=== PATIENT | female | born 1940 | race Caucasian/White ===

== ENCOUNTER 2020-01-07 20:29 | Observation (INO) | payer OTHER ==
--- NOTE | 2020-01-08 00:41 | ER ---
Nurse's Notes [facility] Name: Patsy Tai Age: 79 yrs Sex: Female : 1940 Arrival Date: 01/07/2020 Time: 20:31 Bed 20 Private MD: Diagnosis: Fall on same level from slipping, tripping and stumbling;Effusion, right knee;Pain in unspecified knee-bilateral;Pain in right hip Presentation: 01/06 21:00 Chief complaint: Patient states: she fell on to a deck getting out of a boat. C/O R hip ah pain and lisandro knee pain. Coronavirus screen: Proceed with normal triage. Patient denies a cough. Patient denies shortness of breath or difficulty breathing. Patient denies measured and/or subjective temperature greater than 100.4F prior to today's visit. Patient denies travel on a cruise ship or to a country the [facility] currently lists as an affected area. Patient denies contact with known and/or suspected case of COVID-19. Ebola Screen: No symptoms or risks identified at this time. Initial Sepsis Screen: Does the patient meet any 2 criteria? No. Patient's initial sepsis screen is negative. Does the patient have a suspected source of infection? No. Patient's initial sepsis screen is negative. Risk Assessment: Do you want to hurt yourself or someone else? Patient reports no desire to harm self or others. Onset of symptoms was January 07, 2020. 21:00 Method Of Arrival: Wheelchair ah 21:00 Acuity: VALERIA 3 ah Historical: - Allergies: 21:07 Codeine; 21:07 Percodan; 21:07 Darvon; 21:07 Darvocet-N 100; 21:07 tramadol; 21:07 Hydrocodone-Acetaminophen; 21:07 Ancef; 21:07 Fentanyl; - PMHx: 21:07 Atrial Fib; Diabetes - IDDM; Fibromyalgia; - PSHx: 21:07 Hysterectomy; Appendectomy; cardiac stents x10; - Immunization history:: Adult Immunizations up to date. - Social history:: Smoking status: Patient denies any tobacco usage or history of. Patient uses alcohol, occasionally. Patient/guardian denies using street drugs. Screenin:32 Abuse screen: Denies threats or abuse. Nutritional screening: No deficits noted. ea Tuberculosis screening: No symptoms or risk factors identified. Fall Risk Fall in past 12 months (25 points). Assessment: 22:31 Reassessment: Returned from Radiology. ea 22:44 General: Appears in no apparent distress. Behavior is calm, cooperative, appropriate ea for age. Pain: Denies pain. Neuro: Level of Consciousness is awake, alert, obeys commands, Oriented to person, place, time, situation. Cardiovascular: Patient's skin is warm and dry. Respiratory: Airway is patent Respiratory effort is even, unlabored, Respiratory pattern is regular, symmetrical. Derm: Skin is pink, warm \T\ dry. 23:40 Reassessment: Patient and/or family updated on plan of care and expected duration. Pain ea level reassessed. Patient is alert, oriented x 3, equal unlabored respirations, skin warm/dry/pink. Returned from CT. 01/07 00:02 Reassessment: Patient and/or family updated on plan of care and expected duration. Pain ea level reassessed. Patient is alert, oriented x 3, equal unlabored respirations, skin warm/dry/pink. 01:55 Reassessment: Patient and/or family updated on plan of care and expected duration. Pain ea level reassessed. Patient is alert, oriented x 3, equal unlabored respirations, skin warm/dry/pink. Pt admitted to ER hold. 06:20 Reassessment: Patient and/or family updated on plan of care and expected duration. Pain ea level reassessed. Patient is alert, oriented x 3, equal unlabored respirations, skin warm/dry/pink. Report given to Deborah MATAMOROS, pt admitted to second floor, left ED via wheelchair per tech, tolerating well. Vital Signs: 01/06 21:00 BP 163 / 62; Pulse 69; Resp 20; Temp 98.3; Pulse Ox 92% on R/A; Weight 167.38 kg; Height 5 ft. 5 in. (165.10 cm); 22:45 BP 151 / 62; Pulse 63; Resp 18; Pulse Ox 97% on R/A; ea 23:00 BP 155 / 60; Pulse 69; Resp 18; Pulse Ox 98% on R/A; ea 01/07 00:30 BP 173 / 72; Pulse 62; Resp 18; Pulse Ox 98% ; ea 01/06 21:00 Body Mass Index 61.40 (167.38 kg, 165.10 cm) ED Course: 01/06 20:31 Patient arrived in ED. cf2 20:40 Maximo Wall PA is PHCP. cp 20:40 Sanford Zhang MD is Attending Physician. cp 20:59 Rahel Braswell, RN is Primary Nurse. 21:02 Triage completed. 21:34 Assisted to bedside commode. Cleaned of incontinence. sg 22:24 XRAY Knee LEFT 3 view In Process Unspecified. EDMS 22:24 XRAY Knee RIGHT 3 view In Process Unspecified. EDMS 22:24 XRAY Hip RIGHT 2 view In Process Unspecified. EDMS 22:32 Arm band placed on right wrist. Patient placed in an exam room, on a stretcher, on ea pulse oximetry. 22:32 Patient has correct armband on for positive identification. Bed in low position. Call ea light in reach. 23:45 CT Pelvis wo Cont In Process Unspecified. EDMS 23:45 Knee Right Wo Cont In Process Unspecified. EDMS 01/07 00:40 Jordon Sierra MD is Referral Physician. cp 01:10 Madonna Del Rosario MD is Hospitalizing Provider. cp 01:55 No provider procedures requiring assistance completed. Inserted saline lock: 22 gauge ea in left forearm, using aseptic technique. Patient admitted, IV remains in place. 04:53 Urine Microscopic Only Sent. oe Administered Medications: No medications were administered Outcome: 00:41 Discharge ordered by MD. cp 01:11 Decision to Hospitalize by Provider. cp 01:55 Admitted to ER Hold. Please see [facility] for further documentation. ea 01:55 Condition: stable 01:55 Instructed on the need for admit. 06:21 Patient left the ED. ea Signatures: Dispatcher [employer] EDMS Felipe Hathaway RN SHILOH Maximo Wall PA PA cp Espinosa, Orlando oe Antunez, Elena, RN RN Heather Oquendo cf2 Rahel Braswell, RN RN
--- NOTE | 2020-01-08 00:42 | EDPHYS ---
Physician Documentation [facility] Name: Patsy Tai Age: 79 yrs Sex: Female : 1940 Arrival Date: 01/07/2020 Time: 20:31 Bed 20 Private MD: ED Physician Sanford Zhang HPI: 01/06 21:05 This 79 yrs old Female presents to ER via Wheelchair with complaints of Fall cp Injury, Hip Pain, Knee Pain. 21:05 Details of fall: The patient fell from an upright position, while walking, and struck cp wooden deck. 21:05 Onset: The symptoms/episode began/occurred today. Associated injuries: The patient cp sustained right hip and right knee, decreased range of motion, painful injury, left knee. Patient reports she lost her balance getting off boat onto dock. Fell, landing on left leg. Patient complains of left knee twisting with fall. Historical: - Allergies: 21:07 Codeine; ah 21:07 Percodan; ah 21:07 Darvon; ah 21:07 Darvocet-N 100; 21:07 tramadol; 21:07 Hydrocodone-Acetaminophen; 21:07 Ancef; 21:07 Fentanyl; - PMHx: 21:07 Atrial Fib; Diabetes - IDDM; Fibromyalgia; - PSHx: 21:07 Hysterectomy; Appendectomy; cardiac stents x10; - Immunization history:: Adult Immunizations up to date. - Social history:: Smoking status: Patient denies any tobacco usage or history of. Patient uses alcohol, occasionally. Patient/guardian denies using street drugs. ROS: 21:10 Constitutional: Negative for body aches, chills, fever. cp 21:10 Eyes: Negative for injury, pain, redness, and discharge. cp 21:10 Cardiovascular: Negative for chest pain. 21:10 Respiratory: Negative for shortness of breath, wheezing. 21:10 Back: Negative for worsening pain. 21:10 MS/extremity: Positive for injury or acute deformity, decreased range of motion, pain, of the left hip and left knee and right knee, Negative for deformity, paresthesias. 21:10 Neuro: Negative for altered mental status, loss of consciousness, syncope. 21:10 All other systems are negative. Exam: 21:20 Constitutional: The patient appears in no acute distress, alert, awake, cp non-diaphoretic, non-toxic, well developed, well nourished, morbidly obese 21:20 Head/Face: Normocephalic, atraumatic. cp 21:20 Eyes: Periorbital structures: appear normal, Conjunctiva: normal, no exudate, no injection, Lids and lashes: appear normal, bilaterally. 21:20 ENT: External ear(s): are unremarkable, Nose: is normal, Mouth: Lips: moist, Oral mucosa: moist, Posterior pharynx: Airway: no evidence of obstruction, patent. 21:20 Neck: ROM/movement: is normal, is supple, without pain, no range of motions limitations. 21:20 Chest/axilla: Inspection: normal. 21:20 Cardiovascular: Rate: normal, Rhythm: regular. 21:20 Respiratory: the patient does not display signs of respiratory distress, Respirations: normal, no use of accessory muscles, no retractions, labored breathing, is not present, Breath sounds: are clear throughout, no decreased breath sounds. 21:20 Abdomen/GI: Inspection: obese Palpation: abdomen is soft and non-tender, in all quadrants. 21:20 Back: pain, no change from chronic pain, ROM is normal. 21:20 Musculoskeletal/extremity: Joints: the right hip displays pain at rest, painful range of motion, the right knee displays pain at rest, painful range of motion, swelling, tenderness, the left kneedisplays medial joint tenderness, Weight bearing: can bear weight with assistance only, uses walker. 21:20 Skin: cellulitis, is not appreciated, no rash present. 21:20 Neuro: Orientation: to person, place \T\ time. Mentation: is normal, Motor: moves all fours, strength is normal, Sensation: no obvious gross deficits. 01/07 01:30 ECG was reviewed by the Attending Physician. cp Vital Signs: 01/06 21:00 BP 163 / 62; Pulse 69; Resp 20; Temp 98.3; Pulse Ox 92% on R/A; Weight 167.38 kg; Height 5 ft. 5 in. (165.10 cm); 22:45 BP 151 / 62; Pulse 63; Resp 18; Pulse Ox 97% on R/A; ea 23:00 BP 155 / 60; Pulse 69; Resp 18; Pulse Ox 98% on R/A; ea 01/07 00:30 BP 173 / 72; Pulse 62; Resp 18; Pulse Ox 98% ; ea 01/06 21:00 Body Mass Index 61.40 (167.38 kg, 165.10 cm) ah MDM: 01/06 20:43 Patient medically screened. cp 21:30 Differential diagnosis: fracture, multiple trauma, sprain, strain. cp 01/07 00:50 ED course: VSS. Discussed results of xrays and CT that were negative for fracture with cp patient and daughter who was on phone. Patient and daughter expressed concerned about patient not being to bear weight on right leg and possibly falling if discharged. Daughter unwilling to come to ED for patient to be discharged. Will discuss possible admission with DR Del Rosario. 01:00 Physician consultation: Madonna Del Rosario MD was called at 01:00, was contacted at 01:00, cp regarding admission, would like further tests performed, labs drawn. 01:10 Data reviewed: vital signs, nurses notes, lab test result(s), EKG, radiologic studies, cp CT scan, plain films. 01/07 01:02 Order name: Comprehensive Metabolic Panel [facility] 01/07 01:02 Order name: Comprehensive Metabolic Panel [facility] 01/07 01:02 Order name: Creatine Phosphokinase [facility] 01/07 01:02 Order name: Creatine Phosphokinase [facility] 01/07 01:02 Order name: Creatine Phosphokinase [facility] 01/07 01:02 Order name: Creatine Phosphokinase [facility] 01/07 01:02 Order name: Creatine Phosphokinase [facility] 01/07 01:02 Order name: Lipid Profile [facility] 01/07 01:02 Order name: Lipid Profile [facility] 01/07 01:02 Order name: Troponin I [facility] 01/07 01:02 Order name: Troponin I [facility] 01/07 01:03 Order name: CBC with Automated Diff [facility] 01/07 01:03 Order name: CBC with Automated Diff [facility] 01/07 01:03 Order name: Protime (+INR) [facility] 01/06 21:04 Order name: XRAY Knee LEFT 3 view 01/06 21:04 Order name: XRAY Knee RIGHT 3 view 01/07 01:03 Order name: Protime (+INR) [facility] 01/07 01:03 Order name: PTT, Activated Partial Thromb EDPR 01/07 01:03 Order name: PTT, Activated Partial Thromb EDMS 01/07 01:04 Order name: Basic Metabolic Panel; Complete Time: 02:13 cp 01/07 02:13 Interpretation: Normal except: GLUC 221; GFR 64. cp 01/07 01:04 Order name: CBC with Diff; Complete Time: 01:55 cp 01/07 01:55 Interpretation: Normal except: RBC 5.28; HGB 15.4; HCT 46.4; ISAIAH% 77.3; LYM% 13.3. cp 01/07 01:04 Order name: LFT's; Complete Time: 02:13 cp 01/07 02:13 Interpretation: Normal except: GLOB 4.2; A/G 0.9. cp 01/07 01:04 Order name: Magnesium; Complete Time: 02:13 cp 01/07 01:04 Order name: NT PRO-BNP; Complete Time: 02:13 cp 01/07 01:04 Order name: PT-INR; Complete Time: 01:55 cp 01/07 01:04 Order name: Troponin (emerg Dept Use Only); Complete Time: 02:13 cp 01/07 02:13 Interpretation: TROPED < 0.02; Reviewed. cp 01/07 01:04 Order name: CK; Complete Time: 02:13 cp 01/07 01:04 Order name: Urine Microscopic Only; Complete Time: 06:00 01/07 04:52 Order name: Urine Dipstick--Ancillary (enter results) 2 01/07 05:28 Order name: Urine Dipstick-Ancillary; Complete Time: 06:00 EDPR 01/06 21:04 Order name: XRAY Hip RIGHT 2 view 01/06 22:44 Order name: CT Pelvis wo Cont cp 01/06 22:49 Order name: Knee Right Wo Cont EDMS 01/07 00:39 Order name: Avni wrap-joint: right knee; Complete Time: 01:11 cp 01/07 01:03 Order name: CONS Pharmacy Consult EDPR 01/07 01:03 Order name: Heart Healthy EDPR 01/07 01:03 Order name: EKG Electrocardiogram EDPR 01/07 01:03 Order name: EKG Electrocardiogram EDPR 01/07 01:04 Order name: EKG; Complete Time: 01:05 cp 01/07 01:04 Order name: Cardiac monitoring; Complete Time: 01:56 cp 01/07 01:04 Order name: EKG - Nurse/Tech; Complete Time: : cp 01/07 01:04 Order name: IV Saline Lock; Complete Time: cp 01/07 01:04 Order name: Labs collected and sent; Complete Time: cp 01/07 01:04 Order name: O2 Per Protocol; Complete Time: cp 01/07 01:04 Order name: O2 Sat Monitoring; Complete Time: cp 01/07 01:04 Order name: Urine Dipstick-Ancillary (obtain specimen); Complete Time: 04:52 cp EC:30 Rate is 69 beats/min. Rhythm is regular. [place] interval is prolonged at 226 msec. QRS cp interval is normal. QT interval is normal. T waves are Inverted in lead V2. Interpreted by me. Reviewed by me. Administered Medications: No medications were administered Disposition: 01/08/20 01:11 Hospitalization ordered by Madonna Del Rosario for Observation. Preliminary diagnosis are Fall on same level from slipping, tripping and stumbling, Effusion, right knee, Pain in unspecified knee - bilateral, Pain in right hip. - Bed requested for Telemetry/MedSurg (observation). - Status is Observation. ea - Condition is Stable. - Problem is new. - Symptoms are unchanged. Addendum: 01/12/2020 19:09 Co-signature as Attending Physician, Sanford ruiz Signatures: Dispatcher [employer] EDPR Laura Castro RN RN mw Lam, Pin, MD MD pkl Page, Corey PA Magaly Frances cp, RN RN ea Harris, Amy, RN RN Corrections: (The following items were deleted from the chart) 01/06 21:26 21:25 Test interpretation: by ED physician or midlevel provider: xrays of right foot cp negative for fracture, cp 22:48 22:44 CT RIGHT KNEE WO CONTRAST ordered. EDPR EDPR 23:43 21:05 Details of fall: The patient fell from an upright position, while walking, cp cp 01/07 00:39 00:12 Knee Immobilizer ordered. cp cp 01:05 00:41 01/08/2020 00:41 Discharged to Home. Impression: Effusion, right knee; Pain in cp right hip; Pain in unspecified knee - bilateral; Fall on same level from slipping, tripping and stumbling. Condition is Stable. Forms are Medication Reconciliation Form, Thank You Letter, Antibiotic Education, Prescription Opioid Use. Follow up: Jordon Sierra; When: 2 - 3 days; Reason: right knee injury. Problem is new. Symptoms have improved. cp 01:16 01:11 Hospitalization Ordered by Madonna Del Rosario MD for Observation. Preliminary mw diagnosis is Fall on same level from slipping, tripping and stumbling; Effusion, right knee; Pain in unspecified knee - bilateral; Pain in right hip. Bed requested for Telemetry/MedSurg (observation). Status is Observation. Condition is Stable. Problem is new. Symptoms are unchanged. cp 05:26 01:16 01/08/2020 01:11 Hospitalization Ordered by Madonna Del Rosario MD for Observation. mw Preliminary diagnosis is Fall on same level from slipping, tripping and stumbling; Effusion, right knee; Pain in unspecified knee - bilateral; Pain in right hip. Bed requested for [facility] ER HOLD. Status is Observation. Condition is Stable. Problem is new. Symptoms are unchanged. mw 06:21 05:26 01/08/2020 01:11 Hospitalization Ordered by Madonna Del Rosario MD for Observation. ea Preliminary diagnosis is Fall on same level from slipping, tripping and stumbling; Effusion, right knee; Pain in unspecified knee - bilateral; Pain in right hip. Bed requested for Telemetry/MedSurg (observation). Status is Observation. Condition is Stable. Problem is new. Symptoms are unchanged.
[2020-01-08] MEDS ORDERED: ACETAMINOPHEN 500 MG TAB PO PRN (00:58)
[2020-01-08] MEDS ORDERED: ONDANSETRON 4 MG/2 ML VIAL IV PRN (00:58)
[2020-01-08] MEDS ORDERED: NA CHLORIDE 0.9% 1,000 ML IV SCH (01:00)
[2020-01-08 01:37] LABS: Basophils % 0.8 % (0-1.3); Hematocrit 46.4 % (36.0-45.0); Lymphocytes % 13.3 % (15.3-44.8); MPV 8.4 fL (7.6-11.3); RBC Red Blood Cell Count 5.28 M/uL (3.86-4.86)
[2020-01-08 01:45] LABS: Protime INR 0.98
[2020-01-08 01:58] LABS: ALT/SGPT 23 U/L (12-78); AST/SGOT 17 U/L (15-37); Albumin 3.6 g/dL (3.4-5.0); Alkaline Phosphatase 75 U/L (45-117); BUN Blood Urea Nitrogen 12 mg/dL (7-18); Bicarbonate 25 mmol/L (21-32); Bilirubin Direct 0.2 mg/dL (0-0.2); Bilirubin Total 0.7 mg/dL (0.2-1.0); Creatine Phosphokinase 83 U/L (26-192); Glucose Level 221 mg/dL (74-106); Magnesium 1.9 mg/dL (1.8-2.4); NT PRO-BNP 350 pg/mL (<450); Potassium 4.2 mmol/L (3.5-5.1); Protein, Total 7.8 g/dL (6.4-8.2); Sodium Level 140 mmol/L (136-145); Troponin (Emerg Dept Use Only) < 0.02 ng/mL (0.0-0.045)
[2020-01-08] MEDS ORDERED: ACETAMINOPHEN 500 MG TAB ONE (02:39)
[2020-01-08] MEDS ORDERED: NA CHLORIDE 0.9% 1,000 ML ONE (05:15)
[2020-01-08] MEDS ORDERED: MORPHINE 2 MG/ML SYR ONE (05:15)
[2020-01-08] MEDS: MORPHINE 2 MG/ML SYR IV PRN ×2 (05:20→17:03)
[2020-01-08 05:27] LABS: Urine Blood TRACE (NEG); Urine Glucose TRACE (NEG); Urine Protein NEGATIVE (NEG); Urine Specific Gravity >1.030 (1.005-1.030); Urine pH 5.5 (5.0-7.0)
[2020-01-08 05:29] LABS: Urine Bacteria LOADED /HPF (<20); Urine Culture Reflex Order REFLEXED; Urine RBC <5 /HPF (NONE SEEN)
[2020-01-08] MEDS ORDERED: ONDANSETRON 4 MG/2 ML VIAL ONE (05:30)
[2020-01-08 06:04] LABS: Creatine Phosphokinase 82 U/L (26-192); HDL Cholesterol 38 mg/dL (40-60); LDL Cholesterol, Calculated 81 (<130); Troponin I < 0.02 ng/mL (0.0-0.045)
[2020-01-08 06:52] VITALS: BMI 59.5
[2020-01-08] MEDS ORDERED: PNEUMOCOCCAL VACCINE 0.5 ML IMVAC ONE (08:00)
[2020-01-08] MEDS ORDERED: PRAMIPEXOLE 0.25 MG TAB PO PRN (08:03)
--- NOTE | 2020-01-08 08:10 | P.HP ---
Patient History Date of Service: 01/08/20 Reason for admission: Status post fall with left hip pain and nonambulatory History of Present Illness: Patient is 79-year-old female who recently moved in with her daughter from in assisted living. She was no longer able to care for herself even in the assisted living component sore daughter brought her home to help her. She had been doing okay getting along on her scooter until she fell yesterday. She fell on her left hip and was having severe pain. She was not able to ambulate any longer. She normally is able to ambulate about 10-20 feet. However, she is not able to move since the fall. Her daughter was not able to help her at the house so she brought her into the emergency room for evaluation. Patient had multiple diagnostic studies and there was no fracture noted. However, patient did have some labs which indicated a UTI. At this time, patient be admitted to the hospital for pain control and physical therapy. Patient will also need placement either an inpatient rehab or long-term facility. Continue with IV antibiotic therapy as well. Await physical therapy and case management assistance in patient's care Allergies aspirin [From Percodan] Allergy (Verified 01/08/20 02:05) Anaphylaxis cefazolin [From Ancef] Allergy (Verified 01/08/20 02:05) Anaphylaxis codeine Allergy (Verified 01/08/20 02:05) Anaphylaxis fentanyl Allergy (Verified 01/08/20 02:05) Anaphylaxis hydrocodone Allergy (Verified 01/08/20 02:05) Anaphylaxis oxycodone [From Percodan] Allergy (Verified 01/08/20 02:05) Anaphylaxis propoxyphene [From Darvon] Allergy (Verified 01/08/20 02:05) Anaphylaxis tramadol Allergy (Verified 01/08/20 02:05) Anaphylaxis Home Medications: Alirocumab [Praluent Pen] 75 mg SQ SEECOM 01/08/20 Aspirin [Aspirin EC 325 MG] 325 mg PO DAILY 01/08/20 Donepezil HCl [Aricept] 10 mg PO DAILY 01/08/20 Ergocalciferol (Vitamin D2) [Vitamin D2] 50,000 unit PO SEECOM 01/08/20 Insulin Lispro [Humalog Kwikpen U-100] 60 unit SQ AC 01/08/20 Levothyroxine [Synthroid] 75 mcg PO [id number] 01/08/20 Levothyroxine [Synthroid] 100 mcg PO [id number] 01/08/20 Metoprolol Succinate [Toprol Xl] 25 mg PO BID 01/08/20 Pramipexole [Mirapex] 0.5 mg PO BEDTIME PRN 01/08/20 - Past Medical/Surgical History -: Type 2 diabetes -: Hypertension -: Restless leg syndrome -: Dementia -: Atrial fibrillation -: Coronary artery disease -: Hysterectomy -: Appendectomy -: Cardiac catheterization with stent placement times 10 - Family History Father Family History: Reviewed- Non-Contributory - Social History Smoking Status: Never smoker Alcohol use: No CD- Drugs: No Review of Systems 10-point ROS is otherwise unremarkable Physical Examination - Vital Signs Temperature: 98.4 F Blood Pressure: 164/74 Pulse: 72 Respirations: 20 Pulse Ox (%): 93 - Physical Exam General: Alert, In no apparent distress, Oriented x3 HEENT: Atraumatic, PERRLA, Mucous membr. moist/pink, EOMI, Sclerae nonicteric Neck: Supple, 2+ carotid pulse no bruit, No LAD, Without JVD or thyroid abnormality Respiratory: Clear to auscultation bilaterally, Normal air movement Cardiovascular: Regular rate/rhythm, Normal S1 S2, Systolic murmur Gastrointestinal: Normal bowel sounds, Soft and benign, Non-distended, No tenderness Musculoskeletal: No clubbing, No tenderness, Swelling Integumentary: No rashes Neurological: Normal speech, Normal tone, Sensation intact, Cranial nerves 3-12 intact, Abnormal gait, Abnormal strength, Abnormal affect Lymphatics: No axilla or inguinal lymphadenopathy - Studies Laboratory Data (last 24 hrs) 01/08/20 01:28: PT 11.6, INR 0.98 01/08/20 01:28: WBC 7.5, Hgb 15.4 H, Hct 46.4 H, Plt Count 169 01/08/20 01:28: Sodium 140, Potassium 4.2, BUN 12, Creatinine 0.85, Glucose 221 H, Magnesium 1.9, Total Bilirubin 0.7, AST 17, ALT 23, Alkaline Phosphatase 75 Assessment & Plan - Problems (Diagnosis) (1) Status post fall Current Visit: Yes Status: Acute (2) Intractable pain Current Visit: Yes Status: Acute (3) Hip pain, left Current Visit: Yes Status: Acute (4) Coronary artery disease Current Visit: Yes Status: Acute (5) Atrial fibrillation Current Visit: Yes Status: Acute (6) Dementia Current Visit: Yes Status: Acute (7) Acute UTI Current Visit: Yes Status: Acute - Plan Plan: 1. Pain control 2. Physical therapy consultation 3. Strict blood pressure and blood sugar control 4. Resume cardiac meds 5. IV antibiotic therapy 6. Continue medication for restless leg syndrome 7. GI and DVT prophylaxis Discharge Plan: Home Plan to discharge in: 48 Hours - Advance Directives Does patient have a Living Will: No Does patient have a Durable POA for Healthcare: No - Code Status/Comfort Care Code Status Assessed: Yes Code Status: Full Code Critical Care: No Time Spent Managing PTS Care (In Minutes): 45
--- NOTE | 2020-01-08 08:26 | RAD REPORT ---
EXAM DESCRIPTION: RAD - Knee Right 3 View - 01/07/2020 10:24 pm CLINICAL HISTORY: Right knee pain status post injury FINDINGS: A small to moderate joint effusion. 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 No fracture or dislocation seen. If patient continues have symptoms to suggest an occult fracture, ligamentous or meniscal injury then MRI would be recommended
--- NOTE | 2020-01-08 08:27 | RAD REPORT ---
EXAM DESCRIPTION: RAD - Knee Left 3 View - 01/07/2020 10:24 pm CLINICAL HISTORY: Left knee pain status post injury FINDINGS: No fracture or dislocation is seen. Mild to moderate medial joint space narrowing.
--- NOTE | 2020-01-08 08:28 | RAD REPORT ---
EXAM DESCRIPTION: RAD - Hip Right 2 View - 01/07/2020 10:24 pm CLINICAL HISTORY: Right hip pain FINDINGS: No fracture or dislocation is seen. Moderate osteoarthritis involves the right hip
[2020-01-08] MEDS ORDERED: CEFTRIAXONE 1 GM/NS 50 ML 1 GM/50 ML BAG IV SCH (09:00)
[2020-01-08] MEDS ORDERED: HOME MED 1 EA UNK (Aspirin [Aspirin Ec 325 Mg] 325 MG) PO SCH (09:00)
[2020-01-08] MEDS ORDERED: DRISDOL (VITAMIN D=ERGOCALCIFEROL) 50000 UNIT CAP PO SCH (09:00)
--- NOTE | 2020-01-08 09:23 | RAD REPORT ---
EXAM DESCRIPTION: - Pelvis Wo Cont - 01/08/2020 5:14 am CLINICAL HISTORY: The patient is 79 years old and is Female; right hip pain TECHNIQUE: Axial computed tomography images of the pelvis without intravenous contrast. Sagittal a nd coronal reformatted images were created and reviewed. This CT exam was performed using one or mo re of the following dose reduction techniques: automated exposure control, adjustment of the mA and /or kV according to patient size, and/or use of iterative reconstruction technique. COMPARISON: No relevant prior studies available. FINDINGS: LIMITATIONS: Suboptimal study secondary to artifact related to patient body habitus. BOWEL: Unremarkable. No obstruction. No mucosal thickening. APPENDIX: No findings to suggest acute appendicitis. INTRAPERITONEAL SPACE: Unremarkable. No free air. No significant fluid collection. BLADDER: Unremarkable. No stones. REPRODUCTIVE: Unremarkable as visualized. BONES/JOINTS: The femoral heads are well located. The SI joints and pubic symphysis are intact. There are degenerative changes of the spine. Minimal degenerative change of the bilateral hips is not ed. There is no acute fracture or dislocation. SOFT TISSUES: The soft tissues are normal. VASCULATURE: Unremarkable. No lower abdominal aortic aneurysm. LYMPH NODES: Unremarkable. No enlarged lymph nodes. IMPRESSION: No evidence of fracture or dislocation. Electronically signed by: Maria Antonia Weaver MD 01/08/2020 12:03 AM CDT Due to temporary technical issues with the PACS/Fluency reporting system, reports are being signed by the in house radiologist as a courtesy to ensure prompt reporting. The interpreting radiologist is f ully responsible for the content of the
--- NOTE | 2020-01-08 09:27 | RAD REPORT ---
EXAM DESCRIPTION: Alisia Dubois Cont01/08/2020 5:14 am CLINICAL HISTORY: The patient is 79 years old and is Female; fall, knee pain TECHNIQUE: Axial computed tomography images of the right knee without intravenous contrast. Sagitt al and coronal reformatted images were created and reviewed. This CT exam was performed using one o r more of the following dose reduction techniques: automated exposure control, adjustment of the mA and/or kV according to patient size, and/or use of iterative reconstruction technique. COMPARISON: No relevant prior studies available. FINDINGS: BONES/JOINTS: A suprapatellar joint effusion is present. Degenerative change of the kn ee is noted with tricompartmental joint space narrowing, most prominent along the medial compartment. Spurring of the bilateral tibial plateaus and femoral condyles is noted. There is no acute fracture or dislocation. SOFT TISSUES: Unremarkable. IMPRESSION: Degenerative change of the knee with associated joint effusion. Electronically signed by: Maria Antonia Weaver MD 01/08/2020 12:06 AM CDT Due to temporary technical issues with the PACS/Fluency reporting system, reports are being signed by the in house radiologist as a courtesy to ensure prompt reporting. The interpreting radiologist is f ully responsible for the content of the report.
[2020-01-08] MEDS: METOPROLOL XL 25 MG TAB PO SCH ×2 (10:23→21:17)
[2020-01-08] MEDS: ASPIRIN EC 325 MG TABLET PO SCH (10:23)
[2020-01-08] MEDS: levoFLOXacin 500 MG TAB PO SCH (10:23)
[2020-01-08] MEDS ORDERED: INSULIN LISPRO 100 UNIT/1 ML SQ SCH (11:30)
[2020-01-08] MEDS: HUMALOG MIX SQ SCH ×2 (12:17→16:08)
[2020-01-08] MEDS: FUROSEMIDE 40 MG/4 ML VIAL IV ONE ×2 (13:50→16:07)
--- NOTE | 2020-01-08 13:53 | P.PN ---
Subjective Date of Service: 01/08/20 Chief Complaint: Status post fall with left hip pain and nonambulatory Subjective: No new changes, No C/O voiced Physical Examination - Vital Signs Temperature: 98.4 F Blood Pressure: 164/74 Pulse: 72 Respirations: 20 Pulse Ox (%): 93 - Physical Exam General: Alert, In no apparent distress, Oriented x3 HEENT: Atraumatic, Normocephalic Neck: Supple, 2+ carotid pulse no bruit, JVD not distended Respiratory: Normal air movement, Crackles/rales Cardiovascular: Normal pulses, Regular rate/rhythm, Normal S1 S2 Gastrointestinal: Normal bowel sounds, Soft and benign Musculoskeletal: Swelling Integumentary: No rashes, No breakdown Neurological: Normal speech, Normal strength at 5/5 x4 extr, Normal tone - Studies Laboratory Data (last 24 hrs) 01/08/20 01:28: PT 11.6, INR 0.98 01/08/20 01:28: WBC 7.5, Hgb 15.4 H, Hct 46.4 H, Plt Count 169 01/08/20 01:28: Sodium 140, Potassium 4.2, BUN 12, Creatinine 0.85, Glucose 221 H, Magnesium 1.9, Total Bilirubin 0.7, AST 17, ALT 23, Alkaline Phosphatase 75 Assessment & Plan - Problems (Diagnosis) (1) CHF exacerbation Current Visit: Yes Status: Acute (2) Acute UTI Current Visit: Yes Status: Acute (3) Atrial fibrillation Current Visit: Yes Status: Acute (4) Intractable pain Current Visit: Yes Status: Acute Physician Review: Patient Assessed, Agree with Above Assessment and Plan Physician Review Additional Text: Impression /Plan UTI-follow pending urine culture, continue empirical antibiotics - given allergy with switched to Levaquin HTN -CONTINUE BLOOD PRESSURE REGIMEN LOWER EXTREMITY EDEMA/MIKE IS ACTRESS/CHRONIC HOME O2 USE-LIKELY DUE TO DIASTOLIC CHF -WILL RESTART DIURETICS THAT GIVE LASIX 40 MG X1 Chronic pain syndrome-continue pain regimen DVT prophylaxis-subcutaneous heparin
[2020-01-08] MEDS: AMIODARONE HCL 200 MG TAB PO SCH (16:07)
[2020-01-08] MEDS: AMLODIPINE 5 MG TAB PO SCH (16:07)
--- NOTE | 2020-01-08 20:12 | EKG ---
Test Date: 2020-01-08 Test Time: 08:10:49 Slurry Man: YOLANDA MEASUREMENT RESULTS: Intervals: Rate: 63 OR: 214 QRSD: 72 QT: 444 QTc: 454 [place]: P: OR: 214 QRS: -56 T: 72 INTERPRETIVE STATEMENTS: Sinus rhythm with 1st degree AV block Left axis deviation Low voltage QRS Septal infarct, age undetermined Possible Lateral infarct, age undetermined Abnormal ECG Compared to ECG 01/08/2020 01:21:50 Low QRS voltage now present Myocardial infarct finding still present Electronically Signed On 01-08-20 20:10:59 CDT by Stevenson Leary
--- NOTE | 2020-01-08 20:14 | EKG ---
Test Date: 2020-01-08 Test Time: 01:21:50 Warehouse Checker: SWG MEASUREMENT RESULTS: Intervals: Rate: 69 TX: 226 QRSD: 86 QT: 412 QTc: 441 [place]: P: 16 TX: 226 QRS: -49 T: 58 INTERPRETIVE STATEMENTS: Sinus rhythm with 1st degree AV block Left axis deviation Septal infarct, age undetermined Possible Lateral infarct, age undetermined Abnormal ECG No previous ECG available for comparison Electronically Signed On 01-08-20 20:11:08 CDT by Stevenson Leary
[2020-01-08] MEDS: DONEPEZIL HCL 5 MG TAB PO SCH (21:17)
[2020-01-08] MEDS: APIXABAN 5 MG TABLET PO SCH (21:17)
[2020-01-09 04:26] LABS: Protime INR 1.26
[2020-01-09 04:27] LABS: Absolute Lymphocytes (CBC) 1.4 K/uL (0.7-4.9); Basophils % 0.6 % (0-1.3); Hematocrit 37.6 % (36.0-45.0); MPV 8.4 fL (7.6-11.3); RBC Red Blood Cell Count 4.24 M/uL (3.86-4.86)
[2020-01-09 04:32] LABS: Albumin 2.9 g/dL (3.4-5.0); Bilirubin Total 0.6 mg/dL (0.2-1.0); Potassium 4.2 mmol/L (3.5-5.1); Protein, Total 6.3 g/dL (6.4-8.2)
[2020-01-09] MEDS: LEVOTHYROXINE SOD 0.075 MG TAB PO SCH (05:49)
[2020-01-09] MEDS: LEVOTHYROXINE SOD 0.1 MG TAB PO SCH (05:49)
[2020-01-09] MEDS: HUMALOG MIX SQ SCH ×3 (07:30→16:30)
[2020-01-09] MEDS: METOPROLOL XL 25 MG TAB PO SCH ×2 (08:13→20:58)
[2020-01-09] MEDS: APIXABAN 5 MG TABLET PO SCH ×2 (08:13→20:59)
[2020-01-09] MEDS: AMIODARONE HCL 200 MG TAB PO SCH (08:13)
[2020-01-09] MEDS: levoFLOXacin 500 MG TAB PO SCH (08:13)
[2020-01-09] MEDS: AMLODIPINE 5 MG TAB PO SCH (08:14)
[2020-01-09] MEDS: ASPIRIN EC 325 MG TABLET PO SCH (10:36)
--- NOTE | 2020-01-09 12:14 | P.PN ---
Subjective Date of Service: 01/09/20 Chief Complaint: Status post fall with left hip pain and nonambulatory Subjective: No new changes, No C/O voiced, Working w/ PT (Patient seen today, states she feels much better. -she is still not happy with being started on diuretics -noted transient decrease in O2 sat with ambulation -ambulation limited by patient complain of knee pain, physical therapy discuss with recommend inpatient acute rehab) Physical Examination - Vital Signs Temperature: 99.2 F Blood Pressure: 147/55 Pulse: 68 Respirations: 16 Pulse Ox (%): 91 - Physical Exam General: In no apparent distress, Oriented x3, Other (nc02) HEENT: Atraumatic, Normocephalic Neck: 2+ carotid pulse no bruit, JVD not distended Respiratory: Clear to auscultation bilaterally, Normal air movement Cardiovascular: Normal pulses, Regular rate/rhythm, Normal S1 S2 Gastrointestinal: Normal bowel sounds, Soft and benign, Non-distended Musculoskeletal: No clubbing, No swelling Neurological: Normal speech, Normal strength at 5/5 x4 extr External genitalia: Edema Assessment And Plan - Current Problems (Diagnosis) (1) CHF exacerbation Current Visit: Yes Status: Acute (2) Acute UTI Current Visit: Yes Status: Acute (3) Atrial fibrillation Current Visit: Yes Status: Acute (4) Intractable pain Current Visit: Yes Status: Acute Physician Review: Patient Assessed, Agree with Above Assessment and Plan Physician Review Additional Text: Impression /Plan Gram UTI-follow pending culture, continue Levaquin Weakness with gait instability-continue PT, follow case management for rehab HTN -controlled BP now Lower extremity edema/ CHRONIC HOME O2 USE-LIKELY DUE TO DIASTOLIC CHF -obtain echocardiogram -continue low-dose diuretics with Lasix 40 mg daily -fluid restriction advice and discussed with patient today -follow daily weights Chronic pain syndrome-continue pain regimen DVT prophylaxis-subcutaneous heparin Dc to SNF when bed available
[2020-01-09] MEDS ORDERED: FUROSEMIDE 40 MG TABLET PO SCH (17:00)
[2020-01-09] MEDS: DONEPEZIL HCL 5 MG TAB PO SCH (20:59)
[2020-01-10] MEDS: LEVOTHYROXINE SOD 0.075 MG TAB PO SCH (05:18)
[2020-01-10] MEDS: LEVOTHYROXINE SOD 0.1 MG TAB PO SCH (05:18)
[2020-01-10] MEDS: HUMALOG MIX SQ SCH ×3 (07:30→16:30)
[2020-01-10] MEDS: ASPIRIN EC 325 MG TABLET PO SCH (08:43)
[2020-01-10] MEDS: APIXABAN 5 MG TABLET PO SCH (08:43)
[2020-01-10] MEDS: levoFLOXacin 500 MG TAB PO SCH (08:44)
[2020-01-10] MEDS: METOPROLOL XL 25 MG TAB PO SCH (08:44)
[2020-01-10] MEDS: AMLODIPINE 5 MG TAB PO SCH (08:44)
[2020-01-10] MEDS: AMIODARONE HCL 200 MG TAB PO SCH (08:44)
[2020-01-10] MEDS ORDERED: FUROSEMIDE 40 MG TABLET PO SCH (09:00)
[2020-01-10 09:22] VITALS: O2SAT 93
--- NOTE | 2020-01-10 12:25 | P.PN ---
Subjective Date of Service: 01/10/20 Chief Complaint: Status post fall with left hip pain and nonambulatory Subjective: No new changes, No C/O voiced -feels better, having some constipation -Refusing Lasix although states her last echo was 35% Physical Examination - Vital Signs Temperature: 98.4 F Blood Pressure: 147/66 Pulse: 60 Respirations: 18 Pulse Ox (%): 92 - Physical Exam General: Alert, In no apparent distress, Oriented x3, Obese HEENT: Atraumatic, Normocephalic, PERRLA Neck: Supple, 2+ carotid pulse no bruit Respiratory: Normal air movement, Crackles/rales Cardiovascular: Normal pulses, Regular rate/rhythm, Normal S1 S2 Gastrointestinal: Normal bowel sounds, Soft and benign Musculoskeletal: No clubbing, Swelling Integumentary: No erythema, No warmth Neurological: Normal speech, Normal tone, Sensation intact External genitalia: Edema Assessment & Plan - Problems (Diagnosis) (1) CHF exacerbation Current Visit: Yes Status: Acute (2) Acute UTI Current Visit: Yes Status: Acute (3) Atrial fibrillation Current Visit: Yes Status: Acute (4) Intractable pain Current Visit: Yes Status: Acute Physician Review: Patient Assessed, Agree with Above Assessment and Plan Physician Review Additional Text: Impression /Plan Gram UTI-urine culture with mixed karena, continue Levaquin for another 2 days Weakness with gait instability-continue PT, follow case management for rehab HTN -controlled BP now Lower extremity edema/ CHRONIC HOME O2 USE-with reported systolic CHF -follow repeat echo today -if ST low EF, continue Lasix 20 mg b.i.d. Chronic pain syndrome-continue pain regimen DVT prophylaxis-subcutaneous heparin Dc to rehab when bed available Time Spent Managing Pts Care (In Minutes): 35
--- NOTE | 2020-01-10 12:37 | P.DS ---
Admission Date: 01/08/20 Discharge Date: 01/10/20 Disposition: TRANSFER TO INPATIENT REHAB Discharge Condition: FAIR Reason for Admission: Status post fall with left hip pain and nonambulatory - Problems (1) CHF exacerbation Current Visit: Yes Status: Acute (2) Acute UTI Current Visit: Yes Status: Acute (3) Atrial fibrillation Current Visit: Yes Status: Acute (4) Intractable pain Current Visit: Yes Status: Acute Hospital Course: Patient with past medical history of HTN, diabetes mellitus on insulin, atrial fibrillation on chronic anticoagulation, dementia, history of systolic CHF with self-reported echo from 4 years ago by a audio tape librarian out of town of 35%, she states she was put on diuretics but she said stopped taking due to feeling unwell. She was admitted now for presumed weakness after having a fall at home. On admission, a urinalysis was suggestive of UTI. She was started on empirical antibiotics with Levaquin. Her urine culture grew mixed karena. Antibiotics was continued. Patient was noted with recurrent hypoxia with minimize action with low O2 sat down to the 80s. Clinically she was noted with fluid overload with 2+ pedal edema as well as bilateral basal crepitation, she was started on Lasix which she repeatedly kept refusing. She was started on physical therapy and has been accepted to rehab. Echocardiogram has been obtained. Counseling and needs to take her furosemide has been discussed. Fluid restriction to less than 1.2 L per day and low-salt diet also advised Vital Signs/Physical Exam: Temp Pulse Resp BP Pulse Ox 98.4 F 60 18 147/66 H 92 01/10/20 12:25 01/10/20 12:25 01/10/20 12:25 01/10/20 12:25 01/10/20 12:25 General: Alert, In no apparent distress, Oriented x3, Obese HEENT: Atraumatic, Normocephalic, PERRLA Neck: 2+ carotid pulse no bruit, JVD not distended Respiratory: Normal air movement, Crackles/rales Cardiovascular: Normal pulses, Regular rate/rhythm, Normal S1 S2, Edema Gastrointestinal: Normal bowel sounds, Soft and benign, Non-distended, No rebound, No guarding Musculoskeletal: No clubbing, Swelling Integumentary: No rashes, No breakdown Neurological: Normal speech, Normal strength at 5/5 x4 extr, Normal tone Laboratory Data at Discharge: WBC 6.8 K/uL (4.3-10.9) 01/09/20 03:53 Hgb 12.8 g/dL (12.0-15.0) D 01/09/20 03:53 Hct 37.6 % (36.0-45.0) D 01/09/20 03:53 Plt Count 145 K/uL (152-406) L 01/09/20 03:53 PT 14.8 SECONDS (9.5-12.5) H 01/09/20 03:53 INR 1.26 01/09/20 03:53 APTT 34.9 SECONDS (24.3-36.9) 01/09/20 03:53 Sodium 141 mmol/L (136-145) 01/09/20 03:53 Potassium 4.2 mmol/L (3.5-5.1) 01/09/20 03:53 BUN 16 mg/dL (7-18) 01/09/20 03:53 Creatinine 0.95 mg/dL (0.55-1.3) 01/09/20 03:53 Glucose 165 mg/dL (74-106) H 01/09/20 03:53 Magnesium 1.9 mg/dL (1.8-2.4) 01/08/20 01:28 Total Bilirubin 0.6 mg/dL (0.2-1.0) 01/09/20 03:53 AST 9 U/L (15-37) L 01/09/20 03:53 ALT 17 U/L (12-78) 01/09/20 03:53 Alkaline Phosphatase 60 U/L (45-117) 01/09/20 03:53 Troponin I < 0.02 ng/mL (0.0-0.045) 01/08/20 05:15 Triglycerides 126 mg/dL (<150) 01/08/20 05:15 Cholesterol 144 mg/dL (<200) 01/08/20 05:15 HDL Cholesterol 38 mg/dL (40-60) L 01/08/20 05:15 Cholesterol/HDL Ratio 3.79 01/08/20 05:15 Home Medications: Alirocumab [Praluent Pen] 75 mg SQ SEECOM 01/08/20 Amiodarone HCl [Cordarone*] 200 mg PO DAILY 01/08/20 Apixaban [Eliquis *] 5 mg PO BID 01/08/20 Aspirin [Aspirin EC 325 MG] 325 mg PO DAILY 01/08/20 Donepezil HCl [Aricept] 10 mg PO DAILY 01/08/20 Ergocalciferol (Vitamin D2) [Vitamin D2] 50,000 unit PO SEECOM 01/08/20 Insulin Lispro [Humalog Kwikpen U-100] 60 unit SQ AC 01/08/20 Levothyroxine [Synthroid*] 75 mcg PO [id number] 01/08/20 Metoprolol Succinate [Toprol Xl*] 25 mg PO BID 01/08/20 Pramipexole [Mirapex*] 0.5 mg PO BEDTIME PRN 01/08/20 Furosemide [Lasix] 20 mg PO BID #60 tablet 01/10/20 New Medications: Furosemide [Lasix] 20 mg PO BID #60 tablet Diet: Low sodium Activity: Ad sondra Time spent managing pt's care (in minutes): 35
[2020-01-10] MEDS ORDERED: DOXYCYCLINE 100 MG CAP PO SCH (15:30)
[2020-01-10 16:33] VITALS: BP 140/60; TEMP 98.5
--- NOTE | 2020-01-11 07:58 | ECHO ---
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 DOPPLER/COLOR FLOW: NORMAL. COMMENTS: TECHNICALLY DIFFICULT STUDY. NORMAL LEFT VENTRICULAR SIZE AND FUNCTION - EJECTION FRACTION 65%. MITRAL ANNULAR CALCIFICATION. AORTIC SCLEROSIS. TECHNOLOGIST: FRED PAGE
[2020-01-21] MEDS ORDERED: ALIROCUMAB SQ SCH (09:00)
== END 2020-01-10 18:53 ==
LOC: ER 20:29 → ERHOLD 01-08 02:31 → 2ND 01-08 05:41
PROVIDERS: ADMIT Hospitalist; ATTEND Internal Medicine
DX: I11.0 Hypertensive heart disease with heart failure (principal); I50.23 Acute on chronic systolic (congestive) heart failure; N39.0 Urinary tract infection, site not specified; I48.20 Chronic atrial fibrillation, unspecified; F03.90 Unspecified dementia, unspecified severity, without behavioral disturbance, psychotic disturbance, mood disturbance, and anxiety; E11.9 Type 2 diabetes mellitus without complications; Z99.81 Dependence on supplemental oxygen; G89.4 Chronic pain syndrome; S79.911A Unspecified injury of right hip, initial encounter; W01.0XXA Fall on same level from slipping, tripping and stumbling without subsequent striking against object, initial encounter; Y92.9 Unspecified place or not applicable; Z79.01 Long term (current) use of anticoagulants; Z79.4 Long term (current) use of insulin; R26.89 Other abnormalities of gait and mobility; M25.562 Pain in left knee; M25.561 Pain in right knee
CPT/HCPCS: 36415; 72192; 73700; 80048; 80053; 80061; 80076; 81003; 81015; 82550; 82947; 83735; 83880; 84484; 85025; 85610; 85730; 87077; 87086; 87088; 87186; 93005; 93306; 97116; 97161; 97530; 99285; G0378; J1940; J2270; J2405; J7030

== ENCOUNTER 2020-01-09 15:07 | Inpatient (IN) | payer OTHER ==
--- NOTE | 2020-01-09 16:15 | R.PREADM ---
SCREENING DATE AND TIME 01/09/2020 15:19 (CDT) ANTICIPATED REHAB ADMISSION DATE 01/11/[address] [facility] REFERRAL DATE AND TIME 01/09/2020 15:19 (CDT) REFERRAL ROOM# 209 ACUTE ADMIT DATE 01/08/2020 Previous Rehabilitation(s): No. 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 Willard Sotelo M.D. MR# [id number] NAME JIMY NARVAEZ ADDRESS [address] [place] [address] [place]IP [id number] DATE OF 1940 AGE 79 SSN# [id number] GENDER female MARITAL STATUS RACE white PREF. LANGUAGE (IF NON-YORUBA) Vietnamese ADMIT FROM 02 - [facility] PRE-HOSPITAL LIVING SETTING 01 - Home (private home/apt. board/care, assisted living, longterm, transitional living) HOME TYPE AND DETAILS Type of home: single family house # of steps to enter the residence: 0 # of levels in the residence: 1 # of steps within the residence: 0 Patient renectly moved in with her daughter after living at an assisted living. She was using a scoo ter at her daughters residence. PRE-HOSPITAL LIVING WITH Family/Relatives FAMILY SUPPORT Yes PRIMARY FAMILY CONTACT NAME Ely Ortez PRIMARY FAMILY CONTACT PHONE PRIMARY FAMILY CONTACT RELATIONSHIP Daughter IS PRIMARY FAMILY CONTACT AUTH. REP.? no 1ST EMERGENCY CONTACT Ely Ortez 1ST CONTACT PHONE 1ST CONTACT RELATIONSHIP Daughter IS 1ST CONTACT AUTH. REP.? no PHONE 2ND CONTACT ON ADM.? no PATIENT EMPLOYMENT STATUS Retired (for age) PATIENT EMPLOYER No Employer PAYOR INFORMATION: 1ST PAYOR NAME Medicare 1ST PAYOR PHONE 1ST PAYOR INJURY/ILLNESS DUE TO ACCIDENT? Yes ANOTHER CONSTITUTION PARTY RESPONSIBLE? No PRIMARY REHAB/ACUTE DIAGNOSIS: status post fall with left hip pain and no fracture ONSET DATE 01/08/2020 REHAB IMPAIRMENT CATEGORY (ANGEL): 20 Miscellaneous (Misc) does NOT meet 60% rule PRIMARY DIAGNOSIS-RELATED SURGERIES: No surgeries related to the primary diagnosis were performed. SUMMARY OF ACUTE HOSPITALIZATION: Pt. is a 79 yo Right-handed white female. On 01/08/2020 she was admitted to [facility] with diagnosis status post fall with left hip pain a nd no fracture. Her impairment category is Debility 16 - Debility (16). Pre-morbidly, Pt. was independent/mod-I in Transfers Control, Locomotion, and Self-Care; and she had good Balance, Social Cognition, Sphincter Control, and Communication. Currently, she has deficits of Transfers Control, Balance, Locomotion, Safety Awareness, and Self-Car e. Pt. is now referred to [facility] for acute in-patient rehabilitation in order to maximize patient's functional independence in activities of daily living, strength, ROM, and mobi lity. Patient has realistic goal of being discharged at assistance level 6-Emilee to reside at Home with Fam aissatou/Relatives. PAST MEDICAL HISTORY Diabetes HTN Restless Leg Dementia AFIB CAD PAST SURGICAL HISTORY: HYSTERECTOMY APPENDECTOMY Cardiac Cathiterization MEDICATION ALLERGIES: Aspirin cephazolin CODEINE FENTANYL HYDROCODONE oxycodone propoxyphene tramadol ENVIRONMENTAL ALLERGIES: None Known - Substance Allergies None Known - Other Allergies None Known CODE STATUS: Full code WEIGHT/HEIGHT/BMI: WEIGHT 369 lbs HEIGHT 5' 6" BMI 59.6 DIET: - Diet Type Regular - Diet - Solid Texture Regular - Diet - Liquid Texture Regular - Tube Feed N/A REVIEW OF SYSTEMS: - Gen Alert and awake Lying in bed No apparent distress Oriented to: person, time, and place - Vital Signs Vital signs stable, afebrile - CVS RRR VITAL SIGNS Temperature: 99.2 F SBP/DBP: 147/55 Pulse: 68 Resp: 16 Vital signs stable, afebrile MEDICATIONS/TREATMENT: Other- See attached MAR (Medication Administration Record). CURRENT LOCOMOTION STATUS: distance walked 5 feet DETAILED CURRENT FUNCTIONAL STATUS: - Walking score based on distance walked: 1(<=50ft) QI SCORES: - Self-Care A. Eating 05-Setup or clean-up assistance B. Oral hygiene 05-Setup or clean-up assistance C. Toileting hygiene 03-Partial/moderate assistance E. Shower/bathe self 10-Not attempted due to environmental limitations F. Upper body dressing 03-Partial/moderate assistance G. Lower body dressing 88-Not attempted due to medical condition or safety concerns H. Putting on/taking off footwear 88-Not attempted due to medical condition or safety concerns - Mobility A. Roll left and right 03-Partial/moderate assistance B. Sit to lying 03-Partial/moderate assistance C. Lying to sitting on side of bed 03-Partial/moderate assistance D. Sit to stand 03-Partial/moderate assistance E. Chair/umm-fb-vgvpc transfer 03-Partial/moderate assistance F. Toilet transfer 03-Partial/moderate assistance G. Car transfer 88-Not attempted due to medical condition or safety concerns I. Walk 10 feet 88-Not attempted due to medical condition or safety concerns J. Walk 50 feet with two turns 88-Not attempted due to medical condition or safety concerns K. Walk 150 feet 88-Not attempted due to medical condition or safety concerns L. Walking 10 feet on uneven surfaces 88-Not attempted due to medical condition or safety concerns M. 1 step (curb) 88-Not attempted due to medical condition or safety concerns N. 4 steps 88-Not attempted due to medical condition or safety concerns O. 12 steps 88-Not attempted due to medical condition or safety concerns P. Picking up object 88-Not attempted due to medical condition or safety concerns - Bladder and Bowel Bladder continence 0-Always continent Bowel continence 0-Always continent - Endurance Poor - Balance Poor - Safety Awareness Poor CURRENT FUNC. DEFICITS: Self-Care, Mobility, Endurance, Balance, and Safety Awareness HISTORY OF FALLS. HAS THE PATIENT HAD TWO OR MORE FALLS IN THE PAST YEAR OR ANY FALL WITH INJURY IN T HE PAST YEAR?: Yes PRIOR SURGERY. DID THE PATIENT HAVE MAJOR SURGERY DURING THE 100 DAYS PRIOR TO ADMISSION?: No THERAPY NOTES FROM ACUTE CARE: Attached. SPECIAL NEEDS: - Safety Concerns Skin breakdown precautions needed due to skin breakdown risk PATIENT NEEDS ACTIVE AND ONGOING THERAPEUTIC INTERVENTION OF MULTIPLE THERAPY DISCIPLINES, INCLUDING: - Dietary and Nutrition Adequate Nutrition. Nutritional Education. Nutritional Supplements. PATIENT NEEDS CLOSE MEDICAL SUPERVISION BY A REHABILITATION PHYSICIAN FOR: Coordination of Treatment Team PATIENT REQUIRES 24X7 REHAB NURSING FOR MEDICAL AND FUNCTIONAL MGT. OF THE FOLLOWING DEFICITS: Disease Management Medication Management Patient/Family Education Providing Safe Environment PATIENT REQUIRES INTENSIVE, COORDINATED INTERDISCIPLINARY APPROACH TO REHAB: Arranging Home Equipment/Services Discharge Planning Family Intervention/Training Charcoal Kiln Burner/Case Management PATIENT REHAB POTENTIAL: Iris SASKIA is able and expected to receive 3 hours of individualized therapy daily on at least 5 o f every 7 days Iris KRUGER's prognosis for significant practical improvement within a reasonable period of time ap pears Good Expected level of measurable improvement will be of a practical value to Iris KRUGER's functional c apacity or adaptations to impairments Has a viable Discharge Plan Medically appropriate; condition is sufficiently stable to participate in intensive rehab program DISCHARGE PLAN: - Estimated Length of Stay (days) 13. - Consensus on plan Discharge plan has been discussed with primary caregiver. Patient/Family is in agreement with the alejandra n. Primary caregiver is in agreement with the plan. - Patient/Family Goals Return home independently. - Planned Living Setting Upon Discharge Home, to live with Family/Relatives. RECOMMENDED CARE LEVEL: IRF RECOMMENDATION DETAILS: Recommended Admission to Comprehensive Rehabilitation Program to Increase Functional [place] SCREENER'S COMPLETENESS CONFIRMATION: - Screening Confirmation The patient data collection on this preadmission screening form is finished PHYSICIANS REVIEW AND ADMISSION DETERMINATION Admit - Based on my review of the Pre-Admission Screening results, in my medical judgment and experie nce, I concur with the findings and recommend admission to [facility], as this patient requires an IRF level of care. SIGNATURE PANEL: Clinical Liaison - [electronically] signed by Jonelle Espana Claims Clerk on 01/09/2020 at 15:55 (C DT) Clinical Liaison - [electronically] signed by César Vigil PT on 01/09/2020 at 16:03 (CDT) Physician Reviewer - [electronically] signed by Dr. Willard Sotelo M.D. on 01/09/2020 at 16:14 (CDT )
--- OUTSIDE RECORDS SUMMARY | 2020-01-10 19:25 | XMS REPORT ---
:1940 Author Organization [facility] t Address [address] [place] [address] Care Team Providers Name Role Phone Unavailable Unavailable Unavailable Problems Condition Condition Condition Status Onset Resolution Last Treatin g Comments Name Details Category Date Date Treatment Clinician Date Idiopathic Idiopathic Problem Active peripheral Peripheral 4-09 neuropathy Neuropathy 00:00: 00 Open wound Open Wound Problem Active of lower of Lower 8-29 limb Limb 00:00: 00 Type 2 Type 2 Problem Active diabetes Diabetes 7-20 mellitus Mellitus 00:00: 00 Lymphedema Lymphedema Problem Active 04-01 00:00: 00 Dystrophia Dystrophia Problem Active unguium Unguium 720 00:00: 00 Coronary Coronary Problem Active arterioscle Arterioscle 607 rosis in rosis in 00:00: [place] 00 artery Artery Congestive Congestive Problem Active heart Heart 6-07 failure Failure 00:00: 00 Peripheral Peripheral Problem Active arterial Arterial 607 occlusive Occlusive 00:00: disease Disease 00 Type 2 Type 2 Problem Active diabetes Diabetes 8-13 mellitus Mellitus 00:00: with with 00 peripheral Peripheral angiopathy Angiopathy Hypothyroid Hypothyroid Problem Active ism ism 05-25 00:00: 00 Type II Type II Problem Active diabetes Diabetes 912 mellitus Mellitus 00:00: uncontrolle Uncontrolle 00 d d Diabetic Diabetic Problem Active neuropathy Neuropathy 05-22 00:00: 00 Diabetic Diabetic Problem Active polyneuropa Polyneuropa 05-22 thy thy 00:00: 00 Pure Pure Problem Active hypercholes Hypercholes 05-22 terolemia terolemia 00:00: 00 Restless Restless Problem Active legs Legs 05-22 00:00: 00 Benign Benign Problem Active essential Essential 05-22 hypertensio Hypertensio 00:00: n n 00 Sleep apnea Sleep Apnea Problem Active 05-22 00:00: 00 Allergies, Adverse Reactions, Alerts Allergy Name Allergy Status Severity Reaction(s) Onset Inactive Treat ing Comments Type Date Date Clinician ACETAMINOPHEN Allergy to Active substance 05-25 00:00: 00 CEFAZOLIN Allergy to Active SODIUM substance 05-25 00:00: 00 Codeine Allergy to Active substance 05-25 00:00: 00 FENTANYL Allergy to Active substance 05-25 00:00: 00 PROPOXYPHENE Allergy to Active HCL substance 05-25 00:00: 00 PROPOXYPHENE Allergy to Active NAPSYLATE substance 05-25 00:00: 00 TRAMADOL Allergy to Active substance 05-25 00:00: 00 Medications Ordered Filled Start Stop Current Ordering Indication Dosage Frequency Signature Comments Components Medication Medication Date Date Medication? Clinician (SIG) Name Name amiodarone amiodarone No amiodarone 200 mg 200 mg 200 mg tablet Take tablet Take tablet one tablet one tablet Take one daily daily tablet daily aspirin 325 aspirin 325 No 1 Q1D aspirin mg tablet mg tablet 325 mg Take 1 Take 1 tablet tablet tablet Take 1 every day every day tablet by oral by oral every day route. route. by oral route. B-Complex 1 B-Complex 1 No B-Comple x daily daily 1 daily BD BD No BD Ultra-Fine Ultra-Fine Ultra-Fine Short Pen Short Pen Short Pen Needle 31 Needle 31 Needle 31 gauge x gauge x gauge x 5/16" USE 16" USE 516" USE UNDER THE UNDER THE UNDER THE SKIN FOUR SKIN FOUR SKIN FOUR TIMES A DAY TIMES A DAY TIMES A DAY clobetasol clobetasol No clobetasol 0.05 % 0.05 % 0.05 % scalp scalp scalp solution solution solution clobetasol clobetasol No clobetasol 0.05 % 0.05 % 0.05 % topical topical topical ointment ointment ointment APPLY A APPLY A APPLY A THIN LAYER THIN LAYER THIN LAYER TO HAIR TO HAIR TO HAIR HALF AN HALF AN HALF AN HOUR BEFORE HOUR BEFORE HOUR WASHING WASHING BEFORE HAIR HAIR WASHING HAIR clopidogrel clopidogrel No clopidog re 75 mg 75 mg l 75 mg tablet Take tablet Take tablet 1 tablet 1 tablet Take 1 every day every day tablet by oral by oral every day route. route. by oral route. cranberry cranberry No 1mg Q1D cranberry extract 300 extract 300 extract mg tablet mg tablet 300 mg Take 1 mg Take 1 mg tablet every day every day Take 1 mg by oral by oral every day route. route. by oral route. donepezil donepezil No 1 Q1D donepezil 10 mg 10 mg 10 mg tablet Take tablet Take tablet 1 tablet 1 tablet Take 1 every day every day tablet by oral by oral every day route at route at by oral bedtime. bedtime. route at bedtime. econazole 1 econazole 1 No econazol e % topical % topical 1 % cream cream topical cream ergocalcife ergocalcife No ergocalc if rol rol tono (vitamin (vitamin (vitamin D2) 50,000 D2) 50,000 D2) 50,000 unit unit unit capsule capsule capsule Take 1 Take 1 Take 1 capsule capsule capsule every week every week every week by oral by oral by oral route. route. route. fluconazole fluconazole No fluconaz ol 150 mg 150 mg e 150 mg tablet tablet tablet furosemide furosemide No 1 Q1D furosemide 40 mg 40 mg 40 mg tablet Take tablet Take tablet 1 tablet 1 tablet Take 1 every day every day tablet by oral by oral every day route as route as by oral needed. needed. route as needed. gabapentin gabapentin No 1capsul TID gabapent in 300 mg 300 mg e(s) 300 mg capsule capsule capsule Take 1 Take 1 Take 1 capsule 3 capsule 3 capsule 3 times a day times a day times a by oral by oral day by route. route. oral route. Humalog Mix Humalog Mix No Humalog 50-50 50-50 Mix 50-50 KwikPen KwikPen KwikPen U-100 U-100 U-100 Insulin 100 Insulin 100 Insulin unit/mL unit/mL 100 subcutaneou subcutaneou unit/mL s pen s pen subcutaneo Inject 60 Inject 60 us pen units TID units TID Inject 60 units TID ipratropium ipratropium No ipratrop iu bromide 42 bromide 42 m bromide mcg (0.06 mcg (0.06 42 mcg %) nasal %) nasal (0.06 %) spray spray nasal spray ketoconazol ketoconazol No ketocona zo e 2 % e 2 % le 2 % topical topical topical cream cream cream [facility] (honey) 100 (honey) 100 (honey) % topical % topical 100 % paste apply paste apply topical to wound to wound paste twice a day twice a day apply to wound twice a day meperidine meperidine No meperidine 50 mg 50 mg 50 mg tablet PRN tablet PRN tablet PRN nitroglycer nitroglycer No nitrogly ce in 0.4 mg in 0.4 mg rin 0.4 mg sublingual sublingual sublingual tablet tablet tablet Place [address] 1 tablet as tablet as tablet as needed by needed by needed by sublingual sublingual sublingual route. route. route. nystatin-tr nystatin-tr No nystatin -t iamcinolone iamcinolone riamcino lo 100,000 100,000 ne 100,000 unit/g-0.1 unit/g-0.1 unit/g-0.1 % topical % topical % topical cream cream cream OneTouch OneTouch No OneTouch Delica Delica Delica Lancets 30 Lancets 30 Lancets 30 gauge Check gauge Check gauge blood sugar blood sugar Check 3 times per 3 times per blood day day sugar 3 times per day OneTouch OneTouch No OneTouch Verio Verio Verio strips Take strips Take strips 1 strip 3 1 strip 3 Take 1 times a day times a day strip 3 by miscell. by miscell. times a route for route for day by 90 days. 90 days. miscell. route for 90 days. potassium potassium No potassium take 1 take 1 take 1 tablet tablet tablet daily daily daily NEEDED NEEDED NEEDED Praluent Praluent No Praluent Pen 75 Pen 75 Pen 75 mg/mL mg/mL mg/mL subcutaneou subcutaneou subcutan eo s pen s pen us pen injector injector injector Inject 1 mL Inject 1 mL Inject 1 every 2 every 2 mL every 2 weeks by weeks by weeks by subcutaneou subcutaneou subcutan eo s route. s route. us route. pramipexole pramipexole No pramipex ol 0.5 mg 0.5 mg e 0.5 mg tablet Take tablet Take tablet 1 tablet 1 tablet Take 1 twice a day twice a day tablet by oral by oral twice a route. route. day by oral route. propafenone propafenone No propafen on 150 mg 150 mg e 150 mg tablet Take tablet Take tablet 1 tablet 1 tablet Take 1 every 8 every 8 tablet hours by hours by every 8 oral route. oral route. hours by oral route. salicylic salicylic No salicylic acid as acid as acid as needed needed needed salicylic salicylic No salicylic acid 6 % acid 6 % acid 6 % shampoo shampoo shampoo APPLY TO APPLY TO APPLY TO WET HAIR BY WET HAIR BY WET HAIR TOPICAL TOPICAL BY TOPICAL ROUTE ; ROUTE ; ROUTE ; WORK INTO A WORK INTO A WORK INT O FULL LATHER FULL LATHER A FULL THEN RINSE THEN RINSE LATHER THOROUGHLY THOROUGHLY THEN RINSE AND PAT DRY AND PAT DRY THOROUGH LY NEEDED NEEDED AND PAT DRY NEEDED Synthroid Synthroid No Synthroid 175 mcg 175 mcg 175 mcg tablet TAKE tablet TAKE tablet 1 TABLET 1 TABLET TAKE 1 DAILY DAILY TABLET DAILY Toprol XL Toprol XL No Toprol XL 25 mg 25 mg 25 mg tablet,exte tablet,exte tablet,e xt nded nded ended release release release Take one Take one Take one tablet tablet tablet daily daily daily Tresiba Tresiba No Tresiba FlexTouch FlexTouch FlexTouch U-200 U-200 U-200 insulin 200 insulin 200 insulin unit/mL (3 unit/mL (3 200 mL) mL) unit/mL (3 subcutaneou subcutaneou mL) s pen s pen subcutaneo Inject 40 Inject 40 us pen units daily units daily Inject 4 0 units daily Trulicity Trulicity No .5mL Q1W Trulicity 1.5 mg/0.5 1.5 mg/0.5 1.5 mg/0.5 mL mL mL subcutaneou subcutaneou subcutan eo s pen s pen us pen injector injector injector Inject 0.5 Inject 0.5 Inject 0.5 mL every mL every mL every week by week by week by subcutaneou subcutaneou subcutan eo s route for s route for us route 30 days. 30 days. for 30 days. Immunizations Ordered Immunization Name Filled Immunization Name Date Sta Comments influenza, seasonal, influenza, seasonal, 2013-05-26 Completed injectable injectable 00:00:00 influenza, seasonal, influenza, seasonal, 2012-05-25 Completed injectable injectable 00:00:00 influenza, seasonal, influenza, seasonal, 2010-05-12 Completed injectable injectable 00:00:00 pneumococcal pneumococcal 2003-09-13 Completed polysaccharide PPV23 polysaccharide PPV23 00:00:00 Vital Signs Vital Name Observation Time Observation Value Comments BP Diastolic 2019-06-20 00:00:00 74 mm[Hg] Height 2019-06-20 00:00:00 65 [in_i] BP Systolic 2019-06-20 00:00:00 156 mm[Hg] Body Weight 2019-06-20 00:00:00 369 [lb_av] BP Diastolic 2019-05-05 00:00:00 69 mm[Hg] Height 2019-05-05 00:00:00 65 [in_i] BP Systolic 2019-05-05 00:00:00 142 mm[Hg] Body Weight 2019-05-05 00:00:00 369 [lb_av] BP Diastolic 2019-03-27 00:00:00 73 mm[Hg] Height 2019-03-27 00:00:00 65 [in_i] BP Systolic 2019-03-27 00:00:00 152 mm[Hg] Body Weight 2019-03-27 00:00:00 369 [lb_av] BP Diastolic 2018-12-20 00:00:00 53 mm[Hg] Height 2018-12-20 00:00:00 65 [in_i] BP Systolic 2018-12-20 00:00:00 150 mm[Hg] Plan of Care Planned Activity Planned Date Comments Encounters Start End Encounter Admission Attending Care Care Encounter Date/Time Date/Time Type Type Clinicians Facility Department ID 2019-06-20 2019-06-20 Anna BOURGEOIS [place] - [id number] 00:00:00 00:00:00 Kalin Caballero PA: [address] [facility], [facility] [address], [place] [address], Ph. 2019-05-26 2019-05-26 Anna POLANCO [place] - [id number] 00:00:00 00:00:00 FedericoKalin lemons PA: [address] [facility], [facility] [address], [place] [address], Ph. 2019-05-05 2019-05-05 Anna POLANCO [place] - [id number] 00:00:00 00:00:00 Kalin Caballero PA: [address] [facility], [facility] [address], [place] [address], Ph. 2019-03-27 2019-03-27 Anna Nolan [facility] [place] - [id number] 00:00:00 00:00:00 Kalin Caballero PA: [address] [facility], [facility] [address], [place] [address], Ph. 2018-12-20 2018-12-20 Anna Nolan [facility] [place] - [id number] 00:00:00 00:00:00 Kalin Caballero PA: [address] [facility], [facility] [address], [place] [address], Ph.
--- OUTSIDE RECORDS SUMMARY | 2020-01-10 19:25 | XMS REPORT | Encounter Summary ---
:1939 Author Care Team Providers Name Role Phone Dr. Justo Rodriguez Primary Care Provider [phone] Reason for Visit CGMS Education Instructions 1. Type 2 diabetes mellitus Discussion Note: None recorded.Patient educational handouts: No information available. Plan of Care Reminders Provider Appointments Diabetic Laurita ie B 05/29/2019 [facility]ero 10:15AM Lab None recorded. Referral None recorded. Procedures None recorded. Surgeries None recorded. Imaging None recorded. Medications Name Start Date amiodarone 200 mg tablet Take one tablet daily aspirin 325 mg tablet Take 1 tablet every day by oral route. B-Complex 1 daily BD Ultra-Fine Short Pen Needle 31 gauge x 5/16" USE UNDER THE SKIN FOUR TIMES A DAY clobetasol 0.05 % topical ointment APPLY A THIN LAYER TO HAIR HALF AN HOUR BEFORE WASHIN G HAIR clopidogrel 75 mg tablet Take 1 tablet every day by oral route. cranberry extract 300 mg tablet Take 1 mg every day by oral route. donepezil 10 mg tablet Take 1 tablet every day by oral route at bedtime. econazole 1 % topical cream ergocalciferol (vitamin D2) 50,000 unit capsule Take 1 capsule every week by oral route. fluconazole 150 mg tablet furosemide 40 mg tablet Take 1 tablet every day by oral route as needed. gabapentin 300 mg capsule Take 1 capsule 3 times a day by oral route. Humalog Mix 50-50 KwikPen U-100 Insulin 100 unit/mL garcia bcutaneous pen Inject 60 units TID ipratropium bromide 42 mcg (0.06 %) nasal spray ketoconazole 2 % topical cream MediHoney (honey) 100 % topical paste apply to wound twice a day meperidine 50 mg tablet PRN nitroglycerin 0.[address] 1 tablet as needed by sublingual route. nystatin-triamcinolone 100,000 unit/g-0.1 % topical cr eam OneTouch Delica Lancets 30 gauge Check blood sugar 3 times per day OneTouch Verio strips Take 1 strip 3 times a day by miscell. route for 90 d ays. potassium take 1 tablet daily NEEDED Praluent Pen 75 mg/mL subcutaneous pen injector Inject 1 mL every 2 weeks by subcutaneous route. pramipexole 0.5 mg tablet Take 1 tablet twice a day by oral route. propafenone 150 mg tablet Take 1 tablet every 8 hours by oral route. salicylic acid as needed salicylic acid 6 % shampoo APPLY TO WET HAIR BY TOPICAL ROUTE ; WO RK INTO A FULL LATHER THEN RINSE THOROUGHLY AND PAT DRY NEEDED Synthroid 175 mcg tablet TAKE 1 TABLET DAILY Toprol XL 25 mg tablet,extended release Take one tablet daily Tresiba FlexTouch U-200 insulin 200 unit/mL (3 mL) sub cutaneous pen Inject 40 units daily Trulicity 1.5 mg/0.5 mL subcutaneous pen injector Inject 0.5 mL every week by subcutaneous route for 30 days. Medications Administered None recorded. Vitals Height Weight BMI Blood Pressure 5 ft 5 in 369 lbs 61.4 kg/m2 142/69 mm[Hg] Lab Results None recorded. Allergies Code Code System Name Reaction Severity Status Onset Acetaminophen Active 2011 Cefazolin Sodium Active 08/2012 2670 RxNorm Codeine Active 05/25/2012 Fentanyl Active 05/25/2012 Propoxyphene Hcl Active 08/2012 Propoxyphene Active 012 Napsylate Tramadol Active 05/25/2012 Problems Name Status Onset Date Source Diabetic Neuropathy Active 05/22/2012 Diabetic Polyneuropathy Active 05/22/2012 Pure Hypercholesterolemia Active 05/22/2012 Restless Legs Active 05/22/2012 Benign Essential Hypertension Active 05/22/2012 Sleep Apnea Active 05/22/2012 Hypothyroidism Active 05/25/2012 Type II Diabetes Mellitus Uncontrolled Active 2 Type 2 Diabetes Mellitus with Peripheral Active 013 Angiopathy Coronary Arteriosclerosis in [place] Artery Active 02/17 Congestive Heart Failure Active 02/17/2014 Peripheral Arterial Occlusive Disease Active 02/17/2014 Type 2 Diabetes Mellitus Active 04/01/2017 Lymphedema Active 04/01/2017 Dystrophia Unguium Active 04/01/2017 Open Wound of Lower Limb Active 05/11/2017 Idiopathic Peripheral Neuropathy Active 12/20/2018 Procedures None recorded. Vaccine List Vaccine Type influenza, seasonal, injectable 05/12/2010 05/25/20120.5 mL 05/26/20130.5 mL pneumococcal polysaccharide PPV23 09/13/2003 Social History Tobacco Smoking Status Never Smoker Past Encounters 05/05/2019 Type 2 Diabetes Mellitus [facility] [place]: [address] [facility], [address], [place] [address], Ph. History of Present Illness Note: Continuous glucose monitoring system (CGMS) applied today: {{IPRO*|Personal|Dexcom|[place]}}

Patient signed agreement/waiver and scanned into chart.

The sensor was inserted using sterile technique. Should infection, inflammation or bleeding at the site occur, they know to contact their health care provider.

Patient was educated and verbalized understanding on all comprehensive features of the CGMS including:

- Rationale for use

- Components of the daphne tor

- Blood sugar recording every 5 minutes (288/day)

- The necessity of entering 4 blood glucose values throughout each day

- The importance of entering the self-monitored blood glucose values immediately following the test

- The rationale for entering events (hypoglycemia, exercise, medication)

- The sequence of button pushing

- Use of the belt clip

- Protecting the monitor from moisture by using the Shower-Dimitris

- Importance of NOT disconnecting from the sensor during the study

- Importance of keeping the cable tucked under clothing

- Avoidance of swimming, bathing, hot tubs, and medical imaging tests during the study

- Avoidance of injection insulin near the site

- Understanding of the initialization period

- Importanceof keeping a detailed daily record and how to use log sheets

- How to respond to alarms

- Understanding that alarms stop graphs until new meter reading is entered and accepted

- How and when to discontinue the sensor and return monitor to clinic

Patient verbalized understanding of all i nstructions and demonstrated competence of proper CGMS usage. Patient to return to clinic for download and interpretation of the CGMS data as instructed. Review of Systems None recorded. Physical Exam None recorded.
--- OUTSIDE RECORDS SUMMARY | 2020-01-10 19:25 | XMS REPORT | Encounter Summary ---
:1939 Author Care Team Providers Name Role Phone Dr. Justo Rodriguez Primary Care Provider [phone] Reason for Visit diabetes Instructions 1. Type 2 diabetes mellitus with peripheral angiopathy glucose, fingerstick, bloo d Tresiba FlexTouch U-200 in sulin 200 unit/mL (3 mL) subcutaneous pen Trulicity 1.5 mg/0.5 mL garcia bcutaneous pen injector 2. Hypothyroidism Synthroid 175 mcg tablet 3. Benign essential hypertension 4. Diabetic neuropathy 5. Lymphedema 6. Type II diabetes mellitus [employer] [place] 14 Day [place] abraham Free[employer] [place] 14 Day Sen sor kit Discussion Note: None recorded.Patient educational handouts: No information available. Plan of Care Patient Instructions Check BS 4 times a day. Start Trulcity low dose at 0.75 mg for t wo weeks (nursing train and give samples). ON the third week, you will increase to 1.5 mg from now one (rx sent to pharmacy). Continue same insulin plan for now. Watc h for lows. If you start having readings below 100, reduce insulin across the board by 4-5 units each dose. Reminders Provider Appointments Diabetic on or around Patsy Nolan 05/28/2019 G[facility] Caballero Lab Glucose, 03/27/2019 [facility] Fingerstick, Blood Group (Vmg) [facility] Referral None recorded. Procedures None recorded. Surgeries [...] ft 5 in 369 lbs 61.4 kg/m2 152/73 mm[Hg] Lab Results Date Name Specimen Result Interpretation Description Value Range Status Address Glucose, Blood [address] [facility] Fingerstick, Glucose: [place] [facility] Group Blood mg/dl (Vmg) [facility]: [address], [place] Allergies Code Code System Name Reaction Severity [...] Peripheral Active 013 Angiopathy Coronary Arteriosclerosis in [place] Artery Active 02/17 Congestive Heart Failure Active 02/17/2014 Peripheral Arterial Occlusive Disease Active 02/17/2014 Type 2 Diabetes Mellitus Active 04/01/2017 Lymphedema Active 04/01/2017 Dystrophia Unguium Active 04/01/2017 Open Wound of Lower Limb Active 05/11/2017 Idiopathic Peripheral Neuropathy Active 12/20/2018 Procedures None recorded. Vaccine List Vaccine Type influenza, seasonal, injectable 05/12/2010 05/25/20120.5 mL 05/26/20130.5 mL pneumococcal polysaccharide PPV23 09/13/2003 Social History Smoking Status Never Smoker Past Encounters 03/27/2019 Type 2 Diabetes Mellitus with Peripheral Angiopathy; Hypothyroidism; Benign Essential Hypertension; Diabetic Neuropathy; Lymphedema; Type II Diabetes Mellitus Uncontrolled [facility] [place]: [address] [facility], [address], [place] [address], Ph. History of Present Illness Note: DM: <div>
</div><div>eating food provided at assisted living and has been eating mroe carbs at living. </div><div>no meter</div><div>per patient BS stable but has been skipping lunch.
<div>Humalog 50/50 mix 60/60/60,</div><div>Tresiba 40 units daily </div><div>BS higher, over 200. </div><div>A1c better at 8.0% last time. </div><div>no lows or hypoglycemia symptoms
<div&g t;
</div><div>HTN: per CV, controlled today</div><div>
</div><div>CV: all stable, Dr. Messina. </div><div>
</div><div>WEIGHT: she c/o of weight gain due to carb intake at the new living situation</div><div>she says weight is up to 371. </div><div>
</div><div>LYMPHEDEMA: better and has completed treatment. , got a new bandage, and has actually been able to wear shoes lately, one leg wrapped today</div><div>
</div><div>THY: has been off thyroid med, thinks her weight is related to no thyroid medication</div><div>
</div><div>WOUND: [place] home [facility] follows once a week. well healed. </div><d iv>
</div><div>NEURO: c/o shooting pain in right leg, with numbness and tingling in her foot. </div><div>
</div><div>
</div>&l t;/div></div><div>
</div> Review of Systems Comprehensive General Adult ROS, Brief Endocrinology ROS Reported By: Patient Constitutional: Constitutional: weight gain (lbs) Cardiovascular: Cardiovascular: no chest nery n, no palpitations Respiratory: Respiratory: no shortness of breath Gastrointestinal: Gastrointestinal: no nausea, no vomiting, no constipation, normal appetite, no diarrhea, lockwood e in appetite Musculoskeletal: Musculoskeletal: swelling in the extremities Neurologic: Neurologic: numbness Endocrine: Endocrine: no fatigue Physical Exam Endo: Diabetes Reported By: Patient Constitutional: General Appearance: well-nou rished, well-developed. Level of Distress: no acute distress Cardiovascular: Heart Auscultation: RRR Extremities: Extremities: no cyanosis, no edema Lungs: Auscultation: breath sounds normal, good air movement, clear to auscultation, no wheezing Psychiatric: Insight: good judgement, goo d insight. Mental Status: normal mood
--- OUTSIDE RECORDS SUMMARY | 2020-01-10 19:25 | XMS REPORT | Encounter Summary ---
:1940 Author Care Team Providers Name Role Phone Dr. Justo Rodriguez Primary Care Provider [phone] Reason for Visit diabetes Instructions 1. Benign essential hypertension 2. Diabetic neuropathy 3. Lymphedema 4. Type 2 diabetes mellitus with peripheral angiopathy 5. Hypothyroidism TSH, serum or plasma T4, free, serum T3, free, serum or plasma 6. Pure hypercholesterolemia 7. Idiopathic peripheral neuropa thy gabapentin 300 mg capsule Discussion Note: None recorded.Patient educational handouts: No information available. Plan of Care Patient Instructions add super B complex OTC. if needed ok to fill Gabapentin in a few weeks. Reminders Provider Appointments Diabetic on or around Tifnanette betancourt B 03/21/2019 [facility] TSH, Serum 12/20/2018 [facility] Family or Plasma Practice Laborat ory T4, Free, 12/20/2018 [facility] Serum Practice Laborat ory T3, Free, 12/20/2018 [facility] Serum or Plasma Practice Laborat ory Referral None recorded. Procedures None recorded. Surgeries None recorded. Imaging None recorded. Medications Name Start Date amiodarone 200 mg tablet Take one tablet daily aspirin 325 mg tablet Take 1 tablet every day by oral route. B-Complex 1 daily BD Ultra-Fine Short Pen Needle 31 gauge x 5/16" USE UNDER THE SKIN FOUR TIMES A DAY clobetasol 0.05 % scalp solution clobetasol 0.05 % topical ointment APPLY A [...] 1 capsule every week by oral route. furosemide 40 mg tablet Take 1 tablet [...] a day meperidine 50 mg tablet PRN metoprolol succinate ER 25 mg tablet,extended release 24 hr Take one tablet daily nitroglycerin 0.[address] 1 tablet as needed by sublingual route. OneTouch Delica Lancets 30 gauge Check blood [...] 175 mcg tablet TAKE 1 TABLET DAILY Tresiba FlexTouch U-200 insulin 200 unit/mL (3 mL) sub cutaneous pen Inject 40 units daily Medications Administered None recorded. Vitals Height Weight BMI Blood Pressure 5 ft 5 in 150/53 mm[Hg] Lab Results None recorded. 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 [facility], [address], [place] [address], Ph. History of Present Illness Note: DM: <div>
</div><div>moved, is in assisted living now</div><div>weight up per patient. </div><div>eating food provided at assisted living and has been eating mroe carbs at living. </div><div>no meter</div><div>per patient BS stable but has been skipping lunch.
<div>Humalog 50/50 mix 60/60/60, sometimes after and 1 hour after. </div><div>Tresiba 40 units daily </div><div>A1c better at 8.0% last time. </div><div>no lows or hypoglycemia symptoms
<div>
</div><div>HTN: per CV, controlled today</div><div>
</div><div>CV: all stable, Dr. Messina. </div><div>
</div><div>LYMPHEDEMA: better and has completed treatment. , got a new bandage, and has actually been able to wear shoes lately, one leg wrapped today</div><div>
</div><div>THY: euthyroid off meds. </div><div>
</div><div>WOUND: [facility] follows once a week. , right now a doctor comes to see her and follow her leg. </div><div>
</div><div>NEURO: c/o shooting pain in right leg, with numbness and tingling in her foot. </div><div>
</div><div>
</div>&l t;/div></div><div>
</div> Review of Systems Comprehensive General Adult ROS, Brief Endocrinology ROS Reported By: Patient Cardiovascular: Cardiovascular: no chest nery n, no palpitations Respiratory: Respiratory: no shortness of breath Gastrointestinal: Gastrointestinal: no nausea, no vomiting, no constipation, normal appetite, no diarrhea Neurologic: Neurologic: no numbness Endocrine: Endocrine: no fatigue Physical Exam Endo: Diabetes Reported By: Patient Constitutional: General Appearance: well-nou rished, well-developed. Level of Distress: no acute distress Cardiovascular: Heart Auscultation: RRR Extremities: Extremities: no cyanosis, ed fabian , , , , , , , , , , , , ; very superficial opening at skin on leg, so signs of infection, no discharge. Skin: no acantho sis nigricans Lungs: Auscultation: breath sounds normal, good air movement, clear to auscultation, no wheezing Psychiatric: Insight: good judgement, goo d insight. Mental Status: normal mood
--- OUTSIDE RECORDS SUMMARY | 2020-01-10 19:26 | XMS REPORT | Encounter Summary ---
:1940 Author Care Team Providers Name Role Phone Dr. Justo Rodriguez Primary Care Provider [phone] Reason for Visit None recorded. Instructions 1. Diabetic neuropathy 2. Hypoglycemia Discussion Note: None recorded.Patient educational handouts: No information available. Plan of Care Reminders Provider Appointments Diabetic Tiffan ie B 05/29/2019 [facility] 10:15AM Lab [...] 30 days. Medications Administered None recorded. Vitals None recorded. Lab Results None recorded. 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 05/05/2019 Type 2 Diabetes Mellitus [facility]: [address] [facility], [address], [place] [address], Ph. History of Present Illness None recorded. Review of Systems None recorded. Physical Exam None recorded.
--- OUTSIDE RECORDS SUMMARY | 2020-01-10 19:26 | XMS REPORT | Encounter Summary ---
:1940 Author Care Team Providers Name Role Phone Dr. Justo Rodriguez Primary Care Provider [phone] Reason for Visit diabetes Instructions 1. Benign essential hypertension 2. Diabetic neuropathy 3. Lymphedema 4. Pure hypercholesterolemia 5. Type 2 diabetes mellitus with peripheral angiopathy glucose, fingerstick, bloo d Trulicity 1.5 mg/0.5 mL garcia bcutaneous pen injector 6. Hypothyroidism Synthroid 175 mcg tablet Discussion Note: None recorded.Patient educational handouts: No information available. Plan of Care Patient Instructions Let's stop the Tresiba one week. Let's increase the Humalog 50/ 50 mix to 60 / 50 / 60 Let's start Trulicity once a week. No more than two fruits a day -- no frui ts within three hours of waking. ESSIE-- > diabetes section [facility] - Dr. Charles gastelum or Dr. Tai. Reminders Provider Appointments Diabetic on or around Patsy serafin B 08/20/2019 [facility] Glucose, 06/20/2019 [facility] Fingerstick, Blood Village Referral None recorded. Procedures None recorded. 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 05/26/2019 Diabetic Neuropathy; Hypoglycemia [facility]: [address] [facility], [address] [address], [place] [address], Ph. History of Present Illness Note: DM: <div>
</div><div>eating food provided at assisted living and has been eating mroe carbs at living. </div><div>has been skipping some injections so some high readings as a result</div><div><div>Humalog 50/50 mix 50 / 50/50</div><div>Tresiba 40 units daily - she won't take it or will cut back if she </div><div>A1c better at 8.0% last time. </div><div>no lows or hypoglycemia symptoms</div><d iv>reviewed ipro in detail. </div><div>never started Trulicity. </div><div>needs to find an ENdo close to her so she can take the bus.
<div>
</div><div>HTN: per CV, controlled today</div><div>
</div><div>CV: all stable, Dr. Messina. </div><div>
</div><div>WEIGHT: she reports losing down to 363 and she is cutting out carbs. </div><div>
</div><div>LYMPHEDEMA: better and has completed treatment. , got a new bandage, and has actually been able to wear shoes lately, one leg wrapped today, is needing wraps less and less. </div><div>
</div><div>THY: has been inconsistent in taking it. </div><div>&lt ;br></div><div>NEURO: c/o shooting pain in right leg, with numbness and tingling in her foot. </div><div>
</div><div><span>I spent 40 minutes faceto face time with this patient. Over 50% of the time was spent on patient instruction and counselingmedication</span>
</div></div></div><div>
</div> Review of Systems Comprehensive General Adult ROS, Brief Endocrinology ROS Reported By: Patient Constitutional: Constitutional: no significa nt weight gain, no significant weight loss Cardiovascular: Cardiovascular: no chest nery n, no palpitations Respiratory: Respiratory: shortness of br eath Gastrointestinal: Gastrointestinal: no nausea, no vomiting, no constipation, normal appetite, no diarrhea Musculoskeletal: Musculoskeletal: swelling in the extremities Neurologic: Neurologic: numbness. Neuro: shooting pain Endocrine: Endocrine: no fatigue Physical Exam Endo: Diabetes Reported By: Patient Constitutional: General Appearance: well-nou rished, well-developed. Level of Distress: no acute distress Cardiovascular: Heart Auscultation: RRR Extremities: Extremities: no cyanosis, ed fabian , , , , , , , , , , , , Lungs: Auscultation: breath sounds normal, good air movement, clear to auscultation, no wheezing Psychiatric: Insight: good judgement, goo d insight. Mental Status: normal mood Notes: legs wrapped.
--- OUTSIDE RECORDS SUMMARY | 2020-01-10 19:26 | XMS REPORT | Encounter Summary ---
:1940 Author Care Team Providers Name Role Phone Dr. Justo Rodriguez Primary Care Provider [phone] Reason for Visit None recorded. Instructions 1. Diabetic neuropathy 2. Hypoglycemia Discussion Note: None recorded.Patient educational handouts: No information available. Plan of Care Patient Instructions DELMA on 05/29. 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 05/05/2019 Type 2 Diabetes Mellitus [facility]: [address], [address], [place] [address], Ph. History of Present Illness None recorded. Review of Systems None recorded. Physical Exam None recorded.
[2020-01-10] MEDS: DOXYCYCLINE 100 MG CAP PO SCH (20:00)
[2020-01-10] MEDS: PRAMIPEXOLE 0.25 MG TAB PO SCH ×2 (21:00→21:48)
[2020-01-10] MEDS: METOPROLOL XL 25 MG TAB PO SCH (21:48)
[2020-01-10] MEDS: APIXABAN 5 MG TABLET PO SCH (21:48)
[2020-01-10] MEDS ORDERED: PRAMIPEXOLE 0.25 MG TAB PO PRN (21:59)
[2020-01-11] MEDS ORDERED: DOCUSATE NA 100 MG CAP PO PRN (01:37)
[2020-01-11 06:00] LABS: Absolute Lymphocytes (CBC) 1.2 K/uL (0.7-4.9); Basophils % 0.7 % (0-1.3); Hematocrit 40.1 % (36.0-45.0); Lymphocytes % 19.2 % (15.3-44.8); MPV 8.5 fL (7.6-11.3)
[2020-01-11 06:22] LABS: Magnesium 1.9 mg/dL (1.8-2.4); Potassium 3.8 mmol/L (3.5-5.1); Prealbumin 13.6 mg/dL (20-40)
[2020-01-11] MEDS: LEVOTHYROXINE SOD 0.075 MG TAB PO SCH (06:47)
[2020-01-11] MEDS ORDERED: ACETAMINOPHEN 500 MG TAB PO PRN (07:29)
[2020-01-11] MEDS ORDERED: HUMALOG SQ SCH (07:30)
[2020-01-11] MEDS ORDERED: TRAMADOL HCL 50 MG TAB PO PRN (07:30)
[2020-01-11] MEDS ORDERED: GABAPENTIN 100 MG CAP PO SCH (08:00)
[2020-01-11] MEDS ORDERED: ASPIRIN EC 81 MG TAB PO SCH (08:00)
[2020-01-11] MEDS: ACETAMINOPHEN 500 MG TAB PO PRN ×2 (08:01→23:49)
[2020-01-11] MEDS ORDERED: FUROSEMIDE 20 MG TABLET PO SCH (09:00)
[2020-01-11] MEDS: DONEPEZIL HCL 5 MG TAB PO SCH (09:37)
[2020-01-11] MEDS: DOXYCYCLINE 100 MG CAP PO SCH ×2 (09:37→20:13)
[2020-01-11] MEDS: METOPROLOL XL 25 MG TAB PO SCH ×2 (09:38→20:13)
[2020-01-11] MEDS: AMIODARONE HCL 200 MG TAB PO SCH (09:38)
[2020-01-11] MEDS: APIXABAN 5 MG TABLET PO SCH (09:41)
[2020-01-11] MEDS: FORMULATION-R RECTAL 30GM PR PRN (15:34)
[2020-01-11] MEDS: FOLIC ACID 1 MG TABLET PO SCH (16:55)
[2020-01-11] MEDS: VITAMIN B COMPLEX 1 CAP PO SCH (16:55)
--- NOTE | 2020-01-11 17:08 | PAPE ---
PATIENT: [facility] MR# [id number] REFERRING DOCTOR Dr Arguelles EVALUATION DATE AND TIME 01/11/2020 17:04 (CDT) NAME JIMY NARVAEZ DATE OF 1940 AGE 79 PHONE SSN# [id number] GENDER female EVALUATING PHYSICIAN Dr. Willard Sotelo M.D. ADMISSION DIAGNOSIS: status post fall with left hip pain and no fracture ONSET DATE 01/08/2020 POST-ADMISSION FUNCTIONAL/MEDICAL STATUS: - Walking Same score based on distance walked: 1(<=50ft) STATUS CHANGE EVALUATION: No change in Functional or Medical Status is identified compared with Pre-Admission screening. PATIENT NEEDS CLOSE MEDICAL SUPERVISION BY A REHABILITATION PHYSICIAN FOR: Coordination of Treatment Team PATIENT REQUIRES 24X7 REHAB NURSING FOR MEDICAL AND FUNCTIONAL MGT. OF THE FOLLOWING DEFICITS: Disease Management Medication Management Patient/Family Education Providing Safe Environment PATIENT REQUIRES INTENSIVE, COORDINATED INTERDISCIPLINARY APPROACH TO REHAB: Arranging Home Equipment/Services Discharge Planning Family Intervention/Training Scouring Train Operator Chief/Case Management LIST OF IDENTIFIED AND POTENTIAL PROBLEMS: Alteration in leisure activities Infection, Actual or Potential Mobility Impaired Pain, Alteration in Comfort Self Care Deficit Skin Integrity, Actual or Potential Urinary Tract Infection (UTI), Actual or Potential PATIENT COULD BE AT RISK FOR COMPLICATIONS FROM ADVERSE MEDICAL CONDITIONS DUE TO HIS/HER COMORBIDITI ES AND THE RIGORS OF THE INTENSIVE REHABILLITATION PROGRAM. METHODS OR INTERVENTIONS TO AVOID COMPLIC ATIONS INCLUDE: - Infection Clinical staff to assess and manage the signs and symptoms of infection including fever, redness, war mth, etc. - Urinary Tract Infection - Falls Patient will be evaluated for Fall Precautions and will be placed on Fall Precautions as indicated pe r protocol. - Skin Breakdown Nursing will assess skin daily using assessment tool and will place on Skin Breakdown Precautions as indicated per protocol. - Pain Clinical staff may employ non-medication methods such as massage, distraction, decrease stimulus, etc . as needed. Clinical staff will assess patient's pain level every shift per protocol to assess and e nsure pain management effectiveness. Medications will be given and the pain level re-assessed. PRELIMINARY PLAN OF CARE: - Physical Therapy Patient needs Physical Therapy for a daily minimum of 1.5 hours at least 5 out of 7 days, to improve: Mobility, Strengthening, Transfers, Stretching, ROM, Endurance, Ability to manage stairs, Gait, and Balance. - Speech Therapy Patient needs Speech Therapy for a daily minimum of 0.5 hours at least 5 out of 7 days, to improve: S wallowing, Cognition, Language Skills, and Compensatory Strategies. - Rehabilitation Nursing Patient requires 24x7 Rehabilitation Nursing for: Pain Issues, Identifying and preventing risk factor s, Monitoring and reporting current medical conditions, Assisting with ambulation and transfer, Lan ting with all ADL-s, Teaching patients about disease process and medications, Family teaching, Provid ing safe environment, Bowel and Bladder Issues, Skin Integrity, and Medication Management. Patient needs Scouring Train Operator Chief and/or Case Management for: Discharge Planning, Arranging Home Equipmen t or Services, and Family Interventions. - Dietary and Nutrition Services Patient needs Dietary and Nutrition Services for: Adequate Nutrition, Nutritional Supplements, and Nu tritional Education. - Occupational Therapy Patient needs Occupational Therapy for a daily minimum of 1.5 hours at least 5 out of 7 days, to impr ove Activities of Daily Living, including: Eating, Grooming, Bathing, Dressing, Toileting, Toilet Tra nsfers, Community Reintegration, Higher functional activities, Adaptive Equipment, Splinting, Househo ld Tasks, and Other activities as determined. QI SCORES: - Self-Care A. Eating 05-Setup or clean-up assistance B. Oral hygiene 05-Setup or clean-up assistance C. Toileting hygiene 03-Partial/moderate assistance E. Shower/bathe self 10-Not attempted due to environmental limitations F. Upper body dressing 03-Partial/moderate assistance G. Lower body dressing 88-Not attempted due to medical condition or safety concerns H. Putting on/taking off footwear 88-Not attempted due to medical condition or safety concerns - Mobility A. Roll left and right 03-Partial/moderate assistance B. Sit to lying 03-Partial/moderate assistance C. Lying to sitting on side of bed 03-Partial/moderate assistance D. Sit to stand 03-Partial/moderate assistance E. Chair/awv-me-iawwl transfer 03-Partial/moderate assistance F. Toilet transfer 03-Partial/moderate assistance G. Car transfer 88-Not attempted due to medical condition or safety concerns I. Walk 10 feet 88-Not attempted due to medical condition or safety concerns J. Walk 50 feet with two turns 88-Not attempted due to medical condition or safety concerns K. Walk 150 feet 88-Not attempted due to medical condition or safety concerns L. Walking 10 feet on uneven surfaces 88-Not attempted due to medical condition or safety concerns M. 1 step (curb) 88-Not attempted due to medical condition or safety concerns N. 4 steps 88-Not attempted due to medical condition or safety concerns O. 12 steps 88-Not attempted due to medical condition or safety concerns P. Picking up object 88-Not attempted due to medical condition or safety concerns - Bladder and Bowel Bladder continence 0-Always continent Bowel continence 0-Always continent - Endurance Poor - Balance Poor - Safety Awareness Poor POTENTIAL FUNCTIONAL GOALS FOR PATIENT TO ACHIEVE BY DISCHARGE: - Safety Precaution Patient will remain free from falls or injury at time of discharge. - Bed Mobility Patient will perform bed mobility at 4-Leana level of assistance. - Transfers Patient will complete transfers from bed to chair at 4-Leana level of assistance. - Mobility Patient will ambulate 150 ft with 4-Leana level of assistance with RW. PATIENT REHAB POTENTIAL Iris KRUGER is able and expected to receive 3 hours of individualized therapy daily on at least 5 o f every 7 days Iris KRUGER's prognosis for significant practical improvement within a reasonable period of time ap pears Good Expected level of measurable improvement will be of a practical value to Iris KRUGER's functional c apacity or adaptations to impairments Has a viable Discharge Plan Medically appropriate; condition is sufficiently stable to participate in intensive rehab program DISCHARGE PLAN: - Estimated Length of Stay (days) 13. - Consensus on plan Discharge plan has been discussed with primary caregiver. Patient/Family is in agreement with the alejandra n. Primary caregiver is in agreement with the plan. - Patient/Family Goals Return home independently. - Planned Living Setting Upon Discharge Home, to live with Family/Relatives. CONCLUSION ON REHABILITATION NECESSITY: I have evaluated patient's pre-admission functional status and, comparing it to the patient's post-ad mission functional status now, I conclude that the pre-admission assessment was accurate. Patient's c ondition on admission supports the medical necessity of admission to IR[facility]. It is safe to proceed with patient's therapy program. SIGNATURE PANEL: (CDT)
--- NOTE | 2020-01-11 17:12 | R.HP ---
FACILITY: [facility] ENCOUNTER DATE AND TIME: 01/11/2020 14:11 (CDT) MR#: [id number] NAME JIMY NARVAEZ ADDRESS: [address] [place] [address] CITY: [place] [address]IP [id number] PHONE: DATE OF : 1940 AGE: 79 SSN# [id number] GENDER: Female DEXTERITY Right-handed MARITAL STATUS RACE White PRE-HOSPITAL LIVING SETTING 01 - Home (private home/apt. board/care, assisted living, fci, transitional living) PRE-HOSPITAL LIVING WITH Family/Relatives ENCOUNTER PHYSICIAN: Dr. Willard Sotelo M.D. REFERRING DOCTOR: Dr Arguelles DATE OF ADMISSION: 01/11/2020 14:12 (Central Daylight Time) REFERRING FACILITY [facility] HOME TYPE AND DETAILS: Type of home: single family house # of steps to enter the residence: 0 # of levels in the residence: 1 # of steps within the residence: 0 Patient renectly moved in with her daughter after living at an assisted living. She was using a scoo ter at her daughters residence. ONSET DATE: 01/08/2020 PRIMARY DIAGNOSIS-RELATED SURGERIES: No surgeries related to the primary diagnosis were performed. HISTORY OF PRESENT ILLNESS (HPI): Pt. is a 79 yo Right-handed white female. On 01/08/2020 she was admitted to [facility] with diagnosis status post fall with left hip pain a nd no fracture. Her impairment category is Debility 16 - Debility (16). Pre-morbidly, Pt. was independent/mod-I in Transfers Control, Locomotion, and Self-Care; and she had good Balance, Social Cognition, Sphincter Control, and Communication. Currently, she has deficits of Transfers Control, Balance, Locomotion, Safety Awareness, and Self-Car e. Pt. is now referred to [facility] for acute in-patient rehabilitation in order to maximize patient's functional independence in activities of daily living, strength, ROM, and mobi lity. Patient has realistic goal of being discharged at assistance level 6-Emilee to reside at Home with Fam aissatou/Relatives. MEDICATION ALLERGIES: Aspirin cephazolin CODEINE FENTANYL HYDROCODONE oxycodone propoxyphene tramadol ENVIRONMENTAL ALLERGIES: None Known - Substance Allergies None Known - Other Allergies None Known PAST MEDICAL HISTORY: Diabetes HTN Restless Leg Dementia AFIB CAD PAST SURGICAL HISTORY: HYSTERECTOMY APPENDECTOMY Cardiac Cathiterization FAMILY HISTORY: Family history is not contributory. SOCIAL HISTORY: - Home Living Family/Relatives REVIEW OF SYSTEMS: - Gen No Chills Fatigue No Fever - Eyes No Double Vision No itchiness - ENMT No Difficulty Swallowing - CVS No Chest Discomfort No Chest Pain Fatigue No Weight Gain - Resp No Cough No Shortness of Breath - GI Continent No Abdominal Pain No Constipation No Diarrhea - Continent No Kidney Pain No Painful Urination No Urinary Urgency - MSK No Joint Pain Muscle Cramps No Stiffness - Skin No Itching No Rash No Suspicious Lesions - Neuro Coordination Difficulty No Difficulty with Concentration No Memory Loss No Seizures Weakness - Psych No Anxiety No Depression No HIV Exposure No Persistent Infections No Seasonal Allergies - Endo No Cold/Heat Intolerance No Excessive Hunger No Excessive Thirst No Excessive Urination PHYSICAL EXAM - Gen Alert and awake Lying in bed No apparent distress Oriented to: person, time, and place - Skin She has a 2 inch area of swelling and redness in the right medial leg. Normacephalic - Eyes No abnormalities - ENMT No abnormalities - Neck No abnormalities No cervical adenopathy - CVS RRR - Chest Clear - Abd Soft - GI Soft Deferred - No abnormalities - Ext Moderate edema in both lower extremities. - MSK 4+/5 weakness in both lower extremities. - Neuro No focal deficits - Psych No abnormalities VITAL SIGNS Temperature: 99.2 F SBP/DBP: 147/55 Pulse: 68 Resp: 16 NURSING: - Shower allowing shower ACTIVITIES OOB only with supervision QI SCORES: - Self-Care A. Eating 05-Setup or clean-up assistance B. Oral hygiene 05-Setup or clean-up assistance C. Toileting hygiene 03-Partial/moderate assistance E. Shower/bathe self 10-Not attempted due to environmental limitations F. Upper body dressing 03-Partial/moderate assistance G. Lower body dressing 88-Not attempted due to medical condition or safety concerns H. Putting on/taking off footwear 88-Not attempted due to medical condition or safety concerns - Mobility A. Roll left and right 03-Partial/moderate assistance B. Sit to lying 03-Partial/moderate assistance C. Lying to sitting on side of bed 03-Partial/moderate assistance D. Sit to stand 03-Partial/moderate assistance E. Chair/nns-ay-udrrd transfer 03-Partial/moderate assistance F. Toilet transfer 03-Partial/moderate assistance G. Car transfer 88-Not attempted due to medical condition or safety concerns I. Walk 10 feet 88-Not attempted due to medical condition or safety concerns J. Walk 50 feet with two turns 88-Not attempted due to medical condition or safety concerns K. Walk 150 feet 88-Not attempted due to medical condition or safety concerns L. Walking 10 feet on uneven surfaces 88-Not attempted due to medical condition or safety concerns M. 1 step (curb) 88-Not attempted due to medical condition or safety concerns N. 4 steps 88-Not attempted due to medical condition or safety concerns O. 12 steps 88-Not attempted due to medical condition or safety concerns P. Picking up object 88-Not attempted due to medical condition or safety concerns - Bladder and Bowel Bladder continence 0-Always continent Bowel continence 0-Always continent - Endurance Poor - Balance Poor - Safety Awareness Poor CURRENT FUNC. DEFICITS: Self-Care, Mobility, Endurance, Balance, and Safety Awareness MEDICATIONS: - Other See attached MAR (Medication Administration Record) ASSESSMENT: Pt. is a 79 yo Right-handed white female.On 01/08/2020 she was admitted to [facility] with diagno sis status post fall with left hip pain and no fracture.Her impairment category is Debility 16 - Abbie ility (16).Pre-morbidly, Pt. was independent/mod-I in Transfers Control, Locomotion, and Self-Care; a nd she had good Balance, Social Cognition, Sphincter Control, and Communication.Currently, she has de ficits of Transfers Control, Balance, Locomotion, Safety Awareness, and Self-Care.Pt. is now referred to [facility] for acute in-patient rehabilitation in order to maximize patien t's functional independence in activities of daily living, strength, ROM, and mobility.- Rehab Goal Patient has realistic goal of being discharged at assistance level 6-Emilee to reside at Home with Fam aissatou/Relatives. REHAB PLAN: - Physical Therapy Gait dysfunction - to improve, our physical therapists will perform initial evaluation of pt's status upon admission and devise an individualized program for Gait Training, and Wheel Chair mobility Inability to transfer - to improve, our physical therapists will perform initial evaluation of pt's s tatus upon admission and devise an individualized program for Bed mobility Need for home safety evaluation - to improve, our physical therapists will perform initial evaluation of pt's status upon admission and devise an individualized program for Home Evaluation Need in caregiver upon discharge - to improve, our physical therapists will perform initial evaluatio n of pt's status upon admission and devise an individualized program for Caregiver Training Edema - to improve, our physical therapists will perform initial evaluation of pt's status upon admi ssion and devise an individualized program for Elevation Training, and Lymphedema Therapy New precaution - to improve, our physical therapists will perform initial evaluation of pt's status u mazin admission and devise an individualized program for Patient precaution education Poor balance - to improve, our physical therapists will perform initial evaluation of pt's status upo n admission and devise an individualized program for Balance Training Weakness - to improve, our physical therapists will perform initial evaluation of pt's status upon ad mission and devise an individualized program for Aquatic Therapy, Neuromuscular Reeducation, and Stre ngthening Achieving independence - to improve, our physical therapists will perform initial evaluation of pt's status upon admission and devise an individualized program for Community Reintegration Activities - Occupational Therapy ADL deficits - to improve, our occupation therapists will perform initial evaluation of pt's status u mazin admission and devise an individualized program for Bathing, Bed mobility, Community Reintegration , Cooking, Dressing, Eating, Fine Motor Skills, Grooming, Homemaking, Kitchen Mobility, Laundry, Nadine ent Education, Safety Awareness, Splinting - Positioning, Transfers(Toilet, Tub, Shower), and Wheel C hair Management Need for care partner - to improve, our occupation therapists will perform initial evaluation of pt's s tatus upon admission and devise an individualized program for Caregiver Training Weakness - to improve, our occupation therapists will perform initial evaluation of pt's status upon admission and devise an individualized program for Aquatic Therapy, Balance, Endurance, UE ROM, and U E strengthening MEDICAL PLAN: - Diet Type Start Regular - Diet - Liquid Texture Start Regular - Tube Feed Start N/A - Other See attached MAR (Medication Administration Record) - Diet - Solid Texture Regular - Shower shower DISCHARGE PLAN: - Estimated Length of Stay (days) 13. - Consensus on plan Discharge plan has been discussed with primary caregiver. Patient/Family is in agreement with the alejandra n. Primary caregiver is in agreement with the plan. - Patient/Family Goals Return home independently. - Planned Living Setting Upon Discharge Home, to live with Family/Relatives. SIGNATURE PANEL: (CDT)
[2020-01-11] MEDS: DOCUSATE NA/SENNA CONC 1 TAB PO PRN (20:13)
[2020-01-12] MEDS: LEVOTHYROXINE SOD 0.075 MG TAB PO SCH (06:32)
[2020-01-12] MEDS: ACETAMINOPHEN 500 MG TAB PO PRN (06:35)
[2020-01-12] MEDS ORDERED: SUPER B COMPLEX PO SCH (08:00)
[2020-01-12] MEDS: APIXABAN 5 MG TABLET PO SCH (08:06)
[2020-01-12] MEDS: VITAMIN B COMPLEX 1 CAP PO SCH (08:06)
[2020-01-12] MEDS: DOXYCYCLINE 100 MG CAP PO SCH ×2 (08:06→20:20)
[2020-01-12] MEDS: FORMULATION-R RECTAL 30GM PR PRN (08:06)
[2020-01-12] MEDS: DONEPEZIL HCL 5 MG TAB PO SCH (08:07)
[2020-01-12] MEDS: FOLIC ACID 1 MG TABLET PO SCH (08:07)
[2020-01-12] MEDS: METOPROLOL XL 25 MG TAB PO SCH ×2 (08:07→20:20)
[2020-01-12] MEDS: AMIODARONE HCL 200 MG TAB PO SCH (08:07)
[2020-01-12] MEDS: VITAMIN D 5,000 UNIT CAP PO SCH (08:10)
--- NOTE | 2020-01-12 09:38 | P.RH.PN ---
Estimated Length of Stay: 10 Expected Discharge Date: 01/20/20 Discharge Disposition Plan: Home Family Support: Yes Custodial Goal: Mobility, Transfers, Self Care Vital Signs: Last Vital Signs Temp 98.4 F 01/11/20 20:00 Pulse 67 01/12/20 08:07 Resp 18 01/11/20 20:00 BP 131/47 L 01/12/20 08:07 Pulse Ox 94 01/11/20 20:00 Laboratory: Laboratory Last Values WBC 6.4 K/uL (4.3-10.9) 01/11/20 05:45 RBC 4.60 M/uL (3.86-4.86) 01/11/20 05:45 Hgb 13.6 g/dL (12.0-15.0) 01/11/20 05:45 Hct 40.1 % (36.0-45.0) 01/11/20 05:45 MCV 87.0 fL (80-100) 01/11/20 05:45 MCH 29.6 pg (27.0-35.0) 01/11/20 05:45 MCHC 34.0 g/dL (32.0-36.0) 01/11/20 05:45 RDW 14.0 % (12.1-15.2) 01/11/20 05:45 Plt Count 165 K/uL (152-406) 01/11/20 05:45 MPV 8.5 fL (7.6-11.3) 01/11/20 05:45 Neutrophils % 66.1 % (41.7-73.7) 01/11/20 05:45 Lymphocytes % 19.2 % (15.3-44.8) 01/11/20 05:45 Monocytes % 10.8 % (3.3-12.3) 01/11/20 05:45 Eosinophils % 3.2 % (0-4.4) 01/11/20 05:45 Basophils % 0.7 % (0-1.3) 01/11/20 05:45 Absolute Neutrophils 4.2 K/uL (1.8-8.0) 01/11/20 05:45 Absolute Lymphocytes 1.2 K/uL (0.7-4.9) 01/11/20 05:45 Absolute Monocytes 0.7 K/uL (0.1-1.3) 01/11/20 05:45 Absolute Eosinophils 0.2 K/uL (0-0.5) 01/11/20 05:45 Absolute Basophils 0.0 K/uL (0-0.5) 01/11/20 05:45 Sodium 142 mmol/L (136-145) 01/11/20 05:45 Potassium 3.8 mmol/L (3.5-5.1) 01/11/20 05:45 Chloride 110 mmol/L (98-107) H 01/11/20 05:45 Carbon Dioxide 25 mmol/L (21-32) 01/11/20 05:45 BUN 19 mg/dL (7-18) H 01/11/20 05:45 Creatinine 0.71 mg/dL (0.55-1.3) 01/11/20 05:45 Estimated GFR 79 mL/min (=/>90) L 01/11/20 05:45 Glucose 100 mg/dL (74-106) 01/11/20 05:45 POC Glucose 125 mg/dl (65-120) H 01/12/20 06:57 Calcium 8.2 mg/dL (8.5-10.1) L 01/11/20 05:45 Magnesium 1.9 mg/dL (1.8-2.4) 01/11/20 05:45 Albumin 3.0 g/dL (3.4-5.0) L 01/11/20 05:45 Prealbumin 13.6 mg/dL (20-40) L 01/11/20 05:45 Weight: 370 lb 12.8 oz Wound Present: Yes Closed Surgical Incision Present: No Negative Pressure Wound Therapy Present: No Physician Update: Labs reviewed and are normal. She is at maximum assistance due to debility and knee pain. She does OK with grab bars. She is constipated and had prune juice. She is on a low carb diet. Functional Improvement: pt presents with severe generalized strength deficits. pt demonstrates poor trunk strength as well. pt exhibits poor balance in standing. pt limited by pain in her bilateral LEs with L LE experiencing greater pain. pt exhibits difficulties with sit -> stand transfers from low surfaces due to pain and weakness. pt experiences poor tolerance to functional activity due to pain, weakness, and fatigue. Skilled PT services are necessary to address the above mentioned impairments and functional limitations. Summary: Patient's care plan and alf goals have been reviewed and revised as necessary. Please see the Rehabilitation Signature page for all necessary signatures.
[2020-01-12] MEDS ORDERED: GLUCAGON 1 MG/VIAL IM PRN (11:44)
[2020-01-12] MEDS ORDERED: D50W 25 GM/50 ML SYRINGE/VIAL IV PRN (11:44)
[2020-01-12] MEDS: INSULIN -REGULAR HUMAN 50 UNIT/0.5 ML ML SQ SCH ×2 (16:30→20:06)
[2020-01-12] MEDS: DOCUSATE NA/SENNA CONC 1 TAB PO PRN (20:21)
--- NOTE | 2020-01-13 02:12 | FAST ---
SHIFT START DATE/TIME: 01/12/2020 19:00 (CDT) SHIFT END DATE/TIME: 01/13/2020 07:00 (CDT) NAME JIMY NARVAEZ DATE OF : 1940 DATE OF ADMISSION: 01/11/2020 14:12 (CDT) PHONE: AGE: 79 N# [id number] GENDER: Female ENCOUNTER PHYSICIAN: Dr. Willard Sotelo M.D. ADMISSION DIAGNOSIS: - Debility 16 - Debility (16) status post fall with left hip pain and no fracture. EATING: Not assessed/no information CODE: - ORAL HYGIENE: Not assessed/no information CODE: - TOILETING HYGIENE: TOILETING HYGIENE - STEP 1: Does the patient complete the activity by him/herself with no assistance (physical, verbal/nonverbal cueing, setup/clean-up)? No. TOILETING HYGIENE - STEP 2: Does the patient need only setup/clean-up assistance from one helper? No. TOILETING HYGIENE - STEP 3: Does the patient need only verbal/nonverbal cueing or touching/steadying/contact guard assistance fro m one helper? No. TOILETING HYGIENE - STEP 4: Does the patient need physical assistance - for example lifting or trunk support from one helper - wi th the helper providing less than half of the effort? Yes. 1. [id number] ADMISSION PERFORMANCE: Partial/moderate assistance CODE: 03 BATHING: Not assessed/no information CODE: - DRESSING - UPPER BODY: Not assessed/no information CODE: - DRESSING - LOWER BODY: Not assessed/no information CODE: - PUTTING ON/TAKING OFF FOOTWEAR: Not assessed/no information CODE: - ROLL LEFT AND RIGHT: ROLL LEFT AND RIGHT - STEP 1: Does the patient complete the activity by him/herself with no assistance (physical, verbal/nonverbal cueing, setup/clean-up)? No. ROLL LEFT AND RIGHT - STEP 2: Does the patient need only setup/clean-up assistance from one helper? No. ROLL LEFT AND RIGHT - STEP 3: Does the patient need only verbal/nonverbal cueing or touching/steadying/contact guard assistance fro m one helper? No. ROLL LEFT AND RIGHT - STEP 4: Does the patient need physical assistance - for example lifting or trunk support from one helper - wi th the helper providing less than half of the effort? No. ROLL LEFT AND RIGHT - STEP 5: Does the patient need physical assistance - for example lifting or trunk support from one helper - wi th the helper providing more than half of the effort? No. ROLL LEFT AND RIGHT - STEP 6: Does the helper provide all of the effort? OR Is the assistance of two or more helpers required to co mplete the activity? Yes. 1. [id number] ADMISSION PERFORMANCE: Dependent CODE: 01 SIT TO LYING: SIT TO LYING - STEP 1: Does the patient complete the activity by him/herself with no assistance (physical, verbal/nonverbal cueing, setup/clean-up)? No. SIT TO LYING - STEP 2: Does the patient need only setup/clean-up assistance from one helper? No. SIT TO LYING - STEP 3: Does the patient need only verbal/nonverbal cueing or touching/steadying/contact guard assistance fro m one helper? No. SIT TO LYING - STEP 4: Does the patient need physical assistance - for example lifting or trunk support from one helper - wi th the helper providing less than half of the effort? Yes. 1. [id number] ADMISSION PERFORMANCE: Partial/moderate assistance CODE: 03 LYING TO SITTING: LYING TO SITTING ON SIDE OF BED - STEP 1: Does the patient complete the activity by him/herself with no assistance (physical, verbal/nonverbal cueing, setup/clean-up)? No. LYING TO SITTING ON SIDE OF BED - STEP 2: Does the patient need only setup/clean-up assistance from one helper? No. LYING TO SITTING ON SIDE OF BED - STEP 3: Does the patient need only verbal/nonverbal cueing or touching/steadying/contact guard assistance fro m one helper? No. LYING TO SITTING ON SIDE OF BED - STEP 4: Does the patient need physical assistance - for example lifting or trunk support from one helper - wi th the helper providing less than half of the effort? Yes. 1. [id number] ADMISSION PERFORMANCE: Partial/moderate assistance CODE: 03 SIT TO STAND: SIT TO STAND - STEP 1: Does the patient complete the activity by him/herself with no assistance (physical, verbal/nonverbal cueing, setup/clean-up)? No. SIT TO STAND - STEP 2: Does the patient need only setup/clean-up assistance from one helper? No. SIT TO STAND - STEP 3: Does the patient need only verbal/nonverbal cueing or touching/steadying/contact guard assistance fro m one helper? No. SIT TO STAND - STEP 4: Does the patient need physical assistance - for example lifting or trunk support from one helper - wi th the helper providing less than half of the effort? Yes. 1. [id number] ADMISSION PERFORMANCE: Partial/moderate assistance CODE: 03 TRANSFERS: BED, CHAIR: CHAIR/[id number] TRANSFER - STEP 1: Does the patient complete the activity by him/herself with no assistance (physical, verbal/nonverbal cueing, setup/clean-up)? No. CHAIR/[id number] TRANSFER - STEP 2: Does the patient need only setup/clean-up assistance from one helper? No. CHAIR/[id number] TRANSFER - STEP 3: Does the patient need only verbal/nonverbal cueing or touching/steadying/contact guard assistance fro m one helper? No. CHAIR/[id number] TRANSFER - STEP 4: Does the patient need physical assistance - for example lifting or trunk support from one helper - wi th the helper providing less than half of the effort? Yes. 1. [id number] ADMISSION PERFORMANCE: Partial/moderate assistance CODE: 03 TRANSFER TOILET: TOILET TRANSFER - STEP 1: Does the patient complete the activity by him/herself with no assistance (physical, verbal/nonverbal cueing, setup/clean-up)? No. TOILET TRANSFER - STEP 2: Does the patient need only setup/clean-up assistance from one helper? No. TOILET TRANSFER - STEP 3: Does the patient need only verbal/nonverbal cueing or touching/steadying/contact guard assistance fro m one helper? No. TOILET TRANSFER - STEP 4: Does the patient need physical assistance - for example lifting or trunk support from one helper - wi th the helper providing less than half of the effort? Yes. 1. [id number] ADMISSION PERFORMANCE: Partial/moderate assistance CODE: 03 TRANSFERS: CAR: Not assessed/no information CODE: - WALK 10 FEET: Not assessed/no information CODE: - 1 STEP (CURB): Not assessed/no information CODE: - PICKING UP OBJECT: Not assessed/no information CODE: - DOES THE PATIENT USE A WHEELCHAIR/SCOOTER? CODE: EXPR WHEEL 50 FEET WITH TWO TURNS: Not assessed/no information CODE: - INDICATE THE TYPE OF WHEELCHAIR/SCOOTER USED: CODE: EXPR WHEEL 150 FEET: Not assessed/no information CODE: - INDICATE THE TYPE OF WHEELCHAIR/SCOOTER USED: CODE: EXPR BLADDER AND BOWEL: H350. BLADDER CONTINENCE (3-DAY ASSESSMENT PERIOD): Incontinent less than daily (e.g., once or twice during the 3-day assessment period) CODE: 2 H400. BOWEL CONTINENCE (3-DAY ASSESSMENT PERIOD): Always continent CODE: 0
[2020-01-13] MEDS: ACETAMINOPHEN 500 MG TAB PO PRN ×3 (02:48→20:06)
[2020-01-13] MEDS: LEVOTHYROXINE SOD 0.075 MG TAB PO SCH (06:23)
[2020-01-13] MEDS: INSULIN -REGULAR HUMAN 50 UNIT/0.5 ML ML SQ SCH ×4 (07:30→20:04)
[2020-01-13] MEDS: METOPROLOL XL 25 MG TAB PO SCH ×2 (08:00→20:07)
[2020-01-13] MEDS: DONEPEZIL HCL 5 MG TAB PO SCH (08:47)
[2020-01-13] MEDS: AMIODARONE HCL 200 MG TAB PO SCH (08:48)
[2020-01-13] MEDS: APIXABAN 5 MG TABLET PO SCH (08:48)
[2020-01-13] MEDS: DOXYCYCLINE 100 MG CAP PO SCH ×2 (08:48→20:07)
[2020-01-13] MEDS: VITAMIN B COMPLEX 1 CAP PO SCH (08:48)
[2020-01-13] MEDS: FOLIC ACID 1 MG TABLET PO SCH (08:48)
[2020-01-13] MEDS: FORMULATION-R RECTAL 30GM PR PRN (09:56)
--- NOTE | 2020-01-13 11:37 | FAST ---
ENCOUNTER DATE AND TIME: 01/13/2020 08:00 (CDT) NAME JIMY NARVAEZ DATE OF : 1940 DATE OF ADMISSION: 01/11/2020 14:12 (CDT) PHONE: AGE: 79 N# [id number] GENDER: Female ENCOUNTER PHYSICIAN: Dr. Willard Sotelo M.D. ADMISSION DIAGNOSIS: - Debility 16 - Debility (16) status post fall with left hip pain and no fracture. EATING: Not assessed/no information CODE: - ORAL HYGIENE: ORAL HYGIENE - STEP 1: Does the patient complete the activity by him/herself with no assistance (physical, verbal/nonverbal cueing, setup/clean-up)? Yes. 1. [id number] ADMISSION PERFORMANCE: Independent CODE: 06 TOILETING HYGIENE: Not assessed/no information CODE: - BATHING: SHOWER/BATHE SELF - STEP 1: Does the patient complete the activity by him/herself with no assistance (physical, verbal/nonverbal cueing, setup/clean-up)? No. SHOWER/BATHE SELF - STEP 2: Does the patient need only setup/clean-up assistance from one helper? No. SHOWER/BATHE SELF - STEP 3: Does the patient need only verbal/nonverbal cueing or touching/steadying/contact guard assistance fro m one helper? No. SHOWER/BATHE SELF - STEP 4: Does the patient need physical assistance - for example lifting or trunk support from one helper - wi th the helper providing less than half of the effort? Yes. 1. [id number] ADMISSION PERFORMANCE: Partial/moderate assistance CODE: 03 DRESSING - UPPER BODY: DRESSING - UPPER BODY - STEP 1: Does the patient complete the activity by him/herself with no assistance (physical, verbal/nonverbal cueing, setup/clean-up)? No. DRESSING - UPPER BODY - STEP 2: Does the patient need only setup/clean-up assistance from one helper? Yes. 1. [id number] ADMISSION PERFORMANCE: Setup or clean-up assistance CODE: 05 DRESSING - LOWER BODY: DRESSING - LOWER BODY - STEP 1: Does the patient complete the activity by him/herself with no assistance (physical, verbal/nonverbal cueing, setup/clean-up)? No. DRESSING - LOWER BODY - STEP 2: Does the patient need only setup/clean-up assistance from one helper? No. DRESSING - LOWER BODY - STEP 3: Does the patient need only verbal/nonverbal cueing or touching/steadying/contact guard assistance fro m one helper? Yes. 1. [id number] ADMISSION PERFORMANCE: Supervision or touching assistance CODE: 04 PUTTING ON/TAKING OFF FOOTWEAR: FOOTWEAR - STEP 1: Does the patient complete the activity by him/herself with no assistance (physical, verbal/nonverbal cueing, setup/clean-up)? No. FOOTWEAR - STEP 2: Does the patient need only setup/clean-up assistance from one helper? No. FOOTWEAR - STEP 3: Does the patient need only verbal/nonverbal cueing or touching/steadying/contact guard assistance fro m one helper? No. FOOTWEAR - STEP 4: Does the patient need physical assistance - for example lifting or trunk support from one helper - wi th the helper providing less than half of the effort? Yes. 1. [id number] ADMISSION PERFORMANCE: Partial/moderate assistance CODE: 03 DOES THE PATIENT USE A WHEELCHAIR/SCOOTER? CODE: EXPR INDICATE THE TYPE OF WHEELCHAIR/SCOOTER USED: CODE: EXPR INDICATE THE TYPE OF WHEELCHAIR/SCOOTER USED: CODE: EXPR BLADDER AND BOWEL: CODE: EXPR CODE: EXPR SIGNATURE PANEL: The following modified sections: 1. [id number] Admission Performance, 1. [id number] Admission Performance, 1. [id number] Admission Performance, 1. [id number] Admission Performance, 1. [id number] Admission Performance were [electronically] signed by GAYATHRI Henning on WedJan 13 2020 11:36:31 GMT-0500 (Central Daylight Time)
[2020-01-14] MEDS: LEVOTHYROXINE SOD 0.075 MG TAB PO SCH (06:27)
[2020-01-14] MEDS: INSULIN -REGULAR HUMAN 50 UNIT/0.5 ML ML SQ SCH ×4 (07:30→21:00)
[2020-01-14] MEDS: METOPROLOL XL 25 MG TAB PO SCH ×2 (08:00→20:55)
[2020-01-14] MEDS: ACETAMINOPHEN 500 MG TAB PO PRN ×2 (08:41→16:45)
[2020-01-14] MEDS: FOLIC ACID 1 MG TABLET PO SCH (08:43)
[2020-01-14] MEDS: DONEPEZIL HCL 5 MG TAB PO SCH (08:43)
[2020-01-14] MEDS: VITAMIN B COMPLEX 1 CAP PO SCH (08:43)
[2020-01-14] MEDS: DOXYCYCLINE 100 MG CAP PO SCH ×2 (08:43→20:12)
[2020-01-14] MEDS: AMIODARONE HCL 200 MG TAB PO SCH (08:44)
[2020-01-14] MEDS: FORMULATION-R RECTAL 30GM PR PRN ×2 (08:44→20:12)
[2020-01-14] MEDS: APIXABAN 5 MG TABLET PO SCH (08:44)
[2020-01-14] MEDS: DOCUSATE NA/SENNA CONC 1 TAB PO PRN (20:12)
[2020-01-15] MEDS: LEVOTHYROXINE SOD 0.075 MG TAB PO SCH (06:13)
[2020-01-15] MEDS: INSULIN -REGULAR HUMAN 50 UNIT/0.5 ML ML SQ SCH ×4 (07:30→21:00)
[2020-01-15] MEDS: APIXABAN 5 MG TABLET PO SCH (07:58)
[2020-01-15] MEDS: VITAMIN B COMPLEX 1 CAP PO SCH (07:58)
[2020-01-15] MEDS: DOXYCYCLINE 100 MG CAP PO SCH ×2 (07:58→20:30)
[2020-01-15] MEDS: AMIODARONE HCL 200 MG TAB PO SCH (07:58)
[2020-01-15] MEDS: FOLIC ACID 1 MG TABLET PO SCH (07:59)
[2020-01-15] MEDS: DONEPEZIL HCL 5 MG TAB PO SCH (07:59)
[2020-01-15] MEDS: METOPROLOL XL 25 MG TAB PO SCH ×2 (07:59→20:31)
[2020-01-15] MEDS: VITAMIN D 5,000 UNIT CAP PO SCH (07:59)
--- NOTE | 2020-01-15 14:13 | FAST ---
ENCOUNTER DATE AND TIME: 01/15/2020 08:00 (CDT) NAME JIMY NARVAEZ DATE OF : 1940 DATE OF ADMISSION: 01/11/2020 14:12 (CDT) PHONE: AGE: 79 N# [id number] GENDER: Female ENCOUNTER PHYSICIAN: Dr. Willard Sotelo M.D. ADMISSION DIAGNOSIS: - Debility 16 - Debility (16) status post fall with left hip pain and no fracture. EATING: Not assessed/no information CODE: - ORAL HYGIENE: ORAL HYGIENE - STEP 1: Does the patient complete the activity by him/herself with no assistance (physical, verbal/nonverbal cueing, setup/clean-up)? Yes. 1. [id number] ADMISSION PERFORMANCE: Independent CODE: 06 TOILETING HYGIENE: Not assessed/no information CODE: - BATHING: SHOWER/BATHE SELF - STEP 1: Does the patient complete the activity by him/herself with no assistance (physical, verbal/nonverbal cueing, setup/clean-up)? No. SHOWER/BATHE SELF - STEP 2: Does the patient need only setup/clean-up assistance from one helper? No. SHOWER/BATHE SELF - STEP 3: Does the patient need only verbal/nonverbal cueing or touching/steadying/contact guard assistance fro m one helper? No. SHOWER/BATHE SELF - STEP 4: Does the patient need physical assistance - for example lifting or trunk support from one helper - wi th the helper providing less than half of the effort? Yes. 1. [id number] ADMISSION PERFORMANCE: Partial/moderate assistance CODE: 03 DRESSING - UPPER BODY: DRESSING - UPPER BODY - STEP 1: Does the patient complete the activity by him/herself with no assistance (physical, verbal/nonverbal cueing, setup/clean-up)? No. DRESSING - UPPER BODY - STEP 2: Does the patient need only setup/clean-up assistance from one helper? Yes. 1. [id number] ADMISSION PERFORMANCE: Setup or clean-up assistance CODE: 05 DRESSING - LOWER BODY: DRESSING - LOWER BODY - STEP 1: Does the patient complete the activity by him/herself with no assistance (physical, verbal/nonverbal cueing, setup/clean-up)? No. DRESSING - LOWER BODY - STEP 2: Does the patient need only setup/clean-up assistance from one helper? No. DRESSING - LOWER BODY - STEP 3: Does the patient need only verbal/nonverbal cueing or touching/steadying/contact guard assistance fro m one helper? Yes. 1. [id number] ADMISSION PERFORMANCE: Supervision or touching assistance CODE: 04 PUTTING ON/TAKING OFF FOOTWEAR: FOOTWEAR - STEP 1: Does the patient complete the activity by him/herself with no assistance (physical, verbal/nonverbal cueing, setup/clean-up)? No. FOOTWEAR - STEP 2: Does the patient need only setup/clean-up assistance from one helper? No. FOOTWEAR - STEP 3: Does the patient need only verbal/nonverbal cueing or touching/steadying/contact guard assistance fro m one helper? Yes. 1. [id number] ADMISSION PERFORMANCE: Supervision or touching assistance CODE: 04 DOES THE PATIENT USE A WHEELCHAIR/SCOOTER? CODE: EXPR INDICATE THE TYPE OF WHEELCHAIR/SCOOTER USED: CODE: EXPR INDICATE THE TYPE OF WHEELCHAIR/SCOOTER USED: CODE: EXPR BLADDER AND BOWEL: CODE: EXPR CODE: EXPR SIGNATURE PANEL: The following modified sections: 1. [id number] Admission Performance, 1. [id number] Admission Performance, 1. [id number] Admission Performance, 1. [id number] Admission Performance, 1. [id number] Admission Performance were [electronically] signed by GAYATHRI Henning on WedJan 15 2020 14:12:04 GMT-0500 (Central Daylight Time)
--- NOTE | 2020-01-15 16:26 | FAST ---
SHIFT START DATE/TIME: 01/15/2020 07:00 (CDT) SHIFT END DATE/TIME: 01/15/2020 19:00 (CDT) NAME JIMY NARVAEZ DATE OF : 1940 DATE OF ADMISSION: 01/11/2020 14:12 (CDT) PHONE: AGE: 79 N# [id number] GENDER: Female ENCOUNTER PHYSICIAN: Dr. Willard Sotelo M.D. ADMISSION DIAGNOSIS: - Debility 16 - Debility (16) status post fall with left hip pain and no fracture. EATING: EATING - STEP 1: Does the patient complete the activity by him/herself with no assistance (physical, verbal/nonverbal cueing, setup/clean-up)? No. EATING - STEP 2: Does the patient need only setup/clean-up assistance from one helper? Yes. 1. [id number] ADMISSION PERFORMANCE: Setup or clean-up assistance CODE: 05 ORAL HYGIENE: ORAL HYGIENE - STEP 1: Does the patient complete the activity by him/herself with no assistance (physical, verbal/nonverbal cueing, setup/clean-up)? No. ORAL HYGIENE - STEP 2: Does the patient need only setup/clean-up assistance from one helper? Yes. 1. [id number] ADMISSION PERFORMANCE: Setup or clean-up assistance CODE: 05 TOILETING HYGIENE: TOILETING HYGIENE - STEP 1: Does the patient complete the activity by him/herself with no assistance (physical, verbal/nonverbal cueing, setup/clean-up)? No. TOILETING HYGIENE - STEP 2: Does the patient need only setup/clean-up assistance from one helper? No. TOILETING HYGIENE - STEP 3: Does the patient need only verbal/nonverbal cueing or touching/steadying/contact guard assistance fro m one helper? Yes. 1. [id number] ADMISSION PERFORMANCE: Supervision or touching assistance CODE: 04 BATHING: Not assessed/no information CODE: - DRESSING - UPPER BODY: DRESSING - UPPER BODY - STEP 1: Does the patient complete the activity by him/herself with no assistance (physical, verbal/nonverbal cueing, setup/clean-up)? No. DRESSING - UPPER BODY - STEP 2: Does the patient need only setup/clean-up assistance from one helper? Yes. 1. [id number] ADMISSION PERFORMANCE: Setup or clean-up assistance CODE: 05 DRESSING - LOWER BODY: DRESSING - LOWER BODY - STEP 1: Does the patient complete the activity by him/herself with no assistance (physical, verbal/nonverbal cueing, setup/clean-up)? No. DRESSING - LOWER BODY - STEP 2: Does the patient need only setup/clean-up assistance from one helper? No. DRESSING - LOWER BODY - STEP 3: Does the patient need only verbal/nonverbal cueing or touching/steadying/contact guard assistance fro m one helper? Yes. 1. [id number] ADMISSION PERFORMANCE: Supervision or touching assistance CODE: 04 PUTTING ON/TAKING OFF FOOTWEAR: FOOTWEAR - STEP 1: Does the patient complete the activity by him/herself with no assistance (physical, verbal/nonverbal cueing, setup/clean-up)? No. FOOTWEAR - STEP 2: Does the patient need only setup/clean-up assistance from one helper? No. FOOTWEAR - STEP 3: Does the patient need only verbal/nonverbal cueing or touching/steadying/contact guard assistance fro m one helper? Yes. 1. [id number] ADMISSION PERFORMANCE: Supervision or touching assistance CODE: 04 ROLL LEFT AND RIGHT: ROLL LEFT AND RIGHT - STEP 1: Does the patient complete the activity by him/herself with no assistance (physical, verbal/nonverbal cueing, setup/clean-up)? No. ROLL LEFT AND RIGHT - STEP 2: Does the patient need only setup/clean-up assistance from one helper? No. ROLL LEFT AND RIGHT - STEP 3: Does the patient need only verbal/nonverbal cueing or touching/steadying/contact guard assistance fro m one helper? No. ROLL LEFT AND RIGHT - STEP 4: Does the patient need physical assistance - for example lifting or trunk support from one helper - wi th the helper providing less than half of the effort? Yes. 1. [id number] ADMISSION PERFORMANCE: Partial/moderate assistance CODE: 03 SIT TO LYING: SIT TO LYING - STEP 1: Does the patient complete the activity by him/herself with no assistance (physical, verbal/nonverbal cueing, setup/clean-up)? No. SIT TO LYING - STEP 2: Does the patient need only setup/clean-up assistance from one helper? No. SIT TO LYING - STEP 3: Does the patient need only verbal/nonverbal cueing or touching/steadying/contact guard assistance fro m one helper? No. SIT TO LYING - STEP 4: Does the patient need physical assistance - for example lifting or trunk support from one helper - wi th the helper providing less than half of the effort? Yes. 1. [id number] ADMISSION PERFORMANCE: Partial/moderate assistance CODE: 03 LYING TO SITTING: LYING TO SITTING ON SIDE OF BED - STEP 1: Does the patient complete the activity by him/herself with no assistance (physical, verbal/nonverbal cueing, setup/clean-up)? No. LYING TO SITTING ON SIDE OF BED - STEP 2: Does the patient need only setup/clean-up assistance from one helper? No. LYING TO SITTING ON SIDE OF BED - STEP 3: Does the patient need only verbal/nonverbal cueing or touching/steadying/contact guard assistance fro m one helper? No. LYING TO SITTING ON SIDE OF BED - STEP 4: Does the patient need physical assistance - for example lifting or trunk support from one helper - wi th the helper providing less than half of the effort? Yes. 1. [id number] ADMISSION PERFORMANCE: Partial/moderate assistance CODE: 03 SIT TO STAND: SIT TO STAND - STEP 1: Does the patient complete the activity by him/herself with no assistance (physical, verbal/nonverbal cueing, setup/clean-up)? No. SIT TO STAND - STEP 2: Does the patient need only setup/clean-up assistance from one helper? No. SIT TO STAND - STEP 3: Does the patient need only verbal/nonverbal cueing or touching/steadying/contact guard assistance fro m one helper? No. SIT TO STAND - STEP 4: Does the patient need physical assistance - for example lifting or trunk support from one helper - wi th the helper providing less than half of the effort? Yes. 1. [id number] ADMISSION PERFORMANCE: Partial/moderate assistance CODE: 03 TRANSFERS: BED, CHAIR: CHAIR/[id number]-FOVTA TRANSFER - STEP 1: Does the patient complete the activity by him/herself with no assistance (physical, verbal/nonverbal cueing, setup/clean-up)? No. CHAIR/[id number]-[id number] TRANSFER - STEP 2: Does the patient need only setup/clean-up assistance from one helper? No. CHAIR/[id number] TRANSFER - STEP 3: Does the patient need only verbal/nonverbal cueing or touching/steadying/contact guard assistance fro m one helper? No. CHAIR/[id number]-[id number] TRANSFER - STEP 4: Does the patient need physical assistance - for example lifting or trunk support from one helper - wi th the helper providing less than half of the effort? Yes. 1. [id number] ADMISSION PERFORMANCE: Partial/moderate assistance CODE: 03 TRANSFER TOILET: TOILET TRANSFER - STEP 1: Does the patient complete the activity by him/herself with no assistance (physical, verbal/nonverbal cueing, setup/clean-up)? No. TOILET TRANSFER - STEP 2: Does the patient need only setup/clean-up assistance from one helper? No. TOILET TRANSFER - STEP 3: Does the patient need only verbal/nonverbal cueing or touching/steadying/contact guard assistance fro m one helper? No. TOILET TRANSFER - STEP 4: Does the patient need physical assistance - for example lifting or trunk support from one helper - wi th the helper providing less than half of the effort? Yes. 1. [id number] ADMISSION PERFORMANCE: Partial/moderate assistance CODE: 03 TRANSFERS: CAR: Not assessed/no information CODE: - WALK 10 FEET: Not assessed/no information CODE: - 1 STEP (CURB): Not assessed/no information CODE: - PICKING UP OBJECT: Not assessed/no information CODE: - DOES THE PATIENT USE A WHEELCHAIR/SCOOTER? Q1. DOES THE PATIENT USE A WHEELCHAIR/SCOOTER?: Yes CODE: 1 WHEEL 50 FEET WITH TWO TURNS: WHEEL 50 FEET WITH TWO TURNS - STEP 1: Does the patient complete the activity by him/herself with no assistance (physical, verbal/nonverbal cueing, setup/clean-up)? No. WHEEL 50 FEET WITH TWO TURNS - STEP 2: Does the patient need only setup/clean-up assistance from one helper? No. WHEEL 50 FEET WITH TWO TURNS - STEP 3: Does the patient need only verbal/nonverbal cueing or touching/steadying/contact guard assistance fro m one helper? No. WHEEL 50 FEET WITH TWO TURNS - STEP 4: Does the patient need physical assistance - for example lifting or trunk support from one helper - wi th the helper providing less than half of the effort? Yes. 1. [id number] ADMISSION PERFORMANCE: Partial/moderate assistance CODE: 03 INDICATE THE TYPE OF WHEELCHAIR/SCOOTER USED: RR1. INDICATE THE TYPE OF WHEELCHAIR/SCOOTER USED.: Manual CODE: 1 WHEEL 150 FEET: WHEEL 150 FEET - STEP 1: Does the patient complete the activity by him/herself with no assistance (physical, verbal/nonverbal cueing, setup/clean-up)? No. WHEEL 150 FEET - STEP 2: Does the patient need only setup/clean-up assistance from one helper? No. WHEEL 150 FEET - STEP 3: Does the patient need only verbal/nonverbal cueing or touching/steadying/contact guard assistance fro m one helper? No. WHEEL 150 FEET - STEP 4: Does the patient need physical assistance - for example lifting or trunk support from one helper - wi th the helper providing less than half of the effort? Yes. 1. [id number] ADMISSION PERFORMANCE: Partial/moderate assistance CODE: 03 INDICATE THE TYPE OF WHEELCHAIR/SCOOTER USED: SS1. INDICATE THE TYPE OF WHEELCHAIR/SCOOTER USED.: Manual CODE: 1 BLADDER AND BOWEL: H350. BLADDER CONTINENCE (3-DAY ASSESSMENT PERIOD): Incontinent daily (at least once a day) CODE: 3 H400. BOWEL CONTINENCE (3-DAY ASSESSMENT PERIOD): Occasionally incontinent (one episode of bowel incontinence) CODE: 1 SIGNATURE PANEL: The following modified sections: 1. [id number] Admission Performance, 1. [id number] Admission Performance, 1. RF1624H Admission Performance, 1. CM1046X Admission Performance, 1. VI8495p Admission Performance, 1. FJ8514v Admission Performance, 1. SX0870c Admission Performance, 1. [id number] Admission Performance , 1. GK8594A Admission Performance, 1. [id number] Admission Performance, 1. HS5114M Admission Performanc e, 1. CO1630R Admission Performance, 1. [id number] Admission Performance, 1. [id number] Admission Performan ce, Q1. Does the patient use a wheelchair/scooter?, 1. [id number] Admission Performance, 1. [id number] Admi ssion Performance, RR1. Indicate the type of wheelchair/scooter used., 1. [id number] Admission Performan ce, Code, SS1. Indicate the type of wheelchair/scooter used., H400. Bowel Continence (3-day assessmen t period), H350. Bladder Continence (3-day assessment period) were [electronically] signed by Chelsea Yeh C.N.A. on WedJan 15 2020 16:25:46 GMT-0500 (Central Daylight Time)
--- NOTE | 2020-01-15 16:57 | R.PN ---
ENCOUNTER DATE AND TIME: 01/15/2020 16:46 (CDT) NAME JIMY NARVAEZ DATE OF : 1940 DATE OF ADMISSION: 01/11/2020 14:12 (CDT) status post fall with left hip pain and no fractureCHIEF COMPLAINT: Debility, left hip pain after falling SUBJECTIVE: Pt denied any depression. Pt denied any Shortness of Breath. Ambulated 10', 30' and 30' with contact guard assistance using a rolling walker. CBC with diff from 4-30-20 was normal. Glucose [id number] to 193. VITAL SIGNS Temperature: 98.3 F SBP/DBP: 151/67 Pulse: 60 Resp: 16 MEDICATION ALLERGIES: Aspirin cephazolin CODEINE FENTANYL HYDROCODONE oxycodone propoxyphene tramadol ENVIRONMENTAL ALLERGIES: None Known - Substance Allergies None Known - Other Allergies None Known NURSING: - Shower allowing shower ACTIVITIES OOB only with supervision THERAPIES: - Dietary and Nutrition Adequate Nutrition. Nutritional Education. Nutritional Supplements. PHYSICAL EXAM - Gen Alert and awake Lying in bed No apparent distress Oriented to: person, time, and place - Skin She has a 2 inch area of swelling and redness in the right medial leg. Normacephalic - Eyes No abnormalities - ENMT No abnormalities - Neck No abnormalities No cervical adenopathy - CVS RRR - Chest Clear - Abd Soft - GI Soft Deferred - No abnormalities - Ext Moderate edema in both lower extremities. - MSK 4+/5 weakness in both lower extremities. - Neuro No focal deficits - Psych No abnormalities ASSESSMENT: Pt. is a 79 yo Right-handed white female.On 01/08/2020 she was [facility] with diagno sis status post fall with left hip pain and no fracture.Her impairment category is Debility 16 - Abbie ility (16).Pre-morbidly, Pt. was independent/mod-I in Transfers Control, Locomotion, and Self-Care; a nd she had good Balance, Social Cognition, Sphincter Control, and Communication.Currently, she has de ficits of Transfers Control, Balance, Locomotion, Safety Awareness, and Self-Care.Pt. is now referred to [facility] for acute in-patient rehabilitation in order to maximize patien t's functional independence in activities of daily living, strength, ROM, and mobility.- Rehab Goal Patient has realistic goal of being discharged at assistance level 6-Emilee to reside at Home with Fam aissatou/Relatives. MDM/PLAN: - Physical Therapy Gait dysfunction - to improve, our physical therapists will perform initial evaluation of pt's statu s upon admission and devise an individualized program for Gait Training, and Wheel Chair mobility Inability to transfer - to improve, our physical therapists will perform initial evaluation of pt's status upon admission and devise an individualized program for Bed mobility Need for home safety evaluation - to improve, our physical therapists will perform initial evaluatio n of pt's status upon admission and devise an individualized program for Home Evaluation Need in caregiver upon discharge - to improve, our physical therapists will perform initial evaluati on of pt's status upon admission and devise an individualized program for Caregiver Training Edema - to improve, our physical therapists will perform initial evaluation of pt's status upon admis tino and devise an individualized program for Elevation Training, and Lymphedema Therapy New precaution - to improve, our physical therapists will perform initial evaluation of pt's status upon admission and devise an individualized program for Patient precaution education Poor balance - to improve, our physical therapists will perform initial evaluation of pt's status up on admission and devise an individualized program for Balance Training Weakness - to improve, our physical therapists will perform initial evaluation of pt's status upon a dmission and devise an individualized program for Aquatic Therapy, Neuromuscular Reeducation, and Str engthening Achieving independence - to improve, our physical therapists will perform initial evaluation of pt's status upon admission and devise an individualized program for Community Reintegration Activities - Occupational Therapy ADL deficits - to improve, our occupation therapists will perform initial evaluation of pt's status upon admission and devise an individualized program for Bathing, Bed mobility, Community Reintegratio n, Cooking, Dressing, Eating, Fine Motor Skills, Grooming, Homemaking, Kitchen Mobility, Laundry, Pat ient Education, Safety Awareness, Splinting - Positioning, Transfers(Toilet, Tub, Shower), and Wheel Chair Management Need for healthcare marketer - to improve, our occupation therapists will perform initial evaluation of pt's status upon admission and devise an individualized program for Caregiver Training Weakness - to improve, our occupation therapists will perform initial evaluation of pt's status upon admission and devise an individualized program for Aquatic Therapy, Balance, Endurance, UE ROM, and UE strengthening - Other See attached MAR (Medication Administration Record) - Diet Type Continue Regular - Diet - Liquid Texture Continue Regular - Tube Feed Continue N/A - Diet - Solid Texture Continue Regular - Shower allowing shower FUNCTIONAL STATUS: UPDATED AT WEEKLY TEAM CONFERENCE - Walking Same score based on distance walked: 1(<=50ft) FUNCTIONAL STATUS: - Self-Care A. Eating Ind B. Grooming Emilee C. Bathing sup D. Dressing - Upper sup E. Dressing - Lower Leana F. Toileting sup - Sphincter Control G. Bladder control Emilee H. Bowel control Emilee - Transfers Control I. Bed/Chair/Wheelchair Leana J. Toilet Leana K. Tub/Shower Leana - Locomotion L. Walk/Wheelchair (B) sup M. Stairs ADNO - Communication N. Comprehension (B) sup O. Expression (B) sup - Social Cognition P. Social Interaction Emilee Q. Problem Solving sup R. Memory sup - Endurance Fair - Balance Fair - Safety Awareness Fair QI SCORES: - Self-Care A. Eating 05-Setup or clean-up assistance B. Oral hygiene 05-Setup or clean-up assistance C. Toileting hygiene 03-Partial/moderate assistance E. Shower/bathe self 10-Not attempted due to environmental limitations F. Upper body dressing 03-Partial/moderate assistance G. Lower body dressing 88-Not attempted due to medical condition or safety concerns H. Putting on/taking off footwear 88-Not attempted due to medical condition or safety concerns - Mobility A. Roll left and right 03-Partial/moderate assistance B. Sit to lying 03-Partial/moderate assistance C. Lying to sitting on side of bed 03-Partial/moderate assistance D. Sit to stand 03-Partial/moderate assistance E. Chair/xyo-to-kuujd transfer 03-Partial/moderate assistance F. Toilet transfer 03-Partial/moderate assistance G. Car transfer 88-Not attempted due to medical condition or safety concerns I. Walk 10 feet 88-Not attempted due to medical condition or safety concerns J. Walk 50 feet with two turns 88-Not attempted due to medical condition or safety concerns K. Walk 150 feet 88-Not attempted due to medical condition or safety concerns L. Walking 10 feet on uneven surfaces 88-Not attempted due to medical condition or safety concerns M. 1 step (curb) 88-Not attempted due to medical condition or safety concerns N. 4 steps 88-Not attempted due to medical condition or safety concerns O. 12 steps 88-Not attempted due to medical condition or safety concerns P. Picking up object 88-Not attempted due to medical condition or safety concerns - Bladder and Bowel Bladder continence 0-Always continent Bowel continence 0-Always continent - Endurance Poor - Balance Poor - Safety Awareness Poor CURRENT FUNC. DEFICITS: Self-Care, Mobility, Endurance, Balance, and Safety Awareness SIGNATURE PANEL: (CDT)
[2020-01-15] MEDS: FORMULATION-R RECTAL 30GM PR PRN (20:30)
[2020-01-16] MEDS: ACETAMINOPHEN 500 MG TAB PO PRN (05:33)
[2020-01-16] MEDS: LEVOTHYROXINE SOD 0.075 MG TAB PO SCH (06:19)
[2020-01-16] MEDS: INSULIN -REGULAR HUMAN 50 UNIT/0.5 ML ML SQ SCH ×4 (07:30→20:30)
[2020-01-16] MEDS: METOPROLOL XL 25 MG TAB PO SCH ×2 (08:00→20:12)
[2020-01-16] MEDS: APIXABAN 5 MG TABLET PO SCH (09:14)
[2020-01-16] MEDS: VITAMIN B COMPLEX 1 CAP PO SCH (09:14)
[2020-01-16] MEDS: AMIODARONE HCL 200 MG TAB PO SCH (09:14)
[2020-01-16] MEDS: DONEPEZIL HCL 5 MG TAB PO SCH (09:14)
[2020-01-16] MEDS: FOLIC ACID 1 MG TABLET PO SCH (09:14)
[2020-01-16] MEDS: DOXYCYCLINE 100 MG CAP PO SCH ×2 (09:14→20:12)
--- NOTE | 2020-01-16 17:23 | R.PN ---
ENCOUNTER DATE AND TIME: 01/16/2020 17:17 (CDT) NAME JIMY NARVAEZ DATE OF : 1940 DATE OF ADMISSION: 01/11/2020 14:12 (CDT) status post fall with left hip pain and no fractureCHIEF COMPLAINT: Debility, left hip pain after falling SUBJECTIVE: Pt denied any depression. Pt denied any Shortness of Breath. Ambulated 15', 12' and 10' with contact guard assistance using a rolling walker. Self-propelled wheel chair 150' with bilateral upper extremities nd contact guard assistance. CBC with diff from 20 was normal. Glucose ranged 113 to 178. VITAL SIGNS Temperature: 98.2 F SBP/DBP: 119/50 Pulse: 56 Resp: 18 MEDICATION ALLERGIES: Aspirin cephazolin CODEINE FENTANYL HYDROCODONE oxycodone propoxyphene tramadol ENVIRONMENTAL ALLERGIES: None Known - Substance Allergies None Known - Other Allergies None Known NURSING: - Shower allowing shower ACTIVITIES OOB only with supervision THERAPIES: - Dietary and Nutrition Adequate Nutrition. Nutritional Education. Nutritional Supplements. PHYSICAL EXAM - Gen Alert and awake Lying in bed No apparent distress Oriented to: person, time, and place - Skin She has a 2 inch area of swelling and redness in the right medial leg. Normacephalic - Eyes No abnormalities - ENMT No abnormalities - Neck No abnormalities No cervical adenopathy - CVS RRR - Chest Clear - Abd Soft - GI Soft Deferred - No abnormalities - Ext Moderate edema in both lower extremities. - MSK 4+/5 weakness in both lower extremities. - Neuro No focal deficits - Psych No abnormalities ASSESSMENT: Pt. is a 79 yo Right-handed white female.On 01/08/2020 she was admitted to [facility] with diagno sis status post fall with left hip pain and no fracture.Her impairment category is Debility 16 - Abbie ility (16).Pre-morbidly, Pt. was independent/mod-I in Transfers Control, Locomotion, and Self-Care; a nd she had good Balance, Social Cognition, Sphincter Control, and Communication.Currently, she has de ficits of Transfers Control, Balance, Locomotion, Safety Awareness, and Self-Care.Pt. is now referred to [facility] for acute in-patient rehabilitation in order to maximize patien t's functional independence in activities of daily living, strength, ROM, and mobility.- Rehab Goal Patient has realistic goal of being discharged at assistance level 6-Emilee to reside at Home with Fam aissatou/Relatives. MDM/PLAN: - Physical Therapy Gait dysfunction - to improve, our physical therapists will perform initial evaluation of pt's statu s upon admission and devise an individualized program for Gait Training, and Wheel Chair mobility Inability to transfer - to improve, our physical therapists will perform initial evaluation of pt's status upon admission and devise an individualized program for Bed mobility Need for home safety evaluation - to improve, our physical therapists will perform initial evaluatio n of pt's status upon admission and devise an individualized program for Home Evaluation Need in caregiver upon discharge - to improve, our physical therapists will perform initial evaluati on of pt's status upon admission and devise an individualized program for Caregiver Training Edema - to improve, our physical therapists will perform initial evaluation of pt's status upon admi ssion and devise an individualized program for Elevation Training, and Lymphedema Therapy New precaution - to improve, our physical therapists will perform initial evaluation of pt's status upon admission and devise an individualized program for Patient precaution education Poor balance - to improve, our physical therapists will perform initial evaluation of pt's status up on admission and devise an individualized program for Balance Training Weakness - to improve, our physical therapists will perform initial evaluation of pt's status upon a dmission and devise an individualized program for Aquatic Therapy, Neuromuscular Reeducation, and Str engthening Achieving independence - to improve, our physical therapists will perform initial evaluation of pt's status upon admission and devise an individualized program for Community Reintegration Activities - Occupational Therapy ADL deficits - to improve, our occupation therapists will perform initial evaluation of pt's status upon admission and devise an individualized program for Bathing, Bed mobility, Community Reintegratio n, Cooking, Dressing, Eating, Fine Motor Skills, Grooming, Homemaking, Kitchen Mobility, Laundry, Pat ient Education, Safety Awareness, Splinting - Positioning, Transfers(Toilet, Tub, Shower), and Wheel Chair Management Need for health and social care teacher - to improve, our occupation therapists will perform initial evaluation of pt's status upon admission and devise an individualized program for Caregiver Training Weakness - to improve, our occupation therapists will perform initial evaluation of pt's status upon admission and devise an individualized program for Aquatic Therapy, Balance, Endurance, UE ROM, and UE strengthening - Other See attached MAR (Medication Administration Record) - Diet Type Continue Regular - Diet - Liquid Texture Continue Regular - Tube Feed Continue N/A - Diet - Solid Texture Continue Regular - Shower allowing shower FUNCTIONAL STATUS: UPDATED AT WEEKLY TEAM CONFERENCE - Walking Same score based on distance walked: 1(<=50ft) FUNCTIONAL STATUS: - Self-Care A. Eating Ind B. Grooming Emilee C. Bathing sup D. Dressing - Upper sup E. Dressing - Lower Leana F. Toileting sup - Sphincter Control G. Bladder control Emilee H. Bowel control Emilee - Transfers Control I. Bed/Chair/Wheelchair Leana J. Toilet Leana K. Tub/Shower Leana - Locomotion L. Walk/Wheelchair (B) sup M. Stairs ADNO - Communication N. Comprehension (B) sup O. Expression (B) sup - Social Cognition P. Social Interaction Emilee Q. Problem Solving sup R. Memory sup - Endurance Fair - Balance Fair - Safety Awareness Fair QI SCORES: - Self-Care A. Eating 05-Setup or clean-up assistance B. Oral hygiene 05-Setup or clean-up assistance C. Toileting hygiene 03-Partial/moderate assistance E. Shower/bathe self 10-Not attempted due to environmental limitations F. Upper body dressing 03-Partial/moderate assistance G. Lower body dressing 88-Not attempted due to medical condition or safety concerns H. Putting on/taking off footwear 88-Not attempted due to medical condition or safety concerns - Mobility A. Roll left and right 03-Partial/moderate assistance B. Sit to lying 03-Partial/moderate assistance C. Lying to sitting on side of bed 03-Partial/moderate assistance D. Sit to stand 03-Partial/moderate assistance E. Chair/ahs-sx-[id number] transfer 03-Partial/moderate assistance F. Toilet transfer 03-Partial/moderate assistance G. Car transfer 88-Not attempted due to medical condition or safety concerns I. Walk 10 feet 88-Not attempted due to medical condition or safety concerns J. Walk 50 feet with two turns 88-Not attempted due to medical condition or safety concerns K. Walk 150 feet 88-Not attempted due to medical condition or safety concerns L. Walking 10 feet on uneven surfaces 88-Not attempted due to medical condition or safety concerns M. 1 step (curb) 88-Not attempted due to medical condition or safety concerns N. 4 steps 88-Not attempted due to medical condition or safety concerns O. 12 steps 88-Not attempted due to medical condition or safety concerns P. Picking up object 88-Not attempted due to medical condition or safety concerns - Bladder and Bowel Bladder continence 0-Always continent Bowel continence 0-Always continent - Endurance Poor - Balance Poor - Safety Awareness Poor CURRENT FUNC. DEFICITS: Self-Care, Mobility, Endurance, Balance, and Safety Awareness SIGNATURE PANEL: (CDT)
[2020-01-16] MEDS: DOCUSATE NA/SENNA CONC 1 TAB PO PRN (20:12)
[2020-01-16] MEDS: FORMULATION-R RECTAL 30GM PR PRN (20:12)
[2020-01-17] MEDS: INSULIN -REGULAR HUMAN 50 UNIT/0.5 ML ML SQ SCH ×4 (07:30→19:52)
[2020-01-17] MEDS: LEVOTHYROXINE SOD 0.075 MG TAB PO SCH (07:39)
[2020-01-17] MEDS: FORMULATION-R RECTAL 30GM PR PRN (08:41)
[2020-01-17] MEDS: AMIODARONE HCL 200 MG TAB PO SCH (08:42)
[2020-01-17] MEDS: DOXYCYCLINE 100 MG CAP PO SCH ×2 (08:42→19:51)
[2020-01-17] MEDS: VITAMIN B COMPLEX 1 CAP PO SCH (08:42)
[2020-01-17] MEDS: METOPROLOL XL 25 MG TAB PO SCH ×2 (08:42→19:51)
[2020-01-17] MEDS: APIXABAN 5 MG TABLET PO SCH (08:42)
[2020-01-17] MEDS: DONEPEZIL HCL 5 MG TAB PO SCH (08:43)
[2020-01-17] MEDS: FOLIC ACID 1 MG TABLET PO SCH (08:43)
--- NOTE | 2020-01-17 12:36 | FAST ---
ENCOUNTER DATE AND TIME: 01/17/2020 08:00 (CDT) NAME JIMY NARVAEZ DATE OF : 1940 DATE OF ADMISSION: 01/11/2020 14:12 (CDT) PHONE: AGE: 79 N# [id number] GENDER: Female ENCOUNTER PHYSICIAN: Dr. Willard Sotelo M.D. ADMISSION DIAGNOSIS: - Debility 16 - Debility (16) status post fall with left hip pain and no fracture. EATING: Not assessed/no information CODE: - ORAL HYGIENE: ORAL HYGIENE - STEP 1: Does the patient complete the activity by him/herself with no assistance (physical, verbal/nonverbal cueing, setup/clean-up)? Yes. 1. [id number] ADMISSION PERFORMANCE: Independent CODE: 06 TOILETING HYGIENE: Not assessed/no information CODE: - BATHING: SHOWER/BATHE SELF - STEP 1: Does the patient complete the activity by him/herself with no assistance (physical, verbal/nonverbal cueing, setup/clean-up)? No. SHOWER/BATHE SELF - STEP 2: Does the patient need only setup/clean-up assistance from one helper? No. SHOWER/BATHE SELF - STEP 3: Does the patient need only verbal/nonverbal cueing or touching/steadying/contact guard assistance fro m one helper? No. SHOWER/BATHE SELF - STEP 4: Does the patient need physical assistance - for example lifting or trunk support from one helper - wi th the helper providing less than half of the effort? Yes. 1. [id number] ADMISSION PERFORMANCE: Partial/moderate assistance CODE: 03 DRESSING - UPPER BODY: DRESSING - UPPER BODY - STEP 1: Does the patient complete the activity by him/herself with no assistance (physical, verbal/nonverbal cueing, setup/clean-up)? No. DRESSING - UPPER BODY - STEP 2: Does the patient need only setup/clean-up assistance from one helper? Yes. 1. [id number] ADMISSION PERFORMANCE: Setup or clean-up assistance CODE: 05 DRESSING - LOWER BODY: DRESSING - LOWER BODY - STEP 1: Does the patient complete the activity by him/herself with no assistance (physical, verbal/nonverbal cueing, setup/clean-up)? No. DRESSING - LOWER BODY - STEP 2: Does the patient need only setup/clean-up assistance from one helper? No. DRESSING - LOWER BODY - STEP 3: Does the patient need only verbal/nonverbal cueing or touching/steadying/contact guard assistance fro m one helper? Yes. 1. [id number] ADMISSION PERFORMANCE: Supervision or touching assistance CODE: 04 PUTTING ON/TAKING OFF FOOTWEAR: FOOTWEAR - STEP 1: Does the patient complete the activity by him/herself with no assistance (physical, verbal/nonverbal cueing, setup/clean-up)? No. FOOTWEAR - STEP 2: Does the patient need only setup/clean-up assistance from one helper? No. FOOTWEAR - STEP 3: Does the patient need only verbal/nonverbal cueing or touching/steadying/contact guard assistance fro m one helper? Yes. 1. [id number] ADMISSION PERFORMANCE: Supervision or touching assistance CODE: 04 DOES THE PATIENT USE A WHEELCHAIR/SCOOTER? CODE: EXPR INDICATE THE TYPE OF WHEELCHAIR/SCOOTER USED: CODE: EXPR INDICATE THE TYPE OF WHEELCHAIR/SCOOTER USED: CODE: EXPR BLADDER AND BOWEL: CODE: EXPR CODE: EXPR SIGNATURE PANEL: The following modified sections: 1. [id number] Admission Performance, 1. [id number] Admission Performance, 1. [id number] Admission Performance, 1. [id number] Admission Performance, 1. [id number] Admission Performance were [electronically] signed by GAYATHRI Henning on WedJan 17 2020 12:35:55 GMT-0500 (Central Daylight Time)
[2020-01-18] MEDS: ACETAMINOPHEN 500 MG TAB PO PRN (00:05)
[2020-01-18] MEDS: LEVOTHYROXINE SOD 0.075 MG TAB PO SCH (06:25)
[2020-01-18 06:37] LABS: Absolute Lymphocytes (CBC) 1.4 K/uL (0.7-4.9); Hematocrit 42.2 % (36.0-45.0); Lymphocytes % 23.2 % (15.3-44.8); MPV 8.3 fL (7.6-11.3); RBC Red Blood Cell Count 4.74 M/uL (3.86-4.86)
[2020-01-18 06:40] LABS: Albumin 3.1 g/dL (3.4-5.0); Potassium 4.2 mmol/L (3.5-5.1); Prealbumin 16.2 mg/dL (20-40)
[2020-01-18] MEDS: INSULIN -REGULAR HUMAN 50 UNIT/0.5 ML ML SQ SCH ×4 (07:30→21:00)
[2020-01-18] MEDS: VITAMIN B COMPLEX 1 CAP PO SCH ×2 (08:00→20:05)
[2020-01-18] MEDS: FOLIC ACID 1 MG TABLET PO SCH ×2 (08:00→20:05)
[2020-01-18] MEDS: APIXABAN 5 MG TABLET PO SCH (08:43)
[2020-01-18] MEDS: DOXYCYCLINE 100 MG CAP PO SCH (08:43)
[2020-01-18] MEDS: AMIODARONE HCL 200 MG TAB PO SCH (08:44)
[2020-01-18] MEDS: DONEPEZIL HCL 5 MG TAB PO SCH (08:44)
[2020-01-18] MEDS: METOPROLOL XL 25 MG TAB PO SCH ×2 (08:46→20:06)
--- NOTE | 2020-01-18 10:14 | FAST ---
SHIFT START DATE/TIME: 01/18/2020 07:00 (CDT) SHIFT END DATE/TIME: 01/18/2020 19:00 (CDT) NAME JIMY NARVAEZ DATE OF : 1940 DATE OF ADMISSION: 01/11/2020 14:12 (CDT) PHONE: AGE: 79 N# [id number] GENDER: Female ENCOUNTER PHYSICIAN: Dr. Willard Sotelo M.D. ADMISSION DIAGNOSIS: - Debility 16 - Debility (16) status post fall with left hip pain and no fracture. EATING: EATING - STEP 1: Does the patient complete the activity by him/herself with no assistance (physical, verbal/nonverbal cueing, setup/clean-up)? No. EATING - STEP 2: Does the patient need only setup/clean-up assistance from one helper? No. EATING - STEP 3: Does the patient need only verbal/nonverbal cueing or touching/steadying/contact guard assistance fro m one helper? Yes. 1. [id number] ADMISSION PERFORMANCE: Supervision or touching assistance CODE: 04 ORAL HYGIENE: ORAL HYGIENE - STEP 1: Does the patient complete the activity by him/herself with no assistance (physical, verbal/nonverbal cueing, setup/clean-up)? No. ORAL HYGIENE - STEP 2: Does the patient need only setup/clean-up assistance from one helper? No. ORAL HYGIENE - STEP 3: Does the patient need only verbal/nonverbal cueing or touching/steadying/contact guard assistance fro m one helper? Yes. 1. [id number] ADMISSION PERFORMANCE: Supervision or touching assistance CODE: 04 TOILETING HYGIENE: TOILETING HYGIENE - STEP 1: Does the patient complete the activity by him/herself with no assistance (physical, verbal/nonverbal cueing, setup/clean-up)? No. TOILETING HYGIENE - STEP 2: Does the patient need only setup/clean-up assistance from one helper? No. TOILETING HYGIENE - STEP 3: Does the patient need only verbal/nonverbal cueing or touching/steadying/contact guard assistance fro m one helper? Yes. 1. [id number] ADMISSION PERFORMANCE: Supervision or touching assistance CODE: 04 BATHING: Not assessed/no information CODE: - DRESSING - UPPER BODY: Not assessed/no information CODE: - DRESSING - LOWER BODY: Not assessed/no information CODE: - PUTTING ON/TAKING OFF FOOTWEAR: Not assessed/no information CODE: - ROLL LEFT AND RIGHT: ROLL LEFT AND RIGHT - STEP 1: Does the patient complete the activity by him/herself with no assistance (physical, verbal/nonverbal cueing, setup/clean-up)? No. ROLL LEFT AND RIGHT - STEP 2: Does the patient need only setup/clean-up assistance from one helper? No. ROLL LEFT AND RIGHT - STEP 3: Does the patient need only verbal/nonverbal cueing or touching/steadying/contact guard assistance fro m one helper? Yes. 1. [id number] ADMISSION PERFORMANCE: Supervision or touching assistance CODE: 04 SIT TO LYING: Not assessed/no information CODE: - LYING TO SITTING: Not assessed/no information CODE: - SIT TO STAND: SIT TO STAND - STEP 1: Does the patient complete the activity by him/herself with no assistance (physical, verbal/nonverbal cueing, setup/clean-up)? No. SIT TO STAND - STEP 2: Does the patient need only setup/clean-up assistance from one helper? No. SIT TO STAND - STEP 3: Does the patient need only verbal/nonverbal cueing or touching/steadying/contact guard assistance fro m one helper? No. SIT TO STAND - STEP 4: Does the patient need physical assistance - for example lifting or trunk support from one helper - wi th the helper providing less than half of the effort? Yes. 1. [id number] ADMISSION PERFORMANCE: Partial/moderate assistance CODE: 03 TRANSFERS: BED, CHAIR: CHAIR/[id number] TRANSFER - STEP 1: Does the patient complete the activity by him/herself with no assistance (physical, verbal/nonverbal cueing, setup/clean-up)? No. CHAIR/[id number] TRANSFER - STEP 2: Does the patient need only setup/clean-up assistance from one helper? No. CHAIR/[id number] TRANSFER - STEP 3: Does the patient need only verbal/nonverbal cueing or touching/steadying/contact guard assistance fro m one helper? Yes. 1. [id number] ADMISSION PERFORMANCE: Supervision or touching assistance CODE: 04 TRANSFER TOILET: TOILET TRANSFER - STEP 1: Does the patient complete the activity by him/herself with no assistance (physical, verbal/nonverbal cueing, setup/clean-up)? No. TOILET TRANSFER - STEP 2: Does the patient need only setup/clean-up assistance from one helper? No. TOILET TRANSFER - STEP 3: Does the patient need only verbal/nonverbal cueing or touching/steadying/contact guard assistance fro m one helper? Yes. 1. [id number] ADMISSION PERFORMANCE: Supervision or touching assistance CODE: 04 TRANSFERS: CAR: Not assessed/no information CODE: - WALK 10 FEET: Not assessed/no information CODE: - 1 STEP (CURB): Not assessed/no information CODE: - PICKING UP OBJECT: Not assessed/no information CODE: - DOES THE PATIENT USE A WHEELCHAIR/SCOOTER? CODE: EXPR WHEEL 50 FEET WITH TWO TURNS: Not assessed/no information CODE: - INDICATE THE TYPE OF WHEELCHAIR/SCOOTER USED: CODE: EXPR WHEEL 150 FEET: Not assessed/no information CODE: - INDICATE THE TYPE OF WHEELCHAIR/SCOOTER USED: CODE: EXPR BLADDER AND BOWEL: H350. BLADDER CONTINENCE (3-DAY ASSESSMENT PERIOD): Always continent (no documented incontinence) CODE: 0 H400. BOWEL CONTINENCE (3-DAY ASSESSMENT PERIOD): Always continent CODE: 0 SIGNATURE PANEL: The following modified sections: 1. [id number] Admission Performance, 1. [id number] Admission Performance, 1. [id number] Admission Performance, 1. [id number] Admission Performance, 1. [id number] Admission Performance, 1. [id number] Admission Performance, 1. [id number] Admission Performance, Code, H350. Bladder Continence ( 3-day assessment period), H400. Bowel Continence (3-day assessment period) were [electronically] sign ed by Delvis Cruz on WedJan 18 2020 10:13:14 GMT-0500 (Central Daylight Time)
--- NOTE | 2020-01-18 17:12 | R.PN ---
ENCOUNTER DATE AND TIME: 01/18/2020 17:08 (CDT) NAME JIMY NARVAEZ DATE OF : 1940 DATE OF ADMISSION: 01/11/2020 14:12 (CDT) status post fall with left hip pain and no fractureCHIEF COMPLAINT: Debility, left hip pain after falling SUBJECTIVE: Pt denied any depression. Pt denied any Shortness of Breath. Ambulated 15' x 4 with contact guard assistance using a rolling walker. Self-propelled wheelchair 150 ' with bilateral upper extremities nd contact guard assistance. CBC with diff from 5-7-20 was normal. Glucose ranged 73 to 176. Prealbumin 16.2. VITAL SIGNS Temperature: 97.5 F SBP/DBP: 145/72 Pulse: 56 Resp: 14 MEDICATION ALLERGIES: Aspirin cephazolin CODEINE FENTANYL HYDROCODONE oxycodone propoxyphene tramadol ENVIRONMENTAL ALLERGIES: None Known - Substance Allergies None Known - Other Allergies None Known NURSING: - Shower allowing shower ACTIVITIES OOB only with supervision THERAPIES: - Dietary and Nutrition Adequate Nutrition. Nutritional Education. Nutritional Supplements. PHYSICAL EXAM - Gen Alert and awake Lying in bed No apparent distress Oriented to: person, time, and place - Skin She has a 2 inch area of swelling and redness in the right medial leg. Normacephalic - Eyes No abnormalities - ENMT No abnormalities - Neck No abnormalities No cervical adenopathy - CVS RRR - Chest Clear - Abd Soft - GI Soft Deferred - No abnormalities - Ext Moderate edema in both lower extremities. - MSK 4+/5 weakness in both lower extremities. - Neuro No focal deficits - Psych No abnormalities ASSESSMENT: Pt. is a 79 yo Right-handed white female.On 01/08/2020 she was admitted to [facility] with diagno sis status post fall with left hip pain and no fracture.Her impairment category is Debility 16 - Abbie ility (16).Pre-morbidly, Pt. was independent/mod-I in Transfers Control, Locomotion, and Self-Care; a nd she had good Balance, Social Cognition, Sphincter Control, and Communication.Currently, she has de ficits of Transfers Control, Balance, Locomotion, Safety Awareness, and Self-Care.Pt. is now referred to [facility] for acute in-patient rehabilitation in order to maximize patien t's functional independence in activities of daily living, strength, ROM, and mobility.- Rehab Goal Patient has realistic goal of being discharged at assistance level 6-Emilee to reside at Home with Fam aissatou/Relatives. MDM/PLAN: - Physical Therapy Gait dysfunction - to improve, our physical therapists will perform initial evaluation of pt's statu s upon admission and devise an individualized program for Gait Training, and Wheel Chair mobility Inability to transfer - to improve, our physical therapists will perform initial evaluation of pt's status upon admission and devise an individualized program for Bed mobility Need for home safety evaluation - to improve, our physical therapists will perform initial evaluatio n of pt's status upon admission and devise an individualized program for Home Evaluation Need in caregiver upon discharge - to improve, our physical therapists will perform initial evaluati on of pt's status upon admission and devise an individualized program for Caregiver Training Edema - to improve, our physical therapists will perform initial evaluation of pt's status upon admi ssion and devise an individualized program for Elevation Training, and Lymphedema Therapy New precaution - to improve, our physical therapists will perform initial evaluation of pt's status upon admission and devise an individualized program for Patient precaution education Poor balance - to improve, our physical therapists will perform initial evaluation of pt's status up on admission and devise an individualized program for Balance Training Weakness - to improve, our physical therapists will perform initial evaluation of pt's status upon a dmission and devise an individualized program for Aquatic Therapy, Neuromuscular Reeducation, and Str engthening Achieving independence - to improve, our physical therapists will perform initial evaluation of pt's status upon admission and devise an individualized program for Community Reintegration Activities - Occupational Therapy ADL deficits - to improve, our occupation therapists will perform initial evaluation of pt's status upon admission and devise an individualized program for Bathing, Bed mobility, Community Reintegratio n, Cooking, Dressing, Eating, Fine Motor Skills, Grooming, Homemaking, Kitchen Mobility, Laundry, Pat ient Education, Safety Awareness, Splinting - Positioning, Transfers(Toilet, Tub, Shower), and Wheel Chair Management Need for college and career counselor - to improve, our occupation therapists will perform initial evaluation of pt's status upon admission and devise an individualized program for Caregiver Training Weakness - to improve, our occupation therapists will perform initial evaluation of pt's status upon admission and devise an individualized program for Aquatic Therapy, Balance, Endurance, UE ROM, and UE strengthening - Other See attached MAR (Medication Administration Record) - Diet Type Continue Regular - Diet - Liquid Texture Continue Regular - Tube Feed Continue N/A - Diet - Solid Texture Continue Regular - Shower allowing shower FUNCTIONAL STATUS: UPDATED AT WEEKLY TEAM CONFERENCE - Walking Same score based on distance walked: 1(<=50ft) FUNCTIONAL STATUS: - Self-Care A. Eating Ind B. Grooming Emilee C. Bathing sup D. Dressing - Upper sup E. Dressing - Lower Leana F. Toileting sup - Sphincter Control G. Bladder control Emilee H. Bowel control Emilee - Transfers Control I. Bed/Chair/Wheelchair Leana J. Toilet Leana K. Tub/Shower Leana - Locomotion L. Walk/Wheelchair (B) sup M. Stairs ADNO - Communication N. Comprehension (B) sup O. Expression (B) sup - Social Cognition P. Social Interaction Emilee Q. Problem Solving sup R. Memory sup - Endurance Fair - Balance Fair - Safety Awareness Fair QI SCORES: - Self-Care A. Eating 05-Setup or clean-up assistance B. Oral hygiene 05-Setup or clean-up assistance C. Toileting hygiene 03-Partial/moderate assistance E. Shower/bathe self 10-Not attempted due to environmental limitations F. Upper body dressing 03-Partial/moderate assistance G. Lower body dressing 88-Not attempted due to medical condition or safety concerns H. Putting on/taking off footwear 88-Not attempted due to medical condition or safety concerns - Mobility A. Roll left and right 03-Partial/moderate assistance B. Sit to lying 03-Partial/moderate assistance C. Lying to sitting on side of bed 03-Partial/moderate assistance D. Sit to stand 03-Partial/moderate assistance E. Chair/[id number] transfer 03-Partial/moderate assistance F. Toilet transfer 03-Partial/moderate assistance G. Car transfer 88-Not attempted due to medical condition or safety concerns I. Walk 10 feet 88-Not attempted due to medical condition or safety concerns J. Walk 50 feet with two turns 88-Not attempted due to medical condition or safety concerns K. Walk 150 feet 88-Not attempted due to medical condition or safety concerns L. Walking 10 feet on uneven surfaces 88-Not attempted due to medical condition or safety concerns M. 1 step (curb) 88-Not attempted due to medical condition or safety concerns N. 4 steps 88-Not attempted due to medical condition or safety concerns O. 12 steps 88-Not attempted due to medical condition or safety concerns P. Picking up object 88-Not attempted due to medical condition or safety concerns - Bladder and Bowel Bladder continence 0-Always continent Bowel continence 0-Always continent - Endurance Poor - Balance Poor - Safety Awareness Poor CURRENT FUNC. DEFICITS: Self-Care, Mobility, Endurance, Balance, and Safety Awareness SIGNATURE PANEL: (CDT)
[2020-01-19] MEDS: ACETAMINOPHEN 500 MG TAB PO PRN (05:32)
[2020-01-19] MEDS: LEVOTHYROXINE SOD 0.075 MG TAB PO SCH (06:40)
[2020-01-19] MEDS: INSULIN -REGULAR HUMAN 50 UNIT/0.5 ML ML SQ SCH ×4 (07:30→20:12)
[2020-01-19] MEDS: APIXABAN 5 MG TABLET PO SCH (08:59)
[2020-01-19] MEDS: METOPROLOL XL 25 MG TAB PO SCH ×2 (09:00→21:04)
[2020-01-19] MEDS: AMIODARONE HCL 200 MG TAB PO SCH (09:00)
[2020-01-19] MEDS: DONEPEZIL HCL 5 MG TAB PO SCH (09:00)
[2020-01-19] MEDS: VITAMIN D 5,000 UNIT CAP PO SCH (09:03)
--- NOTE | 2020-01-19 09:43 | P.RH.PN ---
Estimated Length of Stay: 15 Expected Discharge Date: 01/24/20 Discharge Disposition Plan: Home Family Support: Yes Penitentiary Goal: Mobility, Transfers, Self Care Vital Signs: Last Vital Signs Temp 97.6 F 01/19/20 07:03 Pulse 63 01/19/20 09:00 Resp 18 01/19/20 07:03 BP 120/51 L 01/19/20 09:00 Pulse Ox 95 01/19/20 07:03 Laboratory: Laboratory Last Values WBC 6.0 K/uL (4.3-10.9) 01/18/20 06:05 RBC 4.74 M/uL (3.86-4.86) 01/18/20 06:05 Hgb 14.0 g/dL (12.0-15.0) 01/18/20 06:05 Hct 42.2 % (36.0-45.0) 01/18/20 06:05 MCV 89.0 fL (80-100) 01/18/20 06:05 MCH 29.6 pg (27.0-35.0) 01/18/20 06:05 MCHC 33.3 g/dL (32.0-36.0) 01/18/20 06:05 RDW 14.1 % (12.1-15.2) 01/18/20 06:05 Plt Count 175 K/uL (152-406) 01/18/20 06:05 MPV 8.3 fL (7.6-11.3) 01/18/20 06:05 Neutrophils % 59.3 % (41.7-73.7) 01/18/20 06:05 Lymphocytes % 23.2 % (15.3-44.8) 01/18/20 06:05 Monocytes % 13.6 % (3.3-12.3) H 01/18/20 06:05 Eosinophils % 2.9 % (0-4.4) 01/18/20 06:05 Basophils % 1.0 % (0-1.3) 01/18/20 06:05 Absolute Neutrophils 3.5 K/uL (1.8-8.0) 01/18/20 06:05 Absolute Lymphocytes 1.4 K/uL (0.7-4.9) 01/18/20 06:05 Absolute Monocytes 0.8 K/uL (0.1-1.3) 01/18/20 06:05 Absolute Eosinophils 0.2 K/uL (0-0.5) 01/18/20 06:05 Absolute Basophils 0.1 K/uL (0-0.5) 01/18/20 06:05 Sodium 142 mmol/L (136-145) 01/18/20 06:05 Potassium 4.2 mmol/L (3.5-5.1) 01/18/20 06:05 Chloride 109 mmol/L (98-107) H 01/18/20 06:05 Carbon Dioxide 29 mmol/L (21-32) 01/18/20 06:05 BUN 17 mg/dL (7-18) 01/18/20 06:05 Creatinine 0.89 mg/dL (0.55-1.3) 01/18/20 06:05 Estimated GFR 61 mL/min (=/>90) L 01/18/20 06:05 Glucose 114 mg/dL (74-106) H 01/18/20 06:05 POC Glucose 139 mg/dl (65-120) H 01/19/20 07:25 Hemoglobin A1c 7.6 % (4.2-6.3) H 01/13/20 05:53 Calcium 8.8 mg/dL (8.5-10.1) 01/18/20 06:05 Magnesium 2.0 mg/dL (1.8-2.4) 01/18/20 06:05 Albumin 3.1 g/dL (3.4-5.0) L 01/18/20 06:05 Prealbumin 16.2 mg/dL (20-40) L 01/18/20 06:05 Weight: 366 lb 6 oz Wound Present: Yes Closed Surgical Incision Present: No Negative Pressure Wound Therapy Present: No Physician Update: Labs reviewed and are stable. She is doing well. She had help with ADLs at home prior to hospitalization and is now close to her baseline. She has muscle spasms in the right posterior shoulder. She is walking 22' with a walker and standby assistance. Functional Improvement: pt presents with severe generalized strength deficits. pt demonstrates poor trunk strength as well. pt exhibits poor balance in standing. pt limited by pain in her bilateral LEs with L LE experiencing greater pain. pt exhibits difficulties with sit -> stand transfers from low surfaces due to pain and weakness. pt experiences poor tolerance to functional activity due to pain, weakness, and fatigue. Skilled PT services are necessary to address the above mentioned impairments and functional limitations. Summary: Patient's care plan and [facility] goals have been reviewed and revised as necessary. Please see the Rehabilitation Signature page for all necessary signatures.
--- NOTE | 2020-01-19 11:28 | FAST ---
SHIFT START DATE/TIME: 01/19/2020 07:00 (CDT) SHIFT END DATE/TIME: 01/19/2020 19:00 (CDT) NAME JIMY NARVAEZ DATE OF : 1940 DATE OF ADMISSION: 01/11/2020 14:12 (CDT) PHONE: AGE: 79 N# [id number] GENDER: Female ENCOUNTER PHYSICIAN: Dr. Willard Sotelo M.D. ADMISSION DIAGNOSIS: - Debility 16 - Debility (16) status post fall with left hip pain and no fracture. EATING: EATING - STEP 1: Does the patient complete the activity by him/herself with no assistance (physical, verbal/nonverbal cueing, setup/clean-up)? No. EATING - STEP 2: Does the patient need only setup/clean-up assistance from one helper? Yes. 1. [id number] ADMISSION PERFORMANCE: Setup or clean-up assistance CODE: 05 ORAL HYGIENE: ORAL HYGIENE - STEP 1: Does the patient complete the activity by him/herself with no assistance (physical, verbal/nonverbal cueing, setup/clean-up)? No. ORAL HYGIENE - STEP 2: Does the patient need only setup/clean-up assistance from one helper? Yes. 1. [id number] ADMISSION PERFORMANCE: Setup or clean-up assistance CODE: 05 TOILETING HYGIENE: TOILETING HYGIENE - STEP 1: Does the patient complete the activity by him/herself with no assistance (physical, verbal/nonverbal cueing, setup/clean-up)? No. TOILETING HYGIENE - STEP 2: Does the patient need only setup/clean-up assistance from one helper? No. TOILETING HYGIENE - STEP 3: Does the patient need only verbal/nonverbal cueing or touching/steadying/contact guard assistance fro m one helper? Yes. 1. [id number] ADMISSION PERFORMANCE: Supervision or touching assistance CODE: 04 BATHING: Not assessed/no information CODE: - DRESSING - UPPER BODY: DRESSING - UPPER BODY - STEP 1: Does the patient complete the activity by him/herself with no assistance (physical, verbal/nonverbal cueing, setup/clean-up)? No. DRESSING - UPPER BODY - STEP 2: Does the patient need only setup/clean-up assistance from one helper? Yes. 1. [id number] ADMISSION PERFORMANCE: Setup or clean-up assistance CODE: 05 DRESSING - LOWER BODY: DRESSING - LOWER BODY - STEP 1: Does the patient complete the activity by him/herself with no assistance (physical, verbal/nonverbal cueing, setup/clean-up)? No. DRESSING - LOWER BODY - STEP 2: Does the patient need only setup/clean-up assistance from one helper? No. DRESSING - LOWER BODY - STEP 3: Does the patient need only verbal/nonverbal cueing or touching/steadying/contact guard assistance fro m one helper? Yes. 1. [id number] ADMISSION PERFORMANCE: Supervision or touching assistance CODE: 04 PUTTING ON/TAKING OFF FOOTWEAR: FOOTWEAR - STEP 1: Does the patient complete the activity by him/herself with no assistance (physical, verbal/nonverbal cueing, setup/clean-up)? No. FOOTWEAR - STEP 2: Does the patient need only setup/clean-up assistance from one helper? No. FOOTWEAR - STEP 3: Does the patient need only verbal/nonverbal cueing or touching/steadying/contact guard assistance fro m one helper? Yes. 1. [id number] ADMISSION PERFORMANCE: Supervision or touching assistance CODE: 04 ROLL LEFT AND RIGHT: ROLL LEFT AND RIGHT - STEP 1: Does the patient complete the activity by him/herself with no assistance (physical, verbal/nonverbal cueing, setup/clean-up)? No. ROLL LEFT AND RIGHT - STEP 2: Does the patient need only setup/clean-up assistance from one helper? No. ROLL LEFT AND RIGHT - STEP 3: Does the patient need only verbal/nonverbal cueing or touching/steadying/contact guard assistance fro m one helper? No. ROLL LEFT AND RIGHT - STEP 4: Does the patient need physical assistance - for example lifting or trunk support from one helper - wi th the helper providing less than half of the effort? Yes. 1. [id number] ADMISSION PERFORMANCE: Partial/moderate assistance CODE: 03 SIT TO LYING: SIT TO LYING - STEP 1: Does the patient complete the activity by him/herself with no assistance (physical, verbal/nonverbal cueing, setup/clean-up)? No. SIT TO LYING - STEP 2: Does the patient need only setup/clean-up assistance from one helper? No. SIT TO LYING - STEP 3: Does the patient need only verbal/nonverbal cueing or touching/steadying/contact guard assistance fro m one helper? No. SIT TO LYING - STEP 4: Does the patient need physical assistance - for example lifting or trunk support from one helper - wi th the helper providing less than half of the effort? Yes. 1. [id number] ADMISSION PERFORMANCE: Partial/moderate assistance CODE: 03 LYING TO SITTING: LYING TO SITTING ON SIDE OF BED - STEP 1: Does the patient complete the activity by him/herself with no assistance (physical, verbal/nonverbal cueing, setup/clean-up)? No. LYING TO SITTING ON SIDE OF BED - STEP 2: Does the patient need only setup/clean-up assistance from one helper? No. LYING TO SITTING ON SIDE OF BED - STEP 3: Does the patient need only verbal/nonverbal cueing or touching/steadying/contact guard assistance fro m one helper? No. LYING TO SITTING ON SIDE OF BED - STEP 4: Does the patient need physical assistance - for example lifting or trunk support from one helper - wi th the helper providing less than half of the effort? Yes. 1. [id number] ADMISSION PERFORMANCE: Partial/moderate assistance CODE: 03 SIT TO STAND: SIT TO STAND - STEP 1: Does the patient complete the activity by him/herself with no assistance (physical, verbal/nonverbal cueing, setup/clean-up)? No. SIT TO STAND - STEP 2: Does the patient need only setup/clean-up assistance from one helper? No. SIT TO STAND - STEP 3: Does the patient need only verbal/nonverbal cueing or touching/steadying/contact guard assistance fro m one helper? No. SIT TO STAND - STEP 4: Does the patient need physical assistance - for example lifting or trunk support from one helper - wi th the helper providing less than half of the effort? Yes. 1. [id number] ADMISSION PERFORMANCE: Partial/moderate assistance CODE: 03 TRANSFERS: BED, CHAIR: CHAIR/[id number] TRANSFER - STEP 1: Does the patient complete the activity by him/herself with no assistance (physical, verbal/nonverbal cueing, setup/clean-up)? No. CHAIR/[id number] TRANSFER - STEP 2: Does the patient need only setup/clean-up assistance from one helper? No. CHAIR/[id number] TRANSFER - STEP 3: Does the patient need only verbal/nonverbal cueing or touching/steadying/contact guard assistance fro m one helper? Yes. 1. [id number] ADMISSION PERFORMANCE: Supervision or touching assistance CODE: 04 TRANSFER TOILET: TOILET TRANSFER - STEP 1: Does the patient complete the activity by him/herself with no assistance (physical, verbal/nonverbal cueing, setup/clean-up)? No. TOILET TRANSFER - STEP 2: Does the patient need only setup/clean-up assistance from one helper? No. TOILET TRANSFER - STEP 3: Does the patient need only verbal/nonverbal cueing or touching/steadying/contact guard assistance fro m one helper? Yes. 1. [id number] ADMISSION PERFORMANCE: Supervision or touching assistance CODE: 04 TRANSFERS: CAR: Not assessed/no information CODE: - WALK 10 FEET: Not assessed/no information CODE: - 1 STEP (CURB): Not assessed/no information CODE: - PICKING UP OBJECT: Not assessed/no information CODE: - DOES THE PATIENT USE A WHEELCHAIR/SCOOTER? Q1. DOES THE PATIENT USE A WHEELCHAIR/SCOOTER?: Yes CODE: 1 WHEEL 50 FEET WITH TWO TURNS: Not assessed/no information CODE: - INDICATE THE TYPE OF WHEELCHAIR/SCOOTER USED: RR1. INDICATE THE TYPE OF WHEELCHAIR/SCOOTER USED.: Manual CODE: 1 WHEEL 150 FEET: Not assessed/no information CODE: - INDICATE THE TYPE OF WHEELCHAIR/SCOOTER USED: SS1. INDICATE THE TYPE OF WHEELCHAIR/SCOOTER USED.: Manual CODE: 1 BLADDER AND BOWEL: H350. BLADDER CONTINENCE (3-DAY ASSESSMENT PERIOD): Incontinent daily (at least once a day) CODE: 3 H400. BOWEL CONTINENCE (3-DAY ASSESSMENT PERIOD): Always continent CODE: 0 SIGNATURE PANEL: The following modified sections: 1. [id number] Admission Performance, 1. [id number] Admission Performance, 1. [id number] Admission Performance, 1. [id number] Admission Performance, 1. [id number] Admission Performance, 1. [id number] Admission Performance, 1. [id number] Admission Performance, 1. [id number] Admission Performance , 1. [id number] Admission Performance, 1. [id number] Admission Performance, 1. [id number] Admission Performanc e, 1. [id number] Admission Performance, 1. [id number] Admission Performance, 1. [id number] Admission Performan ce, 1. [id number] Admission Performance, Q1. Does the patient use a wheelchair/scooter?, RR1. Indicate t he type of wheelchair/scooter used., Code, SS1. Indicate the type of wheelchair/scooter used., H350. Bladder Continence (3-day assessment period), H400. Bowel Continence (3-day assessment period) were [ electronically] signed by Ryder DarnellNReina on WedJan 19 2020 11:27:59 GMT-0500 (Central Daylight Time)
--- NOTE | 2020-01-19 12:42 | FAST ---
ENCOUNTER DATE AND TIME: 01/19/2020 08:00 (CDT) NAME JIMY NARVAEZ DATE OF : 1940 DATE OF ADMISSION: 01/11/2020 14:12 (CDT) PHONE: AGE: 79 N# [id number] GENDER: Female ENCOUNTER PHYSICIAN: Dr. Willard Sotelo M.D. ADMISSION DIAGNOSIS: - Debility 16 - Debility (16) status post fall with left hip pain and no fracture. EATING: Not assessed/no information CODE: - ORAL HYGIENE: ORAL HYGIENE - STEP 1: Does the patient complete the activity by him/herself with no assistance (physical, verbal/nonverbal cueing, setup/clean-up)? Yes. 1. [id number] ADMISSION PERFORMANCE: Independent CODE: 06 TOILETING HYGIENE: Not assessed/no information CODE: - BATHING: SHOWER/BATHE SELF - STEP 1: Does the patient complete the activity by him/herself with no assistance (physical, verbal/nonverbal cueing, setup/clean-up)? No. SHOWER/BATHE SELF - STEP 2: Does the patient need only setup/clean-up assistance from one helper? No. SHOWER/BATHE SELF - STEP 3: Does the patient need only verbal/nonverbal cueing or touching/steadying/contact guard assistance fro m one helper? No. SHOWER/BATHE SELF - STEP 4: Does the patient need physical assistance - for example lifting or trunk support from one helper - wi th the helper providing less than half of the effort? Yes. 1. [id number] ADMISSION PERFORMANCE: Partial/moderate assistance CODE: 03 DRESSING - UPPER BODY: DRESSING - UPPER BODY - STEP 1: Does the patient complete the activity by him/herself with no assistance (physical, verbal/nonverbal cueing, setup/clean-up)? No. DRESSING - UPPER BODY - STEP 2: Does the patient need only setup/clean-up assistance from one helper? Yes. 1. [id number] ADMISSION PERFORMANCE: Setup or clean-up assistance CODE: 05 DRESSING - LOWER BODY: DRESSING - LOWER BODY - STEP 1: Does the patient complete the activity by him/herself with no assistance (physical, verbal/nonverbal cueing, setup/clean-up)? No. DRESSING - LOWER BODY - STEP 2: Does the patient need only setup/clean-up assistance from one helper? No. DRESSING - LOWER BODY - STEP 3: Does the patient need only verbal/nonverbal cueing or touching/steadying/contact guard assistance fro m one helper? Yes. 1. [id number] ADMISSION PERFORMANCE: Supervision or touching assistance CODE: 04 PUTTING ON/TAKING OFF FOOTWEAR: FOOTWEAR - STEP 1: Does the patient complete the activity by him/herself with no assistance (physical, verbal/nonverbal cueing, setup/clean-up)? No. FOOTWEAR - STEP 2: Does the patient need only setup/clean-up assistance from one helper? No. FOOTWEAR - STEP 3: Does the patient need only verbal/nonverbal cueing or touching/steadying/contact guard assistance fro m one helper? Yes. 1. [id number] ADMISSION PERFORMANCE: Supervision or touching assistance CODE: 04 DOES THE PATIENT USE A WHEELCHAIR/SCOOTER? CODE: EXPR INDICATE THE TYPE OF WHEELCHAIR/SCOOTER USED: CODE: EXPR INDICATE THE TYPE OF WHEELCHAIR/SCOOTER USED: CODE: EXPR BLADDER AND BOWEL: CODE: EXPR CODE: EXPR SIGNATURE PANEL: The following modified sections: 1. [id number] Admission Performance, 1. MY9964x Admission Performance, 1. SZ6049l Admission Performance, 1. RW6157l Admission Performance, 1. VS9769o Admission Performance were [electronically] signed by GAYATHRI Henning on WedJan 19 2020 12:41:19 GMT-0500 (Central Daylight Time)
[2020-01-19] MEDS: VITAMIN B COMPLEX 1 CAP PO SCH (21:04)
[2020-01-19] MEDS: FOLIC ACID 1 MG TABLET PO SCH (21:04)
[2020-01-20] MEDS: LEVOTHYROXINE SOD 0.075 MG TAB PO SCH (06:10)
[2020-01-20] MEDS: FORMULATION-R RECTAL 30GM PR PRN (06:13)
[2020-01-20] MEDS: INSULIN -REGULAR HUMAN 50 UNIT/0.5 ML ML SQ SCH ×4 (07:30→19:38)
[2020-01-20] MEDS: AMIODARONE HCL 200 MG TAB PO SCH (08:52)
[2020-01-20] MEDS: APIXABAN 5 MG TABLET PO SCH (08:52)
[2020-01-20] MEDS: DONEPEZIL HCL 5 MG TAB PO SCH (08:52)
[2020-01-20] MEDS: METOPROLOL XL 25 MG TAB PO SCH ×2 (08:52→19:37)
[2020-01-20] MEDS: FOLIC ACID 1 MG TABLET PO SCH (19:37)
[2020-01-20] MEDS: VITAMIN B COMPLEX 1 CAP PO SCH (19:37)
[2020-01-21] MEDS: LEVOTHYROXINE SOD 0.075 MG TAB PO SCH (05:36)
[2020-01-21] MEDS: INSULIN -REGULAR HUMAN 50 UNIT/0.5 ML ML SQ SCH ×4 (07:30→20:03)
[2020-01-21] MEDS ORDERED: PRALUENT SQ SCH (08:00)
[2020-01-21] MEDS: METOPROLOL XL 25 MG TAB PO SCH ×2 (09:02→20:02)
[2020-01-21] MEDS: DONEPEZIL HCL 5 MG TAB PO SCH (09:03)
[2020-01-21] MEDS: AMIODARONE HCL 200 MG TAB PO SCH (09:03)
[2020-01-21] MEDS: APIXABAN 5 MG TABLET PO SCH (09:03)
[2020-01-21] MEDS ORDERED: NITROGLYCERIN 0.4 MG/TAB SL PRN (11:19)
[2020-01-21] MEDS: VITAMIN B COMPLEX 1 CAP PO SCH (20:02)
[2020-01-21] MEDS: FOLIC ACID 1 MG TABLET PO SCH (20:02)
[2020-01-22] MEDS: LEVOTHYROXINE SOD 0.075 MG TAB PO SCH (05:36)
[2020-01-22] MEDS: INSULIN -REGULAR HUMAN 50 UNIT/0.5 ML ML SQ SCH ×4 (07:30→20:02)
[2020-01-22] MEDS: METOPROLOL XL 25 MG TAB PO SCH ×2 (08:00→20:02)
[2020-01-22] MEDS: ACETAMINOPHEN 500 MG TAB PO PRN ×2 (08:45→21:58)
[2020-01-22] MEDS: APIXABAN 5 MG TABLET PO SCH (08:46)
[2020-01-22] MEDS: DONEPEZIL HCL 5 MG TAB PO SCH (08:46)
[2020-01-22] MEDS: [UNRECOGNIZED DRUG - OTHER] TOP SCH (08:47)
[2020-01-22] MEDS: VITAMIN D 5,000 UNIT CAP PO SCH (08:47)
[2020-01-22] MEDS: AMIODARONE HCL 200 MG TAB PO SCH (08:47)
--- NOTE | 2020-01-22 14:30 | FAST ---
ENCOUNTER DATE AND TIME: 01/22/2020 08:00 (CDT) NAME JIMY NARVAEZ DATE OF : 1940 DATE OF ADMISSION: 01/11/2020 14:12 (CDT) PHONE: AGE: 79 N# [id number] GENDER: Female ENCOUNTER PHYSICIAN: Dr. Willard Sotelo M.D. ADMISSION DIAGNOSIS: - Debility 16 - Debility (16) status post fall with left hip pain and no fracture. EATING: Not assessed/no information CODE: - ORAL HYGIENE: ORAL HYGIENE - STEP 1: Does the patient complete the activity by him/herself with no assistance (physical, verbal/nonverbal cueing, setup/clean-up)? Yes. 1. [id number] ADMISSION PERFORMANCE: Independent CODE: 06 TOILETING HYGIENE: Not assessed/no information CODE: - BATHING: SHOWER/BATHE SELF - STEP 1: Does the patient complete the activity by him/herself with no assistance (physical, verbal/nonverbal cueing, setup/clean-up)? No. SHOWER/BATHE SELF - STEP 2: Does the patient need only setup/clean-up assistance from one helper? No. SHOWER/BATHE SELF - STEP 3: Does the patient need only verbal/nonverbal cueing or touching/steadying/contact guard assistance fro m one helper? No. SHOWER/BATHE SELF - STEP 4: Does the patient need physical assistance - for example lifting or trunk support from one helper - wi th the helper providing less than half of the effort? Yes. 1. [id number] ADMISSION PERFORMANCE: Partial/moderate assistance CODE: 03 DRESSING - UPPER BODY: DRESSING - UPPER BODY - STEP 1: Does the patient complete the activity by him/herself with no assistance (physical, verbal/nonverbal cueing, setup/clean-up)? No. DRESSING - UPPER BODY - STEP 2: Does the patient need only setup/clean-up assistance from one helper? Yes. 1. [id number] ADMISSION PERFORMANCE: Setup or clean-up assistance CODE: 05 DRESSING - LOWER BODY: DRESSING - LOWER BODY - STEP 1: Does the patient complete the activity by him/herself with no assistance (physical, verbal/nonverbal cueing, setup/clean-up)? No. DRESSING - LOWER BODY - STEP 2: Does the patient need only setup/clean-up assistance from one helper? No. DRESSING - LOWER BODY - STEP 3: Does the patient need only verbal/nonverbal cueing or touching/steadying/contact guard assistance fro m one helper? Yes. 1. [id number] ADMISSION PERFORMANCE: Supervision or touching assistance CODE: 04 PUTTING ON/TAKING OFF FOOTWEAR: FOOTWEAR - STEP 1: Does the patient complete the activity by him/herself with no assistance (physical, verbal/nonverbal cueing, setup/clean-up)? No. FOOTWEAR - STEP 2: Does the patient need only setup/clean-up assistance from one helper? No. FOOTWEAR - STEP 3: Does the patient need only verbal/nonverbal cueing or touching/steadying/contact guard assistance fro m one helper? Yes. 1. [id number] ADMISSION PERFORMANCE: Supervision or touching assistance CODE: 04 DOES THE PATIENT USE A WHEELCHAIR/SCOOTER? CODE: EXPR INDICATE THE TYPE OF WHEELCHAIR/SCOOTER USED: CODE: EXPR INDICATE THE TYPE OF WHEELCHAIR/SCOOTER USED: CODE: EXPR BLADDER AND BOWEL: CODE: EXPR CODE: EXPR SIGNATURE PANEL: The following modified sections: 1. [id number] Admission Performance, 1. [id number] Admission Performance, 1. [id number] Admission Performance, 1. [id number] Admission Performance, 1. [id number] Admission Performance were [electronically] signed by GAYATHRI Henning on WedJan 22 2020 14:29:08 T-0500 (Central Daylight Time)
--- NOTE | 2020-01-22 17:14 | R.PN ---
ENCOUNTER DATE AND TIME: 01/22/2020 17:09 (CDT) NAME JIMY NARVAEZ DATE OF : 1940 DATE OF ADMISSION: 01/11/2020 14:12 (CDT) status post fall with left hip pain and no fractureCHIEF COMPLAINT: Debility, left hip pain after falling SUBJECTIVE: Pt denied any depression. Pt denied any Shortness of Breath. Ambulated 70' with standby assistance using a rolling walker. Self-propelled wheelchair 250' with lisandro ateral upper extremities and standby assistance. CBC with diff from 5-7-20 was normal. Glucose ranged 124 to 156. Prealbumin 16.2. VITAL SIGNS Temperature: 99.1 F SBP/DBP: 103/56 Pulse: 56 Resp: 14 MEDICATION ALLERGIES: Aspirin cephazolin CODEINE FENTANYL HYDROCODONE oxycodone propoxyphene tramadol ENVIRONMENTAL ALLERGIES: None Known - Substance Allergies None Known - Other Allergies None Known NURSING: - Shower allowing shower ACTIVITIES OOB only with supervision THERAPIES: - Dietary and Nutrition Adequate Nutrition. Nutritional Education. Nutritional Supplements. PHYSICAL EXAM - Gen Alert and awake Lying in bed No apparent distress Oriented to: person, time, and place - Skin She has a 2 inch area of swelling and redness in the right medial leg. Normacephalic - Eyes No abnormalities - ENMT No abnormalities - Neck No abnormalities No cervical adenopathy - CVS RRR - Chest Clear - Abd Soft - GI Soft Deferred - No abnormalities - Ext Moderate edema in both lower extremities. - MSK 4+/5 weakness in both lower extremities. - Neuro No focal deficits - Psych No abnormalities ASSESSMENT: Pt. is a 79 yo Right-handed white female.On 01/08/2020 she was admitted to [facility] with diagno sis status post fall with left hip pain and no fracture.Her impairment category is Debility 16 - Abbie ility (16).Pre-morbidly, Pt. was independent/mod-I in Transfers Control, Locomotion, and Self-Care; a nd she had good Balance, Social Cognition, Sphincter Control, and Communication.Currently, she has de ficits of Transfers Control, Balance, Locomotion, Safety Awareness, and Self-Care.Pt. is now referred to [facility] for acute in-patient rehabilitation in order to maximize patien t's functional independence in activities of daily living, strength, ROM, and mobility.- Rehab Goal Patient has realistic goal of being discharged at assistance level 6-Emilee to reside at Home with Fam aissatou/Relatives. MDM/PLAN: - Physical Therapy Gait dysfunction - to improve, our physical therapists will perform initial evaluation of pt's statu s upon admission and devise an individualized program for Gait Training, and Wheel Chair mobility Inability to transfer - to improve, our physical therapists will perform initial evaluation of pt's status upon admission and devise an individualized program for Bed mobility Need for home safety evaluation - to improve, our physical therapists will perform initial evaluatio n of pt's status upon admission and devise an individualized program for Home Evaluation Need in caregiver upon discharge - to improve, our physical therapists will perform initial evaluati on of pt's status upon admission and devise an individualized program for Caregiver Training Edema - to improve, our physical therapists will perform initial evaluation of pt's status upon admi ssion and devise an individualized program for Elevation Training, and Lymphedema Therapy New precaution - to improve, our physical therapists will perform initial evaluation of pt's status upon admission and devise an individualized program for Patient precaution education Poor balance - to improve, our physical therapists will perform initial evaluation of pt's status up on admission and devise an individualized program for Balance Training Weakness - to improve, our physical therapists will perform initial evaluation of pt's status upon a dmission and devise an individualized program for Aquatic Therapy, Neuromuscular Reeducation, and Str engthening Achieving independence - to improve, our physical therapists will perform initial evaluation of pt's status upon admission and devise an individualized program for Community Reintegration Activities - Occupational Therapy ADL deficits - to improve, our occupation therapists will perform initial evaluation of pt's status upon admission and devise an individualized program for Bathing, Bed mobility, Community Reintegratio n, Cooking, Dressing, Eating, Fine Motor Skills, Grooming, Homemaking, Kitchen Mobility, Laundry, Pat ient Education, Safety Awareness, Splinting - Positioning, Transfers(Toilet, Tub, Shower), and Wheel Chair Management Need for caregiver services home - to improve, our occupation therapists will perform initial evaluation of pt's status upon admission and devise an individualized program for Caregiver Training Weakness - to improve, our occupation therapists will perform initial evaluation of pt's status upon admission and devise an individualized program for Aquatic Therapy, Balance, Endurance, UE ROM, and UE strengthening - Other See attached MAR (Medication Administration Record) - Diet Type Continue Regular - Diet - Liquid Texture Continue Regular - Tube Feed Continue N/A - Diet - Solid Texture Continue Regular - Shower allowing shower FUNCTIONAL STATUS: UPDATED AT WEEKLY TEAM CONFERENCE - Walking Same score based on distance walked: 1(<=50ft) FUNCTIONAL STATUS: - Self-Care A. Eating Ind B. Grooming Emilee C. Bathing sup D. Dressing - Upper sup E. Dressing - Lower Leana F. Toileting sup - Sphincter Control G. Bladder control Emilee H. Bowel control Emilee - Transfers Control I. Bed/Chair/Wheelchair Leana J. Toilet Leana K. Tub/Shower Leana - Locomotion L. Walk/Wheelchair (B) sup M. Stairs ADNO - Communication N. Comprehension (B) sup O. Expression (B) sup - Social Cognition P. Social Interaction Emilee Q. Problem Solving sup R. Memory sup - Endurance Fair - Balance Fair - Safety Awareness Fair QI SCORES: - Self-Care A. Eating 05-Setup or clean-up assistance B. Oral hygiene 05-Setup or clean-up assistance C. Toileting hygiene 03-Partial/moderate assistance E. Shower/bathe self 10-Not attempted due to environmental limitations F. Upper body dressing 03-Partial/moderate assistance G. Lower body dressing 88-Not attempted due to medical condition or safety concerns H. Putting on/taking off footwear 88-Not attempted due to medical condition or safety concerns - Mobility A. Roll left and right 03-Partial/moderate assistance B. Sit to lying 03-Partial/moderate assistance C. Lying to sitting on side of bed 03-Partial/moderate assistance D. Sit to stand 03-Partial/moderate assistance E. Chair/npi-aa-mqheh transfer 03-Partial/moderate assistance F. Toilet transfer 03-Partial/moderate assistance G. Car transfer 88-Not attempted due to medical condition or safety concerns I. Walk 10 feet 88-Not attempted due to medical condition or safety concerns J. Walk 50 feet with two turns 88-Not attempted due to medical condition or safety concerns K. Walk 150 feet 88-Not attempted due to medical condition or safety concerns L. Walking 10 feet on uneven surfaces 88-Not attempted due to medical condition or safety concerns M. 1 step (curb) 88-Not attempted due to medical condition or safety concerns N. 4 steps 88-Not attempted due to medical condition or safety concerns O. 12 steps 88-Not attempted due to medical condition or safety concerns P. Picking up object 88-Not attempted due to medical condition or safety concerns - Bladder and Bowel Bladder continence 0-Always continent Bowel continence 0-Always continent - Endurance Poor - Balance Poor - Safety Awareness Poor CURRENT FUNC. DEFICITS: Self-Care, Mobility, Endurance, Balance, and Safety Awareness SIGNATURE PANEL: (CDT)
[2020-01-22] MEDS: VITAMIN B COMPLEX 1 CAP PO SCH (20:01)
[2020-01-22] MEDS: FOLIC ACID 1 MG TABLET PO SCH (20:01)
[2020-01-23] MEDS: LEVOTHYROXINE SOD 0.075 MG TAB PO SCH (06:50)
[2020-01-23] MEDS: INSULIN -REGULAR HUMAN 50 UNIT/0.5 ML ML SQ SCH ×4 (07:30→20:02)
[2020-01-23] MEDS: METOPROLOL XL 25 MG TAB PO SCH ×2 (08:00→19:25)
[2020-01-23] MEDS: VITAMIN B COMPLEX 1 CAP PO SCH ×2 (08:35→19:24)
[2020-01-23] MEDS: DONEPEZIL HCL 5 MG TAB PO SCH (08:36)
[2020-01-23] MEDS: APIXABAN 5 MG TABLET PO SCH (08:36)
[2020-01-23] MEDS: AMIODARONE HCL 200 MG TAB PO SCH (08:36)
[2020-01-23 10:57] VITALS: O2SAT 96
--- NOTE | 2020-01-23 17:38 | R.PN ---
ENCOUNTER DATE AND TIME: 01/23/2020 17:34 (CDT) NAME JIMY NARVAEZ DATE OF : 1940 DATE OF ADMISSION: 01/11/2020 14:12 (CDT) status post fall with left hip pain and no fractureCHIEF COMPLAINT: Debility, left hip pain after falling SUBJECTIVE: Pt denied any depression. Pt denied any Shortness of Breath. Ambulated 250' with standby assistance using a rolling walker. Self-propelled wheelchair 250' with bi lateral upper extremities and standby assistance. CBC with diff from 5-7-20 was normal. Glucose ranged 94 to 108. Prealbumin 16.2. VITAL SIGNS Temperature: 97.9 F SBP/DBP: 109/49 Pulse: 59 Resp: 14 MEDICATION ALLERGIES: Aspirin cephazolin CODEINE FENTANYL HYDROCODONE oxycodone propoxyphene tramadol ENVIRONMENTAL ALLERGIES: None Known - Substance Allergies None Known - Other Allergies None Known NURSING: - Shower allowing shower ACTIVITIES OOB only with supervision THERAPIES: - Dietary and Nutrition Adequate Nutrition. Nutritional Education. Nutritional Supplements. PHYSICAL EXAM - Gen Alert and awake Lying in bed No apparent distress Oriented to: person, time, and place - Skin She has a 2 inch area of swelling and redness in the right medial leg. Normacephalic - Eyes No abnormalities - ENMT No abnormalities - Neck No abnormalities No cervical adenopathy - CVS RRR - Chest Clear - Abd Soft - GI Soft Deferred - No abnormalities - Ext Moderate edema in both lower extremities. - MSK 4+/5 weakness in both lower extremities. - Neuro No focal deficits - Psych No abnormalities ASSESSMENT: Pt. is a 79 yo Right-handed white female.On 01/08/2020 she was admitted to [facility] with diagno sis status post fall with left hip pain and no fracture.Her impairment category is Debility 16 - Abbie ility (16).Pre-morbidly, Pt. was independent/mod-I in Transfers Control, Locomotion, and Self-Care; a nd she had good Balance, Social Cognition, Sphincter Control, and Communication.Currently, she has de ficits of Transfers Control, Balance, Locomotion, Safety Awareness, and Self-Care.Pt. is now referred to [facility] for acute in-patient rehabilitation in order to maximize patien t's functional independence in activities of daily living, strength, ROM, and mobility.- Rehab Goal Patient has realistic goal of being discharged at assistance level 6-Emilee to reside at Home with Fam aissatou/Relatives. MDM/PLAN: - Physical Therapy Gait dysfunction - to improve, our physical therapists will perform initial evaluation of pt's statu s upon admission and devise an individualized program for Gait Training, and Wheel Chair mobility Inability to transfer - to improve, our physical therapists will perform initial evaluation of pt's status upon admission and devise an individualized program for Bed mobility Need for home safety evaluation - to improve, our physical therapists will perform initial evaluatio n of pt's status upon admission and devise an individualized program for Home Evaluation Need in caregiver upon discharge - to improve, our physical therapists will perform initial evaluati on of pt's status upon admission and devise an individualized program for Caregiver Training Edema - to improve, our physical therapists will perform initial evaluation of pt's status upon admi ssion and devise an individualized program for Elevation Training, and Lymphedema Therapy New precaution - to improve, our physical therapists will perform initial evaluation of pt's status upon admission and devise an individualized program for Patient precaution education Poor balance - to improve, our physical therapists will perform initial evaluation of pt's status up on admission and devise an individualized program for Balance Training Weakness - to improve, our physical therapists will perform initial evaluation of pt's status upon a dmission and devise an individualized program for Aquatic Therapy, Neuromuscular Reeducation, and Str engthening Achieving independence - to improve, our physical therapists will perform initial evaluation of pt's status upon admission and devise an individualized program for Community Reintegration Activities - Occupational Therapy ADL deficits - to improve, our occupation therapists will perform initial evaluation of pt's status upon admission and devise an individualized program for Bathing, Bed mobility, Community Reintegratio n, Cooking, Dressing, Eating, Fine Motor Skills, Grooming, Homemaking, Kitchen Mobility, Laundry, Pat ient Education, Safety Awareness, Splinting - Positioning, Transfers(Toilet, Tub, Shower), and Wheel Chair Management Need for disabilities caregiver - to improve, our occupation therapists will perform initial evaluation of pt's status upon admission and devise an individualized program for Caregiver Training Weakness - to improve, our occupation therapists will perform initial evaluation of pt's status upon admission and devise an individualized program for Aquatic Therapy, Balance, Endurance, UE ROM, and UE strengthening - Other See attached MAR (Medication Administration Record) - Diet Type Continue Regular - Diet - Liquid Texture Continue Regular - Tube Feed Continue N/A - Diet - Solid Texture Continue Regular - Shower allowing shower FUNCTIONAL STATUS: UPDATED AT WEEKLY TEAM CONFERENCE - Walking Same score based on distance walked: 1(<=50ft) FUNCTIONAL STATUS: - Self-Care A. Eating Ind B. Grooming Emilee C. Bathing sup D. Dressing - Upper sup E. Dressing - Lower Leana F. Toileting sup - Sphincter Control G. Bladder control Emilee H. Bowel control Emilee - Transfers Control I. Bed/Chair/Wheelchair Leana J. Toilet Leana K. Tub/Shower Leana - Locomotion L. Walk/Wheelchair (B) sup M. Stairs ADNO - Communication N. Comprehension (B) sup O. Expression (B) sup - Social Cognition P. Social Interaction Emilee Q. Problem Solving sup R. Memory sup - Endurance Fair - Balance Fair - Safety Awareness Fair QI SCORES: - Self-Care A. Eating 05-Setup or clean-up assistance B. Oral hygiene 05-Setup or clean-up assistance C. Toileting hygiene 03-Partial/moderate assistance E. Shower/bathe self 10-Not attempted due to environmental limitations F. Upper body dressing 03-Partial/moderate assistance G. Lower body dressing 88-Not attempted due to medical condition or safety concerns H. Putting on/taking off footwear 88-Not attempted due to medical condition or safety concerns - Mobility A. Roll left and right 03-Partial/moderate assistance B. Sit to lying 03-Partial/moderate assistance C. Lying to sitting on side of bed 03-Partial/moderate assistance D. Sit to stand 03-Partial/moderate assistance E. Chair/hhy-eh-ypiof transfer 03-Partial/moderate assistance F. Toilet transfer 03-Partial/moderate assistance G. Car transfer 88-Not attempted due to medical condition or safety concerns I. Walk 10 feet 88-Not attempted due to medical condition or safety concerns J. Walk 50 feet with two turns 88-Not attempted due to medical condition or safety concerns K. Walk 150 feet 88-Not attempted due to medical condition or safety concerns L. Walking 10 feet on uneven surfaces 88-Not attempted due to medical condition or safety concerns M. 1 step (curb) 88-Not attempted due to medical condition or safety concerns N. 4 steps 88-Not attempted due to medical condition or safety concerns O. 12 steps 88-Not attempted due to medical condition or safety concerns P. Picking up object 88-Not attempted due to medical condition or safety concerns - Bladder and Bowel Bladder continence 0-Always continent Bowel continence 0-Always continent - Endurance Poor - Balance Poor - Safety Awareness Poor CURRENT FUNC. DEFICITS: Self-Care, Mobility, Endurance, Balance, and Safety Awareness SIGNATURE PANEL: (CDT)
[2020-01-23] MEDS: ACETAMINOPHEN 500 MG TAB PO PRN (19:26)
[2020-01-23] MEDS: FOLIC ACID 1 MG TABLET PO SCH (20:02)
--- NOTE | 2020-01-24 01:50 | FAST ---
SHIFT START DATE/TIME: 01/19/2020 19:00 (CDT) SHIFT END DATE/TIME: 01/20/2020 07:00 (CDT) NAME JIMY NARVAEZ DATE OF : 1940 DATE OF ADMISSION: 01/11/2020 14:12 (CDT) PHONE: AGE: 79 N# [id number] GENDER: Female ENCOUNTER PHYSICIAN: Dr. Willard Sotelo M.D. ADMISSION DIAGNOSIS: - Debility 16 - Debility (16) status post fall with left hip pain and no fracture. EATING: Not assessed/no information CODE: - ORAL HYGIENE: Not assessed/no information CODE: - TOILETING HYGIENE: TOILETING HYGIENE - STEP 1: Does the patient complete the activity by him/herself with no assistance (physical, verbal/nonverbal cueing, setup/clean-up)? No. TOILETING HYGIENE - STEP 2: Does the patient need only setup/clean-up assistance from one helper? No. TOILETING HYGIENE - STEP 3: Does the patient need only verbal/nonverbal cueing or touching/steadying/contact guard assistance fro m one helper? No. TOILETING HYGIENE - STEP 4: Does the patient need physical assistance - for example lifting or trunk support from one helper - wi th the helper providing less than half of the effort? Yes. 1. [id number] ADMISSION PERFORMANCE: Partial/moderate assistance CODE: 03 BATHING: Not assessed/no information CODE: - DRESSING - UPPER BODY: Not assessed/no information CODE: - DRESSING - LOWER BODY: Not assessed/no information CODE: - PUTTING ON/TAKING OFF FOOTWEAR: Not assessed/no information CODE: - ROLL LEFT AND RIGHT: ROLL LEFT AND RIGHT - STEP 1: Does the patient complete the activity by him/herself with no assistance (physical, verbal/nonverbal cueing, setup/clean-up)? No. ROLL LEFT AND RIGHT - STEP 2: Does the patient need only setup/clean-up assistance from one helper? No. ROLL LEFT AND RIGHT - STEP 3: Does the patient need only verbal/nonverbal cueing or touching/steadying/contact guard assistance fro m one helper? Yes. 1. [id number] ADMISSION PERFORMANCE: Supervision or touching assistance CODE: 04 SIT TO LYING: SIT TO LYING - STEP 1: Does the patient complete the activity by him/herself with no assistance (physical, verbal/nonverbal cueing, setup/clean-up)? No. SIT TO LYING - STEP 2: Does the patient need only setup/clean-up assistance from one helper? No. SIT TO LYING - STEP 3: Does the patient need only verbal/nonverbal cueing or touching/steadying/contact guard assistance fro m one helper? Yes. 1. [id number] ADMISSION PERFORMANCE: Supervision or touching assistance CODE: 04 LYING TO SITTING: LYING TO SITTING ON SIDE OF BED - STEP 1: Does the patient complete the activity by him/herself with no assistance (physical, verbal/nonverbal cueing, setup/clean-up)? No. LYING TO SITTING ON SIDE OF BED - STEP 2: Does the patient need only setup/clean-up assistance from one helper? No. LYING TO SITTING ON SIDE OF BED - STEP 3: Does the patient need only verbal/nonverbal cueing or touching/steadying/contact guard assistance fro m one helper? Yes. 1. [id number] ADMISSION PERFORMANCE: Supervision or touching assistance CODE: 04 SIT TO STAND: SIT TO STAND - STEP 1: Does the patient complete the activity by him/herself with no assistance (physical, verbal/nonverbal cueing, setup/clean-up)? No. SIT TO STAND - STEP 2: Does the patient need only setup/clean-up assistance from one helper? No. SIT TO STAND - STEP 3: Does the patient need only verbal/nonverbal cueing or touching/steadying/contact guard assistance fro m one helper? Yes. 1. [id number] ADMISSION PERFORMANCE: Supervision or touching assistance CODE: 04 TRANSFERS: BED, CHAIR: CHAIR/[id number] TRANSFER - STEP 1: Does the patient complete the activity by him/herself with no assistance (physical, verbal/nonverbal cueing, setup/clean-up)? No. CHAIR/[id number] TRANSFER - STEP 2: Does the patient need only setup/clean-up assistance from one helper? No. CHAIR/[id number] TRANSFER - STEP 3: Does the patient need only verbal/nonverbal cueing or touching/steadying/contact guard assistance fro m one helper? Yes. 1. [id number] ADMISSION PERFORMANCE: Supervision or touching assistance CODE: 04 TRANSFER TOILET: TOILET TRANSFER - STEP 1: Does the patient complete the activity by him/herself with no assistance (physical, verbal/nonverbal cueing, setup/clean-up)? No. TOILET TRANSFER - STEP 2: Does the patient need only setup/clean-up assistance from one helper? No. TOILET TRANSFER - STEP 3: Does the patient need only verbal/nonverbal cueing or touching/steadying/contact guard assistance fro m one helper? Yes. 1. [id number] ADMISSION PERFORMANCE: Supervision or touching assistance CODE: 04 TRANSFERS: CAR: Not assessed/no information CODE: - WALK 10 FEET: Not assessed/no information CODE: - 1 STEP (CURB): Not assessed/no information CODE: - PICKING UP OBJECT: Not assessed/no information CODE: - DOES THE PATIENT USE A WHEELCHAIR/SCOOTER? CODE: EXPR WHEEL 50 FEET WITH TWO TURNS: Not assessed/no information CODE: - INDICATE THE TYPE OF WHEELCHAIR/SCOOTER USED: CODE: EXPR WHEEL 150 FEET: Not assessed/no information CODE: - INDICATE THE TYPE OF WHEELCHAIR/SCOOTER USED: CODE: EXPR BLADDER AND BOWEL: H350. BLADDER CONTINENCE (3-DAY ASSESSMENT PERIOD): Always continent (no documented incontinence) CODE: 0 H400. BOWEL CONTINENCE (3-DAY ASSESSMENT PERIOD): Always continent CODE: 0
[2020-01-24 05:39] VITALS: BMI 59.1
[2020-01-24] MEDS: LEVOTHYROXINE SOD 0.075 MG TAB PO SCH (07:22)
[2020-01-24 07:28] VITALS: BP 108/44; TEMP 98.5
[2020-01-24] MEDS: INSULIN -REGULAR HUMAN 50 UNIT/0.5 ML ML SQ SCH ×2 (07:30→11:30)
[2020-01-24] MEDS: METOPROLOL XL 25 MG TAB PO SCH (08:00)
[2020-01-24] MEDS: AMIODARONE HCL 200 MG TAB PO SCH (08:49)
[2020-01-24] MEDS: APIXABAN 5 MG TABLET PO SCH (08:49)
[2020-01-24] MEDS: VITAMIN B COMPLEX 1 CAP PO SCH (08:49)
[2020-01-24] MEDS: [UNRECOGNIZED DRUG - OTHER] TOP SCH (08:49)
[2020-01-24] MEDS: DONEPEZIL HCL 5 MG TAB PO SCH (08:50)
--- NOTE | 2020-01-24 14:16 | FAST ---
ENCOUNTER DATE AND TIME: 01/24/2020 08:00 (CDT) NAME JIMY NARVAEZ DATE OF : 1940 DATE OF ADMISSION: 01/11/2020 14:12 (CDT) PHONE: AGE: 79 N# [id number] GENDER: Female ENCOUNTER PHYSICIAN: Dr. Willard Sotelo M.D. ADMISSION DIAGNOSIS: - Debility 16 - Debility (16) status post fall with left hip pain and no fracture. EATING: Not assessed/no information CODE: - ORAL HYGIENE: ORAL HYGIENE - STEP 1: Does the patient complete the activity by him/herself with no assistance (physical, verbal/nonverbal cueing, setup/clean-up)? Yes. 1. [id number] ADMISSION PERFORMANCE: Independent CODE: 06 TOILETING HYGIENE: Not assessed/no information CODE: - BATHING: SHOWER/BATHE SELF - STEP 1: Does the patient complete the activity by him/herself with no assistance (physical, verbal/nonverbal cueing, setup/clean-up)? No. SHOWER/BATHE SELF - STEP 2: Does the patient need only setup/clean-up assistance from one helper? No. SHOWER/BATHE SELF - STEP 3: Does the patient need only verbal/nonverbal cueing or touching/steadying/contact guard assistance fro m one helper? No. SHOWER/BATHE SELF - STEP 4: Does the patient need physical assistance - for example lifting or trunk support from one helper - wi th the helper providing less than half of the effort? Yes. 1. [id number] ADMISSION PERFORMANCE: Partial/moderate assistance CODE: 03 DRESSING - UPPER BODY: DRESSING - UPPER BODY - STEP 1: Does the patient complete the activity by him/herself with no assistance (physical, verbal/nonverbal cueing, setup/clean-up)? Yes. 1. [id number] ADMISSION PERFORMANCE: Independent CODE: 06 DRESSING - LOWER BODY: DRESSING - LOWER BODY - STEP 1: Does the patient complete the activity by him/herself with no assistance (physical, verbal/nonverbal cueing, setup/clean-up)? No. DRESSING - LOWER BODY - STEP 2: Does the patient need only setup/clean-up assistance from one helper? No. DRESSING - LOWER BODY - STEP 3: Does the patient need only verbal/nonverbal cueing or touching/steadying/contact guard assistance fro m one helper? Yes. 1. [id number] ADMISSION PERFORMANCE: Supervision or touching assistance CODE: 04 PUTTING ON/TAKING OFF FOOTWEAR: FOOTWEAR - STEP 1: Does the patient complete the activity by him/herself with no assistance (physical, verbal/nonverbal cueing, setup/clean-up)? No. FOOTWEAR - STEP 2: Does the patient need only setup/clean-up assistance from one helper? No. FOOTWEAR - STEP 3: Does the patient need only verbal/nonverbal cueing or touching/steadying/contact guard assistance fro m one helper? Yes. 1. ADMISSION PERFORMANCE: Supervision or touching assistance CODE: 04 DOES THE PATIENT USE A WHEELCHAIR/SCOOTER? CODE: EXPR INDICATE THE TYPE OF WHEELCHAIR/SCOOTER USED: CODE: EXPR INDICATE THE TYPE OF WHEELCHAIR/SCOOTER USED: CODE: EXPR BLADDER AND BOWEL: CODE: EXPR CODE: EXPR SIGNATURE PANEL: The following modified sections: 1. [id number] Admission Performance, 1. [id number] Admission Performance, 1. [id number] Admission Performance, 1. [id number] Admission Performance, 1. [id number] Admission Performance were [electronically] signed by GAYATHRI Henning on WedJan 24 2020 14:15:30 GMT-0500 (Central Daylight Time)
--- NOTE | 2020-01-24 15:04 | FAST ---
SHIFT START DATE/TIME: 01/24/2020 07:00 (CDT) SHIFT END DATE/TIME: 01/24/2020 19:00 (CDT) NAME JIMY NARVAEZ DATE OF : 1940 DATE OF ADMISSION: 01/11/2020 14:12 (CDT) PHONE: AGE: 79 N# [id number] GENDER: Female ENCOUNTER PHYSICIAN: Dr. Willard Sotelo M.D. ADMISSION DIAGNOSIS: - Debility 16 - Debility (16) status post fall with left hip pain and no fracture. EATING: EATING - STEP 1: Does the patient complete the activity by him/herself with no assistance (physical, verbal/nonverbal cueing, setup/clean-up)? No. EATING - STEP 2: Does the patient need only setup/clean-up assistance from one helper? Yes. 1. [id number] ADMISSION PERFORMANCE: Setup or clean-up assistance CODE: 05 ORAL HYGIENE: ORAL HYGIENE - STEP 1: Does the patient complete the activity by him/herself with no assistance (physical, verbal/nonverbal cueing, setup/clean-up)? Yes. 1. [id number] ADMISSION PERFORMANCE: Independent CODE: 06 TOILETING HYGIENE: TOILETING HYGIENE - STEP 1: Does the patient complete the activity by him/herself with no assistance (physical, verbal/nonverbal cueing, setup/clean-up)? No. TOILETING HYGIENE - STEP 2: Does the patient need only setup/clean-up assistance from one helper? Yes. 1. [id number] ADMISSION PERFORMANCE: Setup or clean-up assistance CODE: 05 BATHING: Not assessed/no information CODE: - DRESSING - UPPER BODY: DRESSING - UPPER BODY - STEP 1: Does the patient complete the activity by him/herself with no assistance (physical, verbal/nonverbal cueing, setup/clean-up)? No. DRESSING - UPPER BODY - STEP 2: Does the patient need only setup/clean-up assistance from one helper? Yes. 1. [id number] ADMISSION PERFORMANCE: Setup or clean-up assistance CODE: 05 DRESSING - LOWER BODY: DRESSING - LOWER BODY - STEP 1: Does the patient complete the activity by him/herself with no assistance (physical, verbal/nonverbal cueing, setup/clean-up)? No. DRESSING - LOWER BODY - STEP 2: Does the patient need only setup/clean-up assistance from one helper? No. DRESSING - LOWER BODY - STEP 3: Does the patient need only verbal/nonverbal cueing or touching/steadying/contact guard assistance fro m one helper? Yes. 1. [id number] ADMISSION PERFORMANCE: Supervision or touching assistance CODE: 04 PUTTING ON/TAKING OFF FOOTWEAR: FOOTWEAR - STEP 1: Does the patient complete the activity by him/herself with no assistance (physical, verbal/nonverbal cueing, setup/clean-up)? No. FOOTWEAR - STEP 2: Does the patient need only setup/clean-up assistance from one helper? No. FOOTWEAR - STEP 3: Does the patient need only verbal/nonverbal cueing or touching/steadying/contact guard assistance fro m one helper? Yes. 1. [id number] ADMISSION PERFORMANCE: Supervision or touching assistance CODE: 04 ROLL LEFT AND RIGHT: ROLL LEFT AND RIGHT - STEP 1: Does the patient complete the activity by him/herself with no assistance (physical, verbal/nonverbal cueing, setup/clean-up)? No. ROLL LEFT AND RIGHT - STEP 2: Does the patient need only setup/clean-up assistance from one helper? No. ROLL LEFT AND RIGHT - STEP 3: Does the patient need only verbal/nonverbal cueing or touching/steadying/contact guard assistance fro m one helper? No. ROLL LEFT AND RIGHT - STEP 4: Does the patient need physical assistance - for example lifting or trunk support from one helper - wi th the helper providing less than half of the effort? Yes. 1. [id number] ADMISSION PERFORMANCE: Partial/moderate assistance CODE: 03 SIT TO LYING: SIT TO LYING - STEP 1: Does the patient complete the activity by him/herself with no assistance (physical, verbal/nonverbal cueing, setup/clean-up)? No. SIT TO LYING - STEP 2: Does the patient need only setup/clean-up assistance from one helper? No. SIT TO LYING - STEP 3: Does the patient need only verbal/nonverbal cueing or touching/steadying/contact guard assistance fro m one helper? No. SIT TO LYING - STEP 4: Does the patient need physical assistance - for example lifting or trunk support from one helper - wi th the helper providing less than half of the effort? Yes. 1. [id number] ADMISSION PERFORMANCE: Partial/moderate assistance CODE: 03 LYING TO SITTING: LYING TO SITTING ON SIDE OF BED - STEP 1: Does the patient complete the activity by him/herself with no assistance (physical, verbal/nonverbal cueing, setup/clean-up)? No. LYING TO SITTING ON SIDE OF BED - STEP 2: Does the patient need only setup/clean-up assistance from one helper? No. LYING TO SITTING ON SIDE OF BED - STEP 3: Does the patient need only verbal/nonverbal cueing or touching/steadying/contact guard assistance fro m one helper? No. LYING TO SITTING ON SIDE OF BED - STEP 4: Does the patient need physical assistance - for example lifting or trunk support from one helper - wi th the helper providing less than half of the effort? Yes. 1. [id number] ADMISSION PERFORMANCE: Partial/moderate assistance CODE: 03 SIT TO STAND: SIT TO STAND - STEP 1: Does the patient complete the activity by him/herself with no assistance (physical, verbal/nonverbal cueing, setup/clean-up)? No. SIT TO STAND - STEP 2: Does the patient need only setup/clean-up assistance from one helper? No. SIT TO STAND - STEP 3: Does the patient need only verbal/nonverbal cueing or touching/steadying/contact guard assistance fro m one helper? Yes. 1. [id number] ADMISSION PERFORMANCE: Supervision or touching assistance CODE: 04 TRANSFERS: BED, CHAIR: CHAIR/IAG-EX-RUUVP TRANSFER - STEP 1: Does the patient complete the activity by him/herself with no assistance (physical, verbal/nonverbal cueing, setup/clean-up)? No. CHAIR/ZSN-PT-GYCER TRANSFER - STEP 2: Does the patient need only setup/clean-up assistance from one helper? No. CHAIR/LSD-UJ-ZGJOT TRANSFER - STEP 3: Does the patient need only verbal/nonverbal cueing or touching/steadying/contact guard assistance fro m one helper? Yes. 1. [id number] ADMISSION PERFORMANCE: Supervision or touching assistance CODE: 04 TRANSFER TOILET: TOILET TRANSFER - STEP 1: Does the patient complete the activity by him/herself with no assistance (physical, verbal/nonverbal cueing, setup/clean-up)? No. TOILET TRANSFER - STEP 2: Does the patient need only setup/clean-up assistance from one helper? No. TOILET TRANSFER - STEP 3: Does the patient need only verbal/nonverbal cueing or touching/steadying/contact guard assistance fro m one helper? Yes. 1. [id number] ADMISSION PERFORMANCE: Supervision or touching assistance CODE: 04 TRANSFERS: CAR: Not assessed/no information CODE: - WALK 10 FEET: Not assessed/no information CODE: - 1 STEP (CURB): Not assessed/no information CODE: - PICKING UP OBJECT: Not assessed/no information CODE: - DOES THE PATIENT USE A WHEELCHAIR/SCOOTER? Q1. DOES THE PATIENT USE A WHEELCHAIR/SCOOTER?: Yes CODE: 1 WHEEL 50 FEET WITH TWO TURNS: WHEEL 50 FEET WITH TWO TURNS - STEP 1: Does the patient complete the activity by him/herself with no assistance (physical, verbal/nonverbal cueing, setup/clean-up)? No. WHEEL 50 FEET WITH TWO TURNS - STEP 2: Does the patient need only setup/clean-up assistance from one helper? No. WHEEL 50 FEET WITH TWO TURNS - STEP 3: Does the patient need only verbal/nonverbal cueing or touching/steadying/contact guard assistance fro m one helper? No. WHEEL 50 FEET WITH TWO TURNS - STEP 4: Does the patient need physical assistance - for example lifting or trunk support from one helper - wi th the helper providing less than half of the effort? Yes. 1. [id number] ADMISSION PERFORMANCE: Partial/moderate assistance CODE: 03 INDICATE THE TYPE OF WHEELCHAIR/SCOOTER USED: RR1. INDICATE THE TYPE OF WHEELCHAIR/SCOOTER USED.: Manual CODE: 1 WHEEL 150 FEET: WHEEL 150 FEET - STEP 1: Does the patient complete the activity by him/herself with no assistance (physical, verbal/nonverbal cueing, setup/clean-up)? No. WHEEL 150 FEET - STEP 2: Does the patient need only setup/clean-up assistance from one helper? No. WHEEL 150 FEET - STEP 3: Does the patient need only verbal/nonverbal cueing or touching/steadying/contact guard assistance fro m one helper? No. WHEEL 150 FEET - STEP 4: Does the patient need physical assistance - for example lifting or trunk support from one helper - wi th the helper providing less than half of the effort? Yes. 1. [id number] ADMISSION PERFORMANCE: Partial/moderate assistance CODE: 03 INDICATE THE TYPE OF WHEELCHAIR/SCOOTER USED: SS1. INDICATE THE TYPE OF WHEELCHAIR/SCOOTER USED.: Manual CODE: 1 BLADDER AND BOWEL: H350. BLADDER CONTINENCE (3-DAY ASSESSMENT PERIOD): Always continent (no documented incontinence) CODE: 0 H400. BOWEL CONTINENCE (3-DAY ASSESSMENT PERIOD): Always continent CODE: 0 SIGNATURE PANEL: The following modified sections: 1. [id number] Admission Performance, 1. [id number] Admission Performance, 1. [id number] Admission Performance, 1. HS6080h Admission Performance, 1. DC1102c Admission Performance, 1. JC1046h Admission Performance, 1. JZ0933S Admission Performance, 1. UY1303O Admission Performance , 1. [id number] Admission Performance, 1. WC2272D Admission Performance, 1. [id number] Admission Performanc e, 1. TW2082N Admission Performance, Q1. Does the patient use a wheelchair/scooter?, 1. [id number] Admis tino Performance, RR1. Indicate the type of wheelchair/scooter used., 1. [id number] Admission Performanc e, Code, SS1. Indicate the type of wheelchair/scooter used., H350. Bladder Continence (3-day assessme nt period), H400. Bowel Continence (3-day assessment period) were [electronically] signed by Chelsea Walden C.N.ANeisha on WedJan 24 2020 15:03:58 [facility]-0500 (Central Daylight Time)
--- NOTE | 2020-01-24 17:23 | R.PN ---
ENCOUNTER DATE AND TIME: 01/24/2020 17:20 (CDT) NAME JIMY NARVAEZ DATE OF : 1940 DATE OF ADMISSION: 01/11/2020 14:12 (CDT) status post fall with left hip pain and no fractureCHIEF COMPLAINT: Debility, left hip pain after falling SUBJECTIVE: Pt denied any depression. Pt denied any Shortness of Breath. Ambulated 85' with standby assistance using a rolling walker. Self-propelled wheelchair 150' with lisandro ateral upper extremities and standby assistance. CBC with diff from 5-7-20 was normal. Glucose ranged 167 to 206. Prealbumin 16.2. She will be discharged home today to continue physical therapy. Ambulated 500' with standby assistance using a rolling walker. VITAL SIGNS Temperature: 98.5 F SBP/DBP: 108/44 Pulse: 64 Resp: 16 MEDICATION ALLERGIES: Aspirin cephazolin CODEINE FENTANYL HYDROCODONE oxycodone propoxyphene tramadol ENVIRONMENTAL ALLERGIES: None Known - Substance Allergies None Known - Other Allergies None Known NURSING: - Shower allowing shower ACTIVITIES OOB only with supervision THERAPIES: - Dietary and Nutrition Adequate Nutrition. Nutritional Education. Nutritional Supplements. PHYSICAL EXAM - Gen Alert and awake Lying in bed No apparent distress Oriented to: person, time, and place - Skin She has a 2 inch area of swelling and redness in the right medial leg. Normacephalic - Eyes No abnormalities - ENMT No abnormalities - Neck No abnormalities No cervical adenopathy - CVS RRR - Chest Clear - Abd Soft - GI Soft Deferred - No abnormalities - Ext Moderate edema in both lower extremities. - MSK 4+/5 weakness in both lower extremities. - Neuro No focal deficits - Psych No abnormalities ASSESSMENT: Pt. is a 79 yo Right-handed white female.On 01/08/2020 she was admitted to [facility] with diagno sis status post fall with left hip pain and no fracture.Her impairment category is Debility 16 - Abbie ility (16).Pre-morbidly, Pt. was independent/mod-I in Transfers Control, Locomotion, and Self-Care; a nd she had good Balance, Social Cognition, Sphincter Control, and Communication.Currently, she has de ficits of Transfers Control, Balance, Locomotion, Safety Awareness, and Self-Care.Pt. is now referred to [facility] for acute in-patient rehabilitation in order to maximize patien t's functional independence in activities of daily living, strength, ROM, and mobility.- Rehab Goal Patient has realistic goal of being discharged at assistance level 6-Emilee to reside at Home with Fam aissatou/Relatives. MDM/PLAN: - Physical Therapy Gait dysfunction - to improve, our physical therapists will perform initial evaluation of pt's statu s upon admission and devise an individualized program for Gait Training, and Wheel Chair mobility Inability to transfer - to improve, our physical therapists will perform initial evaluation of pt's status upon admission and devise an individualized program for Bed mobility Need for home safety evaluation - to improve, our physical therapists will perform initial evaluatio n of pt's status upon admission and devise an individualized program for Home Evaluation Need in caregiver upon discharge - to improve, our physical therapists will perform initial evaluati on of pt's status upon admission and devise an individualized program for Caregiver Training Edema - to improve, our physical therapists will perform initial evaluation of pt's status upon admi ssion and devise an individualized program for Elevation Training, and Lymphedema Therapy New precaution - to improve, our physical therapists will perform initial evaluation of pt's status upon admission and devise an individualized program for Patient precaution education Poor balance - to improve, our physical therapists will perform initial evaluation of pt's status up on admission and devise an individualized program for Balance Training Weakness - to improve, our physical therapists will perform initial evaluation of pt's status upon a dmission and devise an individualized program for Aquatic Therapy, Neuromuscular Reeducation, and Str engthening Achieving independence - to improve, our physical therapists will perform initial evaluation of pt's status upon admission and devise an individualized program for Community Reintegration Activities - Occupational Therapy ADL deficits - to improve, our occupation therapists will perform initial evaluation of pt's status upon admission and devise an individualized program for Bathing, Bed mobility, Community Reintegratio n, Cooking, Dressing, Eating, Fine Motor Skills, Grooming, Homemaking, Kitchen Mobility, Laundry, Pat ient Education, Safety Awareness, Splinting - Positioning, Transfers(Toilet, Tub, Shower), and Wheel Chair Management Need for intensive care anaesthetist - to improve, our occupation therapists will perform initial evaluation of pt's status upon admission and devise an individualized program for Caregiver Training Weakness - to improve, our occupation therapists will perform initial evaluation of pt's status upon admission and devise an individualized program for Aquatic Therapy, Balance, Endurance, UE ROM, and UE strengthening - Other See attached MAR (Medication Administration Record) - Diet Type Continue Regular - Diet - Liquid Texture Continue Regular - Tube Feed Continue N/A - Diet - Solid Texture Continue Regular - Shower allowing shower FUNCTIONAL STATUS: UPDATED AT WEEKLY TEAM CONFERENCE - Walking Same score based on distance walked: 1(<=50ft) FUNCTIONAL STATUS: - Self-Care A. Eating Ind B. Grooming Emilee C. Bathing sup D. Dressing - Upper sup E. Dressing - Lower Leana F. Toileting sup - Sphincter Control G. Bladder control Emilee H. Bowel control Emilee - Transfers Control I. Bed/Chair/Wheelchair Leana J. Toilet Leana K. Tub/Shower Leana - Locomotion L. Walk/Wheelchair (B) sup M. Stairs ADNO - Communication N. Comprehension (B) sup O. Expression (B) sup - Social Cognition P. Social Interaction Emilee Q. Problem Solving sup R. Memory sup - Endurance Fair - Balance Fair - Safety Awareness Fair QI SCORES: - Self-Care A. Eating 05-Setup or clean-up assistance B. Oral hygiene 05-Setup or clean-up assistance C. Toileting hygiene 03-Partial/moderate assistance E. Shower/bathe self 10-Not attempted due to environmental limitations F. Upper body dressing 03-Partial/moderate assistance G. Lower body dressing 88-Not attempted due to medical condition or safety concerns H. Putting on/taking off footwear 88-Not attempted due to medical condition or safety concerns - Mobility A. Roll left and right 03-Partial/moderate assistance B. Sit to lying 03-Partial/moderate assistance C. Lying to sitting on side of bed 03-Partial/moderate assistance D. Sit to stand 03-Partial/moderate assistance E. Chair/hfs-si-binua transfer 03-Partial/moderate assistance F. Toilet transfer 03-Partial/moderate assistance G. Car transfer 88-Not attempted due to medical condition or safety concerns I. Walk 10 feet 88-Not attempted due to medical condition or safety concerns J. Walk 50 feet with two turns 88-Not attempted due to medical condition or safety concerns K. Walk 150 feet 88-Not attempted due to medical condition or safety concerns L. Walking 10 feet on uneven surfaces 88-Not attempted due to medical condition or safety concerns M. 1 step (curb) 88-Not attempted due to medical condition or safety concerns N. 4 steps 88-Not attempted due to medical condition or safety concerns O. 12 steps 88-Not attempted due to medical condition or safety concerns P. Picking up object 88-Not attempted due to medical condition or safety concerns - Bladder and Bowel Bladder continence 0-Always continent Bowel continence 0-Always continent - Endurance Poor - Balance Poor - Safety Awareness Poor CURRENT FUNC. DEFICITS: Self-Care, Mobility, Endurance, Balance, and Safety Awareness SIGNATURE PANEL: (CDT)
== END 2020-01-24 14:00 | disposition home health service (06) | DRG 556 ==
LOC: 5TH 01-10 19:21
PROVIDERS: ADMIT Psychiatry & Neurology Neurology with Special Qualifications in Child Neurology; ATTEND Psychiatry & Neurology Neurology with Special Qualifications in Child Neurology
DX: M25.552 Pain in left hip (principal); Z88.6 Allergy status to analgesic agent; Z88.1 Allergy status to other antibiotic agents; Z88.5 Allergy status to narcotic agent; Z88.8 Allergy status to other drugs, medicaments and biological substances; I10 Essential (primary) hypertension; E11.9 Type 2 diabetes mellitus without complications; I25.10 Atherosclerotic heart disease of native coronary artery without angina pectoris; Z90.710 Acquired absence of both cervix and uterus; Z90.49 Acquired absence of other specified parts of digestive tract
CPT/HCPCS: 36415; 72192; 73700; 80048; 80053; 80061; 80076; 81003; 81015; 82040; 82550; 82947; 83036; 83735; 83880; 84134; 84484; 85025; 85610; 85730; 87077; 87086; 87088; 87186; 92523; 93005; 93306; 94660; 94760; 97110; 97112; 97116; 97124; 97161; 97530; 97542; 99285; G0378; J1940; J2270; J2405; J7030

== ENCOUNTER 2023-01-27 23:09 | Emergency (ER) | payer OTHER ==
--- OUTSIDE RECORDS SUMMARY | 2023-01-27 23:29 | XMS REPORT | Continuity of Care Document ---
:1940 Author Organization [facility] t Address [address] [facility] [address] [place] [address] Care Team Providers Name Role Phone LEROY PENALOZA Primary Care Physician Unavailable Criss Mckinney MD Attending Clinician CRISS MCKINNEY Attending Clinician Unavailable Ling_Astrid Attending Clinician Unavailable Villasana_T_DNU Attending Clinician Unavailable Beatrice_Theodora Attending Clinician Unavailable Steven CAST, Darío Attending Clinician Howie CAST, aMn Ponce Attending Clinician MICHELLE YEE Attending Clinician Unavailable KAREN HURST Attending Clinician Unavailable DES GEORGE Attending Clinician Unavailable Herve Attending Clinician Unavailable PETE KILGORE Attending Clinician Unavailable EARL GALINDO Attending Clinician Unavailable VEDA WOOTEN Attending Clinician Unavailable Physician, Non Associated Attending Clinician Unavailable Dorie Mcneill Attending Clinician CRISS MCKINNEY Admitting Clinician Unavailable Ling_Astrid Admitting Clinician Unavailable Federico_T_DNU Admitting Clinician Unavailable Bernstein_H Admitting Clinician Unavailable MAN DENISE Admitting Clinician Unavailable KAREN HURST Admitting Clinician Unavailable Abrshirlene_Luiz Admitting Clinician Unavailable EARL GALINDO Admitting Clinician Unavailable Payers Payer Name Policy Type Policy Number Effective Date Expiration Date Jose aviles [place]ICARE [place]: [id number] 2018 AdReady 00:00:00 WPS - FOR [id number] LIFE (MEDICARE SUPPLEMENT) Problems Condition Condition Condition Status Onset Resolution Last Treating Co mments Source Name Details Category Date Date Treatment Clinician Date Morbid Morbid Disease Active Univers obesity obesity 5-03 ity of 00:00: [place] [facility] Senile Senile Problem Active [facility] purpura Purpura 3-17 Family 00:00: Practic 00 e Stable Stable Problem Active [facility] angina Angina 3-17 Family 00:00: Practic 00 e 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, type 2, 00:00: Hospita insulin insulin 00 l dependent dependent Hypertensi Hypertensi Disease Active M ethodi ve ve 4-03 st disorder disorder 00:00: Hospit a 00 l Other Other Disease Active Methodi chest pain chest pain 2-04 st 00:00: Hospita 00 l 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 Neuropathy 00:00: Pr actic 00 e Open wound Open Wound Problem Active [facility] of lower of Lower 05-11 Family limb Limb 00:00: Practic 00 e Lymphedema Lymphedema Problem Active [facility] -20 Family 00:00: Practic 00 e Dystrophia Dystrophia Problem Active [facility] unguium Unguium -20 Family 00:00: Practic 00 e R16.0 - R16.0 - Diagnosis Active 2016-05-11 Memoria "HEPATOMEG "HEPATOMEG 03-20 12:55:00 l SOCORRO, NOT SOCORRO, NOT 00:01: Alan montes ELSEWHERE ELSEWHERE 00 CL" CL" Active 03/20/2016 MH OPID [facility] URINARY URINARY Diagnosis Active 2015-02-18 Memoria PROBLEMS PROBLEMS 08 18:24:00 l Active 00:00: Bruce 02/18/2015 00 [facility] Coronary Coronary Problem Active Ferrari ge arterioscl Arterioscl 6-07 Rebecca resendiz erosis in erosis in 00:00: Prac tic [place] 00 e artery Artery Congestive Congestive Problem Active [facility] heart Heart 02-17 Family failure Failure 00:00: Practic 00 e Peripheral Peripheral Problem Active [facility] arterial Arterial 02-17 Family occlusive Occlusive 00:00: Prac tic disease Disease 00 e CAD CAD Disease Active Univers (coronary (coronary 02-17 ity of artery artery 00:00: [place] disease) disease) 00 Medica l Branch Type 2 Type 2 Problem Active [facility] diabetes Diabetes 04-25 Family mellitus Mellitus 00:00: Practi c with with 00 e peripheral Peripheral angiopathy Angiopathy Hypothyroi Hypothyroi Problem Active [facility] dism dism 05-25 Family 00:00: Practic 00 e Polyneurop Polyneurop Problem Active [facility] athy due athy Due 05-22 Family to to 00:00: Practic diabetes Diabetes 00 e mellitus Mellitus Pure Pure Problem Active [facility] hyperchole Hyperchole 05-22 Rebecca resendiz sterolemia sterolemia 00:00: Pr actic 00 e Restless Restless Problem Active [facility] legs Legs 05-22 Family 00:00: Practic 00 e Benign Benign Problem Active [facility] essential Essential 05-22 Fami ly hypertensi Hypertensi 00:00: Pr actic on on 00 e Sleep Sleep Problem Active [facility] apnea Apnea 05-22 Family 00:00: Practic 00 e Pneumonia Pneumonia Problem Resolve 2016-04-04 Memoria (disorder) (disorder) d 00:53:24 l Resolved [place] Problem 04/04/2016 ELADIA [facility] Diabetes Diabetes Problem Active 2018-08-11 Memoria mellitus mellitus 03:05:59 l type II type II [place] Active Problem 08/11/2018 [facility] Angina Angina Problem Active 2018-08-11 William masoud pectoris pectoris 03:05:59 l NOS NOS Active Alan n Problem 08/11/2018 [facility] OBESITY OBESITY Problem Active 2018-08-11 Me moria NOS NOS Active 03:05:59 l Problem [place] 08/11/2018 [facility] Coronary Coronary Problem Active 2018-08-11 Memoria atheroscle atheroscle 03:05:59 l rosis of rosis of Alan n [place] vessel vessel Active Problem 08/11/2018 [facility] Cardiomyop Cardiomyo Problem Active 2018-08-11 Memoria athy NOS venkatesh NOS 03:05:59 l Active Bruce Problem 08/11/2018 [facility] Chest Chest Problem Active 2018-08-11 William masoud pain, pain, 03:05:59 l precordial precordial He rmann Active Problem 08/11/2018 [facility] Joint Joint Problem Active 2018-08-11 Memor ia pain, pain, 03:05:59 l unspecifie unspecifie He rmann d d Active Problem 08/11/2018 [facility] Morbid Morbid Problem Active 2018-08-11 William masoud obesity, obesity, 03:05:59 l unspecifie unspecifie He rmann d obesity d obesity type type Active Problem 08/11/2018 [facility] 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 Alan n Active Problem 08/11/2018 [facility] Atheroscle Atheroscl Problem Active 2018-08-11 Memoria rotic erotic 03:05:59 l heart heart Bruce disease of disease of [place] coronary coronary artery artery with with angina angina pectoris pectoris Active Problem 08/11/2018 [facility] Edema Edema Problem Active 2018-08-11 Memor ia Active 03:05:59 l Problem [place] 08/11/2018 [facility] Obesity Obesity Problem Active 2018-08-11 Me moria Active 03:05:59 l Problem Bruce 08/11/2018 [facility] Atheroscle Atheroscl Problem Active 2018-08-11 Memoria rotic erotic 03:05:59 l heart heart Bruce disease of disease of [place] coronary coronary artery artery without without angina angina pectoris pectoris Active Problem 08/11/2018 [facility] Venous Venous Problem Active 2018-08-11 William masoud insufficie insufficie 03:05:59 l ncy ncy Active Alan n Problem 08/11/2018 [facility] Hyperlipem Problem Active 2018-08-11 M emoria ia Hyperlipem 03:05:59 l ia Active [place] Problem 08/11/2018 [facility] Cardiac Cardiac Problem Active 2018-08-11 Me moria arrhythmia arrhythmia 03:05:59 l NOS NOS Active Alan n Problem 08/11/2018 [facility] ABN BLOOD ABN BLOOD Problem Active 2018-08-11 Memoria CHEMISTRY CHEMISTRY 03:05:59 l NEC NEC Active Alan n Problem 08/11/2018 [facility] Other Other Problem Active 2018-08-11 William masoud hyperlipid hyperlipid 03:05:59 l emia emia [place] Active Problem 08/11/2018 [facility] Shortness Shortness Problem Active 2018-08-11 Memoria of breath of breath 03:05:59 l Active Bruce Problem 08/11/2018 [facility] Encounter Encounter Problem Active 2018-08-11 Memoria for for 03:05:59 l preprocedu preprocedu He rmann ral ral cardiovasc cardiovasc ular ular examinatio examinatio n n Active Problem 08/11/2018 [facility] DM w/o DM w/o Problem Active 2018-08-11 William masoud complicati complicati 03:05:59 l on type II on type II He rmann Active Problem 08/11/2018 [facility] Cardiomyop Problem Active 2018-08-11 M emoria athy, Cardiomyop 03:05:59 l unspecifie athy, Alan n d unspecifie d Active Problem 08/11/2018 [facility] Morbid Morbid Problem Active 2018-08-11 William masoud obesity obesity 03:05:59 l Active [place] Problem 08/11/2018 [facility] Pain in Pain in Problem Active 2018-08-11 Me moria limb limb 03:05:59 l Active Bruce Problem 08/11/2018 [facility] Venous Venous Problem Active 2018-08-11 Mem oria (periphera (periphera 03:05:59 l l) l) [place] insufficie insufficie ncy, ncy, unspecifie unspecifie d d Active Problem 08/11/2018 [facility] Cellulitis Celluliti Problem Active 2018-08-11 Memoria leg s leg 03:05:59 l Active [place] Problem 08/11/2018 [facility] Urinary Urinary Problem Active 2018-08-11 Me moria Tract Tract 03:05:59 l Infection Infection Herm nia NOS NOS Active Problem 08/11/2018 [facility] ATH EXT ATH EXT Problem Active 2018-08-11 Me moria NTV AT W NTV AT W 03:05:59 l CLAUDCT CLAUDCT Bruce Active Problem 08/11/2018 [facility] Urinary Urinary Problem Active 2018-08-11 Me rohini frequency frequency 03:05:59 l Active [place] Problem 08/11/2018 [facility] Generalize Generaliz Problem Active 2018-08-11 Memoria d muscle ed muscle 03:05:59 l ache ache Bruce Active Problem 08/11/2018 [facility] Body mass Body mass Problem Active 2018-08-11 Memoria index index 03:05:59 l (BMI) of (BMI) of Alan n 50-59.9 in 50-59.9 in adult adult Active Problem 08/11/2018 [facility] Type 2 Type 2 Diagnosis Active 2016-03-04 Me moria diabetes diabetes 02:27:44 l mellitus mellitus Alan n without without complicati complicati ons ons Active Diagnosis 03/04/2016 [facility] History of Past Illness Condition Condition Condition Status Onset Resolution Last Treating Co mments Source Name Details Category Date Date Treatment Clinician Date Discharge Discharge Problem 2015-02-21 2015-02-21 Memoria Diagnosis: Diagnosis: 02-18 06:03:23 06:03:23 l CHF CHF 05:00: [place] (congestiv (congestiv 00 e heart e heart failure) failure) 02/18/2015 02/21/2015 [facility] Allergies, Adverse Reactions, Alerts Allergy Allergy Status Severity Reaction(s) Onset Inactive Treating Comm ents Source Name Type Date Date Clinician Doxycycl Drug Active Other - See Uni vers ine Allergy comments 01-13 ity of 00:00: [place] 00 Medical Branch DOXYCYCL DRUG Active Med Other-Cmnt Univ ers INE INGREDI 5 ity of 00:00: 00 Medical Branch OXYCODON DRUG Active N/V Univers E INGREDI - ity of 00:00: 00 Medical Branch Statins- Propensi Active Other (See Muscle Me thodi Hmg-Coa ty to Comments) [address] Reductas adverse 00:00: aches and Hosp rick e reaction 00 cramps l Inhibito s to rs drug Tramadol Propensi Active GI 2020-0 Nausea Method i ty to Intolerance 2-[address] adverse 00:00: vomiting. Hospit a reaction 00 Patient l s to states drug she can tolerate low dose Demerol (Meperidi ne) and tylenol for pain managemen t Cefazoli Propensi Active GI 2020-0 Nausea Method i n ty to Intolerance 2-[address] adverse 00:00: vomiting. Hospit a reaction 00 She l s to reports drug she can tolerate taken with zofran (Ondanset martha) Propoxyp Propensi Active GI 2020-0 Nausea Method i hene ty to Intolerance 2-[address] adverse 00:00: vomiting. Hospit a reaction 00 Patient l s to states drug she can tolerate low dose Demerol (Meperidi ne) and tylenol for pain managemen t Fentanyl Propensi Active GI 2020-0 Nausea Method i ty to Intolerance 2-[address] adverse 00:00: vomiting. Hospit a reaction 00 Patient l s to states drug she can tolerate low dose Demerol (Meperidi ne) and tylenol for pain managemen t Hydrocod Propensi Active GI 2019-0 Nausea Method i one ty to Intolerance 2-[address] adverse 00:00: vomiting. Hospit a reaction 00 Patient l s to states drug she can tolerate low dose Demerol (Meperidi ne) and tylenol for pain managemen t Oxycodon Propensi Active GI 2019-0 Nausea Method i e ty to Intolerance 2-[address] adverse 00:00: vomiting. Hospit a reaction 00 Patient l s to states drug she can tolerate low dose Demerol (Meperidi ne) and tylenol for pain managemen t STATINS- Drug Active Other-Cmnt 2020-0 Univ ers HMG-COA Class 2-04 ity of REDUCTAS 00:00: [place] E 00 Medical INHIBITO Branch RS Hydrocod Propensi Active Nausea 2020-0 Nausea Univer s one ty to and/or 2-04 and ity of adverse Vomiting 00:00: vomiting. Gulshana s reaction 00 Patient Medical s states Branch she can tolerate low dose Demerol (Meperidi ne) and tylenol for pain managemen t Oxycodon Propensi Active Nausea 2020-0 Nausea Univer s e ty to and/or 2-04 and ity of adverse Vomiting 00:00: [place]. [place] reaction 00 Patient Medical s states Branch she can tolerate low dose Demerol (Meperidi ne) and tylenol for pain managemen t Statins- Propensi Active Other - See Muscle U nivers Hmg-Coa ty to comments 2- pain and ity o f Reductas adverse 00:00: aches and [place] e reaction 00 cramps Medical Inhibito s Branch rs HYDROCOD DRUG Active N/V Univers ONE INGREDI 2-04 ity of 00:00: Medical Branch Iodine Propensi Active Other - See Possible U nivers ty to comments 09-30 allergy, ity of adverse 00:00: pt not [place] reaction 00 sure. Medical s Branch IODINE DRUG Active Other-Cmnt Univer s INGREDI 09-30 ity of 00:00: Medical Branch Codeine Propensi Active GI Nausea Methodi ty to Intolerance 09-[address] adverse 00:00: vomiting. Hospit a reaction 00 Patient l s to states drug she can tolerate low dose Demerol (Meperidi ne) and tylenol for pain managemen t Iodine Propensi Active Other (See Possible Me thodi ty to Comments) 09-30 allergy, st adverse 00:00: pt not Hospita reaction 00 sure. l s to drug Darvocet Darvocet Active Info Not William masoud Available 03-21 l 00:00: PROPOXYP DRUG Active N/V Univers HENE INGREDI 05-25 ity of 00:00: Medical Branch TRAMADOL DRUG Active N/V Univers INGREDI 12 ity of 00:00: Medical Branch Cefazoli Drug Active Nausea Nausea Univers n Allergy and/or 05-25 and ity of Vomiting 00:00: vomiting. She Medical reports Branch she can tolerate taken with zofran (Ondanset martha) Codeine Drug Active Nausea Nausea Univers Allergy and/or 05-25 and ity of Vomiting 00:00: vomiting. Patient Medical states Branch she can tolerate low dose Demerol (Meperidi ne) and tylenol for pain managemen t Fentanyl Drug Active Nausea Nausea Univers Allergy and/or 9-12 and ity of Vomiting 00:00: vomiting. [place] Patient Medical states Branch she can tolerate low dose Demerol (Meperidi ne) and tylenol for pain managemen t Propoxyp Drug Active Nausea Nausea Univers hene Allergy and/or 12 and ity of Vomiting 00:00: vomiting. [place] Patient Medical [employer] [facility] Branch she can tolerate low dose Demerol (Meperidi ne) and tylenol for pain managemen t Tramadol Drug Active Nausea Nausea Univers Allergy and/or 05-25 and ity of Vomiting 00:00: vomiting. [place] Patient Medical [employer] [facility] Branch she can tolerate low dose Demerol (Meperidi ne) and tylenol for pain managemen t CEFAZOLI DRUG Active N/V Univers N INGREDI 05-25 ity of 00:00: [place] [facility] CODEINE DRUG Active N/V Univers INGREDI 05-25 ity of 00:00: [place] [address] Medical Branch FENTANYL DRUG Active N/V Univers INGREDI 05-25 ity of 00:00: [place] [facility] ACETAMIN Allergy Active [place] OPHEN to -12 Family substanc 00:00: Practic e 00 e CEFAZOLI Allergy Active [place] N SODIUM to 12 Family substanc 00:00: Practic e 00 e Codeine Allergy Active 0 Village to -12 Family substanc 00:00: Practic e 00 e FENTANYL Allergy Active 0 Village to -12 Family substanc 00:00: Practic e 00 e PROPOXYP Allergy Active [place] HENE HCL to 12 Family substanc 00:00: Practic e 00 e PROPOXYP Allergy Active [place] HENE to -12 Family NAPSYLAT substanc 00:00: Practi c E e 00 e TRAMADOL Allergy Active [place] to -12 Family substanc 00:00: Practic e 00 e Doxycycl Allergy Active Moderate Abdominal Vi llage ine to pain Family substanc Practic e e Social History Social Habit Start Date Stop Date Quantity Comments Source Gender identity [facility] Sexual orientation Method ist Hospital Exposure to 2023-01-02 2023-01-12 Not sure University of SARS-CoV-2 (event) 00:00:00 23:49:00 [facility] History of Social 2022-06-13 2022-06-[address] function 00:00:00 00:00:00 Hospital Alcohol intake 2019-10-17 2019-10-17 Ex-drinker [facility] 00:00:00 00:00:00 (finding) Hospital Tobacco use and 2019-09-30 2019-09-30 Smokeless [facility] exposure 00:00:00 00:00:00 tobacco non-user Hospital Caffeine: 2016-08-17 2016-08-17 [facility] Haylee nn 00:00:00 00:00:00 Sex Ass[birth year] At [birth year] [facility] 00:00:[facility] 00:[facility]:00 Hospital Smoking Status Start Date Stop Date Source Tobacco smoking consumption Univ ers[facility] Social History [facility] Medications Ordered Filled Start Stop Current Ordering Indication Dosage Frequency Signature Comments Components Source Medication Medication Date Date Medication? Clinician (SIG) Name Name proMETHazin 2022- No 25mg 25 mg, IV Univers e 01-13 Piggyback, ity of (PHENERGAN) 09:30: 09:29 [place] in 00 :00 dose, On Medical NaCl 0.9% Wed01/13/23 Bran ch (NS) 50 mL at 0430, IV ANGELIKA piggyback ondansetron 2022- No 4mg 4 mg, Slow Univers (ZOFRAN 01-13 IV Push, ity of (PF)) 07:15: 07:05 ONCE, 1 [place] injection 4 00 :00 dose, On Medi vipul mg Wed01/13/23 Branch at 0215, ANGELIKA nitroglycer Yes .4mg 0.4 mg, Uni vers in 01-13 Sublingual ity of (NITROSTAT) 05:31: , Q5MIN Gulshan as sublingual 52 PRN, 3 Medical tablet 0.4 doses, Branch mg Starting on Wed01/13/23 at 0031, Until Discontinu ed, ANGELIKA, Chest pain ondansetron 2022- No 4mg 4 mg, Slow Univers (ZOFRAN 01-13 IV Push, ity of (PF)) 05:30: 06:01 ONCE, 1 [place] injection 4 00 :00 dose, On Medi vipul mg Wed01/13/23 Branch at 0030, ANGELIKA morpHINE (4 2022- No 4mg 4 mg, Slow Univers mg/mL) 5-03 05-03 IV Push, ity of injection 4 05:30: 06:02 ONCE, 1 [place] mg 00 :00 dose, On Medical Wed01/13/23 Branch at 0030, STAT alirocumab Yes 75mg inject 1 Uni vers (PRALUENT 5-03 mL under ity of PEN) 75 05:02: the skin [place] mg/mL PnIj 00 every 2 Medica l (two) Branch weeks. pramipexole Yes .5mg Take 1 Univ ers 0.5 mg 5-03 tablet by ity of tablet 05:02: mouth as [place] 00 needed for Medical Other. Branch Restless leg insulin Yes Sliding Univers lispro 5-03 scale ity of protamine-i 05:02: [place] nsulin 00 Medical lispro Branch (HUMALOG MIX 50-50 KWIKPEN) 100 unit/mL (50-50) injection insulin Yes 54U inject 54 Unive rs degludec 5-03 Units ity of (TRESIBA 05:02: under the [place] FLEXTOUCH 00 skin in Medical U-200) 200 the Branch unit/mL (3 morning. mL) InPn acetaminoph Yes 500mg Take 1 Uni vers en 500 mg 5-03 tablet by ity o f tablet 05:02: mouth. [place] 00 Medical Branch nitroglycer 0 2022- No as needed Univers in 0.4 mg 5-03 -03 for Chest ity of sublingual 05:02: 00:00 pain. [place] tablet 00 :00 Medical Branch nitroglycer Yes [id number] .4mg Place 1 Univers in 0.4 mg 5-03 tablet ity of sublingual 00:00: under the [place] tablet 00 tongue as Medical needed for Branch Chest pain. lidocaine 5 Yes [id number] 1{patch Apply 1 Univers % (700 5-03 } Patch to ity of mg/patch) 00:00: area(s) [place] patch 00 every 12 Medical (twelve) Branch hours as needed for Localized pain (12 hours on & 12 hours off). Nitrofurant 2022- Yes [id number] 100mg Take 1 Univers oin&Nit. 5-03 05-09 capsule by ity of Macroc[place] 00:00: 04:59 mouth in [place] 100 mg 00 :00 the Medical capsule morning Branch and 1 capsule in the evening. Do all this for 5 days. amiodarone Yes 200mg Take 1 Univ ers 200 mg 4-21 tablet by ity of tablet 00:00: mouth in [place] 00 the morning. Branch amiodarone amiodarone No amiodarone [place] 200 mg 200 mg 4-21 200 mg Family tablet tablet 00:00: tablet Practic 00 e amiodarone amiodarone No amiodarone [place] 200 mg 200 mg 4-21 200 mg Family tablet tablet 00:00: tablet Practic 00 e doxycycline 2021-09 Yes 100mg Q.5D Take 1 Met hodi (VIBRAMYCIN 0-[address] ) 100 MG 19:43: (100 mg Hospit a capsule 02 total) by l mouth 2 (two) times a day. donepezil 2021-09 Yes 10mg QD Take 10 mg Me thodi (ARICEPT) 0-[address] 10 MG 19:46: daily. Hospita tablet 16 l acetaminoph 2021-09 Yes 500mg Q6H Take 500 M ethodi en 0-[address] (TYLENOL) 19:46: mouth Hospita 500 MG 16 every 6 l tablet (six) hours as needed for mild pain or headaches. alirocumab 2021-09 Yes 75mg Q14D Inject 75 Me thodi (PRALUENT) 0-[address] 75 mg/mL 19:46: the skin Hospi ta pen 16 every 14 l injector (fourteen) subcutaneou days. s injection ergocalcife 2021-09 Yes [id number] Q.5W Take Meth gabino rol 0-01 50,000 st (VITAMIN 19:46: Units by Hospi ta D2) 50,000 16 mouth 2 l unit (two) capsule times a week. Every Wednesday and Wednesday insulin 2021-09 Yes 60U [id number] Inject 60 Methodi LISPRO 0-[id number] PROTAMIN-LI 19:46: 3D under the H ospita SPRO 16 skin 3 l (HUMALOG (three) 50-50) 100 times a unit/mL day before (50-50) meals. suspension subcutaneou s vial levothyroxi 2021-09 Yes 175ug QD Take 175 M ethodi ne 0-[address] (SYNTHROID) 19:46: mouth Hospi ta 175 mcg 16 daily. l tablet metoprolol 2021-09 Yes 25mg Q.5D Take 25 mg M ethodi succinate 0-[address] XL 19:46: (two) Hospita (TOPROL-XL) 16 times a l 25 mg 24 hr day. tablet amIODarone 2021-09 Yes 200mg QD Take 200 Me thodi (PACERONE) 0-[address] 200 MG 19:46: mouth Hospita tablet 16 daily. l pramipexole 2021-09 Yes .5mg QD Take 0.5 Me thodi (MIRAPEX) 0-[address] 0.5 MG 19:46: mouth Hospita tablet 16 nightly. l nystatin-tr 2021-09 Yes Q.5D Apply Metho di iamcinolone 0-[address] (MYCOLOG 19:46: 2 (two) Hospit a II) 16 times a l 100,000-0.1 day. unit/g-% cream nitroglycer 2021-[address] 0.4 M ethodi in 0-[address] (NITROSTAT) 19:46: the tongue Hospita 0.4 MG SL 16 every 5 l tablet (five) minutes as needed for chest pain. insulin 2021-09 Yes 40U QD Inject 40 Metho di degludec 0-[address] (TRESIBA) 19:46: under the Hos adriane 200 unit/mL 16 skin daily l (3 mL) with subcutaneou lunch. s pen Praluent Yes Aydin INJECT Memoria Pen - [place] 75MG l 02:04: SUBCUTANEO Bruce 51 USLY EVERY 2 WEEKS cranberry Yes Aydin not Memoria 7-19 [place] defined l 02:04: [place] 51 Vitamin 2017-0 Yes Aydin 1 tab(s) Memori a B-100 - [place] l 02:04: [place] 51 Tylenol 2018-0 Yes Aydin 1 tab(s) Memori a Caplet 7-19 [place] l Extra 02:04: [place] Strength 51 Mag-Ox 400 2018-0 Yes Aydin 3 tab(s) Mem oria 7-19 [place] l 02:04: [place] 51 Synthroid 2018-0 Yes Aydin 1 tab(s) William masoud 7-19 [place] l 02:04: [place] 51 donepezil 2018-0 Yes Aydin 1 tab(s) William masoud 7-19 [place] l 02:04: [place] 51 Tresiba 2018-0 Yes Aydin 55 units Memori a 7-19 [place] l 02:04: [place] 51 aspirin 2018-0 Yes Aydin 1 tab(s) Memori a 7-19 [place] l 02:04: [place] 51 propafenone 2018-0 Yes Aydin 1 tab(s) Me moria 7-19 [place] l 02:04: [place] 51 Nitrostat 2018-0 Yes Aydin DISSOLVE 1 Me moria 7-19 [place] TABLET l 02:04: UNDER THE Bruce 51 TONGUE EVERY 5 MINUTES DIRECTED clobetasol 2018-0 Yes Aydin 1 yoon Memori a topical 7-19 [place] l 02:04: [place] 51 Humalog Mix 2018-0 Yes Aydin 60 units Me moria 50/50 7-19 [place] l 02:04: [place] 51 pramipexole 2018-0 Yes Aydin 1 tab(s) Me moria 7-19 [place] l 02:04: [place] 51 Metoprolol 2018-0 Yes Aydin take 1 Memor ia Succinate 7-19 Areans tablet l ER 02:04: twice a Bruce 51 day Vitamin D 2018-0 Yes Aydin TAKE 1 Memori a 7-19 [place] CAPSULE BY l 02:04: MOUTH Bruce 51 TWICE A WEEK Praluent 2018-0 Yes Aydin INJECT Memoria Pen 7-19 [place] 75MG l 02:04: SUBCUTANEO Bruce 51 USLY EVERY 2 WEEKS Metoprolol 2018-0 Yes Aydin take 1 Memor ia Succinate 7-19 [place] tablet l ER 02:04: twice a [place] 51 day propafenone 2018-0 Yes Aydin 1 tab(s) Me moria 7-19 [place] l 02:04: [place] 51 cranberry 2018-0 Yes Aydin not Memoria 7-19 [place] defined l 02:04: [place] 51 aspirin 2018-0 Yes Aydin 1 tab(s) Memori a 7-19 [place] l 02:04: [place] 51 Vitamin 2018-0 Yes Aydin 1 tab(s) Memori a B-100 7-19 [place] l 02:04: [place] 51 Humalog Mix 2018-0 Yes Aydin 60 units Me moria 50/50 7-19 [place] l 02:04: [place] 51 Vitamin D 2018-0 Yes Aydin TAKE 1 Memori a 7-19 [place] CAPSULE BY l 02:04: MOUTH Bruce 50 TWICE A WEEK clobetasol 2018-0 Yes Aydin 1 yoon [facility] topical 7-19 [place] [facility] 02:04: Bruce Nitrostat 2017-0 Yes Aydin DISSOLVE 1 Me moria 7-19 [place] TABLET l 02:04: UNDER THE Bruce 51 TONGUE EVERY 5 MINUTES DIRECTED Tresiba 2017-0 Yes Aydin 55 units [facility] 7-19 [place] [facility] 02:04: Bruce 51 donepezil 2018-0 Yes Aydin 1 tab(s) William masoud 7-19 [place] l 02:04: Bruce 51 pramipexole 2018-0 Yes Aydin 1 tab(s) Me moria 7-19 [place] l 02:04: Bruce 51 Tylenol 2018-0 Yes Aydin 1 tab(s) [facility] Caplet 7-19 [place] [facility] Extra 02:04: Bruce Paulino 51 Synthroid 2018-0 Yes Aydin 1 tab(s) William masoud 7-19 [place] l 02:04: Bruce 51 Mag-Ox 400 2018-0 Yes Aydin 3 tab(s) [facility] 7-19 [place] l 02:04: Bruce 51 Praluent 2018-0 Yes Aydin INJECT [facility] Pen 7-19 [place] 75MG l 02:04: SUBCUTANEO Bruce 50 USLY EVERY 2 WEEKS Metoprolol 2018-0 Yes Aydin take 1 [facility] Succinate 7-19 [place] tablet l ER 02:04: twice a Bruce 51 day propafenone 2018-0 Yes Aydin 1 tab(s) Me moria 7-19 [place] l 02:04: Bruce 51 cranberry 2018-0 Yes Aydin not [facility] 7-19 [place] defined l 02:04: Bruce 51 aspirin 2018-0 Yes Aydin 1 tab(s) [facility] 7-19 [place] l 02:04: Bruce 51 Vitamin 2018-0 Yes Aydin 1 tab(s) [facility] B-100 7-19 [place] l 02:04: Bruce 51 Humalog Mix 2018-0 Yes Aydin 60 units Me moria 50/50 7-19 [place] 02:04: Bruce 51 Vitamin D 2018-0 Yes Aydin TAKE 1 [facility] 7-19 [place] CAPSULE BY l 02:04: MOUTH Bruce 51 TWICE A WEEK clobetasol 2018-0 Yes Aydin 1 yoon [facility] topical 7-19 [place] l 02:04: Bruce 51 Nitrostat 2018-0 Yes Aydin DISSOLVE 1 Me moria 7-19 [place] TABLET l 02:04: UNDER THE Bruce 51 TONGUE EVERY 5 MINUTES DIRECTED Tresiba 2018-0 Yes Aydin 55 units [facility] 7-19 [place] [facility] 02:04: Bruce 51 donepezil 2018-0 Yes Aydin 1 tab(s) William masoud 7-19 [place] l 02:04: Bruce 51 pramipexole 2018-0 Yes Aydin 1 tab(s) Me moria 7-19 [place] l 02:04: Bruce 51 Tylenol 2018-0 Yes Aydin 1 tab(s) [facility] Caplet 7-19 [place] [facility] Extra 02:04: Bruce [facility] 50 Synthroid 2018-0 Yes Aydin 1 tab(s) William masoud 7-19 [place] l 02:04: Bruce 51 Mag-Ox 400 2018-0 Yes Aydin 3 tab(s) [facility] 7-19 [place] l 02:04: Bruce 51 Praluent 2018-0 Yes Aydin INJECT [facility] Pen 7-19 [place] 75MG l 02:04: SUBCUTANEO Bruce 51 USLY EVERY 2 WEEKS Metoprolol 2018-0 Yes Aydin take 1 [facility] Succinate 7-19 [place] tablet l ER 02:04: twice a Bruce 51 day propafenone 2018-0 Yes Aydin 1 tab(s) Me moria 7-19 [place] l 02:04: Bruce 51 cranberry 2018-0 Yes Aydin not [facility] 7-19 [place] defined l 02:04: Bruce 51 aspirin 2018-0 Yes Aydin 1 tab(s) [facility] 7-19 [place] [facility] 02:04: [place] 51 Vitamin 2018-0 Yes Aydin 1 tab(s) [facility] B-100 7-19 [place] l 02:04: Bruce 51 Humalog Mix 2018-0 Yes Aydin 60 units Me moria 50/50 7-19 [place] l 02:04: Bruce 51 Vitamin D 2018-0 Yes Aydin TAKE 1 [facility] -19 [place] CAPSULE BY l 02:04: MOUTH Bruce 51 TWICE A WEEK clobetasol 2018-0 Yes Aydin 1 yoon [facility] topical - [place] [facility] 02:04: Bruce 51 Nitrostat 2018-0 Yes Aydin DISSOLVE 1 Me moria 7- [place] TABLET l 02:04: UNDER THE Bruce 51 TONGUE EVERY 5 MINUTES DIRECTED Tresiba 2018-0 Yes Aydin 55 units [facility] - [place] [facility] 02:04: Bruce 51 donepezil 2018-0 Yes Aydin 1 tab(s) William masoud 7-19 [place] l 02:04: Bruce 51 pramipexole 2018-0 Yes Aydin 1 tab(s) Me moria 7-19 [place] l 02:04: Bruce 51 Tylenol 2018-0 Yes Aydin 1 tab(s) [facility] Caplet - [place] [facility] Extra 02:04: Bruce Strength 51 Synthroid 2018-0 Yes Aydin 1 tab(s) William masoud 7-19 [place] l 02:04: Bruce 51 Mag-Ox 400 2018-0 Yes Aydin 3 tab(s) [facility] 7-19 [place] l 02:04: Bruce 51 Praluent 2018-0 Yes Aydin INJECT [facility] Pen 7- [place] 75MG l 02:04: SUBCUTANEO Bruce 51 USLY EVERY 2 WEEKS Metoprolol 2018-0 Yes Aydin take 1 [facility] Succinate 7-19 [place] tablet l ER 02:04: twice a [place] 51 day propafenone 2018-0 Yes Aydin 1 tab(s) Me moria 7-19 [place] l 02:04: Bruce 51 cranberry 2018-0 Yes Aydin not [facility] 7-19 [place] defined l 02:04: Bruce 51 aspirin 2018-0 Yes Aydin 1 tab(s) [facility] 7-19 [place] l 02:04: Bruce 51 Vitamin 2018-0 Yes Aydin 1 tab(s) [facility] B-100 7-19 [place] l 02:04: Bruce 51 Humalog Mix 2018-0 Yes Aydin 60 units Me moria 50/50 7-19 [place] l 02:04: Bruce 51 Vitamin D 2018-0 Yes Aydin TAKE 1 [facility] 7-19 [place] CAPSULE BY l 02:04: MOUTH Bruce 51 TWICE A WEEK clobetasol 2018-0 Yes Aydin 1 yoon [facility] topical 7-19 [place] l 02:04: Bruce 51 Nitrostat 2018-0 Yes Aydin DISSOLVE 1 Me moria 7-19 [place] TABLET l 02:04: UNDER THE Bruce 51 TONGUE EVERY 5 MINUTES DIRECTED Tresiba 2018-0 Yes Aydin 55 units [facility] 7-19 [place] l 02:04: Bruce Garcia donepezil 2018-0 Yes Aydin 1 tab(s) William masoud 7-19 [place] l 02:04: Bruce 51 pramipexole 2018-0 Yes Aydin 1 tab(s) Me moria 7-19 [place] l 02:04: Bruce 51 Tylenol 2018-0 Yes Aydin 1 tab(s) [facility] Caplet 7-19 [place] [facility] Extra 02:04: Bruce Paulino 51 Synthroid 2018-0 Yes Aydin 1 tab(s) William masoud 7-19 [place] l 02:04: Bruce Garcia Mag-Ox 400 2018-0 Yes Aydin 3 tab(s) [facility] 7-19 [place] l 02:04: Bruce 51 Bactrim DS 2018-0 Yes Aydin 1 tab(s) [facility] 7-09 [place] [facility] 00:00: Bactrim DS 2018-0 Yes Aydin 1 tab(s) [facility] 7-09 [place] [facility] 00:00: Bactrim DS 2018-0 Yes Aydin 1 tab(s) [facility] 7-09 [place] [facility] 00:00: Bactrim DS 2018-0 Yes Aydin 1 tab(s) [facility] 7-09 [place] [facility] 00:00: Bactrim DS 2018-0 Yes Aydin 1 tab(s) [facility] 7-09 [place] [facility] 00:00: clopidogrel 2018-0 Yes Aydin 1 tab(s) Me moria 2-12 [place] [facility] 00:00: clopidogrel 2018-0 Yes Aydin 1 tab(s) Me moria 2-12 [place] [facility] 00:00: clopidogrel 2018-0 Yes Aydin 1 tab(s) Me moria 2-12 [place] l 00:00: clopidogrel 2018-0 Yes Aydin 1 tab(s) Me moria 2-12 [place] [facility] 00:00: clopidogrel 2018-0 Yes Aydin 1 tab(s) Me moria 2-12 [place] [facility] 00:00: Toujeo 2017 Yes Aydin inj [facility] 1-18 [place] [facility] 03:01: furosemide 2016-09 Yes Aydin 1 tab(s) [facility] 1-18 [place] l 03:01: Klor-Con 2016-09 Yes Aydin 1 tab(s) [facility] 1-18 [place] l 03:01: Mag-Ox 400 2016-09 Yes Aydin 3 tab(s) [facility] 1-18 [place] l 03:01: propafenone 2016-09 Yes Aydin 1 tab(s) Me moria 1-18 [place] l 03:01: Toujeo 2016-09 Yes Aydin inj [facility] 1-18 [place] l 03:01: Bruce 45 furosemide 2016-09 Yes Aydin 1 tab(s) [facility] 1-18 [place] l 03:01: Klor-Con 2016-09 Yes Aydin 1 tab(s) [facility] 1-18 [place] l 03:01: Mag-Ox 400 2016-09 Yes Aydin 3 tab(s) [facility] 1-18 [place] l 03:01: propafenone 2016-09 Yes Aydin 1 tab(s) Me moria 1-18 [place] l 03:01: Toujeo 2016-09 Yes Aydin inj [facility] 1-18 [place] [facility] 03:01: furosemide 2016-09 Yes Aydin 1 tab(s) [facility] 1-18 [place] l 03:01: [place] 46 Klor-Con 2016-09 Yes Aydin 1 tab(s) [facility] 1-18 [place] [facility] 03:01: Mag-Ox 400 2016-09 Yes Aydin 3 tab(s) [facility] 1-18 [place] l 03:01: Bruce 46 propafenone 2016-09 Yes Aydin 1 tab(s) Me moria 1-18 [place] l 03:01: Bruce 46 Toujeo 2016-09 Yes Aydin inj [facility] 1-18 [place] [facility] 03:01: Bruce 46 furosemide 2016-09 Yes Aydin 1 tab(s) [facility] 1-18 [place] l 03:01: Bruce 46 Klor-Con 2016-09 Yes Aydin 1 tab(s) [facility] 1-18 [place] l 03:01: Bruce 46 Mag-Ox 400 2016-09 Yes Aydin 3 tab(s) [facility] 1-18 [place] l 03:01: Bruce 46 propafenone 2016-09 Yes Aydin 1 tab(s) Me moria 1-18 [place] l 03:01: Bruce 46 Toujeo 2016-09 Yes Aydin inj [facility] 1-18 [place] l 03:01: Bruce 46 furosemide 2016-09 Yes Aydin 1 tab(s) [facility] 1-18 [place] l 03:01: Klor-Con 2016-09 Yes Aydin 1 tab(s) [facility] 1-18 [place] l 03:01: [place] 46 Mag-Ox 400 2016-09 Yes Aydin 3 tab(s) [facility] 1-18 [place] l 03:01: propafenone 2016-09 Yes Aydin 1 tab(s) Me moria 1-18 [place] l 03:01: [place] 46 pramipexole Yes Aydin 1 tab(s) Me moria 6-30 [place] l 02:02: Klor-Con Yes Aydin 1 tab(s) [facility] 6-30 [place] l 02:02: propafenone Yes Aydin 1 tab(s) Me moria 6-30 [place] l 02:02: [place] 30 Synthroid Yes Aydin 1 tab(s) William masoud 6-30 [place] l 02:02: [place] 30 Vitamin D Yes Aydin TAKE 1 [facility] 6-30 [place] CAPSULE BY l 02:02: MOUTH Bruce 30 TWICE A WEEK furosemide Yes Aydin 1 tab(s) [facility] 6-30 [place] l 02:02: Mag-Ox 400 Yes Aydin 3 tab(s) [facility] 6-30 [place] [facility] 02:02: Humalog Mix Yes Aydin 60 units Me moria 50/50 6-30 [place] l 02:02: aspirin Yes Aydin 1 tab(s) [facility] 6-30 [place] l 02:02: clobetasol Yes Aydin 1 yoon [facility] topical 6-30 [place] l 02:02: Praluent Yes Aydin INJECT [facility] Pen 6-30 [place] 75MG l 02:02: SUBCUTANEO USLY EVERY 2 WEEKS cranberry Yes Aydin not [facility] 6-30 [place] defined l 02:02: donepezil Yes Aydin 1 tab(s) William masoud 6-30 [place] l 02:02: Tylenol Yes Aydin 1 tab(s) [facility] Caplet 6-30 [place] [facility] Extra 02:02: Bruce 30 Metoprolol Yes Aydin take 1 [facility] Succinate 6-30 [place] tablet l ER 02:02: twice a 30 day Vitamin Yes Aydin 1 tab(s) [facility] B-100 6-30 [place] l 02:02: Nitrostat Yes Aydin 1 tab(s) William masoud 6-30 [place] l 02:02: pramipexole Yes Aydin 1 tab(s) Me moria 6-30 [place] l 02:02: Klor-Con Yes Aydin 1 tab(s) [facility] 6-30 [place] l 02:02: propafenone Yes Aydin 1 tab(s) Me moria 6-30 [place] l 02:02: Synthroid Yes Aydin 1 tab(s) William masoud 6-30 [place] l 02:02: Vitamin D Yes Aydin TAKE 1 [facility] 6-30 [place] CAPSULE BY l 02:02: MOUTH 30 TWICE A WEEK furosemide Yes Aydin 1 tab(s) [facility] 6-30 [place] l 02:02: Mag-Ox 400 Yes Aydin 3 tab(s) [facility] 6-30 [place] [facility] 02:02: Humalog Mix Yes Yadin 60 units Me moria 50/50 6-30 [place] l 02:02: aspirin Yes Aydin 1 tab(s) [facility] 6-30 [place] [facility] 02:02: clobetasol Yes Aydin 1 yoon [facility] topical 6-30 [place] l 02:02: Praluent Yes Aydin INJECT [facility] Pen 6-30 [place] 75MG l 02:02: SUBCUTANEO USLY EVERY 2 WEEKS cranberry Yes Aydin not [facility] 6-30 [place] defined l 02:02: donepezil Yes Aydin 1 tab(s) William masoud 6-30 [place] l 02:02: Tylenol Yes Aydin 1 tab(s) [facility] Caplet 6-30 [place] [facility] Extra 02:02: 30 Metoprolol Yes Ayidn take 1 [facility] Succinate 6-30 [place] tablet l ER 02:02: twice a 30 day Vitamin Yes Aydin 1 tab(s) [facility] B-100 6-30 [place] l 02:02: Nitrostat Yes Aydin 1 tab(s) William masoud 6-30 [place] l 02:02: pramipexole Yes Aydin 1 tab(s) Me moria 6-30 [place] l 02:02: Klor-Con Yes Aydin 1 tab(s) [facility] 6-30 [place] [facility] 02:02: 30 propafenone Yes Aydin 1 tab(s) Me moria 6-30 [place] l 02:02: 30 Synthroid Yes Aydin 1 tab(s) William masoud 6-30 [place] l 02:02: 30 Vitamin D Yes Aydin TAKE 1 [facility] 6-30 [place] CAPSULE BY l 02:02: MOUTH 30 TWICE A WEEK furosemide Yes Aydin 1 tab(s) [facility] 6-30 [place] [facility] 02:02: Mag-Ox 400 Yes Aydin 3 tab(s) [facility] 6-30 [place] l 02:02: 30 Humalog Mix Yes Aydin 60 units Me moria 50/50 6-30 [place] l 02:02: 30 aspirin Yes Aydin 1 tab(s) [facility] 6-30 [place] [facility] 02:02: clobetasol Yes Aydin 1 yoon [facility] topical 6-30 [place] l 02:02: 30 Praluent Yes Aydin INJECT [facility] Pen 6-30 [place] 75MG l 02:02: SUBCUTANEO 30 USLY EVERY 2 WEEKS cranberry Yes Aydin not [facility] 6-30 [place] defined l 02:02: 30 donepezil Yes Aydin 1 tab(s) William masoud 6-30 [place] l 02:02: 30 Tylenol Yes Aydin 1 tab(s) [facility] Caplet 6-30 [place] [facility] Extra 02:02: [place] 30 Metoprolol Yes Aydin take 1 [facility] Succinate 6-30 [place] tablet l ER 02:02: twice a 30 day Vitamin Yes Aydin 1 tab(s) [facility] B-100 6-30 [place] l 02:02: 30 Nitrostat Yes Aydin 1 tab(s) William masoud 6-30 [place] l 02:02: 30 Praluent Yes Aydin INJECT [facility] Pen 6-30 [place] 75MG l 02:02: SUBCUTANEO Bruce 30 USLY EVERY 2 WEEKS cranberry Yes Aydin not [facility] 6-30 [place] defined l 02:02: donepezil Yes Aydin 1 tab(s) William masoud 6-30 [place] l 02:02: Tylenol Yes Aydin 1 tab(s) [facility] Caplet 6-30 [place] [facility] Extra 02:02: Metoprolol Yes Aydin take 1 [facility] Succinate 6-30 [place] tablet l ER 02:02: twice a 30 day Vitamin Yes Aydin 1 tab(s) [facility] B-100 6-30 [place] l 02:02: Nitrostat Yes Aydin 1 tab(s) William masoud 6-30 [place] l 02:02: pramipexole Yes Aydin 1 tab(s) Me moria 6-30 [place] l 02:02: Klor-Con Yes Aydin 1 tab(s) [facility] 6-30 [place] l 02:02: propafenone Yes Aydin 1 tab(s) Me moria 6-30 [place] l 02:02: Synthroid Yes Aydin 1 tab(s) William masoud 6-30 [place] l 02:02: Vitamin D Yes Aydin TAKE 1 [facility] 6-30 [place] CAPSULE BY l 02:02: MOUTH TWICE A WEEK furosemide Yes Aydin 1 tab(s) [facility] 6-30 [place] l 02:02: Mag-Ox 400 Yes Aydin 3 tab(s) [facility] 6-30 [place] [facility] 02:02: Humalog Mix Yes Aydin 60 units Me moria 50/50 6-30 [place] l 02:02: aspirin Yes Aydin 1 tab(s) [facility] 6-30 [place] [facility] 02:02: clobetasol Yes Aydin 1 yoon [facility] topical 6-30 [place] l 02:02: Praluent Yes Aydin INJECT [facility] Pen 6-30 [place] 75MG l 02:02: SUBCUTANEO 30 USLY EVERY 2 WEEKS cranberry 2017 Yes Aydin not [facility] 6-30 [place] defined l 02:02: donepezil [id number] Yes Aydin 1 tab(s) William masoud 6-30 [place] l 02:02: Tylenol Yes Aydin 1 tab(s) [facility] Caplet 6-30 [place] [facility] Extra 02:02: 30 Metoprolol Yes Aydin take 1 [facility] Succinate 6-30 [place] tablet l ER 02:02: twice a 30 day Vitamin 2017 Yes Aydin 1 tab(s) [facility] B-100 6-30 [place] l 02:02: Nitrostat Yes Aydin 1 tab(s) William masoud 6-30 [place] l 02:02: pramipexole Yes Aydin 1 tab(s) Me moria 6-30 [place] l 02:02: Klor-Con Yes Aydin 1 tab(s) [facility] 6-30 [place] l 02:02: propafenone Yes Aydin 1 tab(s) Me moria 6-30 [place] l 02:02: Synthroid Yes Aydin 1 tab(s) William masoud 6-30 [place] l 02:02: Vitamin D Yes Aydin TAKE 1 [facility] 6-30 [place] CAPSULE BY l 02:02: MOUTH 30 TWICE A WEEK furosemide 2017 Yes Aydin 1 tab(s) [facility] 6-30 [place] [facility] 02:02: Mag-Ox 400 Yes Aydin 3 tab(s) [facility] 6-30 [place] [facility] 02:02: Humalog Mix Yes Aydin 60 units Me moria 50/50 6-30 [place] [facility] 02:02: aspirin Yes Aydin 1 tab(s) [facility] 6-30 [place] [facility] 02:02: clobetasol Yes Aydin 1 yoon [facility] topical 6-30 [place] [facility] 02:02: NovoLog 2015-09 Yes Aydin 50/50 [facility] 2-30 [place] [facility] 03:14: Brucealog 2015-09 Yes Aydin 0 [facility] 2-30 [place] [facility] 03:14: o 2015-09 Yes Aydin inj [facility] 2-30 [place] [facility] 03:14: Log 2015-09 Yes Aydin 50/50 [facility] 2-30 [place] [facility] 03:14: alog 2015-09 Yes Aydin 0 [facility] 2-30 [place] [facility] 03:14: o 2015-09 Yes Aydin inj [facility] 2-30 [place] [facility] 03:14: Log 2015-09 Yes Aydin 50/50 [facility] 2-30 [place] [facility] 03:14: 2015-09 Yes Aydin 0 [facility] 2-30 [place] [facility] 03:14: o 2015-09 Yes Aydin inj [facility] 2-30 [place] [facility] 03:14: Bruce 25 NovoLog 2015-09 Yes Aydin 50/50 [facility] 2-30 [place] [facility] 03:14: Bruce2015-09 Yes Aydin 0 [facility] 2-30 [place] l 03:14: 2015-09 Yes Aydin inj [facility] 2-30 [place] [facility] 03:14: Log 2015-09 Yes Aydin 50/50 [facility] 2-30 [place] [facility] 03:14: Bruce alog 2015-09 Yes Aydin 0 [facility] 2-30 [place] [facility] 03:14: Bruce2015-09 Yes Aydin inj [facility] 2-30 [place] [facility] 03:14: Bruce or-Con 2015-09 Yes Aydin 1 tab(s) [facility] M20 1-08 [place] l 03:23: Bruce exa 2015-09 Yes Aydin TAKE 1 [facility] 1-08 [place] TABLET l 03:23: TWICE A [place] Klor-Con 2015-09 Yes Aydin 1 tab(s) [facility] M20 1-08 [place] l 03:23: Bruce exa 2015-09 Yes Aydin TAKE 1 [facility] 1-08 [place] TABLET l 03:23: TWICE A 49 DAY Klor-Con 2015-09 Yes Aydin 1 tab(s) [facility] M20 1-08 [place] l 03:23: 49 Ranexa 2015-09 Yes Aydin TAKE 1 [facility] 1-08 [place] TABLET l 03:23: TWICE A 49 DAY Klor-Con 2015-09 Yes Yadin 1 tab(s) [facility] M20 1-08 [place] l 03:23: 49 Ranexa 2015-09 Yes Aydin TAKE 1 [facility] 1-08 [place] TABLET l 03:23: TWICE A 49 DAY Klor-Con 2015-09 Yes Aydin 1 tab(s) [facility] M20 1-08 [place] l 03:23: 49 Ranexa 2015-09 Yes Aydin TAKE 1 [facility] 1-08 [place] TABLET l 03:23: TWICE A 49 DAY Praluent 2015-09 Yes Aydin 75 mg [facility] Pen 0-05 [place] l 00:00: Praluent 2015-09 Yes Aydin 75 mg [facility] Pen 0-05 [place] l 00:00: Praluent 2015-09 Yes Aydin 75 mg [facility] Pen 0-05 [place] l 00:00: Praluent 2015-09 Yes Aydin 75 mg [facility] Pen 0-05 [place] l 00:00: Praluent 2015-09 Yes Aydin 75 mg [facility] Pen 0-05 [place] l 00:00: Tylenol 0 Yes Aydin 2 tab(s) [facility] 6-22 [place] l 02:31: Tylenol 2016-0 Yes Aydin 2 tab(s) [facility] 6-22 [place] l 02:31: Tylenol 2015-0 Yes Aydin 2 tab(s) [facility] 6-22 [place] l 02:31: Tylenol 2015-0 Yes Aydin 2 tab(s) [facility] 6-22 [place] l 02:31: Tylenol 2015-0 Yes Aydin 2 tab(s) [facility] 6-22 [place] l 02:31: 43 Detrol LA Yes Aydin 1 cap(s) William masoud 6-22 [place] l 02:27: Detrol LA 2016-0 Yes Aydin 1 cap(s) William masoud 6-22 [place] l 02:27: Detrol LA 2016-0 Yes Aydin 1 cap(s) William masoud 6-22 [place] l 02:27: Detrol LA 2016-0 Yes Aydin 1 cap(s) William masoud 6-22 [place] l 02:27: Detrol LA 2016-0 Yes Aydin 1 cap(s) William masoud 6-22 [place] l 02:27: Crestor 2016-0 Yes Aydin 1 tab(s) [facility] 6-01 [place] [facility] 00:00: Crestor 2016-0 Yes Aydin 1 tab(s) [facility] 6-01 [place] [facility] 00:00: Crestor 2016-0 Yes Aydin 1 tab(s) [facility] 6-01 [place] [facility] 00:00: Crestor 2016-0 Yes Aydin 1 tab(s) [facility] 6- [place] [facility] 00:00: Crestor 2016-0 Yes Aydin 1 tab(s) [facility] 6-01 [place] [facility] 00:00: Vitamin D 2016-0 Yes Aydin 1 tab(s) William masoud 3-29 [place] [facility] 00:00: Vitamin D 2016-0 Yes Aydin 1 tab(s) William masoud 3-29 [place] [facility] 00:00: Vitamin D 2016-0 Yes Aydin 1 tab(s) William masoud 3-29 [place] [facility] 00:00: Vitamin D 2016-0 Yes Aydin 1 tab(s) William masoud 3-29 [place] [facility] 00:00: Vitamin D 2016-0 Yes Aydin 1 tab(s) William masoud 3-29 [place] [facility] 00:00: Vitamin D 2016-0 Yes Aydin 1 tab(s) William masoud 3-29 [place] [facility] 00:00: Vitamin D 2016-0 Yes Aydin 1 tab(s) William masoud 3-29 [place] [facility] 00:00: Vitamin D 2016-0 Yes Aydin 1 tab(s) William masoud 3-29 [place] [facility] 00:00: Vitamin D 2016-0 Yes Aydin 1 tab(s) William masoud 3-29 [place] [facility] 00:00: Bruce 00 Vitamin D 2016-0 Yes Aydin 1 tab(s) William masoud 3-29 [place] [facility] 00:00: [place] 00 Ranexa 2016-0 No Aydin 1 tab(s) [facility] 2-03 [place] [facility] 00:00: Ranexa 2016-0 No Aydin 1 tab(s) [facility] 2-03 [place] [facility] 00:00: Ranexa 2016-0 No Aydin 1 tab(s) [facility] 2-03 [place] [facility] 00:00: Ranexa 2016-0 No Aydin 1 tab(s) [facility] 2-03 [place] [facility] 00:00: Ranexa 2016-0 No Aydin 1 tab(s) [facility] 2-03 [place] [facility] 00:00: Furosemide 2015-0 No 20 mg, [facility] ia 02-19 Route: l 00:46: IVP, Drug Bruce 00 form: INJ, ONCE, kg, Priority: STAT, Start date: 02/18/15 19:46:00, Stop date: 02/18/15 19:46:00 Furosemide 2014-0 No 20 mg, [facility] 02-19 Route: l 00:46: IVP, Drug Bruce 00 form: INJ, ONCE, kg, Priority: STAT, Start date: 02/18/15 19:46:00, Stop date: 02/18/15 19:46:00 Furosemide 2014-0 No 20 mg, [facility] 02-19 Route: l 00:46: IVP, Drug [place] 00 form: INJ, ONCE, kg, Priority: STAT, Start date: 02/18/15 19:46:00, Stop date: 02/18/15 19:46:00 Furosemide 2014-0 No 20 mg, [facility] 02-19 Route: l 00:46: IVP, Drug [place] 00 form: INJ, ONCE, kg, Priority: STAT, Start date: 02/18/15 19:46:00, Stop date: 02/18/15 19:46:00 Furosemide 2014-0 No 20 mg, [facility] 02-19 Route: l 00:46: IVP, Drug [place] 00 form: INJ, ONCE, kg, Priority: STAT, Start date: 02/18/15 19:46:00, Stop date: 02/18/15 19:46:00 Lantus Yes Aydin 25 units [facility] 9-15 [place] l 03:23: Bruce 25 Xolegel Yes Aydin 1 yoon [facility] 9-15 [place] [facility] 03:23: Bruce Lantus Yes Aydin 25 units [facility] 9-15 [place] l 03:23: [place] 25 Xolegel Yes Aydin 1 yoon [facility] 9-15 [place] l 03:23: Bruce 25 Lantus Yes Aydin 25 units [facility] 9-15 [place] [facility] 03:23: Bruce 25 Xolegel Yes Aydin 1 yoon [facility] 9-15 [place] [facility] 03:23: Bruce 25 Lantus Yes Aydin 25 units [facility] 9-15 [place] [facility] 03:23: [place] 25 Xolegel Yes Aydin 1 yoon [facility] 9-15 [place] l 03:23: Bruce 25 Lantus Yes Aydin 25 units [facility] 9-15 [place] [facility] 03:23: [place] 25 Xolegel Yes Aydin 1 yoon [facility] 9-15 [place] l 03:23: [place] 25 Vitamin D Yes Aydin 1 tab(s) William masoud 8-18 [place] [facility] 00:00: Vitamin D 0 Yes Aydin 1 tab(s) William masoud 8-18 [place] [facility] 00:00: Vitamin D 0 Yes Aydin 1 tab(s) William masoud 8-18 [place] [facility] 00:00: Vitamin D 0 Yes Aydin 1 tab(s) William masoud 8-18 [place] [facility] 00:00: Vitamin D 0 Yes Aydin 1 tab(s) William masoud 8-18 [place] [facility] 00:00: Aricept Yes Aydin 1 tab(s) [facility] 4-12 [place] [facility] 03:53: Mirapex Yes Aydin 1 tab(s) [facility] 4-12 [place] l 03:53: Bruce 12 Aricept 2013-0 Yes Aydin 1 tab(s) [facility] 4-12 [place] l 03:53: Mirapex 2013-0 Yes Aydin 1 tab(s) [facility] 4-12 [place] l 03:53: Aricept 2013-0 Yes Aydin 1 tab(s) [facility] 4-12 [place] l 03:53: Mirapex 2013-0 Yes Aydin 1 tab(s) [facility] 4-12 [place] l 03:53: Aricept 0 Yes Aydin 1 tab(s) [facility] 4-12 [place] [facility] 03:53: Mirapex 2013-0 Yes Aydin 1 tab(s) [facility] 4-12 [place] [facility] 03:53: Aricept 0 Yes Aydin 1 tab(s) [facility] 4-12 [place] [facility] 03:53: Mirapex 0 Yes Aydin 1 tab(s) [facility] 4-12 [place] [facility] 03:53: Vitamin D 2013-0 Yes Aydin 1 tab(s) [facility] masoud 3-31 [place] [facility] 00:00: Vitamin D 2013-0 Yes Aydin 1 tab(s) William masoud 3-31 [place] [facility] 00:00: Vitamin D 2013-0 Yes Aydin 1 tab(s) William masoud 3-31 [place] [facility] 00:00: Vitamin D 2013-0 Yes A[place]in 1 tab(s) William masoud 3-31 [place] [facility] 00:00: Vitamin D 2013-0 Yes Aydin 1 tab(s) William masoud 3-31 [place] [facility] 00:00: Imdur 2013-0 Yes A[facility]in 1 tab(s) [facility] 3-26 [place] [facility] 00:00: Imdur 2013-0 Yes [facility] 1 tab(s) [facility] 3-26 [place] [facility] 00:00: Imdur 2013-0 Yes [facility] 1 tab(s) [facility] 3-26 [place] [facility] 00:00: Imdur 2013-0 Yes Aydin 1 tab(s) [facility] 3-26 [place] [facility] 00:00: Imdur 2013-0 Yes [facility] 1 tab(s) [facility] 3-26 [place] [facility] 00:00: Crestor 2012-09 Yes Aydin 1 tab(s) [facility] a 1-09 [place] l 04:51: Crestor 2012-09 Yes Aydin 1 tab(s) [facility] a 1-09 [place] [facility] 04:51: Crestor 2012-09 Yes Aydin 1 tab(s) [facility] a 1-09 [place] [facility] 04:51: Crestor 2012-09 Yes A[facility] 1 tab(s) [facility] a 1-09 [place] [facility] 04:51: Crestor 2012-09 Yes A[facility] 1 tab(s) [facility] a 1-09 [place] [facility] 04:51: Lipitor 2012-09 Yes [facility]in 1 tab(s) [facility] 0-01 [place] [facility] 00:00: Antara 2012-09 No Aydin 1 cap(s) [facility] 0-01 [place] [facility] 00:00: Lipitor 2012-09 Yes A[facility]in 1 tab(s) [facility] a 0-01 [place] [facility] 00:00: Antara 2012-09 No [facility]in 1 cap(s) [facility] 0-01 [place] [facility] 00:00: Antara 2012-09 No [facility] 1 cap(s) [facility] 0-01 [place] [facility] 00:00: Lipitor 2012-09 Yes Aydin 1 tab(s) [facility] 0-01 [place] [facility] 00:00: Lipitor 2012-09 Yes [facility] 1 tab(s) [facility] 0-01 [place] [facility] 00:00: Antara 2012-09 No [facility] 1 cap(s) [facility] 0-01 [place] [facility] 00:00: Lipitor 2012-09 Yes [facility] 1 tab(s) [facility] 0-01 [place] [facility] 00:00: Antara 2012-09 No [facility]in 1 cap(s) [facility] 0-01 [place] [facility] 00:00: Lasix Yes Aydin 1 tab(s) [facility] 4-11 [place] [facility] 00:00: Lasix 2013-0 Yes A[facility]in 1 tab(s) [facility] 4-11 [place] [facility] 00:00: [place] 00 Lasix 2012-0 Yes Aydin 1 tab(s) [facility] 4-11 [place] [facility] 00:00: [place] 00 Lasix 2012-0 Yes Aydin 1 tab(s) [facility] 4-11 [place] [facility] 00:00: [place] 00 Lasix 2012-0 Yes Aydin 1 tab(s) [facility] 4-11 [place] [facility] 00:00: [place] 00 Plavix 0 Yes A[facility] 1 tab(s) [facility] 1-25 [place] [facility] 00:00: [place] 00 Plavix 0 Yes A[facility] 1 tab(s) [facility] 1-25 [place] [facility] 00:00: [place] 00 Plavix 0 Yes [facility] 1 tab(s) [facility] 1-25 [place] [facility] 00:00: [place] 00 Plavix 0 Yes [facility] 1 tab(s) [facility] 1-25 [place] [facility] 00:00: [place] 00 Plavix 0 Yes [facility] 1 tab(s) [facility] 1-25 [place] [facility] 00:00: [place] 00 Mag-Ox 400 2012-0 Yes Aydin 2 tab(s) [facility] 1-07 [place] [facility] 00:00: Bruce 00 Mag-Ox 400 2012-0 Yes Aydin 2 tab(s) [facility] 1-07 [place] [facility] 00:00: [place] 00 Mag-Ox 400 2012-0 Yes Aydin 2 tab(s) [facility] 1-07 [place] [facility] 00:00: [place] 00 Mag-Ox 400 2012-0 Yes Aydin 2 tab(s) [facility] 1-07 [place] [facility] 00:00: [place] 00 Mag-Ox 400 2012-0 Yes Aydin 2 tab(s) [facility] 1-07 [place] [facility] 00:00: [place] 00 Trilipix 2010-0 Yes Aydin 1 tab(s) [facility] 5-11 [place] [facility] 00:00: [place] 00 Trilipix 2010-0 Yes [facility] 1 tab(s) [facility] 5-11 [place] [facility] 00:00: [place] 00 Trilipix 2009-0 Yes A[facility] 1 tab(s) [facility] 5-11 [place] [facility] 00:00: [place] 00 Trilipix 2009-0 Yes Aydin 1 tab(s) [facility] 01-21 [facility] 00:00: Trilipix 2009-0 Yes Aydin 1 tab(s) [facility] 01-21 [facility] 00:00: clobetasol clobetasol No clobetasol [facility] 0.05 % 0.05 % 0.05 % [facility] scalp scalp scalp Practic solution solution solution e clobetasol clobetasol No clobetasol [facility] 0.05 % 0.05 % 0.05 % [facility] topical topical topical Practi c ointment ointment ointment e APPLY A APPLY A APPLY A THIN LAYER THIN LAYER THIN LAYER TO HAIR TO HAIR TO HAIR HALF AN HALF AN HALF AN HOUR BEFORE HOUR BEFORE HOUR WASHING WASHING BEFORE HAIR HAIR WASHING HAIR [employer] No [employer] Sensor Sensor Sensor Family change change change Practic every ten every ten every ten e days days [facility] [address] Transmitter Transmitter Transmitte Family use as use as r use as Practic directed directed directed e diclofenac diclofenac No diclofenac [facility] 1 % topical 1 % topical 1 % F amily gel gel topical Practic gel e donepezil donepezil No donepezil [facility] 10 mg 10 mg 10 mg Family tablet Take tablet Take tablet Practic 1 tablet 1 tablet Take 1 e every day every day tablet by oral by oral every day route at route at by oral bedtime. bedtime. route at bedtime. econazole 1 econazole 1 No econazole [place] % topical % topical 1 % Famil y cream cream topical Practic cream e ergocalcife ergocalcife No ergocalcif [facility] van power Family (vitamin (vitamin (vitamin Pra ctic D2) 1,250 D2) 1,250 D2) 1,250 e mcg (50,000 mcg (50,000 mcg unit) unit) (50,000 capsule capsule unit) Take 1 Take 1 capsule capsule capsule Take 1 every week every week capsule by oral by oral every week route. route. by oral route. fluconazole fluconazole No fluconazol [facility] 100 mg 100 mg e 100 mg Family tablet take tablet take tablet Practic two tablets two tablets take two e day one and day one and tablets then one then one day one until gone until gone and then one until gone fluconazole fluconazole No fluconazol [facility] 150 mg 150 mg e 150 mg Family tablet tablet tablet Practic e fluconazole fluconazole No fluconazol [facility] 200 mg 200 mg e 200 mg Family tablet tablet tablet Practic e fluocinonid fluocinonid No fluocinoni [facility] e 0.05 % e 0.05 % de 0.05 % Fa astrid topical topical topical Practi c solution solution solution e folic acid folic acid No folic acid [facility] 1 mg tablet 1 mg tablet 1 mg F amily tablet Practic e FreeStyle FreeStyle No FreeStyle [facility] [place] 14 [place] 14 [place] 14 Fam aissatou Day Sensor Day Sensor Day Sensor Practic kit CHANGE kit CHANGE kit CHANGE e SENSORS Q SENSORS Q SENSORS Q 14 DAYS 14 DAYS 14 DAYS FreeStyle FreeStyle No FreeStyle [facility] [place] 2 [place] 2 [place] 2 Family Sensor Sensor Sensor Practic change q14 change q14 change q14 e days days days furosemide furosemide No furosemide [facility] 40 mg 40 mg 40 mg Family tablet Take tablet Take tablet Practic 1 tablet 1 tablet Take 1 e every day every day tablet by oral by oral every day route as route as by oral needed. needed. route as needed. gabapentin gabapentin No gabapentin [facility] 300 mg 300 mg 300 mg Family capsule capsule capsule Practi c Take 1 Take 1 Take 1 e capsule 3 capsule 3 capsule 3 times a day times a day times a by oral by oral day by route. route. oral route. gentamicin gentamicin No gentamicin [facility] 0.1 % 0.1 % 0.1 % [facility] topical topical topical Practi c ointment ointment ointment e Humalog Mix Humalog Mix No Humalog [facility] 50-50 50-50 Mix 50-50 [facility] KwikPen KwikPen KwikPen Practi c U-100 U-100 U-100 e Insulin 100 Insulin 100 Insulin unit/mL unit/mL 100 subcutaneou subcutaneou unit/mL s pen s pen subcutaneo Inject 60 Inject 60 us pen units TID units TID Inject 60 units TID ibuprofen ibuprofen No ibuprofen [facility] 800 mg 800 mg 800 mg Family tablet tablet tablet Practic e ipratropium ipratropium No ipratropiu [facility] bromide 42 bromide 42 m bromide Family mcg (0.06 mcg (0.06 42 mcg Pra ctic %) nasal %) nasal (0.06 %) e spray spray nasal spray ketoconazol ketoconazol No ketoconazo [facility] e 2 % e 2 % le 2 % [facility] topical topical topical Practi c cream cream cream e loratadine loratadine No loratadine [facility] 10 mg 10 mg 10 mg Family tablet tablet tablet Practic e meperidine meperidine No meperidine [facility] 50 mg 50 mg 50 mg Family tablet PRN tablet PRN tablet PRN Practic e mupirocin 2 mupirocin 2 No mupirocin [place] % topical % topical 2 % Famil y ointment ointment topical Prac tic ointment e nitroglycer nitroglycer No nitroglyce [facility] in 0.4 mg in 0.4 mg rin 0.4 mg Family sublingual sublingual sublingual Practic tablet tablet tablet e Place [address] 1 tablet as tablet as tablet as needed by needed by needed by sublingual sublingual sublingual route. route. route. nystatin nystatin No nystatin [facility] 100,000 100,000 100,000 Family unit/gram unit/gram unit/gram Practic topical topical topical e cream APPLY cream APPLY cream TOPICALLY TOPICALLY APPLY TO THE TO THE TOPICALLY AFFECTED AFFECTED TO THE AREA TWICE AREA TWICE AFFECTED DAILY DAILY AREA TWICE DAILY nystatin-tr nystatin-tr No nystatin-t [facility] iamcinolone iamcinolone riamcinolo Family 100,000 100,000 ne 100,000 Pra ctic unit/g-0.1 unit/g-0.1 unit/g-0.1 e % topical % topical % topical cream cream cream OneTouch OneTouch No OneTouch [facility] Delica Delica Delica Family Lancets 30 Lancets 30 Lancets 30 Practic gauge Check gauge Check gauge e blood sugar blood sugar Check 3 times per 3 times per blood day day sugar 3 times per day OneTouch OneTouch No OneTouch [facility] Verio test Verio test Verio test Family strips USE strips USE strips USE Practic 1 STRIP 1 STRIP 1 STRIP e THREE TIMES THREE TIMES THREE DAILY DAILY TIMES DAILY Praluent Praluent No Praluent [facility] Pen 75 Pen 75 Pen 75 Family mg/mL mg/mL mg/mL Practic subcutaneou subcutaneou subcutaneo e s pen s pen us pen injector injector injector Inject 1 mL Inject 1 mL Inject 1 every 2 every 2 mL every 2 weeks by weeks by weeks by subcutaneou subcutaneou subcutaneo s route. s route. us route. pramipexole pramipexole No pramipexol [facility] 0.5 mg 0.5 mg e 0.5 mg Family tablet Take tablet Take tablet Practic 1 tablet 1 tablet Take 1 e twice a day twice a day tablet by oral by oral twice a route. route. day by oral route. propafenone propafenone propafenon [facility] 150 mg 150 mg e 150 mg Family tablet Take tablet Take tablet Practic 1 tablet 1 tablet Take 1 e every 8 every 8 tablet hours by hours by every 8 oral route. oral route. hours by oral route. Remedy Remedy No Remedy [facility] Phytoplex Phytoplex Phytoplex Family Z-Guard Z-Guard Z-Guard Practi c (zinc (zinc (zinc e oxide) 17 oxide) 17 oxide) 17 %-57 % %-57 % %-57 % topical topical topical paste paste paste salicylic salicylic No salicylic [facility] acid 6 % acid 6 % acid 6 % Fam aissatou shampoo shampoo shampoo Practi c APPLY TO APPLY TO APPLY TO e WET HAIR BY WET HAIR BY WET HAIR TOPICAL TOPICAL BY TOPICAL ROUTE ; ROUTE ; ROUTE ; WORK INTO A WORK INTO A WORK INTO FULL LATHER FULL LATHER A FULL THEN RINSE THEN RINSE LATHER THOROUGHLY THOROUGHLY THEN RINSE AND PAT DRY AND PAT DRY THOROUGHLY NEEDED NEEDED AND PAT DRY NEEDED sulfamethox sulfamethox No sulfametho [facility] azole 800 azole 800 xazole 800 Family mg-trimetho mg-trimetho mg-trimeth Practic prim 160 mg prim 160 mg oprim 160 e tablet tablet mg tablet Tresiba Tresiba No Tresiba [place] e FlexTouch FlexTouch FlexTouch [facility] U-200 U-200 U-200 Practic insulin 200 insulin 200 insulin e unit/mL (3 unit/mL (3 200 mL) mL) unit/mL (3 subcutaneou subcutaneou mL) s pen s pen subcutaneo Inject 55 Inject 55 us pen units daily units daily Inject 55 units daily triamcinolo triamcinolo No triamcinol [facility] ne ne one Family acetonide acetonide acetonide Practic 0.1 % 0.1 % 0.1 % e topical topical topical cream cream cream amiodarone amiodarone No amiodarone [facility] 200 mg 200 mg 200 mg Family tablet Take tablet Take tablet Practic one tablet one tablet Take one e daily daily tablet daily Analpram-HC Analpram-HC No Analpram-H [place] 2.5 %-1 % 2.5 %-1 % C 2.5 %-1 Family rectal rectal % rectal Practic cream cream cream e BD BD No BD [place] Ultra-Fine Ultra-Fine Ultra-Fine Family Short Pen Short Pen Short Pen Practic Needle 31 Needle 31 Needle 31 e gauge x gauge x gauge x 01/26" USE 01/26" USE 01/26" USE UNDER THE UNDER THE UNDER THE SKIN FOUR SKIN FOUR SKIN FOUR TIMES A DAY TIMES A DAY TIMES A DAY clobetasol clobetasol No clobetasol [facility] 0.05 % 0.05 % 0.05 % [facility] scalp scalp scalp Practic solution solution solution e APPLY A APPLY A APPLY A THIN LAYER THIN LAYER THIN LAYER TO HAIR TO HAIR TO HAIR HALF AN HALF AN HALF AN HOUR BEFORE HOUR BEFORE HOUR WASHING WASHING BEFORE HAIR HAIR WASHING HAIR clobetasol clobetasol No clobetasol [facility] 0.05 % 0.05 % 0.05 % [facility] topical topical topical Practi c ointment ointment ointment e APPLY A APPLY A APPLY A THIN LAYER THIN LAYER THIN LAYER TO HAIR TO HAIR TO HAIR HALF AN HALF AN HALF AN HOUR BEFORE HOUR BEFORE HOUR WASHING WASHING BEFORE HAIR HAIR WASHING HAIR donepezil donepezil No donepezil [facility] 10 mg 10 mg 10 mg [facility] tablet Take tablet Take tablet Practic 1 tablet 1 tablet Take 1 e every day every day tablet by oral by oral every day route at route at by oral bedtime. bedtime. route at bedtime. econazole 1 econazole 1 No econazole [place] % topical % topical 1 % Famil y cream cream topical Practic cream e ergocalcife ergocalcife No ergocalcif [facility] van araujo tono [facility] (vitamin (vitamin (vitamin Pra ctic D2) 1,250 D2) 1,250 D2) 1,250 e mcg (50,000 mcg (50,000 mcg unit) unit) (50,000 capsule capsule unit) Take 1 Take 1 capsule capsule capsule Take 1 every week every week capsule by oral by oral every week route. route. by oral route. fluocinonid fluocinonid No fluocinoni [place] e 0.05 % e 0.05 % de 0.05 % Fa astrid topical topical topical Practi c solution solution solution e folic acid folic acid No folic acid [facility] 1 mg tablet 1 mg tablet 1 mg F amily tablet Practic e FreeStyle FreeStyle No FreeStyle [place] 14 [place] 14 [place] 14 Fam aissatou Day Sensor Day Sensor Day Sensor Practic kit CHANGE kit CHANGE kit CHANGE e SENSORS Q SENSORS Q SENSORS Q 14 DAYS 14 DAYS 14 DAYS FreeStyle FreeStyle No FreeStyle [place] 2 [place] 2 [place] 2 Family Sensor Sensor Sensor Practic change q14 change q14 change q14 e days days days furosemide furosemide No furosemide [facility] 40 mg 40 mg 40 mg Family tablet Take tablet Take tablet Practic 1 tablet 1 tablet Take 1 e every day every day tablet by oral by oral every day route as route as by oral needed. needed. route as needed. gabapentin gabapentin No gabapentin [facility] 300 mg 300 mg 300 mg Family capsule capsule capsule Practi c Take 1 Take 1 Take 1 e capsule 3 capsule 3 capsule 3 times a day times a day times a by oral by oral day by route. route. oral route. gentamicin gentamicin No gentamicin [facility] 0.1 % 0.1 % 0.1 % Family topical topical topical Practi c ointment ointment ointment e Humalog Mix Humalog Mix No Humalog [facility] 50-50 50-50 Mix 50-50 Family KwikPen KwikPen KwikPen Practi c U-100 U-100 U-100 e Insulin 100 Insulin 100 Insulin unit/mL unit/mL 100 subcutaneou subcutaneou unit/mL s pen s pen subcutaneo Inject 60 Inject 60 us pen units TID units TID Inject 60 units TID ibuprofen ibuprofen No ibuprofen [facility] 800 mg 800 mg 800 mg Family tablet tablet tablet Practic e ipratropium ipratropium No ipratropiu [facility] bromide 42 bromide 42 m bromide Family mcg (0.06 mcg (0.06 42 mcg Pra ctic %) nasal %) nasal (0.06 %) e spray spray nasal spray ketoconazol ketoconazol No ketoconazo [facility] e 2 % e 2 % le 2 % Family topical topical topical Practi c cream cream cream e loratadine loratadine No loratadine [facility] 10 mg 10 mg 10 mg Family tablet tablet tablet Practic e meperidine meperidine No meperidine [facility] 50 mg 50 mg 50 mg Family tablet PRN tablet PRN tablet PRN Practic e mupirocin 2 mupirocin 2 No mupirocin [place] % topical % topical 2 % Famil y ointment ointment topical Prac tic ointment e nitroglycer nitroglycer No nitroglyce [facility] in 0.4 mg in 0.4 mg rin 0.4 mg Family sublingual sublingual sublingual Practic tablet tablet tablet e Place [address] 1 tablet as tablet as tablet as needed by needed by needed by sublingual sublingual sublingual route. route. route. nystatin nystatin No nystatin [facility] 100,000 100,000 100,000 Family unit/gram unit/gram unit/gram Practic topical topical topical e cream APPLY cream APPLY cream TOPICALLY TOPICALLY APPLY TO THE TO THE TOPICALLY AFFECTED AFFECTED TO THE AREA TWICE AREA TWICE AFFECTED DAILY DAILY AREA TWICE DAILY nystatin-tr nystatin-tr No nystatin-t [facility] iamcinolone iamcinolone riamcinolo Family 100,000 100,000 ne 100,000 Pra ctic unit/g-0.1 unit/g-0.1 unit/g-0.1 e % topical % topical % topical cream cream cream OneTouch OneTouch No OneTouch [facility] Delica Delica Delica Family Lancets 30 Lancets 30 Lancets 30 Practic gauge Check gauge Check gauge e blood sugar blood sugar Check 3 times per 3 times per blood day day sugar 3 times per day OneTouch OneTouch No OneTouch [facility] Verio test Verio test Verio test Family strips USE strips USE strips USE Practic 1 STRIP 1 STRIP 1 STRIP e THREE TIMES THREE TIMES THREE DAILY DAILY TIMES DAILY Praluent Praluent No Praluent [facility] Pen 75 Pen 75 Pen 75 Family mg/mL mg/mL mg/mL Practic subcutaneou subcutaneou subcutaneo e s pen s pen us pen injector injector injector Inject 1 mL Inject 1 mL Inject 1 every 2 every 2 mL every 2 weeks by weeks by weeks by subcutaneou subcutaneou subcutaneo s route. s route. us route. propafenone propafenone No propafenon [facility] 150 mg 150 mg e 150 mg Family tablet Take tablet Take tablet Practic 1 tablet 1 tablet Take 1 e every 8 every 8 tablet hours by hours by every 8 oral route. oral route. hours by oral route. Remedy Remedy No Remedy [place] Phytoplex Phytoplex Phytoplex Family Z-Guard Z-Guard Z-Guard Practi c (zinc (zinc (zinc e oxide) 17 oxide) 17 oxide) 17 %-57 % %-57 % %-57 % topical topical topical paste paste paste Tresiba Tresiba No Tresiba [place] e FlexTouch FlexTouch FlexTouch [facility] U-200 U-200 U-200 Practic insulin 200 insulin 200 insulin e unit/mL (3 unit/mL (3 200 mL) mL) unit/mL (3 subcutaneou subcutaneou mL) s pen s pen subcutaneo Inject 54 Inject 54 us pen units daily units daily Inject 54 units daily Analpram-HC Analpram-HC No Analpram-H [facility] 2.5 %-1 % 2.5 %-1 % C 2.5 %-1 Family rectal rectal % rectal Practic cream cream cream e Insert by Insert by Insert by rectal rectal rectal route as route as route as needed. needed. needed. BD BD No BD [facility] Ultra-Fine Ultra-Fine Ultra-Fine [facility] Short Pen Short Pen Short Pen Practic Needle 31 Needle 31 Needle 31 e gauge x gauge x gauge x 5/16" USE 5/16" USE 5/16" USE UNDER THE UNDER THE UNDER THE SKIN FOUR SKIN FOUR SKIN FOUR TIMES A DAY TIMES A DAY TIMES A DAY clobetasol clobetasol No clobetasol [facility] 0.05 % 0.05 % 0.05 % [facility] scalp scalp scalp Practic solution solution solution e APPLY A APPLY A APPLY A THIN LAYER THIN LAYER THIN LAYER TO HAIR TO HAIR TO HAIR HALF AN HALF AN HALF AN HOUR BEFORE HOUR BEFORE HOUR WASHING WASHING BEFORE HAIR HAIR WASHING HAIR [facility] 0.05 % 0.05 % 0.05 % [facility] topical topical topical Practi c ointment ointment ointment e APPLY A APPLY A APPLY A THIN LAYER THIN LAYER THIN LAYER TO HAIR TO HAIR TO HAIR HALF AN HALF AN HALF AN HOUR BEFORE HOUR BEFORE HOUR WASHING WASHING BEFORE HAIR HAIR WASHING HAIR donepezil donepezil No donepezil [facility] 10 mg 10 mg 10 mg [facility] tablet Take tablet Take tablet Practic 1 tablet 1 tablet Take 1 e every day every day tablet by oral by oral every day route at route at by oral bedtime. bedtime. route at bedtime. econazole 1 econazole 1 No econazole [place] % topical % topical 1 % Famil y cream cream topical Practic cream e ergocalcife ergocalcife No ergocalcif [facility] rol rol tono Family (vitamin (vitamin (vitamin Pra ctic D2) 1,250 D2) 1,250 D2) 1,250 e mcg (50,000 mcg (50,000 mcg unit) unit) (50,000 capsule capsule unit) Take 1 Take 1 capsule capsule capsule Take 1 every week every week capsule by oral by oral every week route. route. by oral route. fluocinonid fluocinonid No fluocinoni [place] e 0.05 % e 0.05 % de 0.05 % Fa astrid topical topical topical Practi c solution solution solution e folic acid folic acid No folic acid [facility] 1 mg tablet 1 mg tablet 1 mg F amily tablet Practic e FreeStyle FreeStyle No FreeStyle [facility] [place] 14 [place] 14 [place] 14 Fam aissatou Day Sensor Day Sensor Day Sensor Practic kit CHANGE kit CHANGE kit CHANGE e SENSORS Q SENSORS Q SENSORS Q 14 DAYS 14 DAYS 14 DAYS FreeStyle FreeStyle No FreeStyle [facility] [place] 2 [place] 2 [place] 2 Family Sensor Sensor Sensor Practic change q14 change q14 change q14 e days days days furosemide furosemide No furosemide [facility] 40 mg 40 mg 40 mg Family tablet Take tablet Take tablet Practic 1 tablet 1 tablet Take 1 e every day every day tablet by oral by oral every day route as route as by oral needed. needed. route as needed. gabapentin gabapentin No gabapentin [facility] 300 mg 300 mg 300 mg Family capsule capsule capsule Practi c Take 1 Take 1 Take 1 e capsule 3 capsule 3 capsule 3 times a day times a day times a by oral by oral day by route. route. oral route. gentamicin gentamicin No gentamicin [facility] 0.1 % 0.1 % 0.1 % [facility] topical topical topical Practi c ointment ointment ointment e Humalog Mix Humalog Mix No Humalog [facility] 50-50 50-50 Mix 50-50 [facility] KwikPen KwikPen KwikPen Practi c U-100 U-100 U-100 e Insulin 100 Insulin 100 Insulin unit/mL unit/mL 100 subcutaneou subcutaneou unit/mL s pen s pen subcutaneo Inject 60 Inject 60 us pen units TID units TID Inject 60 units TID hydrocortis hydrocortis No hydrocorti [facility] one 2.5 % one 2.5 % sone 2.5 % Family lotion lotion lotion Practic e ipratropium ipratropium No ipratropiu [place] bromide 42 bromide 42 m bromide Family mcg (0.06 mcg (0.06 42 mcg Pra ctic %) nasal %) nasal (0.06 %) e spray spray nasal spray ketoconazol ketoconazol No ketoconazo [place] e 2 % e 2 % le 2 % Family topical topical topical Practi c cream cream cream e loratadine loratadine No loratadine [facility] 10 mg 10 mg 10 mg Family tablet tablet tablet Practic e meperidine meperidine No meperidine [facility] 50 mg 50 mg 50 mg Family tablet PRN tablet PRN tablet PRN Practic e mupirocin 2 mupirocin 2 No mupirocin [place] % topical % topical 2 % Famil y ointment ointment topical Prac tic ointment e nitroglycer nitroglycer No nitroglyce [place] in 0.4 mg in 0.4 mg rin 0.4 mg Family sublingual sublingual sublingual Practic tablet tablet tablet e Place [address] 1 tablet as tablet as tablet as needed by needed by needed by sublingual sublingual sublingual route. route. route. nystatin nystatin No nystatin [facility] 100,000 100,000 100,000 Family unit/gram unit/gram unit/gram Practic topical topical topical e cream APPLY cream APPLY cream TOPICALLY TOPICALLY APPLY TO THE TO THE TOPICALLY AFFECTED AFFECTED TO THE AREA TWICE AREA TWICE AFFECTED DAILY DAILY AREA TWICE DAILY nystatin-tr nystatin-tr No nystatin-t [facility] iamcinolone iamcinolone riamcinolo Family 100,000 100,000 ne 100,000 Pra ctic unit/g-0.1 unit/g-0.1 unit/g-0.1 e % topical % topical % topical cream cream cream OneTouch OneTouch No OneTouch [facility] nu[facility] Delica Delica Delica Family Lancets 30 Lancets 30 Lancets 30 Practic gauge Check gauge Check gauge e blood sugar blood sugar Check 3 times per 3 times per blood day day sugar 3 times per day OneTouch OneTouch No OneTouch [facility] Verio test Verio test Verio test Family strips USE strips USE strips USE Practic 1 STRIP 1 STRIP 1 STRIP e THREE TIMES THREE TIMES THREE DAILY DAILY TIMES DAILY Praluent Praluent No Praluent [facility] Pen 75 Pen 75 Pen 75 Family mg/mL mg/mL mg/mL Practic subcutaneou subcutaneou subcutaneo e s pen s pen us pen injector injector injector Inject 1 mL Inject 1 mL Inject 1 every 2 every 2 mL every 2 weeks by weeks by weeks by subcutaneou subcutaneou subcutaneo s route. s route. us route. propafenone propafenone Deb propafenon [facility] 150 mg 150 mg e 150 mg [facility] tablet Take tablet Take tablet Practic 1 tablet 1 tablet Take 1 e every 8 every 8 tablet hours by hours by every 8 oral route. oral route. hours by oral route. Remedy Remedy No Remedy [place] Phytoplex Phytoplex Phytoplex Family Z-Guard Z-Guard Z-Guard Practi c (zinc (zinc (zinc e oxide) 17 oxide) 17 oxide) 17 %-57 % %-57 % %-57 % topical topical topical paste paste paste Tresiba Tresiba No Tresiba [place] e FlexTouch FlexTouch FlexTouch Family U-200 U-200 U-200 Practic insulin 200 insulin 200 insulin e unit/mL (3 unit/mL (3 200 mL) mL) unit/mL (3 subcutaneou subcutaneou mL) s pen s pen subcutaneo Inject 54 Inject 54 us pen units daily units daily Inject 54 units daily Analpram-HC Analpram-HC No Analpram-H [facility] 2.5 %-1 % 2.5 %-1 % C 2.5 %-1 Family rectal rectal % rectal Practic cream cream cream e Insert by Insert by Insert by rectal rectal rectal route as route as route as needed. needed. needed. BD BD No BD [facility] Ultra-Fine Ultra-Fine Ultra-Fine [facility] Short Pen Short Pen Short Pen Practic Needle 31 Needle 31 Needle 31 e gauge x gauge x gauge x 01/26" USE 01/26" USE 01/26" USE UNDER THE UNDER THE UNDER THE SKIN FOUR SKIN FOUR SKIN FOUR TIMES A DAY TIMES A DAY TIMES A DAY clobetasol clobetasol No clobetasol [facility] 0.05 % 0.05 % 0.05 % [facility] scalp scalp scalp Practic solution solution solution e APPLY A APPLY A APPLY A THIN LAYER THIN LAYER THIN LAYER TO HAIR TO HAIR TO HAIR HALF AN HALF AN HALF AN HOUR BEFORE HOUR BEFORE HOUR WASHING WASHING BEFORE HAIR HAIR WASHING HAIR clobetasol clobetasol No clobetasol [facility] 0.05 % 0.05 % 0.05 % [facility] topical topical topical Practi c ointment ointment ointment e APPLY A APPLY A APPLY A THIN LAYER THIN LAYER THIN LAYER TO HAIR TO HAIR TO HAIR HALF AN HALF AN HALF AN HOUR BEFORE HOUR BEFORE HOUR WASHING WASHING BEFORE HAIR HAIR WASHING HAIR donepezil donepezil No donepezil [facility] 10 mg 10 mg 10 mg Family tablet Take tablet Take tablet Practic 1 tablet 1 tablet Take 1 e every day every day tablet by oral by oral every day route at route at by oral bedtime. bedtime. route at bedtime. econazole 1 econazole 1 No econazole [place] % topical % topical 1 % Famil y cream cream topical Practic cream e ergocalcife ergocalcife No ergocalcif [facility] rol van power Family (vitamin (vitamin (vitamin Pra ctic D2) 1,250 D2) 1,250 D2) 1,250 e mcg (50,000 mcg (50,000 mcg unit) unit) (50,000 capsule capsule unit) Take 1 Take 1 capsule capsule capsule Take 1 every week every week capsule by oral by oral every week route. route. by oral route. fluocinonid fluocinonid No fluocinoni [facility] e 0.05 % e 0.05 % de 0.05 % Fa astrid topical topical topical Practi c solution solution solution e APPLY A APPLY A APPLY A THIN LAYER THIN LAYER THIN LAYER TO SCALP TO SCALP TO SCALP TWICE A TWICE A TWICE A WEEK WEEK WEEK folic acid folic acid No folic acid [facility] 1 mg tablet 1 mg tablet 1 mg F amily tablet Practic e FreeStyle FreeStyle No FreeStyle [facility] [place] 14 [place] 14 [place] 14 Fam aissatou Day Sensor Day Sensor Day Sensor Practic kit CHANGE kit CHANGE kit CHANGE e SENSORS Q SENSORS Q SENSORS Q 14 DAYS 14 DAYS 14 DAYS FreeStyle FreeStyle No FreeStyle [facility] [place] 2 [place] 2 [place] 2 Family Sensor Sensor Sensor Practic change q14 change q14 change q14 e days days days furosemide furosemide No furosemide [facility] 40 mg 40 mg 40 mg Family tablet Take tablet Take tablet Practic 1 tablet 1 tablet Take 1 e every day every day tablet by oral by oral every day route as route as by oral needed. needed. route as needed. gabapentin gabapentin No gabapentin [facility] 300 mg 300 mg 300 mg Family capsule capsule capsule Practi c Take 1 Take 1 Take 1 e capsule 3 capsule 3 capsule 3 times a day times a day times a by oral by oral day by route. route. oral route. gentamicin gentamicin No gentamicin [place] 0.1 % 0.1 % 0.1 % Family topical topical topical Practi c ointment ointment ointment e Humalog Mix Humalog Mix No Humalog [place] 50-50 50-50 Mix 50-50 Family KwikPen KwikPen KwikPen Practi c U-100 U-100 U-100 e Insulin 100 Insulin 100 Insulin unit/mL unit/mL 100 subcutaneou subcutaneou unit/mL s pen s pen subcutaneo Inject 60 Inject 60 us pen units TID units TID Inject 60 units TID hydrocortis hydrocortis No hydrocorti [place] one 2.5 % one 2.5 % sone 2.5 % Family lotion lotion lotion Practic e hydrocortis hydrocortis No hydrocorti [facility] one-pramoxi one-pramoxi sone-pramo Family ne 2.5 %-1 ne 2.5 %-1 xine 2.5 Practic % topical % topical %-1 % e cream APPLY cream APPLY topical A THIN A THIN cream LAYER TO LAYER TO APPLY A AFFECTED AFFECTED THIN LAYER AREA ON AREA ON TO LABIA EVERY LABIA EVERY AFFECTED DAY DAY AREA ON LABIA EVERY DAY ipratropium ipratropium No ipratropiu [facility] bromide 42 bromide 42 m bromide Family mcg (0.06 mcg (0.06 42 mcg Pra ctic %) nasal %) nasal (0.06 %) e spray spray nasal spray ketoconazol ketoconazol No ketoconazo [place] e 2 % e 2 % le 2 % Family topical topical topical Practi c cream cream cream e lidocaine 5 lidocaine 5 No lidocaine [place] % topical % topical 5 % Famil y patch patch topical Practic patch e loratadine loratadine No loratadine [facility] 10 mg 10 mg 10 mg Family tablet tablet tablet Practic e meperidine meperidine No meperidine [facility] 50 mg 50 mg 50 mg Family tablet PRN tablet PRN tablet PRN Practic e mupirocin 2 mupirocin 2 No mupirocin [place] % topical % topical 2 % Famil y ointment ointment topical Prac tic ointment e nitrofurant nitrofurant No nitrofuran [place] oin oin toin Family monohydrate monohydrate monohydrat Practic /macrocryst /macrocryst e/macrocry e als 100 mg als 100 mg stals 100 capsule capsule mg capsule TAKE ONE TAKE ONE TAKE ONE CAPSULE BY CAPSULE BY CAPSULE BY MOUTH EVERY MOUTH EVERY MOUTH MORNING AND MORNING AND EVERY 1 CAPSULE 1 CAPSULE MORNING EVERY EVERY AND 1 EVENING FOR EVENING FOR CAPSULE 5 DAYS 5 DAYS EVERY EVENING FOR 5 DAYS nitroglycer nitroglycer No nitroglyce [place] in 0.4 mg in 0.4 mg rin 0.4 mg Family sublingual sublingual sublingual Practic tablet tablet tablet e PLACE [address] 1 TABLET TABLET TABLET UNDER THE UNDER THE UNDER THE TONGUE TONGUE TONGUE NEEDED NEEDED NEEDED CHEST PAIN CHEST PAIN CHEST PAIN nystatin nystatin No nystatin Angela nuvia 100,000 100,000 100,000 Family unit/gram unit/gram unit/gram Practic topical topical topical e cream APPLY cream APPLY cream TOPICALLY TOPICALLY APPLY TO THE TO THE TOPICALLY AFFECTED AFFECTED TO THE AREA TWICE AREA TWICE AFFECTED DAILY DAILY AREA TWICE DAILY nystatin-tr nystatin-tr No nystatin-t [place] iamcinolone iamcinolone riainolo Family 100,000 100,000 ne 100,000 Pra ctic unit/g-0.1 unit/g-0.1 unit/g-0.1 e % topical % topical % topical cream cream cream OneTouch OneTouch No OneTouch Angela nuvia Delica Delica Delica Family Lancets 30 Lancets 30 Lancets 30 Practic gauge Check gauge Check gauge e blood sugar blood sugar Check 3 times per 3 times per blood day day sugar 3 times per day OneTouch OneTouch No OneTouch Angela nuvia Verio test Verio test Verio test Family strips USE strips USE strips USE Practic 1 STRIP 1 STRIP 1 STRIP e THREE TIMES THREE TIMES THREE DAILY DAILY TIMES DAILY Praluent Praluent No Praluent Angela nuvia Pen 75 Pen 75 Pen 75 Family mg/mL mg/mL mg/mL Practic subcutaneou subcutaneou subcutaneo e s pen s pen us pen injector injector injector Inject 1 mL Inject 1 mL Inject 1 every 2 every 2 mL every 2 weeks by weeks by weeks by subcutaneou subcutaneou subcutaneo s route. s route. us route. propafenone propafenone No propafenon [place] 150 mg 150 mg e 150 mg Family tablet Take tablet Take tablet Practic 1 tablet 1 tablet Take 1 e every 8 every 8 tablet hours by hours by every 8 oral route. oral route. hours by oral route. Remedy Remedy No Remedy [place] Phytoplex Phytoplex Phytoplex Family Z-Guard Z-Guard Z-Guard Practi c (zinc (zinc (zinc e oxide) 17 oxide) 17 oxide) 17 %-57 % %-57 % %-57 % topical topical topical paste paste paste Tresiba Tresiba No Tresiba [place] e FlexTouch FlexTouch FlexTouch Family U-200 U-200 U-200 Practic insulin 200 insulin 200 insulin e unit/mL (3 unit/mL (3 200 mL) mL) unit/mL (3 subcutaneou subcutaneou mL) s pen s pen subcutaneo Inject 54 Inject 54 us pen units daily units daily Inject 54 units daily amiodarone amiodarone No amiodarone [place] 200 mg 200 mg 200 mg Family tablet Take tablet Take tablet Practic one tablet one tablet Take one e daily daily tablet daily amoxicillin amoxicillin No amoxicilli [facility] 500 500 n 500 Family mg-potassiu mg-potassiu mg-potassi Practic m m um e clavulanate clavulanate clavulanat 125 mg 125 mg e 125 mg tablet TAKE tablet TAKE tablet 1 TABLET BY 1 TABLET BY TAKE 1 MOUTH THREE MOUTH THREE TABLET BY TIMES DAILY TIMES DAILY MOUTH THREE TIMES DAILY Analpram-HC Analpram-HC No Analpram-H [facility] 2.5 %-1 % 2.5 %-1 % C 2.5 %-1 Family rectal rectal % rectal Practic cream cream cream e aspirin 325 aspirin 325 No 1 Q1D aspirin [place] mg tablet mg tablet 325 mg Fam aissatou Take 1 Take 1 tablet Practic tablet tablet Take 1 e every day every day tablet by oral by oral every day route. route. by oral route. B-Complex 1 B-Complex 1 No B-Complex [place] daily daily 1 daily Family Practic e BD BD No BD [place] Ultra-Fine Ultra-Fine Ultra-Fine Family Short Pen Short Pen Short Pen Practic Needle 31 Needle 31 Needle 31 e gauge x gauge x gauge x 5/16" USE 01/26" USE 01/26" USE UNDER THE UNDER THE UNDER THE SKIN FOUR SKIN FOUR SKIN FOUR TIMES A DAY TIMES A DAY TIMES A DAY ciclopirox ciclopirox No ciclopirox [facility] 0.77 % 0.77 % 0.77 % [facility] topical gel topical gel topical Practic gel e clobetasol clobetasol No clobetasol [facility] 0.05 % 0.05 % 0.05 % [facility] scalp scalp scalp Practic solution solution solution e clobetasol clobetasol No clobetasol [facility] 0.05 % 0.05 % 0.05 % [facility] topical topical topical Practi c ointment ointment ointment e APPLY A APPLY A APPLY A THIN LAYER THIN LAYER THIN LAYER TO HAIR TO HAIR TO HAIR HALF AN HALF AN HALF AN HOUR BEFORE HOUR BEFORE HOUR WASHING WASHING BEFORE HAIR HAIR WASHING HAIR clopidogrel clopidogrel No clopidogre [facility] 75 mg 75 mg l 75 mg Family tablet Take tablet Take tablet Practic 1 tablet 1 tablet Take 1 e every day every day tablet by oral by oral every day route. route. by oral route. cranberry cranberry No 1mg Q1D cranberry [facility] extract 300 extract 300 extract Family mg tablet mg tablet 300 mg Pra ctic Take 1 mg Take 1 mg tablet e every day every day Take 1 mg by oral by oral every day route. route. by oral route. diclofenac diclofenac No diclofenac [facility] 1 % topical 1 % topical 1 % F amily gel gel topical Practic gel e Diflucan Diflucan No Diflucan Angela nuvia 100 mg 100 mg 100 mg Family tablet take tablet take tablet Practic two tablets two tablets take two e day one and day one and tablets then one then one day one until gone until gone and then one until gone donepezil donepezil No 1 Q1D donepezil [facility] 10 mg 10 mg 10 mg Family tablet Take tablet Take tablet Practic 1 tablet 1 tablet Take 1 e every day every day tablet by oral by oral every day route at route at by oral bedtime. bedtime. route at bedtime. econazole 1 econazole 1 No econazole [place] % topical % topical 1 % Famil y cream cream topical Practic cream e Eliquis 5 Eliquis 5 No Eliquis 5 Village mg tablet mg tablet mg tablet Family Practic e ergocalcife ergocalcife No ergocalcif [facility] rol rol tono Family (vitamin (vitamin (vitamin Pra ctic D2) 1,250 D2) 1,250 D2) 1,250 e mcg (50,000 mcg (50,000 mcg unit) unit) (50,000 capsule capsule unit) Take 1 Take 1 capsule capsule capsule Take 1 every week every week capsule by oral by oral every week route. route. by oral route. fluconazole fluconazole No fluconazol [facility] 150 mg 150 mg e 150 mg Family tablet tablet tablet Practic e fluocinonid fluocinonid No fluocinoni [place] e 0.05 % e 0.05 % de 0.05 % Fa astrid topical topical topical Practi c solution solution solution e folic acid folic acid No folic acid [facility] 1 mg tablet 1 mg tablet 1 mg F amily tablet Practic e FreeStyle FreeStyle No FreeStyle [facility] [place] 14 [place] 14 [place] 14 Fam aissatou Day Sensor Day Sensor Day Sensor Practic kit CHANGE kit CHANGE kit CHANGE e SENSORS Q SENSORS Q SENSORS Q 14 DAYS 14 DAYS 14 DAYS furosemide furosemide No 1 Q1D furosemide [facility] 40 mg 40 mg 40 mg Family tablet Take tablet Take tablet Practic 1 tablet 1 tablet Take 1 e every day every day tablet by oral by oral every day route as route as by oral needed. needed. route as needed. gabapentin gabapentin No 1capsul TID gabapentin [facility] 300 mg 300 mg e(s) 300 mg Family capsule capsule capsule Practi c Take 1 Take 1 Take 1 e capsule 3 capsule 3 capsule 3 times a day times a day times a by oral by oral day by route. route. oral route. Humalog Mix Humalog Mix No Humalog [facility] 50-50 50-50 Mix 50-50 Family KwikPen KwikPen KwikPen Practi c U-100 U-100 U-100 e Insulin 100 Insulin 100 Insulin unit/mL unit/mL 100 subcutaneou subcutaneou unit/mL s pen s pen subcutaneo Inject 60 Inject 60 us pen units TID units TID Inject 60 units TID ibuprofen ibuprofen No ibuprofen [facility] 800 mg 800 mg 800 mg Family tablet tablet tablet Practic e ipratropium ipratropium No ipratropiu [facility] bromide 42 bromide 42 m bromide Family mcg (0.06 mcg (0.06 42 mcg Pra ctic %) nasal %) nasal (0.06 %) e spray spray nasal spray ketoconazol ketoconazol No ketoconazo [place] e 2 % e 2 % le 2 % Family topical topical topical Practi c cream cream cream e meperidine meperidine No meperidine [facility] 50 mg 50 mg 50 mg Family tablet PRN tablet PRN tablet PRN Practic e metoprolol metoprolol No metoprolol [facility] succinate succinate succinate Family ER 25 mg ER 25 mg ER 25 mg Pra ctic tablet,exte tablet,exte tablet,ext e nded nded ended release 24 release 24 release 24 hr Take one hr Take one hr Take tablet tablet one tablet daily daily daily mupirocin 2 mupirocin 2 No mupirocin [place] % topical % topical 2 % Famil y ointment ointment topical Prac tic ointment e nitroglycer nitroglycer No nitroglyce [facility] in 0.4 mg in 0.4 mg rin 0.4 mg Family sublingual sublingual sublingual Practic tablet tablet tablet e Place [address] 1 tablet as tablet as tablet as needed by needed by needed by sublingual sublingual sublingual route. route. route. nystatin nystatin No nystatin Angela nuvia 100,000 100,000 100,000 Family unit/gram unit/gram unit/gram Practic topical topical topical e cream cream cream nystatin nystatin No nystatin Angela nuvia 100,000 100,000 100,000 Family unit/gram unit/gram unit/gram Practic topical topical topical e powder powder powder nystatin-tr nystatin-tr No nystatin-t [facility] iamcinolone iamcinolone riamcinolo Family 100,000 100,000 ne 100,000 Pra ctic unit/g-0.1 unit/g-0.1 unit/g-0.1 e % topical % topical % topical cream cream cream OneTouch OneTouch No OneTouch [facility] Delica Delica Delica Family Lancets 30 Lancets 30 Lancets 30 Practic gauge Check gauge Check gauge e blood sugar blood sugar Check 3 times per 3 times per blood day day sugar 3 times per day OneTouch OneTouch No OneTouch Angela nuvia Verio test Verio test Verio test Family strips USE strips USE strips USE Practic 1 STRIP 1 STRIP 1 STRIP e THREE TIMES THREE TIMES THREE DAILY DAILY TIMES DAILY potassium potassium No potassium [facility] take 1 take 1 take 1 Family tablet tablet tablet Practic daily daily daily e NEEDED NEEDED NEEDED Praluent Praluent No Praluent Angela nuvia Pen 75 Pen 75 Pen 75 Family mg/mL mg/mL mg/mL Practic subcutaneou subcutaneou subcutaneo e s pen s pen us pen injector injector injector Inject 1 mL Inject 1 mL Inject 1 every 2 every 2 mL every 2 weeks by weeks by weeks by subcutaneou subcutaneou subcutaneo s route. s route. us route. pramipexole pramipexole No pramipexol [facility] 0.5 mg 0.5 mg e 0.5 mg Family tablet Take tablet Take tablet Practic 1 tablet 1 tablet Take 1 e twice a day twice a day tablet by oral by oral twice a route. route. day by oral route. propafenone propafenone No propafenon [facility] 150 mg 150 mg e 150 mg Family tablet Take tablet Take tablet Practic 1 tablet 1 tablet Take 1 e every 8 every 8 tablet hours by hours by every 8 oral route. oral route. hours by oral route. salicylic salicylic No salicylic [facility] acid as acid as acid as Family needed needed needed Practic e salicylic salicylic No salicylic [facility] acid 6 % acid 6 % acid 6 % Fam aissatou shampoo shampoo shampoo Practi c APPLY TO APPLY TO APPLY TO e WET HAIR BY WET HAIR BY WET HAIR TOPICAL TOPICAL BY TOPICAL ROUTE ; ROUTE ; ROUTE ; WORK INTO A WORK INTO A WORK INTO FULL LATHER FULL LATHER A FULL THEN RINSE THEN RINSE LATHER THOROUGHLY THOROUGHLY THEN RINSE AND PAT DRY AND PAT DRY THOROUGHLY NEEDED NEEDED AND PAT DRY NEEDED sulfamethox sulfamethox No sulfametho [facility] azole 800 azole 800 xazole 800 Family mg-trimetho mg-trimetho mg-trimeth Practic prim 160 mg prim 160 mg oprim 160 e tablet tablet mg tablet Synthroid Synthroid No Synthroid [facility] 175 mcg 175 mcg 175 mcg Family tablet TAKE tablet TAKE tablet Practic 1 TABLET 1 TABLET TAKE 1 e DAILY DAILY TABLET DAILY Tresiba Tresiba No Tresiba [place] e FlexTouch FlexTouch FlexTouch Family U-200 U-200 U-200 Practic insulin 200 insulin 200 insulin e unit/mL (3 unit/mL (3 200 mL) mL) unit/mL (3 subcutaneou subcutaneou mL) s pen s pen subcutaneo Inject 40 Inject 40 us pen units daily units daily Inject 40 units daily Xarelto 20 Xarelto 20 No Xarelto 20 [place] mg tablet mg tablet mg tablet Family Practic e amiodarone amiodarone No amiodarone [facility] 200 mg 200 mg 200 mg Family tablet Take tablet Take tablet Practic one tablet one tablet Take one e daily daily tablet daily Analpram-HC Analpram-HC No Analpram-H [facility] 2.5 %-1 % 2.5 %-1 % C 2.5 %-1 Family rectal rectal % rectal Practic cream cream cream e BD BD No BD [place] Ultra-Fine Ultra-Fine Ultra-Fine [facility] Short Pen Short Pen Short Pen Practic Needle 31 Needle 31 Needle 31 e gauge x gauge x gauge x 5/16" USE 16" USE 16" USE UNDER THE UNDER THE UNDER THE SKIN FOUR SKIN FOUR SKIN FOUR TIMES A DAY TIMES A DAY TIMES A DAY ciclopirox ciclopirox No ciclopirox [facility] 0.77 % 0.77 % 0.77 % [facility] topical gel topical gel topical Practic gel e clobetasol clobetasol No clobetasol [facility] 0.05 % 0.05 % 0.05 % [facility] scalp scalp scalp Practic solution solution solution e clobetasol clobetasol No clobetasol [facility] 0.05 % 0.05 % 0.05 % [facility] topical topical topical Practi c ointment ointment ointment e APPLY A APPLY A APPLY A THIN LAYER THIN LAYER THIN LAYER TO HAIR TO HAIR TO HAIR HALF AN HALF AN HALF AN HOUR BEFORE HOUR BEFORE HOUR WASHING WASHING BEFORE HAIR HAIR WASHING HAIR [employer] [address] Sensor Sensor Sensor Family change change change Practic every ten every ten every ten e days [facility] Transmitter Transmitter Transmitte Family use as use as r use as Practic directed directed directed e diclofenac diclofenac No diclofenac [facility] 1 % topical 1 % topical 1 % F amily gel gel topical Practic gel e donepezil donepezil donepezil [facility] 10 mg 10 mg 10 mg Family tablet Take tablet Take tablet Practic 1 tablet 1 tablet Take 1 e every day every day tablet by oral by oral every day route at route at by oral bedtime. bedtime. route at bedtime. econazole 1 econazole 1 No econazole [place] % topical % topical 1 % Famil y cream cream topical Practic cream e ergocalcife ergocalcife No ergocalcif [facility] rol rol tono Family (vitamin (vitamin (vitamin Pra ctic D2) 1,250 D2) 1,250 D2) 1,250 e mcg (50,000 mcg (50,000 mcg unit) unit) (50,000 capsule capsule unit) Take 1 Take 1 capsule capsule capsule Take 1 every week every week capsule by oral by oral every week route. route. by oral route. fluconazole fluconazole No fluconazol [facility] 100 mg 100 mg e 100 mg Family tablet take tablet take tablet Practic two tablets two tablets take two e day one and day one and tablets then one then one day one until gone until gone and then one until gone fluconazole fluconazole No fluconazol [facility] 150 mg 150 mg e 150 mg Family tablet tablet tablet Practic e fluconazole fluconazole No fluconazol [facility] 200 mg 200 mg e 200 mg Family tablet tablet tablet Practic e fluocinonid fluocinonid No fluocinoni [facility] e 0.05 % e 0.05 % de 0.05 % Fa astrid topical topical topical Practi c solution solution solution e folic acid folic acid No folic acid [facility] 1 mg tablet 1 mg tablet 1 mg F amily tablet Practic e FreeStyle FreeStyle No FreeStyle [facility] [place] 14 [place] 14 [place] 14 Fam aissatou Day Sensor Day Sensor Day Sensor Practic kit CHANGE kit CHANGE kit CHANGE e SENSORS Q SENSORS Q SENSORS Q 14 DAYS 14 DAYS 14 DAYS FreeStyle FreeStyle No FreeStyle [facility] [place] 2 [place] 2 [place] 2 Family Sensor Sensor Sensor Practic change q14 change q14 change q14 e days days days furosemide furosemide No furosemide [facility] 40 mg 40 mg 40 mg Family tablet Take tablet Take tablet Practic 1 tablet 1 tablet Take 1 e every day every day tablet by oral by oral every day route as route as by oral needed. needed. route as needed. gabapentin gabapentin No gabapentin [facility] 300 mg 300 mg 300 mg Family capsule capsule capsule Practi c Take 1 Take 1 Take 1 e capsule 3 capsule 3 capsule 3 times a day times a day times a by oral by oral day by route. route. oral route. gentamicin gentamicin No gentamicin [facility] 0.1 % 0.1 % 0.1 % Family topical topical topical Practi c ointment ointment ointment e Humalog Mix Humalog Mix No Humalog [facility] 50-50 50-50 Mix 50-50 [facility] KwikPen KwikPen KwikPen Practi c U-100 U-100 U-100 e Insulin 100 Insulin 100 Insulin unit/mL unit/mL 100 subcutaneou subcutaneou unit/mL s pen s pen subcutaneo Inject 60 Inject 60 us pen units TID units TID Inject 60 units TID ibuprofen ibuprofen No ibuprofen [place] 800 mg 800 mg 800 mg Family tablet tablet tablet Practic e ipratropium ipratropium No ipratropiu [place] bromide 42 bromide 42 m bromide Family mcg (0.06 mcg (0.06 42 mcg Pra ctic %) nasal %) nasal (0.06 %) e spray spray nasal spray ketoconazol ketoconazol No ketoconazo [place] e 2 % e 2 % le 2 % Family topical topical topical Practi c cream cream cream e loratadine loratadine No loratadine [facility] 10 mg 10 mg 10 mg Family tablet tablet tablet Practic e meperidine meperidine No meperidine [facility] 50 mg 50 mg 50 mg Family tablet PRN tablet PRN tablet PRN Practic e mupirocin 2 mupirocin 2 No mupirocin [place] % topical % topical 2 % Famil y ointment ointment topical Prac tic ointment e nitroglycer nitroglycer No nitroglyce [place] in 0.4 mg in 0.4 mg rin 0.4 mg Family sublingual sublingual sublingual Practic tablet tablet tablet e Place [address] 1 tablet as tablet as tablet as needed by needed by needed by sublingual sublingual sublingual route. route. route. nystatin nystatin No nystatin Angela nuvia 100,000 100,000 100,000 Family unit/gram unit/gram unit/gram Practic topical topical topical e cream APPLY cream APPLY cream TOPICALLY TOPICALLY APPLY TO THE TO THE TOPICALLY AFFECTED AFFECTED TO THE AREA TWICE AREA TWICE AFFECTED DAILY DAILY AREA TWICE DAILY nystatin-tr nystatin-tr No nystatin-t [facility] iamcinolone iamcinolone riamcinolo Family 100,000 100,000 ne 100,000 Pra ctic unit/g-0.1 unit/g-0.1 unit/g-0.1 e % topical % topical % topical cream cream cream OneTouch OneTouch No OneTouch Angela nuvia Delica Delica Delica Family Lancets 30 Lancets 30 Lancets 30 Practic gauge Check gauge Check gauge e blood sugar blood sugar Check 3 times per 3 times per blood day day sugar 3 times per day OneTouch OneTouch No OneTouch Angela nuvia Verio test Verio test Verio test Family strips USE strips USE strips USE Practic 1 STRIP 1 STRIP 1 STRIP e THREE TIMES THREE TIMES THREE DAILY DAILY TIMES DAILY Praluent Praluent No Praluent Angela nuvia Pen 75 Pen 75 Pen 75 Family mg/mL mg/mL mg/mL Practic subcutaneou subcutaneou subcutaneo e s pen s pen us pen injector injector injector Inject 1 mL Inject 1 mL Inject 1 every 2 every 2 mL every 2 weeks by weeks by weeks by subcutaneou subcutaneou subcutaneo s route. s route. us route. pramipexole pramipexole No pramipexol [facility] 0.5 mg 0.5 mg e 0.5 mg Family tablet Take tablet Take tablet Practic 1 tablet 1 tablet Take 1 e twice a day twice a day tablet by oral by oral twice a route. route. day by oral route. propafenone propafenone No propafenon [facility] 150 mg 150 mg e 150 mg Family tablet Take tablet Take tablet Practic 1 tablet 1 tablet Take 1 e every 8 every 8 tablet hours by hours by every 8 oral route. oral route. hours by oral route. Remedy Remedy No Remedy [place] Phytoplex Phytoplex Phytoplex Family Z-Guard Z-Guard Z-Guard Practi c (zinc (zinc (zinc e oxide) 17 oxide) 17 oxide) 17 %-57 % %-57 % %-57 % topical topical topical paste paste paste salicylic salicylic No salicylic [facility] acid 6 % acid 6 % acid 6 % Fam aissatou shampoo shampoo shampoo Practi c APPLY TO APPLY TO APPLY TO e WET HAIR BY WET HAIR BY WET HAIR TOPICAL TOPICAL BY TOPICAL ROUTE ; ROUTE ; ROUTE ; WORK INTO A WORK INTO A WORK INTO FULL LATHER FULL LATHER A FULL THEN RINSE THEN RINSE LATHER THOROUGHLY THOROUGHLY THEN RINSE AND PAT DRY AND PAT DRY THOROUGHLY NEEDED NEEDED AND PAT DRY NEEDED sulfamethox sulfamethox No sulfametho [place] azole 800 azole 800 xazole 800 Family mg-trimetho mg-trimetho mg-trimeth Practic prim 160 mg prim 160 mg oprim 160 e tablet tablet mg tablet Synthroid Synthroid No Synthroid [facility] 175 mcg 175 mcg 175 mcg Family tablet TAKE tablet TAKE tablet Practic 1 TABLET 1 TABLET TAKE 1 e DAILY DAILY TABLET DAILY Tresiba Tresiba No Tresiba [facility] FlexTouch FlexTouch FlexTouch Family U-200 U-200 U-200 Practic insulin 200 insulin 200 insulin e unit/mL (3 unit/mL (3 200 mL) mL) unit/mL (3 subcutaneou subcutaneou mL) s pen s pen subcutaneo Inject 40 Inject 40 us pen units daily units daily Inject 40 units daily triamcinolo triamcinolo No triamcinol [facility] ne ne one Family acetonide acetonide acetonide Practic 0.1 % 0.1 % 0.1 % e topical topical topical cream cream cream amiodarone amiodarone No amiodarone [facility] 200 mg 200 mg 200 mg Family tablet Take tablet Take tablet Practic one tablet one tablet Take one e daily daily tablet daily Analpram-HC Analpram-HC No Analpram-H [facility] 2.5 %-1 % 2.5 %-1 % C 2.5 %-1 Family rectal rectal % rectal Practic cream cream cream e BD BD No BD [facility] Ultra-Fine Ultra-Fine Ultra-Fine [facility] Short Pen Short Pen Short Pen Practic Needle 31 Needle 31 Needle 31 e gauge x gauge x gauge x 5/16" USE 5/16" USE 5/16" USE UNDER THE UNDER THE UNDER THE SKIN FOUR SKIN FOUR SKIN FOUR TIMES A DAY TIMES A DAY TIMES A DAY ciclopirox ciclopirox No ciclopirox [facility] 0.77 % 0.77 % 0.77 % [facility] topical gel topical gel topical Practic gel e Immunizations Ordered Immunization Filled Immunization Date Status Commen ts Source Name Name influenza, high-dose, influenza, high-dose, 2022-06-15 Completed [facility] quadrivalent quadrivalent 00:00:00 Practice influenza, high-dose, influenza, high-dose, 2022-06-15 Completed [facility] quadrivalent quadrivalent 00:00:00 Practice influenza, high-dose, influenza, high-dose, 2022-06-15 Completed [facility] quadrivalent quadrivalent 00:00:00 Practice influenza, high-dose, influenza, high-dose, 2022-06-15 Completed [facility] quadrivalent quadrivalent 00:00:00 Practice influenza, high-dose, influenza, high-dose, 2022-06-15 Completed [facility] quadrivalent quadrivalent 00:00:00 Practice influenza, seasonal, influenza, seasonal, 2013-05-26 Completed [facility] injectable injectable 00:00:00 Practice influenza, seasonal, influenza, seasonal, 2013-05-26 Completed [facility] injectable injectable 00:00:00 Practice influenza, seasonal, influenza, seasonal, 2013-05-26 Completed [facility]able injectable 00:00:00 Practice influenza, seasonal, influenza, seasonal, 2013-05-26 Completed [facility] injectable injectable 00:00:00 Practice influenza, seasonal, influenza, seasonal, 2013-05-26 Completed [facility] injectable injectable 00:00:00 Practice influenza, seasonal, influenza, seasonal, 2013-05-26 Completed [facility] injectable injectable 00:00:00 Practice influenza, seasonal, influenza, seasonal, 2012-05-25 Completed [facility] injectable injectable 00:00:00 Practice influenza, seasonal, influenza, seasonal, 2012-05-25 Completed [facility] injectable injectable 00:00:00 Practice influenza, seasonal, influenza, seasonal, 2012-05-25 Completed [facility] injectable injectable 00:00:00 Practice influenza, seasonal, influenza, seasonal, 2012-05-25 Completed [facility] injectable injectable 00:00:00 Practice influenza, seasonal, influenza, seasonal, 2012-05-25 Completed [facility] injectable injectable 00:00:00 Practice influenza, seasonal, influenza, seasonal, 2012-05-25 Completed [facility] injectable injectable 00:00:00 Practice influenza, seasonal, influenza, seasonal, 2010-05-12 Completed [facility] injectable injectable 00:00:00 Practice influenza, seasonal, influenza, seasonal, 2010-05-12 Completed [facility] injectable injectable 00:00:00 Practice influenza, seasonal, influenza, seasonal, 2010-05-12 Completed [facility] injectable injectable 00:00:00 Practice influenza, seasonal, influenza, seasonal, 2010-05-12 Completed [facility] injectable injectable 00:00:00 Practice influenza, seasonal, influenza, seasonal, 2010-05-12 Completed [facility] injectable injectable 00:00:00 Practice influenza, seasonal, influenza, seasonal, 2010-05-12 Completed [facility] injectable injectable 00:00:00 Practice pneumococcal pneumococcal 2003-09-13 Completed [facility] astrid polysaccharide PPV23 polysaccharide PPV23 00:00:00 Practice pneumococcal pneumococcal 2003-09-13 Completed [facility] astrid polysaccharide PPV23 polysaccharide PPV23 00:00:00 Practice pneumococcal pneumococcal 2003-09-13 Completed [facility]id polysaccharide PPV23 polysaccharide PPV23 00:00:00 Practice pneumococcal pneumococcal 2003-09-13 Completed [facility] astrid polysaccharide PPV23 polysaccharide PPV23 00:00:00 Practice pneumococcal pneumococcal 2003-09-13 Completed [facility]id polysaccharide PPV23 polysaccharide PPV23 00:00:00 Practice pneumococcal pneumococcal 2003-09-13 Completed [facility]id polysaccharide PPV23 polysaccharide PPV23 00:00:00 Practice Vital Signs Vital Name Observation Time Observation Value Comments Source Systolic blood 2023-01-13 07:00:00 111 mm[Hg] Univer sity of pressure [facility] Diastolic blood 2023-01-13 07:00:00 46 mm[Hg] Unive rsity [facility] Heart rate 2023-01-13 07:00:00 65 /min [facility] Respiratory rate 2023-01-13 07:00:00 16 /min [facility] Oxygen saturation in 2023-01-13 07:00:00 95 /min [facility] Arterial blood by [facility] Pulse oximetry [place] Body temperature 2023-01-13 04:34:00 36.67 [facility] Body height 2023-01-13 04:34:00 172.7 cm [facility] Body weight 2023-01-13 04:34:00 181.439 kg [facility] BMI 2023-01-13 04:34:00 60.82 kg/m2 [facility] Body Weight 2023-01-01 00:00:00 366 [lb_av] [facility] Practice BP Diastolic 2022-11-27 00:00:00 70 mm[Hg] [facility] Practice BP Systolic 2022-11-27 00:00:00 130 mm[Hg] [facility] Body Weight 2022-11-27 00:00:00 366 [lb_av] [facility] Practice BP Diastolic 2022-07-28 00:00:00 65 mm[Hg] [facility] BP Systolic 2022-07-28 00:00:00 142 mm[Hg] [facility] BP Diastolic 2022-07-21 00:00:00 60 mm[Hg] [facility] BP Systolic 2022-07-21 00:00:00 139 mm[Hg] [facility] Body Weight 2022-07-21 00:00:00 375.6 [lb_av] [facility] BP Diastolic 2021-03-13 00:00:00 70 mm[Hg] [facility] Height 2021-03-13 00:00:00 65 [in_i] [facility] BMI (Body Mass 2021-03-13 00:00:00 61.5 kg/m2 [facility] BP Systolic 2021-03-13 00:00:00 150 mm[Hg] [facility] Body Weight 2021-03-13 00:00:00 369.7 [lb_av] [facility] BP Diastolic 2019-06-20 00:00:00 74 mm[Hg] [facility] Height 2019-06-20 00:00:00 65 [in_i] [facility] BMI (Body Mass 2019-06-20 00:00:00 61.4 kg/m2 [facility] BP Systolic 2019-06-20 00:00:00 156 mm[Hg] [facility] Body Weight 2019-06-20 00:00:00 369 [lb_av] [facility] BP Diastolic 2019-05-05 00:00:00 69 mm[Hg] [facility] Height 2019-05-05 00:00:00 65 [in_i] [facility] BMI (Body Mass 2019-05-05 00:00:00 61.4 kg/m2 [facility] BP Systolic 2019-05-05 00:00:00 142 mm[Hg] [facility] Body Weight 2019-05-05 00:00:00 369 [lb_av] [facility] BP Diastolic 2019-03-27 00:00:00 73 mm[Hg] [facility] Height 2019-03-27 00:00:00 65 [in_i] [facility] BMI (Body Mass 2019-03-27 00:00:00 61.4 kg/m2 [facility] BP Systolic 2019-03-27 00:00:00 152 mm[Hg] [facility] Body Weight 2019-03-27 00:00:00 369 [lb_av] [facility] BP Diastolic 2018-12-20 00:00:00 53 mm[Hg] [facility] Height 2018-12-20 00:00:00 65 [in_i] [facility] BP Systolic 2018-12-20 00:00:00 150 mm[Hg] [facility] Systolic blood 2022-06-13 21:09:06 157 mm[Hg] [facility] Diastolic blood 2022-06-13 21:09:06 80 mm[Hg] [facility] pressure Heart rate 2022-06-13 21:09:06 81 /min [facility] Body temperature 2022-06-13 21:09:[address] [facility] Respiratory rate 2022-06-13 21:09:06 20 /min [facility] Oxygen saturation in 2022-06-13 21:09:06 92 /min [facility] Arterial blood by Pulse oximetry Body height 2022-06-12 16:19:00 167.6 cm [facility] Body weight 2022-06-12 16:19:00 164.202 kg [facility] BMI 2022-06-12 16:19:00 58.43 kg/m2 [facility] Diastolic (mm Hg) 2018-03-21 19:20:00 Mem o[facility] [place] Systolic (mm Hg) 2018-03-21 19:20:[address] [facility] Bruce Weight 2018-03-21 19:20:00 [facility] Bruce Height 2018-03-21 19:20:00 [facility] [place] Diastolic (mm Hg) 2017-09-09 15:10:00 Mem orial [place] Systolic (mm Hg) 2017-09-09 15:10:00 [facility] [place] Weight 2017-09-09 15:10:00 [facility] Height 2017-09-09 15:10:00 [facility] [place] Diastolic (mm Hg) 2017-06-30 20:40:00 Mem orial [facility] Systolic (mm Hg) 2017-06-30 20:40:00 William rial [place] Weight 2017-06-30 20:40:00 [facility] [place] Height 2017-06-30 20:40:00 [facility] Diastolic (mm Hg) 2017-02-24 19:40:00 Mem orial Bruce Systolic (mm Hg) 2017-02-24 19:40:00 William rial Bruce Weight 2017-02-24 19:40:00 [facility] Height 2017-02-24 19:40:00 [facility] [place] Diastolic (mm Hg) 2016-12-16 20:10:00 Mem orial Bruce Systolic (mm Hg) 2016-12-16 20:10:00 William [facility] [place] Weight 2016-12-16 20:10:00 [facility] Height 2016-12-16 20:10:00 [facility] [place] Diastolic (mm Hg) 2016-08-17 21:00:00 Mem orial [place] Systolic (mm Hg) 2016-08-17 21:00:00 William mas[facility]l [place] Weight 2016-08-17 21:00:00 [facility] [place] Height 2016-08-17 21:00:00 [facility] [place] Diastolic (mm Hg) 2016-07-15 19:30:00 Mem orial [place] Systolic (mm Hg) 2016-07-15 19:30:00 [facility] mas[facility]l [place] Weight 2016-07-15 19:30:00 [facility] [place] Height 2016-07-15 19:30:00 [facility] [place] Diastolic (mm Hg) 2016-06-17 18:00:00 Mem orial [place] Systolic (mm Hg) 2016-06-17 18:00:00 William marta [facility] Height 2016-06-17 18:00:00 [facility] Diastolic (mm Hg) 2016-02-19 20:00:00 Mem orial [place] Systolic (mm Hg) 2016-02-19 20:00:00 William marta [place] Weight 2016-02-19 20:00:00 [facility] [place] Height 2016-02-19 20:00:00 [facility] [place] Diastolic (mm Hg) 2016-02-12 20:00:00 Mem orial [place] Systolic (mm Hg) 2016-02-12 20:00:00 William marta [facility] Weight 2016-02-12 20:00:00 [facility] [place] Height 2016-02-12 20:00:00 [facility] Systolic (mm Hg) 2015-02-19 01:13:00 William [facility] [place] Diastolic (mm Hg) 2015-02-19 01:13:00 Mem [facility] [place] Temperature Oral (F) 2015-02-19 01:13:00 98.4 F [facility] [place] Heart Rate 2015-02-19 01:13:00 [facility] [place] Respitory Rate 2015-02-19 01:13:00 Memori al [facility] Systolic (mm Hg) 2015-02-18 19:51:00 William rial [place] Diastolic (mm Hg) 2015-02-18 19:51:00 Mem [facility] [place] Respitory Rate 2015-02-18 19:51:00 Memori [facility] [place] Heart Rate 2015-02-18 19:51:00 [facility] [place] Temperature Oral (F) 2015-02-18 19:51:00 98.1 F [facility] [place] Diastolic (mm Hg) 2014-05-08 19:00:00 Mem orial [facility] Systolic (mm Hg) 2014-05-08 19:00:00 William rial Bruce Weight 2014-05-08 19:00:00 [facility] [place] Height 2014-05-08 19:00:00 [facility] Diastolic (mm Hg) 2014-01-08 21:00:00 Mem orial Bruce Systolic (mm Hg) 2014-01-08 21:00:00 William rial Bruce Height 2014-01-08 21:00:00 [facility] Diastolic (mm Hg) 2013-12-06 20:00:00 Mem orial Bruce Systolic (mm Hg) 2013-12-06 20:00:00 William rial [place] Height 2013-12-06 20:00:00 [facility] [place] Diastolic (mm Hg) 2013-08-14 21:30:00 Mem orial [place] Systolic (mm Hg) 2013-08-14 21:30:00 William rial [place] Weight 2013-08-14 21:30:00 [facility] [place] Height 2013-08-14 21:30:00 [facility] [place] Diastolic (mm Hg) 2013-05-23 21:00:00 Mem orial [place] Systolic (mm Hg) 2013-05-23 21:00:00 William [facility] [place] Weight 2013-05-23 21:00:00 [facility] [place] Height 2013-05-23 21:00:00 [facility] Diastolic (mm Hg) 2013-05-23 20:00:00 Mem orial [place] Systolic (mm Hg) 2013-05-23 20:00:00 William rial [facility] Weight 2013-05-23 20:00:00 [facility] [place] Height 2013-05-23 20:00:00 [facility] [place] Diastolic (mm Hg) 2013-02-22 20:00:00 Mem orial [facility] Systolic (mm Hg) 2013-02-22 20:00:00 William rial [place] Weight 2013-02-22 20:00:00 [facility] [place] Height 2013-02-22 20:00:00 [facility] [place] Diastolic (mm Hg) 2012-12-22 15:30:00 Mem orial [place] Systolic (mm Hg) 2012-12-22 15:30:00 William Barrera Weight 2012-12-22 15:30:00 [facility] 2012-12-22 15:30:00 [facility] Procedures Procedure Date / Time Performing Clinician Source Performed XR TOES 2 VW LEFT 2023-01-13 06:44:00 Criss Mckinney [facility] XR CHEST 1 VW 2023-01-13 06:43:00 Criss Mckinney [facility] URINALYSIS 2023-01-13 06:11:00 Criss Mckinney [facility] TROPONIN I 2023-01-13 05:49:00 Criss Mckinney [facility] COMP. METABOLIC PANEL 2023-01-13 05:49:00 Criss Mckinney [facility] ([id number]) [facility] CBC WITH DIFF 2023-01-13 05:49:00 Criss Mckinney [facility] PROTHROMBIN TIME / INR 2023-01-13 05:49:00 [facility] 2023-01-13 05:49:00 Criss [facility] 2023-01-13 05:49:00 Criss Mckinney [facility] MAMMO, diagnostic, 2022-07-22 00:00:00 Kalin F amily tomosynthesis, bilateral, Practi ce w/ CAD US, breast, bilateral 2022-07-22 00:00:00 [facility] MAMMO, unilateral, left 2022-07-21 00:00:00 [facility] and US, breast, left Practice POC GLUCOSE 2022-06-13 22:04:00 [facility] POC GLUCOSE 2022-06-13 21:10:00 Man [facility] POC GLUCOSE 2022-06-13 17:20:00 Man [facility] POC GLUCOSE 2022-06-13 12:41:00 Man Denise spital [place] COMPREHENSIVE METABOLIC 2022-06-13 08:50:00 [facility] PANEL CBC WITH PLATELET AND 2022-06-13 08:50:00 [facility] DIFFERENTIAL ESTIMATED GFR 2022-06-13 08:50:00 [facility] POC GLUCOSE 2022-06-13 01:12:00 [facility] TROPONIN T 2022-06-12 22:48:00 Stephanie Saxena spital POC GLUCOSE 2022-06-12 21:05:00 [facility] sp[facility] [place] TROPONIN T 2022-06-12 19:50:[address] THORACIC SPINE WO 2022-06-12 19:48:54 [facility] CONTRAST CT LUMBAR SPINE WO 2022-06-12 19:48:54 [facility] CONTRAST CT CHEST WO CONTRAST 2022-06-12 19:48:54 [facility] POC GLUCOSE 2022-06-12 19:48:00 [facility] COVID-19 QUALITATIVE 2022-06-12 18:18:00 [facility] RT-PCR XR CHEST 1 VW PORTABLE 2022-06-12 17:45:00 [facility] ECG ED PRELIMINARY 2022-06-12 17:26:39 [facility] INTERPRETATION CBC WITH PLATELET AND 2022-06-12 16:33:[address] [facility] DIFFERENTIAL COMPREHENSIVE METABOLIC 2022-06-12 16:33:[address] [facility] PANEL TROPONIN T 2022-06-12 16:33:00 Stephanie Saxena spital B NATRIURETIC PEPTIDE 2022-06-12 16:33:[address] [facility] ESTIMATED GFR 2022-06-12 16:33:00 Ministerio Ortega spital ECG 12-LEAD 2022-06-12 16:28:25 Stephanie Saxena spital PTCA - Percutaneous [facility] transluminal coronary angioplasty Plan of Care Planned Activity Planned Date Details Comments Source Diagnostic Test 2023-01-22 CMP, serum or plasma [facility] Pending 00:00:00 [code = CMP, serum or Practi ce plasma] Diagnostic Test 2023-01-22 HbA1c (hemoglobin [facility] Pending 00:00:00 A1c), blood [code = Practice HbA1c (hemoglobin A1c), blood] Diagnostic Test 2023-01-22 TSH, serum or plasma [facility] Pending 00:00:00 [code = TSH, serum or Practi ce plasma] Diagnostic Test 2023-01-22 lipid panel, serum [facility] Pending 00:00:00 [code = lipid panel, Practic e serum] Future Scheduled Test 2023-01-12 COVID-19 VACCINE (#1) [facility] 23:51:46 [code = COVID-19 VACCINE (#1)] Future Scheduled Test 2023-01-12 DIABETES: RETINAL EYE [facility] 23:51:46 EXAM [code = DIABETES: RETINAL EYE EXAM] Future Scheduled Test 2023-01-12 DIABETIC FOOT EXAM [facility] 23:51:46 [code = DIABETIC FOOT EXAM] Future Scheduled Test 2023-01-12 URINE MICROALBUMIN [facility] 23:51:46 [code = URINE MICROALBUMIN] Future Scheduled Test 2023-01-12 SHINGLES VACCINES (1 [facility] 23:51:46 of 2) [code = SHINGLES VACCINES (1 of 2)] Future Scheduled Test 2023-01-12 65+ PNEUMOCOCCAL [facility] 23:51:46 VACCINE (2 - PCV) [code = 65+ PNEUMOCOCCAL VACCINE (2 - PCV)] Future Scheduled Test 2023-01-12 INFLUENZA VACCINE [facility] 23:51:46 [code = INFLUENZA VACCINE] Future Appointment 2023-04-24 Sania Garcia [facility] 00:00:00 [id number] Jania Garcia; Practice [address], [place] [address] Instructions [facility] Practice Encounters Start End Encounter Admission Attending Care Care Encounter Source Date/Time Date/Time Type Type Clinicians Facility Department ID 2023-01-22 2023-01-22 Anna BOURGEO[place] - [id number] [address] [place] [address] 00:00:00 00:00:00 Kalin Caballero PA: [id number] Medical - Pract leni [place] [facility] [address], [place] [address] , Ph. 2023-01-12 2023-01-13 Emergency [facility] [id number] Univers 23:35:00 05:21:00 , Criss CEJA [id number] i [facility] [id number] [facility] [id number] [place] [address] [place] 2023-01-12 2023-01-13 Emergency [facility] [id number] Univers 23:35:00 05:21:00 , CRISS santos [facility] 2023-01-13 2023-01-13 Outpatient Franquiz_J VFP VFP [id number] [facility] 00:00:00 00:00:00 [id number] Family Practic e 2023-01-13 2023-01-13 Outpatient Franquiz_J VFP VFP [id number] [facility] 00:00:00 00:00:00 [id number] Family Practic e 2023-01-09 2023-01-09 Outpatient Villasana_T VFP VFP [id number] [facility] 00:00:00 00:00:00 _DNU [id number] Family Practic e 2023-01-09 2023-01-09 Outpatient Villasana_T VFP VFP [id number] [facility] 00:00:00 00:00:00 _DNU [id number] Family Practic e 2023-01-09 2023-01-09 Outpatient Franquiz_J VFP VFP [id number] [facility] 00:00:00 00:00:00 [id number] Family Practic e 2023-01-09 2023-01-09 Outpatient Franquiz_J VFP VFP [id number] [facility] 00:00:00 00:00:00 [id number] Family Practic e 2023-01-09 2023-01-09 Outpatient Villasana_T VFP VFP [id number] [facility] 00:00:00 00:00:00 _DNU [id number] Family Practic e 2023-01-09 2023-01-09 Outpatient Villasana_T VFP VFP 151 [id number] [facility] 00:00:00 00:00:00 _DNU [id number] Family Practic e 2023-01-01 2023-01-01 Leroy VFP [place] - [id number] [place] 00:00:00 00:00:00 Kalin Penaloza MD: [id number] Medical - Pract [facility]ly [facility] e [facility], [facility] [address], [place] [address] , Ph. 2022-12-22 2022-12-22 Outpatient Franquiz_J VFP VFP [id number] [facility] 00:00:00 00:00:00 [id number] Family Practic e 2022-12-22 2022-12-22 Outpatient Villasana_T VFP VFP [id number] [facility] 00:00:00 00:00:00 _DNU [id number] Family Practic e 2022-12-22 2022-12-22 Outpatient Franquiz_J VFP VFP [id number] [facility] 00:00:00 00:00:00 [id number] Family Practic e 2022-12-22 2022-12-22 Outpatient Villasana_T VFP VFP [id number] [facility] 00:00:00 00:00:00 _DNU [id number] Family Practic e 2022-12-08 2022-12-08 Outpatient Franquiz_J VFP VFP [id number] [facility] 00:00:00 00:00:00 [id number] Family Practic e 2022-12-08 2022-12-08 Outpatient Villasana_T VFP VFP [id number] [facility] 00:00:00 00:00:00 _DNU [id number] Family Practic e 2022-11-27 2022-11-27 Outpatient Franquiz_J VFP VFP [id number] [facility] 00:00:00 00:00:00 [id number] Family Practic e 2022-11-27 2022-11-27 Leroy VFP [place] - [id number] V illage 00:00:00 00:00:00 Kalin Penaloza MD: [id number] Medical - Pract [facility] - [facility], _[address], [place] [address] , Ph. 2022-11-25 2022-11-25 Outpatient Franquiz_J VFP VFP [id number] [id number] [facility] 00:00:00 00:00:00 [id number] Family Practic e 2022-10-26 2022-10-26 Outpatient Bernstein_H VFP VFP 151 [id number] [facility] 00:00:00 00:00:00 [id number] Family Practic e 2022-10-23 2022-10-23 Outpatient Bernstein_H VFP VFP 151 [id number] [facility] 00:00:00 00:00:00 [id number] Family Practic e 2022-08-04 2022-08-04 Outpatient Villasana_T VFP VFP 151 [id number] [facility] 00:00:00 00:00:00 _DNU [id number] Family Practic e 2022-07-28 2022-07-28 Anna B VFP [place] - [id number] [facility] 00:00:00 00:00:00 Kalin Caballero [facility] aissatou PA: 9055 Medical - Pract [facility], [facility] [address], [place] [address] , Ph. 2022-07-27 2022-07-27 Outpatient Bernstein_H VFP VFP 151 [id number] [facility] 00:00:00 00:00:00 [id number] Family Practic e 2022-07-21 2022-07-21 Outpatient Villasana_T VFP VFP 151 [id number] [facility] 00:00:00 00:00:00 _DNU [id number] Family Practic e 2022-07-21 2022-07-21 Azul VFP [place] - [id number] V illage 00:00:00 00:00:00 MD Fanta: [facility] 9055 [facility] [address], [facility] [address] , Ph. 2022-06-12 2022-06-13 Emergency Darío Harris [id number] Methodi 11:16:00 19:43:[address] Man Den[id number] [id number] Hospit a .[id number] l .8 2022-06-12 2022-06-13 Outpatient HOWIE [facility] [id number] 7726 [place] 00:00:00 00:00:[address] 2022-02-26 2022-02-26 Outpatient NAKIA LINDA [facility] [id number] [facility] 12:56:00 23:59:00 MICHELLE oviedo 2022-01-11 2022-01-12 Outpatient [facility] [id number] [facility] 01:30:00 12:00:00 ivelisse oviedo 2022-01-06 2022-01-06 Outpatient Villasana_T VFP VFP 151 [id number] [facility] 00:00:00 00:00:00 _DNU [id number] Family Practic e 2021-08-07 2021-08-07 Outpatient Bernstein_H VFP VFP 151 [id number] [facility] 11:47:00 11:47:00 [id number] Family Practic e 2021-08-07 2021-08-07 Outpatient Bernstein_H VFP VFP 151 [id number] [facility] 11:47:00 11:47:00 [id number] Family Practic e 2021-08-07 2021-08-07 Outpatient Bernstein_H VFP VFP 151 [id number] [facility] 11:47:00 11:47:00 [id number] Family Practic e 2021-08-07 2021-08-07 Outpatient Bernstein_H VFP VFP 151 [id number] [facility] 00:00:00 00:00:00 [id number] Family Practic e 2021-07-04 2021-07-04 Outpatient Bernstein_H VFP VFP 151 [id number] [facility] 03:00:00 03:00:00 [id number] Family Practic e 2021-07-04 2021-07-04 Outpatient Villasana_T VFP VFP 151 [id number] [place] 00:00:00 00:00:00 _VMS [id number] Family Practic e 2021-06-24 2021-06-24 Outpatient Bernstein_H VFP VFP 151 [id number] [facility] 01:58:00 01:58:00 [id number] Family Practic e 2021-06-24 2021-06-24 Anna B VFP [place] - [id number] 2 [place] 00:00:00 00:00:00 Kalin Caballero [facility] aissatou PA: 9055 Medical - Pract ic Jania VM_HOU_Memo e [facility] [address], [place] [address] , Ph. 2021-06-23 2021-06-23 Outpatient Bernstein_H VFP VFP 151 [id number] [facility] 02:37:00 02:37:00 [id number] Family Practic e 2021-04-29 2021-04-29 Outpatient Villasana_T VFP VFP 151 [id number] [facility] 08:39:00 08:39:00 _VMS 15037 Family Practic e 2021-03-19 2021-03-19 Outpatient Bernstein_H VFP VFP 151 [id number] [facility] 01:55:00 01:55:00 [id number] Family Practic e 2021-03-19 2021-03-19 Outpatient Villasana_T VFP VFP 151 [id number] [facility] 01:55:00 01:55:00 _VMS 46985 Family Practic e 2021-03-13 2021-03-13 Outpatient Villasana_T VFP VFP 151 [id number] [facility] 01:38:00 01:38:00 [id number] Family Practic e 2021-03-13 2021-03-13 Anna B VFP [place] - [id number] 1 [facility] 00:00:00 00:00:00 Kalin Caballero [facility] aissatou PA: 9055 Medical - Pract ic Jania VM_HOU_Memo e [facility] ([facility]) [address], [place] [address] , Ph. 2021-02-05 2021-02-05 Outpatient Villasana_T VFP VFP 151 [id number] [facility] 08:24:00 08:24:00 [id number] Family Practic e 2021-02-05 2021-02-05 Outpatient Bernstein_H VFP VFP 151 [id number] [facility] 08:24:00 08:24:00 [id number] Family Practic e 2021-02-04 2021-02-04 Outpatient Villasana_T VFP VFP 151 [id number] [place] 11:54:00 11:54:00 [id number] Family Practic e 2021-02-04 2021-02-04 Anna B VFP [place] - [id number] 5 [facility] 00:00:00 00:00:00 Federico, [facility] Velasquez aissatou PA: 9055 Medical - Pract Jania _[facility] ([facility]) [address], [place] [address] , Ph. 2020-10-28 2020-10-28 Outpatient Bernstein_H VFP VFP 151 [id number] [place] 12:57:00 12:57:00 [id number] Family Practic e 2020-10-28 2020-10-28 Outpatient Bernstein_H VFP VFP 151 [id number] [facility] 12:57:00 12:57:00 [id number] Family Practic e 2020-10-28 2020-10-28 Outpatient Bernstein_H VFP VFP 151 [id number] [facility] 12:57:00 12:57:00 [id number] Family Practic e 2020-10-16 2020-10-16 Outpatient Bernstein_H VFP VFP 151 [id number] [place] 12:05:00 12:05:00 [id number] Family Practic e 2020-09-25 2020-09-25 [facility]patient [facility] [id number] [address] [place] [address] 00:00:00 00:00:[address] 2020-07-16 2020-07-16 Outpatient Abreu_A VFP VFP [id number] [facility] 10:18:00 10:18:00 [id number] Family Practic e 2020-07-16 2020-07-16 Outpatient Abreu_A VFP VFP [id number] [place] 10:18:00 10:18:00 [id number] Family Practic e 2020-07-05 2020-07-05 Outpatient Abreu_A VFP VFP [id number] [facility] 10:35:00 10:35:00 [id number] Family Practic e 2020-07-04 2020-07-04 Outpatient Villasana_T VFP VFP 151 [id number] [facility] 02:46:00 02:46:00 [id number] Family Practic e 2020-07-04 2020-07-04 Anna B VFP [place] - [id number] 2 [facility] 00:00:00 00:00:00 Federico [facility] aissatou PA: 9055 Medical - Pract ic Jania GU_HOU_Memo e [facility] ([facility]) [address], [place] [address] , Ph. 2020-06-11 2020-06-11 Outpatient Abreu_A VFP VFP [id number] [facility] 08:19:00 08:19:00 [id number] Family Practic e 2020-06-11 2020-06-11 Outpatient Abreu_A VFP VFP [id number] [facility] 08:19:00 08:19:00 [id number] Family Practic e 2020-06-11 2020-06-11 Outpatient Abreu_A VFP VFP [id number] [facility] 08:19:00 08:19:00 [id number] Family Practic e 2020-06-11 2020-06-11 Outpatient Abreu_A VFP VFP [id number] [facility] 08:19:00 08:19:00 [id number] Family Practic e 2020-06-04 2020-06-04 Outpatient Villasana_T VFP VFP 151 [id number] [facility] 01:12:00 01:12:00 [id number] Family Practic e 2020-06-04 2020-06-04 Anna B VFP [place] - [id number] 2 [facility] 00:00:00 00:00:00 [facility] 9055 Medical - Pract ic Jania GU_HOU_Memo e [facility] ([facility]) [address], [place] [address] , Ph. 2020-05-30 2020-05-30 Outpatient Abreu_A VFP VFP [id number] [facility] 03:20:00 03:20:00 [id number] Family Practic e 2020-05-30 2020-05-30 Outpatient Villasana_T VFP VFP 151 [id number] [facility] 03:20:00 03:20:00 [id number] Family Practic e 2020-05-30 2020-05-30 Outpatient Abreu_A VFP VFP [id number] [facility] 03:20:00 03:20:00 [id number] Family Practic e 2020-04-26 2020-04-26 Outpatient Villasana_T VFP VFP [id number] [facility] 11:23:00 11:23:00 [id number] Family Practic e 2020-04-26 2020-04-26 Outpatient Abreu_A VFP VFP [id number] [facility] 11:23:00 11:23:00 [id number] Family Practic e 2020-04-23 2020-04-23 Outpatient Villasana_T VFP VFP [id number] [facility] 11:41:00 11:41:00 [id number] Family Practic e 2020-04-23 2020-04-23 Anna B VFP [place] - [id number] [address] [place] [address] 00:00:00 00:00:00 Kalin Caballero PA: 9055 Medical - Pract ic Jania GU[facility] ([facility]) [address], [place] [address] , Ph. 2020-04-12 2020-04-12 Outpatient ODHAV, [facility] [id number] [place] 00:00:00 00:00:[address] 2020-04-12 2020-04-12 Outpatient ODHAV, [facility] [id number] [place] 00:00:00 00:00:[address] 2020-04-11 2020-04-11 Outpatient ODHAV, [facility] [id number] [place] 00:00:00 00:00:[address] 2020-04-11 2020-04-11 Outpatient ODHAV, [facility] [id number] [place] 00:00:00 00:00:[address] 2020-02-07 2020-02-07 Outpatient Abreu_A VFP VFP [id number] [facility] 04:55:00 04:55:00 [id number] Family Practic e 2020-02-07 2020-02-07 Outpatient Abreu_A VFP VFP [id number] [facility] 04:55:00 04:55:00 [id number] Family Practic e 2020-02-07 2020-02-07 Outpatient Abreu_A VFP VFP [id number] [facility] 04:55:00 04:55:00 [id number] Family Practic e 2020-01-24 2020-01-24 Outpatient Villasana_T VFP P [id number] [facility] 11:17:00 11:17:00 [id number] Family Practic e 2020-01-24 2020-01-24 Anna B VFP [place] - [id number] 3 [facility] 00:00:00 00:00:00 Federico, [facility] Velasquez reyez PA: 9055 Medical - Pract ic Jania VM_HO_Memo e [facility] ([facility]) [address] [place] [address] , Ph. 2020-01-23 2020-01-23 Outpatient Villasana_T VFP [facility] 151 [id number] [facility] 02:20:00 02:20:00 [id number] Family Practic e 2019-10-17 2019-10-18 Outpatient DWIBHASHI, [facility] [id number] [place] 00:00:00 00:00:00 EARL [address] 2019-09-30 2019-09-30 Emergency ARMADA, [facility] [id number] [place] [address] 00:00:00 00:00:[address] 2019-07-19 2019-07-19 Outpatient Abreu_A P [facility] [id number] [facility] 09:32:00 09:32:00 [id number] Family Practic e 2019-06-20 2019-06-20 Anna B VFP [place] - [id number] 8 [facility] 00:00:00 00:00:00 Federico [facility] Velasquez barnesy PA: 9055 Family Practic Jania [address], [facility] [address], [place] [address] , Ph. 2019-05-26 2019-05-26 Anna B VFP [place] - [id number] 3 [facility] 00:00:00 00:00:00 Federico, [facility] Velasquez barnesy PA: 9055 Family Practic Jania [address], [facility] [address], [place] [address] , Ph. 2019-05-05 2019-05-05 Anna B VFP [place] - [id number] 3 [facility] 00:00:00 00:00:00 Federico [facility] Velasquez reyez PA: 9055 Family Practic Jania Practice - [address], [facility] [address], [place] [address] , Ph. 2019-03-27 2019-03-27 Anna Nolan [facility] [place] - [id number] 5 [facility] 00:00:00 00:00:00 Federico [facility] Velasquez reyez PA: 9055 Family Practic Jania Practice - [address], [facility] [address], [place] [address] , Ph. 2018-12-20 2018-12-20 Anna Nolan [facility] [place] - [id number] 9 [facility] 00:00:00 00:00:00 Federico [facility] Velasquez reyez PA: 9055 Family Practic Jania Practice - [address], [facility] [address], [place] [address] , Ph. 2018-08-10 2018-08-10 Outpatient Comprehen Comprehensi 7 [id number] eClinic 14:54:00 14:54:00 sive ve Heart alWor ut [facility] 2018-08-10 2018-08-10 Outpatient Comprehen Comprehensi 7 [id number] eClinic 14:54:00 14:54:00 sive ve Heart alWor ut [facility] 2018-03-21 2018-03-21 Outpatient Comprehen Comprehensi 6 [id number] eClinic 14:20:00 14:20:00 sive ve Heart alWor ut [facility] 2018-03-21 2018-03-21 Outpatient Comprehen Comprehensi 6 [id number] eClinic 14:20:00 14:20:00 sive ve Heart alWor ut [facility] 2017-10-25 2017-10-25 Outpatient Comprehen Comprehensi 6 [id number] eClinic 15:50:00 15:50:00 sive ve Heart alWor ut [facility] 2017-10-25 2017-10-25 Outpatient Comprehen Comprehensi 6 [id number] eClinic 15:50:00 15:50:00 sive ve Heart alWor ut [facility] 2017-09-09 2017-09-09 Outpatient Comprehen Comprehensi 6 [id number] eClinic 09:10:00 09:10:00 sive ve Heart alWor ut [facility] Care [facility] 2017-09-09 2017-09-09 Outpatient Comprehen Comprehensi 6 [id number] eClinic 09:10:00 09:10:00 sive ve Heart alWor ut Heart Care Care 2017-09-08 2017-09-08 Outpatient Comprehen Comprehensi 6 [id number] eClinic 15:19:00 15:19:00 sive ve Heart alWor ut [facility] Care Care 2017-09-08 2017-09-08 Outpatient Comprehen Comprehensi 6 [id number] eClinic 15:19:00 15:19:00 sive ve Heart alWor ut [facility] Care Care 2017-07-15 2017-07-15 Outpatient Comprehen Comprehensi 6 [id number] eClinic 15:21:00 15:21:00 sive ve Heart alWor ut [facility] 2017-07-15 2017-07-15 Outpatient Comprehen Comprehensi 6 [id number] eClinic 15:21:00 15:21:00 sive ve Heart alWor ut Heart Care Care 2017-07-15 2017-07-15 Outpatient Comprehen Comprehensi 6 [id number] eClinic 14:59:00 14:59:00 sive ve Heart alWor ut Heart Care Care 2017-07-15 2017-07-15 Outpatient Comprehen Comprehensi 6 [id number] eClinic 14:59:00 14:59:00 sive ve Heart alWor ut [facility] 2017-07-02 2017-07-02 Outpatient Comprehen Comprehensi 6 [id number] eClinic 09:57:00 09:57:00 sive ve Heart alWor ut [facility] Care Care 2017-07-02 2017-07-02 Outpatient Comprehen Comprehensi 6 [id number] eClinic 09:57:00 09:57:00 sive ve Heart alWor ut Heart Care Care 2017-06-30 2017-06-30 Outpatient Comprehen Comprehensi 5 [id number] eClinic 14:40:00 14:40:00 sive ve Heart alWor ut [facility] 2017-06-30 2017-06-30 Outpatient Comprehen Comprehensi 5 [id number] eClinic 14:40:00 14:40:00 sive ve Heart alWor ut [facility] 2017-06-29 2017-06-29 Outpatient Comprehen Comprehensi 6 [id number] eClinic 17:48:00 17:48:00 sive ve Heart alWor ut Heart Care Care 2017-06-29 2017-06-29 Outpatient Comprehen Comprehensi 6 [id number] eClinic 17:48:00 17:48:00 sive ve Heart alWor ut [facility] Care Care 2017-06-09 2017-06-09 Outpatient Comprehen Comprehensi 6 [id number] eClinic 15:39:00 15:39:00 sive ve Heart alWor ut [facility] Care Care 2017-06-09 2017-06-09 Outpatient Comprehen Comprehensi 6 [id number] eClinic 15:39:00 15:39:00 sive ve Heart alWor ut Heart Care Care 2017-02-24 2017-02-24 Outpatient Comprehen Comprehensi 5 [id number] eClinic 14:40:00 14:40:00 sive ve Heart alWor ut Heart Care Care 2017-02-24 2017-02-24 Outpatient Comprehen Comprehensi 5 [id number] eClinic 14:40:00 14:40:00 sive ve Heart alWor ut Heart Care Care 2017-02-23 2017-02-23 Outpatient Comprehen Comprehensi 5 [id number] eClinic 15:47:00 15:47:00 sive ve Heart alWor ut [facility] Care Care 2017-02-23 2017-02-23 Outpatient Comprehen Comprehensi 5 [id number] eClinic 15:47:00 15:47:00 sive ve Heart alWor ut [facility] Care Care 2017-01-27 2017-01-27 Outpatient Comprehen Comprehensi 5 [id number] eClinic 11:02:00 11:02:00 sive ve Heart alWor ut Heart Care Care 2017-01-27 2017-01-27 Outpatient Comprehen Comprehensi 5 [id number] eClinic 11:02:00 11:02:00 sive ve Heart alWor ut Heart Care Care 2017-01-04 2017-01-04 Outpatient Comprehen Comprehensi 5 [id number] eClinic 14:15:00 14:15:00 sive ve Heart alWor ut Heart Care Care 2017-01-04 2017-01-04 Outpatient Comprehen Comprehensi 5 [id number] eClinic 14:15:00 14:15:00 sive ve Heart alWor ut Heart Care Care 2016-12-23 2016-12-23 Outpatient Comprehen Comprehensi 5 [id number] eClinic 10:54:00 10:54:00 sive ve Heart alWor ut Heart Care Care 2016-12-23 2016-12-23 Outpatient Comprehen Comprehensi 5 [id number] eClinic 10:54:00 10:54:00 sive ve Heart alWor ut Heart Care Care 2016-12-22 2016-12-22 Outpatient Comprehen Comprehensi 5 [id number] eClinic 10:40:00 10:40:00 sive ve Heart alWor ut Heart Care Care 2016-12-22 2016-12-22 Outpatient Comprehen Comprehensi 5 [id number] eClinic 10:40:00 10:40:00 sive ve Heart alWor ut Heart Care Care 2016-12-16 2016-12-16 Outpatient Comprehen Comprehensi 5 [id number] eClinic 15:10:00 15:10:00 sive ve Heart alWor ut Heart Care Care 2016-12-16 2016-12-16 Outpatient Comprehen Comprehensi 5 [id number] eClinic 15:10:00 15:10:00 sive ve Heart alWor ut Heart Care Care 2016-12-15 2016-12-15 Outpatient Comprehen Comprehensi 5 [id number] eClinic 15:54:00 15:54:00 sive ve Heart alWor ut Heart Care Care 2016-12-15 2016-12-15 Outpatient Comprehen Comprehensi 5 [id number] eClinic 15:54:00 15:54:00 sive ve Heart alWor ut Heart Care Care 2016-10-01 2016-10-01 lab slip nullFlavo Comprehensi 2e5 2uz79-6 Memoria 17:50:00 17:50:00 for lipid r ve Heart 490-4347-9 l panel Care PA [id number] Haylee nn a9b94e 2016-10-01 2016-10-01 lab slip nullFlavo Comprehensi 2e5 9nn75-2 Memoria 17:50:00 17:50:00 for lipid r ve Heart 490-4347-9 l panel Care PA [id number] Haylee nn a9b94e 2016-10-01 2016-10-01 lab slip nullFlavo Comprehensi 2e5 1ti63-0 Memoria 17:50:00 17:50:00 for lipid r ve Heart 490-4347-9 l panel Care [place] [id number] [facility] nn a9b94e 2016-10-01 2016-10-01 Outpatient Comprehen Comprehensi 5 [id number] eClinic 11:50:00 11:50:[facility] [place] 2016-10-01 2016-10-01 Outpatient Comprehen Comprehensi 5 [id number] eClinic 11:50:00 11:50:00 [facility] Care [place] 2016-09-29 2016-09-29 refill for nullFlavo Comprehensi 8 8v312q4-3 Memoria 21:09:00 21:09:00 Praulent r ve Heart 203-426e-a l sent to Care [place] [id number] [facility] nn express 9653e4 scripts 2016-09-29 2016-09-29 refill for nullFlavo Comprehensi 4 097s209-1 Memoria 21:09:00 21:09:00 Praulent r ve Heart 146-4180-b l [address] Care [address]ot615c [facility] nn express 2b1a11 scripts 2016-09-29 2016-09-29 refill for nullFlavo Comprehensi 8 8m160n1-4 Memoria 21:09:00 21:09:00 Praulent r ve Heart 203-426e-a l sent to Care [place] [id number] [facility] nn express 9653e4 scripts 2016-09-29 2016-09-29 refill for nullFlavo Comprehensi 4 759f101-4 Memoria 21:09:00 21:09:00 Praulent r ve Heart 146-4180-b l [facility] nn express 2b1a11 scripts 2016-09-29 2016-09-29 refill for nullFlavo Comprehensi 4 780b165-5 Memoria 21:09:00 21:09:00 Praulent r ve Heart 146-4180-b l [facility] nn express 2b1a11 scripts 2016-09-29 2016-09-29 refill for nullFlavo Comprehensi 8 [id number] Memoria 21:09:00 21:09:00 Praulent r ve Heart 203-426e-a l sent to Care PA [id number] [facility] nn express 9653e4 scripts 2016-09-29 2016-09-29 Outpatient Comprehen Comprehensi 5 [id number] eClinic 15:09:00 15:09:00 sive ve Heart alWor ut Heart Care PA Care PA 2016-09-29 2016-09-29 Outpatient Comprehen Comprehensi 5 [id number] eClinic 15:09:00 15:09:00 sive ve Heart alWor ut Heart Care PA Care PA 2016-09-21 2016-09-21 message nullFlavo Comprehensi 21fc a427-a Memoria 23:06:00 23:06:00 r ve Heart 9k4-28af-0 l Care PA 291-0a6fde [facility] 3dfa6d 2016-09-21 2016-09-21 message nullFlavo Comprehensi ec27 b4a0-5 Memoria 23:06:00 23:06:00 r ve Heart 872-4150-8 l Care PA [id number] [facility] nn 834e20 2016-09-21 2016-09-21 message nullFlavo Comprehensi 96e8 da48-4 Memoria 23:06:00 23:06:00 r ve Heart 528-4b66-b l Care PA 7bc-2c8d35 [facility] kinza b9cd2e 2016-09-21 2016-09-21 message nullFlavo Comprehensi 21fc a427-a Memoria 23:06:00 23:06:00 r ve Heart 0i6-13yh-1 l Care PA 291-0a6fde [facility] 3dfa6d 2016-09-21 2016-09-21 message nullFlavo Comprehensi ec27 b4a0-5 Memoria 23:06:00 23:06:00 r ve Heart 872-4150-8 l Care PA [id number] [facility] nn 834e20 2016-09-21 2016-09-21 message nullFlavo Comprehensi 96e8 da48-4 Memoria 23:06:00 23:06:00 r ve Heart 528-4b66-b l Care PA 7bc-2c8d35 [facility] b9cd2e 2016-09-21 2016-09-21 message nullFlavo Comprehensi ec27 b4a0-5 Memoria 23:06:00 23:06:00 r ve Heart 872-4150-8 l Care PA [id number] Haylee nn 834e20 2016-09-21 2016-09-21 message nullFlavo Comprehensi 96e8 da48-4 Memoria 23:06:00 23:06:00 r ve Heart 528-4b66-b l Care PA 7bc-2c8d35 Haylee nn b9cd2e 2016-09-21 2016-09-21 message nullFlavo Comprehensi 21fc a427-a Memoria 23:06:00 23:06:00 r ve Heart 5a5-89wo-0 l Care PA 291-0a6fde Haylee nn 3dfa6d 2016-09-21 2016-09-21 Outpatient Comprehen Comprehensi 5 [id number] eClinic 17:06:00 17:06:00 sive ve Heart alWor ut Heart Care PA Care PA 2016-09-21 2016-09-21 Outpatient Comprehen Comprehensi 5 [id number] eClinic 17:06:00 17:06:00 sive ve Heart alWor ut Heart Care PA Care PA 2016-09-09 2016-09-09 Unknown nullFlavo Comprehensi 944d 69ea-9 Memoria 13:57:00 13:57:00 r ve Heart 1e3-2q2y-l l Care PA [id number] Haylee nn 1edaa0 2016-09-09 2016-09-09 Unknown nullFlavo Comprehensi 1264 d830-2 Memoria 13:57:00 13:57:00 r ve Heart 751-4316-a l Care PA [id number] Haylee nn 1c00d1 2016-09-09 2016-09-09 Unknown nullFlavo Comprehensi 1c2e 55dc-c Memoria 13:57:00 13:57:00 r ve Heart 72f-4b17-9 l Care PA r14-5q18ep Haylee nn b0ce15 2016-09-09 2016-09-09 Unknown nullFlavo Comprehensi 505b 96eb-a Memoria 13:57:00 13:57:00 r ve Heart 3j8-7par-2 l Care PA 1cd-1a26f0 Haylee nn 7c24a3 2016-09-09 2016-09-09 Unknown nullFlavo Comprehensi 240a f2f8-5 Memoria 13:57:00 13:57:00 r ve Heart 0e1-04a4-p l Care PA [id number]-fb6b40 Haylee nn 713627 5412-12-28 2016-09-09 Unknown nullFlavo Comprehensi 944d 69ea-9 Memoria 13:57:00 13:57:00 r ve Heart 5m8-7l1e-l l Care PA [id number] Haylee nn 1edaa0 2016-09-09 2016-09-09 Unknown nullFlavo Comprehensi 1264 d830-2 Memoria 13:57:00 13:57:00 r ve Heart 751-4316-a l Care PA [id number] Haylee nn 1c00d1 2016-09-09 2016-09-09 Unknown nullFlavo Comprehensi 1c2e 55dc-c Memoria 13:57:00 13:57:00 r ve Heart 72f-4b17-9 l Care PA [id number] Haylee nn b0ce15 2016-09-09 2016-09-09 Unknown nullFlavo Comprehensi 505b 96eb-a Memoria 13:57:00 13:57:00 r ve Heart 6f7-6uwo-0 l Care PA 1cd-1a26f0 Haylee nn 7c24a3 2016-09-09 2016-09-09 Unknown nullFlavo Comprehensi 240a f2f8-5 Memoria 13:57:00 13:57:00 r ve Heart 2q8-86s4-r l Care PA [id number]-fb6b40 Haylee nn 913271 6224-12-28 2016-09-09 Unknown nullFlavo Comprehensi 505b 96eb-a Memoria 13:57:00 13:57:00 r ve Heart 3l7-6bzq-6 l Care PA 1cd-1a26f0 Haylee nn 7c24a3 2016-09-09 2016-09-09 Unknown nullFlavo Comprehensi 240a f2f8-5 Memoria 13:57:00 13:57:00 r ve Heart 1b4-03b5-w l Care PA 648-fb6b40 [facility] nn 864775 3891-12-28 2016-09-09 Unknown nullFlavo Comprehensi 1264 d830-2 Memoria 13:57:00 13:57:00 r ve Heart 751-4316-a l Care PA [id number] Haylee nn 1c00d1 2016-09-09 2016-09-09 Unknown nullFlavo Comprehensi 1c2e 55dc-c Memoria 13:57:00 13:57:00 r ve Heart 72f-4b17-9 l Care PA [id number] [facility] nn b0ce15 2016-09-09 2016-09-09 Unknown nullFlavo Comprehensi 944d 69ea-9 Memoria 13:57:00 13:57:00 r ve Heart 3c3-8r8y-m l Care PA u41-09yv1p [facility] nn 1edaa0 2016-09-09 2016-09-09 Outpatient Comprehen Comprehensi 5 [id number] eClinic 07:57:00 07:57:00 [facility] Care PA 2016-09-09 2016-09-09 Outpatient Comprehen Comprehensi 5 [id number] eClinic 07:57:00 07:57:00 [facility] Care PA 2016-08-17 2016-08-17 Unknown nullFlavo Comprehensi f9d9 f906-3 Memoria 21:00:00 21:00:00 r ve Heart n62-2949-r l Care PA 28b-a3ace5 [facility] nn 633109 9845-12-05 2016-08-17 Unknown nullFlavo Comprehensi 931f bc7f-6 Memoria 21:00:00 21:00:00 r ve Heart 580-4f75-b l Care PA 18a-eab1ef Haylee nn 77d8ed 2016-08-17 2016-08-17 Unknown nullFlavo Comprehensi 3d98 abd1-d Memoria 21:00:00 21:00:00 r ve Heart 845-422c-a l Care PA 72b-3f8e58 [facility] nn e158be 2016-08-17 2016-08-17 Unknown nullFlavo Comprehensi a315 8e21-e Memoria 21:00:00 21:00:00 r ve Heart 880-488d-b l Care PA 7bf-86a827 Haylee nn e93f32 2016-08-17 2016-08-17 Unknown nullFlavo Comprehensi f9d9 f906-3 Memoria 21:00:00 21:00:00 r ve Heart c94-4231-q l Care PA 28b-a3ace5 [facility] nn 843950 2452-12-05 2016-08-17 Unknown nullFlavo Comprehensi 931f bc7f-6 Memoria 21:00:00 21:00:00 r ve Heart 580-4f75-b l Care PA 18a-eab1ef Haylee nn 77d8ed 2016-08-17 2016-08-17 Unknown nullFlavo Comprehensi 3d98 abd1-d Memoria 21:00:00 21:00:00 r ve Heart 845-422c-a l Care PA 72b-3f8e58 [facility] e158be 2016-08-17 2016-08-17 Unknown nullFlavo Comprehensi a315 8e21-e Memoria 21:00:00 21:00:00 r ve Heart [id number]-b l Care PA [id number] [facility] [id number] 2016-08-17 2016-08-17 Unknown nullFlavo Comprehensi a315 8e21-e Memoria 21:00:00 21:00:00 r ve Heart [id number] l Care PA [id number] [facility] [id number] 2016-08-17 2016-08-17 Unknown nullFlavo Comprehensi [id number] bc7f-6 Memoria 21:00:00 21:00:00 r ve Heart [id number]-b l Care PA [id number] Haylee nn [id number] 2016-08-17 2016-08-17 Unknown nullFlavo Comprehensi 3d98 abd1-d Memoria 21:00:00 21:00:00 r ve Heart [id number]-a l Care PA [id number] [facility] nn [id number] 2016-08-17 2016-08-17 Unknown nullFlavo Comprehensi f9d9 f906-3 Memoria 21:00:00 21:00:00 r ve Heart [id number] l Care PA [id number] [facility] nn [id number] 2760-12-05 2016-08-17 Outpatient Comprehen Comprehensi 5 [id number] eClinic 15:00:00 15:00:00 sive ve Heart alWor ut Heart Care PA Care PA 2016-08-17 2016-08-17 Outpatient Comprehen Comprehensi 5 [id number] eClinic 15:00:00 15:00:00 sive ve Heart alWor ut Heart Care PA Care PA 2016-08-13 2016-08-132015 nullFlavo Comprehensi 6f9d 1f79-1 Memoria 23:33:00 23:33:00 MEDICARE r ve Heart [id number] l Care PA [id number] [facility] nn [id number] 2016-08-13 2016-08-13 2016 nullFlavo Comprehensi f670 [id number] Memoria 23:33:00 23:33:00 MEDICARE r ve Heart [id number] l Care PA [id number] [facility] nn [id number] 5823-12-01 2016-08-13 2016 nullFlavo Comprehensi 6b6c [id number]-a Memoria 23:33:00 23:33:00 MEDICARE r ve Heart [id number] l Care PA [id number] [facility] nn [id number] 2016-08-13 2016-08-13 2016 nullFlavo Comprehensi c174 612c-1 Memoria 23:33:00 23:33:00 MEDICARE r ve Heart [id number]-4796-[id number] l Care PA [id number] [facility] nn [id number] 2016-08-13 2016-08-13 2016 nullFlavo Comprehensi f618 7811-4 Memoria 23:33:00 23:33:00 MEDICARE r ve Heart 6h9-2y65-d l Care PA 401-rco195 [facility] nn 4y2566 2016-08-13 2016-08-13 2016 nullFlavo Comprehensi a51d d5d9-b Memoria 23:33:00 23:33:00 MEDICARE r ve Heart c65-81y7-4 l Care PA 44c-9d4457 [facility] nn f33c7a 2016-08-13 2016-08-13 2016 nullFlavo Comprehensi 6f9d 1f79-1 Memoria 23:33:00 23:33:00 MEDICARE r ve Heart 103-463c-8 l Care PA 2u2-4303ec [facility] nn 79853z 2016-08-13 2016-08-13 2016 nullFlavo Comprehensi f670 13c0-8 [facility]oria 23:33:00 23:33:00 MEDICARE r ve Heart 0r2-9768-2 l Care PA s37-23yk41 [facility] nn 192690 6050-12-01 2016-08-13 2016 nullFlavo Comprehensi 6b6c 45d1-a [facility]oria 23:33:00 23:33:00 MEDICARE r ve Heart h9r-0l66-4 l Care PA 9p8-t0s279 [facility] nn 43b0d6 2016-08-13 2016-08-13 2016 nullFlavo Comprehensi c174 612c-1 [facility] 23:33:00 23:33:00 MEDICARE r ve Heart 59a-4796-a Care PA [id number]-[id number] [facility] nn 76192k 2016-08-13 2016-08-13 2016 nullFlavo Comprehensi f618 7811-4 [facility]oria 23:33:00 23:33:00 MEDICARE r ve Heart 0c2-3v56-q Care PA 401-mus058 [facility] nn 2q7786 2016-08-13 2016-08-13 2016 nullFlavo Comprehensi a51d d5d9-b [facility]oria 23:33:00 23:33:00 MEDICARE r ve Heart i52-40o0-9 Care PA 44c-5k7262 [facility] f33c7a 2016-08-13 2016-08-13 2016 nullFlavo Comprehensi 6f9d 1f79-1 Memoria 23:33:00 23:33:00 MEDICARE r ve Heart 103-463c-8 l Care PA 9g0-1017ox [facility] nn 88532z 2016-08-13 2016-08-13 2016 nullFlavo Comprehensi f618 7811-4 [facility]oria 23:33:00 23:33:00 MEDICARE r ve Heart 5o2-7m30-r l Care PA 401-spm859 [facility] nn 9o2975 2016-08-13 2016-08-132015 nullFlavo Comprehensi a51d d5d9-b [facility] 23:33:00 23:33:00 MEDICARE r ve Heart c19-75f0-7 l Care PA 44c-5n2456 [facility] f33c7a 2016-08-13 2016-08-132015 nullFlavo Comprehensi 6b6c 45d1-a [facility] 23:33:00 23:33:00 MEDICARE r ve Heart j5t-3i09-6 l Care PA 2e3-v2s563 [facility] nn 43b0d6 2016-08-13 2016-08-132015 nullFlavo Comprehensi c174 612c-1 [facility] 23:33:00 23:33:00 MEDICARE r ve Heart 59a-4796-a l Care PA [id number] [facility] nn 38227d 2016-08-13 2016-08-132015 nullFlavo Comprehensi f670 13c0-8 [facility] 23:33:00 23:33:00 MEDICARE r ve Heart 0o6-9257-1 l Care PA b08-84im85 [facility] nn 936366 8223-12-01 2016-08-13 Outpatient Comprehen Comprehensi 5 74876 [facility] 17:33:00 17:33:00 sive ve Heart alWor ut Heart Care PA Care PA 2016-08-13 2016-08-13 Outpatient Comprehen Comprehensi 5 39701 [facility] 17:33:00 17:33:00 sive ve Heart alWor ut Heart Care PA Care PA 2016-07-15 2016-07-15 Unknown nullFlavo Comprehensi 099c 45c7-4 [facility]oria 19:30:00 19:30:00 r ve Heart 032-44c1-9 l Care PA 37d-7f9a63 [facility] nn 2effcb 2016-07-15 2016-07-15 Unknown nullFlavo Comprehensi b473 4e1f-b [facility]oria 19:30:00 19:30:00 r ve Heart 758-473c-8 l Care PA dd1-6ed8a5 [facility] nn fcd3d9 2016-07-15 2016-07-15 Unknown nullFlavo Comprehensi daaa 230c-a [facility] 19:30:00 19:30:00 r ve Heart bd4-4c17-a l Care PA dd6-2acc59 [facility] nn 5ebd7f 2016-07-15 2016-07-15 Unknown nullFlavo Comprehensi c29c 6214-1 [facility] 19:30:00 19:30:00 r ve Heart 64e-44e6-8 l Care PA 254-ca35b1 [facility] nn 77e90c 2016-07-15 2016-07-15 Unknown nullFlavo Comprehensi d634 6e1a-f [facility] 19:30:00 19:30:00 r ve Heart af0-4f08-8 l Care PA 75d-2bc21f [facility] nn 14ad74 2016-07-15 2016-07-15 Unknown nullFlavo Comprehensi d195 fcc9-8 [facility]oria 19:30:00 19:30:00 r ve Heart 1l0-8t60-t l Care PA 77b-559771 [facility] nn e4e07c 2016-07-15 2016-07-15 Unknown nullFlavo Comprehensi f2c8 5afb-9 [facility] 19:30:00 19:30:00 r ve Heart 64a-4f0d-b l Care PA fe6-27c784 [facility] nn k4q284 2016-07-15 2016-07-15 Unknown nullFlavo Comprehensi 099c 45c7-4 [facility] 19:30:00 19:30:00 r ve Heart 032-44c1-9 l Care PA 37d-7f9a63 [facility] nn 2effcb 2016-07-15 2016-07-15 Unknown nullFlavo Comprehensi b473 4e1f-b [facility] 19:30:00 19:30:00 r ve Heart 758-473c-8 l Care PA dd1-6ed8a5 [facility] nn fcd3d9 2016-07-15 2016-07-15 Unknown nullFlavo Comprehensi daaa 230c-a [facility] 19:30:00 19:30:00 r ve Heart bd4-4c17-a l Care PA dd6-2acc59 [facility] nn 5ebd7f 2016-07-15 2016-07-15 Unknown nullFlavo Comprehensi c29c 6214-1 [facility] 19:30:00 19:30:00 r ve Heart 64e-44e6-8 l Care PA 254-ca35b1 [facility] nn 77e90c 2016-07-15 2016-07-15 Unknown nullFlavo Comprehensi d634 6e1a-f [facility]oria 19:30:00 19:30:00 r ve Heart af0-4f08-8 l Care PA 75d-2bc21f [facility] nn 14ad74 2016-07-15 2016-07-15 Unknown nullFlavo Comprehensi d195 fcc9-8 [facility] 19:30:00 19:30:00 r ve Heart 6d4-3u99-b l Care PA 77b-275988 [facility] e4e07c 2016-07-15 2016-07-15 Unknown nullFlavo Comprehensi f2c8 5afb-9 [facility]oria 19:30:00 19:30:00 r ve Heart 64a-4f0d-b l Care PA fe6-35g771 [facility] b4t124 2016-07-15 2016-07-15 Unknown nullFlavo Comprehensi 099c 45c7-4 [facility] 19:30:00 19:30:00 r ve Heart 032-44c1-9 l Care PA 37d-7f9a63 [facility] nn 2effcb 2016-07-15 2016-07-15 Unknown nullFlavo Comprehensi d634 6e1a-f [facility]oria 19:30:00 19:30:00 r ve Heart af0-4f08-8 l Care PA 75d-2bc21f [facility] nn 14ad74 2016-07-15 2016-07-15 Unknown nullFlavo Comprehensi d195 fcc9-8 [facility]oria 19:30:00 19:30:00 r ve Heart 9i8-6e11-o l Care PA 77b-925032 [facility] e4e07c 2016-07-15 2016-07-15 Unknown nullFlavo Comprehensi f2c8 5afb-9 [facility] 19:30:00 19:30:00 r ve Heart 64a-4f0d-b l Care PA fe6-14h997 [facility] v5q395 2016-07-15 2016-07-15 Unknown nullFlavo Comprehensi daaa 230c-a [facility] 19:30:00 19:30:00 r ve Heart bd4-4c17-a l Care PA dd6-2acc59 [facility] nn 5ebd7f 2016-07-15 2016-07-15 Unknown nullFlavo Comprehensi c29c 6214-1 [facility] 19:30:00 19:30:00 r ve Heart 64e-44e6-8 l Care PA 254-ca35b1 [facility] nn 77e90c 2016-07-15 2016-07-15 Unknown nullFlavo Comprehensi b473 4e1f-b [facility] 19:30:00 19:30:00 r ve Heart 758-473c-8 l Care PA dd1-6ed8a5 [facility] nn fcd3d9 2016-07-15 2016-07-15 message nullFlavo Comprehensi 0427 719b-e [facility] 15:31:00 15:31:00 r ve Heart daa-4106-a l Care PA p06-29620v [facility] nn 5c2231 2016-07-15 2016-07-15 message nullFlavo Comprehensi 5446 3b5c-6 [facility] 15:31:00 15:31:00 r ve Heart eb2-42f1-b l Care PA eb1-4k9838 [facility] nn 0edddd 2016-07-15 2016-07-15 message nullFlavo Comprehensi 3733 8d9b-6 [facility] 15:31:00 15:31:00 r ve Heart 7ba-4002-9 l Care PA o93-2dd6n6 [facility] nn 8628dc 2016-07-15 2016-07-15 message nullFlavo Comprehensi 8647 85b7-a [facility] 15:31:00 15:31:00 r ve Heart bec-48a3-8 l Care PA 9fd-b74e2b [facility] nn fxb904 2016-07-15 2016-07-15 message nullFlavo Comprehensi 46f3 9e8f-b [facility] 15:31:00 15:31:00 r ve Heart de9-40d1-a l Care PA 26c-e1fa4e [facility] nn f5b0fe 2016-07-15 2016-07-15 message nullFlavo Comprehensi eebe e590-4 [facility]oria 15:31:00 15:31:00 r ve Heart 4fb-4565-a l Care PA g13-768074 [facility] nn f174a4 2016-07-15 2016-07-15 message nullFlavo Comprehensi f9b3 c1d8-b [facility]oria 15:31:00 15:31:00 r ve Heart e58-52f6-3 l Care PA ce2-j7908t [facility] nn 765cf8 2016-07-15 2016-07-15 message nullFlavo Comprehensi 0427 719b-e [facility]oria 15:31:00 15:31:00 r ve Heart daa-4106-a l Care PA a94-89853n [facility] nn 1g3897 2016-07-15 2016-07-15 message nullFlavo Comprehensi 5446 3b5c-6 [facility] 15:31:00 15:31:00 r ve Heart eb2-42f1-b l Care PA eb1-1n8185 [facility] nn 0edddd 2016-07-15 2016-07-15 message nullFlavo Comprehensi 3733 8d9b-6 [facility] 15:31:00 15:31:00 r ve Heart 7ba-4002-9 l Care PA e12-6ag3t6 [facility] nn 8628dc 2016-07-15 2016-07-15 message nullFlavo Comprehensi 8647 85b7-a [facility]oria 15:31:00 15:31:00 r ve Heart bec-48a3-8 l Care PA 9fd-b74e2b [facility] nn uix146 2016-07-15 2016-07-15 message nullFlavo Comprehensi 46f3 9e8f-b [facility] 15:31:00 15:31:00 r ve Heart de9-40d1-a l Care PA 26c-e1fa4e [facility] nn f5b0fe 2016-07-15 2016-07-15 message nullFlavo Comprehensi eebe e590-4 [facility] 15:31:00 15:31:00 r ve Heart 4fb-4565-a l Care PA h51-879164 [facility] nn f174a4 2016-07-15 2016-07-15 message nullFlavo Comprehensi f9b3 c1d8-b [facility]oria 15:31:00 15:31:00 r ve Heart y32-93y4-4 l Care PA ce2-l8715c [facility] nn 765cf8 2016-07-15 2016-07-15 message nullFlavo Comprehensi 0427 719b-e [facility]oria 15:31:00 15:31:00 r ve Heart daa-4106-a l Care PA v17-27376q [facility] nn 9w2712 2016-07-15 2016-07-15 message nullFlavo Comprehensi 46f3 9e8f-b [facility]oria 15:31:00 15:31:00 r ve Heart de9-40d1-a l Care PA 26c-e1fa4e [facility] nn f5b0fe 2016-07-15 2016-07-15 message nullFlavo Comprehensi eebe e590-4 [facility] 15:31:00 15:31:00 r ve Heart 4fb-4565-a l Care PA p41-344539 [facility] nn f174a4 2016-07-15 2016-07-15 message nullFlavo Comprehensi f9b3 c1d8-b [facility]oria 15:31:00 15:31:00 r ve Heart e70-30b0-5 l Care PA ce2-t5368i [facility] nn 765cf8 2016-07-15 2016-07-15 message nullFlavo Comprehensi 3733 8d9b-6 [facility] 15:31:00 15:31:00 r ve Heart 7ba-4002-9 l Care PA o72-1ec8r9 [facility] nn 8628dc 2016-07-15 2016-07-15 message nullFlavo Comprehensi 8647 85b7-a [facility] 15:31:00 15:31:00 r ve Heart bec-48a3-8 l Care PA 9fd-b74e2b [facility] nn zed314 2016-07-15 2016-07-15 message nullFlavo Comprehensi 5446 3b5c-6 [facility] 15:31:00 15:31:00 r ve Heart eb2-42f1-b l Care PA eb1-9r1906 [facility] nn 0edddd 2016-07-15 2016-07-15 message nullFlavo Comprehensi 849e 8048-f [facility] 14:31:00 14:31:00 r ve Heart 57e-496a-a l Care PA 4g8-l3913t [facility] nn 32d15f 2016-07-15 2016-07-15 message nullFlavo Comprehensi 849e 8048-f [facility] 14:31:00 14:31:00 r ve Heart 57e-496a-a l Care PA 8j3-e4890i [facility] nn 32d15f 2016-07-15 2016-07-15 message nullFlavo Comprehensi 849e 8048-f [facility]oria 14:31:00 14:31:00 r ve Heart 57e-496a-a l Care PA 9p1-h8495t [facility] nn 32d15f 2016-07-15 2016-07-15 Outpatient Comprehen Comprehensi 5 11361 eClinic 13:30:00 13:30:00 sive ve Heart alWor ut Heart Care PA Care PA 2016-07-15 2016-07-15 Outpatient Comprehen Comprehensi 5 39481 eClinic 13:30:00 13:30:00 sive ve Heart alWor ut Heart Care PA Care PA 2016-07-15 2016-07-15 Outpatient Comprehen Comprehensi 5 00327 eClinic 09:31:00 09:31:00 sive ve Heart alWor ut Heart Care PA Care PA 2016-07-15 2016-07-15 Outpatient Comprehen Comprehensi 5 40045 eClinic 09:31:00 09:31:00 sive ve Heart alWor ut Heart Care PA Care PA 2016-06-17 2016-06-17 message re nullFlavo Comprehensi 6 x75959q-2 [facility]oria 20:50:00 20:50:00 PRALUENT r ve Heart maricruz-4f12-a l 75MG Care PA d0m-j99w27 [facility] nn 59558c 2016-06-17 2016-06-17 message re nullFlavo Comprehensi e z2d4c56-7 [facility]oria 20:50:00 20:50:00 PRALUENT r ve Heart 0y9-6z3o-1 l 75[facility] Care PA 3ac-45be96 [facility] nn 88176l 2016-06-17 2016-06-17 message re nullFlavo Comprehensi d z7637f1-m [facility] 20:50:00 20:50:00 PRALUENT r ve Heart 3s3-1yv3-6 l 75[facility] Care PA eff-a9q273 [facility] nn 4dbfd8 2016-06-17 2016-06-17 message re nullFlavo Comprehensi b y64997u-1 [facility] 20:50:00 20:50:00 PRALUENT r ve Heart 47a-4a88-9 l 75[facility] Care PA fc5-f31a2b [facility] nn a56a7e 2016-06-17 2016-06-17 message re nullFlavo Comprehensi 0 49459b6-1 [facility] 20:50:00 20:50:00 PRALUENT r ve Heart 5t2-5g39-t l [facility] Care PA 6u3-80jh23 [facility] nn fe2fc8 2016-06-17 2016-06-17 message re nullFlavo Comprehensi 5 1n164vq-l [facility]oria 20:50:00 20:50:00 PRALUENT r ve Heart 6u7-6z2c-s l 75[facility] Care PA 7a4-1383a8 [facility] nn 5a2cfe 2016-06-17 2016-06-17 message re nullFlavo Comprehensi 3 28yq5t5-s [facility]oria 20:50:00 20:50:00 PRALUENT r ve Heart 820-4b94-8 l 75[facility] Care PA fc5-983516 [facility] nn 433fef 2016-06-17 2016-06-17 message re nullFlavo Comprehensi 6 t92422f-9 [facility] 20:50:00 20:50:00 PRALUENT r ve Heart maricruz-4f12-a l [facility] Care PA s7w-f47f90 [facility] nn 44541n 2016-06-17 2016-06-17 message re nullFlavo Comprehensi e j8q6p80-1 [facility]oria 20:50:00 20:50:00 PRALUENT r ve Heart 7n9-0b9m-8 l [facility] Care PA 3ac-45be96 [facility] nn 66955a 2016-06-17 2016-06-17 message re nullFlavo Comprehensi d a2668u7-u [facility]oria 20:50:00 20:50:00 PRALUENT r ve Heart 4z4-3tv4-0 l [facility] Care PA eff-h5w473 [facility] nn 4dbfd8 2016-06-17 2016-06-17 message re nullFlavo Comprehensi b e78688h-9 [facility]oria 20:50:00 20:50:00 PRALUENT r ve Heart 47a-4a88-9 l 75[facility] Care PA fc5-f31a2b [facility] a56a7e 2016-06-17 2016-06-17 message re nullFlavo Comprehensi 0 56677k8-8 Memoria 20:50:00 20:50:00 PRALUENT r ve Heart 1f8-9h19-q l [facility] Care PA 2j2-81cu20 [facility] fe2fc8 2016-06-17 2016-06-17 message re nullFlavo Comprehensi 5 1w625st-d [facility]oria 20:50:00 20:50:00 PRALUENT r ve Heart 6q3-5t4g-c l [facility] Care PA 4c6-3985v5 [facility] 5a2cfe 2016-06-17 2016-06-17 message re nullFlavo Comprehensi 3 68dh1m6-s [facility] 20:50:00 20:50:00 PRALUENT r ve Heart 820-4b94-8 l [facility] Care PA fc5-129329 [facility] 433fef 2016-06-17 2016-06-17 message re nullFlavo Comprehensi 6 g42131g-4 [facility] 20:50:00 20:50:00 PRALUENT r ve Heart maricruz-4f12-a l [facility] Care PA q2p-x65k52 [facility] 72697u 2016-06-17 2016-06-17 message re nullFlavo Comprehensi 0 20845c2-5 [facility]oria 20:50:00 20:50:00 PRALUENT r ve Heart 2l6-1t46-m l [facility] Care PA 3s1-41me95 [facility] fe2fc8 2016-06-17 2016-06-17 message re nullFlavo Comprehensi 5 8o297hf-y [facility] 20:50:00 20:50:00 PRALUENT r ve Heart 2u6-5i6t-d l [facility] Care PA 0f5-3071z8 [facility] 5a2cfe 2016-06-17 2016-06-17 message re nullFlavo Comprehensi 3 35js7t5-p [facility] 20:50:00 20:50:00 PRALUENT r ve Heart 820-4b94-8 l [facility] Care PA fc5-555780 [facility] nn 433fef 2016-06-17 2016-06-17 message re nullFlavo Comprehensi d t9735a7-k [facility] 20:50:00 20:50:00 PRALUENT r ve Heart 6k2-5ir0-7 l [facility] Care PA eff-x1w335 [facility] nn 4dbfd8 2016-06-17 2016-06-17 message re nullFlavo Comprehensi b v48855k-6 [facility] 20:50:00 20:50:00 PRALUENT r ve Heart 47a-4a88-9 l [facility] Care PA fc5-f31a2b [facility] nn a56a7e 2016-06-17 2016-06-17 message re nullFlavo Comprehensi e e8j6k80-0 [facility]oria 20:50:00 20:50:00 PRALUENT r ve Heart 0p4-2o6u-1 l [facility] Care PA 3ac-45be96 [facility] nn 10676v 2016-06-17 2016-06-17 LAB SLIP nullFlavo Comprehensi 3a8 f9l2l-0 [facility] 20:08:00 20:08:00 FOR LIPID r ve Heart 29c-4d50-8 l PANEL Care PA 259-c16f8f [facility] nn 315faa 2016-06-17 2016-06-17 LAB SLIP nullFlavo Comprehensi 777 196u8-0 [facility] 20:08:00 20:08:00 FOR LIPID r ve Heart 72d-46a0-9 l PANEL Care PA 948-582f07 [facility] nn 06b06c 2016-06-17 2016-06-17 LAB SLIP nullFlavo Comprehensi ca0 5612f-6 [facility]oria 20:08:00 20:08:00 FOR LIPID r ve Heart bdb-42fc-9 l PANEL Care PA x51-dc9v04 [facility] nn cb14dc 2016-06-17 2016-06-17 LAB SLIP nullFlavo Comprehensi c0b b10jh-w [facility] 20:08:00 20:08:00 FOR LIPID r ve Heart e8r-4b3k-s l PANEL Care PA b14-4oviw4 [facility] nn a7d1f3 2016-06-17 2016-06-17 LAB SLIP nullFlavo Comprehensi 6ca u960q-q [facility] 20:08:00 20:08:00 FOR LIPID r ve Heart 97d-4853-8 l PANEL Care PA cfd-77m606 [facility] nn l8222i 2016-06-17 2016-06-17 LAB SLIP nullFlavo Comprehensi 1c8 60n87-t [facility] 20:08:00 20:08:00 FOR LIPID r ve Heart 93a-49a9-9 l PANEL Care PA 72a-1471ba [facility] nn 2fba23 2016-06-17 2016-06-17 LAB SLIP nullFlavo Comprehensi 6ed xd66c-2 [facility] 20:08:00 20:08:00 FOR LIPID r ve Heart 21a-4475-8 l PANEL Care PA 19c-a802b5 [facility] nn 81g259 2016-06-17 2016-06-17 LAB SLIP nullFlavo Comprehensi 3a8 i1r5h-1 [facility] 20:08:00 20:08:00 FOR LIPID r ve Heart 29c-4d50-8 l PANEL Care PA 259-c16f8f [facility] nn 315faa 2016-06-17 2016-06-17 LAB SLIP nullFlavo Comprehensi 777 915t6-6 [facility] 20:08:00 20:08:00 FOR LIPID r ve Heart 72d-46a0-9 l PANEL Care PA 948-582f07 [facility] nn 06b06c 2016-06-17 2016-06-17 LAB SLIP nullFlavo Comprehensi ca0 5612f-6 [facility] 20:08:00 20:08:00 FOR LIPID r ve Heart bdb-42fc-9 l PANEL Care PA o19-mp9c42 [facility] nn cb14dc 2016-06-17 2016-06-17 LAB SLIP nullFlavo Comprehensi c0b k64ie-c [facility] 20:08:00 20:08:00 FOR LIPID r ve Heart e4a-1s6f-g l PANEL Care PA h62-1wbxn6 [facility] nn a7d1f3 2016-06-17 2016-06-17 LAB SLIP nullFlavo Comprehensi 6ca w467l-l [facility] 20:08:00 20:08:00 FOR LIPID r ve Heart 97d-4853-8 l PANEL Care PA cfd-29t355 [facility] nn u2477i 2016-06-17 2016-06-17 LAB SLIP nullFlavo Comprehensi 1c8 04w08-p [facility] 20:08:00 20:08:00 FOR LIPID r ve Heart 93a-49a9-9 l PANEL Care PA 72a-1471ba [facility] nn 2fba23 2016-06-17 2016-06-17 LAB SLIP nullFlavo Comprehensi 6ed ey60n-4 [facility] 20:08:00 20:08:00 FOR LIPID r ve Heart 21a-4475-8 l PANEL Care PA 19c-a802b5 [facility] nn 76e534 2016-06-17 2016-06-17 LAB SLIP nullFlavo Comprehensi 3a8 y6a5j-6 [facility] 20:08:00 20:08:00 FOR LIPID r ve Heart 29c-4d50-8 l PANEL Care PA 259-c16f8f [facility] nn 315faa 2016-06-17 2016-06-17 LAB SLIP nullFlavo Comprehensi 6ca r868j-k Memoria 20:08:00 20:08:00 FOR LIPID r ve Heart 97d-4853-8 l PANEL Care PA cfd-84i016 [facility] nn m7266g 2016-06-17 2016-06-17 LAB SLIP nullFlavo Comprehensi 1c8 90m61-p [facility] 20:08:00 20:08:00 FOR LIPID r ve Heart 93a-49a9-9 l PANEL Care PA 72a-1471ba [facility] nn 2fba23 2016-06-17 2016-06-17 LAB SLIP nullFlavo Comprehensi 6ed yb33i-0 Memoria 20:08:00 20:08:00 FOR LIPID r ve Heart 21a-4475-8 l PANEL Care PA 19c-a802b5 [facility] nn 84m293 2016-06-17 2016-06-17 LAB SLIP nullFlavo Comprehensi ca0 5612f-6 [facility] 20:08:00 20:08:00 FOR LIPID r ve Heart bdb-42fc-9 l PANEL Care PA m13-qw6n67 [facility] nn cb14dc 2016-06-17 2016-06-17 LAB SLIP nullFlavo Comprehensi c0b e59ol-z [facility] 20:08:00 20:08:00 FOR LIPID r ve Heart y8a-7b0m-e l PANEL Care PA k88-4gkap2 [facility] nn a7d1f3 2016-06-17 2016-06-17 LAB SLIP nullFlavo Comprehensi 777 580e1-8 [facility] 20:08:00 20:08:00 FOR LIPID r ve Heart 72d-46a0-9 l PANEL Care PA 948-582f07 [facility] nn 06b06c 2016-06-17 2016-06-17 message re nullFlavo Comprehensi b l50418b-5 [facility] 19:50:00 19:50:00 PRALUENT r ve Heart p31-62h4-1 l [facility] Care PA 952-3ebdab [facility] nn 4p250j 2016-06-17 2016-06-17 message re nullFlavo Comprehensi c dz19mg5-e [facility] 19:50:00 19:50:00 PRALUENT r ve Heart p24-0899-b l [facility] Care PA de8-40m532 [facility] nn cd83a0 2016-06-17 2016-06-17 message re nullFlavo Comprehensi 2 q4fj686-7 [facility] 19:50:00 19:50:00 PRALUENT r ve Heart 8f5-5563-b l [facility] Care PA cc4-a54ec4 [facility] nn c6bc8b 2016-06-17 2016-06-17 message re nullFlavo Comprehensi 2 9qz82ke-p [facility] 19:50:00 19:50:00 PRALUENT r ve Heart d5n-358j-f l [facility] Care PA 880-gy8935 [facility] nn 1903f0 2016-06-17 2016-06-17 message re nullFlavo Comprehensi b p22670y-8 [facility] 19:50:00 19:50:00 PRALUENT r ve Heart d28-08m1-3 l [facility] Care PA 952-3ebdab [facility] nn 1i511g 2016-06-17 2016-06-17 message re nullFlavo Comprehensi c iu82mv8-k [facility] 19:50:00 19:50:00 PRALUENT r ve Heart u37-1866-v l [facility] Care PA de8-32q195 [facility] cd83a0 2016-06-17 2016-06-17 message re nullFlavo Comprehensi 2 p3az019-7 [facility] 19:50:00 19:50:00 PRALUENT r ve Heart 4e9-0137-h l [facility] Care PA cc4-a54ec4 [facility] c6bc8b 2016-06-17 2016-06-17 message re nullFlavo Comprehensi 2 5mk17qx-s [facility] 19:50:00 19:50:00 PRALUENT r ve Heart c1x-093m-l l [facility] Care PA 880-di5509 [facility] 1903f0 2016-06-17 2016-06-17 message re nullFlavo Comprehensi b m04946i-5 [facility] 19:50:00 19:50:00 PRALUENT r ve Heart d73-18y6-4 l [facility] Care PA 952-3ebdab [facility] 0u790i 2016-06-17 2016-06-17 message re nullFlavo Comprehensi c kq89hp3-n [facility] 19:50:00 19:50:00 PRALUENT r ve Heart t97-8159-x l [facility] Care PA [id number] [facility] [id number] 2016-06-17 2016-06-17 message re nullFlavo Comprehensi 2 [id number] Memoria 19:50:00 19:50:00 PRALUENT r ve Heart 5c8-2608-j l [facility] PA [id number] [facility] [id number] 2016-06-17 2016-06-17 message re nullFlavo Comprehensi 2 0ho22uz-d Memoria 19:50:00 19:50:00 PRALUENT r ve Heart l4z-194s-d l [facility] PA [id number] [facility] [id number] 2016-06-17 2016-06-17 LAB SLIP nullFlavo Comprehensi 7e7 533cd-a Memoria 19:08:00 19:08:00 FOR LIPID r ve Heart x55-0h8d-r l PANEL Care PA [id number] [facility] [id number] 2016-06-17 2016-06-17 LAB SLIP nullFlavo Comprehensi 6b1 d73lx-1 Memoria 19:08:00 19:08:00 FOR LIPID r ve Heart 094-4736-a l PANEL Care PA [id number]-[id number] Haylee nn [id number] 2016-06-17 2016-06-17 LAB SLIP nullFlavo Comprehensi 6cc [id number]-b Memoria 19:08:00 19:08:00 FOR LIPID r ve Heart 3fb-41e5-9 l PANEL Care PA [id number] Haylee nn [id number] 2016-06-17 2016-06-17 LAB SLIP nullFlavo Comprehensi 7e7 533cd-a Memoria 19:08:00 19:08:00 FOR LIPID r ve Heart g37-0m2x-i l PANEL Care PA 300-18c0af Haylee nn [id number] 2016-06-17 2016-06-17 LAB SLIP nullFlavo Comprehensi 6b1 p55de-7 Memoria 19:08:00 19:08:00 FOR LIPID r ve Heart 094-4736-a l PANEL Care PA cde-6fcfc4 Haylee nn 3c0e69 2016-06-17 2016-06-17 LAB SLIP nullFlavo Comprehensi 6cc 20a0t-i Memoria 19:08:00 19:08:00 FOR LIPID r ve Heart 3fb-41e5-9 l PANEL Care PA [id number] Haylee nn [id number] 2016-06-17 2016-06-17 LAB SLIP nullFlavo Comprehensi 7e7 533cd-a Memoria 19:08:00 19:08:00 FOR LIPID r ve Heart j31-9e5h-g l PANEL Care PA 300-18c0af Haylee nn [id number] 2016-06-17 2016-06-17 LAB SLIP nullFlavo Comprehensi 6b1 h93oq-9 Memoria 19:08:00 19:08:00 FOR LIPID r ve Heart 094-4736-a l PANEL Care PA cde-6fcfc4 Haylee nn 3c0e69 2016-06-17 2016-06-17 LAB SLIP nullFlavo Comprehensi 6cc 03y2o-l Memoria 19:08:00 19:08:00 FOR LIPID r ve Heart 3fb-41e5-9 l PANEL Care PA [id number] Haylee nn [id number] 2016-06-17 2016-06-17 Unknown nullFlavo Comprehensi 803b cd7c-8 Memoria 19:00:00 19:00:00 r ve Heart 37a-4580-b l Care PA [id number] Haylee nn [id number] 2016-06-17 2016-06-17 Unknown nullFlavo Comprehensi bc99 9ac0-8 Memoria 19:00:00 19:00:00 r ve Heart y13-461f-7 l Care PA [id number] Haylee nn [id number] 2016-06-17 2016-06-17 Unknown nullFlavo Comprehensi 2966 f9ad-2 Memoria 19:00:00 19:00:00 r ve Heart bc7-4618-b l Care PA [id number] Haylee nn [id number] 2016-06-17 2016-06-17 Unknown nullFlavo Comprehensi 3b4d d3c9-5 Memoria 19:00:00 19:00:00 r ve Heart f9o-9u08-1 l Care PA [id number] Haylee nn 39f8d3 2016-06-17 2016-06-17 Unknown nullFlavo Comprehensi 984d d51c-a Memoria 19:00:00 19:00:00 r ve Heart 96f-4d06-a l Care PA 12c-mw216t Haylee nn [id number] 2016-06-17 2016-06-17 Unknown nullFlavo Comprehensi 394b e81b-5 Memoria 19:00:00 19:00:00 r ve Heart 796-40c7-b l Care PA [id number]-d01c35 Haylee nn 88f1e6 2016-06-17 2016-06-17 Unknown nullFlavo Comprehensi 154c 58a9-4 Memoria 19:00:00 19:00:00 r ve Heart yahaira-4938-b l Care PA [id number]-o8522y Haylee nn f7a61c 2016-06-17 2016-06-17 Unknown nullFlavo Comprehensi 803b cd7c-8 Memoria 19:00:00 19:00:00 r ve Heart 37a-4580-b l Care PA [id number] Haylee nn [id number] 2016-06-17 2016-06-17 Unknown nullFlavo Comprehensi bc99 9ac0-8 Memoria 19:00:00 19:00:00 r ve Heart s45-093b-0 l Care PA [id number] Haylee nn d103a2 2016-06-17 2016-06-17 Unknown nullFlavo Comprehensi 2966 f9ad-2 Memoria 19:00:00 19:00:00 r ve Heart bc7-4618-b l Care PA [id number]-[id number] Haylee nn [id number] 2016-06-17 2016-06-17 Unknown nullFlavo Comprehensi 3b4d d3c9-5 Memoria 19:00:00 19:00:00 r ve Heart m7d-2y46-0 l Care PA [id number] Haylee nn 39f8d3 2016-06-17 2016-06-17 Unknown nullFlavo Comprehensi 984d d51c-a Memoria 19:00:00 19:00:00 r ve Heart 96f-4d06-a l Care PA 12c-lm258v Haylee nn 4fv395 2016-06-17 2016-06-17 Unknown nullFlavo Comprehensi 394b e81b-5 Memoria 19:00:00 19:00:00 r ve Heart 796-40c7-b l Care PA [id number]-d01c35 Haylee nn 88f1e6 2016-06-17 2016-06-17 Unknown nullFlavo Comprehensi 154c 58a9-4 Memoria 19:00:00 19:00:00 r ve Heart yahaira-4938-b l Care PA [id number]-[id number] Haylee nn f7a61c 2016-06-17 2016-06-17 Unknown nullFlavo Comprehensi 803b cd7c-8 Memoria 19:00:00 19:00:00 r ve Heart 37a-4580-b l Care PA [id number] Haylee nn [id number] 2016-06-17 2016-06-17 Unknown nullFlavo Comprehensi 984d d51c-a Memoria 19:00:00 19:00:00 r ve Heart 96f-4d06-a l Care PA 12c-js770k Haylee nn [id number] 2016-06-17 2016-06-17 Unknown nullFlavo Comprehensi 394b e81b-5 Memoria 19:00:00 19:00:00 r ve Heart 796-40c7-b l Care PA [id number]-d01c35 Haylee nn 88f1e6 2016-06-17 2016-06-17 Unknown nullFlavo Comprehensi 154c 58a9-4 Memoria 19:00:00 19:00:00 r ve Heart yahaira-4938-b l Care PA [id number]-a1512k [facility] nn f7a61c 2016-06-17 2016-06-17 Unknown nullFlavo Comprehensi 2966 f9ad-2 [facility]oria 19:00:00 19:00:00 [facility] ve Heart bc7-4618-b l Care PA beb-843b55 Haylee nn 19468b 2016-06-17 2016-06-17 Unknown nullFlavo Comprehensi 3b4d d3c9-5 Memoria 19:00:00 19:00:00 r ve Heart w4y-9e26-2 l Care PA 2b8-9s0z4a [facility]lee nn 39f8d3 2016-06-17 2016-06-17 Unknown nullFlavo Comprehensi bc99 9ac0-8 Memoria 19:00:00 19:00:00 r ve Heart u79-068s-2 l Care PA 235-0a46f2 [facility] nn d103a2 2016-06-17 2016-06-17 Unknown nullFlavo Comprehensi 120b 31a5-6 Memoria 18:00:00 18:00:00 r ve Heart 717-4484-8 l Care PA 7ca-617b02 [facility] nn 252b03 2016-06-17 2016-06-17 Unknown nullFlavo Comprehensi 05c5 52d4-1 Memoria 18:00:00 18:00:00 r ve Heart acb-44e3-8 l Care PA c29-710384 [facility] nn 279e84 2016-06-17 2016-06-17 Unknown nullFlavo Comprehensi 120b 31a5-6 Memoria 18:00:00 18:00:00 r ve Heart 717-4484-8 l Care PA 7ca-617b02 [facility] nn 252b03 2016-06-17 2016-06-17 Unknown nullFlavo Comprehensi 05c5 52d4-1 Memoria 18:00:00 18:00:00 r ve Heart acb-44e3-8 l Care PA n75-572435 [facility] nn 279e84 2016-06-17 2016-06-17 Unknown nullFlavo Comprehensi 120b 31a5-6 Memoria 18:00:00 18:00:00 r ve Heart 717-4484-8 l Care PA 7ca-617b02 [facility] nn 252b03 2016-06-17 2016-06-17 Unknown nullFlavo Comprehensi 05c5 52d4-1 Memoria 18:00:00 18:00:00 r ve Heart acb-44e3-8 l Care PA [id number] [facility] nn 279e84 2016-06-17 2016-06-17 Outpatient Comprehen Comprehensi 5 80028 [facility] 14:50:00 14:50:00 [facility]ive ve [facility] ut Heart Care PA Care PA 2016-06-17 2016-06-17 Outpatient Comprehen Comprehensi 5 35406 [facility] 14:50[facility]00 [facility] 2016-06-17 2016-06-17 Outpatient Comprehen Comprehensi 5 48981 [facility]inic 14:08:00 14:08[facility] 2016-06-17 2016-06-17 Outpatient Comprehen Comprehensi 5 71244 eClinic 14:08:00 14:08:00 [facility] ve [facility] ut Heart Care PA Care PA 2016-06-17 2016-06-17 Outpatient Comprehen Comprehensi 4 31759 eClinic 13:00:00 13:00:00 [facility] ve [facility] ut Heart Care PA Care PA 2016-06-17 2016-06-17 Outpatient Comprehen Comprehensi 4 09049 eClinic 13:00:00 13:00:00 [facility] Heart Care PA Care PA 2016-06-16 2016-06-16 2016 nullFlavo Comprehensi be84 9965-c Memoria 22:41:00 22:41:00 MEDICARE r ve Heart 997-4ff6-a l Care PA [id number] [facility] nn 45u753 2016-06-16 2016-06-16 2016 nullFlavo Comprehensi a889 cf1d-2 [facility]oria 22:41:00 22:41:00 MEDICARE r ve Heart 549-4d77-a l Care PA 57f-f23bde Haylee nn 38379r 2016-06-16 2016-06-162015 nullFlavo Comprehensi 1e9c 40c8-5 Memoria 22:41:00 22:41:00 MEDICARE r ve Heart 22b-4cef-b l Care PA fdd-by8738 [facility] nn [id number] 2016-06-16 2016-06-162015 nullFlavo Comprehensi 0e28 1565-4 Memoria 22:41:00 22:41:00 MEDICARE r ve Heart 577-4f63-a l Care PA 88e-76e7af [facility]lee nn 030b06 2016-06-16 2016-06-16 2016 nullFlavo Comprehensi e44b 99ae-6 Memoria 22:41:00 22:41:00 MEDICARE r ve Heart j64-54o2-h l Care PA 612-1511ce [facility] nn da10d7 2016-06-16 2016-06-16 2016 nullFlavo Comprehensi 0c50 1094-4 Memoria 22:41:00 22:41:00 MEDICARE r ve Heart 9w5-9o63-p l Care PA [id number] [facility] nn 4g5210 2016-06-16 2016-06-16 2016 nullFlavo Comprehensi 4fd9 f754-a [facility]oria 22:41:00 22:41:00 MEDICARE r ve Heart j69-0652-s l Care PA t50-324x10 [facility] nn e675da 2016-06-16 2016-06-16 2016 nullFlavo Comprehensi be84 9965-c Memoria 22:41:00 22:41:00 MEDICARE r ve Heart 997-4ff6-a l Care PA [id number] [facility] nn 10w672 2016-06-16 2016-06-16 2016 nullFlavo Comprehensi a889 cf1d-2 Memoria 22:41:00 22:41:00 MEDICARE r ve Heart 549-4d77-a l Care PA 57f-f23bde [facility] nn 66952o 2016-06-16 2016-06-162015 nullFlavo Comprehensi 1e9c 40c8-5 Memoria 22:41:00 22:41:00 MEDICARE r ve Heart 22b-4cef-b l Care PA fdd-yp8521 [facility] nn i83890 2016-06-16 2016-06-162015 nullFlavo Comprehensi 0e28 1565-4 Memoria 22:41:00 22:41:00 MEDICARE r ve Heart 577-4f63-a l Care PA 88e-76e7af [facility] nn 030b06 2016-06-16 2016-06-162015 nullFlavo Comprehensi e44b 99ae-6 Memoria 22:41:00 22:41:00 MEDICARE r ve Heart c24-28c8-m l Care PA 612-1511ce [facility] nn da10d7 2016-06-16 2016-06-162015 nullFlavo Comprehensi 0c50 1094-4 Memoria 22:41:00 22:41:00 MEDICARE r ve Heart 2c2-2b06-r l Care PA [id number] [facility] nn [id number] 2016-06-16 2016-06-162015 nullFlavo Comprehensi 4fd9 f754-a Memoria 22:41:00 22:41:00 MEDICARE r ve Heart d46-1838-k Care PA s01-438u65 [facility] nn e675da 2016-06-16 2016-06-16 2016 nullFlavo Comprehensi be84 9965-c Memoria 22:41:00 22:41:00 MEDICARE r ve Heart 997-4ff6-a l Care PA [id number] [facility] nn 33l297 2016-06-16 2016-06-16 2016 nullFlavo Comprehensi e44b 99ae-6 Memoria 22:41:00 22:41:00 MEDICARE r ve Heart i76-28m6-u l Care PA 612-1511ce [facility] nn da10d7 2016-06-16 2016-06-162015 nullFlavo Comprehensi 0c50 1094-4 Memoria 22:41:00 22:41:00 MEDICARE r ve Heart 4u8-6k81-n l Care PA 301-791684 [facility] nn 6j1717 2016-06-16 2016-06-162015 nullFlavo Comprehensi 4fd9 f754-a Memoria 22:41:00 22:41:00 MEDICARE r ve Heart n24-0433-r l Care PA a69-177f21 [facility] nn e675da 2016-06-16 2016-06-162015 nullFlavo Comprehensi 1e9c 40c8-5 Memoria 22:41:00 22:41:00 MEDICARE r ve Heart 22b-4cef-b l Care PA fdd-jg6329 [facility] nn u30676 2016-06-16 2016-06-162015 nullFlavo Comprehensi 0e28 1565-4 Memoria 22:41:00 22:41:00 MEDICARE r ve Heart 577-4f63-a l Care PA 88e-76e7af [facility] nn 030b06 2016-06-16 2016-06-162015 nullFlavo Comprehensi a889 cf1d-2 [facility]oria 22:41:00 22:41:00 MEDICARE r ve Heart 549-4d77-a Care PA 57f-f23bde [facility] nn 98904b 2016-06-16 2016-06-162015 nullFlavo Comprehensi 08d5 96b0-3 Memoria 21:41:00 21:41:00 MEDICARE r ve Heart 469-4eb9-9 Care PA 8m5-1630uj [facility] nn c2c8e5 2016-06-16 2016-06-16 2016 nullFlavo Comprehensi 714a 9733-0 Memoria 21:41:00 21:41:00 MEDICARE r ve Heart 0da-4e12-b l Care PA [id number]-[id number] [facility] nn 6872e8 2016-06-16 2016-06-16 2016 nullFlavo Comprehensi 5841 efa2-1 [facility]oria 21:41:00 21:41:00 MEDICARE r ve Heart 25b-46df-a l Care PA 516-6335aa [facility] nn a3aa90 2016-06-16 2016-06-16 2016 nullFlavo Comprehensi 05da d46a-e Memoria 21:41:00 21:41:00 MEDICARE r ve Heart w57-76a2-t l Care PA 510-5640c8 [facility] nn jq742z 2016-06-16 2016-06-16 2016 nullFlavo Comprehensi b77c f7b7-4 Memoria 21:41:00 21:41:00 MEDICARE r ve Heart 90e-45d9-8 l Care PA c36-47l66o [facility] nn 314bcb 2016-06-16 2016-06-16 2016 nullFlavo Comprehensi 08d5 96b0-3 Memoria 21:41:00 21:41:00 MEDICARE r ve Heart 469-4eb9-9 l Care PA [id number] [facility] nn c2c8e5 2016-06-16 2016-06-162015 nullFlavo Comprehensi 714a 9733-0 Memoria 21:41:00 21:41:00 MEDICARE r ve Heart 0da-4e12-b Care IN [id number] [facility] nn 6872e8 2016-06-16 2016-06-16 2016 nullFlavo Comprehensi 5841 efa2-1 Memoria 21:41:00 21:41:00 MEDICARE r ve Heart 25b-46df-a l Care PA 516-6335aa [facility] nn a3aa90 2016-06-16 2016-06-16 2016 nullFlavo Comprehensi 05da d46a-e Memoria 21:41:00 21:41:00 MEDICARE r ve Heart d72-02a7-p Care PA 510-5640c8 [facility] nn oz143o 2016-06-16 2016-06-16 2016 nullFlavo Comprehensi b77c f7b7-4 Memoria 21:41:00 21:41:00 MEDICARE r ve Heart 90e-45d9-8 l Care PA m25-46u47g [facility] nn 314bcb 2016-06-16 2016-06-16 2016 nullFlavo Comprehensi 714a 9733-0 Memoria 21:41:00 21:41:00 MEDICARE r ve Heart 0da-4e12-b l Care PA [id number]-[id number] [facility] nn 6872e8 2016-06-16 2016-06-16 2016 nullFlavo Comprehensi 08d5 96b0-3 Memoria 21:41:00 21:41:00 MEDICARE r ve Heart 469-4eb9-9 l Care PA 2e3-2050vo [facility] nn c2c8e5 2016-06-16 2016-06-16 2016 nullFlavo Comprehensi 5841 efa2-1 [facility] 21:41:00 21:41:00 MEDICARE r ve Heart 25b-46df-a l Care PA 516-6335aa [facility] nn a3aa90 2016-06-16 2016-06-16 2016 nullFlavo Comprehensi 05da d46a-e Memoria 21:41:00 21:41:00 MEDICARE r ve Heart n87-52n0-r l Care PA 510-5640c8 [facility] nn yh640i 2016-06-16 2016-06-16 2016 nullFlavo Comprehensi b77c f7b7-4 [facility]oria 21:41:00 21:41:00 MEDICARE r ve Heart 90e-45d9-8 l Care PA a62-69y69b [facility] nn 314bcb 2016-06-16 2016-06-16 Outpatient Comprehen Comprehensi 5 39238 eClinic 16:41:00 16:41:00 sive ve Heart alWor ut Heart Care PA Care PA 2016-06-16 2016-06-16 Outpatient Comprehen Comprehensi 5 88301 eClinic 16:41:00 16:41:00 sive ve Heart alWor ut Heart Care PA Care PA 2016-06-15 2016-06-15 Labs nullFlavo Comprehensi 0f52 9c81-0 Memoria 14:43:00 14:43:00 r ve Heart 605-401d-8 l Care PA 021-i63532 [facility] nn d0ba9a 2016-06-15 2016-06-15 Labs nullFlavo Comprehensi f2b9 24a5-7 [facility]oria 14:43:00 14:43:00 r ve Heart be7-4e74-a l Care PA f8g-p3jt7g [facility] nn 6l5148 2016-06-15 2016-06-15 Labs nullFlavo Comprehensi aac2 38ae-6 [facility]oria 14:43:00 14:43:00 r ve Heart p86-4986-0 l Care PA 205-38983i [facility] nn 68d7c1 2016-06-15 2016-06-15 Labs nullFlavo Comprehensi c610 bc5b-7 Memoria 14:43:00 14:43:00 r ve Heart g9i-95s2-5 l Care PA v97-y60pu0 [facility] nn 08d4cd 2016-06-15 2016-06-15 Labs nullFlavo Comprehensi 5310 bb0d-2 [facility]oria 14:43:00 14:43:00 r ve Heart 2e5-91m8-3 l Care PA af0-51933j [facility] nn 1273d3 2016-06-15 2016-06-15 Labs nullFlavo Comprehensi de0e 5b74-7 [facility]oria 14:43:00 14:43:00 r ve Heart d31-3i7u-1 l Care PA b18-539l2q [facility] nn 281508 4547-10-03 2016-06-15 Labs nullFlavo Comprehensi b35c 4f34-8 [facility]oria 14:43:00 14:43:00 r ve Heart db7-45b3-b l Care PA a42-8c31s2 [facility] nn 14be12 2016-06-15 2016-06-15 Labs nullFlavo Comprehensi 0f52 9c81-0 [facility]oria 14:43:00 14:43:00 r ve Heart 605-401d-8 l Care PA 021-q41709 [facility] nn d0ba9a 2016-06-15 2016-06-15 Labs nullFlavo Comprehensi f2b9 24a5-7 [facility]oria 14:43:00 14:43:00 r ve Heart be7-4e74-a l Care PA d6f-o1ln0r [facility] nn 5p9960 2016-06-15 2016-06-15 Labs nullFlavo Comprehensi aac2 38ae-6 [facility]oria 14:43:00 14:43:00 r ve Heart l22-6272-1 l Care PA 205-19897h [facility] nn 68d7c1 2016-06-15 2016-06-15 Labs nullFlavo Comprehensi c610 bc5b-7 Memoria 14:43:00 14:43:00 r ve Heart g3g-52o8-6 l Care PA r87-r99ox0 [facility] nn 08d4cd 2016-06-15 2016-06-15 Labs nullFlavo Comprehensi 5310 bb0d-2 [facility]oria 14:43:00 14:43:00 r ve Heart 8w9-79j1-8 l Care PA af0-60921o [facility] nn 1273d3 2016-06-15 2016-06-15 Labs nullFlavo Comprehensi de0e 5b74-7 Memoria 14:43:00 14:43:00 r ve Heart x29-9v5l-5 l Care PA c59-683n5x [facility]lee nn 194783 4171-10-03 2016-06-15 Labs nullFlavo Comprehensi b35c 4f34-8 Memoria 14:43:00 14:43:00 r ve Heart db7-45b3-b l Care PA k78-0y30t2 [facility] nn 14be12 2016-06-15 2016-06-15 Labs nullFlavo Comprehensi 0f52 9c81-0 Memoria 14:43:00 14:43:00 r ve Heart 605-401d-8 l Care PA 021-b21896 [facility] nn d0ba9a 2016-06-15 2016-06-15 Labs nullFlavo Comprehensi 5310 bb0d-2 Memoria 14:43:00 14:43:00 r ve Heart 8z6-42o7-2 l Care PA af0-44181s [facility]lee nn 1273d3 2016-06-15 2016-06-15 Labs nullFlavo Comprehensi de0e 5b74-7 Memoria 14:43:00 14:43:00 r ve Heart w25-0o6d-7 l Care PA x51-695v7i Haylee nn 532391 2143-10-03 2016-06-15 Labs nullFlavo Comprehensi b35c 4f34-8 Memoria 14:43:00 14:43:00 r ve Heart db7-45b3-b l Care PA k97-1u94b0 [facility] nn 14be12 2016-06-15 2016-06-15 Labs nullFlavo Comprehensi aac2 38ae-6 [facility] 14:43:00 14:43:00 r ve Heart e09-3829-9 l Care PA 205-79107j [facility] nn 68d7c1 2016-06-15 2016-06-15 Labs nullFlavo Comprehensi c610 bc5b-7 Memoria 14:43:00 14:43:00 r ve Heart g8s-21b1-8 l Care PA y70-w06hr8 [facility] nn 08d4cd 2016-06-15 2016-06-15 Labs nullFlavo Comprehensi f2b9 24a5-7 [facility]oria 14:43:00 14:43:00 r ve Heart be7-4e74-a l Care PA c1w-i7vt4r [facility] nn 4a1468 2016-06-15 2016-06-15 Labs nullFlavo Comprehensi ca11 d680-0 Memoria 13:43:00 13:43:00 r ve Heart c86-1463-0 l Care PA 10f-303474 [facility] nn 7ff8ef 2016-06-15 2016-06-15 Labs nullFlavo Comprehensi 3e3e 3ae6-8 Memoria 13:43:00 13:43:00 r ve Heart 70c-42ea-8 l Care PA 78d-853e3e [facility] nn 3bd7df 2016-06-15 2016-06-15 Labs nullFlavo Comprehensi 6646 6c65-8 Memoria 13:43:00 13:43:00 r ve Heart 550-43ae-a l Care PA h2s-8981c5 [facility] nn da28bd 2016-06-15 2016-06-15 Labs nullFlavo Comprehensi 4c5d 42e5-8 Memoria 13:43:00 13:43:00 r ve Heart 744-4ed0-a l Care PA q64-2h4jp4 [facility] nn 9a60fd 2016-06-15 2016-06-15 Labs nullFlavo Comprehensi 633d de05-f Memoria 13:43:00 13:43:00 r ve Heart 29f-4e01-9 l Care PA cc0-f2ed94 [facility] nn 3382c3 2016-06-15 2016-06-15 Labs nullFlavo Comprehensi b019 4e32-4 Memoria 13:43:00 13:43:00 r ve Heart p64-337p-1 l Care PA 24e-5c544o [facility] nn 24a786 2016-06-15 2016-06-15 Labs nullFlavo Comprehensi ca11 d680-0 Memoria 13:43:00 13:43:00 r ve Heart x49-0277-2 l Care PA 10f-927695 [facility] nn 7ff8ef 2016-06-15 2016-06-15 Labs nullFlavo Comprehensi 3e3e 3ae6-8 Memoria 13:43:00 13:43:00 r ve Heart 70c-42ea-8 l Care PA 78d-853e3e [facility] nn 3bd7df 2016-06-15 2016-06-15 Labs nullFlavo Comprehensi 6646 6c65-8 Memoria 13:43:00 13:43:00 r ve Heart 550-43ae-a l Care PA w5t-8674w1 [facility] nn da28bd 2016-06-15 2016-06-15 Labs nullFlavo Comprehensi 4c5d 42e5-8 Memoria 13:43:00 13:43:00 r ve Heart 744-4ed0-a l Care PA g29-4x1rn3 [facility] nn 9a60fd 2016-06-15 2016-06-15 Labs nullFlavo Comprehensi 633d de05-f Memoria 13:43:00 13:43:00 r ve Heart 29f-4e01-9 l Care PA cc0-f2ed94 [facility] nn 3382c3 2016-06-15 2016-06-15 Labs nullFlavo Comprehensi b019 4e32-4 Memoria 13:43:00 13:43:00 r ve Heart m04-947y-2 l Care PA 24e-2k602c [facility] nn 83d728 2016-06-15 2016-06-15 Labs nullFlavo Comprehensi 6646 6c65-8 Memoria 13:43:00 13:43:00 r ve Heart 550-43ae-a l Care PA y8r-9530z7 [facility] nn da28bd 2016-06-15 2016-06-15 Labs nullFlavo Comprehensi 3e3e 3ae6-8 Memoria 13:43:00 13:43:00 r ve Heart 70c-42ea-8 l Care PA 78d-853e3e [facility] nn 3bd7df 2016-06-15 2016-06-15 Labs nullFlavo Comprehensi ca11 d680-0 Memoria 13:43:00 13:43:00 r ve Heart i03-1477-7 l Care PA 10f-564402 [facility] nn 7ff8ef 2016-06-15 2016-06-15 Labs nullFlavo Comprehensi 4c5d 42e5-8 Memoria 13:43:00 13:43:00 r ve Heart 744-4ed0-a l Care PA i05-1w1kc5 [facility] nn 9a60fd 2016-06-15 2016-06-15 Labs nullFlavo Comprehensi 633d de05-f Memoria 13:43:00 13:43:00 r ve Heart 29f-4e01-9 l Care PA cc0-f2ed94 [facility] nn 3382c3 2016-06-15 2016-06-15 Labs nullFlavo Comprehensi b019 4e32-4 Memoria 13:43:00 13:43:00 r ve Heart l75-481m-0 l Care PA 24e-5k530s [facility] nn 69t302 2016-06-15 2016-06-15 Outpatient Comprehen Comprehensi 4 41035 eClinic 08:43:00 08:43:00 sive ve Heart alWor ut Heart Care PA Care PA 2016-06-15 2016-06-15 Outpatient Comprehen Comprehensi 4 66248 eClinic 08:43:00 08:43:00 sive ve Heart alWor ut Heart Care PA Care PA 2016-05-20 2016-05-20 2016 nullFlavo Comprehensi 5d41 7c19-d Memoria 17:36:00 17:36:00 MEDICARE r ve Heart 34c-411d-8 l Care PA 96c-977aee [facility]lee nn 3712d1 2016-05-20 2016-05-20 2016 nullFlavo Comprehensi 8699 2d21-1 [facility]oria 17:36:00 17:36:00 MEDICARE r ve Heart 899-4a5a-a l Care PA 1bf-jwv236 [facility] nn 5561c2 2016-05-20 2016-05-20 2016 nullFlavo Comprehensi 5460 b560-3 Memoria 17:36:00 17:36:00 MEDICARE r ve Heart 3af-43f3-9 l Care PA 22d-35064a [facility] nn 29d0c8 2016-05-20 2016-05-20 2016 nullFlavo Comprehensi 66b1 2a34-c [facility] 17:36:00 17:36:00 MEDICARE r ve Heart 3aa-415e-a l Care PA 99f-c61f53 [facility] nn ffb0f9 2016-05-20 2016-05-202015 nullFlavo Comprehensi bab0 9236-f [facility] 17:36:00 17:36:00 MEDICARE r ve Heart l3x-0714-2 l Care PA 097-765219 [facility] nn b88a71 2016-05-20 2016-05-202015 nullFlavo Comprehensi 12fc 662b-1 Memoria 17:36:00 17:36:00 MEDICARE r ve Heart t44-0p1g-3 l Care PA ee4-8255f7 [facility] nn c328db 2016-05-20 2016-05-202015 nullFlavo Comprehensi bc15 09b2-d [facility] 17:36:00 17:36:00 MEDICARE r ve Heart 80d-4db9-8 l Care PA t13-01336e [facility] nn 38o477 2016-05-20 2016-05-202015 nullFlavo Comprehensi 5d41 7c19-d Memoria 17:36:00 17:36:00 MEDICARE r ve Heart 34c-411d-8 l Care PA 96c-977aee [facility] nn 3712d1 2016-05-20 2016-05-202015 nullFlavo Comprehensi 8699 2d21-1 Memoria 17:36:00 17:36:00 MEDICARE r ve Heart 899-4a5a-a l Care PA 1bf-laj920 [facility] nn 5561c2 2016-05-20 2016-05-202015 nullFlavo Comprehensi 5460 b560-3 Memoria 17:36:00 17:36:00 MEDICARE r ve Heart 3af-43f3-9 l Care PA 22d-60535f [facility] nn 29d0c8 2016-05-20 2016-05-202015 nullFlavo Comprehensi 66b1 2a34-c Memoria 17:36:00 17:36:00 MEDICARE r ve Heart 3aa-415e-a l Care PA 99f-c61f53 [facility] nn ffb0f9 2016-05-20 2016-05-202015 nullFlavo Comprehensi bab0 9236-f Memoria 17:36:00 17:36:00 MEDICARE r ve Heart m8a-1822-3 l Care PA 097-200555 [facility] nn b88a71 2016-05-20 2016-05-202015 nullFlavo Comprehensi 12fc 662b-1 Memoria 17:36:00 17:36:00 MEDICARE r ve Heart i76-3o4u-6 l Care PA ee4-8255f7 [facility] nn c328db 2016-05-20 2016-05-202015 nullFlavo Comprehensi bc15 09b2-d Memoria 17:36:00 17:36:00 MEDICARE r ve Heart 80d-4db9-8 l Care PA s33-49639n [facility] nn 43o678 2016-05-20 2016-05-202015 nullFlavo Comprehensi 5d41 7c19-d Memoria 17:36:00 17:36:00 MEDICARE r ve Heart 34c-411d-8 l Care PA 96c-977aee [facility] nn 3712d1 2016-05-20 2016-05-202015 nullFlavo Comprehensi bab0 9236-f Memoria 17:36:00 17:36:00 MEDICARE r ve Heart j6t-1465-6 l Care PA 097-591709 [facility] nn b88a71 2016-05-20 2016-05-202015 nullFlavo Comprehensi 12fc 662b-1 Memoria 17:36:00 17:36:00 MEDICARE r ve Heart z19-8e2j-5 l Care PA ee4-8255f7 [facility] nn c328db 2016-05-20 2016-05-202015 nullFlavo Comprehensi bc15 09b2-d Memoria 17:36:00 17:36:00 MEDICARE r ve Heart 80d-4db9-8 l Care PA t28-55869v [facility] nn 80o326 2016-05-20 2016-05-202015 nullFlavo Comprehensi 5460 b560-3 Memoria 17:36:00 17:36:00 MEDICARE r ve Heart 3af-43f3-9 l Care PA 22d-11473q [facility] nn 29d0c8 2016-05-20 2016-05-202015 nullFlavo Comprehensi 66b1 2a34-c Mem[facility] 17:36:00 17:36:00 MEDICARE r ve Heart 3aa-415e-a l Care PA 99f-c61f53 [facility] nn ffb0f9 2016-05-20 2016-05-202015 nullFlavo Comprehensi 8699 2d21-1 Mem[facility] 17:36:00 17:36:00 MEDICARE r ve Heart 899-4a5a-a l Care PA 1bf-jze302 [facility] nn 5561c2 2016-05-20 2016-05-202015 nullFlavo Comprehensi 7208 f57c-8 Memoria 16:36:00 16:36:00 MEDICARE r ve Heart 668-4990-9 l Care PA 451-3oc548 Haylee nn 7724be 2016-05-20 2016-05-202015 nullFlavo Comprehensi 3ef6 50ea-c Memoria 16:36:00 16:36:00 MEDICARE r ve Heart 5u2-2875-l l Care PA 24a-ccf89a [facility] nn fe7efe 2016-05-20 2016-05-202015 nullFlavo Comprehensi 9dfd 196c-e [facility] 16:36:00 16:36:00 MEDICARE r ve Heart 274-4405-a l Care PA 12f-a29f90 [facility] nn w4706v 2016-05-20 2016-05-202015 nullFlavo Comprehensi 6d61 ff69-d [facility] 16:36:00 16:36:00 MEDICARE r ve Heart 934-429e-b l Care PA 57a-d104f2 [facility] nn 91ac90 2016-05-20 2016-05-202015 nullFlavo Comprehensi fb64 6646-3 Memoria 16:36:00 16:36:00 MEDICARE r ve Heart 41c-453d-8 l Care PA 441-2386b2 [facility] nn tx5990 2016-05-20 2016-05-202015 nullFlavo Comprehensi 64f4 ee2c-b [facility] 16:36:00 16:36:00 MEDICARE r ve Heart x79-1a08-2 l Care PA v43-48s40w [facility] nn 9cb7d5 2016-05-20 2016-05-202015 nullFlavo Comprehensi 3c49 7dcb-1 [facility] 16:36:00 16:36:00 MEDICARE r ve Heart abf-4244-9 l Care PA t3c-j58758 [facility] nn p40998 2016-05-20 2016-05-202015 nullFlavo Comprehensi 7208 f57c-8 Mem[facility] 16:36:00 16:36:00 MEDICARE r ve Heart 668-4990-9 l Care PA 451-5iw991 Haylee nn 7724be 2016-05-20 2016-05-202015 nullFlavo Comprehensi 3ef6 50ea-c [facility]oria 16:36:00 16:36:00 MEDICARE r ve Heart 7b6-7929-n l Care PA [id number] Haylee nn fe7efe 2016-05-20 2016-05-202015 nullFlavo Comprehensi 9dfd 196c-e [facility]oria 16:36:00 16:36:00 MEDICARE r ve Heart 274-4405-a l Care PA [id number] Haylee nn [id number] 2016-05-20 2016-05-202015 nullFlavo Comprehensi 6d61 ff69-d Memoria 16:36:00 16:36:00 MEDICARE r ve Heart [id number] l Care PA [id number] Haylee nn [id number] 2016-05-20 2016-05-202015 nullFlavo Comprehensi fb64 6646-3 Memoria 16:36:00 16:36:00 MEDICARE r ve Heart 41c-453d-8 l Care PA [id number] Haylee nn [id number] 2016-05-20 2016-05-202015 nullFlavo Comprehensi 64f4 ee2c-b [facility] 16:36:00 16:36:00 MEDICARE r ve Heart p11-8e42-0 l Care PA [id number] [facility] nn [id number] 2016-05-20 2016-05-202015 nullFlavo Comprehensi 3c49 7dcb-1 Memoria 16:36:00 16:36:00 MEDICARE r ve Heart abf-4244-9 l Care PA [id number] Haylee nn [id number] 2016-05-20 2016-05-202015 nullFlavo Comprehensi 6d61 ff69-d Memoria 16:36:00 16:36:00 MEDICARE r ve Heart [id number]-b l Care PA [id number] Haylee nn [id number] 2016-05-20 2016-05-202015 nullFlavo Comprehensi 3ef6 50ea-c [facility] 16:36:00 16:36:00 MEDICARE r ve Heart 8e8-5081-c l Care PA [id number]-ccf89a Haylee nn fe7efe 2016-05-20 2016-05-202015 nullFlavo Comprehensi 9dfd 196c-e [facility]oria 16:36:00 16:36:00 MEDICARE r ve Heart 274-4405-a l Care PA [id number] [facility] nn [id number] 2016-05-20 2016-05-202015 nullFlavo Comprehensi 7208 f57c-8 [facility] 16:36:00 16:36:00 MEDICARE r ve Heart 668-4990-9 l Care PA [id number] [facility] nn [id number] 2016-05-20 2016-05-202015 nullFlavo Comprehensi fb64 6646-3 Memoria 16:36:00 16:36:00 MEDICARE r ve Heart 41c-453d-8 l Care PA [id number] [facility] nn [id number] 2016-05-20 2016-05-202015 nullFlavo Comprehensi 64f4 ee2c-b Memoria 16:36:00 16:36:00 MEDICARE r ve Heart y02-2d14-9 l Care PA [id number] [facility] nn [id number] 2016-05-20 2016-05-202015 nullFlavo Comprehensi 3c49 7dcb-1 [facility] 16:36:00 16:36:00 MEDICARE r ve Heart abf-4244-9 l Care PA [id number] [facility] nn [id number] 2016-05-20 2016-05-20 Outpatient Comprehen Comprehensi 4 [id number] [facility]inic 11:36:00 11:36:00 sive ve Heart alWor ut Heart Care PA Care PA 2016-05-20 2016-05-20 Outpatient Comprehen Comprehensi 4 [id number] [facility]Clinic 11:36:00 11:36:00 sive ve Heart alWor ut Heart Care PA Care PA 2016-04-01 2016-04-[address] [facility] [id number] Memoria 19:16:00 04:59:00 Services r Outpatient 00 l Imaging - [facility] 2016-04-01 2016-04-[address] [facility] [id number] Memoria 19:16:00 04:59:00 Services r Outpatient 00 l Imaging - [facility] 2016-04-01 2016-04-[address] [facility] [id number] Memoria 19:16:00 04:59:00 Services r Outpatient 00 l Imaging - [facility] 2016-04-01 2016-04-01 Outpatient Physician, [id number] 14:16:00 23:59:00 Non 00 Associated 2016-04-01 2016-04-01 Outpatient Physician, [id number] 14:16:00 23:59:00 Non 00 Associated 2016-02-19 2016-02-19 Unknown nullFlavo Comprehensi c107 b16d-7 Memoria 21:00:00 21:00:00 r ve Heart 8z1-8ty4-1 l Care PA [id number] [facility] [id number] 6049-06-08 2016-02-19 Unknown nullFlavo Comprehensi 2e83 c0c4-e Memoria 21:00:00 21:00:00 r ve Heart f8q-62f1-0 l Care PA [id number] [facility] nn [id number] 2016-02-19 2016-02-19 Unknown nullFlavo Comprehensi a82f 88dd-f [facility] 21:00:00 21:00:00 r ve Heart 611-4309-b l Care PA [id number] [facility] nn [id number] 2016-02-19 2016-02-19 Unknown nullFlavo Comprehensi b1db 8937-e Memoria 21:00:00 21:00:00 r ve Heart d4e-7219-a l Care PA [id number] [facility] nn [id number] 2016-02-19 2016-02-19 Unknown nullFlavo Comprehensi 4731 01f2-3 Memoria 21:00:00 21:00:00 r ve Heart bb5-47fc-9 l Care PA [id number] [facility] [id number] 2016-02-19 2016-02-19 Unknown nullFlavo Comprehensi 14a1 6035-c Memoria 21:00:00 21:00:00 r ve Heart 277-4bfe-8 l Care PA [id number] Haylee nn [id number] 2016-02-19 2016-02-19 Unknown nullFlavo Comprehensi 185e bc7f-1 [facility]oria 21:00:00 21:00:00 r ve Heart 896-473e-b l Care PA [id number] Haylee nn [id number] 2016-02-19 2016-02-19 Unknown nullFlavo Comprehensi c107 b16d-7 [facility]oria 21:00:00 21:00:00 r ve Heart 4a9-1nu7-1 l Care PA [id number]-dc7bf7 Haylee nn [id number] 0909-06-08 2016-02-19 Unknown nullFlavo Comprehensi 2e83 c0c4-e [facility]oria 21:00:00 21:00:00 r ve Heart f7e-53h6-8 l Care PA [id number] Haylee nn e508cf 2016-02-19 2016-02-19 Unknown nullFlavo Comprehensi a82f 88dd-f [facility]oria 21:00:00 21:00:00 r ve Heart 611-4309-b l Care PA [id number] Haylee nn fdf39a 2016-02-19 2016-02-19 Unknown nullFlavo Comprehensi b1db 8937-e Memoria 21:00:00 21:00:00 r ve Heart h1f-5862-q l Care PA [id number] Haylee nn b34a5e 2016-02-19 2016-02-19 Unknown nullFlavo Comprehensi 4731 01f2-3 [facility] 21:00:00 [facility] bb5-47fc-9 l Care PA 321-vh3869 Haylee nn 00cf65 2016-02-19 2016-02-19 Unknown nullFlavo Comprehensi 14a1 6035-c [facility] 21:00:00 21:00:00 [facility] ve [facility] 277-4bfe-8 l Care PA c33-nbdvcb Haylee nn 37e8d5 2016-02-19 2016-02-19 Unknown nullFlavo Comprehensi 185e bc7f-1 [facility] 21:00:00 21:00:00 [facility] ve Heart 896-473e-b l Care PA ada-9c2a96 Haylee nn 94603f 2016-02-19 2016-02-19 Unknown nullFlavo Comprehensi c107 b16d-7 [facility] 21:00:00 21:00:00 [facility] ve Heart 2y7-2nl7-7 l Care PA 7eb-dc7bf7 Haylee nn 819293 9155-06-08 2016-02-19 Unknown nullFlavo Comprehensi 4731 01f2-3 [facility] 21:00:00 21:00:00 [facility] bb5-47fc-9 l Care PA 321-oi2408 Haylee nn 00cf65 2016-02-19 2016-02-19 Unknown nullFlavo Comprehensi 14a1 6035-c [facility] 21:00:00 21:00:00 [facility] ve Heart 277-4bfe-8 l Care PA q38-fkjien Haylee nn 37e8d5 2016-02-19 2016-02-19 Unknown nullFlavo Comprehensi 185e bc7f-1 [facility] 21:00:00 21:00:00 [facility] ve Heart 896-473e-b l Care PA ada-9c2a96 Haylee nn 23119r 2016-02-19 2016-02-19 Unknown nullFlavo Comprehensi a82f 88dd-f [facility] 21:00:00 21:00:00 [facility] ve Heart 611-4309-b l Care PA j16-310qzt Haylee nn fdf39a 2016-02-19 2016-02-19 Unknown nullFlavo Comprehensi b1db 8937-e [facility] 21:00:00 21:00:00 [facility] ve Heart o2m-8740-k l Care PA 335-6e03af Haylee nn b34a5e 2016-02-19 2016-02-19 Unknown nullFlavo Comprehensi 2e83 c0c4-e [facility] 21:00:00 21:00:00 [facility] ve [facility] c1r-38g3-1 l Care PA 354-33229y Haylee nn e508cf 2016-02-19 2016-02-19 Unknown nullFlavo Comprehensi 61af f3db-d [facility] 20:00:00 20:00:00 [facility] ve Heart x50-97he-9 l Care PA 79e-9fab5c Haylee nn 6b8d3b 2016-02-19 2016-02-19 Unknown nullFlavo Comprehensi 6625 7a89-d [facility] 20:00:00 20:00:00 [facility] ve Heart i1j-0s88-5 l Care PA 29b-e1c53b Haylee nn 81da30 2016-02-19 2016-02-19 Unknown nullFlavo Comprehensi 14b0 72fb-f [facility] 20:00:00 20:00:00 [facility] ve Heart bcd-47e0-a l Care PA f1x-w96c2k Haylee nn 857ec2 2016-02-19 2016-02-19 Unknown nullFlavo Comprehensi 0c4a f12d-a [facility] 20:00:00 20:00:00 [facility] ve Heart 246-4eb9-a l Care PA z48-5x2433 Haylee nn f3bb62 2016-02-19 2016-02-19 Unknown nullFlavo Comprehensi 2a79 90fd-3 [facility] 20:00:00 20:00:00 [facility] ve Heart 74a-4810-b l Care PA f83-362b27 Haylee nn 4da1e1 2016-02-19 2016-02-19 Unknown nullFlavo Comprehensi 6ea2 5a2c-a [facility] 20:00:00 20:00:00 r ve Heart 7be-4e2d-8 l Care PA 250-088a26 Haylee nn 3eb9c9 2016-02-19 2016-02-19 Unknown nullFlavo Comprehensi 9343 f733-4 [facility] 20:00:00 20:00:00 [facility] ve Heart m94-5124-y l Care PA g2w-b792ny Haylee nn 985783 9479-06-08 2016-02-19 Unknown nullFlavo Comprehensi cb28 c545-2 [facility] 20:00:00 20:00:00 [facility] ve Heart b0u-9q79-9 l Care PA 552-04b1fa Haylee nn 81798b 2016-02-19 2016-02-19 Unknown nullFlavo Comprehensi 61af f3db-d [facility] 20:00:00 20:00:00 [facility] ve Heart w25-63td-3 l Care PA 79e-9fab5c Hayele nn 6b8d3b 2016-02-19 2016-02-19 Unknown nullFlavo Comprehensi 6625 7a89-d [facility] 20:00:00 20:00:00 [facility] ve Heart l2b-0q71-5 l Care PA 29b-e1c53b Haylee nn 81da30 2016-02-19 2016-02-19 Unknown nullFlavo Comprehensi 14b0 72fb-f [facility] 20:00:00 20:00:00 [facility] ve Heart bcd-47e0-a l Care PA u9q-q93k7j Haylee nn 857ec2 2016-02-19 2016-02-19 Unknown nullFlavo Comprehensi 0c4a f12d-a [facility] 20:00:00 20:00:00 [facility] ve Heart 246-4eb9-a l Care PA m86-9r0914 Haylee nn f3bb62 2016-02-19 2016-02-19 Unknown nullFlavo Comprehensi 2a79 90fd-3 [facility] 20:00:00 20:00:00 [facility] ve Heart 74a-4810-b l Care PA r83-428a36 Haylee nn 4da1e1 2016-02-19 2016-02-19 Unknown nullFlavo Comprehensi 6ea2 5a2c-a [facility] 20:00:00 20:00:00 [facility] ve Heart 7be-4e2d-8 l Care PA 250-088a26 Haylee nn 3eb9c9 2016-02-19 2016-02-19 Unknown nullFlavo Comprehensi 9343 f733-4 [facility] 20:00:00 20:00:00 [facility] ve Heart m76-8190-b l Care PA b9j-j844cv Haylee nn 654826 9418-06-08 2016-02-19 Unknown nullFlavo Comprehensi cb28 c545-2 [facility] 20:00:00 20:00:00 [facility] ve Heart e9y-8l94-6 l Care PA 552-04b1fa Haylee nn 26931c 2016-02-19 2016-02-19 Unknown nullFlavo Comprehensi 0c4a f12d-a [facility] 20:00:00 20:00:00 [facility] ve Heart 246-4eb9-a l Care PA g15-0z3669 Haylee nn f3bb62 2016-02-19 2016-02-19 Unknown nullFlavo Comprehensi 6625 7a89-d [facility] 20:00:00 20:00:00 [facility] ve Heart h6n-2l19-7 l Care PA 29b-e1c53b Haylee nn 81da30 2016-02-19 2016-02-19 Unknown nullFlavo Comprehensi 14b0 72fb-f [facility] 20:00:00 20:00:00 [facility] ve Heart bcd-47e0-a l Care PA o6s-l45g1t Haylee nn 857ec2 2016-02-19 2016-02-19 Unknown nullFlavo Comprehensi 61af f3db-d [facility] 20:00:00 20:00:00 [facility] ve Heart d81-61wr-7 l Care PA 79e-9fab5c Haylee nn 6b8d3b 2016-02-19 2016-02-19 Unknown nullFlavo Comprehensi 6ea2 5a2c-a [facility] 20:00:00 20:00:00 [facility] ve Heart 7be-4e2d-8 l Care PA 250-088a26 Hyalee nn 3eb9c9 2016-02-19 2016-02-19 Unknown nullFlavo Comprehensi 2a79 90fd-3 [facility] 20:00:00 20:00:00 [facility] ve Heart 74a-4810-b l Care PA d13-429e30 Haylee nn 4da1e1 2016-02-19 2016-02-19 Unknown nullFlavo Comprehensi 9343 f733-4 [facility] 20:00:00 20:00:00 [facility] ve Heart a51-1815-h l Care PA f3x-s019rh Haylee nn 013645 0869-06-08 2016-02-19 Unknown nullFlavo Comprehensi cb28 c545-2 [facility] 20:00:00 20:00:00 [facility] ve Heart q4d-7y14-5 l Care PA 552-04b1fa Haylee nn 63309a 2016-02-19 2016-02-19 Outpatient Comprehen Comprehensi [facility] 39354 [facility] 15:00:00 15:00:00 [facility] ve [facility] alWor ut Heart Care PA Care PA 2016-02-19 2016-02-19 Outpatient Comprehen Comprehensi 4 24060 [facility]inic 15:00:00 15:00:00 [facility] ve [facility] alWor ks Heart Care PA Care PA 2016-02-14 2016-02-14 Unknown nullFlavo Comprehensi 9df4 636d-1 [facility] 19:53:00 19:53:00 r ve Heart 3o8-5kij-8 l Care PA 4l4-8v1u07 Haylee nn v82957 2016-02-14 2016-02-14 Unknown nullFlavo Comprehensi 6619 1fb4-d [facility] 19:53:00 19:53:00 r ve Heart 9af-4b8c-b l Care PA 165-033473 Halyee nn 2e3a22 2016-02-14 2016-02-14 Unknown nullFlavo Comprehensi 24d8 e2fa-1 [facility] 19:53:00 19:53:00 r ve Heart 6bd-49be-a l Care PA 3u8-9ov55u Haylee nn n4s220 2016-02-14 2016-02-14 Unknown nullFlavo Comprehensi c5fa d8da-0 [facility] 19:53:00 19:53:00 r ve Heart 081-4a83-8 l Care PA b7h-t5m50w Haylee nn e62e34 2016-02-14 2016-02-14 Unknown nullFlavo Comprehensi b391 bd6c-7 [facility] 19:53:00 19:53:00 r ve Heart d25-8167-3 l Care PA 902-7a6f4c Haylee nn 540d3b 2016-02-14 2016-02-14 Unknown nullFlavo Comprehensi f271 722d-5 [facility] 19:53:00 19:53:00 r ve Heart r02-1k60-8 l Care PA 9k1-06g19x Haylee nn 441e89 2016-02-14 2016-02-14 Unknown nullFlavo Comprehensi fd1c 1b19-c [facility] 19:53:00 19:53:00 r ve Heart p46-8992-5 l Care PA 69a-36498c Haylee nn 1j446c 2016-02-14 2016-02-14 Unknown nullFlavo Comprehensi 9df4 636d-1 [facility] 19:53:00 19:53:00 r ve Heart 5c3-9trg-1 l Care PA 0w2-8z0r39 [facility] nn k87534 2016-02-14 2016-02-14 Unknown nullFlavo Comprehensi 6619 1fb4-d [facility] 19:53:00 19:53:00 r ve Heart 9af-4b8c-b l Care PA 165-944167 [facility] nn 2e3a22 2016-02-14 2016-02-14 Unknown nullFlavo Comprehensi 24d8 e2fa-1 [facility] 19:53:00 19:53:00 r ve Heart 6bd-49be-a l Care PA 0y7-3kc51q [facility] nn v2u182 2016-02-14 2016-02-14 Unknown nullFlavo Comprehensi c5fa d8da-0 [facility] 19:53:00 19:53:00 r ve Heart 081-4a83-8 l Care PA r8u-e2y10r [facility] nn e62e34 2016-02-14 2016-02-14 Unknown nullFlavo Comprehensi b391 bd6c-7 [facility] 19:53:00 19:53:00 r ve Heart u77-7528-0 l Care PA 902-7a6f4c [facility] nn 540d3b 2016-02-14 2016-02-14 Unknown nullFlavo Comprehensi f271 722d-5 [facility] 19:53:00 19:53:00 r ve Heart j36-8k89-4 l Care PA 3q0-72j86i [facility] nn 441e89 2016-02-14 2016-02-14 Unknown nullFlavo Comprehensi fd1c 1b19-c [facility] 19:53:00 19:53:00 r ve Heart k89-0759-1 l Care PA 69a-02253t [facility] nn 6g132c 2016-02-14 2016-02-14 Unknown nullFlavo Comprehensi 9df4 636d-1 [facility] 19:53:00 19:53:00 r ve Heart 2p8-3mzz-2 l Care PA 0z3-3h3b06 [facility] nn k84553 2016-02-14 2016-02-14 Unknown nullFlavo Comprehensi b391 bd6c-7 [facility] 19:53:00 19:53:00 r ve Heart j60-5839-0 l Care PA 902-7a6f4c Haylee nn 540d3b 2016-02-14 2016-02-14 Unknown nullFlavo Comprehensi f271 722d-5 [facility] 19:53:00 19:53:00 r ve Heart z49-6y81-2 l Care PA 8g2-73i26z Haylee nn 441e89 2016-02-14 2016-02-14 Unknown nullFlavo Comprehensi fd1c 1b19-c [facility] 19:53:00 19:53:00 r ve Heart i98-0379-8 l Care PA 69a-02536a Haylee nn 3r149d 2016-02-14 2016-02-14 Unknown nullFlavo Comprehensi 24d8 e2fa-1 [facility] 19:53:00 19:53:00 r ve Heart 6bd-49be-a l Care PA 7u4-2xe25k Haylee nn w6g854 2016-02-14 2016-02-14 Unknown nullFlavo Comprehensi c5fa d8da-0 [facility] 19:53:00 19:53:00 r ve Heart 081-4a83-8 l Care PA o6e-m5n28s Haylee nn e62e34 2016-02-14 2016-02-14 Unknown nullFlavo Comprehensi 6619 1fb4-d [facility] 19:53:00 19:53:00 r ve Heart 9af-4b8c-b l Care PA 165-973743 Haylee nn 2e3a22 2016-02-14 2016-02-14 Unknown nullFlavo Comprehensi 002d 3aec-b [facility] 18:53:00 18:53:00 r ve Heart ad1-49b0-b l Care PA 772-4r721d Haylee nn dcaa2e 2016-02-14 2016-02-14 Unknown nullFlavo Comprehensi 58b1 7d4d-5 [facility] 18:53:00 18:53:00 r ve Heart 299-46a9-8 l Care PA 9ce-b287f8 Haylee nn 3b4a10 2016-02-14 2016-02-14 Unknown nullFlavo Comprehensi 1c8b f15c-2 [facility] 18:53:00 18:53:00 r ve Heart 452-47f5-b l Care PA ed3-f76ce0 Haylee nn aeabb8 2016-02-14 2016-02-14 Unknown nullFlavo Comprehensi cc99 fc65-1 [facility] 18:53:00 18:53:00 r ve Heart z6a-8676-6 l Care PA 830-473181 [facility] nn 6398e4 2016-02-14 2016-02-14 Unknown nullFlavo Comprehensi b412 52e9-5 [facility] 18:53:00 18:53:00 r ve Heart 042-405f-b l Care PA 4a0-79x926 [facility] nn 5bx664 2016-02-14 2016-02-14 Unknown nullFlavo Comprehensi 852f 5a20-1 [facility] 18:53:00 18:53:00 r ve Heart 43e-4769-b l Care PA y4u-9p717d [facility] nn k8y966 2016-02-14 2016-02-14 Unknown nullFlavo Comprehensi eb16 7c51-4 [facility] 18:53:00 18:53:00 r ve Heart 0z5-1om4-9 l Care PA 6ac-51fdb3 [facility] k35038 2016-02-14 2016-02-14 Unknown nullFlavo Comprehensi c435 7455-b [facility] 18:53:00 18:53:00 r ve Heart 8cb-4e3e-b l Care PA 392-9f04d4 [facility] nn i9z663 2016-02-14 2016-02-14 Unknown nullFlavo Comprehensi 5244 6448-9 [facility] 18:53:00 18:53:00 r ve Heart 10a-410a-9 l Care PA 668-c9f02f [facility] nn e28cf2 2016-02-14 2016-02-14 Unknown nullFlavo Comprehensi 8e3e 6c31-1 [facility] 18:53:00 18:53:00 r ve Heart 787-4d26-b l Care PA 9fb-68cda9 [facility] nn 93b52d 2016-02-14 2016-02-14 Unknown nullFlavo Comprehensi 002d 3aec-b [facility] 18:53:00 18:53:00 r ve Heart ad1-49b0-b l Care PA 772-2w848x [facility] nn dcaa2e 2016-02-14 2016-02-14 Unknown nullFlavo Comprehensi 58b1 7d4d-5 [facility] 18:53:00 18:53:00 r ve Heart 299-46a9-8 l Care PA 9ce-b287f8 [facility] nn 3b4a10 2016-02-14 2016-02-14 Unknown nullFlavo Comprehensi 1c8b f15c-2 [facility] 18:53:00 18:53:00 r ve Heart 452-47f5-b l Care PA ed3-f76ce0 [facility] nn aeabb8 2016-02-14 2016-02-14 Unknown nullFlavo Comprehensi cc99 fc65-1 [facility] 18:53:00 18:53:00 r ve Heart a0r-5065-6 l Care PA 830-250942 [facility] nn 6398e4 2016-02-14 2016-02-14 Unknown nullFlavo Comprehensi b412 52e9-5 [facility] 18:53:00 18:53:00 r ve Heart 042-405f-b l Care PA 6h0-54l077 [facility] nn 3bo367 2016-02-14 2016-02-14 Unknown nullFlavo Comprehensi 852f 5a20-1 [facility] 18:53:00 18:53:00 r ve Heart 43e-4769-b l Care PA j3r-0y886k [facility] nn f6t903 2016-02-14 2016-02-14 Unknown nullFlavo Comprehensi eb16 7c51-4 [facility] 18:53:00 18:53:00 r ve Heart 0p6-1im1-7 l Care PA 6ac-51fdb3 [facility] nn t04489 2016-02-14 2016-02-14 Unknown nullFlavo Comprehensi c435 7455-b [facility] 18:53:00 18:53:00 r ve Heart 8cb-4e3e-b l Care PA 392-9f04d4 [facility] nn a3e915 2016-02-14 2016-02-14 Unknown nullFlavo Comprehensi 5244 6448-9 [facility] 18:53:00 18:53:00 r ve Heart 10a-410a-9 l Care PA 668-c9f02f [facility] e28cf2 2016-02-14 2016-02-14 Unknown nullFlavo Comprehensi 8e3e 6c31-1 [facility] 18:53:00 18:53:00 r ve Heart 787-4d26-b l Care PA 9fb-68cda9 [facility]lee nn 93b52d 2016-02-14 2016-02-14 Unknown nullFlavo Comprehensi 58b1 7d4d-5 [facility] 18:53:00 18:53:00 r ve Heart 299-46a9-8 l Care PA 9ce-b287f8 [facility]lee nn 3b4a10 2016-02-14 2016-02-14 Unknown nullFlavo Comprehensi eb16 7c51-4 [facility] 18:53:00 18:53:00 r ve Heart 5c0-9nz9-9 l Care PA 6ac-51fdb3 Haylee nn p30235 2016-02-14 2016-02-14 Unknown nullFlavo Comprehensi b412 52e9-5 [facility] 18:53:00 18:53:00 r ve Heart 042-405f-b l Care PA 6q7-85n316 Haylee nn 0rf705 2016-02-14 2016-02-14 Unknown nullFlavo Comprehensi 1c8b f15c-2 [facility] 18:53:00 18:53:00 r ve Heart 452-47f5-b l Care PA ed3-f76ce0 [facility]lee nn aeabb8 2016-02-14 2016-02-14 Unknown nullFlavo Comprehensi cc99 fc65-1 [facility] 18:53:00 18:53:00 r ve Heart r2f-5515-8 l Care PA 830-740960 [facility] nn 6398e4 2016-02-14 2016-02-14 Unknown nullFlavo Comprehensi 002d 3aec-b [facility] 18:53:00 18:53:00 r ve Heart ad1-49b0-b l Care PA 772-7y049y [facility]lee nn dcaa2e 2016-02-14 2016-02-14 Unknown nullFlavo Comprehensi c435 7455-b [facility] 18:53:00 18:53:00 r ve Heart 8cb-4e3e-b l Care PA 392-9f04d4 [facility]lee nn u9v838 2016-02-14 2016-02-14 Unknown nullFlavo Comprehensi 852f 5a20-1 [facility] 18:53:00 18:53:00 r ve Heart 43e-4769-b l Care PA m0f-5t913t [facility]lee nn a4l081 2016-02-14 2016-02-14 Unknown nullFlavo Comprehensi 5244 6448-9 [facility] 18:53:00 18:53:00 r ve Heart 10a-410a-9 l Care PA 668-c9f02f [facility]lee nn e28cf2 2016-02-14 2016-02-14 Unknown nullFlavo Comprehensi 8e3e 6c31-1 [facility] 18:53:00 18:53:00 r ve Heart 787-4d26-b l Care PA 9fb-68cda9 [facility]lee nn 93b52d 2016-02-14 2016-02-14 Outpatient Comprehen Comprehensi 4 10195 [facility] 13:53:00 13:53[facility] 2016-02-14 2016-02-14 Outpatient Comprehen Comprehensi 4 89786 eClinic 13:53:00 13:53:[facility] 2016-02-12 2016-02-12 Unknown nullFlavo Comprehensi 551d 132f-9 [facility] 21:00:00 21:00:00 r ve Heart 2de-4ffa-8 l Care PA 3ce-19fa3e [facility]lee nn 3bfd44 2016-02-12 2016-02-12 Unknown nullFlavo Comprehensi 7d36 7cfb-a [facility] 21:00:00 21:00:00 r ve Heart 04a-4155-a l Care PA 84d-bzy473 Haylee nn 5af1df 2016-02-12 2016-02-12 Unknown nullFlavo Comprehensi 258e 82f7-d [facility] 21:00:00 21:00:00 r ve Heart 7z7-0q18-7 l Care PA 375-cc9ad5 Haylee nn dee93a 2016-02-12 2016-02-12 Unknown nullFlavo Comprehensi 26c7 bb2b-5 [facility] 21:00:00 21:00:00 r ve Heart fa3-45cf-b l Care PA 030-f579b4 [facility]lee nn c9a9be 2016-02-12 2016-02-12 Unknown nullFlavo Comprehensi 6dd7 7048-d [facility] 21:00:00 21:00:00 r ve Heart s2e-0a49-4 l Care PA i89-0433xq Haylee nn 7863f4 2016-02-12 2016-02-12 Unknown nullFlavo Comprehensi 5a80 c6ff-8 [facility] 21:00:00 21:00:00 r ve Heart d43-1jc9-n l Care PA 993-q3693h Haylee nn ecbdbb 2016-02-12 2016-02-12 Unknown nullFlavo Comprehensi f9e6 b708-a [facility] 21:00:00 21:00:00 r ve Heart 977-43e3-8 l Care PA 4c7-dws905 [facility]lee nn e2v121 2016-02-12 2016-02-12 Unknown nullFlavo Comprehensi 551d 132f-9 [facility] 21:00:00 21:00:00 r ve Heart 2de-4ffa-8 l Care PA 3ce-19fa3e Haylee nn 3bfd44 2016-02-12 2016-02-12 Unknown nullFlavo Comprehensi 7d36 7cfb-a [facility] 21:00:00 21:00:00 r ve Heart 04a-4155-a l Care PA 84d-ise185 Haylee nn 5af1df 2016-02-12 2016-02-12 Unknown nullFlavo Comprehensi 258e 82f7-d [facility] 21:00:00 21:00:00 r ve Heart 4t5-8m76-5 l Care PA 375-cc9ad5 [facility] nn dee93a 2016-02-12 2016-02-12 Unknown nullFlavo Comprehensi 26c7 bb2b-5 [facility] 21:00:00 21:00:00 r ve Heart fa3-45cf-b l Care PA 030-f579b4 Haylee nn c9a9be 2016-02-12 2016-02-12 Unknown nullFlavo Comprehensi 6dd7 7048-d [facility] 21:00:00 21:00:00 r ve Heart e4e-3i56-9 l Care PA o76-4798ud Haylee nn 7863f4 2016-02-12 2016-02-12 Unknown nullFlavo Comprehensi 5a80 c6ff-8 [facility] 21:00:00 21:00:00 r ve Heart r28-7dm6-i l Care PA 993-d3775f Haylee echols ecbdbb 2016-02-12 2016-02-12 Unknown nullFlavo Comprehensi f9e6 b708-a [facility] 21:00:00 21:00:00 r ve Heart 977-43e3-8 l Care PA 4k5-bfv264 [facility] nn x5b240 2016-02-12 2016-02-12 Unknown nullFlavo Comprehensi 551d 132f-9 [facility] 21:00:00 21:00:00 r ve Heart 2de-4ffa-8 l Care PA 3ce-19fa3e Haylee nn 3bfd44 2016-02-12 2016-02-12 Unknown nullFlavo Comprehensi 6dd7 7048-d [facility] 21:00:00 21:00:00 r ve Heart x2f-8a68-7 l Care PA o95-8166ox Haylee nn 7863f4 2016-02-12 2016-02-12 Unknown nullFlavo Comprehensi 5a80 c6ff-8 [facility] 21:00:00 21:00:00 r ve Heart b95-0yx1-a l Care PA 993-x3559k aHylee echols ecbdbb 2016-02-12 2016-02-12 Unknown nullFlavo Comprehensi f9e6 b708-a [facility] 21:00:00 21:00:00 r ve Heart 977-43e3-8 l Care PA 7a5-bqp914 [facility] nn r5c819 2016-02-12 2016-02-12 Unknown nullFlavo Comprehensi 258e 82f7-d [facility] 21:00:00 21:00:00 r ve Heart 0x8-6m64-9 l Care PA 375-cc9ad5 [facility]lee nn dee93a 2016-02-12 2016-02-12 Unknown nullFlavo Comprehensi 26c7 bb2b-5 [facility] 21:00:00 21:00:00 r ve Heart fa3-45cf-b l Care PA 030-f579b4 [facility] nn c9a9be 2016-02-12 2016-02-12 Unknown nullFlavo Comprehensi 7d36 7cfb-a [facility] 21:00:00 21:00:00 r ve Heart 04a-4155-a l Care PA 84d-tih005 [facility] nn 5af1df 2016-02-12 2016-02-12 Unknown nullFlavo Comprehensi 9a7b cfcd-5 [facility] 20:00:00 20:00:00 r ve Heart n54-2d69-a l Care PA c81-391524 [facility] nn s19730 2016-02-12 2016-02-12 Unknown nullFlavo Comprehensi 41cf f76c-3 [facility] 20:00:00 20:00:00 r ve Heart dd7-4fe9-8 l Care PA 4s0-7ylzq5 [facility] nn ajt158 2016-02-12 2016-02-12 Unknown nullFlavo Comprehensi 7047 bea5-6 [facility] 20:00:00 20:00:00 r ve Heart eab-4daf-8 l Care PA 17f-84bc38 [facility] nn eaf09a 2016-02-12 2016-02-12 Unknown nullFlavo Comprehensi 5471 b5ca-4 [facility] 20:00:00 20:00:00 r ve Heart y60-4047-7 l Care PA a98-w3s74s [facility] nn 87c82c 2016-02-12 2016-02-12 Unknown nullFlavo Comprehensi 6ff9 1970-c [facility] 20:00:00 20:00:00 r ve Heart fed-4725-b l Care PA 577-0no317 [facility] nn f40263 2016-02-12 2016-02-12 Unknown nullFlavo Comprehensi 8441 0226-e [facility] 20:00:00 20:00:00 r ve Heart p61-01m4-u l Care PA 85c-41dbf0 [facility] nn e44b76 2016-02-12 2016-02-12 Unknown nullFlavo Comprehensi d7ce 15ca-8 [facility] 20:00:00 20:00:00 r ve Heart 3ca-489c-8 l Care PA 6m9-l8468j [facility] nn 09cbb5 2016-02-12 2016-02-12 Unknown nullFlavo Comprehensi d43a 856b-d [facility] 20:00:00 20:00:00 r ve Heart 7i7-97o7-t l Care PA 999-d0a59c [facility] nn ba09b5 2016-02-12 2016-02-12 Unknown nullFlavo Comprehensi eb0c 5984-e [facility] 20:00:00 20:00:00 r ve Heart m81-363o-5 l Care PA 1y1-q7356c [facility] nn 31831s 2016-02-12 2016-02-12 Unknown nullFlavo Comprehensi 9a7b cfcd-5 [facility] 20:00:00 20:00:00 r ve Heart c28-1m96-s l Care PA r83-836853 [facility] nn t86907 2016-02-12 2016-02-12 Unknown nullFlavo Comprehensi 41cf f76c-3 [facility] 20:00:00 20:00:00 r ve Heart dd7-4fe9-8 l Care PA 0c4-6nghw3 [facility] nn anx453 2016-02-12 2016-02-12 Unknown nullFlavo Comprehensi 7047 bea5-6 [facility] 20:00:00 20:00:00 r ve Heart eab-4daf-8 l Care PA 17f-84bc38 [facility] nn eaf09a 2016-02-12 2016-02-12 Unknown nullFlavo Comprehensi 5471 b5ca-4 [facility] 20:00:00 20:00:00 r ve Heart t35-3962-2 l Care PA a33-t7d07v [facility] nn 87c82c 2016-02-12 2016-02-12 Unknown nullFlavo Comprehensi 6ff9 1970-c [facility] 20:00:00 20:00:00 r ve Heart fed-4725-b l Care PA 577-2jc477 [facility] nn a09252 2016-02-12 2016-02-12 Unknown nullFlavo Comprehensi 8441 0226-e [facility] 20:00:00 20:00:00 r ve Heart a77-12s0-n l Care PA 85c-41dbf0 [facility] nn [id number] 2016-02-12 2016-02-12 Unknown nullFlavo Comprehensi d7ce 15ca-8 [facility] 20:00:00 20:00:00 r ve Heart 3ca-489c-8 l Care PA [id number]-l2222q [facility] nn 09cbb5 2016-02-12 2016-02-12 Unknown nullFlavo Comprehensi d43a 856b-d [facility] 20:00:00 20:00:00 r ve Heart 8q4-90h3-c l Care PA 999-d0a59c [facility]lee nn ba09b5 2016-02-12 2016-02-12 Unknown nullFlavo Comprehensi eb0c 5984-e [facility] 20:00:00 20:00:00 r ve Heart p03-111j-2 l Care PA [id number]-n3463q [facility] nn [id number] 2016-02-12 2016-02-12 Unknown nullFlavo Comprehensi 8441 0226-e [facility] 20:00:00 20:00:00 r ve Heart v67-17b6-m l Care PA 85c-41dbf0 [facility] nn [id number] 2016-02-12 2016-02-12 Unknown nullFlavo Comprehensi 5471 b5ca-4 [facility] 20:00:00 20:00:00 r ve Heart d42-5353-5 l Care PA c59-l5r37i [facility] nn 87c82c 2016-02-12 2016-02-12 Unknown nullFlavo Comprehensi 41cf f76c-3 [facility] 20:00:00 20:00:00 r ve Heart dd7-4fe9-8 l Care PA 2y2-4rqxx6 [facility] nn hdx582 2016-02-12 2016-02-12 Unknown nullFlavo Comprehensi 7047 bea5-6 [facility] 20:00:00 20:00:00 r ve Heart eab-4daf-8 l Care PA [id number]-84bc38 [facility] nn eaf09a 2016-02-12 2016-02-12 Unknown nullFlavo Comprehensi 9a7b cfcd-5 [facility] 20:00:00 20:00:00 r ve Heart g65-6g01-w l Care PA [id number] [facility] nn [id number] 2016-02-12 2016-02-12 Unknown nullFlavo Comprehensi d7ce 15ca-8 [facility] 20:00:00 20:00:00 r ve Heart 3ca-489c-8 l Care PA [id number]-m5112k [facility] nn 09cbb5 2016-02-12 2016-02-12 Unknown nullFlavo Comprehensi 6ff9 1970-c [facility] 20:00:00 20:00:00 r ve Heart fed-4725-b l Care PA 577-4ur108 [facility] nn [id number] 2016-02-12 2016-02-12 Unknown nullFlavo Comprehensi d43a 856b-d [facility] 20:00:00 20:00:00 r ve Heart 2i5-40b2-x l Care PA 999-d0a59c [facility] nn ba09b5 2016-02-12 2016-02-12 Unknown nullFlavo Comprehensi eb0c 5984-e [facility] 20:00:00 20:00:00 r ve Heart z11-261y-6 l Care PA [id number]-s2073k [facility] nn 88207p 2016-02-12 2016-02-12 Outpatient Comprehen Comprehensi [facility] [id number] [facility] 15:00:00 15:00:00 sive ve Heart alWor ut Heart Care PA Care PA 2016-02-12 2016-02-12 Outpatient Comprehen Comprehensi 4 83050 [facility] 15:00:00 15:00:00 sive ve Heart alWor ut Heart Care PA Care PA 2016-02-12 2016-02-12 2016 nullFlavo Comprehensi b6cc 28f6-9 [facility] 14:36:00 14:36:00 MEDICARE r ve Heart 8w8-2i59-6 l Care PA [id number] [facility] nn [id number] 2016-02-12 2016-02-12 2016 nullFlavo Comprehensi d455 dd6b-3 [facility] 14:36:00 14:36:00 MEDICARE r ve Heart 9n6-8p01-t l Care PA o2w-ui9tt0 [facility] nn fec52f 2016-02-12 2016-02-12 2016 nullFlavo Comprehensi be8a bf16-e [facility] 14:36:00 14:36:00 MEDICARE r ve Heart u0b-0ku9-c l Care PA [id number] [facility] nn [id number] 2016-02-12 2016-02-12 2016 nullFlavo Comprehensi f370 d54d-5 [facility] 14:36:00 14:36:00 MEDICARE r ve Heart 1bd-4cb3-a l Care PA bd6-8ffdbc [facility] nn fa8e12 2016-02-12 2016-02-12 2016 nullFlavo Comprehensi 838c 753a-7 [facility] 14:36:00 14:36:00 MEDICARE r ve Heart a14-394i-j l Care PA cf0-07e73d [facility]lee nn fi619p 2016-02-12 2016-02-122015 nullFlavo Comprehensi 6ab1 69b6-e [facility] 14:36:00 14:36:00 MEDICARE r ve Heart df8-46ee-8 l Care PA 66b-7abb71 [facility] nn 288b2d 2016-02-12 2016-02-122015 nullFlavo Comprehensi b7c9 c4b2-a [facility] 14:36:00 14:36:00 MEDICARE r ve Heart 24c-4944-9 l Care PA [id number]-pv058l [facility]lee nn [id number] 2016-02-12 2016-02-122015 nullFlavo Comprehensi b6cc 28f6-9 [facility] 14:36:00 14:36:00 MEDICARE r ve Heart 9v4-1q23-6 l Care PA bc5-79fb22 [facility] nn [id number] 2016-02-12 2016-02-12 2016 nullFlavo Comprehensi d455 dd6b-3 [facility] 14:36:00 14:36:00 MEDICARE r ve Heart 3h1-1p20-g l Care PA r7m-yy7mn2 [facility] nn fec52f 2016-02-12 2016-02-12 2016 nullFlavo Comprehensi be8a bf16-e [facility] 14:36:00 14:36:00 MEDICARE r ve Heart x3t-0zj0-m l Care PA [id number] [facility] nn [id number] 2016-02-12 2016-02-122015 nullFlavo Comprehensi f370 d54d-5 [facility] 14:36:00 14:36:00 MEDICARE r ve Heart 1bd-4cb3-a l Care PA bd6-8ffdbc [facility] nn fa8e12 2016-02-12 2016-02-122015 nullFlavo Comprehensi 838c 753a-7 [facility] 14:36:00 14:36:00 MEDICARE r ve Heart e75-923t-y l Care PA cf0-07e73d [facility] nn xx055l 2016-02-12 2016-02-122015 nullFlavo Comprehensi 6ab1 69b6-e [facility] 14:36:00 14:36:00 MEDICARE r ve Heart df8-46ee-8 l Care PA 66b-7abb71 [facility] nn 288b2d 2016-02-12 2016-02-122015 nullFlavo Comprehensi b7c9 c4b2-a [facility] 14:36:00 14:36:00 MEDICARE r ve Heart 24c-4944-9 l Care PA 284-ex402f [facility] nn [id number] 2016-02-12 2016-02-122015 nullFlavo Comprehensi b6cc 28f6-9 [facility] 14:36:00 14:36:00 MEDICARE r ve Heart 9p7-1l32-0 l Care PA bc5-79fb22 [facility] nn [id number] 2016-02-12 2016-02-122015 nullFlavo Comprehensi 838c 753a-7 [facility] 14:36:00 14:36:00 MEDICARE r ve Heart y05-884b-k l Care PA cf0-07e73d [facility] [id number] 2016-02-12 2016-02-122015 nullFlavo Comprehensi 6ab1 69b6-e Memoria 14:36:00 14:36:00 MEDICARE r ve Heart df8-46ee-8 l Care PA 66b-7abb71 [facility] nn 288b2d 2016-02-12 2016-02-12 2016 nullFlavo Comprehensi b7c9 c4b2-a Memoria 14:36:00 14:36:00 MEDICARE r ve Heart 24c-4944-9 l Care PA 284-sr978l [facility] nn f9f8f9 2016-02-12 2016-02-122015 nullFlavo Comprehensi be8a bf16-e Memoria 14:36:00 14:36:00 MEDICARE r ve Heart d2a-6xn1-d l Care PA [id number] [facility] nn 8319a7 2016-02-12 2016-02-122015 nullFlavo Comprehensi f370 d54d-5 [facility] 14:36:00 14:36:00 MEDICARE r ve Heart 1bd-4cb3-a l Care PA bd6-8ffdbc [facility] nn fa8e12 2016-02-12 2016-02-122015 nullFlavo Comprehensi d455 dd6b-3 Memoria 14:36:00 14:36:00 MEDICARE r ve Heart 5v2-1a09-c l Care PA r9o-pb6uu8 [facility] nn fec52f 2016-02-12 2016-02-122015 nullFlavo Comprehensi 1842 2845-e Memoria 13:36:00 13:36:00 MEDICARE r ve Heart 215-407b-8 l Care PA o19-298fk5 [facility] nn 901035 6314-06-01 2016-02-122015 nullFlavo Comprehensi e0a4 d372-f Memoria 13:36:00 13:36:00 MEDICARE r ve Heart eed-4133-9 l Care PA ed9-e3a5b0 [facility] nn cd69b3 2016-02-12 2016-02-122015 nullFlavo Comprehensi 97eb 22c0-9 [facility] 13:36:00 13:36:00 MEDICARE r ve Heart 37f-494f-a l Care PA w86-1s1joo [facility] nn 44170k 2016-02-12 2016-02-12 2016 null[facility]avo Comprehensi d33d 5f4e-b [facility]oria 13:36:00 13:36:00 MEDICARE r ve Heart 42e-4732-a l Care PA 1bd-5cbeb5 [facility] nn c391f1 2016-02-12 2016-02-122015 nullFlavo Comprehensi 1511 9779-5 [facility]oria 13:36:00 13:36:00 MEDICARE r ve Heart u85-6252-g l Care PA 200-79bf5c [facility] nn 7ea732 2016-02-12 2016-02-122015 null[facility]avo Comprehensi f1aa 4bb3-a [facility] 13:36:00 13:36:00 MEDICARE r ve Heart 84e-40b9-8 l Care PA 076-21b5a9 [facility] nn c384ec 2016-02-12 2016-02-122015 nullFlavo Comprehensi 4404 fa06-7 [facility] 13:36:00 13:36:00 MEDICARE r ve Heart 7v0-2672-9 l Care PA 35c-5dy130 [facility] nn ec5f41 2016-02-12 2016-02-122015 null[facility]avo Comprehensi ed71 6ff2-b [facility] 13:36:00 13:36:00 MEDICARE r ve Heart 423-4d69-b l Care PA 80b-dc23c5 [facility] 86a65b 2016-02-12 2016-02-122015 null[facility]avo Comprehensi cb51 cfb9-e [facility]oria 13:36:00 13:36:00 MEDICARE r ve Heart fb4-4910-9 l Care PA 17f-3b19c9 [facility] nn ae4e46 2016-02-12 2016-02-122015 null[facility]avo Comprehensi d97a 86bb-6 [facility] 13:36:00 13:36:00 MEDICARE r ve Heart 7u8-9007-8 Care PA 322-e21ef6 [facility] nn 02b71f 2016-02-12 2016-02-122015 nullFlavo Comprehensi 04e5 b762-4 [facility] 13:36:00 13:36:00 MEDICARE r ve Heart 783-4e9c-8 Care PA cde-57ddc8 [facility] nn [id number] 2016-02-12 2016-02-122015 nullFlavo Comprehensi 1842 2845-e [facility]oria 13:36:00 13:36:00 MEDICARE r ve Heart 215-407b-8 l Care PA b81-566vr4 [facility] nn 440622 0641-06-01 2016-02-122015 null[facility]avo Comprehensi e0a4 d372-f [facility]oria 13:36:00 13:36:00 MEDICARE r ve Heart eed-4133-9 l Care PA ed9-e3a5b0 [facility] nn cd69b3 2016-02-12 2016-02-122015 nullFlavo Comprehensi 97eb 22c0-9 [facility] 13:36:00 13:36:00 MEDICARE r ve Heart 37f-494f-a Care PA e39-2l2ysp [facility] nn [id number] 2016-02-12 2016-02-122015 null[facility]avo Comprehensi d33d 5f4e-b [facility] 13:36:00 13:36:00 MEDICARE r ve Heart 42e-4732-a l Care PA 1bd-5cbeb5 [facility] nn c391f1 2016-02-12 2016-02-122015 nullFlavo Comprehensi 1511 9779-5 [facility] 13:36:00 13:36:00 MEDICARE r ve Heart n94-9545-d l Care PA 200-79bf5c [facility] nn 3ee193 2016-02-12 2016-02-122015 null[facility] Comprehensi f1aa 4bb3-a [facility] 13:36:00 13:36:00 MEDICARE r ve Heart 84e-40b9-8 l Care PA 076-21b5a9 [facility] nn c384ec 2016-02-12 2016-02-122015 nullFlavo Comprehensi 4404 fa06-7 [facility] 13:36:00 13:36:00 MEDICARE r ve Heart 2p3-4695-4 l Care PA 35c-6zx645 [facility] nn ec5f41 2016-02-12 2016-02-122015 nullFlavo Comprehensi ed71 6ff2-b [facility] 13:36:00 13:36:00 MEDICARE r ve Heart 423-4d69-b l Care PA 80b-dc23c5 [facility] nn 86a65b 2016-02-12 2016-02-122015 nullFlavo Comprehensi cb51 cfb9-e Memoria 13:36:00 13:36:00 MEDICARE r ve Heart fb4-4910-9 l Care PA 17f-3b19c9 [facility] nn ae4e46 2016-02-12 2016-02-122015 nullFlavo Comprehensi d97a 86bb-6 [facility] 13:36:00 13:36:00 MEDICARE r ve Heart 6q7-8126-9 l Care PA 322-e21ef6 [facility] nn 02b71f 2016-02-12 2016-02-122015 nullFlavo Comprehensi 04e5 b762-4 [facility] 13:36:00 13:36:00 MEDICARE r ve Heart 783-4e9c-8 l Care PA cde-57ddc8 [facility] nn [id number] 2016-02-12 2016-02-122015 null[facility]avo Comprehensi 97eb 22c0-9 [facility] 13:36:00 13:36:00 MEDICARE r ve Heart 37f-494f-a l Care PA [id number] [facility] nn [id number] 2016-02-12 2016-02-122015 nullFlavo Comprehensi 1842 2845-e [facility] 13:36:00 13:36:00 MEDICARE r ve Heart 215-407b-8 l Care PA [id number] [facility] nn 391773 4605-06-01 2016-02-122015 nullFlavo Comprehensi ed71 6ff2-b [facility] 13:36:00 13:36:00 MEDICARE r ve Heart 423-4d69-b l Care PA 80b-dc23c5 [facility] nn 86a65b 2016-02-12 2016-02-122015 nullFlavo Comprehensi f1aa 4bb3-a [facility] 13:36:00 13:36:00 MEDICARE r ve Heart 84e-40b9-8 l Care PA 076-21b5a9 [facility] c384ec 2016-02-12 2016-02-122015 nullFlavo Comprehensi d33d 5f4e-b Memoria 13:36:00 13:36:00 MEDICARE r ve Heart 42e-4732-a Care PA 1bd-5cbeb5 [facility] nn c391f1 2016-02-12 2016-02-12 2016 nullFlavo Comprehensi 1511 9779-5 [facility] 13:36:00 13:36:00 MEDICARE r ve Heart z16-7412-x l Care PA 200-79bf5c [facility] nn 3ts928 2016-02-12 2016-02-122015 nullFlavo Comprehensi e0a4 d372-f [facility] 13:36:00 13:36:00 MEDICARE r ve Heart eed-4133-9 l Care PA ed9-e3a5b0 [facility] cd69b3 2016-02-12 2016-02-122015 nullFlavo Comprehensi cb51 cfb9-e [facility] 13:36:00 13:36:00 MEDICARE r ve Heart fb4-4910-9 l Care PA 17f-3b19c9 [facility] nn ae4e46 2016-02-12 2016-02-12 2016 nullFlavo Comprehensi 4404 fa06-7 [facility] 13:36:00 13:36:00 MEDICARE r ve Heart 2s6-1436-0 l Care PA 35c-3ix944 [facility] nn ec5f41 2016-02-12 2016-02-122015 nullFlavo Comprehensi d97a 86bb-6 [facility] 13:36:00 13:36:00 MEDICARE r ve Heart 9b5-1418-0 l Care PA 322-e21ef6 [facility] nn 02b71f 2016-02-12 2016-02-122015 null[facility]avo Comprehensi 04e5 b762-4 [facility] 13:36:00 13:36:00 MEDICARE r ve Heart 783-4e9c-8 l Care PA cde-57ddc8 [facility] nn [id number] 2016-02-12 2016-02-12 [facility]patient Comprehen Comprehensi [facility] 8[facility]91 [facility] 08:36:00 08:36:00 sive ve Heart alWor ut Heart Care PA Care PA 2016-02-12 2016-02-12 Outpatient Comprehen Comprehensi 4 41209 [facility]inic 08:36:00 08:36:00 sive ve Heart alWor ut Heart Care PA Care PA 2016-01-01 2016-01-012015 nullFlavo Comprehensi 156c ebb7-8 [facility]oria 05:20:00 05:20:00 MEDICARE r ve Heart x93-6e4a-y l Care PA 6p5-8g265y [facility] nn e5e3f0 2016-01-01 2016-01-012015 null[facility]avo Comprehensi 370f 3e03-a [facility] 05:20:00 05:20:00 MEDICARE r ve Heart 5k4-5tv2-9 l Care PA v83-ms80i3 [facility] nn 7eefb0 2016-01-01 2016-01-012015 [facility] Comprehensi 50e1 ff5a-b [facility] 05:20:00 05:20:00 MEDICARE r ve Heart g08-1779-t l Care PA 0w0-224nks [facility] nn 805d5c 2016-01-01 2016-01-012015 [facility] Comprehensi 526e 106b-b [facility] 05:20:00 05:20:00 MEDICARE r ve Heart dcd-4fc9-9 l Care PA 323-54ddb4 [facility] nn 8bfef6 2016-01-01 2016-01-012015 [facility] Comprehensi 28e1 2c2d-b [facility] 05:20:00 05:20:00 MEDICARE r ve Heart 8ff-4952-a l Care PA g8w-3ew89x [facility] nn 3ddc5e 2016-01-01 2016-01-012015 null[facility] Comprehensi afb1 892c-d [facility] 05:20:00 05:20:00 MEDICARE r ve Heart 182-4288-8 l Care PA 8q6-bxdr60 [facility] nn c173d6 2016-01-01 2016-01-012015 [facility] Comprehensi 7b9a 6cc1-b [facility] 05:20:00 05:20:00 MEDICARE r ve Heart 72c-4b4a-9 l Care PA [id number] [facility] nn 301a48 2016-01-01 2016-01-012015 nullFlavo Comprehensi 156c ebb7-8 [facility] 05:20:00 05:20:00 MEDICARE r ve Heart l13-1h5s-p l Care PA 3k1-6k524c [facility] nn e5e3f0 2016-01-01 2016-01-012015 null[facility] Comprehensi 370f 3e03-a [facility] 05:20:00 05:20:00 MEDICARE r ve Heart 6a1-7ax5-0 l Care PA o11-hk65h5 [facility] nn 7eefb0 2016-01-01 2016-01-012015 null[facility] Comprehensi 50e1 ff5a-b [facility] 05:20:00 05:20:00 MEDICARE r ve Heart x36-5894-n l Care PA 0n1-820rab [facility] nn 805d5c 2016-01-01 2016-01-012015 null[facility]avo Comprehensi 526e 106b-b [facility] 05:20:00 05:20:00 MEDICARE r ve Heart dcd-4fc9-9 l Care PA 323-54ddb4 [facility] nn 8bfef6 2016-01-01 2016-01-012015 nullFlavo Comprehensi 28e1 2c2d-b [facility] 05:20:00 05:20:00 MEDICARE r ve Heart 8ff-4952-a l Care PA l3j-5it79h [facility] nn 3ddc5e 2016-01-01 2016-01-012015 nullFlavo Comprehensi afb1 892c-d Memoria 05:20:00 05:20:00 MEDICARE r ve Heart 182-4288-8 l Care PA 8p6-vczw61 [facility] nn c173d6 2016-01-01 2016-01-012015 nullFlavo Comprehensi 7b9a 6cc1-b Memoria 05:20:00 05:20:00 MEDICARE r ve Heart 72c-4b4a-9 l Care PA 498-53e349 [facility] nn 301a48 2016-01-01 2016-01-012015 nullFlavo Comprehensi 156c ebb7-8 [facility] 05:20:00 05:20:00 MEDICARE r ve Heart t39-0h8t-h l Care PA [id number] [facility] nn e5e3f0 2016-01-01 2016-01-012015 null[facility]avo Comprehensi 28e1 2c2d-b [facility]oria 05:20:00 05:20:00 MEDICARE r ve Heart 8ff-4952-a l Care PA c5d-7nk26c [facility] nn 3ddc5e 2016-01-01 2016-01-012015 nullFlavo Comprehensi afb1 892c-d Memoria 05:20:00 05:20:00 MEDICARE r ve Heart 182-4288-8 l Care PA 4y4-gsjh92 [facility] nn c173d6 2016-01-01 2016-01-012015 nullFlavo Comprehensi 7b9a 6cc1-b [facility]oria 05:20:00 05:20:00 MEDICARE r ve Heart 72c-4b4a-9 l Care PA 498-50q544 [facility] nn 301a48 2016-01-01 2016-01-012015 nullFlavo Comprehensi 50e1 ff5a-b [facility] 05:20:00 05:20:00 MEDICARE r ve Heart f19-8976-q l Care PA 1w1-246svo [facility] nn 805d5c 2016-01-01 2016-01-012015 nullFlavo Comprehensi 526e 106b-b [facility] 05:20:00 05:20:00 MEDICARE r ve Heart dcd-4fc9-9 l Care PA 323-54ddb4 [facility] nn 8bfef6 2016-01-01 2016-01-012015 nullFlavo Comprehensi 370f 3e03-a Memoria 05:20:00 05:20:00 MEDICARE r ve Heart 4q4-4fr7-7 l Care PA r13-on41l6 [facility] nn 7eefb0 2016-01-01 2016-01-012015 null[facility] Comprehensi 0da3 e79e-0 [facility] 04:20:00 04:20:00 MEDICARE r ve Heart d29-38q4-h l Care PA [id number] [facility] nn 42a61b 2016-01-01 2016-01-012015 null[facility] Comprehensi 95eb d82d-3 [facility] 04:20:00 04:20:00 MEDICARE r ve Heart 41b-4b34-a l Care PA 492-a9d7eb [facility] nn fe2c92 2016-01-01 2016-01-012015 nullFlavo Comprehensi 92ec 5c33-9 [facility]oria 04:20:00 04:20:00 MEDICARE r ve Heart y60-072u-9 l Care PA [id number] [facility] nn 434a17 2016-01-01 2016-01-012015 null[facility] Comprehensi 83f0 2f25-d Memoria 04:20:00 04:20:00 MEDICARE r ve Heart ca8-4505-b l Care PA [id number]-634227 [facility] nn bd9b91 2016-01-01 2016-01-012015 nullFlavo Comprehensi 159e 21f5-8 [facility] 04:20:00 04:20:00 MEDICARE r ve Heart 954-4a61-b l Care PA [id number] [facility] nn fh1385 2016-01-01 2016-01-012015 nullFlavo Comprehensi 14ab 6001-2 Memoria 04:20:00 04:20:00 MEDICARE r ve Heart 6ad-4cd0-b l Care PA 376-62a13e [facility] nn c5a6a4 2016-01-01 2016-01-012015 nullFlavo Comprehensi 6b5b 6c2d-5 [facility]oria 04:20:00 04:20:00 MEDICARE r ve Heart fde-469f-9 l Care PA 3bd-00f7b5 [facility] nn 1053f0 2016-01-01 2016-01-012015 nullFlavo Comprehensi 999a 1a40-3 [facility] 04:20:00 04:20:00 MEDICARE r ve Heart y5f-600e-5 l Care PA k94-q9o8iw [facility] nn 9ta383 2016-01-01 2016-01-012015 null[facility]avo Comprehensi c8c6 1fb6-d Memoria 04:20:00 04:20:00 MEDICARE r ve Heart p76-1m69-5 l Care PA [id number] [facility] nn ccd6c6 2016-01-01 2016-01-012015 nullFlavo Comprehensi 1458 bfb2-6 [facility] 04:20:00 04:20:00 MEDICARE r ve Heart q72-3gt7-z l Care PA 68f-7362bc [facility] nn e13dd7 2016-01-01 2016-01-012015 null[facility]avo Comprehensi ade6 afb3-c [facility] 04:20:00 04:20:00 MEDICARE r ve Heart g4y-5i8f-7 l Care PA [id number] [facility] nn 01e2c7 2016-01-01 2016-01-012015 nullFlavo Comprehensi ac9a 8be4-5 Memoria 04:20:00 04:20:00 MEDICARE r ve Heart o5s-2267-4 l Care PA baf-257c3d [facility] nn 87e4e5 2016-01-01 2016-01-012015 nullFlavo Comprehensi 0da3 e79e-0 Memoria 04:20:00 04:20:00 MEDICARE r ve Heart o58-01f0-z l Care PA [id number] [facility] nn 42a61b 2016-01-01 2016-01-01 2016 nullFlavo Comprehensi 95eb d82d-3 Memoria 04:20:00 04:20:00 MEDICARE r ve Heart 41b-4b34-a l Care PA 492-a9d7eb [facility] nn fe2c92 2016-01-01 2016-01-012015 nullFlavo Comprehensi 92ec 5c33-9 Memoria 04:20:00 04:20:00 MEDICARE r ve Heart w25-333w-6 l Care PA [id number] [facility] nn 434a17 2016-01-01 2016-01-012015 nullFlavo Comprehensi 83f0 2f25-d Memoria 04:20:00 04:20:00 MEDICARE r ve Heart ca8-4505-b l Care PA [id number]-349532 [facility] nn bd9b91 2016-01-01 2016-01-012015 nullFlavo Comprehensi 159e 21f5-8 [facility] 04:20:00 04:20:00 MEDICARE r ve Heart 954-4a61-b l Care PA [id number] [facility] nn nh9789 2016-01-01 2016-01-012015 nullFlavo Comprehensi 14ab 6001-2 Memoria 04:20:00 04:20:00 MEDICARE r ve Heart 6ad-4cd0-b l Care PA 376-62a13e [facility] nn c5a6a4 2016-01-01 2016-01-012015 null[facility]avo Comprehensi 6b5b 6c2d-5 [facility] 04:20:00 04:20:00 MEDICARE r ve Heart fde-469f-9 l Care PA 3bd-00f7b5 [facility] nn 1053f0 2016-01-01 2016-01-012015 nullFlavo Comprehensi 999a 1a40-3 Memoria 04:20:00 04:20:00 MEDICARE r ve Heart v3e-517a-2 l Care PA a83-y9a7pc [facility] nn 1xs174 2016-01-01 2016-01-012015 nullFlavo Comprehensi c8c6 1fb6-d Memoria 04:20:00 04:20:00 MEDICARE r ve Heart g43-5s67-3 l Care PA [id number] [facility] nn ccd6c6 2016-01-01 2016-01-012015 nullFlavo Comprehensi 1458 bfb2-6 [facility] 04:20:00 04:20:00 MEDICARE r ve Heart z38-4gd7-m l Care PA 68f-7362bc [facility] nn e13dd7 2016-01-01 2016-01-012015 nullFlavo Comprehensi ade6 afb3-c [facility] 04:20:00 04:20:00 MEDICARE r ve Heart k6m-0m7v-8 l Care PA [id number] [facility] nn 01e2c7 2016-01-01 2016-01-012015 null[facility]avo Comprehensi ac9a 8be4-5 [facility] 04:20:00 04:20:00 MEDICARE r ve Heart c7c-5444-1 l Care PA baf-257c3d [facility] nn 87e4e5 2016-01-01 2016-01-012015 nullFlavo Comprehensi 0da3 e79e-0 [facility] 04:20:00 04:20:00 MEDICARE r ve Heart v33-93p4-t l Care PA [id number] [facility] nn 42a61b 2016-01-01 2016-01-012015 nullFlavo Comprehensi 83f0 2f25-d Memoria 04:20:00 04:20:00 MEDICARE r ve Heart ca8-4505-b l Care PA [id number]-644891 [facility] nn bd9b91 2016-01-01 2016-01-012015 nullFlavo Comprehensi 95eb d82d-3 [facility] 04:20:00 04:20:00 MEDICARE r ve Heart 41b-4b34-a l Care PA 492-a9d7eb [facility] nn fe2c92 2016-01-01 2016-01-012015 [facility] Comprehensi c8c6 1fb6-d [facility]oria 04:20:00 04:20:00 MEDICARE r ve Heart l58-2n68-6 Care PA [id number] [facility] nn ccd6c6 2016-01-01 2016-01-012015 null[facility] Comprehensi 6b5b 6c2d-5 [facility] 04:20:00 04:20:00 MEDICARE r ve Heart fde-469f-9 l Care PA 3bd-00f7b5 [facility] nn 1053f0 2016-01-01 2016-01-012015 nullFlavo Comprehensi 159e 21f5-8 Memoria 04:20:00 04:20:00 MEDICARE r ve Heart 954-4a61-b Care PA [id number] [facility] nn nm5775 2016-01-01 2016-01-012015 nullFlavo Comprehensi 14ab 6001-2 Memoria 04:20:00 04:20:00 MEDICARE r ve Heart 6ad-4cd0-b l Care PA 376-62a13e [facility] nn c5a6a4 2016-01-01 2016-01-012015 nullFlavo Comprehensi 92ec 5c33-9 [facility] 04:20:00 04:20:00 MEDICARE r ve Heart q44-190s-6 l Care PA [id number] [facility] nn 434a17 2016-01-01 2016-01-012015 nullFlavo Comprehensi 1458 bfb2-6 [facility] 04:20:00 04:20:00 MEDICARE r ve Heart u62-7tl1-e l Care PA 68f-7362bc [facility] nn e13dd7 2016-01-01 2016-01-012015 nullFlavo Comprehensi 999a 1a40-3 [facility] 04:20:00 04:20:00 MEDICARE r ve Heart s9o-862y-0 l Care PA r32-z8r8ys [facility] nn 4qd679 2016-01-01 2016-01-012015 null[facility]avo Comprehensi ade6 afb3-c [facility] 04:20:00 04:20:00 MEDICARE r ve Heart i8x-9f1k-1 l Care PA [id number] [facility] nn 01e2c7 2016-01-01 2016-01-012015 null[facility]avo Comprehensi ac9a 8be4-5 [facility] 04:20:00 04:20:00 MEDICARE r ve Heart u4b-7257-8 l Care PA baf-257c3d [facility] nn 87e4e5 2015-12-31 2015-12-31 Outpatient Comprehen Comprehensi 4 31733 [facility] 23:20:00 23:20:00 sive ve Heart alWor ut Heart Care PA Care PA 2015-12-31 2015-12-31 Outpatient Comprehen Comprehensi 4 59849 [facility]inic 23:20:00 23:20:00 sive ve Heart alWor ut Heart Care PA Care PA 2015-05-27 2015-05-27 Rx nullFlavo Comprehensi 24e1 3e23-3 [facility] 22:58:00 22:58:00 r ve Heart v7f-2q93-6 l Care PA [id number] [facility] nn c99b48 2015-05-27 2015-05-27 Rx nullFlavo Comprehensi b3ea d44a-e [facility] 22:58:00 22:58:00 r ve Heart v03-50v0-5 l Care PA 3ed-l19812 [facility] nn 934bc8 2015-05-27 2015-05-27 Rx nullFlavo Comprehensi 38ed 9910-7 [facility] 22:58:00 22:58:00 r ve Heart 312-4aa2-8 l Care PA t11-8fshso [facility] nn 551408 3726-09-14 2015-05-27 Rx nullFlavo Comprehensi aa33 8b73-c [facility] 22:58:00 22:58:00 r ve Heart 3bc-4feb-9 l Care PA 774-1af5ba [facility] nn 8fbde3 2015-05-27 2015-05-27 Rx nullFlavo Comprehensi 4051 9acb-d [facility] 22:58:00 22:58:00 r ve Heart 717-4bac-b l Care PA 0o2-82787u [facility] nn 4c85ce 2015-05-27 2015-05-27 Rx nullFlavo Comprehensi f761 a028-1 [facility] 22:58:00 22:58:00 r ve Heart i2j-4182-2 l Care PA 7k8-i06312 [facility] nn 31f296 2015-05-27 2015-05-27 Rx nullFlavo Comprehensi 4c4e 4275-1 [facility] 22:58:00 22:58:00 r ve Heart i41-2294-z l Care PA i9o-qx846p [facility] nn 7c9b01 2015-05-27 2015-05-27 Rx nullFlavo Comprehensi 24e1 3e23-3 [facility] 22:58:00 22:58:00 r ve Heart i0j-4d70-2 l Care PA o61-558504 [facility] nn c99b48 2015-05-27 2015-05-27 Rx nullFlavo Comprehensi b3ea d44a-e [facility] 22:58:00 22:58:00 r ve Heart r76-56d5-5 l Care PA 3ed-w28805 [facility] nn 934bc8 2015-05-27 2015-05-27 Rx nullFlavo Comprehensi 38ed 9910-7 [facility] 22:58:00 22:58:00 r ve Heart 312-4aa2-8 l Care PA o93-3zsmjg [facility] nn 959273 3083-09-14 2015-05-27 Rx nullFlavo Comprehensi aa33 8b73-c [facility] 22:58:00 22:58:00 r ve Heart 3bc-4feb-9 l Care PA 774-1af5ba [facility] nn 8fbde3 2015-05-27 2015-05-27 Rx nullFlavo Comprehensi 4051 9acb-d [facility] 22:58:00 22:58:00 r ve Heart 717-4bac-b l Care PA 2m4-40002e [facility] nn 4c85ce 2015-05-27 2015-05-27 Rx nullFlavo Comprehensi f761 a028-1 [facility] 22:58:00 22:58:00 r ve Heart a5q-0651-3 l Care PA 1g8-j54559 [facility] nn 92i200 2015-05-27 2015-05-27 Rx nullFlavo Comprehensi 4c4e 4275-1 [facility] 22:58:00 22:58:00 r ve Heart e40-2409-x l Care PA k8g-zl192s [facility] nn 7c9b01 2015-05-27 2015-05-27 Rx nullFlavo Comprehensi 24e1 3e23-3 [facility] 22:58:00 22:58:00 r ve Heart v7w-6j54-4 l Care PA h15-887070 [facility] nn c99b48 2015-05-27 2015-05-27 Rx nullFlavo Comprehensi 4051 9acb-d [facility] 22:58:00 22:58:00 r ve Heart 717-4bac-b l Care PA 4y7-75122s [facility] nn 4c85ce 2015-05-27 2015-05-27 Rx nullFlavo Comprehensi f761 a028-1 [facility] 22:58:00 22:58:00 r ve Heart c4e-2775-4 l Care PA 4t2-x45912 [facility] nn 90l138 2015-05-27 2015-05-27 Rx nullFlavo Comprehensi 4c4e 4275-1 [facility] 22:58:00 22:58:00 r ve Heart q03-3837-e l Care PA k7i-fc548x [facility] nn 7c9b01 2015-05-27 2015-05-27 Rx nullFlavo Comprehensi 38ed 9910-7 [facility] 22:58:00 22:58:00 r ve Heart 312-4aa2-8 l Care PA d72-9fstwg [facility] nn 666880 4098-09-14 2015-05-27 Rx nullFlavo Comprehensi aa33 8b73-c [facility] 22:58:00 22:58:00 r ve Heart 3bc-4feb-9 l Care PA 774-1af5ba [facility] nn 8fbde3 2015-05-27 2015-05-27 Rx nullFlavo Comprehensi b3ea d44a-e [facility] 22:58:00 22:58:00 r ve Heart u84-86v2-1 l Care PA [id number]-[id number] Haylee nn 934bc8 2015-05-27 2015-05-27 Rx nullFlavo Comprehensi 697e 8343-5 [facility] 21:58:00 21:58:00 r ve Heart 403-4d93-a l Care PA 5p1-1659md Haylee nn 50c81f 2015-05-27 2015-05-27 Rx nullFlavo Comprehensi dc7c 491b-2 [facility] 21:58:00 21:58:00 r ve Heart 91b-482f-a l Care PA ebe-2778b4 Haylee nn 6a9ee8 2015-05-27 2015-05-27 Rx nullFlavo Comprehensi d703 1915-2 [facility] 21:58:00 21:58:00 r ve Heart f46-519t-x l Care PA 17e-aac87a Haylee nn 19afa3 2015-05-27 2015-05-27 Rx nullFlavo Comprehensi a6c8 24fd-9 [facility] 21:58:00 21:58:00 r ve Heart 5n9-581m-e l Care PA 492-e9cedf Haylee nn 10ab11 2015-05-27 2015-05-27 Rx nullFlavo Comprehensi 4c1a 6772-6 [facility] 21:58:00 21:58:00 r ve Heart 7z8-3383-6 l Care PA [id number] Haylee nn d31cd5 2015-05-27 2015-05-27 Rx nullFlavo Comprehensi 9435 2a62-3 [facility] 21:58:00 21:58:00 r ve Heart u66-7u45-v l Care PA 1k5-4az2ft Haylee nn db1061 2015-05-27 2015-05-27 Rx nullFlavo Comprehensi fe2a 320a-5 [facility] 21:58:00 21:58:00 r ve Heart bd6-4324-9 l Care PA 776-s91989 [facility] nn 577c75 2015-05-27 2015-05-27 Rx nullFlavo Comprehensi 02fe da25-f [facility] 21:58:00 21:58:00 r ve Heart 5r2-74cm-b l Care PA q2t-2nbv85 [facility] nn ed7f2a 2015-05-27 2015-05-27 Rx nullFlavo Comprehensi f97d 6a74-4 [facility] 21:58:00 21:58:00 r ve Heart o79-0q1j-j l Care PA 39f-150bdf [facility] nn 47ff79 2015-05-27 2015-05-27 Rx nullFlavo Comprehensi 4125 411a-6 [facility] 21:58:00 21:58:00 r ve Heart 51c-4ffc-b l Care PA 344-lsc538 [facility] nn 8c7e29 2015-05-27 2015-05-27 Rx nullFlavo Comprehensi 0b1b 0c09-1 [facility] 21:58:00 21:58:00 r ve Heart 6g4-015q-3 l Care PA n16-0v929w [facility] nn 3cdd92 2015-05-27 2015-05-27 Rx nullFlavo Comprehensi 90b1 afa6-7 [facility] 21:58:00 21:58:00 r ve Heart j56-6834-x l Care PA n2w-312q8p [facility] nn c3b5b5 2015-05-27 2015-05-27 Rx nullFlavo Comprehensi 697e 8343-5 [facility] 21:58:00 21:58:00 r ve Heart 403-4d93-a l Care PA 5s3-8772be [facility] nn 50c81f 2015-05-27 2015-05-27 Rx nullFlavo Comprehensi dc7c 491b-2 [facility] 21:58:00 21:58:00 r ve Heart 91b-482f-a l Care PA ebe-2778b4 [facility] nn 6a9ee8 2015-05-27 2015-05-27 Rx nullFlavo Comprehensi d703 1915-2 [facility] 21:58:00 21:58:00 r ve Heart h30-893z-g l Care PA 17e-aac87a [facility]lee nn 19afa3 2015-05-27 2015-05-27 Rx nullFlavo Comprehensi a6c8 24fd-9 [facility] 21:58:00 21:58:00 r ve Heart 7z6-368l-g l Care PA 492-e9cedf Haylee nn 10ab11 2015-05-27 2015-05-27 Rx nullFlavo Comprehensi 4c1a 6772-6 [facility] 21:58:00 21:58:00 r ve Heart 3k8-6392-5 l Care PA [id number] [facility] nn d31cd5 2015-05-27 2015-05-27 Rx nullFlavo Comprehensi 9435 2a62-3 [facility] 21:58:00 21:58:00 r ve Heart a64-9e01-d l Care PA 1q0-9xa8qw [facility] nn gr6579 2015-05-27 2015-05-27 Rx nullFlavo Comprehensi fe2a 320a-5 [facility] 21:58:00 21:58:00 r ve Heart bd6-4324-9 l Care PA [id number]-m74229 [facility] nn 577c75 2015-05-27 2015-05-27 Rx nullFlavo Comprehensi 02fe da25-f [facility] 21:58:00 21:58:00 r ve Heart 0h1-92hz-u l Care PA n8z-2vkp08 [facility] nn ed7f2a 2015-05-27 2015-05-27 Rx nullFlavo Comprehensi f97d 6a74-4 [facility] 21:58:00 21:58:00 r ve Heart k44-1m6q-y l Care PA 39f-150bdf [facility] nn 47ff79 2015-05-27 2015-05-27 Rx nullFlavo Comprehensi 4125 411a-6 [facility] 21:58:00 21:58:00 r ve Heart 51c-4ffc-b l Care PA 344-sut714 [facility] nn 8c7e29 2015-05-27 2015-05-27 Rx nullFlavo Comprehensi 0b1b 0c09-1 [facility] 21:58:00 21:58:00 r ve Heart 4m2-981p-8 l Care PA e07-5q536e [facility] nn 3cdd92 2015-05-27 2015-05-27 Rx nullFlavo Comprehensi 90b1 afa6-7 [facility] 21:58:00 21:58:00 r ve Heart m23-7634-o l Care PA m1c-569i0o [facility]lee nn c3b5b5 2015-05-27 2015-05-27 Rx nullFlavo Comprehensi 697e 8343-5 [facility] 21:58:00 21:58:00 r ve Heart 403-4d93-a l Care PA 7j1-0990hf [facility]lee nn 50c81f 2015-05-27 2015-05-27 Rx nullFlavo Comprehensi a6c8 24fd-9 [facility] 21:58:00 21:58:00 r ve Heart 3c7-841b-m l Care PA 492-e9cedf Haylee nn 10ab11 2015-05-27 2015-05-27 Rx nullFlavo Comprehensi dc7c 491b-2 [facility] 21:58:00 21:58:00 r ve Heart 91b-482f-a l Care PA ebe-2778b4 [facility] nn 6a9ee8 2015-05-27 2015-05-27 Rx nullFlavo Comprehensi f97d 6a74-4 [facility] 21:58:00 21:58:00 r ve Heart b47-0o5s-x l Care PA 39f-150bdf [facility]lee nn 47ff79 2015-05-27 2015-05-27 Rx nullFlavo Comprehensi fe2a 320a-5 [facility] 21:58:00 21:58:00 r ve Heart bd6-4324-9 l Care PA [id number]-r30829 [facility] nn 577c75 2015-05-27 2015-05-27 Rx nullFlavo Comprehensi 4c1a 6772-6 [facility] 21:58:00 21:58:00 r ve Heart 1n9-9089-4 l Care PA [id number] [facility]lee nn d31cd5 2015-05-27 2015-05-27 Rx nullFlavo Comprehensi 9435 2a62-3 [facility] 21:58:00 21:58:00 r ve Heart c30-4i42-i l Care PA 7z9-6re7wq [facility] nn pn7877 2015-05-27 2015-05-27 Rx nullFlavo Comprehensi d703 1915-2 [facility] 21:58:00 21:58:00 r ve Heart p35-271w-w l Care PA 17e-aac87a [facility] nn 19afa3 2015-05-27 2015-05-27 Rx nullFlavo Comprehensi 4125 411a-6 [facility] 21:58:00 21:58:00 r ve Heart 51c-4ffc-b l Care PA 344-swt329 [facility] nn 8c7e29 2015-05-27 2015-05-27 Rx nullFlavo Comprehensi 02fe da25-f [facility] 21:58:00 21:58:00 r ve Heart 9u6-79cf-p l Care PA v0l-1rdp66 [facility] nn ed7f2a 2015-05-27 2015-05-27 Rx nullFlavo Comprehensi 0b1b 0c09-1 [facility] 21:58:00 21:58:00 r ve Heart 0g2-696n-0 l Care PA a69-2n051s [facility] nn 3cdd92 2015-05-27 2015-05-27 Rx nullFlavo Comprehensi 90b1 afa6-7 [facility] 21:58:00 21:58:00 r ve Heart n22-8585-p l Care PA w7u-112h7m [facility] nn c3b5b5 2015-02-18 2015-02-19 [facility] [id number] [facility] 19:49:00 01:18:00 Emergency r [place] 00 l [facility] 2015-02-18 2015-02-19 EC nullFlavo [facility] [id number] Memoria 19:49:00 01:18:00 Emergency r [place] 00 l [facility] 2015-02-18 2015-02-19 [facility] [id number] 275 [facility] 19:49:00 01:18:00 Emergency r [place] 00 [facility] 2015-02-18 2015-02-18 Outpatient Charito, 2.16.840. [id number] . [id number] 14:49:00 20:18:00 Dorie De Guzman [id number] 5.0.162 78 3028-06-08 2015-02-18 Nanette Mcneill, 2.16.840. 2.16.840.1 . [id number] 14:49:00 20:18:00 Dorie De Guzman [id number]. [id number] 3.615.0.1 5.0.738 60 8915-03-18 2014-11-28 Unknown nullFlavo Comprehensi 070f 8eef-7 [facility] 21:00:00 21:00:00 r ve Heart fd1-4bc7-9 l Care PA 74c-e6c2d0 [facility] nn 2p6267 2014-11-28 2014-11-28 Unknown nullFlavo Comprehensi fd20 08be-0 [facility] 21:00:00 21:00:00 r ve Heart 4g0-4f45-s l Care PA h80-93b2d6 [facility] nn 19cad0 2014-11-28 2014-11-28 Unknown nullFlavo Comprehensi 4314 3faa-a [facility] 21:00:00 21:00:00 r ve Heart 30a-4920-8 l Care PA c47-sxqp1q [facility] nn 4d8fc6 2014-11-28 2014-11-28 Unknown nullFlavo Comprehensi 1f02 5b44-6 [facility] 21:00:00 21:00:00 r ve Heart fac-4822-8 l Care PA 364-da9b93 [facility] nn 3eb16e 2014-11-28 2014-11-28 Unknown nullFlavo Comprehensi ac37 98d6-c [facility] 21:00:00 21:00:00 r ve Heart 0q7-9725-e l Care PA 27e-fa50c2 [facility] nn d1f58b 2014-11-28 2014-11-28 Unknown [facility]Flavo Comprehensi 6b6d b225-5 [facility] 21:00:00 21:00:00 r ve Heart 21a-4684-b l Care PA d0q-552v5t [facility] nn 009960 3833-03-18 2014-11-28 Unknown [facility]Flavo Comprehensi e859 96b4-f [facility] 21:00:00 21:00:00 r ve Heart 77d-4cf3-9 l Care PA 522-bb7e93 [facility] nn 62dd6d 2014-11-28 2014-11-28 Unknown nullFlavo Comprehensi 070f 8eef-7 [facility] 21:00:00 21:00:00 r ve Heart fd1-4bc7-9 l Care PA 74c-e6c2d0 [facility] nn 9s2014 2014-11-28 2014-11-28 Unknown nullFlavo Comprehensi fd20 08be-0 [facility] 21:00:00 21:00:00 r ve Heart 5t1-6h25-f l Care PA x33-57x3r7 [facility] nn 19cad0 2014-11-28 2014-11-28 Unknown nullFlavo Comprehensi 4314 3faa-a [facility] 21:00:00 21:00:00 r ve Heart 30a-4920-8 l Care PA l46-ifdn0d [facility] nn 4d8fc6 2014-11-28 2014-11-28 Unknown nullFlavo Comprehensi 1f02 5b44-6 [facility] 21:00:00 21:00:00 r ve Heart fac-4822-8 l Care PA 364-da9b93 [facility] nn 3eb16e 2014-11-28 2014-11-28 Unknown nullFlavo Comprehensi ac37 98d6-c [facility] 21:00:00 21:00:00 r ve Heart 8j5-0681-y l Care PA 27e-fa50c2 [facility] nn d1f58b 2014-11-28 2014-11-28 Unknown [facility]Flavo Comprehensi 6b6d b225-5 [facility] 21:00:00 21:00:00 r ve Heart 21a-4684-b l Care PA o7c-031w3e [facility] nn 379359 6364-03-18 2014-11-28 Unknown nullFlavo Comprehensi e859 96b4-f [facility] 21:00:00 21:00:00 r ve Heart 77d-4cf3-9 l Care PA 522-bb7e93 [facility] nn 62dd6d 2014-11-28 2014-11-28 Unknown nullFlavo Comprehensi 070f 8eef-7 [facility] 21:00:00 21:00:00 r ve Heart fd1-4bc7-9 l Care PA 74c-e6c2d0 [facility] nn 1f7998 2014-11-28 2014-11-28 Unknown nullFlavo Comprehensi ac37 98d6-c [facility] 21:00:00 21:00:00 r ve Heart 2h3-9471-m l Care PA 27e-fa50c2 [facility] nn d1f58b 2014-11-28 2014-11-28 Unknown [facility]Flavo Comprehensi 6b6d b225-5 [facility] 21:00:00 21:00:00 r ve Heart 21a-4684-b l Care PA l8y-264z2j [facility] nn 280014 5364-03-18 2014-11-28 Unknown nullFlavo Comprehensi e859 96b4-f [facility] 21:00:00 21:00:00 r ve Heart 77d-4cf3-9 l Care PA 522-bb7e93 [facility] nn 62dd6d 2014-11-28 2014-11-28 Unknown nullFlavo Comprehensi 4314 3faa-a [facility] 21:00:00 21:00:00 r ve Heart 30a-4920-8 l Care PA j51-xnyu2a [facility] nn 4d8fc6 2014-11-28 2014-11-28 Unknown [facility]Flavo Comprehensi 1f02 5b44-6 [facility] 21:00:00 21:00:00 r ve Heart fac-4822-8 l Care PA 364-da9b93 [facility] nn 3eb16e 2014-11-28 2014-11-28 Unknown nullFlavo Comprehensi fd20 08be-0 [facility] 21:00:00 21:00:00 r ve Heart 7r6-0l26-a l Care PA b05-02r2r6 [facility] nn 19cad0 2014-11-28 2014-11-28 Unknown nullFlavo Comprehensi 3bde a484-b [facility] 20:00:00 20:00:00 r ve Heart e2c-238o-c l Care PA 8fe-dbe9fd [facility] nn 41fecd 2014-11-28 2014-11-28 Unknown nullFlavo Comprehensi 1049 f8ae-3 [facility] 20:00:00 20:00:00 r ve Heart 0t6-35cm-3 l Care PA d93-zzy38s [facility] nn e07da0 2014-11-28 2014-11-28 Unknown [facility]Flavo Comprehensi 431b cfde-5 [facility] 20:00:00 20:00:00 r ve Heart v78-7217-6 l Care PA w36-311ikr [facility] nn 2572ef 2014-11-28 2014-11-28 Unknown [facility]Flavo Compre[facility]si e6ce a2fc-9 [facility] 20:00:00 20:00:00 r ve Heart 4b5-9w4t-0 l Care PA 5h2-x15998 [facility] nn 1cdf15 2014-11-28 2014-11-28 Unknown [facility]Flavo Comprehensi b638 516b-4 [facility] 20:00:00 20:00:00 r ve Heart 258-467d-b l Care PA 5s7-5q3e86 [facility] nn c446e1 2014-11-28 2014-11-28 Unknown nullFlavo Comprehensi 0432 798a-0 [facility] 20:00:00 20:00:00 r ve Heart 562-43b4-a l Care PA w36-5166p1 [facility] nn q91296 2014-11-28 2014-11-28 Unknown [facility]Flavo Comprehensi 8b0e 18e8-8 [facility] 20:00:00 20:00:00 r ve Heart 813-4e4e-b l Care PA a25-9l9074 [facility] nn 490d3a 2014-11-28 2014-11-28 Unknown nullFlavo Comprehensi f77c eb7a-f [facility] 20:00:00 20:00:00 r ve Heart 933-447e-b l Care PA 96f-o83637 [facility] nn b255a3 2014-11-28 2014-11-28 Unknown nullFlavo Comprehensi 5bbf 2cf7-d [facility] 20:00:00 20:00:00 r ve Heart u84-46x1-3 l Care PA 226-18f58c [facility] nn 322b2e 2014-11-28 2014-11-28 Unknown nullFlavo Comprehensi c49e b2b2-a [facility] 20:00:00 20:00:00 r ve Heart e4y-134q-7 l Care PA 4x0-7b8283 [facility] nn 80v010 2014-11-28 2014-11-28 Unknown nullFlavo Comprehensi e3b6 958a-e [facility] 20:00:00 20:00:00 r ve Heart 0ec-491d-8 l Care PA 8o2-07ir5t [facility] nn y7z382 2014-11-28 2014-11-28 Unknown nullFlavo Comprehensi c522 4729-2 [facility] 20:00:00 20:00:00 r ve Heart 93d-4f17-8 l Care PA 35a-c7e1bb [facility] nn 3tg466 2014-11-28 2014-11-28 Unknown nullFlavo Comprehensi 3bde a484-b [facility] 20:00:00 20:00:00 r ve Heart w1k-850o-r l Care PA 8fe-dbe9fd [facility] nn 41fecd 2014-11-28 2014-11-28 Unknown nullFlavo Comprehensi 1049 f8ae-3 [facility] 20:00:00 20:00:00 r ve Heart 2v2-92ll-3 l Care PA e27-oeq31k [facility] nn e07da0 2014-11-28 2014-11-28 Unknown [facility]Flavo Comprehensi 431b cfde-5 [facility] 20:00:00 20:00:00 r ve Heart y04-0675-2 l Care PA i18-637erh [facility] nn 2572ef 2014-11-28 2014-11-28 Unknown nullFlavo Comprehensi e6ce a2fc-9 [facility] 20:00:00 20:00:00 r ve Heart 1m1-1e1s-4 l Care PA 8e8-e64936 [facility] nn 1cdf15 2014-11-28 2014-11-28 Unknown nullFlavo Comprehensi b638 516b-4 [facility] 20:00:00 20:00:00 r ve Heart 258-467d-b l Care PA 6n6-5v8a34 [facility] nn c446e1 2014-11-28 2014-11-28 Unknown nullFlavo Comprehensi 0432 798a-0 [facility] 20:00:00 20:00:00 r ve Heart 562-43b4-a l Care PA r37-4984n0 [facility] nn q62991 2014-11-28 2014-11-28 Unknown nullFlavo Comprehensi 8b0e 18e8-8 [facility] 20:00:00 20:00:00 r ve Heart 813-4e4e-b l Care PA q00-9p7598 [facility] nn 490d3a 2014-11-28 2014-11-28 Unknown nullFlavo Comprehensi f77c eb7a-f [facility] 20:00:00 20:00:00 r ve Heart 933-447e-b l Care PA 96f-r31652 [facility] nn b255a3 2014-11-28 2014-11-28 Unknown nullFlavo Comprehensi 5bbf 2cf7-d [facility] 20:00:00 20:00:00 r ve Heart l77-74j1-4 l Care PA 226-18f58c [facility] nn 322b2e 2014-11-28 2014-11-28 Unknown nullFlavo Comprehensi c49e b2b2-a [facility] 20:00:00 20:00:00 r ve Heart e9k-955u-0 l Care PA 4w4-0a2283 [facility] nn 60p864 2014-11-28 2014-11-28 Unknown nullFlavo Comprehensi e3b6 958a-e [facility] 20:00:00 20:00:00 r ve Heart 0ec-491d-8 l Care PA 5h9-63pm9k [facility] nn e1o691 2014-11-28 2014-11-28 Unknown nullFlavo Comprehensi c522 4729-2 [facility] 20:00:00 20:00:00 r ve Heart 93d-4f17-8 l Care PA 35a-c7e1bb [facility] nn 1ki932 2014-11-28 2014-11-28 Unknown nullFlavo Comprehensi 3bde a484-b [facility] 20:00:00 20:00:00 r ve Heart n3a-961c-z l Care PA 8fe-dbe9fd [facility] nn 41fecd 2014-11-28 2014-11-28 Unknown nullFlavo Comprehensi e6ce a2fc-9 [facility] 20:00:00 20:00:00 r ve Heart 3y4-9j0o-8 l Care PA 5e4-u88129 [facility] nn 1cdf15 2014-11-28 2014-11-28 Unknown nullFlavo Comprehensi 1049 f8ae-3 [facility] 20:00:00 20:00:00 r ve Heart 8h0-12km-1 l Care PA v83-crs82z [facility] nn e07da0 2014-11-28 2014-11-28 Unknown nullFlavo Comprehensi 5bbf 2cf7-d [facility] 20:00:00 20:00:00 r ve Heart y48-58h7-5 l Care PA 226-18f58c [facility] nn 322b2e 2014-11-28 2014-11-28 Unknown nullFlavo Comprehensi 8b0e 18e8-8 [facility] 20:00:00 20:00:00 r ve Heart 813-4e4e-b l Care PA i86-1j6696 [facility] nn 490d3a 2014-11-28 2014-11-28 Unknown nullFlavo Comprehensi b638 516b-4 [facility] 20:00:00 20:00:00 r ve Heart 258-467d-b l Care PA 4a4-6h4x43 [facility] nn c446e1 2014-11-28 2014-11-28 Unknown nullFlavo Comprehensi 0432 798a-0 [facility] 20:00:00 20:00:00 r ve Heart 562-43b4-a l Care PA e70-6957x5 [facility] nn z20415 2014-11-28 2014-11-28 Unknown nullFlavo Comprehensi 431b cfde-5 [facility] 20:00:00 20:00:00 r ve Heart z87-9348-7 l Care PA h32-262bnu [facility] nn 2572ef 2014-11-28 2014-11-28 Unknown nullFlavo Comprehensi c49e b2b2-a [facility] 20:00:00 20:00:00 r ve Heart d3i-364s-8 l Care PA 7l8-5q6150 [facility] nn 76n467 2014-11-28 2014-11-28 Unknown nullFlavo Comprehensi f77c eb7a-f [facility] 20:00:00 20:00:00 r ve Heart 933-447e-b l Care PA 96f-l76626 [facility] nn b255a3 2014-11-28 2014-11-28 Unknown nullFlavo Comprehensi e3b6 958a-e [facility] 20:00:00 20:00:00 r ve Heart 0ec-491d-8 l Care PA 8f2-37ky4f [facility] nn i3k241 2014-11-28 2014-11-28 Unknown nullFlavo Comprehensi c522 4729-2 [facility] 20:00:00 20:00:00 r ve Heart 93d-4f17-8 l Care PA 35a-c7e1bb [facility] nn 2tb214 2014-10-26 2014-10-26 Unknown nullFlavo Comprehensi 7bde c26f-c [facility] 16:34:00 16:34:00 r ve Heart 055-457d-9 l Care PA 5fc-29e2ff [facility] nn 81fd93 2014-10-26 2014-10-26 Unknown nullFlavo Comprehensi 5fcc 3749-7 [facility] 16:34:00 16:34:00 r ve Heart ee3-423e-9 l Care PA 3a9-935445 [facility] nn 36ae3b 2014-10-26 2014-10-26 Unknown nullFlavo Comprehensi 5ad8 2f83-4 [facility] 16:34:00 16:34:00 r ve Heart j8w-5mzm-9 l Care PA 28e-418420 [facility] nn 2e936g 2014-10-26 2014-10-26 Unknown nullFlavo Comprehensi 8c7e 7418-a [facility] 16:34:00 16:34:00 r ve Heart 3e4-69v9-9 l Care PA 3ec-9dcd24 [facility] nn 1f6126 2014-10-26 2014-10-26 Unknown nullFlavo Comprehensi bf3b f735-1 [facility] 16:34:00 16:34:00 r ve Heart ea9-4727-8 l Care PA eee-q05182 [facility] nn 5d9a9c 2014-10-26 2014-10-26 Unknown nullFlavo Comprehensi 12a1 6011-e [facility] 16:34:00 16:34:00 r ve Heart 6ce-4fdf-9 l Care PA 60a-ab5dd8 [facility] nn 7e6347 2014-10-26 2014-10-26 Unknown nullFlavo Comprehensi 4db8 527c-2 [facility] 16:34:00 16:34:00 r ve Heart 48b-48ae-8 l Care PA 628-49x127 [facility] nn 0fff73 2014-10-26 2014-10-26 Unknown nullFlavo Comprehensi 7bde c26f-c [facility] 16:34:00 16:34:00 r ve Heart 055-457d-9 l Care PA 5fc-29e2ff [facility] nn 81fd93 2014-10-26 2014-10-26 Unknown nullFlavo Comprehensi 5fcc 3749-7 [facility] 16:34:00 16:34:00 r ve Heart ee3-423e-9 l Care PA 1h9-669092 [facility] nn 36ae3b 2014-10-26 2014-10-26 Unknown nullFlavo Comprehensi 5ad8 2f83-4 [facility] 16:34:00 16:34:00 r ve Heart x8h-3reu-1 l Care PA 28e-300072 [facility] nn 6q968s 2014-10-26 2014-10-26 Unknown nullFlavo Comprehensi 8c7e 7418-a [facility] 16:34:00 16:34:00 r ve Heart 7m5-48f1-7 l Care PA 3ec-9dcd24 [facility] nn 0u8068 2014-10-26 2014-10-26 Unknown nullFlavo Comprehensi bf3b f735-1 [facility] 16:34:00 16:34:00 r ve Heart ea9-4727-8 l Care PA eee-p76144 [facility] nn 5d9a9c 2014-10-26 2014-10-26 Unknown nullFlavo Comprehensi 12a1 6011-e [facility] 16:34:00 16:34:00 r ve Heart 6ce-4fdf-9 l Care PA 60a-ab5dd8 [facility] nn 6t6500 2014-10-26 2014-10-26 Unknown nullFlavo Comprehensi 4db8 527c-2 [facility] 16:34:00 16:34:00 r ve Heart 48b-48ae-8 l Care PA 628-52d410 [facility] nn 0fff73 2014-10-26 2014-10-26 Unknown nullFlavo Comprehensi 7bde c26f-c [facility] 16:34:00 16:34:00 r ve Heart 055-457d-9 l Care PA 5fc-29e2ff [facility] nn 81fd93 2014-10-26 2014-10-26 Unknown nullFlavo Comprehensi bf3b f735-1 [facility] 16:34:00 16:34:00 r ve Heart ea9-4727-8 l Care PA eee-x83139 [facility] nn 5d9a9c 2014-10-26 2014-10-26 Unknown nullFlavo Comprehensi 12a1 6011-e [facility] 16:34:00 16:34:00 r ve Heart 6ce-4fdf-9 l Care PA 60a-ab5dd8 [facility] nn 4g5940 2014-10-26 2014-10-26 Unknown nullFlavo Comprehensi 4db8 527c-2 [facility] 16:34:00 16:34:00 r ve Heart 48b-48ae-8 l Care PA 628-39g952 [facility] nn 0fff73 2014-10-26 2014-10-26 Unknown nullFlavo Comprehensi 5ad8 2f83-4 [facility] 16:34:00 16:34:00 [facility] ve Heart g6g-7qzf-1 l Care PA 28e-318870 [facility] nn 9y438h 2014-10-26 2014-10-26 Unknown nullFlavo Comprehensi 8c7e 7418-a [facility] 16:34:00 16:34:00 r ve Heart 6e0-07d7-6 l Care PA 3ec-9dcd24 [facility] nn 4u2999 2014-10-26 2014-10-26 Unknown nullFlavo Comprehensi 5fcc 3749-7 [facility] 16:34:00 16:34:00 r ve Heart ee3-423e-9 l Care PA 5v2-611083 [facility] nn 36ae3b 2014-10-26 2014-10-26 Unknown nullFlavo Comprehensi 5ecc 3ffb-8 [facility] 15:34:00 15:34:00 r ve Heart 41a-4b6b-b l Care PA 1ff-0161f7 [facility] nn 1ba6e2 2014-10-26 2014-10-26 Unknown nullFlavo Comprehensi dd4d 3ade-2 [facility] 15:34:00 15:34:00 r ve Heart 507-4687-b l Care PA 867-2tn750 [facility] nn 8bcf55 2014-10-26 2014-10-26 Unknown nullFlavo Comprehensi a1b2 1954-4 [facility] 15:34:00 15:34:00 r ve Heart 7s3-0cr1-3 l Care PA t8q-38jn24 [facility] nn o30006 2014-10-26 2014-10-26 Unknown nullFlavo Comprehensi 90e3 6b79-2 [facility] 15:34:00 15:34:00 r ve Heart 8p9-4000-1 l Care PA 847-0e42fc [facility] nn a050a6 2014-10-26 2014-10-26 Unknown nullFlavo Comprehensi 5bc0 e3d1-a [facility] 15:34:00 15:34:00 r ve Heart 9k8-5pbi-8 l Care PA 326-6f11e2 [facility] nn 2311ff 2014-10-26 2014-10-26 Unknown nullFlavo Comprehensi de6b 6e79-7 [facility] 15:34:00 15:34:00 r ve Heart afb-4450-b l Care PA 59b-0rf842 [facility] nn d68b18 2014-10-26 2014-10-26 Unknown nullFlavo Comprehensi 57e3 37e9-b [facility] 15:34:00 15:34:00 r ve Heart 954-4742-a l Care PA 23b-gn090p [facility] nn 4e4ae5 2014-10-26 2014-10-26 Unknown nullFlavo Comprehensi 78df 08f3-9 [facility] 15:34:00 15:34:00 r ve Heart 465-47d6-8 l Care PA 583-003a2b [facility] nn 54cdcd 2014-10-26 2014-10-26 Unknown nullFlavo Comprehensi f1de 1752-d [facility] 15:34:00 15:34:00 r ve Heart ed9-472f-8 l Care PA 4x6-8n0540 [facility] nn b9a38d 2014-10-26 2014-10-26 Unknown nullFlavo Comprehensi e75c 3f32-f [facility] 15:34:00 15:34:00 r ve Heart 18c-4e22-9 l Care PA 466-79505x [facility] nn 6b88f6 2014-10-26 2014-10-26 Unknown nullFlavo Comprehensi 0643 12a8-f [facility] 15:34:00 15:34:00 r ve Heart fb4-402e-8 l Care PA 4bd-407e1c [facility] nn 7abcf8 2014-10-26 2014-10-26 Unknown nullFlavo Comprehensi 2770 0c76-8 [facility] 15:34:00 15:34:00 r ve Heart h68-59ku-s l Care PA c7z-32654v [facility] nn 3o0695 2014-10-26 2014-10-26 Unknown nullFlavo Comprehensi 5ecc 3ffb-8 [facility] 15:34:00 15:34:00 r ve Heart 41a-4b6b-b l Care PA 1ff-0161f7 [facility] nn 1ba6e2 2014-10-26 2014-10-26 Unknown nullFlavo Comprehensi dd4d 3ade-2 [facility] 15:34:00 15:34:00 r ve Heart 507-4687-b l Care PA 867-4jo759 [facility] nn 8bcf55 2014-10-26 2014-10-26 Unknown nullFlavo Comprehensi a1b2 1954-4 [facility] 15:34:00 15:34:00 r ve Heart 8i0-8qw2-4 l Care PA e0y-85tq66 [facility] nn m23841 2014-10-26 2014-10-26 Unknown nullFlavo Comprehensi 90e3 6b79-2 [facility] 15:34:00 15:34:00 r ve Heart 6c6-6631-4 l Care PA 847-0e42fc [facility] nn a050a6 2014-10-26 2014-10-26 Unknown nullFlavo Comprehensi 5bc0 e3d1-a [facility] 15:34:00 15:34:00 r ve Heart 1d5-7qlw-1 l Care PA 326-6f11e2 [facility] nn 2311ff 2014-10-26 2014-10-26 Unknown nullFlavo Comprehensi de6b 6e79-7 [facility] 15:34:00 15:34:00 r ve Heart afb-4450-b l Care PA 59b-8nt011 [facility] nn d68b18 2014-10-26 2014-10-26 Unknown nullFlavo Comprehensi 57e3 37e9-b [facility] 15:34:00 15:34:00 r ve Heart 954-4742-a l Care PA 23b-on504w [facility] nn 4e4ae5 2014-10-26 2014-10-26 Unknown nullFlavo Comprehensi 78df 08f3-9 [facility] 15:34:00 15:34:00 r ve Heart 465-47d6-8 l Care PA 583-003a2b [facility] nn 54cdcd 2014-10-26 2014-10-26 Unknown nullFlavo Comprehensi f1de 1752-d [facility] 15:34:00 15:34:00 r ve Heart ed9-472f-8 l Care PA 8b0-2w1728 [facility] nn b9a38d 2014-10-26 2014-10-26 Unknown nullFlavo Comprehensi e75c 3f32-f [facility] 15:34:00 15:34:00 r ve Heart 18c-4e22-9 l Care PA 466-72535e [facility] nn 6b88f6 2014-10-26 2014-10-26 Unknown nullFlavo Comprehensi 0643 12a8-f [facility] 15:34:00 15:34:00 r ve Heart fb4-402e-8 l Care PA 4bd-407e1c [facility] nn 7abcf8 2014-10-26 2014-10-26 Unknown nullFlavo Comprehensi 2770 0c76-8 [facility] 15:34:00 15:34:00 r ve Heart f98-79em-g l Care PA w6d-91460o [facility] nn 2u6350 2014-10-26 2014-10-26 Unknown nullFlavo Comprehensi 5ecc 3ffb-8 [facility] 15:34:00 15:34:00 r ve Heart 41a-4b6b-b l Care PA 1ff-0161f7 [facility] nn 1ba6e2 2014-10-26 2014-10-26 Unknown nullFlavo Comprehensi 90e3 6b79-2 [facility] 15:34:00 15:34:00 r ve Heart 9m6-3215-4 l Care PA 847-0e42fc [facility] nn a050a6 2014-10-26 2014-10-26 Unknown nullFlavo Comprehensi dd4d 3ade-2 [facility] 15:34:00 15:34:00 r ve Heart 507-4687-b l Care PA 867-8yr462 [facility] nn 8bcf55 2014-10-26 2014-10-26 Unknown nullFlavo Comprehensi f1de 1752-d [facility] 15:34:00 15:34:00 r ve Heart ed9-472f-8 l Care PA 2n2-4k1130 [facility] nn b9a38d 2014-10-26 2014-10-26 Unknown nullFlavo Comprehensi 57e3 37e9-b [facility] 15:34:00 15:34:00 r ve Heart 954-4742-a l Care PA 23b-ks892z [facility] nn 4e4ae5 2014-10-26 2014-10-26 Unknown nullFlavo Comprehensi 5bc0 e3d1-a [facility] 15:34:00 15:34:00 r ve Heart 5m9-3dxe-7 l Care PA 326-6f11e2 [facility] nn 2311ff 2014-10-26 2014-10-26 Unknown nullFlavo Comprehensi de6b 6e79-7 [facility] 15:34:00 15:34:00 r ve Heart afb-4450-b l Care PA 59b-8bq122 [facility] nn d68b18 2014-10-26 2014-10-26 Unknown nullFlavo Comprehensi a1b2 1954-4 [facility] 15:34:00 15:34:00 r ve Heart 0j4-2na5-8 l Care PA e0u-08jw33 [facility] nn r57033 2014-10-26 2014-10-26 Unknown nullFlavo Comprehensi e75c 3f32-f [facility] 15:34:00 15:34:00 r ve Heart 18c-4e22-9 l Care PA 466-31790t [facility] nn 6b88f6 2014-10-26 2014-10-26 Unknown nullFlavo Comprehensi 78df 08f3-9 [facility] 15:34:00 15:34:00 r ve Heart 465-47d6-8 l Care PA 583-003a2b [facility] nn 54cdcd 2014-10-26 2014-10-26 Unknown nullFlavo Comprehensi 0643 12a8-f [facility] 15:34:00 15:34:00 r ve Heart fb4-402e-8 l Care PA 4bd-407e1c [facility] nn 7abcf8 2014-10-26 2014-10-26 Unknown nullFlavo Comprehensi 2770 0c76-8 [facility] 15:34:00 15:34:00 r ve Heart r86-50wy-c l Care PA a4i-40750g [facility] nn 8z4508 2014-06-04 2014-06-04 Unknown nullFlavo Comprehensi f683 0800-0 [facility] 23:05:00 23:05:00 [facility] ve Heart fc1-481c-a l Care PA [id number] [facility] nn c75c2d 2014-06-04 2014-06-04 Unknown nullFlavo Comprehensi 3603 7cef-2 Memoria 23:05:00 23:05:00 [facility] ve Heart dc6-4f88-9 l Care PA h41-02awp5 [facility] nn d70e22 2014-06-04 2014-06-04 Unknown nullFlavo Comprehensi f4e3 bdad-a [facility] 23:05:00 23:05:00 [facility] ve Heart 748-4d71-b l Care PA [id number]-8607hp [facility] nn 310c0c 2014-06-04 2014-06-04 Unknown nullFlavo Comprehensi f037 c320-b [facility]oria 23:05:00 23:05:00 [facility] ve Heart 3cb-41ea-a l Care PA h71-q24a68 [facility] nn 3yx605 2014-06-04 2014-06-04 Unknown nullFlavo Comprehensi 6e84 60f2-7 [facility]oria 23:05:00 23:05:00 [facility] ve Heart h99-96lw-6 l Care PA 1q5-6w374e [facility] nn 1c1aad 2014-06-04 2014-06-04 Unknown nullFlavo Comprehensi 6c0a 5f2e-7 [facility]oria 23:05:00 23:05:00 [facility] ve Heart 507-4dfc-a l Care PA 896-ad7aaa [facility] nn 19a3d6 2014-06-04 2014-06-04 Unknown nullFlavo Comprehensi ae2d 04ba-b [facility] 23:05:00 23:05:00 [facility] ve Heart ef1-4c2a-b l Care PA [id number] Haylee nn 90845p 2014-06-04 2014-06-04 Unknown nullFlavo Comprehensi f683 0800-0 [facility]oria 23:05:00 23:05:00 [facility] ve Heart fc1-481c-a l Care PA [id number] [facility]lee nn c75c2d 2014-06-04 2014-06-04 Unknown nullFlavo Comprehensi 3603 7cef-2 [facility] 23:05:00 23:05:00 [facility] ve Heart dc6-4f88-9 l Care PA a23-29yxt6 [facility]lee nn d70e22 2014-06-04 2014-06-04 Unknown nullFlavo Comprehensi f4e3 bdad-a [facility] 23:05:00 23:05:00 [facility] ve Heart 748-4d71-b l Care PA n0a-1925fl [facility] nn 310c0c 2014-06-04 2014-06-04 Unknown nullFlavo Comprehensi f037 c320-b [facility] 23:05:00 23:05:00 [facility] Heart 3cb-41ea-a l Care PA l93-k32r09 [facility] nn 4fy935 2014-06-04 2014-06-04 Unknown nullFlavo Comprehensi 6e84 60f2-7 [facility] 23:05:00 23:05:00 [facility] ve Heart e97-08eu-2 l Care PA 1q9-2w934c [facility]lee nn 1c1aad 2014-06-04 2014-06-04 Unknown nullFlavo Comprehensi 6c0a 5f2e-7 [facility] 23:05:00 23:05:00 [facility] ve Heart 507-4dfc-a l Care PA 896-ad7aaa [facility]lee nn 19a3d6 2014-06-04 2014-06-04 Unknown nullFlavo Comprehensi ae2d 04ba-b [facility] 23:05:00 23:05:00 [facility] Heart ef1-4c2a-b l Care PA [id number] [facility]lee nn 06507b 2014-06-04 2014-06-04 Unknown nullFlavo Comprehensi f683 0800-0 [facility] 23:05:00 23:05:00 [facility] Heart fc1-481c-a l Care PA [id number] [facility] nn c75c2d 2014-06-04 2014-06-04 Unknown nullFlavo Comprehensi 6e84 60f2-7 [facility] 23:05:00 23:05:00 [facility] Heart x67-96iw-1 l Care PA 2g1-6u315i [facility]lee nn 1c1aad 2014-06-04 2014-06-04 Unknown nullFlavo Comprehensi 6c0a 5f2e-7 [facility] 23:05:00 23:05:00 [facility] Heart 507-4dfc-a l Care PA 896-ad7aaa [facility]lee nn 19a3d6 2014-06-04 2014-06-04 Unknown nullFlavo Comprehensi ae2d 04ba-b [facility] 23:05:00 23:05:00 [facility] Heart ef1-4c2a-b l Care PA [id number] Haylee nn 09101a 2014-06-04 2014-06-04 Unknown nullFlavo Comprehensi f4e3 bdad-a [facility] 23:05:00 23:05:00 [facility] ve Heart 748-4d71-b l Care PA c2y-4993lc [facility] nn 310c0c 2014-06-04 2014-06-04 Unknown nullFlavo Comprehensi f037 c320-b [facility] 23:05:00 23:05:00 [facility] Heart 3cb-41ea-a l Care PA [id number]-z00b95 [facility] nn 7qp056 2014-06-04 2014-06-04 Unknown nullFlavo Comprehensi 3603 7cef-2 [facility]oria 23:05:00 23:05:00 [facility] Heart dc6-4f88-9 l Care PA w41-72owb4 [facility]lee nn d70e22 2014-06-04 2014-06-04 Unknown nullFlavo Comprehensi 7fd6 da90-a [facility] 22:05:00 22:05:00 [facility] 0z9-5ode-k l Care PA 321-3x789i [facility]lee nn 83c71b 2014-06-04 2014-06-04 Unknown nullFlavo Comprehensi c2bf 83ca-a [facility] 22:05:00 22:05:00 [facility] 3g7-04k1-f l Care PA 8df-ac1e4a [facility]lee nn 85a319 2014-06-04 2014-06-04 Unknown nullFlavo Comprehensi 244b 8935-1 [facility]oria 22:05:00 22:05:00 [facility] ve Heart t62-4020-f l Care PA y2o-og15p8 [facility]lee nn 5deeeb 2014-06-04 2014-06-04 Unknown nullFlavo Comprehensi d1db 7126-8 [facility]oria 22:05:00 22:05:00 [facility] Heart j8k-8063-0 l Care PA e1c-36112i [facility]lee nn e7fdc3 2014-06-04 2014-06-04 Unknown nullFlavo Comprehensi be4a e6b3-e [facility]oria 22:05:00 22:05:00 [facility] Heart q6i-9a3o-3 l Care PA aa0-05092y [facility]lee nn 746aa8 2014-06-04 2014-06-04 Unknown nullFlavo Comprehensi 8efd 88cc-c [facility]oria 22:05:00 22:05:00 [facility] Heart 09b-4714-8 l Care PA 1v5-7ohz4w [facility]lee nn f6b1ca 2014-06-04 2014-06-04 Unknown nullFlavo Comprehensi f8de 47fd-6 [facility] 22:05:00 22:05:00 [facility] fee-4f25-9 l Care PA [id number] [facility]lee nn 5uj381 2014-06-04 2014-06-04 Unknown nullFlavo Comprehensi 4adc 9261-4 [facility]oria 22:05:00 22:05:00 [facility] Heart 0y8-4a5c-g l Care PA e0v-3dd6f2 [facility]lee nn 315cb6 2014-06-04 2014-06-04 Unknown nullFlavo Comprehensi 2cc4 d6c1-5 [facility]oria 22:05:00 22:05:00 [facility] Heart 090-4c86-a l Care PA bad-mv3982 [facility]lee nn b7b0e6 2014-06-04 2014-06-04 Unknown nullFlavo Comprehensi 1d99 7291-d [facility] 22:05:00 22:05:00 [facility] Heart dbe-4fc5-8 l Care PA [id number] [facility] nn ba49a4 2014-06-04 2014-06-04 Unknown nullFlavo Comprehensi 455f db51-5 [facility] 22:05:00 22:05:00 [facility] Heart 6eb-4eae-a l Care PA v64-8t246t Haylee nn lyl100 2014-06-04 2014-06-04 Unknown nullFlavo Comprehensi b24f 0be2-f [facility] 22:05:00 22:05:00 [facility] ve [facility] 980-4915-a l Care PA y3h-866ls2 Haylee nn 7w3527 2014-06-04 2014-06-04 Unknown nullFlavo Comprehensi 4bd6 fbcc-a [facility] 22:05:00 22:05:00 [facility] ve [facility] d0a-27z6-0 l Care PA c97-vdd6cd Haylee nn 1a1bce 2014-06-04 2014-06-04 Unknown nullFlavo Comprehensi 7fd6 da90-a [facility] 22:05:00 22:05:00 [facility] ve [facility] 8q5-1qrf-w l Care PA 321-0i637x Haylee nn 83c71b 2014-06-04 2014-06-04 Unknown nullFlavo Comprehensi c2bf 83ca-a [facility] 22:05:00 22:05:00 [facility] ve [facility] 5a2-13g4-a l Care PA 8df-ac1e4a Haylee nn 58s023 2014-06-04 2014-06-04 Unknown nullFlavo Comprehensi 244b 8935-1 [facility] 22:05:00 22:05:00 [facility] ve [facility] x26-2735-q l Care PA f8y-fg50p5 Haylee nn 5deeeb 2014-06-04 2014-06-04 Unknown nullFlavo Comprehensi d1db 7126-8 [facility] 22:05:00 22:05:00 [facility] ve [facility] c3k-3177-1 l Care PA s6x-56984s Haylee nn e7fdc3 2014-06-04 2014-06-04 Unknown nullFlavo Comprehensi be4a e6b3-e [facility] 22:05:00 22:05:00 [facility] ve [facility] v4u-1f5p-2 l Care PA aa0-83413o Haylee nn 746aa8 2014-06-04 2014-06-04 Unknown nullFlavo Comprehensi 8efd 88cc-c [facility] 22:05:00 22:05:00 [facility] ve [facility] 09b-4714-8 l Care PA 4q1-5kkv9k Haylee nn f6b1ca 2014-06-04 2014-06-04 Unknown nullFlavo Comprehensi f8de 47fd-6 [facility] 22:05:00 22:05:00 [facility] ve Heart fee-4f25-9 l Care PA ae0-737166 Haylee nn 0jt120 2014-06-04 2014-06-04 Unknown nullFlavo Comprehensi 4adc 9261-4 [facility] 22:05:00 22:05:00 [facility] ve Heart 7a2-4u4n-n l Care PA u5i-6id8p1 Haylee nn 315cb6 2014-06-04 2014-06-04 Unknown nullFlavo Comprehensi 2cc4 d6c1-5 [facility] 22:05:00 22:05:00 [facility] ve Heart 090-4c86-a l Care PA bad-vn9452 Haylee nn b7b0e6 2014-06-04 2014-06-04 Unknown nullFlavo Comprehensi 1d99 7291-d [facility] 22:05:00 22:05:00 [facility] ve Heart dbe-4fc5-8 l Care PA 953-7rb338 Haylee nn ba49a4 2014-06-04 2014-06-04 Unknown nullFlavo Comprehensi 455f db51-5 [facility] 22:05:00 22:05:00 r ve Heart 6eb-4eae-a l Care PA b46-0q007s [facility] nn bfk278 2014-06-04 2014-06-04 Unknown nullFlavo Comprehensi b24f 0be2-f [facility] 22:05:00 22:05:00 r ve Heart 980-4915-a l Care PA s8j-883ij7 Haylee nn 3m3121 2014-06-04 2014-06-04 Unknown nullFlavo Comprehensi 4bd6 fbcc-a [facility] 22:05:00 22:05:00 [facility] ve Heart j4u-82y5-4 l Care PA q51-ktp8hm Haylee nn 1a1bce 2014-06-04 2014-06-04 Unknown nullFlavo Comprehensi 7fd6 da90-a [facility] 22:05:00 22:05:00 r ve Heart 9j8-7wmb-v l Care PA 321-5c893t [facility] nn 83c71b 2014-06-04 2014-06-04 Unknown nullFlavo Comprehensi c2bf 83ca-a [facility] 22:05:00 22:05:00 r ve Heart 2e3-98q1-e l Care PA 8df-ac1e4a [facility] nn 41m826 2014-06-04 2014-06-04 Unknown nullFlavo Comprehensi be4a e6b3-e [facility] 22:05:00 22:05:00 r ve Heart e0y-0w0n-4 l Care PA aa0-54073u [facility] nn 746aa8 2014-06-04 2014-06-04 Unknown nullFlavo Comprehensi 244b 8935-1 [facility] 22:05:00 22:05:00 r ve Heart d17-7943-g l Care PA k5q-yb25h9 [facility] nn 5deeeb 2014-06-04 2014-06-04 Unknown nullFlavo Comprehensi 1d99 7291-d [facility] 22:05:00 22:05:00 r ve Heart dbe-4fc5-8 l Care PA 953-7el261 [facility] nn ba49a4 2014-06-04 2014-06-04 Unknown nullFlavo Comprehensi 4adc 9261-4 [facility] 22:05:00 22:05:00 r ve Heart 7u4-2j2a-o l Care PA d1s-4ah7w7 [facility] nn 315cb6 2014-06-04 2014-06-04 Unknown nullFlavo Comprehensi 8efd 88cc-c [facility] 22:05:00 22:05:00 r ve Heart 09b-4714-8 l Care PA 1u4-3yqg1k [facility] nn f6b1ca 2014-06-04 2014-06-04 Unknown nullFlavo Comprehensi f8de 47fd-6 [facility] 22:05:00 22:05:00 r ve Heart fee-4f25-9 l Care PA ae0-556122 [facility] nn 1ul019 2014-06-04 2014-06-04 Unknown nullFlavo Comprehensi d1db 7126-8 [facility] 22:05:00 22:05:00 [facility] ve Heart q1c-7503-2 l Care PA t5u-41181t Haylee nn e7fdc3 2014-06-04 2014-06-04 Unknown nullFlavo Comprehensi 455f db51-5 [facility] 22:05:00 22:05:00 [facility] ve Heart 6eb-4eae-a l Care PA b86-5n634y Haylee nn ikd967 2014-06-04 2014-06-04 Unknown nullFlavo Comprehensi 2cc4 d6c1-5 [facility] 22:05:00 22:05:00 [facility] ve Heart 090-4c86-a l Care PA bad-ub9983 Haylee nn b7b0e6 2014-06-04 2014-06-04 Unknown nullFlavo Comprehensi b24f 0be2-f [facility] 22:05:00 22:05:00 [facility] ve Heart 980-4915-a l Care PA x4u-224ur7 Haylee nn 9t5852 2014-06-04 2014-06-04 Unknown nullFlavo Comprehensi 4bd6 fbcc-a [facility] 22:05:00 22:05:00 [facility] ve Heart z7i-60h4-6 l Care PA k38-ofd4zm [facility]lee nn 1a1bce 2014-06-04 2014-06-04 Outpatient Comprehen Comprehensi 3 87807 [facility] 17:05:00 17:05:00 [facility] ut Heart Care PA Care PA 2014-06-04 2014-06-04 Outpatient Comprehen Comprehensi 3 60593 [facility] 17:05:00 17:05:00 [facility] PA Care PA 2014-05-23 2014-05-23 Unknown nullFlavo Comprehensi 9b0c 749d-a [facility] 20:16:00 20:16:00 [facility] ve Heart 0w7-3g73-k l Care PA 2da-pej030 Haylee nn 6e87dd 2014-05-23 2014-05-23 Unknown nullFlavo Comprehensi fcf4 c8ed-d [facility] 20:16:00 20:16:00 [facility] ve Heart 015-4af2-b l Care PA ca3-c773ac Haylee nn e2a5cc 2014-05-23 2014-05-23 Unknown nullFlavo Comprehensi 2b6e 5fdc-2 [facility] 20:16:00 20:16:00 [facility] ve Heart d49-6i4c-p l Care PA u35-szt0kz Haylee nn 03458a 2014-05-23 2014-05-23 Unknown nullFlavo Comprehensi 5739 b8dd-3 [facility] 20:16:00 20:16:00 [facility] ve Heart 261-4944-8 l Care PA 5d0-jc3t22 Haylee nn 9ba4ab 2014-05-23 2014-05-23 Unknown nullFlavo Comprehensi d8cb b448-9 [facility] 20:16:00 20:16:00 [facility] ve Heart 5e1-15jz-2 l Care PA 65d-eef39c Haylee nn 68a2e8 2014-05-23 2014-05-23 Unknown nullFlavo Comprehensi ec67 359c-9 [facility] 20:16:00 20:16:00 [facility] ve Heart q07-3543-n l Care PA h05-30h491 Haylee nn 6ab55d 2014-05-23 2014-05-23 Unknown nullFlavo Comprehensi 8d42 3ca3-c [facility] 20:16:00 20:16:00 [facility] ve Heart be1-4887-a l Care PA 153-5e2bdb Haylee nn 2b78d8 2014-05-23 2014-05-23 Unknown nullFlavo Comprehensi 9b0c 749d-a [facility] 20:16:00 20:16:00 [facility] ve Heart 6b8-3k50-q l Care PA 2da-mca751 Haylee nn 6e87dd 2014-05-23 2014-05-23 Unknown nullFlavo Comprehensi fcf4 c8ed-d [facility] 20:16:00 20:16:00 r ve Heart 015-4af2-b l Care PA ca3-c773ac Haylee nn e2a5cc 2014-05-23 2014-05-23 Unknown nullFlavo Comprehensi 2b6e 5fdc-2 [facility] 20:16:00 20:16:00 r ve Heart r03-5g2y-b l Care PA g60-wuc4rb Haylee nn 11259y 2014-05-23 2014-05-23 Unknown nullFlavo Comprehensi 5739 b8dd-3 [facility] 20:16:00 20:16:00 [facility] ve Heart 261-4944-8 l Care PA 3n8-nm9x64 [facility]lee nn 9ba4ab 2014-05-23 2014-05-23 Unknown nullFlavo Comprehensi d8cb b448-9 [facility] 20:16:00 20:16:00 [facility] ve Heart 5p0-34na-1 l Care PA 65d-eef39c Haylee nn 68a2e8 2014-05-23 2014-05-23 Unknown nullFlavo Comprehensi ec67 359c-9 [facility] 20:16:00 20:16:00 [facility] ve Heart y87-1443-j l Care PA j16-86f357 Haylee nn 6ab55d 2014-05-23 2014-05-23 Unknown nullFlavo Comprehensi 8d42 3ca3-c [facility] 20:16:00 20:16:00 r ve Heart be1-4887-a l Care PA 153-5e2bdb Haylee nn 2b78d8 2014-05-23 2014-05-23 Unknown nullFlavo Comprehensi 9b0c 749d-a [facility] 20:16:00 20:16:00 r ve Heart 6e5-0a18-e l Care PA 2da-umf525 Haylee nn 6e87dd 2014-05-23 2014-05-23 Unknown nullFlavo Comprehensi d8cb b448-9 [facility] 20:16:00 20:16:00 r ve Heart 7g2-98sl-1 l Care PA 65d-eef39c Haylee nn 68a2e8 2014-05-23 2014-05-23 Unknown nullFlavo Comprehensi ec67 359c-9 [facility] 20:16:00 20:16:00 r ve Heart r67-7214-t l Care PA p57-79i858 Haylee nn 6ab55d 2014-05-23 2014-05-23 Unknown nullFlavo Comprehensi 8d42 3ca3-c [facility] 20:16:00 20:16:00 [facility] ve Heart be1-4887-a l Care PA 153-5e2bdb Haylee nn 2b78d8 2014-05-23 2014-05-23 Unknown nullFlavo Comprehensi 2b6e 5fdc-2 [facility] 20:16:00 20:16:00 [facility] ve Heart n07-2y0z-h l Care PA r90-gav3yr Haylee nn 02844i 2014-05-23 2014-05-23 Unknown nullFlavo Comprehensi 5739 b8dd-3 [facility] 20:16:00 20:16:00 [facility] ve Heart 261-4944-8 l Care PA 6e9-cf5d39 Haylee nn 9ba4ab 2014-05-23 2014-05-23 Unknown nullFlavo Comprehensi fcf4 c8ed-d [facility] 20:16:00 20:16:00 [facility] ve Heart 015-4af2-b l Care PA ca3-c773ac Haylee nn e2a5cc 2014-05-23 2014-05-23 Unknown nullFlavo Comprehensi 203e 6fa3-d [facility] 19:16:00 19:16:00 [facility] ve Heart bdc-4bff-8 l Care PA 555-108157 Haylee nn 1d6c04 2014-05-23 2014-05-23 Unknown nullFlavo Comprehensi dc18 0652-3 [facility] 19:16:00 19:16:00 [facility] ve Heart de5-4854-8 l Care PA g31-zbkq34 [facility]lee nn ec60ec 2014-05-23 2014-05-23 Unknown nullFlavo Comprehensi 9a16 e598-f [facility] 19:16:00 19:16:00 [facility] ve Heart q1p-924z-x l Care PA 6h6-34e66t Haylee nn a86cfa 2014-05-23 2014-05-23 Unknown nullFlavo Comprehensi 0715 700a-e [facility] 19:16:00 19:16:00 [facility] ve Heart 595-4bf7-9 l Care PA dde-350e31 Haylee nn z8414w 2014-05-23 2014-05-23 Unknown nullFlavo Comprehensi 8114 0fc0-2 [facility] 19:16:00 19:16:00 r ve Heart 5n4-28o2-2 l Care PA 967-441934 Haylee nn 4e3e19 2014-05-23 2014-05-23 Unknown nullFlavo Comprehensi 2a8c d8c6-a [facility] 19:16:00 19:16:00 r ve Heart 6ba-4541-8 l Care PA 76a-2b87fc Haylee nn 2d4b9d 2014-05-23 2014-05-23 Unknown nullFlavo Comprehensi e387 6469-2 [facility] 19:16:00 19:16:00 r ve Heart 396-49bd-9 l Care PA 34e-241b8b Haylee nn 0af6d6 2014-05-23 2014-05-23 Unknown nullFlavo Comprehensi efc1 6040-2 [facility] 19:16:00 19:16:00 r ve Heart 1q4-99nj-g l Care PA 555-339dac Haylee nn dcb7cb 2014-05-23 2014-05-23 Unknown nullFlavo Comprehensi 2431 7a0f-1 [facility] 19:16:00 19:16:00 r ve Heart 4a4-130l-e l Care PA 6k8-o8w6kw Haylee nn a1c67d 2014-05-23 2014-05-23 Unknown nullFlavo Comprehensi 69fc 8f62-8 [facility] 19:16:00 19:16:00 r ve Heart 764-45a8-9 l Care PA 76e-d819e2 Haylee nn 103e33 2014-05-23 2014-05-23 Unknown nullFlavo Comprehensi 6f04 275e-3 [facility] 19:16:00 19:16:00 r ve Heart 156-491d-9 l Care PA 82d-4b1d1e Haylee nn 94244k 2014-05-23 2014-05-23 Unknown nullFlavo Comprehensi a10c 0017-2 [facility] 19:16:00 19:16:00 r ve Heart s24-390g-5 l Care PA 978-2e87e6 Haylee nn 379065 8730-09-10 2014-05-23 Unknown nullFlavo Comprehensi 3bc9 4325-5 [facility] 19:16:00 19:16:00 r ve Heart 19a-4dd9-a l Care PA 1be-4163a6 Haylee nn 90df66 2014-05-23 2014-05-23 Unknown nullFlavo Comprehensi 73c1 eeaa-3 [facility] 19:16:00 19:16:00 r ve Heart ed9-45d6-b l Care PA 8fa-d59e4f Haylee nn aad25b 2014-05-23 2014-05-23 Unknown nullFlavo Comprehensi e9b0 f3a1-2 [facility] 19:16:00 19:16:00 r ve Heart h8b-7l60-y l Care PA w7g-3t9877 Haylee nn 47c2de 2014-05-23 2014-05-23 Unknown nullFlavo Comprehensi 7a31 3e34-e [facility] 19:16:00 19:16:00 r ve Heart 400-4932-8 l Care PA u51-1wu22b Haylee nn c8ac2b 2014-05-23 2014-05-23 Unknown nullFlavo Comprehensi 203e 6fa3-d [facility] 19:16:00 19:16:00 r ve Heart bdc-4bff-8 l Care PA 555-318931 Haylee nn 1d6c04 2014-05-23 2014-05-23 Unknown nullFlavo Comprehensi dc18 0652-3 [facility]oria 19:16:00 19:16:00 r ve Heart de5-4854-8 l Care PA z92-boqs69 Haylee nn ec60ec 2014-05-23 2014-05-23 Unknown nullFlavo Comprehensi 9a16 e598-f [facility]oria 19:16:00 19:16:00 r ve Heart f9g-557a-u l Care PA 1s3-18y42d Haylee nn a86cfa 2014-05-23 2014-05-23 Unknown nullFlavo Comprehensi 0715 700a-e [facility] 19:16:00 19:16:00 r ve Heart 595-4bf7-9 l Care PA dde-350e31 Haylee nn f2824m 2014-05-23 2014-05-23 Unknown nullFlavo Comprehensi 8114 0fc0-2 [facility]oria 19:16:00 19:16:00 r ve Heart 8k1-57v6-4 l Care PA 967-832398 Haylee nn 4e3e19 2014-05-23 2014-05-23 Unknown nullFlavo Comprehensi 2a8c d8c6-a [facility]oria 19:16:00 19:16:00 r ve Heart 6ba-4541-8 l Care PA 76a-2b87fc Haylee nn 2d4b9d 2014-05-23 2014-05-23 Unknown nullFlavo Comprehensi e387 6469-2 [facility] 19:16:00 19:16:00 r ve Heart 396-49bd-9 l Care PA 34e-241b8b Haylee nn 0af6d6 2014-05-23 2014-05-23 Unknown nullFlavo Comprehensi efc1 6040-2 [facility] 19:16:00 19:16:00 r ve Heart 7y9-24gj-f l Care PA 555-339dac [facility] nn dcb7cb 2014-05-23 2014-05-23 Unknown nullFlavo Comprehensi 2431 7a0f-1 [facility] 19:16:00 19:16:00 r ve Heart 2m4-136n-i l Care PA 3a4-f4g6ru [facility] nn a1c67d 2014-05-23 2014-05-23 Unknown nullFlavo Comprehensi 69fc 8f62-8 [facility]oria 19:16:00 19:16:00 r ve Heart 764-45a8-9 l Care PA 76e-d819e2 [facility] nn 103e33 2014-05-23 2014-05-23 Unknown nullFlavo Comprehensi 6f04 275e-3 [facility] 19:16:00 19:16:00 r ve Heart 156-491d-9 l Care PA 82d-4b1d1e [facility] nn 08716p 2014-05-23 2014-05-23 Unknown nullFlavo Comprehensi a10c 0017-2 [facility] 19:16:00 19:16:00 r ve Heart a57-096p-0 l Care PA 978-2e87e6 [facility] nn 059331 6349-09-10 2014-05-23 Unknown nullFlavo Comprehensi 3bc9 4325-5 [facility] 19:16:00 19:16:00 r ve Heart 19a-4dd9-a l Care PA 1be-4163a6 [facility] nn 90df66 2014-05-23 2014-05-23 Unknown nullFlavo Comprehensi 73c1 eeaa-3 [facility] 19:16:00 19:16:00 r ve Heart ed9-45d6-b l Care PA 8fa-d59e4f [facility] nn aad25b 2014-05-23 2014-05-23 Unknown nullFlavo Comprehensi e9b0 f3a1-2 [facility] 19:16:00 19:16:00 r ve Heart e2x-4t82-c l Care PA j9q-4u4094 [facility] nn 47c2de 2014-05-23 2014-05-23 Unknown nullFlavo Comprehensi 7a31 3e34-e [facility] 19:16:00 19:16:00 r ve Heart 400-4932-8 l Care PA h13-3ay81o [facility]lee nn c8ac2b 2014-05-23 2014-05-23 Unknown nullFlavo Comprehensi dc18 0652-3 [facility] 19:16:00 19:16:00 r ve Heart de5-4854-8 l Care PA o09-azcz74 [facility] nn ec60ec 2014-05-23 2014-05-23 Unknown nullFlavo Comprehensi 9a16 e598-f [facility] 19:16:00 19:16:00 [facility] ve Heart s7o-791d-q l Care PA 4m2-76z90b [facility] nn a86cfa 2014-05-23 2014-05-23 Unknown nullFlavo Comprehensi e387 6469-2 [facility] 19:16:00 19:16:00 [facility] ve Heart 396-49bd-9 l Care PA 34e-241b8b [facility]lee nn 0af6d6 2014-05-23 2014-05-23 Unknown nullFlavo Comprehensi 0715 700a-e [facility] 19:16:00 19:16:00 [facility] ve Heart 595-4bf7-9 l Care PA dde-350e31 [facility]lee nn q5413q 2014-05-23 2014-05-23 Unknown nullFlavo Comprehensi efc1 6040-2 [facility] 19:16:00 19:16:00 r ve Heart 8i2-68th-y l Care PA 555-339dac [facility]lee nn dcb7cb 2014-05-23 2014-05-23 Unknown nullFlavo Comprehensi 8114 0fc0-2 [facility] 19:16:00 19:16:00 r ve Heart 9e2-87y0-4 l Care PA 967-001652 [facility]lee nn 4e3e19 2014-05-23 2014-05-23 Unknown nullFlavo Comprehensi 203e 6fa3-d [facility] 19:16:00 19:16:00 r ve Heart bdc-4bff-8 l Care PA 555-609409 [facility] nn 1d6c04 2014-05-23 2014-05-23 Unknown nullFlavo Comprehensi 3bc9 4325-5 [facility] 19:16:00 19:16:00 r ve Heart 19a-4dd9-a l Care PA 1be-4163a6 [facility] nn 90df66 2014-05-23 2014-05-23 Unknown nullFlavo Comprehensi 6f04 275e-3 [facility] 19:16:00 19:16:00 r ve Heart 156-491d-9 l Care PA 82d-4b1d1e Haylee nn 68968c 2014-05-23 2014-05-23 Unknown nullFlavo Comprehensi 2431 7a0f-1 [facility] 19:16:00 19:16:00 r ve Heart 7q1-426o-b l Care PA 3f5-u1o6br [facility] nn a1c67d 2014-05-23 2014-05-23 Unknown nullFlavo Comprehensi 69fc 8f62-8 [facility] 19:16:00 19:16:00 r ve Heart 764-45a8-9 l Care PA 76e-d819e2 [facility] nn 103e33 2014-05-23 2014-05-23 Unknown nullFlavo Comprehensi 2a8c d8c6-a [facility] 19:16:00 19:16:00 r ve Heart 6ba-4541-8 l Care PA 76a-2b87fc [facility]lee nn 2d4b9d 2014-05-23 2014-05-23 Unknown nullFlavo Comprehensi 73c1 eeaa-3 [facility] 19:16:00 19:16:00 r ve Heart ed9-45d6-b l Care PA 8fa-d59e4f [facility] nn aad25b 2014-05-23 2014-05-23 Unknown nullFlavo Comprehensi a10c 0017-2 [facility] 19:16:00 19:16:00 r ve Heart u37-480f-0 l Care PA 978-2e87e6 [facility] nn 513700 5421-09-10 2014-05-23 Unknown nullFlavo Comprehensi e9b0 f3a1-2 [facility] 19:16:00 19:16:00 r ve Heart j9k-4o22-g l Care PA d7k-5j5765 [facility] nn 47c2de 2014-05-23 2014-05-23 Unknown nullFlavo Comprehensi 7a31 3e34-e [facility] 19:16:00 19:16:00 r ve Heart 400-4932-8 l Care PA h28-2wy20c [facility] nn c8ac2b 2014-05-23 2014-05-23 Outpatient Comprehen Comprehensi 3 89479 [facility] 14:16:00 14:16:00 sive ve [facility] alWor ut Heart Care PA Care PA 2014-05-23 2014-05-23 Outpatient Comprehen Comprehensi 3 90163 [facility] 14:16[facility]00 [facility] 2014-05-17 2014-05-17 Unknown nullFlavo Comprehensi a5b0 f607-3 [facility] 21:48:00 21:48:00 r ve Heart 67b-46a1-b l Care PA 35e-2nl104 [facility] nn 55789d 2014-05-17 2014-05-17 Unknown nullFlavo Comprehensi 11d9 59a5-4 [facility] 21:48:00 21:48:00 r ve Heart o7g-42c1-2 l Care PA e56-d6g414 [facility] nn 0273ea 2014-05-17 2014-05-17 Unknown nullFlavo Comprehensi 2fef 663f-9 [facility] 21:48:00 21:48:00 r ve Heart 159-4851-b l Care PA q95-v89p74 [facility] nn 8o7295 2014-05-17 2014-05-17 Unknown nullFlavo Comprehensi 32c3 f66c-7 [facility] 21:48:00 21:48:00 r ve Heart 8s9-509p-5 l Care PA 7t0-h550l6 [facility] nn 618b5a 2014-05-17 2014-05-17 Unknown nullFlavo Comprehensi d21e b799-d [facility] 21:48:00 21:48:00 r ve Heart 02c-46f3-b l Care PA 175-36a0a2 [facility] nn 9ut499 2014-05-17 2014-05-17 Unknown nullFlavo Comprehensi 1406 3a4a-3 [facility] 21:48:00 21:48:00 r ve Heart 2fc-4b75-9 l Care PA 420-ddae8d [facility] nn 54d99f 2014-05-17 2014-05-17 Unknown nullFlavo Comprehensi 07b7 b3a0-6 [facility] 21:48:00 21:48:00 r ve Heart 248-4dae-9 l Care PA 0ae-1zt207 [facility] nn b14df5 2014-05-17 2014-05-17 Unknown nullFlavo Comprehensi a5b0 f607-3 [facility] 21:48:00 21:48:00 r ve Heart 67b-46a1-b l Care PA 35e-0xy438 [facility] nn 40640z 2014-05-17 2014-05-17 Unknown nullFlavo Comprehensi 11d9 59a5-4 [facility] 21:48:00 21:48:00 r ve Heart u0b-25m0-1 l Care PA y35-v5h586 [facility] nn 0273ea 2014-05-17 2014-05-17 Unknown nullFlavo Comprehensi 2fef 663f-9 [facility] 21:48:00 21:48:00 r ve Heart 159-4851-b l Care PA w97-c80a70 [facility] nn 9t6954 2014-05-17 2014-05-17 Unknown nullFlavo Comprehensi 32c3 f66c-7 [facility] 21:48:00 21:48:00 r ve Heart 2i4-172f-1 l Care PA 3n8-t578z6 [facility] nn 618b5a 2014-05-17 2014-05-17 Unknown nullFlavo Comprehensi d21e b799-d [facility] 21:48:00 21:48:00 r ve Heart 02c-46f3-b l Care PA 175-36a0a2 [facility] nn 2xg713 2014-05-17 2014-05-17 Unknown nullFlavo Comprehensi 1406 3a4a-3 [facility] 21:48:00 21:48:00 r ve Heart 2fc-4b75-9 l Care PA 420-ddae8d [facility] nn 54d99f 2014-05-17 2014-05-17 Unknown nullFlavo Comprehensi 07b7 b3a0-6 [facility] 21:48:00 21:48:00 r ve Heart 248-4dae-9 l Care PA 0ae-9uz394 [facility] nn b14df5 2014-05-17 2014-05-17 Unknown nullFlavo Comprehensi a5b0 f607-3 [facility] 21:48:00 21:48:00 r ve Heart 67b-46a1-b l Care PA 35e-2jv037 [facility] nn 59538u 2014-05-17 2014-05-17 Unknown nullFlavo Comprehensi d21e b799-d [facility] 21:48:00 21:48:00 r ve Heart 02c-46f3-b l Care PA 175-36a0a2 [facility] nn 5dd905 2014-05-17 2014-05-17 Unknown nullFlavo Comprehensi 1406 3a4a-3 [facility] 21:48:00 21:48:00 r ve Heart 2fc-4b75-9 l Care PA 420-ddae8d [facility] nn 54d99f 2014-05-17 2014-05-17 Unknown nullFlavo Comprehensi 07b7 b3a0-6 [facility] 21:48:00 21:48:00 r ve Heart 248-4dae-9 l Care PA 0ae-2hy919 [facility] nn b14df5 2014-05-17 2014-05-17 Unknown nullFlavo Comprehensi 2fef 663f-9 [facility] 21:48:00 21:48:00 r ve Heart 159-4851-b l Care PA h09-o07k69 [facility] nn 9e7386 2014-05-17 2014-05-17 Unknown nullFlavo Comprehensi 32c3 f66c-7 [facility] 21:48:00 21:48:00 r ve Heart 2m6-252n-3 l Care PA 1o3-l843v8 [facility] nn 618b5a 2014-05-17 2014-05-17 Unknown nullFlavo Comprehensi 11d9 59a5-4 [facility] 21:48:00 21:48:00 r ve Heart s8e-68t3-8 l Care PA p23-q5o408 [facility] nn 0273ea 2014-05-17 2014-05-17 Unknown nullFlavo Comprehensi 8181 ef5f-e [facility] 20:48:00 20:48:00 r ve Heart 1x1-8ivg-u l Care PA 304-481daa [facility] nn d110cb 2014-05-17 2014-05-17 Unknown nullFlavo Comprehensi 2c7c 6ec7-a [facility] 20:48:00 20:48:00 r ve Heart 305-4ab5-b l Care PA [id number]-[id number] [facility] nn [id number] 3490-09-04 2014-05-17 Unknown nullFlavo Comprehensi d377 bb7a-0 Memoria 20:48:00 20:48:00 r ve Heart 73e-495b-8 l Care PA [id number] [facility] nn [id number] 2199-09-04 2014-05-17 Unknown nullFlavo Comprehensi 2565 1d58-6 Memoria 20:48:00 20:48:00 r ve Heart 62f-4c35-a l Care PA 407-91e8db [facility] nn [id number] 2014-05-17 2014-05-17 Unknown nullFlavo Comprehensi cd46 c474-8 Memoria 20:48:00 20:48:00 r ve Heart 542-473d-b l Care PA [id number] [facility] nn [id number] 2014-05-17 2014-05-17 Unknown nullFlavo Comprehensi 99f9 2897-a Memoria 20:48:00 20:48:00 r ve Heart h8b-5716-7 l Care PA [id number] [facility] nn [id number] 2014-05-17 2014-05-17 Unknown nullFlavo Comprehensi 0345 b909-e Memoria 20:48:00 20:48:00 r ve Heart 235-4652-a l Care PA [id number] [facility] nn [id number] 2014-05-17 2014-05-17 Unknown nullFlavo Comprehensi dfac 501a-7 Memoria 20:48:00 20:48:00 r ve Heart 034-442a-b l Care PA [id number]-i0uf50 [facility] nn [id number] 2014-05-17 2014-05-17 Unknown nullFlavo Comprehensi 8253 e9d7-9 Memoria 20:48:00 20:48:00 r ve Heart 7t0-0e9y-1 l Care PA [id number] [facility] [id number] 2014-05-17 2014-05-17 Unknown nullFlavo Comprehensi 03c9 9e7d-6 Memoria 20:48:00 20:48:00 r ve Heart 5eb-4f1d-8 l Care PA [id number] [facility] nn [id number] 2014-05-17 2014-05-17 Unknown nullFlavo Comprehensi f7a0 bc45-f [facility]oria 20:48:00 20:48:00 r ve Heart 604-4e2c-8 l Care PA 221-532fdd [facility] nn 15ea4f 2014-05-17 2014-05-17 Unknown nullFlavo Comprehensi 72c3 9422-1 [facility]oria 20:48:00 20:48:00 r ve Heart bf2-4578-9 l Care PA 103-oc578u [facility] nn [id number] 2014-05-17 2014-05-17 Unknown nullFlavo Comprehensi d537 e4a0-5 [facility]oria 20:48:00 20:48:00 r ve Heart 102-481a-9 l Care PA [id number] [facility] nn [id number] 2014-05-17 2014-05-17 Unknown nullFlavo Comprehensi 93cf 1249-d Memoria 20:48:00 20:48:00 r ve Heart 123-49d7-8 l Care PA [id number]-8b47da [facility] nn 156693 2891-09-04 2014-05-17 Unknown nullFlavo Comprehensi 92ae 2d77-b [facility] 20:48:00 20:48:00 r ve Heart 9s1-78t6-9 l Care PA [id number]-j8mptm [facility] nn [id number] 2014-05-17 2014-05-17 Unknown nullFlavo Comprehensi ab58 0265-8 [facility]oria 20:48:00 20:48:00 r ve Heart acb-48a2-b l Care PA 20c-a7efca [facility] nn [id number] 2014-05-17 2014-05-17 Unknown nullFlavo Comprehensi 8181 ef5f-e [facility]oria 20:48:00 20:48:00 r ve Heart 7u3-4mww-c l Care PA 304-481daa [facility] nn [id number] 2014-05-17 2014-05-17 Unknown nullFlavo Comprehensi 2c7c 6ec7-a [facility]oria 20:48:00 20:48:00 r ve Heart 305-4ab5-b l Care PA 79d-994ff3 [facility] nn 000313 1052-09-04 2014-05-17 Unknown nullFlavo Comprehensi d377 bb7a-0 [facility]oria 20:48:00 20:48:00 r ve Heart 73e-495b-8 l Care PA [id number] [facility] nn [id number] 1307-09-04 2014-05-17 Unknown nullFlavo Comprehensi 2565 1d58-6 [facility] 20:48:00 20:48:00 r ve Heart 62f-4c35-a l Care PA 407-91e8db [facility] nn [id number] 2014-05-17 2014-05-17 Unknown nullFlavo Comprehensi cd46 c474-8 [facility]oria 20:48:00 20:48:00 r ve Heart 542-473d-b l Care PA [id number] [facility] nn [id number] 2014-05-17 2014-05-17 Unknown nullFlavo Comprehensi 99f9 2897-a [facility]oria 20:48:00 20:48:00 r ve Heart r9p-9210-1 l Care PA [id number] [facility] nn [id number] 2014-05-17 2014-05-17 Unknown nullFlavo Comprehensi 0345 b909-e [facility] 20:48:00 20:48:00 r ve Heart 235-4652-a l Care PA [id number] [facility] nn [id number] 2014-05-17 2014-05-17 Unknown nullFlavo Comprehensi dfac 501a-7 [facility] 20:48:00 20:48:00 r ve Heart 034-442a-b l Care PA [id number]-l0gy97 [facility] nn [id number] 2014-05-17 2014-05-17 Unknown nullFlavo Comprehensi 8253 e9d7-9 [facility]oria 20:48:00 20:48:00 r ve Heart 1b1-8h4t-1 l Care PA [id number] [facility] nn [id number] 2014-05-17 2014-05-17 Unknown nullFlavo Comprehensi 03c9 9e7d-6 [facility]oria 20:48:00 20:48:00 r ve Heart 5eb-4f1d-8 l Care PA [id number] [facility] nn [id number] 2014-05-17 2014-05-17 Unknown nullFlavo Comprehensi f7a0 bc45-f [facility] 20:48:00 20:48:00 r ve Heart 604-4e2c-8 l Care PA 221-532fdd [facility] nn 15ea4f 2014-05-17 2014-05-17 Unknown nullFlavo Comprehensi 72c3 9422-1 [facility]oria 20:48:00 20:48:00 r ve Heart bf2-4578-9 l Care PA 103-ov466q [facility] nn [id number] 2014-05-17 2014-05-17 Unknown nullFlavo Comprehensi d537 e4a0-5 [facility]oria 20:48:00 20:48:00 r ve Heart 102-481a-9 l Care PA [id number]-jme523 [facility] nn [id number] 2014-05-17 2014-05-17 Unknown nullFlavo Comprehensi 93cf 1249-d [facility]oria 20:48:00 20:48:00 r ve Heart 123-49d7-8 l Care PA 46b-8b47da [facility] nn [id number] 4366-09-04 2014-05-17 Unknown nullFlavo Comprehensi 92ae 2d77-b [facility] 20:48:00 20:48:00 r ve Heart 6n6-70k8-9 l Care PA i03-k4doqb [facility] nn [id number] 2014-05-17 2014-05-17 Unknown nullFlavo Comprehensi ab58 0265-8 [facility] 20:48:00 20:48:00 r ve Heart acb-48a2-b l Care PA 20c-a7efca [facility] nn aaa3db 2014-05-17 2014-05-17 Unknown nullFlavo Comprehensi 2c7c 6ec7-a [facility] 20:48:00 20:48:00 r ve Heart 305-4ab5-b l Care PA 79d-994ff3 [facility] nn [id number] 3615-09-04 2014-05-17 Unknown nullFlavo Comprehensi d377 bb7a-0 [facility] 20:48:00 20:48:00 r ve Heart 73e-495b-8 l Care PA 049-755e72 [facility] nn 342357 7533-09-04 2014-05-17 Unknown nullFlavo Comprehensi 0345 b909-e Memoria 20:48:00 20:48:00 r ve Heart 235-4652-a l Care PA 274-7l6643 [facility] nn 2go881 2014-05-17 2014-05-17 Unknown nullFlavo Comprehensi 2565 1d58-6 Memoria 20:48:00 20:48:00 r ve Heart 62f-4c35-a l Care PA 407-91e8db [facility] nn r90927 2014-05-17 2014-05-17 Unknown nullFlavo Comprehensi dfac 501a-7 Memoria 20:48:00 20:48:00 r ve Heart 034-442a-b l Care PA f79-k9nv21 [facility] nn 21047d 2014-05-17 2014-05-17 Unknown nullFlavo Comprehensi cd46 c474-8 Memoria 20:48:00 20:48:00 r ve Heart 542-473d-b l Care PA 4c3-3w6744 [facility] nn 38ca95 2014-05-17 2014-05-17 Unknown nullFlavo Comprehensi 8181 ef5f-e Memoria 20:48:00 20:48:00 r ve Heart 8n8-4nuo-z l Care PA 304-481daa [facility] nn d110cb 2014-05-17 2014-05-17 Unknown nullFlavo Comprehensi d537 e4a0-5 Memoria 20:48:00 20:48:00 r ve Heart 102-481a-9 l Care PA b4d-zfv820 [facility] nn g53808 2014-05-17 2014-05-17 Unknown nullFlavo Comprehensi f7a0 bc45-f Memoria 20:48:00 20:48:00 r ve Heart 604-4e2c-8 l Care PA 221-532fdd [facility] nn 15ea4f 2014-05-17 2014-05-17 Unknown nullFlavo Comprehensi 8253 e9d7-9 Memoria 20:48:00 20:48:00 r ve Heart 1s7-7r1e-0 l Care PA 0j4-1b835w [facility] nn 5e7d66 2014-05-17 2014-05-17 Unknown nullFlavo Comprehensi 03c9 9e7d-6 Memoria 20:48:00 20:48:00 r ve Heart 5eb-4f1d-8 l Care PA d06-3vsi74 [facility] nn 62u985 2014-05-17 2014-05-17 Unknown nullFlavo Comprehensi 99f9 2897-a Memoria 20:48:00 20:48:00 r ve Heart j3q-8699-7 l Care PA 950-8d1b21 [facility] nn 80904m 2014-05-17 2014-05-17 Unknown nullFlavo Comprehensi 93cf 1249-d Memoria 20:48:00 20:48:00 r ve Heart 123-49d7-8 l Care PA 46b-8b47da [facility] nn 749107 8438-09-04 2014-05-17 Unknown nullFlavo Comprehensi 72c3 9422-1 Memoria 20:48:00 20:48:00 r ve Heart bf2-4578-9 l Care PA 103-vt952v [facility] nn w7y260 2014-05-17 2014-05-17 Unknown nullFlavo Comprehensi 92ae 2d77-b Memoria 20:48:00 20:48:00 r ve Heart 6a0-28n6-9 l Care PA q33-j1qojn [facility] nn 41595l 2014-05-17 2014-05-17 Unknown nullFlavo Comprehensi ab58 0265-8 Memoria 20:48:00 20:48:00 r ve Heart acb-48a2-b l Care PA 20c-a7efca [facility] nn aaa3db 2014-05-17 2014-05-17 Outpatient Comprehen Comprehensi 3 83514 [facility]Clinic 15:48:00 15:48:00 sive ve Heart alWor ut Heart Care PA Care PA 2014-05-17 2014-05-17 Outpatient Comprehen Comprehensi 3 84752 eClinic 15:48:00 15:48:00 sive ve Heart alWor ut Heart Care PA Care PA 2014-05-08 2014-05-08 Unknown nullFlavo Comprehensi 4cf6 afd5-e Memoria 20:00:00 20:00:00 r ve Heart 3de-4b37-a l Care PA 2k7-38ra17 [facility] nn bcad81 2014-05-08 2014-05-08 Unknown nullFlavo Comprehensi a507 062e-8 Memoria 20:00:00 20:00:00 r ve Heart 333-475a-9 l Care PA 8l8-72hbv6 [facility] nn 1r6297 2014-05-08 2014-05-08 Unknown nullFlavo Comprehensi 673b 4764-c Memoria 20:00:00 20:00:00 r ve Heart m88-0c0e-3 l Care PA k75-di8bjv [facility] nn a010ae 2014-05-08 2014-05-08 Unknown nullFlavo Comprehensi 7a56 31c7-8 Memoria 20:00:00 20:00:00 r ve Heart 0k6-7r2b-7 l Care PA 646-60324p [facility] nn f55a91 2014-05-08 2014-05-08 Unknown nullFlavo Comprehensi acd7 b62a-7 Memoria 20:00:00 20:00:00 r ve Heart 45a-47bf-8 l Care PA 2z8-xzn705 [facility] nn 784356 2537-08-26 2014-05-08 Unknown nullFlavo Comprehensi e768 626d-c Memoria 20:00:00 20:00:00 r ve Heart 9i8-411k-x l Care PA 859-2d38be [facility] nn c3cda8 2014-05-08 2014-05-08 Unknown nullFlavo Comprehensi 2bb9 b2d4-0 Memoria 20:00:00 20:00:00 r ve Heart 891-49d6-9 l Care PA 6eb-ze964v [facility] nn 338773 1529-08-26 2014-05-08 Unknown nullFlavo Comprehensi 4cf6 afd5-e Memoria 20:00:00 20:00:00 r ve Heart 3de-4b37-a l Care PA 7l7-93iq40 [facility] nn bcad81 2014-05-08 2014-05-08 Unknown nullFlavo Comprehensi a507 062e-8 Memoria 20:00:00 20:00:00 r ve Heart 333-475a-9 l Care PA 0l3-86ira9 [facility] nn 2j8809 2014-05-08 2014-05-08 Unknown nullFlavo Comprehensi 673b 4764-c Memoria 20:00:00 20:00:00 r ve Heart h08-2y2g-4 l Care PA a17-ey0xve [facility] nn a010ae 2014-05-08 2014-05-08 Unknown nullFlavo Comprehensi 7a56 31c7-8 Memoria 20:00:00 20:00:00 r ve Heart 8o3-0k3w-0 l Care PA 646-30914p [facility] f55a91 2014-05-08 2014-05-08 Unknown nullFlavo Comprehensi acd7 b62a-7 Memoria 20:00:00 20:00:00 r ve Heart 45a-47bf-8 l Care PA 0y2-bky174 [facility] nn 869681 7229-08-26 2014-05-08 Unknown nullFlavo Comprehensi e768 626d-c Memoria 20:00:00 20:00:00 r ve Heart 5l1-696g-j l Care PA 859-2d38be [facility] nn c3cda8 2014-05-08 2014-05-08 Unknown nullFlavo Comprehensi 2bb9 b2d4-0 Memoria 20:00:00 20:00:00 r ve Heart 891-49d6-9 l Care PA 6eb-wk972d [facility] 673192 8321-08-26 2014-05-08 Unknown nullFlavo Comprehensi 4cf6 afd5-e Memoria 20:00:00 20:00:00 r ve Heart 3de-4b37-a l Care PA 8b6-12oh48 [facility] nn bcad81 2014-05-08 2014-05-08 Unknown nullFlavo Comprehensi acd7 b62a-7 Memoria 20:00:00 20:00:00 r ve Heart 45a-47bf-8 l Care PA 5q6-cmw014 [facility] 511004 2930-08-26 2014-05-08 Unknown nullFlavo Comprehensi e768 626d-c Memoria 20:00:00 20:00:00 r ve Heart 7b4-502t-v l Care PA 859-2d38be [facility] c3cda8 2014-05-08 2014-05-08 Unknown nullFlavo Comprehensi 2bb9 b2d4-0 Memoria 20:00:00 20:00:00 r ve Heart 891-49d6-9 l Care PA 6eb-ka300n [facility] nn 415163 6918-08-26 2014-05-08 Unknown nullFlavo Comprehensi 673b 4764-c Memoria 20:00:00 20:00:00 r ve Heart u59-0h5c-3 l Care PA f08-oq5tjg [facility] nn a010ae 2014-05-08 2014-05-08 Unknown nullFlavo Comprehensi 7a56 31c7-8 Memoria 20:00:00 20:00:00 r ve Heart 9f9-3b6a-1 l Care PA 646-87303l [facility] nn f55a91 2014-05-08 2014-05-08 Unknown nullFlavo Comprehensi a507 062e-8 Memoria 20:00:00 20:00:00 r ve Heart 333-475a-9 l Care PA 5r2-99wqu5 [facility] nn 0b6016 2014-05-08 2014-05-08 Unknown nullFlavo Comprehensi 1005 3944-0 Memoria 19:00:00 19:00:00 r ve Heart 352-4633-b l Care PA cc4-51cc3c [facility] nn 5adca2 2014-05-08 2014-05-08 Unknown nullFlavo Comprehensi 2d6f 8506-f Memoria 19:00:00 19:00:00 r ve Heart 2cb-4164-9 l Care PA k61-p59f58 [facility] nn 2d99c8 2014-05-08 2014-05-08 Unknown nullFlavo Comprehensi 96d9 fd1b-8 Memoria 19:00:00 19:00:00 r ve Heart 880-43cd-9 l Care PA 1u6-w5ia53 [facility] nn idl035 2014-05-08 2014-05-08 Unknown nullFlavo Comprehensi 1ef3 cc4c-0 Memoria 19:00:00 19:00:00 r ve Heart 65c-441c-a l Care PA 898-78ab07 [facility] nn 84d23e 2014-05-08 2014-05-08 Unknown nullFlavo Comprehensi fba2 79e8-8 Memoria 19:00:00 19:00:00 r ve Heart 880-4582-9 l Care PA 2fe-1og111 [facility] nn 92116g 2014-05-08 2014-05-08 Unknown nullFlavo Comprehensi 9f9c 82ba-1 Memoria 19:00:00 19:00:00 r ve Heart 58f-4c8e-a l Care PA 33d-3dt648 [facility] nn e80e16 2014-05-08 2014-05-08 Unknown nullFlavo Comprehensi 7f6b ba5e-1 Memoria 19:00:00 19:00:00 r ve Heart 38f-45d5-a l Care PA db7-5d7a56 [facility] nn 5380be 2014-05-08 2014-05-08 Unknown nullFlavo Comprehensi f24c ba57-6 Memoria 19:00:00 19:00:00 r ve Heart n0g-7r19-0 l Care PA v50-p49s35 [facility] nn i3a091 2014-05-08 2014-05-08 Unknown nullFlavo Comprehensi 7290 2838-0 Memoria 19:00:00 19:00:00 r ve Heart z3h-06a7-f l Care PA u3g-bkr5t4 [facility] nn 342953 6424-08-26 2014-05-08 Unknown nullFlavo Comprehensi 218b cd21-3 Memoria 19:00:00 19:00:00 r ve Heart eaa-4ebf-8 l Care PA 1e3-559z2m [facility] nn ddf18e 2014-05-08 2014-05-08 Unknown nullFlavo Comprehensi 1c6c 2baa-7 Memoria 19:00:00 19:00:00 r ve Heart 4af-45b7-b l Care PA 019-ud725t [facility] nn 28d12d 2014-05-08 2014-05-08 Unknown nullFlavo Comprehensi 0bf1 81c6-8 Memoria 19:00:00 19:00:00 r ve Heart 953-44a7-b l Care PA 8m8-h2l5u9 [facility] nn b98f8e 2014-05-08 2014-05-08 Unknown nullFlavo Comprehensi 2908 9dfd-1 Memoria 19:00:00 19:00:00 r ve Heart e09-4355-d l Care PA 366-6j1179 [facility] nn fn1622 2014-05-08 2014-05-08 Unknown nullFlavo Comprehensi fafb e4d1-3 Memoria 19:00:00 19:00:00 r ve Heart 04e-4d20-a l Care PA 5f3-b0569l [facility] nn 9dee1c 2014-05-08 2014-05-08 Unknown nullFlavo Comprehensi e6eb 948d-6 Memoria 19:00:00 19:00:00 r ve Heart 85a-41ff-9 l Care PA s69-rbzq98 [facility] nn 37799b 2014-05-08 2014-05-08 Unknown nullFlavo Comprehensi 0ff0 5db3-6 Memoria 19:00:00 19:00:00 r ve Heart 4j3-4424-c l Care PA l89-3320u5 [facility] nn 2t951o 2014-05-08 2014-05-08 Unknown nullFlavo Comprehensi 1005 3944-0 Memoria 19:00:00 19:00:00 r ve Heart 352-4633-b l Care PA cc4-51cc3c [facility] nn 5adca2 2014-05-08 2014-05-08 Unknown nullFlavo Comprehensi 2d6f 8506-f Memoria 19:00:00 19:00:00 r ve Heart 2cb-4164-9 l Care PA z23-s06j89 [facility] nn 2d99c8 2014-05-08 2014-05-08 Unknown nullFlavo Comprehensi 96d9 fd1b-8 Memoria 19:00:00 19:00:00 r ve Heart 880-43cd-9 l Care PA 9p0-t5vt71 [facility] nn ihu943 2014-05-08 2014-05-08 Unknown nullFlavo Comprehensi 1ef3 cc4c-0 Memoria 19:00:00 19:00:00 r ve Heart 65c-441c-a l Care PA 898-78ab07 [facility] nn 84d23e 2014-05-08 2014-05-08 Unknown nullFlavo Comprehensi fba2 79e8-8 Memoria 19:00:00 19:00:00 r ve Heart 880-4582-9 l Care PA 2fe-4hl770 [facility] nn 94502k 2014-05-08 2014-05-08 Unknown nullFlavo Comprehensi 9f9c 82ba-1 Memoria 19:00:00 19:00:00 r ve Heart 58f-4c8e-a l Care PA 33d-7qp310 [facility] nn e80e16 2014-05-08 2014-05-08 Unknown nullFlavo Comprehensi 7f6b ba5e-1 [facility]oria 19:00:00 19:00:00 r ve Heart 38f-45d5-a l Care PA db7-5d7a56 [facility] nn 5380be 2014-05-08 2014-05-08 Unknown nullFlavo Comprehensi f24c ba57-6 Memoria 19:00:00 19:00:00 r ve Heart o7z-1h71-2 l Care PA f38-s36r91 [facility] nn s2k642 2014-05-08 2014-05-08 Unknown nullFlavo Comprehensi 7290 2838-0 Memoria 19:00:00 19:00:00 r ve Heart k2h-69x9-g l Care PA z9q-aup3e9 [facility] nn 083570 9744-08-26 2014-05-08 Unknown nullFlavo Comprehensi 218b cd21-3 Memoria 19:00:00 19:00:00 r ve Heart eaa-4ebf-8 l Care PA 4n7-798o4q [facility] nn ddf18e 2014-05-08 2014-05-08 Unknown nullFlavo Comprehensi 1c6c 2baa-7 Memoria 19:00:00 19:00:00 r ve Heart 4af-45b7-b l Care PA 019-vc332v [facility] nn 28d12d 2014-05-08 2014-05-08 Unknown nullFlavo Comprehensi 0bf1 81c6-8 Memoria 19:00:00 19:00:00 r ve Heart 953-44a7-b l Care PA 0q2-k0z0o6 [facility] nn b98f8e 2014-05-08 2014-05-08 Unknown nullFlavo Comprehensi 2908 9dfd-1 Memoria 19:00:00 19:00:00 r ve Heart l04-8616-t l Care PA 366-1h5688 [facility] nn jw8878 2014-05-08 2014-05-08 Unknown nullFlavo Comprehensi fafb e4d1-3 Memoria 19:00:00 19:00:00 r ve Heart 04e-4d20-a l Care PA 2h1-o0958d [facility] nn 9dee1c 2014-05-08 2014-05-08 Unknown nullFlavo Comprehensi e6eb 948d-6 Memoria 19:00:00 19:00:00 r ve Heart 85a-41ff-9 l Care PA i83-huvd75 [facility] nn 62969e 2014-05-08 2014-05-08 Unknown nullFlavo Comprehensi 0ff0 5db3-6 Memoria 19:00:00 19:00:00 r ve Heart 4y1-3592-s l Care PA i22-6185z8 [facility] nn 8h237r 2014-05-08 2014-05-08 Unknown nullFlavo Comprehensi 2d6f 8506-f Memoria 19:00:00 19:00:00 r ve Heart 2cb-4164-9 l Care PA q86-b37u08 [facility] nn 2d99c8 2014-05-08 2014-05-08 Unknown nullFlavo Comprehensi 96d9 fd1b-8 Memoria 19:00:00 19:00:00 r ve Heart 880-43cd-9 l Care PA 8z4-n3vh28 [facility] nn yny721 2014-05-08 2014-05-08 Unknown nullFlavo Comprehensi 7f6b ba5e-1 Memoria 19:00:00 19:00:00 r ve Heart 38f-45d5-a l Care PA db7-5d7a56 [facility] nn 5380be 2014-05-08 2014-05-08 Unknown nullFlavo Comprehensi 1ef3 cc4c-0 Memoria 19:00:00 19:00:00 r ve Heart 65c-441c-a l Care PA 898-78ab07 [facility] nn 84d23e 2014-05-08 2014-05-08 Unknown nullFlavo Comprehensi f24c ba57-6 Memoria 19:00:00 19:00:00 r ve Heart o9s-8e44-1 l Care PA w63-y70s53 [facility] nn h5y776 2014-05-08 2014-05-08 Unknown nullFlavo Comprehensi fba2 79e8-8 Memoria 19:00:00 19:00:00 r ve Heart 880-4582-9 l Care PA 2fe-9yz310 [facility] nn 60423b 2014-05-08 2014-05-08 Unknown nullFlavo Comprehensi 1005 3944-0 Memoria 19:00:00 19:00:00 r ve Heart 352-4633-b l Care PA cc4-51cc3c [facility] nn 5adca2 2014-05-08 2014-05-08 Unknown nullFlavo Comprehensi 2908 9dfd-1 Memoria 19:00:00 19:00:00 r ve Heart a73-3989-q l Care PA 366-2t5987 [facility] nn fo8170 2014-05-08 2014-05-08 Unknown nullFlavo Comprehensi 1c6c 2baa-7 Memoria 19:00:00 19:00:00 r ve Heart 4af-45b7-b l Care PA 019-mq182i [facility] nn 28d12d 2014-05-08 2014-05-08 Unknown nullFlavo Comprehensi 7290 2838-0 Memoria 19:00:00 19:00:00 r ve Heart d1y-00t9-q l Care PA h4z-gcb1t4 [facility] nn 315213 1545-08-26 2014-05-08 Unknown nullFlavo Comprehensi 218b cd21-3 Memoria 19:00:00 19:00:00 r ve Heart eaa-4ebf-8 l Care PA 1u5-056p6u [facility] nn ddf18e 2014-05-08 2014-05-08 Unknown nullFlavo Comprehensi 9f9c 82ba-1 [facility]oria 19:00:00 19:00:00 r ve Heart 58f-4c8e-a l Care PA 33d-2zi656 [facility] nn e80e16 2014-05-08 2014-05-08 Unknown nullFlavo Comprehensi fafb e4d1-3 Memoria 19:00:00 19:00:00 r ve Heart 04e-4d20-a l Care PA 9q5-g4904t [facility] nn 9dee1c 2014-05-08 2014-05-08 Unknown nullFlavo Comprehensi 0bf1 81c6-8 Memoria 19:00:00 19:00:00 r ve Heart 953-44a7-b l Care PA 4l9-t8z1q0 [facility] nn b98f8e 2014-05-08 2014-05-08 Unknown nullFlavo Comprehensi e6eb 948d-6 Memoria 19:00:00 19:00:00 r ve Heart 85a-41ff-9 l Care PA e31-ojjm44 [facility] nn 55294q 2014-05-08 2014-05-08 Unknown nullFlavo Comprehensi 0ff0 5db3-6 [facility]oria 19:00:00 19:00:00 r ve Heart 8u9-3084-h l Care PA f57-6558a7 [facility] nn 6z265b 2014-05-08 2014-05-08 Outpatient Comprehen Comprehensi 2 44204 [facility]Clinic 14:00:00 14:00:00 sive ve Heart alWor ut Heart Care PA Care PA 2014-05-08 2014-05-08 Outpatient Comprehen Comprehensi 2 68190 eClinic 14:00:00 14:00:00 sive ve Heart alWor ut Heart Care PA Care PA 2014-01-08 2014-01-08 Unknown nullFlavo Comprehensi 8b2a 47e6-9 Memoria 22:00:00 22:00:00 r ve Heart 3ac-4f19-b l Care PA 96a-65b36c [facility] nn 1dfe35 2014-01-08 2014-01-08 Unknown nullFlavo Comprehensi 387d 76d8-2 [facility] 22:00:00 22:00:00 r ve Heart cba-4bdd-a l Care PA 840-af7f87 [facility] nn 51c653 2014-01-08 2014-01-08 Unknown nullFlavo Comprehensi e59c ee45-a [facility] 22:00:00 22:00:00 r ve Heart 7i1-96w3-v l Care PA 96d-ee29a7 [facility] nn 15fda4 2014-01-08 2014-01-08 Unknown nullFlavo Comprehensi 5696 5171-9 Memoria 22:00:00 22:00:00 r ve Heart 9h4-30e1-9 l Care PA 948-9b5876 [facility] nn 724a28 2014-01-08 2014-01-08 Unknown nullFlavo Comprehensi 84d7 7d55-4 Memoria 22:00:00 22:00:00 r ve Heart x6d-10oe-6 l Care PA bd8-9ddf01 [facility] nn aa6d61 2014-01-08 2014-01-08 Unknown nullFlavo Comprehensi f5d1 d7fa-2 [facility]oria 22:00:00 22:00:00 r ve Heart 6y2-47f0-0 l Care PA 3g5-o86rw9 [facility] nn 101f9b 2014-01-08 2014-01-08 Unknown nullFlavo Comprehensi bce2 2080-2 Memoria 22:00:00 22:00:00 r ve Heart 870-4b94-8 l Care PA m91-ia33vc [facility] nn 25j757 2014-01-08 2014-01-08 Unknown nullFlavo Comprehensi 8b2a 47e6-9 Memoria 22:00:00 22:00:00 r ve Heart 3ac-4f19-b l Care PA 96a-65b36c [facility] nn 1dfe35 2014-01-08 2014-01-08 Unknown nullFlavo Comprehensi 387d 76d8-2 Memoria 22:00:00 22:00:00 r ve Heart cba-4bdd-a l Care PA 840-af7f87 [facility] nn 83j615 2014-01-08 2014-01-08 Unknown nullFlavo Comprehensi e59c ee45-a [facility]oria 22:00:00 22:00:00 r ve Heart 3v7-45v4-u l Care PA 96d-ee29a7 [facility] nn 15fda4 2014-01-08 2014-01-08 Unknown nullFlavo Comprehensi 5696 5171-9 Memoria 22:00:00 22:00:00 r ve Heart 4t4-60p0-6 l Care PA 948-0s6999 [facility] nn 724a28 2014-01-08 2014-01-08 Unknown nullFlavo Comprehensi 84d7 7d55-4 Memoria 22:00:00 22:00:00 r ve Heart i9p-62gc-8 l Care PA bd8-9ddf01 [facility] nn aa6d61 2014-01-08 2014-01-08 Unknown nullFlavo Comprehensi f5d1 d7fa-2 [facility]oria 22:00:00 22:00:00 r ve Heart 6g1-24e1-0 l Care PA 9e3-s65rp9 [facility] nn 101f9b 2014-01-08 2014-01-08 Unknown nullFlavo Comprehensi bce2 2079-2 Memoria 22:00:00 22:00:00 r ve Heart 870-4b94-8 l Care PA k15-oi73dh [facility] nn 73h739 2014-01-08 2014-01-08 Unknown nullFlavo Comprehensi 8b2a 47e6-9 Memoria 22:00:00 22:00:00 r ve Heart 3ac-4f19-b l Care PA 96a-65b36c [facility] nn 1dfe35 2014-01-08 2014-01-08 Unknown nullFlavo Comprehensi 84d7 7d55-4 [facility] 22:00:00 22:00:00 r ve Heart v2e-24jf-5 l Care PA bd8-9ddf01 [facility] nn aa6d61 2014-01-08 2014-01-08 Unknown nullFlavo Comprehensi f5d1 d7fa-2 Memoria 22:00:00 22:00:00 r ve Heart 2n0-76j0-5 l Care PA 3z4-i68tg5 [facility] nn 101f9b 2014-01-08 2014-01-08 Unknown nullFlavo Comprehensi bce2 0-2 [facility] 22:00:00 22:00:00 r ve Heart 870-4b94-8 l Care PA j31-gz53in [facility] nn 08q167 2014-01-08 2014-01-08 Unknown nullFlavo Comprehensi e59c ee45-a [facility]oria 22:00:00 22:00:00 r ve Heart 6a1-37a9-i l Care PA 96d-ee29a7 [facility] nn 15fda4 2014-01-08 2014-01-08 Unknown nullFlavo Comprehensi 5696 5171-9 Memoria 22:00:00 22:00:00 r ve Heart 4f8-72f8-6 l Care PA 948-3f1484 [facility] nn 724a28 2014-01-08 2014-01-08 Unknown nullFlavo Comprehensi 387d 76d8-2 Mem[facility] 22:00:00 22:00:00 r ve Heart cba-4bdd-a l Care PA 840-af7f87 [facility] nn 52u161 2014-01-08 2014-01-08 Unknown nullFlavo Comprehensi 2c42 420a-6 [facility] 21:00:00 21:00:00 r ve Heart 052-44f0-a l Care PA 2k1-4hd46l [facility] nn 2ca0cc 2014-01-08 2014-01-08 Unknown nullFlavo Comprehensi 0613 43a5-6 Memoria 21:00:00 21:00:00 r ve Heart 5j7-468w-0 l Care PA ec0-4d9a67 [facility] nn h2587k 2014-01-08 2014-01-08 Unknown nullFlavo Comprehensi 93f9 86ae-c [facility] 21:00:00 21:00:00 r ve Heart 112-4ad7-9 l Care PA t00-z5y066 [facility] nn 215aba 2014-01-08 2014-01-08 Unknown nullFlavo Comprehensi 4850 a812-9 Memoria 21:00:00 21:00:00 r ve Heart 58e-4039-8 l Care PA 7c5-n7616q [facility] nn fdba48 2014-01-08 2014-01-08 Unknown nullFlavo Comprehensi 2b4c aac8-a [facility] 21:00:00 21:00:00 r ve Heart l0g-1557-9 l Care PA 824-1c42c7 [facility] nn e7ba6b 2014-01-08 2014-01-08 Unknown nullFlavo Comprehensi abfb f2e1-7 Memoria 21:00:00 21:00:00 r ve Heart 8fe-4434-b l Care PA y7j-4s24xl [facility] nn q1a386 2014-01-08 2014-01-08 Unknown nullFlavo Comprehensi 1d32 a52f-4 Memoria 21:00:00 21:00:00 r ve Heart 1u5-9m74-x l Care PA fb3-00t126 [facility] nn 551b7e 2014-01-08 2014-01-08 Unknown nullFlavo Comprehensi 4fae 1b1d-8 Memoria 21:00:00 21:00:00 r ve Heart 0ac-425f-a l Care PA eed-4c4fdb [facility] nn 375a2b 2014-01-08 2014-01-08 Unknown nullFlavo Comprehensi bb21 389d-f Mem[facility] 21:00:00 21:00:00 r ve Heart v52-353e-u l Care PA 747-a1c8a1 [facility] nn ff94b0 2014-01-08 2014-01-08 Unknown nullFlavo Comprehensi b64e 7e3f-e Memoria 21:00:00 21:00:00 r ve Heart a75-61s9-l l Care PA 2f8-8r7lo1 [facility] nn qt5430 2014-01-08 2014-01-08 Unknown nullFlavo Comprehensi 7454 349f-d [facility] 21:00:00 21:00:00 r ve Heart 074-45d0-9 l Care PA 42a-ff7e18 [facility] nn 73fcfb 2014-01-08 2014-01-08 Unknown nullFlavo Comprehensi 77e6 c2f5-3 Memoria 21:00:00 21:00:00 r ve Heart 59c-4ec7-a l Care PA 8l7-6x6a16 [facility] nn 638fba 2014-01-08 2014-01-08 Unknown nullFlavo Comprehensi 195d fbbd-5 [facility] 21:00:00 21:00:00 r ve Heart 03a-4c96-8 l Care PA 781-d6bdd2 [facility] nn 9a3d1f 2014-01-08 2014-01-08 Unknown nullFlavo Comprehensi e64d 7245-1 [facility] 21:00:00 21:00:00 r ve Heart 621-415b-b l Care PA 0v3-44a5d4 [facility] nn 698373 6980-04-28 2014-01-08 Unknown nullFlavo Comprehensi 9b32 0cef-5 [facility]oria 21:00:00 21:00:00 r ve Heart 1w7-0a44-8 l Care PA 89f-e89cb3 [facility] nn [id number] 8346-04-28 2014-01-08 Unknown nullFlavo Comprehensi 0c8e f5cf-3 [facility] 21:00:00 21:00:00 r ve Heart 8n9-0113-3 l Care PA [id number] [facility] nn 58867g 2014-01-08 2014-01-08 Unknown nullFlavo Comprehensi bbd0 1502-6 [facility] 21:00:00 21:00:00 r ve Heart 99e-4605-9 l Care PA yaneth-6f7e61 [facility] nn 3a02f4 2014-01-08 2014-01-08 Unknown nullFlavo Comprehensi 2c42 420a-6 [facility] 21:00:00 21:00:00 r ve Heart 052-44f0-a l Care PA 9f3-8dy60p [facility] nn 2ca0cc 2014-01-08 2014-01-08 Unknown nullFlavo Comprehensi 0613 43a5-6 [facility] 21:00:00 21:00:00 r ve Heart 0m2-691b-2 l Care PA ec0-4d9a67 [facility] nn x9774t 2014-01-08 2014-01-08 Unknown nullFlavo Comprehensi 93f9 86ae-c [facility] 21:00:00 21:00:00 r ve Heart 112-4ad7-9 l Care PA d79-h4k730 [facility] nn 215aba 2014-01-08 2014-01-08 Unknown nullFlavo Comprehensi 4850 a812-9 [facility] 21:00:00 21:00:00 r ve Heart 58e-4039-8 l Care PA [id number]-j7461y [facility] nn fdba48 2014-01-08 2014-01-08 Unknown nullFlavo Comprehensi 2b4c aac8-a [facility] 21:00:00 21:00:00 r ve Heart k6m-2659-8 l Care PA 824-1c42c7 [facility] nn e7ba6b 2014-01-08 2014-01-08 Unknown nullFlavo Comprehensi abfb f2e1-7 [facility] 21:00:00 21:00:00 r ve Heart 8fe-4434-b l Care PA x6l-7q10xq [facility] nn l7g188 2014-01-08 2014-01-08 Unknown nullFlavo Comprehensi 1d32 a52f-4 [facility] 21:00:00 21:00:00 r ve Heart 8p5-0u66-l l Care PA fb3-06c150 [facility] nn 551b7e 2014-01-08 2014-01-08 Unknown nullFlavo Comprehensi 4fae 1b1d-8 [facility] 21:00:00 21:00:00 r ve Heart 0ac-425f-a l Care PA eed-4c4fdb [facility] nn 375a2b 2014-01-08 2014-01-08 Unknown nullFlavo Comprehensi bb21 389d-f [facility] 21:00:00 21:00:00 r ve Heart i67-632e-m l Care PA 747-a1c8a1 [facility] nn ff94b0 2014-01-08 2014-01-08 Unknown nullFlavo Comprehensi b64e 7e3f-e [facility] 21:00:00 21:00:00 r ve Heart h79-63j7-s l Care PA 4r6-1y2ay1 [facility] nn mm0297 2014-01-08 2014-01-08 Unknown nullFlavo Comprehensi 7454 349f-d [facility] 21:00:00 21:00:00 r ve Heart 074-45d0-9 l Care PA 42a-ff7e18 [facility] nn 73fcfb 2014-01-08 2014-01-08 Unknown nullFlavo Comprehensi 77e6 c2f5-3 [facility] 21:00:00 21:00:00 r ve Heart 59c-4ec7-a l Care PA 5e6-9g0i61 [facility] nn 638fba 2014-01-08 2014-01-08 Unknown nullFlavo Comprehensi 195d fbbd-5 [facility] 21:00:00 21:00:00 r ve Heart 03a-4c96-8 l Care PA 781-d6bdd2 [facility] nn 9a3d1f 2014-01-08 2014-01-08 Unknown nullFlavo Comprehensi e64d 7245-1 [facility] 21:00:00 21:00:00 r ve Heart 621-415b-b l Care PA 4o1-83e0y0 [facility] nn [id number] 8938-04-28 2014-01-08 Unknown nullFlavo Comprehensi 9b32 0cef-5 [facility] 21:00:00 21:00:00 r ve Heart 2a8-3z18-5 l Care PA 89f-e89cb3 [facility] nn 361959 5754-04-28 2014-01-08 Unknown nullFlavo Comprehensi 0c8e f5cf-3 [facility] 21:00:00 21:00:00 r ve Heart 3j7-8883-0 l Care PA n03-67hn13 [facility] nn 22718d 2014-01-08 2014-01-08 Unknown nullFlavo Comprehensi bbd0 1502-6 [facility] 21:00:00 21:00:00 r ve Heart 99e-4605-9 l Care PA yaneth-6f7e61 [facility] nn 3a02f4 2014-01-08 2014-01-08 Unknown nullFlavo Comprehensi 93f9 86ae-c [facility] 21:00:00 21:00:00 r ve Heart 112-4ad7-9 l Care PA i35-h1c399 [facility] nn 215aba 2014-01-08 2014-01-08 Unknown nullFlavo Comprehensi 4850 a812-9 [facility] 21:00:00 21:00:00 r ve Heart 58e-4039-8 l Care PA 9n2-j8448s [facility] nn fdba48 2014-01-08 2014-01-08 Unknown nullFlavo Comprehensi 0613 43a5-6 [facility] 21:00:00 21:00:00 r ve Heart 9n0-404w-0 l Care PA ec0-4d9a67 [facility] nn t6793r 2014-01-08 2014-01-08 Unknown nullFlavo Comprehensi 4fae 1b1d-8 [facility] 21:00:00 21:00:00 r ve Heart 0ac-425f-a l Care PA eed-4c4fdb [facility] nn 375a2b 2014-01-08 2014-01-08 Unknown nullFlavo Comprehensi 2b4c aac8-a [facility] 21:00:00 21:00:00 r ve Heart t0t-1451-9 l Care PA 824-1c42c7 [facility] nn e7ba6b 2014-01-08 2014-01-08 Unknown nullFlavo Comprehensi bb21 389d-f [facility] 21:00:00 21:00:00 r ve Heart q05-693f-a l Care PA 747-a1c8a1 [facility] nn ff94b0 2014-01-08 2014-01-08 Unknown nullFlavo Comprehensi abfb f2e1-7 [facility] 21:00:00 21:00:00 r ve Heart 8fe-4434-b l Care PA g3t-3g25sb [facility] nn [id number] 2014-01-08 2014-01-08 Unknown nullFlavo Comprehensi 2c42 420a-6 [facility] 21:00:00 21:00:00 r ve Heart 052-44f0-a l Care PA 0n3-2xg90n [facility] nn 2ca0cc 2014-01-08 2014-01-08 Unknown nullFlavo Comprehensi e64d 7245-1 [facility] 21:00:00 21:00:00 r ve Heart 621-415b-b l Care PA 4j4-89w4g4 [facility] [facility] [id number] 6811-04-28 2014-01-08 Unknown nullFlavo Comprehensi 77e6 c2f5-3 [facility] 21:00:00 21:00:00 r ve Heart 59c-4ec7-a l Care PA 5a3-3d7n16 [facility] nn 638fba 2014-01-08 2014-01-08 Unknown nullFlavo Comprehensi b64e 7e3f-e [facility] 21:00:00 21:00:00 r ve Heart k39-04k1-f l Care PA 6z3-2j2os8 [facility] nn cw0693 2014-01-08 2014-01-08 Unknown nullFlavo Comprehensi 7454 349f-d [facility] 21:00:00 21:00:00 r ve Heart 074-45d0-9 l Care PA 42a-ff7e18 [facility] nn 73fcfb 2014-01-08 2014-01-08 Unknown nullFlavo Comprehensi 1d32 a52f-4 [facility] 21:00:00 21:00:00 r ve Heart 4u3-5f50-q l Care PA fb3-73w528 [facility] nn 551b7e 2014-01-08 2014-01-08 Unknown nullFlavo Comprehensi 9b32 0cef-5 [facility] 21:00:00 21:00:00 r ve Heart 6b0-8l53-7 l Care PA 89f-e89cb3 [facility] nn 253591 2201-04-28 2014-01-08 Unknown nullFlavo Comprehensi 195d fbbd-5 [facility] 21:00:00 21:00:00 r ve Heart 03a-4c96-8 l Care PA 781-d6bdd2 [facility] nn 9a3d1f 2014-01-08 2014-01-08 Unknown nullFlavo Comprehensi 0c8e f5cf-3 [facility] 21:00:00 21:00:00 r ve Heart 2x6-9892-6 l Care PA b39-24eh91 [facility] nn 90108s 2014-01-08 2014-01-08 Unknown nullFlavo Comprehensi bbd0 1502-6 [facility] 21:00:00 21:00:00 r ve Heart 99e-4605-9 l Care PA yaneth-6f7e61 [facility] nn 3a02f4 2014-01-08 2014-01-08 Outpatient Comprehen Comprehensi 2 74749 [facility] 16:00:00 16:00:00 sive ve Heart alWor ut Heart Care PA Care PA 2014-01-08 2014-01-08 Outpatient Comprehen Comprehensi 2 19751 [facility] 16:00:00 16:00:00 [facility] alWor ut Heart Care PA Care PA 2013-12-06 2013-12-06 Unknown nullFlavo Comprehensi 7af8 d5e1-6 [facility] 21:00:00 21:00:00 r ve Heart 3bc-486d-9 l Care PA 715-417238 [facility] nn 054687 2777-03-26 2013-12-06 Unknown nullFlavo Comprehensi 2ed8 30ee-f [facility] 21:00:00 21:00:00 r ve Heart u4x-6219-k l Care PA 46d-deb23c [facility] nn 818fe4 2013-12-06 2013-12-06 Unknown nullFlavo Comprehensi 136b 2818-9 [facility] 21:00:00 21:00:00 r ve Heart 3k3-4f64-b l Care PA 29f-cd7bae [facility] nn y1i127 2013-12-06 2013-12-06 Unknown nullFlavo Comprehensi d160 61a0-b [facility] 21:00:00 21:00:00 r ve Heart 54a-4b05-9 l Care PA 385-yb912s [facility] nn 3e75fa 2013-12-06 2013-12-06 Unknown nullFlavo Comprehensi af3b 7f7a-8 [facility] 21:00:00 21:00:00 r ve Heart 6bb-4d8e-8 l Care PA 619-a12f32 [facility] nn hs508f 2013-12-06 2013-12-06 Unknown nullFlavo Comprehensi 4ce4 0f6b-f [facility] 21:00:00 21:00:00 r ve Heart b4w-1o38-t l Care PA 29f-d8ed1f [facility] nn 953276 7396-03-26 2013-12-06 Unknown nullFlavo Comprehensi 3c5b f55a-0 [facility] 21:00:00 21:00:00 r ve Heart i61-09df-5 l Care PA 16d-02x487 [facility] nn 7a3f45 2013-12-06 2013-12-06 Unknown nullFlavo Comprehensi 7af8 d5e1-6 [facility] 21:00:00 21:00:00 r ve Heart 3bc-486d-9 l Care PA 715-510126 [facility] nn 189397 6054-03-26 2013-12-06 Unknown nullFlavo Comprehensi 2ed8 30ee-f [facility] 21:00:00 21:00:00 r ve Heart x8o-4538-r l Care PA 46d-deb23c [facility] nn 818fe4 2013-12-06 2013-12-06 Unknown nullFlavo Comprehensi 136b 2818-9 [facility] 21:00:00 21:00:00 r ve Heart 1y9-8q45-s l Care PA 29f-cd7bae [facility] nn r5v540 2013-12-06 2013-12-06 Unknown nullFlavo Comprehensi d160 61a0-b [facility] 21:00:00 21:00:00 r ve Heart 54a-4b05-9 l Care PA 385-rv704r [facility] nn 3e75fa 2013-12-06 2013-12-06 Unknown nullFlavo Comprehensi af3b 7f7a-8 [facility] 21:00:00 21:00:00 r ve Heart 6bb-4d8e-8 l Care PA 619-a12f32 [facility] nn hu761a 2013-12-06 2013-12-06 Unknown nullFlavo Comprehensi 4ce4 0f6b-f [facility] 21:00:00 21:00:00 r ve Heart r6t-4t85-f l Care PA 29f-d8ed1f [facility] nn 318085 4230-03-26 2013-12-06 Unknown nullFlavo Comprehensi 3c5b f55a-0 [facility] 21:00:00 21:00:00 r ve Heart a87-63bq-3 l Care PA 16d-55g041 [facility] nn 7a3f45 2013-12-06 2013-12-06 Unknown nullFlavo Comprehensi 7af8 d5e1-6 [facility] 21:00:00 21:00:00 r ve Heart 3bc-486d-9 l Care PA 715-912826 [facility] nn 557717 6751-03-26 2013-12-06 Unknown nullFlavo Comprehensi af3b 7f7a-8 [facility] 21:00:00 21:00:00 r ve Heart 6bb-4d8e-8 l Care PA 619-a12f32 [facility] nn nu406u 2013-12-06 2013-12-06 Unknown nullFlavo Comprehensi 4ce4 0f6b-f [facility] 21:00:00 21:00:00 r ve Heart y4u-1h33-p l Care PA 29f-d8ed1f [facility] nn 794529 2765-03-26 2013-12-06 Unknown nullFlavo Comprehensi 3c5b f55a-0 [facility] 21:00:00 21:00:00 r ve Heart q81-63yf-8 l Care PA 16d-79d940 [facility] nn 7a3f45 2013-12-06 2013-12-06 Unknown nullFlavo Comprehensi 136b 2818-9 [facility] 21:00:00 21:00:00 r ve Heart 1p4-4z78-y l Care PA 29f-cd7bae [facility] nn d5j286 2013-12-06 2013-12-06 Unknown nullFlavo Comprehensi d160 61a0-b [facility] 21:00:00 21:00:00 r ve Heart 54a-4b05-9 l Care PA 385-rs264a [facility] nn 3e75fa 2013-12-06 2013-12-06 Unknown nullFlavo Comprehensi 2ed8 30ee-f [facility] 21:00:00 21:00:00 r ve Heart l7i-5781-a l Care PA 46d-deb23c [facility] nn 818fe4 2013-12-06 2013-12-06 Unknown nullFlavo Comprehensi ec38 3577-f [facility] 20:00:00 20:00:00 r ve Heart 1k7-38w5-6 l Care PA g31-096920 [facility] nn ecf53a 2013-12-06 2013-12-06 Unknown nullFlavo Comprehensi f0cb dbb7-e [facility] 20:00:00 20:00:00 r ve Heart ebb-42f2-8 l Care PA j6t-xctry3 [facility] nn 7c80f4 2013-12-06 2013-12-06 Unknown nullFlavo Comprehensi c12e c8e3-5 [facility] 20:00:00 20:00:00 r ve Heart 7ad-4721-b l Care PA 682-0c1ef1 [facility] nn a0dd49 2013-12-06 2013-12-06 Unknown nullFlavo Comprehensi 22ce 10ef-4 [facility] 20:00:00 20:00:00 r ve Heart l2u-64g5-w l Care PA q7j-9nu51j [facility] nn 830ecc 2013-12-06 2013-12-06 Unknown nullFlavo Comprehensi 2223 52b6-b [facility] 20:00:00 20:00:00 r ve Heart w89-9d41-f l Care PA f76-8e09zc [facility] nn bg3393 2013-12-06 2013-12-06 Unknown nullFlavo Comprehensi 71ac b782-3 [facility] 20:00:00 20:00:00 r ve Heart fe3-4d33-8 l Care PA 578-z5823f [facility] nn 292876 6738-03-26 2013-12-06 Unknown nullFlavo Comprehensi 26db d8d3-2 [facility] 20:00:00 20:00:00 r ve Heart bce-40e8-b l Care PA 336-k5b099 [facility] nn 15e45d 2013-12-06 2013-12-06 Unknown nullFlavo Comprehensi 4525 51e0-a [facility] 20:00:00 20:00:00 r ve Heart j1r-9940-a l Care PA ed2-9u787c [facility] nn bdc22e 2013-12-06 2013-12-06 Unknown nullFlavo Comprehensi 3adb 7634-5 [facility] 20:00:00 20:00:00 r ve Heart bf8-49f6-8 l Care PA 10c-l0v536 [facility] nn dk277m 2013-12-06 2013-12-06 Unknown nullFlavo Comprehensi 2234 d46c-3 [facility] 20:00:00 20:00:00 r ve Heart ef7-4ea6-8 l Care PA f0b-16n6e0 [facility] nn f7da09 2013-12-06 2013-12-06 Unknown nullFlavo Comprehensi 1148 1864-4 [facility] 20:00:00 20:00:00 r ve Heart 6cf-494e-9 l Care PA 079-55c2a4 [facility] nn 55447n 2013-12-06 2013-12-06 Unknown nullFlavo Comprehensi 466c bb83-1 [facility] 20:00:00 20:00:00 r ve Heart 7fe-4180-9 l Care PA z09-g895zz [facility] nn beced9 2013-12-06 2013-12-06 Unknown nullFlavo Comprehensi c12e c8e3-5 [facility] 20:00:00 20:00:00 r ve Heart 7ad-4721-b l Care PA 682-0c1ef1 [facility] nn a0dd49 2013-12-06 2013-12-06 Unknown nullFlavo Comprehensi 5263 1297-b [facility] 20:00:00 20:00:00 r ve Heart x54-9dn4-o l Care PA 37e-6ebbd3 [facility] nn 3v3427 2013-12-06 2013-12-06 Unknown nullFlavo Comprehensi cda5 99f0-9 [facility] 20:00:00 20:00:00 r ve Heart 50c-48b1-8 l Care PA r96-377111 [facility] nn 0d6ce8 2013-12-06 2013-12-06 Unknown nullFlavo Comprehensi 48ba ac32-3 [facility] 20:00:00 20:00:00 r ve Heart c83-6164-8 l Care PA 7q6-46hg1m [facility] nn 6d18f2 2013-12-06 2013-12-06 Unknown nullFlavo Comprehensi ae7f e5a8-1 [facility] 20:00:00 20:00:00 r ve Heart 9ab-460c-8 l Care PA ce0-9ed63b [facility] nn 12607f 2013-12-06 2013-12-06 Unknown nullFlavo Comprehensi f0cb dbb7-e [facility] 20:00:00 20:00:00 r ve Heart ebb-42f2-8 l Care PA a1g-gblhu3 [facility] nn 7c80f4 2013-12-06 2013-12-06 Unknown nullFlavo Comprehensi 4525 51e0-a [facility] 20:00:00 20:00:00 r ve Heart d3v-6777-m l Care PA ed2-6v299m [facility] nn bdc22e 2013-12-06 2013-12-06 Unknown nullFlavo Comprehensi 6004 acf8-2 [facility] 20:00:00 20:00:00 r ve Heart ef8-42f0-b l Care PA b7y-225422 [facility] nn f1a77b 2013-12-06 2013-12-06 Unknown nullFlavo Comprehensi ec38 3577-f [facility] 20:00:00 20:00:00 r ve Heart 9y1-27r3-5 l Care PA e92-823888 [facility] nn ecf53a 2013-12-06 2013-12-06 Unknown nullFlavo Comprehensi cc4d 297a-0 [facility] 20:00:00 20:00:00 r ve Heart 1n7-5h4e-b l Care PA o72-6yo679 [facility] nn 28bd97 2013-12-06 2013-12-06 Unknown nullFlavo Comprehensi 71ac b782-3 [facility] 20:00:00 20:00:00 r ve Heart fe3-4d33-8 l Care PA 578-e8981j [facility] nn 672821 8591-03-26 2013-12-06 Unknown nullFlavo Comprehensi 26db d8d3-2 [facility] 20:00:00 20:00:00 r ve Heart bce-40e8-b l Care PA 336-k6h478 [facility] nn 15e45d 2013-12-06 2013-12-06 Unknown nullFlavo Comprehensi 2223 52b6-b [facility] 20:00:00 20:00:00 r ve Heart v04-9k14-v l Care PA d97-2o59fx [facility] nn zy6696 2013-12-06 2013-12-06 Unknown nullFlavo Comprehensi 2234 d46c-3 [facility] 20:00:00 20:00:00 r ve Heart ef7-4ea6-8 l Care PA q2u-03o6y2 [facility] nn f7da09 2013-12-06 2013-12-06 Unknown nullFlavo Comprehensi 22ce 10ef-4 [facility] 20:00:00 20:00:00 r ve Heart j3n-58z7-v l Care PA n9c-4dd87p [facility] nn 830ecc 2013-12-06 2013-12-06 Unknown nullFlavo Comprehensi 3adb 7634-5 [facility] 20:00:00 20:00:00 r ve Heart bf8-49f6-8 l Care PA 10c-j1a281 [facility] nn io077e 2013-12-06 2013-12-06 Unknown nullFlavo Comprehensi 1148 1864-4 [facility] 20:00:00 20:00:00 r ve Heart 6cf-494e-9 l Care PA 079-55c2a4 [facility] nn 26806w 2013-12-06 2013-12-06 Unknown nullFlavo Comprehensi 466c bb83-1 [facility] 20:00:00 20:00:00 r ve Heart 7fe-4180-9 l Care PA e43-r040ke [facility] nn beced9 2013-12-06 2013-12-06 Unknown nullFlavo Comprehensi c12e c8e3-5 [facility] 20:00:00 20:00:00 r ve Heart 7ad-4721-b l Care PA 682-0c1ef1 [facility] nn a0dd49 2013-12-06 2013-12-06 Unknown nullFlavo Comprehensi 5263 1297-b [facility] 20:00:00 20:00:00 r ve Heart f01-1ek4-f l Care PA 37e-6ebbd3 [facility] nn 7w4737 2013-12-06 2013-12-06 Unknown nullFlavo Comprehensi cda5 99f0-9 [facility] 20:00:00 20:00:00 r ve Heart 50c-48b1-8 l Care PA k40-348354 [facility] nn 0d6ce8 2013-12-06 2013-12-06 Unknown nullFlavo Comprehensi 48ba ac32-3 [facility] 20:00:00 20:00:00 r ve Heart p20-1980-0 l Care PA 9z3-82os9n [facility] nn 6d18f2 2013-12-06 2013-12-06 Unknown nullFlavo Comprehensi ae7f e5a8-1 [facility] 20:00:00 20:00:00 r ve Heart 9ab-460c-8 l Care PA ce0-9ed63b [facility] nn 27986n 2013-12-06 2013-12-06 Unknown nullFlavo Comprehensi f0cb dbb7-e [facility] 20:00:00 20:00:00 r ve Heart ebb-42f2-8 l Care PA f9m-eeukj0 [facility] nn 7c80f4 2013-12-06 2013-12-06 Unknown nullFlavo Comprehensi 4525 51e0-a [facility] 20:00:00 20:00:00 r ve Heart a8r-9094-q l Care PA ed2-9w444q [facility] nn bdc22e 2013-12-06 2013-12-06 Unknown nullFlavo Comprehensi 6004 acf8-2 [facility] 20:00:00 20:00:00 r ve Heart ef8-42f0-b l Care PA t1k-207614 [facility] nn f1a77b 2013-12-06 2013-12-06 Unknown nullFlavo Comprehensi ec38 3577-f [facility] 20:00:00 20:00:00 r ve Heart 5b4-85s6-1 l Care PA j19-173463 [facility] nn ecf53a 2013-12-06 2013-12-06 Unknown nullFlavo Comprehensi cc4d 297a-0 [facility] 20:00:00 20:00:00 r ve Heart 4l2-7h5f-w l Care PA t97-3pi224 [facility] nn 28bd97 2013-12-06 2013-12-06 Unknown nullFlavo Comprehensi 71ac b782-3 [facility] 20:00:00 20:00:00 r ve Heart fe3-4d33-8 l Care PA 578-k3842f [facility] nn 258228 0115-03-26 2013-12-06 Unknown nullFlavo Comprehensi 26db d8d3-2 [facility] 20:00:00 20:00:00 r ve Heart bce-40e8-b l Care PA 336-c7v994 [facility] nn 15e45d 2013-12-06 2013-12-06 Unknown nullFlavo Comprehensi 2223 52b6-b [facility] 20:00:00 20:00:00 r ve Heart f98-6e76-j l Care PA z26-0y22ab [facility] nn tq8781 2013-12-06 2013-12-06 Unknown nullFlavo Comprehensi 2234 d46c-3 [facility] 20:00:00 20:00:00 r ve Heart ef7-4ea6-8 l Care PA w6k-93n0b7 [facility] nn f7da09 2013-12-06 2013-12-06 Unknown nullFlavo Comprehensi 22ce 10ef-4 [facility] 20:00:00 20:00:00 r ve Heart o3u-48q2-r l Care PA h5x-3tg71d [facility] nn 830ecc 2013-12-06 2013-12-06 Unknown nullFlavo Comprehensi 3adb 7634-5 [facility] 20:00:00 20:00:00 r ve Heart bf8-49f6-8 l Care PA 10c-l2p395 [facility] nn fh063r 2013-12-06 2013-12-06 Unknown nullFlavo Comprehensi 1148 1864-4 [facility] 20:00:00 20:00:00 r ve Heart 6cf-494e-9 l Care PA 079-55c2a4 [facility] nn 00973i 2013-12-06 2013-12-06 Unknown nullFlavo Comprehensi 466c bb83-1 [facility] 20:00:00 20:00:00 r ve Heart 7fe-4180-9 l Care PA h93-n816fu [facility] nn beced9 2013-12-06 2013-12-06 Unknown nullFlavo Comprehensi cda5 99f0-9 [facility] 20:00:00 20:00:00 r ve Heart 50c-48b1-8 l Care PA q96-714080 [facility] nn 0d6ce8 2013-12-06 2013-12-06 Unknown nullFlavo Comprehensi 48ba ac32-3 [facility] 20:00:00 20:00:00 r ve Heart d65-3728-9 l Care PA 7c3-57vb2x [facility] nn 6d18f2 2013-12-06 2013-12-06 Unknown nullFlavo Comprehensi cc4d 297a-0 [facility] 20:00:00 20:00:00 r ve Heart 0h4-8p8r-q l Care PA b91-5jv172 [facility] nn 28bd97 2013-12-06 2013-12-06 Unknown nullFlavo Comprehensi 5263 1297-b [facility] 20:00:00 20:00:00 r ve Heart u49-5xb3-c l Care PA 37e-6ebbd3 [facility] nn 2k1836 2013-12-06 2013-12-06 Unknown nullFlavo Comprehensi 6004 acf8-2 [facility] 20:00:00 20:00:00 r ve Heart ef8-42f0-b l Care PA l7b-238202 [facility] nn f1a77b 2013-12-06 2013-12-06 Unknown nullFlavo Comprehensi ae7f e5a8-1 [facility] 20:00:00 20:00:00 r ve Heart 9ab-460c-8 l Care PA ce0-9ed63b [facility] nn 32439w 2013-12-06 2013-12-06 Outpatient Comprehen Comprehensi 2 02390 [facility] 15:00:00 15:00:00 sive ve Heart alWor ut Heart Care PA Care PA 2013-12-06 2013-12-06 Outpatient Comprehen Comprehensi 2 23721 [facility] 15:00:00 15:00:00 [facility] Heart alWor ut Heart Care PA Care PA 2013-11-10 2013-11-10 2014 nullFlavo Comprehensi eb5c 38c6-f [facility] 17:07:00 17:07:00 medicare r ve Heart a9o-89q9-1 l Care PA 5o1-a9z25t [facility] nn b890c0 2013-11-10 2013-11-102013 nullFlavo Comprehensi 675e b5bc-0 [facility] 17:07:00 17:07:00 medicare r ve Heart 9y4-96b0-9 l Care PA 891-d400dc [facility] nn c1y395 2013-11-10 2013-11-102013 nullFlavo Comprehensi dd33 f9e3-2 [facility] 17:07:00 17:07:00 medicare r ve Heart ecc-4125-b l Care PA 01c-941fb1 [facility] nn b7f5be 2013-11-10 2013-11-102013 nullFlavo Comprehensi 3404 2706-b [facility] 17:07:00 17:07:00 medicare r ve Heart 642-4896-8 l Care PA b40-897570 [facility] nn 1b96a9 2013-11-10 2013-11-102013 nullFlavo Comprehensi 7bd7 6b8f-6 [facility] 17:07:00 17:07:00 medicare r ve Heart m40-02r2-6 l Care PA 21f-8b85e5 [facility] nn 6dcab9 2013-11-10 2013-11-102013 nullFlavo Comprehensi 993b 2a1c-7 [facility] 17:07:00 17:07:00 medicare r ve Heart 0s8-9rk3-8 l Care PA 0ee-c9e8ad [facility] nn 19c4dd 2013-11-10 2013-11-102013 nullFlavo Comprehensi 6821 371e-9 [facility] 17:07:00 17:07:00 medicare r ve Heart 023-4ac5-8 l Care PA p79-s34723 [facility] nn 69b222 2013-11-10 2013-11-102013 nullFlavo Comprehensi 9102 0f74-1 [facility] 17:07:00 17:07:00 medicare r ve Heart 60d-4365-b l Care PA cba-2bfb6e [facility] nn 2v461v 2013-11-10 2013-11-102013 nullFlavo Comprehensi eb5c 38c6-f [facility] 17:07:00 17:07:00 medicare r ve Heart b0r-23x0-6 l Care PA 7s9-q7w50z [facility] nn b890c0 2013-11-10 2013-11-102013 nullFlavo Comprehensi 675e b5bc-0 [facility] 17:07:00 17:07:00 medicare r ve Heart 8u7-22k9-4 l Care PA 891-d400dc [facility] nn h1i528 2013-11-10 2013-11-102013 nullFlavo Comprehensi 9102 0f74-1 [facility] 17:07:00 17:07:00 medicare r ve Heart 60d-4365-b l Care PA cba-2bfb6e [facility] nn 4s655k 2013-11-10 2013-11-102013 nullFlavo Comprehensi 993b 2a1c-7 [facility] 17:07:00 17:07:00 medicare r ve Heart 2e1-7bq0-1 l Care PA 0ee-c9e8ad [facility] nn 19c4dd 2013-11-10 2013-11-102013 nullFlavo Comprehensi 6821 371e-9 [facility] 17:07:00 17:07:00 medicare r ve Heart 023-4ac5-8 l Care PA d31-u76908 [facility] nn 39y730 2013-11-10 2013-11-102013 nullFlavo Comprehensi dd33 f9e3-2 [facility] 17:07:00 17:07:00 medicare r ve Heart ecc-4125-b l Care PA 01c-941fb1 [facility] nn b7f5be 2013-11-10 2013-11-102013 nullFlavo Comprehensi 3404 2706-b [facility] 17:07:00 17:07:00 medicare r ve Heart 642-4896-8 l Care PA u99-536730 [facility] nn 1b96a9 2013-11-10 2013-11-102013 nullFlavo Comprehensi 7bd7 6b8f-6 [facility] 17:07:00 17:07:00 medicare r ve Heart u06-01z0-1 l Care PA 21f-8b85e5 [facility] nn 6dcab9 2013-11-10 2013-11-102013 nullFlavo Comprehensi eb5c 38c6-f [facility] 17:07:00 17:07:00 medicare r ve Heart y6v-67n8-7 l Care PA 0d7-m6h66m [facility] nn b890c0 2013-11-10 2013-11-102013 nullFlavo Comprehensi 675e b5bc-0 [facility] 17:07:00 17:07:00 medicare r ve Heart 9x4-59f5-5 l Care PA 891-d400dc [facility] nn p1l539 2013-11-10 2013-11-102013 nullFlavo Comprehensi 9102 0f74-1 [facility] 17:07:00 17:07:00 medicare r ve Heart 60d-4365-b l Care PA cba-2bfb6e [facility] nn 1e286y 2013-11-10 2013-11-102013 nullFlavo Comprehensi 993b 2a1c-7 [facility] 17:07:00 17:07:00 medicare r ve Heart 4y4-9mh3-5 l Care PA 0ee-c9e8ad [facility] nn 19c4dd 2013-11-10 2013-11-102013 nullFlavo Comprehensi 6821 371e-9 [facility] 17:07:00 17:07:00 medicare r ve Heart 023-4ac5-8 l Care PA z65-i24746 [facility] nn 47j971 2013-11-10 2013-11-102013 nullFlavo Comprehensi dd33 f9e3-2 [facility] 17:07:00 17:07:00 medicare r ve Heart ecc-4125-b l Care PA 01c-941fb1 [facility] nn b7f5be 2013-11-10 2013-11-102013 nullFlavo Comprehensi 3404 2706-b [facility] 17:07:00 17:07:00 medicare r ve Heart 642-4896-8 l Care PA q90-190967 [facility] nn 1b96a9 2013-11-10 2013-11-102013 nullFlavo Comprehensi 7bd7 6b8f-6 [facility] 17:07:00 17:07:00 medicare r ve Heart p85-16v4-8 l Care PA 21f-8b85e5 [facility] nn 6dcab9 2013-11-10 2013-11-102013 nullFlavo Comprehensi 641f ea06-d [facility] 16:07:00 16:07:00 medicare r ve Heart 304-49af-8 l Care PA 0k7-046s9w [facility] nn 42ee64 2013-11-10 2013-11-102013 nullFlavo Comprehensi 7199 5c4c-b [facility] 16:07:00 16:07:00 medicare r ve Heart 329-4487-b l Care PA fed-f51b91 [facility] nn ca37a1 2013-11-10 2013-11-102013 nullFlavo Comprehensi f28e de05-c [facility] 16:07:00 16:07:00 medicare r ve Heart 3bf-4794-9 l Care PA m62-2g1560 [facility] nn 69a17c 2013-11-10 2013-11-102013 nullFlavo Comprehensi d391 fe4b-0 [facility] 16:07:00 16:07:00 medicare r ve Heart 023-4f75-8 l Care PA 07c-481e44 [facility] nn 985265 7262-02-28 2013-11-102013 nullFlavo Comprehensi b14c 1222-3 [facility] 16:07:00 16:07:00 medicare r ve Heart 1l0-09i5-7 l Care PA 723-ea7d69 [facility] nn d701d8 2013-11-10 2013-11-102013 nullFlavo Comprehensi 380c 33f0-5 [facility] 16:07:00 16:07:00 medicare r ve Heart x98-291u-3 l Care PA h9x-05c794 [facility] nn 909c5c 2013-11-10 2013-11-102013 nullFlavo Comprehensi 42b7 78de-c [facility] 16:07:00 16:07:00 medicare r ve Heart b3x-94qb-7 l Care PA 7fe-0c89b0 [facility] nn z9052h 2013-11-10 2013-11-102013 nullFlavo Comprehensi 9b42 a7c1-e [facility] 16:07:00 16:07:00 medicare r ve Heart 3bb-4b69-a l Care PA 0p1-46z4qc [facility] nn d3e092 2013-11-10 2013-11-102013 nullFlavo Comprehensi 2f03 d85d-b [facility] 16:07:00 16:07:00 medicare r ve Heart 848-4fc6-b l Care PA 34d-760ef0 [facility] nn d20b8c 2013-11-10 2013-11-102013 nullFlavo Comprehensi dde1 c27c-4 [facility] 16:07:00 16:07:00 medicare r ve Heart 3b9-3838-4 l Care PA 0g8-qx640g [facility] nn 0t251u 2013-11-10 2013-11-102013 nullFlavo Comprehensi a001 52ee-1 [facility] 16:07:00 16:07:00 medicare r ve Heart 035-4685-9 l Care PA 674-50ff46 [facility] nn 9e1d59 2013-11-10 2013-11-102013 nullFlavo Comprehensi d38b 118a-5 [facility] 16:07:00 16:07:00 medicare [facility] ve [facility] u84-2305-1 l Care PA [id number] [facility] nn [id number] 2013-11-10 2013-11-102013 nullFlavo Comprehensi 9c95 1a55-3 [facility] 16:07:00 16:07:00 medicare [facility] ve [facility] h21-3142-4 l Care PA [id number] [facility] nn [id number] 2013-11-10 2013-11-102013 nullFlavo Comprehensi 8353 27d5-c [facility] 16:07:00 16:07:00 [facility]are [facility] 6q9-51u4-w l Care PA [id number] [facility] nn [id number] 6827-02-28 2013-11-102013 nullFlavo Comprehensi a1b0 be23-4 [facility] 16:07:00 16:07:00 medicare [facility] ve [facility] acc-4a0d-8 l Care PA [id number] [facility] nn [id number] 2013-11-10 2013-11-102013 nullFlavo Comprehensi 39a1 f91d-a [facility] 16:07:00 16:07:00 medicare r ve Heart 144-4c80-a l Care [place] [id number] [facility] nn [id number] 2013-11-10 2013-11-102013 nullFlavo Comprehensi 046f cefa-2 [facility] 16:07:00 16:07:00 medicare [facility] ve [facility] t62-1c05-g l Care [place] [id number] [facility] nn [id number] 2013-11-10 2013-11-102013 nullFlavo Comprehensi 7733 177a-4 [facility] 16:07:00 16:07:00 [facility] 02b-4d10-9 l Care [place] [id number] [facility] nn 7ca7dd 2013-11-10 2013-11-102013 nullFlavo Comprehensi 2f03 d85d-b [facility] 16:07:00 16:07:00 [facility] 848-4fc6-b l Care [place] [id number]-[id number] [facility] nn [id number] 2013-11-10 2013-11-102013 nullFlavo Comprehensi d391 fe4b-0 [facility] 16:07:00 16:07:00 [facility] 023-4f75-8 l Care PA [id number] [facility] nn [id number] 6253-02-28 2013-11-102013 nullFlavo Comprehensi 641f ea06-d [facility] 16:07:00 16:07:00 [facility] 304-49af-8 l Care PA [id number] [facility] nn [id number] 2013-11-10 2013-11-102013 nullFlavo Comprehensi 7199 5c4c-b [facility] 16:07:00 16:07:00 medicare [facility] ve Heart 329-4487-b l Care PA [id number] [facility] nn [id number] 2013-11-10 2013-11-102013 nullFlavo Comprehensi 380c 33f0-5 [facility] 16:07:00 16:07:00 medicare [facility] ve [facility] k10-886s-4 l Care PA [id number] [facility] nn [id number] 2013-11-10 2013-11-102013 nullFlavo Comprehensi 9b42 a7c1-e [facility] 16:07:00 16:07:00 [facility]are [facility] ve [facility] 3bb-4b69-a l Care [place] [id number] [facility] nn [id number] 2013-11-10 2013-11-102013 nullFlavo Comprehensi 8353 27d5-c [facility] 16:07:00 16:07:00 [facility]are [facility] ve Heart 2o5-19l1-g l Care PA [id number] [facility] nn [id number] 3813-02-28 2013-11-102013 nullFlavo Comprehensi b14c 1222-3 [facility] 16:07:00 16:07:00 medicare [facility] ve Heart 1k6-74s1-8 l Care PA [id number] [facility] nn [id number] 2013-11-10 2013-11-102013 nullFlavo Comprehensi 42b7 78de-c [facility] 16:07:00 16:07:00 medicare [facility] ve Heart b5i-26xy-0 l Care PA [id number] [facility] nn [id number] 2013-11-10 2013-11-102013 nullFlavo Comprehensi f28e de05-c [facility] 16:07:00 16:07:00 medicare [facility] ve [facility] 3bf-4794-9 l Care PA [id number] [facility] nn [id number] 2013-11-10 2013-11-102013 nullFlavo Comprehensi d38b 118a-5 [facility] 16:07:00 16:07:00 medicare [facility] ve Heart b58-8551-6 l Care PA [id number] [facility] nn [id number] 2013-11-10 2013-11-102013 nullFlavo Comprehensi 9c95 1a55-3 [facility] 16:07:00 16:07:00 medicare [facility] ve Heart i74-8179-5 l Care PA [id number] [facility] nn [id number] 2013-11-10 2013-11-102013 nullFlavo Comprehensi a001 52ee-1 [facility] 16:07:00 16:07:00 medicare [facility] ve Heart 035-4685-9 l Care PA [id number] [facility] nn [id number] 2013-11-10 2013-11-102013 nullFlavo Comprehensi 39a1 f91d-a [facility] 16:07:00 16:07:00 [facility]are [facility] ve Heart 144-4c80-a l Care PA [id number] [facility] nn [id number] 2013-11-10 2013-11-102013 nullFlavo Comprehensi dde1 c27c-4 [facility] 16:07:00 16:07:00 [facility] 0p4-7950-9 l Care PA [id number]-[id number] [facility] nn [id number] 2013-11-10 2013-11-102013 nullFlavo Comprehensi a1b0 be23-4 [facility] 16:07:00 16:07:00 [facility] ve [facility] acc-4a0d-8 l Care PA [id number] [facility] nn [id number] 2013-11-10 2013-11-102013 nullFlavo Comprehensi 046f cefa-2 [facility] 16:07:00 16:07:00 [facility] n77-1x58-n l Care [place] [id number]-2bcd59 [facility] nn ad66fd 2013-11-10 2013-11-102013 nullFlavo Comprehensi 7733 177a-4 [facility] 16:07:00 16:07:00 [facility] 02b-4d10-9 l Care PA [id number] [facility] nn 7ca7dd 2013-11-10 2013-11-102013 nullFlavo Comprehensi 2f03 d85d-b [facility] 16:07:00 16:07:00 [facility] 848-4fc6-b l Care PA [id number]-[id number] [facility] nn [id number] 2013-11-10 2013-11-102013 nullFlavo Comprehensi d391 fe4b-0 [facility] 16:07:00 16:07:00 [facility] 023-4f75-8 l Care PA [id number]-[id number] [facility] nn [id number] 0719-02-28 2013-11-102013 nullFlavo Comprehensi 641f ea06-d [facility] 16:07:00 16:07:00 [facility]are [facility] 304-49af-8 l Care PA [id number] [facility] nn [id number] 2013-11-10 2013-11-102013 nullFlavo Comprehensi 7199 5c4c-b [facility] 16:07:00 16:07:00 [facility] 329-4487-b l Care PA [id number]-[id number] [facility] nn [id number] 2013-11-10 2013-11-102013 nullFlavo Comprehensi 380c 33f0-5 [facility] 16:07:00 16:07:00 [facility]are [facility] ve [facility] s80-829a-1 l Care PA [id number] [facility] nn 909c5c 2013-11-10 2013-11-102013 nullFlavo Comprehensi 9b42 a7c1-e [facility] 16:07:00 16:07:00 medicare r ve Heart 3bb-4b69-a l Care PA 5w7-94c8cr [facility] nn b4m022 2013-11-10 2013-11-102013 nullFlavo Comprehensi 8353 27d5-c Memoria 16:07:00 16:07:00 medicare r ve Heart 0s7-96b1-l l Care PA af5-0d6c70 [facility] nn [id number] 1829-02-28 2013-11-102013 nullFlavo Comprehensi b14c 1222-3 Memoria 16:07:00 16:07:00 medicare r ve Heart 6e6-18u5-2 l Care PA 723-ea7d69 [facility] nn d701d8 2013-11-10 2013-11-102013 nullFlavo Comprehensi 42b7 78de-c Memoria 16:07:00 16:07:00 medicare r ve Heart e7u-02xl-4 l Care PA 7fe-0c89b0 [facility] nn b0790b 2013-11-10 2013-11-102013 nullFlavo Comprehensi f28e de05-c Memoria 16:07:00 16:07:00 medicare r ve Heart 3bf-4794-9 l Care PA f52-1h6277 [facility] nn 69a17c 2013-11-10 2013-11-102013 nullFlavo Comprehensi d38b 118a-5 Memoria 16:07:00 16:07:00 medicare r ve Heart x11-6976-3 l Care PA de4-7fb27f [facility] nn 44f6c1 2013-11-10 2013-11-102013 nullFlavo Comprehensi 9c95 1a55-3 Mem[facility] 16:07:00 16:07:00 medicare r ve Heart a15-6785-0 l Care PA 6d6-298583 [facility] nn 63593w 2013-11-10 2013-11-102013 nullFlavo Comprehensi a001 52ee-1 [facility] 16:07:00 16:07:00 medicare r ve Heart 035-4685-9 l Care PA 674-50ff46 [facility] nn 9e1d59 2013-11-10 2013-11-10 2014 nullFlavo Comprehensi 39a1 f91d-a [facility] 16:07:00 16:07:00 medicare r ve Heart 144-4c80-a l Care PA dd5-2bdbc3 [facility] nn m03650 2013-11-10 2013-11-10 2014 nullFlavo Comprehensi dde1 c27c-4 [facility] 16:07:00 16:07:00 medicare r ve Heart 7b6-1925-0 l Care PA 5d0-ms288k [facility] nn 1r946n 2013-11-10 2013-11-10 2014 nullFlavo Comprehensi a1b0 be23-4 [facility] 16:07:00 16:07:00 medicare r ve Heart acc-4a0d-8 l Care PA e7t-0530py [facility] nn 7g707q 2013-11-10 2013-11-10 2014 nullFlavo Comprehensi 046f cefa-2 [facility] 16:07:00 16:07:00 medicare r ve Heart q19-6j23-t l Care PA 55b-2bcd59 [facility] nn ad66fd 2013-11-10 2013-11-10 2014 nullFlavo Comprehensi 7733 177a-4 [facility] 16:07:00 16:07:00 medicare r ve Heart 02b-4d10-9 l Care PA 0dc-a34fa4 [facility] nn 7ca7dd 2013-11-10 2013-11-10 Outpatient Comprehen Comprehensi [facility] 73182 [facility] 11:07:00 11:07:00 sive ve Heart alWor ut Heart Care PA Care PA 2013-11-10 2013-11-10 Outpatient Comprehen Comprehensi 2 97214 [facility]inic 11:07:00 11:07:00 sive ve Heart alWor ut Heart Care PA Care PA 2013-10-05 2013-10-05 Unknown nullFlavo Comprehensi 4575 44c6-9 [facility] 21:28:00 21:28:00 r ve Heart x0h-6nd7-n l Care PA c08-7371dn [facility] nn 3ff8c3 2013-10-05 2013-10-05 Unknown nullFlavo Comprehensi 16c9 d682-e [facility] 21:28:00 21:28:00 r ve Heart fac-47e5-b l Care PA 710-c618a8 [facility] nn 288ba0 2013-10-05 2013-10-05 Unknown nullFlavo Comprehensi e853 1680-0 [facility]oria 21:28:00 21:28:00 r ve Heart h8s-98vo-3 l Care PA 26f-b885c9 [facility] nn 79680s 2013-10-05 2013-10-05 Unknown nullFlavo Comprehensi 6890 f0de-f Memoria 21:28:00 21:28:00 r ve Heart ea4-4c8b-a l Care PA m31-o33dlc [facility] nn 0888bc 2013-10-05 2013-10-05 Unknown nullFlavo Comprehensi e99e d83d-f Memoria 21:28:00 21:28:00 r ve Heart 863-4845-9 l Care PA 745-12a97f [facility] nn 081fbe 2013-10-05 2013-10-05 Unknown nullFlavo Comprehensi 793a 01e3-0 [facility]oria 21:28:00 21:28:00 r ve Heart w3j-6982-6 l Care PA 61b-62a74b [facility] nn 5cca42 2013-10-05 2013-10-05 Unknown nullFlavo Comprehensi 7e26 daf6-9 [facility]oria 21:28:00 21:28:00 r ve Heart j5p-4t33-b l Care PA 52e-57e266 [facility] nn 9a58a4 2013-10-05 2013-10-05 Unknown nullFlavo Comprehensi 60cf e0b3-f Memoria 21:28:00 21:28:00 r ve Heart r2x-4wuw-9 l Care PA 043-130450 [facility] nn 543758 1705-01-23 2013-10-05 Unknown nullFlavo Comprehensi fda5 a9f9-5 [facility]oria 21:28:00 21:28:00 r ve Heart 4o7-753p-z l Care PA ac6-a8c9dd [facility] nn 23l984 2013-10-05 2013-10-05 Unknown nullFlavo Comprehensi 4575 44c6-9 [facility] 21:28:00 21:28:00 r ve Heart w2r-3ov6-u l Care PA t72-4989nt [facility] nn 3ff8c3 2013-10-05 2013-10-05 Unknown nullFlavo Comprehensi 16c9 d682-e [facility]oria 21:28:00 21:28:00 r ve Heart fac-47e5-b l Care PA 710-c618a8 [facility] nn 288ba0 2013-10-05 2013-10-05 Unknown nullFlavo Comprehensi e853 1680-0 Memoria 21:28:00 21:28:00 r ve Heart a0d-56vd-7 l Care PA 26f-b885c9 [facility] nn 24269n 2013-10-05 2013-10-05 Unknown nullFlavo Comprehensi fda5 a9f9-5 [facility]oria 21:28:00 21:28:00 r ve Heart 4q9-441y-h l Care PA ac6-a8c9dd [facility] nn 82z494 2013-10-05 2013-10-05 Unknown nullFlavo Comprehensi 7e26 daf6-9 Memoria :28:00 21:28:00 r ve Heart w2x-2y95-w l Care PA 52e-14q857 [facility] nn 9a58a4 2013-10-05 2013-10-05 Unknown nullFlavo Comprehensi 60cf e0b3-f Memoria :28:00 21:28:00 r ve Heart b5s-8vop-3 l Care PA 043-440118 [facility] nn 257044 8916-01-23 2013-10-05 Unknown nullFlavo Comprehensi 6890 f0de-f Memoria :28:00 21:28:00 r ve Heart ea4-4c8b-a l Care PA i94-c41jbs [facility] nn 0888bc 2013-10-05 2013-10-05 Unknown nullFlavo Comprehensi e99e d83d-f Memoria 21:28:00 21:28:00 r ve Heart 863-4845-9 l Care PA 745-12a97f [facility] nn 081fbe 2013-10-05 2013-10-05 Unknown nullFlavo Comprehensi 793a 01e3-0 [facility]oria 21:28:00 21:28:00 r ve Heart z8q-7203-8 l Care PA 61b-62a74b [facility] nn 5cca42 2013-10-05 2013-10-05 Unknown nullFlavo Comprehensi 4575 44c6-9 [facility] 21:28:00 21:28:00 r ve Heart b9b-3yi5-s l Care PA c40-7987eh [facility] nn 3ff8c3 2013-10-05 2013-10-05 Unknown nullFlavo Comprehensi 16c9 d682-e [facility]oria 21:28:00 21:28:00 r ve Heart fac-47e5-b l Care PA 710-c618a8 [facility] nn 288ba0 2013-10-05 2013-10-05 Unknown nullFlavo Comprehensi e853 1680-0 Memoria :28:00 21:28:00 r ve Heart i3v-95qq-6 l Care PA 26f-b885c9 [facility] nn 43636y 2013-10-05 2013-10-05 Unknown nullFlavo Comprehensi fda5 a9f9-5 Memoria :28:00 21:28:00 r ve Heart 4x9-145h-c l Care PA ac6-a8c9dd [facility] nn 86s079 2013-10-05 2013-10-05 Unknown nullFlavo Comprehensi 7e26 daf6-9 Memoria :28:00 21:28:00 r ve Heart q8b-9k76-c l Care PA 52e-69u495 [facility] nn 9a58a4 2013-10-05 2013-10-05 Unknown nullFlavo Comprehensi 60cf e0b3-f Memoria :28:00 21:28:00 r ve Heart m2z-9kbj-3 l Care PA 043-245749 [facility] nn 621649 4383-01-23 2013-10-05 Unknown nullFlavo Comprehensi 6890 f0de-f Memoria :28:00 21:28:00 r ve Heart ea4-4c8b-a l Care PA s29-a70xym [facility] nn 0888bc 2013-10-05 2013-10-05 Unknown nullFlavo Comprehensi e99e d83d-f Memoria 21:28:00 21:28:00 r ve Heart 863-4845-9 l Care PA 745-12a97f [facility] nn 081fbe 2013-10-05 2013-10-05 Unknown nullFlavo Comprehensi 793a 01e3-0 Memoria 21:28:00 21:28:00 r ve Heart u6j-8111-7 l Care PA 61b-62a74b [facility] nn 5cca42 2013-10-05 2013-10-05 Unknown nullFlavo Comprehensi 18da 623d-3 Memoria 20:28:00 20:28:00 r ve Heart y7t-2ez9-w l Care PA 59b-026ca2 [facility] nn on961v 2013-10-05 2013-10-05 Unknown nullFlavo Comprehensi fe5c 38e9-7 Memoria 20:28:00 20:28:00 r ve Heart 707-4c9d-b l Care PA 60a-f87d0d [facility] nn fdee6a 2013-10-05 2013-10-05 Unknown nullFlavo Comprehensi eed9 aff3-0 [facility]oria 20:28:00 20:28:00 r ve Heart 953-4631-b l Care PA 602-e3fc16 [facility] nn 99df7b 2013-10-05 2013-10-05 Unknown nullFlavo Comprehensi 2a0e ae58-0 [facility]oria 20:28:00 20:28:00 r ve Heart x19-0q3e-l l Care PA e43-z259t8 [facility] nn b27a73 2013-10-05 2013-10-05 Unknown nullFlavo Comprehensi 7826 816e-e Memoria 20:28:00 20:28:00 r ve Heart 3q6-57od-f l Care PA 0x6-7750h9 [facility] nn bb13bc 2013-10-05 2013-10-05 Unknown nullFlavo Comprehensi 3519 9c48-9 Memoria 20:28:00 20:28:00 r ve Heart 095-4caf-b l Care PA 09b-b0dfd9 [facility] nn 792386 4239-01-23 2013-10-05 Unknown nullFlavo Comprehensi a824 4208-6 [facility]oria 20:28:00 20:28:00 r ve Heart 556-422d-b l Care PA 023-d8e781 [facility] nn 5ex226 2013-10-05 2013-10-05 Unknown nullFlavo Comprehensi 897d fba9-c Memoria 20:28:00 20:28:00 r ve Heart efa-427e-b l Care PA 0p8-4v9522 [facility] nn 5c1f4a 2013-10-05 2013-10-05 Unknown nullFlavo Comprehensi cfc3 c5b2-1 [facility] 20:28:00 20:28:00 r ve Heart 215-4597-9 l Care PA 910-x99023 [facility] nn dda74a 2013-10-05 2013-10-05 Unknown nullFlavo Comprehensi c3a1 e75c-1 [facility] 20:28:00 20:28:00 r ve Heart 891-4492-a l Care PA beb-451d0d [facility] nn w4252m 2013-10-05 2013-10-05 Unknown nullFlavo Comprehensi 11dd f136-0 [facility]oria 20:28:00 20:28:00 r ve Heart f60-436s-u l Care PA 7dd-4ee56a [facility] nn a2ff79 2013-10-05 2013-10-05 Unknown nullFlavo Comprehensi 5baa f98d-4 [facility]oria 20:28:00 20:28:00 r ve Heart 1p6-487s-p l Care PA s67-z947k6 [facility] nn 8e735e 2013-10-05 2013-10-05 Unknown nullFlavo Comprehensi 032c d99e-6 Memoria 20:28:00 20:28:00 r ve Heart 6g5-51wd-i l Care PA fa1-9sr236 [facility] nn 008a01 2013-10-05 2013-10-05 Unknown nullFlavo Comprehensi dd5a fae6-4 [facility]oria 20:28:00 20:28:00 r ve Heart fba-4c1e-b l Care PA 568-6f4f28 [facility] nn f414f1 2013-10-05 2013-10-05 Unknown nullFlavo Comprehensi f10e ff98-8 [facility]oria 20:28:00 20:28:00 r ve Heart 779-4ad6-b l Care PA 8d2-ad7u73 [facility] nn 412a6f 2013-10-05 2013-10-05 Unknown nullFlavo Comprehensi 0f8b bbd1-6 [facility]oria 20:28:00 20:28:00 r ve Heart 37d-4f44-9 l Care PA u51-5i29b3 [facility] nn e60dfe 2013-10-05 2013-10-05 Unknown nullFlavo Comprehensi ddc6 77c1-e [facility] 20:28:00 20:28:00 r ve Heart 8z3-3w15-0 l Care PA 918-495b33 [facility] nn 3707ce 2013-10-05 2013-10-05 Unknown nullFlavo Comprehensi 8468 9364-d [facility] 20:28:00 20:28:00 r ve Heart 0bf-47dd-a l Care PA a17-375g55 [facility] nn f36dab 2013-10-05 2013-10-05 Unknown nullFlavo Comprehensi cfc3 c5b2-1 [facility] 20:28:00 20:28:00 r ve Heart 215-4597-9 l Care PA 910-i08082 [facility] nn dda74a 2013-10-05 2013-10-05 Unknown nullFlavo Comprehensi 2a0e ae58-0 [facility] 20:28:00 20:28:00 r ve Heart t03-5u7g-n l Care PA l32-g534r9 [facility] nn b27a73 2013-10-05 2013-10-05 Unknown nullFlavo Comprehensi 18da 623d-3 [facility]oria 20:28:00 20:28:00 r ve Heart o6o-1zx1-n l Care PA 59b-026ca2 [facility] nn ry735m 2013-10-05 2013-10-05 Unknown nullFlavo Comprehensi fe5c 38e9-7 [facility] 20:28:00 20:28:00 r ve Heart 707-4c9d-b l Care PA 60a-f87d0d [facility] nn fdee6a 2013-10-05 2013-10-05 Unknown nullFlavo Comprehensi 3519 9c48-9 [facility]oria 20:28:00 20:28:00 r ve Heart 095-4caf-b l Care PA 09b-b0dfd9 [facility] nn 223956 2440-01-23 2013-10-05 Unknown nullFlavo Comprehensi 897d fba9-c Memoria 20:28:00 20:28:00 r ve Heart efa-427e-b l Care PA 7y4-3m3401 [facility] nn 5c1f4a 2013-10-05 2013-10-05 Unknown nullFlavo Comprehensi dd5a fae6-4 [facility]oria 20:28:00 20:28:00 r ve Heart fba-4c1e-b l Care PA 568-6f4f28 [facility] nn f414f1 2013-10-05 2013-10-05 Unknown nullFlavo Comprehensi 7826 816e-e Memoria 20:28:00 20:28:00 r ve Heart 1q2-60kj-x l Care PA 0a4-3475b6 [facility] nn bb13bc 2013-10-05 2013-10-05 Unknown nullFlavo Comprehensi a824 4208-6 [facility]oria 20:28:00 20:28:00 r ve Heart 556-422d-b l Care PA 023-s2h992 [facility] nn 3wf471 2013-10-05 2013-10-05 Unknown nullFlavo Comprehensi eed9 aff3-0 [facility] 20:28:00 20:28:00 r ve Heart 953-4631-b l Care PA 602-e3fc16 [facility] nn 99df7b 2013-10-05 2013-10-05 Unknown nullFlavo Comprehensi 5baa f98d-4 [facility]oria 20:28:00 20:28:00 r ve Heart 4z7-563b-s l Care PA u97-i288p0 [facility] nn 7p347v 2013-10-05 2013-10-05 Unknown nullFlavo Comprehensi 032c d99e-6 [facility] 20:28:00 20:28:00 r ve Heart 0u8-69ik-u l Care PA fa1-3ny684 [facility] nn 008a01 2013-10-05 2013-10-05 Unknown nullFlavo Comprehensi 11dd f136-0 [facility]oria 20:28:00 20:28:00 r ve Heart a46-812y-f l Care PA 7dd-4ee56a [facility] nn a2ff79 2013-10-05 2013-10-05 Unknown nullFlavo Comprehensi 0f8b bbd1-6 [facility]oria 20:28:00 20:28:00 r ve Heart 37d-4f44-9 l Care PA u29-3a09v5 [facility] nn e60dfe 2013-10-05 2013-10-05 Unknown nullFlavo Comprehensi c3a1 e75c-1 [facility] 20:28:00 20:28:00 r ve Heart 891-4492-a l Care PA beb-451d0d [facility] nn p5830a 2013-10-05 2013-10-05 Unknown nullFlavo Comprehensi f10e ff98-8 [facility] 20:28:00 20:28:00 r ve Heart 779-4ad6-b l Care PA 0k0-vy6g19 [facility] nn 412a6f 2013-10-05 2013-10-05 Unknown nullFlavo Comprehensi ddc6 77c1-e [facility] 20:28:00 20:28:00 r ve Heart 1e9-7r81-9 l Care PA 918-495b33 [facility] nn 3707ce 2013-10-05 2013-10-05 Unknown nullFlavo Comprehensi 8468 9364-d [facility]oria 20:28:00 20:28:00 r ve Heart 0bf-47dd-a l Care PA x50-889r64 [facility] nn f36dab 2013-10-05 2013-10-05 Unknown nullFlavo Comprehensi cfc3 c5b2-1 [facility] 20:28:00 20:28:00 r ve Heart 215-4597-9 l Care PA 910-l96556 [facility] nn dda74a 2013-10-05 2013-10-05 Unknown nullFlavo Comprehensi 2a0e ae58-0 [facility] 20:28:00 20:28:00 r ve Heart l09-4b7v-g l Care PA b94-w534v1 [facility] nn b27a73 2013-10-05 2013-10-05 Unknown nullFlavo Comprehensi 18da 623d-3 [facility] 20:28:00 20:28:00 r ve Heart o3z-3zn6-a l Care PA 59b-026ca2 [facility] nn kb699b 2013-10-05 2013-10-05 Unknown nullFlavo Comprehensi fe5c 38e9-7 [facility] 20:28:00 20:28:00 r ve Heart 707-4c9d-b l Care PA 60a-f87d0d [facility] nn fdee6a 2013-10-05 2013-10-05 Unknown nullFlavo Comprehensi 3519 9c48-9 [facility] 20:28:00 20:28:00 r ve Heart 095-4caf-b l Care PA 09b-b0dfd9 [facility] nn 780801 2849-01-23 2013-10-05 Unknown nullFlavo Comprehensi 897d fba9-c [facility] 20:28:00 20:28:00 r ve Heart efa-427e-b l Care PA 0o4-1x9988 [facility] nn 5c1f4a 2013-10-05 2013-10-05 Unknown nullFlavo Comprehensi dd5a fae6-4 [facility] 20:28:00 20:28:00 r ve Heart fba-4c1e-b l Care PA 568-6f4f28 [facility] nn f414f1 2013-10-05 2013-10-05 Unknown nullFlavo Comprehensi 7826 816e-e [facility] 20:28:00 20:28:00 r ve Heart 9l0-71yg-r l Care PA 0r6-5230f2 [facility] nn bb13bc 2013-10-05 2013-10-05 Unknown nullFlavo Comprehensi a824 4208-6 [facility] 20:28:00 20:28:00 r ve Heart 556-422d-b l Care PA 023-w9p077 [facility] nn 8ol825 2013-10-05 2013-10-05 Unknown nullFlavo Comprehensi eed9 aff3-0 [facility] 20:28:00 20:28:00 r ve Heart 953-4631-b l Care PA 602-e3fc16 [facility] nn 99df7b 2013-10-05 2013-10-05 Unknown nullFlavo Comprehensi 5baa f98d-4 [facility] 20:28:00 20:28:00 r ve Heart 2m4-529m-p l Care PA x56-b827j5 [facility] nn 2x334f 2013-10-05 2013-10-05 Unknown nullFlavo Comprehensi 032c d99e-6 [facility] 20:28:00 20:28:00 r ve Heart 4g5-96qs-e l Care PA fa1-4zo569 [facility] nn 008a01 2013-10-05 2013-10-05 Unknown nullFlavo Comprehensi 11dd f136-0 [facility] 20:28:00 20:28:00 r ve Heart q75-385q-r l Care PA 7dd-4ee56a [facility] nn a2ff79 2013-10-05 2013-10-05 Unknown nullFlavo Comprehensi 0f8b bbd1-6 [facility] 20:28:00 20:28:00 r ve Heart 37d-4f44-9 l Care PA s56-5s23f7 [facility] nn e60dfe 2013-10-05 2013-10-05 Unknown nullFlavo Comprehensi c3a1 e75c-1 [facility] 20:28:00 20:28:00 r ve Heart 891-4492-a l Care PA beb-451d0d [facility] nn f8771k 2013-10-05 2013-10-05 Unknown nullFlavo Comprehensi f10e ff98-8 [facility] 20:28:00 20:28:00 r ve Heart 779-4ad6-b l Care PA 4k9-cz3e12 [facility] nn 412a6f 2013-10-05 2013-10-05 Unknown nullFlavo Comprehensi ddc6 77c1-e [facility] 20:28:00 20:28:00 r ve Heart 6i6-9q51-1 l Care PA 918-495b33 [facility] nn 3707ce 2013-10-05 2013-10-05 Unknown nullFlavo Comprehensi 8468 9364-d [facility] 20:28:00 20:28:00 r ve Heart 0bf-47dd-a l Care PA t33-503c71 [facility] nn f36dab 2013-10-05 2013-10-05 Outpatient Comprehen Comprehensi 2 06104 [facility] 15:28:00 15:28:00 sive ve Heart alWor ks Heart Care PA Care PA 2013-10-05 2013-10-05 Outpatient Comprehen Comprehensi 2 67601 eClinic 15:28:00 15:28:00 sive ve Heart alWor ut Heart Care PA Care PA 2013-08-14 2013-08-14 Unknown nullFlavo Comprehensi fff4 4cea-4 [facility] 21:30:00 21:30:00 r ve Heart 4z4-8xk7-5 l Care PA 783-652ca4 [facility] nn 69ff99 2013-08-14 2013-08-14 Unknown nullFlavo Comprehensi 7b43 25b9-7 [facility] 21:30:00 21:30:00 r ve Heart 7f9-955u-e l Care PA 22c-6f47e3 [facility] nn adbaa3 2013-08-14 2013-08-14 Unknown nullFlavo Comprehensi fd40 431b-c [facility] 21:30:00 21:30:00 r ve Heart 20b-4ff2-8 l Care PA 47e-d1r533 [facility] nn 772b6b 2013-08-14 2013-08-14 Unknown nullFlavo Comprehensi 5611 ad6a-9 [facility] 21:30:00 21:30:00 r ve Heart e1q-1o34-y l Care PA 7o0-xx097h [facility] nn 222531 0258-12-02 2013-08-14 Unknown nullFlavo Comprehensi d3d2 ab12-9 [facility] 21:30:00 21:30:00 r ve Heart 697-4b23-b l Care PA m5s-n4e0y2 [facility] nn 38df80 2013-08-14 2013-08-14 Unknown nullFlavo Comprehensi ee22 58ff-b [facility] 21:30:00 21:30:00 r ve Heart 76e-4961-8 l Care PA 88b-b15720 [facility] nn 82b9b8 2013-08-14 2013-08-14 Unknown nullFlavo Comprehensi 9c18 a129-9 [facility] 21:30:00 21:30:00 r ve Heart 0ad-49da-9 l Care PA aa2-a112f4 [facility] nn b266ee 2013-08-14 2013-08-14 Unknown nullFlavo Comprehensi 78dc 3833-a [facility] 21:30:00 21:30:00 r ve Heart v32-3860-2 l Care PA i2z-l99mq1 [facility] nn ga4683 2013-08-14 2013-08-14 Unknown nullFlavo Comprehensi 89d5 af70-d [facility] 21:30:00 21:30:00 r ve Heart 3o1-0513-5 l Care PA da5-d87d6c [facility] nn f10e5d 2013-08-14 2013-08-14 Unknown nullFlavo Comprehensi 4410 b766-f [facility] 21:30:00 21:30:00 r ve Heart be6-4d64-a l Care PA cc3-55be01 [facility] nn 80617b 2013-08-14 2013-08-14 Unknown nullFlavo Comprehensi 7b43 25b9-7 [facility] 21:30:00 21:30:00 r ve Heart 1k7-133p-s l Care PA 22c-6f47e3 [facility] nn adbaa3 2013-08-14 2013-08-14 Unknown nullFlavo Comprehensi fd40 431b-c [facility] 21:30:00 21:30:00 r ve Heart 20b-4ff2-8 l Care PA 47e-f4c104 [facility] nn 772b6b 2013-08-14 2013-08-14 Unknown nullFlavo Comprehensi fff4 4cea-4 Mem[facility] 21:30:00 21:30:00 r ve Heart 2f9-7wd2-3 l Care PA 783-652ca4 [facility] nn 69ff99 2013-08-14 2013-08-14 Unknown nullFlavo Comprehensi 5611 ad6a-9 [facility] 21:30:00 21:30:00 r ve Heart k0w-0n33-p l Care PA 2h5-wc607h [facility] nn 564609 7392-12-02 2013-08-14 Unknown nullFlavo Comprehensi 4410 b766-f [facility] 21:30:00 21:30:00 r ve Heart be6-4d64-a l Care PA cc3-55be01 [facility] nn 30425a 2013-08-14 2013-08-14 Unknown nullFlavo Comprehensi 78dc 3833-a [facility] 21:30:00 21:30:00 r ve Heart r05-4744-6 l Care PA g9t-l04ys9 [facility] nn ju2938 2013-08-14 2013-08-14 Unknown nullFlavo Comprehensi 89d5 af70-d [facility] 21:30:00 21:30:00 r ve Heart 3e5-0691-2 l Care PA da5-d87d6c [facility] nn f10e5d 2013-08-14 2013-08-14 Unknown nullFlavo Comprehensi d3d2 ab12-9 [facility] 21:30:00 21:30:00 r ve Heart 697-4b23-b l Care PA d6d-e0f4g1 [facility] nn 38df80 2013-08-14 2013-08-14 Unknown nullFlavo Comprehensi ee22 58ff-b [facility] 21:30:00 21:30:00 r ve Heart 76e-4961-8 l Care PA 88b-l58774 [facility] nn 82b9b8 2013-08-14 2013-08-14 Unknown nullFlavo Comprehensi 9c18 a129-9 [facility] 21:30:00 21:30:00 r ve Heart 0ad-49da-9 l Care PA aa2-a112f4 [facility] nn b266ee 2013-08-14 2013-08-14 Unknown nullFlavo Comprehensi 7b43 25b9-7 [facility] 21:30:00 21:30:00 r ve Heart 8o4-532k-b l Care PA 22c-6f47e3 [facility] nn adbaa3 2013-08-14 2013-08-14 Unknown nullFlavo Comprehensi fd40 431b-c [facility] 21:30:00 21:30:00 r ve Heart 20b-4ff2-8 l Care PA 47e-l6a174 [facility] nn 772b6b 2013-08-14 2013-08-14 Unknown nullFlavo Comprehensi fff4 4cea-4 [facility] 21:30:00 21:30:00 r ve Heart 6n1-0yp6-1 l Care PA 783-652ca4 [facility] nn 69ff99 2013-08-14 2013-08-14 Unknown nullFlavo Comprehensi 5611 ad6a-9 [facility] 21:30:00 21:30:00 r ve Heart p6d-1b62-s l Care PA 6j4-qm898w [facility] nn 470818 2074-12-02 2013-08-14 Unknown nullFlavo Comprehensi 4410 b766-f [facility] 21:30:00 21:30:00 r ve Heart be6-4d64-a l Care PA cc3-55be01 [facility] nn 07158g 2013-08-14 2013-08-14 Unknown nullFlavo Comprehensi 78dc 3833-a [facility] 21:30:00 21:30:00 r ve Heart o76-7951-3 l Care PA f6d-j67el8 [facility] nn bk4845 2013-08-14 2013-08-14 Unknown nullFlavo Comprehensi 89d5 af70-d [facility] 21:30:00 21:30:00 [facility] 6a8-4058-6 l Care PA da5-d87d6c Haylee nn f10e5d 2013-08-14 2013-08-14 Unknown nullFlavo Comprehensi d3d2 ab12-9 [facility] 21:30:00 21:30:00 [facility] 697-4b23-b l Care PA o1k-l8w5p9 Haylee nn 38df80 2013-08-14 2013-08-14 Unknown nullFlavo Comprehensi ee22 58ff-b [facility] 21:30:00 21:30:00 [facility] 76e-4961-8 l Care PA [id number]-c72561 Haylee nn 82b9b8 2013-08-14 2013-08-14 Unknown nullFlavo Comprehensi 9c18 a129-9 [facility] 21:30:00 21:30:00 [facility] 0ad-49da-9 l Care PA [id number]-a112f4 Haylee nn b266ee 2013-08-14 2013-08-14 Unknown nullFlavo Comprehensi 5e74 4aa9-7 [facility] 20:30:00 20:30:00 [facility] 572-41f1-a l Care PA [id number] Haylee nn bddfed 2013-08-14 2013-08-14 Unknown nullFlavo Comprehensi b57c e4b2-4 [facility] 20:30:00 20:30:00 [facility] 233-4e41-b l Care PA [id number]-k763s9 Haylee nn 8c428k 2013-08-14 2013-08-14 Unknown nullFlavo Comprehensi ba75 cf0b-6 [facility] 20:30:00 20:30:00 [facility] 0bb-4774-a l Care PA 91f-317ab9 Haylee nn 789b00 2013-08-14 2013-08-14 Unknown nullFlavo Comprehensi dbed f8b3-0 [facility]oria 20:30:00 20:30:00 [facility] fb4-4502-9 l Care PA [id number] Haylee nn a4e9ad 2013-08-14 2013-08-14 Unknown nullFlavo Comprehensi 91c3 52ba-e [facility] 20:30:00 20:30:00 [facility] Heart 98c-4fd5-8 l Care PA 9ff-0r6288 Haylee nn 8r2953 2013-08-14 2013-08-14 Unknown nullFlavo Comprehensi 335c e390-3 [facility] 20:30:00 20:30:00 [facility] 6h9-8t67-3 l Care PA 8r0-q8u88w Haylee nn 03p429 2013-08-14 2013-08-14 Unknown nullFlavo Comprehensi 9e1b bcc0-4 [facility]oria 20:30:00 20:30:00 [facility] Heart bbd-4857-8 l Care PA 625-[id number] Haylee nn 7j551d 2013-08-14 2013-08-14 Unknown nullFlavo Comprehensi 2d62 2b28-7 [facility] 20:30:00 20:30:00 [facility] ve Heart 280-4638-8 l Care PA [id number] Haylee nn ffbbcf 2013-08-14 2013-08-14 Unknown nullFlavo Comprehensi 6e2f bb15-1 [facility] 20:30:00 20:30:00 [facility] ve Heart 632-4641-9 l Care PA q88-2gbe0p Haylee nn 42e956 2013-08-14 2013-08-14 Unknown nullFlavo Comprehensi 899a 8f34-7 [facility]oria 20:30:00 20:30:00 [facility] ve Heart 7a7-0u94-3 l Care PA [id number] Haylee nn o41717 2013-08-14 2013-08-14 Unknown nullFlavo Comprehensi c5d2 ca38-3 [facility]oria 20:30:00 20:30:00 [facility] ve Heart 5e7-07g9-5 l Care PA 276-cf1cc2 Haylee nn 3b9c4b 2013-08-14 2013-08-14 Unknown nullFlavo Comprehensi 8ea0 9d02-f [facility] 20:30:00 20:30:00 [facility] ve Heart cef-4b9a-a l Care PA [id number] Haylee nn 390cf9 2013-08-14 2013-08-14 Unknown nullFlavo Comprehensi fcb7 881b-7 [facility] 20:30:00 20:30:00 r ve Heart 32e-458c-8 l Care PA [id number]-28z808 [facility] nn adad70 2013-08-14 2013-08-14 Unknown nullFlavo Comprehensi bffa 49e9-e [facility]oria 20:30:00 20:30:00 [facility] ve Heart 3q8-18m1-3 l Care PA de7-a4ff0e [facility] nn 3e5a36 2013-08-14 2013-08-14 Unknown nullFlavo Comprehensi b2fa a92e-4 [facility]oria 20:30:00 20:30:00 [facility] ve Heart 0db-4167-9 l Care PA [id number]-37w377 [facility] nn 12855j 2013-08-14 2013-08-14 Unknown nullFlavo Comprehensi 9239 e120-d [facility]oria 20:30:00 20:30:00 [facility] ve Heart 3bd-4aa6-9 l Care PA [id number]-yn995u [facility] nn 3441b3 2013-08-14 2013-08-14 Unknown nullFlavo Comprehensi 9c33 e030-6 [facility]oria 20:30:00 20:30:00 [facility] ve Heart 2r4-4xpy-w l Care PA d90-12n5i4 [facility] nn b5a6a1 2013-08-14 2013-08-14 Unknown nullFlavo Comprehensi f39f efaa-5 [facility]oria 20:30:00 20:30:00 [facility] ve Heart 3p3-15da-w l Care PA 4h7-4ns9z3 [facility] nn e851c7 2013-08-14 2013-08-14 Unknown nullFlavo Comprehensi 6e2f bb15-1 [facility]oria 20:30:00 20:30:00 [facility] ve Heart 632-4641-9 l Care PA p59-7vvh6d [facility] nn 40g835 2013-08-14 2013-08-14 Unknown nullFlavo Comprehensi dbed f8b3-0 [facility]oria 20:30:00 20:30:00 [facility] ve Heart fb4-4502-9 l Care PA [id number] [facility] nn a4e9ad 2013-08-14 2013-08-14 Unknown nullFlavo Comprehensi 5e74 4aa9-7 [facility]oria 20:30:00 20:30:00 [facility] ve Heart 572-41f1-a l Care PA 7g7-37952x [facility] nn bddfed 2013-08-14 2013-08-14 Unknown nullFlavo Comprehensi b57c e4b2-4 [facility]oria 20:30:00 20:30:00 [facility] ve Heart 233-4e41-b l Care PA j70-l231d2 [facility] nn 0i976n 2013-08-14 2013-08-14 Unknown nullFlavo Comprehensi 335c e390-3 [facility]oria 20:30:00 20:30:00 [facility] ve Heart 1k3-9d90-0 l Care PA 5g1-c6j32x [facility] nn 39w420 2013-08-14 2013-08-14 Unknown nullFlavo Comprehensi 2d62 2b28-7 [facility]oria 20:30:00 20:30:00 [facility] ve Heart 280-4638-8 l Care PA [id number] [facility] nn ffbbcf 2013-08-14 2013-08-14 Unknown nullFlavo Comprehensi bffa 49e9-e [facility]oria 20:30:00 20:30:00 [facility] ve Heart 2j7-33s1-6 l Care PA de7-a4ff0e [facility] nn 3e5a36 2013-08-14 2013-08-14 Unknown nullFlavo Comprehensi 91c3 52ba-e [facility] 20:30:00 20:30:00 r ve Heart 98c-4fd5-8 l Care PA 9ff-3d7112 [facility] nn 7j1009 2013-08-14 2013-08-14 Unknown nullFlavo Comprehensi 9e1b bcc0-4 [facility] 20:30:00 20:30:00 r ve Heart bbd-4857-8 l Care PA 625-g69203 [facility] nn 8z392h 2013-08-14 2013-08-14 Unknown nullFlavo Comprehensi ba75 cf0b-6 [facility] 20:30:00 20:30:00 [facility] ve Heart 0bb-4774-a l Care PA 91f-317ab9 Haylee nn 789b00 2013-08-14 2013-08-14 Unknown nullFlavo Comprehensi 8ea0 9d02-f [facility] 20:30:00 20:30:00 [facility] cef-4b9a-a l Care PA 9z1-6055w4 Haylee nn 390cf9 2013-08-14 2013-08-14 Unknown nullFlavo Comprehensi fcb7 881b-7 [facility] 20:30:00 20:30:00 [facility] ve [facility] 32e-458c-8 l Care PA h6h-46q706 Haylee nn adad70 2013-08-14 2013-08-14 Unknown nullFlavo Comprehensi c5d2 ca38-3 [facility]oria 20:30:00 20:30:00 [facility] ve [facility] 2q7-94e4-3 l Care PA 276-cf1cc2 Haylee nn 3b9c4b 2013-08-14 2013-08-14 Unknown nullFlavo Comprehensi 9239 e120-d [facility] 20:30:00 20:30:00 [facility] ve Heart 3bd-4aa6-9 l Care PA 4z8-qi292k Haylee nn 3441b3 2013-08-14 2013-08-14 Unknown nullFlavo Comprehensi 899a 8f34-7 [facility] 20:30:00 20:30:00 [facility] ve [facility] 6p6-4j60-6 l Care PA 1e2-5c6734 Haylee nn p60452 2013-08-14 2013-08-14 Unknown nullFlavo Comprehensi b2fa a92e-4 [facility] 20:30:00 20:30:00 [facility] ve Heart 0db-4167-9 l Care PA e3g-60j561 Haylee nn 81324k 2013-08-14 2013-08-14 Unknown nullFlavo Comprehensi 9c33 e030-6 [facility] 20:30:00 20:30:00 [facility] ve [facility] 2l2-4kcv-m l Care PA g02-57p4i4 Haylee nn b5a6a1 2013-08-14 2013-08-14 Unknown nullFlavo Comprehensi f39f efaa-5 [facility] 20:30:00 20:30:00 [facility] ve [facility] 7q2-97da-b l Care PA 2k4-0jt1v3 Haylee nn e851c7 2013-08-14 2013-08-14 Unknown nullFlavo Comprehensi 6e2f bb15-1 [facility] 20:30:00 20:30:00 r ve Heart 632-4641-9 l Care PA v24-9lgb7d Haylee nn 45k475 2013-08-14 2013-08-14 Unknown nullFlavo Comprehensi dbed f8b3-0 [facility] 20:30:00 20:30:00 [facility] ve [facility] fb4-4502-9 l Care PA 036-193d94 Haylee nn a4e9ad 2013-08-14 2013-08-14 Unknown nullFlavo Comprehensi 5e74 4aa9-7 [facility] 20:30:00 20:30:00 [facility] ve Heart 572-41f1-a l Care PA 4x6-73565j Haylee nn bddfed 2013-08-14 2013-08-14 Unknown nullFlavo Comprehensi b57c e4b2-4 [facility] 20:30:00 20:30:00 [facility] ve [facility] 233-4e41-b l Care PA z50-a107b8 Haylee nn 0p074l 2013-08-14 2013-08-14 Unknown nullFlavo Comprehensi 335c e390-3 [facility] 20:30:00 20:30:00 [facility] ve [facility] 5v3-1y33-4 l Care PA 9u1-m9i24v Haylee nn 59p042 2013-08-14 2013-08-14 Unknown nullFlavo Comprehensi 2d62 2b28-7 [facility] 20:30:00 20:30:00 r ve Heart 280-4638-8 l Care PA 628-02l200 Haylee nn ffbbcf 2013-08-14 2013-08-14 Unknown nullFlavo Comprehensi bffa 49e9-e [facility] 20:30:00 20:30:00 [facility] ve [facility] 6s7-85m4-4 l Care PA de7-a4ff0e Haylee nn 3e5a36 2013-08-14 2013-08-14 Unknown nullFlavo Comprehensi 91c3 52ba-e [facility] 20:30:00 20:30:00 [facility] ve [facility] 98c-4fd5-8 l Care PA 9ff-4k3368 Haylee nn 7b4553 2013-08-14 2013-08-14 Unknown nullFlavo Comprehensi 9e1b bcc0-4 [facility] 20:30:00 20:30:00 [facility] ve [facility] bbd-4857-8 l Care PA 625-v44813 Haylee nn 4s982d 2013-08-14 2013-08-14 Unknown nullFlavo Comprehensi ba75 cf0b-6 [facility] 20:30:00 20:30:00 [facility] ve [facility] 0bb-4774-a l Care PA 91f-317ab9 Haylee nn 789b00 2013-08-14 2013-08-14 Unknown nullFlavo Comprehensi 8ea0 9d02-f [facility] 20:30:00 20:30:00 [facility] ve [facility] cef-4b9a-a l Care PA 1k6-8500g2 Haylee nn 390cf9 2013-08-14 2013-08-14 Unknown nullFlavo Comprehensi fcb7 881b-7 [facility] 20:30:00 20:30:00 [facility] ve Heart 32e-458c-8 l Care PA y5c-30x192 Haylee nn adad70 2013-08-14 2013-08-14 Unknown nullFlavo Comprehensi c5d2 ca38-3 [facility] 20:30:00 20:30:00 [facility] ve Heart 4z7-20g6-3 l Care PA 276-cf1cc2 Haylee nn 3b9c4b 2013-08-14 2013-08-14 Unknown nullFlavo Comprehensi 9239 e120-d [facility] 20:30:00 20:30:00 [facility] ve Heart 3bd-4aa6-9 l Care PA 7d7-ai527i Haylee nn 3441b3 2013-08-14 2013-08-14 Unknown nullFlavo Comprehensi 899a 8f34-7 [facility] 20:30:00 20:30:00 [facility] ve Heart 1s9-6o58-0 l Care PA 1m7-7x9900 Haylee nn s16244 2013-08-14 2013-08-14 Unknown nullFlavo Comprehensi b2fa a92e-4 [facility] 20:30:00 20:30:00 [facility] ve Heart 0db-4167-9 l Care PA m6y-37r777 Haylee nn 27841x 2013-08-14 2013-08-14 Unknown nullFlavo Comprehensi 9c33 e030-6 [facility] 20:30:00 20:30:00 r ve Heart 4b6-7oto-x l Care PA c30-72i7d0 Haylee nn b5a6a1 2013-08-14 2013-08-14 Unknown nullFlavo Comprehensi f39f efaa-5 [facility] 20:30:00 20:30:00 [facility] ve Heart 4d4-30qh-h l Care PA 7j7-5ny1a1 Haylee nn e851c7 2013-08-14 2013-08-14 Outpatient Comprehen Comprehensi 2 53868 [facility] 15:30[facility]00 [facility] 2013-08-14 2013-08-14 Outpatient Comprehen Comprehensi 2 24351 [facility] 15:30[facility]00 [facility] 2013-07-31 2013-07-31 Unknown nullFlavo Comprehensi 0a81 9c66-1 [facility] 23:23:00 23:23:00 r ve Heart 3df-472d-b l Care PA ff2-60ff98 Haylee nn 1322b7 2013-07-31 2013-07-31 Unknown nullFlavo Comprehensi a47f 00a8-6 [facility] 23:23:00 23:23:00 [facility] ve Heart u48-1h90-p l Care PA v43-7cy4j6 Haylee nn 916f9b 2013-07-31 2013-07-31 Unknown nullFlavo Comprehensi 930f b2f6-d [facility] 23:23:00 23:23:00 r ve Heart 336-4594-9 l Care PA 907-fbce0b Haylee nn 8a46b7 2013-07-31 2013-07-31 Unknown nullFlavo Comprehensi e9ac 6aff-9 [facility] 23:23:00 23:23:00 r ve Heart 8h7-1446-3 l Care PA gayatri-7fbc57 Haylee nn aa8a44 2013-07-31 2013-07-31 Unknown nullFlavo Comprehensi 2c48 2b32-5 [facility] 23:23:00 23:23:00 [facility] ve Heart 0t6-49z5-5 l Care PA 8fc-697d1d Haylee nn a6cac7 2013-07-31 2013-07-31 Unknown nullFlavo Comprehensi f48e f3db-5 [facility] 23:23:00 23:23:00 r ve Heart 0m6-18g9-b l Care PA 17f-7z3791 Haylee nn fd50f7 2013-07-31 2013-07-31 Unknown nullFlavo Comprehensi d08e a12c-5 [facility] 23:23:00 23:23:00 r ve Heart 87e-4b1a-a l Care PA 46d-9e84af Haylee nn rc3493 2013-07-31 2013-07-31 Unknown nullFlavo Comprehensi 94d0 5a69-2 [facility] 23:23:00 23:23:00 r ve Heart z6e-858f-2 l Care PA 667-98a36e Haylee nn a7bbca 2013-07-31 2013-07-31 Unknown nullFlavo Comprehensi 8b48 600f-4 [facility] 23:23:00 23:23:00 r ve Heart j71-575u-m l Care PA 00b-e55ede Haylee nn 70600t 2013-07-31 2013-07-31 Unknown nullFlavo Comprehensi 14f7 80f5-f [facility] 23:23:00 23:23:00 r ve Heart 15c-4b89-b l Care PA 35d-94s861 Haylee nn 849012 5303-11-18 2013-07-31 Unknown nullFlavo Comprehensi 06da c6f1-8 [facility]oria 23:23:00 23:23:00 r ve Heart t3l-3vs5-l l Care PA 165-gm303a Haylee nn 175508 1052-11-18 2013-07-31 Unknown nullFlavo Comprehensi 0a81 9c66-1 [facility] 23:23:00 23:23:00 [facility] ve Heart 3df-472d-b l Care PA ff2-60ff98 Haylee nn 1322b7 2013-07-31 2013-07-31 Unknown nullFlavo Comprehensi 930f b2f6-d [facility] 23:23:00 23:23:00 r ve Heart 336-4594-9 l Care PA 907-fbce0b Haylee nn 8a46b7 2013-07-31 2013-07-31 Unknown nullFlavo Comprehensi e9ac 6aff-9 [facility] 23:23:00 23:23:00 r ve Heart 8f4-5846-4 l Care PA gayatri-7fbc57 Haylee nn aa8a44 2013-07-31 2013-07-31 Unknown nullFlavo Comprehensi a47f 00a8-6 [facility] 23:23:00 23:23:00 r ve Heart b00-2j19-j l Care PA o73-8fr7l2 Haylee nn 916f9b 2013-07-31 2013-07-31 Unknown nullFlavo Comprehensi 2c48 2b32-5 [facility] 23:23:00 23:23:00 r ve Heart 9c1-41s9-5 l Care PA 8fc-697d1d Haylee nn a6cac7 2013-07-31 2013-07-31 Unknown nullFlavo Comprehensi 06da c6f1-8 [facility] 23:23:00 23:23:00 r ve Heart o0y-5nl7-r l Care PA 165-so565h Haylee nn 324684 7863-11-18 2013-07-31 Unknown nullFlavo Comprehensi 8b48 600f-4 [facility] 23:23:00 23:23:00 r ve Heart d02-857k-t l Care PA 00b-e55ede Haylee nn 30510x 2013-07-31 2013-07-31 Unknown nullFlavo Comprehensi 14f7 80f5-f [facility] 23:23:00 23:23:00 r ve Heart 15c-4b89-b l Care PA 35d-80s840 Haylee nn 048587 0382-11-18 2013-07-31 Unknown nullFlavo Comprehensi f48e f3db-5 [facility] 23:23:00 23:23:00 r ve Heart 5u1-72d4-e l Care PA 17f-4d0714 Haylee nn fd50f7 2013-07-31 2013-07-31 Unknown nullFlavo Comprehensi d08e a12c-5 [facility] 23:23:00 23:23:00 r ve Heart 87e-4b1a-a l Care PA 46d-9e84af Haylee nn jw4339 2013-07-31 2013-07-31 Unknown nullFlavo Comprehensi 94d0 5a69-2 [facility] 23:23:00 23:23:00 r ve Heart n3g-529l-4 l Care PA 667-98a36e Haylee nn a7bbca 2013-07-31 2013-07-31 Unknown nullFlavo Comprehensi 0a81 9c66-1 [facility] 23:23:00 23:23:00 r ve Heart 3df-472d-b l Care PA ff2-60ff98 Haylee nn 1322b7 2013-07-31 2013-07-31 Unknown nullFlavo Comprehensi 930f b2f6-d Memoria 23:23:00 23:23:00 r ve Heart 336-4594-9 l Care PA 907-fbce0b Haylee nn 8a46b7 2013-07-31 2013-07-31 Unknown nullFlavo Comprehensi e9ac 6aff-9 [facility]oria 23:23:00 23:23:00 r ve Heart 4s6-2197-6 l Care PA gayatri-7fbc57 Haylee nn aa8a44 2013-07-31 2013-07-31 Unknown nullFlavo Comprehensi a47f 00a8-6 [facility]oria 23:23:00 23:23:00 r ve Heart w52-1q14-m l Care PA n54-8jl9a4 Haylee nn 916f9b 2013-07-31 2013-07-31 Unknown nullFlavo Comprehensi 2c48 2b32-5 [facility] 23:23:00 23:23:00 r ve Heart 2v4-20n3-3 l Care PA 8fc-697d1d Haylee nn a6cac7 2013-07-31 2013-07-31 Unknown nullFlavo Comprehensi 06da c6f1-8 Memoria 23:23:00 23:23:00 r ve Heart d9z-2rp4-h l Care PA 165-mo876i Haylee nn 905704 3376-11-18 2013-07-31 Unknown nullFlavo Comprehensi 8b48 600f-4 Memoria 23:23:00 23:23:00 r ve Heart q34-404u-n l Care PA 00b-e55ede [facility] nn 20546b 2013-07-31 2013-07-31 Unknown nullFlavo Comprehensi 14f7 80f5-f Memoria 23:23:00 23:23:00 r ve Heart 15c-4b89-b l Care PA 35d-81y593 [facility] nn 096735 7568-11-18 2013-07-31 Unknown nullFlavo Comprehensi f48e f3db-5 Memoria 23:23:00 23:23:00 r ve Heart 7a3-43e0-y l Care PA 17f-5k4455 [facility] nn fd50f7 2013-07-31 2013-07-31 Unknown nullFlavo Comprehensi d08e a12c-5 Memoria 23:23:00 23:23:00 r ve Heart 87e-4b1a-a l Care PA 46d-9e84af [facility] nn lr9982 2013-07-31 2013-07-31 Unknown nullFlavo Comprehensi 94d0 5a69-2 Memoria 23:23:00 23:23:00 r ve Heart b0z-948d-5 l Care PA 667-98a36e [facility] nn a7bbca 2013-07-31 2013-07-31 Unknown nullFlavo Comprehensi 8cd9 14cf-4 Memoria 22:23:00 22:23:00 r ve Heart 9ed-4d37-a l Care PA 407-4e6aea [facility] nn 2y9196 2013-07-31 2013-07-31 Unknown nullFlavo Comprehensi 0449 b7b9-e Memoria 22:23:00 22:23:00 r ve Heart 835-47e4-b l Care PA 410-g76354 [facility] nn 281584 4452-11-18 2013-07-31 Unknown nullFlavo Comprehensi 09ca 54cd-8 Memoria 22:23:00 22:23:00 r ve Heart ce1-4b9b-a l Care PA v1c-48754c Haylee nn 7bdfd5 2013-07-31 2013-07-31 Unknown nullFlavo Comprehensi 4a2c 658a-6 Memoria 22:23:00 22:23:00 r ve Heart 20a-464f-b l Care PA 831-bd4df9 Haylee nn cacb12 2013-07-31 2013-07-31 Unknown nullFlavo Comprehensi 3b65 5974-c Memoria 22:23:00 22:23:00 r ve Heart 19f-4a17-9 l Care PA 7o2-h32c9h Haylee nn 99eab1 2013-07-31 2013-07-31 Unknown nullFlavo Comprehensi 01da 738b-a Memoria 22:23:00 22:23:00 r ve Heart 4ed-40cf-9 l Care PA 29f-237266 Haylee nn 9ec3c4 2013-07-31 2013-07-31 Unknown nullFlavo Comprehensi e6b8 9fef-2 Memoria 22:23:00 22:23:00 r ve Heart 2b1-779a-d l Care PA 6f1-0578hn Haylee nn 521334 3379-11-18 2013-07-31 Unknown nullFlavo Comprehensi 86cc 1771-1 Memoria 22:23:00 22:23:00 r ve Heart de7-4f34-a l Care PA 242-23196i Haylee nn 1eca41 2013-07-31 2013-07-31 Unknown nullFlavo Comprehensi bc37 ccc5-c Memoria 22:23:00 22:23:00 r ve Heart 5y7-2629-6 l Care PA 782-3ff4a4 Haylee nn 513b25 2013-07-31 2013-07-31 Unknown nullFlavo Comprehensi f487 24d6-f Memoria 22:23:00 22:23:00 r ve Heart 7eb-4692-9 l Care PA a98-n060y5 Haylee nn 94a83d 2013-07-31 2013-07-31 Unknown nullFlavo Comprehensi 04d7 2572-a Memoria 22:23:00 22:23:00 r ve Heart 96f-4db5-9 l Care PA 22b-8f0b26 Haylee nn 920934 0725-11-18 2013-07-31 Unknown nullFlavo Comprehensi 0e6f d61e-2 [facility]oria 22:23:00 22:23:00 r ve Heart h70-098n-3 l Care PA 5cd-1fc3c3 Haylee nn 4b2f75 2013-07-31 2013-07-31 Unknown nullFlavo Comprehensi 9e57 c1dd-f Memoria 22:23:00 22:23:00 r ve Heart m80-9ww2-s l Care PA 773-4798d8 Haylee nn 771439 4771-11-18 2013-07-31 Unknown nullFlavo Comprehensi 08b0 7107-4 Memoria 22:23:00 22:23:00 r ve Heart z10-27h4-c l Care PA eec-f754fd Haylee nn e36ad6 2013-07-31 2013-07-31 Unknown nullFlavo Comprehensi 7a77 f8ad-6 Memoria 22:23:00 22:23:00 r ve Heart 480-4c1d-9 l Care PA 0z4-e726m9 Haylee nn ad1dea 2013-07-31 2013-07-31 Unknown nullFlavo Comprehensi 8dbc afe4-9 Memoria 22:23:00 22:23:00 r ve Heart 451-44c6-b l Care PA 7g0-8c9167 Haylee nn gq1979 2013-07-31 2013-07-31 Unknown nullFlavo Comprehensi c15c 87e8-8 Memoria 22:23:00 22:23:00 r ve Heart 6f0-2trb-3 l Care PA 44d-bd03bd Haylee nn 64e79e 2013-07-31 2013-07-31 Unknown nullFlavo Comprehensi 62ae e04f-4 Memoria 22:23:00 22:23:00 r ve Heart 9g9-946a-p l Care PA 3cb-4e61b1 Haylee nn 69439q 2013-07-31 2013-07-31 Unknown nullFlavo Comprehensi bc37 ccc5-c Memoria 22:23:00 22:23:00 r ve Heart 8l3-6447-1 l Care PA 782-3ff4a4 Haylee nn 513b25 2013-07-31 2013-07-31 Unknown nullFlavo Comprehensi 4a2c 658a-6 Memoria 22:23:00 22:23:00 r ve Heart 20a-464f-b l Care PA 831-bd4df9 Haylee nn cacb12 2013-07-31 2013-07-31 Unknown nullFlavo Comprehensi 8cd9 14cf-4 Memoria 22:23:00 22:23:00 r ve Heart 9ed-4d37-a l Care PA 407-4e6aea Haylee nn 7w2720 2013-07-31 2013-07-31 Unknown nullFlavo Comprehensi 0449 b7b9-e Memoria 22:23:00 22:23:00 r ve Heart 835-47e4-b l Care PA 410-e39752 [facility] nn 727655 1920-11-18 2013-07-31 Unknown nullFlavo Comprehensi 01da 738b-a Memoria 22:23:00 22:23:00 r ve Heart 4ed-40cf-9 l Care PA 29f-616047 Haylee nn 9ec3c4 2013-07-31 2013-07-31 Unknown nullFlavo Comprehensi 86cc 1771-1 Memoria 22:23:00 22:23:00 r ve Heart de7-4f34-a l Care PA 242-00382f [facility] nn 1eca41 2013-07-31 2013-07-31 Unknown nullFlavo Comprehensi 08b0 7107-4 Memoria 22:23:00 22:23:00 r ve Heart y89-86d3-x l Care PA eec-f754fd [facility] nn e36ad6 2013-07-31 2013-07-31 Unknown nullFlavo Comprehensi 3b65 5974-c Memoria 22:23:00 22:23:00 r ve Heart 19f-4a17-9 l Care PA 2n2-u59h3l [facility] nn 99eab1 2013-07-31 2013-07-31 Unknown nullFlavo Comprehensi e6b8 9fef-2 Memoria 22:23:00 22:23:00 r ve Heart 0l8-453q-g l Care PA 6y8-1107mx [facility] nn 857392 0475-11-18 2013-07-31 Unknown nullFlavo Comprehensi 09ca 54cd-8 Memoria 22:23:00 22:23:00 r ve Heart ce1-4b9b-a l Care PA m7g-48495y [facility] nn 7bdfd5 2013-07-31 2013-07-31 Unknown nullFlavo Comprehensi 0e6f d61e-2 Memoria 22:23:00 22:23:00 r ve Heart m57-877d-1 l Care PA 5cd-1fc3c3 Haylee nn 4b2f75 2013-07-31 2013-07-31 Unknown nullFlavo Comprehensi 9e57 c1dd-f Memoria 22:23:00 22:23:00 r ve Heart k26-5cx1-h l Care PA 773-4798d8 Haylee nn 213430 3462-11-18 2013-07-31 Unknown nullFlavo Comprehensi 04d7 2572-a Memoria 22:23:00 22:23:00 r ve Heart 96f-4db5-9 l Care PA 22b-8f0b26 Haylee nn 819855 5696-11-18 2013-07-31 Unknown nullFlavo Comprehensi 8dbc afe4-9 Memoria 22:23:00 22:23:00 r ve Heart 451-44c6-b l Care PA 9e1-6l7559 Haylee nn uu5648 2013-07-31 2013-07-31 Unknown nullFlavo Comprehensi f487 24d6-f Mem[facility] 22:23:00 22:23:00 r ve Heart 7eb-4692-9 l Care PA y15-a734b8 Haylee nn 94a83d 2013-07-31 2013-07-31 Unknown nullFlavo Comprehensi 7a77 f8ad-6 [facility] 22:23:00 22:23:00 r ve Heart 480-4c1d-9 l Care PA 5z7-x482z6 Haylee nn ad1dea 2013-07-31 2013-07-31 Unknown nullFlavo Comprehensi c15c 87e8-8 Memoria 22:23:00 22:23:00 r ve Heart 2y7-9qzn-3 l Care PA 44d-bd03bd Haylee nn 64e79e 2013-07-31 2013-07-31 Unknown nullFlavo Comprehensi 62ae e04f-4 Memoria 22:23:00 22:23:00 r ve Heart 0z8-024d-e l Care PA 3cb-4e61b1 Haylee nn 58133q 2013-07-31 2013-07-31 Unknown nullFlavo Comprehensi bc37 ccc5-c Memoria 22:23:00 22:23:00 r ve Heart 6d4-2095-9 l Care PA 782-3ff4a4 Haylee nn 513b25 2013-07-31 2013-07-31 Unknown nullFlavo Comprehensi 4a2c 658a-6 [facility]oria 22:23:00 22:23:00 r ve Heart 20a-464f-b l Care PA 831-bd4df9 Haylee nn cacb12 2013-07-31 2013-07-31 Unknown nullFlavo Comprehensi 8cd9 14cf-4 [facility] 22:23:00 22:23:00 r ve Heart 9ed-4d37-a l Care PA 407-4e6aea Haylee nn 7z9359 2013-07-31 2013-07-31 Unknown nullFlavo Comprehensi 0449 b7b9-e Memoria 22:23:00 22:23:00 r ve Heart 835-47e4-b l Care PA 410-r45254 Haylee nn 246568 8956-11-18 2013-07-31 Unknown nullFlavo Comprehensi 01da 738b-a Memoria 22:23:00 22:23:00 r ve Heart 4ed-40cf-9 l Care PA 29f-074704 Haylee nn 9ec3c4 2013-07-31 2013-07-31 Unknown nullFlavo Comprehensi 86cc 1771-1 Memoria 22:23:00 22:23:00 r ve Heart de7-4f34-a l Care PA 242-55774u Haylee nn 1eca41 2013-07-31 2013-07-31 Unknown nullFlavo Comprehensi 08b0 7107-4 Memoria 22:23:00 22:23:00 r ve Heart g80-84g2-i l Care PA eec-f754fd Haylee nn e36ad6 2013-07-31 2013-07-31 Unknown nullFlavo Comprehensi 3b65 5974-c Memoria 22:23:00 22:23:00 r ve Heart 19f-4a17-9 l Care PA 2t4-l98b4p Haylee nn 99eab1 2013-07-31 2013-07-31 Unknown nullFlavo Comprehensi e6b8 9fef-2 Memoria 22:23:00 22:23:00 r ve Heart 5t3-688t-w l Care PA 9o1-9677zn Haylee nn 812867 4317-11-18 2013-07-31 Unknown nullFlavo Comprehensi 09ca 54cd-8 Memoria 22:23:00 22:23:00 r ve Heart ce1-4b9b-a l Care PA o8k-31662y Haylee nn 7bdfd5 2013-07-31 2013-07-31 Unknown nullFlavo Comprehensi 0e6f d61e-2 Memoria 22:23:00 22:23:00 r ve Heart l37-363m-7 l Care PA 5cd-1fc3c3 Haylee nn 4b2f75 2013-07-31 2013-07-31 Unknown nullFlavo Comprehensi 9e57 c1dd-f Mem[facility] 22:23:00 22:23:00 r ve Heart x59-2kr3-t l Care PA 773-4798d8 [facility] nn 493173 8022-11-18 2013-07-31 Unknown nullFlavo Comprehensi 04d7 2572-a Memoria 22:23:00 22:23:00 r ve Heart 96f-4db5-9 l Care PA 22b-8f0b26 [facility] nn 310254 0590-11-18 2013-07-31 Unknown nullFlavo Comprehensi 8dbc afe4-9 Memoria 22:23:00 22:23:00 r ve Heart 451-44c6-b l Care PA 4e0-4u4870 [facility] nn vd6810 2013-07-31 2013-07-31 Unknown nullFlavo Comprehensi f487 24d6-f Mem[facility] 22:23:00 22:23:00 r ve Heart 7eb-4692-9 l Care PA y56-a154h5 [facility] nn 94a83d 2013-07-31 2013-07-31 Unknown nullFlavo Comprehensi 7a77 f8ad-6 Mem[facility] 22:23:00 22:23:00 r ve Heart 480-4c1d-9 l Care PA 9j0-j712q8 Haylee nn ad1dea 2013-07-31 2013-07-31 Unknown nullFlavo Comprehensi c15c 87e8-8 Memoria 22:23:00 22:23:00 r ve Heart 1w2-3njc-6 l Care PA 44d-bd03bd Haylee nn 64e79e 2013-07-31 2013-07-31 Unknown nullFlavo Comprehensi 62ae e04f-4 Memoria 22:23:00 22:23:00 r ve Heart 1z9-469s-b l Care PA 3cb-4e61b1 Haylee nn 21643s 2013-07-31 2013-07-31 Outpatient Comprehen Comprehensi 2 80456 [facility]inic 17:23:00 17:23:00 sive ve [facility] ut [facility] PA Care PA 2013-07-31 2013-07-31 Outpatient Comprehen Comprehensi 2 50575 [facility]Clinic 17:23:00 17:23:00 sive ve [facility] Heart [facility] PA Care PA 2013-06-23 2013-06-23 Unknown nullFlavo Comprehensi 801f bf4d-7 Memoria 19:36:00 19:36:00 r ve Heart 863-4c2d-8 l Care PA 103-86j523 Haylee nn 179754 7166-10-11 2013-06-23 Unknown nullFlavo Comprehensi ef62 2637-0 [facility]oria 19:36:00 19:36:00 r ve Heart af5-4c02-9 l Care PA i18-ib71b9 Haylee nn 98cf19 2013-06-23 2013-06-23 Unknown nullFlavo Comprehensi 44ed 0b92-6 Memoria 19:36:00 19:36:00 r ve Heart 94b-49d7-a l Care PA 450-edf5fc Haylee nn 720e5e 2013-06-23 2013-06-23 Unknown nullFlavo Comprehensi d7cd 72b9-2 Memoria 19:36:00 19:36:00 r ve Heart 2ff-4b86-9 l Care PA fce-e7d1d0 Haylee nn s8651a 2013-06-23 2013-06-23 Unknown nullFlavo Comprehensi f975 683b-9 Memoria 19:36:00 19:36:00 r ve Heart 7ae-4349-9 l Care PA 645-46w484 [facility] nn 19dd33 2013-06-23 2013-06-23 Unknown nullFlavo Comprehensi 3622 65fa-9 Memoria 19:36:00 19:36:00 r ve Heart k83-32e5-o l Care PA 605-e64e43 Haylee nn d24fff 2013-06-23 2013-06-23 Unknown nullFlavo Comprehensi 9f23 3707-e Memoria 19:36:00 19:36:00 r ve Heart 75e-40e2-9 l Care PA aef-02dc89 Haylee nn 7c8c5c 2013-06-23 2013-06-23 Unknown nullFlavo Comprehensi baaa 0f6c-7 Memoria 19:36:00 19:36:00 r ve Heart 350-4bd4-9 l Care PA i44-l33ow3 Haylee nn 085384 3152-10-11 2013-06-23 Unknown nullFlavo Comprehensi 7f19 7246-d Memoria 19:36:00 19:36:00 r ve Heart f86-05z3-j l Care PA fe1-d54ef8 Haylee nn 6d2efb 2013-06-23 2013-06-23 Unknown nullFlavo Comprehensi 2279 5cae-4 Memoria 19:36:00 19:36:00 r ve Heart 424-4063-b l Care PA 09e-403e70 Haylee nn nk180p 2013-06-23 2013-06-23 Unknown nullFlavo Comprehensi ed11 c232-6 Memoria 19:36:00 19:36:00 r ve Heart 8k9-21j0-2 l Care PA cbb-6225af Haylee nn a6fb0f 2013-06-23 2013-06-23 Unknown nullFlavo Comprehensi 86e4 ee17-8 Memoria 19:36:00 19:36:00 r ve Heart 48f-408f-9 l Care PA w4i-4n789l Haylee nn 7z286w 2013-06-23 2013-06-23 Unknown nullFlavo Comprehensi 801f bf4d-7 Memoria 19:36:00 19:36:00 r ve Heart 863-4c2d-8 l Care PA 103-69v684 Haylee nn 742129 8956-10-11 2013-06-23 Unknown nullFlavo Comprehensi d7cd 72b9-2 Memoria 19:36:00 19:36:00 r ve Heart 2ff-4b86-9 l Care PA fce-e7d1d0 Haylee nn u3021u 2013-06-23 2013-06-23 Unknown nullFlavo Comprehensi f975 683b-9 Memoria 19:36:00 19:36:00 r ve Heart 7ae-4349-9 l Care PA 645-23t405 Haylee nn 19dd33 2013-06-23 2013-06-23 Unknown nullFlavo Comprehensi ef62 2637-0 Memoria 19:36:00 19:36:00 r ve Heart af5-4c02-9 l Care PA f12-ie83n9 Haylee nn 98cf19 2013-06-23 2013-06-23 Unknown nullFlavo Comprehensi 44ed 0b92-6 Memoria 19:36:00 19:36:00 r ve Heart 94b-49d7-a l Care PA 450-edf5fc Haylee nn 720e5e 2013-06-23 2013-06-23 Unknown nullFlavo Comprehensi 3622 65fa-9 Memoria 19:36:00 19:36:00 r ve Heart u73-21p0-a l Care PA 605-e64e43 Haylee nn d24fff 2013-06-23 2013-06-23 Unknown nullFlavo Comprehensi 86e4 ee17-8 Memoria 19:36:00 19:36:00 r ve Heart 48f-408f-9 l Care PA l6y-9c085o Haylee nn 0t498t 2013-06-23 2013-06-23 Unknown nullFlavo Comprehensi 2279 5cae-4 Memoria 19:36:00 19:36:00 r ve Heart 424-4063-b l Care PA 09e-403e70 Haylee nn gs534o 2013-06-23 2013-06-23 Unknown nullFlavo Comprehensi ed11 c232-6 Memoria 19:36:00 19:36:00 r ve Heart 7n7-09r0-0 l Care PA cbb-6225af Haylee nn a6fb0f 2013-06-23 2013-06-23 Unknown nullFlavo Comprehensi 9f23 3707-e Memoria 19:36:00 19:36:00 r ve Heart 75e-40e2-9 l Care PA aef-02dc89 Haylee nn 7c8c5c 2013-06-23 2013-06-23 Unknown nullFlavo Comprehensi baaa 0f6c-7 Memoria 19:36:00 19:36:00 r ve Heart 350-4bd4-9 l Care PA p87-j97ji3 Haylee nn [id number] 4098-10-11 2013-06-23 Unknown nullFlavo Comprehensi 7f19 7246-d Memoria 19:36:00 19:36:00 r ve Heart g47-70f5-y l Care PA fe1-d54ef8 Haylee nn 6d2efb 2013-06-23 2013-06-23 Unknown nullFlavo Comprehensi 801f bf4d-7 Memoria 19:36:00 19:36:00 r ve Heart 863-4c2d-8 l Care PA 103-15r240 [facility] nn 334661 8872-10-11 2013-06-23 Unknown nullFlavo Comprehensi d7cd 72b9-2 Memoria 19:36:00 19:36:00 r ve Heart 2ff-4b86-9 l Care PA fce-e7d1d0 [facility] nn z9422d 2013-06-23 2013-06-23 Unknown nullFlavo Comprehensi f975 683b-9 Memoria 19:36:00 19:36:00 r ve Heart 7ae-4349-9 l Care PA 645-35d775 [facility] nn 19dd33 2013-06-23 2013-06-23 Unknown nullFlavo Comprehensi ef62 2637-0 Memoria 19:36:00 19:36:00 r ve Heart af5-4c02-9 l Care PA t67-eo12v8 [facility] nn 98cf19 2013-06-23 2013-06-23 Unknown nullFlavo Comprehensi 44ed 0b92-6 Memoria 19:36:00 19:36:00 r ve Heart 94b-49d7-a l Care PA 450-edf5fc Haylee nn 720e5e 2013-06-23 2013-06-23 Unknown nullFlavo Comprehensi 3622 65fa-9 Memoria 19:36:00 19:36:00 r ve Heart v47-66y1-v l Care PA 605-e64e43 Haylee nn d24fff 2013-06-23 2013-06-23 Unknown nullFlavo Comprehensi 86e4 ee17-8 Memoria 19:36:00 19:36:00 r ve Heart 48f-408f-9 l Care PA s9p-4x194u Haylee nn 1h307i 2013-06-23 2013-06-23 Unknown nullFlavo Comprehensi 2279 5cae-4 Memoria 19:36:00 19:36:00 r ve Heart 424-4063-b l Care PA 09e-403e70 Haylee nn fv220b 2013-06-23 2013-06-23 Unknown nullFlavo Comprehensi ed11 c232-6 Memoria 19:36:00 19:36:00 r ve Heart 9j8-35x9-1 l Care PA cbb-6225af Haylee nn a6fb0f 2013-06-23 2013-06-23 Unknown nullFlavo Comprehensi 9f23 3707-e Memoria 19:36:00 19:36:00 r ve Heart 75e-40e2-9 l Care PA aef-02dc89 Haylee nn 7c8c5c 2013-06-23 2013-06-23 Unknown nullFlavo Comprehensi baaa 0f6c-7 Memoria 19:36:00 19:36:00 r ve Heart 350-4bd4-9 l Care PA e37-y44ae0 [facility] nn 717728 2207-10-11 2013-06-23 Unknown nullFlavo Comprehensi 7f19 7246-d Memoria 19:36:00 19:36:00 r ve Heart m98-90n3-d l Care PA fe1-d54ef8 Haylee nn 6d2efb 2013-06-23 2013-06-23 Unknown nullFlavo Comprehensi 55b1 cb54-e Memoria 18:36:00 18:36:00 r ve Heart 821-4e53-9 l Care PA 095-l9939c Haylee nn 927906 1006-10-11 2013-06-23 Unknown nullFlavo Comprehensi 0864 0f64-3 Memoria 18:36:00 18:36:00 r ve Heart 2p9-4k3i-x l Care PA 4k7-arm822 Haylee nn 3760fd 2013-06-23 2013-06-23 Unknown nullFlavo Comprehensi 1c46 1d94-1 Memoria 18:36:00 18:36:00 r ve Heart n8h-2g4d-i l Care PA p6h-588xpe Haylee nn 2ka230 2013-06-23 2013-06-23 Unknown nullFlavo Comprehensi b524 cedc-e Memoria 18:36:00 18:36:00 r ve Heart 377-439c-a l Care PA 23b-t3590w Haylee nn 5814fb 2013-06-23 2013-06-23 Unknown nullFlavo Comprehensi 1d2f 329f-e Memoria 18:36:00 18:36:00 r ve Heart b38-9bed-c l [facility] PA [id number] Haylee nn 9644b6 2013-06-23 2013-06-23 Unknown nullFlavo Comprehensi fd75 3172-9 Memoria 18:36:00 18:36:00 r ve Heart bce-4607-b l Care PA af3-406b7c [facility] nn 179c17 2013-06-23 2013-06-23 Unknown nullFlavo Comprehensi 87e5 d721-a Memoria 18:36:00 18:36:00 [facility] ve Heart d21-7b57-2 l Care PA v6k-04q98g [facility] nn 4bf18f 2013-06-23 2013-06-23 Unknown nullFlavo Comprehensi 184e f372-7 Memoria 18:36:00 18:36:00 r ve Heart 90f-4ab7-9 l Care PA e26-v9f35e [facility] nn 96e7e2 2013-06-23 2013-06-23 Unknown nullFlavo Comprehensi d7bb d637-f Memoria 18:36:00 18:36:00 r ve Heart 040-4a66-b l Care PA 42e-27f1b6 [facility] nn 8d69ea 2013-06-23 2013-06-23 Unknown nullFlavo Comprehensi 4f14 799b-0 Memoria 18:36:00 18:36:00 r ve Heart ebe-4ec7-8 l Care PA 5z2-z7s236 [facility] nn 00m022 2013-06-23 2013-06-23 Unknown nullFlavo Comprehensi 7b2a 8df6-9 Memoria 18:36:00 18:36:00 r ve Heart 3c3-0973-6 l Care PA 3b2-5qq2rz [facility] nn 199895 2058-10-11 2013-06-23 Unknown nullFlavo Comprehensi 797c ef06-7 Memoria 18:36:00 18:36:00 r ve Heart 414-42c5-a l Care PA 646-06e9a5 [facility] nn b562f7 2013-06-23 2013-06-23 Unknown nullFlavo Comprehensi e9f6 955c-9 Memoria 18:36:00 18:36:00 r ve Heart fde-41c8-9 l Care PA i9d-t9p4do [facility] nn 985ebe 2013-06-23 2013-06-23 Unknown nullFlavo Comprehensi 3f22 283f-7 Memoria 18:36:00 18:36:00 r ve Heart 45b-46a2-a l Care PA 52c-e875c4 [facility] nn ccc23d 2013-06-23 2013-06-23 Unknown nullFlavo Comprehensi 3d53 90e0-9 Memoria 18:36:00 18:36:00 r ve Heart 4ab-41a6-b l Care PA ffc-8f42c8 [facility] nn 25a41e 2013-06-23 2013-06-23 Unknown nullFlavo Comprehensi 2d0e bdba-a Memoria 18:36:00 18:36:00 r ve Heart 815-4e63-a l Care PA 35a-ec22c8 [facility] nn e1e8c9 2013-06-23 2013-06-23 Unknown nullFlavo Comprehensi a046 28d8-e Memoria 18:36:00 18:36:00 r ve Heart 68a-4a47-8 l Care PA d7x-d85zf2 [facility] nn 111e13 2013-06-23 2013-06-23 Unknown nullFlavo Comprehensi b248 193f-0 Memoria 18:36:00 18:36:00 r ve Heart 018-457c-8 l Care PA cc6-1bc774 [facility] nn 0a815t 2013-06-23 2013-06-23 Unknown nullFlavo Comprehensi 4e13 e16f-e Memoria 18:36:00 18:36:00 r ve Heart n8h-39c0-v l Care PA y9v-8l926g [facility] nn 861980 5613-10-11 2013-06-23 Unknown nullFlavo Comprehensi 55b1 cb54-e [facility]oria 18:36:00 18:36:00 r ve Heart 821-4e53-9 l Care PA 095-v4220p [facility] nn 795936 3908-10-11 2013-06-23 Unknown nullFlavo Comprehensi 4f14 799b-0 [facility]oria 18:36:00 18:36:00 r ve Heart ebe-4ec7-8 l Care PA 0v9-v5u932 [facility] nn 32y749 2013-06-23 2013-06-23 Unknown nullFlavo Comprehensi 1d2f 329f-e Memoria 18:36:00 18:36:00 r ve Heart p08-4gxe-q l Care PA 657-714610 [facility] nn 9644b6 2013-06-23 2013-06-23 Unknown nullFlavo Comprehensi 0864 0f64-3 Memoria 18:36:00 18:36:00 r ve Heart 1c9-1b5v-a l Care PA 7r2-afd930 [facility] nn 3760fd 2013-06-23 2013-06-23 Unknown nullFlavo Comprehensi 1c46 1d94-1 [facility]oria 18:36:00 18:36:00 r ve Heart y7l-7m5k-o l Care PA y2d-634etp [facility] nn 4nl226 2013-06-23 2013-06-23 Unknown nullFlavo Comprehensi 87e5 d721-a [facility]oria 18:36:00 18:36:00 r ve Heart s53-3y55-5 l Care PA c3g-85n62d [facility] nn 4bf18f 2013-06-23 2013-06-23 Unknown nullFlavo Comprehensi d7bb d637-f [facility]oria 18:36:00 18:36:00 r ve Heart 040-4a66-b l Care PA 42e-27f1b6 [facility] nn 8d69ea 2013-06-23 2013-06-23 Unknown nullFlavo Comprehensi 3d53 90e0-9 [facility]oria 18:36:00 18:36:00 r ve Heart 4ab-41a6-b l Care PA ffc-8f42c8 [facility] nn 25a41e 2013-06-23 2013-06-23 Unknown nullFlavo Comprehensi fd75 3172-9 [facility] 18:36:00 18:36:00 r ve Heart bce-4607-b l Care PA af3-406b7c [facility] nn 179c17 2013-06-23 2013-06-23 Unknown nullFlavo Comprehensi 184e f372-7 [facility] 18:36:00 18:36:00 r ve Heart 90f-4ab7-9 l Care PA t42-z3u19o [facility] nn 96e7e2 2013-06-23 2013-06-23 Unknown nullFlavo Comprehensi b524 cedc-e [facility] 18:36:00 18:36:00 r ve Heart 377-439c-a l Care PA 23b-b9243w [facility] nn 5814fb 2013-06-23 2013-06-23 Unknown nullFlavo Comprehensi e9f6 955c-9 [facility]oria 18:36:00 18:36:00 r ve Heart fde-41c8-9 l Care PA b6o-l5i3oe [facility] nn 985ebe 2013-06-23 2013-06-23 Unknown nullFlavo Comprehensi 3f22 283f-7 [facility] 18:36:00 18:36:00 r ve Heart 45b-46a2-a l Care PA 52c-e875c4 [facility] nn ccc23d 2013-06-23 2013-06-23 Unknown nullFlavo Comprehensi 797c ef06-7 [facility]oria 18:36:00 18:36:00 r ve Heart 414-42c5-a l Care PA 646-06e9a5 [facility] nn b562f7 2013-06-23 2013-06-23 Unknown nullFlavo Comprehensi a046 28d8-e [facility]oria 18:36:00 18:36:00 r ve Heart 68a-4a47-8 l Care PA v6p-y55np3 [facility] nn 111e13 2013-06-23 2013-06-23 Unknown nullFlavo Comprehensi 7b2a 8df6-9 [facility]oria 18:36:00 18:36:00 r ve Heart 7n9-7948-8 l Care PA 9r5-3dv0ur [facility] nn 873824 5777-10-11 2013-06-23 Unknown nullFlavo Comprehensi 2d0e bdba-a [facility] 18:36:00 18:36:00 r ve Heart 815-4e63-a l Care PA 35a-ec22c8 [facility] nn e1e8c9 2013-06-23 2013-06-23 Unknown nullFlavo Comprehensi b248 193f-0 [facility] 18:36:00 18:36:00 r ve Heart 018-457c-8 l Care PA cc6-2rp653 [facility] nn 5c945j 2013-06-23 2013-06-23 Unknown nullFlavo Comprehensi 4e13 e16f-e [facility] 18:36:00 18:36:00 r ve Heart y1u-81h3-k l Care PA o0j-8d245u [facility] nn 170590 6493-10-11 2013-06-23 Unknown nullFlavo Comprehensi 55b1 cb54-e [facility] 18:36:00 18:36:00 r ve Heart 821-4e53-9 l Care PA 095-e7523s [facility] nn 954973 3983-10-11 2013-06-23 Unknown nullFlavo Comprehensi 4f14 799b-0 [facility] 18:36:00 18:36:00 r ve Heart ebe-4ec7-8 l Care PA 5p9-w9q256 [facility] nn 24n142 2013-06-23 2013-06-23 Unknown nullFlavo Comprehensi 1d2f 329f-e [facility] 18:36:00 18:36:00 r ve Heart s69-6cju-x l Care PA 657-868038 [facility] nn 9644b6 2013-06-23 2013-06-23 Unknown nullFlavo Comprehensi 0864 0f64-3 [facility]oria 18:36:00 18:36:00 r ve Heart 1d7-5k9e-q l Care PA 1t1-uhn790 Ahylee nn 3760fd 2013-06-23 2013-06-23 Unknown nullFlavo Comprehensi 1c46 1d94-1 [facility] 18:36:00 18:36:00 r ve Heart o2a-3k2f-a l Care PA z8c-319une [facility] nn 0qx256 2013-06-23 2013-06-23 Unknown nullFlavo Comprehensi 87e5 d721-a [facility] 18:36:00 18:36:00 r ve Heart y85-9c35-5 l Care PA g5b-22t70i [facility] nn 4bf18f 2013-06-23 2013-06-23 Unknown nullFlavo Comprehensi d7bb d637-f [facility] 18:36:00 18:36:00 r ve Heart 040-4a66-b l Care PA 42e-27f1b6 [facility] nn 8d69ea 2013-06-23 2013-06-23 Unknown nullFlavo Comprehensi 3d53 90e0-9 [facility] 18:36:00 18:36:00 r ve Heart 4ab-41a6-b l Care PA ffc-8f42c8 [facility] nn 25a41e 2013-06-23 2013-06-23 Unknown nullFlavo Comprehensi fd75 3172-9 [facility] 18:36:00 18:36:00 r ve Heart bce-4607-b l Care PA af3-406b7c [facility] nn 179c17 2013-06-23 2013-06-23 Unknown nullFlavo Comprehensi 184e f372-7 [facility]oria 18:36:00 18:36:00 r ve Heart 90f-4ab7-9 l Care PA s83-q0p13a [facility] nn 96e7e2 2013-06-23 2013-06-23 Unknown nullFlavo Comprehensi b524 cedc-e [facility] 18:36:00 18:36:00 r ve Heart 377-439c-a l Care PA 23b-i7200l [facility] nn 5814fb 2013-06-23 2013-06-23 Unknown nullFlavo Comprehensi e9f6 955c-9 [facility]oria 18:36:00 18:36:00 r ve Heart fde-41c8-9 l Care PA p0z-k4x2lm [facility] nn 985ebe 2013-06-23 2013-06-23 Unknown nullFlavo Comprehensi 3f22 283f-7 [facility] 18:36:00 18:36:00 r ve Heart 45b-46a2-a l Care PA 52c-e875c4 [facility] nn ccc23d 2013-06-23 2013-06-23 Unknown nullFlavo Comprehensi 797c ef06-7 [facility]oria 18:36:00 18:36:00 r ve Heart 414-42c5-a l Care PA 646-06e9a5 [facility] nn b562f7 2013-06-23 2013-06-23 Unknown nullFlavo Comprehensi a046 28d8-e [facility] 18:36:00 18:36:00 r ve Heart 68a-4a47-8 l Care PA x3w-k09dl6 [facility] nn 111e13 2013-06-23 2013-06-23 Unknown nullFlavo Comprehensi 7b2a 8df6-9 [facility] 18:36:00 18:36:00 r ve Heart 1u8-6628-1 l Care PA 7n4-7dt3kn [facility] nn 567518 7945-10-11 2013-06-23 Unknown nullFlavo Comprehensi 2d0e bdba-a [facility] 18:36:00 18:36:00 r ve Heart 815-4e63-a l Care PA 35a-ec22c8 [facility] nn e1e8c9 2013-06-23 2013-06-23 Unknown nullFlavo Comprehensi b248 193f-0 [facility] 18:36:00 18:36:00 r ve Heart 018-457c-8 l Care PA cc6-0zx416 [facility] nn 1m443z 2013-06-23 2013-06-23 Unknown nullFlavo Comprehensi 4e13 e16f-e [facility] 18:36:00 18:36:00 r ve Heart k9j-94j8-i l Care PA l0i-0h738r [facility] nn 233573 4217-10-11 2013-06-23 Outpatient Comprehen Comprehensi [facility] 13:36[facility] 2013-06-23 2013-06-23 Outpatient Comprehen Comprehensi 2 24003 [facility] 13:36:00 [facility] 2013-06-13 2013-06-13 Unknown nullFlavo Comprehensi ae99 40ca-2 Memoria 22:44:00 22:44:00 r ve Heart 84b-4a27-a l Care PA 0r0-245j4r [facility] nn f589e2 2013-06-13 2013-06-13 Unknown nullFlavo Comprehensi 56b5 7b87-e [facility]oria 22:44:00 22:44:00 r ve Heart 887-49cd-9 l Care PA 952-0054b1 [facility] nn 9f059e 2013-06-13 2013-06-13 Unknown nullFlavo Comprehensi 538c 3498-5 Memoria 22:44:00 22:44:00 r ve Heart 617-4476-9 l Care PA 23e-afd7b1 [facility]lee nn 06721m 2013-06-13 2013-06-13 Unknown nullFlavo Comprehensi f85b 9a63-7 [facility]oria 22:44:00 22:44:00 r ve Heart t2h-76e2-1 l Care PA a0l-7hmz04 [facility] nn 293f08 2013-06-13 2013-06-13 Unknown nullFlavo Comprehensi 8d91 62ee-e [facility]oria 22:44:00 22:44:00 r ve Heart bc3-48e3-8 l Care PA fd1-651528 [facility] nn 9z054u 2013-06-13 2013-06-13 Unknown nullFlavo Comprehensi e4cd f5b7-a [facility]oria 22:44:00 22:44:00 r ve Heart w6p-2520-x l Care PA v79-m13821 [facility] nn 351255 2381-10-01 2013-06-13 Unknown nullFlavo Comprehensi bbe0 d311-b Memoria 22:44:00 22:44:00 r ve Heart o0i-5z85-3 l Care PA bc9-c0e7a9 [facility] nn f2cb65 2013-06-13 2013-06-13 Unknown nullFlavo Comprehensi 83c5 6302-f Memoria 22:44:00 22:44:00 r ve Heart 3s4-5yf5-7 l Care PA dbb-e045a6 [facility] nn ogz929 2013-06-13 2013-06-13 Unknown nullFlavo Comprehensi d66b 3b66-0 [facility]oria 22:44:00 22:44:00 r ve Heart 0fa-437c-a l Care PA ca0-2027c7 [facility] nn 2d92a7 2013-06-13 2013-06-13 Unknown nullFlavo Comprehensi b8ab f28d-b [facility]oria 22:44:00 22:44:00 r ve Heart c95-6440-p l Care PA 8a0-15l1cq [facility] nn a6afc3 2013-06-13 2013-06-13 Unknown nullFlavo Comprehensi abe2 f998-9 [facility]oria 22:44:00 22:44:00 r ve Heart shivam-4ffb-a l Care PA r1n-l9x67h [facility] nn 9fd5d1 2013-06-13 2013-06-13 Unknown nullFlavo Comprehensi 19c0 ac33-e [facility] 22:44:00 22:44:00 r ve Heart 5p8-2tn8-7 l Care PA u8j-1s9759 [facility] nn ab87f7 2013-06-13 2013-06-13 Unknown nullFlavo Comprehensi ae99 40ca-2 [facility] 22:44:00 22:44:00 r ve Heart 84b-4a27-a l Care PA 1j5-272t6z [facility] nn f589e2 2013-06-13 2013-06-13 Unknown nullFlavo Comprehensi f85b 9a63-7 [facility]oria 22:44:00 22:44:00 r ve Heart g4y-23i0-5 l Care PA x5x-4kuw22 [facility] nn 293f08 2013-06-13 2013-06-13 Unknown nullFlavo Comprehensi 8d91 62ee-e Memoria 22:44:00 22:44:00 r ve Heart bc3-48e3-8 l Care PA fd1-252903 [facility] nn 1g232r 2013-06-13 2013-06-13 Unknown nullFlavo Comprehensi 56b5 7b87-e Memoria 22:44:00 22:44:00 r ve Heart 887-49cd-9 l Care PA 952-0054b1 [facility] nn 4c793j 2013-06-13 2013-06-13 Unknown nullFlavo Comprehensi 538c 3498-5 Memoria 22:44:00 22:44:00 r ve Heart 617-4476-9 l Care PA 23e-afd7b1 [facility] nn 61530q 2013-06-13 2013-06-13 Unknown nullFlavo Comprehensi e4cd f5b7-a [facility]oria 22:44:00 22:44:00 r ve Heart p1v-2704-n l Care PA z47-a07541 [facility] nn 848861 4137-10-01 2013-06-13 Unknown nullFlavo Comprehensi 19c0 ac33-e [facility]oria 22:44:00 22:44:00 r ve Heart 5i8-4dd0-4 l Care PA w5z-7x7034 [facility] nn ab87f7 2013-06-13 2013-06-13 Unknown nullFlavo Comprehensi b8ab f28d-b [facility]oria 22:44:00 22:44:00 r ve Heart r11-4900-l l Care PA 1a3-56k9zb [facility] nn a6afc3 2013-06-13 2013-06-13 Unknown nullFlavo Comprehensi abe2 f998-9 [facility]oria 22:44:00 22:44:00 r ve Heart shivam-4ffb-a l Care PA g6h-x6q20t [facility] nn 9fd5d1 2013-06-13 2013-06-13 Unknown nullFlavo Comprehensi bbe0 d311-b [facility] 22:44:00 22:44:00 r ve Heart r2g-6w97-1 l Care PA bc9-c0e7a9 [facility] nn f2cb65 2013-06-13 2013-06-13 Unknown nullFlavo Comprehensi 83c5 6302-f Memoria 22:44:00 22:44:00 r ve Heart 7c6-0nm4-8 l Care PA dbb-e045a6 [facility] nn sas370 2013-06-13 2013-06-13 Unknown nullFlavo Comprehensi d66b 3b66-0 Memoria 22:44:00 22:44:00 r ve Heart 0fa-437c-a l Care PA ca0-2027c7 [facility] nn 2d92a7 2013-06-13 2013-06-13 Unknown nullFlavo Comprehensi ae99 40ca-2 [facility] 22:44:00 22:44:00 r ve Heart 84b-4a27-a l Care PA 6i3-963d9z [facility] nn f589e2 2013-06-13 2013-06-13 Unknown nullFlavo Comprehensi f85b 9a63-7 Memoria 22:44:00 22:44:00 r ve Heart i0u-08r6-2 l Care PA e5g-2msb25 [facility] nn 293f08 2013-06-13 2013-06-13 Unknown nullFlavo Comprehensi 8d91 62ee-e Memoria 22:44:00 22:44:00 r ve Heart bc3-48e3-8 l Care PA fd1-371456 [facility] nn 8a038v 2013-06-13 2013-06-13 Unknown nullFlavo Comprehensi 56b5 7b87-e Memoria 22:44:00 22:44:00 r ve Heart 887-49cd-9 l Care PA 952-0054b1 [facility] nn 0f092o 2013-06-13 2013-06-13 Unknown nullFlavo Comprehensi 538c 3498-5 Memoria 22:44:00 22:44:00 r ve Heart 617-4476-9 l Care PA 23e-afd7b1 [facility] nn 31072g 2013-06-13 2013-06-13 Unknown nullFlavo Comprehensi e4cd f5b7-a [facility]oria 22:44:00 22:44:00 r ve Heart e7q-7282-e l Care PA r00-d80154 [facility] nn 389837 9469-10-01 2013-06-13 Unknown nullFlavo Comprehensi 19c0 ac33-e [facility]oria 22:44:00 22:44:00 r ve Heart 1v6-8nw1-3 l Care PA f4k-7l7509 [facility] nn ab87f7 2013-06-13 2013-06-13 Unknown nullFlavo Comprehensi b8ab f28d-b [facility]oria 22:44:00 22:44:00 r ve Heart r37-3605-r l Care PA 0v8-52f7lf [facility] nn a6afc3 2013-06-13 2013-06-13 Unknown nullFlavo Comprehensi abe2 f998-9 Memoria 22:44:00 22:44:00 r ve Heart shivam-4ffb-a l Care PA q1o-g9x95x [facility] nn 9fd5d1 2013-06-13 2013-06-13 Unknown nullFlavo Comprehensi bbe0 d311-b [facility]oria 22:44:00 22:44:00 r ve Heart y0d-4v88-3 l Care PA bc9-c0e7a9 [facility] nn f2cb65 2013-06-13 2013-06-13 Unknown nullFlavo Comprehensi 83c5 6302-f [facility]oria 22:44:00 22:44:00 r ve Heart 3c8-6zf0-4 l Care PA dbb-e045a6 [facility] nn osd264 2013-06-13 2013-06-13 Unknown nullFlavo Comprehensi d66b 3b66-0 [facility]oria 22:44:00 22:44:00 r ve Heart 0fa-437c-a l Care PA ca0-2027c7 [facility] nn 2d92a7 2013-06-13 2013-06-13 Unknown nullFlavo Comprehensi f909 8713-1 [facility]oria 21:44:00 21:44:00 r ve Heart t8i-70j8-r l Care PA j11-04n2s4 [facility] nn 899f62 2013-06-13 2013-06-13 Unknown nullFlavo Comprehensi ccd1 5e6c-8 [facility] 21:44:00 21:44:00 r ve Heart 409-405e-8 l Care PA g93-2950nt [facility] nn e528ee 2013-06-13 2013-06-13 Unknown nullFlavo Comprehensi afd0 32fe-8 [facility] 21:44:00 21:44:00 r ve Heart 3ef-4bb8-a l Care PA 32b-3805b3 [facility] nn ec0c0f 2013-06-13 2013-06-13 Unknown nullFlavo Comprehensi d4a9 6d7b-4 [facility]oria 21:44:00 21:44:00 r ve Heart 74d-4faf-9 l Care PA w32-yz3346 [facility] nn 1cfe31 2013-06-13 2013-06-13 Unknown nullFlavo Comprehensi 1148 d3c5-4 [facility]oria 21:44:00 21:44:00 r ve Heart 1k2-6e78-o l Care PA r94-8m37oz [facility] nn a9159y 2013-06-13 2013-06-13 Unknown nullFlavo Comprehensi 2bad cdd4-c [facility] 21:44:00 21:44:00 r ve Heart 75e-43ba-b l Care PA k86-230b0t [facility] nn e650fb 2013-06-13 2013-06-13 Unknown nullFlavo Comprehensi 4c8b 2b04-8 [facility]oria 21:44:00 21:44:00 r ve Heart s67-0332-j l Care PA 864-867df6 [facility] nn 212c29 2013-06-13 2013-06-13 Unknown nullFlavo Comprehensi ee51 bd4f-9 [facility] 21:44:00 21:44:00 r ve Heart 632-4436-9 l Care PA s81-15mihu [facility] nn 5868ef 2013-06-13 2013-06-13 Unknown nullFlavo Comprehensi 73ff 8772-3 Memoria 21:44:00 21:44:00 r ve Heart 9c0-00jf-e l Care PA adb-449d8d [facility] nn c136e8 2013-06-13 2013-06-13 Unknown nullFlavo Comprehensi 40af 459a-7 [facility] 21:44:00 21:44:00 r ve Heart ff4-44c7-a l Care PA p05-9a6855 [facility] nn 2z1953 2013-06-13 2013-06-13 Unknown nullFlavo Comprehensi cf0e c0bf-6 [facility]oria 21:44:00 21:44:00 r ve Heart cc5-49e0-8 l Care PA 88e-b5bd0a [facility] nn diy793 2013-06-13 2013-06-13 Unknown nullFlavo Comprehensi df42 17fe-9 [facility] 21:44:00 21:44:00 r ve Heart 1z9-16w6-s l Care PA 149-mhw908 [facility] nn 8411d0 2013-06-13 2013-06-13 Unknown nullFlavo Comprehensi cb51 93e5-b [facility] 21:44:00 21:44:00 r ve Heart 41f-4542-b l Care PA 1k7-35473n [facility] nn 3c9d64 2013-06-13 2013-06-13 Unknown nullFlavo Comprehensi 77b3 544b-7 [facility] 21:44:00 21:44:00 r ve Heart bfe-41ba-9 l Care PA fe1-5135cb [facility] nn 63s249 2013-06-13 2013-06-13 Unknown nullFlavo Comprehensi e321 d8ee-e [facility]oria 21:44:00 21:44:00 r ve Heart bc2-4833-9 l Care PA 78e-536ecc [facility] nn 1f7e89 2013-06-13 2013-06-13 Unknown nullFlavo Comprehensi 1e85 193e-8 [facility] 21:44:00 21:44:00 r ve Heart 896-438a-9 l Care PA 902-500e9f [facility] nn 177015 6091-10-01 2013-06-13 Unknown nullFlavo Comprehensi d26a ccbe-5 [facility] 21:44:00 21:44:00 r ve Heart 1ec-413c-8 l Care PA b15-9av0q3 [facility] nn my9288 2013-06-13 2013-06-13 Unknown nullFlavo Comprehensi b93e ddc8-e [facility] 21:44:00 21:44:00 r ve Heart 185-47c9-8 l Care PA 9eb-c40af5 [facility] nn 86f5bc 2013-06-13 2013-06-13 Unknown nullFlavo Comprehensi dce1 9a9b-3 [facility] 21:44:00 21:44:00 r ve Heart 616-4b25-8 l Care PA 836-509026 [facility] nn ef4d9c 2013-06-13 2013-06-13 Unknown nullFlavo Comprehensi aa50 1e8d-9 [facility] 21:44:00 21:44:00 r ve Heart 6p7-2812-5 l Care PA 7v0-ny95jv [facility] nn baadb2 2013-06-13 2013-06-13 Unknown nullFlavo Comprehensi ccd1 5e6c-8 [facility] 21:44:00 21:44:00 r ve Heart 409-405e-8 l Care PA p61-2394zc [facility] nn e528ee 2013-06-13 2013-06-13 Unknown nullFlavo Comprehensi f909 8713-1 [facility] 21:44:00 21:44:00 r ve Heart a6m-71z8-i l Care PA j02-66x1k8 [facility] nn 899f62 2013-06-13 2013-06-13 Unknown nullFlavo Comprehensi cf0e c0bf-6 [facility] 21:44:00 21:44:00 r ve Heart cc5-49e0-8 l Care PA 88e-b5bd0a [facility] nn kun345 2013-06-13 2013-06-13 Unknown nullFlavo Comprehensi 2bad cdd4-c [facility] 21:44:00 21:44:00 r ve Heart 75e-43ba-b l Care PA r55-435o7k [facility] nn e650fb 2013-06-13 2013-06-13 Unknown nullFlavo Comprehensi afd0 32fe-8 [facility] 21:44:00 21:44:00 r ve Heart 3ef-4bb8-a l Care PA 32b-3805b3 [facility] nn ec0c0f 2013-06-13 2013-06-13 Unknown nullFlavo Comprehensi d4a9 6d7b-4 [facility] 21:44:00 21:44:00 r ve Heart 74d-4faf-9 l Care PA s76-jq3194 [facility] nn 1cfe31 2013-06-13 2013-06-13 Unknown nullFlavo Comprehensi ee51 bd4f-9 [facility] 21:44:00 21:44:00 r ve Heart 632-4436-9 l Care PA y22-98xbll [facility] nn 5868ef 2013-06-13 2013-06-13 Unknown nullFlavo Comprehensi 40af 459a-7 [facility] 21:44:00 21:44:00 r ve Heart ff4-44c7-a l Care PA t16-8a7925 [facility] nn 3o8556 2013-06-13 2013-06-13 Unknown nullFlavo Comprehensi 1e85 193e-8 [facility] 21:44:00 21:44:00 r ve Heart 896-438a-9 l Care PA 902-500e9f [facility] nn 705159 3626-10-01 2013-06-13 Unknown nullFlavo Comprehensi 4c8b 2b04-8 [facility] 21:44:00 21:44:00 r ve Heart h78-4724-g l Care PA 864-867df6 [facility] nn 212c29 2013-06-13 2013-06-13 Unknown nullFlavo Comprehensi 73ff 8772-3 [facility] 21:44:00 21:44:00 r ve Heart 5k4-50ls-p l Care PA adb-449d8d [facility] nn c136e8 2013-06-13 2013-06-13 Unknown nullFlavo Comprehensi 1148 d3c5-4 [facility] 21:44:00 21:44:00 r ve Heart 8h4-9u09-x l Care PA f58-3i91ne [facility] nn s8353p 2013-06-13 2013-06-13 Unknown nullFlavo Comprehensi 77b3 544b-7 [facility] 21:44:00 21:44:00 r ve Heart bfe-41ba-9 l Care PA [id number] Haylee nn [id number] 2013-06-13 2013-06-13 Unknown nullFlavo Comprehensi e321 d8ee-e [facility] 21:44:00 21:44:00 r ve Heart bc2-4833-9 l Care PA 78e-536ecc Haylee nn 1f7e89 2013-06-13 2013-06-13 Unknown nullFlavo Comprehensi cb51 93e5-b [facility] 21:44:00 21:44:00 r ve Heart 41f-4542-b l Care PA [id number] Haylee nn 3c9d64 2013-06-13 2013-06-13 Unknown nullFlavo Comprehensi b93e ddc8-e [facility] 21:44:00 21:44:00 r ve Heart 185-47c9-8 l Care PA 9eb-c40af5 Haylee nn 86f5bc 2013-06-13 2013-06-13 Unknown nullFlavo Comprehensi df42 17fe-9 [facility] 21:44:00 21:44:00 r ve Heart 9e9-23m5-c l Care PA 149-zgc702 Haylee nn [id number] 2013-06-13 2013-06-13 Unknown nullFlavo Comprehensi d26a ccbe-5 [facility] 21:44:00 21:44:00 r ve Heart 1ec-413c-8 l Care PA [id number] Haylee nn wg2602 2013-06-13 2013-06-13 Unknown nullFlavo Comprehensi dce1 9a9b-3 [facility] 21:44:00 21:44:00 r ve Heart 616-4b25-8 l Care PA [id number] Haylee nn ef4d9c 2013-06-13 2013-06-13 Unknown nullFlavo Comprehensi aa50 1e8d-9 [facility] 21:44:00 21:44:00 r ve Heart 5k5-6482-2 l Care PA 7t8-pe96db Haylee nn baadb2 2013-06-13 2013-06-13 Unknown nullFlavo Comprehensi ccd1 5e6c-8 [facility] 21:44:00 21:44:00 r ve Heart 409-405e-8 l Care PA [id number] Haylee nn e528ee 2013-06-13 2013-06-13 Unknown nullFlavo Comprehensi f909 8713-1 [facility] 21:44:00 21:44:00 r ve Heart d6a-74c7-f l Care PA [id number] Haylee nn 899f62 2013-06-13 2013-06-13 Unknown nullFlavo Comprehensi cf0e c0bf-6 [facility] 21:44:00 21:44:00 r ve Heart cc5-49e0-8 l Care PA 88e-b5bd0a Haylee nn zhw468 2013-06-13 2013-06-13 Unknown nullFlavo Comprehensi 2bad cdd4-c [facility] 21:44:00 21:44:00 r ve Heart 75e-43ba-b l Care PA [id number] Haylee nn e650fb 2013-06-13 2013-06-13 Unknown nullFlavo Comprehensi afd0 32fe-8 [facility] 21:44:00 21:44:00 r ve Heart 3ef-4bb8-a l Care PA 32b-3805b3 Haylee nn ec0c0f 2013-06-13 2013-06-13 Unknown nullFlavo Comprehensi d4a9 6d7b-4 [facility] 21:44:00 21:44:00 r ve Heart 74d-4faf-9 l Care PA e16-to0129 Haylee nn 1cfe31 2013-06-13 2013-06-13 Unknown nullFlavo Comprehensi ee51 bd4f-9 [facility] 21:44:00 21:44:00 r ve Heart 632-4436-9 l Care PA r47-17qxkd Haylee nn 5868ef 2013-06-13 2013-06-13 Unknown nullFlavo Comprehensi 40af 459a-7 [facility] 21:44:00 21:44:00 r ve Heart ff4-44c7-a l Care PA d08-6d2079 Haylee nn 0x0835 2013-06-13 2013-06-13 Unknown nullFlavo Comprehensi 1e85 193e-8 [facility] 21:44:00 21:44:00 r ve Heart 896-438a-9 l Care PA 902-500e9f Haylee nn 124880 9899-10-01 2013-06-13 Unknown nullFlavo Comprehensi 4c8b 2b04-8 [facility] 21:44:00 21:44:00 r ve Heart u00-9577-l l Care PA [id number] Haylee nn 212c29 2013-06-13 2013-06-13 Unknown nullFlavo Comprehensi 73ff 8772-3 [facility] 21:44:00 21:44:00 r ve Heart 3u7-77fo-l l Care PA adb-449d8d Haylee nn c136e8 2013-06-13 2013-06-13 Unknown nullFlavo Comprehensi 1148 d3c5-4 [facility] 21:44:00 21:44:00 r ve Heart 2d2-1h40-e l Care PA w71-7r21er Haylee nn r9909n 2013-06-13 2013-06-13 Unknown nullFlavo Comprehensi 77b3 544b-7 [facility] 21:44:00 21:44:00 r ve Heart bfe-41ba-9 l Care PA fe1-5135cb Haylee nn [id number] 2013-06-13 2013-06-13 Unknown nullFlavo Comprehensi e321 d8ee-e [facility] 21:44:00 21:44:00 r ve Heart bc2-4833-9 l Care PA 78e-536ecc [facility] nn 1f7e89 2013-06-13 2013-06-13 Unknown nullFlavo Comprehensi cb51 93e5-b [facility] 21:44:00 21:44:00 r ve Heart 41f-4542-b l Care PA 0p7-67920v Haylee nn 3c9d64 2013-06-13 2013-06-13 Unknown nullFlavo Comprehensi b93e ddc8-e [facility] 21:44:00 21:44:00 r ve Heart 185-47c9-8 l Care PA 9eb-c40af5 Haylee nn 86f5bc 2013-06-13 2013-06-13 Unknown nullFlavo Comprehensi df42 17fe-9 [facility] 21:44:00 21:44:00 r ve Heart 3q8-13r7-e l Care PA 149-qls674 Haylee nn 8411d0 2013-06-13 2013-06-13 Unknown nullFlavo Comprehensi d26a ccbe-5 [facility] 21:44:00 21:44:00 r ve Heart 1ec-413c-8 l Care PA m97-8vt4n8 [facility] nn wc3593 2013-06-13 2013-06-13 Unknown nullFlavo Comprehensi dce1 9a9b-3 [facility]oria 21:44:00 21:44:00 r ve Heart 616-4b25-8 l Care PA [id number] [facility] nn ef4d9c 2013-06-13 2013-06-13 Unknown nullFlavo Comprehensi aa50 1e8d-9 [facility] 21:44:00 21:44:00 r ve Heart 9m5-4167-6 l Care PA 8u5-hd28gq [facility] nn baadb2 2013-06-13 2013-06-13 Outpatient Comprehen Comprehensi [facility]:44[facility] 2013-06-13 2013-06-13 Outpatient Comprehen Comprehensi 2 07161 [facility] 16:44:00 [facility]44[facility] 2013-05-23 2013-05-23 Unknown nullFlavo Comprehensi 7d40 a3de-f [facility] 21:00:00 21:00:00 r ve Heart 374-4a9f-b l Care PA a0o-jz190w Haylee nn ee5f15 2013-05-23 2013-05-23 Unknown nullFlavo Comprehensi 64ee c0fd-1 [facility] 21:00:00 21:00:00 r ve Heart eca-47eb-b l Care PA 98d-7d8d08 Haylee nn 24bfe9 2013-05-23 2013-05-23 Unknown nullFlavo Comprehensi 639d df4b-d [facility] 21:00:00 21:00:00 r ve Heart 4k4-0at9-5 l Care PA o10-f060f7 Haylee nn 5b5a56 2013-05-23 2013-05-23 Unknown nullFlavo Comprehensi 4efe 6a06-c [facility] 21:00:00 21:00:00 r ve Heart i59-9m02-1 l Care PA h92-jli5t6 Haylee nn [id number] 2013-05-23 2013-05-23 Unknown nullFlavo Comprehensi b99a d9ea-4 [facility] 21:00:00 21:00:00 r ve Heart 1i4-8284-9 l Care PA 903-dc70d5 [facility] nn b7b57d 2013-05-23 2013-05-23 Unknown nullFlavo Comprehensi 517c 6ebc-7 [facility] 21:00:00 21:00:00 r ve Heart b30-9b38-1 l Care PA 3fe-b5bf07 [facility] nn sg4540 2013-05-23 2013-05-23 Unknown nullFlavo Comprehensi f909 b02c-8 [facility] 21:00:00 21:00:00 r ve Heart 1ab-4338-b l Care PA 593-0849b3 [facility] nn 131fcd 2013-05-23 2013-05-23 Unknown nullFlavo Comprehensi 7c01 aa63-e [facility] 21:00:00 21:00:00 r ve Heart 531-4dd4-9 l Care PA 8e9-cx04wx [facility] nn 5cd09e 2013-05-23 2013-05-23 Unknown nullFlavo Comprehensi 2222 9101-6 [facility] 21:00:00 21:00:00 r ve Heart 58d-4634-8 l Care PA 64d-636eb6 [facility] nn 4u5436 2013-05-23 2013-05-23 Unknown nullFlavo Comprehensi 47af 7922-e [facility] 21:00:00 21:00:00 r ve Heart 09c-4d29-8 l Care PA 4ba-02f6ca Haylee nn 54025f 2013-05-23 2013-05-23 Unknown nullFlavo Comprehensi d925 f505-a [facility] 21:00:00 21:00:00 r ve Heart 84a-4d97-a l Care PA 3be-598ad1 [facility] nn e83ab4 2013-05-23 2013-05-23 Unknown nullFlavo Comprehensi 84d7 7e94-e [facility] 21:00:00 21:00:00 r ve Heart 945-4e5e-8 l Care PA cf6-6740d9 [facility] nn a3a9b0 2013-05-23 2013-05-23 Unknown nullFlavo Comprehensi 7d40 a3de-f [facility] 21:00:00 21:00:00 r ve Heart 374-4a9f-b l Care PA c4q-go225b [facility] nn ee5f15 2013-05-23 2013-05-23 Unknown nullFlavo Comprehensi 4efe 6a06-c [facility] 21:00:00 21:00:00 [facility] ve Heart g05-4a79-3 l Care PA a04-lyj6z4 [facility] nn f08470 2013-05-23 2013-05-23 Unknown nullFlavo Comprehensi b99a d9ea-4 [facility] 21:00:00 21:00:00 [facility] ve Heart 5k1-0078-6 l Care PA 903-dc70d5 [facility] nn b7b57d 2013-05-23 2013-05-23 Unknown nullFlavo Comprehensi 64ee c0fd-1 [facility] 21:00:00 21:00:00 [facility] ve Heart eca-47eb-b l Care PA 98d-7d8d08 [facility] nn 24bfe9 2013-05-23 2013-05-23 Unknown nullFlavo Comprehensi 639d df4b-d [facility] 21:00:00 21:00:00 [facility] ve Heart 0i1-6sq6-3 l Care PA q87-k500c4 [facility] nn 5b5a56 2013-05-23 2013-05-23 Unknown nullFlavo Comprehensi 517c 6ebc-7 [facility] 21:00:00 21:00:00 r ve Heart e94-3b63-5 l Care PA 3fe-b5bf07 [facility] nn ac2693 2013-05-23 2013-05-23 Unknown nullFlavo Comprehensi 84d7 7e94-e [facility] 21:00:00 21:00:00 r ve Heart 945-4e5e-8 l Care PA cf6-6740d9 [facility] nn a3a9b0 2013-05-23 2013-05-23 Unknown nullFlavo Comprehensi 47af 7922-e [facility] 21:00:00 21:00:00 r ve Heart 09c-4d29-8 l Care PA 4ba-02f6ca Haylee nn 27061g 2013-05-23 2013-05-23 Unknown nullFlavo Comprehensi d925 f505-a [facility] 21:00:00 21:00:00 r ve Heart 84a-4d97-a l Care PA 3be-598ad1 [facility] nn e83ab4 2013-05-23 2013-05-23 Unknown nullFlavo Comprehensi f909 b02c-8 [facility] 21:00:00 21:00:00 r ve Heart 1ab-4338-b l Care PA 593-0849b3 [facility] nn 131fcd 2013-05-23 2013-05-23 Unknown nullFlavo Comprehensi 7c01 aa63-e [facility] 21:00:00 21:00:00 r ve Heart 531-4dd4-9 l Care PA 6k0-ya02zu [facility] nn 5cd09e 2013-05-23 2013-05-23 Unknown nullFlavo Comprehensi 2222 9101-6 [facility] 21:00:00 21:00:00 r ve Heart 58d-4634-8 l Care PA 64d-636eb6 [facility] nn 0d8669 2013-05-23 2013-05-23 Unknown nullFlavo Comprehensi 7d40 a3de-f [facility] 21:00:00 21:00:00 r ve Heart 374-4a9f-b l Care PA n1w-bt550r [facility] nn ee5f15 2013-05-23 2013-05-23 Unknown nullFlavo Comprehensi 4efe 6a06-c [facility] 21:00:00 21:00:00 r ve Heart h33-4w73-3 l Care PA c30-nph8l8 [facility] nn s36419 2013-05-23 2013-05-23 Unknown nullFlavo Comprehensi b99a d9ea-4 [facility] 21:00:00 21:00:00 r ve Heart 8n3-7750-6 l Care PA 903-dc70d5 [facility] nn b7b57d 2013-05-23 2013-05-23 Unknown nullFlavo Comprehensi 64ee c0fd-1 [facility] 21:00:00 21:00:00 r ve Heart eca-47eb-b l Care PA 98d-7d8d08 [facility] nn 24bfe9 2013-05-23 2013-05-23 Unknown nullFlavo Comprehensi 639d df4b-d [facility] 21:00:00 21:00:00 r ve Heart 6e3-3mf1-1 l Care PA r02-q348t1 [facility] nn 5b5a56 2013-05-23 2013-05-23 Unknown nullFlavo Comprehensi 517c 6ebc-7 [facility] 21:00:00 21:00:00 r ve Heart r03-4v28-7 l Care PA 3fe-b5bf07 [facility] nn zz1222 2013-05-23 2013-05-23 Unknown nullFlavo Comprehensi 84d7 7e94-e [facility] 21:00:00 21:00:00 r ve Heart 945-4e5e-8 l Care PA cf6-6740d9 [facility] nn a3a9b0 2013-05-23 2013-05-23 Unknown nullFlavo Comprehensi 47af 7922-e [facility] 21:00:00 21:00:00 r ve Heart 09c-4d29-8 l Care PA 4ba-02f6ca Haylee nn 79475x 2013-05-23 2013-05-23 Unknown nullFlavo Comprehensi d925 f505-a [facility] 21:00:00 21:00:00 r ve Heart 84a-4d97-a l Care PA 3be-598ad1 [facility] nn e83ab4 2013-05-23 2013-05-23 Unknown nullFlavo Comprehensi f909 b02c-8 [facility] 21:00:00 21:00:00 r ve Heart 1ab-4338-b l Care PA 593-0849b3 [facility] nn 131fcd 2013-05-23 2013-05-23 Unknown nullFlavo Comprehensi 7c01 aa63-e [facility] 21:00:00 21:00:00 r ve Heart 531-4dd4-9 l Care PA 1e1-mf43gt [facility] nn 5cd09e 2013-05-23 2013-05-23 Unknown nullFlavo Comprehensi 2222 9101-6 [facility] 21:00:00 21:00:00 r ve Heart 58d-4634-8 l Care PA 64d-636eb6 [facility] nn 9t6147 2013-05-23 2013-05-23 Unknown nullFlavo Comprehensi b004 251c-6 [facility] 20:00:00 20:00:00 r ve Heart c5s-7b98-a l Care PA ff6-66a86b [facility] nn 0y0158 2013-05-23 2013-05-23 Unknown nullFlavo Comprehensi 0b8c 4427-5 [facility] 20:00:00 20:00:00 r ve Heart 85d-449f-8 l Care PA 49a-8ae07a [facility] nn 38accb 2013-05-23 2013-05-23 Unknown nullFlavo Comprehensi 9074 f5f1-6 [facility] 20:00:00 20:00:00 r ve Heart ec1-4d1d-8 l Care PA 7a5-q8396q [facility] nn n4386k 2013-05-23 2013-05-23 Unknown nullFlavo Comprehensi f321 8c3a-c [facility] 20:00:00 20:00:00 r ve Heart 709-458a-a l Care PA 5q7-o482w0 [facility] nn 8761f4 2013-05-23 2013-05-23 Unknown nullFlavo Comprehensi b0eb 95c3-e [facility] 20:00:00 20:00:00 r ve Heart 9h2-08y0-1 l Care PA 250-b162dd [facility] nn 6px448 2013-05-23 2013-05-23 Unknown nullFlavo Comprehensi 61a8 a49f-4 [facility] 20:00:00 20:00:00 r ve Heart 8fd-4a07-b l Care PA 8s2-480386 [facility] nn 569cde 2013-05-23 2013-05-23 Unknown nullFlavo Comprehensi 2c72 e082-6 [facility] 20:00:00 20:00:00 r ve Heart ed3-4b5c-8 l Care PA y59-r57895 [facility] nn 280164 5646-09-10 2013-05-23 Unknown nullFlavo Comprehensi be5f 33c6-d [facility] 20:00:00 20:00:00 r ve Heart ea1-4233-b l Care PA 3i7-6r3x0g [facility] nn 94b095 2013-05-23 2013-05-23 Unknown nullFlavo Comprehensi 2a83 7c33-a [facility] 20:00:00 20:00:00 r ve Heart r8h-3z3i-6 l Care PA 77f-812dd1 [facility] nn 77510e 2013-05-23 2013-05-23 Unknown nullFlavo Comprehensi 0556 2db3-5 [facility] 20:00:00 20:00:00 r ve Heart 38b-4faf-b l Care PA 47c-8rn399 [facility] nn uy341d 2013-05-23 2013-05-23 Unknown nullFlavo Comprehensi 4a57 c411-6 [facility] 20:00:00 20:00:00 r ve Heart h63-0054-y l Care PA 629-a88bf5 [facility] nn 185f5a 2013-05-23 2013-05-23 Unknown nullFlavo Comprehensi 4a16 def2-b [facility] 20:00:00 20:00:00 r ve Heart 3n4-131s-2 l Care PA 3s0-zz545g [facility] nn d4f1cf 2013-05-23 2013-05-23 Unknown nullFlavo Comprehensi 77a2 8a26-8 [facility] 20:00:00 20:00:00 r ve Heart a53-3043-6 l Care PA 2h3-122ws7 [facility] nn 1d01c1 2013-05-23 2013-05-23 Unknown nullFlavo Comprehensi 7464 e14b-5 [facility] 20:00:00 20:00:00 r ve Heart 03a-454b-8 l Care PA db8-41b50e [facility] nn 6dd031 2013-05-23 2013-05-23 Unknown nullFlavo Comprehensi 412a 14c0-f [facility] 20:00:00 20:00:00 r ve Heart 0x7-7119-3 l Care PA 025-8b0b29 Haylee nn 675020 3605-09-10 2013-05-23 Unknown nullFlavo Comprehensi 0a74 962b-b [facility] 20:00:00 20:00:00 r ve Heart 0ee-4033-9 l Care PA 395-2d9a4d [facility] nn ae18e3 2013-05-23 2013-05-23 Unknown nullFlavo Comprehensi 48f6 66ce-a [facility] 20:00:00 20:00:00 r ve Heart t59-25dy-5 l Care PA 588-b061dd [facility] nn 78a7d0 2013-05-23 2013-05-23 Unknown nullFlavo Comprehensi 9fd5 6f6c-5 [facility] 20:00:00 20:00:00 r ve Heart 824-4352-9 l Care PA 413-b80ce1 [facility] nn 0ff2f5 2013-05-23 2013-05-23 Unknown nullFlavo Comprehensi 2a83 7c33-a [facility] 20:00:00 20:00:00 r ve Heart z5p-1b3x-5 l Care PA 77f-812dd1 [facility] nn 80615t 2013-05-23 2013-05-23 Unknown nullFlavo Comprehensi f321 8c3a-c [facility] 20:00:00 20:00:00 r ve Heart 709-458a-a l Care PA 5r5-c683s1 [facility] nn 8761f4 2013-05-23 2013-05-23 Unknown nullFlavo Comprehensi b004 251c-6 [facility] 20:00:00 20:00:00 r ve Heart d2y-6g95-r l Care PA ff6-66a86b [facility] nn 5i0690 2013-05-23 2013-05-23 Unknown nullFlavo Comprehensi 0b8c 4427-5 [facility] 20:00:00 20:00:00 r ve Heart 85d-449f-8 l Care PA 49a-8ae07a [facility] nn 38accb 2013-05-23 2013-05-23 Unknown nullFlavo Comprehensi 61a8 a49f-4 [facility] 20:00:00 20:00:00 r ve Heart 8fd-4a07-b l Care PA 0s9-492828 [facility] nn 569cde 2013-05-23 2013-05-23 Unknown nullFlavo Comprehensi be5f 33c6-d [facility] 20:00:00 20:00:00 r ve Heart ea1-4233-b l Care PA 1l7-5i5c4k [facility] nn 78f223 2013-05-23 2013-05-23 Unknown nullFlavo Comprehensi 7464 e14b-5 [facility] 20:00:00 20:00:00 r ve Heart 03a-454b-8 l Care PA db8-41b50e [facility] nn 2rm431 2013-05-23 2013-05-23 Unknown nullFlavo Comprehensi b0eb 95c3-e [facility] 20:00:00 20:00:00 r ve Heart 4t1-32i8-6 l Care PA 250-b162dd [facility] nn 6ix400 2013-05-23 2013-05-23 Unknown nullFlavo Comprehensi 2c72 e082-6 [facility] 20:00:00 20:00:00 r ve Heart ed3-4b5c-8 l Care PA o47-q76562 Haylee nn 171165 0482-09-10 2013-05-23 Unknown nullFlavo Comprehensi 9074 f5f1-6 [facility] 20:00:00 20:00:00 [facility] ve Heart ec1-4d1d-8 l Care PA 1l6-r4886f [facility] nn p6222z 2013-05-23 2013-05-23 Unknown nullFlavo Comprehensi 4a16 def2-b [facility] 20:00:00 20:00:00 r ve Heart 4m1-992a-2 l Care PA 7k8-hc699r [facility] nn d4f1cf 2013-05-23 2013-05-23 Unknown nullFlavo Comprehensi 77a2 8a26-8 [facility] 20:00:00 20:00:00 r ve Heart q44-2907-0 l Care PA 4d0-316hx6 [facility] nn 1d01c1 2013-05-23 2013-05-23 Unknown nullFlavo Comprehensi 4a57 c411-6 [facility] 20:00:00 20:00:00 r ve Heart l50-2381-x l Care PA 629-a88bf5 [facility] nn 185f5a 2013-05-23 2013-05-23 Unknown nullFlavo Comprehensi 0a74 962b-b [facility] 20:00:00 20:00:00 r ve Heart 0ee-4033-9 l Care PA 395-2d9a4d [facility] nn ae18e3 2013-05-23 2013-05-23 Unknown nullFlavo Comprehensi 0556 2db3-5 [facility] 20:00:00 20:00:00 r ve Heart 38b-4faf-b l Care PA 47c-7ol693 [facility] nn nx160v 2013-05-23 2013-05-23 Unknown nullFlavo Comprehensi 412a 14c0-f [facility] 20:00:00 20:00:00 r ve Heart 0w4-6866-9 l Care PA 025-8b0b29 [facility] nn 871625 9403-09-10 2013-05-23 Unknown nullFlavo Comprehensi 48f6 66ce-a [facility] 20:00:00 20:00:00 r ve Heart k38-58qu-1 l Care PA 588-b061dd [facility] nn 78a7d0 2013-05-23 2013-05-23 Unknown nullFlavo Comprehensi 9fd5 6f6c-5 [facility] 20:00:00 20:00:00 r ve Heart 824-4352-9 l Care PA 413-b80ce1 [facility] nn 0ff2f5 2013-05-23 2013-05-23 Unknown nullFlavo Comprehensi 2a83 7c33-a [facility] 20:00:00 20:00:00 r ve Heart x0n-3l5l-3 l Care PA 77f-812dd1 [facility] nn 86097i 2013-05-23 2013-05-23 Unknown nullFlavo Comprehensi f321 8c3a-c [facility] 20:00:00 20:00:00 r ve Heart 709-458a-a l Care PA 5q7-n011p4 [facility] nn 8761f4 2013-05-23 2013-05-23 Unknown nullFlavo Comprehensi b004 251c-6 [facility] 20:00:00 20:00:00 r ve Heart e4x-2n82-h l Care PA ff6-66a86b [facility] nn 2f5443 2013-05-23 2013-05-23 Unknown nullFlavo Comprehensi 0b8c 4427-5 [facility] 20:00:00 20:00:00 r ve Heart 85d-449f-8 l Care PA 49a-8ae07a [facility] nn 38accb 2013-05-23 2013-05-23 Unknown nullFlavo Comprehensi 61a8 a49f-4 [facility] 20:00:00 20:00:00 r ve Heart 8fd-4a07-b l Care PA 9m9-176476 [facility] nn 569cde 2013-05-23 2013-05-23 Unknown nullFlavo Comprehensi be5f 33c6-d [facility] 20:00:00 20:00:00 r ve Heart ea1-4233-b l Care PA 1w6-5o9z8y [facility] nn 37q709 2013-05-23 2013-05-23 Unknown nullFlavo Comprehensi 7464 e14b-5 [facility] 20:00:00 20:00:00 r ve Heart 03a-454b-8 l Care PA db8-41b50e [facility] nn 4xo158 2013-05-23 2013-05-23 Unknown nullFlavo Comprehensi b0eb 95c3-e [facility] 20:00:00 20:00:00 r ve Heart 2m7-28a0-0 l Care PA 250-b162dd [facility] nn 3rj853 2013-05-23 2013-05-23 Unknown nullFlavo Comprehensi 2c72 e082-6 [facility] 20:00:00 20:00:00 r ve Heart ed3-4b5c-8 l Care PA h22-q03838 Haylee nn 577799 2972-09-10 2013-05-23 Unknown nullFlavo Comprehensi 9074 f5f1-6 [facility] 20:00:00 20:00:00 r ve Heart ec1-4d1d-8 l Care PA 1h9-k1273s [facility] nn r3610k 2013-05-23 2013-05-23 Unknown nullFlavo Comprehensi 4a16 def2-b [facility] 20:00:00 20:00:00 r ve Heart 4l9-646o-3 l Care PA 1i4-cw460l [facility] nn d4f1cf 2013-05-23 2013-05-23 Unknown nullFlavo Comprehensi 77a2 8a26-8 [facility] 20:00:00 20:00:00 r ve Heart u47-8795-2 l Care PA 7a6-804in4 [facility] nn 1d01c1 2013-05-23 2013-05-23 Unknown nullFlavo Comprehensi 4a57 c411-6 [facility] 20:00:00 20:00:00 r ve Heart u15-2225-f l Care PA 629-a88bf5 [facility] nn 185f5a 2013-05-23 2013-05-23 Unknown nullFlavo Comprehensi 0a74 962b-b [facility] 20:00:00 20:00:00 r ve Heart 0ee-4033-9 l Care PA 395-2d9a4d [facility] nn ae18e3 2013-05-23 2013-05-23 Unknown nullFlavo Comprehensi 0556 2db3-5 [facility] 20:00:00 20:00:00 r ve Heart 38b-4faf-b l Care PA 47c-0fx435 [facility] nn hy649w 2013-05-23 2013-05-23 Unknown nullFlavo Comprehensi 412a 14c0-f [facility] 20:00:00 20:00:00 r ve Heart 7a4-0055-0 l Care PA 025-8b0b29 Haylee nn 640344 7971-09-10 2013-05-23 Unknown nullFlavo Comprehensi 48f6 66ce-a [facility] 20:00:00 20:00:00 r ve Heart t24-52zz-4 l Care PA 588-b061dd [facility] nn 78a7d0 2013-05-23 2013-05-23 Unknown nullFlavo Comprehensi 9fd5 6f6c-5 [facility] 20:00:00 20:00:00 r ve Heart 824-4352-9 l Care PA 413-b80ce1 [facility] nn 0ff2f5 2013-05-23 2013-05-23 Outpatient Comprehen Comprehensi 2 00953 [facility] 15:00:00 15:00:00 [facility] ve [facility] al[facility]or ut [facility] PA Care PA 2013-05-23 2013-05-23 Outpatient Comprehen Comprehensi 2 60131 [facility] 15:00:00 15:00:00 [facility] alWor ut Heart Care IN Care PA 2013-02-23 2013-02-23 Unknown nullFlavo Comprehensi ab98 702d-0 [facility] 20:01:00 20:01:00 r ve Heart 3k4-53ks-9 l Care PA 80f-7440b9 [facility] nn a99f6d 2013-02-23 2013-02-23 Unknown nullFlavo Comprehensi 318a 68f6-1 [facility] 20:01:00 20:01:00 r ve Heart z5b-4k8u-5 l Care PA 5j8-907o1f [facility] nn 3tc583 2013-02-23 2013-02-23 Unknown nullFlavo Comprehensi f2a6 cfb5-4 [facility] 20:01:00 20:01:00 r ve Heart 486-4a4d-8 l Care PA r17-g23715 [facility] nn 55007a 2013-02-23 2013-02-23 Unknown nullFlavo Comprehensi 5181 0dbe-5 [facility] 20:01:00 20:01:00 r ve Heart 1h2-0770-g l Care PA dd5-af1f52 [facility] nn f18e6b 2013-02-23 2013-02-23 Unknown nullFlavo Comprehensi 3d74 572a-f [facility] 20:01:00 20:01:00 r ve Heart 5e0-6944-4 l Care PA 97c-1c6ac3 [facility] nn 781a81 2013-02-23 2013-02-23 Unknown nullFlavo Comprehensi 0569 69be-a [facility] 20:01:00 20:01:00 r ve Heart 434-421d-8 l Care PA e5z-o88i5d Haylee nn 256005 0065-06-13 2013-02-23 Unknown nullFlavo Comprehensi 849f b105-a [facility] 20:01:00 20:01:00 r ve Heart naveed-4c45-8 l Care PA ea9-92w101 [facility] nn 6fd0c8 2013-02-23 2013-02-23 Unknown nullFlavo Comprehensi c544 fe27-3 [facility] 20:01:00 20:01:00 r ve Heart 1da-4fa2-9 l Care PA h4f-u14163 [facility] nn 59j636 2013-02-23 2013-02-23 Unknown nullFlavo Comprehensi 42a6 b9bf-a [facility] 20:01:00 20:01:00 r ve Heart 7n6-052f-4 l Care PA 413-8549cf [facility] nn 64f3ec 2013-02-23 2013-02-23 Unknown nullFlavo Comprehensi 5f00 8fe9-8 [facility] 20:01:00 20:01:00 r ve Heart p12-82u1-6 l Care PA 2f4-1lt0tc [facility] nn n3c986 2013-02-23 2013-02-23 Unknown nullFlavo Comprehensi 3ef4 3fbd-4 [facility] 20:01:00 20:01:00 r ve Heart 063-4e7b-9 l Care PA m04-271n34 [facility] nn 35281k 2013-02-23 2013-02-23 Unknown nullFlavo Comprehensi d8e4 5e21-0 [facility] 20:01:00 20:01:00 r ve Heart 3m5-1416-o l Care PA 5cd-5cd58c [facility] nn 7d31f8 2013-02-23 2013-02-23 Unknown nullFlavo Comprehensi ab98 702d-0 [facility] 20:01:00 20:01:00 r ve Heart 4m0-42ry-3 l Care PA 80f-7440b9 [facility] nn a99f6d 2013-02-23 2013-02-23 Unknown nullFlavo Comprehensi 5181 0dbe-5 [facility] 20:01:00 20:01:00 r ve Heart 8m8-6586-o l Care PA dd5-af1f52 [facility] nn f18e6b 2013-02-23 2013-02-23 Unknown nullFlavo Comprehensi 3d74 572a-f [facility] 20:01:00 20:01:00 r ve Heart 4e6-3670-4 l Care PA 97c-1c6ac3 [facility] nn 781a81 2013-02-23 2013-02-23 Unknown nullFlavo Comprehensi 318a 68f6-1 [facility] 20:01:00 20:01:00 r ve Heart d6c-8g5b-0 l Care PA 9d9-282a6u [facility] nn 5mt436 2013-02-23 2013-02-23 Unknown nullFlavo Comprehensi f2a6 cfb5-4 [facility] 20:01:00 20:01:00 r ve Heart 486-4a4d-8 l Care PA q92-l99683 [facility] nn 48119t 2013-02-23 2013-02-23 Unknown nullFlavo Comprehensi 0569 69be-a [facility] 20:01:00 20:01:00 r ve Heart 434-421d-8 l Care PA f2o-z38q5g [facility] nn 825813 8769-06-13 2013-02-23 Unknown nullFlavo Comprehensi d8e4 5e21-0 [facility] 20:01:00 20:01:00 r ve Heart 6u1-0548-v l Care PA 5cd-5cd58c [facility] nn 7d31f8 2013-02-23 2013-02-23 Unknown nullFlavo Comprehensi 5f00 8fe9-8 [facility] 20:01:00 20:01:00 r ve Heart q19-82x9-6 l Care PA 7p5-7xw1kb [facility] nn q3c839 2013-02-23 2013-02-23 Unknown nullFlavo Comprehensi 3ef4 3fbd-4 [facility] 20:01:00 20:01:00 r ve Heart 063-4e7b-9 l Care PA l88-061h96 [facility] nn 92266d 2013-02-23 2013-02-23 Unknown nullFlavo Comprehensi 849f b105-a [facility] 20:01:00 20:01:00 r ve Heart naveed-4c45-8 l Care PA ea9-55w284 [facility] nn 6fd0c8 2013-02-23 2013-02-23 Unknown nullFlavo Comprehensi c544 fe27-3 [facility] 20:01:00 20:01:00 r ve Heart 1da-4fa2-9 l Care PA x7k-u15044 [facility] nn 19u728 2013-02-23 2013-02-23 Unknown nullFlavo Comprehensi 42a6 b9bf-a [facility] 20:01:00 20:01:00 r ve Heart 1o0-109s-2 l Care PA 413-8549cf [facility] nn 64f3ec 2013-02-23 2013-02-23 Unknown nullFlavo Comprehensi ab98 702d-0 [facility] 20:01:00 20:01:00 r ve Heart 1p8-04ua-5 l Care PA 80f-7440b9 [facility] nn a99f6d 2013-02-23 2013-02-23 Unknown nullFlavo Comprehensi 5181 0dbe-5 [facility] 20:01:00 20:01:00 r ve Heart 6t3-4653-x l Care PA dd5-af1f52 [facility] nn f18e6b 2013-02-23 2013-02-23 Unknown nullFlavo Comprehensi 3d74 572a-f [facility] 20:01:00 20:01:00 r ve Heart 7t8-7907-5 l Care PA 97c-1c6ac3 [facility] nn 781a81 2013-02-23 2013-02-23 Unknown nullFlavo Comprehensi 318a 68f6-1 [facility] 20:01:00 20:01:00 r ve Heart q7a-4k2j-6 l Care PA 7h9-380a9r [facility] nn 2by370 2013-02-23 2013-02-23 Unknown nullFlavo Comprehensi f2a6 cfb5-4 [facility] 20:01:00 20:01:00 r ve Heart 486-4a4d-8 l Care PA e12-c84628 [facility] nn 32952o 2013-02-23 2013-02-23 Unknown nullFlavo Comprehensi 0569 69be-a [facility] 20:01:00 20:01:00 r ve Heart 434-421d-8 l Care PA x7k-u82x3u [facility] nn 065286 3499-06-13 2013-02-23 Unknown nullFlavo Comprehensi d8e4 5e21-0 [facility] 20:01:00 20:01:00 r ve Heart 6z8-6119-d l Care PA 5cd-5cd58c [facility] nn 7d31f8 2013-02-23 2013-02-23 Unknown nullFlavo Comprehensi 5f00 8fe9-8 [facility] 20:01:00 20:01:00 r ve Heart v12-46a4-5 l Care PA 3t0-2kd4ss [facility] nn z0k257 2013-02-23 2013-02-23 Unknown nullFlavo Comprehensi 3ef4 3fbd-4 [facility] 20:01:00 20:01:00 r ve Heart 063-4e7b-9 l Care PA b06-470r77 [facility] nn 47181z 2013-02-23 2013-02-23 Unknown nullFlavo Comprehensi 849f b105-a [facility] 20:01:00 20:01:00 r ve Heart naveed-4c45-8 l Care PA ea9-49m235 [facility] nn 6fd0c8 2013-02-23 2013-02-23 Unknown nullFlavo Comprehensi c544 fe27-3 [facility] 20:01:00 20:01:00 r ve Heart 1da-4fa2-9 l Care PA p9i-z35985 [facility] nn 98l975 2013-02-23 2013-02-23 Unknown nullFlavo Comprehensi 42a6 b9bf-a [facility] 20:01:00 20:01:00 [facility] ve Heart 2r2-458y-9 l Care PA 413-8549cf Haylee nn 64f3ec 2013-02-23 2013-02-23 Unknown nullFlavo Comprehensi 5b8a 360b-b [facility] 19:01:00 19:01:00 r ve Heart 401-4ee0-9 l Care PA i35-485654 Haylee nn ce88dd 2013-02-23 2013-02-23 Unknown nullFlavo Comprehensi 9715 42f2-7 [facility] 19:01:00 19:01:00 r ve Heart 387-43b4-a l Care PA [id number] Haylee nn 24c565 2013-02-23 2013-02-23 Unknown nullFlavo Comprehensi d155 6317-c [facility] 19:01:00 19:01:00 [facility] ve Heart ec5-438e-b l Care PA fa0-4a3bc0 Haylee nn 0bc9e4 2013-02-23 2013-02-23 Unknown nullFlavo Comprehensi 0c06 9664-f [facility] 19:01:00 19:01:00 r ve Heart ccc-4a8f-8 l Care PA 516-f93aac Haylee nn 130ad8 2013-02-23 2013-02-23 Unknown nullFlavo Comprehensi f8ed 76ca-4 [facility]oria 19:01:00 19:01:00 r ve Heart d25-3dg9-3 l Care PA 11b-c07cca Haylee nn 93x283 2013-02-23 2013-02-23 Unknown nullFlavo Comprehensi 0f66 ab56-5 [facility]oria 19:01:00 19:01:00 r ve Heart 9de-4a5c-a l Care PA 0db-cbf5b1 Haylee nn s3933m 2013-02-23 2013-02-23 Unknown nullFlavo Comprehensi 6aed c802-9 [facility] 19:01:00 19:01:00 r ve Heart bdb-4262-8 l Care PA 618-f46c4c Haylee nn 6a64cd 2013-02-23 2013-02-23 Unknown nullFlavo Comprehensi 0b87 ebf6-8 [facility]oria 19:01:00 19:01:00 r ve Heart 7z0-747t-9 l Care PA 7x2-669dh9 Haylee nn j0193f 2013-02-23 2013-02-23 Unknown nullFlavo Comprehensi e61f c7d6-9 [facility]oria 19:01:00 19:01:00 r ve Heart j0n-3055-3 l Care PA ae5-349b12 Haylee nn fc9c1b 2013-02-23 2013-02-23 Unknown nullFlavo Comprehensi dd2f f0ec-9 [facility] 19:01:00 19:01:00 r ve Heart 7f6-5143-x l Care PA b37-568r79 Haylee nn ccd4ce 2013-02-23 2013-02-23 Unknown nullFlavo Comprehensi 955f c9b7-f [facility] 19:01:00 19:01:00 r ve Heart 569-4b47-9 l Care PA v98-c53320 Haylee nn 1b8c0d 2013-02-23 2013-02-23 Unknown nullFlavo Comprehensi 129a 917a-2 [facility] 19:01:00 19:01:00 r ve Heart 3e8-4o84-g l Care PA 3db-bccce7 Haylee nn a1eb51 2013-02-23 2013-02-23 Unknown nullFlavo Comprehensi c7f1 d869-6 [facility] 19:01:00 19:01:00 r ve Heart 647-4ee7-a l Care PA 48a-91219w Haylee nn 3677bd 2013-02-23 2013-02-23 Unknown nullFlavo Comprehensi d1a7 05dd-4 [facility] 19:01:00 19:01:00 r ve Heart 545-42d6-a l Care PA cc2-e7c50d Haylee nn 683f97 2013-02-23 2013-02-23 Unknown nullFlavo Comprehensi 8c90 d15c-0 [facility] 19:01:00 19:01:00 r ve Heart q32-12e2-t l Care PA 3ad-rh024z Haylee nn 3936bd 2013-02-23 2013-02-23 Unknown nullFlavo Comprehensi 5f72 f37c-b [facility] 19:01:00 19:01:00 r ve Heart 5ef-4f08-b l Care PA 122-784412 Haylee nn d1b16d 2013-02-23 2013-02-23 Unknown nullFlavo Comprehensi 74d3 51c5-1 [facility] 19:01:00 19:01:00 r ve Heart cb4-4783-8 l Care PA fa5-b79fde Haylee nn 95afa3 2013-02-23 2013-02-23 Unknown nullFlavo Comprehensi 7cee 5bb0-d [facility] 19:01:00 19:01:00 r ve Heart l3q-09p5-1 l Care PA acb-e02bc1 Haylee nn v6459v 2013-02-23 2013-02-23 Unknown nullFlavo Comprehensi 7c65 5c22-9 [facility] 19:01:00 19:01:00 r ve Heart bc4-431d-b l Care PA 58a-92f44e Haylee nn 2e84c8 2013-02-23 2013-02-23 Unknown nullFlavo Comprehensi 42a6 09db-6 [facility] 19:01:00 19:01:00 r ve Heart 387-4155-8 l Care PA k74-okxgpf Haylee nn a604c9 2013-02-23 2013-02-23 Unknown nullFlavo Comprehensi 15a3 0a57-4 [facility] 19:01:00 19:01:00 r ve Heart 034-4848-9 l Care PA 1y4-ws120w Haylee nn 0c25ec 2013-02-23 2013-02-23 Unknown nullFlavo Comprehensi b6eb 05f6-c [facility] 19:01:00 19:01:00 r ve Heart 79a-45dc-9 l Care PA j20-2p4356 Haylee nn 1d7923 2013-02-23 2013-02-23 Unknown nullFlavo Comprehensi 5b8a 360b-b [facility] 19:01:00 19:01:00 r ve Heart 401-4ee0-9 l Care PA u53-843045 Haylee nn ce88dd 2013-02-23 2013-02-23 Unknown nullFlavo Comprehensi d155 6317-c [facility] 19:01:00 19:01:00 r ve Heart ec5-438e-b l Care PA fa0-4a3bc0 Haylee nn 0bc9e4 2013-02-23 2013-02-23 Unknown nullFlavo Comprehensi 0c06 9664-f [facility] 19:01:00 19:01:00 r ve Heart ccc-4a8f-8 l Care PA 516-f93aac Haylee nn 130ad8 2013-02-23 2013-02-23 Unknown nullFlavo Comprehensi 9715 42f2-7 [facility] 19:01:00 19:01:00 r ve Heart 387-43b4-a l Care PA fd5-722123 [facility] nn 55r550 2013-02-23 2013-02-23 Unknown nullFlavo Comprehensi c7f1 d869-6 [facility]oria 19:01:00 19:01:00 r ve Heart 647-4ee7-a l Care PA 48a-04133b Haylee nn 3677bd 2013-02-23 2013-02-23 Unknown nullFlavo Comprehensi 0b87 ebf6-8 [facility]oria 19:01:00 19:01:00 r ve Heart 7e5-006t-5 l Care PA 0l9-517ao6 [facility] nn q4665o 2013-02-23 2013-02-23 Unknown nullFlavo Comprehensi f8ed 76ca-4 [facility]oria 19:01:00 19:01:00 r ve Heart q20-6jo4-1 l Care PA 11b-c07cca [facility] nn 26f137 2013-02-23 2013-02-23 Unknown nullFlavo Comprehensi 0f66 ab56-5 [facility]oria 19:01:00 19:01:00 r ve Heart 9de-4a5c-a l Care PA 0db-cbf5b1 [facility] nn h5577t 2013-02-23 2013-02-23 Unknown nullFlavo Comprehensi dd2f f0ec-9 [facility]oria 19:01:00 19:01:00 r ve Heart 8i2-2157-v l Care PA t62-071q88 [facility] nn ccd4ce 2013-02-23 2013-02-23 Unknown nullFlavo Comprehensi 129a 917a-2 [facility]oria 19:01:00 19:01:00 r ve Heart 5d2-9s67-u l Care PA 3db-bccce7 [facility] nn a1eb51 2013-02-23 2013-02-23 Unknown nullFlavo Comprehensi 7cee 5bb0-d [facility]oria 19:01:00 19:01:00 [facility] ve Heart r9k-40f9-1 l Care PA acb-e02bc1 [facility] nn u6708i 2013-02-23 2013-02-23 Unknown nullFlavo Comprehensi e61f c7d6-9 [facility]oria 19:01:00 19:01:00 r ve Heart e3m-4946-6 l Care PA ae5-349b12 [facility] nn fc9c1b 2013-02-23 2013-02-23 Unknown nullFlavo Comprehensi 955f c9b7-f [facility] 19:01:00 19:01:00 r ve Heart 569-4b47-9 l Care PA z89-k71026 [facility] nn 1b8c0d 2013-02-23 2013-02-23 Unknown nullFlavo Comprehensi 6aed c802-9 [facility] 19:01:00 19:01:00 r ve Heart bdb-4262-8 l Care PA 618-f46c4c [facility] nn 6a64cd 2013-02-23 2013-02-23 Unknown nullFlavo Comprehensi 5f72 f37c-b [facility] 19:01:00 19:01:00 r ve Heart 5ef-4f08-b l Care PA 122-153829 [facility] nn d1b16d 2013-02-23 2013-02-23 Unknown nullFlavo Comprehensi 74d3 51c5-1 [facility] 19:01:00 19:01:00 r ve Heart cb4-4783-8 l Care PA fa5-b79fde [facility] nn 95afa3 2013-02-23 2013-02-23 Unknown nullFlavo Comprehensi 8c90 d15c-0 [facility] 19:01:00 19:01:00 r ve Heart w39-07m6-d l Care PA 3ad-rf296g [facility] nn 3936bd 2013-02-23 2013-02-23 Unknown nullFlavo Comprehensi 42a6 09db-6 [facility] 19:01:00 19:01:00 r ve Heart 387-4155-8 l Care PA b04-bezyge [facility] nn a604c9 2013-02-23 2013-02-23 Unknown nullFlavo Comprehensi d1a7 05dd-4 [facility] 19:01:00 19:01:00 r ve Heart 545-42d6-a l Care PA cc2-e7c50d [facility] nn 683f97 2013-02-23 2013-02-23 Unknown nullFlavo Comprehensi 7c65 5c22-9 [facility] 19:01:00 19:01:00 r ve Heart bc4-431d-b l Care PA 58a-92f44e [facility] nn 2e84c8 2013-02-23 2013-02-23 Unknown nullFlavo Comprehensi 15a3 0a57-4 [facility] 19:01:00 19:01:00 r ve Heart 034-4848-9 l Care PA 2s1-tc603w [facility] nn 0c25ec 2013-02-23 2013-02-23 Unknown nullFlavo Comprehensi b6eb 05f6-c [facility] 19:01:00 19:01:00 r ve Heart 79a-45dc-9 l Care PA n54-4g0200 [facility] nn 1z5271 2013-02-23 2013-02-23 Unknown nullFlavo Comprehensi 5b8a 360b-b [facility] 19:01:00 19:01:00 r ve Heart 401-4ee0-9 l Care PA q00-237746 [facility] ce88dd 2013-02-23 2013-02-23 Unknown nullFlavo Comprehensi d155 6317-c [facility] 19:01:00 19:01:00 [facility] ve Heart ec5-438e-b l Care PA fa0-4a3bc0 [facility] nn 0bc9e4 2013-02-23 2013-02-23 Unknown nullFlavo Comprehensi 0c06 9664-f [facility] 19:01:00 19:01:00 r ve Heart ccc-4a8f-8 l Care PA 516-f93aac [facility] nn 130ad8 2013-02-23 2013-02-23 Unknown nullFlavo Comprehensi 9715 42f2-7 [facility] 19:01:00 19:01:00 r ve Heart 387-43b4-a l Care PA fd5-149773 [facility] nn 07b612 2013-02-23 2013-02-23 Unknown nullFlavo Comprehensi c7f1 d869-6 [facility] 19:01:00 19:01:00 r ve Heart 647-4ee7-a l Care PA 48a-56712w [facility] nn 3677bd 2013-02-23 2013-02-23 Unknown nullFlavo Comprehensi 0b87 ebf6-8 [facility] 19:01:00 19:01:00 [facility] ve Heart 8j3-560p-6 l Care PA 9p3-571gg3 [facility] nn g0347u 2013-02-23 2013-02-23 Unknown nullFlavo Comprehensi f8ed 76ca-4 [facility] 19:01:00 19:01:00 [facility] ve Heart x60-4og6-5 l Care PA 11b-c07cca [facility] nn 25q579 2013-02-23 2013-02-23 Unknown nullFlavo Comprehensi 0f66 ab56-5 [facility] 19:01:00 19:01:00 r ve Heart 9de-4a5c-a l Care PA 0db-cbf5b1 [facility] nn n1167k 2013-02-23 2013-02-23 Unknown nullFlavo Comprehensi dd2f f0ec-9 [facility] 19:01:00 19:01:00 r ve Heart 6q5-7591-t l Care PA z54-738p79 [facility] nn ccd4ce 2013-02-23 2013-02-23 Unknown nullFlavo Comprehensi 129a 917a-2 [facility] 19:01:00 19:01:00 r ve Heart 1r0-3p02-o l Care PA 3db-bccce7 [facility] nn a1eb51 2013-02-23 2013-02-23 Unknown nullFlavo Comprehensi 7cee 5bb0-d [facility] 19:01:00 19:01:00 r ve Heart a6k-71c1-2 l Care PA acb-e02bc1 [facility] nn s3193d 2013-02-23 2013-02-23 Unknown nullFlavo Comprehensi e61f c7d6-9 [facility] 19:01:00 19:01:00 r ve Heart c8q-3051-3 l Care PA ae5-349b12 [facility] nn fc9c1b 2013-02-23 2013-02-23 Unknown nullFlavo Comprehensi 955f c9b7-f [facility] 19:01:00 19:01:00 r ve Heart 569-4b47-9 l Care PA c82-t94179 [facility] nn 1b8c0d 2013-02-23 2013-02-23 Unknown nullFlavo Comprehensi 6aed c802-9 [facility] 19:01:00 19:01:00 r ve Heart bdb-4262-8 l Care PA 618-f46c4c [facility] nn 6a64cd 2013-02-23 2013-02-23 Unknown nullFlavo Comprehensi 5f72 f37c-b [facility] 19:01:00 19:01:00 r ve Heart 5ef-4f08-b l Care PA 122-260804 [facility] nn d1b16d 2013-02-23 2013-02-23 Unknown nullFlavo Comprehensi 74d3 51c5-1 [facility] 19:01:00 19:01:00 r ve Heart cb4-4783-8 l Care PA fa5-b79fde [facility] nn 95afa3 2013-02-23 2013-02-23 Unknown nullFlavo Comprehensi 8c90 d15c-0 [facility] 19:01:00 19:01:00 [facility] ve Heart r49-88c0-a l Care PA 3ad-zy332x [facility] nn 3936bd 2013-02-23 2013-02-23 Unknown nullFlavo Comprehensi 42a6 09db-6 [facility] 19:01:00 19:01:00 r ve Heart 387-4155-8 l Care PA q30-efjknl [facility] nn a604c9 2013-02-23 2013-02-23 Unknown nullFlavo Comprehensi d1a7 05dd-4 [facility] 19:01:00 19:01:00 r ve Heart 545-42d6-a l Care PA cc2-e7c50d [facility] nn 683f97 2013-02-23 2013-02-23 Unknown nullFlavo Comprehensi 7c65 5c22-9 [facility] 19:01:00 19:01:00 [facility] ve Heart bc4-431d-b l Care PA 58a-92f44e [facility] nn 2e84c8 2013-02-23 2013-02-23 Unknown nullFlavo Comprehensi 15a3 0a57-4 [facility] 19:01:00 19:01:00 [facility] ve Heart 034-4848-9 l Care PA 6q6-zw186v [facility] nn 0c25ec 2013-02-23 2013-02-23 Unknown nullFlavo Comprehensi b6eb 05f6-c [facility] 19:01:00 19:01:00 r ve Heart 79a-45dc-9 l Care PA h75-6l0707 [facility] nn 4e9421 2013-02-23 2013-02-23 Outpatient Comprehen Comprehensi [facility] 14:01:00 14:01:00 [facility] ut [facility] PA Care PA 2013-02-23 2013-02-23 Outpatient Comprehen Comprehensi 2 26698 [facility] 14:01:00 14:01:00 [facility] ut Heart Care PA Care PA 2013-02-22 2013-02-22 Unknown nullFlavo Comprehensi ccdb 944d-8 [facility] 21:00:00 21:00:00 r ve Heart 4ec-48dd-9 l Care PA f49-kr21je [facility] nn b140ff 2013-02-22 2013-02-22 Unknown nullFlavo Comprehensi 4a61 730e-7 [facility] 21:00:00 21:00:00 r ve Heart 977-4b7e-9 l Care PA a1j-in3h31 [facility] nn qoa356 2013-02-22 2013-02-22 Unknown nullFlavo Comprehensi 9d0e 5329-6 [facility] 21:00:00 21:00:00 r ve Heart 405-4146-a l Care PA ac3-0805bd [facility] nn 5a3bfa 2013-02-22 2013-02-22 Unknown nullFlavo Comprehensi 35ed 9506-1 [facility] 21:00:00 21:00:00 r ve Heart 263-4151-b l Care PA a6x-k8l367 [facility] nn 74bc98 2013-02-22 2013-02-22 Unknown nullFlavo Comprehensi 3dc0 1820-8 [facility] 21:00:00 21:00:00 r ve Heart 239-4409-b l Care PA 089-a3e5a2 [facility] nn 624273 4056-06-12 2013-02-22 Unknown nullFlavo Comprehensi 85f3 69ec-1 [facility] 21:00:00 21:00:00 r ve Heart 361-47aa-b l Care PA g31-5d23yk [facility] nn 9ca7e1 2013-02-22 2013-02-22 Unknown nullFlavo Comprehensi 55f1 e8f1-4 [facility] 21:00:00 21:00:00 [facility] ve Heart q15-0p18-o l Care PA 281-d81cac [facility] nn 3e9e18 2013-02-22 2013-02-22 Unknown nullFlavo Comprehensi 1357 8b83-c [facility] 21:00:00 21:00:00 r ve Heart 476-4981-9 l Care PA 1ca-01952d [facility] nn 194e83 2013-02-22 2013-02-22 Unknown nullFlavo Comprehensi a670 8694-3 [facility] 21:00:00 21:00:00 r ve Heart k83-8852-i l Care PA 135-4435bd [facility] nn 832eda 2013-02-22 2013-02-22 Unknown nullFlavo Comprehensi f98c 2b55-2 [facility] 21:00:00 21:00:00 r ve Heart 3h3-40s2-q l Care PA 0bd-1c9acf [facility] nn f2a8e6 2013-02-22 2013-02-22 Unknown nullFlavo Comprehensi 6b19 6e76-3 [facility] 21:00:00 21:00:00 r ve Heart 383-4f59-8 l Care PA 411-2j197o [facility] nn b73ec4 2013-02-22 2013-02-22 Unknown nullFlavo Comprehensi eb26 7286-6 [facility] 21:00:00 21:00:00 r ve Heart 6i9-260n-4 l Care PA 36f-397623 [facility] nn 1ia060 2013-02-22 2013-02-22 Unknown nullFlavo Comprehensi 3dc0 1820-8 [facility] 21:00:00 21:00:00 r ve Heart 239-4409-b l Care PA 089-a3e5a2 [facility] nn 665325 5921-06-12 2013-02-22 Unknown nullFlavo Comprehensi 9d0e 5329-6 [facility] 21:00:00 21:00:00 r ve Heart 405-4146-a l Care PA ac3-0805bd [facility] nn 5a3bfa 2013-02-22 2013-02-22 Unknown nullFlavo Comprehensi 35ed 9506-1 [facility] 21:00:00 21:00:00 r ve Heart 263-4151-b l Care PA i7o-s6k050 [facility] nn 74bc98 2013-02-22 2013-02-22 Unknown nullFlavo Comprehensi eb26 7286-6 [facility] 21:00:00 21:00:00 r ve Heart 9f1-967q-2 l Care PA 36f-892581 [facility] nn 3bk772 2013-02-22 2013-02-22 Unknown nullFlavo Comprehensi ccdb 944d-8 [facility] 21:00:00 21:00:00 r ve Heart 4ec-48dd-9 l Care PA w45-vy93tl [facility] nn b140ff 2013-02-22 2013-02-22 Unknown nullFlavo Comprehensi 4a61 730e-7 [facility] 21:00:00 21:00:00 r ve Heart 977-4b7e-9 l Care PA i3b-uo2l30 [facility] nn ghi740 2013-02-22 2013-02-22 Unknown nullFlavo Comprehensi 85f3 69ec-1 [facility] 21:00:00 21:00:00 r ve Heart 361-47aa-b l Care PA d65-1h16xe [facility] nn 9ca7e1 2013-02-22 2013-02-22 Unknown nullFlavo Comprehensi a670 8694-3 [facility] 21:00:00 21:00:00 r ve Heart i76-1887-o l Care PA 135-4435bd [facility] nn 832eda 2013-02-22 2013-02-22 Unknown nullFlavo Comprehensi f98c 2b55-2 [facility] 21:00:00 21:00:00 r ve Heart 0g7-25g4-c l Care PA 0bd-1c9acf [facility] nn f2a8e6 2013-02-22 2013-02-22 Unknown nullFlavo Comprehensi 55f1 e8f1-4 [facility] 21:00:00 21:00:00 r ve Heart w70-4v82-h l Care PA 281-d81cac [facility] nn 3e9e18 2013-02-22 2013-02-22 Unknown nullFlavo Comprehensi 1357 8b83-c [facility] 21:00:00 21:00:00 r ve Heart 476-4981-9 l Care PA 1ca-24969b [facility] nn 194e83 2013-02-22 2013-02-22 Unknown nullFlavo Comprehensi 6b19 6e76-3 [facility] 21:00:00 21:00:00 r ve Heart 383-4f59-8 l Care PA 411-2j583j [facility] nn b73ec4 2013-02-22 2013-02-22 Unknown nullFlavo Comprehensi 3dc0 1820-8 [facility] 21:00:00 21:00:00 r ve Heart 239-4409-b l Care PA 089-a3e5a2 [facility] nn 376317 6104-06-12 2013-02-22 Unknown nullFlavo Comprehensi 9d0e 5329-6 [facility] 21:00:00 21:00:00 r ve Heart 405-4146-a l Care PA ac3-0805bd [facility] nn 5a3bfa 2013-02-22 2013-02-22 Unknown nullFlavo Comprehensi 35ed 9506-1 [facility] 21:00:00 21:00:00 r ve Heart 263-4151-b l Care PA q5r-m0h032 [facility] nn 74bc98 2013-02-22 2013-02-22 Unknown nullFlavo Comprehensi eb26 7286-6 [facility] 21:00:00 21:00:00 r ve Heart 3f7-177b-3 l Care PA 36f-362370 [facility] nn 0mn081 2013-02-22 2013-02-22 Unknown nullFlavo Comprehensi ccdb 944d-8 [facility] 21:00:00 21:00:00 r ve Heart 4ec-48dd-9 l Care PA j10-tl15hg [facility] nn b140ff 2013-02-22 2013-02-22 Unknown nullFlavo Comprehensi 4a61 730e-7 [facility] 21:00:00 21:00:00 r ve Heart 977-4b7e-9 l Care PA q3b-zw2s31 [facility] nn kuj611 2013-02-22 2013-02-22 Unknown nullFlavo Comprehensi 85f3 69ec-1 [facility] 21:00:00 21:00:00 r ve Heart 361-47aa-b l Care PA v36-9q02cj [facility] nn 9ca7e1 2013-02-22 2013-02-22 Unknown nullFlavo Comprehensi a670 8694-3 [facility] 21:00:00 21:00:00 r ve Heart k50-2525-z l Care PA 135-4435bd [facility] nn 832eda 2013-02-22 2013-02-22 Unknown nullFlavo Comprehensi f98c 2b55-2 [facility] 21:00:00 21:00:00 r ve Heart 3r8-60u6-t l Care PA 0bd-1c9acf [facility] nn f2a8e6 2013-02-22 2013-02-22 Unknown nullFlavo Comprehensi 55f1 e8f1-4 [facility] 21:00:00 21:00:00 r ve Heart l75-7w81-y l Care PA 281-d81cac [facility] nn 3e9e18 2013-02-22 2013-02-22 Unknown nullFlavo Comprehensi 1357 8b83-c [facility] 21:00:00 21:00:00 r ve Heart 476-4981-9 l Care PA 1ca-22212f [facility] nn 194e83 2013-02-22 2013-02-22 Unknown nullFlavo Comprehensi 6b19 6e76-3 [facility] 21:00:00 21:00:00 r ve Heart 383-4f59-8 l Care PA 411-6u144b [facility] nn b73ec4 2013-02-22 2013-02-22 Unknown nullFlavo Comprehensi 7465 569a-1 [facility] 20:00:00 20:00:00 r ve Heart 5fb-474f-a l Care PA anjelica-82f3b8 [facility] nn r2768i 2013-02-22 2013-02-22 Unknown nullFlavo Comprehensi 03b3 755a-d [facility] 20:00:00 20:00:00 [facility] ve Heart a2l-47q6-4 l Care PA 345-9eab6a [facility] nn 93bae7 2013-02-22 2013-02-22 Unknown nullFlavo Comprehensi fcb2 b530-d [facility] 20:00:00 20:00:00 r ve Heart 971-40b9-b l Care PA -4a7705 [facility] nn v1p808 2013-02-22 2013-02-22 Unknown nullFlavo Comprehensi 38cb 0be6-b [facility] 20:00:00 20:00:00 r ve Heart bc4-4dfb-b l Care PA 134-c86b7d [facility] nn 088df6 2013-02-22 2013-02-22 Unknown nullFlavo Comprehensi 400a b7f5-7 [facility] 20:00:00 20:00:00 r ve Heart 115-4030-a l Care PA 685-82a7c2 [facility] nn 17496r 2013-02-22 2013-02-22 Unknown nullFlavo Comprehensi c322 f5bd-a [facility] 20:00:00 20:00:00 [facility] ve Heart cf6-4b69-a l Care PA fa8-3e26dc [facility] nn 519649 7423-06-12 2013-02-22 Unknown nullFlavo Comprehensi 7c24 0203-1 [facility] 20:00:00 20:00:00 r ve Heart 1l1-2652-r l Care PA 78e-bd1d01 [facility] nn 490be2 2013-02-22 2013-02-22 Unknown nullFlavo Comprehensi a023 b5fa-c [facility] 20:00:00 20:00:00 r ve Heart cfe-4b75-a l Care PA be7-ce9bc9 [facility] nn 1aaf45 2013-02-22 2013-02-22 Unknown nullFlavo Comprehensi 21ce 9375-b [facility] 20:00:00 20:00:00 r ve Heart ac0-4296-a l Care PA 06a-683ba5 [facility] nn d71eaa 2013-02-22 2013-02-22 Unknown nullFlavo Comprehensi d7cb afed-4 [facility] 20:00:00 20:00:00 r ve Heart 7l6-061v-j l Care PA 816-5337a6 [facility] nn 297e31 2013-02-22 2013-02-22 Unknown nullFlavo Comprehensi f3d8 4ff2-0 [facility] 20:00:00 20:00:00 r ve Heart df0-4bd3-8 l Care PA ffe-7d2f6b [facility] nn 7s997r 2013-02-22 2013-02-22 Unknown nullFlavo Comprehensi ca9c acef-e [facility] 20:00:00 20:00:00 r ve Heart 0cf-42b8-9 l Care PA d23-3p2413 [facility] nn adfdf9 2013-02-22 2013-02-22 Unknown nullFlavo Comprehensi c5a2 cef7-8 [facility] 20:00:00 20:00:00 r ve Heart 83b-4bbb-b l Care PA cff-75h270 [facility] nn cafef3 2013-02-22 2013-02-22 Unknown nullFlavo Comprehensi 34bb 4971-1 [facility] 20:00:00 20:00:00 r ve Heart 939-4ab2-8 l Care PA 353-j1b998 [facility] nn 86ed81 2013-02-22 2013-02-22 Unknown nullFlavo Comprehensi 47b5 9d69-d [facility] 20:00:00 20:00:00 r ve Heart 0t9-8486-0 l Care PA v53-5064l0 [facility] nn 9c6e22 2013-02-22 2013-02-22 Unknown nullFlavo Comprehensi fd3c c570-3 [facility] 20:00:00 20:00:00 r ve Heart 8c5-4j80-8 l Care PA i82-31818h [facility] nn b04a43 2013-02-22 2013-02-22 Unknown nullFlavo Comprehensi 44f6 35e5-1 [facility] 20:00:00 20:00:00 r ve Heart 9d1-2517-5 l Care PA 236-afa7a4 [facility] nn 837f46 2013-02-22 2013-02-22 Unknown nullFlavo Comprehensi e2d7 24d1-1 [facility] 20:00:00 20:00:00 r ve Heart 645-48e8-b l Care PA g8m-87d0v0 [facility] nn cdb5a5 2013-02-22 2013-02-22 Unknown nullFlavo Comprehensi 686a c8d9-4 [facility] 20:00:00 20:00:00 r ve Heart 347-4d00-9 l Care PA 223-y4y255 [facility] nn f86df9 2013-02-22 2013-02-22 Unknown nullFlavo Comprehensi 91ef b92f-f [facility] 20:00:00 20:00:00 r ve Heart 217-4ef9-b l Care PA 0fc-354267 [facility] nn a83c4e 2013-02-22 2013-02-22 Unknown nullFlavo Comprehensi 51c5 88e1-7 [facility] 20:00:00 20:00:00 r ve Heart 060-47a7-a l Care PA 5dd-0b40c9 [facility] nn 9a2df8 2013-02-22 2013-02-22 Unknown nullFlavo Comprehensi 03b3 755a-d [facility] 20:00:00 20:00:00 r ve Heart o2f-99p4-3 l Care PA 345-9eab6a [facility] nn 93bae7 2013-02-22 2013-02-22 Unknown nullFlavo Comprehensi fcb2 b530-d [facility] 20:00:00 20:00:00 r ve Heart 971-40b9-b l Care PA -5k5161 [facility] nn o4z663 2013-02-22 2013-02-22 Unknown nullFlavo Comprehensi 7465 569a-1 [facility] 20:00:00 20:00:00 r ve Heart 5fb-474f-a l Care PA anjelica-82f3b8 [facility] nn y8054j 2013-02-22 2013-02-22 Unknown nullFlavo Comprehensi ca9c acef-e [facility] 20:00:00 20:00:00 r ve Heart 0cf-42b8-9 l Care PA e65-5v0016 [facility] nn adfdf9 2013-02-22 2013-02-22 Unknown nullFlavo Comprehensi 7c24 0203-1 [facility] 20:00:00 20:00:00 r ve Heart 8b8-2016-t l Care PA 78e-bd1d01 [facility] nn 490be2 2013-02-22 2013-02-22 Unknown nullFlavo Comprehensi 38cb 0be6-b [facility] 20:00:00 20:00:00 r ve Heart bc4-4dfb-b l Care PA 134-c86b7d [facility] nn 088df6 2013-02-22 2013-02-22 Unknown nullFlavo Comprehensi 400a b7f5-7 [facility] 20:00:00 20:00:00 r ve Heart 115-4030-a l Care PA 685-82a7c2 [facility] nn 10833i 2013-02-22 2013-02-22 Unknown nullFlavo Comprehensi 21ce 9375-b [facility] 20:00:00 20:00:00 [facility] ve Heart ac0-4296-a l Care PA 06a-683ba5 [facility] nn d71eaa 2013-02-22 2013-02-22 Unknown nullFlavo Comprehensi f3d8 4ff2-0 [facility] 20:00:00 20:00:00 [facility] ve Heart df0-4bd3-8 l Care PA ffe-7d2f6b [facility] nn 0r768y 2013-02-22 2013-02-22 Unknown nullFlavo Comprehensi 44f6 35e5-1 [facility] 20:00:00 20:00:00 r ve Heart 5s8-0514-0 l Care PA 236-afa7a4 [facility] nn 837f46 2013-02-22 2013-02-22 Unknown nullFlavo Comprehensi a023 b5fa-c [facility] 20:00:00 20:00:00 r ve Heart cfe-4b75-a l Care PA be7-ce9bc9 [facility] nn 1aaf45 2013-02-22 2013-02-22 Unknown nullFlavo Comprehensi d7cb afed-4 [facility] 20:00:00 20:00:00 r ve Heart 2a9-655b-n l Care PA 816-5337a6 [facility] nn 297e31 2013-02-22 2013-02-22 Unknown nullFlavo Comprehensi c322 f5bd-a [facility] 20:00:00 20:00:00 [facility] ve Heart cf6-4b69-a l Care PA fa8-3e26dc [facility] nn 447206 7822-06-12 2013-02-22 Unknown nullFlavo Comprehensi 47b5 9d69-d [facility] 20:00:00 20:00:00 r ve Heart 3e6-6435-7 l Care PA q28-8558f0 [facility] nn 9c6e22 2013-02-22 2013-02-22 Unknown nullFlavo Comprehensi fd3c c570-3 [facility] 20:00:00 20:00:00 r ve Heart 6c7-4k09-7 l Care PA x32-63111z [facility] nn b04a43 2013-02-22 2013-02-22 Unknown nullFlavo Comprehensi 34bb 4971-1 [facility] 20:00:00 20:00:00 r ve Heart 939-4ab2-8 l Care PA 353-s8w749 [facility] nn 86ed81 2013-02-22 2013-02-22 Unknown nullFlavo Comprehensi 686a c8d9-4 [facility] 20:00:00 20:00:00 r ve Heart 347-4d00-9 l Care PA 223-u1v875 [facility] nn f86df9 2013-02-22 2013-02-22 Unknown nullFlavo Comprehensi c5a2 cef7-8 [facility] 20:00:00 20:00:00 r ve Heart 83b-4bbb-b l Care PA cff-25a371 [facility] nn cafef3 2013-02-22 2013-02-22 Unknown nullFlavo Comprehensi e2d7 24d1-1 [facility] 20:00:00 20:00:00 r ve Heart 645-48e8-b l Care PA s0s-24s9g2 [facility] nn cdb5a5 2013-02-22 2013-02-22 Unknown nullFlavo Comprehensi 91ef b92f-f [facility] 20:00:00 20:00:00 [facility] Heart 217-4ef9-b l Care PA 0fc-879752 [facility] nn a83c4e 2013-02-22 2013-02-22 Unknown nullFlavo Comprehensi 51c5 88e1-7 [facility] 20:00:00 20:00:00 r ve Heart 060-47a7-a l Care PA 5dd-0b40c9 [facility] nn 9a2df8 2013-02-22 2013-02-22 Unknown nullFlavo Comprehensi 03b3 755a-d [facility] 20:00:00 20:00:00 r ve Heart j4r-25r9-7 l Care PA 345-9eab6a [facility] nn 93bae7 2013-02-22 2013-02-22 Unknown nullFlavo Comprehensi fcb2 b530-d [facility] 20:00:00 20:00:00 r ve Heart 971-40b9-b l Care PA -4n3553 [facility] nn h1m455 2013-02-22 2013-02-22 Unknown nullFlavo Comprehensi 7465 569a-1 [facility] 20:00:00 20:00:00 [facility] ve Heart 5fb-474f-a l Care PA anjelica-82f3b8 [facility] nn d8776d 2013-02-22 2013-02-22 Unknown nullFlavo Comprehensi ca9c acef-e [facility] 20:00:00 20:00:00 [facility] ve Heart 0cf-42b8-9 l Care PA q29-3i4834 [facility] nn adfdf9 2013-02-22 2013-02-22 Unknown nullFlavo Comprehensi 7c24 0203-1 [facility] 20:00:00 20:00:00 r ve Heart 1h6-1179-g l Care PA 78e-bd1d01 [facility] nn 490be2 2013-02-22 2013-02-22 Unknown nullFlavo Comprehensi 38cb 0be6-b [facility] 20:00:00 20:00:00 r ve Heart bc4-4dfb-b l Care PA 134-c86b7d [facility] nn 088df6 2013-02-22 2013-02-22 Unknown nullFlavo Comprehensi 400a b7f5-7 [facility] 20:00:00 20:00:00 r ve Heart 115-4030-a l Care PA 685-82a7c2 [facility] nn 44434e 2013-02-22 2013-02-22 Unknown nullFlavo Comprehensi 21ce 9375-b [facility] 20:00:00 20:00:00 [facility] ve Heart ac0-4296-a l Care PA 06a-683ba5 [facility] nn d71eaa 2013-02-22 2013-02-22 Unknown nullFlavo Comprehensi f3d8 4ff2-0 [facility] 20:00:00 20:00:00 [facility] ve Heart df0-4bd3-8 l Care PA ffe-7d2f6b [facility] nn 6t113t 2013-02-22 2013-02-22 Unknown nullFlavo Comprehensi 44f6 35e5-1 [facility] 20:00:00 20:00:00 r ve Heart 3r5-9464-4 l Care PA 236-afa7a4 [facility] nn 837f46 2013-02-22 2013-02-22 Unknown nullFlavo Comprehensi a023 b5fa-c [facility] 20:00:00 20:00:00 r ve Heart cfe-4b75-a l Care PA be7-ce9bc9 [facility] nn [id number] 2013-02-22 2013-02-22 Unknown nullFlavo Comprehensi d7cb afed-4 [facility] 20:00:00 20:00:00 r ve Heart 1p4-886x-z l Care PA [id number] [facility] nn [id number] 2013-02-22 2013-02-22 Unknown nullFlavo Comprehensi c322 f5bd-a [facility] 20:00:00 20:00:00 r ve Heart cf6-4b69-a l Care PA [id number] [facility] nn [id number] 8202-06-12 2013-02-22 Unknown nullFlavo Comprehensi 47b5 9d69-d [facility] 20:00:00 20:00:00 r ve Heart 2h0-7482-9 l Care PA [id number] [facility] nn 9c6e22 2013-02-22 2013-02-22 Unknown nullFlavo Comprehensi fd3c c570-3 [facility] 20:00:00 20:00:00 r ve Heart 1n7-6w14-9 l Care PA [id number] [facility] nn b04a43 2013-02-22 2013-02-22 Unknown nullFlavo Comprehensi 34bb 4971-1 [facility] 20:00:00 20:00:00 r ve Heart 939-4ab2-8 l Care PA 353-g7w065 [facility] nn 86ed81 2013-02-22 2013-02-22 Unknown nullFlavo Comprehensi 686a c8d9-4 [facility] 20:00:00 20:00:00 r ve Heart 347-4d00-9 l Care PA 223-x0t440 [facility] nn f86df9 2013-02-22 2013-02-22 Unknown nullFlavo Comprehensi c5a2 cef7-8 [facility] 20:00:00 20:00:00 r ve Heart 83b-4bbb-b l Care PA cff-40k177 [facility] nn cafef3 2013-02-22 2013-02-22 Unknown nullFlavo Comprehensi e2d7 24d1-1 [facility] 20:00:00 20:00:00 r ve Heart 645-48e8-b l Care PA [id number]-41v5i0 [facility] nn cdb5a5 2013-02-22 2013-02-22 Unknown nullFlavo Comprehensi 91ef b92f-f [facility] 20:00:00 20:00:00 r ve Heart 217-4ef9-b l Care PA [id number]-368541 [facility] nn a83c4e 2013-02-22 2013-02-22 Unknown nullFlavo Comprehensi 51c5 88e1-7 [facility] 20:00:00 20:00:00 r ve Heart 060-47a7-a l Care PA 5dd-0b40c9 [facility] nn 9a2df8 2013-02-22 2013-02-22 Outpatient Comprehen Comprehensi 2 [id number] [facility] 15:00:00 15:00:00 [facility] PA Care PA 2013-02-22 2013-02-22 Outpatient Comprehen Comprehensi 2 [id number] [facility]:00[facility]00 [facility] 2012-12-23 2012-12-23 Unknown nullFlavo Comprehensi 41c6 fdbe-a [facility] 16:01:00 16:01:00 r ve Heart 965-441b-8 l Care PA [id number]-54fc92 [facility] nn [id number] 2012-12-23 2012-12-23 Unknown nullFlavo Comprehensi d141 6de9-9 [facility] 16:01:00 16:01:00 r ve Heart 859-4384-b l Care PA 439-c226d3 [facility] nn 303e6f 2012-12-23 2012-12-23 Unknown nullFlavo Comprehensi 6642 365e-2 [facility] 16:01:00 16:01:00 r ve Heart 8x5-54l5-p l Care PA cd0-09f97f [facility] nn f59c5f 2012-12-23 2012-12-23 Unknown nullFlavo Comprehensi 44c3 3a61-a [facility] 16:01:00 16:01:00 r ve Heart 24e-4847-b l Care PA 212-ae1b3b [facility] nn 89b3f7 2012-12-23 2012-12-23 Unknown nullFlavo Comprehensi 088d 01a0-0 [facility] 16:01:00 16:01:00 r ve Heart ae7-4ce7-8 l Care PA 3e9-70r9cq [facility] nn [id number] 2012-12-23 2012-12-23 Unknown nullFlavo Comprehensi 16fe 1358-a [facility] 16:01:00 16:01:00 r ve Heart 39b-4182-9 l Care PA 1db-61h983 [facility] nn [id number] 2012-12-23 2012-12-23 Unknown nullFlavo Comprehensi a884 3be1-c [facility] 16:01:00 16:01:00 r ve Heart q4h-8m23-r l Care PA 84c-825d39 [facility] nn [id number] 2012-12-23 2012-12-23 Unknown nullFlavo Comprehensi 4f96 06a1-3 [facility] 16:01:00 16:01:00 r ve Heart 5d9-0308-z l Care PA 0ca-3fk134 [facility] nn [id number] 7574-04-12 2012-12-23 Unknown nullFlavo Comprehensi 6d11 1f6a-0 [facility] 16:01:00 16:01:00 r ve Heart bfd-414a-a l Care PA l42-z954eg [facility] nn 6x6147 2012-12-23 2012-12-23 Unknown nullFlavo Comprehensi a895 afa7-7 [facility] 16:01:00 16:01:00 r ve Heart n62-021b-1 l Care PA [id number] [facility] nn 6cf9c9 2012-12-23 2012-12-23 Unknown nullFlavo Comprehensi 5d3d 3758-a [facility] 16:01:00 16:01:00 r ve Heart 661-4956-8 l Care PA 795-088d3f [facility] nn d4ef72 2012-12-23 2012-12-23 Unknown nullFlavo Comprehensi 989a ac5f-a [facility] 16:01:00 16:01:00 r ve Heart be8-408c-8 l Care PA 1ff-9o9688 [facility] nn 0c5e44 2012-12-23 2012-12-23 Unknown nullFlavo Comprehensi 41c6 fdbe-a [facility] 16:01:00 16:01:00 r ve Heart 965-441b-8 l Care PA 36a-54fc92 [facility] nn c1q834 2012-12-23 2012-12-23 Unknown nullFlavo Comprehensi 44c3 3a61-a [facility] 16:01:00 16:01:00 r ve Heart 24e-4847-b l Care PA 212-ae1b3b [facility] nn 89b3f7 2012-12-23 2012-12-23 Unknown nullFlavo Comprehensi 088d 01a0-0 [facility] 16:01:00 16:01:00 r ve Heart ae7-4ce7-8 l Care PA 8d0-63u8nr [facility] nn [id number] 2012-12-23 2012-12-23 Unknown nullFlavo Comprehensi d141 6de9-9 [facility] 16:01:00 16:01:00 r ve Heart 859-4384-b l Care PA 439-c226d3 [facility] nn 303e6f 2012-12-23 2012-12-23 Unknown nullFlavo Comprehensi 6642 365e-2 [facility] 16:01:00 16:01:00 r ve Heart 3a3-91f7-w l Care PA cd0-09f97f [facility] nn f59c5f 2012-12-23 2012-12-23 Unknown nullFlavo Comprehensi 16fe 1358-a [facility] 16:01:00 16:01:00 r ve Heart 39b-4182-9 l Care PA 1db-58e250 [facility] nn 8573ba 2012-12-23 2012-12-23 Unknown nullFlavo Comprehensi 989a ac5f-a [facility] 16:01:00 16:01:00 r ve Heart be8-408c-8 l Care PA 1ff-5a2091 [facility] nn 0c5e44 2012-12-23 2012-12-23 Unknown nullFlavo Comprehensi a895 afa7-7 [facility] 16:01:00 16:01:00 r ve Heart p95-508w-5 l Care PA ce7-232528 [facility] nn 6cf9c9 2012-12-23 2012-12-23 Unknown nullFlavo Comprehensi 5d3d 3758-a Memoria 16:01:00 16:01:00 r ve Heart 661-4956-8 l Care PA 795-088d3f [facility] nn d4ef72 2012-12-23 2012-12-23 Unknown nullFlavo Comprehensi a884 3be1-c [facility] 16:01:00 16:01:00 r ve Heart f4r-0a16-d l Care PA 84c-825d39 [facility] nn 0u3949 2012-12-23 2012-12-23 Unknown nullFlavo Comprehensi 4f96 06a1-3 [facility] 16:01:00 16:01:00 r ve Heart 7j9-6818-y l Care PA 0ca-0nx763 [facility] nn 389579 6353-04-12 2012-12-23 Unknown nullFlavo Comprehensi 6d11 1f6a-0 [facility]oria 16:01:00 16:01:00 r ve Heart bfd-414a-a l Care PA t88-h604sh [facility] nn 7c1208 2012-12-23 2012-12-23 Unknown nullFlavo Comprehensi 41c6 fdbe-a [facility] 16:01:00 16:01:00 r ve Heart 965-441b-8 l Care PA 36a-54fc92 [facility] nn l8s695 2012-12-23 2012-12-23 Unknown nullFlavo Comprehensi 44c3 3a61-a [facility] 16:01:00 16:01:00 r ve Heart 24e-4847-b l Care PA 212-ae1b3b [facility] nn 89b3f7 2012-12-23 2012-12-23 Unknown nullFlavo Comprehensi 088d 01a0-0 [facility] 16:01:00 16:01:00 r ve Heart ae7-4ce7-8 l Care PA 9a7-71z1zz [facility] nn 3x9353 2012-12-23 2012-12-23 Unknown nullFlavo Comprehensi d141 6de9-9 [facility] 16:01:00 16:01:00 r ve Heart 859-4384-b l Care PA 439-c226d3 [facility] nn 303e6f 2012-12-23 2012-12-23 Unknown nullFlavo Comprehensi 6642 365e-2 [facility] 16:01:00 16:01:00 r ve Heart 2j1-40y4-k l Care PA cd0-09f97f [facility] nn f59c5f 2012-12-23 2012-12-23 Unknown nullFlavo Comprehensi 16fe 1358-a [facility] 16:01:00 16:01:00 r ve Heart 39b-4182-9 l Care PA 1db-51r982 [facility] nn 8573ba 2012-12-23 2012-12-23 Unknown nullFlavo Comprehensi 989a ac5f-a [facility] 16:01:00 16:01:00 r ve Heart be8-408c-8 l Care PA 1ff-1q9917 [facility] nn 0c5e44 2012-12-23 2012-12-23 Unknown nullFlavo Comprehensi a895 afa7-7 [facility] 16:01:00 16:01:00 r ve Heart x33-038p-2 l Care PA ce7-777677 [facility] nn 6cf9c9 2012-12-23 2012-12-23 Unknown nullFlavo Comprehensi 5d3d 3758-a [facility] 16:01:00 16:01:00 r ve Heart 661-4956-8 l Care PA 795-088d3f [facility] nn d4ef72 2012-12-23 2012-12-23 Unknown nullFlavo Comprehensi a884 3be1-c [facility] 16:01:00 16:01:00 r ve Heart i8j-2n30-y l Care PA 84c-825d39 [facility] nn 4z0277 2012-12-23 2012-12-23 Unknown nullFlavo Comprehensi 4f96 06a1-3 [facility] 16:01:00 16:01:00 r ve Heart 4s4-5075-n l Care PA 0ca-7dl496 [facility] nn 119305 1121-04-12 2012-12-23 Unknown nullFlavo Comprehensi 6d11 1f6a-0 [facility] 16:01:00 16:01:00 r ve Heart bfd-414a-a l Care PA z20-n544wf [facility] nn 4z1907 2012-12-23 2012-12-23 Unknown nullFlavo Comprehensi 7f24 e44e-8 [facility] 15:01:00 15:01:00 r ve Heart c60-940g-f l Care PA 18c-7b8fa7 [facility] nn dc80a0 2012-12-23 2012-12-23 Unknown nullFlavo Comprehensi e674 6877-d [facility] 15:01:00 15:01:00 r ve Heart 2u1-4wp3-3 l Care PA 731-629c50 [facility] nn e60c6c 2012-12-23 2012-12-23 Unknown nullFlavo Comprehensi a7c2 54c0-3 [facility] 15:01:00 15:01:00 r ve Heart 3q2-0713-0 l Care PA df2-3a4ae8 [facility] nn a77f27 2012-12-23 2012-12-23 Unknown nullFlavo Comprehensi 93b9 8b7b-c [facility] 15:01:00 15:01:00 r ve Heart dbc-469c-a l Care PA g5a-l0dciq [facility] nn 06f37e 2012-12-23 2012-12-23 Unknown nullFlavo Comprehensi 8e3f d169-9 [facility] 15:01:00 15:01:00 r ve Heart 856-46c0-a l Care PA 12b-6d656e [facility] nn l0g517 2012-12-23 2012-12-23 Unknown nullFlavo Comprehensi 041f 1058-b [facility] 15:01:00 15:01:00 r ve Heart 8ae-4c36-8 l Care PA a95-wc637g [facility] nn is999p 2012-12-23 2012-12-23 Unknown nullFlavo Comprehensi b229 b4e2-1 [facility] 15:01:00 15:01:00 r ve Heart 608-41bd-a l Care PA 9d2-90yz8a [facility] nn c662b0 2012-12-23 2012-12-23 Unknown nullFlavo Comprehensi a1ac 53e6-5 [facility] 15:01:00 15:01:00 r ve Heart 136-481e-b l Care PA 313-t1i087 [facility] nn 8d03af 2012-12-23 2012-12-23 Unknown nullFlavo Comprehensi 49b2 899b-3 [facility] 15:01:00 15:01:00 r ve Heart 93f-4a56-b l Care PA i30-zj01l1 [facility] nn i85071 2012-12-23 2012-12-23 Unknown nullFlavo Comprehensi 903e 848f-7 [facility] 15:01:00 15:01:00 r ve Heart 672-4d08-9 l Care PA ab7-ba9ea8 [facility] nn 0v867c 2012-12-23 2012-12-23 Unknown nullFlavo Comprehensi 4bf5 332a-d [facility] 15:01:00 15:01:00 r ve Heart 3e9-70w0-q l Care PA 634-i4e695 [facility] nn 2832c4 2012-12-23 2012-12-23 Unknown nullFlavo Comprehensi a08a 9be8-9 [facility] 15:01:00 15:01:00 r ve Heart 674-4877-8 l Care PA 08e-a5ba54 [facility] nn 0d159q 2012-12-23 2012-12-23 Unknown nullFlavo Comprehensi 2385 a0e4-9 [facility] 15:01:00 15:01:00 r ve Heart dbe-46e0-a l Care PA dfb-vk3352 [facility] nn 8d1ae5 2012-12-23 2012-12-23 Unknown nullFlavo Comprehensi 1828 b6f8-7 [facility] 15:01:00 15:01:00 r ve Heart 63d-45fc-8 l Care PA 648-815d7d [facility] nn dccbcf 2012-12-23 2012-12-23 Unknown nullFlavo Comprehensi 87e8 f3ea-9 [facility] 15:01:00 15:01:00 r ve Heart 7c4-4849-o l Care PA ef6-7c77e7 [facility] nn r8r704 2012-12-23 2012-12-23 Unknown nullFlavo Comprehensi 64bc c214-8 [facility] 15:01:00 15:01:00 r ve Heart u9g-4474-6 l Care PA 1v8-q272rq [facility] nn o48011 2012-12-23 2012-12-23 Unknown nullFlavo Comprehensi feae 8e5e-b [facility] 15:01:00 15:01:00 r ve Heart 048-43ce-9 l Care PA 9o1-063x63 [facility] nn 335493 4417-04-12 2012-12-23 Unknown nullFlavo Comprehensi 0306 9b22-7 [facility] 15:01:00 15:01:00 r ve Heart 4a2-73n0-k l Care PA 691-94aa4d [facility] nn 1ba253 2012-12-23 2012-12-23 Unknown nullFlavo Comprehensi be25 abaf-5 [facility] 15:01:00 15:01:00 r ve Heart 263-40c1-a l Care PA 8d7-522436 [facility] nn 73a2d9 2012-12-23 2012-12-23 Unknown nullFlavo Comprehensi c211 1b3f-f [facility] 15:01:00 15:01:00 r ve Heart 2a0-7753-4 l Care PA 57e-6fd2fa [facility] nn 948fde 2012-12-23 2012-12-23 Unknown nullFlavo Comprehensi 80ea eebc-8 [facility] 15:01:00 15:01:00 r ve Heart cf4-4f82-9 l Care PA ee3-37z212 [facility] nn b85559 2012-12-23 2012-12-23 Unknown nullFlavo Comprehensi 6a21 924f-1 [facility] 15:01:00 15:01:00 r ve Heart 6ef-4122-9 l Care PA 84a-811bf0 [facility] nn 6tc245 2012-12-23 2012-12-23 Unknown nullFlavo Comprehensi 866b 9438-7 [facility] 15:01:00 15:01:00 r ve Heart 705-4798-b l Care PA o12-za9957 [facility] nn cc43ad 2012-12-23 2012-12-23 Unknown nullFlavo Comprehensi 1535 6332-3 [facility] 15:01:00 15:01:00 r ve Heart 8w4-59hj-6 l Care PA 7ec-19dc9e [facility] nn i0j287 2012-12-23 2012-12-23 Unknown nullFlavo Comprehensi 7f24 e44e-8 [facility] 15:01:00 15:01:00 r ve Heart t59-758z-q l Care PA 18c-7b8fa7 [facility] nn dc80a0 2012-12-23 2012-12-23 Unknown nullFlavo Comprehensi 8e3f d169-9 [facility] 15:01:00 15:01:00 r ve Heart 856-46c0-a l Care PA 12b-5w925x [facility] nn p3e328 2012-12-23 2012-12-23 Unknown nullFlavo Comprehensi e674 6877-d [facility] 15:01:00 15:01:00 r ve Heart 6d2-5dw3-6 l Care PA 731-629c50 [facility] nn e60c6c 2012-12-23 2012-12-23 Unknown nullFlavo Comprehensi 041f 1058-b [facility] 15:01:00 15:01:00 r ve Heart 8ae-4c36-8 l Care PA u28-ja604p [facility] nn oh237l 2012-12-23 2012-12-23 Unknown nullFlavo Comprehensi a7c2 54c0-3 [facility] 15:01:00 15:01:00 [facility] ve Heart 0k8-1747-8 l Care PA df2-3a4ae8 [facility] nn a77f27 2012-12-23 2012-12-23 Unknown nullFlavo Comprehensi 93b9 8b7b-c [facility] 15:01:00 15:01:00 r ve Heart dbc-469c-a l Care PA u6c-j7bclp [facility] nn 06f37e 2012-12-23 2012-12-23 Unknown nullFlavo Comprehensi 87e8 f3ea-9 [facility] 15:01:00 15:01:00 r ve Heart 2m6-3311-q l Care PA ef6-7c77e7 [facility] nn o2f024 2012-12-23 2012-12-23 Unknown nullFlavo Comprehensi 903e 848f-7 [facility] 15:01:00 15:01:00 r ve Heart 672-4d08-9 l Care PA ab7-ba9ea8 [facility] nn 3c208u 2012-12-23 2012-12-23 Unknown nullFlavo Comprehensi b229 b4e2-1 [facility] 15:01:00 15:01:00 r ve Heart 608-41bd-a l Care PA 2o9-75fo2z [facility] nn c662b0 2012-12-23 2012-12-23 Unknown nullFlavo Comprehensi a1ac 53e6-5 [facility] 15:01:00 15:01:00 r ve Heart 136-481e-b l Care PA 313-g7y931 [facility] nn 8d03af 2012-12-23 2012-12-23 Unknown nullFlavo Comprehensi a08a 9be8-9 [facility] 15:01:00 15:01:00 r ve Heart 674-4877-8 l Care PA 08e-a5ba54 [facility] nn 1c056s 2012-12-23 2012-12-23 Unknown nullFlavo Comprehensi 1828 b6f8-7 [facility] 15:01:00 15:01:00 r ve Heart 63d-45fc-8 l Care PA 648-815d7d [facility] nn dccbcf 2012-12-23 2012-12-23 Unknown nullFlavo Comprehensi c211 1b3f-f [facility] 15:01:00 15:01:00 r ve Heart 0l2-6572-3 l Care PA 57e-6fd2fa [facility] nn 948fde 2012-12-23 2012-12-23 Unknown nullFlavo Comprehensi 4bf5 332a-d [facility] 15:01:00 15:01:00 r ve Heart 6u4-93a7-m l Care PA 634-b2t544 [facility] nn 2832c4 2012-12-23 2012-12-23 Unknown nullFlavo Comprehensi 2385 a0e4-9 [facility] 15:01:00 15:01:00 r ve Heart dbe-46e0-a l Care PA dfb-pt3171 [facility] nn 8d1ae5 2012-12-23 2012-12-23 Unknown nullFlavo Comprehensi 49b2 899b-3 [facility] 15:01:00 15:01:00 r ve Heart 93f-4a56-b l Care PA p84-ts02j6 [facility] nn z15407 2012-12-23 2012-12-23 Unknown nullFlavo Comprehensi 0306 9b22-7 [facility] 15:01:00 15:01:00 [facility] ve Heart 2l9-01o9-k l Care PA 691-94aa4d [facility] nn 0jq039 2012-12-23 2012-12-23 Unknown nullFlavo Comprehensi be25 abaf-5 [facility] 15:01:00 15:01:00 r ve Heart 263-40c1-a l Care PA 9a0-959541 [facility] nn 73a2d9 2012-12-23 2012-12-23 Unknown nullFlavo Comprehensi feae 8e5e-b [facility] 15:01:00 15:01:00 [facility] ve Heart 048-43ce-9 l Care PA 0c4-278j94 [facility] nn 942206 0553-04-12 2012-12-23 Unknown nullFlavo Comprehensi 6a21 924f-1 [facility] 15:01:00 15:01:00 r ve Heart 6ef-4122-9 l Care PA 84a-811bf0 [facility] nn 7cv873 2012-12-23 2012-12-23 Unknown nullFlavo Comprehensi 64bc c214-8 [facility] 15:01:00 15:01:00 r ve Heart k2k-7353-7 l Care PA 0r4-l488vp [facility] nn b00408 2012-12-23 2012-12-23 Unknown nullFlavo Comprehensi 80ea eebc-8 [facility] 15:01:00 15:01:00 r ve Heart cf4-4f82-9 l Care PA ee3-76t004 [facility] nn u17993 2012-12-23 2012-12-23 Unknown nullFlavo Comprehensi 866b 9438-7 [facility] 15:01:00 15:01:00 r ve Heart 705-4798-b l Care PA h41-cb5800 [facility] nn cc43ad 2012-12-23 2012-12-23 Unknown nullFlavo Comprehensi 1535 6332-3 [facility] 15:01:00 15:01:00 r ve Heart 1p8-94dj-5 l Care PA 7ec-19dc9e [facility] nn b6h316 2012-12-23 2012-12-23 Unknown nullFlavo Comprehensi 7f24 e44e-8 [facility] 15:01:00 15:01:00 r ve Heart i02-752a-r l Care PA 18c-7b8fa7 [facility] nn dc80a0 2012-12-23 2012-12-23 Unknown nullFlavo Comprehensi 8e3f d169-9 [facility] 15:01:00 15:01:00 r ve Heart 856-46c0-a l Care PA 12b-9r260m [facility] nn e1l069 2012-12-23 2012-12-23 Unknown nullFlavo Comprehensi e674 6877-d [facility] 15:01:00 15:01:00 r ve Heart 3u1-3vj1-7 l Care PA 731-629c50 [facility] nn e60c6c 2012-12-23 2012-12-23 Unknown nullFlavo Comprehensi 041f 1058-b [facility] 15:01:00 15:01:00 r ve Heart 8ae-4c36-8 l Care PA s22-je309e [facility] nn ov073a 2012-12-23 2012-12-23 Unknown nullFlavo Comprehensi a7c2 54c0-3 [facility] 15:01:00 15:01:00 r ve Heart 6v8-9760-6 l Care PA df2-3a4ae8 [facility] nn a77f27 2012-12-23 2012-12-23 Unknown nullFlavo Comprehensi 93b9 8b7b-c [facility] 15:01:00 15:01:00 r ve Heart dbc-469c-a l Care PA c5k-i6aawz [facility] nn 06f37e 2012-12-23 2012-12-23 Unknown nullFlavo Comprehensi 87e8 f3ea-9 [facility] 15:01:00 15:01:00 r ve Heart 6g7-4566-o l Care PA ef6-7c77e7 [facility] nn x6u742 2012-12-23 2012-12-23 Unknown nullFlavo Comprehensi 903e 848f-7 [facility] 15:01:00 15:01:00 r ve Heart 672-4d08-9 l Care PA ab7-ba9ea8 [facility] nn 1w361t 2012-12-23 2012-12-23 Unknown nullFlavo Comprehensi b229 b4e2-1 [facility] 15:01:00 15:01:00 r ve Heart 608-41bd-a l Care PA 1q6-38lo7k [facility] nn c662b0 2012-12-23 2012-12-23 Unknown nullFlavo Comprehensi a1ac 53e6-5 [facility] 15:01:00 15:01:00 r ve Heart 136-481e-b l Care PA 313-f2g938 [facility] nn 8d03af 2012-12-23 2012-12-23 Unknown nullFlavo Comprehensi a08a 9be8-9 [facility] 15:01:00 15:01:00 r ve Heart 674-4877-8 l Care PA 08e-a5ba54 [facility] nn 8y973f 2012-12-23 2012-12-23 Unknown nullFlavo Comprehensi 1828 b6f8-7 [facility] 15:01:00 15:01:00 r ve Heart 63d-45fc-8 l Care PA 648-815d7d [facility] nn dccbcf 2012-12-23 2012-12-23 Unknown nullFlavo Comprehensi c211 1b3f-f [facility] 15:01:00 15:01:00 r ve Heart 9y8-9217-1 l Care PA 57e-6fd2fa [facility] nn 948fde 2012-12-23 2012-12-23 Unknown nullFlavo Comprehensi 4bf5 332a-d [facility] 15:01:00 15:01:00 [facility] ve Heart 1l0-68w6-g l Care PA 634-f9b291 [facility] nn 2832c4 2012-12-23 2012-12-23 Unknown nullFlavo Comprehensi 2385 a0e4-9 [facility] 15:01:00 15:01:00 r ve Heart dbe-46e0-a l Care PA dfb-zt9468 [facility] nn 8d1ae5 2012-12-23 2012-12-23 Unknown nullFlavo Comprehensi 49b2 899b-3 [facility] 15:01:00 15:01:00 r ve Heart 93f-4a56-b l Care PA a70-rv71g3 [facility] nn w99629 2012-12-23 2012-12-23 Unknown nullFlavo Comprehensi 0306 9b22-7 [facility] 15:01:00 15:01:00 r ve Heart 8e3-30v0-w l Care PA 691-94aa4d [facility] nn 0pz481 2012-12-23 2012-12-23 Unknown nullFlavo Comprehensi be25 abaf-5 [facility] 15:01:00 15:01:00 r ve Heart 263-40c1-a l Care PA 0s9-440545 [facility] nn 73a2d9 2012-12-23 2012-12-23 Unknown nullFlavo Comprehensi feae 8e5e-b [facility] 15:01:00 15:01:00 r ve Heart 048-43ce-9 l Care PA 0o6-213i14 [facility] nn 541248 3898-04-12 2012-12-23 Unknown nullFlavo Comprehensi 6a21 924f-1 [facility] 15:01:00 15:01:00 r ve Heart 6ef-4122-9 l Care PA 84a-811bf0 [facility] nn 6tj975 2012-12-23 2012-12-23 Unknown nullFlavo Comprehensi 64bc c214-8 [facility] 15:01:00 15:01:00 r ve Heart t4l-5371-8 l Care PA 7a6-v570ed [facility] nn v82015 2012-12-23 2012-12-23 Unknown nullFlavo Comprehensi 80ea eebc-8 [facility] 15:01:00 15:01:00 r ve Heart cf4-4f82-9 l Care PA ee3-49g364 [facility] nn f08911 2012-12-23 2012-12-23 Unknown nullFlavo Comprehensi 866b 9438-7 [facility] 15:01:00 15:01:00 r ve Heart 705-4798-b l Care PA t14-wp9094 [facility] nn cc43ad 2012-12-23 2012-12-23 Unknown nullFlavo Comprehensi 1535 6332-3 [facility] 15:01:00 15:01:00 r ve Heart 9c4-83fs-1 l Care PA 7ec-19dc9e [facility] nn p4u772 2012-12-23 2012-12-23 Outpatient Comprehen Comprehensi 2 71763 [facility] 10:01:00 10:01:00 sive ve [facility] alWor ut Heart Care PA Care PA 2012-12-23 2012-12-23 Outpatient Comprehen Comprehensi 2 26367 [facility]inic 10:01:00 10:01:00 [facility] ve [facility] alWor ut Heart Care PA Care PA 2012-12-22 2012-12-22 Unknown nullFlavo Comprehensi 2775 d282-4 [facility] 16:30:00 16:30:00 r ve Heart 552-47fc-9 l Care PA cb0-kl4735 [facility] nn 54a9ea 2012-12-22 2012-12-22 Unknown nullFlavo Comprehensi c724 3faf-9 [facility] 16:30:00 16:30:00 r ve Heart 3ad-499a-8 l Care PA 3cb-7f5cf8 [facility] nn 73c7ed 2012-12-22 2012-12-22 Unknown nullFlavo Comprehensi 11a5 d98d-d [facility] 16:30:00 16:30:00 r ve Heart n79-777n-k l Care PA 9m8-46c78r [facility] nn 4x1363 2012-12-22 2012-12-22 Unknown nullFlavo Comprehensi cd08 afac-e [facility] 16:30:00 16:30:00 r ve Heart v90-0z34-j l Care PA u7t-g66900 [facility] nn 3b6c3b 2012-12-22 2012-12-22 Unknown nullFlavo Comprehensi 88dc f901-2 [facility] 16:30:00 16:30:00 r ve Heart 682-4719-9 l Care PA o6a-15pu5k [facility] nn 03fe52 2012-12-22 2012-12-22 Unknown nullFlavo Comprehensi ee7d e2a0-2 [facility] 16:30:00 16:30:00 r ve Heart a8j-9k46-6 l Care PA dd6-21b48a [facility] nn c37126 2012-12-22 2012-12-22 Unknown nullFlavo Comprehensi b39e 51ec-c [facility] 16:30:00 16:30:00 r ve Heart aa3-4ca9-b l Care PA 0o6-418e34 [facility] nn 9351e6 2012-12-22 2012-12-22 Unknown nullFlavo Comprehensi 5846 0feb-6 [facility] 16:30:00 16:30:00 r ve Heart l81-1572-i l Care PA 5fc-2cbdad [facility] nn 65b55a 2012-12-22 2012-12-22 Unknown nullFlavo Comprehensi 70f8 f8a9-e [facility] 16:30:00 16:30:00 r ve Heart 7aa-476e-9 l Care PA 612-e5b5b2 [facility] nn 5999a4 2012-12-22 2012-12-22 Unknown nullFlavo Comprehensi 42fc 4f11-8 [facility] 16:30:00 16:30:00 r ve Heart ccf-4585-a l Care PA 4cc-db6c71 [facility] nn 13j464 2012-12-22 2012-12-22 Unknown nullFlavo Comprehensi 8794 3ae4-f [facility] 16:30:00 16:30:00 r ve Heart 1q6-53p8-5 l Care PA 45c-08z669 [facility] nn 6ba0a3 2012-12-22 2012-12-22 Unknown nullFlavo Comprehensi 690c ad11-f [facility] 16:30:00 16:30:00 r ve Heart 359-48d3-b l Care PA 144-e0dceb [facility] nn a415a7 2012-12-22 2012-12-22 Unknown nullFlavo Comprehensi 2775 d282-4 [facility] 16:30:00 16:30:00 r ve Heart 552-47fc-9 l Care PA cb0-pd2657 [facility] nn 54a9ea 2012-12-22 2012-12-22 Unknown nullFlavo Comprehensi cd08 afac-e [facility] 16:30:00 16:30:00 r ve Heart v60-7g26-i l Care PA u5z-x09308 [facility] nn 3b6c3b 2012-12-22 2012-12-22 Unknown nullFlavo Comprehensi 88dc f901-2 [facility] 16:30:00 16:30:00 r ve Heart 682-4719-9 l Care PA w0r-68tv1f [facility] nn 03fe52 2012-12-22 2012-12-22 Unknown nullFlavo Comprehensi c724 3faf-9 [facility] 16:30:00 16:30:00 r ve Heart 3ad-499a-8 l Care PA 3cb-7f5cf8 [facility] nn 73c7ed 2012-12-22 2012-12-22 Unknown nullFlavo Comprehensi 11a5 d98d-d [facility] 16:30:00 16:30:00 r ve Heart l38-218v-s l Care PA 6v2-87n46u [facility] nn 3x5989 2012-12-22 2012-12-22 Unknown nullFlavo Comprehensi ee7d e2a0-2 [facility] 16:30:00 16:30:00 r ve Heart q7d-6d50-6 l Care PA dd6-21b48a [facility] nn w85145 2012-12-22 2012-12-22 Unknown nullFlavo Comprehensi 690c ad11-f [facility] 16:30:00 16:30:00 r ve Heart 359-48d3-b l Care PA 144-e0dceb [facility] nn a415a7 2012-12-22 2012-12-22 Unknown nullFlavo Comprehensi 42fc 4f11-8 [facility] 16:30:00 16:30:00 r ve Heart ccf-4585-a l Care PA 4cc-db6c71 [facility] nn 22c109 2012-12-22 2012-12-22 Unknown nullFlavo Comprehensi 8794 3ae4-f [facility] 16:30:00 16:30:00 r ve Heart 9c0-47e4-6 l Care PA 45c-71e089 [facility] nn 6ba0a3 2012-12-22 2012-12-22 Unknown nullFlavo Comprehensi b39e 51ec-c [facility] 16:30:00 16:30:00 r ve Heart aa3-4ca9-b l Care PA 9r4-670f50 [facility] nn 9351e6 2012-12-22 2012-12-22 Unknown nullFlavo Comprehensi 5846 0feb-6 [facility] 16:30:00 16:30:00 r ve Heart u35-7402-v l Care PA 5fc-2cbdad [facility] nn 65b55a 2012-12-22 2012-12-22 Unknown nullFlavo Comprehensi 70f8 f8a9-e [facility] 16:30:00 16:30:00 r ve Heart 7aa-476e-9 l Care PA 612-e5b5b2 [facility] nn 5999a4 2012-12-22 2012-12-22 Unknown nullFlavo Comprehensi 2775 d282-4 [facility] 16:30:00 16:30:00 r ve Heart 552-47fc-9 l Care PA cb0-og1382 [facility] nn 54a9ea 2012-12-22 2012-12-22 Unknown nullFlavo Comprehensi cd08 afac-e [facility] 16:30:00 16:30:00 r ve Heart s30-9t22-o l Care PA y7b-t58328 [facility] nn 3b6c3b 2012-12-22 2012-12-22 Unknown nullFlavo Comprehensi 88dc f901-2 [facility] 16:30:00 16:30:00 r ve Heart 682-4719-9 l Care PA z0z-15pm4q [facility] nn 03fe52 2012-12-22 2012-12-22 Unknown nullFlavo Comprehensi c724 3faf-9 [facility] 16:30:00 16:30:00 r ve Heart 3ad-499a-8 l Care PA 3cb-7f5cf8 [facility] nn 73c7ed 2012-12-22 2012-12-22 Unknown nullFlavo Comprehensi 11a5 d98d-d [facility] 16:30:00 16:30:00 r ve Heart z42-549v-v l Care PA 4a0-19t60m [facility] nn 9q3351 2012-12-22 2012-12-22 Unknown nullFlavo Comprehensi ee7d e2a0-2 [facility] 16:30:00 16:30:00 r ve Heart j3k-2q55-3 l Care PA dd6-21b48a [facility] nn i73913 2012-12-22 2012-12-22 Unknown nullFlavo Comprehensi 690c ad11-f [facility] 16:30:00 16:30:00 r ve Heart 359-48d3-b l Care PA 144-e0dceb [facility] nn a415a7 2012-12-22 2012-12-22 Unknown nullFlavo Comprehensi 42fc 4f11-8 [facility] 16:30:00 16:30:00 r ve Heart ccf-4585-a l Care PA 4cc-db6c71 [facility] nn 14i971 2012-12-22 2012-12-22 Unknown nullFlavo Comprehensi 8794 3ae4-f [facility] 16:30:00 16:30:00 r ve Heart 1e5-43a9-9 l Care PA 45c-87g144 [facility] nn 6ba0a3 2012-12-22 2012-12-22 Unknown nullFlavo Comprehensi b39e 51ec-c [facility] 16:30:00 16:30:00 [facility] aa3-4ca9-b l Care PA [id number] Haylee nn [id number] 2012-12-22 2012-12-22 Unknown nullFlavo Comprehensi 5846 0feb-6 [facility] 16:30:00 16:30:00 [facility] e52-4761-x l Care PA 5fc-2cbdad Haylee nn 65b55a 2012-12-22 2012-12-22 Unknown nullFlavo Comprehensi 70f8 f8a9-e [facility] 16:30:00 16:30:00 [facility] 7aa-476e-9 l Care PA 612-e5b5b2 Haylee nn 5999a4 2012-12-22 2012-12-22 Unknown nullFlavo Comprehensi 9c9d 5009-6 [facility] 15:30:00 15:30:00 [facility] ad5-4d64-b l Care PA 18c-0ea44c Haylee nn [id number] 2012-12-22 2012-12-22 Unknown nullFlavo Comprehensi fa1a bd01-6 [facility] 15:30:00 15:30:00 [facility] dc5-4969-8 l Care PA 6ca-cd20cd Haylee nn [id number] 2324-04-11 2012-12-22 Unknown nullFlavo Comprehensi 6f73 b777-9 [facility]oria 15:30:00 15:30:00 [facility] b01-873w-t l Care PA 127-efab70 Haylee nn 04b212 2012-12-22 2012-12-22 Unknown nullFlavo Comprehensi 5b3b 71ae-f [facility] 15:30:00 15:30:00 [facility] beb-4c88-9 l Care PA 15b-718961 Haylee nn 1ffd33 2012-12-22 2012-12-22 Unknown nullFlavo Comprehensi 76e6 e079-0 [facility] 15:30:00 15:30:00 [facility] 08e-46ec-8 l Care PA 75a-8e42fd Haylee nn d7b9aa 2012-12-22 2012-12-22 Unknown nullFlavo Comprehensi d084 93f2-8 [facility] 15:30:00 15:30:00 [facility] 9d2-8f97-p l Care PA a91-93f875 Haylee nn cf06c8 2012-12-22 2012-12-22 Unknown nullFlavo Comprehensi 5b93 458f-b [facility] 15:30:00 15:30:00 [facility] 474-46c1-b l Care PA 33d-eafd77 Haylee nn 5c0440 2012-12-22 2012-12-22 Unknown nullFlavo Comprehensi a190 5968-2 [facility]oria 15:30:00 15:30:00 [facility] 2de-4339-b l Care PA 512-6ez963 Haylee nn 764fe4 2012-12-22 2012-12-22 Unknown nullFlavo Comprehensi f4a1 34aa-6 [facility] 15:30:00 15:30:00 [facility] y47-1374-x l Care PA 914-f56c49 Haylee nn [id number] 2012-12-22 2012-12-22 Unknown nullFlavo Comprehensi ee58 bd7c-8 [facility] 15:30:00 15:30:00 [facility] 4cf-4d47-a l Care PA dc9-286fd7 Haylee nn a0f1b9 2012-12-22 2012-12-22 Unknown nullFlavo Comprehensi d974 86d3-5 [facility] 15:30:00 15:30:00 [facility] Heart 46b-42c2-8 l Care PA 004-bf48db Haylee nn 5aa8eb 2012-12-22 2012-12-22 Unknown nullFlavo Comprehensi a0b3 9c86-9 [facility] 15:30:00 15:30:00 [facility] cd7-499f-9 l Care PA bd7-x0h104 Haylee nn efa5db 2012-12-22 2012-12-22 Unknown nullFlavo Comprehensi 6044 de7d-5 [facility] 15:30:00 15:30:00 [facility] Heart 018-4a89-8 l Care PA 453-1dcc15 Haylee nn ey6495 2012-12-22 2012-12-22 Unknown nullFlavo Comprehensi eb9a 6c2b-c [facility] 15:30:00 15:30:00 [facility] ve Heart c79-0q44-8 l Care PA 03c-z1z600 [facility] nn [id number] 1259-04-11 2012-12-22 Unknown nullFlavo Comprehensi 57b5 b8c4-5 [facility]oria 15:30:00 15:30:00 [facility] ve Heart 324-43a3-a l Care PA [id number] Haylee nn 8a740a 2012-12-22 2012-12-22 Unknown nullFlavo Comprehensi 3322 8280-0 [facility]oria 15:30:00 15:30:00 [facility] ve Heart 2d0-093b-k l Care PA p9s-v70r38 Haylee nn 6163b2 2012-12-22 2012-12-22 Unknown nullFlavo Comprehensi b6f4 cc37-6 [facility]oria 15:30:00 15:30:00 [facility] ve Heart bff-40ee-9 l Care PA m96-510aza [facility] nn 7e4e06 2012-12-22 2012-12-22 Unknown nullFlavo Comprehensi b2e8 ed4b-0 [facility]oria 15:30:00 15:30:00 [facility] ve Heart f77-5138-a l Care PA 782-831b6d [facility] nn 3ed89d 2012-12-22 2012-12-22 Unknown nullFlavo Comprehensi 3e5c 92cd-b [facility] 15:30:00 15:30:00 [facility] ve Heart aa9-4bf6-8 l Care PA j01-z84429 [facility] nn 127ae2 2012-12-22 2012-12-22 Unknown nullFlavo Comprehensi 36cf 1762-4 [facility]oria 15:30:00 15:30:00 [facility] ve Heart 579-412a-8 l Care PA 0t3-1eml01 [facility] nn 08df88 2012-12-22 2012-12-22 Unknown nullFlavo Comprehensi 2bcd 86a4-7 [facility]oria 15:30:00 15:30:00 [facility] ve Heart 418-47a9-a l Care PA u6n-163z1p [facility] nn 5d0b93 2012-12-22 2012-12-22 Unknown nullFlavo Comprehensi b87c 923d-9 [facility]oria 15:30:00 15:30:00 r ve Heart 278-4818-b l Care PA 052-236cb3 [facility] nn v7c204 2012-12-22 2012-12-22 Unknown nullFlavo Comprehensi 80d7 69ff-9 [facility]oria 15:30:00 15:30:00 [facility] ve Heart v80-383k-c l Care PA 86a-5715c7 [facility] nn 403b38 2012-12-22 2012-12-22 Unknown nullFlavo Comprehensi 2bcd 86a4-7 [facility]oria 15:30:00 15:30:00 [facility] ve Heart 418-47a9-a l Care PA s2l-475w5j [facility] nn 5d0b93 2012-12-22 2012-12-22 Unknown nullFlavo Comprehensi 6f73 b777-9 [facility]oria 15:30:00 15:30:00 [facility] ve Heart x41-555z-s l Care PA 127-efab70 Haylee nn 32u589 2012-12-22 2012-12-22 Unknown nullFlavo Comprehensi 76e6 e079-0 [facility]oria 15:30:00 15:30:00 [facility] ve Heart 08e-46ec-8 l Care PA 75a-8e42fd Haylee nn d7b9aa 2012-12-22 2012-12-22 Unknown nullFlavo Comprehensi d974 86d3-5 [facility] 15:30:00 15:30:00 [facility] ve Heart 46b-42c2-8 l Care PA 004-bf48db Haylee nn 5aa8eb 2012-12-22 2012-12-22 Unknown nullFlavo Comprehensi fa1a bd01-6 [facility] 15:30:00 15:30:00 [facility] ve Heart dc5-4969-8 l Care PA 6ca-cd20cd Haylee nn [id number] 6942-04-11 2012-12-22 Unknown nullFlavo Comprehensi 5b3b 71ae-f [facility] 15:30:00 15:30:00 [facility] Heart beb-4c88-9 l Care PA 15b-874763 Haylee nn 1ffd33 2012-12-22 2012-12-22 Unknown nullFlavo Comprehensi b87c 923d-9 [facility] 15:30:00 15:30:00 r ve Heart 278-4818-b l Care PA [id number] Haylee nn [id number] 2012-12-22 2012-12-22 Unknown nullFlavo Comprehensi f4a1 34aa-6 [facility] 15:30:00 15:30:00 r ve Heart f68-1651-e l Care PA 914-f56c49 Haylee nn [id number] 2012-12-22 2012-12-22 Unknown nullFlavo Comprehensi ee58 bd7c-8 [facility] 15:30:00 15:30:00 r ve Heart 4cf-4d47-a l Care PA dc9-286fd7 Haylee nn a0f1b9 2012-12-22 2012-12-22 Unknown nullFlavo Comprehensi a190 5968-2 [facility] 15:30:00 15:30:00 r ve Heart 2de-4339-b l Care PA 512-5fb886 Haylee nn 764fe4 2012-12-22 2012-12-22 Unknown nullFlavo Comprehensi 9c9d 5009-6 [facility] 15:30:00 15:30:00 r ve Heart ad5-4d64-b l Care PA 18c-0ea44c Haylee nn [id number] 2012-12-22 2012-12-22 Unknown nullFlavo Comprehensi eb9a 6c2b-c [facility] 15:30:00 15:30:00 r ve Heart l19-8r64-7 l Care PA [id number]-z4c056 Haylee nn [id number] 2139-04-11 2012-12-22 Unknown nullFlavo Comprehensi 5b93 458f-b [facility] 15:30:00 15:30:00 r ve Heart 474-46c1-b l Care PA 33d-eafd77 Haylee nn [id number] 2012-12-22 2012-12-22 Unknown nullFlavo Comprehensi 6044 de7d-5 [facility] 15:30:00 15:30:00 r ve Heart 018-4a89-8 l Care PA 453-1dcc15 Haylee nn [id number] 2012-12-22 2012-12-22 Unknown nullFlavo Comprehensi 57b5 b8c4-5 [facility] 15:30:00 15:30:00 r ve Heart 324-43a3-a l Care PA [phone] [facility] nn [id number] 2012-12-22 2012-12-22 Unknown nullFlavo Comprehensi 3322 8280-0 [facility] 15:30:00 15:30:00 r ve Heart 3w5-636h-s l Care PA [id number]-o11z37 Haylee nn 6163b2 2012-12-22 2012-12-22 Unknown nullFlavo Comprehensi b2e8 ed4b-0 [facility] 15:30:00 15:30:00 r ve Heart h24-1569-q l Care PA 782-831b6d Haylee nn 3ed89d 2012-12-22 2012-12-22 Unknown nullFlavo Comprehensi 3e5c 92cd-b [facility] 15:30:00 15:30:00 r ve Heart aa9-4bf6-8 l Care PA c88-[id number] Haylee nn 127ae2 2012-12-22 2012-12-22 Unknown nullFlavo Comprehensi a0b3 9c86-9 [facility] 15:30:00 15:30:00 r ve Heart cd7-499f-9 l Care PA bd7-z8r436 Haylee nn efa5db 2012-12-22 2012-12-22 Unknown nullFlavo Comprehensi b6f4 cc37-6 [facility] 15:30:00 15:30:00 r ve Heart bff-40ee-9 l Care PA v44-321ivr Haylee nn [id number] 2012-12-22 2012-12-22 Unknown nullFlavo Comprehensi d084 93f2-8 [facility] 15:30:00 15:30:00 r ve Heart 1e8-4d86-h l Care PA c02-90v952 Haylee nn cf06c8 2012-12-22 2012-12-22 Unknown nullFlavo Comprehensi 80d7 69ff-9 [facility] 15:30:00 15:30:00 r ve Heart w37-990a-o l Care PA 86a-5715c7 Haylee nn [id number] 2012-12-22 2012-12-22 Unknown nullFlavo Comprehensi 36cf 1762-4 [facility] 15:30:00 15:30:00 r ve Heart 579-412a-8 l Care PA [id number] Haylee nn 08df88 2012-12-22 2012-12-22 Unknown nullFlavo Comprehensi 2bcd 86a4-7 [facility] 15:30:00 15:30:00 r ve Heart 418-47a9-a l Care PA s6y-090w1l Haylee nn 5d0b93 2012-12-22 2012-12-22 Unknown nullFlavo Comprehensi 6f73 b777-9 [facility] 15:30:00 15:30:00 r ve Heart u30-569p-p l Care PA 127-efab70 Haylee nn [id number] 2012-12-22 2012-12-22 Unknown nullFlavo Comprehensi 76e6 e079-0 [facility] 15:30:00 15:30:00 r ve Heart 08e-46ec-8 l Care PA 75a-8e42fd Haylee nn [id number] 2012-12-22 2012-12-22 Unknown nullFlavo Comprehensi d974 86d3-5 [facility] 15:30:00 15:30:00 r ve Heart 46b-42c2-8 l Care PA 004-bf48db Haylee nn 5aa8eb 2012-12-22 2012-12-22 Unknown nullFlavo Comprehensi fa1a bd01-6 [facility] 15:30:00 15:30:00 r ve Heart dc5-4969-8 l Care PA 6ca-cd20cd Haylee nn [id number] 6191-04-11 2012-12-22 Unknown nullFlavo Comprehensi 5b3b 71ae-f [facility] 15:30:00 15:30:00 r ve Heart beb-4c88-9 l Care PA 15b-417547 [facility] nn 1ffd33 2012-12-22 2012-12-22 Unknown nullFlavo Comprehensi b87c 923d-9 [facility] 15:30:00 15:30:00 r ve Heart 278-4818-b l Care PA 052-236cb3 [facility] nn [id number] 2012-12-22 2012-12-22 Unknown nullFlavo Comprehensi f4a1 34aa-6 [facility] 15:30:00 15:30:00 r ve Heart g46-7358-f l Care PA 914-f56c49 [facility] nn [id number] 2012-12-22 2012-12-22 Unknown nullFlavo Comprehensi ee58 bd7c-8 [facility] 15:30:00 15:30:00 r ve Heart 4cf-4d47-a l Care PA dc9-286fd7 [facility] nn a0f1b9 2012-12-22 2012-12-22 Unknown nullFlavo Comprehensi a190 5968-2 [facility] 15:30:00 15:30:00 r ve Heart 2de-4339-b l Care PA 512-7ni413 [facility] nn 764fe4 2012-12-22 2012-12-22 Unknown nullFlavo Comprehensi 9c9d 5009-6 [facility] 15:30:00 15:30:00 r ve Heart ad5-4d64-b l Care PA 18c-0ea44c [facility] nn [id number] 2012-12-22 2012-12-22 Unknown nullFlavo Comprehensi eb9a 6c2b-c [facility] 15:30:00 15:30:00 r ve Heart f28-9i49-6 l Care PA 03c-k2w050 Haylee nn [id number] 4900-04-11 2012-12-22 Unknown nullFlavo Comprehensi 5b93 458f-b [facility] 15:30:00 15:30:00 r ve Heart 474-46c1-b l Care PA 33d-eafd77 Haylee nn [id number] 2012-12-22 2012-12-22 Unknown nullFlavo Comprehensi 6044 de7d-5 [facility] 15:30:00 15:30:00 r ve Heart 018-4a89-8 l Care PA 453-1dcc15 Haylee nn [id number] 2012-12-22 2012-12-22 Unknown nullFlavo Comprehensi 57b5 b8c4-5 [facility] 15:30:00 15:30:00 r ve Heart 324-43a3-a l Care PA 324-234015 Haylee nn [id number] 2012-12-22 2012-12-22 Unknown nullFlavo Comprehensi 3322 8280-0 [facility] 15:30:00 15:30:00 r ve Heart 4n8-901y-t l Care PA s2o-o92s82 Haylee nn 6163b2 2012-12-22 2012-12-22 Unknown nullFlavo Comprehensi b2e8 ed4b-0 [facility] 15:30:00 15:30:00 r ve Heart i16-2187-f l Care PA 782-831b6d Haylee nn 3ed89d 2012-12-22 2012-12-22 Unknown nullFlavo Comprehensi 3e5c 92cd-b [facility] 15:30:00 15:30:00 r ve Heart aa9-4bf6-8 l Care PA q95-v84511 Haylee nn 127ae2 2012-12-22 2012-12-22 Unknown nullFlavo Comprehensi a0b3 9c86-9 [facility] 15:30:00 15:30:00 r ve Heart cd7-499f-9 l Care PA bd7-x7y486 Haylee nn efa5db 2012-12-22 2012-12-22 Unknown nullFlavo Comprehensi b6f4 cc37-6 [facility] 15:30:00 15:30:00 r ve Heart bff-40ee-9 l Care PA z76-407omg Haylee nn 7e4e06 2012-12-22 2012-12-22 Unknown nullFlavo Comprehensi d084 93f2-8 [facility] 15:30:00 15:30:00 r ve Heart 7h2-1l03-x l Care PA c43-71i146 Haylee nn cf06c8 2012-12-22 2012-12-22 Unknown nullFlavo Comprehensi 80d7 69ff-9 [facility] 15:30:00 15:30:00 r ve Heart q46-197s-f l Care PA 86a-5715c7 Haylee nn 403b38 2012-12-22 2012-12-22 Unknown nullFlavo Comprehensi 36cf 1762-4 [facility] 15:30:00 15:30:00 r ve Heart 579-412a-8 l Care PA 2y9-3yat61 Haylee nn 08df88 2012-12-22 2012-12-22 Outpatient Comprehen Comprehensi 2 34466 [facility]inic 10:30:00 10:30:00 sive ve Heart alWor ut Heart Care PA Care PA 2012-12-22 2012-12-22 Outpatient Comprehen Comprehensi 2 08482 [facility]Clinic 10:30:00 10:30:00 sive ve Heart alWor ut Heart Care PA Care PA Results Test Description Test Time Test Comments Results Result Comments Source TROPONIN I 2023-01-13 06:22:24 Test Item Value Reference Range Interpretation Comme nts TROPONIN I (test code = 9906334212) 0.003 ng/mL <=0.034 VERONICA (test code = VERONICA) Reference (Normal) Range (defined by the 99th percentile reference limit): <= 0.034 ng/mL Note: Cardiac troponin begins to rise 3-4 hours after the onset of ischemia. Repeat in 4-6 hours if the sample was drawn within 3-4 hours of the onset of the symptom and found normal. Diagnosis of myocardial injury is made with acute changes in cTn concentrations with at least one serial sample above the 99th percentile upper reference limit (URL), taken together with the patient's clinical presentation. Biotin has been reported to cause a negative bias, interpret results relative to patient's use of biotin. Lab Interpretation (test code = Normal 98244-9) [id number] 06:19:01 Test Item Value Reference Range Interpretation Comments NT-proBNP (test code = 267 pg/mL <=450 [id number]) VERONICA (test code = VERONICA) Biotin has been reported to cause a negative bias, interpret results relative to patient's use of biotin. Lab Interpretation (test Normal code = 72788-5) [facility]OL[facility] (30309)2023-01-13 06:10:21 Test Item Value Reference Range Interpretation Comments NA (test code = 138 mmol/L 135-145 5058483033) K (test code = 4.1 mmol/L 3.5-5.0 0718191354) CL (test code = 99 mmol/L 98-108 4259244476) CO2 TOTAL (test code = 30 mmol/L 23-31 7261128386) AGAP (test code = 9 2-16 7131802398) BUN (test code = 15 mg/dL 7-23 4613696987) GLUCOSE (test code = 164 mg/dL 70-110 H 7908996772) CREATININE (test code = 0.62 mg/dL 0.50-1.04 5327429913) TOTAL BILI (test code = 0.6 mg/dL 0.1-1.7 1761380320) CALCIUM (test code = 9.1 mg/dL 8.6-10.6 4216009851) T PROTEIN (test code = 6.4 g/dL 6.3-8.2 9489843050) ALBUMIN (test code = 3.7 g/dL 3.5-5.0 2528103933) ALK PHOS (test code = 76 U/L 34-122 1547611118) ALTv (test code = 18 U/L 5-35 1742-6) AST(SGOT) (test code = 21 U/L 13-40 0285573568) eGFR (test code = 91.9 mL/min/1.73m2 2489881655) VERONICA (test code = VERONICA) Association of Glomerular Filtration Rate (GFR) and Staging of Kidney Disease* + --+ --+ ------+| GFR (mL/min/1.73 m2) ?| With Kidney Damage ?| ?Without Kidney Damage+ --------+ --------+ +| ?>90 ?| ?Stage one ?| ? Normal ?+ ---+ ---+ -------+| ?60-89 ?| ?Stage two ?| ? Decreased GFR ? + --+ --+ ------+| ?30-59 ?| ?Stage three ?| ? Stage three ? + --+ --+ ------+| ?15-29 ?| ?Stage four ? | ? Stage four ?+ ---+ ---+ -------+| ?<15 (or dialysis) ? ?| ?Stage five ? | ? Stage five ?+ ---+ ---+ -------+ *Each stage assumes the associated GFR level has been in effect for at least three months. ?Stages 1 to 5, with or without kidney disease, indicate chronic kidney disease. Notes: Determination of stages one and two (with eGFR >59mL/min/1.73 m2) requires estimation of kidney damage for at least three months as defined by structural or functional abnormalities of the kidney, manifested by either:Pathological abnormalities or Markers of kidney damage (including abnormalities in the composition of the blood or urine or abnormalities in imaging tests). Lab Interpretation Abnormal (test code = 65727-9) [facility] CenterACT[facility] PARTIAL THRMPLAS [id number] 06:09:41 Test Item Value Reference Range Interpretation Comments APTT Patient (test 28 See_Comment [Automat ed code = 3173-2) message] The system which generated this result transmitted reference range : 23 - 38 Seconds . The reference range was not used to interpr et this result as normal/abnormal . VERONICA (test code = VERONICA) The [facility] patient population mean normal value for aPTT is 30 seconds. Lab Interpretation Normal (test code = 26029-1) [facility] CenterPROTHROMBIN TIME / [id number] 06:07:21 Test Item Value Reference Range Interpretation Comments PROTIME PATIENT (test 12.6 See_Comment [Auto mated message] code = 5964-2) The system wh ich generated this result transmitted ref erence range: 12.0 - 1 4.7 Seconds. The re ference range was not u sed to interpret this result as normal/abnor mal. INR (test code = 6301-6) 1.0 Nor mal INR <1.1; Warfarin Therap eutic range 2.0 to 3. 0 or 2.5 to 3.5, dep ending upon the indica tions. Lab Interpretation (test Normal code = 08653-2) [facility] WITH [id number] 05:56:38 Test Item Value Reference Range Interpretation Comments WBC (test code = 5.98 See_Comment [Automated 6391-2) message] The sy stem which generated this result transmitted reference range : 4.30 - 11.10 10*3/?L. The reference range was not used to interpret this result as normal/abnormal . RBC (test code = 4.59 See_Comment [Automated 879-8) message] The sy stem which generated this result transmitted reference range : 3.93 - 5.25 10*6/?L. The reference range was not used to interpret this result as normal/abnormal . HGB (test code = 13.6 g/dL 11.6-15.0 718-7) HCT (test code = 41.6 % 35.7-45.2 4544-3) MCV (test code = 90.6 fL 80.6-95.5 787-2) MCH (test code = 29.6 pg 25.9-32.8 785-6) MCHC (test code = 32.7 g/dL 31.6-35.1 786-4) RDW-SD (test code = 42.4 fL 39.0-49.9 40292-9) RDW-CV (test code = 12.8 % 12.0-15.5 788-0) PLT (test code = 195 See_Comment [Automated 407-3) message] The sy stem which generated this result transmitted reference range : 166 - 358 10*3/ ?L. The reference r rob was not used to interpret this result as normal/abnormal . MPV (test code = 9.7 fL 9.5-12.9 80971-9) NRBC/100 WBC (test 0.0 See_Comment [Automat ed code = 3532582741) message] The system which generated this result transmitted reference range : 0.0 - 10.0 /100 WBCs. The refer ence range was not u sed to interpret th is result as normal/abnormal . NRBC x10^3 (test code See_Comment [Auto mated = 6089152387) message] The s ystem which generated this result transmitted reference range : 10*3/?L. The reference range was not used to interpret this result as normal/abnormal . GRAN MAT (NEUT) % 70.2 % (test code = 770-8) IMM GRAN % (test code 0.50 % = 1228670235) LYMPH % (test code = 18.4 % 736-9) MONO % (test code = 8.7 % 5905-5) EOS % (test code = 1.7 % 713-8) BASO % (test code = 0.5 % 706-2) GRAN MAT x10^3(ANC) 4.20 10*3/uL 1.88-7.09 (test code = 4199775464) IMM GRAN x10^3 (test 0.03 10*3/uL 0.00-0.06 code = 1041340584) LYMPH x10^3 (test code 1.10 10*3/uL 1.32-3.29 L = 731-0) MONO x10^3 (test code 0.52 10*3/uL 0.33-0.92 = 742-7) EOS x10^3 (test code = 0.10 10*3/uL 0.03-0.39 711-2) BASO x10^3 (test code 0.03 10*3/uL 0.01-0.07 = 704-7) Lab Interpretation Abnormal (test code = 15515-7) [facility] [id number] 22:05:00 Test Item Value Reference Range Interpretation Comments POC glucose (test code = 108 mg/dL 65-99 H Ope rator Name: [id number]) Camila Villatoro ce ID: [id number] able: HMW [employer]ified [employer] professional Interpretation (test Abnormal code = 81147-0) Julio RiversARS-CoV-2 (COVID-19) RNA [Presence] in Respiratory specimen by SHIELA with probe [id number] 21:08:13 Test Item Value Reference Range Interpretation Comments SARS-CoV-2 (COVID-19) RNA Not detected [Presence] in Respiratory specimen by SHIELA with probe detection (test code = 12924-5) Whether patient is employed in a Unknown healthcare setting (test code = 72562-7) Whether the patient has symptoms Unknown related to condition of interest (test code = 95744-7) Whether the patient was Unknown hospitalized for condition of interest (test code = 58421-5) Whether the patient was admitted Unknown to intensive care unit (ICU) for condition of interest (test code = 93299-3) Whether patient resides in a Unknown congregate care setting (test code = 13527-2) status (test code = Unknown 51299-8) Date and time of symptom onset Unknown (test code = 79785-2) [facility] 12 [id number] 21:07:50 Test Item Value Reference Range Interpretation Comments Ventricular rate (test 71 code = 253) Atrial rate (test code 71 = 255) IN interval (test code 254 = 266) QRSD interval (test 82 code = 260) QT interval (test code 386 = 264) QTC interval (test 419 code = 265) P axis 1 (test code = 43 267) QRS axis 1 (test code -50 = 268) T wave axis (test code 85 = 270) EKG impression (test Sinus rhythm with 1st code = 273) degree AV block-Left axis deviation-Low voltage QRS-Possible Anterolateral infarct (cited on or before 17-OCT-2019)-Abnormal ECG-In automated comparison with ECG of 17-OCT-2019 22:42,-No significant change was found- [facility] [id number] 23:00:00 Test Item Value Reference Range Interpretation Comments BNP (test code = BNP) 86 [facility] [id number] 23:00:00 Test Item Value Reference Range Interpretation Comments Troponin-I (test code no gt See_Comment [Auto mated message] The = Troponin-I) system which g enerated this result transmit gustavo reference range : <=0.40. The reference r rob was not used to interpr et this result as layton l/abnormal. [facility] [id number] 23:00:00 Test Item Value Reference Range Interpretation Comments CK MB (test code = CK MB) no gt 0.5-3.6 [facility]CARPar[facility] UniverseAC [id number] 23:00:00 Test Item Value Reference Range Interpretation Comments Total CK (test code = Total CK) 46 12-191 [facility] [id number] 23:00:00 Test Item Value Reference Range Interpretation Comments CK MB Index (test no gt See_Comment [Automate d message] The code = CK MB Index) system w [facility] generated this result transmit gustavo reference range : <=2.5. The reference range was not used to interpr et this result as layton l/abnormal. [facility] [employer] [id number] 23:00:00 Test Item Value Reference Range Interpretation Comments Phosphorus (test code = Phosphorus) 2.7 2.5-4.5 [facility] [id number] 23:00:00 Test Item Value Reference Range Interpretation Comments Magnesium Lvl (test code = Magnesium 1.8 1.8-2.4 Lvl) [facility] [id number] 23:00:00 Test Item Value Reference Range Interpretation Comments BUN (test code = BUN) 13 7-22 [facility] [employer] [id number] 23:00:00 Test Item Value Reference Range Interpretation Comments ALT (test code = ALT) 26 See_Comment [Auto mated message] The system which ge nerated this result transmit gustavo reference range : <=65. The reference range was not used to interpr et this result as layton l/abnormal. [facility] [employer] [id number] 23:00:00 Test Item Value Reference Range Interpretation Comments CO2 (test code = CO2) 27 24-32 [facility] [employer] [id number] 23:00:00 Test Item Value Reference Range Interpretation Comments Glucose Lvl (test code = Glucose Lvl) 270 70-99 [facility] [id number] 23:00:00 Test Item Value Reference Range Interpretation Comments AGAP (test code = AGAP) 11.5 10.0-20.0 [facility] [employer] [id number] 23:00:00 Test Item Value Reference Range Interpretation Comments B/C Ratio (test code = B/C Ratio) 19 6-25 [facility] [employer] [id number] 23:00:00 Test Item Value Reference Range Interpretation Comments AST (test code = AST) 17 See_Comment [Auto mated message] The system which ge nerated this result transmit gustavo reference range : <=37. The reference range was not used to interpr et this result as layton l/abnormal. [facility]2015-06-08 23:00:00 Test Item Value Reference Range Interpretation Comments eGFR (test code = eGFR) 85 [facility]2015-06-08 23:00:00 Test Item Value Reference Range Interpretation Comments Sodium Lvl (test code = Sodium Lvl) 134 135-145 [facility]2015-06-08 23:00:00 Test Item Value Reference Range Interpretation Comments Creatinine Lvl (test code = Creatinine 0.7 0.5-1.4 Lvl) [facility]2015-06-08 23:00:00 Test Item Value Reference Range Interpretation Comments Potassium Lvl (test code = Potassium 4.5 3.5-5.1 Lvl) [facility]2015-06-08 23:00:00 Test Item Value Reference Range Interpretation Comments Chloride Lvl (test code = Chloride Lvl) 100 95-109 [facility]2015-06-08 23:00:00 Test Item Value Reference Range Interpretation Comments Calcium Lvl (test code = Calcium Lvl) 8.8 8.5-10.5 [facility]2015-06-08 23:00:00 Test Item Value Reference Range Interpretation Comments Albumin Lvl (test code = Albumin Lvl) 3.2 3.5-5.0 [facility]2015-06-08 23:00:00 Test Item Value Reference Range Interpretation Comments A/G Ratio (test code = A/G Ratio) 0.9 0.7-1.6 [facility]2015-06-08 23:00:00 Test Item Value Reference Range Interpretation Comments Bili Total (test code = Bili Total) 0.9 0.2-1.3 [facility]2015-06-08 23:00:00 Test Item Value Reference Range Interpretation Comments Alk Phos (test code = Alk Phos) 96 39-136 [facility]2015-06-08 23:00:00 Test Item Value Reference Range Interpretation Comments Globulin (test code = Globulin) 3.6 2.0-4.0 [facility]2015-06-08 23:00:00 Test Item Value Reference Range Interpretation Comments Total Protein (test code = Total 6.8 6.4-8.4 Protein) [id number] 23:00:00 Test Item Value Reference Range Interpretation Comments RDW (test code = RDW) 13.5 11.5-14.5 [facility] [id number] 23:00:00 Test Item Value Reference Range Interpretation Comments Platelet (test code = Platelet) 197 133-450 [facility] Cent[id number] 23:00:00 Test Item Value Reference Range Interpretation Comments MCH (test code = MCH) 30.0 pg 27.0-31.0 [facility] [id number] 23:00:00 Test Item Value Reference Range Interpretation Comments MCHC (test code = MCHC) 33.7 32.0-36.0 [facility] Cent[id number] 23:00:00 Test Item Value Reference Range Interpretation Comments Hct (test code = Hct) 41.2 36.0-48.0 [facility] Cent[id number] 23:00:00 Test Item Value Reference Range Interpretation Comments MCV (test code = MCV) 89.2 80.0-98.0 [facility] C[id number] 23:00:00 Test Item Value Reference Range Interpretation Comments MPV (test code = MPV) 8.0 7.4-10.4 [facility] CenterWpamsyaBTEDVSJRAI5564-99-17 23:00:00 Test Item Value Reference Range Interpretation Comments Hgb (test code = Hgb) 13.9 12.0-16.0 [facility] Cent[id number] 23:00:00 Test Item Value Reference Range Interpretation Comments RBC (test code = RBC) 4.62 4.20-5.40 [facility] [id number] 23:00:00 Test Item Value Reference Range Interpretation Comments WBC (test code = WBC) 7.0 3.7-10.4 [facility] [id number] 23:00:00 Test Item Value Reference Range Interpretation Comments Segs-Bands # (test code = Segs-Bands #) 4.9 1.5-8.1 [facility] [id number] 23:00:00 Test Item Value Reference Range Interpretation Comments Eosinophils (test code = 2.2 See_Comment [A utomated message] The Eosinophils) system which ge nerated this result tra nsmitted reference range : <=4.0. The reference r rob was not used to int erpret this result as normal/abnormal . [facility] CenterKbbnkydUSQEOYZGON0869-50-04 23:00:00 Test Item Value Reference Range Interpretation Comments Basophils (test code = 0.5 See_Comment [Aut omated message] The Basophils) system which ge nerated this result tra nsmitted reference range : <=1.0. The reference r rob was not used to int erpret this result as normal/abnormal . [facility] CenterIfroyxgDUAEUACYJF2693-70-19 23:00:00 Test Item Value Reference Range Interpretation Comments Eosinophils # (test code 0.2 See_Comment [A utomated message] The = Eosinophils #) system wh h generated this result tra nsmitted reference range : <=0.5. The reference r rob was not used to int erpret this result as normal/abnormal . [facility] CenterYzttizrLLCVYGWKRG6031-55-37 23:00:00 Test Item Value Reference Range Interpretation Comments Basophils # (test code 0.0 See_Comment [Aut omated message] The = Basophils #) system which generated this result tra nsmitted reference range : <=0.2. The reference r rob was not used to int erpret this result as normal/abnormal . [facility] CenterXqzyddyCXQUIAMFKA7795-56-35 23:00:00 Test Item Value Reference Range Interpretation Comments Monocytes # (test code 0.6 See_Comment [Aut omated message] The = Monocytes #) system which generated this result tra nsmitted reference range : <=0.8. The reference r rob was not used to int erpret this result as normal/abnormal . [facility] CenterWxabsroAVOQESIPIY2055-39-56 23:00:00 Test Item Value Reference Range Interpretation Comments Lymphocytes (test code = Lymphocytes) 19.2 20.0-40.0 [facility] CenterRlkehyhEONNNIJKNM8497-66-21 23:00:00 Test Item Value Reference Range Interpretation Comments Monocytes (test code = Monocytes) 8.0 2.0-12.0 [facility] CenterNspcxdpPQVJNALQMZ0508-10-11 23:00:00 Test Item Value Reference Range Interpretation Comments Lymphocytes # (test code = Lymphocytes 1.3 1.0-5.5 #) [facility] CenterHyzkmegZTVKUILPBW3946-25-14 23:00:00 Test Item Value Reference Range Interpretation Comments Segs (test code = Segs) 70.1 45.0-75.0 [facility] [id number] 23:00:00 Test Item Value Reference Range Interpretation Comments BNP (test code = BNP) 86 [facility] [id number] 23:00:00 Test Item Value Reference Range Interpretation Comments Troponin-I (test code no gt See_Comment [Auto mated message] The = Troponin-I) system which g enerated this result transmit gustavo reference range : <=0.40. The reference r rob was not used to interpr et this result as layton l/abnormal. [facility] [id number] 23:00:00 Test Item Value Reference Range Interpretation Comments CK MB (test code = CK MB) no gt 0.5-3.6 [facility] [id number] 23:00:00 Test Item Value Reference Range Interpretation Comments Total CK (test code = Total CK) 46 12-191 [facility] [id number] 23:00:00 Test Item Value Reference Range Interpretation Comments CK MB Index (test no gt See_Comment [Automate d message] The code = CK MB Index) system w the [facility] generated this result transmit gustavo reference range : <=2.5. The reference range was not used to interpr et this result as layton l/abnormal. [facility] [employer] [id number] 23:00:00 Test Item Value Reference Range Interpretation Comments Phosphorus (test code = Phosphorus) 2.7 2.5-4.5 [facility] [employer] [id number] 23:00:00 Test Item Value Reference Range Interpretation Comments Magnesium Lvl (test code = Magnesium 1.8 1.8-2.4 Lvl) [facility] [id number] 23:00:00 Test Item Value Reference Range Interpretation Comments BUN (test code = BUN) 13 7-22 [facility] [employer] [id number] 23:00:00 Test Item Value Reference Range Interpretation Comments ALT (test code = ALT) 26 See_Comment [Auto mated message] The system which ge nerated this result transmit gustavo reference range : <=65. The reference range was not used to interpr et this result as layton l/abnormal. [facility]2015-06-08 23:00:00 Test Item Value Reference Range Interpretation Comments CO2 (test code = CO2) 27 24-32 [facility]2015-06-08 23:00:00 Test Item Value Reference Range Interpretation Comments Glucose Lvl (test code = Glucose Lvl) 270 70-99 [facility]2015-06-08 23:00:00 Test Item Value Reference Range Interpretation Comments AGAP (test code = AGAP) 11.5 10.0-20.0 [facility]2015-06-08 23:00:00 Test Item Value Reference Range Interpretation Comments B/C Ratio (test code = B/C Ratio) 19 6-25 [facility]2015-06-08 23:00:00 Test Item Value Reference Range Interpretation Comments AST (test code = AST) 17 See_Comment [Auto mated message] The system which ge nerated this result transmit gustavo reference range : <=37. The reference range was not used to interpr et this result as layton l/abnormal. [facility]2015-06-08 23:00:00 Test Item Value Reference Range Interpretation Comments eGFR (test code = eGFR) 85 [facility]2015-06-08 23:00:00 Test Item Value Reference Range Interpretation Comments Sodium Lvl (test code = Sodium Lvl) 134 135-145 [facility]2015-06-08 23:00:00 Test Item Value Reference Range Interpretation Comments Creatinine Lvl (test code = Creatinine 0.7 0.5-1.4 Lvl) [facility]2015-06-08 23:00:00 Test Item Value Reference Range Interpretation Comments Potassium Lvl (test code = Potassium 4.5 3.5-5.1 Lvl) [facility]2015-06-08 23:00:00 Test Item Value Reference Range Interpretation Comments Chloride Lvl (test code = Chloride Lvl) 100 95-109 [facility]2015-06-08 23:00:00 Test Item Value Reference Range Interpretation Comments Calcium Lvl (test code = Calcium Lvl) 8.8 8.5-10.5 [facility]2015-06-08 23:00:00 Test Item Value Reference Range Interpretation Comments Albumin Lvl (test code = Albumin Lvl) 3.2 3.5-5.0 [facility]2015-06-08 23:00:00 Test Item Value Reference Range Interpretation Comments A/G Ratio (test code = A/G Ratio) 0.9 0.7-1.6 [facility]2015-06-08 23:00:00 Test Item Value Reference Range Interpretation Comments Bili Total (test code = Bili Total) 0.9 0.2-1.3 [facility]2015-06-08 23:00:00 Test Item Value Reference Range Interpretation Comments Alk Phos (test code = Alk Phos) 96 39-136 [facility]2015-06-08 23:00:00 Test Item Value Reference Range Interpretation Comments Globulin (test code = Globulin) 3.6 2.0-4.0 [facility]2015-06-08 23:00:00 Test Item Value Reference Range Interpretation Comments Total Protein (test code = Total 6.8 6.4-8.4 Protein) [id number] 23:00:00 Test Item Value Reference Range Interpretation Comments RDW (test code = RDW) 13.5 11.5-14.5 [facility] Cent[id number] 23:00:00 Test Item Value Reference Range Interpretation Comments Platelet (test code = Platelet) 197 133-450 [facility] Cent[id number] 23:00:00 Test Item Value Reference Range Interpretation Comments MCH (test code = MCH) 30.0 pg 27.0-31.0 [facility] [id number] 23:00:00 Test Item Value Reference Range Interpretation Comments MCHC (test code = MCHC) 33.7 32.0-36.0 [facility] [id number] 23:00:00 Test Item Value Reference Range Interpretation Comments Hct (test code = Hct) 41.2 36.0-48.0 [facility] [id number] 23:00:00 Test Item Value Reference Range Interpretation Comments MCV (test code = MCV) 89.2 80.0-98.0 [facility] CenterMdgfohpFFFSXEWOIH8496-41-21 23:00:00 Test Item Value Reference Range Interpretation Comments MPV (test code = MPV) 8.0 7.4-10.4 [facility] CenterZnjuaoaMHOUGSBIZH5954-09-72 23:00:00 Test Item Value Reference Range Interpretation Comments Hgb (test code = Hgb) 13.9 12.0-16.0 [facility] CenterReiklraUTNNPYUEES7013-38-23 23:00:00 Test Item Value Reference Range Interpretation Comments RBC (test code = RBC) 4.62 4.20-5.40 [facility] CenterYqrcrpnXBWVHKTXGT5697-54-86 23:00:00 Test Item Value Reference Range Interpretation Comments WBC (test code = WBC) 7.0 3.7-10.4 [facility] Cent[id number] 23:00:00 Test Item Value Reference Range Interpretation Comments Segs-Bands # (test code = Segs-Bands #) 4.9 1.5-8.1 [facility] [id number] 23:00:00 Test Item Value Reference Range Interpretation Comments Eosinophils (test code = 2.2 See_Comment [A utomated message] The Eosinophils) system which ge nerated this result tra nsmitted reference range : <=4.0. The reference r rob was not used to int erpret this result as normal/abnormal . [facility] CenterVpedhosHODIFRYKIE6486-32-10 23:00:00 Test Item Value Reference Range Interpretation Comments Basophils (test code = 0.5 See_Comment [Aut omated message] The Basophils) system which ge nerated this result tra nsmitted reference range : <=1.0. The reference r rob was not used to int erpret this result as normal/abnormal . [facility] Cent[id number] 23:00:00 Test Item Value Reference Range Interpretation Comments Eosinophils # (test code 0.2 See_Comment [A utomated message] The = Eosinophils #) system whic h generated this result tra nsmitted reference range : <=0.5. The reference r rob was not used to int erpret this result as normal/abnormal . [facility] CenterD[id number] 23:00:00 Test Item Value Reference Range Interpretation Comments Basophils # (test code 0.0 See_Comment [Aut omated message] The = Basophils #) system which generated this result tra nsmitted reference range : <=0.2. The reference r rob was not used to int erpret this result as normal/abnormal . [id number] 23:00:00 Test Item Value Reference Range Interpretation Comments Monocytes # (test code 0.6 See_Comment [Aut omated message] The = Monocytes #) system which generated this result tra nsmitted reference range : <=0.8. The reference r rob was not used to int erpret this result as normal/abnormal . [facility] GrapevineVltlfszGBUXLFQQKK1987-89-05 23:00:00 Test Item Value Reference Range Interpretation Comments Lymphocytes (test code = Lymphocytes) 19.2 20.0-40.0 [id number] 23:00:00 Test Item Value Reference Range Interpretation Comments Monocytes (test code = Monocytes) 8.0 2.0-12.0 [facility] GrapevineLgekwleXLOWGJJXXQ4174-09-27 23:00:00 Test Item Value Reference Range Interpretation Comments Lymphocytes # (test code = Lymphocytes 1.3 1.0-5.5 #) [facility]rapevi[id number] 23:00:00 Test Item Value Reference Range Interpretation Comments Segs (test code = Segs) 70.1 45.0-75.0 [facility]2015-06-08 23:00:00 Test Item Value Reference Range Interpretation Comments BNP (test code = BNP) [facility] [employer] [id number] 23:00:00 Test Item Value Reference Range Interpretation Comments Troponin-I (test code no gt See_Comment [Auto mated message] The = Troponin-I) system which g enerated this result transmit gustavo reference range : <=0.40. The reference r rob was not used to interpr et this result as layton l/abnormal. [facility]2015-06-08 23:00:00 Test Item Value Reference Range Interpretation Comments CK MB (test code = CK MB) no gt 0.5-3.6 [facility] [id number] 23:00:00 Test Item Value Reference Range Interpretation Comments Total CK (test code = Total CK) 46 12-191 [facility]vineannCARDIAC [id number] 23:00:00 Test Item Value Reference Range Interpretation Comments CK MB Index (test no gt See_Comment [Automate d message] The code = CK MB Index) system w the [facility] generated this result transmit gustavo reference range : <=2.5. The reference range was not used to interpr et this result as layton l/abnormal. [facility] [employer] [id number] 23:00:00 Test Item Value Reference Range Interpretation Comments Phosphorus (test code = Phosphorus) 2.7 2.5-4.5 [facility] [employer] [id number] 23:00:00 Test Item Value Reference Range Interpretation Comments Magnesium Lvl (test code = Magnesium 1.8 1.8-2.4 Lvl) [facility]2015-06-08 23:00:00 Test Item Value Reference Range Interpretation Comments BUN (test code = BUN) 13 7-22 [facility] [employer] [id number] 23:00:00 Test Item Value Reference Range Interpretation Comments ALT (test code = ALT) 26 See_Comment [Auto mated message] The system which ge nerated this result transmit gustavo reference range : <=65. The reference range was not used to interpr et this result as layton l/abnormal. [facility] [employer] [id number] 23:00:00 Test Item Value Reference Range Interpretation Comments CO2 (test code = CO2) 27 24-32 [facility] [employer] [id number] 23:00:00 Test Item Value Reference Range Interpretation Comments Glucose Lvl (test code = Glucose Lvl) 270 70-99 [facility] [employer] [id number] 23:00:00 Test Item Value Reference Range Interpretation Comments AGAP (test code = AGAP) 11.5 10.0-20.0 [facility] [employer] [id number] 23:00:00 Test Item Value Reference Range Interpretation Comments B/C Ratio (test code = B/C Ratio) 19 6-25 [facility] [employer] [id number] 23:00:00 Test Item Value Reference Range Interpretation Comments AST (test code = AST) 17 See_Comment [Auto mated message] The system which ge nerated this result transmit gustavo reference range : <=37. The reference range was not used to interpr et this result as layton l/abnormal. [facility]2015-06-08 23:00:00 Test Item Value Reference Range Interpretation Comments eGFR (test code = eGFR) 85 [facility]2015-06-08 23:00:00 Test Item Value Reference Range Interpretation Comments Sodium Lvl (test code = Sodium Lvl) 134 135-145 [facility]2015-06-08 23:00:00 Test Item Value Reference Range Interpretation Comments Creatinine Lvl (test code = Creatinine 0.7 0.5-1.4 Lvl) [facility]2015-06-08 23:00:00 Test Item Value Reference Range Interpretation Comments Potassium Lvl (test code = Potassium 4.5 3.5-5.1 Lvl) [facility]2015-06-08 23:00:00 Test Item Value Reference Range Interpretation Comments Chloride Lvl (test code = Chloride Lvl) 100 95-109 [facility]2015-06-08 23:00:00 Test Item Value Reference Range Interpretation Comments Calcium Lvl (test code = Calcium Lvl) 8.8 8.5-10.5 [facility]2015-06-08 23:00:00 Test Item Value Reference Range Interpretation Comments Albumin Lvl (test code = Albumin Lvl) 3.2 3.5-5.0 [facility]2015-06-08 23:00:00 Test Item Value Reference Range Interpretation Comments A/G Ratio (test code = A/G Ratio) 0.9 0.7-1.6 [facility]2015-06-08 23:00:00 Test Item Value Reference Range Interpretation Comments Bili Total (test code = Bili Total) 0.9 0.2-1.3 [facility]2015-06-08 23:00:00 Test Item Value Reference Range Interpretation Comments Alk Phos (test code = Alk Phos) 96 39-136 [facility]2015-06-08 23:00:00 Test Item Value Reference Range Interpretation Comments Globulin (test code = Globulin) 3.6 2.0-4.0 [facility]2015-06-08 23:00:00 Test Item Value Reference Range Interpretation Comments Total Protein (test code = Total 6.8 6.4-8.4 Protein) [facility] [id number] 23:00:00 Test Item Value Reference Range Interpretation Comments RDW (test code = RDW) 13.5 11.5-14.5 [facility] CenterKmtppduNXNDDGOOMV2273-60-31 23:00:00 Test Item Value Reference Range Interpretation Comments Platelet (test code = Platelet) 197 133-450 [facility] CenterZbhaupmPBBGIQXSHJ8925-53-59 23:00:00 Test Item Value Reference Range Interpretation Comments MCH (test code = MCH) 30.0 pg 27.0-31.0 [facility] Cent[id number] 23:00:00 Test Item Value Reference Range Interpretation Comments MCHC (test code = MCHC) 33.7 32.0-36.0 [facility] CenterVrzsctoZMYGVUSJMK7913-06-94 23:00:00 Test Item Value Reference Range Interpretation Comments Hct (test code = Hct) 41.2 36.0-48.0 [facility] Cent[id number] 23:00:00 Test Item Value Reference Range Interpretation Comments MCV (test code = MCV) 89.2 80.0-98.0 [facility] CenterTaqxeboZOZYGCSLHO1224-12-77 23:00:00 Test Item Value Reference Range Interpretation Comments MPV (test code = MPV) 8.0 7.4-10.4 [facility] CenterPqpnyzjQPFLGHTUTN1202-90-76 23:00:00 Test Item Value Reference Range Interpretation Comments Hgb (test code = Hgb) 13.9 12.0-16.0 [facility] CenterBayjfitFOCLFMKJFO1410-00-86 23:00:00 Test Item Value Reference Range Interpretation Comments RBC (test code = RBC) 4.62 4.20-5.40 [facility] CenterFzdctzzUVHNMHWRSX6989-43-80 23:00:00 Test Item Value Reference Range Interpretation Comments WBC (test code = WBC) 7.0 3.7-10.4 [facility] Cent[id number] 23:00:00 Test Item Value Reference Range Interpretation Comments Segs-Bands # (test code = Segs-Bands #) 4.9 1.5-8.1 [facility] [id number] 23:00:00 Test Item Value Reference Range Interpretation Comments Eosinophils (test code = 2.2 See_Comment [A utomated message] The Eosinophils) system which ge nerated this result tra nsmitted reference range : <=4.0. The reference r rob was not used to int erpret this result as normal/abnormal . [facility] CenterQayrzonYGPLBALURJ0722-42-55 23:00:00 Test Item Value Reference Range Interpretation Comments Basophils (test code = 0.5 See_Comment [Aut omated message] The Basophils) system which ge nerated this result tra nsmitted reference range : <=1.0. The reference r rob was not used to int erpret this result as normal/abnormal . [facility] CenterYmiseplBXEQEYVTWM7406-33-87 23:00:00 Test Item Value Reference Range Interpretation Comments Eosinophils # (test code 0.2 See_Comment [A utomated message] The = Eosinophils #) system [facility] h generated this result tra nsmitted reference range : <=0.5. The reference r rob was not used to int erpret this result as normal/abnormal . [facility] CenterByjjyqxDUTXBRUWOV2726-20-82 23:00:00 Test Item Value Reference Range Interpretation Comments Basophils # (test code 0.0 See_Comment [Aut omated message] The = Basophils #) system which generated this result tra nsmitted reference range : <=0.2. The reference r rob was not used to int erpret this result as normal/abnormal . [facility] CenterPblzxeuAKEYZCOGJP6701-53-55 23:00:00 Test Item Value Reference Range Interpretation Comments Monocytes # (test code 0.6 See_Comment [Aut omated message] The = Monocytes #) system which generated this result tra nsmitted reference range : <=0.8. The reference r rob was not used to int erpret this result as normal/abnormal . [facility] CenterTjwcljrWMCGPKTYWR8815-04-00 23:00:00 Test Item Value Reference Range Interpretation Comments Lymphocytes (test code = Lymphocytes) 19.2 20.0-40.0 [facility] CenterNdvojsbSJXSKSKWZN2266-36-07 23:00:00 Test Item Value Reference Range Interpretation Comments Monocytes (test code = Monocytes) 8.0 2.0-12.0 [facility] CenterNdanealDZXENVQBSZ2258-96-80 23:00:00 Test Item Value Reference Range Interpretation Comments Lymphocytes # (test code = Lymphocytes 1.3 1.0-5.5 #) [facility] CenterJkbqhwmOCELTMZAOZ1683-02-49 23:00:00 Test Item Value Reference Range Interpretation Comments Segs (test code = Segs) 70.1 45.0-75.0 [facility] [employer]2015-06-08 23:00:00 Test Item Value Reference Range Interpretation Comments BNP (test code = BNP) 86 [facility] [id number] 23:00:00 Test Item Value Reference Range Interpretation Comments Troponin-I (test code no gt See_Comment [Auto mated message] The = Troponin-I) system which g enerated this result transmit gustavo reference range : <=0.40. The reference r rob was not used to interpr et this result as layton l/abnormal. [facility] [employer]2015-06-08 23:00:00 Test Item Value Reference Range Interpretation Comments CK MB (test code = CK MB) no gt 0.5-3.6 [facility]2015-[facility]-08 23:00:00 Test Item Value Reference Range Interpretation Comments Total CK (test code = Total CK) 46 12-191 [facility]2015-[facility]-08 23:00:00 Test Item Value Reference Range Interpretation Comments CK MB Index (test no gt See_Comment [Automate d message] The code = CK MB Index) system w the [facility] generated this result transmit gsutavo reference range : <=2.5. The reference range was not used to interpr et this result as layton l/abnormal. [facility] [employer]2015-06-08 23:00:00 Test Item Value Reference Range Interpretation Comments Phosphorus (test code = Phosphorus) 2.7 2.5-4.5 [facility] [employer]2015-06-08 23:00:00 Test Item Value Reference Range Interpretation Comments Magnesium Lvl (test code = Magnesium 1.8 1.8-2.4 Lvl) [facility] [employer]2015-06-08 23:00:00 Test Item Value Reference Range Interpretation Comments BUN (test code = BUN) 13 7-22 [facility] [employer] [id number] 23:00:00 Test Item Value Reference Range Interpretation Comments ALT (test code = ALT) 26 See_Comment [Auto mated message] The system which ge nerated this result transmit gustavo reference range : <=65. The reference range was not used to interpr et this result as layton l/abnormal. [facility]2015-06-08 23:00:00 Test Item Value Reference Range Interpretation Comments CO2 (test code = CO2) 27 24-32 [facility]2015-06-08 23:00:00 Test Item Value Reference Range Interpretation Comments Glucose Lvl (test code = Glucose Lvl) 270 70-99 [facility]2015-06-08 23:00:00 Test Item Value Reference Range Interpretation Comments AGAP (test code = AGAP) 11.5 10.0-20.0 [facility]2015-06-08 23:00:00 Test Item Value Reference Range Interpretation Comments B/C Ratio (test code = B/C Ratio) 19 6-25 [facility]2015-06-08 23:00:00 Test Item Value Reference Range Interpretation Comments AST (test code = AST) 17 See_Comment [Auto mated message] The system which ge nerated this result transmit gustavo reference range : <=37. The reference range was not used to interpr et this result as layton l/abnormal. [facility]2015-06-08 23:00:00 Test Item Value Reference Range Interpretation Comments eGFR (test code = eGFR) 85 [facility]2015-06-08 23:00:00 Test Item Value Reference Range Interpretation Comments Sodium Lvl (test code = Sodium Lvl) 134 135-145 [facility]2015-06-08 23:00:00 Test Item Value Reference Range Interpretation Comments Creatinine Lvl (test code = Creatinine 0.7 0.5-1.4 Lvl) [facility]2015-06-08 23:00:00 Test Item Value Reference Range Interpretation Comments Potassium Lvl (test code = Potassium 4.5 3.5-5.1 Lvl) [facility]2015-06-08 23:00:00 Test Item Value Reference Range Interpretation Comments Chloride Lvl (test code = Chloride Lvl) 100 95-109 [facility]2015-06-08 23:00:00 Test Item Value Reference Range Interpretation Comments Calcium Lvl (test code = Calcium Lvl) 8.8 8.5-10.5 [facility]2015-06-08 23:00:00 Test Item Value Reference Range Interpretation Comments Albumin Lvl (test code = Albumin Lvl) 3.2 3.5-5.0 [facility] [employer]2015-06-08 23:00:00 Test Item Value Reference Range Interpretation Comments BNP (test code = BNP) 86 [facility] [employer] [id number] 23:00:00 Test Item Value Reference Range Interpretation Comments A/G Ratio (test code = A/G Ratio) 0.9 0.7-1.6 [facility] [employer]2015-06-08 23:00:00 Test Item Value Reference Range Interpretation Comments Troponin-I (test code no gt See_Comment [Auto mated message] The = Troponin-I) system which g enerated this result transmit gustavo reference range : <=0.40. The reference r rob was not used to interpr et this result as layton l/abnormal. [facility] [employer]2015-06-08 23:00:00 Test Item Value Reference Range Interpretation Comments Bili Total (test code = Bili Total) 0.9 0.2-1.3 [facility] [employer]2015-06-08 23:00:00 Test Item Value Reference Range Interpretation Comments CK MB (test code = CK MB) no gt 0.5-3.6 [facility] [employer]2015-06-08 23:00:00 Test Item Value Reference Range Interpretation Comments Alk Phos (test code = Alk Phos) 96 39-136 [facility] [employer]2015-06-08 23:00:00 Test Item Value Reference Range Interpretation Comments Total CK (test code = Total CK) 46 12-191 [facility] [employer]2015-06-08 23:00:00 Test Item Value Reference Range Interpretation Comments Globulin (test code = Globulin) 3.6 2.0-4.0 [facility] [employer]2015-06-08 23:00:00 Test Item Value Reference Range Interpretation Comments CK MB Index (test no gt See_Comment [Automate d message] The code = CK MB Index) system w the [facility] generated this result transmit gustavo reference range : <=2.5. The reference range was not used to interpr et this result as layton l/abnormal. [facility]2015-06-08 23:00:00 Test Item Value Reference Range Interpretation Comments Total Protein (test code = Total 6.8 6.4-8.4 Protein) [facility]2015-06-08 23:00:00 Test Item Value Reference Range Interpretation Comments Phosphorus (test code = Phosphorus) 2.7 2.5-4.5 [id number] 23:00:00 Test Item Value Reference Range Interpretation Comments RDW (test code = RDW) 13.5 11.5-14.5 [facility]2015-06-08 23:00:00 Test Item Value Reference Range Interpretation Comments Magnesium Lvl (test code = Magnesium 1.8 1.8-2.4 Lvl) [id number] 23:00:00 Test Item Value Reference Range Interpretation Comments Platelet (test code = Platelet) 197 133-450 [facility]2015-06-08 23:00:00 Test Item Value Reference Range Interpretation Comments BUN (test code = BUN) 13 7-22 [facility]DppgsgfQXXCFUJDZH8892-77-60 23:00:00 Test Item Value Reference Range Interpretation Comments MCH (test code = MCH) 30.0 pg 27.0-31.0 [facility]2015-06-08 23:00:00 Test Item Value Reference Range Interpretation Comments ALT (test code = ALT) 26 See_Comment [Auto mated message] The system which ge nerated this result transmit gustavo reference range : <=65. The reference range was not used to interpr et this result as layton l/abnormal. [facility] CenterSgecbnqZRDGMPHKIH8944-69-68 23:00:00 Test Item Value Reference Range Interpretation Comments MCHC (test code = MCHC) 33.7 32.0-36.0 [facility]2015-06-08 23:00:00 Test Item Value Reference Range Interpretation Comments CO2 (test code = CO2) 27 24-32 [facility] Cent[id number] 23:00:00 Test Item Value Reference Range Interpretation Comments Hct (test code = Hct) 41.2 36.0-48.0 [facility]2015-06-08 23:00:00 Test Item Value Reference Range Interpretation Comments Glucose Lvl (test code = Glucose Lvl) 270 70-99 [facility] CenterJnijjlvRZHCVPVOTJ3224-46-79 23:00:00 Test Item Value Reference Range Interpretation Comments MCV (test code = MCV) 89.2 80.0-98.0 [facility]2015-06-08 23:00:00 Test Item Value Reference Range Interpretation Comments AGAP (test code = AGAP) 11.5 10.0-20.0 [facility] CenterDophbfkDRPVSROUCC1733-98-51 23:00:00 Test Item Value Reference Range Interpretation Comments MPV (test code = MPV) 8.0 7.4-10.4 [facility]2015-06-08 23:00:00 Test Item Value Reference Range Interpretation Comments B/C Ratio (test code = B/C Ratio) 19 6-25 [facility] CenterGuzdqbcRMXRIJORJU5013-63-36 23:00:00 Test Item Value Reference Range Interpretation Comments Hgb (test code = Hgb) 13.9 12.0-16.0 [facility]2015-06-08 23:00:00 Test Item Value Reference Range Interpretation Comments AST (test code = AST) 17 See_Comment [Auto mated message] The system which ge nerated this result transmit gustavo reference range : <=37. The reference range was not used to interpr et this result as layton l/abnormal. [facility] CenterGtznbflMBVNDBTYZZ7506-37-24 23:00:00 Test Item Value Reference Range Interpretation Comments RBC (test code = RBC) 4.62 4.20-5.40 [facility]2015-06-08 23:00:00 Test Item Value Reference Range Interpretation Comments eGFR (test code = eGFR) 85 [facility] CenterIjmegdvYWQCGPAPJL0217-40-83 23:00:00 Test Item Value Reference Range Interpretation Comments WBC (test code = WBC) 7.0 3.7-10.4 [facility]2015-06-08 23:00:00 Test Item Value Reference Range Interpretation Comments Sodium Lvl (test code = Sodium Lvl) 134 135-145 [facility] CenterZtdikxjEESBWXFBUG6473-71-37 23:00:00 Test Item Value Reference Range Interpretation Comments Segs-Bands # (test code = Segs-Bands #) 4.9 1.5-8.1 [facility]2015-06-08 23:00:00 Test Item Value Reference Range Interpretation Comments Creatinine Lvl (test code = Creatinine 0.7 0.5-1.4 Lvl) [place] 158315-06-08 23:00:00 Test Item Value Reference Range Interpretation Comments Eosinophils (test code = 2.2 See_Comment [A utomated message] The Eosinophils) system which ge nerated this result tra nsmitted reference range : <=4.0. The reference r rob was not used to int erpret this result as normal/abnormal . [facility]2015-06-08 23:00:00 Test Item Value Reference Range Interpretation Comments Potassium Lvl (test code = Potassium 4.5 3.5-5.1 Lvl) [facility] Cent[id number] 23:00:00 Test Item Value Reference Range Interpretation Comments Basophils (test code = 0.5 See_Comment [Aut omated message] The Basophils) system which ge nerated this result tra nsmitted reference range : <=1.0. The reference r rob was not used to int erpret this result as normal/abnormal . [facility]2015-06-08 23:00:00 Test Item Value Reference Range Interpretation Comments Chloride Lvl (test code = Chloride Lvl) 100 95-109 [facility]2015-06-08 23:00:00 Test Item Value Reference Range Interpretation Comments Calcium Lvl (test code = Calcium Lvl) 8.8 8.5-10.5 [facility] CenterMtqsvshCHLNWDTMKI0753-92-07 23:00:00 Test Item Value Reference Range Interpretation Comments Eosinophils # (test code 0.2 See_Comment [A utomated message] The = Eosinophils #) system whic h generated this result tra nsmitted reference range : <=0.5. The reference r rob was not used to int erpret this result as normal/abnormal . [facility]2015-06-08 23:00:00 Test Item Value Reference Range Interpretation Comments Albumin Lvl (test code = Albumin Lvl) 3.2 3.5-5.0 [facility] CenterRzwecpqUCABQRAAWD1172-93-12 23:00:00 Test Item Value Reference Range Interpretation Comments Basophils # (test code 0.0 See_Comment [Aut omated message] The = Basophils #) system which generated this result tra nsmitted reference range : <=0.2. The reference r rob was not used to int erpret this result as normal/abnormal . [facility]2015-06-08 23:00:00 Test Item Value Reference Range Interpretation Comments A/G Ratio (test code = A/G Ratio) 0.9 0.7-1.6 [facility] CenterDqlupwuOSNDZJMVEM1876-15-32 23:00:00 Test Item Value Reference Range Interpretation Comments Monocytes # (test code 0.6 See_Comment [Aut omated message] The = Monocytes #) system which generated this result tra nsmitted reference range : <=0.8. The reference r rob was not used to int erpret this result as normal/abnormal . [facility]2015-06-08 23:00:00 Test Item Value Reference Range Interpretation Comments Bili Total (test code = Bili Total) 0.9 0.2-1.3 [facility]2015-06-08 23:00:00 Test Item Value Reference Range Interpretation Comments Alk Phos (test code = Alk Phos) 96 39-136 [facility] CenterUyddlewHPHVBLTJLF3614-54-39 23:00:00 Test Item Value Reference Range Interpretation Comments Lymphocytes (test code = Lymphocytes) 19.2 20.0-40.0 [facility]2015-06-08 23:00:00 Test Item Value Reference Range Interpretation Comments Globulin (test code = Globulin) 3.6 2.0-4.0 [facility] Cent[id number] 23:00:00 Test Item Value Reference Range Interpretation Comments Monocytes (test code = Monocytes) 8.0 2.0-12.0 [facility]2015-06-08 23:00:00 Test Item Value Reference Range Interpretation Comments Total Protein (test code = Total 6.8 6.4-8.4 Protein) [facility] CenterQeionlqUVBJWOFGHE5887-66-03 23:00:00 Test Item Value Reference Range Interpretation Comments Lymphocytes # (test code = Lymphocytes 1.3 1.0-5.5 #) [facility] CenterZbknpwvGAXHQFEHVM3392-48-73 23:00:00 Test Item Value Reference Range Interpretation Comments RDW (test code = RDW) 13.5 11.5-14.5 [facility] CenterNmbtnwnICOVGMDCCU2092-83-59 23:00:00 Test Item Value Reference Range Interpretation Comments Segs (test code = Segs) 70.1 45.0-75.0 [place] 158315-06-08 23:00:00 Test Item Value Reference Range Interpretation Comments Platelet (test code = Platelet) 197 133-450 [facility] CenterXtjfxyiMKQYSIIPSI4662-94-96 23:00:00 Test Item Value Reference Range Interpretation Comments MCH (test code = MCH) 30.0 pg 27.0-31.0 [facility] CenterJimwdclKAYPFIRGCX1068-77-96 23:00:00 Test Item Value Reference Range Interpretation Comments MCHC (test code = MCHC) 33.7 32.0-36.0 [facility] CenterBevggpmSXOVRVNADO4101-11-76 23:00:00 Test Item Value Reference Range Interpretation Comments Hct (test code = Hct) 41.2 36.0-48.0 [facility] CenterNtbwibwYOPUSMNJYX3552-68-41 23:00:00 Test Item Value Reference Range Interpretation Comments MCV (test code = MCV) 89.2 80.0-98.0 [facility] CenterSplpqsnLPKXHWXLMJ8515-41-61 23:00:00 Test Item Value Reference Range Interpretation Comments MPV (test code = MPV) 8.0 7.4-10.4 [facility] CenterXuzmfnxVPCCSGZNJU6270-45-39 23:00:00 Test Item Value Reference Range Interpretation Comments Hgb (test code = Hgb) 13.9 12.0-16.0 [facility] CenterPdqaizzYDUWSRZEXG3585-37-04 23:00:00 Test Item Value Reference Range Interpretation Comments RBC (test code = RBC) 4.62 4.20-5.40 [facility] CenterPghwwqoDFJVRKHNYA5161-58-42 23:00:00 Test Item Value Reference Range Interpretation Comments WBC (test code = WBC) 7.0 3.7-10.4 [facility] CenterXkgulvuCYSHNOZWYS0047-20-20 23:00:00 Test Item Value Reference Range Interpretation Comments Segs-Bands # (test code = Segs-Bands #) 4.9 1.5-8.1 [facility] CenterYpeuikqIEOMFILVIP0385-71-16 23:00:00 Test Item Value Reference Range Interpretation Comments Eosinophils (test code = 2.2 See_Comment [A utomated message] The Eosinophils) system which ge nerated this result tra nsmitted reference range : <=4.0. The reference r rob was not used to int erpret this result as normal/abnormal . [facility] CenterPdqlmmtUVOBYVBPIU2203-44-98 23:00:00 Test Item Value Reference Range Interpretation Comments Basophils (test code = 0.5 See_Comment [Aut omated message] The Basophils) system which ge nerated this result tra nsmitted reference range : <=1.0. The reference r rob was not used to int erpret this result as normal/abnormal . [facility] CenterOuazshaOLXOICQTIE1300-10-34 23:00:00 Test Item Value Reference Range Interpretation Comments Eosinophils # (test code 0.2 See_Comment [A utomated message] The = Eosinophils #) system whic h generated this result tra nsmitted reference range : <=0.5. The reference r rob was not used to int erpret this result as normal/abnormal . [facility] CenterCpnoahlFTJHRHLXHT9889-02-19 23:00:00 Test Item Value Reference Range Interpretation Comments Basophils # (test code 0.0 See_Comment [Aut omated message] The = Basophils #) system which generated this result tra nsmitted reference range : <=0.2. The reference r rob was not used to int erpret this result as normal/abnormal . [facility] CenterOfskuxhBZLBPAZJJY2060-02-76 23:00:00 Test Item Value Reference Range Interpretation Comments Monocytes # (test code 0.6 See_Comment [Aut omated message] The = Monocytes #) system which generated this result tra nsmitted reference range : <=0.8. The reference r rob was not used to int erpret this result as normal/abnormal . [facility] CenterJxjwvrsNDEBWGLKND8467-17-23 23:00:00 Test Item Value Reference Range Interpretation Comments Lymphocytes (test code = Lymphocytes) 19.2 20.0-40.0 [facility] CenterJaxwmhfXYBGTTTILM2282-81-24 23:00:00 Test Item Value Reference Range Interpretation Comments Monocytes (test code = Monocytes) 8.0 2.0-12.0 [facility] CenterSrhpyjfHNLRUGQREV9400-36-68 23:00:00 Test Item Value Reference Range Interpretation Comments Lymphocytes # (test code = Lymphocytes 1.3 1.0-5.5 #) [facility] CenterUqseewtXWEYCRJEUC6793-88-61 23:00:00 Test Item Value Reference Range Interpretation Comments Segs (test code = Segs) 70.1 45.0-75.0 [facility]2015-06-08 21:45:00 Test Item Value Reference Range Interpretation Comments UA Urobilinogen (test code = UA <=1.0 mg/dL 0.1-1.0 Urobilinogen) [facility] AND [id number] 21:45:00 Test Item Value Reference Range Interpretation Comments UA Blood (test code = Negative (02/18/15 4:45 UA Blood) PM) [facility] AND [id number] 21:45:00 Test Item Value Reference Range Interpretation Comments UA Nitrite (test code Negative (02/18/15 4:45 = UA Nitrite) PM) [facility] AND [id number] 21:45:00 Test Item Value Reference Range Interpretation Comments UA Glucose (test code = UA >=1000 mg/dL Glucose) [facility] AND [id number] 21:45:00 Test Item Value Reference Range Interpretation Comments UA Bili (test code = Negative *NA*(02/18/15 UA Bili) 4:45 PM) [facility] AND [id number] 21:45:00 Test Item Value Reference Range Interpretation Comments UA Ketones (test code = UA Negative mg/dL Ketones) [facility] AND [id number] 21:45:00 Test Item Value Reference Range Interpretation Comments UA WBC (test code = no gt See_Comment [Automa gustavo message] The UA WBC) system which ge nerated this result transmit gustavo reference range : <=5. The reference range was not used to interpr et this result as layton l/abnormal. [facility] AND [id number] 21:45:00 Test Item Value Reference Range Interpretation Comments UA Leuk Est (test Negative (02/18/15 4:45 code = UA Leuk Est) PM) [facility] AND [id number] 21:45:00 Test Item Value Reference Range Interpretation Comments UA Sq Epi (test code = UA Sq Moderate /LPF Epi) [facility] AND [id number] 21:45:00 Test Item Value Reference Range Interpretation Comments UA Protein (test code = UA Protein) 20 mg/dL [facility] AND [id number] 21:45:00 Test Item Value Reference Range Interpretation Comments UA Turbidity (test code Slight *ABN*(02/18/15 = UA Turbidity) 4:45 PM) [facility] AND [id number] 21:45:00 Test Item Value Reference Range Interpretation Comments UA Color (test code = Yellow *NA*(02/18/15 4:45 UA Color) PM) [facility] AND [id number] 21:45:00 Test Item Value Reference Range Interpretation Comments UA Spec Grav (test code = UA Spec Grav) 1.017 [facility] AND [id number] 21:45:00 Test Item Value Reference Range Interpretation Comments UA pH (test code = UA pH) 8.0 5.0-8.0 [facility] AND [id number] 21:45:00 Test Item Value Reference Range Interpretation Comments UA Urobilinogen (test code = UA <=1.0 mg/dL 0.1-1.0 Urobilinogen) [facility] AND [id number] 21:45:00 Test Item Value Reference Range Interpretation Comments UA Blood (test code = Negative (02/18/15 4:45 UA Blood) PM) [facility] AND [id number] 21:45:00 Test Item Value Reference Range Interpretation Comments UA Nitrite (test code Negative (02/18/15 4:45 = UA Nitrite) PM) [facility] AND [id number] 21:45:00 Test Item Value Reference Range Interpretation Comments UA Glucose (test code = UA >=1000 mg/dL Glucose) [facility] AND [id number] 21:45:00 Test Item Value Reference Range Interpretation Comments UA Bili (test code = Negative *NA*(02/18/15 UA Bili) 4:45 PM) [facility] AND [id number] 21:45:00 Test Item Value Reference Range Interpretation Comments UA Ketones (test code = UA Negative mg/dL Ketones) [facility] AND [id number] 21:45:00 Test Item Value Reference Range Interpretation Comments UA WBC (test code = no gt See_Comment [Automa gustavo message] The UA WBC) system which ge nerated this result transmit gustavo reference range : <=5. The reference range was not used to interpr et this result as layton l/abnormal. [facility] AND [id number] 21:45:00 Test Item Value Reference Range Interpretation Comments UA Leuk Est (test Negative (02/18/15 4:45 code = UA Leuk Est) PM) [facility] AND [id number] 21:45:00 Test Item Value Reference Range Interpretation Comments UA Sq Epi (test code = UA Sq Moderate /LPF Epi) [facility] AND [id number] 21:45:00 Test Item Value Reference Range Interpretation Comments UA Protein (test code = UA Protein) 20 mg/dL [facility] AND [id number] 21:45:00 Test Item Value Reference Range Interpretation Comments UA Turbidity (test code Slight *ABN*(02/18/15 = UA Turbidity) 4:45 PM) [facility] AND [id number] 21:45:00 Test Item Value Reference Range Interpretation Comments UA Color (test code = Yellow *NA*(02/18/15 4:45 UA Color) PM) [facility] AND [id number] 21:45:00 Test Item Value Reference Range Interpretation Comments UA Spec Grav (test code = UA Spec Grav) 1.017 [facility] AND [id number] 21:45:00 Test Item Value Reference Range Interpretation Comments UA pH (test code = UA pH) 8.0 5.0-8.0 [facility] AND [id number] 21:45:00 Test Item Value Reference Range Interpretation Comments UA Urobilinogen (test code = UA <=1.0 mg/dL 0.1-1.0 Urobilinogen) [facility] AND [id number] 21:45:00 Test Item Value Reference Range Interpretation Comments UA Blood (test code = Negative (02/18/15 4:45 UA Blood) PM) [facility] AND [id number] 21:45:00 Test Item Value Reference Range Interpretation Comments UA Nitrite (test code Negative (02/18/15 4:45 = UA Nitrite) PM) [facility] AND [id number] 21:45:00 Test Item Value Reference Range Interpretation Comments UA Glucose (test code = UA >=1000 mg/dL Glucose) [facility] AND [id number] 21:45:00 Test Item Value Reference Range Interpretation Comments UA Bili (test code = Negative *NA*(02/18/15 UA Bili) 4:45 PM) [facility] AND [id number] 21:45:00 Test Item Value Reference Range Interpretation Comments UA Ketones (test code = UA Negative mg/dL Ketones) [facility] AND [id number] 21:45:00 Test Item Value Reference Range Interpretation Comments UA WBC (test code = no gt See_Comment [Automa gustavo message] The UA WBC) system which ge nerated this result transmit gustavo reference range : <=5. The reference range was not used to interpr et this result as layton l/abnormal. [facility] AND [id number] 21:45:00 Test Item Value Reference Range Interpretation Comments UA Leuk Est (test Negative (02/18/15 4:45 code = UA Leuk Est) PM) [facility] AND [id number] 21:45:00 Test Item Value Reference Range Interpretation Comments UA Sq Epi (test code = UA Sq Moderate /LPF Epi) [facility] AND [id number] 21:45:00 Test Item Value Reference Range Interpretation Comments UA Protein (test code = UA Protein) 20 mg/dL [facility] AND [id number] 21:45:00 Test Item Value Reference Range Interpretation Comments UA Turbidity (test code Slight *ABN*(02/18/15 = UA Turbidity) 4:45 PM) [facility] AND [id number] 21:45:00 Test Item Value Reference Range Interpretation Comments UA Color (test code = Yellow *NA*(02/18/15 4:45 UA Color) PM) [facility] AND [id number] 21:45:00 Test Item Value Reference Range Interpretation Comments UA Spec Grav (test code = UA Spec Grav) 1.017 [facility] AND [id number] 21:45:00 Test Item Value Reference Range Interpretation Comments UA pH (test code = UA pH) 8.0 5.0-8.0 [facility] AND [id number] 21:45:00 Test Item Value Reference Range Interpretation Comments UA Urobilinogen (test code = UA <=1.0 mg/dL 0.1-1.0 Urobilinogen) [facility] AND [id number] 21:45:00 Test Item Value Reference Range Interpretation Comments UA Blood (test code = Negative (02/18/15 4:45 UA Blood) PM) [facility] AND [id number] 21:45:00 Test Item Value Reference Range Interpretation Comments UA Nitrite (test code Negative (02/18/15 4:45 = UA Nitrite) PM) [facility] AND [id number] 21:45:00 Test Item Value Reference Range Interpretation Comments UA Glucose (test code = UA >=1000 mg/dL Glucose) [facility] AND [id number] 21:45:00 Test Item Value Reference Range Interpretation Comments UA Bili (test code = Negative *NA*(02/18/15 UA Bili) 4:45 PM) [facility] AND [id number] 21:45:00 Test Item Value Reference Range Interpretation Comments UA Ketones (test code = UA Negative mg/dL Ketones) [facility] AND [id number] 21:45:00 Test Item Value Reference Range Interpretation Comments UA WBC (test code = no gt See_Comment [Automa gustavo message] The UA WBC) system which ge nerated this result transmit gustavo reference range : <=5. The reference range was not used to interpr et this result as layton l/abnormal. [facility] AND [id number] 21:45:00 Test Item Value Reference Range Interpretation Comments UA Leuk Est (test Negative (02/18/15 4:45 code = UA Leuk Est) PM) [facility] AND [id number] 21:45:00 Test Item Value Reference Range Interpretation Comments UA Sq Epi (test code = UA Sq Moderate /LPF Epi) [facility] AND [id number] 21:45:00 Test Item Value Reference Range Interpretation Comments UA Protein (test code = UA Protein) 20 mg/dL [facility] AND [id number] 21:45:00 Test Item Value Reference Range Interpretation Comments UA Turbidity (test code Slight *ABN*(02/18/15 = UA Turbidity) 4:45 PM) [facility] AND [id number] 21:45:00 Test Item Value Reference Range Interpretation Comments UA Color (test code = Yellow *NA*(02/18/15 4:45 UA Color) PM) [facility] AND [id number] 21:45:00 Test Item Value Reference Range Interpretation Comments UA Spec Grav (test code = UA Spec Grav) 1.017 [facility] AND [id number] 21:45:00 Test Item Value Reference Range Interpretation Comments UA pH (test code = UA pH) 8.0 5.0-8.0 [facility] AND [id number] 21:45:00 Test Item Value Reference Range Interpretation Comments UA Urobilinogen (test code = UA <=1.0 mg/dL 0.1-1.0 Urobilinogen) [facility] AND [id number] 21:45:00 Test Item Value Reference Range Interpretation Comments UA Blood (test code = Negative (02/18/15 4:45 UA Blood) PM) [facility] AND [id number] 21:45:00 Test Item Value Reference Range Interpretation Comments UA Nitrite (test code Negative (02/18/15 4:45 = UA Nitrite) PM) [facility] AND [id number] 21:45:00 Test Item Value Reference Range Interpretation Comments UA Glucose (test code = UA >=1000 mg/dL Glucose) [facility] AND [id number] 21:45:00 Test Item Value Reference Range Interpretation Comments UA Bili (test code = Negative *NA*(02/18/15 UA Bili) 4:45 PM) [facility] AND [id number] 21:45:00 Test Item Value Reference Range Interpretation Comments UA Ketones (test code = UA Negative mg/dL Ketones) [facility] AND [id number] 21:45:00 Test Item Value Reference Range Interpretation Comments UA WBC (test code = no gt See_Comment [Automa gustavo message] The UA WBC) system which ge nerated this result transmit gustavo reference range : <=5. The reference range was not used to interpr et this result as layton l/abnormal. [facility] AND [id number] 21:45:00 Test Item Value Reference Range Interpretation Comments UA Leuk Est (test Negative (02/18/15 4:45 code = UA Leuk Est) PM) [facility] AND [id number] 21:45:00 Test Item Value Reference Range Interpretation Comments UA Sq Epi (test code = UA Sq Moderate /LPF Epi) [facility] AND [id number] 21:45:00 Test Item Value Reference Range Interpretation Comments UA Protein (test code = UA Protein) 20 mg/dL [facility] AND [id number] 21:45:00 Test Item Value Reference Range Interpretation Comments UA Turbidity (test code Slight *ABN*(02/18/15 = UA Turbidity) 4:45 PM) [facility] AND [id number] 21:45:00 Test Item Value Reference Range Interpretation Comments UA Color (test code = Yellow *NA*(02/18/15 4:45 UA Color) PM) [facility] AND [id number] 21:45:00 Test Item Value Reference Range Interpretation Comments UA Spec Grav (test code = UA Spec Grav) 1.017 [facility] AND [id number] 21:45:00 Test Item Value Reference Range Interpretation Comments UA pH (test code = UA pH) 8.0 5.0-8.0 [facility]
[2023-01-27 23:54] LABS: Hematocrit 43.2 % (36.0-45.0); Lymphocytes % 24.4 % (15.3-44.8); MCV 87.8 fL (80-100); MPV 8.2 fL (7.6-11.3); RBC Red Blood Cell Count 4.93 M/uL (3.86-4.86)
[2023-01-28 00:05] LABS: Albumin 3.5 g/dL (3.4-5.0); Bilirubin Direct 0.2 mg/dL (0-0.2); Bilirubin Indirect, Calculated 0.3 mg/dL (0.2-0.8); Bilirubin Total 0.5 mg/dL (0.2-1.0); Potassium 3.9 mEq/L (3.5-5.1); Protein, Total 7.6 g/dL (6.4-8.2); Troponin High Sensitivity 32.1 pg/mL (<58.9)
[2023-01-28 00:21] LABS: Blood Morphology Comment NOT SEEN (NOT SEEN)
[2023-01-28 00:22] LABS: Platelet Estimate ADEQ
--- NOTE | 2023-01-28 00:45 | EDPHYS ---
Physician Documentation [facility] Name: Patsy Tai Age: 82 yrs Sex: Female : 1940 Arrival Date: 01/27/2023 Time: 23:09 Bed 6 Private MD: ED Physician Enmanuel Núñez HPI: 01/27 23:26 This 82 yrs old Female presents to ER via EMS with complaints of Shortness Of Breath, sp3 Cough. 23:26 82-year-old female with a history of atrial fibrillation, diabetes, fibromyalgia sp3 presents ED with chief complaint of 4 days of cough, shortness of breath, body aches and also reports COVID-19 exposure on Mother's Day which was 4 days ago. Patient denies chest pain, neck pain, headache, abdominal pain, nausea, vomiting, diarrhea, back pain, fever, or any other signs or symptoms on ROS at this time. Patient states the cough has been severe with mucus production.. Historical: - Allergies: 23:13 tramadol; kd3 23:13 Percodan; kd3 23:13 Hydrocodone-Acetaminophen; kd3 23:13 Fentanyl; kd3 23:13 Darvon; kd3 23:13 Darvocet-N 100; kd3 23:13 Codeine; kd3 23:13 Ancef; kd3 - PMHx: 23:13 Atrial Fib; Diabetes - IDDM; Fibromyalgia; kd3 - Immunization history:: Adult Immunizations up to date. - Social history:: Smoking status: Patient denies any tobacco usage or history of. ROS: 23:27 Constitutional: Negative for fever, chills, and weight loss, Eyes: Negative for injury, sp3 pain, redness, and discharge, ENT: Negative for injury, pain, and discharge, Neck: Negative for injury, pain, and swelling, Cardiovascular: Negative for chest pain, palpitations, and edema, Abdomen/GI: Negative for abdominal pain, nausea, vomiting, diarrhea, and constipation, Back: Negative for injury and pain, MS/Extremity: Negative for injury and deformity, Skin: Negative for injury, rash, and discoloration, Neuro: Negative for headache, weakness, numbness, tingling, and seizure, Psych: Negative for depression, anxiety, suicide ideation, homicidal ideation, and hallucinations, Allergy/Immunology: Negative for hives, rash, and allergies, Endocrine: Negative for neck swelling, polydipsia, polyuria, polyphagia, and marked weight changes, Hematologic/Lymphatic: Negative for swollen nodes, abnormal bleeding, and unusual bruising. 23:27 All other systems are negative. Exam: 23:27 Constitutional: This is a well developed, well nourished patient who is awake, alert, sp3 and in no acute distress. Head/Face: Normocephalic, atraumatic. Eyes: Pupils equal round and reactive to light, extra-ocular motions intact. Lids and lashes normal. Conjunctiva and sclera are non-icteric and not injected. Cornea within normal limits. Periorbital areas with no swelling, redness, or edema. ENT: Nares patent. No nasal discharge, no septal abnormalities noted. External auditory canals are clear. Oropharynx with no redness, swelling, or masses, exudates, or evidence of obstruction, uvula midline. Mucous membranes moist. Neck: Trachea midline, no thyromegaly or masses palpated, and no cervical lymphadenopathy. Supple, full range of motion without nuchal rigidity, or vertebral point tenderness. No Meningismus. Chest/axilla: Normal chest wall appearance and motion. Nontender with no deformity. No lesions are appreciated. Cardiovascular: Regular rate and rhythm with a normal S1 and S2. No gallops, murmurs, or rubs. Normal PMI, no JVD. No pulse deficits. Abdomen/GI: Soft, non-tender, with normal bowel sounds. No distension or tympany. No guarding or rebound. No evidence of tenderness throughout. Skin: Warm, dry with normal turgor. Normal color with no rashes, no lesions, and no evidence of cellulitis. MS/ Extremity: Pulses equal, no cyanosis. Neurovascular intact. Full, normal range of motion. Neuro: Awake and alert, GCS 15, oriented to person, place, time, and situation. Cranial nerves II-XII grossly intact. Motor strength 5/5 in all extremities. Sensory grossly intact. Cerebellar exam normal. Normal gait. 23:27 ECG was reviewed by the Attending Physician. EKG demonstrates normal sinus rhythm at 83 bpm with [place] interval at 218 and a first-degree AV block, poor R wave progression and nonspecific diffuse ST/T changes without evidence of acute ischemia. Vital Signs: 23:11 BP 177 / 64; Pulse 91; Resp 23; Temp 98.6(O); Pulse Ox 97% on R/A; Weight 169.19 kg; kd3 Height 5 ft. 5 in. ; 01/28 00:06 BP 129 / 54; Pulse 82; Resp 19; Pulse Ox 96% on R/A; kd3 01:49 BP 123 / 56; Pulse 86; Resp 19; Pulse Ox 96% on R/A; kd3 01/27 23:11 Body Mass Index 62.07 (169.19 kg, 165.1 cm) kd3 MDM: 01/27 23:15 Patient medically screened. sp3 23:28 Data reviewed: vital signs, nurses notes, EMS record, lab test result(s), EKG, sp3 radiologic studies. ED course: 82-year-old female with cough and shortness of breath. Differential diagnosis is broad and includes pneumonia, viral syndrome, COVID-19, bronchitis, CHF exacerbation, acute coronary syndrome, among others. I not believe patient is in sepsis, shock, or any other extremis at this time. Disposition will be determined on data acquisition and patient course.. 01/28 00:43 ED course: Chest x-ray demonstrates no infiltrate. Laboratory values are within normal sp3 limits and swabs are negative. We will treat as bronchitis. Albuterol breathing treatment and 1 dose of Levaquin will be given in the ED and I will discharge her home on Levaquin as well. I advised her to retest for COVID-19 next Wednesday with her primary care physician. She is okay with the plan and all questions have been answered.. 01/27 23:15 Order name: Basic Metabolic Panel; Complete Time: 00:26 3 01/27 23:15 Order name: CBC with Diff; Complete Time: 00: 3 01/27 23:15 Order name: LFT's; Complete Time: 00: 3 01/27 23:15 Order name: NT PRO-BNP; Complete Time: 00: 3 01/27 23:15 Order name: PT-INR; Complete Time: 00: 3 01/27 23:15 Order name: Troponin HS; Complete Time: 00:26 3 01/27 23:15 Order name: SARS-COV-2 RT PCR; Complete Time: 00: 3 01/27 23:15 Order name: Flu; Complete Time: 00:26 sp3 01/27 23:57 Order name: Manual Differential; Complete Time: 00:26 EDMS 01/27 23:15 Order name: XRAY Chest (1 view) sp3 01/27 23:15 Order name: EKG; Complete Time: 23:16 sp3 01/27 23:15 Order name: Cardiac monitoring; Complete Time: 23:22 sp3 01/27 23:15 Order name: EKG - Nurse/Tech; Complete Time: 23:15 sp3 01/27 23:15 Order name: IV Saline Lock; Complete Time: 23:30 sp3 01/27 23:15 Order name: Labs collected and sent; Complete Time: 23:30 sp3 01/27 23:15 Order name: O2 Per Protocol; Complete Time: 23:22 sp3 01/27 23:15 Order name: O2 Sat Monitoring; Complete Time: 23:22 sp3 Administered Medications: 00:58 Drug: Albuterol Inhalation 2.5 mg Route: Inhalation; kd3 00:58 Drug: levofloxacin IVPB 500 mg Volume: 100 ml; Route: IVPB; Infused Over: 60 mins; kd3 Site: right antecubital; 01:50 Follow up: Response: No adverse reaction; IV Status: Completed infusion; IV Intake: kd3 200ml 00:58 Drug: Ondansetron IVP 4 mg Route: IVP; Site: right antecubital; kd3 01:50 Follow up: Response: No adverse reaction; Nausea is decreased kd3 Disposition Summary: 01/28/23 00:44 Discharge Ordered Location: Home sp3 Condition: Stable sp3 Diagnosis - Bronchitis sp3 Followup: sp3 - With: Private Physician - When: Upon discharge from the Emergency Department - Reason: Recheck today's complaints, Continuance of care Discharge Instructions: - Discharge Summary Sheet sp3 - Acute Bronchitis, Adult sp3 Forms: - Medication Reconciliation Form sp3 - Thank You Letter sp3 - Antibiotic Education sp3 - Prescription Opioid Use sp3 Prescriptions: - levofloxacin 500 mg Oral Tablet - take 1 tablet by ORAL route once daily for 7 days; 6 tablet; Refills: 0, sp3 Product Selection Permitted Signatures: Dispatcher [employer] Enmanuel Daniels MD MD sp3 Priscilla Zaman RN RN kd3
--- NOTE | 2023-01-28 00:45 | ER ---
Nurse's Notes [facility] Name: Patsy Tai Age: 82 yrs Sex: Female : 1940 Arrival Date: 01/27/2023 Time: 23:09 Bed 6 Private MD: Diagnosis: Bronchitis Presentation: 01/27 23:11 Chief complaint: EMS states: Pt called EMS for Shortness of breath and coughing that kd3 started last week. Pt has had an xray, which was clear, and was tested for covid and was negative. Pt has bilateral wheezes in the upper lobes and complains of a headache from coughing and a sore throat. Coronavirus screen: Vaccine status: Patient reports being unvaccinated. Ebola Screen: No symptoms or risks identified at this time. Initial Sepsis Screen: Does the patient meet any 2 criteria? No. Patient's initial sepsis screen is negative. Does the patient have a suspected source of infection? No. Patient's initial sepsis screen is negative. Risk Assessment: Do you want to hurt yourself or someone else? Patient reports no desire to harm self or others. Onset of symptoms was January 27, 2023. 23:11 Method Of Arrival: EMS: [facility] kd3 23:11 Acuity: VALERIA 3 kd3 Triage Assessment: 23:13 General: Appears uncomfortable, Behavior is calm, cooperative. Pain: Complains of pain kd3 in headache. Neuro: Level of Consciousness is awake, alert, obeys commands, Oriented to person, place, time, situation. Cardiovascular: Patient's skin is warm and dry. Respiratory: Reports shortness of breath at rest Onset: The symptoms/episode began/occurred gradually, the patient has moderate shortness of breath. GI: Abdomen is non-distended, obese. Historical: - Allergies: 23:13 tramadol; kd3 23:13 Percodan; kd3 23:13 Hydrocodone-Acetaminophen; kd3 23:13 Fentanyl; kd3 23:13 Darvon; kd3 23:13 Darvocet-N 100; kd3 23:13 Codeine; kd3 23:13 Ancef; kd3 - PMHx: 23:13 Atrial Fib; Diabetes - IDDM; Fibromyalgia; kd3 - Immunization history:: Adult Immunizations up to date. - Social history:: Smoking status: Patient denies any tobacco usage or history of. Screenin/18 00:08 [facility] ED Fall Risk Assessment (Adult) History of falling in the last 3 months, kd3 including since admission No falls in past 3 months (0 pts) Confusion or Disorientation No (0 pts) Intoxicated or Sedated No (0 pts) Impaired Gait No (0 pts) Mobility Assist Device Used No (0 pt) Altered Elimination No (0 pt) Score/Fall Risk Level 0 - 2 = Low Risk Maintained a safe environment. Abuse screen: Denies threats or abuse. Denies injuries from another. Nutritional screening: No deficits noted. Tuberculosis screening: No symptoms or risk factors identified. Assessment: 00:08 General: Appears uncomfortable, Behavior is calm, cooperative. Pain: Complains of pain kd3 in headache. Cardiovascular: Rhythm is sinus rhythm. Respiratory: Airway is patent Respiratory effort is even, unlabored, Sputum is thin, clear. 00:09 Respiratory: Breath sounds with wheezes bilaterally. kd3 00:58 General: pt receiving medications. When finished, will discharge home . kd3 Vital Signs: 01/27 23:11 BP 177 / 64; Pulse 91; Resp 23; Temp 98.6(O); Pulse Ox 97% on R/A; Weight 169.19 kg; kd3 Height 5 ft. 5 in. ; 01/28 00:06 BP 129 / 54; Pulse 82; Resp 19; Pulse Ox 96% on R/A; kd3 01:49 BP 123 / 56; Pulse 86; Resp 19; Pulse Ox 96% on R/A; kd3 01/27 23:11 Body Mass Index 62.07 (169.19 kg, 165.1 cm) kd3 ED Course: 01/27 23:10 Patient arrived in ED. kd3 23:12 Enmanuel Núñez MD is Attending Physician. sp3 23:13 Triage completed. kd3 23:13 Arm band placed on left wrist. EKG completed in triage. Results shown to . kd3 23:21 EKG done, by ED staff, reviewed by Enmanuel Núñez MD. wm 23:22 Call light in reach. Side rails up X2. Client placed on continuous cardiac and pulse wm oximetry monitoring. NIBP monitoring applied. monitoring analyst on. Pulse ox on. 23:30 Priscilla Zaman RN is Primary Nurse. kd3 23:30 Flu Sent. kd3 23:30 SARS-COV-2 RT PCR Sent. kd3 23:30 Basic Metabolic Panel Sent. kd3 23:30 CBC with Diff Sent. kd3 23:30 LFT's Sent. kd3 23:30 NT PRO-BNP Sent. kd3 23:30 PT-INR Sent. kd3 23:30 Troponin HS Sent. kd3 23:30 Inserted saline lock: 20 gauge in right antecubital area, using aseptic technique. kd3 Blood collected. 23:36 XRAY Chest (1 view) In Process Unspecified. EDWI 01/28 01:50 No provider procedures requiring assistance completed. IV discontinued, intact, kd3 bleeding controlled, No redness/swelling at site. Pressure dressing applied. Administered Medications: 00:58 Drug: Albuterol Inhalation 2.5 mg Route: Inhalation; kd3 00:58 Drug: levofloxacin IVPB 500 mg Volume: 100 ml; Route: IVPB; Infused Over: 60 mins; kd3 Site: right antecubital; 01:50 Follow up: Response: No adverse reaction; IV Status: Completed infusion; IV Intake: kd3 200ml 00:58 Drug: Ondansetron IVP 4 mg Route: IVP; Site: right antecubital; kd3 01:50 Follow up: Response: No adverse reaction; Nausea is decreased kd3 Medication: 00:09 VIS not applicable for this client. kd3 Intake: 01:50 IV: 200ml; Total: 200ml. kd3 Outcome: 00:44 Discharge ordered by . sp3 01:50 Discharged to home via wheelchair. kd3 01:50 Condition: stable 01:50 Discharge instructions given to patient, Instructed on discharge instructions, follow up and referral plans. Demonstrated understanding of instructions, follow-up care, medications, Prescriptions given X 1. 01:57 Patient left the ED. kd3 Signatures: Dispatcher [employer] EDWI Gladys Drummond Enmanuel Núñez MD MD sp3 Priscilla Zaman RN RN kd3
[2023-01-28] MEDS ORDERED: Levofloxacin500mg IV 500 MG/100 ML BAG IV ONE (00:48)
[2023-01-28] MEDS ORDERED: ALBUTEROL 2.5 MG/3 ML NEB SOL ONE (00:48)
[2023-01-28] MEDS ORDERED: WATER FOR INJ,STERILE 10 ML ONE (00:49)
[2023-01-28] MEDS ORDERED: ONDANSETRON 4 MG/2 ML VIAL ONE (00:57)
[2023-01-28 02:25] VITALS: TEMP 98.6
[2023-01-28 02:30] VITALS: O2SAT 96
[2023-01-28 02:32] VITALS: BP 123/56
--- NOTE | 2023-01-28 11:21 | EKG ---
Test Date: 2023-01-27 Test Time: 23:14:08 Planning Rn: MEASUREMENT RESULTS: Intervals: Rate: 83 KS: 218 QRSD: 82 QT: 366 QTc: 430 [place]: P: -28 KS: 218 QRS: -62 T: 70 INTERPRETIVE STATEMENTS: Sinus rhythm with 1st degree AV block Left axis deviation Low voltage QRS Septal infarct, age undetermined Abnormal ECG Compared to ECG 01/08/2020 08:10:49 No significant changes Electronically Signed On 01-28-23 11:20:00 CDT by Stevenson Leary
--- NOTE | 2023-01-28 17:54 | RAD REPORT ---
EXAM DESCRIPTION: RAD - Chest Single View - 01/27/2023 11:34 pm CLINICAL HISTORY: COUGH TECHNIQUE: Frontal view of the chest. COMPARISON: No relevant prior studies available. FINDINGS: Lungs: Unremarkable. No consolidation. Pleural space: Unremarkable. No pneumothorax. Heart: Unremarkable. No cardiomegaly. Mediastinum: Unremarkable. Bones/joints: Unremarkable. IMPRESSION: No acute disease. Electronically signed by: Jorge Agustin MD 01/27/2023 11:48 PM CDT Due to temporary technical issues with the PACS/Fluency reporting system, reports are being signed by the in house radiologists without review as a courtesy to insure prompt reporting. The interpreting radiologist is fully responsible for the content of the report.
== END 2023-01-28 01:57 | disposition home or self-care (01) ==
LOC: ER 23:09
DX: J40 Bronchitis, not specified as acute or chronic (principal); I48.91 Unspecified atrial fibrillation; E11.9 Type 2 diabetes mellitus without complications; Z20.822 Contact with and (suspected) exposure to COVID-19; Z88.5 Allergy status to narcotic agent; Z88.8 Allergy status to other drugs, medicaments and biological substances
CPT/HCPCS: 96365; 93005; 85025; 80048; 36415; 85610; 80076; 84484; 83880; 87804 ×2; 71045; 96375; 99285; U0003; J7613; J2405

== ENCOUNTER 2023-03-16 12:47 | Emergency (ER) | payer OTHER ==
--- OUTSIDE RECORDS SUMMARY | 2023-03-16 13:10 | XMS REPORT | Continuity of Care Document ---
:[address] [facility] t Address [address] [place] [address] Care Team Providers Name Role Phone LEROY PENALOZA Primary Care Physician Unavailable Chelo Attending Clinician Unavailable Criss Mckinney MD Attending Clinician CRISS MCKINNEY Attending Clinician Unavailable Villasana_T_DNU Attending Clinician Unavailable Bernwill_Theodora Attending Clinician Unavailable Steven CAST, Darío Attending Clinician Polo CAST, Man Ponce Attending Clinician MICHELLE YEE Attending Clinician Unavailable KAREN HURST Attending Clinician Unavailable DES GEORGE Attending Clinician Unavailable Herve Attending Clinician Unavailable PETE KILGORE Attending Clinician Unavailable EARL GALINDO Attending Clinician Unavailable VEDA WOOTEN Attending Clinician Unavailable Physician, Non Associated Attending Clinician Unavailable Dorie Mcneill Attending Clinician Chelo Admitting Clinician Unavailable CRISS MCKINNEY Admitting Clinician Unavailable Federico_T_DNU Admitting Clinician Unavailable Bernstein_H Admitting Clinician Unavailable MAN DENISE Admitting Clinician Unavailable KAREN HURST Admitting Clinician Unavailable Abrshirlene_Luiz Admitting Clinician Unavailable EARL GALINDO Admitting Clinician Unavailable Payers Payer Name Policy Type Policy Number Effective Date Expiration Date Jose aviles [place]ICARE B-[place]: [id number] 2018 [employer]fect 00:00:00 WPS - FOR [id number] LIFE (MEDICARE SUPPLEMENT) Problems Condition Condition Condition Status Onset Resolution Last Treating Co mments Source Name Details Category Date Date Treatment Clinician Date Morbid Morbid Disease Active Univers obesity obesity 5-03 ity of 00:00: [place] 00 Medical Branch Senile Senile Problem Active [facility] purpura Purpura 3-17 Family 00:00: Practic 00 e Stable Stable Problem Active [facility] angina Angina 3-17 Family 00:00: Practic 00 [...] 2016-05-11 Memoria "HEPATOMEG "HEPATOMEG 03-20 12:55:00 l SOCOROR, NOT SOCORRO, NOT 00:01: Alan montes ELSEWHERE ELSEWHERE 00 CL" CL" Active 03/20/2016 [facility] OPID [facility] URINARY URINARY Diagnosis Active 2015-02-18 Memoria PROBLEMS PROBLEMS 02-18 18:24:00 l Active 00:00: Bruce 02/18/2015 00 [facility] CAD CAD Disease Active Univers (coronary (coronary 02-17 ity of artery artery 00:00: [place] disease) disease) 00 Medica l Branch Coronary Coronary Problem Active [facility] arterioscl Arterioscl 02-17 Rebecca resendiz erosis in erosis in 00:00: Prac tic kenaitze [place] 00 e artery 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 diabetes Diabetes 04-25 Family mellitus Mellitus 00:00: Practi c with with 00 e peripheral Peripheral angiopathy Angiopathy Hypothyroi Hypothyroi Problem Active [facility] dism dism 05-25 Family 00:00: Practic 00 e Polyneurop Polyneurop Problem Active [facility] athy due athy Due 05-22 Family to to 00:00: Practic diabetes Diabetes 00 e mellitus Mellitus Pure Pure Problem Active [facility] hyperchole Hyperchole 05-22 Rebecca resendiz sterolemia sterolemia 00:00: Pr actic 00 e Restless Restless Problem Active [facility] legs Legs 05-22 Family 00:00: Practic 00 e Benign Benign Problem Active [facility] essential Essential 05-22 Fami ly hypertensi Hypertensi 00:00: Pr actic on on 00 e Sleep Sleep Problem Active [facility] apnea Apnea 05-22 Family 00:00: Practic 00 e Pneumonia Pneumonia Problem Resolve 2016-04-04 Memoria (disorder) (disorder) d 00:53:24 l Resolved [place] Problem 04/04/2016 [facility] Diabetes Diabetes Problem Active 2018-08-11 Memoria mellitus mellitus 03:05:59 l type II type II [place] Active Problem 08/11/2018 [facility] Angina Angina Problem Active 2018-08-11 William masoud pectoris pectoris 03:05:59 l NOS NOS Active Alan n Problem 08/11/2018 [facility] OBESITY OBESITY Problem Active 2018-08-11 M emoria NOS NOS Active 03:05:59 l Problem [place] 08/11/2018 [facility] Coronary Coronary Problem Active 2018-08-11 Memoria atheroscle atheroscle 03:05:59 l rosis of rosis of Alan n kenaitze kenaitze vessel vessel Active Problem 08/11/2018 [facility] Cardiomyop Cardiomyo Problem Active 2018-08-11 Memoria athy NOS venkatesh NOS 03:05:59 l Active [place] Problem 08/11/2018 [facility] Chest Chest Problem Active 2018-08-11 Memor ia pain, pain, 03:05:59 l precordial precordial He [...] heart heart Bruce disease of disease of kenaitze kenaitze coronary coronary artery artery with with angina angina pectoris pectoris Active Problem 08/11/2018 [facility] Edema Edema Problem Active 2018-08-11 Memor ia Active 03:05:59 l Problem [place] 08/11/2018 [facility] Obesity Obesity Problem Active 2018-08-11 Me moria Active 03:05:59 l Problem [place] 08/11/2018 [facility] Atheroscle Atheroscl Problem Active 2018-08-11 Memoria rotic erotic 03:05:59 l heart heart [place] disease of disease of kenaitze kenaitze coronary coronary artery artery without without angina angina pectoris pectoris Active Problem 08/11/2018 [facility] Venous Venous Problem Active 2018-08-11 William masoud insufficie insufficie 03:05:59 l ncy ncy Active Alan n Problem 08/11/2018 [facility] Hyperlipem Hyperlipe Problem Active 2018-08-11 Memoria ia lizbeth Active 03:05:59 l Problem [place] 08/11/2018 [facility] Cardiac Cardiac Problem Active 2018-08-11 Me moria arrhythmia arrhythmia 03:05:59 l NOS NOS [place] Active Problem 08/11/2018 [facility] ABN BLOOD ABN BLOOD Problem Active 2018-08-11 Memoria CHEMISTRY CHEMISTRY 03:05:59 l NEC NEC Active Alan n Problem 08/11/2018 [facility] Other Other Problem Active 2018-08-11 Memor ia hyperlipid hyperlipid 03:05:59 l emia emia [place] Active Problem 08/11/2018 [facility] Shortness Shortness Problem Active 2018-08-11 Memoria of breath of breath 03:05:59 l Active [place] Problem 08/11/2018 [facility] Encounter Encounter [...] Care Cardiomyop Cardiomyo Problem Active 2018-08-11 Memoria venkatesh dailey, 03:05:59 l unspecifie unspecifie He rmann d d Active Problem 08/11/2018 [facility] Morbid Morbid Problem Active 2018-08-11 William masoud obesity obesity 03:05:59 l Active [place] Problem 08/11/2018 [facility] Pain in Pain in Problem Active 2018-08-11 Me moria limb limb 03:05:59 l Active [place] Problem 08/11/2018 [facility] Venous Venous Problem Active 2018-08-11 William masoud (periphera (periphera 03:05:59 l l) l) [place] insufficie insufficie ncy, ncy, unspecifie unspecifie d d Active Problem 08/11/2018 [facility] Cellulitis Celluliti Problem Active 2018-08-11 Memoria leg s leg 03:05:59 l Active [place] Problem 08/11/2018 [facility] Urinary Urinary Problem Active 2018-08-11 Me moria Tract Tract 03:05:59 l Infection Infection Herm ina NOS NOS Active Problem 08/11/2018 [facility] ATH EXT ATH EXT Problem Active 2018-08-11 Me moria NTV AT W NTV AT W 03:05:59 l CLAUDCT CLAUDCT [place] Active Problem 08/11/2018 [facility] Urinary Urinary Problem Active 2018-08-11 Me rohini frequency frequency 03:05:59 l Active [place] Problem 08/11/2018 [facility] Generalize Generaliz Problem Active 2018-08-11 Memoria d muscle ed muscle 03:05:59 l ache ache [place] Active Problem 08/11/2018 [facility] Body [...] 02-18 06:03:23 06:03:23 l CHF CHF 05:00: [place] (congestiv (congestiv 00 e heart e heart failure) failure) 02/18/2015 02/21/2015 [facility] Allergies, Adverse Reactions, Alerts Allergy Allergy Status Severity Reaction(s) Onset Inactive Treating Comm ents Source Name Type Date Date Clinician Doxycycl Drug Active Other - See Uni vers ine Allergy comments 01-13 ity of 00:00: [place] 00 Medical Branch DOXYCYCL DRUG Active Med Other-Cmnt Univ ers INE INGREDI 01-13 ity of 00:00: [place] 00 Medical Branch Statins- Propensi Active Other (See Muscle Me thodi Hmg-Coa ty to Comments) 2-[address] Reductas adverse 00:00: aches and Hosp rick e reaction 00 cramps l Inhibito s to rs drug Tramadol Propensi Active GI Nausea Method i ty to Intolerance 2-04 [...] pain managemen t Hydrocod Propensi Active GI 2020-0 Nausea Method i one ty to Intolerance 2-[address] adverse 00:00: vomiting. Hospit a reaction 00 Patient l s to states drug she can tolerate low dose Demerol (Meperidi ne) and tylenol for pain managemen t Oxycodon Propensi Active GI 2020-0 Nausea Method i e ty to Intolerance [...] and ity of adverse Vomiting 00:00: vomiting. Magno s reaction 00 Patient Medical s [facility] Branch she can tolerate low dose Demerol (Meperidi ne) and tylenol for pain managemen t Oxycodon Propensi Active Nausea 2020-0 Nausea Univer s e ty to and/or 2-04 and ity of adverse Vomiting 00:00: vomiting. Magno s reaction 00 Patient Medical s states Branch she can tolerate low dose Demerol (Meperidi ne) and tylenol for pain managemen t Statins- Propensi Active Other - See Muscle U nivers Hmg-Coa ty to comments 10-17 pain and ity o f [place] adverse 00:00: aches and [place] reaction 00 cramps Medical Inhibito s Branch rs HYDROCOD DRUG Active N/V Univers ONE INGREDI 10-17 ity of 00:00: Medical Branch OXYCODON DRUG Active N/V Univers E INGREDI 10-17 ity of 00:00: Medical Branch Codeine Propensi Active GI Nausea Methodi ty to Intolerance [address] adverse 00:00: vomiting. Hospit a reaction 00 Patient l s to states drug she can tolerate low dose Demerol (Meperidi ne) and tylenol for pain managemen t Iodine Propensi Active Other (See Possible Me thodi ty to Comments) 09-30 allergy, st adverse 00:00: pt not Hospita reaction 00 sure. l s to drug Iodine Propensi Active Other - See Possible U nivers ty to comments 09-30 allergy, ity of adverse 00:00: pt not [place] reaction 00 sure. Medical s Branch IODINE DRUG Active Other-Cmnt Univer s INGREDI 09-30 ity of 00:00: Medical Branch Darvocet Darvocet Active Info Not William masoud Available 03-21 l 00:00: [place] [address] [facility] OPHEN to 05-25 Family substan 00:00: Practic e 00 e CEFAZOLI Allergy Active [facility] N SODIUM to 05-25 Family substan 00:00: Practic e 00 e Codeine Allergy Active [facility] to 05-25 Family substanc 00:00: Practic e 00 e FENTANYL Allergy Active [place] to 05-25 Family substan 00:00: Practic e 00 e PROPOXYP Allergy Active [facility] HENE HCL to 05-25 Family substan 00:00: Practic e 00 e PROPOXYP Allergy Active [facility] HENE to 05-25 Family NAPSYLAT substanc 00:00: Practi c E e 00 e TRAMADOL Allergy Active [facility] to 05-25 Family substan 00:00: Practic e 00 e PROPOXYP DRUG Active N/V Univers HENE INGREDI -12 ity of 00:00: [place] [facility] TRAMADOL DRUG Active N/V 2011- Univers INGREDI 12 ity of 00:00: [place] [facility] Cefazoli Drug Active Nausea Nausea Univers n Allergy and/or 12 and ity of Vomiting 00:00: vomiting. [place] She Medical reports Branch she can tolerate taken with zofran (Ondanset martha) Codeine Drug Active Nausea Nausea Univers Allergy and/or 05-25 and ity of Vomiting 00:00: vomiting. [place] Patient Medical states Branch she can tolerate low dose Demerol (Meperidi ne) and tylenol for pain managemen t Fentanyl Drug Active Nausea Nausea Univers Allergy and/or 05-25 and ity of Vomiting 00:00: vomiting. [place] Patient Medical states Branch she can tolerate low dose Demerol (Meperidi ne) and tylenol for pain managemen t Propoxyp Drug Active Nausea Nausea Univers hene Allergy and/or 05-25 and ity of Vomiting 00:00: vomiting. [place] Patient Medical states Branch she can tolerate low dose Demerol (Meperidi ne) and tylenol for pain managemen t Tramadol Drug Active Nausea 0 Nausea Univers Allergy and/or 05-25 and ity of Vomiting 00:00: vomiting. [place] Patient Medical states Branch she can tolerate low dose Demerol (Meperidi ne) and tylenol for pain managemen t CEFAZOLI DRUG Active N/V Univers N INGREDI 12 ity of 00:00: [place] [facility] CODEINE DRUG Active N/V 2011-0 Univers INGREDI -12 ity of 00:00: [place] [facility] FENTANYL DRUG Active N/V 2011- Univers INGREDI -12 ity of 00:00: [place] [facility] Doxycycl Allergy Active Moderate Abdominal Vi llage ine to pain Family substanc Practic e e Social History Social Habit Start Date Stop Date Quantity Comments Source Gender identity [facility] Sexual orientation Method ist Hospital Exposure to 2023-01-02 2023-01-12 Not sure University of SARS-CoV-2 (event) 00:00:00 23:49:00 [facility] History of Social 2022-06-13 2022-06-[address] function 00:00:00 00:00:00 Hospital Alcohol intake 2019-10-17 2019-10-17 Ex-drinker [facility] 00:00:00 00:00:00 (finding) Hospital Tobacco use and 2019-09-30 2019-09-30 Smokeless [facility] exposure 00:00:00 00:00:00 tobacco non-user Hospital Caffeine: 2016-08-17 2016-08-17 [facility] Haylee nn 00:00:00 00:00:00 Sex Ass[birth year] At [birth year] [facility] 00:00:00 00:00:00 Hospital Smoking Status Start Date Stop Date Source Tobacco smoking consumption [facility] Social History [facility] Medications Ordered Filled Start Stop Current [...] Wed01/13/23 Branch at 0030, ANGELIKA morpHINE (4 2022-0 2022- No 4mg 4 mg, Slow Univers mg/mL) 5-03 05-03 IV Push, ity of injection 4 05:30: 06:02 ONCE, 1 [place] mg 00 :00 dose, On Medical 01/13/23 Branch at 0030, STAT alirocumab Yes 75mg inject 1 Uni vers (PRALUENT 5-03 mL under ity of PEN) 75 05:02: the skin [place] mg/mL PnIj 00 every 2 Medica l (two) Branch weeks. pramipexole 0 Yes .5mg Take 1 Univ ers 0.5 mg 5-03 tablet by ity of tablet 05:02: mouth as [place] 00 needed for Medical Other. Branch Restless leg insulin 0 Yes Sliding Univers lispro 5-03 scale ity of protamine-i 05:02: [place] nsulin 00 Medical lispro Branch (HUMALOG MIX 50-50 KWIKPEN) 100 unit/mL (50-50) injection insulin Yes 54U inject 54 Unive rs degludec 5-03 Units ity of (TRESIBA 05:02: under the [place] FLEXTOUCH 00 skin in Medical U-200) 200 the Branch unit/mL (3 morning. mL) InPn acetaminoph 0 Yes 500mg Take 1 Uni vers en 500 mg 5-03 tablet by ity o f tablet 05:02: mouth. [place] 00 Medical Branch nitroglycer 2022-0 2022- No as needed Univers in 0.4 mg 5-03 05-03 for Chest ity of sublingual 05:02: 00:00 pain. [place] tablet 00 :00 Medical Branch nitroglycer [id number] 1 Univers in 0.4 mg 5-03 tablet ity of sublingual 00:00: under the [place] tablet 00 tongue as Medical needed for Branch Chest pain. lidocaine 5 2022-0 Yes [id number] 1{patch Apply 1 Univers % (700 5-03 } Patch to ity of mg/patch) 00:00: area(s) [place] patch 00 every 12 Medical (twelve) Branch hours as needed for Localized pain (12 hours on & 12 hours off). Nitrofurant 2022- Yes [id number] 100mg Take 1 Univers oin&Nit. 5-03 05-09 capsule by ity of [place] 00:00: 04:59 mouth in [place] 100 mg 00 :00 the Medical capsule morning Branch and 1 capsule in the evening. Do all this for 5 days. amiodarone amiodarone 0 No amiodarone [place] 200 mg 200 mg 4-21 200 mg Family tablet tablet 00:00: tablet Practic 00 e amiodarone amiodarone No amiodarone [place] 200 mg 200 mg 4-21 200 mg Family tablet tablet 00:00: tablet Practic 00 e amiodarone amiodarone 0 No amiodarone [place] 200 mg 200 mg 4-21 200 mg Family tablet tablet 00:00: tablet Practic 00 e amiodarone amiodarone No amiodarone [place] 200 mg 200 mg 4-21 200 mg Family tablet tablet 00:00: tablet Practic 00 e amiodarone Yes 200mg Take 1 Univ ers 200 mg 4-21 tablet by ity of tablet 00:00: mouth in [place] 00 the morning. Branch doxycycline 2021-09 Yes 100mg Q.5D Take 1 Met hodi (VIBRAMYCIN 0-[address] ) 100 MG 19:43: (100 mg Hospit a capsule 02 total) by l mouth 2 (two) times a day. doxycycline 2021-09 Yes 100mg Q.5D Take 1 [...] subcutaneou days. s injection ergocalcife 2021-09 Yes [id number] Q.5W Take Meth gabino rol 0-01 50,000 st (VITAMIN 19:46: Units by Hospi ta D2) 50,000 16 mouth 2 l unit (two) capsule times a week. Every Wednesday and Wednesday insulin 2021-09 Yes 60U [id number] Inject 60 Methodi LISPRO 0-[id number] PROTAMIN-LI 19:46: 3D under the [...] (3 mL) with subcutaneou lunch. s pen donepezil 2021-09 Yes 10mg QD Take 10 [...] subcutaneou days. s injection ergocalcife 2021-09 Yes [id number] Q.5W Take Meth gabino rol 0-01 50,000 st (VITAMIN 19:46: Units by Hospi ta D2) 50,000 16 mouth 2 l unit (two) capsule times a week. Every Wednesday and Wednesday insulin 2021-09 Yes 60U [id number] Inject 60 Methodi LISPRO 0-[id number] PROTAMIN-LI 19:46: 3D under the [...] mL) with subcutaneou lunch. s pen Praluent 2017-0 Yes [place] INJECT Memoria Pen 7-19 [place] 75MG l 02:04: SUBCUTANEO [place] 51 USLY EVERY 2 WEEKS cranberry 2017-0 Yes [place] not Memoria 7-19 [place] defined l 02:04: [place] 51 Vitamin 2018-0 Yes [place] 1 tab(s) Memori a B-100 7-19 [place] l 02:04: [place] 51 Tylenol 2018-0 Yes [place] 1 tab(s) Memori a Caplet -19 [place] l Extra 02:04: [place] Strength 51 [...] 7-19 [place] TABLET l 02:04: UNDER THE [place] [id number] TONGUE EVERY 5 MINUTES DIRECTED clobetasol 2018-0 Yes Aydin 1 yoon Memori a topical 7-19 [place] l 02:04: Humalog Mix 2018-0 Yes [place] 60 units Me moria 50/50 7-19 [place] l 02:04: pramipexole 2018-0 Yes [place] 1 tab(s) Me moria 7-19 [place] l 02:04: [place] 51 Metoprolol 2018-0 Yes Aydin take 1 Memor ia Succinate 7-19 [place] tablet l ER 02:04: twice a [place] 51 day Vitamin D 2018-0 Yes Aydin TAKE 1 Memori a 7-19 [place] CAPSULE BY l 02:04: MOUTH [place] 51 TWICE A WEEK Praluent 2018-0 Yes [place] INJECT Memoria Pen 7-19 [place] 75MG l 02:04: SUBCUTANEO [place] 51 USLY EVERY 2 WEEKS Metoprolol 2018-0 Yes [place] take 1 Memor ia Succinate 7-19 [place] tablet l ER 02:04: twice a [place] 51 day propafenone 2018-0 Yes [place] 1 tab(s) Me moria 7-19 [place] l 02:04: cranberry 0 Yes [place] not Memoria 7-19 [place] defined l 02:04: aspirin 2018-0 Yes [place] 1 tab(s) Memori a 7-19 [place] l 02:04: Vitamin 2018-0 Yes [place] 1 tab(s) Memori a B-100 7-19 [place] l 02:04: Humalog Mix 2018-0 Yes A[place] 60 units Me moria 50/50 7-19 [place] l 02:04: [place] 51 Vitamin D 2018-0 Yes [place] TAKE 1 Memori a 7-19 [place] CAPSULE BY l 02:04: MOUTH [place] 51 TWICE A WEEK clobetasol 2018-0 Yes [place]yd[place] 1 yoon Memori a topical 7-19 [place] l 02:04: [place] 51 Nitrostat 2018-0 Yes A[place]in DISSOLVE 1 Me moria 7-19 [place] TABLET l 02:04: UNDER THE [place] 51 TONGUE EVERY 5 MINUTES DIRECTED Tresiba 2018-0 Yes Aydin 55 units Memori a 7-19 [place] l 02:04: [place] 51 donepezil 2018-0 Yes [place] 1 tab(s) William masoud 7-19 [place] l 02:04: [place] 51 pramipexole 2018-0 Yes [place] 1 tab(s) Me moria 7-19 [place] l 02:04: [place] 51 Tylenol 2018-0 Yes Aydin 1 tab(s) [...] [place] tablet l ER 02:04: twice a [place] 51 day propafenone 2018-0 Yes Aydin 1 [...] Me moria 50/50 7-19 [place] l 02:04: [place] 51 Vitamin D 2018-0 Yes [place] TAKE 1 Memori a 7-19 [place] CAPSULE BY l 02:04: MOUTH [place] 51 TWICE A WEEK clobetasol 2018-0 Yes [...] Caplet 7-19 [place] l Extra 02:04: Bruce [facility] 51 Synthroid 2018-0 Yes Aydin 1 tab(s) William masoud 7-19 [place] l 02:04: [place] 51 Mag-Ox 400 2018-0 Yes Ayd[place] 3 tab(s) Mem oria 7-19 [place] l 02:04: [place] 51 Praluent 2017-0 Yes [place] INJECT Memoria Pen 7-19 [place] 75MG l 02:04: SUBCUTANEO [place] 51 USLY EVERY 2 WEEKS Metoprolol 2018-0 Yes Aydin take 1 Memor ia Succinate 7-19 [place] tablet l ER 02:04: twice a [place] 51 day propafenone 2017-0 Yes Ayd[place] 1 tab(s) Me moria 7-19 [place] l 02:04: [place] 51 cranberry 2017-0 Yes [place]yd[place] not Memoria 7-19 [place] defined [...] tab(s) Memori a 7-19 [place] l 02:04: [place] 51 Vitamin 2018-0 Yes Aydin 1 tab(s) Memori a B-100 7-19 [place] l 02:04: [place] 51 Humalog Mix 2018-0 Yes Ayd[place] 60 units Me moria 50/50 7-19 [place] l 02:04: [place] 51 Vitamin D 2018-0 Yes A[place] TAKE 1 Memori a 7-19 [place] CAPSULE BY l 02:04: MOUTH [place] 51 TWICE A WEEK clobetasol 2018-0 Yes [place] 1 yoon Memori a topical 7-19 [place] l 02:04: [place] 51 Nitrostat 2018-0 Yes Aydin DISSOLVE 1 Me moria 7-19 [place] TABLET l 02:04: UNDER THE [place] 51 TONGUE EVERY 5 MINUTES DIRECTED Tresiba [...] Praluent 2018-0 Yes [place] INJECT Memoria Pen - [place] 75MG l 02:04: SUBCUTANEO [place] 51 USLY EVERY 2 WEEKS Metoprolol 2018-0 Yes Aydin take 1 Memor ia Succinate 03-31 [place] tablet l ER 02:04: twice a [place] 51 day propafenone 2018-0 Yes Ayd[place] 1 tab(s) Me moria 7- [place] l 02:04: [place] 51 cranberry 2018-0 Yes Aydin not Memoria - [place] defined l 02:04: [place] 51 Vitamin 2018-0 Yes Ayd[place] 1 tab(s) Memori a B-100 7- [place] l 02:04: [place] 51 Tylenol 2018-0 [...] a 7-19 [place] l 02:04: [place] 51 Nitrostat [...] moria 7-19 [place] l 02:04: [place] 51 Vitamin D 2018-0 Yes [place] TAKE 1 Memori a 7-19 [place] CAPSULE BY l 02:04: MOUTH [place] 51 TWICE A WEEK Praluent 2018-0 Yes [place] INJECT Memoria Pen 7-19 [place] 75MG l 02:04: SUBCUTANEO [place] 51 USLY EVERY 2 WEEKS Metoprolol 2018-0 Yes Aydin take 1 Memor ia Succinate 7-19 [place] tablet l ER 02:04: twice a [place] 51 day propafenone 2018-0 Yes Aydin 1 tab(s) Me moria 7-19 [place] l 02:04: [place] 51 cranberry 2017-0 Yes Aydin not Memoria 7-19 [place] defined l 02:04: [place] 51 Vitamin 2018-0 Yes Ayd[place] 1 tab(s) Memori a B-100 7-19 [place] l 02:04: [place] 51 Tylenol 2017-0 Yes Ayd[place] 1 tab(s) Memori a Caplet 7-19 [place] l Extra 02:04: [place] Paul[place] 51 Mag-Ox 400 2018-0 Yes Aydin 3 [...] a 7-19 [place] l 02:04: [place] 51 Nitrostat 2018-0 Yes Ayd[place] DISSOLVE 1 Me moria 7-19 [place] TABLET l 02:04: UNDER THE [place] 51 TONGUE EVERY 5 MINUTES DIRECTED clobetasol 2018-0 Yes [place]yd[place] 1 yoon Memori a topical 7-19 [place] l 02:04: [place] 51 Humalog Mix 2017-0 Yes Ayd[place] 60 units Me moria 50/50 7-19 [place] l 02:04: [place] 51 pramipexole 2018-0 Yes [place] 1 tab(s) Me moria 7-19 [place] l 02:04: [place] 51 Vitamin D 2017-0 Yes Aydin TAKE 1 Memori a 7-19 [place] CAPSULE BY l 02:04: MOUTH [place] 51 TWICE A WEEK Bactrim DS 2017-0 Yes Ayd[place] 1 tab(s) Mem oria 7-09 [...] tab(s) Me moria 2-12 [place] l 00:00: [place] 00 clopidogrel Yes Aydin 1 tab(s) Me moria 2-12 [place] l 00:00: clopidogrel Yes [place] 1 tab(s) Me moria 2-12 [place] l 00:00: Toujeo 2016-09 Yes [place]ydin inj Memoria 1-18 [place] l 03:01: furosemide 2016-09 Yes [place] 1 tab(s) Mem oria 1-18 [place] l 03:01: Klor-Con 2016-09 Yes Ayd[place] 1 tab(s) Memor ia 1-18 [place] l 03:01: Mag-Ox 400 2016-09 Yes Ayd[place] 3 tab(s) Mem oria 1-18 [place] l 03:01: propafenone 2016-09 Yes Ayd[place] 1 tab(s) Me moria 1-18 [place] l 03:01: ujeo 2016-09 Yes [place]ydin inj Memoria 1-18 [place] [...] Yes [place]yd[place] 1 tab(s) Memor ia 1-18 [place] l 03:01: Mag-Ox 400 2016-09 Yes Aydin 3 tab(s) Mem oria 1-18 [place] l 03:01: propafenone 2016-09 Yes Aydin 1 tab(s) Me moria 1-18 [place] l 03:01: [place] 46 Toujeo 2016-09 Yes [place]ydin inj Memoria 1-18 [place] l 03:01: [place] 46 furosemide 2016-09 Yes Ayd[place] 1 tab(s) Mem oria 1-18 [place] l 03:01: [place] 46 Klor-Con 2016-09 Yes Aydin 1 tab(s) Memor ia 1-18 [place] l 03:01: [place] 46 Mag-Ox 400 2016-09 Yes Aydin 3 tab(s) Mem oria 1-18 [place] l 03:01: [place] 46 propafenone 2016-09 Yes Aydin 1 tab(s) Me moria 1-18 [place] l 03:01: [place] 46 Toujeo 2016-09 Yes Aydin inj Memoria 1-18 [place] l 03:01: [place] 46 furosemide 2016-09 Yes Aydin 1 tab(s) Mem oria 1-18 [place] l 03:01: [place] 46 Klor-Con 2016-09 Yes Aydin 1 tab(s) Memor ia 1-18 [place] l 03:01: [place] 46 Mag-Ox 400 2016-09 Yes Aydin 3 tab(s) Mem oria 1-18 [place] l 03:01: [place] 46 propafenone 2016-09 Yes Aydin 1 tab(s) Me moria 1-18 [place] l 03:01: [place] 46 furosemide 2016-09 Yes Aydin 1 tab(s) Mem oria 1-18 [place] l 03:01: [place] 46 Klor-Con 2016-09 Yes Aydin 1 tab(s) Memor ia 1-18 [place] l 03:01: [place] 46 Mag-Ox 400 2016-09 Yes Aydin 3 tab(s) Mem oria 1-18 [place] l 03:01: [place] 46 propafenone 2016-09 Yes Aydin 1 tab(s) Me moria 1-18 [place] l 03:01: [place] 46 Toujeo 2016-09 Yes [place]ydin inj Memoria 1-18 [place] l 03:01: [place] 46 furosemide 2016-09 Yes Aydin 1 tab(s) Mem oria 1-18 [place] l 03:01: [place] 46 Klor-Con 2016-09 Yes Aydin 1 tab(s) Memor ia 1-18 [place] l 03:01: 46 Mag-Ox 400 2016-09 Yes Aydin 3 tab(s) [facility] 1-18 [place] 03:01: propafenone 2016-09 Yes Aydin 1 tab(s) Me moria 1-18 [place] 03:01: 46 Toujeo 2016-09 Yes [facility]ydin inj [facility] 1-18 [place] [facility] 03:01: pramipexole Yes Aydin 1 tab(s) Me moria [...] [facility] 6-30 [place] [facility] 02:02: 30 Mag-Ox 400 Yes Aydin 3 tab(s) Mem [...] a Caplet 6-30 [place] [facility] Extra 02:02: [place] 30 Metoprolol Yes Aydin take 1 [facility] ia Succinate 6-30 [place] tablet l ER 02:02: twice a 30 day Vitamin 0 Yes Aydin 1 tab(s) Memori a B-100 [...] tab(s) [facility] 6-30 [place] [facility] 02:02: 30 clobetasol Yes Aydin 1 yoon Memori a [...] William masoud 6-30 [place] [facility] 02:02: 30 pramipexole Yes Aydin 1 tab(s) Me moria [...] [facility] 6-30 [place] [facility] 02:02: 30 Mag-Ox 400 Yes Aydin 3 tab(s) [facility] 6-30 [place] [facility] 02:02: Humalog Mix Yes Aydin 60 units Me moria 50/50 6-30 [place] [facility] 02:02: 30 aspirin Yes Aydin 1 tab(s) [facility] 6-30 [place] [facility] 02:02: 30 clobetasol Yes Aydin 1 yoon [facility] topical 6-30 [place] [facility] 02:02: 30 Praluent Yes [place]in INJECT [facility] Pen 6-30 [place] 75MG l 02:02: SUBCUTANEO 30 USLY EVERY 2 WEEKS cranberry Yes Aydin not [facility] 6-30 [place] defined l 02:02: donepezil 2017- Yes Aydin 1 tab(s) William masoud 6-30 [place] [facility] 02:02: Tylenol Yes Aydin 1 tab(s) Memori a Caplet 6-30 [place] Extra 02:02: 30 Metoprolol Yes Aydin take 1 [facility] Succinate 6-30 [place] tablet l ER 02:02: twice a 30 day Vitamin 20170 Yes Aydin 1 tab(s) Memori a B-100 [...] Caplet 6-30 [place] Extra 02:02: Bruce Strength 30 Metoprolol 2017 Yes Aydin take 1 [facility] Succinate 6-30 [place] tablet l ER 02:02: twice a 30 day Vitamin Yes Aydin 1 tab(s) [facility] B-100 6-30 [place] [facility] 02:02: Nitrostat Yes Aydin 1 tab(s) William masoud 6-30 [place] [facility] 02:02: Praluent Yes [place]in INJECT [facility] Pen 6-30 [place] 75MG l 02:02: SUBCUTANEO 30 USLY EVERY 2 WEEKS cranberry Yes Aydin not [facility] 6-30 [place] defined l 02:02: donepezil Yes Aydin 1 tab(s) William masoud 6-30 [place] [facility] 02:02: Tylenol Yes Aydin 1 tab(s) Memori a [place] 6-30 [place] [facility] Extra 02:02: Bruce Strength 30 Metoprolol Yes Aydin take 1 Memor [...] [facility] ia 6-30 [place] [facility] 02:02: propafenone 2017-0 Yes Aydin 1 tab(s) Me moria 6-30 [place] [facility] 02:02: Synthroid 2017-0 Yes Aydin 1 tab(s) William masoud 6-30 [place] [facility] 02:02: Vitamin D 2017 Yes A[facility]in TAKE 1 [facility] a 6-30 [place] CAPSULE BY l 02:02: MOUTH TWICE A WEEK furosemide 2017-0 Yes Aydin 1 tab(s) [facility] 6-30 [place] [facility] 02:02: Mag-Ox 400 2017- Yes Aydin 3 tab(s) [facility] 6-30 [place] [facility] 02:02: Humalog Mix Yes Aydin 60 units Me moria 50/50 6-30 [place] [facility] 02:02: aspirin 0 Yes Aydin 1 tab(s) Mem[facility] a 6-30 [...] [facility] inj [facility] 2-30 [place] [facility] 03:14: NovoLog 2015-09 Yes Aydin 50/50 [facility] 2-30 [place] [facility] 03:14: 2015-09 Yes [place]yd[place] 0 [facility] 2-30 [place] [facility] 03:14: o 2015-09 Yes [facility] inj [facility] 2-30 [place] [facility] 03:14: NovoLog 2015-09 Yes A[place] 50/50 [facility] 2-30 [place] [facility] 03:14: alog 2015-09 Yes [facility] 0 [facility] 2-30 [place] [facility] 03:14: [place] jeo 2015-09 Yes [facility]in inj [facility] 2-30 [place] [facility] 03:14: Bruce 26 NovoLog 2015-09 Yes Aydin 50/50 [facility] 2-30 [place] [facility] 03:14: Humalog 2015-09 Yes [place]in 0 [facility] 2-30 [place] [facility] 03:14: jeo 2015-09 Yes [facility] inj [facility] 2-30 [place] [facility] 03:14: NovoLog 2015-09 Yes A[place]in 50/50 [facility] 2-30 [place] [facility] 03:14: Bruce 26 Humalog 2015-09 Yes Aydin 0 [facility] 2-30 [place] [facility] 03:14: o 2015-09 Yes [facility] inj [facility] 2-30 [place] [facility] 03:14: NovoLog 2015-09 Yes Aydin 50/50 [facility] 2-30 [place] [facility] 03:14: Bruce Humalog 2015-09 Yes Aydin 0 [facility] 2-30 [place] [facility] 03:14: o 2015-09 Yes [facility] inj [facility] 2-30 [place] [facility] 03:14: [place] 26 Klor-Con 2015-09 Yes Aydin 1 tab(s) [facility] M20 1-08 [place] [facility] 03:23: Bruce 49 [place] 2015-09 Yes Aydin TAKE 1 [facility] 1-08 [place] TABLET l 03:23: TWICE A 49 DAY Klor-Con 2015-09 Yes Aydin 1 tab(s) [facility] M20 1-08 [place] [facility] 03:23: Bruce 49 [place] 2015-09 Yes Aydin TAKE 1 [facility] 1-08 [place] TABLET l 03:23: TWICE A 49 DAY Klor-Con 2015-09 Yes Aydin 1 tab(s) [facility] M20 1-08 [place] [facility] 03:23: Bruce exa 2015-09 Yes Aydin TAKE 1 [facility] 1-08 [place] TABLET l 03:23: TWICE A 49 DAY Klor-Con 2015-09 Yes Aydin 1 tab(s) [facility] M20 1-08 [place] [facility] 03:23: Bruce 49 exa 2015-09 Yes Aydin TAKE 1 [facility] 1-08 [place] TABLET l 03:23: TWICE A 49 DAY Klor-Con 2015-09 Yes Aydin 1 tab(s) [facility] ia M20 1-08 [place] [facility] 03:23: [place] 2015-09 Yes Aydin TAKE 1 [facility] 1-08 [place] TABLET l 03:23: TWICE A 49 DAY Klor-Con 2015-09 Yes Aydin 1 tab(s) [facility] M20 1-08 [place] [facility] 03:23: [place] 2015-09 Yes Aydin TAKE 1 [facility] 1-08 [place] TABLET l 03:23: TWICE A 49 DAY Klor-Con 2015-09 Yes Aydin 1 tab(s) [facility] ia M20 1-08 [place] [facility] 03:23: [place] 2015-09 Yes Aydin TAKE 1 Memoria [...] [facility] 6-22 [place] [facility] 02:31: Tylenol 0 Yes Aydin 2 tab(s) [facility] 6-22 [place] [facility] 02:31: Tylenol 2015-0 Yes Aydin 2 tab(s) [facility] 6-22 [place] [facility] 02:31: Bruce 43 Tylenol 2016-0 Yes Aydin 2 tab(s) [facility] 03-04 [place] [facility] 02:31: Bruce 43 Tylenol 2016-0 Yes Aydin 2 tab(s) [facility] - [place] [facility] 02:31: Bruce 43 Tylenol 2016-0 Yes Aydin 2 tab(s) [facility] 03-04 [place] [facility] 02:31: Bruce 43 Detrol [place] 2016-0 Yes Aydin 1 cap(s) William masoud 6-22 [place] [facility] 02:27: Bruce 44 Detrol [place] 2016-0 Yes Aydin 1 cap(s) William masoud 6-22 [place] [facility] 02:27: Bruce 44 Detrol [place] 2016-0 Yes Aydin 1 cap(s) William masoud - [place] [facility] 02:27: Bruce 44 Detrol [place] 2016-0 Yes Aydin 1 cap(s) William masoud -22 [place] [facility] 02:27: Bruce 44 Detrol [place] 2015-0 Yes Aydin 1 cap(s) William masoud - [place] [facility] 02:27: Bruce 44 Detrol [place] 2016-0 Yes Aydin 1 cap(s) William masoud -22 [place] [facility] 02:27: Bruce 44 Detrol [place] 2015-0 Yes Aydin 1 cap(s) William masoud - [place] [facility] 02:27: Bruce 44 Crestor 2016-0 Yes Aydin 1 tab(s) [facility] 02-11 [place] [facility] 00:00: Crestor 2016-0 Yes Aydin 1 tab(s) [facility] 02-11 [place] [facility] 00:00: Crestor 2016-0 Yes Aydin 1 tab(s) [facility] 02-11 [place] [facility] 00:00: Crestor 2016-0 Yes Ayd[place] 1 tab(s) [facility] 02-11 [place] [facility] 00:00: Crestor 2016-0 Yes Aydin 1 tab(s) [facility] 02-11 [place] [facility] 00:00: Crestor 2016-0 Yes Aydin 1 tab(s) [facility] a 02-11 [place] [facility] 00:00: Crestor 2015-0 Yes Aydin 1 tab(s) [facility] a 02-11 [place] [facility] 00:00: Vitamin D 2016-0 Yes [...] tab(s) William masoud 3-29 [place] [facility] 00:00: [place] 2016-0 No Aydin 1 tab(s) [facility] 2-03 [place] [facility] 00:00: [place] 2016-0 No Aydin 1 tab(s) [facility] 2-03 [place] [facility] 00:00: [place] 2016-0 No Aydin 1 tab(s) [facility] 2-03 [place] [facility] 00:00: [place] 2016-0 No Aydin 1 tab(s) [facility] 2-03 [place] [facility] 00:00: Bruce 00 [place] 2016-0 No Aydin 1 tab(s) [facility] 2-03 [place] [facility] 00:00: Bruce 00 [place] 2016-0 No Aydin 1 tab(s) [facility] 2-03 [place] [facility] 00:00: [place] 00 [place] 2016-0 No Aydin 1 tab(s) [facility] 2-03 [place] [facility] 00:00: Bruce 00 Furosemide 2015-0 No 20 mg, Memor ia 6- Route: l 00:46: IVP, Drug [place] form: INJ, ONCE, kg, Priority: STAT, Start date: 02/18/15 19:46:00, Stop date: 02/18/15 19:46:00 Furosemide 2015-0 No 20 mg, Memor ia 6 Route: l 00:46: IVP, Drug Bruce 00 form: INJ, ONCE, kg, Priority: STAT, Start date: 02/18/15 19:46:00, Stop date: 02/18/15 19:46:00 Furosemide 2015-0 No 20 mg, Memor ia 6 Route: l 00:46: IVP, Drug Bruce 00 form: INJ, ONCE, kg, Priority: STAT, Start date: 02/18/15 19:46:00, Stop date: 02/18/15 19:46:00 Furosemide 2015-0 No 20 mg, Memor ia 6- Route: l 00:46: IVP, Drug [place] 00 form: INJ, ONCE, kg, Priority: STAT, Start date: 02/18/15 19:46:00, Stop date: 02/18/15 19:46:00 Furosemide 2015-0 No 20 mg, Memor ia 6- Route: l 00:46: IVP, Drug [place] 00 form: INJ, ONCE, kg, Priority: STAT, Start date: 02/18/15 19:46:00, Stop date: 02/18/15 19:46:00 Furosemide 2015-0 No 20 mg, Memor ia 6- Route: l 00:46: IVP, Drug [place] 00 form: INJ, ONCE, kg, Priority: STAT, Start date: 02/18/15 19:46:00, Stop date: 02/18/15 19:46:00 Furosemide 2014- No 20 mg, Memor ia 02-19 Route: l 00:46: IVP, Drug form: INJ, ONCE, kg, Priority: STAT, Start date: 02/18/15 19:46:00, Stop date: 02/18/15 19:46:00 Lantus Yes Aydin 25 units [facility] 9-15 [place] [facility] 03:23: Bruce 25 Xolegel Yes Aydin 1 yoon [facility] 9-15 [place] [facility] 03:23: Bruce 25 Lantus Yes [place] 25 units [facility] 9-15 [place] [facility] 03:23: [place] 25 Xolegel Yes Aydin 1 yoon [facility] 9-15 [place] [facility] 03:23: Bruce 25 Lantus Yes Ayd[facility] 25 units [facility] 9-15 [place] [facility] 03:23: [place] 25 Xolegel Yes Aydin 1 yoon [facility] 9-15 [place] [facility] 03:23: Bruce 25 Lantus Yes A[facility] 25 units [facility] 9-15 [place] [facility] 03:23: Bruce 25 Xolegel Yes Aydin 1 yoon [facility] 9-15 [place] [facility] 03:23: Bruce 25 Lantus Yes A[place] 25 units [facility] 9-15 [place] [facility] 03:23: [place] 25 Xolegel Yes Aydin 1 yoon [facility] 9-15 [place] [facility] 03:23: [place] 25 Lantus Yes Aydin 25 units [facility] 9-15 [place] [facility] 03:23: [place] 25 Xolegel Yes Aydin 1 yoon [facility] 9-15 [place] [facility] 03:23: [place] 25 Lantus Yes Aydin 25 units [facility] 9-15 [place] [facility] 03:23: [place] 25 Xolegel Yes Aydin 1 yoon [facility] 9-15 [place] [facility] 03:23: Bruce 25 Vitamin D Yes Aydin 1 tab(s) William masoud 8-18 [place] [facility] 00:00: Bruce 00 Vitamin D Yes Aydin 1 tab(s) William masoud 8-18 [place] [facility] 00:00: Vitamin D 2013-0 Yes Aydin 1 tab(s) William masoud 8-18 [place] [facility] 00:00: Vitamin D 2013-0 Yes Aydin 1 tab(s) William masoud 8-18 [place] [facility] 00:00: Vitamin D 2013-0 Yes Aydin 1 tab(s) William masoud 8-18 [place] [facility] 00:00: Vitamin D 2013-0 Yes Aydin 1 tab(s) William masoud 8-18 [place] [facility] 00:00: Vitamin D 2013-0 Yes Aydin 1 tab(s) William masuod 8-18 [place] [facility] 00:00: Aricept 0 Yes Aydin 1 tab(s) [facility] 4-12 [place] [facility] 03:53: Mirapex Yes Aydin 1 tab(s) [facility] 4-12 [place] [facility] 03:53: Aricept Yes Aydin 1 tab(s) Memori a [...] tab(s) [facility] 4-12 [place] [facility] 03:53: [place] 12 Mirapex 2013-0 Yes Aydin 1 tab(s) [facility] 4-12 [place] [facility] 03:53: [place] 12 Vitamin D 2013-0 Yes Aydin 1 tab(s) William masoud 3-31 [place] [facility] 00:00: Bruce 00 Vitamin D 2013-0 Yes Aydin 1 tab(s) William masoud 3-31 [place] [facility] 00:00: Vitamin D 2013-0 Yes Aydin 1 tab(s) William masoud 3-31 [place] [facility] 00:00: [place] 00 Vitamin D 2013-0 Yes Aydin 1 tab(s) William masoud 3-31 [place] [facility] 00:00: Vitamin D 2013-0 Yes Aydin 1 tab(s) William masoud 3-31 [place] [facility] 00:00: Vitamin D 2013-0 Yes Aydin 1 tab(s) William masoud 3-31 [place] [facility] 00:00: Vitamin D 2013-0 Yes Aydin 1 tab(s) William masoud 3-31 [place] [facility] 00:00: Bruce 00 Imdur 2013-0 Yes Aydin 1 tab(s) [facility] 3-26 [place] [facility] 00:00: [place] 00 Imdur 2013-0 Yes Aydin 1 tab(s) [facility] 3-26 [place] [facility] 00:00: Bruce 00 Imdur 2013-0 Yes Aydin 1 tab(s) [facility] 3-26 [place] [facility] 00:00: Bruce 00 Imdur 2013-0 Yes Aydin 1 tab(s) [facility] 3-26 [place] [facility] 00:00: Bruce 00 Imdur 2013-0 Yes Aydin 1 tab(s) [facility] 3-26 [place] [facility] 00:00: [place] 00 Imdur 2013-0 Yes Aydin 1 tab(s) [facility] 3-26 [place] [facility] 00:00: [place] 00 Imdur 2013-0 Yes Aydin 1 tab(s) [facility] 3-26 [place] [facility] 00:00: [place] 00 Crestor 2012- Yes Aydin 1 tab(s) [facility] 1-09 [place] [facility] 04:51: Crestor 2012-09 Yes Aydin 1 tab(s) [facility] 1-09 [place] [facility] 04:51: [facility] 2012-09 Yes A[facility]in 1 tab(s) [facility] 1-09 [place] [facility] 04:51: 44 [facility] 2012-09 Yes [facility]ydin 1 tab(s) [facility] 1-09 [place] [facility] 04:51: 44 [facility] 2012-09 Yes [facility]ydin 1 tab(s) [facility] 1-09 [place] [facility] 04:51: [facility] 2012-09 Yes [facility] 1 tab(s) [facility] 1-09 [place] [facility] 04:51: [facility] 2012-09 Yes [facility]in 1 tab(s) [facility] 1-09 [place] [facility] 04:[facility]: [facility] Yes [facility]in 1 tab(s) Memori a [...] tab(s) [facility] 0-01 [place] [facility] 00:00: Bruce 00 Antara 2012-1 No Aydin 1 cap(s) [facility] 0-01 [place] [facility] 00:00: Lipitor 2012-1 Yes Aydin 1 tab(s) [facility] 0-01 [place] [facility] 00:00: Bruce 00 Lasix 2012-0 Yes Aydin 1 tab(s) [facility] 4-11 [place] [facility] 00:00: Lasix 2012-0 Yes Aydin 1 tab(s) [facility] 4-11 [place] [facility] 00:00: Lasix 0 Yes Aydin 1 tab(s) [facility] 4-11 [place] [facility] 00:00: Lasix 2012-0 Yes Aydin 1 tab(s) [facility] 4-11 [place] [facility] 00:00: Lasix 2012-0 Yes Aydin 1 tab(s) [facility] 4-11 [place] [facility] 00:00: Lasix 2012-0 Yes Aydin 1 tab(s) [facility] 4-11 [place] [facility] 00:00: Lasix 2012-0 Yes Aydin 1 tab(s) [facility] 4-11 [place] [facility] 00:00: Plavix 2012-0 Yes Aydin 1 tab(s) [facility] 1-25 [place] [facility] 00:00: Plavix 2012-0 Yes Aydin 1 tab(s) [facility] 1-25 [place] [facility] 00:00: Plavix 2012-0 Yes Aydin 1 tab(s) [facility] 1-25 [place] [facility] 00:00: Plavix 2012-0 Yes Aydin 1 tab(s) [facility] 1-25 [place] [facility] 00:00: Plavix 2012-0 Yes Aydin 1 tab(s) [facility] 1-25 [place] [facility] 00:00: Plavix 2012-0 Yes Aydin 1 tab(s) [facility] 1-25 [place] [facility] 00:00: Plavix 2012-0 Yes Aydin 1 tab(s) [facility] 1-25 [place] [facility] 00:00: Mag-Ox 400 2012-0 Yes Aydin 2 tab(s) [facility] 1-07 [place] [facility] 00:00: Mag-Ox 400 Yes Aydin 2 tab(s) [facility] 1-07 [place] [facility] 00:00: Mag-Ox 400 Yes Aydin 2 tab(s) [facility] 1-07 [place] [facility] 00:00: Mag-Ox 400 Yes Aydin 2 tab(s) [facility] -07 [place] [facility] 00:00: Mag-Ox 400 Yes Aydin 2 tab(s) [facility] -07 [place] [facility] 00:00: Mag-Ox 400 Yes Aydin 2 tab(s) [facility] -07 [place] [facility] 00:00: Mag-Ox 400 Yes Aydin 2 tab(s) [facility] -07 [place] [facility] 00:00: Trilipix 0 Yes Aydin 1 tab(s) [facility] ia 5-11 [place] [facility] 00:00: Trilipix 0 Yes Aydin 1 tab(s) [facility] ia 5-11 [place] [facility] 00:00: Trilipix 2009-0 Yes Aydin 1 tab(s) [facility] 5-11 [place] [facility] 00:00: Trilipix 2009-0 Yes Aydin 1 tab(s) [facility] ia 5-11 [place] [facility] 00:00: Trilipix 2009-0 Yes Aydin 1 tab(s) [facility] ia 5-11 [place] [facility] 00:00: Trilipix 2009-0 Yes Aydin 1 tab(s) [facility] ia 5-11 [place] [facility] 00:00: Trilipix 2009-0 Yes Aydin 1 tab(s) [facility] ia 5-11 [place] [facility] 00:00: amiodarone amiodarone No amiodarone [place] 200 mg 200 mg 200 mg Family tablet Take tablet Take tablet Practic one tablet one tablet Take one e daily daily tablet daily amoxicillin amoxicillin No amoxicilli [place] 500 500 n 500 Family mg-potassiu mg-potassiu mg-potassi Practic m m um e clavulanate clavulanate clavulanat 125 mg 125 mg e 125 mg tablet TAKE tablet TAKE tablet 1 TABLET BY 1 TABLET BY TAKE 1 MOUTH THREE MOUTH THREE TABLET BY TIMES DAILY TIMES DAILY MOUTH THREE TIMES DAILY Analpram-HC Analpram-HC No Analpram-H [place] 2.5 %-1 [...] route. B-Complex 1 B-Complex 1 No B-Complex [facility] daily daily 1 daily Family Practic e BD BD No BD [facility] Ultra-Fine Ultra-Fine Ultra-Fine [facility] Short Pen Short Pen Short Pen Practic Needle 31 Needle 31 Needle 31 e gauge x gauge x gauge x 5/16" USE 01/26" USE 01/26" USE UNDER THE UNDER THE UNDER THE SKIN FOUR SKIN FOUR SKIN FOUR TIMES A DAY TIMES A DAY TIMES A DAY ciclopirox ciclopirox No ciclopirox [facility] 0.77 % 0.77 % 0.77 % [facility] topical gel topical gel topical Practic gel e clobetasol clobetasol No clobetasol [facility] 0.05 % 0.05 % 0.05 % [facility] scalp scalp scalp Practic solution solution solution e clobetasol clobetasol No clobetasol [facility] 0.05 % 0.05 % 0.05 % [facility] topical topical topical Practi c ointment ointment ointment e APPLY A APPLY A APPLY A THIN LAYER THIN LAYER THIN LAYER TO HAIR TO HAIR TO HAIR HALF AN HALF AN HALF AN HOUR BEFORE HOUR BEFORE HOUR WASHING WASHING BEFORE HAIR HAIR WASHING HAIR clopidogrel clopidogrel No clopidogre [facility] 75 mg 75 mg l 75 mg Family tablet Take tablet Take tablet Practic 1 tablet 1 tablet Take 1 e every day every day tablet by oral by oral every day route. route. by oral route. cranberry cranberry No 1mg Q1D cranberry [facility] extract 300 extract 300 extract Family mg tablet mg tablet 300 mg Pra ctic Take 1 mg Take 1 mg tablet e every day every day Take 1 mg by oral by oral every day route. route. by oral route. diclofenac diclofenac No diclofenac [facility] 1 % topical 1 % topical 1 [...] gone donepezil donepezil No [address] [facility] 10 mg 10 mg 10 mg Family [...] Family Practic e ergocalcife ergocalcife No ergocalcif [facility] rol rol tono Family (vitamin (vitamin (vitamin Pra ctic D2) 1,250 D2) 1,250 D2) 1,250 e mcg (50,000 mcg (50,000 mcg unit) unit) (50,000 capsule capsule unit) Take 1 Take 1 capsule capsule capsule Take 1 every week every week capsule by oral by oral every week route. route. by oral route. fluconazole fluconazole No fluconazol [facility] 150 mg 150 mg e 150 mg Family tablet tablet tablet Practic e fluocinonid fluocinonid No fluocinoni [facility] e 0.05 % e 0.05 % de 0.05 % Fa astrid topical topical topical Practi c solution solution solution e folic acid folic acid No folic acid [facility] 1 mg tablet 1 mg tablet 1 mg F amily tablet Practic e FreeStyle FreeStyle No FreeStyle [facility] [place] 14 [place] 14 [place] 14 Fam aissatou Day Sensor Day Sensor Day Sensor Practic kit CHANGE kit CHANGE kit CHANGE e SENSORS Q SENSORS Q SENSORS Q 14 DAYS 14 DAYS 14 DAYS furosemide furosemide No [address] [facility] 40 mg 40 mg 40 mg Family tablet Take tablet Take tablet Practic 1 tablet 1 tablet Take 1 e every day every day tablet by oral by oral every day route as route as by oral needed. needed. route as needed. gabapentin gabapentin No 1capsul TID gabapentin [place] 300 mg 300 mg e(s) 300 mg Family capsule capsule capsule Practi c Take 1 Take 1 Take 1 e capsule 3 capsule 3 capsule 3 times a day times a day times a by oral by oral day by route. route. oral route. Humalog Mix Humalog Mix No Humalog [place] 50-50 50-50 Mix 50-50 Family KwikPen KwikPen KwikPen Practi c U-100 U-100 U-100 e Insulin 100 Insulin 100 Insulin unit/mL unit/mL 100 subcutaneou subcutaneou unit/mL s pen s pen subcutaneo Inject 60 Inject 60 us pen units TID units TID Inject 60 units TID ibuprofen ibuprofen No ibuprofen [facility] 800 mg 800 mg 800 mg Family tablet tablet tablet Practic e ipratropium ipratropium No ipratropiu [facility] bromide 42 bromide 42 m bromide Family mcg (0.06 mcg (0.06 42 mcg Pra ctic %) nasal %) nasal (0.06 %) e spray spray nasal spray ketoconazol ketoconazol No ketoconazo [place] e 2 % e 2 % le 2 % Family topical topical topical Practi c cream cream cream e meperidine meperidine No meperidine [facility] 50 mg 50 mg 50 mg Family tablet PRN tablet PRN tablet PRN Practic e metoprolol metoprolol No metoprolol [facility] succinate succinate succinate Family ER 25 mg [...] topical Prac tic ointment e nitroglycer nitroglycer nitroglyce [facility] in 0.4 mg in 0.4 mg rin 0.4 mg [facility] sublingual sublingual sublingual Practic tablet tablet tablet [...] powder powder powder nystatin-tr nystatin-tr No nystatin-t [facility] iamcinolone iamcinolone riamcinolo Family 100,000 100,000 ne [...] DAILY TIMES DAILY potassium potassium No potassium [place] take 1 take 1 take 1 Family [...] route. us route. pramipexole pramipexole No pramipexol [facility] 0.5 mg 0.5 mg e 0.5 mg Family tablet Take tablet Take tablet Practic 1 tablet 1 tablet Take 1 e twice a day twice a day tablet by oral by oral twice a route. route. day by oral route. propafenone propafenone No propafenon [facility] 150 mg 150 mg e 150 mg Family tablet Take tablet Take tablet Practic 1 tablet 1 tablet Take 1 e every 8 every 8 tablet hours by hours by every 8 oral route. oral route. hours by oral route. salicylic salicylic No salicylic [facility] acid as acid as acid as Family needed needed needed Practic e salicylic salicylic No salicylic [facility] acid 6 % acid 6 % acid [...] PAT DRY NEEDED sulfamethox sulfamethox No sulfametho [facility] azole 800 azole 800 xazole 800 Family mg-trimetho mg-trimetho mg-trimeth Practic prim 160 mg prim 160 mg oprim 160 e tablet tablet mg tablet Synthroid Synthroid No Synthroid [facility] 175 mcg 175 mcg 175 mcg Family [...] Family Practic e amiodarone amiodarone No amiodarone [facility] 200 mg 200 mg 200 mg Family tablet Take tablet Take tablet Practic one tablet one tablet Take one e daily daily tablet daily Analpram-HC Analpram-HC No Analpram-H [facility] 2.5 %-1 % 2.5 %-1 % C 2.5 %-1 [facility] rectal rectal % rectal Practic cream cream cream e BD BD No BD [facility] Ultra-Fine Ultra-Fine Ultra-Fine [facility] Short Pen Short Pen Short Pen Practic Needle 31 Needle 31 Needle 31 e gauge x gauge x gauge x 5/16" USE 5/16" USE 5/16" USE UNDER THE UNDER THE UNDER THE SKIN FOUR SKIN FOUR SKIN FOUR TIMES A DAY TIMES A DAY TIMES A DAY ciclopirox ciclopirox No ciclopirox [facility] 0.77 % 0.77 % 0.77 % [facility] topical gel topical gel topical Practic gel e clobetasol clobetasol No clobetasol [facility] 0.05 % 0.05 % 0.05 % [facility] scalp scalp scalp Practic solution solution solution e clobetasol clobetasol No clobetasol [facility] 0.05 % 0.05 % 0.05 % [facility] topical topical topical Practi c ointment ointment ointment e APPLY A APPLY A APPLY A THIN LAYER THIN LAYER THIN LAYER TO HAIR TO HAIR TO HAIR HALF AN HALF AN HALF AN HOUR BEFORE HOUR BEFORE HOUR WASHING WASHING BEFORE HAIR HAIR WASHING HAIR Dexcom G6 Dexcom G6 No Dexcom G6 [facility] Sensor Sensor Sensor Family change change change Practic every ten every ten every ten e days days days Dexcom G6 Dexcom G6 No Dexcom G6 [facility] Transmitter Transmitter Transmitte Family use as use as r use as Practic directed directed directed e diclofenac diclofenac No diclofenac [place] 1 % topical 1 % topical 1 % F amily gel gel topical Practic gel e donepezil donepezil No donepezil [facility] 10 mg 10 mg 10 mg Family [...] Practic cream e ergocalcife ergocalcife No ergocalcif [facility] rol van power Family (vitamin (vitamin (vitamin Pra ctic D2) 1,250 D2) 1,250 D2) 1,250 e mcg (50,000 mcg (50,000 mcg unit) unit) (50,000 capsule capsule unit) Take 1 Take 1 capsule capsule capsule Take 1 every week every week capsule by oral by oral every week route. route. by oral route. fluconazole fluconazole No fluconazol [facility] 100 mg 100 mg e 100 mg Family tablet take tablet take tablet Practic two tablets two tablets take two e day one and day one and tablets then one then one day one until gone until gone and then one until gone fluconazole fluconazole No fluconazol [facility] 150 mg 150 mg e 150 mg Family tablet tablet tablet Practic e fluconazole fluconazole No fluconazol [facility] 200 mg 200 mg e 200 mg Family tablet tablet tablet Practic e fluocinonid fluocinonid No fluocinoni [facility] e 0.05 % e 0.05 % de 0.05 % Fa astrid topical topical topical Practi c solution solution solution e folic acid folic acid No folic acid [facility] 1 mg tablet 1 mg tablet 1 mg F amily tablet Practic e FreeStyle FreeStyle No FreeStyle [place] 14 [place] 14 [place] 14 Fam aissatou Day Sensor Day Sensor Day Sensor Practic kit CHANGE kit CHANGE kit CHANGE e SENSORS Q SENSORS Q SENSORS Q 14 DAYS 14 DAYS 14 DAYS FreeStyle FreeStyle No FreeStyle [facility] [place] 2 [place] 2 [place] 2 Family Sensor Sensor Sensor Practic change q14 change q14 change q14 e days days days furosemide furosemide No furosemide [facility] 40 mg 40 mg 40 mg Family tablet Take tablet Take tablet Practic 1 tablet 1 tablet Take 1 e every day every day tablet by oral by oral every day route as route as by oral needed. needed. route as needed. gabapentin gabapentin No gabapentin [facility] 300 mg 300 mg 300 mg Family capsule capsule capsule Practi c Take 1 Take 1 Take 1 e capsule 3 capsule 3 capsule 3 times a day times a day times a by oral by oral day by route. route. oral route. gentamicin gentamicin No gentamicin [facility] 0.1 % 0.1 % 0.1 % Family topical topical topical Practi c ointment ointment ointment e Humalog Mix Humalog Mix No Humalog [facility] 50-50 50-50 Mix 50-50 Family KwikPen KwikPen KwikPen Practi c U-100 U-100 U-100 e Insulin 100 Insulin 100 Insulin unit/mL unit/mL 100 subcutaneou subcutaneou unit/mL s pen s pen subcutaneo Inject 60 Inject 60 us pen units TID units TID Inject 60 units TID ibuprofen ibuprofen No ibuprofen [facility] 800 mg 800 mg 800 mg Family tablet tablet tablet Practic e ipratropium ipratropium No ipratropiu [facility] bromide 42 bromide 42 m bromide Family mcg (0.06 mcg (0.06 42 mcg Pra ctic %) nasal %) nasal (0.06 %) e spray spray nasal spray ketoconazol ketoconazol No ketoconazo [place] e 2 % e 2 % le 2 % Family topical topical topical Practi c cream cream cream e loratadine loratadine No loratadine [facility] 10 mg 10 mg 10 mg Family tablet tablet tablet Practic e meperidine meperidine No meperidine [facility] 50 mg 50 mg 50 mg Family tablet PRN tablet PRN tablet PRN Practic e mupirocin 2 mupirocin 2 No mupirocin [place] % topical % topical 2 % Famil y ointment ointment topical Prac tic ointment e nitroglycer nitroglycer No nitroglyce [facility] in 0.4 mg in 0.4 mg rin [...] AREA TWICE DAILY nystatin-tr nystatin-tr No nystatin-t [facility] meredithcaleb Family 100,000 100,000 ne 100,000 Pra ctic [...] route. s route. us route. pramipexole pramipexole pramipexol [facility] 0.5 mg 0.5 mg e 0.5 mg Family tablet Take tablet Take tablet Practic 1 tablet 1 tablet Take 1 e twice a day twice a day tablet by oral by oral twice a route. route. day by oral route. propafenone propafenone No propafenon [facility] 150 mg 150 mg e 150 mg [...] paste paste paste salicylic salicylic No salicylic [facility] acid 6 % acid 6 % acid [...] PAT DRY NEEDED sulfamethox sulfamethox No sulfametho [facility] azole 800 azole 800 xazole 800 Family mg-trimetho mg-trimetho mg-trimeth Practic prim 160 mg prim 160 mg oprim 160 e tablet tablet mg tablet Synthroid Synthroid No Synthroid [facility] 175 mcg 175 mcg 175 mcg Family tablet TAKE tablet TAKE tablet Practic 1 TABLET 1 TABLET TAKE 1 e DAILY DAILY TABLET DAILY Tresiba Tresiba No Tresiba [place] [facility] FlexTouch FlexTouch FlexTouch [facility] U-200 U-200 U-200 Practic insulin 200 insulin 200 insulin e unit/mL (3 unit/mL (3 200 mL) mL) unit/mL (3 subcutaneou subcutaneou mL) s pen s pen subcutaneo Inject 40 Inject 40 us pen units daily units daily Inject 40 units daily triamcinolo triamcinolo No triamcinol [facility] ne ne one Family acetonide acetonide acetonide Practic 0.1 % 0.1 % 0.1 % e topical topical topical cream cream cream amiodarone amiodarone No amiodarone [facility] 200 mg 200 mg 200 mg Family tablet Take tablet Take tablet Practic one tablet one tablet Take one e daily daily tablet daily Analpram-HC Analpram-HC No Analpram-H [facility] 2.5 %-1 % 2.5 %-1 % C 2.5 %-1 Family rectal rectal % rectal Practic cream cream cream e BD BD No BD [place] Ultra-Fine Ultra-Fine Ultra-Fine [facility] Short Pen Short Pen Short Pen Practic Needle 31 Needle 31 Needle 31 e gauge x gauge x gauge x /" USE 01/26" USE 01/26" USE UNDER THE UNDER THE UNDER THE SKIN FOUR SKIN FOUR SKIN FOUR TIMES A DAY TIMES A DAY TIMES A DAY ciclopirox ciclopirox No ciclopirox [facility] 0.77 % 0.77 % 0.77 % [facility] topical gel topical gel topical Practic gel e clobetasol clobetasol No clobetasol [facility] 0.05 % 0.05 % 0.05 % Family scalp scalp scalp Practic solution solution solution e clobetasol clobetasol No clobetasol [facility] 0.05 % 0.05 % 0.05 % Family topical topical topical Practi c ointment ointment ointment e APPLY A APPLY A APPLY A THIN LAYER THIN LAYER THIN LAYER TO HAIR TO HAIR TO HAIR HALF AN HALF AN HALF AN HOUR BEFORE HOUR BEFORE HOUR WASHING WASHING BEFORE HAIR HAIR WASHING HAIR [address] Sensor Sensor Sensor Family change change change Practic every ten every ten every ten e days days days [facility] [place] [place] Dex[employer] [address] Transmitter Transmitter Transmitte Family use as use as r use as Practic directed directed directed e diclofenac diclofenac No diclofenac [facility] 1 % topical 1 % topical 1 % F amily gel gel topical Practic gel e donepezil donepezil No donepezil [facility] 10 mg 10 mg 10 mg Family [...] Practic cream e ergocalcife ergocalcife No ergocalcif [facility] van power Family (vitamin (vitamin (vitamin Pra ctic D2) 1,250 D2) 1,250 D2) 1,250 e mcg (50,000 mcg (50,000 mcg unit) unit) (50,000 capsule capsule unit) Take 1 Take 1 capsule capsule capsule Take 1 every week every week capsule by oral by oral every week route. route. by oral route. fluconazole fluconazole No fluconazol [facility] 100 mg 100 mg e 100 mg Family tablet take tablet take tablet Practic two tablets two tablets take two e day one and day one and tablets then one then one day one until gone until gone and then one until gone fluconazole fluconazole No fluconazol [facility] 150 mg 150 mg e 150 mg Family tablet tablet tablet Practic e fluconazole fluconazole No fluconazol [facility] 200 mg 200 mg e 200 mg Family tablet tablet tablet Practic e fluocinonid fluocinonid No fluocinoni [facility] e 0.05 % e 0.05 % de 0.05 % Fa astrid topical topical topical Practi c solution solution solution e folic acid folic acid No folic acid [facility] 1 mg tablet 1 mg tablet 1 mg F amily tablet Practic e FreeStyle FreeStyle No FreeStyle [place] 14 [place] 14 [place] 14 Fam aissatou Day Sensor Day Sensor Day Sensor Practic kit CHANGE kit CHANGE kit CHANGE e SENSORS Q SENSORS Q SENSORS Q 14 DAYS 14 DAYS 14 DAYS FreeStyle FreeStyle No FreeStyle [facility] [place] 2 [place] 2 [place] 2 Family Sensor Sensor Sensor Practic change q14 change q14 change q14 e days days days furosemide furosemide No furosemide [facility] 40 mg 40 mg 40 mg Family tablet Take tablet Take tablet Practic 1 tablet 1 tablet Take 1 e every day every day tablet by oral by oral every day route as route as by oral needed. needed. route as needed. gabapentin gabapentin No gabapentin [facility] 300 mg 300 mg 300 mg Family capsule capsule capsule Practi c Take 1 Take 1 Take 1 e capsule 3 capsule 3 capsule 3 times a day times a day times a by oral by oral day by route. route. oral route. gentamicin gentamicin No gentamicin [facility] 0.1 % 0.1 % 0.1 % Family topical topical topical Practi c ointment ointment ointment e Humalog Mix Humalog Mix No Humalog [facility] 50-50 50-50 Mix 50-50 [facility] KwikPen KwikPen KwikPen Practi c U-100 U-100 U-100 e Insulin 100 Insulin 100 Insulin unit/mL unit/mL 100 subcutaneou subcutaneou unit/mL s pen s pen subcutaneo Inject 60 Inject 60 us pen units TID units TID Inject 60 units TID ibuprofen ibuprofen No ibuprofen [facility] 800 mg 800 mg 800 mg Family tablet tablet tablet Practic e ipratropium ipratropium No ipratropiu [facility] bromide 42 bromide 42 m bromide Family mcg (0.06 mcg (0.06 42 mcg Pra ctic %) nasal %) nasal (0.06 %) e spray spray nasal spray ketoconazol ketoconazol No ketoconazo [facility] e 2 % e 2 % le 2 % Family topical topical topical Practi c cream cream cream e loratadine loratadine No loratadine [facility] 10 mg 10 mg 10 mg Family tablet tablet tablet Practic e meperidine meperidine meperidine [facility] 50 mg 50 mg 50 mg Family tablet PRN tablet PRN tablet PRN Practic e mupirocin 2 mupirocin 2 No mupirocin [place] % topical % topical 2 % Famil y ointment ointment topical Prac tic ointment e nitroglycer nitroglycer No nitroglyce [facility] in 0.4 mg in 0.4 mg rin 0.4 mg [facility] sublingual sublingual sublingual Practic tablet tablet tablet e Place [address] 1 tablet as tablet as tablet as needed by needed by needed by sublingual sublingual sublingual route. route. route. nystatin [facility],000 Family unit/gram unit/gram unit/gram Practic topical topical topical e cream APPLY cream APPLY cream TOPICALLY TOPICALLY APPLY TO THE TO THE TOPICALLY AFFECTED AFFECTED TO THE AREA TWICE AREA TWICE AFFECTED DAILY DAILY AREA TWICE DAILY nystatin-tr nystatin-tr No nystatin-t [facility] iamcinolone iamcinolone riamcinolo Family 100,000 100,000 ne [...] DAILY TIMES DAILY Praluent Praluent No Praluent [facility] Pen 75 Pen 75 Pen 75 Family mg/mL mg/mL mg/mL Practic subcutaneou subcutaneou subcutaneo e s pen s pen us pen injector injector injector Inject 1 mL Inject 1 mL Inject 1 every 2 every 2 mL every 2 weeks by weeks by weeks by subcutaneou subcutaneou subcutaneo s route. s route. us route. pramipexole pramipexole No pramipexol [facility] 0.5 mg 0.5 mg e 0.5 mg [facility] tablet Take tablet Take tablet Practic 1 tablet 1 tablet Take 1 e twice a day twice a day tablet by oral by oral twice a route. route. day by oral route. propafenone propafenone No propafenon [facility] 150 mg 150 mg e 150 mg [...] paste paste paste salicylic salicylic No salicylic [facility] acid 6 % acid 6 % acid [...] PAT DRY NEEDED sulfamethox sulfamethox No sulfametho [facility] azole 800 azole 800 xazole 800 Family [...] 55 units daily triamcinolo triamcinolo No triamcinol [facility] ne ne one Family acetonide acetonide acetonide Practic 0.1 % 0.1 % 0.1 % e topical topical topical cream cream cream amiodarone amiodarone No amiodarone [facility] 200 mg 200 mg 200 mg Family tablet Take tablet Take tablet Practic one tablet one tablet Take one e daily daily tablet daily Analpram-HC Analpram-HC No Analpram-H [facility] 2.5 %-1 % 2.5 %-1 % C [...] TIMES A DAY clobetasol clobetasol No clobetasol [facility] 0.05 % 0.05 % 0.05 % [facility] scalp scalp scalp Practic solution solution solution e APPLY A APPLY A APPLY A THIN LAYER THIN LAYER THIN LAYER TO HAIR TO HAIR TO HAIR HALF AN HALF AN HALF AN HOUR BEFORE HOUR BEFORE HOUR WASHING WASHING BEFORE HAIR HAIR WASHING HAIR clobetasol clobetasol No clobetasol [facility] 0.05 % 0.05 % 0.05 % [facility] topical topical topical Practi c ointment ointment ointment e APPLY A APPLY A APPLY A THIN LAYER THIN LAYER THIN LAYER TO HAIR TO HAIR TO HAIR HALF AN HALF AN HALF AN HOUR BEFORE HOUR BEFORE HOUR WASHING WASHING BEFORE HAIR HAIR WASHING HAIR donepezil donepezil No donepezil [facility] 10 mg 10 mg 10 mg Family [...] Practic cream e ergocalcife ergocalcife No ergocalcif [facility] van power [facility] (vitamin (vitamin (vitamin Pra ctic D2) 1,250 D2) 1,250 D2) 1,250 e mcg (50,000 mcg (50,000 mcg unit) unit) (50,000 capsule capsule unit) Take 1 Take 1 capsule capsule capsule Take 1 every week every week capsule by oral by oral every week route. route. by oral route. fluocinonid fluocinonid No fluocinoni [facility] e 0.05 % e 0.05 % de 0.05 % Fa astrid topical topical topical Practi c solution solution solution e folic acid folic acid No folic acid [place] 1 mg tablet 1 mg tablet 1 mg F amily tablet Practic e FreeStyle FreeStyle No FreeStyle [place] 14 [place] 14 [place] 14 Fam aissatou Day Sensor Day Sensor Day Sensor Practic kit CHANGE kit CHANGE kit CHANGE e SENSORS Q SENSORS Q SENSORS Q 14 DAYS 14 DAYS 14 DAYS FreeStyle FreeStyle No FreeStyle [place] 2 [place] 2 [place] 2 [facility] Sensor Sensor Sensor Practic change q14 change q14 change q14 e days days days furosemide furosemide No furosemide [facility] 40 mg 40 mg 40 mg Family tablet Take tablet Take tablet Practic 1 tablet 1 tablet Take 1 e every day every day tablet by oral by oral every day route as route as by oral needed. needed. route as needed. gabapentin gabapentin No gabapentin [facility] 300 mg 300 mg 300 mg Family capsule capsule capsule Practi c Take 1 Take 1 Take 1 e capsule 3 capsule 3 capsule 3 times a day times a day times a by oral by oral day by route. route. oral route. gentamicin gentamicin No gentamicin [facility] 0.1 % 0.1 % 0.1 % Family topical topical topical Practi c ointment ointment ointment e Humalog Mix Humalog Mix No Humalog [facility] 50-50 50-50 Mix 50-50 Family KwikPen KwikPen KwikPen Practi c U-100 U-100 U-100 e Insulin 100 Insulin 100 Insulin unit/mL unit/mL 100 subcutaneou subcutaneou unit/mL s pen s pen subcutaneo Inject 60 Inject 60 us pen units TID units TID Inject 60 units TID ibuprofen ibuprofen No ibuprofen [facility] 800 mg 800 mg 800 mg Family tablet tablet tablet Practic e ipratropium ipratropium No ipratropiu [facility] bromide 42 bromide 42 m bromide Family mcg (0.06 mcg (0.06 42 mcg Pra ctic %) nasal %) nasal (0.06 %) e spray spray nasal spray ketoconazol ketoconazol No ketoconazo [facility] e 2 % e 2 % le 2 % Family topical topical topical Practi c cream cream cream e loratadine loratadine No loratadine [facility] 10 mg 10 mg 10 mg Family tablet tablet tablet Practic e meperidine meperidine No meperidine [facility] 50 mg 50 mg 50 mg Family tablet PRN tablet PRN tablet PRN Practic e mupirocin 2 mupirocin 2 No mupirocin [place] % topical % topical 2 % Famil y ointment ointment topical Prac tic ointment e nitroglycer nitroglycer nitroglyce [facility] in 0.4 mg in 0.4 mg rin [...] AREA TWICE DAILY nystatin-tr nystatin-tr No nystatin-t [facility] iainolone iamcinolone riainolo Family 100,000 100,000 ne 100,000 [...] route. us route. propafenone propafenone No propafenon [facility] 150 mg 150 mg e 150 mg [...] 54 units daily Analpram-HC Analpram-HC No Analpram-H [facility] 2.5 %-1 % 2.5 %-1 % C 2.5 %-1 Family rectal rectal % rectal Practic cream cream cream e Insert by Insert by Insert by rectal rectal rectal route as route as route as needed. needed. needed. BD BD No BD [facility] Ultra-Fine Ultra-Fine Ultra-Fine [facility] Short Pen Short Pen Short Pen Practic Needle 31 Needle 31 Needle 31 e gauge x gauge x gauge x 01/26" USE 01/26" USE 01/26" USE UNDER THE UNDER THE UNDER THE SKIN FOUR SKIN FOUR SKIN FOUR TIMES A DAY TIMES A DAY TIMES A DAY clobetasol clobetasol No clobetasol [facility] 0.05 % 0.05 % 0.05 % [facility] scalp scalp scalp Practic solution solution solution e APPLY A APPLY A APPLY A THIN LAYER THIN LAYER THIN LAYER TO HAIR TO HAIR TO HAIR HALF AN HALF AN HALF AN HOUR BEFORE HOUR BEFORE HOUR WASHING WASHING BEFORE HAIR HAIR WASHING HAIR clobetasol clobetasol No clobetasol [facility] 0.05 % 0.05 % 0.05 % [facility] topical topical topical Practi c ointment ointment ointment e APPLY A APPLY A APPLY A THIN LAYER THIN LAYER THIN LAYER TO HAIR TO HAIR TO HAIR HALF AN HALF AN HALF AN HOUR BEFORE HOUR BEFORE HOUR WASHING WASHING BEFORE HAIR HAIR WASHING HAIR donepezil donepezil donepezil [facility] 10 mg 10 mg 10 mg [facility] tablet Take tablet Take tablet Practic 1 tablet 1 tablet Take 1 e every day every day tablet by oral by oral every day route at route at by oral bedtime. bedtime. route at bedtime. econazole 1 econazole 1 No econazole [place] % topical % topical 1 % Famil y cream cream topical Practic cream e ergocalcife ergocalcife No ergocalcif [facility] rol rol tono [facility] (vitamin (vitamin (vitamin Pra ctic D2) [...] folic acid folic acid No folic acid [facility] 1 mg tablet 1 mg tablet 1 [...] days days days furosemide furosemide No furosemide [facility] 40 mg 40 mg 40 mg Family tablet Take tablet Take tablet Practic 1 tablet 1 tablet Take 1 e every day every day tablet by oral by oral every day route as route as by oral needed. needed. route as needed. gabapentin gabapentin No gabapentin [facility] 300 mg 300 mg 300 mg Family capsule capsule capsule Practi c Take 1 Take 1 Take 1 e capsule 3 capsule 3 capsule 3 times a day times a day times a by oral by oral day by route. route. oral route. gentamicin gentamicin No gentamicin [facility] 0.1 % 0.1 % 0.1 % [facility] topical topical topical Practi c ointment ointment ointment e Humalog Mix Humalog Mix No Humalog [facility] 50-50 50-50 Mix 50-50 [facility] KwikPen KwikPen KwikPen Practi c U-100 U-100 U-100 e Insulin 100 Insulin 100 Insulin unit/mL unit/mL 100 subcutaneou subcutaneou unit/mL s pen s pen subcutaneo Inject 60 Inject 60 us pen units TID units TID Inject 60 units TID hydrocortis hydrocortis No hydrocorti [facility] one 2.5 % one 2.5 % sone 2.5 % Family lotion lotion lotion Practic e ipratropium ipratropium No ipratropiu [facility] bromide 42 bromide 42 m bromide Family mcg (0.06 mcg (0.06 42 mcg Pra ctic %) nasal %) nasal (0.06 %) e spray spray nasal spray ketoconazol ketoconazol No ketoconazo [place] e 2 % e 2 % le 2 % Family topical topical topical Practi c cream cream cream e loratadine loratadine No loratadine [facility] 10 mg 10 mg 10 mg Family tablet tablet tablet Practic e meperidine meperidine No meperidine [facility] 50 mg 50 mg 50 mg Family tablet PRN tablet PRN tablet PRN Practic e mupirocin 2 mupirocin 2 No mupirocin [place] % topical % topical 2 % Famil y ointment ointment topical Prac tic ointment e nitroglycer nitroglycer No nitroglyce [facility] in 0.4 mg in 0.4 mg rin 0.4 mg Family sublingual sublingual sublingual Practic tablet tablet tablet e Place [address] 1 tablet as tablet as tablet as needed by needed by needed by sublingual sublingual sublingual route. route. route. nystatin nystatin No nystatin Angela pedersen 100,000 100,000 100,000 Family unit/gram unit/gram unit/gram Practic topical topical topical e cream APPLY cream APPLY cream TOPICALLY TOPICALLY APPLY TO THE TO THE TOPICALLY AFFECTED AFFECTED TO THE AREA TWICE AREA TWICE AFFECTED DAILY DAILY AREA TWICE DAILY nystatin-tr nystatin-tr No nystatin-t [facility] iamcinolone iamcinolone riamcinolo Family 100,000 100,000 ne [...] times per day OneTouch OneTouch No OneTouch [facility] test Verio test Verio test Family [...] route. s route. us route. propafenone propafenone propafenon [facility] 150 mg 150 mg e 150 mg [facility] tablet Take tablet Take tablet Practic [...] 54 units daily Analpram-HC Analpram-HC No Analpram-H [facility] 2.5 %-1 % 2.5 %-1 % C 2.5 %-1 [facility] rectal rectal % rectal Practic cream cream cream e Insert by Insert by Insert by rectal rectal rectal route as route as route as needed. needed. needed. BD BD No BD [facility] Ultra-Fine Ultra-Fine Ultra-Fine [facility] Short Pen Short Pen Short Pen Practic Needle 31 Needle 31 Needle 31 e gauge x gauge x gauge x 5/16" USE 5/16" USE 5/16" USE UNDER THE UNDER THE UNDER THE SKIN FOUR SKIN FOUR SKIN FOUR TIMES A DAY TIMES A DAY TIMES A DAY clobetasol clobetasol No clobetasol [facility] 0.05 % 0.05 % 0.05 % [facility] scalp scalp scalp Practic solution solution solution e APPLY A APPLY A APPLY A THIN LAYER THIN LAYER THIN LAYER TO HAIR TO HAIR TO HAIR HALF AN HALF AN HALF AN HOUR BEFORE HOUR BEFORE HOUR WASHING WASHING BEFORE HAIR HAIR WASHING HAIR clobetasol clobetasol No clobetasol [facility] 0.05 % 0.05 % 0.05 % [facility] topical topical topical Practi c ointment ointment ointment e APPLY A APPLY A APPLY A THIN LAYER THIN LAYER THIN LAYER TO HAIR TO HAIR TO HAIR HALF AN HALF AN HALF AN HOUR BEFORE HOUR BEFORE HOUR WASHING WASHING BEFORE HAIR HAIR WASHING HAIR donepezil donepezil No donepezil [facility] 10 mg 10 mg 10 mg Family [...] Practic cream e ergocalcife ergocalcife No ergocalcif [facility] van power Family (vitamin (vitamin (vitamin Pra ctic D2) 1,250 D2) 1,250 D2) 1,250 e mcg (50,000 mcg (50,000 mcg unit) unit) (50,000 capsule capsule unit) Take 1 Take 1 capsule capsule capsule Take 1 every week every week capsule by oral by oral every week route. route. by oral route. fluocinonid fluocinonid No fluocinoni [facility] e 0.05 % e 0.05 % de 0.05 % Fa astrid topical topical topical Practi c solution solution solution e APPLY A APPLY A APPLY A THIN LAYER THIN LAYER THIN LAYER TO SCALP TO SCALP TO SCALP TWICE A TWICE A TWICE A WEEK WEEK WEEK folic acid folic acid No folic acid [facility] 1 mg tablet 1 mg tablet 1 mg F amily tablet Practic e FreeStyle FreeStyle No FreeStyle [facility] [place] 14 [place] 14 [place] 14 Fam aissatou Day Sensor Day Sensor Day Sensor Practic kit CHANGE kit CHANGE kit CHANGE e SENSORS Q SENSORS Q SENSORS Q 14 DAYS 14 DAYS 14 DAYS FreeStyle FreeStyle No FreeStyle [facility] [place] 2 [place] 2 [place] 2 Family Sensor Sensor Sensor Practic change q14 change q14 change q14 e days days days furosemide furosemide No furosemide [facility] 40 mg 40 mg 40 mg Family tablet Take tablet Take tablet Practic 1 tablet 1 tablet Take 1 e every day every day tablet by oral by oral every day route as route as by oral needed. needed. route as needed. gabapentin gabapentin No gabapentin [facility] 300 mg 300 mg 300 mg Family capsule capsule capsule Practi c Take 1 Take 1 Take 1 e capsule 3 capsule 3 capsule 3 times a day times a day times a by oral by oral day by route. route. oral route. gentamicin gentamicin No gentamicin [facility] 0.1 % 0.1 % 0.1 % Family topical topical topical Practi c ointment ointment ointment e Humalog Mix Humalog Mix No Humalog [facility] 50-50 50-50 Mix 50-50 Family KwikPen JohnikPen KwikPen Practi c U-100 U-100 U-100 e Insulin 100 Insulin 100 Insulin unit/mL unit/mL 100 subcutaneou subcutaneou unit/mL s pen s pen subcutaneo Inject 60 Inject 60 us pen units TID units TID Inject 60 units TID hydrocortis hydrocortis No hydrocorti [place] one 2.5 % one 2.5 % sone 2.5 % Family lotion lotion lotion Practic e hydrocortis hydrocortis No hydrocorti [place] one-pramoxi one-pramoxi sone-pramo Family ne 2.5 %-1 ne 2.5 %-1 xine 2.5 Practic % topical % topical %-1 % e cream APPLY cream APPLY topical A THIN A THIN cream LAYER TO LAYER TO APPLY A AFFECTED AFFECTED THIN LAYER AREA ON AREA ON TO LABIA EVERY LABIA EVERY AFFECTED DAY DAY AREA ON LABIA EVERY DAY ipratropium ipratropium No ipratropiu [facility] bromide 42 bromide 42 m bromide Family [...] Practic patch e loratadine loratadine No loratadine [facility] 10 mg 10 mg 10 mg Family tablet tablet tablet Practic e meperidine meperidine No meperidine [facility] 50 mg 50 mg 50 mg Family [...] nystatin-tr nystatin-tr No nystatin-t [place] iamcinolone iamcinolone riamcinolo Family 100,000 100,000 ne [...] route. us route. propafenone propafenone No propafenon [facility] 150 mg 150 mg e 150 mg [...] 54 units daily Analpram-HC Analpram-HC No Analpram-H [place] 2.5 %-1 % 2.5 %-1 % C 2.5 %-1 Family rectal rectal % rectal Practic cream cream cream e Insert by Insert by Insert by rectal rectal rectal route as route as route as needed. needed. needed. azithromyci azithromyci No [address] [facility] n 500 mg n 500 mg in 500 mg Fa astrid tablet Take tablet Take tablet Practic 1 tablet 1 tablet Take 1 e every day every day tablet by oral by oral every day route for 5 route for 5 by oral days. days. route for 5 days. BD BD No BD [place] Ultra-Fine Ultra-Fine Ultra-Fine Family Short Pen Short Pen Short Pen Practic Needle 31 Needle 31 Needle 31 e gauge x gauge x gauge x 5/16" USE 5/16" USE 5/16" USE UNDER THE UNDER THE UNDER THE SKIN FOUR SKIN FOUR SKIN FOUR TIMES A DAY TIMES A DAY TIMES A DAY benzonatate benzonatate No 1capsul TID benzonatat [facility] 200 mg 200 mg e(s) e 200 mg Family capsule capsule capsule Practi c Take 1 Take 1 Take 1 e capsule 3 capsule 3 capsule 3 times a day times a day times a by oral by oral day by route as route as oral route needed. needed. as needed. Chlorasepti Chlorasepti No 1spray( TID Chlorasept [place] c Throat c Throat s) ic Throat Fa astrid [place] 1.4 % [place] 1.4 % [place] 1.4 Practic aerosol aerosol % aerosol e Take 1 Take 1 Take 1 spray 3 spray 3 spray 3 times a day times a day times a by mucous by mucous day by route as route as mucous needed. needed. route as needed. clobetasol clobetasol No clobetasol [facility] 0.05 % 0.05 % 0.05 % [facility] scalp scalp scalp Practic solution solution solution e APPLY A APPLY A APPLY A THIN LAYER THIN LAYER THIN LAYER TO HAIR TO HAIR TO HAIR HALF AN HALF AN HALF AN HOUR BEFORE HOUR BEFORE HOUR WASHING WASHING BEFORE HAIR HAIR WASHING HAIR clobetasol clobetasol No clobetasol [facility] 0.05 % 0.05 % 0.05 % [facility] topical topical topical Practi c ointment ointment ointment e APPLY A APPLY A APPLY A THIN LAYER THIN LAYER THIN LAYER TO HAIR TO HAIR TO HAIR HALF AN HALF AN HALF AN HOUR BEFORE HOUR BEFORE HOUR WASHING WASHING BEFORE HAIR HAIR WASHING HAIR donepezil donepezil No donepezil [facility] 10 mg 10 mg 10 mg Family [...] Practic cream e ergocalcife ergocalcife No ergocalcif [facility] rol van tono [facility] (vitamin (vitamin (vitamin Pra ctic D2) 1,250 D2) 1,250 D2) 1,250 e mcg (50,000 mcg (50,000 mcg unit) unit) (50,000 capsule capsule unit) Take 1 Take 1 capsule capsule capsule Take 1 every week every week capsule by oral by oral every week route. route. by oral route. fluocinonid fluocinonid No fluocinoni [facility] e 0.05 % e 0.05 % de 0.05 % Fa astrid topical topical topical Practi c solution solution solution e APPLY A APPLY A APPLY A THIN LAYER THIN LAYER THIN LAYER TO SCALP TO SCALP TO SCALP TWICE A TWICE A TWICE A WEEK WEEK WEEK fluticasone fluticasone No 1spray( BID fluticason [place] propionate propionate s) e Fam aissatou 50 50 propionate Practic mcg/actuati mcg/actuati 50 e on nasal on nasal mcg/actuat spray,suspe spray,suspe ion nasal nsion [place] nsion [place] spray,susp 1 spray 1 spray ension twice a day twice a day [place] 1 by by spray intranasal intranasal twice a route. route. day by intranasal route. folic acid folic acid No folic acid [facility] 1 mg tablet 1 mg tablet 1 [...] days days days furosemide furosemide No furosemide [facility] 40 mg 40 mg 40 mg Family tablet Take tablet Take tablet Practic 1 tablet 1 tablet Take 1 e every day every day tablet by oral by oral every day route as route as by oral needed. needed. route as needed. gabapentin gabapentin No gabapentin [facility] 300 mg 300 mg 300 mg Family capsule capsule capsule Practi c Take 1 Take 1 Take 1 e capsule 3 capsule 3 capsule 3 times a day times a day times a by oral by oral day by route. route. oral route. gentamicin gentamicin No gentamicin [facility] 0.1 % 0.1 % 0.1 % Family topical topical topical Practi c ointment ointment ointment e Humalog Mix Humalog Mix No Humalog [facility] 50-50 50-50 Mix 50-50 Family KwikPen KwikPen KwikPen Practi c U-100 U-100 U-100 e Insulin 100 Insulin 100 Insulin unit/mL unit/mL 100 subcutaneou subcutaneou unit/mL s pen s pen subcutaneo Inject 60 Inject 60 us pen units TID units TID Inject 60 units TID hydrocortis hydrocortis No [facility] one 2.5 % one 2.5 % sone 2.5 % Family lotion lotion lotion Practic e hydrocortis hydrocortis No hydrocorti [facility] one-pramoxi one-pramoxi sone-pramo Family ne 2.5 %-1 ne 2.5 %-1 xine 2.5 Practic % topical % topical %-1 % e cream APPLY cream APPLY topical A THIN A THIN cream LAYER TO LAYER TO APPLY A AFFECTED AFFECTED THIN LAYER AREA ON AREA ON TO LABIA EVERY LABIA EVERY AFFECTED DAY DAY AREA ON LABIA EVERY DAY [facility] 42 bromide 42 m bromide Family [...] Practic patch e loratadine loratadine No loratadine [facility] 10 mg 10 mg 10 mg Family tablet tablet tablet Practic e meperidine meperidine No meperidine [facility] 50 mg 50 mg 50 mg Family [...] nystatin-tr nystatin-tr No nystatin-t [facility] iamcinolone iamcinolone riamcinolo Family 100,000 100,000 ne [...] route. us route. propafenone propafenone No propafenon [facility] 150 mg 150 mg e 150 mg [...] daily units daily Inject 54 units daily albuterol albuterol No 3mL T[facility] sulfate 2.5 sulfate 2.5 sulfate Family mg/3 mL mg/3 mL 2.5 mg/3 Pract ic (0.083 %) (0.083 %) mL (0.083 e solution solution %) for for solution nebulizatio nebulizatio for n Inhale 3 n Inhale 3 nebulizati mL 3 times mL 3 times on Inhale a day by a day by 3 mL 3 nebulizatio nebulizatio times a n route as n route as day by needed. needed. nebulizati on route as needed. Analpram-HC Analpram-HC No Analpram-H [facility] 2.5 %-1 % 2.5 %-1 % C 2.5 %-1 Family rectal rectal % rectal Practic cream cream cream e Insert by Insert by Insert by rectal rectal rectal route as route as route as needed. needed. needed. BD BD No BD [place] Ultra-Fine Ultra-Fine Ultra-Fine [facility] Short Pen Short Pen Short Pen Practic Needle 31 Needle 31 Needle 31 e gauge x gauge x gauge x /" USE 01/26" USE 01/26" USE UNDER THE UNDER THE UNDER THE SKIN FOUR SKIN FOUR SKIN FOUR TIMES A DAY TIMES A DAY TIMES A DAY benzonatate benzonatate No benzonatat [facility] 200 mg 200 mg e 200 mg [facility] capsule capsule capsule Practi c TAKE 1 TAKE 1 TAKE 1 e CAPSULE BY CAPSULE BY CAPSULE BY MOUTH THREE MOUTH THREE MOUTH TIMES DAILY TIMES DAILY THREE NEEDED NEEDED TIMES DAILY NEEDED Chlorasepti Chlorasepti No 1spray( TID Chlorasept [place] c Throat c Throat s) ic Throat Fa astrid [place] 1.4 % [place] 1.4 % [place] 1.4 Practic aerosol aerosol % aerosol e Take 1 Take 1 Take 1 spray 3 spray 3 spray 3 times a day times a day times a by mucous by mucous day by route as route as mucous needed. needed. route as needed. clobetasol clobetasol No clobetasol [facility] 0.05 % 0.05 % 0.05 % [facility] scalp scalp scalp Practic solution solution solution e APPLY A APPLY A APPLY A THIN LAYER THIN LAYER THIN LAYER TO HAIR TO HAIR TO HAIR HALF AN HALF AN HALF AN HOUR BEFORE HOUR BEFORE HOUR WASHING WASHING BEFORE HAIR HAIR WASHING HAIR clobetasol clobetasol No clobetasol [facility] 0.05 % 0.05 % 0.05 % [facility] topical topical topical Practi c ointment ointment ointment e APPLY A APPLY A APPLY A THIN LAYER THIN LAYER THIN LAYER TO HAIR TO HAIR TO HAIR HALF AN HALF AN HALF AN HOUR BEFORE HOUR BEFORE HOUR WASHING WASHING BEFORE HAIR HAIR WASHING HAIR donepezil donepezil No donepezil [facility] 10 mg 10 mg 10 mg Family [...] Practic cream e ergocalcife ergocalcife No ergocalcif [facility] van power Family (vitamin (vitamin (vitamin Pra ctic D2) 1,250 D2) 1,250 D2) 1,250 e mcg (50,000 mcg (50,000 mcg unit) unit) (50,000 capsule capsule unit) Take 1 Take 1 capsule capsule capsule Take 1 every week every week capsule by oral by oral every week route. route. by oral route. fluocinonid fluocinonid No fluocinoni [facility] e 0.05 % e 0.05 % de 0.05 % Fa astrid topical topical topical Practi c solution solution solution e APPLY A APPLY A APPLY A THIN LAYER THIN LAYER THIN LAYER TO SCALP TO SCALP TO SCALP TWICE A TWICE A TWICE A WEEK WEEK WEEK fluticasone fluticasone No fluticason [facility] propionate propionate e Fam aissatou 50 50 propionate Practic mcg/actuati mcg/actuati 50 e on nasal on nasal mcg/actuat spray,suspe spray,suspe ion nasal nsion SHAKE nsion SHAKE spray,susp LIQUID AND LIQUID AND ension USE 1 SPRAY USE 1 SPRAY SHAKE IN EACH IN EACH LIQUID AND NOSTRIL NOSTRIL USE 1 TWICE DAILY TWICE DAILY SPRAY IN EACH NOSTRIL TWICE DAILY folic acid folic acid No folic acid [facility] 1 mg tablet 1 mg tablet 1 mg F amily tablet Practic e FreeStyle FreeStyle No FreeStyle [facility] Lorraine 14 Lorraine 14 [place] 14 Fam aissatou Day Sensor Day Sensor Day Sensor Practic kit CHANGE kit CHANGE kit CHANGE e SENSORS Q SENSORS Q SENSORS Q 14 DAYS 14 DAYS 14 DAYS FreeStyle FreeStyle No FreeStyle [facility] [place] 2 [place] 2 [place] 2 Family Sensor Sensor Sensor Practic change q14 change q14 change q14 e days days days furosemide furosemide No furosemide [facility] 40 mg 40 mg 40 mg Family tablet Take tablet Take tablet Practic 1 tablet 1 tablet Take 1 e every day every day tablet by oral by oral every day route as route as by oral needed. needed. route as needed. gabapentin gabapentin No gabapentin [facility] 300 mg 300 mg 300 mg Family capsule capsule capsule Practi c Take 1 Take 1 Take 1 e capsule 3 capsule 3 capsule 3 times a day times a day times a by oral by oral day by route. route. oral route. gentamicin gentamicin No gentamicin [facility] 0.1 % 0.1 % 0.1 % Family topical topical topical Practi c ointment ointment ointment e Humalog Mix Humalog Mix No Humalog [place] 50-50 50-50 Mix 50-50 Family KwikPen JohnikPen JohnikPen Practi c U-100 U-100 U-100 e Insulin 100 Insulin 100 Insulin unit/mL unit/mL 100 subcutaneou subcutaneou unit/mL s pen s pen subcutaneo Inject 60 Inject 60 us pen units TID units TID Inject 60 units TID hydrocortis hydrocortis No hydrocorti [facility] one 2.5 % one 2.5 % sone 2.5 % Family lotion lotion lotion Practic e hydrocortis hydrocortis No hydrocorti [facility] one-pramoxi one-pramoxi sone-pramo Family ne 2.5 %-1 ne 2.5 %-1 xine 2.5 Practic % topical % topical %-1 % e cream APPLY cream APPLY topical A THIN A THIN cream LAYER TO LAYER TO APPLY A AFFECTED AFFECTED THIN LAYER AREA ON AREA ON TO LABIA EVERY LABIA EVERY AFFECTED DAY DAY AREA ON LABIA EVERY DAY ipratropium ipratropium No ipratropiu [facility] bromide 42 bromide 42 m bromide Family mcg (0.06 mcg (0.06 42 mcg Pra ctic %) nasal %) nasal (0.06 %) e spray spray nasal spray ketoconazol ketoconazol No ketoconazo [facility] e 2 % e 2 % le 2 % Family topical topical topical Practi c cream cream cream e levofloxaci levofloxaci No levofloxac [facility] n 500 mg n 500 mg in 500 mg Fa astrid tablet TAKE tablet TAKE tablet Practic 1 TABLET BY 1 TABLET BY TAKE 1 e MOUTH EVERY MOUTH EVERY TABLET BY DAY X 7 DAY X 7 MOUTH DAYS DAYS EVERY DAY X 7 DAYS lidocaine 5 lidocaine 5 No lidocaine [place] % topical % topical 5 % Famil y patch patch topical Practic patch e loratadine loratadine No loratadine [facility] 10 mg 10 mg 10 mg Family tablet tablet tablet Practic e meperidine meperidine No meperidine [facility] 50 mg 50 mg 50 mg Family [...] PAIN CHEST PAIN nystatin nystatin No nystatin [facility] 100,000 100,000 100,000 Family unit/gram unit/gram unit/gram Practic topical topical topical e cream APPLY cream APPLY cream TOPICALLY TOPICALLY APPLY TO THE TO THE TOPICALLY AFFECTED AFFECTED TO THE AREA TWICE AREA TWICE AFFECTED DAILY DAILY AREA TWICE DAILY nystatin-tr nystatin-tr No nystatin-t [facility] iamcinolone iamcinolone riamcinolo Family 100,000 100,000 ne 100,000 Pra ctic unit/g-0.1 unit/g-0.1 unit/g-0.1 e % topical % topical % topical cream cream cream OneTouch OneTouch No OneTouch [facility] Delica Delica Family Lancets 30 Lancets 30 Lancets 30 Practic gauge Check gauge Check gauge e blood sugar blood sugar Check 3 times per 3 times per blood day day sugar 3 times per day OneTouch OneTouch No OneTouch [facility] Verio test Verio test Verio test Family [...] subcutaneo s route. s route. us route. promethazin promethazin No 5mL Q4H promethazi [facility] e-DM 6.25 e-DM 6.25 ne-DM 6.25 Family mg-15 mg/5 mg-15 mg/5 mg-15 mg/5 Practic mL oral mL oral mL oral e syrup Take syrup Take syrup Take 5 mL every 5 mL every 5 mL every 4 hours by 4 hours by 4 hours by oral route oral route oral route as needed. as needed. as needed. propafenone propafenone No propafenon [facility] 150 mg 150 mg e 150 mg Family tablet Take tablet Take tablet Practic 1 tablet 1 tablet Take 1 e every 8 every 8 tablet hours by hours by every 8 oral route. oral route. hours by oral route. Remedy Remedy No Remedy [facility] Phytoplex Phytoplex Phytoplex [facility] Z-Guard Z-Guard Z-Guard Practi c (zinc (zinc [...] daily units daily Inject 54 units daily Immunizations Ordered Immunization Filled Immunization Date Status Commen ts Source Name Name influenza, high-dose, influenza, high-dose, 2022-06-15 Completed [facility] quadrivalent quadrivalent 00:00:00 Practice influenza, high-dose, influenza, high-dose, 2022-06-15 Completed [facility] quadrivalent quadrivalent 00:00:00 Practice influenza, high-dose, influenza, high-dose, 2022-06-15 Completed [facility] quadrivalent quadrivalent 00:00:00 Practice influenza, high-dose, influenza, high-dose, 2022-06-15 Completed [facility] quadrivalent quadrivalent 00:00:00 Practice influenza, high-dose, influenza, high-dose, 2022-06-15 Completed [facility] quadrivalent quadrivalent 00:00:00 Practice influenza, high-dose, influenza, high-dose, 2022-06-15 Completed [facility] quadrivalent quadrivalent 00:00:00 Practice influenza, high-dose, influenza, high-dose, 2022-06-15 Completed [facility] quadrivalent quadrivalent 00:00:00 Practice influenza, seasonal, influenza, [...] Practice influenza, seasonal, influenza, seasonal, 2010-05-[address] [facility] Family injectable injectable 00:00:00 Practice influenza, seasonal, influenza, seasonal, 2010-05-[address] [facility] Family injectable injectable 00:00:00 Practice influenza, seasonal, influenza, seasonal, 2010-05-[address] [facility] Family injectable injectable 00:00:00 Practice influenza, seasonal, influenza, seasonal, 2010-05-[address] [facility] Family injectable injectable 00:00:00 Practice pneumococcal pneumococcal 2003-09-[address] [facility] Fa astrid polysaccharide PPV23 polysaccharide PPV23 00:00:00 Practice pneumococcal pneumococcal 2003-09-13 Completed [facility] astrid polysaccharide PPV23 polysaccharide PPV23 00:00:00 Practice pneumococcal pneumococcal 2003-09-[address] [facility] Fa astrid polysaccharide PPV23 polysaccharide PPV23 00:00:00 Practice pneumococcal pneumococcal 2003-09-13 Completed [facility] astrid polysaccharide PPV23 polysaccharide PPV23 00:00:00 Practice pneumococcal pneumococcal 2003-09-13 Completed [facility] astrid polysaccharide PPV23 polysaccharide PPV23 00:00:00 Practice pneumococcal pneumococcal 2003-09-13 Completed [facility] astrid polysaccharide PPV23 polysaccharide PPV23 00:00:00 Practice pneumococcal pneumococcal 2003-09-13 Completed [facility] astrid polysaccharide PPV23 polysaccharide PPV23 00:00:00 Practice pneumococcal pneumococcal 2003-09-13 Completed [facility] astrid polysaccharide PPV23 polysaccharide PPV23 00:00:00 Practice Vital Signs Vital Name Observation Time Observation Value Comments Source Body Weight 2023-01-28 00:00:00 357 [lb_av] [facility] Systolic blood 2023-01-13 07:00:00 111 mm[Hg] [facility] of pressure [facility] Diastolic blood 2023-01-13 07:00:00 46 mm[Hg] Unive rsity of pressure [facility] Heart rate 2023-01-13 07:00:00 65 /min [facility] Respiratory rate 2023-01-13 07:00:00 16 /min [facility] Oxygen saturation in 2023-01-13 07:00:00 95 /min [facility] Arterial blood by [facility] Pulse oximetry Branch Body temperature 2023-01-13 04:34:[address] [facility] Body height 2023-01-13 04:34:00 172.7 cm [facility] Body weight 2023-01-13 04:34:00 181.439 kg [facility] BMI 2023-01-13 04:34:00 60.82 kg/m2 [facility] Body Weight 2023-01-01 00:00:00 366 [lb_av] [facility] BP Diastolic 2022-11-27 00:00:00 70 mm[Hg] [facility] BP Systolic 2022-11-27 00:00:00 130 mm[Hg] [facility] Body Weight 2022-11-27 00:00:00 366 [lb_av] [facility] BP Diastolic 2022-07-28 00:00:00 65 mm[Hg] [facility] BP Systolic 2022-07-28 00:00:00 142 mm[Hg] [facility] BP Diastolic 2022-07-21 00:00:00 60 mm[Hg] [facility] BP Systolic 2022-07-21 00:00:00 139 mm[Hg] [facility] Body Weight 2022-07-21 00:00:00 375.6 [lb_av] [facility] BP Diastolic 2021-03-13 00:00:00 70 mm[Hg] [facility] Height 2021-03-13 00:00:00 65 [in_i] [facility] BMI (Body Mass 2021-03-13 00:00:00 [...] Family Practice Height 2019-05-05 00:00:00 65 [in_i] [facility] BMI (Body Mass 2019-05-05 00:00:00 61.4 kg/m2 [facility] e Family Index) Practice BP Systolic 2019-05-05 00:00:00 142 mm[Hg] [facility] Body Weight 2019-05-05 00:00:00 369 [lb_av] [facility] BP Diastolic 2019-03-27 00:00:00 73 mm[Hg] [facility] Height 2019-03-27 00:00:00 65 [in_i] [facility] BMI (Body Mass 2019-03-27 00:00:00 61.4 kg/m2 [facility] e Family Index) Practice BP Systolic 2019-03-27 00:00:00 152 mm[Hg] [facility] Body Weight 2019-03-27 00:00:00 369 [lb_av] [facility] BP Diastolic 2018-12-20 00:00:00 53 mm[Hg] [facility] Height 2018-12-20 00:00:00 65 [in_i] [facility] BP Systolic 2018-12-20 00:00:00 150 mm[Hg] [facility] Practice Systolic blood 2022-06-13 21:09:06 157 mm[Hg] [facility] pressure Diastolic blood 2022-06-13 21:09:06 80 mm[Hg] [facility] pressure Heart rate 2022-06-13 21:09:06 81 /min [facility] Body temperature 2022-06-13 21:09:06 37.11 Sarah [facility] Respiratory rate 2022-06-13 21:09:06 20 /min [facility] Oxygen saturation in 2022-06-13 21:09:06 92 /min [facility] Arterial blood by Pulse oximetry Body height 2022-06-12 16:19:00 167.6 cm [facility] Body weight 2022-06-12 16:19:00 164.202 kg [facility] BMI 2022-06-12 16:19:00 58.43 kg/m2 [facility] Diastolic (mm Hg) 2018-03-21 19:20[facility] 2018-03-21 19:20:00 [facility] [place] Weight 2018-03-21 19:20:00 [facility] [place] Height 2018-03-21 19:20:00 [facility] [place] Diastolic (mm Hg) 2017-09-09 15:10:00 [facility] Systolic (mm Hg) 2017-09-09 15:10:00 [facility] Weight 2017-09-09 15:10:00 [facility] [place] Height 2017-09-09 15:10:00 [facility] [place] Diastolic (mm Hg) 2017-06-30 20:40:00 [facility] Systolic (mm Hg) 2017-06-30 20:40:00 [facility] Weight 2017-06-30 20:40:00 [facility] Height 2017-06-30 20:40:00 [facility] Diastolic (mm Hg) 2017-02-24 19:40:00 [facility] Systolic (mm Hg) 2017-02-24 19:40:00 [facility] Weight 2017-02-24 19:40:00 [facility] [place] Height 2017-02-24 19:40:00 [facility] [place] Diastolic (mm Hg) 2016-12-16 20:10:00 [facility] Systolic (mm Hg) 2016-12-16 20:10:00 [facility] [place] Weight 2016-12-16 20:10:00 [facility] Height 2016-12-16 20:10:00 [facility] [place] Diastolic (mm Hg) 2016-08-17 21:00:00 [facility] [place] Systolic (mm Hg) 2016-08-17 21:00:00 [facility] [place] Weight 2016-08-17 21:00:00 [facility] Height 2016-08-17 21:00:00 [facility] Diastolic (mm Hg) 2016-07-15 19:30:00 [facility] [place] Systolic (mm Hg) 2016-07-15 19:30:00 [facility] [place] Weight 2016-07-15 19:30:00 [facility] [place] Height 2016-07-15 19:30:00 [facility] Diastolic (mm Hg) 2016-06-17 18:00:00 [facility] Systolic (mm Hg) 2016-06-17 18:00:00 [facility] Height 2016-06-17 18:00:00 [facility] Diastolic (mm Hg) 2016-02-19 20:00:00 [facility] Systolic (mm Hg) 2016-02-19 20:00:00 [facility] Weight 2016-02-19 20:00:00 [facility] Height 2016-02-19 20:00:00 [facility] [place] Diastolic (mm Hg) 2016-02-12 20:00:00 [facility] [place] Systolic (mm Hg) 2016-02-12 20:00:00 [facility] Weight 2016-02-12 20:00:00 [facility] [place] Height 2016-02-12 20:00:00 [facility] [place] Systolic (mm Hg) 2015-02-19 01:13:00 [facility] [place] Diastolic (mm Hg) 2015-02-19 01:13:00 [facility] [place] Temperature Oral (F) 2015-02-19 01:13:00 98.4 F [facility] Heart Rate 2015-02-19 01:13:00 [facility] [place] Respitory Rate 2015-02-19 01:13:00 [facility] Systolic (mm Hg) 2015-02-18 19:51:00 [facility] [place] Diastolic (mm Hg) 2015-02-18 19:51:00 [facility] [place] Respitory Rate 2015-02-18 19:51:00 [facility] [place] Heart Rate 2015-02-18 19:51:00 [facility] [place] Temperature Oral (F) 2015-02-18 19:51:00 98.1 F [facility] [place] Diastolic (mm Hg) 2014-05-08 19:00:00 [facility] Systolic (mm Hg) 2014-05-08 19:00:00 Wliliam masoudl [facility] Weight 2014-05-08 19:00:00 [facility] Height 2014-05-08 19:00:00 [facility] [place] Diastolic (mm Hg) 2014-01-08 21:00:00 [facility] [place] Systolic (mm Hg) 2014-01-08 21:00:00 [facility] Height 2014-01-08 21:00:00 [facility] Diastolic (mm Hg) 2013-12-06 20:00:00 [facility] [place] Systolic (mm Hg) 2013-12-06 20:00:00 [facility] Height 2013-12-06 20:00:00 [facility] [place] Diastolic (mm Hg) 2013-08-14 21:30:00 [facility] Systolic (mm Hg) 2013-08-14 21:30:00 [facility] Weight 2013-08-14 21:30:00 [facility] Height 2013-08-14 21:30:00 [facility] [place] Diastolic (mm Hg) 2013-05-23 21:00:00 [facility] Systolic (mm Hg) 2013-05-23 21:00:00 [facility] Weight 2013-05-23 21:00:00 [facility] [place] Height 2013-05-23 21:00:00 [facility] Diastolic (mm Hg) 2013-05-23 20:00:00 [facility] [place] Systolic (mm Hg) 2013-05-23 20:00:00 [facility] Weight 2013-05-23 20:00:00 [facility] Height 2013-05-23 20:00:00 [facility] [place] Diastolic (mm Hg) 2013-02-22 20:00:00 [facility] Systolic (mm Hg) 2013-02-22 20:00:00 [facility] Weight 2013-02-22 20:00:00 [facility] [place] Height 2013-02-22 20:00:00 [facility] [place] Diastolic (mm Hg) 2012-12-22 15:30:00 [facility] [place] Systolic (mm Hg) 2012-12-22 15:30:00 [facility] Weight 2012-12-22 15:30:00 [facility] Height 2012-12-22 15:30:00 [facility] Procedures Procedure Date / Time Performing Clinician Source Performed XR TOES 2 VW LEFT 2023-01-13 06:44:00 Criss Mckinney [facility] XR CHEST 1 VW 2023-01-13 06:43:00 Criss Mckinney [facility] URINALYSIS 2023-01-13 06:11:00 Criss Mckinney [facility] TROPONIN I 2023-01-13 05:49:00 Criss Mckinney [facility] COMP. METABOLIC PANEL 2023-01-13 05:49:00 Criss Mckinney [facility] ([id number]) [facility] CBC WITH DIFF 2023-01-13 05:49:00 Criss Mckinneyit y [facility] PROTHROMBIN TIME / INR 2023-01-13 05:49:00 Criss Mckinney [facility] ACTIVATED PARTIAL 2023-01-13 05:49:00 Criss Mckinney [facility] N-TERMINAL PRO-BNP 2023-01-13 05:49:00 Criss Mckinney [facility] MAMMO, diagnostic, 2022-07-22 00:00:00 Kalin F amily tomosynthesis, bilateral, Practi ce w/ CAD US, breast, bilateral 2022-07-22 00:00:00 [facility] MAM[facility], unilateral, left 2022-07-21 00:00:00 [facility] US, breast, left Practice POC GLUCOSE 2022-06-13 22:04:00 Moosavi, Man Kim [facility] POC GLUCOSE 2022-06-13 21:10:00 Moosavi, Man Kim [facility] POC GLUCOSE 2022-06-13 17:20:00 Moosavi, Manmelinda [facility] POC GLUCOSE 2022-06-13 12:41:00 Moosavi, Manmelinda Kinneyist [facility] COMPREHENSIVE METABOLIC 2022-06-13 08:50:00 [facility] PANEL CBC WITH PLATELET AND 2022-06-13 08:50:00 [facility] DIFFERENTIAL ESTIMATED GFR 2022-06-13 08:50:00 [facility] POC GLUCOSE 2022-06-13 01:12:00 Moosavi Manmelinda [facility] TROPONIN T 2022-06-12 22:48:00 Stephanie Saxena spital POC GLUCOSE 2022-06-12 21:05:00 Moosavi, Manmelinda Kim [facility] TROPONIN T 2022-06-12 19:50:00 Stephanie Saxena Ho spital CT THORACIC SPINE WO 2022-06-12 19:48:54 [facility] CONTRAST CT LUMBAR SPINE WO 2022-06-12 19:48:54 [facility] CONTRAST CT CHEST WO CONTRAST 2022-06-12 19:48:54 [facility] POC GLUCOSE 2022-06-12 19:48:00 Man Denise spital [facility] COVID-19 QUALITATIVE 2022-06-12 18:18:00 [facility] RT-PCR XR CHEST 1 VW PORTABLE 2022-06-12 17:45:00 [facility] ECG ED PRELIMINARY 2022-06-12 17:26:39 [facility] INTERPRETATION COMPREHENSIVE METABOLIC 2022-06-12 16:33:00 [facility] PANEL TROPONIN T 2022-06-12 16:33:00 [facility] B NATRIURETIC PEPTIDE 2022-06-12 16:33:00 [facility]IM[facility] GFR 2022-06-12 16:33:00 Ministerio Ortega spital CBC WITH PLATELET AND 2022-06-12 16:33:00 Hemanth [facility] DIFFERENTIAL ECG 12-LEAD 2022-06-12 16:28:25 Stephanie Saxena spital PTCA - Percutaneous [facility] transluminal coronary angioplasty Plan of Care Planned Activity Planned Date Details Comments Source Future Scheduled Test 2023-02-26 COVID-19 VACCINE (#1) [facility] 18:31:44 [code = COVID-19 VACCINE (#1)] Future Scheduled Test 2023-02-26 DIABETES: RETINAL EYE [facility] 18:31:44 EXAM [code = DIABETES: RETINAL EYE EXAM] Future Scheduled Test 2023-02-26 DIABETIC FOOT EXAM [facility] 18:31:44 [code = DIABETIC FOOT EXAM] Future Scheduled Test 2023-02-26 URINE MICROALBUMIN [facility] 18:31:44 [code = URINE MICROALBUMIN] Future Scheduled Test 2023-02-26 SHINGLES VACCINES (1 [facility] 18:31:44 of 2) [code = SHINGLES VACCINES (1 of 2)] Future Scheduled Test 2023-02-26 65+ PNEUMOCOCCAL [facility] 18:31:44 VACCINE (2 - PCV) [code = 65+ PNEUMOCOCCAL VACCINE (2 - PCV)] Future Scheduled Test 2023-02-26 INFLUENZA VACCINE [facility] 18:31:44 [code = INFLUENZA VACCINE] Diagnostic Test 2023-01-22 CMP, serum or plasma [...] Future Scheduled Test 2023-01-12 COVID-19 VACCINE (#1) [facility] 23:51:46 [code = COVID-19 VACCINE (#1)] Future Scheduled Test 2023-01-12 DIABETES: RETINAL EYE [facility] 23:51:46 EXAM [code = DIABETES: RETINAL EYE EXAM] Future Scheduled Test 2023-01-12 DIABETIC FOOT EXAM [facility] 23:51:46 [code = DIABETIC FOOT EXAM] Future Scheduled Test 2023-01-12 URINE MICROALBUMIN [facility] 23:51:46 [code = URINE MICROALBUMIN] Future Scheduled Test 2023-01-12 SHINGLES VACCINES (1 [facility] 23:51:46 of 2) [code = SHINGLES VACCINES (1 of 2)] Future Scheduled Test 2023-01-12 65+ PNEUMOCOCCAL [facility] 23:51:46 VACCINE (2 - PCV) [code = 65+ PNEUMOCOCCAL VACCINE (2 - PCV)] Future Scheduled Test 2023-01-12 INFLUENZA VACCINE [facility] 23:51:46 [code = INFLUENZA VACCINE] Future Appointment 2023-04-24 Sania Garciaeverardo Family 00:00:00 [address] [facility]; Practice [address], [place] [address] Instructions [facility] Practice Encounters Start End Encounter Admission Attending Care Care Encounter Source Date/Time Date/Time Type Type Clinicians Facility Department ID 2023-02-05 2023-02-05 Outpatient Franquiz_J VFP VFP [id number] [facility] 00:00:00 00:00:00 [id number] Family Practic e 2023-02-05 2023-02-05 Leroy VFP [place] - [id number] V illage 00:00:00 00:00:00 Kalin Penaloza Oliva bae MD: [id number] Medical [facility], _[address]Mem[address], [place] [address] , Ph. 2023-01-28 2023-01-28 Outpatient Franquiz_J VFP VFP [id number] [facility] 00:00:00 00:00:00 [id number] Family Practic e 2023-01-28 2023-01-28 Outpatient Franquiz_J VFP VFP [id number] [facility] 00:00:00 00:00:00 [id number] Family Practic e 2023-01-28 2023-01-28 Outpatient Franquiz_J VFP VFP [id number] [facility] 00:00:00 00:00:00 [id number] Family Practic e 2023-01-28 2023-01-28 Leroy VFP [place] - [id number] V illage 00:00:00 00:00:00 Ling Kalin bae MD: 9055 Medical [facility], [place] [address] , Ph. 2023-01-22 2023-01-22 Anna Nolan VFP [place] - [id number] 2 [facility] 00:00:00 00:00:[address] [facility] Velasquez barnesy PA: 9055 Medical - Pract ic [facility], _HOU[address], [place] [address] , Ph. 2023-01-12 2023-01-13 [facility] [id number] [facility] 23:35:00 05:21:00 , Criss CEJA [id number] [facility] [id number] [facility] [id number] [facility] [address] 2023-01-12 2023-01-13 [facility] ERT [id number] Univers 23:35:00 05:21:00 , CRISS [facility] 2023-01-13 2023-01-13 Outpatient Franquiz_J VFP VFP [id number] [id number] Village 00:00:00 00:00:00 [id number] Family Practic e 2023-01-13 2023-01-13 Outpatient Franquiz_J VFP VFP 1515 [id number] Village 00:00:00 00:00:00 [id number] Family Practic e 2023-01-09 2023-01-09 Outpatient Villasana_T VFP VFP 151 [id number] Village 00:00:00 00:00:00 _DNU 19352 Family Practic e 2023-01-09 2023-01-09 Outpatient Villasana_T VFP VFP 151 [id number] Village 00:00:00 00:00:00 _DNU 10766 Family Practic e 2023-01-09 2023-01-09 Outpatient Franquiz_J VFP VFP 1515 [id number] Village 00:00:00 00:00:00 [id number] Family Practic e 2023-01-09 2023-01-09 Outpatient Franquiz_J VFP VFP 1515 [id number] Village 00:00:00 00:00:00 [id number] Family Practic e 2023-01-09 2023-01-09 Outpatient Villasana_T VFP VFP 151 [id number] Village 00:00:00 00:00:00 _DNU 31403 Family Practic e 2023-01-09 2023-01-09 Outpatient Villasana_T VFP VFP 151 [id number] Village 00:00:00 00:00:00 _DNU 59621 Family Practic e 2023-01-09 2023-01-09 Outpatient Villasana_T VFP VFP 151 [id number] Village 00:00:00 00:00:00 _DNU 86716 Family Practic e 2023-01-09 2023-01-09 Outpatient Villasana_T VFP VFP 151 [id number] Village 00:00:00 00:00:00 _DNU 30965 Family Practic e 2023-01-01 2023-01-01 Leroy VFP [place] - [id number] V illage 00:00:00 00:00:00 Kalin Penaloza MD: 9055 Medical - Pract [facility], [facility] [address], [place] [address] , Ph. 2022-12-22 2022-12-22 Outpatient Franquiz_J VFP VFP 1515 [id number] [facility] 00:00:00 00:00:00 [id number] Family Practic e 2022-12-22 2022-12-22 Outpatient Villasana_T VFP VFP [id number] [facility] 00:00:00 00:00:00 _DNU 05335 Family Practic e 2022-12-22 2022-12-22 Outpatient Franquiz_J VFP VFP [id number] [facility] 00:00:00 00:00:00 [id number] Family Practic e 2022-12-22 2022-12-22 Outpatient Villasana_T VFP VFP 151 [id number] [facility] 00:00:00 00:00:00 _DNU 60046 Family Practic e 2022-12-08 2022-12-08 Outpatient Franquiz_J VFP VFP 1515 [id number] [facility] 00:00:00 00:00:00 [id number] Family Practic e 2022-12-08 2022-12-08 Outpatient Villasana_T VFP VFP 151 [id number] [facility] 00:00:00 00:00:00 _DNU 90106 Family Practic e 2022-11-27 2022-11-27 Outpatient Franquiz_J VFP VFP 1515 [id number] [facility] 00:00:00 00:00:00 [id number] Family Practic e 2022-11-27 2022-11-27 Leroy VFP [place] - [id number] V illage 00:00:00 00:00:00 Kalin Penaloza MD: 9055 Medical - Pract [facility], _[facility] [address], [place] [address] , Ph. 2022-11-25 2022-11-25 Outpatient Franquiz_J VFP VFP [id number] [facility] 00:00:00 00:00:00 [id number] Family Practic e 2022-10-26 2022-10-26 Outpatient Bernstein_H VFP VFP 151 [id number] [facility] 00:00:00 00:00:00 [id number] Family Practic e 2022-10-23 2022-10-23 Outpatient Bernstein_H VFP VFP 151 [id number] [facility] 00:00:00 00:00:00 [id number] Family Practic e 2022-08-04 2022-08-04 Outpatient Villasana_T VFP VFP [id number] [facility] 00:00:00 00:00:00 _DNU 47815 Family Practic e 2022-07-28 2022-07-28 Anna B VFP [place] - [id number] [facility] 00:00:00 00:00:00 [facility] 9055 Medical - Pract Jania [facility], [address] [address] , Ph. 2022-07-27 2022-07-27 Outpatient Bernstein_H VFP VFP [id number] [facility] 00:00:00 00:00:00 [id number] Family Practic e 2022-07-21 2022-07-21 Outpatient Villasana_T VFP VFP [id number] [facility] 00:00:00 00:00:00 _DNU 27612 Family Practic e 2022-07-21 2022-07-21 Azul VFP [place] - [id number] V illage 00:00:00 00:00:00 MD Fanta: [facility] [address] [address], [facility] [address] , Ph. 2022-06-12 2022-06-13 Emergency Darío Harris [id number] Methodi 11:16:00 19:43:[address]010[address]1.[address] 3.430.2.7 Hospit a .3.963205 l .8 2022-06-12 2022-06-13 Emergency Darío Harris 1.2.840.1 [id number] [facility] 11:16:00 19:43:[address] Man Den[address]1101.1.[address] 3.430.2.7 Hospit a .3.408294 l .8 2022-02-26 2022-02-26 Outpatient NAKIA [facility] 7522 [facility] 12:56:00 23:59:00 MICHELLE oviedo 2022-01-11 2022-01-12 Outpatient E GREGLuiz KAREN [facility] MED 7521 [facility] 01:30:00 12:00:00 ivelisse oviedo 2022-01-06 2022-01-06 Outpatient Villasana_T VFP VFP 151 [id number] [facility] 00:00:00 00:00:00 _DNU 49339 Family Practic e 2021-08-07 2021-08-07 Outpatient Bernstein_H VFP VFP 151 [id number] [facility] 11:47:00 11:47:00 07455 Family Practic e 2021-08-07 2021-08-07 Outpatient Bernstein_H VFP VFP 151 [id number] [facility] 11:47:00 11:47:00 01763 Family Practic e 2021-08-07 2021-08-07 Outpatient Bernstein_H VFP VFP 151 [id number] [facility] 11:47:00 11:47:00 13535 Family Practic e 2021-08-07 2021-08-07 Outpatient Bernstein_H VFP VFP 151 [id number] [facility] 00:00:00 00:00:00 [id number] Family Practic e 2021-07-04 2021-07-04 Outpatient Bernstein_H VFP VFP 151 [id number] [facility] 03:00:00 03:00:00 10898 Family Practic e 2021-07-04 2021-07-04 Outpatient Villasana_T VFP VFP 151 [id number] [facility] 00:00:00 00:00:00 _VMS 16140 Family Practic e 2021-06-24 2021-06-24 Outpatient Bernstein_H VFP VFP 151 [id number] [facility] 01:58:00 01:58:00 16443 Family Practic e 2021-06-24 2021-06-24 Anna B VFP [place] - [id number] 2 [facility] 00:00:00 00:00:00 Kalin Caballero [facility] aissatou PA: 9055 Medical - Pract ic Jania GU_HOU_Memo e [facility] [address], [place] [address] , Ph. 2021-06-23 2021-06-23 Outpatient Bernstein_H VFP VFP 151 [id number] [facility] 02:37:00 02:37:00 76872 Family Practic e 2021-04-29 2021-04-29 Outpatient Villasana_T VFP VFP 151 [id number] [facility] 08:39:00 08:39:00 _VMS 81875 Family Practic e 2021-03-19 2021-03-19 Outpatient Bernstein_H VFP VFP 151 [id number] [facility] 01:55:00 01:55:00 69416 Family Practic e 2021-03-19 2021-03-19 Outpatient Villasana_T VFP VFP 151 [id number] [facility] 01:55:00 01:55:00 _VMS 02802 Family Practic e 2021-03-13 2021-03-13 Outpatient Villasana_T VFP VFP 151 [id number] [facility] 01:38:00 01:38:00 96442 Family Practic e 2021-03-13 2021-03-13 Anna B VFP [place] - [id number] [facility] 00:00:00 00:00:00 Kalin Caballero [facility] aissatou PA: 9055 Medical - Pract ic Jania GU_BRANDONU_Memo e [facility] ([facility]) [address], [place] [address] , Ph. 2021-02-05 2021-02-05 Outpatient Villasana_T VFP VFP 151 [id number] [facility] 08:24:00 08:24:00 [id number] Family Practic e 2021-02-05 2021-02-05 Outpatient Bernstein_H VFP VFP 151 [id number] [facility] 08:24:00 08:24:00 [id number] Family Practic e 2021-02-04 2021-02-04 Outpatient Federico_T VFP VFP 151 [id number] [facility] 11:54:00 11:54:00 36036 Family Practic e 2021-02-04 2021-02-04 Anna B VFP [place] - [id number] [facility] 00:00:00 00:00:00 Federico, Kalin reyez PA: 9055 Medical - Pract ic Jania GU_[facility] e [facility] ([facility]) [address], [place] [address] , Ph. 2020-10-28 2020-10-28 Outpatient Bernstein_H VFP VFP 151 [id number] [facility] 12:57:00 12:57:00 23706 Family Practic e 2020-10-28 2020-10-28 Outpatient Bernstein_H VFP VFP 151 [id number] [facility] 12:57:00 12:57:00 59779 Family Practic e 2020-10-28 2020-10-28 Outpatient Bernstein_H VFP VFP 151 [id number] [facility] 12:57:00 12:57:00 17218 Family Practic e 2020-10-16 2020-10-16 Outpatient Bernstein_H VFP VFP 151 [id number] [facility] 12:05:00 12:05:00 66969 Family Practic e 2020-09-25 2020-09-25 [facility] [id number] [address] [place] [address] 00:00:00 00:00:[address] DES [address] 2020-07-16 2020-07-16 Outpatient Abreu_A VFP VFP [id number] [facility] 10:18:00 10:18:00 [id number] Family Practic e 2020-07-16 2020-07-16 Outpatient Abreu_A VFP VFP [id number] [facility] 10:18:00 10:18:00 22895 Family Practic e 2020-07-05 2020-07-05 Outpatient Abreu_A VFP VFP [id number] [facility] 10:35:00 10:35:00 25654 Family Practic e 2020-07-04 2020-07-04 Outpatient Villasana_T VFP VFP 151 [id number] [facility] 02:46:00 02:46:00 [id number] Family Practic e 2020-07-04 2020-07-04 Anna B VFP [place] - [id number] 2 [facility] 00:00:00 00:00:00 [facility] 9055 Medical - Pract ic Jania VM_HOU_Memo e [facility] ([facility]) [address] [address] , Ph. 2020-06-11 2020-06-11 Outpatient Abreu_A VFP VFP [id number] [facility] 08:19:00 08:19:00 26015 Family Practic e 2020-06-11 2020-06-11 Outpatient Abreu_A VFP VFP [id number] [facility] 08:19:00 08:19:00 [id number] Family Practic e 2020-06-11 2020-06-11 Outpatient Abreu_A VFP VFP [id number] [facility] 08:19:00 08:19:00 [id number] Family Practic e 2020-06-11 2020-06-11 Outpatient Abreu_A VFP VFP [id number] [facility] 08:19:00 08:19:00 [id number] Family Practic e 2020-06-04 2020-06-04 Outpatient Villasana_T VFP VFP 151 [id number] [facility] 01:12:00 01:12:00 29204 Family Practic e 2020-06-04 2020-06-04 Anna B VFP [place] - [id number] [address] [place] [address] 00:00:00 00:00:00 [facility] PA: 9055 Medical - Pract ic Jania VM_HOU_Memo e [facility] ([facility]) [address], [place] [address] , Ph. 2020-05-30 2020-05-30 Outpatient Abreu_A VFP VFP [id number] [facility] 03:20:00 03:20:00 41609 Family Practic e 2020-05-30 2020-05-30 Outpatient Villasana_T VFP VFP 151 [id number] [facility] 03:20:00 03:20:00 [id number] Family Practic e 2020-05-30 2020-05-30 Outpatient Abreu_A VFP VFP [id number] [facility] 03:20:00 03:20:00 [id number] Family Practic e 2020-04-26 2020-04-26 Outpatient Villasana_T VFP VFP 151 [id number] [facility] 11:23:00 11:23:00 [id number] Family Practic e 2020-04-26 2020-04-26 Outpatient Abreu_A VFP VFP [id number] [facility] 11:23:00 11:23:00 [id number] Family Practic e 2020-04-23 2020-04-23 Outpatient Villasana_T VFP VFP 151 [id number] [facility] 11:41:00 11:41:00 02583 Family Practic e 2020-04-23 2020-04-23 Anna B VFP [place] - [id number] [address] [place] [address] 00:00:00 00:00:[address] [facility] Velasquez reyez PA: 9055 Medical - Pract leni Dykes _marta Shah ([facility]) [address], [place] [address] , Ph. 2020-04-12 2020-04-12 Outpatient [facility]AV[facility] [id number] [place] 00:00:00 00:00:[address] 2020-04-12 2020-04-12 Outpatient ODHAV, PETE [facility] [id number] [place] 00:00:00 00:00:[address] 2020-04-11 2020-04-11 Outpatient ODHAV, PETE [facility] [id number] [place] 00:00:00 00:00:[address] 2020-04-11 2020-04-11 Outpatient ODHAV, PETE [facility] [id number] [place] 00:00:00 00:00:[address] 2020-02-07 2020-02-07 Outpatient Abreu_A VFP VFP [id number] [facility] 04:55:00 04:55:00 [id number] Family Practic e 2020-02-07 2020-02-07 Outpatient Abreu_A VFP VFP [id number] [facility] 04:55:00 04:55:00 [id number] Family Practic e 2020-02-07 2020-02-07 Outpatient Abreu_A VFP VFP [id number] [facility] 04:55:00 04:55:00 [id number] Family Practic e 2020-01-24 2020-01-24 Outpatient Villasana_T VFP VFP 151 [id number] [facility] 11:17:00 11:17:00 [id number] Family Practic e 2020-01-24 2020-01-24 Anna B VFP [place] - [id number] [address] [place] [address] 00:00:00 00:00:00 Federico, [facility] Velasquez reyez PA: 9055 Medical - Pract ic Jania VM_HOU_Memo e [facility], [facility] ([facility]) [address], [place] [address] , Ph. 2020-01-23 2020-01-23 Outpatient Villasana_T VFP VFP 151 [id number] [facility] 02:20:00 02:20:00 [id number] Family Practic e 2019-10-17 2019-10-18 [facility] [id number] [place] 00:00:00 00:00:00 EARL [address] 2019-09-30 2019-09-30 Emergency ARMREDFORD, [facility] [id number] [place] 00:00:00 00:00:[address] 2019-07-19 2019-07-19 Outpatient Abreu_A VFP P [id number] [facility] 09:32:00 09:32:00 25602 Family Practic e 2019-06-20 2019-06-20 Anna B VFP [place] - [id number] [facility] 00:00:00 00:00:00 Federico, [facility] Velasquez aissatou PA: 9055 Family Practic Jania [address], [facility] [address], [place] [address] , Ph. 2019-05-26 2019-05-26 Anna B VFP [place] - [id number] 3 [facility] 00:00:00 00:00:[address] [facility] Velasquez reyez PA: 9055 Family Practic Jania [address], [facility] [address], [place] [address] , Ph. 2019-05-05 2019-05-05 Anna Nolan [facility] [place] - [id number] 3 [place] 00:00:00 00:00:00 Federico, [facility] Velasquez reyez PA: 9055 Family Practic Jania [address], [facility] [address], [place] [address] , Ph. 2019-03-27 2019-03-27 Anna Nolan [facility] [place] - [id number] 5 [place] 00:00:00 00:00:00 Federico, [facility] Velasquez reyez PA: 9055 Family Practic Jania [address], [facility] [address], [place] [address] , Ph. 2018-12-20 2018-12-20 Anna Nolan [facility] [place] - [id number] 9 [facility] 00:00:00 00:00:00 Federico, [facility] aissatou PA: 9055 Family Practic Jania Practice - [address], [facility] [address], [place] [address] , Ph. 2018-08-10 2018-08-10 Outpatient Comprehen Comprehensi [id number] eClinic 14:54:00 14:54:00 sive ve [facility] 2018-08-10 2018-08-10 Outpatient Comprehen Comprehensi 7 [id number] eClinic 14:54:00 14:54:00 sive ve [facility]n [facility] 2018-03-21 2018-03-21 Outpatient Comprehen Comprehensi 6 [id number] eClinic 14:20:00 14:20:00 sive ve [facility]Wor tn [facility] 2018-03-21 2018-03-21 Outpatient Comprehen Comprehensi 6 [id number] eClinic 14:20:00 14:20:00 sive ve [facility] 2017-10-25 2017-10-25 Outpatient Comprehen Comprehensi 6 [id number] eClinic 15:50:00 15:50:00 sive ve [facility]n [facility] 2017-10-25 2017-10-25 Outpatient Comprehen Comprehensi 6 [id number] eClinic 15:50:00 15:50:00 sive ve [facility] 2017-09-09 2017-09-09 Outpatient Comprehen Comprehensi 6 [id number] eClinic 09:10:00 09:10:00 sive ve [facility]or [facility]n [facility] Care 2017-09-09 2017-09-09 Outpatient Comprehen Comprehensi 6 [id number] eClinic 09:10:00 09:10:00 sive ve [facility]n [facility] Care 2017-09-08 2017-09-08 Outpatient Comprehen Comprehensi 6 [id number] eClinic 15:19:00 15:19:00 sive ve [facility]Wor tn [facility] Care 2017-09-08 2017-09-08 Outpatient Comprehen Comprehensi 6 [id number] eClinic 15:19:00 15:19:00 sive ve [facility]Wor tn [facility] Care 2017-07-15 2017-07-15 Outpatient Comprehen Comprehensi 6 [id number] eClinic 15:21:00 15:21:00 sive ve [facility]Wor tn [facility] Care 2017-07-15 2017-07-15 Outpatient Comprehen Comprehensi 6 [id number] eClinic 15:21:00 15:21:00 sive ve [facility]Wor tn [facility] Care 2017-07-15 2017-07-15 Outpatient Comprehen Comprehensi 6 [id number] eClinic 14:59:00 14:59:00 sive ve [facility] alWor tn [facility] Care 2017-07-15 2017-07-15 Outpatient Comprehen Comprehensi 6 [id number] eClinic 14:59:00 14:59:00 sive ve [facility]n [facility] Care 2017-07-02 2017-07-02 Outpatient Comprehen Comprehensi 6 [id number] eClinic 09:57:00 09:57:00 sive ve [facility] alWor tn [facility] Care 2017-07-02 2017-07-02 Outpatient Comprehen Comprehensi 6 [id number] eClinic 09:57:00 09:57:00 sive ve [facility]Wor tn [facility] Care 2017-06-30 2017-06-30 Outpatient Comprehen Comprehensi 5 [id number] eClinic 14:40:00 14:40:00 sive ve [facility] alWor [facility]n [facility] Care 2017-06-30 2017-06-30 Outpatient Comprehen Comprehensi 5 [id number] eClinic 14:40:00 14:40:00 sive ve [facility] alWor tn [facility] Care 2017-06-29 2017-06-29 Outpatient Comprehen Comprehensi 6 [id number] eClinic 17:48:00 17:48:00 sive ve Heart alWor tn [facility] Care Care 2017-06-29 2017-06-29 Outpatient Comprehen Comprehensi [id number] eClinic 17:48:00 17:48:00 sive ve [facility] alWor tn [facility] Care 2017-06-09 2017-06-09 Outpatient Comprehen Comprehensi 6 [id number] eClinic 15:39:00 15:39:00 sive ve Heart alWor tn [facility] Care 2017-06-09 2017-06-09 Outpatient Comprehen Comprehensi 6 [id number] eClinic 15:39:00 15:39:00 sive ve [facility] alWor tn [facility] Care 2017-02-24 2017-02-24 Outpatient Comprehen Comprehensi 5 [id number] eClinic 14:40:00 14:40:00 sive ve [facility] 2017-02-24 2017-02-24 Outpatient Comprehen Comprehensi 5 [id number] eClinic 14:40:00 14:40:00 sive ve Heart alWor tn [facility] Care 2017-02-23 2017-02-23 Outpatient Comprehen Comprehensi 5 [id number] eClinic 15:47:00 15:47:00 sive ve Heart alWor tn [facility] Care 2017-02-23 2017-02-23 Outpatient Comprehen Comprehensi 5 [id number] eClinic 15:47:00 15:47:00 sive ve [facility] 2017-01-27 2017-01-27 Outpatient Comprehen Comprehensi 5 [id number] eClinic 11:02:00 11:02:00 sive ve [facility] alWor [facility]n [facility] Care 2017-01-27 2017-01-27 Outpatient Comprehen Comprehensi 5 [id number] eClinic 11:02:00 11:02:00 sive ve [facility]Wor tn [facility] 2017-01-04 2017-01-04 Outpatient Comprehen Comprehensi 5 [id number] eClinic 14:15:00 14:15:00 sive ve [facility]or tn [facility] 2017-01-04 2017-01-04 Outpatient Comprehen Comprehensi 5 [id number] eClinic 14:15:00 14:15:00 sive ve [facility]n [facility] 2016-12-23 2016-12-23 Outpatient Comprehen Comprehensi 5 [id number] eClinic 10:54:00 10:54:00 sive ve [facility]or [facility]n [facility] 2016-12-23 2016-12-23 Outpatient Comprehen Comprehensi 5 [id number] eClinic 10:54:00 10:54:00 sive ve [facility]Wor tn [facility] 2016-12-22 2016-12-22 Outpatient Comprehen Comprehensi 5 [id number] eClinic 10:40:00 10:40:00 [facility] 2016-12-22 2016-12-22 Outpatient Comprehen Comprehensi 5 [id number] eClinic 10:40:00 10:40:00 [facility] 2016-12-16 2016-12-16 Outpatient Comprehen Comprehensi 5 [id number] eClinic 15:10:00 15:10:00 [facility] 2016-12-16 2016-12-16 Outpatient Comprehen Comprehensi 5 [id number] eClinic 15:10:00 15:10:00 [facility] 2016-12-15 2016-12-15 Outpatient Comprehen Comprehensi 5 [id number] eClinic 15:54:00 15:54:00 [facility] 2016-12-15 2016-12-15 Outpatient Comprehen Comprehensi 5 [id number] eClinic 15:54:00 15:54:00 [facility] 2016-10-01 2016-10-01 lab slip nullFlavo Comprehensi 2e5 [id number] [facility] 17:50:00 17:50:00 for lipid r ve Heart [id number] l panel Care PA [id number] Haylee nn [id number] 2016-10-01 2016-10-01 lab slip nullFlavo Comprehensi 2e5 [id number] [facility] 17:50:00 17:50:00 for lipid r ve Heart [phone] l panel Care PA [id number] Haylee nn [id number] 2016-10-01 2016-10-01 lab slip nullFlavo Comprehensi 2e5 [id number] [facility] 17:50:00 17:50:00 for lipid r ve Heart [phone] l panel Care [place] [id number] Haylee nn [id number] 2016-10-01 2016-10-01 Outpatient Comprehen Comprehensi 5 [id number] eClinic 11:50:00 11:50:[facility] [place] 2016-10-01 2016-10-01 Outpatient Comprehen Comprehensi 5 [id number] e[facility]inic 11:50:00 11:50:00 [facility] [place] [facility] [place] 2016-09-29 2016-09-29 refill for nullFlavo Comprehensi 4 [id number] [facility] 21:09:00 21:09:00 [facility] 146-4180-b l [address] [facility] [address] [place] nn express 2b1a11 scripts 2016-09-29 2016-09-29 refill for nullFlavo Comprehensi 8 0w371l0-8 [facility] 21:09:00 21:09:00 [facility] 203-426e-a l [place] to [facility] [place] 243-a26ac7 [facility] nn express 9653e4 scripts 2016-09-29 2016-09-29 refill for nullFlavo Comprehensi 4 063v117-0 [facility] 21:09:00 21:09:00 Praulent r ve [facility] 146-4180-b l [address] [facility] [address]b [place] nn express 2b1a11 scripts 2016-09-29 2016-09-29 refill for nullFlavo Comprehensi 8 [id number] [facility] 21:09:00 21:09:00 Praulent r ve Heart 203-426e-a l sent to [facility] [place] 243-a26ac7 [facility] nn express 9653e4 scripts 2016-09-29 2016-09-29 refill for nullFlavo Comprehensi 4 862r794-7 [facility] 21:09:00 21:09:00 Praulent r ve Heart 146-4180-b l [address] [facility] [address]qk[address]p [place] nn express 2b1a11 scripts 2016-09-29 2016-09-29 refill for nullFlavo Comprehensi 8 8g830s1-8 [facility] 21:09:00 21:09:00 Praulent r ve Heart 203-426e-a l sent to [facility] [place] 243-a26ac7 [facility] nn express 9653e4 scripts 2016-09-29 2016-09-29 Outpatient Comprehen Comprehensi 5 [id number] eClinic 15:09:00 15:09:00 sive ve Heart alWor tn Heart Care PA Care PA 2016-09-29 2016-09-29 Outpatient Comprehen Comprehensi 5 70093 eClinic 15:09:00 15:09:00 sive ve Heart alWor tn Heart Care PA Care PA 2016-09-21 2016-09-21 message nullFlavo Comprehensi ec27 b4a0-5 [facility] 23:06:00 23:06:00 r ve Heart 872-4150-8 l Care PA ca0-807c0c Haylee nn 834e20 2016-09-21 2016-09-21 message nullFlavo Comprehensi 21fc a427-a [facility] 23:06:00 23:06:00 r ve Heart 2b8-90pm-9 l Care PA 291-0a6fde Haylee nn 3dfa6d 2016-09-21 2016-09-21 message nullFlavo Comprehensi 96e8 da48-4 [facility] 23:06:00 23:06:00 r ve Heart 528-4b66-b l Care PA 7bc-2c8d35 Haylee nn b9cd2e 2016-09-21 2016-09-21 message nullFlavo Comprehensi ec27 b4a0-5 [facility] 23:06:00 23:06:00 r ve Heart 872-4150-8 l Care PA ca0-807c0c Haylee nn 834e20 2016-09-21 2016-09-21 message nullFlavo Comprehensi 96e8 da48-4 [facility] 23:06:00 23:06:00 r ve Heart 528-4b66-b l Care PA 7bc-2c8d35 Haylee nn b9cd2e 2016-09-21 2016-09-21 message nullFlavo Comprehensi 21fc a427-a [facility] 23:06:00 23:06:00 r ve Heart 6l1-49ce-2 l Care PA 291-0a6fde Haylee nn 3dfa6d 2016-09-21 2016-09-21 message nullFlavo Comprehensi ec27 b4a0-5 [facility] 23:06:00 23:06:00 r ve Heart 872-4150-8 l Care PA ca0-807c0c Haylee nn 834e20 2016-09-21 2016-09-21 message nullFlavo Comprehensi 21fc a427-a [facility] 23:06:00 23:06:00 r ve Heart 0v5-02hn-0 l Care PA 291-0a6fde Haylee nn 3dfa6d 2016-09-21 2016-09-21 message nullFlavo Comprehensi 96e8 da48-4 [facility] 23:06:00 23:06:00 r ve Heart 528-4b66-b l Care PA 7bc-2c8d35 Haylee nn b9cd2e 2016-09-21 2016-09-21 Outpatient Comprehen Comprehensi 5 23719 eClinic 17:06:00 17:06:00 sive ve Heart alWor tn Heart Care PA Care PA 2016-09-21 2016-09-21 Outpatient Comprehen Comprehensi 5 40650 eClinic 17:06:00 17:06:00 sive ve Heart alWor tn Heart Care PA Care PA 2016-09-09 2016-09-09 Unknown nullFlavo Comprehensi 1264 d830-2 [facility] 13:57:00 13:57:00 r ve Heart 751-4316-a l Care PA d85-01r56x Haylee nn 1c00d1 2016-09-09 2016-09-09 Unknown nullFlavo Comprehensi 505b 96eb-a [facility] 13:57:00 13:57:00 r ve Heart 8i3-1xax-3 l Care PA 1cd-1a26f0 Haylee nn 7c24a3 2016-09-09 2016-09-09 Unknown nullFlavo Comprehensi 944d 69ea-9 [facility] 13:57:00 13:57:00 r ve Heart 4y0-3m4o-p l Care PA m76-67ij4g Haylee nn 1edaa0 2016-09-09 2016-09-09 Unknown nullFlavo Comprehensi 1c2e 55dc-c [facility] 13:57:00 13:57:00 r ve Heart 72f-4b17-9 l Care PA k42-4g30rv Haylee nn b0ce15 2016-09-09 2016-09-09 Unknown nullFlavo Comprehensi 240a f2f8-5 [facility] 13:57:00 13:57:00 r ve Heart 4a7-17v0-c l Care PA 648-fb6b40 [facility] nn 320237 8496-12-28 2016-09-09 Unknown nullFlavo Comprehensi 505b 96eb-a [facility] 13:57:00 13:57:00 r ve Heart 9b4-0ocz-1 l Care PA 1cd-1a26f0 [facility] nn 7c24a3 2016-09-09 2016-09-09 Unknown nullFlavo Comprehensi 240a f2f8-5 [facility] 13:57:00 13:57:00 r ve Heart 2t4-28w3-k l Care PA 648-fb6b40 [facility] nn 339001 9204-12-28 2016-09-09 Unknown nullFlavo Comprehensi 1264 d830-2 [facility] 13:57:00 13:57:00 r ve Heart 751-4316-a l Care PA b91-57l68f [facility] nn 1c00d1 2016-09-09 2016-09-09 Unknown nullFlavo Comprehensi 1c2e 55dc-c [facility] 13:57:00 13:57:00 r ve Heart 72f-4b17-9 l Care PA y18-9w38me [facility] nn b0ce15 2016-09-09 2016-09-09 Unknown nullFlavo Comprehensi 944d 69ea-9 [facility] 13:57:00 13:57:00 r ve Heart 0c1-7a6t-m l Care PA r79-04mz6k [facility] nn 1edaa0 2016-09-09 2016-09-09 Unknown nullFlavo Comprehensi 1264 d830-2 [facility] 13:57:00 13:57:00 r ve Heart 751-4316-a l Care PA c52-04t41e [facility] nn 1c00d1 2016-09-09 2016-09-09 Unknown nullFlavo Comprehensi 505b 96eb-a [facility] 13:57:00 13:57:00 r ve Heart 7m7-3brt-6 l Care PA 1cd-1a26f0 [place]lee nn 7c24a3 2016-09-09 2016-09-09 Unknown nullFlavo Comprehensi 944d 69ea-9 [facility] 13:57:00 13:57:00 r ve Heart 7x1-4f4g-l l Care PA o22-80kw6i Haylee nn 1edaa0 2016-09-09 2016-09-09 Unknown nullFlavo Comprehensi 1c2e 55dc-c [facility] 13:57:00 13:57:00 r ve Heart 72f-4b17-9 l Care PA g01-8h27gl Haylee nn b0ce15 2016-09-09 2016-09-09 Unknown nullFlavo Comprehensi 240a f2f8-5 [facility] 13:57:00 13:57:00 r ve Heart 1q1-05p8-h l Care PA 648-fb6b40 Haylee nn 355083 5679-12-28 2016-09-09 Outpatient Comprehen Comprehensi 5 [id number] eClinic 07:57:00 07:57:00 sive ve Heart alWor tn Heart Care PA Care PA 2016-09-09 2016-09-09 Outpatient Comprehen Comprehensi 5 75170 eClinic 07:57:00 07:57:00 sive ve Heart alWor tn Heart Care PA Care PA 2016-08-17 2016-08-17 Unknown nullFlavo Comprehensi 931f bc7f-6 [facility] 21:00:00 21:00:00 r ve Heart 580-4f75-b l Care PA 18a-eab1ef Haylee nn 77d8ed 2016-08-17 2016-08-17 Unknown nullFlavo Comprehensi f9d9 f906-3 [facility] 21:00:00 21:00:00 r ve Heart n79-2643-u l Care PA 28b-a3ace5 Haylee nn 447788 1408-12-05 2016-08-17 Unknown nullFlavo Comprehensi 3d98 abd1-d [facility] 21:00:00 21:00:00 r ve Heart 845-422c-a l Care PA 72b-3f8e58 [facility] e158be 2016-08-17 2016-08-17 Unknown nullFlavo Comprehensi a315 8e21-e [facility] 21:00:00 21:00:00 r ve Heart 880-488d-b l Care PA 7bf-26g223 [facility] e93f32 2016-08-17 2016-08-17 Unknown nullFlavo Comprehensi a315 8e21-e [facility] 21:00:00 21:00:00 r ve Heart 880-488d-b l Care PA 7bf-48j970 [facility] e93f32 2016-08-17 2016-08-17 Unknown nullFlavo Comprehensi 931f bc7f-6 [facility] 21:00:00 21:00:00 r ve Heart 580-4f75-b l Care PA 18a-eab1ef [facility] 77d8ed 2016-08-17 2016-08-17 Unknown nullFlavo Comprehensi 3d98 abd1-d [facility] 21:00:00 21:00:00 r ve Heart 845-422c-a l Care PA 72b-3f8e58 [facility] e158be 2016-08-17 2016-08-17 Unknown nullFlavo Comprehensi f9d9 f906-3 [facility] 21:00:00 21:00:00 r ve Heart a67-4660-y l Care PA 28b-a3ace5 [facility] 314884 7680-12-05 2016-08-17 Unknown nullFlavo Comprehensi 931f bc7f-6 [facility] 21:00:00 21:00:00 r ve Heart 580-4f75-b l Care PA 18a-eab1ef [facility] 77d8ed 2016-08-17 2016-08-17 Unknown nullFlavo Comprehensi f9d9 f906-3 [facility] 21:00:00 21:00:00 r ve Heart c70-3882-n l Care PA 28b-a3ace5 [facility] 451797 3669-12-05 2016-08-17 Unknown nullFlavo Comprehensi 3d98 abd1-d [facility] 21:00:00 21:00:00 r ve Heart 845-422c-a l Care PA 72b-3f8e58 [facility] e158be 2016-08-17 2016-08-17 Unknown nullFlavo Comprehensi a315 8e21-e [facility] 21:00:00 21:00:00 r ve Heart 880-488d-b l Care PA 7bf-74i272 [facility] nn e93f32 2016-08-17 2016-08-17 Outpatient Comprehen Comprehensi 5 [id number] eClinic 15:00:00 15:00:00 sive ve Heart alWor tn Heart Care PA Care PA 2016-08-17 2016-08-17 Outpatient Comprehen Comprehensi 5 77577 eClinic 15:00:00 15:00:00 sive ve Heart alWor tn Heart Care PA Care PA 2016-08-13 2016-08-132015 nullFlavo Comprehensi 6b6c 45d1-a [facility] 23:33:00 23:33:00 MEDICARE r ve Heart t7p-0m00-7 l Care PA 6v8-t2u555 [facility] nn 43b0d6 2016-08-13 2016-08-132015 nullFlavo Comprehensi 6f9d 1f79-1 [facility] 23:33:00 23:33:00 MEDICARE r ve Heart 103-463c-8 l Care PA 7u3-4452vl [facility] nn 70681v 2016-08-13 2016-08-132015 nullFlavo Comprehensi f618 7811-4 [facility] 23:33:00 23:33:00 MEDICARE r ve Heart 4d8-6c43-y l Care PA 401-fzr175 [facility] nn 4o2334 2016-08-13 2016-08-13 2016 nullFlavo Comprehensi f670 13c0-8 [facility] 23:33:00 23:33:00 MEDICARE r ve Heart 8s5-9215-5 l Care PA x63-91gb39 [facility] nn 131798 7509-12-01 2016-08-132015 nullFlavo Comprehensi c174 612c-1 [facility] 23:33:00 23:33:00 MEDICARE r ve Heart 59a-4796-a l Care PA [id number]-[id number] [facility] nn 22362g 2016-08-13 2016-08-132015 nullFlavo Comprehensi a51d d5d9-b [facility] 23:33:00 23:33:00 MEDICARE r ve Heart b55-64d1-0 l Care PA 44c-1x7384 [facility] nn f33c7a 2016-08-13 2016-08-13 2016 nullFlavo Comprehensi 6f9d 1f79-1 [facility] 23:33:00 23:33:00 MEDICARE r ve Heart 103-463c-8 l Care PA [id number] [facility] nn 94721q 2016-08-13 2016-08-13 2016 nullFlavo Comprehensi f618 7811-4 [facility] 23:33:00 23:33:00 MEDICARE r ve Heart 2x5-6r35-z l Care PA 401-ift961 [facility] nn [id number] 2016-08-13 2016-08-132015 nullFlavo Comprehensi a51d d5d9-b [facility] 23:33:00 23:33:00 MEDICARE r ve Heart w68-36h8-8 l Care PA 44c-0w0404 [facility] nn f33c7a 2016-08-13 2016-08-132015 nullFlavo Comprehensi 6b6c 45d1-a [facility] 23:33:00 23:33:00 MEDICARE r ve Heart v9q-7i37-3 l Care PA 5d0-c2i341 [facility] nn 43b0d6 2016-08-13 2016-08-13 2016 nullFlavo Comprehensi c174 612c-1 [facility] 23:33:00 23:33:00 MEDICARE r ve Heart 59a-4796-a l Care PA [id number]-[id number] [facility] nn 07094x 2016-08-13 2016-08-132015 nullFlavo Comprehensi f670 13c0-8 [facility] 23:33:00 23:33:00 MEDICARE r ve Heart 6y7-0422-6 l Care PA q03-48gi46 [facility] nn 479146 2036-12-01 2016-08-132015 nullFlavo Comprehensi 6b6c 45d1-a [facility] 23:33:00 23:33:00 MEDICARE r ve Heart t0c-2l92-0 l Care PA 3t2-t1p442 [facility] nn 43b0d6 2016-08-13 2016-08-132015 nullFlavo Comprehensi 6f9d 1f79-1 [facility] 23:33:00 23:33:00 MEDICARE r ve Heart 103-463c-8 l Care PA 5g8-4448qz Haylee nn 81324i 2016-08-13 2016-08-13 2016 nullFlavo Comprehensi f618 7811-4 [facility] 23:33:00 23:33:00 MEDICARE r ve Heart 4j3-3u88-m l Care PA 401-xip382 Haylee nn 9s0231 2016-08-13 2016-08-13 2016 nullFlavo Comprehensi f670 13c0-8 [facility] 23:33:00 23:33:00 MEDICARE r ve Heart 6t0-4765-0 l Care PA t41-96qo84 Haylee nn 950673 5672-12-01 2016-08-13 2016 nullFlavo Comprehensi c174 612c-1 [facility] 23:33:00 23:33:00 MEDICARE r ve Heart 59a-4796-a l Care PA [id number]-[id number] [facility] nn 13869n 2016-08-13 2016-08-13 2016 nullFlavo Comprehensi a51d d5d9-b [facility] 23:33:00 23:33:00 MEDICARE r ve Heart c77-81t9-7 l Care PA 44c-2i4297 [facility] nn f33c7a 2016-08-13 2016-08-13 Outpatient Comprehen Comprehensi 5 [id number] eClinic 17:33:00 17:33:00 sive ve Heart alWor tn Heart Care PA Care PA 2016-08-13 2016-08-13 Outpatient Comprehen Comprehensi 5 84582 eClinic 17:33:00 17:33:00 sive ve Heart alWor tn Heart Care PA Care PA 2016-07-15 2016-07-15 Unknown nullFlavo Comprehensi daaa 230c-a [facility]oria 19:30:00 19:30:00 r ve Heart bd4-4c17-a l Care PA dd6-2acc59 [facility] nn 5ebd7f 2016-07-15 2016-07-15 Unknown nullFlavo Comprehensi 099c 45c7-4 Memoria 19:30:00 19:30:00 r ve Heart 032-44c1-9 l Care PA 37d-7f9a63 [facility] nn 2effcb 2016-07-15 2016-07-15 Unknown nullFlavo Comprehensi d634 6e1a-f Memoria 19:30:00 19:30:00 r ve Heart af0-4f08-8 l Care PA 75d-2bc21f [facility] nn 14ad74 2016-07-15 2016-07-15 Unknown nullFlavo Comprehensi b473 4e1f-b [facility] 19:30:00 19:30:00 r ve Heart 758-473c-8 l Care PA dd1-6ed8a5 [facility] nn fcd3d9 2016-07-15 2016-07-15 Unknown nullFlavo Comprehensi c29c 6214-1 Memoria 19:30:00 19:30:00 r ve Heart 64e-44e6-8 l Care PA 254-ca35b1 [facility] nn 77e90c 2016-07-15 2016-07-15 Unknown nullFlavo Comprehensi d195 fcc9-8 Memoria 19:30:00 19:30:00 r ve Heart 0k9-1y96-v l Care PA 77b-866388 [facility] e4e07c 2016-07-15 2016-07-15 Unknown nullFlavo Comprehensi f2c8 5afb-9 Memoria 19:30:00 19:30:00 r ve Heart 64a-4f0d-b l Care PA fe6-48b375 [facility] p0d321 2016-07-15 2016-07-15 Unknown nullFlavo Comprehensi 099c 45c7-4 [facility]oria 19:30:00 19:30:00 r ve Heart 032-44c1-9 l Care PA 37d-7f9a63 [facility] nn 2effcb 2016-07-15 2016-07-15 Unknown nullFlavo Comprehensi d634 6e1a-f [facility] 19:30:00 19:30:00 r ve Heart af0-4f08-8 l Care PA 75d-2bc21f [facility] nn 14ad74 2016-07-15 2016-07-15 Unknown nullFlavo Comprehensi d195 fcc9-8 [facility]oria 19:30:00 19:30:00 r ve Heart 5f0-4x27-s l Care PA 77b-131196 [facility] e4e07c 2016-07-15 2016-07-15 Unknown nullFlavo Comprehensi f2c8 5afb-9 [facility]oria 19:30:00 19:30:00 r ve Heart 64a-4f0d-b l Care PA fe6-56h145 Haylee nn v1z626 2016-07-15 2016-07-15 Unknown nullFlavo Comprehensi daaa 230c-a [...] nn 5ebd7f 2016-07-15 2016-07-15 Unknown nullFlavo Comprehensi 099c 45c7-4 Memoria 19:30:00 19:30:00 r ve Heart 032-44c1-9 l Care PA 37d-7f9a63 [facility]lee nn 2effcb 2016-07-15 2016-07-15 Unknown nullFlavo Comprehensi d634 6e1a-f [facility] 19:30:00 19:30:00 r ve Heart af0-4f08-8 l Care PA 75d-2bc21f [facility]lee nn 14ad74 2016-07-15 2016-07-15 Unknown nullFlavo Comprehensi b473 4e1f-b [facility] 19:30:00 19:30:00 r ve Heart 758-473c-8 l Care PA dd1-6ed8a5 [facility]lee nn fcd3d9 2016-07-15 2016-07-15 Unknown nullFlavo Comprehensi c29c 6214-1 [facility] 19:30:00 19:30:00 r ve Heart 64e-44e6-8 l Care PA 254-ca35b1 [facility]lee nn 77e90c 2016-07-15 2016-07-15 Unknown nullFlavo Comprehensi d195 fcc9-8 Memoria 19:30:00 19:30:00 r ve Heart 1t2-9h68-w l Care PA 77b-199427 [facility]lee nn e4e07c 2016-07-15 2016-07-15 Unknown nullFlavo Comprehensi f2c8 5afb-9 [facility] 19:30:00 19:30:00 r ve Heart 64a-4f0d-b l Care PA fe6-23o767 [facility]lee nn s3y889 2016-07-15 2016-07-15 message nullFlavo Comprehensi 3733 8d9b-6 [facility] 15:31:00 15:31:00 r ve Heart 7ba-4002-9 l Care PA r08-3pd0p4 [facility]lee nn 8628dc 2016-07-15 2016-07-15 message nullFlavo Comprehensi 0427 719b-e [facility]oria 15:31:00 15:31:00 r ve Heart daa-4106-a l Care PA x51-51703b Haylee nn 2e6892 2016-07-15 2016-07-15 message nullFlavo Comprehensi 46f3 9e8f-b [facility] 15:31:00 15:31:00 r ve Heart de9-40d1-a l Care PA 26c-e1fa4e [facility]lee nn f5b0fe 2016-07-15 2016-07-15 message nullFlavo Comprehensi 5446 3b5c-6 [facility] 15:31:00 15:31:00 r ve Heart eb2-42f1-b l Care PA eb1-4z2185 [facility]lee nn 0edddd 2016-07-15 2016-07-15 message nullFlavo Comprehensi 8647 85b7-a [facility] 15:31:00 15:31:00 r ve Heart bec-48a3-8 l Care PA 9fd-b74e2b [facility]lee nn euk120 2016-07-15 2016-07-15 message nullFlavo Comprehensi eebe e590-4 Memoria 15:31:00 15:31:00 r ve Heart 4fb-4565-a l Care PA a79-037850 [facility] nn f174a4 2016-07-15 2016-07-15 message nullFlavo Comprehensi f9b3 c1d8-b [facility]oria 15:31:00 15:31:00 r ve Heart o42-50b2-1 l Care PA ce2-r9324h Haylee nn 765cf8 2016-07-15 2016-07-15 message nullFlavo Comprehensi 0427 719b-e [facility]oria 15:31:00 15:31:00 r ve Heart daa-4106-a l Care PA g01-06817h [facility] nn 8e0584 2016-07-15 2016-07-15 message nullFlavo Comprehensi 46f3 9e8f-b [facility]oria 15:31:00 15:31:00 r ve Heart de9-40d1-a l Care PA 26c-e1fa4e [facility] nn f5b0fe 2016-07-15 2016-07-15 message nullFlavo Comprehensi eebe e590-4 Memoria 15:31:00 15:31:00 r ve Heart 4fb-4565-a l Care PA k59-077082 [facility] nn f174a4 2016-07-15 2016-07-15 message nullFlavo Comprehensi f9b3 c1d8-b [facility]oria 15:31:00 15:31:00 r ve Heart o27-92x6-8 l Care PA ce2-j5728x [facility] nn 765cf8 2016-07-15 2016-07-15 message nullFlavo Comprehensi 3733 8d9b-6 [facility]oria 15:31:00 15:31:00 r ve Heart 7ba-4002-9 l Care PA m58-1hk9y0 [facility]lee nn 8628dc 2016-07-15 2016-07-15 message nullFlavo Comprehensi 8647 85b7-a [facility] 15:31:00 15:31:00 r ve Heart bec-48a3-8 l Care PA 9fd-b74e2b [facility]lee nn ffr760 2016-07-15 2016-07-15 message nullFlavo Comprehensi 5446 3b5c-6 [facility] 15:31:00 15:31:00 r ve Heart eb2-42f1-b l Care PA eb1-5a5936 [facility]lee nn 0edddd 2016-07-15 2016-07-15 message nullFlavo Comprehensi 3733 8d9b-6 [facility] 15:31:00 15:31:00 r ve Heart 7ba-4002-9 l Care PA m60-9xd6d8 [facility]lee nn 8628dc 2016-07-15 2016-07-15 message nullFlavo Comprehensi 0427 719b-e [facility]oria 15:31:00 15:31:00 r ve Heart daa-4106-a l Care PA i42-52790d Hyalee nn 4o6044 2016-07-15 2016-07-15 message nullFlavo Comprehensi 46f3 9e8f-b [facility] 15:31:00 15:31:00 r ve Heart de9-40d1-a l Care PA 26c-e1fa4e [facility]lee nn f5b0fe 2016-07-15 2016-07-15 message nullFlavo Comprehensi 5446 3b5c-6 [facility] 15:31:00 15:31:00 r ve Heart eb2-42f1-b l Care PA eb1-2h6368 [facility]lee nn 0edddd 2016-07-15 2016-07-15 message nullFlavo Comprehensi 8647 85b7-a [facility] 15:31:00 15:31:00 r ve Heart bec-48a3-8 l Care PA 9fd-b74e2b [facility] nn pxt816 2016-07-15 2016-07-15 message nullFlavo Comprehensi eebe e590-4 [facility]oria 15:31:00 15:31:00 r ve Heart 4fb-4565-a l Care PA f66-537978 [facility] nn f174a4 2016-07-15 2016-07-15 message nullFlavo Comprehensi f9b3 c1d8-b [facility] 15:31:00 15:31:00 r ve Heart r88-22b4-3 l Care PA ce2-g8532f [facility]lee nn 765cf8 2016-07-15 2016-07-15 message nullFlavo Comprehensi 849e 8048-f [facility] 14:31:00 14:31:00 r ve Heart 57e-496a-a l Care PA 5q9-d4406i [facility]lee nn 32d15f 2016-07-15 2016-07-15 message nullFlavo Comprehensi 849e 8048-f [facility] 14:31:00 14:31:00 r ve Heart 57e-496a-a l Care PA 4w8-o8119s [facility]lee nn 32d15f 2016-07-15 2016-07-15 message nullFlavo Comprehensi 849e 8048-f [facility] 14:31:00 14:31:00 r ve Heart 57e-496a-a l Care PA 2f7-h1965c [facility]lee nn 32d15f 2016-07-15 2016-07-15 Outpatient Comprehen Comprehensi 5 82519 eClinic 13:30:00 13:30:00 sive ve Heart alWor tn Heart Care PA Care PA 2016-07-15 2016-07-15 Outpatient Comprehen Comprehensi 5 40069 eClinic 13:30:00 13:30:00 sive ve Heart alWor tn Heart Care PA Care PA 2016-07-15 2016-07-15 Outpatient Comprehen Comprehensi 5 56856 eClinic 09:31:00 09:31:00 sive ve Heart alWor tn Heart Care PA Care PA 2016-07-15 2016-07-15 Outpatient Comprehen Comprehensi 5 98154 eClinic 09:31:00 09:31:00 sive ve Heart alWor tn Heart Care PA Care PA 2016-06-17 2016-06-17 message re nullFlavo Comprehensi d x7616d3-y [facility] 20:50:00 20:50:00 PRALUENT r ve Heart 5n4-4tn1-9 l [facility] Care PA eff-j4z286 Haylee nn 4dbfd8 2016-06-17 2016-06-17 message re nullFlavo Comprehensi 6 h48015n-4 [facility] 20:50:00 20:50:00 PRALUENT r ve Heart maricruz-4f12-a l [facility] Care PA w2v-j13l78 Haylee nn 78537u 2016-06-17 2016-06-17 message re nullFlavo Comprehensi 0 09197y7-9 [facility] 20:50:00 20:50:00 PRALUENT r ve Heart 4c7-7i14-f l [facility] Care PA 3d1-94ss61 Haylee nn fe2fc8 2016-06-17 2016-06-17 message re nullFlavo Comprehensi e n4b3o30-5 [facility] 20:50:00 20:50:00 PRALUENT r ve Heart 8d2-1k6c-8 l [facility] Care PA 3ac-45be96 Haylee nn 61465e 2016-06-17 2016-06-17 message re nullFlavo Comprehensi b t15834e-4 [facility] 20:50:00 20:50:00 PRALUENT r ve Heart 47a-4a88-9 l [facility] Care PA fc5-f31a2b [facility]lee nn a56a7e 2016-06-17 2016-06-17 message re nullFlavo Comprehensi 5 5b455aa-k [facility] 20:50:00 20:50:00 PRALUENT r ve Heart 8z0-4a5w-e l [facility] Care PA 0h5-4090w7 [facility] nn 5a2cfe 2016-06-17 2016-06-17 message re nullFlavo Comprehensi 3 [id number] [facility] 20:50:00 20:50:00 PRALUENT r ve Heart 820-4b94-8 l [facility] [id number] [facility] nn [id number] 2016-06-17 2016-06-17 message re nullFlavo Comprehensi d [id number] [facility] 20:50:00 20:50:00 PRALUENT r ve Heart 6e6-6de7-0 l [facility] [id number] [facility] nn [id number] 2016-06-17 2016-06-17 message re nullFlavo Comprehensi 6 [id number] [facility] 20:50:00 20:50:00 PRALUENT r ve Heart maricruz-4f12-a l [facility] [id number] Haylee nn [id number] 2016-06-17 2016-06-17 message re nullFlavo Comprehensi 0 [id number] [facility] 20:50:00 20:50:00 PRALUENT r ve Heart 6w5-2p38-b l [facility] [id number] [facility] nn [id number] 2016-06-17 2016-06-17 message re nullFlavo Comprehensi e [id number] [facility] 20:50:00 20:50:00 PRALUENT r ve Heart 6x7-0a0b-2 l [facility] [id number] Haylee nn [id number] 2016-06-17 2016-06-17 message re nullFlavo Comprehensi b [id number] [facility] 20:50:00 20:50:00 PRALUENT r ve Heart 47a-4a88-9 l [facility] [id number] [facility] nn [id number] 2016-06-17 2016-06-17 message re nullFlavo Comprehensi 5 [id number] [facility] 20:50:00 20:50:00 PRALUENT r ve Heart 0s1-8t8y-f l [facility] [id number] [facility] 5a2cfe 2016-06-17 2016-06-17 message re nullFlavo Comprehensi 3 [id number] [facility] 20:50:00 20:50:00 PRALUENT r ve Heart 820-4b94-8 l [facility] [id number] [facility] nn [id number] 2016-06-17 2016-06-17 message re nullFlavo Comprehensi 6 [id number] [facility] 20:50:00 20:50:00 PRALUENT r ve Heart maricruz-4f12-a l [facility] [id number] [facility] nn [id number] 2016-06-17 2016-06-17 message re nullFlavo Comprehensi 0 [id number] [facility] 20:50:00 20:50:00 PRALUENT r ve Heart 0e7-3n63-g l [facility] [id number] [facility] nn [id number] 2016-06-17 2016-06-17 message re nullFlavo Comprehensi 5 [id number] [facility] 20:50:00 20:50:00 PRALUENT r ve Heart 4d0-6m9s-l l [facility] [id number] [facility] 5a2cfe 2016-06-17 2016-06-17 message re nullFlavo Comprehensi 3 [id number] [facility] 20:50:00 20:50:00 PRALUENT r ve Heart 820-4b94-8 l [facility] [id number] [facility] nn [id number] 2016-06-17 2016-06-17 message re nullFlavo Comprehensi d [id number] [facility] 20:50:00 20:50:00 PRALUENT r ve Heart 2o8-3zt7-8 l [facility] [id number] [facility] nn 4dbfd8 2016-06-17 2016-06-17 message re nullFlavo Comprehensi b [id number] [facility] 20:50:00 20:50:00 PRALUENT r ve Heart 47a-4a88-9 l [facility] [id number] [facility] nn [id number] 2016-06-17 2016-06-17 message re nullFlavo Comprehensi e [id number] [facility] 20:50:00 20:50:00 PRALUENT r ve Heart 4o8-7m4n-3 l [facility] [id number] [facility] nn [id number] 2016-06-17 2016-06-17 LAB SLIP nullFlavo Comprehensi ca0 [id number]-6 [facility] 20:08:00 20:08:00 FOR LIPID r ve Heart bdb-42fc-9 l [facility] [id number] [facility] nn [id number] 2016-06-17 2016-06-17 LAB SLIP nullFlavo Comprehensi 3a8 [id number]-3 [facility] 20:08:00 20:08:00 FOR LIPID r ve Heart 29c-4d50-8 l [facility] PA [id number] [facility] nn [id number] 2016-06-17 2016-06-17 LAB SLIP nullFlavo Comprehensi 6ca [id number]-t [facility] 20:08:00 20:08:00 FOR LIPID r ve Heart 97d-4853-8 l [facility] PA [id number] [facility] nn [id number] 2016-06-17 2016-06-17 LAB SLIP nullFlavo Comprehensi 777 [id number] [facility] 20:08:00 20:08:00 FOR LIPID r ve Heart 72d-46a0-9 l [facility] PA [id number] Haylee nn [id number] 2016-06-17 2016-06-17 LAB SLIP nullFlavo Comprehensi c0b s24hc-t [facility] 20:08:00 20:08:00 FOR LIPID r ve Heart c5v-9j0t-k l [facility] PA [id number] Haylee nn [id number] 2016-06-17 2016-06-17 LAB SLIP nullFlavo Comprehensi 1c8 62f92-d [facility] 20:08:00 20:08:00 FOR LIPID r ve Heart 93a-49a9-9 l [facility] PA 72a-1471ba Haylee nn [id number] 2016-06-17 2016-06-17 LAB SLIP nullFlavo Comprehensi 6ed [id number] [facility] 20:08:00 20:08:00 FOR LIPID r ve Heart 21a-4475-8 l [facility] PA [id number]-[id number] Haylee nn [id number] 2016-06-17 2016-06-17 LAB SLIP nullFlavo Comprehensi ca0 [id number]-6 [facility] 20:08:00 20:08:00 FOR LIPID r ve Heart bdb-42fc-9 l [facility] PA [id number]-sy4w16 Haylee nn [id number] 2016-06-17 2016-06-17 LAB SLIP nullFlavo Comprehensi 3a8 u6z3w-7 [facility] 20:08:00 20:08:00 FOR LIPID r ve Heart 29c-4d50-8 l PANEL Care PA 259-c16f8f Haylee nn 315faa 2016-06-17 2016-06-17 LAB SLIP nullFlavo Comprehensi 6ca k403p-v [facility] 20:08:00 20:08:00 FOR LIPID r ve Heart 97d-4853-8 l PANEL Care PA cfd-30b739 Haylee nn o6813o 2016-06-17 2016-06-17 LAB SLIP nullFlavo Comprehensi 777 945m9-5 [facility] 20:08:00 20:08:00 FOR LIPID r ve Heart 72d-46a0-9 l PANEL Care PA 948-582f07 Haylee nn 06b06c 2016-06-17 2016-06-17 LAB SLIP nullFlavo Comprehensi c0b k87vv-p [facility] 20:08:00 20:08:00 FOR LIPID r ve Heart x7t-9a6a-u l PANEL Care PA o11-1bcxj4 Haylee nn a7d1f3 2016-06-17 2016-06-17 LAB SLIP nullFlavo Comprehensi 1c8 49c58-y [facility] 20:08:00 20:08:00 FOR LIPID r ve Heart 93a-49a9-9 l PANEL Care PA 72a-1471ba Haylee nn 2fba23 2016-06-17 2016-06-17 LAB SLIP nullFlavo Comprehensi 6ed gk09w-6 [facility] 20:08:00 20:08:00 FOR LIPID r ve Heart 21a-4475-8 l PANEL Care PA 19c-a802b5 [facility] nn 79h356 2016-06-17 2016-06-17 LAB SLIP nullFlavo Comprehensi 3a8 f0b6y-0 [facility]oria 20:08:00 20:08:00 FOR LIPID r ve Heart 29c-4d50-8 l PANEL Care PA 259-c16f8f Haylee nn 315faa 2016-06-17 2016-06-17 LAB SLIP nullFlavo Comprehensi 6ca e433b-a [facility] 20:08:00 20:08:00 FOR LIPID r ve Heart 97d-4853-8 l PANEL Care PA cfd-19t838 [facility] nn g0976g 2016-06-17 2016-06-17 LAB SLIP nullFlavo Comprehensi 1c8 45j64-g [facility] 20:08:00 20:08:00 FOR LIPID r ve Heart 93a-49a9-9 l PANEL Care PA 72a-1471ba [facility] nn 2fba23 2016-06-17 2016-06-17 LAB SLIP nullFlavo Comprehensi 6ed gs38e-1 [facility] 20:08:00 20:08:00 FOR LIPID r ve Heart 21a-4475-8 l PANEL Care PA 19c-a802b5 Haylee nn 21r879 2016-06-17 2016-06-17 LAB SLIP nullFlavo Comprehensi ca0 5612f-6 [facility] 20:08:00 20:08:00 FOR LIPID r ve Heart bdb-42fc-9 l PANEL Care PA h28-wx9g24 Haylee nn cb14dc 2016-06-17 2016-06-17 LAB SLIP nullFlavo Comprehensi c0b a05jk-w [facility] 20:08:00 20:08:00 FOR LIPID r ve Heart f2s-7b6b-g l PANEL Care PA k49-5ilhj0 Haylee nn a7d1f3 2016-06-17 2016-06-17 LAB SLIP nullFlavo Comprehensi 777 228a0-8 [facility] 20:08:00 20:08:00 FOR LIPID r ve Heart 72d-46a0-9 l PANEL Care PA 948-582f07 Haylee nn 06b06c 2016-06-17 2016-06-17 message re nullFlavo Comprehensi b n10331d-2 [facility] 19:50:00 19:50:00 PRALUENT r ve Heart p84-45c3-1 l [facility] Care PA 952-3ebdab [facility] nn 4g585s 2016-06-17 2016-06-17 message re nullFlavo Comprehensi c uz31fv0-m [facility] 19:50:00 19:50:00 PRALUENT r ve Heart f46-2692-h l [facility] Care PA de8-46d243 [facility] nn cd83a0 2016-06-17 2016-06-17 message re nullFlavo Comprehensi 2 c3oo514-0 [facility] 19:50:00 19:50:00 PRALUENT r ve Heart 4e0-5970-f l [facility] Care PA cc4-a54ec4 [facility] nn c6bc8b 2016-06-17 2016-06-17 message re nullFlavo Comprehensi 2 0la14uj-q [facility] 19:50:00 19:50:00 PRALUENT r ve Heart q8l-740y-h l [facility] Care PA 880-nw3088 [facility] nn 1903f0 2016-06-17 2016-06-17 message re nullFlavo Comprehensi b h55088f-1 [facility] 19:50:00 19:50:00 PRALUENT r ve Heart x52-40u5-7 l [facility] Care PA 952-3ebdab [facility] nn 0c561k 2016-06-17 2016-06-17 message re nullFlavo Comprehensi c rc40oi0-d [facility]oria 19:50:00 19:50:00 PRALUENT r ve Heart v60-0605-q l [facility] Care PA de8-82i527 [facility] cd83a0 2016-06-17 2016-06-17 message re nullFlavo Comprehensi 2 a2ps098-1 [facility] 19:50:00 19:50:00 PRALUENT r ve Heart 5u9-0018-h l [facility] Care PA cc4-a54ec4 [facility] c6bc8b 2016-06-17 2016-06-17 message re nullFlavo Comprehensi 2 2dt88bu-d [facility] 19:50:00 19:50:00 PRALUENT r ve Heart t0r-209d-o l [facility] Care PA 880-ok7915 [facility] 1903f0 2016-06-17 2016-06-17 message re nullFlavo Comprehensi b u80694s-3 [facility] 19:50:00 19:50:00 PRALUENT r ve Heart v14-74c7-4 l [facility] Care PA 952-3ebdab [facility] 4l838k 2016-06-17 2016-06-17 message re nullFlavo Comprehensi c sa59im6-y [facility] 19:50:00 19:50:00 PRALUENT r ve Heart f83-8718-z l [facility] Care PA de8-61f935 [facility] cd83a0 2016-06-17 2016-06-17 message re nullFlavo Comprehensi 2 j2kn219-0 [facility] 19:50:00 19:50:00 PRALUENT r ve Heart 0l5-0033-y l [facility] Care PA cc4-a54ec4 [facility] c6bc8b 2016-06-17 2016-06-17 message re nullFlavo Comprehensi 2 6me63rx-a [facility] 19:50:00 19:50:00 PRALUENT r ve Heart x7v-994b-q l [facility] Care PA 880-hr0447 [facility] 1903f0 2016-06-17 2016-06-17 LAB SLIP nullFlavo Comprehensi 7e7 533cd-a [facility] 19:08:00 19:08:00 FOR LIPID r ve Heart m63-0j3c-a l PANEL Care PA 300-18c0af Haylee nn ba3cb8 2016-06-17 2016-06-17 LAB SLIP nullFlavo Comprehensi 6b1 o16nx-3 [facility] 19:08:00 19:08:00 FOR LIPID r ve Heart 094-4736-a l PANEL Care PA cde-6fcfc4 Haylee nn 3c0e69 2016-06-17 2016-06-17 LAB SLIP nullFlavo Comprehensi 6cc 40t8d-d [facility] 19:08:00 19:08:00 FOR LIPID r ve Heart 3fb-41e5-9 l PANEL Care PA fc8-0b77a0 Haylee nn 8r1511 2016-06-17 2016-06-17 LAB SLIP nullFlavo Comprehensi 7e7 533cd-a [facility] 19:08:00 19:08:00 FOR LIPID r ve Heart e92-7a3a-e l PANEL Care PA 300-18c0af Haylee nn ba3cb8 2016-06-17 2016-06-17 LAB SLIP nullFlavo Comprehensi 6b1 b39eh-7 [facility] 19:08:00 19:08:00 FOR LIPID r ve Heart 094-4736-a l PANEL Care PA cde-6fcfc4 Haylee nn 3c0e69 2016-06-17 2016-06-17 LAB SLIP nullFlavo Comprehensi 6cc 61n6r-q [facility] 19:08:00 19:08:00 FOR LIPID r ve Heart 3fb-41e5-9 l PANEL Care PA fc8-0b77a0 Haylee nn 1t2464 2016-06-17 2016-06-17 LAB SLIP nullFlavo Comprehensi 7e7 533cd-a [facility] 19:08:00 19:08:00 FOR LIPID r ve Heart x01-4h3y-f l PANEL Care PA 300-18c0af Haylee nn ba3cb8 2016-06-17 2016-06-17 LAB SLIP nullFlavo Comprehensi 6b1 w41tp-4 [facility] 19:08:00 19:08:00 FOR LIPID r ve Heart 094-4736-a l PANEL Care PA cde-6fcfc4 Haylee nn 3c0e69 2016-06-17 2016-06-17 LAB SLIP nullFlavo Comprehensi 6cc 58y2d-t [facility] 19:08:00 19:08:00 FOR LIPID r ve Heart 3fb-41e5-9 l PANEL Care PA fc8-0b77a0 Haylee nn 0b3460 2016-06-17 2016-06-17 Unknown nullFlavo Comprehensi 2966 f9ad-2 [facility] 19:00:00 19:00:00 r ve Heart bc7-4618-b l Care PA beb-843b55 Haylee nn 15322b 2016-06-17 2016-06-17 Unknown nullFlavo Comprehensi 803b cd7c-8 [facility]oria 19:00:00 19:00:00 r ve Heart 37a-4580-b l Care PA 722-6x3469 Haylee nn s2986w 2016-06-17 2016-06-17 Unknown nullFlavo Comprehensi 984d d51c-a [facility]oria 19:00:00 19:00:00 r ve Heart 96f-4d06-a l Care PA 12c-oz892r Haylee nn 6nc819 2016-06-17 2016-06-17 Unknown nullFlavo Comprehensi bc99 9ac0-8 [facility]oria 19:00:00 19:00:00 r ve Heart o72-458e-2 l Care PA 235-0a46f2 Haylee nn d103a2 2016-06-17 2016-06-17 Unknown nullFlavo Comprehensi 3b4d d3c9-5 [facility]oria 19:00:00 19:00:00 r ve Heart c6x-5r80-7 l Care PA 3p1-0c4k3s Haylee nn 39f8d3 2016-06-17 2016-06-17 Unknown nullFlavo Comprehensi 394b e81b-5 [facility] 19:00:00 19:00:00 r ve Heart 796-40c7-b l Care PA 28e-d01c35 Haylee nn 88f1e6 2016-06-17 2016-06-17 Unknown nullFlavo Comprehensi 154c 58a9-4 [facility] 19:00:00 19:00:00 r ve Heart yahaira-4938-b l Care PA b21-y3467v [facility] nn f7a61c 2016-06-17 2016-06-17 Unknown nullFlavo Comprehensi 2966 f9ad-2 [facility]oria 19:00:00 19:00:00 r ve Heart bc7-4618-b l Care PA beb-843b55 [facility] nn 95099h 2016-06-17 2016-06-17 Unknown nullFlavo Comprehensi 803b cd7c-8 [facility]oria 19:00:00 19:00:00 r ve Heart 37a-4580-b l Care PA 722-7v3863 [facility] nn a5016r 2016-06-17 2016-06-17 Unknown nullFlavo Comprehensi 984d d51c-a [facility]oria 19:00:00 19:00:00 r ve Heart 96f-4d06-a l Care PA 12c-qw674g [facility] nn 4yf323 2016-06-17 2016-06-17 Unknown nullFlavo Comprehensi bc99 9ac0-8 Memoria 19:00:00 19:00:00 r ve Heart p94-839j-2 l Care PA 235-0a46f2 [facility] nn d103a2 2016-06-17 2016-06-17 Unknown nullFlavo Comprehensi 3b4d d3c9-5 Memoria 19:00:00 19:00:00 r ve Heart o8g-4q04-3 l Care PA 9l1-1x5r2m [facility] nn 39f8d3 2016-06-17 2016-06-17 Unknown nullFlavo Comprehensi 394b e81b-5 Memoria 19:00:00 19:00:00 r ve Heart 796-40c7-b l Care PA 28e-d01c35 [facility] nn 88f1e6 2016-06-17 2016-06-17 Unknown nullFlavo Comprehensi 154c 58a9-4 Memoria 19:00:00 19:00:00 r ve Heart yahaira-4938-b l Care PA j69-x5514v [facility] nn f7a61c 2016-06-17 2016-06-17 Unknown nullFlavo Comprehensi 803b cd7c-8 Memoria 19:00:00 19:00:00 r ve Heart 37a-4580-b l Care PA 722-2u6618 [facility] o9164a 2016-06-17 2016-06-17 Unknown nullFlavo Comprehensi 984d d51c-a Memoria 19:00:00 19:00:00 r ve Heart 96f-4d06-a l Care PA 12c-fg904m [facility] nn 7zx976 2016-06-17 2016-06-17 Unknown nullFlavo Comprehensi 394b e81b-5 [facility]oria 19:00:00 19:00:00 r ve Heart 796-40c7-b l Care PA 28e-d01c35 [facility] nn 88f1e6 2016-06-17 2016-06-17 Unknown nullFlavo Comprehensi 154c 58a9-4 Memoria 19:00:00 19:00:00 r ve Heart yahaira-4938-b l Care PA k43-s7059n [facility] nn f7a61c 2016-06-17 2016-06-17 Unknown nullFlavo Comprehensi 2966 f9ad-2 [facility]oria 19:00:00 19:00:00 r ve Heart bc7-4618-b l Care PA beb-843b55 [facility] nn 60888h 2016-06-17 2016-06-17 Unknown nullFlavo Comprehensi 3b4d d3c9-5 Memoria 19:00:00 19:00:00 r ve Heart w7x-7n40-6 l Care PA 6u6-4g9o6o [facility] nn 39f8d3 2016-06-17 2016-06-17 Unknown nullFlavo Comprehensi bc99 9ac0-8 Memoria 19:00:00 19:00:00 r ve Heart f27-755u-1 l Care PA 235-0a46f2 [facility] nn d103a2 2016-06-17 2016-06-17 Unknown nullFlavo Comprehensi 120b 31a5-6 [facility]oria 18:00:00 18:00:00 r ve Heart 717-4484-8 l Care PA 7ca-617b02 [facility] nn 252b03 2016-06-17 2016-06-17 Unknown nullFlavo Comprehensi 05c5 52d4-1 [facility]oria 18:00:00 18:00:00 r ve Heart acb-44e3-8 l Care PA q00-376813 [facility] nn 279e84 2016-06-17 2016-06-17 Unknown nullFlavo Comprehensi 120b 31a5-6 [facility]oria 18:00:00 18:00:00 r ve Heart 717-4484-8 l Care PA a-617b02 [facility] 252b03 2016-06-17 2016-06-17 Unknown nullFlavo Comprehensi 05c5 52d4-1 Memoria 18:00:00 18:00:00 r ve Heart acb-44e3-8 l Care PA i64-157082 [facility] 279e84 2016-06-17 2016-06-17 Unknown nullFlavo Comprehensi 120b 31a5-6 Memoria 18:00:00 18:00:00 r ve Heart 717-4484-8 l Care PA a-617b02 [facility] 252b03 2016-06-17 2016-06-17 Unknown nullFlavo Comprehensi 05c5 52d4-1 [facility]oria 18:00:00 18:00:00 r ve Heart acb-44e3-8 l Care PA l26-028361 [facility] nn 279e84 2016-06-17 2016-06-17 Outpatient Comprehen Comprehensi 5 97426 eClinic 14:50:00 14:50:[facility] 2016-06-17 2016-06-17 Outpatient Comprehen Comprehensi 5 37238 eClinic 14:50:00 14:50:[facility] Care PA 2016-06-17 2016-06-17 Outpatient Comprehen Comprehensi 5 [id number] eClinic 14:08:00 14:08:[facility] Care PA 2016-06-17 2016-06-17 Outpatient Comprehen Comprehensi 5 30171 eClinic 14:08:00 14:08:00 sive ve Heart alWor tn Heart Care PA Care PA 2016-06-17 2016-06-17 Outpatient Comprehen Comprehensi 4 34472 eClinic 13:00:00 13:00:00 sive ve Heart alWor tn Heart Care PA Care PA 2016-06-17 2016-06-17 Outpatient Comprehen Comprehensi 4 98415 eClinic 13:00:00 13:00:[facility] Care PA 2016-06-16 2016-06-16 2016 nullFlavo Comprehensi 1e9c 40c8-5 Memoria 22:41:00 22:41:00 MEDICARE r ve Heart 22b-4cef-b l Care GAGE [id number] Haylee echols [id number] 2016-06-16 2016-06-16 2016 nullFlavo Comprehensi be84 9965-c Memoria 22:41:00 22:41:00 MEDICARE r ve Heart 997-4ff6-a l Care GAGE [id number] Haylee echols [id number] 2016-06-16 2016-06-16 2016 nullFlavo Comprehensi e44b 99ae-6 Memoria 22:41:00 22:41:00 MEDICARE r ve Heart c06-78m5-k l Care GAGE [phone] Haylee echols da10d7 2016-06-16 2016-06-16 2016 nullFlavo Comprehensi a889 cf1d-2 Memoria 22:41:00 22:41:00 MEDICARE r ve Heart 549-4d77-a l Care GAGE 57f-f23bde Haylee nn 70139u 2016-06-16 2016-06-16 2016 nullFlavo Comprehensi 0e28 1565-4 Memoria 22:41:00 22:41:00 MEDICARE r ve Heart 577-4f63-a l Care GAGE 88e-76e7af Haylee echols 030b06 2016-06-16 2016-06-16 2016 nullFlavo Comprehensi 0c50 1094-4 Memoria 22:41:00 22:41:00 MEDICARE r ve Heart 2b4-0l69-j ivelisse Care GAGE [phone] Haylee echols [id number] 2016-06-16 2016-06-16 2016 nullFlavo Comprehensi 4fd9 f754-a Memoria 22:41:00 22:41:00 MEDICARE r ve Heart n49-9625-c l Care GAGE [id number] Haylee echols e675da 2016-06-16 2016-06-16 2016 nullFlavo Comprehensi 1e9c 40c8-5 Memoria 22:41:00 22:41:00 MEDICARE r ve Heart 22b-4cef-b l Care GAGE [id number] Haylee echols [id number] 2016-06-16 2016-06-16 2016 nullFlavo Comprehensi be84 9965-c Memoria 22:41:00 22:41:00 MEDICARE r ve Heart 997-4ff6-a l Care PA [id number] Haylee nn 93p738 2016-06-16 2016-06-16 2016 nullFlavo Comprehensi e44b 99ae-6 Memoria 22:41:00 22:41:00 MEDICARE r ve Heart z18-06x8-i l Care PA [id number] Haylee echols da10d7 2016-06-16 2016-06-16 2016 nullFlavo Comprehensi a889 cf1d-2 Memoria 22:41:00 22:41:00 MEDICARE r ve Heart 549-4d77-a l Care PA 57f-f23bde Haylee nn 68899j 2016-06-16 2016-06-16 2016 nullFlavo Comprehensi 0e28 1565-4 Memoria 22:41:00 22:41:00 MEDICARE r ve Heart 577-4f63-a l Care PA 88e-76e7af Haylee nn 030b06 2016-06-16 2016-06-16 2016 nullFlavo Comprehensi 0c50 1094-4 Memoria 22:41:00 22:41:00 MEDICARE r ve Heart 2t9-7e56-o l Care PA [id number] Haylee nn [id number] 2016-06-16 2016-06-16 2016 nullFlavo Comprehensi 4fd9 f754-a Memoria 22:41:00 22:41:00 MEDICARE r ve Heart m82-6308-o l Care PA [id number] Haylee nn e675da 2016-06-16 2016-06-16 2016 nullFlavo Comprehensi be84 9965-c Memoria 22:41:00 22:41:00 MEDICARE r ve Heart 997-4ff6-a l Care PA [id number] Haylee kinza [id number] 2016-06-16 2016-06-16 2016 nullFlavo Comprehensi e44b 99ae-6 Memoria 22:41:00 22:41:00 MEDICARE r ve Heart f42-29n4-m l Care PA [id number] Haylee kinza da10d7 2016-06-16 2016-06-16 2016 nullFlavo Comprehensi 0c50 1094-4 Memoria 22:41:00 22:41:00 MEDICARE r ve Heart 5a7-9p09-s l Care PA [id number] Haylee nn [id number] 2016-06-16 2016-06-16 2016 nullFlavo Comprehensi 4fd9 f754-a Memoria 22:41:00 22:41:00 MEDICARE r ve Heart o29-5328-m l Care PA o84-226m56 Haylee nn e675da 2016-06-16 2016-06-162015 nullFlavo Comprehensi 1e9c 40c8-5 Memoria 22:41:00 22:41:00 MEDICARE r ve Heart 22b-4cef-b l Care PA fdd-gb5551 Haylee nn [id number] 2016-06-16 2016-06-16 2016 nullFlavo Comprehensi 0e28 1565-4 Memoria 22:41:00 22:41:00 MEDICARE r ve Heart 577-4f63-a l Care PA 88e-76e7af Haylee nn 030b06 2016-06-16 2016-06-162015 nullFlavo Comprehensi a889 cf1d-2 Memoria 22:41:00 22:41:00 MEDICARE r ve Heart 549-4d77-a l Care PA 57f-f23bde Haylee nn 39919o 2016-06-16 2016-06-16 2016 nullFlavo Comprehensi 08d5 96b0-3 Memoria 21:41:00 21:41:00 MEDICARE r ve Heart 469-4eb9-9 l Care PA 3v6-1890nd Haylee nn c2c8e5 2016-06-16 2016-06-16 2016 nullFlavo Comprehensi 714a 9733-0 Memoria 21:41:00 21:41:00 MEDICARE r ve Heart 0da-4e12-b l Care PA [id number]-g2w497 Haylee nn 6872e8 2016-06-16 2016-06-16 2016 nullFlavo Comprehensi 5841 efa2-1 Memoria 21:41:00 21:41:00 MEDICARE r ve Heart 25b-46df-a l Care PA 516-6335aa Haylee nn a3aa90 2016-06-16 2016-06-16 2016 nullFlavo Comprehensi 05da d46a-e Memoria 21:41:00 21:41:00 MEDICARE r ve Heart c24-96d7-n l Care PA 510-5640c8 [facility] nn ts663l 2016-06-16 2016-06-16 2016 nullFlavo Comprehensi b77c f7b7-4 Memoria 21:41:00 21:41:00 MEDICARE r ve Heart 90e-45d9-8 l Care PA d03-89e29n [facility] 314bcb 2016-06-16 2016-06-162015 nullFlavo Comprehensi 08d5 96b0-3 Memoria 21:41:00 21:41:00 MEDICARE r ve Heart 469-4eb9-9 Care PA [id number] [facility] c2c8e5 2016-06-16 2016-06-16 2016 nullFlavo Comprehensi 714a 9733-0 Memoria 21:41:00 21:41:00 MEDICARE r ve Heart 0da-4e12-b Care SC [id number] [facility] [id number] 2016-06-16 2016-06-16 2016 nullFlavo Comprehensi 5841 efa2-1 Memoria 21:41:00 21:41:00 MEDICARE r ve Heart 25b-46df-a Care PA 516-6335aa [facility] nn a3aa90 2016-06-16 2016-06-16 2016 nullFlavo Comprehensi 05da d46a-e Memoria 21:41:00 21:41:00 MEDICARE r ve Heart k42-24h5-c Care SC [id number] [facility] [id number] 2016-06-16 2016-06-16 2016 nullFlavo Comprehensi b77c f7b7-4 Memoria 21:41:00 21:41:00 MEDICARE r ve Heart 90e-45d9-8 Care PA k35-85c11f [facility] 314bcb 2016-06-16 2016-06-16 2016 nullFlavo Comprehensi 714a 9733-0 Memoria 21:41:00 21:41:00 MEDICARE r ve Heart 0da-4e12-b l Care SC [id number]-[id number] [facility] [id number] 2016-06-16 2016-06-16 2016 nullFlavo Comprehensi 08d5 96b0-3 Memoria 21:41:00 21:41:00 MEDICARE r ve Heart 469-4eb9-9 l Care PA [id number] Haylee nn c2c8e5 2016-06-16 2016-06-16 2016 nullFlavo Comprehensi 5841 efa2-1 Memoria 21:41:00 21:41:00 MEDICARE r ve Heart 25b-46df-a l Care PA 516-6335aa Haylee nn a3aa90 2016-06-16 2016-06-16 2016 nullFlavo Comprehensi 05da d46a-e Memoria 21:41:00 21:41:00 MEDICARE r ve Heart x09-44m3-u l Care PA 510-5640c8 Haylee nn vf799n 2016-06-16 2016-06-16 2016 nullFlavo Comprehensi b77c f7b7-4 Memoria 21:41:00 21:41:00 MEDICARE r ve Heart 90e-45d9-8 l Care PA h18-37h37z Haylee nn 314bcb 2016-06-16 2016-06-16 Outpatient Comprehen Comprehensi 5 [id number] eClinic 16:41:00 16:41:00 sive ve Heart alWor tn Heart Care PA Care PA 2016-06-16 2016-06-16 Outpatient Comprehen Comprehensi 5 74634 eClinic 16:41:00 16:41:00 sive ve Heart alWor tn Heart Care PA Care PA 2016-06-15 2016-06-15 Labs nullFlavo Comprehensi aac2 38ae-6 Memoria 14:43:00 14:43:00 r ve Heart r43-5889-9 l Care PA 205-16323m Haylee nn 68d7c1 2016-06-15 2016-06-15 Labs nullFlavo Comprehensi 0f52 9c81-0 Memoria 14:43:00 14:43:00 r ve Heart 605-401d-8 l Care PA 021-s27469 Haylee nn d0ba9a 2016-06-15 2016-06-15 Labs nullFlavo Comprehensi 5310 bb0d-2 Memoria 14:43:00 14:43:00 r ve Heart 7q8-26r8-2 l Care PA af0-26991h Haylee nn 1273d3 2016-06-15 2016-06-15 Labs nullFlavo Comprehensi f2b9 24a5-7 Memoria 14:43:00 14:43:00 r ve Heart be7-4e74-a l Care PA j4b-g3to1p Haylee nn 6c3546 2016-06-15 2016-06-15 Labs nullFlavo Comprehensi c610 bc5b-7 Memoria 14:43:00 14:43:00 r ve Heart o6n-38j8-4 l Care PA r84-l07la3 Haylee nn 08d4cd 2016-06-15 2016-06-15 Labs nullFlavo Comprehensi de0e 5b74-7 Memoria 14:43:00 14:43:00 r ve Heart x12-9a6n-1 l Care PA e94-058d0i Haylee nn 292056 1420-10-03 2016-06-15 Labs nullFlavo Comprehensi b35c 4f34-8 Memoria 14:43:00 14:43:00 r ve Heart db7-45b3-b l Care PA w03-2v87c7 Haylee nn 14be12 2016-06-15 2016-06-15 Labs nullFlavo Comprehensi aac2 38ae-6 Memoria 14:43:00 14:43:00 r ve Heart p26-1105-2 l Care PA 205-11328c Haylee nn 68d7c1 2016-06-15 2016-06-15 Labs nullFlavo Comprehensi 0f52 9c81-0 Memoria 14:43:00 14:43:00 r ve Heart 605-401d-8 l Care PA 021-b41126 Haylee nn d0ba9a 2016-06-15 2016-06-15 Labs nullFlavo Comprehensi 5310 bb0d-2 Memoria 14:43:00 14:43:00 r ve Heart 0o7-47l4-2 l Care PA af0-29851y Haylee nn 1273d3 2016-06-15 2016-06-15 Labs nullFlavo Comprehensi f2b9 24a5-7 Memoria 14:43:00 14:43:00 r ve Heart be7-4e74-a l Care PA l4y-u0fh3f [facility] nn 9z5235 2016-06-15 2016-06-15 Labs nullFlavo Comprehensi c610 bc5b-7 Memoria 14:43:00 14:43:00 r ve Heart u1j-61e3-5 l Care PA a19-q73ca5 [facility] nn 08d4cd 2016-06-15 2016-06-15 Labs nullFlavo Comprehensi de0e 5b74-7 Memoria 14:43:00 14:43:00 r ve Heart z14-8o1d-2 l Care PA [id number] [facility] nn [id number] 0984-10-03 2016-06-15 Labs nullFlavo Comprehensi b35c 4f34-8 Memoria 14:43:00 14:43:00 r ve Heart db7-45b3-b l Care PA [id number] [facility] nn 14be12 2016-06-15 2016-06-15 Labs nullFlavo Comprehensi 0f52 9c81-0 Memoria 14:43:00 14:43:00 r ve Heart 605-401d-8 l Care PA [id number] [facility] nn d0ba9a 2016-06-15 2016-06-15 Labs nullFlavo Comprehensi 5310 bb0d-2 Memoria 14:43:00 14:43:00 r ve Heart 6f1-87y4-5 l Care PA [id number] [facility] nn [id number] 2016-06-15 2016-06-15 Labs nullFlavo Comprehensi de0e 5b74-7 Memoria 14:43:00 14:43:00 r ve Heart r50-2l3z-2 l Care PA [id number] [facility] nn [id number] 8513-10-03 2016-06-15 Labs nullFlavo Comprehensi b35c 4f34-8 Memoria 14:43:00 14:43:00 r ve Heart db7-45b3-b l Care PA [id number] [facility] nn 14be12 2016-06-15 2016-06-15 Labs nullFlavo Comprehensi aac2 38ae-6 [facility]oria 14:43:00 14:43:00 r ve Heart r90-3062-4 l Care PA [id number] [facility] nn 68d7c1 2016-06-15 2016-06-15 Labs nullFlavo Comprehensi c610 bc5b-7 [facility]oria 14:43:00 14:43:00 r ve Heart d8n-13u6-8 l Care PA [id number] [facility]lee nn 08d4cd 2016-06-15 2016-06-15 Labs nullFlavo Comprehensi f2b9 24a5-7 [facility] 14:43:00 14:43:00 r ve Heart be7-4e74-a l Care PA [id number] [facility]lee nn 2x6926 2016-06-15 2016-06-15 Labs nullFlavo Comprehensi ca11 d680-0 [facility]oria 13:43:00 13:43:00 r ve Heart i19-7411-9 l Care PA [id number] Haylee nn 7ff8ef 2016-06-15 2016-06-15 Labs nullFlavo Comprehensi 3e3e 3ae6-8 [facility]oria 13:43:00 13:43:00 r ve Heart 70c-42ea-8 l Care PA [id number]-853e3e Haylee nn 3bd7df 2016-06-15 2016-06-15 Labs nullFlavo Comprehensi 6646 6c65-8 [facility]oria 13:43:00 13:43:00 r ve Heart 550-43ae-a l Care PA [id number] [facility]lee nn da28bd 2016-06-15 2016-06-15 Labs nullFlavo Comprehensi 4c5d 42e5-8 [facility] 13:43:00 13:43:00 r ve Heart 744-4ed0-a l Care PA [id number] [facility]lee nn 9a60fd 2016-06-15 2016-06-15 Labs nullFlavo Comprehensi 633d de05-f [facility] 13:43:00 13:43:00 r ve Heart 29f-4e01-9 l Care PA [id number] Haylee nn 3382c3 2016-06-15 2016-06-15 Labs nullFlavo Comprehensi b019 4e32-4 [facility] 13:43:00 13:43:00 r ve Heart g78-083t-8 l Care PA [id number]-[id number] Haylee nn 66m477 2016-06-15 2016-06-15 Labs nullFlavo Comprehensi ca11 d680-0 Memoria 13:43:00 13:43:00 r ve Heart x95-0155-0 l Care PA [id number] Hyalee nn 7ff8ef 2016-06-15 2016-06-15 Labs nullFlavo Comprehensi 3e3e 3ae6-8 Memoria 13:43:00 13:43:00 r ve Heart 70c-42ea-8 l Care PA 78d-853e3e Haylee nn 3bd7df 2016-06-15 2016-06-15 Labs nullFlavo Comprehensi 6646 6c65-8 Memoria 13:43:00 13:43:00 r ve Heart 550-43ae-a l Care PA [id number]-1684u4 Haylee nn da28bd 2016-06-15 2016-06-15 Labs nullFlavo Comprehensi 4c5d 42e5-8 Memoria 13:43:00 13:43:00 r ve Heart 744-4ed0-a l Care PA [id number] Haylee nn 9a60fd 2016-06-15 2016-06-15 Labs nullFlavo Comprehensi 633d de05-f Memoria 13:43:00 13:43:00 r ve Heart 29f-4e01-9 l Care PA [id number] Haylee nn 3382c3 2016-06-15 2016-06-15 Labs nullFlavo Comprehensi b019 4e32-4 Memoria 13:43:00 13:43:00 r ve Heart i09-335d-4 l Care PA [id number]-3g483m Haylee nn 41i738 2016-06-15 2016-06-15 Labs nullFlavo Comprehensi 6646 6c65-8 Memoria 13:43:00 13:43:00 r ve Heart 550-43ae-a l Care PA [id number]-[id number] Haylee nn da28bd 2016-06-15 2016-06-15 Labs nullFlavo Comprehensi 3e3e 3ae6-8 Memoria 13:43:00 13:43:00 r ve Heart 70c-42ea-8 l Care PA 78d-853e3e Haylee nn 3bd7df 2016-06-15 2016-06-15 Labs nullFlavo Comprehensi ca11 d680-0 [facility]oria 13:43:00 13:43:00 r ve Heart m62-5550-7 l Care PA [id number]-056364 Haylee nn 7ff8ef 2016-06-15 2016-06-15 Labs nullFlavo Comprehensi 4c5d 42e5-8 [facility]oria 13:43:00 13:43:00 r ve Heart 744-4ed0-a l Care PA [id number] Haylee nn 9a60fd 2016-06-15 2016-06-15 Labs nullFlavo Comprehensi 633d de05-f Memoria 13:43:00 13:43:00 r ve Heart 29f-4e01-9 l Care PA [id number] Haylee nn 3382c3 2016-06-15 2016-06-15 Labs nullFlavo Comprehensi b019 4e32-4 [facility] 13:43:00 13:43:00 r ve Heart j39-404n-7 l Care PA [id number] Haylee nn [id number] 2016-06-15 2016-06-15 Outpatient Comprehen Comprehensi 4 41174 [facility]inic 08:43[facility]00 [facility]43[facility] 2016-06-15 2016-06-15 Outpatient Comprehen Comprehensi 4 [id number] eClinic 08:43:00 08:43[facility] 2016-05-20 2016-05-20 2016 nullFlavo Comprehensi 5460 b560-3 Memoria 17:36:00 17:36:00 MEDICARE r ve Heart 3af-43f3-9 l Care PA [id number]-80060j Haylee nn 29d0c8 2016-05-20 2016-05-20 2016 nullFlavo Comprehensi 5d41 7c19-d Memoria 17:36:00 17:36:00 MEDICARE r ve Heart 34c-411d-8 l Care PA 96c-977aee Haylee nn 3712d1 2016-05-20 2016-05-20 2016 nullFlavo Comprehensi bab0 9236-f Memoria 17:36:00 17:36:00 MEDICARE r ve Heart s0n-5599-9 l Care PA [id number] [facility] [id number] 2016-05-20 2016-05-202015 nullFlavo Comprehensi 8699 2d21-1 Memoria 17:36:00 17:36:00 MEDICARE r ve Heart 899-4a5a-a l Care PA [id number]-hse338 [facility] nn 5561c2 2016-05-20 2016-05-202015 nullFlavo Comprehensi 66b1 2a34-c Memoria 17:36:00 17:36:00 MEDICARE r ve Heart 3aa-415e-a l Care PA [id number]-c61f53 [facility] [id number] 2016-05-20 2016-05-202015 nullFlavo Comprehensi 12fc 662b-1 Memoria 17:36:00 17:36:00 MEDICARE r ve Heart l13-4l5q-0 l Care PA [id number] [facility] nn c328db 2016-05-20 2016-05-202015 nullFlavo Comprehensi bc15 09b2-d Memoria 17:36:00 17:36:00 MEDICARE r ve Heart 80d-4db9-8 l Care PA [id number] [facility] [id number] 2016-05-20 2016-05-202015 nullFlavo Comprehensi 5460 b560-3 Memoria 17:36:00 17:36:00 MEDICARE r ve Heart 3af-43f3-9 l Care PA [id number]-85216t [facility] 29d0c8 2016-05-20 2016-05-202015 nullFlavo Comprehensi 5d41 7c19-d Memoria 17:36:00 17:36:00 MEDICARE r ve Heart 34c-411d-8 l Care PA 96c-977aee [facility] nn 3712d1 2016-05-20 2016-05-202015 nullFlavo Comprehensi bab0 9236-f Memoria 17:36:00 17:36:00 MEDICARE r ve Heart x5g-5239-6 l Care PA [id number] [facility] [id number] 2016-05-20 2016-05-202015 nullFlavo Comprehensi 8699 2d21-1 Memoria 17:36:00 17:36:00 MEDICARE r ve Heart 899-4a5a-a l Care PA [id number]-bta198 [facility] [id number] 2016-05-20 2016-05-202015 nullFlavo Comprehensi 66b1 2a34-c Memoria 17:36:00 17:36:00 MEDICARE r ve Heart 3aa-415e-a l Care PA 99f-c61f53 Haylee nn [id number] 2016-05-20 2016-05-202015 nullFlavo Comprehensi 12fc 662b-1 Memoria 17:36:00 17:36:00 MEDICARE r ve Heart u78-2x5x-4 l Care PA [id number] [facility] nn c328db 2016-05-20 2016-05-202015 nullFlavo Comprehensi bc15 09b2-d Memoria 17:36:00 17:36:00 MEDICARE r ve Heart 80d-4db9-8 l Care PA [id number] [facility] nn [id number] 2016-05-20 2016-05-202015 nullFlavo Comprehensi 5d41 7c19-d Memoria 17:36:00 17:36:00 MEDICARE r ve Heart 34c-411d-8 l Care PA 96c-977aee [facility] nn 3712d1 2016-05-20 2016-05-202015 nullFlavo Comprehensi bab0 9236-f Memoria 17:36:00 17:36:00 MEDICARE r ve Heart u2q-4836-1 l Care PA [id number] [facility] nn b88a71 2016-05-20 2016-05-202015 nullFlavo Comprehensi 12fc 662b-1 Memoria 17:36:00 17:36:00 MEDICARE r ve Heart s98-2s5n-4 l Care PA [id number] [facility] nn c328db 2016-05-20 2016-05-202015 nullFlavo Comprehensi bc15 09b2-d Memoria 17:36:00 17:36:00 MEDICARE r ve Heart 80d-4db9-8 l Care PA [id number] [facility] nn [id number] 2016-05-20 2016-05-202015 nullFlavo Comprehensi 5460 b560-3 Memoria 17:36:00 17:36:00 MEDICARE r ve Heart 3af-43f3-9 l Care PA 22d-69152i [facility] nn 29d0c8 2016-05-20 2016-05-202015 nullFlavo Comprehensi 66b1 2a34-c Memoria 17:36:00 17:36:00 MEDICARE r ve Heart 3aa-415e-a l Care PA [id number]-c61f53 [facility] [id number] 2016-05-20 2016-05-202015 nullFlavo Comprehensi 8699 2d21-1 Memoria 17:36:00 17:36:00 MEDICARE r ve Heart 899-4a5a-a l Care PA 1bf-dby949 [facility] nn 5561c2 2016-05-20 2016-05-202015 nullFlavo Comprehensi 9dfd 196c-e Memoria 16:36:00 16:36:00 MEDICARE r ve Heart 274-4405-a l Care PA [id number]-a29f90 [facility] nn [id number] 2016-05-20 2016-05-202015 nullFlavo Comprehensi 7208 f57c-8 Memoria 16:36:00 16:36:00 MEDICARE r ve Heart 668-4990-9 l Care PA [id number] [facility] nn 7724be 2016-05-20 2016-05-202015 nullFlavo Comprehensi 3ef6 50ea-c Memoria 16:36:00 16:36:00 MEDICARE r ve Heart 3x7-9533-b l Care PA 24a-ccf89a [facility] nn fe7efe 2016-05-20 2016-05-202015 nullFlavo Comprehensi 6d61 ff69-d Memoria 16:36:00 16:36:00 MEDICARE r ve Heart 934-429e-b l Care PA 57a-d104f2 [facility] nn 91ac90 2016-05-20 2016-05-202015 nullFlavo Comprehensi fb64 6646-3 Memoria 16:36:00 16:36:00 MEDICARE r ve Heart 41c-453d-8 l Care PA [id number] [facility] nn [id number] 2016-05-20 2016-05-202015 nullFlavo Comprehensi 64f4 ee2c-b Memoria 16:36:00 16:36:00 MEDICARE r ve Heart b72-5b64-6 l Care PA [id number] [facility] nn 9cb7d5 2016-05-20 2016-05-202015 nullFlavo Comprehensi 3c49 7dcb-1 Memoria 16:36:00 16:36:00 MEDICARE r ve Heart abf-4244-9 l Care PA [id number] [facility] nn [id number] 2016-05-20 2016-05-202015 nullFlavo Comprehensi 9dfd 196c-e Memoria 16:36:00 16:36:00 MEDICARE r ve Heart 274-4405-a l Care PA [id number]-a29f90 [facility] nn [id number] 2016-05-20 2016-05-202015 nullFlavo Comprehensi 7208 f57c-8 Memoria 16:36:00 16:36:00 MEDICARE r ve Heart 668-4990-9 l Care PA [id number] [facility] nn 7724be 2016-05-20 2016-05-202015 nullFlavo Comprehensi 3ef6 50ea-c Memoria 16:36:00 16:36:00 MEDICARE r ve Heart 7r2-4456-w l Care PA 24a-ccf89a [facility] nn fe7efe 2016-05-20 2016-05-202015 nullFlavo Comprehensi 6d61 ff69-d Memoria 16:36:00 16:36:00 MEDICARE r ve Heart 934-429e-b l Care PA 57a-d104f2 [facility] nn 91ac90 2016-05-20 2016-05-202015 nullFlavo Comprehensi fb64 6646-3 Memoria 16:36:00 16:36:00 MEDICARE r ve Heart 41c-453d-8 l Care PA [id number] [facility] nn [id number] 2016-05-20 2016-05-202015 nullFlavo Comprehensi 64f4 ee2c-b Memoria 16:36:00 16:36:00 MEDICARE r ve Heart f38-4z00-5 l Care PA [id number] [facility] [id number] 2016-05-20 2016-05-202015 nullFlavo Comprehensi 3c49 7dcb-1 Memoria 16:36:00 16:36:00 MEDICARE r ve Heart abf-4244-9 l Care PA [id number] [facility] [id number] 2016-05-20 2016-05-202015 nullFlavo Comprehensi 6d61 ff69-d Memoria 16:36:00 16:36:00 MEDICARE r ve Heart 934-429e-b l Care PA 57a-d104f2 Haylee nn 91ac90 2016-05-20 2016-05-202015 nullFlavo Comprehensi 3ef6 50ea-c Memoria 16:36:00 16:36:00 MEDICARE r ve Heart 1w4-4084-r l Care PA 24a-ccf89a Haylee nn fe7efe 2016-05-20 2016-05-202015 nullFlavo Comprehensi 9dfd 196c-e Memoria 16:36:00 16:36:00 MEDICARE r ve Heart 274-4405-a l Care PA 12f-a29f90 Haylee nn h1936d 2016-05-20 2016-05-202015 nullFlavo Comprehensi 7208 f57c-8 Memoria 16:36:00 16:36:00 MEDICARE r ve Heart 668-4990-9 l Care PA [id number] Haylee nn 7724be 2016-05-20 2016-05-202015 nullFlavo Comprehensi fb64 6646-3 Memoria 16:36:00 16:36:00 MEDICARE r ve Heart 41c-453d-8 l Care PA [id number] Haylee nn [id number] 2016-05-20 2016-05-202015 nullFlavo Comprehensi 64f4 ee2c-b Memoria 16:36:00 16:36:00 MEDICARE r ve Heart p86-5u71-4 l Care PA [id number] Haylee nn 9cb7d5 2016-05-20 2016-05-202015 nullFlavo Comprehensi 3c49 7dcb-1 Memoria 16:36:00 16:36:00 MEDICARE r ve Heart abf-4244-9 l Care PA [id number]-v91222 Haylee nn [id number] 2016-05-20 2016-05-20 Outpatient Comprehen Comprehensi 4 33355 [facility]Clinic 11:36:00 11:36:00 sive ve Heart alWor tn Heart Care PA Care PA 2016-05-20 2016-05-20 Outpatient Comprehen Comprehensi 4 29435 eClinic 11:36:00 11:36:00 sive ve Heart alWor tn Heart Care PA Care PA 2016-04-01 2016-04-02 Outpt Diag nullFlavo [facility] [id number] Memoria 19:16:00 04:59:00 Services r Outpatient 00 l Imaging - Alan montes [facility] 2016-04-01 2016-04-02 Outpt Diag nullFlavo [facility] [id number] Memoria 19:16:00 04:59:00 Services r Outpatient 00 l Imaging - Alan n [facility] 2016-04-01 2016-04-02 Outpt Diag nullFlavo [facility] [id number] Memoria 19:16:00 04:59:00 Services r Outpatient 00 l Imaging - Alan montes [facility] 2016-04-01 2016-04-01 Outpatient Physician, [id number] 14:16:00 23:59:00 Non 00 Associated 2016-04-01 2016-04-01 Outpatient Physician, [id number] 14:16:00 23:59:00 Non 00 Associated 2016-02-19 2016-02-19 Unknown nullFlavo Comprehensi a82f 88dd-f Memoria 21:00:00 21:00:00 r ve Heart 611-4309-b l Care PA j07-750eig Haylee nn fdf39a 2016-02-19 2016-02-19 Unknown nullFlavo Comprehensi c107 b16d-7 Memoria 21:00:00 21:00:00 r ve Heart 9p0-6ab9-8 l Care PA 7eb-dc7bf7 Haylee nn 954993 5051-06-08 2016-02-19 Unknown nullFlavo Comprehensi 4731 01f2-3 Memoria 21:00:00 21:00:00 r ve Heart bb5-47fc-9 l Care PA 321-ne9974 Haylee nn 00cf65 2016-02-19 2016-02-19 Unknown nullFlavo Comprehensi 2e83 c0c4-e Memoria 21:00:00 21:00:00 r ve Heart k9z-25j9-2 l Care PA 354-93080w Haylee nn e508cf 2016-02-19 2016-02-19 Unknown nullFlavo Comprehensi b1db 8937-e Memoria 21:00:00 21:00:00 r ve Heart v0d-8417-i l Care PA 335-6e03af Haylee nn b34a5e 2016-02-19 2016-02-19 Unknown nullFlavo Comprehensi 14a1 6035-c Memoria 21:00:00 21:00:00 r ve Heart 277-4bfe-8 l Care PA j83-itbhaw Haylee nn 37e8d5 2016-02-19 2016-02-19 Unknown nullFlavo Comprehensi 185e bc7f-1 Memoria 21:00:00 21:00:00 r ve Heart 896-473e-b l Care PA ada-9c2a96 Haylee nn 47788o 2016-02-19 2016-02-19 Unknown nullFlavo Comprehensi a82f 88dd-f Memoria 21:00:00 21:00:00 r ve Heart 611-4309-b l Care PA w31-316gyf Haylee nn fdf39a 2016-02-19 2016-02-19 Unknown nullFlavo Comprehensi c107 b16d-7 Memoria 21:00:00 21:00:00 r ve Heart 5t9-8jc5-3 l Care PA 7eb-dc7bf7 Haylee nn [id number] 7202-06-08 2016-02-19 Unknown nullFlavo Comprehensi 4731 01f2-3 Memoria 21:00:00 21:00:00 r ve Heart bb5-47fc-9 l Care PA 321-ug1750 Haylee nn 00cf65 2016-02-19 2016-02-19 Unknown nullFlavo Comprehensi 2e83 c0c4-e Memoria 21:00:00 21:00:00 r ve Heart q4b-96y2-3 l Care PA 354-12688z Haylee nn e508cf 2016-02-19 2016-02-19 Unknown nullFlavo Comprehensi b1db 8937-e Memoria 21:00:00 21:00:00 r ve Heart m5x-5869-l l Care PA 335-6e03af Haylee nn b34a5e 2016-02-19 2016-02-19 Unknown nullFlavo Comprehensi 14a1 6035-c Memoria 21:00:00 21:00:00 r ve Heart 277-4bfe-8 l Care PA u86-ifzfin Haylee nn 37e8d5 2016-02-19 2016-02-19 Unknown nullFlavo Comprehensi 185e bc7f-1 Memoria 21:00:00 21:00:00 r ve Heart 896-473e-b l Care PA ada-9c2a96 Haylee nn 73069v 2016-02-19 2016-02-19 Unknown nullFlavo Comprehensi c107 b16d-7 Memoria 21:00:00 21:00:00 r ve Heart 0o7-8or6-3 l Care PA 7eb-dc7bf7 Haylee nn 354322 8831-06-08 2016-02-19 Unknown nullFlavo Comprehensi 4731 01f2-3 Memoria 21:00:00 21:00:00 r ve Heart bb5-47fc-9 l Care PA 321-xp0746 Haylee nn 00cf65 2016-02-19 2016-02-19 Unknown nullFlavo Comprehensi 14a1 6035-c Memoria 21:00:00 21:00:00 r ve Heart 277-4bfe-8 l Care PA n34-lbincl Haylee nn 37e8d5 2016-02-19 2016-02-19 Unknown nullFlavo Comprehensi 185e bc7f-1 Memoria 21:00:00 21:00:00 r ve Heart 896-473e-b l Care PA ada-9c2a96 Haylee nn 73812n 2016-02-19 2016-02-19 Unknown nullFlavo Comprehensi a82f 88dd-f Memoria 21:00:00 21:00:00 r ve Heart 611-4309-b l Care PA u08-893qdk Haylee nn fdf39a 2016-02-19 2016-02-19 Unknown nullFlavo Comprehensi b1db 8937-e Memoria 21:00:00 21:00:00 r ve Heart q5g-8795-z l Care PA 335-6e03af Haylee nn b34a5e 2016-02-19 2016-02-19 Unknown nullFlavo Comprehensi 2e83 c0c4-e Memoria 21:00:00 21:00:00 r ve Heart w9o-67r6-7 l Care PA 354-70598n Haylee nn e508cf 2016-02-19 2016-02-19 Unknown nullFlavo Comprehensi 14b0 72fb-f Memoria 20:00:00 20:00:00 r ve Heart bcd-47e0-a l Care PA j4v-e08g0f Haylee nn 857ec2 2016-02-19 2016-02-19 Unknown nullFlavo Comprehensi 61af f3db-d Memoria 20:00:00 20:00:00 r ve Heart i43-35uw-9 l Care PA 79e-9fab5c [facility] nn 6b8d3b 2016-02-19 2016-02-19 Unknown nullFlavo Comprehensi 6625 7a89-d Memoria 20:00:00 20:00:00 r ve Heart q1y-1h38-2 l Care PA 29b-e1c53b [facility] nn 81da30 2016-02-19 2016-02-19 Unknown nullFlavo Comprehensi 0c4a f12d-a Memoria 20:00:00 20:00:00 r ve Heart 246-4eb9-a l Care PA b87-8p0404 [facility] nn f3bb62 2016-02-19 2016-02-19 Unknown nullFlavo Comprehensi 2a79 90fd-3 Memoria 20:00:00 20:00:00 r ve Heart 74a-4810-b l Care PA n93-524b10 [facility] nn 4da1e1 2016-02-19 2016-02-19 Unknown nullFlavo Comprehensi 6ea2 5a2c-a Memoria 20:00:00 20:00:00 r ve Heart 7be-4e2d-8 l Care PA 250-088a26 [facility] nn 3eb9c9 2016-02-19 2016-02-19 Unknown nullFlavo Comprehensi 9343 f733-4 Memoria 20:00:00 20:00:00 r ve Heart y41-7473-c l Care PA t3t-z142gk [facility] nn 140703 6428-06-08 2016-02-19 Unknown nullFlavo Comprehensi cb28 c545-2 Memoria 20:00:00 20:00:00 r ve Heart j8a-4q97-1 l Care PA 552-04b1fa [facility] nn 08685l 2016-02-19 2016-02-19 Unknown nullFlavo Comprehensi 14b0 72fb-f Memoria 20:00:00 20:00:00 r ve Heart bcd-47e0-a l Care PA d0e-p97f5h Haylee nn 857ec2 2016-02-19 2016-02-19 Unknown nullFlavo Comprehensi 61af f3db-d Memoria 20:00:00 20:00:00 r ve Heart u97-11yn-4 l Care PA 79e-9fab5c Haylee nn 6b8d3b 2016-02-19 2016-02-19 Unknown nullFlavo Comprehensi 6625 7a89-d Memoria 20:00:00 20:00:00 r ve Heart f4t-2h40-9 l Care PA 29b-e1c53b Haylee nn 81da30 2016-02-19 2016-02-19 Unknown nullFlavo Comprehensi 0c4a f12d-a Memoria 20:00:00 20:00:00 r ve Heart 246-4eb9-a l Care PA c08-7q1501 Haylee nn f3bb62 2016-02-19 2016-02-19 Unknown nullFlavo Comprehensi 2a79 90fd-3 Memoria 20:00:00 20:00:00 r ve Heart 74a-4810-b l Care PA h02-567i89 Haylee nn 4da1e1 2016-02-19 2016-02-19 Unknown nullFlavo Comprehensi 6ea2 5a2c-a Memoria 20:00:00 20:00:00 r ve Heart 7be-4e2d-8 l Care PA 250-088a26 Haylee nn 3eb9c9 2016-02-19 2016-02-19 Unknown nullFlavo Comprehensi 9343 f733-4 Memoria 20:00:00 20:00:00 r ve Heart y00-9952-k l Care PA y3r-o807xe Haylee nn 645041 8767-06-08 2016-02-19 Unknown nullFlavo Comprehensi cb28 c545-2 Memoria 20:00:00 20:00:00 r ve Heart t8e-7s17-8 l Care PA 552-04b1fa Haylee nn 45537a 2016-02-19 2016-02-19 Unknown nullFlavo Comprehensi 0c4a f12d-a Memoria 20:00:00 20:00:00 r ve Heart 246-4eb9-a l Care PA x87-2v3865 Haylee nn f3bb62 2016-02-19 2016-02-19 Unknown nullFlavo Comprehensi 6625 7a89-d Memoria 20:00:00 20:00:00 r ve Heart o6j-3b85-3 l Care PA 29b-e1c53b Haylee nn 81da30 2016-02-19 2016-02-19 Unknown nullFlavo Comprehensi 14b0 72fb-f Memoria 20:00:00 20:00:00 r ve Heart bcd-47e0-a l Care PA t7l-v53d1w Haylee nn 857ec2 2016-02-19 2016-02-19 Unknown nullFlavo Comprehensi 61af f3db-d Memoria 20:00:00 20:00:00 r ve Heart n89-62nd-3 l Care PA 79e-9fab5c Haylee nn 6b8d3b 2016-02-19 2016-02-19 Unknown nullFlavo Comprehensi 6ea2 5a2c-a Memoria 20:00:00 20:00:00 r ve Heart 7be-4e2d-8 l Care PA 250-088a26 Haylee nn 3eb9c9 2016-02-19 2016-02-19 Unknown nullFlavo Comprehensi 2a79 90fd-3 Memoria 20:00:00 20:00:00 r ve Heart 74a-4810-b l Care PA w79-405e78 Haylee nn 4da1e1 2016-02-19 2016-02-19 Unknown nullFlavo Comprehensi 9343 f733-4 Memoria 20:00:00 20:00:00 r ve Heart c90-5944-m l Care PA u4u-z179ov Haylee nn 603419 0090-06-08 2016-02-19 Unknown nullFlavo Comprehensi cb28 c545-2 Memoria 20:00:00 20:00:00 r ve Heart f8h-7b18-0 l Care PA 552-04b1fa Haylee nn 81192q 2016-02-19 2016-02-19 Outpatient Comprehen Comprehensi 4 [id number] eClinic 15:00:00 15:00:00 sive ve Heart alWor tn Heart Care PA Care PA 2016-02-19 2016-02-19 Outpatient Comprehen Comprehensi 4 47312 eClinic 15:00:00 15:00:00 sive ve Heart alWor tn Heart Care PA Care PA 2016-02-14 2016-02-14 Unknown nullFlavo Comprehensi 24d8 e2fa-1 Memoria 19:53:00 19:53:00 r ve Heart 6bd-49be-a l Care PA 4m1-3gz21n [facility] nn c5t214 2016-02-14 2016-02-14 Unknown nullFlavo Comprehensi 9df4 636d-1 Memoria 19:53:00 19:53:00 r ve Heart 9k9-1gfv-7 l Care PA 2i6-5d2v46 [facility] nn a48981 2016-02-14 2016-02-14 Unknown nullFlavo Comprehensi b391 bd6c-7 Memoria 19:53:00 19:53:00 r ve Heart x31-4624-7 l Care PA 902-7a6f4c [facility] nn 540d3b 2016-02-14 2016-02-14 Unknown nullFlavo Comprehensi 6619 1fb4-d Memoria 19:53:00 19:53:00 r ve Heart 9af-4b8c-b l Care PA 165-629182 [facility] nn 2e3a22 2016-02-14 2016-02-14 Unknown nullFlavo Comprehensi c5fa d8da-0 Memoria 19:53:00 19:53:00 r ve Heart 081-4a83-8 l Care PA e5c-q9o11z [facility] nn e62e34 2016-02-14 2016-02-14 Unknown nullFlavo Comprehensi f271 722d-5 Memoria 19:53:00 19:53:00 r ve Heart k24-6e70-8 l Care PA 1r1-93q05q [facility] nn 441e89 2016-02-14 2016-02-14 Unknown nullFlavo Comprehensi fd1c 1b19-c Memoria 19:53:00 19:53:00 r ve Heart h65-5223-5 l Care PA 69a-07053c [facility] nn 8d138d 2016-02-14 2016-02-14 Unknown nullFlavo Comprehensi 24d8 e2fa-1 Memoria 19:53:00 19:53:00 r ve Heart 6bd-49be-a l Care PA 9o6-6nv80v Haylee nn i3u669 2016-02-14 2016-02-14 Unknown nullFlavo Comprehensi 9df4 636d-1 Memoria 19:53:00 19:53:00 r ve Heart 3w6-9krm-9 l Care PA 0s0-1z9f55 [facility] nn r11839 2016-02-14 2016-02-14 Unknown nullFlavo Comprehensi b391 bd6c-7 Memoria 19:53:00 19:53:00 r ve Heart z45-4045-2 l Care PA 902-7a6f4c [facility] nn 540d3b 2016-02-14 2016-02-14 Unknown nullFlavo Comprehensi 6619 1fb4-d Memoria 19:53:00 19:53:00 r ve Heart 9af-4b8c-b l Care PA 165-154738 [facility] nn 2e3a22 2016-02-14 2016-02-14 Unknown nullFlavo Comprehensi c5fa d8da-0 Memoria 19:53:00 19:53:00 r ve Heart 081-4a83-8 l Care PA b8x-y3s35p [facility] nn e62e34 2016-02-14 2016-02-14 Unknown nullFlavo Comprehensi f271 722d-5 Memoria 19:53:00 19:53:00 r ve Heart x28-2y53-9 l Care PA 4t3-17c92w [facility] nn 441e89 2016-02-14 2016-02-14 Unknown nullFlavo Comprehensi fd1c 1b19-c Memoria 19:53:00 19:53:00 r ve Heart d26-8371-8 l Care PA 69a-74864m [facility] nn 4j934x 2016-02-14 2016-02-14 Unknown nullFlavo Comprehensi 9df4 636d-1 Memoria 19:53:00 19:53:00 r ve Heart 7z8-5kuf-3 l Care PA 3l7-7x9k93 [facility] nn b26640 2016-02-14 2016-02-14 Unknown nullFlavo Comprehensi b391 bd6c-7 Memoria 19:53:00 19:53:00 r ve Heart s16-3736-9 l Care PA 902-7a6f4c Haylee nn 540d3b 2016-02-14 2016-02-14 Unknown nullFlavo Comprehensi f271 722d-5 Memoria 19:53:00 19:53:00 r ve Heart l57-5d60-4 l Care PA 6z1-98f80a Haylee nn 441e89 2016-02-14 2016-02-14 Unknown nullFlavo Comprehensi fd1c 1b19-c Memoria 19:53:00 19:53:00 r ve Heart w65-3257-8 l Care PA 69a-60974w Haylee nn 8d770j 2016-02-14 2016-02-14 Unknown nullFlavo Comprehensi 24d8 e2fa-1 Memoria 19:53:00 19:53:00 r ve Heart 6bd-49be-a l Care PA 7t7-1vz57w Haylee nn r5a244 2016-02-14 2016-02-14 Unknown nullFlavo Comprehensi c5fa d8da-0 Memoria 19:53:00 19:53:00 r ve Heart 081-4a83-8 l Care PA k5k-q7y42f Haylee nn e62e34 2016-02-14 2016-02-14 Unknown nullFlavo Comprehensi 6619 1fb4-d Memoria 19:53:00 19:53:00 r ve Heart 9af-4b8c-b l Care PA 165-332694 Haylee nn 2e3a22 2016-02-14 2016-02-14 Unknown nullFlavo Comprehensi 58b1 7d4d-5 Memoria 18:53:00 18:53:00 r ve Heart 299-46a9-8 l Care PA 9ce-b287f8 Haylee nn 3b4a10 2016-02-14 2016-02-14 Unknown nullFlavo Comprehensi cc99 fc65-1 Memoria 18:53:00 18:53:00 r ve Heart b3z-3382-7 l Care PA 830-227715 Haylee nn 6398e4 2016-02-14 2016-02-14 Unknown nullFlavo Comprehensi 002d 3aec-b Memoria 18:53:00 18:53:00 r ve Heart ad1-49b0-b l Care PA 772-7p336x Haylee nn dcaa2e 2016-02-14 2016-02-14 Unknown nullFlavo Comprehensi 1c8b f15c-2 Memoria 18:53:00 18:53:00 r ve Heart 452-47f5-b l Care PA ed3-f76ce0 Haylee nn aeabb8 2016-02-14 2016-02-14 Unknown nullFlavo Comprehensi b412 52e9-5 Memoria 18:53:00 18:53:00 r ve Heart 042-405f-b l Care PA 6j5-23y961 Haylee nn 0bc957 2016-02-14 2016-02-14 Unknown nullFlavo Comprehensi 852f 5a20-1 Memoria 18:53:00 18:53:00 r ve Heart 43e-4769-b l Care PA [id number] Haylee nn [id number] 2016-02-14 2016-02-14 Unknown nullFlavo Comprehensi eb16 7c51-4 [facility] 18:53:00 18:53:00 r ve Heart 8i5-5qs3-0 l Care PA 6ac-51fdb3 Haylee nn [id number] 2016-02-14 2016-02-14 Unknown nullFlavo Comprehensi c435 7455-b [facility] 18:53:00 18:53:00 r ve Heart 8cb-4e3e-b l Care PA [id number] Haylee nn v0c080 2016-02-14 2016-02-14 Unknown nullFlavo Comprehensi 5244 6448-9 [...] nn [id number] 2016-02-14 2016-02-14 Unknown nullFlavo Comprehensi cc99 fc65-1 [facility] 18:53:00 18:53:00 r ve Heart q2r-7373-2 l Care PA [id number] Haylee nn [id number] 2016-02-14 2016-02-14 Unknown nullFlavo Comprehensi 002d 3aec-b [facility] 18:53:00 18:53:00 r ve Heart ad1-49b0-b l Care PA 772-6r534n Haylee nn dcaa2e 2016-02-14 2016-02-14 Unknown nullFlavo Comprehensi 1c8b f15c-2 [facility] 18:53:00 18:53:00 r ve Heart 452-47f5-b l Care PA ed3-f76ce0 [facility] nn aeabb8 2016-02-14 2016-02-14 Unknown nullFlavo Comprehensi b412 52e9-5 Memoria 18:53:00 18:53:00 r ve Heart 042-405f-b l Care PA [id number] [facility] nn [id number] 2016-02-14 2016-02-14 Unknown nullFlavo Comprehensi 852f 5a20-1 [facility]oria 18:53:00 18:53:00 r ve Heart 43e-4769-b l Care PA q3k-3l105k [facility] nn [id number] 2016-02-14 2016-02-14 Unknown nullFlavo Comprehensi eb16 7c51-4 [facility]oria 18:53:00 18:53:00 r ve Heart 4b5-9ry0-0 l Care PA 6ac-51fdb3 [facility] nn [id number] 2016-02-14 2016-02-14 Unknown nullFlavo Comprehensi c435 7455-b [facility] 18:53:00 18:53:00 r ve Heart 8cb-4e3e-b l Care PA 392-9f04d4 Haylee nn [id number] 2016-02-14 2016-02-14 Unknown nullFlavo Comprehensi 5244 6448-9 [...] 7c51-4 [facility]oria 18:53:00 18:53:00 r ve Heart 2g6-2yw0-6 l Care PA 6ac-51fdb3 Haylee nn [id number] 2016-02-14 2016-02-14 Unknown nullFlavo Comprehensi b412 52e9-5 [facility] 18:53:00 18:53:00 r ve Heart 042-405f-b l Care PA [id number] Haylee nn [id number] 2016-02-14 2016-02-14 Unknown nullFlavo Comprehensi 1c8b f15c-2 [facility] 18:53:00 18:53:00 r ve Heart 452-47f5-b l Care PA ed3-f76ce0 Haylee nn aeabb8 2016-02-14 2016-02-14 Unknown nullFlavo Comprehensi cc99 fc65-1 [facility] 18:53:00 18:53:00 r ve Heart a3d-0158-6 l Care PA [id number] Haylee nn [id number] 2016-02-14 2016-02-14 Unknown nullFlavo Comprehensi 002d 3aec-b [facility] 18:53:00 18:53:00 r ve Heart ad1-49b0-b l Care PA 772-5y753r Haylee nn dcaa2e 2016-02-14 2016-02-14 Unknown nullFlavo Comprehensi c435 7455-b [facility] 18:53:00 18:53:00 r ve Heart 8cb-4e3e-b l Care PA 392-9f04d4 Haylee nn [id number] 2016-02-14 2016-02-14 Unknown nullFlavo Comprehensi 852f 5a20-1 [facility] 18:53:00 18:53:00 r ve Heart 43e-4769-b l Care PA [id number]-4d386a Haylee nn r2b659 2016-02-14 2016-02-14 Unknown nullFlavo Comprehensi 5244 6448-9 [facility] 18:53:00 18:53:00 r ve Heart 10a-410a-9 l Care PA 668-c9f02f Haylee nn e28cf2 2016-02-14 2016-02-14 Unknown nullFlavo Comprehensi 8e3e 6c31-1 [facility] 18:53:00 18:53:00 r ve Heart 787-4d26-b l Care PA 9fb-68cda9 Haylee nn 93b52d 2016-02-14 2016-02-14 Outpatient Comprehen Comprehensi [facility] 61052 [facility] 13:53:00 13:53:00 [facility]ive ve [facility] alWor tn Heart Care PA Care PA 2016-02-14 2016-02-14 Outpatient Comprehen Comprehensi 4 72972 [facility] 13:53:00 13:53:00 sive ve [facility] alWor tn Heart Care PA Care PA 2016-02-12 2016-02-12 Unknown nullFlavo Comprehensi 258e 82f7-d [facility] 21:00:00 21:00:00 r ve Heart 8t8-6t24-0 l Care PA 375-cc9ad5 Haylee nn dee93a 2016-02-12 2016-02-12 Unknown nullFlavo Comprehensi 551d 132f-9 [facility] 21:00:00 21:00:00 r ve Heart 2de-4ffa-8 l Care PA 3ce-19fa3e Haylee nn 3bfd44 2016-02-12 2016-02-12 Unknown nullFlavo Comprehensi 6dd7 7048-d [facility] 21:00:00 21:00:00 r ve Heart s0k-5c07-8 l Care PA [id number] Haylee nn [id number] 2016-02-12 2016-02-12 Unknown nullFlavo Comprehensi 7d36 7cfb-a [facility] 21:00:00 21:00:00 r ve Heart 04a-4155-a l Care PA 84d-wlm596 Haylee nn 5af1df 2016-02-12 2016-02-12 Unknown nullFlavo Comprehensi 26c7 bb2b-5 [facility] 21:00:00 21:00:00 r ve Heart fa3-45cf-b l Care PA 030-f579b4 Haylee nn c9a9be 2016-02-12 2016-02-12 Unknown nullFlavo Comprehensi 5a80 c6ff-8 [facility] 21:00:00 21:00:00 r ve Heart w12-7ct4-g l Care PA [id number]-q3362u Haylee nn ecbdbb 2016-02-12 2016-02-12 Unknown nullFlavo Comprehensi f9e6 b708-a [facility] 21:00:00 21:00:00 r ve Heart 977-43e3-8 l Care PA 5e3-klw151 Haylee nn x4v192 2016-02-12 2016-02-12 Unknown nullFlavo Comprehensi 258e 82f7-d [facility] 21:00:00 21:00:00 r ve Heart 6v2-1d10-3 l Care PA 375-cc9ad5 Haylee nn dee93a 2016-02-12 2016-02-12 Unknown nullFlavo Comprehensi 551d 132f-9 [facility] 21:00:00 21:00:00 r ve Heart 2de-4ffa-8 l Care PA 3ce-19fa3e Haylee nn 3bfd44 2016-02-12 2016-02-12 Unknown nullFlavo Comprehensi 6dd7 7048-d Memoria 21:00:00 21:00:00 r ve Heart r3n-4y05-7 l Care PA o74-7293ez Haylee nn 7863f4 2016-02-12 2016-02-12 Unknown nullFlavo Comprehensi 7d36 7cfb-a [facility] 21:00:00 21:00:00 r ve Heart 04a-4155-a l Care PA 84d-vgc779 Haylee nn 5af1df 2016-02-12 2016-02-12 Unknown nullFlavo Comprehensi 26c7 bb2b-5 [facility]oria 21:00:00 21:00:00 r ve Heart fa3-45cf-b l Care PA 030-f579b4 Haylee nn c9a9be 2016-02-12 2016-02-12 Unknown nullFlavo Comprehensi 5a80 c6ff-8 [facility] 21:00:00 21:00:00 r ve Heart b40-0mz1-k l Care PA 993-a6362f Haylee ecbdbb 2016-02-12 2016-02-12 Unknown nullFlavo Comprehensi f9e6 b708-a [facility] 21:00:00 21:00:00 r ve Heart 977-43e3-8 l Care PA 9u3-ows223 [facility] nn q8m605 2016-02-12 2016-02-12 Unknown nullFlavo Comprehensi 551d 132f-9 Memoria 21:00:00 21:00:00 r ve Heart 2de-4ffa-8 l Care PA 3ce-19fa3e Haylee nn 3bfd44 2016-02-12 2016-02-12 Unknown nullFlavo Comprehensi 6dd7 7048-d Memoria 21:00:00 21:00:00 r ve Heart c6s-4p32-6 l Care PA p49-6734gq Haylee nn 7863f4 2016-02-12 2016-02-12 Unknown nullFlavo Comprehensi 5a80 c6ff-8 [facility]oria 21:00:00 21:00:00 r ve Heart i66-3fl7-m l Care PA 993-s4064k Haylee nn ecbdbb 2016-02-12 2016-02-12 Unknown nullFlavo Comprehensi f9e6 b708-a [facility] 21:00:00 21:00:00 r ve Heart 977-43e3-8 l Care PA 2i2-rpv220 [facility] nn q6p387 2016-02-12 2016-02-12 Unknown nullFlavo Comprehensi 258e 82f7-d [facility] 21:00:00 21:00:00 r ve Heart 9k1-7o89-4 l Care PA 375-cc9ad5 [facility] nn dee93a 2016-02-12 2016-02-12 Unknown nullFlavo Comprehensi 26c7 bb2b-5 [facility]oria 21:00:00 21:00:00 r ve Heart fa3-45cf-b l Care PA 030-f579b4 [facility] nn c9a9be 2016-02-12 2016-02-12 Unknown nullFlavo Comprehensi 7d36 7cfb-a [facility] 21:00:00 21:00:00 r ve Heart 04a-4155-a l Care PA 84d-ptz081 [facility] nn 5af1df 2016-02-12 2016-02-12 Unknown nullFlavo Comprehensi 7047 bea5-6 [facility]oria 20:00:00 20:00:00 r ve Heart eab-4daf-8 l Care PA 17f-84bc38 [facility] nn eaf09a 2016-02-12 2016-02-12 Unknown nullFlavo Comprehensi 9a7b cfcd-5 Memoria 20:00:00 20:00:00 r ve Heart c90-4u33-l l Care PA d96-125878 [facility] e37359 2016-02-12 2016-02-12 Unknown nullFlavo Comprehensi 41cf f76c-3 Memoria 20:00:00 20:00:00 r ve Heart dd7-4fe9-8 l Care PA 4c3-5dzry1 [facility] nn isf365 2016-02-12 2016-02-12 Unknown nullFlavo Comprehensi 5471 b5ca-4 Memoria 20:00:00 20:00:00 r ve Heart b59-1297-8 l Care PA b74-r7r55t [facility] nn 87c82c 2016-02-12 2016-02-12 Unknown nullFlavo Comprehensi 6ff9 1970-c [facility] 20:00:00 20:00:00 r ve Heart fed-4725-b l Care PA 577-1qo632 [facility] nn t93394 2016-02-12 2016-02-12 Unknown nullFlavo Comprehensi 8441 0226-e [facility]oria 20:00:00 20:00:00 r ve Heart r00-06z9-j l Care PA 85c-41dbf0 [facility] nn e44b76 2016-02-12 2016-02-12 Unknown nullFlavo Comprehensi d7ce 15ca-8 [facility]oria 20:00:00 20:00:00 r ve Heart 3ca-489c-8 l Care PA 4a3-y7398a [facility] nn 09cbb5 2016-02-12 2016-02-12 Unknown nullFlavo Comprehensi d43a 856b-d Memoria 20:00:00 20:00:00 r ve Heart 3f1-64i4-h l Care PA 999-d0a59c Haylee nn ba09b5 2016-02-12 2016-02-12 Unknown nullFlavo Comprehensi eb0c 5984-e [facility]oria 20:00:00 20:00:00 r ve Heart h30-796f-8 l Care PA 0m2-d8675f Haylee nn 82696m 2016-02-12 2016-02-12 Unknown nullFlavo Comprehensi 7047 bea5-6 [facility] 20:00:00 20:00:00 r ve Heart eab-4daf-8 l Care PA 17f-84bc38 Haylee nn eaf09a 2016-02-12 2016-02-12 Unknown nullFlavo Comprehensi 9a7b cfcd-5 [facility]oria 20:00:00 20:00:00 r ve Heart x72-9k93-e l Care PA j10-084464 [facility] nn p21819 2016-02-12 2016-02-12 Unknown nullFlavo Comprehensi 41cf f76c-3 Memoria 20:00:00 20:00:00 r ve Heart dd7-4fe9-8 l Care PA 7b7-1mmyg1 [facility] nn rqz334 2016-02-12 2016-02-12 Unknown nullFlavo Comprehensi 5471 b5ca-4 [facility] 20:00:00 20:00:00 r ve Heart a88-2526-9 l Care PA h88-c0w98e [facility]lee nn 87c82c 2016-02-12 2016-02-12 Unknown nullFlavo Comprehensi 6ff9 1970-c [facility]oria 20:00:00 20:00:00 r ve Heart fed-4725-b l Care PA 577-4ey831 [facility] nn t63418 2016-02-12 2016-02-12 Unknown nullFlavo Comprehensi 8441 0226-e Memoria 20:00:00 20:00:00 r ve Heart r94-82f2-l l Care PA 85c-41dbf0 [facility]lee nn e44b76 2016-02-12 2016-02-12 Unknown nullFlavo Comprehensi d7ce 15ca-8 [facility]oria 20:00:00 20:00:00 r ve Heart 3ca-489c-8 l Care PA 9c3-l8145s Haylee nn 09cbb5 2016-02-12 2016-02-12 Unknown nullFlavo Comprehensi d43a 856b-d Memoria 20:00:00 20:00:00 r ve Heart 3c7-20f4-x l Care PA 999-d0a59c Haylee nn ba09b5 2016-02-12 2016-02-12 Unknown nullFlavo Comprehensi eb0c 5984-e [facility]oria 20:00:00 20:00:00 r ve Heart a86-454x-7 l Care PA 3n7-c7236a Haylee nn 38872h 2016-02-12 2016-02-12 Unknown nullFlavo Comprehensi 8441 0226-e [facility]oria 20:00:00 20:00:00 r ve Heart t51-47n1-j l Care PA 85c-41dbf0 [facility] nn e44b76 2016-02-12 2016-02-12 Unknown nullFlavo Comprehensi 5471 b5ca-4 [facility]oria 20:00:00 20:00:00 r ve Heart g35-9088-6 l Care PA i30-z4e10d [facility]lee nn 87c82c 2016-02-12 2016-02-12 Unknown nullFlavo Comprehensi 41cf f76c-3 [facility]oria 20:00:00 20:00:00 r ve Heart dd7-4fe9-8 l Care PA 2w5-3rpms1 [facility] nn fhq695 2016-02-12 2016-02-12 Unknown nullFlavo Comprehensi 7047 bea5-6 [facility]oria 20:00:00 20:00:00 r ve Heart eab-4daf-8 l Care PA 17f-84bc38 [facility]lee nn eaf09a 2016-02-12 2016-02-12 Unknown nullFlavo Comprehensi 9a7b cfcd-5 [facility] 20:00:00 20:00:00 r ve Heart x23-5f63-x l Care PA d63-997667 [facility] nn h21225 2016-02-12 2016-02-12 Unknown nullFlavo Comprehensi d7ce 15ca-8 [facility]oria 20:00:00 20:00:00 r ve Heart 3ca-489c-8 l Care PA 7b5-t1398r [facility]lee nn 09cbb5 2016-02-12 2016-02-12 Unknown nullFlavo Comprehensi 6ff9 1970-c [facility] 20:00:00 20:00:00 r ve Heart fed-4725-b l Care PA 577-4oz221 [facility] nn l77345 2016-02-12 2016-02-12 Unknown nullFlavo Comprehensi d43a 856b-d Memoria 20:00:00 20:00:00 r ve Heart 6w7-28p2-m l Care PA 999-d0a59c Haylee nn ba09b5 2016-02-12 2016-02-12 Unknown nullFlavo Comprehensi eb0c 5984-e [facility] 20:00:00 20:00:00 r ve Heart t67-136k-2 l Care PA 5n4-x7552c Haylee nn 22308l 2016-02-12 2016-02-12 Outpatient Comprehen Comprehensi [facility] 10542 [facility]inic 15:00:00 15:00:[facility] 2016-02-12 2016-02-12 Outpatient Comprehen Comprehensi 4 44932 eClinic 15:00:00 15:00:00 sive ve Heart alWor tn Heart Care PA Care PA 2016-02-12 2016-02-12 2016 nullFlavo Comprehensi be8a bf16-e Memoria 14:36:00 14:36:00 MEDICARE r ve Heart s8w-2cl9-n l Care PA 194-4377a3 [facility] nn 8319a7 2016-02-12 2016-02-12 2016 nullFlavo Comprehensi b6cc 28f6-9 Memoria 14:36:00 14:36:00 MEDICARE r ve Heart 6m0-2t97-2 l Care PA bc5-79fb22 [facility] nn 8468d4 2016-02-12 2016-02-12 2016 nullFlavo Comprehensi 838c 753a-7 Memoria 14:36:00 14:36:00 MEDICARE r ve Heart s08-470c-s l Care PA cf0-07e73d [facility] nn dx462i 2016-02-12 2016-02-12 2016 nullFlavo Comprehensi d455 dd6b-3 [facility]oria 14:36:00 14:36:00 MEDICARE r ve Heart 0u8-8l24-e l Care PA v0f-qf5ql8 [facility]lee nn fec52f 2016-02-12 2016-02-122015 nullFlavo Comprehensi f370 d54d-5 Memoria 14:36:00 14:36:00 MEDICARE r ve Heart 1bd-4cb3-a l Care PA bd6-8ffdbc Haylee nn fa8e12 2016-02-12 2016-02-122015 nullFlavo Comprehensi 6ab1 69b6-e Memoria 14:36:00 14:36:00 MEDICARE r ve Heart df8-46ee-8 l Care PA 66b-7abb71 [facility]lee nn 288b2d 2016-02-12 2016-02-122015 nullFlavo Comprehensi b7c9 c4b2-a Memoria 14:36:00 14:36:00 MEDICARE r ve Heart 24c-4944-9 l Care PA 284-vj213t Haylee nn f9f8f9 2016-02-12 2016-02-122015 nullFlavo Comprehensi be8a bf16-e Memoria 14:36:00 14:36:00 MEDICARE r ve Heart c8l-5ys1-g l Care PA 194-4377a3 [facility]lee nn 8319a7 2016-02-12 2016-02-122015 nullFlavo Comprehensi b6cc 28f6-9 Memoria 14:36:00 14:36:00 MEDICARE r ve Heart 4v4-6j78-6 l Care PA bc5-79fb22 [facility]lee nn 8468d4 2016-02-12 2016-02-122015 nullFlavo Comprehensi 838c 753a-7 Memoria 14:36:00 14:36:00 MEDICARE r ve Heart y11-574z-f l Care PA cf0-07e73d [facility]lee nn ut802q 2016-02-12 2016-02-122015 nullFlavo Comprehensi d455 dd6b-3 Memoria 14:36:00 14:36:00 MEDICARE r ve Heart 8h6-2r47-b l Care PA q3e-ny6xl5 [facility]lee nn fec52f 2016-02-12 2016-02-122015 nullFlavo Comprehensi f370 d54d-5 Memoria 14:36:00 14:36:00 MEDICARE r ve Heart 1bd-4cb3-a l Care PA bd6-8ffdbc Haylee nn fa8e12 2016-02-12 2016-02-122015 nullFlavo Comprehensi 6ab1 69b6-e Memoria 14:36:00 14:36:00 MEDICARE r ve Heart df8-46ee-8 l Care PA 66b-7abb71 Haylee nn 288b2d 2016-02-12 2016-02-122015 nullFlavo Comprehensi b7c9 c4b2-a Memoria 14:36:00 14:36:00 MEDICARE r ve Heart 24c-4944-9 l Care PA 284-pv606o Haylee nn f9f8f9 2016-02-12 2016-02-122015 nullFlavo Comprehensi b6cc 28f6-9 Memoria 14:36:00 14:36:00 MEDICARE r ve Heart 8s7-2o68-5 l Care PA bc5-79fb22 Haylee nn 8468d4 2016-02-12 2016-02-122015 nullFlavo Comprehensi 838c 753a-7 Memoria 14:36:00 14:36:00 MEDICARE r ve Heart g87-624b-l l Care PA cf0-07e73d Haylee nn or224m 2016-02-12 2016-02-122015 nullFlavo Comprehensi 6ab1 69b6-e Memoria 14:36:00 14:36:00 MEDICARE r ve Heart df8-46ee-8 l Care PA 66b-7abb71 Haylee nn 288b2d 2016-02-12 2016-02-122015 nullFlavo Comprehensi b7c9 c4b2-a Memoria 14:36:00 14:36:00 MEDICARE r ve Heart 24c-4944-9 l Care PA 284-hb491v Haylee nn f9f8f9 2016-02-12 2016-02-122015 nullFlavo Comprehensi be8a bf16-e Memoria 14:36:00 14:36:00 MEDICARE r ve Heart p2l-4gm0-s l Care PA 194-4377a3 [facility]lee nn 8319a7 2016-02-12 2016-02-122015 nullFlavo Comprehensi f370 d54d-5 Memoria 14:36:00 14:36:00 MEDICARE r ve Heart 1bd-4cb3-a l Care PA bd6-8ffdbc Haylee nn fa8e12 2016-02-12 2016-02-122015 nullFlavo Comprehensi d455 dd6b-3 Memoria 14:36:00 14:36:00 MEDICARE r ve Heart 1r9-3p20-l l Care PA d6m-ey8tl9 Haylee nn fec52f 2016-02-12 2016-02-122015 nullFlavo Comprehensi 1842 2845-e Memoria 13:36:00 13:36:00 MEDICARE r ve Heart 215-407b-8 l Care PA w71-036or1 Haylee nn 690332 5761-06-01 2016-02-122015 nullFlavo Comprehensi 97eb 22c0-9 Memoria 13:36:00 13:36:00 MEDICARE r ve Heart 37f-494f-a l Care PA a89-4e6pbi Haylee nn 14349j 2016-02-12 2016-02-122015 nullFlavo Comprehensi 1511 9779-5 Memoria 13:36:00 13:36:00 MEDICARE r ve Heart o28-6976-h l Care PA 200-79bf5c Haylee nn 7cz771 2016-02-12 2016-02-122015 nullFlavo Comprehensi e0a4 d372-f Memoria 13:36:00 13:36:00 MEDICARE r ve Heart eed-4133-9 l Care PA ed9-e3a5b0 [facility]lee nn cd69b3 2016-02-12 2016-02-122015 nullFlavo Comprehensi d33d 5f4e-b Memoria 13:36:00 13:36:00 MEDICARE r ve Heart 42e-4732-a l Care PA 1bd-5cbeb5 [facility]lee nn c391f1 2016-02-12 2016-02-122015 nullFlavo Comprehensi f1aa 4bb3-a Memoria 13:36:00 13:36:00 MEDICARE r ve Heart 84e-40b9-8 l Care PA 076-21b5a9 [facility]lee nn c384ec 2016-02-12 2016-02-122015 nullFlavo Comprehensi 4404 fa06-7 Memoria 13:36:00 13:36:00 MEDICARE r ve Heart 1j5-8725-7 l Care PA 35c-2es217 [facility]lee nn ec5f41 2016-02-12 2016-02-122015 nullFlavo Comprehensi ed71 6ff2-b Memoria 13:36:00 13:36:00 MEDICARE r ve Heart 423-4d69-b l Care PA 80b-dc23c5 [facility]lee nn 86a65b 2016-02-12 2016-02-122015 nullFlavo Comprehensi cb51 cfb9-e Memoria 13:36:00 13:36:00 MEDICARE r ve Heart fb4-4910-9 l Care PA 17f-3b19c9 [facility]lee nn ae4e46 2016-02-12 2016-02-122015 nullFlavo Comprehensi d97a 86bb-6 Memoria 13:36:00 13:36:00 MEDICARE r ve Heart 8z8-0857-8 l Care PA 322-e21ef6 [facility]lee nn 02b71f 2016-02-12 2016-02-122015 nullFlavo Comprehensi 04e5 b762-4 Memoria 13:36:00 13:36:00 MEDICARE r ve Heart 783-4e9c-8 l Care PA cde-57ddc8 [facility] nn [id number] 2016-02-12 2016-02-122015 nullFlavo Comprehensi 1842 2845-e Memoria 13:36:00 13:36:00 MEDICARE r ve Heart 215-407b-8 l Care PA r95-975xx4 [facility] nn 612369 5187-06-01 2016-02-122015 nullFlavo Comprehensi 97eb 22c0-9 Memoria 13:36:00 13:36:00 MEDICARE r ve Heart 37f-494f-a l Care PA b49-4x0ibq [facility] nn 26188f 2016-02-12 2016-02-122015 nullFlavo Comprehensi 1511 9779-5 Memoria 13:36:00 13:36:00 MEDICARE r ve Heart m10-3137-v l Care PA 200-79bf5c [facility] nn 3es186 2016-02-12 2016-02-12 2016 nullFlavo Comprehensi e0a4 d372-f Memoria 13:36:00 13:36:00 MEDICARE r ve Heart eed-4133-9 l Care PA ed9-e3a5b0 [facility]lee nn cd69b3 2016-02-12 2016-02-122015 nullFlavo Comprehensi d33d 5f4e-b Memoria 13:36:00 13:36:00 MEDICARE r ve Heart 42e-4732-a l Care PA 1bd-5cbeb5 [facility]lee nn c391f1 2016-02-12 2016-02-122015 nullFlavo Comprehensi f1aa 4bb3-a Memoria 13:36:00 13:36:00 MEDICARE r ve Heart 84e-40b9-8 l Care PA 076-21b5a9 [facility] nn c384ec 2016-02-12 2016-02-122015 nullFlavo Comprehensi 4404 fa06-7 Memoria 13:36:00 13:36:00 MEDICARE r ve Heart 4v3-2582-1 l Care PA 35c-6mu880 [facility]lee nn ec5f41 2016-02-12 2016-02-122015 nullFlavo Comprehensi ed71 6ff2-b Memoria 13:36:00 13:36:00 MEDICARE r ve Heart 423-4d69-b l Care PA 80b-dc23c5 [facility]lee nn 86a65b 2016-02-12 2016-02-122015 nullFlavo Comprehensi cb51 cfb9-e Memoria 13:36:00 13:36:00 MEDICARE r ve Heart fb4-4910-9 l Care PA 17f-3b19c9 [facility]lee nn ae4e46 2016-02-12 2016-02-122015 nullFlavo Comprehensi d97a 86bb-6 Memoria 13:36:00 13:36:00 MEDICARE r ve Heart 6o3-5480-1 l Care PA 322-e21ef6 Haylee nn 02b71f 2016-02-12 2016-02-122015 nullFlavo Comprehensi 04e5 b762-4 Memoria 13:36:00 13:36:00 MEDICARE r ve Heart 783-4e9c-8 l Care PA cde-57ddc8 [facility]lee nn h27904 2016-02-12 2016-02-122015 nullFlavo Comprehensi 97eb 22c0-9 Memoria 13:36:00 13:36:00 MEDICARE r ve Heart 37f-494f-a l Care PA z06-2v4wnn Haylee nn 51529t 2016-02-12 2016-02-122015 nullFlavo Comprehensi 1842 2845-e Memoria 13:36:00 13:36:00 MEDICARE r ve Heart 215-407b-8 l Care PA k12-390mx8 [facility] nn 680440 4042-06-01 2016-02-122015 nullFlavo Comprehensi ed71 6ff2-b Memoria 13:36:00 13:36:00 MEDICARE r ve Heart 423-4d69-b l Care PA 80b-dc23c5 [facility]lee nn 86a65b 2016-02-12 2016-02-122015 nullFlavo Comprehensi f1aa 4bb3-a Memoria 13:36:00 13:36:00 MEDICARE r ve Heart 84e-40b9-8 l Care PA 076-21b5a9 [facility] nn c384ec 2016-02-12 2016-02-122015 nullFlavo Comprehensi d33d 5f4e-b Memoria 13:36:00 13:36:00 MEDICARE r ve Heart 42e-4732-a l Care PA 1bd-5cbeb5 [facility]lee nn c391f1 2016-02-12 2016-02-122015 nullFlavo Comprehensi 1511 9779-5 Memoria 13:36:00 13:36:00 MEDICARE r ve Heart o50-6124-l l Care PA 200-79bf5c [facility]lee nn 7lx416 2016-02-12 2016-02-122015 nullFlavo Comprehensi e0a4 d372-f Memoria 13:36:00 13:36:00 MEDICARE r ve Heart eed-4133-9 l Care PA ed9-e3a5b0 [facility] nn cd69b3 2016-02-12 2016-02-122015 nullFlavo Comprehensi cb51 cfb9-e Memoria 13:36:00 13:36:00 MEDICARE r ve Heart fb4-4910-9 l Care PA 17f-3b19c9 [facility] nn ae4e46 2016-02-12 2016-02-122015 nullFlavo Comprehensi 4404 fa06-7 Memoria 13:36:00 13:36:00 MEDICARE r ve Heart 8q6-6373-3 l Care PA 35c-3kt395 [facility] nn ec5f41 2016-02-12 2016-02-122015 nullFlavo Comprehensi d97a 86bb-6 Memoria 13:36:00 13:36:00 MEDICARE r ve Heart 0i5-9276-1 l Care PA 322-e21ef6 [facility]lee nn 02b71f 2016-02-12 2016-02-122015 nullFlavo Comprehensi 04e5 b762-4 Memoria 13:36:00 13:36:00 MEDICARE r ve Heart 783-4e9c-8 l Care PA cde-57ddc8 [facility] nn g09069 2016-02-12 2016-02-12 Outpatient Comprehen Comprehensi 4 37418 eClinic 08:36:00 08:36:[facility] PA 2016-02-12 2016-02-12 Outpatient Comprehen Comprehensi 4 53375 eClinic 08:36:00 08:36:00 sive ve Heart alWor tn Heart Care PA Care PA 2016-01-01 2016-01-012015 nullFlavo Comprehensi 50e1 ff5a-b Memoria 05:20:00 05:20:00 MEDICARE r ve Heart v25-0432-y l Care PA 9m0-468mhu Haylee nn 805d5c 2016-01-01 2016-01-012015 nullFlavo Comprehensi 156c ebb7-8 Memoria 05:20:00 05:20:00 MEDICARE r ve Heart t65-0k9c-f l Care PA 6o2-4l808v [facility]lee nn e5e3f0 2016-01-01 2016-01-012015 nullFlavo Comprehensi 28e1 2c2d-b Memoria 05:20:00 05:20:00 MEDICARE r ve Heart 8ff-4952-a l Care PA f0w-3cn32x [facility]lee nn 3ddc5e 2016-01-01 2016-01-012015 nullFlavo Comprehensi 370f 3e03-a Memoria 05:20:00 05:20:00 MEDICARE r ve Heart 8e2-6hy5-0 l Care PA n78-mz42r2 [facility]lee nn 7eefb0 2016-01-01 2016-01-012015 nullFlavo Comprehensi 526e 106b-b Memoria 05:20:00 05:20:00 MEDICARE r ve Heart dcd-4fc9-9 l Care PA 323-54ddb4 [facility]lee nn 8bfef6 2016-01-01 2016-01-012015 nullFlavo Comprehensi afb1 892c-d Memoria 05:20:00 05:20:00 MEDICARE r ve Heart 182-4288-8 l Care PA 5d7-dhan04 [facility] nn c173d6 2016-01-01 2016-01-012015 nullFlavo Comprehensi 7b9a 6cc1-b Memoria 05:20:00 05:20:00 MEDICARE r ve Heart 72c-4b4a-9 l Care PA 498-87l577 [facility]lee nn 301a48 2016-01-01 2016-01-012015 nullFlavo Comprehensi 50e1 ff5a-b Memoria 05:20:00 05:20:00 MEDICARE r ve Heart x01-7010-m l Care PA 4s4-324utv Haylee nn 805d5c 2016-01-01 2016-01-012015 nullFlavo Comprehensi 156c ebb7-8 Memoria 05:20:00 05:20:00 MEDICARE r ve Heart c80-6j4p-h l Care PA 8h5-9t484p [facility] nn e5e3f0 2016-01-01 2016-01-012015 nullFlavo Comprehensi 28e1 2c2d-b Memoria 05:20:00 05:20:00 MEDICARE r ve Heart 8ff-4952-a l Care PA r1x-4qt13a [facility]lee nn 3ddc5e 2016-01-01 2016-01-012015 nullFlavo Comprehensi 370f 3e03-a Memoria 05:20:00 05:20:00 MEDICARE r ve Heart 0m7-3gc9-0 l Care PA y76-sk87x2 [facility]lee nn 7eefb0 2016-01-01 2016-01-012015 nullFlavo Comprehensi 526e 106b-b Memoria 05:20:00 05:20:00 MEDICARE r ve Heart dcd-4fc9-9 l Care PA 323-54ddb4 [facility]lee nn 8bfef6 2016-01-01 2016-01-012015 nullFlavo Comprehensi afb1 892c-d Memoria 05:20:00 05:20:00 MEDICARE r ve Heart 182-4288-8 l Care PA 2n9-wmbf95 [facility]lee nn c173d6 2016-01-01 2016-01-012015 nullFlavo Comprehensi 7b9a 6cc1-b Memoria 05:20:00 05:20:00 MEDICARE r ve Heart 72c-4b4a-9 l Care PA 498-82v298 [facility]lee nn 301a48 2016-01-01 2016-01-012015 nullFlavo Comprehensi 156c ebb7-8 Memoria 05:20:00 05:20:00 MEDICARE r ve Heart z98-6h9z-w l Care PA 5a1-6g879n [facility]lee nn e5e3f0 2016-01-01 2016-01-012015 nullFlavo Comprehensi 28e1 2c2d-b Memoria 05:20:00 05:20:00 MEDICARE r ve Heart 8ff-4952-a l Care PA d6y-8mu87l [facility] nn 3ddc5e 2016-01-01 2016-01-012015 nullFlavo Comprehensi afb1 892c-d Memoria 05:20:00 05:20:00 MEDICARE r ve Heart 182-4288-8 l Care PA 8j6-zzdq05 [facility] nn c173d6 2016-01-01 2016-01-012015 nullFlavo Comprehensi 7b9a 6cc1-b Memoria 05:20:00 05:20:00 MEDICARE r ve Heart 72c-4b4a-9 l Care PA 498-57h905 [facility]lee nn 301a48 2016-01-01 2016-01-012015 nullFlavo Comprehensi 50e1 ff5a-b Memoria 05:20:00 05:20:00 MEDICARE r ve Heart s14-9684-s l Care PA 5e7-275hij Haylee nn 805d5c 2016-01-01 2016-01-012015 nullFlavo Comprehensi 526e 106b-b Memoria 05:20:00 05:20:00 MEDICARE r ve Heart dcd-4fc9-9 l Care PA 323-54ddb4 [facility]lee nn 8bfef6 2016-01-01 2016-01-012015 nullFlavo Comprehensi 370f 3e03-a Memoria 05:20:00 05:20:00 MEDICARE r ve Heart 1d8-1pr2-9 l Care PA k59-[id number] Haylee nn [id number] 2016-01-01 2016-01-012015 nullFlavo Comprehensi 95eb d82d-3 Memoria 04:20:00 04:20:00 MEDICARE r ve Heart 41b-4b34-a l Care PA [id number] Haylee nn [id number] 2016-01-01 2016-01-012015 nullFlavo Comprehensi 83f0 2f25-d Memoria 04:20:00 04:20:00 MEDICARE r ve Heart ca8-4505-b l Care PA [id number] Haylee nn [id number] 2016-01-01 2016-01-012015 nullFlavo Comprehensi 14ab 6001-2 Memoria 04:20:00 04:20:00 MEDICARE r ve Heart 6ad-4cd0-b l Care [place] [id number] [facility] nn [id number] 2016-01-01 2016-01-012015 nullFlavo Comprehensi 0da3 e79e-0 Memoria 04:20:00 04:20:00 MEDICARE r ve Heart z55-92q0-c l Care PA [id number] Haylee nn [id number] 2016-01-01 2016-01-012015 nullFlavo Comprehensi 92ec 5c33-9 Memoria 04:20:00 04:20:00 MEDICARE r ve Heart t44-204g-6 l Care PA [id number] [facility] nn [id number] 2016-01-01 2016-01-012015 nullFlavo Comprehensi 159e 21f5-8 Memoria 04:20:00 04:20:00 MEDICARE r ve Heart 954-4a61-b l Care PA [id number] [facility] nn [id number] 2016-01-01 2016-01-012015 nullFlavo Comprehensi 6b5b 6c2d-5 Memoria 04:20:00 04:20:00 MEDICARE r ve Heart fde-469f-9 l Care PA [id number] Haylee nn [id number] 2016-01-01 2016-01-012015 nullFlavo Comprehensi 999a 1a40-3 Memoria 04:20:00 04:20:00 MEDICARE r ve Heart t8i-330a-0 l Care PA [id number] Haylee nn [id number] 2016-01-01 2016-01-012015 nullFlavo Comprehensi c8c6 1fb6-d Memoria 04:20:00 04:20:00 MEDICARE r ve Heart p86-9i42-6 l Care PA [id number] Haylee nn [id number] 2016-01-01 2016-01-012015 nullFlavo Comprehensi 1458 bfb2-6 Memoria 04:20:00 04:20:00 MEDICARE r ve Heart m68-5ho3-j l Care PA [id number] Haylee nn [id number] 2016-01-01 2016-01-012015 nullFlavo Comprehensi ade6 afb3-c Memoria 04:20:00 04:20:00 MEDICARE r ve Heart u3r-0f1k-9 l Care PA [id number] Haylee nn [id number] 2016-01-01 2016-01-012015 nullFlavo Comprehensi ac9a 8be4-5 Memoria 04:20:00 04:20:00 MEDICARE r ve Heart n1k-5931-7 l Care PA [id number] Haylee nn [id number] 2016-01-01 2016-01-012015 nullFlavo Comprehensi 95eb d82d-3 Memoria 04:20:00 04:20:00 MEDICARE r ve Heart 41b-4b34-a l Care PA [id number] Haylee nn fe2c92 2016-01-01 2016-01-012015 nullFlavo Comprehensi 83f0 2f25-d Memoria 04:20:00 04:20:00 MEDICARE r ve Heart ca8-4505-b l Care PA [id number] Haylee nn [id number] 2016-01-01 2016-01-012015 nullFlavo Comprehensi 14ab 6001-2 Memoria 04:20:00 04:20:00 MEDICARE r ve Heart 6ad-4cd0-b l Care PA [id number] Haylee nn [id number] 2016-01-01 2016-01-012015 nullFlavo Comprehensi 0da3 e79e-0 Memoria 04:20:00 04:20:00 MEDICARE r ve Heart b22-69w6-w l Care PA [id number] Haylee nn 42a61b 2016-01-01 2016-01-012015 nullFlavo Comprehensi 92ec 5c33-9 Memoria 04:20:00 04:20:00 MEDICARE r ve Heart w98-914x-0 l Care PA [id number] Haylee nn [id number] 2016-01-01 2016-01-012015 nullFlavo Comprehensi 159e 21f5-8 Memoria 04:20:00 04:20:00 MEDICARE r ve Heart 954-4a61-b l Care PA [id number] Haylee nn [id number] 2016-01-01 2016-01-012015 nullFlavo Comprehensi 6b5b 6c2d-5 Memoria 04:20:00 04:20:00 MEDICARE r ve Heart fde-469f-9 l Care PA [id number]-[id number] Haylee nn [id number] 2016-01-01 2016-01-012015 nullFlavo Comprehensi 999a 1a40-3 Memoria 04:20:00 04:20:00 MEDICARE r ve Heart c0g-670y-2 l Care PA [id number] Haylee nn [id number] 2016-01-01 2016-01-012015 nullFlavo Comprehensi c8c6 1fb6-d Memoria 04:20:00 04:20:00 MEDICARE r ve Heart c71-8r06-4 l Care PA [id number] Haylee nn ccd6c6 2016-01-01 2016-01-012015 nullFlavo Comprehensi 1458 bfb2-6 Memoria 04:20:00 04:20:00 MEDICARE r ve Heart q02-5qe0-g l Care PA [id number] Haylee nn [id number] 2016-01-01 2016-01-012015 nullFlavo Comprehensi ade6 afb3-c Memoria 04:20:00 04:20:00 MEDICARE r ve Heart t4n-4b0q-4 l Care PA [id number] Haylee nn [id number] 2016-01-01 2016-01-012015 nullFlavo Comprehensi ac9a 8be4-5 Memoria 04:20:00 04:20:00 MEDICARE r ve Heart r9l-6315-9 l Care PA [id number] Haylee nn [id number] 2016-01-01 2016-01-012015 nullFlavo Comprehensi 0da3 e79e-0 Memoria 04:20:00 04:20:00 MEDICARE r ve Heart t11-66n5-r l Care PA [id number] Haylee nn 42a61b 2016-01-01 2016-01-012015 nullFlavo Comprehensi 83f0 2f25-d Memoria 04:20:00 04:20:00 MEDICARE r ve Heart ca8-4505-b l Care PA [id number] Haylee nn [id number] 2016-01-01 2016-01-012015 nullFlavo Comprehensi 95eb d82d-3 Memoria 04:20:00 04:20:00 MEDICARE r ve Heart 41b-4b34-a l Care PA [id number] Haylee nn fe2c92 2016-01-01 2016-01-012015 nullFlavo Comprehensi c8c6 1fb6-d Memoria 04:20:00 04:20:00 MEDICARE r ve Heart b15-2h55-5 l Care PA [id number] Haylee nn ccd6c6 2016-01-01 2016-01-012015 nullFlavo Comprehensi 6b5b 6c2d-5 Memoria 04:20:00 04:20:00 MEDICARE r ve Heart fde-469f-9 l Care PA [id number]-[id number] Haylee nn [id number] 2016-01-01 2016-01-012015 nullFlavo Comprehensi 159e 21f5-8 Memoria 04:20:00 04:20:00 MEDICARE r ve Heart 954-4a61-b l Care PA [id number] Haylee nn [id number] 2016-01-01 2016-01-012015 nullFlavo Comprehensi 14ab 6001-2 Memoria 04:20:00 04:20:00 MEDICARE r ve Heart 6ad-4cd0-b l Care PA [id number] Haylee nn c5a6a4 2016-01-01 2016-01-012015 nullFlavo Comprehensi 92ec 5c33-9 Memoria 04:20:00 04:20:00 MEDICARE [facility] v93-249i-5 l Care [place] [id number] Haylee nn 434a17 2016-01-01 2016-01-012015 nullFlavo Comprehensi 1458 bfb2-6 Memoria 04:20:00 04:20:00 MEDICARE r ve Heart m18-4ju9-g l Care PA 68f-7362bc Haylee nn e13dd7 2016-01-01 2016-01-012015 nullFlavo Comprehensi 999a 1a40-3 Memoria 04:20:00 04:20:00 MEDICARE r ve Heart a8u-387x-1 l Care PA f54-d1y3tc Haylee nn 1kg957 2016-01-01 2016-01-012015 nullFlavo Comprehensi ade6 afb3-c Memoria 04:20:00 04:20:00 MEDICARE r ve Heart j5s-8c5b-7 l Care PA [id number] Haylee nn 01e2c7 2016-01-01 2016-01-01 2016 nullFlavo Comprehensi ac9a 8be4-5 Memoria 04:20:00 04:20:00 MEDICARE r ve Heart o5y-2267-2 l Care PA baf-257c3d Haylee nn 87e4e5 2015-12-31 2015-12-31 Outpatient Comprehen Comprehensi 4 [id number] [facility]inic 23:20:00 23:20:00 sive ve Heart alWor tn Heart Care PA Care PA 2015-12-31 2015-12-31 Outpatient Comprehen Comprehensi 4 36798 eClinic 23:20:00 23:20:00 sive ve Heart alWor tn Heart Care PA Care PA 2015-05-27 2015-05-27 Rx nullFlavo Comprehensi 38ed 9910-7 Memoria 22:58:00 22:58:00 r ve Heart 312-4aa2-8 l Care PA v73-7sjjmw Haylee nn 747353 3310-09-14 2015-05-27 Rx nullFlavo Comprehensi 24e1 3e23-3 Memoria 22:58:00 22:58:00 r ve Heart u1u-6t82-0 l Care PA b78-078816 Haylee nn c99b48 2015-05-27 2015-05-27 Rx nullFlavo Comprehensi 4051 9acb-d Memoria 22:58:00 22:58:00 r ve Heart 717-4bac-b l Care PA 7x3-20816x Haylee nn 4c85ce 2015-05-27 2015-05-27 Rx nullFlavo Comprehensi b3ea d44a-e Memoria 22:58:00 22:58:00 r ve Heart e11-55w0-1 l Care PA 3ed-g61297 Haylee nn 934bc8 2015-05-27 2015-05-27 Rx nullFlavo Comprehensi aa33 8b73-c Memoria 22:58:00 22:58:00 r ve Heart 3bc-4feb-9 l Care PA 774-1af5ba Haylee nn 8fbde3 2015-05-27 2015-05-27 Rx nullFlavo Comprehensi f761 a028-1 Memoria 22:58:00 22:58:00 r ve Heart v5z-2117-4 l Care PA 5t2-a91081 Haylee nn 31g427 2015-05-27 2015-05-27 Rx nullFlavo Comprehensi 4c4e 4275-1 Memoria 22:58:00 22:58:00 r ve Heart w51-5809-c l Care PA r1q-pt772n Haylee nn 7c9b01 2015-05-27 2015-05-27 Rx nullFlavo Comprehensi 38ed 9910-7 Memoria 22:58:00 22:58:00 r ve Heart 312-4aa2-8 l Care PA r66-8oygrs Haylee nn 454677 1667-09-14 2015-05-27 Rx nullFlavo Comprehensi 24e1 3e23-3 Memoria 22:58:00 22:58:00 r ve Heart z0i-0a65-7 l Care PA u42-539340 [facility] nn c99b48 2015-05-27 2015-05-27 Rx nullFlavo Comprehensi 4051 9acb-d Memoria 22:58:00 22:58:00 r ve Heart 717-4bac-b l Care PA 7u3-98113f Haylee nn 4c85ce 2015-05-27 2015-05-27 Rx nullFlavo Comprehensi b3ea d44a-e Memoria 22:58:00 22:58:00 r ve Heart x24-06y4-2 l Care PA 3ed-l87318 Haylee nn 934bc8 2015-05-27 2015-05-27 Rx nullFlavo Comprehensi aa33 8b73-c Memoria 22:58:00 22:58:00 r ve Heart 3bc-4feb-9 l Care PA 774-1af5ba Haylee nn 8fbde3 2015-05-27 2015-05-27 Rx nullFlavo Comprehensi f761 a028-1 Memoria 22:58:00 22:58:00 r ve Heart i5u-4099-1 l Care PA 1y5-e15891 Haylee nn 55d715 2015-05-27 2015-05-27 Rx nullFlavo Comprehensi 4c4e 4275-1 [facility] 22:58:00 22:58:00 r ve Heart i67-2403-q l Care PA e8y-jd400m Haylee nn 7c9b01 2015-05-27 2015-05-27 Rx nullFlavo Comprehensi 24e1 3e23-3 Memoria 22:58:00 22:58:00 r ve Heart g4f-1x26-2 l Care PA h17-431716 Haylee nn c99b48 2015-05-27 2015-05-27 Rx nullFlavo Comprehensi 4051 9acb-d Mem[facility] 22:58:00 22:58:00 r ve Heart 717-4bac-b l Care PA 8b3-10686q Haylee nn 4c85ce 2015-05-27 2015-05-27 Rx nullFlavo Comprehensi f761 a028-1 Mem[facility] 22:58:00 22:58:00 r ve Heart g0e-6308-0 l Care PA 6c2-y18928 Haylee nn 22w474 2015-05-27 2015-05-27 Rx nullFlavo Comprehensi 4c4e 4275-1 Memoria 22:58:00 22:58:00 r ve Heart m83-7130-l l Care PA t4u-kz333c Haylee nn 7c9b01 2015-05-27 2015-05-27 Rx nullFlavo Comprehensi 38ed 9910-7 Memoria 22:58:00 22:58:00 r ve Heart 312-4aa2-8 l Care PA z30-0ukvoy Haylee nn 166097 1358-09-14 2015-05-27 Rx nullFlavo Comprehensi aa33 8b73-c Memoria 22:58:00 22:58:00 r ve Heart 3bc-4feb-9 l Care PA 774-1af5ba Haylee nn 8fbde3 2015-05-27 2015-05-27 Rx nullFlavo Comprehensi b3ea d44a-e Memoria 22:58:00 22:58:00 r ve Heart c54-89g4-1 l Care PA 3ed-i72940 Haylee nn 934bc8 2015-05-27 2015-05-27 Rx nullFlavo Comprehensi dc7c 491b-2 Memoria 21:58:00 21:58:00 r ve Heart 91b-482f-a l Care PA ebe-2778b4 Haylee nn 6a9ee8 2015-05-27 2015-05-27 Rx nullFlavo Comprehensi a6c8 24fd-9 Memoria 21:58:00 21:58:00 r ve Heart 5c0-942o-y l Care PA 492-e9cedf Haylee nn 10ab11 2015-05-27 2015-05-27 Rx nullFlavo Comprehensi 9435 2a62-3 Memoria 21:58:00 21:58:00 r ve Heart q25-0c40-g l Care PA 0g8-1sq0gr Haylee nn hy7679 2015-05-27 2015-05-27 Rx nullFlavo Comprehensi 697e 8343-5 Memoria 21:58:00 21:58:00 r ve Heart 403-4d93-a l Care PA 1c6-1053ks Haylee nn 50c81f 2015-05-27 2015-05-27 Rx nullFlavo Comprehensi d703 1915-2 Memoria 21:58:00 21:58:00 r ve Heart f18-453v-v l Care PA 17e-aac87a Haylee nn 19afa3 2015-05-27 2015-05-27 Rx nullFlavo Comprehensi 4c1a 6772-6 Memoria 21:58:00 21:58:00 r ve Heart 4p2-7568-9 l Care PA 940-071374 Haylee nn d31cd5 2015-05-27 2015-05-27 Rx nullFlavo Comprehensi fe2a 320a-5 Memoria 21:58:00 21:58:00 r ve Heart bd6-4324-9 l Care PA 776-o81383 Haylee nn 577c75 2015-05-27 2015-05-27 Rx nullFlavo Comprehensi 02fe da25-f Memoria 21:58:00 21:58:00 r ve Heart 7w6-39av-p l Care PA l7b-0wcn15 Haylee nn ed7f2a 2015-05-27 2015-05-27 Rx nullFlavo Comprehensi f97d 6a74-4 Memoria 21:58:00 21:58:00 r ve Heart v66-3q1m-i l Care PA 39f-150bdf Haylee nn 47ff79 2015-05-27 2015-05-27 Rx nullFlavo Comprehensi 4125 411a-6 Memoria 21:58:00 21:58:00 r ve Heart 51c-4ffc-b l Care PA 344-blc603 Haylee nn 8c7e29 2015-05-27 2015-05-27 Rx nullFlavo Comprehensi 0b1b 0c09-1 Memoria 21:58:00 21:58:00 r ve Heart 7k6-440x-1 l Care PA m98-3m667n Haylee nn 3cdd92 2015-05-27 2015-05-27 Rx nullFlavo Comprehensi 90b1 afa6-7 Memoria 21:58:00 21:58:00 r ve Heart c36-2065-i l Care PA u0q-642v4j Haylee nn c3b5b5 2015-05-27 2015-05-27 Rx nullFlavo Comprehensi dc7c 491b-2 Memoria 21:58:00 21:58:00 r ve Heart 91b-482f-a l Care PA ebe-2778b4 Haylee nn 6a9ee8 2015-05-27 2015-05-27 Rx nullFlavo Comprehensi a6c8 24fd-9 Memoria 21:58:00 21:58:00 r ve Heart 2e8-206f-j l Care PA 492-e9cedf [facility] nn 10ab11 2015-05-27 2015-05-27 Rx nullFlavo Comprehensi 9435 2a62-3 Memoria 21:58:00 21:58:00 r ve Heart n99-2u89-g l Care PA 0x9-8bq0bn [facility] nn cx0958 2015-05-27 2015-05-27 Rx nullFlavo Comprehensi 697e 8343-5 Memoria 21:58:00 21:58:00 r ve Heart 403-4d93-a l Care PA 4l8-3915cc [facility] nn 50c81f 2015-05-27 2015-05-27 Rx nullFlavo Comprehensi d703 1915-2 Memoria 21:58:00 21:58:00 r ve Heart p57-115h-w l Care PA 17e-aac87a [facility] nn 19afa3 2015-05-27 2015-05-27 Rx nullFlavo Comprehensi 4c1a 6772-6 Memoria 21:58:00 21:58:00 r ve Heart 7o3-0187-1 l Care PA 940-037633 [facility] nn d31cd5 2015-05-27 2015-05-27 Rx nullFlavo Comprehensi fe2a 320a-5 Memoria 21:58:00 21:58:00 r ve Heart bd6-4324-9 l Care PA 776-s02754 [facility] nn 577c75 2015-05-27 2015-05-27 Rx nullFlavo Comprehensi 02fe da25-f Memoria 21:58:00 21:58:00 r ve Heart 8r4-65vh-e l Care PA d6m-8oyl77 [facility] nn ed7f2a 2015-05-27 2015-05-27 Rx nullFlavo Comprehensi f97d 6a74-4 Memoria 21:58:00 21:58:00 r ve Heart o37-8t0b-k l Care PA 39f-150bdf [facility] nn 47ff79 2015-05-27 2015-05-27 Rx nullFlavo Comprehensi 4125 411a-6 Memoria 21:58:00 21:58:00 r ve Heart 51c-4ffc-b l Care PA 344-nrn614 Haylee nn 8c7e29 2015-05-27 2015-05-27 Rx nullFlavo Comprehensi 0b1b 0c09-1 Memoria 21:58:00 21:58:00 r ve Heart 7h0-325d-5 l Care PA l54-3f787n Haylee nn 3cdd92 2015-05-27 2015-05-27 Rx nullFlavo Comprehensi 90b1 afa6-7 Memoria 21:58:00 21:58:00 r ve Heart c76-6855-t l Care PA o4y-201c0g Haylee nn c3b5b5 2015-05-27 2015-05-27 Rx nullFlavo Comprehensi 697e 8343-5 Memoria 21:58:00 21:58:00 r ve Heart 403-4d93-a l Care PA 9d1-7232wm Haylee nn 50c81f 2015-05-27 2015-05-27 Rx nullFlavo Comprehensi a6c8 24fd-9 Memoria 21:58:00 21:58:00 r ve Heart 1r9-062v-q l Care PA 492-e9cedf Haylee nn 10ab11 2015-05-27 2015-05-27 Rx nullFlavo Comprehensi dc7c 491b-2 Memoria 21:58:00 21:58:00 r ve Heart 91b-482f-a l Care PA ebe-2778b4 [facility] nn 6a9ee8 2015-05-27 2015-05-27 Rx nullFlavo Comprehensi f97d 6a74-4 Memoria 21:58:00 21:58:00 r ve Heart x76-9t5v-n l Care PA 39f-150bdf [facility] nn 47ff79 2015-05-27 2015-05-27 Rx nullFlavo Comprehensi fe2a 320a-5 Memoria 21:58:00 21:58:00 r ve Heart bd6-4324-9 l Care PA 776-c63785 [facility] nn 577c75 2015-05-27 2015-05-27 Rx nullFlavo Comprehensi 4c1a 6772-6 Memoria 21:58:00 21:58:00 r ve Heart 7f4-2474-7 l Care PA 940-108665 [facility] nn d31cd5 2015-05-27 2015-05-27 Rx nullFlavo Comprehensi 9435 2a62-3 Memoria 21:58:00 21:58:00 r ve Heart k24-2v73-y l Care PA 2l1-9tg2yx [facility] nn rf5809 2015-05-27 2015-05-27 Rx nullFlavo Comprehensi d703 1915-2 Memoria 21:58:00 21:58:00 r ve Heart o99-051f-p l Care PA 17e-aac87a [facility] nn 19afa3 2015-05-27 2015-05-27 Rx nullFlavo Comprehensi 4125 411a-6 Memoria 21:58:00 21:58:00 r ve Heart 51c-4ffc-b l Care PA 344-ypi096 [facility] nn 8c7e29 2015-05-27 2015-05-27 Rx nullFlavo Comprehensi 02fe da25-f Memoria 21:58:00 21:58:00 r ve Heart 5i3-13ia-y l Care PA r4p-3pan81 [facility] nn ed7f2a 2015-05-27 2015-05-27 Rx nullFlavo Comprehensi 0b1b 0c09-1 Memoria 21:58:00 21:58:00 r ve Heart 3t6-212a-8 l Care PA g71-6r938o [facility] nn 3cdd92 2015-05-27 2015-05-27 Rx nullFlavo Comprehensi 90b1 afa6-7 Memoria 21:58:00 21:58:00 r ve Heart u63-2206-i l Care PA f0b-404c0l [facility] nn c3b5b5 2015-02-18 2015-02-19 EC [facility] [id number] Memoria 19:49:00 01:18:00 Emergency r [place] 00 [facility] 2015-02-18 2015-02-19 EC [facility] [id number] Memoria 19:49:00 01:18:00 Emergency r [place] 00 [facility] 2015-02-18 2015-02-19 EC [facility] [id number] 275 Memoria 19:49:00 01:18:00 Emergency r [place] 00 [facility] 2015-02-18 2015-02-18 Outpatient [place], 2.16.840. [id number] . [id number] 14:49:00 20:18:00 Dorie Gab [id number] 5.0.894 23 5223-06-08 2015-02-18 Outpatient [place], 2.16.840. [id number] . [id number] 14:49:00 20:18:00 Dorie E [id number]. [id number] [id number] 5.0.008 35 5494-03-18 2014-11-28 Unknown nullFlavo Comprehensi 4314 3faa-a Memoria 21:00:00 21:00:00 r ve Heart 30a-4920-8 l Care PA g87-cfyu5l Haylee nn 4d8fc6 2014-11-28 2014-11-28 Unknown nullFlavo Comprehensi 070f 8eef-7 Memoria 21:00:00 21:00:00 r ve Heart fd1-4bc7-9 l Care PA 74c-e6c2d0 Haylee nn 7d1786 2014-11-28 2014-11-28 Unknown nullFlavo Comprehensi ac37 98d6-c Memoria 21:00:00 21:00:00 r ve Heart 3h8-8179-w l Care PA 27e-fa50c2 Haylee nn d1f58b 2014-11-28 2014-11-28 Unknown nullFlavo Comprehensi fd20 08be-0 Memoria 21:00:00 21:00:00 r ve Heart 2j4-2z51-m l Care PA u13-08h0x0 Haylee nn 19cad0 2014-11-28 2014-11-28 Unknown nullFlavo Comprehensi 1f02 5b44-6 Memoria 21:00:00 21:00:00 r ve Heart fac-4822-8 l Care PA 364-da9b93 Haylee nn 3eb16e 2014-11-28 2014-11-28 Unknown nullFlavo Comprehensi 6b6d b225-5 Memoria 21:00:00 21:00:00 r ve Heart 21a-4684-b l Care PA f6w-169i3v Haylee nn 145449 2084-03-18 2014-11-28 Unknown nullFlavo Comprehensi e859 96b4-f Memoria 21:00:00 21:00:00 r ve Heart 77d-4cf3-9 l Care PA 522-bb7e93 Haylee nn 62dd6d 2014-11-28 2014-11-28 Unknown nullFlavo Comprehensi 4314 3faa-a Memoria 21:00:00 21:00:00 r ve Heart 30a-4920-8 l Care PA p53-pnjo5g Haylee nn 4d8fc6 2014-11-28 2014-11-28 Unknown nullFlavo Comprehensi 070f 8eef-7 Memoria 21:00:00 21:00:00 r ve Heart fd1-4bc7-9 l Care PA 74c-e6c2d0 [facility] nn 4l2442 2014-11-28 2014-11-28 Unknown nullFlavo Comprehensi ac37 98d6-c Memoria 21:00:00 21:00:00 r ve Heart 2y5-9520-g l Care PA 27e-fa50c2 Haylee nn d1f58b 2014-11-28 2014-11-28 Unknown nullFlavo Comprehensi fd20 08be-0 Memoria 21:00:00 21:00:00 r ve Heart 4s0-8v89-h l Care PA e16-07a4d6 Haylee nn 19cad0 2014-11-28 2014-11-28 Unknown nullFlavo Comprehensi 1f02 5b44-6 Memoria 21:00:00 21:00:00 r ve Heart fac-4822-8 l Care PA 364-da9b93 Haylee nn 3eb16e 2014-11-28 2014-11-28 Unknown nullFlavo Comprehensi 6b6d b225-5 Memoria 21:00:00 21:00:00 r ve Heart 21a-4684-b l Care PA x7e-566e1u Haylee nn 566678 7963-03-18 2014-11-28 Unknown nullFlavo Comprehensi e859 96b4-f Memoria 21:00:00 21:00:00 r ve Heart 77d-4cf3-9 l Care PA 522-bb7e93 Haylee nn 62dd6d 2014-11-28 2014-11-28 Unknown nullFlavo Comprehensi 070f 8eef-7 Memoria 21:00:00 21:00:00 r ve Heart fd1-4bc7-9 l Care PA 74c-e6c2d0 Haylee nn 6d9747 2014-11-28 2014-11-28 Unknown nullFlavo Comprehensi ac37 98d6-c Memoria 21:00:00 21:00:00 r ve Heart 2v1-8116-r l Care PA 27e-fa50c2 Haylee nn d1f58b 2014-11-28 2014-11-28 Unknown nullFlavo Comprehensi 6b6d b225-5 Memoria 21:00:00 21:00:00 r ve Heart 21a-4684-b l Care PA b0s-444o8u [facility] nn 666002 2767-03-18 2014-11-28 Unknown nullFlavo Comprehensi e859 96b4-f Memoria 21:00:00 21:00:00 r ve Heart 77d-4cf3-9 l Care PA 522-bb7e93 [facility] nn 62dd6d 2014-11-28 2014-11-28 Unknown nullFlavo Comprehensi 4314 3faa-a Memoria 21:00:00 21:00:00 r ve Heart 30a-4920-8 l Care PA l58-eswj4k Haylee nn 4d8fc6 2014-11-28 2014-11-28 Unknown nullFlavo Comprehensi 1f02 5b44-6 Memoria 21:00:00 21:00:00 r ve Heart fac-4822-8 l Care PA 364-da9b93 [facility] nn 3eb16e 2014-11-28 2014-11-28 Unknown nullFlavo Comprehensi fd20 08be-0 Memoria 21:00:00 21:00:00 r ve Heart 4p5-3a23-h l Care PA y91-26z2m9 Haylee nn 19cad0 2014-11-28 2014-11-28 Unknown nullFlavo Comprehensi 1049 f8ae-3 Memoria 20:00:00 20:00:00 r ve Heart 0c4-53hm-0 l Care PA g30-esc57q Haylee nn e07da0 2014-11-28 2014-11-28 Unknown nullFlavo Comprehensi e6ce a2fc-9 Memoria 20:00:00 20:00:00 r ve Heart 4w7-1s3q-5 l Care PA 5c2-q30582 Haylee nn 1cdf15 2014-11-28 2014-11-28 Unknown nullFlavo Comprehensi 0432 798a-0 Memoria 20:00:00 20:00:00 r ve Heart 562-43b4-a l Care PA j95-9207y1 Haylee nn r40565 2014-11-28 2014-11-28 Unknown nullFlavo Comprehensi 3bde a484-b Memoria 20:00:00 20:00:00 r ve Heart p3i-369k-k l Care PA 8fe-dbe9fd Haylee nn 41fecd 2014-11-28 2014-11-28 Unknown nullFlavo Comprehensi 431b cfde-5 Memoria 20:00:00 20:00:00 r ve Heart v79-2578-6 l Care PA s44-614gyy Haylee nn 2572ef 2014-11-28 2014-11-28 Unknown nullFlavo Comprehensi b638 516b-4 Memoria 20:00:00 20:00:00 r ve Heart 258-467d-b l Care PA 9h7-6z7n47 [facility] nn c446e1 2014-11-28 2014-11-28 Unknown nullFlavo Comprehensi 8b0e 18e8-8 Memoria 20:00:00 20:00:00 r ve Heart 813-4e4e-b l Care PA e42-8o7595 [facility] nn 490d3a 2014-11-28 2014-11-28 Unknown nullFlavo Comprehensi f77c eb7a-f Memoria 20:00:00 20:00:00 r ve Heart 933-447e-b l Care PA 96f-o91241 Haylee nn b255a3 2014-11-28 2014-11-28 Unknown nullFlavo Comprehensi 5bbf 2cf7-d Memoria 20:00:00 20:00:00 r ve Heart f43-96f9-5 l Care PA 226-18f58c [facility] nn 322b2e 2014-11-28 2014-11-28 Unknown nullFlavo Comprehensi c49e b2b2-a Memoria 20:00:00 20:00:00 r ve Heart c8h-187h-8 l Care PA 7c2-1t2561 [facility] nn 34k920 2014-11-28 2014-11-28 Unknown nullFlavo Comprehensi e3b6 958a-e Memoria 20:00:00 20:00:00 r ve Heart 0ec-491d-8 l Care PA 0l9-23hq6g [facility] nn t7r170 2014-11-28 2014-11-28 Unknown nullFlavo Comprehensi c522 4729-2 Memoria 20:00:00 20:00:00 r ve Heart 93d-4f17-8 l Care PA 35a-c7e1bb [facility] nn 8jk307 2014-11-28 2014-11-28 Unknown nullFlavo Comprehensi 1049 f8ae-3 Memoria 20:00:00 20:00:00 r ve Heart 7y8-96wl-5 l Care PA x58-gzm28z [facility] nn e07da0 2014-11-28 2014-11-28 Unknown nullFlavo Comprehensi e6ce a2fc-9 Memoria 20:00:00 20:00:00 r ve Heart 7u8-1p7q-5 l Care PA 9x0-a94951 [facility] nn 1cdf15 2014-11-28 2014-11-28 Unknown nullFlavo Comprehensi 0432 798a-0 Memoria 20:00:00 20:00:00 r ve Heart 562-43b4-a l Care PA i02-0060j8 [facility] nn l98865 2014-11-28 2014-11-28 Unknown nullFlavo Comprehensi 3bde a484-b Memoria 20:00:00 20:00:00 r ve Heart k4v-043o-r l Care PA 8fe-dbe9fd [facility] nn 41fecd 2014-11-28 2014-11-28 Unknown nullFlavo Comprehensi 431b cfde-5 Memoria 20:00:00 20:00:00 r ve Heart d05-5678-8 l Care PA g82-799gcy [facility] nn 2572ef 2014-11-28 2014-11-28 Unknown nullFlavo Comprehensi b638 516b-4 Memoria 20:00:00 20:00:00 r ve Heart 258-467d-b l Care PA 2w6-3d1b24 Haylee nn c446e1 2014-11-28 2014-11-28 Unknown nullFlavo Comprehensi 8b0e 18e8-8 Memoria 20:00:00 20:00:00 r ve Heart 813-4e4e-b l Care PA w25-3e4618 Haylee nn 490d3a 2014-11-28 2014-11-28 Unknown nullFlavo Comprehensi f77c eb7a-f Memoria 20:00:00 20:00:00 r ve Heart 933-447e-b l Care PA 96f-r11269 Haylee nn b255a3 2014-11-28 2014-11-28 Unknown nullFlavo Comprehensi 5bbf 2cf7-d Memoria 20:00:00 20:00:00 r ve Heart o45-72h5-4 l Care PA 226-18f58c Haylee nn 322b2e 2014-11-28 2014-11-28 Unknown nullFlavo Comprehensi c49e b2b2-a Memoria 20:00:00 20:00:00 r ve Heart l0u-165c-6 l Care PA 9e5-6g7887 Haylee nn 26p965 2014-11-28 2014-11-28 Unknown nullFlavo Comprehensi e3b6 958a-e Memoria 20:00:00 20:00:00 r ve Heart 0ec-491d-8 l Care PA 4a0-64eh8h Haylee nn g5u628 2014-11-28 2014-11-28 Unknown nullFlavo Comprehensi c522 4729-2 Memoria 20:00:00 20:00:00 r ve Heart 93d-4f17-8 l Care PA 35a-c7e1bb Haylee nn 9sd812 2014-11-28 2014-11-28 Unknown nullFlavo Comprehensi 3bde a484-b Memoria 20:00:00 20:00:00 r ve Heart e2a-465c-j l Care PA 8fe-dbe9fd Haylee nn 41fecd 2014-11-28 2014-11-28 Unknown nullFlavo Comprehensi e6ce a2fc-9 Memoria 20:00:00 20:00:00 r ve Heart 2p4-4v0h-1 l Care PA 3f3-x70030 Haylee nn 1cdf15 2014-11-28 2014-11-28 Unknown nullFlavo Comprehensi 1049 f8ae-3 Memoria 20:00:00 20:00:00 r ve Heart 5f9-98xu-7 l Care PA t87-zvv90h [facility] nn e07da0 2014-11-28 2014-11-28 Unknown nullFlavo Comprehensi 5bbf 2cf7-d Memoria 20:00:00 20:00:00 r ve Heart t40-67l8-5 l Care PA 226-18f58c Haylee nn 322b2e 2014-11-28 2014-11-28 Unknown nullFlavo Comprehensi 8b0e 18e8-8 Memoria 20:00:00 20:00:00 r ve Heart 813-4e4e-b l Care PA q00-8n3456 [facility] nn 490d3a 2014-11-28 2014-11-28 Unknown nullFlavo Comprehensi b638 516b-4 Memoria 20:00:00 20:00:00 r ve Heart 258-467d-b l Care PA 1p0-4g2h21 [facility] nn c446e1 2014-11-28 2014-11-28 Unknown nullFlavo Comprehensi 0432 798a-0 Memoria 20:00:00 20:00:00 r ve Heart 562-43b4-a l Care PA x41-7497h8 [facility] nn n17239 2014-11-28 2014-11-28 Unknown nullFlavo Comprehensi 431b cfde-5 Memoria 20:00:00 20:00:00 r ve Heart l69-3395-3 l Care PA v86-623onb [facility] nn 2572ef 2014-11-28 2014-11-28 Unknown nullFlavo Comprehensi c49e b2b2-a Memoria 20:00:00 20:00:00 r ve Heart h9a-560h-5 l Care PA 1n9-1s9850 [facility] nn 45s802 2014-11-28 2014-11-28 Unknown nullFlavo Comprehensi f77c eb7a-f Memoria 20:00:00 20:00:00 r ve Heart 933-447e-b l Care PA [id number]-v44646 Haylee nn b255a3 2014-11-28 2014-11-28 Unknown nullFlavo Comprehensi e3b6 958a-e Memoria 20:00:00 20:00:00 r ve Heart 0ec-491d-8 l Care PA 0o1-65yh1e Haylee nn e2o203 2014-11-28 2014-11-28 Unknown nullFlavo Comprehensi c522 4729-2 Memoria 20:00:00 20:00:00 r ve Heart 93d-4f17-8 l Care PA 35a-c7e1bb Haylee nn 3vl071 2014-10-26 2014-10-26 Unknown nullFlavo Comprehensi 5ad8 2f83-4 Memoria 16:34:00 16:34:00 r ve Heart i1h-5nty-2 l Care PA 28e-289816 Haylee nn 0c227i 2014-10-26 2014-10-26 Unknown nullFlavo Comprehensi 7bde c26f-c Memoria 16:34:00 16:34:00 r ve Heart 055-457d-9 l Care PA 5fc-29e2ff Haylee nn 81fd93 2014-10-26 2014-10-26 Unknown nullFlavo Comprehensi bf3b f735-1 [facility]oria 16:34:00 16:34:00 r ve Heart ea9-4727-8 l Care PA eee-a97650 Hyalee nn 5d9a9c 2014-10-26 2014-10-26 Unknown nullFlavo Comprehensi 5fcc 3749-7 Memoria 16:34:00 16:34:00 r ve Heart ee3-423e-9 l Care PA [id number] Haylee nn 36ae3b 2014-10-26 2014-10-26 Unknown nullFlavo Comprehensi 8c7e 7418-a Memoria 16:34:00 16:34:00 r ve Heart 6b3-68j9-8 l Care PA 3ec-9dcd24 Haylee nn 6q3701 2014-10-26 2014-10-26 Unknown nullFlavo Comprehensi 12a1 6011-e Memoria 16:34:00 16:34:00 r ve Heart 6ce-4fdf-9 l Care PA 60a-ab5dd8 Haylee nn 9f3451 2014-10-26 2014-10-26 Unknown nullFlavo Comprehensi 4db8 527c-2 Memoria 16:34:00 16:34:00 r ve Heart 48b-48ae-8 l Care PA 628-13a519 Haylee nn 0fff73 2014-10-26 2014-10-26 Unknown nullFlavo Comprehensi 5ad8 2f83-4 Memoria 16:34:00 16:34:00 r ve Heart e2u-2hle-4 l Care PA 28e-198755 Haylee nn 4i704r 2014-10-26 2014-10-26 Unknown nullFlavo Comprehensi 7bde c26f-c Memoria 16:34:00 16:34:00 r ve Heart 055-457d-9 l Care PA 5fc-29e2ff Haylee nn 81fd93 2014-10-26 2014-10-26 Unknown nullFlavo Comprehensi bf3b f735-1 Memoria 16:34:00 16:34:00 r ve Heart ea9-4727-8 l Care PA [id number]-j62145 Haylee nn 5d9a9c 2014-10-26 2014-10-26 Unknown nullFlavo Comprehensi 5fcc 3749-7 Memoria 16:34:00 16:34:00 r ve Heart ee3-423e-9 l Care PA [id number] Haylee nn 36ae3b 2014-10-26 2014-10-26 Unknown nullFlavo Comprehensi 8c7e 7418-a [facility]oria 16:34:00 16:34:00 r ve Heart 2e2-33g8-6 l Care PA 3ec-9dcd24 [facility] nn 2t2004 2014-10-26 2014-10-26 Unknown nullFlavo Comprehensi 12a1 6011-e Memoria 16:34:00 16:34:00 r ve Heart 6ce-4fdf-9 l Care PA 60a-ab5dd8 Haylee nn 4b1209 2014-10-26 2014-10-26 Unknown nullFlavo Comprehensi 4db8 527c-2 Memoria 16:34:00 16:34:00 r ve Heart 48b-48ae-8 l Care PA 628-05j396 Haylee nn 0fff73 2014-10-26 2014-10-26 Unknown nullFlavo Comprehensi 7bde c26f-c Memoria 16:34:00 16:34:00 r ve Heart 055-457d-9 l Care PA 5fc-29e2ff Haylee nn 81fd93 2014-10-26 2014-10-26 Unknown nullFlavo Comprehensi bf3b f735-1 Memoria 16:34:00 16:34:00 r ve Heart ea9-4727-8 l Care PA eee-c37755 Haylee nn 5d9a9c 2014-10-26 2014-10-26 Unknown nullFlavo Comprehensi 12a1 6011-e Memoria 16:34:00 16:34:00 r ve Heart 6ce-4fdf-9 l Care PA 60a-ab5dd8 Haylee nn 0u8820 2014-10-26 2014-10-26 Unknown nullFlavo Comprehensi 4db8 527c-2 Memoria 16:34:00 16:34:00 r ve Heart 48b-48ae-8 l Care PA 628-24q226 Haylee nn 0fff73 2014-10-26 2014-10-26 Unknown nullFlavo Comprehensi 5ad8 2f83-4 Memoria 16:34:00 16:34:00 r ve Heart l0w-4rkk-3 l Care PA 28e-259342 Haylee nn 9b211g 2014-10-26 2014-10-26 Unknown nullFlavo Comprehensi 8c7e 7418-a Memoria 16:34:00 16:34:00 r ve Heart 8w8-62z8-3 l Care PA 3ec-9dcd24 Haylee nn 0a3165 2014-10-26 2014-10-26 Unknown nullFlavo Comprehensi 5fcc 3749-7 Memoria 16:34:00 16:34:00 r ve Heart ee3-423e-9 l Care PA 6o2-964972 Haylee nn 36ae3b 2014-10-26 2014-10-26 Unknown nullFlavo Comprehensi dd4d 3ade-2 Memoria 15:34:00 15:34:00 r ve Heart 507-4687-b l Care PA 867-2lv218 Haylee nn 8bcf55 2014-10-26 2014-10-26 Unknown nullFlavo Comprehensi 90e3 6b79-2 Memoria 15:34:00 15:34:00 r ve Heart 6j6-1795-0 l Care PA 847-0e42fc [facility] nn a050a6 2014-10-26 2014-10-26 Unknown nullFlavo Comprehensi de6b 6e79-7 Memoria 15:34:00 15:34:00 r ve Heart afb-4450-b l Care PA 59b-0jy856 [facility] nn d68b18 2014-10-26 2014-10-26 Unknown nullFlavo Comprehensi 5ecc 3ffb-8 Memoria 15:34:00 15:34:00 r ve Heart 41a-4b6b-b l Care PA 1ff-0161f7 [facility] nn 1ba6e2 2014-10-26 2014-10-26 Unknown nullFlavo Comprehensi a1b2 1954-4 Memoria 15:34:00 15:34:00 r ve Heart 0v2-0xu4-0 l Care PA p2l-84en15 [facility] nn [id number] 2014-10-26 2014-10-26 Unknown nullFlavo Comprehensi 5bc0 e3d1-a Memoria 15:34:00 15:34:00 r ve Heart 9z8-3epg-4 l Care PA 326-6f11e2 [facility] nn 2311ff 2014-10-26 2014-10-26 Unknown nullFlavo Comprehensi 57e3 37e9-b [facility]oria 15:34:00 15:34:00 r ve Heart 954-4742-a l Care PA 23b-qz999w [facility] nn 4e4ae5 2014-10-26 2014-10-26 Unknown nullFlavo Comprehensi 78df 08f3-9 Memoria 15:34:00 15:34:00 r ve Heart 465-47d6-8 l Care [place] 583-003a2b [facility] nn 54cdcd 2014-10-26 2014-10-26 Unknown nullFlavo Comprehensi f1de 1752-d Memoria 15:34:00 15:34:00 r ve Heart ed9-472f-8 l Care PA 3f5-8z7324 [facility] nn b9a38d 2014-10-26 2014-10-26 Unknown nullFlavo Comprehensi e75c 3f32-f Memoria 15:34:00 15:34:00 r ve Heart 18c-4e22-9 l Care PA 466-83501x [facility]lee nn 6b88f6 2014-10-26 2014-10-26 Unknown nullFlavo Comprehensi 0643 12a8-f Memoria 15:34:00 15:34:00 r ve Heart fb4-402e-8 l Care PA 4bd-407e1c [facility] nn 7abcf8 2014-10-26 2014-10-26 Unknown nullFlavo Comprehensi 2770 0c76-8 Memoria 15:34:00 15:34:00 r ve Heart g00-92as-s l Care PA v8w-99931w Haylee nn 5v7649 2014-10-26 2014-10-26 Unknown nullFlavo Comprehensi dd4d 3ade-2 Memoria 15:34:00 15:34:00 r ve Heart 507-4687-b l Care PA 867-8pq441 [facility]lee nn 8bcf55 2014-10-26 2014-10-26 Unknown nullFlavo Comprehensi 90e3 6b79-2 Memoria 15:34:00 15:34:00 r ve Heart 2g8-7156-5 l Care PA 847-0e42fc Haylee nn a050a6 2014-10-26 2014-10-26 Unknown nullFlavo Comprehensi de6b 6e79-7 Memoria 15:34:00 15:34:00 r ve Heart afb-4450-b l Care PA 59b-3ck559 [facility]lee nn d68b18 2014-10-26 2014-10-26 Unknown nullFlavo Comprehensi 5ecc 3ffb-8 Memoria 15:34:00 15:34:00 r ve Heart 41a-4b6b-b l Care PA 1ff-0161f7 Haylee nn 1ba6e2 2014-10-26 2014-10-26 Unknown nullFlavo Comprehensi a1b2 1954-4 Memoria 15:34:00 15:34:00 r ve Heart 9a1-4yj6-4 l Care PA z6x-79pv36 Haylee nn e65683 2014-10-26 2014-10-26 Unknown nullFlavo Comprehensi 5bc0 e3d1-a Memoria 15:34:00 15:34:00 r ve Heart 3a6-1jlo-1 l Care PA 326-6f11e2 Haylee nn 2311ff 2014-10-26 2014-10-26 Unknown nullFlavo Comprehensi 57e3 37e9-b Memoria 15:34:00 15:34:00 r ve Heart 954-4742-a l Care PA 23b-yx916i Haylee nn 4e4ae5 2014-10-26 2014-10-26 Unknown nullFlavo Comprehensi 78df 08f3-9 Memoria 15:34:00 15:34:00 r ve Heart 465-47d6-8 l Care PA 583-003a2b [facility]lee nn 54cdcd 2014-10-26 2014-10-26 Unknown nullFlavo Comprehensi f1de 1752-d Memoria 15:34:00 15:34:00 r ve Heart ed9-472f-8 l Care PA 6e5-0z5815 Haylee nn b9a38d 2014-10-26 2014-10-26 Unknown nullFlavo Comprehensi e75c 3f32-f Memoria 15:34:00 15:34:00 r ve Heart 18c-4e22-9 l Care PA 466-38842c Haylee nn 6b88f6 2014-10-26 2014-10-26 Unknown nullFlavo Comprehensi 0643 12a8-f Memoria 15:34:00 15:34:00 r ve Heart fb4-402e-8 l Care PA 4bd-407e1c Haylee nn 7abcf8 2014-10-26 2014-10-26 Unknown nullFlavo Comprehensi 2770 0c76-8 Memoria 15:34:00 15:34:00 r ve Heart u70-09ag-p l Care PA c4h-50203z Haylee nn 2c5119 2014-10-26 2014-10-26 Unknown nullFlavo Comprehensi 5ecc 3ffb-8 Memoria 15:34:00 15:34:00 r ve Heart 41a-4b6b-b l Care PA 1ff-0161f7 Haylee nn 1ba6e2 2014-10-26 2014-10-26 Unknown nullFlavo Comprehensi 90e3 6b79-2 Memoria 15:34:00 15:34:00 r ve Heart 2u7-6423-9 l Care PA 847-0e42fc Haylee nn a050a6 2014-10-26 2014-10-26 Unknown nullFlavo Comprehensi dd4d 3ade-2 Memoria 15:34:00 15:34:00 r ve Heart 507-4687-b l Care PA 867-0ji571 Haylee nn 8bcf55 2014-10-26 2014-10-26 Unknown nullFlavo Comprehensi f1de 1752-d Memoria 15:34:00 15:34:00 r ve Heart ed9-472f-8 l Care PA 3k5-5d1489 Haylee nn b9a38d 2014-10-26 2014-10-26 Unknown nullFlavo Comprehensi 57e3 37e9-b Memoria 15:34:00 15:34:00 r ve Heart 954-4742-a l Care PA 23b-xg943g Haylee nn 4e4ae5 2014-10-26 2014-10-26 Unknown nullFlavo Comprehensi 5bc0 e3d1-a Memoria 15:34:00 15:34:00 r ve Heart 5i6-3tht-0 l Care PA 326-6f11e2 Haylee nn 2311ff 2014-10-26 2014-10-26 Unknown nullFlavo Comprehensi de6b 6e79-7 Memoria 15:34:00 15:34:00 r ve Heart afb-4450-b l Care PA 59b-7gk534 Haylee nn d68b18 2014-10-26 2014-10-26 Unknown nullFlavo Comprehensi a1b2 1954-4 Memoria 15:34:00 15:34:00 r ve Heart 7k0-4pl2-3 l Care PA v3k-02pc90 Haylee nn w31399 2014-10-26 2014-10-26 Unknown nullFlavo Comprehensi e75c 3f32-f Memoria 15:34:00 15:34:00 r ve Heart 18c-4e22-9 l Care PA 466-93423p Haylee nn 6b88f6 2014-10-26 2014-10-26 Unknown nullFlavo Comprehensi 78df 08f3-9 Memoria 15:34:00 15:34:00 r ve Heart 465-47d6-8 l Care PA 583-003a2b [facility] nn 54cdcd 2014-10-26 2014-10-26 Unknown nullFlavo Comprehensi 0643 12a8-f Memoria 15:34:00 15:34:00 r ve Heart fb4-402e-8 l Care PA 4bd-407e1c [facility]lee nn 7abcf8 2014-10-26 2014-10-26 Unknown nullFlavo Comprehensi 2770 0c76-8 Memoria 15:34:00 15:34:00 r ve Heart e81-43uw-c l Care PA n7l-71191n [facility]lee nn 8w5503 2014-06-04 2014-06-04 Unknown nullFlavo Comprehensi f4e3 bdad-a Memoria 23:05:00 23:05:00 r ve Heart 748-4d71-b l Care PA h1i-4402mu Haylee nn 310c0c 2014-06-04 2014-06-04 Unknown nullFlavo Comprehensi f683 0800-0 Memoria 23:05:00 23:05:00 r ve Heart fc1-481c-a l Care PA f7c-190603 Haylee nn c75c2d 2014-06-04 2014-06-04 Unknown nullFlavo Comprehensi 6e84 60f2-7 Memoria 23:05:00 23:05:00 r ve Heart v27-87ua-8 l Care PA 8u1-2k107n Haylee nn 1c1aad 2014-06-04 2014-06-04 Unknown nullFlavo Comprehensi 3603 7cef-2 Memoria 23:05:00 23:05:00 r ve Heart dc6-4f88-9 l Care PA f22-77txo3 Haylee nn d70e22 2014-06-04 2014-06-04 Unknown nullFlavo Comprehensi f037 c320-b Memoria 23:05:00 23:05:00 r ve Heart 3cb-41ea-a l Care PA b49-b06v65 Haylee nn 5nn540 2014-06-04 2014-06-04 Unknown nullFlavo Comprehensi 6c0a 5f2e-7 Memoria 23:05:00 23:05:00 r ve Heart 507-4dfc-a l Care PA 896-ad7aaa Haylee nn 19a3d6 2014-06-04 2014-06-04 Unknown nullFlavo Comprehensi ae2d 04ba-b Memoria 23:05:00 23:05:00 r ve Heart ef1-4c2a-b l Care PA 414-749a94 Haylee nn 80898c 2014-06-04 2014-06-04 Unknown nullFlavo Comprehensi f4e3 bdad-a Memoria 23:05:00 23:05:00 r ve Heart 748-4d71-b l Care PA q2s-8820if Haylee nn 310c0c 2014-06-04 2014-06-04 Unknown nullFlavo Comprehensi f683 0800-0 Memoria 23:05:00 23:05:00 r ve Heart fc1-481c-a l Care PA d7w-205972 Haylee nn c75c2d 2014-06-04 2014-06-04 Unknown nullFlavo Comprehensi 6e84 60f2-7 Memoria 23:05:00 23:05:00 r ve Heart h61-52jk-0 l Care PA 0g2-2u572i Haylee nn 1c1aad 2014-06-04 2014-06-04 Unknown nullFlavo Comprehensi 3603 7cef-2 Memoria 23:05:00 23:05:00 r ve Heart dc6-4f88-9 l Care PA r96-12xsv5 Haylee nn d70e22 2014-06-04 2014-06-04 Unknown nullFlavo Comprehensi f037 c320-b Memoria 23:05:00 23:05:00 r ve Heart 3cb-41ea-a l Care PA x31-x52o63 Haylee nn 8xw133 2014-06-04 2014-06-04 Unknown nullFlavo Comprehensi 6c0a 5f2e-7 Memoria 23:05:00 23:05:00 r ve Heart 507-4dfc-a l Care PA 896-ad7aaa Haylee nn 19a3d6 2014-06-04 2014-06-04 Unknown nullFlavo Comprehensi ae2d 04ba-b Memoria 23:05:00 23:05:00 r ve Heart ef1-4c2a-b l Care PA 414-749a94 Haylee nn 65054p 2014-06-04 2014-06-04 Unknown nullFlavo Comprehensi f683 0800-0 Memoria 23:05:00 23:05:00 r ve Heart fc1-481c-a l Care PA v3c-774067 [facility] nn c75c2d 2014-06-04 2014-06-04 Unknown nullFlavo Comprehensi 6e84 60f2-7 Memoria 23:05:00 23:05:00 r ve Heart a19-74oq-7 l Care PA 5z5-8u061z [facility] nn 1c1aad 2014-06-04 2014-06-04 Unknown nullFlavo Comprehensi 6c0a 5f2e-7 Memoria 23:05:00 23:05:00 r ve Heart 507-4dfc-a l Care PA 896-ad7aaa [facility] nn 19a3d6 2014-06-04 2014-06-04 Unknown nullFlavo Comprehensi ae2d 04ba-b Memoria 23:05:00 23:05:00 r ve Heart ef1-4c2a-b l Care PA 414-749a94 [facility] nn 88139n 2014-06-04 2014-06-04 Unknown nullFlavo Comprehensi f4e3 bdad-a Memoria 23:05:00 23:05:00 r ve Heart 748-4d71-b l Care PA u0z-8222pp [facility] nn 310c0c 2014-06-04 2014-06-04 Unknown nullFlavo Comprehensi f037 c320-b Memoria 23:05:00 23:05:00 r ve Heart 3cb-41ea-a l Care PA i87-j28h49 [facility] nn 1zh098 2014-06-04 2014-06-04 Unknown nullFlavo Comprehensi 3603 7cef-2 Memoria 23:05:00 23:05:00 r ve Heart dc6-4f88-9 l Care PA y61-42wkw1 [facility] nn d70e22 2014-06-04 2014-06-04 Unknown nullFlavo Comprehensi 7fd6 da90-a Memoria 22:05:00 22:05:00 r ve Heart 0q0-1vqg-b l Care PA 321-8j659t [facility] nn 83c71b 2014-06-04 2014-06-04 Unknown nullFlavo Comprehensi 244b 8935-1 Memoria 22:05:00 22:05:00 r ve Heart r05-2572-f l Care PA l0e-pl94k3 Haylee nn 5deeeb 2014-06-04 2014-06-04 Unknown nullFlavo Comprehensi be4a e6b3-e Memoria 22:05:00 22:05:00 r ve Heart h0n-1f7b-6 l Care PA aa0-39562q Haylee nn 746aa8 2014-06-04 2014-06-04 Unknown nullFlavo Comprehensi f8de 47fd-6 Memoria 22:05:00 22:05:00 r ve Heart fee-4f25-9 l Care PA ae0-882475 Haylee nn 0vb057 2014-06-04 2014-06-04 Unknown nullFlavo Comprehensi c2bf 83ca-a Memoria 22:05:00 22:05:00 r ve Heart 4k0-19k5-e l Care PA 8df-ac1e4a Haylee nn 95p546 2014-06-04 2014-06-04 Unknown nullFlavo Comprehensi d1db 7126-8 Memoria 22:05:00 22:05:00 r ve Heart y6z-0660-6 l Care PA q4t-43441v Haylee nn e7fdc3 2014-06-04 2014-06-04 Unknown nullFlavo Comprehensi 8efd 88cc-c Memoria 22:05:00 22:05:00 r ve Heart 09b-4714-8 l Care PA 9f4-4lto3i Haylee nn f6b1ca 2014-06-04 2014-06-04 Unknown nullFlavo Comprehensi 4adc 9261-4 Memoria 22:05:00 22:05:00 r ve Heart 4h2-9c3k-u l Care PA z9u-5dx0t9 [facility]lee nn 315cb6 2014-06-04 2014-06-04 Unknown nullFlavo Comprehensi 2cc4 d6c1-5 Memoria 22:05:00 22:05:00 r ve Heart 090-4c86-a l Care PA bad-lu2448 Haylee nn b7b0e6 2014-06-04 2014-06-04 Unknown nullFlavo Comprehensi 1d99 7291-d Memoria 22:05:00 22:05:00 r ve Heart dbe-4fc5-8 l Care PA 953-8cu864 Haylee nn ba49a4 2014-06-04 2014-06-04 Unknown nullFlavo Comprehensi 455f db51-5 Memoria 22:05:00 22:05:00 r ve Heart 6eb-4eae-a l Care PA j02-6t344d Haylee nn ulg523 2014-06-04 2014-06-04 Unknown nullFlavo Comprehensi b24f 0be2-f Memoria 22:05:00 22:05:00 r ve Heart 980-4915-a l Care PA b6p-850jk4 Haylee nn 8m6099 2014-06-04 2014-06-04 Unknown nullFlavo Comprehensi 4bd6 fbcc-a Memoria 22:05:00 22:05:00 r ve Heart r9d-17t5-0 l Care PA w60-xwv7vh Haylee nn 1a1bce 2014-06-04 2014-06-04 Unknown nullFlavo Comprehensi 7fd6 da90-a Memoria 22:05:00 22:05:00 r ve Heart 4a9-1cwl-x l Care PA 321-9w453n Haylee nn 83c71b 2014-06-04 2014-06-04 Unknown nullFlavo Comprehensi 244b 8935-1 Memoria 22:05:00 22:05:00 r ve Heart m93-5022-s l Care PA h4l-pp89m3 Haylee nn 5deeeb 2014-06-04 2014-06-04 Unknown nullFlavo Comprehensi be4a e6b3-e Memoria 22:05:00 22:05:00 r ve Heart l9w-4b0n-0 l Care PA aa0-52114o Haylee nn 746aa8 2014-06-04 2014-06-04 Unknown nullFlavo Comprehensi f8de 47fd-6 Memoria 22:05:00 22:05:00 r ve Heart fee-4f25-9 l Care PA ae0-944123 Haylee nn 2os529 2014-06-04 2014-06-04 Unknown nullFlavo Comprehensi c2bf 83ca-a Memoria 22:05:00 22:05:00 r ve Heart 0h8-91x3-a l Care PA 8df-ac1e4a Haylee nn 25q749 2014-06-04 2014-06-04 Unknown nullFlavo Comprehensi d1db 7126-8 Memoria 22:05:00 22:05:00 r ve Heart g9x-4187-4 l Care PA n1f-76129l Haylee nn e7fdc3 2014-06-04 2014-06-04 Unknown nullFlavo Comprehensi 8efd 88cc-c Memoria 22:05:00 22:05:00 r ve Heart 09b-4714-8 l Care PA 7z2-7kxx8j Haylee nn f6b1ca 2014-06-04 2014-06-04 Unknown nullFlavo Comprehensi 4adc 9261-4 Memoria 22:05:00 22:05:00 r ve Heart 9d4-2c5f-t l Care PA b6r-6rs8j9 Haylee nn 315cb6 2014-06-04 2014-06-04 Unknown nullFlavo Comprehensi 2cc4 d6c1-5 Memoria 22:05:00 22:05:00 r ve Heart 090-4c86-a l Care PA bad-ly2635 Haylee nn b7b0e6 2014-06-04 2014-06-04 Unknown nullFlavo Comprehensi 1d99 7291-d Memoria 22:05:00 22:05:00 r ve Heart dbe-4fc5-8 l Care PA 953-7qu956 Haylee nn ba49a4 2014-06-04 2014-06-04 Unknown nullFlavo Comprehensi 455f db51-5 Memoria 22:05:00 22:05:00 r ve Heart 6eb-4eae-a l Care PA s50-2t163f Haylee nn hzs024 2014-06-04 2014-06-04 Unknown nullFlavo Comprehensi b24f 0be2-f Memoria 22:05:00 22:05:00 r ve Heart 980-4915-a l Care PA d5s-593rz5 Haylee nn 2g9297 2014-06-04 2014-06-04 Unknown nullFlavo Comprehensi 4bd6 fbcc-a Memoria 22:05:00 22:05:00 r ve Heart i7t-25d7-8 l Care PA x41-dph4lg Haylee nn 1a1bce 2014-06-04 2014-06-04 Unknown nullFlavo Comprehensi 7fd6 da90-a Memoria 22:05:00 22:05:00 r ve Heart 2r1-6zsd-e l Care PA 321-7q956s Haylee nn 83c71b 2014-06-04 2014-06-04 Unknown nullFlavo Comprehensi c2bf 83ca-a Memoria 22:05:00 22:05:00 r ve Heart 4a3-15a0-g l Care PA 8df-ac1e4a Haylee nn 84w833 2014-06-04 2014-06-04 Unknown nullFlavo Comprehensi be4a e6b3-e Memoria 22:05:00 22:05:00 r ve Heart u5h-0t6b-4 l Care PA aa0-89969q Haylee nn 746aa8 2014-06-04 2014-06-04 Unknown nullFlavo Comprehensi 244b 8935-1 Memoria 22:05:00 22:05:00 r ve Heart v77-1844-v l Care PA w7u-ey72y6 Haylee nn 5deeeb 2014-06-04 2014-06-04 Unknown nullFlavo Comprehensi 1d99 7291-d Memoria 22:05:00 22:05:00 r ve Heart dbe-4fc5-8 l Care PA 953-6ru319 Haylee nn ba49a4 2014-06-04 2014-06-04 Unknown nullFlavo Comprehensi 4adc 9261-4 Memoria 22:05:00 22:05:00 r ve Heart 1a6-1z8n-b l Care PA k2y-2fk8d4 Haylee nn 315cb6 2014-06-04 2014-06-04 Unknown nullFlavo Comprehensi 8efd 88cc-c Memoria 22:05:00 22:05:00 r ve Heart 09b-4714-8 l Care PA 3d6-6qxp1f Haylee nn f6b1ca 2014-06-04 2014-06-04 Unknown nullFlavo Comprehensi f8de 47fd-6 Memoria 22:05:00 22:05:00 r ve Heart fee-4f25-9 l Care PA ae0-859187 Haylee nn 4os429 2014-06-04 2014-06-04 Unknown nullFlavo Comprehensi d1db 7126-8 Memoria 22:05:00 22:05:00 r ve Heart m7t-6263-7 l Care PA q7m-90871z Haylee nn e7fdc3 2014-06-04 2014-06-04 Unknown nullFlavo Comprehensi 455f db51-5 Memoria 22:05:00 22:05:00 r ve Heart 6eb-4eae-a l Care PA r39-9b703n Haylee nn oeg539 2014-06-04 2014-06-04 Unknown nullFlavo Comprehensi 2cc4 d6c1-5 Memoria 22:05:00 22:05:00 r ve Heart 090-4c86-a l Care PA bad-hh5028 Haylee nn b7b0e6 2014-06-04 2014-06-04 Unknown nullFlavo Comprehensi b24f 0be2-f Memoria 22:05:00 22:05:00 r ve Heart 980-4915-a l Care PA g8v-937wm6 [facility] nn 8h7178 2014-06-04 2014-06-04 Unknown nullFlavo Comprehensi 4bd6 fbcc-a Memoria 22:05:00 22:05:00 r ve Heart w2w-59i5-4 l Care PA u81-zpi5di [facility] nn 1a1bce 2014-06-04 2014-06-04 Outpatient Comprehen Comprehensi 3 [id number] [facility] 17:05:00 17:05:00 sive ve Heart alWor tn Heart Care PA Care PA 2014-06-04 2014-06-04 Outpatient Comprehen Comprehensi 3 66668 [facility]Clinic 17:05:00 17:05:00 sive ve Heart alWor tn Heart Care PA Care PA 2014-05-23 2014-05-23 Unknown nullFlavo Comprehensi 2b6e 5fdc-2 Memoria 20:16:00 20:16:00 r ve Heart w42-1d4e-n l Care PA f45-vwn9si [facility] nn 46593f 2014-05-23 2014-05-23 Unknown nullFlavo Comprehensi 9b0c 749d-a Memoria 20:16:00 20:16:00 r ve Heart 7z8-1t71-f l Care PA 2da-wff622 Haylee nn 6e87dd 2014-05-23 2014-05-23 Unknown nullFlavo Comprehensi d8cb b448-9 Memoria 20:16:00 20:16:00 r ve Heart 7b0-37qj-5 l Care PA 65d-eef39c Haylee nn 68a2e8 2014-05-23 2014-05-23 Unknown nullFlavo Comprehensi fcf4 c8ed-d Memoria 20:16:00 20:16:00 r ve Heart 015-4af2-b l Care PA ca3-c773ac Haylee nn e2a5cc 2014-05-23 2014-05-23 Unknown nullFlavo Comprehensi 5739 b8dd-3 Memoria 20:16:00 20:16:00 r ve Heart 261-4944-8 l Care PA 4a7-cc7e15 Haylee nn 9ba4ab 2014-05-23 2014-05-23 Unknown nullFlavo Comprehensi ec67 359c-9 Memoria 20:16:00 20:16:00 r ve Heart e23-0053-g l Care PA p52-88a393 Haylee nn 6ab55d 2014-05-23 2014-05-23 Unknown nullFlavo Comprehensi 8d42 3ca3-c Memoria 20:16:00 20:16:00 r ve Heart be1-4887-a l Care PA 153-5e2bdb Haylee nn 2b78d8 2014-05-23 2014-05-23 Unknown nullFlavo Comprehensi 2b6e 5fdc-2 Memoria 20:16:00 20:16:00 r ve Heart m79-1p8u-c l Care PA i92-hul3cg Haylee nn 74878m 2014-05-23 2014-05-23 Unknown nullFlavo Comprehensi 9b0c 749d-a Memoria 20:16:00 20:16:00 r ve Heart 8o1-8p12-o l Care PA 2da-yjg463 Haylee nn 6e87dd 2014-05-23 2014-05-23 Unknown nullFlavo Comprehensi d8cb b448-9 Memoria 20:16:00 20:16:00 r ve Heart 0u4-33eq-6 l Care PA 65d-eef39c Haylee nn 68a2e8 2014-05-23 2014-05-23 Unknown nullFlavo Comprehensi fcf4 c8ed-d Memoria 20:16:00 20:16:00 r ve Heart 015-4af2-b l Care PA ca3-c773ac Haylee nn e2a5cc 2014-05-23 2014-05-23 Unknown nullFlavo Comprehensi 5739 b8dd-3 Memoria 20:16:00 20:16:00 r ve Heart 261-4944-8 l Care PA 5y1-ua2v71 Haylee nn 9ba4ab 2014-05-23 2014-05-23 Unknown nullFlavo Comprehensi ec67 359c-9 Memoria 20:16:00 20:16:00 r ve Heart t40-7776-h l Care PA a46-51a873 Haylee nn 6ab55d 2014-05-23 2014-05-23 Unknown nullFlavo Comprehensi 8d42 3ca3-c Memoria 20:16:00 20:16:00 r ve Heart be1-4887-a l Care PA 153-5e2bdb Haylee nn 2b78d8 2014-05-23 2014-05-23 Unknown nullFlavo Comprehensi 9b0c 749d-a Memoria 20:16:00 20:16:00 r ve Heart 1z0-3g66-n l Care PA 2da-bqh283 Haylee nn 6e87dd 2014-05-23 2014-05-23 Unknown nullFlavo Comprehensi d8cb b448-9 Memoria 20:16:00 20:16:00 r ve Heart 0n3-49vh-1 l Care PA 65d-eef39c Haylee nn 68a2e8 2014-05-23 2014-05-23 Unknown nullFlavo Comprehensi ec67 359c-9 Memoria 20:16:00 20:16:00 r ve Heart a58-8853-o l Care PA j65-12h490 Haylee nn 6ab55d 2014-05-23 2014-05-23 Unknown nullFlavo Comprehensi 8d42 3ca3-c Memoria 20:16:00 20:16:00 r ve Heart be1-4887-a l Care PA 153-5e2bdb Haylee nn 2b78d8 2014-05-23 2014-05-23 Unknown nullFlavo Comprehensi 2b6e 5fdc-2 Memoria 20:16:00 20:16:00 r ve Heart n87-0v1g-u l Care PA y02-lwv6ut Haylee nn 14682k 2014-05-23 2014-05-23 Unknown nullFlavo Comprehensi 5739 b8dd-3 Memoria 20:16:00 20:16:00 r ve Heart 261-4944-8 l Care PA 3l8-gk2h27 Haylee nn 9ba4ab 2014-05-23 2014-05-23 Unknown nullFlavo Comprehensi fcf4 c8ed-d Memoria 20:16:00 20:16:00 r ve Heart 015-4af2-b l Care PA ca3-c773ac Haylee nn e2a5cc 2014-05-23 2014-05-23 Unknown nullFlavo Comprehensi 203e 6fa3-d Memoria 19:16:00 19:16:00 r ve Heart bdc-4bff-8 l Care PA 555-515501 Haylee nn 1d6c04 2014-05-23 2014-05-23 Unknown nullFlavo Comprehensi dc18 0652-3 Memoria 19:16:00 19:16:00 r ve Heart de5-4854-8 l Care PA r32-zogr03 Haylee nn ec60ec 2014-05-23 2014-05-23 Unknown nullFlavo Comprehensi 9a16 e598-f Memoria 19:16:00 19:16:00 r ve Heart h5l-809y-z l Care PA 8v8-70e72k Haylee nn a86cfa 2014-05-23 2014-05-23 Unknown nullFlavo Comprehensi 8114 0fc0-2 Memoria 19:16:00 19:16:00 r ve Heart 3y3-25s6-8 l Care PA 967-233994 Haylee nn 4e3e19 2014-05-23 2014-05-23 Unknown nullFlavo Comprehensi e387 6469-2 Memoria 19:16:00 19:16:00 r ve Heart 396-49bd-9 l Care PA 34e-241b8b Haylee nn 0af6d6 2014-05-23 2014-05-23 Unknown nullFlavo Comprehensi efc1 6040-2 Memoria 19:16:00 19:16:00 r ve Heart 3t9-70it-g l Care PA 555-339dac Haylee nn dcb7cb 2014-05-23 2014-05-23 Unknown nullFlavo Comprehensi 69fc 8f62-8 Memoria 19:16:00 19:16:00 r ve Heart 764-45a8-9 l Care PA 76e-d819e2 Haylee nn 103e33 2014-05-23 2014-05-23 Unknown nullFlavo Comprehensi 0715 700a-e Memoria 19:16:00 19:16:00 r ve Heart 595-4bf7-9 l Care PA dde-350e31 Haylee nn x4592f 2014-05-23 2014-05-23 Unknown nullFlavo Comprehensi 2a8c d8c6-a Memoria 19:16:00 19:16:00 r ve Heart 6ba-4541-8 l Care PA 76a-2b87fc Haylee nn 2d4b9d 2014-05-23 2014-05-23 Unknown nullFlavo Comprehensi 2431 7a0f-1 Memoria 19:16:00 19:16:00 r ve Heart 3d8-639v-d l Care PA 8r2-g7i8cj Haylee nn a1c67d 2014-05-23 2014-05-23 Unknown nullFlavo Comprehensi 6f04 275e-3 Memoria 19:16:00 19:16:00 r ve Heart 156-491d-9 l Care PA 82d-4b1d1e Haylee nn 67719k 2014-05-23 2014-05-23 Unknown nullFlavo Comprehensi a10c 0017-2 Memoria 19:16:00 19:16:00 r ve Heart n86-913e-7 l Care PA 978-2e87e6 [facility] nn [id number] 9636-09-10 2014-05-23 Unknown nullFlavo Comprehensi 3bc9 4325-5 Memoria 19:16:00 19:16:00 r ve Heart 19a-4dd9-a l Care PA 1be-4163a6 Haylee nn 90df66 2014-05-23 2014-05-23 Unknown nullFlavo Comprehensi 73c1 eeaa-3 Memoria 19:16:00 19:16:00 r ve Heart ed9-45d6-b l Care PA 8fa-d59e4f Haylee nn aad25b 2014-05-23 2014-05-23 Unknown nullFlavo Comprehensi e9b0 f3a1-2 [facility]oria 19:16:00 19:16:00 r ve Heart f7x-4c12-c l Care PA x1q-[id number] Haylee nn 47c2de 2014-05-23 2014-05-23 Unknown nullFlavo Comprehensi 7a31 3e34-e [facility]oria 19:16:00 19:16:00 r ve Heart 400-4932-8 l Care PA v13-9bc72a Haylee nn c8ac2b 2014-05-23 2014-05-23 Unknown nullFlavo Comprehensi 203e 6fa3-d [facility]oria 19:16:00 19:16:00 r ve Heart bdc-4bff-8 l Care PA [id number] Haylee nn 1d6c04 2014-05-23 2014-05-23 Unknown nullFlavo Comprehensi dc18 0652-3 [facility]oria 19:16:00 19:16:00 r ve Heart de5-4854-8 l Care PA w98-jeya49 Haylee nn ec60ec 2014-05-23 2014-05-23 Unknown nullFlavo Comprehensi 9a16 e598-f [facility] 19:16:00 19:16:00 r ve Heart d1u-914j-j l Care PA 2e6-41n45o Haylee nn a86cfa 2014-05-23 2014-05-23 Unknown nullFlavo Comprehensi 8114 0fc0-2 [facility]oria 19:16:00 19:16:00 r ve Heart 1s0-36r7-0 l Care PA [id number] Haylee nn 4e3e19 2014-05-23 2014-05-23 Unknown nullFlavo Comprehensi e387 6469-2 [facility]oria 19:16:00 19:16:00 r ve Heart 396-49bd-9 l Care PA 34e-241b8b Haylee nn 0af6d6 2014-05-23 2014-05-23 Unknown nullFlavo Comprehensi efc1 6040-2 [facility]oria 19:16:00 19:16:00 r ve Heart 9p9-20ei-m l Care PA 555-339dac Haylee nn dcb7cb 2014-05-23 2014-05-23 Unknown nullFlavo Comprehensi 69fc 8f62-8 [facility]oria 19:16:00 19:16:00 r ve Heart 764-45a8-9 l Care PA 76e-d819e2 Haylee nn 103e33 2014-05-23 2014-05-23 Unknown nullFlavo Comprehensi 0715 700a-e [facility] 19:16:00 19:16:00 r ve Heart 595-4bf7-9 l Care PA dde-350e31 Haylee nn w7516q 2014-05-23 2014-05-23 Unknown nullFlavo Comprehensi 2a8c d8c6-a [facility]oria 19:16:00 19:16:00 r ve Heart 6ba-4541-8 l Care PA 76a-2b87fc Haylee nn 2d4b9d 2014-05-23 2014-05-23 Unknown nullFlavo Comprehensi 2431 7a0f-1 [facility] 19:16:00 19:16:00 r ve Heart 3b6-682d-i l Care PA 2v0-w3l8ij Haylee nn a1c67d 2014-05-23 2014-05-23 Unknown nullFlavo Comprehensi 6f04 275e-3 [facility] 19:16:00 19:16:00 r ve Heart 156-491d-9 l Care PA 82d-4b1d1e Haylee nn 47294c 2014-05-23 2014-05-23 Unknown nullFlavo Comprehensi a10c 0017-2 [facility]oria 19:16:00 19:16:00 r ve Heart s85-892c-2 l Care PA 978-2e87e6 Haylee nn 070631 7919-09-10 2014-05-23 Unknown nullFlavo Comprehensi 3bc9 4325-5 [facility] 19:16:00 19:16:00 r ve Heart 19a-4dd9-a l Care PA 1be-4163a6 Haylee nn 90df66 2014-05-23 2014-05-23 Unknown nullFlavo Comprehensi 73c1 eeaa-3 [facility]oria 19:16:00 19:16:00 r ve Heart ed9-45d6-b l Care PA 8fa-d59e4f Haylee nn aad25b 2014-05-23 2014-05-23 Unknown nullFlavo Comprehensi e9b0 f3a1-2 [facility] 19:16:00 19:16:00 r ve Heart q6q-8z45-s l Care PA a8i-2n0629 Haylee nn 47c2de 2014-05-23 2014-05-23 Unknown nullFlavo Comprehensi 7a31 3e34-e [facility] 19:16:00 19:16:00 r ve Heart 400-4932-8 l Care PA q21-3yi07u Haylee nn c8ac2b 2014-05-23 2014-05-23 Unknown nullFlavo Comprehensi dc18 0652-3 [facility] 19:16:00 19:16:00 r ve Heart de5-4854-8 l Care PA c97-icec52 Haylee nn ec60ec 2014-05-23 2014-05-23 Unknown nullFlavo Comprehensi 9a16 e598-f [facility] 19:16:00 19:16:00 r ve Heart a8i-298f-b l Care PA 4w8-10x09z Haylee nn a86cfa 2014-05-23 2014-05-23 Unknown nullFlavo Comprehensi e387 6469-2 [facility] 19:16:00 19:16:00 r ve Heart 396-49bd-9 l Care PA 34e-241b8b Haylee nn 0af6d6 2014-05-23 2014-05-23 Unknown nullFlavo Comprehensi 0715 700a-e [facility] 19:16:00 19:16:00 r ve Heart 595-4bf7-9 l Care PA dde-350e31 Haylee nn p6135e 2014-05-23 2014-05-23 Unknown nullFlavo Comprehensi efc1 6040-2 [facility]oria 19:16:00 19:16:00 r ve Heart 7l9-83xg-k l Care PA 555-339dac Haylee nn dcb7cb 2014-05-23 2014-05-23 Unknown nullFlavo Comprehensi 8114 0fc0-2 [facility] 19:16:00 19:16:00 r ve Heart 1a8-09g6-1 l Care PA [id number] [facility] nn 4e3e19 2014-05-23 2014-05-23 Unknown nullFlavo Comprehensi 203e 6fa3-d Memoria 19:16:00 19:16:00 r ve Heart bdc-4bff-8 l Care PA [id number] [facility] nn 1d6c04 2014-05-23 2014-05-23 Unknown nullFlavo Comprehensi 3bc9 4325-5 [facility]oria 19:16:00 19:16:00 r ve Heart 19a-4dd9-a l Care PA 1be-4163a6 [facility] nn 90df66 2014-05-23 2014-05-23 Unknown nullFlavo Comprehensi 6f04 275e-3 [facility] 19:16:00 19:16:00 r ve Heart 156-491d-9 l Care PA 82d-4b1d1e [facility] nn 74056d 2014-05-23 2014-05-23 Unknown nullFlavo Comprehensi 2431 7a0f-1 [facility] 19:16:00 19:16:00 r ve Heart 6j0-039b-m l Care PA 0h4-y2k8le [facility] nn a1c67d 2014-05-23 2014-05-23 Unknown nullFlavo Comprehensi 69fc 8f62-8 [facility] 19:16:00 19:16:00 r ve Heart 764-45a8-9 l Care PA 76e-d819e2 [facility] nn 103e33 2014-05-23 2014-05-23 Unknown nullFlavo Comprehensi 2a8c d8c6-a [facility]oria 19:16:00 19:16:00 r ve Heart 6ba-4541-8 l Care PA 76a-2b87fc [facility] nn 2d4b9d 2014-05-23 2014-05-23 Unknown nullFlavo Comprehensi 73c1 eeaa-3 [facility] 19:16:00 19:16:00 r ve Heart ed9-45d6-b l Care PA 8fa-d59e4f [facility] nn aad25b 2014-05-23 2014-05-23 Unknown nullFlavo Comprehensi a10c 0017-2 Memoria 19:16:00 19:16:00 r ve Heart u22-641j-4 l Care PA 978-2e87e6 [facility] nn [id number] 1024-09-10 2014-05-23 Unknown nullFlavo Comprehensi e9b0 f3a1-2 Memoria 19:16:00 19:16:00 r ve Heart x4h-9g55-b l Care PA b6t-7h7455 [facility] nn 47c2de 2014-05-23 2014-05-23 Unknown nullFlavo Comprehensi 7a31 3e34-e Memoria 19:16:00 19:16:00 r ve Heart 400-4932-8 l Care PA u69-2te61q [facility] nn c8ac2b 2014-05-23 2014-05-23 Outpatient Comprehen Comprehensi 3 [id number] eClinic 14:16:00 14:16:00 sive ve Heart alWor tn Heart Care PA Care PA 2014-05-23 2014-05-23 Outpatient Comprehen Comprehensi 3 97817 eClinic 14:16:00 14:16:00 sive ve Heart alWor tn Heart Care PA Care PA 2014-05-17 2014-05-17 Unknown nullFlavo Comprehensi 2fef 663f-9 Memoria 21:48:00 21:48:00 r ve Heart 159-4851-b l Care PA g28-k62g05 [facility] nn [id number] 2014-05-17 2014-05-17 Unknown nullFlavo Comprehensi a5b0 f607-3 Memoria 21:48:00 21:48:00 r ve Heart 67b-46a1-b l Care PA 35e-9wr186 [facility] nn 26037u 2014-05-17 2014-05-17 Unknown nullFlavo Comprehensi d21e b799-d Memoria 21:48:00 21:48:00 r ve Heart 02c-46f3-b l Care PA 175-36a0a2 [facility] nn 0wa291 2014-05-17 2014-05-17 Unknown nullFlavo Comprehensi 11d9 59a5-4 Memoria 21:48:00 21:48:00 r ve Heart n3i-69l4-6 l Care PA q90-z6m851 [facility] nn 0273ea 2014-05-17 2014-05-17 Unknown nullFlavo Comprehensi 32c3 f66c-7 Memoria 21:48:00 21:48:00 r ve Heart 3z7-021z-3 l Care PA 5c4-s090l7 [facility] nn 618b5a 2014-05-17 2014-05-17 Unknown nullFlavo Comprehensi 1406 3a4a-3 Memoria 21:48:00 21:48:00 r ve Heart 2fc-4b75-9 l Care PA 420-ddae8d [facility] nn 54d99f 2014-05-17 2014-05-17 Unknown nullFlavo Comprehensi 07b7 b3a0-6 Memoria 21:48:00 21:48:00 r ve Heart 248-4dae-9 l Care PA 0ae-4wx134 [facility] nn b14df5 2014-05-17 2014-05-17 Unknown nullFlavo Comprehensi 2fef 663f-9 Memoria 21:48:00 21:48:00 r ve Heart 159-4851-b l Care PA c83-b60x18 [facility] nn [id number] 2014-05-17 2014-05-17 Unknown nullFlavo Comprehensi a5b0 f607-3 Memoria 21:48:00 21:48:00 r ve Heart 67b-46a1-b l Care PA 35e-1fl305 [facility] nn 76103r 2014-05-17 2014-05-17 Unknown nullFlavo Comprehensi d21e b799-d Memoria 21:48:00 21:48:00 r ve Heart 02c-46f3-b l Care PA 175-36a0a2 [facility] nn 4rz946 2014-05-17 2014-05-17 Unknown nullFlavo Comprehensi 11d9 59a5-4 Memoria 21:48:00 21:48:00 r ve Heart w3p-03l5-7 l Care PA w88-l1t473 [facility] nn 0273ea 2014-05-17 2014-05-17 Unknown nullFlavo Comprehensi 32c3 f66c-7 Memoria 21:48:00 21:48:00 r ve Heart 7b6-936t-0 l Care PA 9t5-f288f5 [facility] nn 618b5a 2014-05-17 2014-05-17 Unknown nullFlavo Comprehensi 1406 3a4a-3 Memoria 21:48:00 21:48:00 r ve Heart 2fc-4b75-9 l Care PA 420-ddae8d [facility] nn 54d99f 2014-05-17 2014-05-17 Unknown nullFlavo Comprehensi 07b7 b3a0-6 Memoria 21:48:00 21:48:00 r ve Heart 248-4dae-9 l Care PA 0ae-7td174 [facility] nn b14df5 2014-05-17 2014-05-17 Unknown nullFlavo Comprehensi a5b0 f607-3 Memoria 21:48:00 21:48:00 r ve Heart 67b-46a1-b l Care PA 35e-4nn347 [facility] nn 41031m 2014-05-17 2014-05-17 Unknown nullFlavo Comprehensi d21e b799-d Memoria 21:48:00 21:48:00 r ve Heart 02c-46f3-b l Care PA 175-36a0a2 [facility] nn 0fw058 2014-05-17 2014-05-17 Unknown nullFlavo Comprehensi 1406 3a4a-3 Memoria 21:48:00 21:48:00 r ve Heart 2fc-4b75-9 l Care PA 420-ddae8d [facility] nn 54d99f 2014-05-17 2014-05-17 Unknown nullFlavo Comprehensi 07b7 b3a0-6 Memoria 21:48:00 21:48:00 r ve Heart 248-4dae-9 l Care PA 0ae-0pv333 [facility] nn b14df5 2014-05-17 2014-05-17 Unknown nullFlavo Comprehensi 2fef 663f-9 Memoria 21:48:00 21:48:00 r ve Heart 159-4851-b l Care PA f57-i48l18 [facility] nn 7l5495 2014-05-17 2014-05-17 Unknown nullFlavo Comprehensi 32c3 f66c-7 Memoria 21:48:00 21:48:00 r ve Heart 5c4-377t-2 l Care PA 5j7-y153n8 [facility] nn 618b5a 2014-05-17 2014-05-17 Unknown nullFlavo Comprehensi 11d9 59a5-4 Memoria 21:48:00 21:48:00 r ve Heart h9h-30w7-2 l Care PA b92-n2o231 [facility] nn 0273ea 2014-05-17 2014-05-17 Unknown nullFlavo Comprehensi 8181 ef5f-e Memoria 20:48:00 20:48:00 r ve Heart 3p0-5jsl-u l Care PA 304-481daa [facility] nn d110cb 2014-05-17 2014-05-17 Unknown nullFlavo Comprehensi 2c7c 6ec7-a Memoria 20:48:00 20:48:00 r ve Heart 305-4ab5-b l Care PA 79d-994ff3 [facility] nn 423309 8469-09-04 2014-05-17 Unknown nullFlavo Comprehensi d377 bb7a-0 Memoria 20:48:00 20:48:00 r ve Heart 73e-495b-8 l Care PA 049-755e72 [facility] nn 241034 8273-09-04 2014-05-17 Unknown nullFlavo Comprehensi cd46 c474-8 Memoria 20:48:00 20:48:00 r ve Heart 542-473d-b l Care PA 7t5-2x3947 [facility] nn 38ca95 2014-05-17 2014-05-17 Unknown nullFlavo Comprehensi 0345 b909-e Memoria 20:48:00 20:48:00 r ve Heart 235-4652-a l Care PA 274-6x8482 [facility] nn 7pj841 2014-05-17 2014-05-17 Unknown nullFlavo Comprehensi dfac 501a-7 Memoria 20:48:00 20:48:00 r ve Heart 034-442a-b l Care PA a55-n8lt64 [facility] nn 32766x 2014-05-17 2014-05-17 Unknown nullFlavo Comprehensi 03c9 9e7d-6 Memoria 20:48:00 20:48:00 r ve Heart 5eb-4f1d-8 l Care PA v78-3mon66 [facility] nn 14t992 2014-05-17 2014-05-17 Unknown nullFlavo Comprehensi 2565 1d58-6 Memoria 20:48:00 20:48:00 r ve Heart 62f-4c35-a l Care PA 407-91e8db [facility] nn [id number] 2014-05-17 2014-05-17 Unknown nullFlavo Comprehensi 99f9 2897-a Memoria 20:48:00 20:48:00 r ve Heart l3b-7400-5 l Care PA 950-8d1b21 [facility] nn 99822q 2014-05-17 2014-05-17 Unknown nullFlavo Comprehensi 8253 e9d7-9 Memoria 20:48:00 20:48:00 r ve Heart 0w6-0m8p-2 l Care PA 0f8-2l543p [facility] nn 5e7d66 2014-05-17 2014-05-17 Unknown nullFlavo Comprehensi f7a0 bc45-f Mem[facility] 20:48:00 20:48:00 r ve Heart 604-4e2c-8 l Care PA 221-532fdd [facility] nn 15ea4f 2014-05-17 2014-05-17 Unknown nullFlavo Comprehensi 72c3 9422-1 Memoria 20:48:00 20:48:00 r ve Heart bf2-4578-9 l Care PA 103-ox760p [facility] nn c5m640 2014-05-17 2014-05-17 Unknown nullFlavo Comprehensi d537 e4a0-5 Memoria 20:48:00 20:48:00 r ve Heart 102-481a-9 l Care PA k1n-qsz142 [facility] nn [id number] 2014-05-17 2014-05-17 Unknown nullFlavo Comprehensi 93cf 1249-d Memoria 20:48:00 20:48:00 r ve Heart 123-49d7-8 l Care PA 46b-8b47da [facility] nn 252702 7896-09-04 2014-05-17 Unknown nullFlavo Comprehensi 92ae 2d77-b Memoria 20:48:00 20:48:00 r ve Heart 6u6-70i5-1 l Care PA o02-m9ysem [facility] nn 36526n 2014-05-17 2014-05-17 Unknown nullFlavo Comprehensi ab58 0265-8 Memoria 20:48:00 20:48:00 r ve Heart acb-48a2-b l Care PA 20c-a7efca [facility] nn aaa3db 2014-05-17 2014-05-17 Unknown nullFlavo Comprehensi 8181 ef5f-e Memoria 20:48:00 20:48:00 r ve Heart 3x8-0klw-d l Care PA 304-481daa [facility] nn d110cb 2014-05-17 2014-05-17 Unknown nullFlavo Comprehensi 2c7c 6ec7-a Memoria 20:48:00 20:48:00 r ve Heart 305-4ab5-b l Care PA 79d-994ff3 [facility] nn 839383 6804-09-04 2014-05-17 Unknown nullFlavo Comprehensi d377 bb7a-0 Memoria 20:48:00 20:48:00 r ve Heart 73e-495b-8 l Care PA 049-755e72 [facility] nn 497225 2091-09-04 2014-05-17 Unknown nullFlavo Comprehensi cd46 c474-8 Memoria 20:48:00 20:48:00 r ve Heart 542-473d-b l Care PA 1m4-5c4992 [facility] nn 38ca95 2014-05-17 2014-05-17 Unknown nullFlavo Comprehensi 0345 b909-e Memoria 20:48:00 20:48:00 r ve Heart 235-4652-a l Care PA 274-1q5557 [facility] nn 1ot578 2014-05-17 2014-05-17 Unknown nullFlavo Comprehensi dfac 501a-7 Memoria 20:48:00 20:48:00 r ve Heart 034-442a-b l Care PA f10-s9xg57 [facility] nn 98457p 2014-05-17 2014-05-17 Unknown nullFlavo Comprehensi 03c9 9e7d-6 Memoria 20:48:00 20:48:00 r ve Heart 5eb-4f1d-8 l Care PA t19-1qvy58 [facility] nn 75h448 2014-05-17 2014-05-17 Unknown nullFlavo Comprehensi 2565 1d58-6 Memoria 20:48:00 20:48:00 r ve Heart 62f-4c35-a l Care PA 407-91e8db [facility] nn [id number] 2014-05-17 2014-05-17 Unknown nullFlavo Comprehensi 99f9 2897-a Memoria 20:48:00 20:48:00 r ve Heart l6r-4626-8 l Care PA 950-8d1b21 [facility] nn 64408d 2014-05-17 2014-05-17 Unknown nullFlavo Comprehensi 8253 e9d7-9 Memoria 20:48:00 20:48:00 r ve Heart 7w7-4d5o-9 l Care PA 6n4-5f813k [facility] nn 5e7d66 2014-05-17 2014-05-17 Unknown nullFlavo Comprehensi f7a0 bc45-f Memoria 20:48:00 20:48:00 r ve Heart 604-4e2c-8 l Care PA 221-532fdd [facility] nn 15ea4f 2014-05-17 2014-05-17 Unknown nullFlavo Comprehensi 72c3 9422-1 Memoria 20:48:00 20:48:00 r ve Heart bf2-4578-9 l Care PA 103-oy580d [facility] nn z1q468 2014-05-17 2014-05-17 Unknown nullFlavo Comprehensi d537 e4a0-5 Memoria 20:48:00 20:48:00 r ve Heart 102-481a-9 l Care PA b2q-fhl742 [facility] nn b12282 2014-05-17 2014-05-17 Unknown nullFlavo Comprehensi 93cf 1249-d Memoria 20:48:00 20:48:00 r ve Heart 123-49d7-8 l Care PA 46b-8b47da [facility] nn 786834 9669-09-04 2014-05-17 Unknown nullFlavo Comprehensi 92ae 2d77-b Memoria 20:48:00 20:48:00 r ve Heart 5h1-97i6-8 l Care PA e86-x7itns [facility] nn 32452a 2014-05-17 2014-05-17 Unknown nullFlavo Comprehensi ab58 0265-8 Memoria 20:48:00 20:48:00 r ve Heart acb-48a2-b l Care PA 20c-a7efca [facility] nn aaa3db 2014-05-17 2014-05-17 Unknown nullFlavo Comprehensi 2c7c 6ec7-a Memoria 20:48:00 20:48:00 r ve Heart 305-4ab5-b l Care PA 79d-994ff3 [facility] nn 026681 6997-09-04 2014-05-17 Unknown nullFlavo Comprehensi d377 bb7a-0 Memoria 20:48:00 20:48:00 r ve Heart 73e-495b-8 l Care PA 049-755e72 [facility] nn 011460 5682-09-04 2014-05-17 Unknown nullFlavo Comprehensi 0345 b909-e Memoria 20:48:00 20:48:00 r ve Heart 235-4652-a l Care PA 274-1g5573 [facility] nn 1rw833 2014-05-17 2014-05-17 Unknown nullFlavo Comprehensi 2565 1d58-6 Memoria 20:48:00 20:48:00 r ve Heart 62f-4c35-a l Care PA 407-91e8db [facility] nn [id number] 2014-05-17 2014-05-17 Unknown nullFlavo Comprehensi dfac 501a-7 Memoria 20:48:00 20:48:00 r ve Heart 034-442a-b l Care PA k66-s0os20 [facility] nn 45100d 2014-05-17 2014-05-17 Unknown nullFlavo Comprehensi cd46 c474-8 Memoria 20:48:00 20:48:00 r ve Heart 542-473d-b l Care PA 9y5-9u9462 [facility] nn 38ca95 2014-05-17 2014-05-17 Unknown nullFlavo Comprehensi 8181 ef5f-e Memoria 20:48:00 20:48:00 r ve Heart 8x1-0dug-x l Care PA 304-481daa [facility] nn d110cb 2014-05-17 2014-05-17 Unknown nullFlavo Comprehensi d537 e4a0-5 Memoria 20:48:00 20:48:00 r ve Heart 102-481a-9 l Care PA c0i-kdm216 [facility] nn d18196 2014-05-17 2014-05-17 Unknown nullFlavo Comprehensi f7a0 bc45-f Memoria 20:48:00 20:48:00 r ve Heart 604-4e2c-8 l Care PA 221-532fdd [facility] nn 15ea4f 2014-05-17 2014-05-17 Unknown nullFlavo Comprehensi 8253 e9d7-9 Memoria 20:48:00 20:48:00 r ve Heart 3d3-0d9j-0 l Care PA 7e6-7p197m [facility] nn 5e7d66 2014-05-17 2014-05-17 Unknown nullFlavo Comprehensi 03c9 9e7d-6 Memoria 20:48:00 20:48:00 r ve Heart 5eb-4f1d-8 l Care PA o66-7zzo28 [facility] nn [id number] 2014-05-17 2014-05-17 Unknown nullFlavo Comprehensi 99f9 2897-a Memoria 20:48:00 20:48:00 r ve Heart h9a-5081-0 l Care PA 950-8d1b21 [facility] nn 14914n 2014-05-17 2014-05-17 Unknown nullFlavo Comprehensi 93cf 1249-d Memoria 20:48:00 20:48:00 r ve Heart 123-49d7-8 l Care PA 46b-8b47da [facility] nn 877745 8685-09-04 2014-05-17 Unknown nullFlavo Comprehensi 72c3 9422-1 Memoria 20:48:00 20:48:00 r ve Heart bf2-4578-9 l Care PA 103-by507u [facility] nn w2x410 2014-05-17 2014-05-17 Unknown nullFlavo Comprehensi 92ae 2d77-b Memoria 20:48:00 20:48:00 r ve Heart 8m2-13t9-9 l Care PA v19-h7tsav [facility] nn 61772m 2014-05-17 2014-05-17 Unknown nullFlavo Comprehensi ab58 0265-8 Memoria 20:48:00 20:48:00 r ve Heart acb-48a2-b l Care PA 20c-a7efca [facility] nn aaa3db 2014-05-17 2014-05-17 Outpatient Comprehen Comprehensi 3 87212 eClinic 15:48:00 15:48:[facility] 2014-05-17 2014-05-17 Outpatient Comprehen Comprehensi 3 99785 eClinic 15:48:00 15:48:00 [facility] 2014-05-08 2014-05-08 Unknown nullFlavo Comprehensi 673b 4764-c Memoria 20:00:00 20:00:00 r ve Heart w15-1c2t-4 l Care PA x70-jl7nok [facility] nn a010ae 2014-05-08 2014-05-08 Unknown nullFlavo Comprehensi 4cf6 afd5-e Memoria 20:00:00 20:00:00 r ve Heart 3de-4b37-a l Care PA 7q6-04jx53 [facility] nn bcad81 2014-05-08 2014-05-08 Unknown nullFlavo Comprehensi acd7 b62a-7 Memoria 20:00:00 20:00:00 r ve Heart 45a-47bf-8 l Care PA 1j9-hjz467 [facility] nn 513050 9118-08-26 2014-05-08 Unknown nullFlavo Comprehensi a507 062e-8 Memoria 20:00:00 20:00:00 r ve Heart 333-475a-9 l Care PA 5l8-40zzv6 [facility] nn [id number] 2014-05-08 2014-05-08 Unknown nullFlavo Comprehensi 7a56 31c7-8 Memoria 20:00:00 20:00:00 r ve Heart 5z5-5y2u-6 l Care PA 646-48048s [facility] nn f55a91 2014-05-08 2014-05-08 Unknown nullFlavo Comprehensi e768 626d-c Memoria 20:00:00 20:00:00 r ve Heart 9k4-564i-a l Care PA 859-2d38be [facility] nn c3cda8 2014-05-08 2014-05-08 Unknown nullFlavo Comprehensi 2bb9 b2d4-0 Memoria 20:00:00 20:00:00 r ve Heart 891-49d6-9 l Care PA 6eb-su802g [facility] nn 410548 3232-08-26 2014-05-08 Unknown nullFlavo Comprehensi 673b 4764-c Memoria 20:00:00 20:00:00 r ve Heart w54-3a1y-8 l Care PA h89-hz3sdb [facility] nn a010ae 2014-05-08 2014-05-08 Unknown nullFlavo Comprehensi 4cf6 afd5-e Memoria 20:00:00 20:00:00 r ve Heart 3de-4b37-a l Care PA 1t6-69yv12 [facility] nn bcad81 2014-05-08 2014-05-08 Unknown nullFlavo Comprehensi acd7 b62a-7 Memoria 20:00:00 20:00:00 r ve Heart 45a-47bf-8 l Care PA 9c0-xeo123 [facility] nn 708628 7043-08-26 2014-05-08 Unknown nullFlavo Comprehensi a507 062e-8 Memoria 20:00:00 20:00:00 r ve Heart 333-475a-9 l Care PA 7o9-49mqu2 [facility] nn 2u7469 2014-05-08 2014-05-08 Unknown nullFlavo Comprehensi 7a56 31c7-8 Memoria 20:00:00 20:00:00 r ve Heart 0j3-6z7m-9 l Care PA 646-85817b [facility] nn f55a91 2014-05-08 2014-05-08 Unknown nullFlavo Comprehensi e768 626d-c Memoria 20:00:00 20:00:00 r ve Heart 5f2-644b-q l Care PA 859-2d38be [facility] nn c3cda8 2014-05-08 2014-05-08 Unknown nullFlavo Comprehensi 2bb9 b2d4-0 Memoria 20:00:00 20:00:00 r ve Heart 891-49d6-9 l Care PA 6eb-dv329v [facility] nn 468150 7986-08-26 2014-05-08 Unknown nullFlavo Comprehensi 4cf6 afd5-e Memoria 20:00:00 20:00:00 r ve Heart 3de-4b37-a l Care PA 2n9-56bk79 [facility] nn bcad81 2014-05-08 2014-05-08 Unknown nullFlavo Comprehensi acd7 b62a-7 Memoria 20:00:00 20:00:00 r ve Heart 45a-47bf-8 l Care PA 8r6-sfq992 [facility] nn 698814 2148-08-26 2014-05-08 Unknown nullFlavo Comprehensi e768 626d-c Memoria 20:00:00 20:00:00 r ve Heart 9o1-089k-c l Care PA 859-2d38be [facility] nn c3cda8 2014-05-08 2014-05-08 Unknown nullFlavo Comprehensi 2bb9 b2d4-0 Memoria 20:00:00 20:00:00 r ve Heart 891-49d6-9 l Care PA 6eb-mg548k [facility] nn 960347 6411-08-26 2014-05-08 Unknown nullFlavo Comprehensi 673b 4764-c Memoria 20:00:00 20:00:00 r ve Heart k73-1k6a-8 l Care PA k05-jj3ijg [facility] nn a010ae 2014-05-08 2014-05-08 Unknown nullFlavo Comprehensi 7a56 31c7-8 Memoria 20:00:00 20:00:00 r ve Heart 3m5-7r4x-9 l Care PA 646-24581e [facility] nn f55a91 2014-05-08 2014-05-08 Unknown nullFlavo Comprehensi a507 062e-8 Memoria 20:00:00 20:00:00 r ve Heart 333-475a-9 l Care PA 0g7-15iij4 [facility] nn [id number] 2014-05-08 2014-05-08 Unknown nullFlavo Comprehensi 1005 3944-0 Memoria 19:00:00 19:00:00 r ve Heart 352-4633-b l Care PA cc4-51cc3c [facility] nn 5adca2 2014-05-08 2014-05-08 Unknown nullFlavo Comprehensi 2d6f 8506-f Memoria 19:00:00 19:00:00 r ve Heart 2cb-4164-9 l Care PA k07-z85r10 [facility] nn 2d99c8 2014-05-08 2014-05-08 Unknown nullFlavo Comprehensi 96d9 fd1b-8 Memoria 19:00:00 19:00:00 r ve Heart 880-43cd-9 l Care PA 6s3-e8hf68 [facility] nn pve046 2014-05-08 2014-05-08 Unknown nullFlavo Comprehensi fba2 79e8-8 Memoria 19:00:00 19:00:00 r ve Heart 880-4582-9 l Care PA 2fe-5lz376 [facility] nn 37891y 2014-05-08 2014-05-08 Unknown nullFlavo Comprehensi 7f6b ba5e-1 Memoria 19:00:00 19:00:00 r ve Heart 38f-45d5-a l Care PA db7-5d7a56 [facility] nn 5380be 2014-05-08 2014-05-08 Unknown nullFlavo Comprehensi f24c ba57-6 Memoria 19:00:00 19:00:00 r ve Heart n6q-6s99-4 l Care PA u29-k56v58 [facility] nn b5k089 2014-05-08 2014-05-08 Unknown nullFlavo Comprehensi 218b cd21-3 Memoria 19:00:00 19:00:00 r ve Heart eaa-4ebf-8 l Care PA 7k7-605o5x [facility] nn ddf18e 2014-05-08 2014-05-08 Unknown nullFlavo Comprehensi 1ef3 cc4c-0 Memoria 19:00:00 19:00:00 r ve Heart 65c-441c-a l Care PA 898-78ab07 [facility] nn 84d23e 2014-05-08 2014-05-08 Unknown nullFlavo Comprehensi 9f9c 82ba-1 Memoria 19:00:00 19:00:00 r ve Heart 58f-4c8e-a l Care PA 33d-5yr196 [facility] nn e80e16 2014-05-08 2014-05-08 Unknown nullFlavo Comprehensi 7290 2838-0 Memoria 19:00:00 19:00:00 r ve Heart w4z-45q3-j l Care PA p8t-ukr2k9 [facility] nn 407380 4880-08-26 2014-05-08 Unknown nullFlavo Comprehensi 1c6c 2baa-7 Memoria 19:00:00 19:00:00 r ve Heart 4af-45b7-b l Care PA 019-uc598z [facility] nn 28d12d 2014-05-08 2014-05-08 Unknown nullFlavo Comprehensi 0bf1 81c6-8 Memoria 19:00:00 19:00:00 r ve Heart 953-44a7-b l Care PA 2d9-f7n6x4 [facility] nn b98f8e 2014-05-08 2014-05-08 Unknown nullFlavo Comprehensi 2908 9dfd-1 Memoria 19:00:00 19:00:00 r ve Heart k38-8727-i l Care PA 366-8t2904 [facility] nn hf3632 2014-05-08 2014-05-08 Unknown nullFlavo Comprehensi fafb e4d1-3 Memoria 19:00:00 19:00:00 r ve Heart 04e-4d20-a l Care PA 2u5-l2073v [facility] nn 9dee1c 2014-05-08 2014-05-08 Unknown nullFlavo Comprehensi e6eb 948d-6 Memoria 19:00:00 19:00:00 r ve Heart 85a-41ff-9 l Care PA a55-xmiq77 [facility] nn 55762y 2014-05-08 2014-05-08 Unknown nullFlavo Comprehensi 0ff0 5db3-6 Memoria 19:00:00 19:00:00 r ve Heart 3n7-9659-d l Care PA k39-4297h3 [facility] nn 4k689d 2014-05-08 2014-05-08 Unknown nullFlavo Comprehensi 1005 3944-0 Memoria 19:00:00 19:00:00 r ve Heart 352-4633-b l Care PA cc4-51cc3c [facility] nn 5adca2 2014-05-08 2014-05-08 Unknown nullFlavo Comprehensi 2d6f 8506-f Memoria 19:00:00 19:00:00 r ve Heart 2cb-4164-9 l Care PA m46-p76j37 [facility] nn 2d99c8 2014-05-08 2014-05-08 Unknown nullFlavo Comprehensi 96d9 fd1b-8 Memoria 19:00:00 19:00:00 r ve Heart 880-43cd-9 l Care PA 2x5-y7fh05 [facility] nn usr825 2014-05-08 2014-05-08 Unknown nullFlavo Comprehensi fba2 79e8-8 Memoria 19:00:00 19:00:00 r ve Heart 880-4582-9 l Care PA 2fe-5na300 [facility] nn 45844u 2014-05-08 2014-05-08 Unknown nullFlavo Comprehensi 7f6b ba5e-1 Memoria 19:00:00 19:00:00 r ve Heart 38f-45d5-a l Care PA db7-5d7a56 [facility] nn 5380be 2014-05-08 2014-05-08 Unknown nullFlavo Comprehensi f24c ba57-6 Memoria 19:00:00 19:00:00 r ve Heart t8r-0n54-9 l Care PA z56-v75b28 [facility] nn i2d755 2014-05-08 2014-05-08 Unknown nullFlavo Comprehensi 218b cd21-3 Memoria 19:00:00 19:00:00 r ve Heart eaa-4ebf-8 l Care PA 5g9-007b6i [facility] nn ddf18e 2014-05-08 2014-05-08 Unknown nullFlavo Comprehensi 1ef3 cc4c-0 Memoria 19:00:00 19:00:00 r ve Heart 65c-441c-a l Care PA 898-78ab07 [facility] nn 84d23e 2014-05-08 2014-05-08 Unknown nullFlavo Comprehensi 9f9c 82ba-1 [facility]oria 19:00:00 19:00:00 r ve Heart 58f-4c8e-a l Care PA [id number] [facility] nn [id number] 2014-05-08 2014-05-08 Unknown nullFlavo Comprehensi 7290 2838-0 [facility]oria 19:00:00 19:00:00 r ve Heart d5x-37g9-b l Care PA [id number]-mpg3r1 [facility] nn [id number] 3726-08-26 2014-05-08 Unknown nullFlavo Comprehensi 1c6c 2baa-7 [facility] 19:00:00 19:00:00 r ve Heart 4af-45b7-b l Care PA 019-nv204p Haylee nn 28d12d 2014-05-08 2014-05-08 Unknown nullFlavo Comprehensi 0bf1 81c6-8 [facility]oria 19:00:00 19:00:00 r ve Heart 953-44a7-b l Care PA [id number]-y6v5x4 [facility] nn b98f8e 2014-05-08 2014-05-08 Unknown nullFlavo Comprehensi 2908 9dfd-1 [facility] 19:00:00 19:00:00 r ve Heart r76-4512-n l Care PA [id number] [facility] nn ln3134 2014-05-08 2014-05-08 Unknown nullFlavo Comprehensi fafb e4d1-3 [facility] 19:00:00 19:00:00 r ve Heart 04e-4d20-a l Care PA [id number]-p6451t Haylee nn 9dee1c 2014-05-08 2014-05-08 Unknown nullFlavo Comprehensi e6eb 948d-6 [facility] 19:00:00 19:00:00 r ve Heart 85a-41ff-9 l Care PA [id number]-iynq22 [facility] nn 34374v 2014-05-08 2014-05-08 Unknown nullFlavo Comprehensi 0ff0 5db3-6 [facility] 19:00:00 19:00:00 r ve Heart 1g5-2208-a l Care PA g06-1163f7 [facility] nn 2c233t 2014-05-08 2014-05-08 Unknown nullFlavo Comprehensi 2d6f 8506-f [facility] 19:00:00 19:00:00 r ve Heart 2cb-4164-9 l Care PA y17-u14c17 [facility] nn 2d99c8 2014-05-08 2014-05-08 Unknown nullFlavo Comprehensi 96d9 fd1b-8 [facility] 19:00:00 19:00:00 r ve Heart 880-43cd-9 l Care PA [id number]-b7gz28 [facility] nn [id number] 2014-05-08 2014-05-08 Unknown nullFlavo Comprehensi 7f6b ba5e-1 [facility] 19:00:00 19:00:00 r ve Heart 38f-45d5-a l Care PA [id number] Haylee nn [id number] 2014-05-08 2014-05-08 Unknown nullFlavo Comprehensi 1ef3 cc4c-0 [facility] 19:00:00 19:00:00 r ve Heart 65c-441c-a l Care PA [id number] Haylee nn 84d23e 2014-05-08 2014-05-08 Unknown nullFlavo Comprehensi f24c ba57-6 [facility] 19:00:00 19:00:00 r ve Heart q5v-0f81-0 l Care PA d39-s34n62 Haylee nn [id number] 2014-05-08 2014-05-08 Unknown nullFlavo Comprehensi fba2 79e8-8 [facility] 19:00:00 19:00:00 r ve Heart 880-4582-9 l Care PA [id number]-4fd774 Haylee nn 04447b 2014-05-08 2014-05-08 Unknown nullFlavo Comprehensi 1005 3944-0 [facility] 19:00:00 19:00:00 r ve Heart 352-4633-b l Care PA cc4-51cc3c Haylee nn 5adca2 2014-05-08 2014-05-08 Unknown nullFlavo Comprehensi 2908 9dfd-1 [facility] 19:00:00 19:00:00 r ve Heart t61-5139-n l Care PA [id number] [facility] nn te0315 2014-05-08 2014-05-08 Unknown nullFlavo Comprehensi 1c6c 2baa-7 [facility] 19:00:00 19:00:00 r ve Heart 4af-45b7-b l Care PA 019-nz721u [facility] nn 28d12d 2014-05-08 2014-05-08 Unknown nullFlavo Comprehensi 7290 2838-0 [facility] 19:00:00 19:00:00 r ve Heart w9z-08o9-e l Care PA [id number]-jjt2f1 [facility] nn [id number] 5673-08-26 2014-05-08 Unknown nullFlavo Comprehensi 218b cd21-3 [facility] 19:00:00 19:00:00 r ve Heart eaa-4ebf-8 l Care PA 9h9-941l0u [facility] nn ddf18e 2014-05-08 2014-05-08 Unknown nullFlavo Comprehensi 9f9c 82ba-1 [facility] 19:00:00 19:00:00 r ve Heart 58f-4c8e-a l Care PA [id number]-6fe143 Haylee nn e80e16 2014-05-08 2014-05-08 Unknown nullFlavo Comprehensi fafb e4d1-3 [facility] 19:00:00 19:00:00 r ve Heart 04e-4d20-a l Care PA 0m0-v5352p Haylee nn 9dee1c 2014-05-08 2014-05-08 Unknown nullFlavo Comprehensi 0bf1 81c6-8 [facility] 19:00:00 19:00:00 r ve Heart 953-44a7-b l Care PA 9l1-b2x0l4 Haylee nn b98f8e 2014-05-08 2014-05-08 Unknown nullFlavo Comprehensi e6eb 948d-6 [facility] 19:00:00 19:00:00 r ve Heart 85a-41ff-9 l Care PA i58-iseh39 Haylee nn 20487l 2014-05-08 2014-05-08 Unknown nullFlavo Comprehensi 0ff0 5db3-6 [facility] 19:00:00 19:00:00 r ve Heart 5k7-6699-z l Care PA [id number] [facility]lee nn 4x823i 2014-05-08 2014-05-08 Outpatient Comprehen Comprehensi 2 [id number] [facility] 14:00:00 14:00:00 sive ve Heart alWor tn Heart Care PA Care PA 2014-05-08 2014-05-08 Outpatient Comprehen Comprehensi 2 [id number] [facility] 14:00:00 14:00:00 sive ve [facility] alWor tn Heart Care PA Care PA 2014-01-08 2014-01-08 Unknown nullFlavo Comprehensi e59c ee45-a [facility] 22:00:00 22:00:00 r ve Heart 9s8-75r6-n l Care PA 96d-ee29a7 [facility]lee nn 15fda4 2014-01-08 2014-01-08 Unknown nullFlavo Comprehensi 8b2a 47e6-9 [facility] 22:00:00 22:00:00 r ve Heart 3ac-4f19-b l Care PA 96a-65b36c Haylee nn 1dfe35 2014-01-08 2014-01-08 Unknown nullFlavo Comprehensi 84d7 7d55-4 [facility] 22:00:00 22:00:00 r ve Heart n0b-23fd-8 l Care PA bd8-9ddf01 [facility]lee nn aa6d61 2014-01-08 2014-01-08 Unknown nullFlavo Comprehensi 387d 76d8-2 [facility] 22:00:00 22:00:00 r ve Heart cba-4bdd-a l Care PA 840-af7f87 Haylee nn 45e735 2014-01-08 2014-01-08 Unknown nullFlavo Comprehensi 5696 5171-9 [facility] 22:00:00 22:00:00 r ve Heart 5f7-75c2-3 l Care PA 948-8s5685 Haylee nn 724a28 2014-01-08 2014-01-08 Unknown nullFlavo Comprehensi f5d1 d7fa-2 [facility] 22:00:00 22:00:00 r ve Heart 2j3-41t6-5 l Care PA 8x5-a52ag7 Haylee nn 101f9b 2014-01-08 2014-01-08 Unknown nullFlavo Comprehensi bce2 2080-2 [facility] 22:00:00 22:00:00 r ve Heart 870-4b94-8 l Care PA m60-lj65cx Haylee nn 92p660 2014-01-08 2014-01-08 Unknown nullFlavo Comprehensi e59c ee45-a [facility] 22:00:00 22:00:00 r ve Heart 8z4-96a2-p l Care PA 96d-ee29a7 Haylee nn 15fda4 2014-01-08 2014-01-08 Unknown nullFlavo Comprehensi 8b2a 47e6-9 [facility] 22:00:00 22:00:00 r ve Heart 3ac-4f19-b l Care PA 96a-65b36c Haylee nn 1dfe35 2014-01-08 2014-01-08 Unknown nullFlavo Comprehensi 84d7 7d55-4 [facility] 22:00:00 22:00:00 r ve Heart m6w-54tc-4 l Care PA bd8-9ddf01 Haylee nn aa6d61 2014-01-08 2014-01-08 Unknown nullFlavo Comprehensi 387d 76d8-2 [facility] 22:00:00 22:00:00 r ve Heart cba-4bdd-a l Care PA 840-af7f87 Haylee nn 88e486 2014-01-08 2014-01-08 Unknown nullFlavo Comprehensi 5696 5171-9 [facility] 22:00:00 22:00:00 r ve Heart 7u8-94o1-3 l Care PA 948-0u8545 Haylee nn 724a28 2014-01-08 2014-01-08 Unknown nullFlavo Comprehensi f5d1 d7fa-2 [facility] 22:00:00 22:00:00 r ve Heart 2u9-19m6-6 l Care PA 7a9-f73jh4 Haylee nn 101f9b 2014-01-08 2014-01-08 Unknown nullFlavo Comprehensi bce2 0-2 [facility] 22:00:00 22:00:00 r ve Heart 870-4b94-8 l Care PA o01-ic42ug Haylee nn 10p785 2014-01-08 2014-01-08 Unknown nullFlavo Comprehensi 8b2a 47e6-9 [facility] 22:00:00 22:00:00 r ve Heart 3ac-4f19-b l Care PA 96a-65b36c Haylee nn 1dfe35 2014-01-08 2014-01-08 Unknown nullFlavo Comprehensi 84d7 7d55-4 [facility] 22:00:00 22:00:00 r ve Heart i4e-66su-1 l Care PA bd8-9ddf01 Haylee nn aa6d61 2014-01-08 2014-01-08 Unknown nullFlavo Comprehensi f5d1 d7fa-2 [facility] 22:00:00 22:00:00 r ve Heart 9v3-25p6-2 l Care PA 9x5-c40xs4 Haylee nn 101f9b 2014-01-08 2014-01-08 Unknown nullFlavo Comprehensi bce2 0-2 [facility] 22:00:00 22:00:00 r ve Heart 870-4b94-8 l Care PA c08-bs53tg Haylee nn 57a463 2014-01-08 2014-01-08 Unknown nullFlavo Comprehensi e59c ee45-a [facility] 22:00:00 22:00:00 r ve Heart 9l4-39s7-y l Care PA 96d-ee29a7 Haylee nn 15fda4 2014-01-08 2014-01-08 Unknown nullFlavo Comprehensi 5696 5171-9 [facility] 22:00:00 22:00:00 r ve Heart 0z7-04q2-7 l Care PA 948-5b8607 Haylee nn 724a28 2014-01-08 2014-01-08 Unknown nullFlavo Comprehensi 387d 76d8-2 [facility] 22:00:00 22:00:00 r ve Heart cba-4bdd-a l Care PA 840-af7f87 Haylee nn 56p786 2014-01-08 2014-01-08 Unknown nullFlavo Comprehensi 9b32 0cef-5 [facility] 21:00:00 21:00:00 r ve Heart 2w8-5p42-6 l Care PA 89f-e89cb3 Haylee nn 146556 3260-04-28 2014-01-08 Unknown nullFlavo Comprehensi 195d fbbd-5 [facility] 21:00:00 21:00:00 r ve Heart 03a-4c96-8 l Care PA 781-d6bdd2 Haylee nn 9a3d1f 2014-01-08 2014-01-08 Unknown nullFlavo Comprehensi 0c8e f5cf-3 [facility] 21:00:00 21:00:00 r ve Heart 1n8-4673-2 l Care PA j38-72lw51 Haylee nn 90007p 2014-01-08 2014-01-08 Unknown nullFlavo Comprehensi bbd0 1502-6 [facility] 21:00:00 21:00:00 r ve Heart 99e-4605-9 l Care PA yaneth-6f7e61 Haylee nn 3a02f4 2014-01-08 2014-01-08 Unknown nullFlavo Comprehensi 0613 43a5-6 [facility] 21:00:00 21:00:00 r ve Heart 8q4-720l-8 l Care PA ec0-4d9a67 Haylee nn n4089c 2014-01-08 2014-01-08 Unknown nullFlavo Comprehensi 2c42 420a-6 [facility] 21:00:00 21:00:00 r ve Heart 052-44f0-a l Care PA 1k7-8bx52r Haylee nn 2ca0cc 2014-01-08 2014-01-08 Unknown nullFlavo Comprehensi 93f9 86ae-c [facility] 21:00:00 21:00:00 r ve Heart 112-4ad7-9 l Care PA r21-e1i934 Haylee nn 215aba 2014-01-08 2014-01-08 Unknown nullFlavo Comprehensi 4850 a812-9 [facility] 21:00:00 21:00:00 r ve Heart 58e-4039-8 l Care PA 6c7-j8696d Haylee nn fdba48 2014-01-08 2014-01-08 Unknown nullFlavo Comprehensi abfb f2e1-7 [facility] 21:00:00 21:00:00 r ve Heart 8fe-4434-b l Care PA z9z-6o39yr [facility] nn s7w287 2014-01-08 2014-01-08 Unknown nullFlavo Comprehensi 4fae 1b1d-8 Mem[facility] 21:00:00 21:00:00 r ve Heart 0ac-425f-a l Care PA eed-4c4fdb [facility] nn 375a2b 2014-01-08 2014-01-08 Unknown nullFlavo Comprehensi bb21 389d-f Mem[facility] 21:00:00 21:00:00 r ve Heart d06-994f-r l Care PA 747-a1c8a1 [facility] nn ff94b0 2014-01-08 2014-01-08 Unknown nullFlavo Comprehensi 7454 349f-d Mem[facility] 21:00:00 21:00:00 r ve Heart 074-45d0-9 l Care PA 42a-ff7e18 [facility] nn 73fcfb 2014-01-08 2014-01-08 Unknown nullFlavo Comprehensi 2b4c aac8-a [facility] 21:00:00 21:00:00 r ve Heart w6m-8730-0 l Care PA 824-1c42c7 [facility] nn e7ba6b 2014-01-08 2014-01-08 Unknown nullFlavo Comprehensi 1d32 a52f-4 [facility] 21:00:00 21:00:00 r ve Heart 6m4-5b71-m l Care PA fb3-56w494 Haylee nn 551b7e 2014-01-08 2014-01-08 Unknown nullFlavo Comprehensi b64e 7e3f-e [facility] 21:00:00 21:00:00 r ve Heart w44-87k2-l l Care PA 4z8-4s7pq4 [facility] nn wq0458 2014-01-08 2014-01-08 Unknown nullFlavo Comprehensi 77e6 c2f5-3 [facility] 21:00:00 21:00:00 r ve Heart 59c-4ec7-a l Care PA 9b6-5d4y12 [facility] nn 638fba 2014-01-08 2014-01-08 Unknown nullFlavo Comprehensi 195d fbbd-5 [facility]oria 21:00:00 21:00:00 r ve Heart 03a-4c96-8 l Care PA 781-d6bdd2 [facility] nn 9a3d1f 2014-01-08 2014-01-08 Unknown nullFlavo Comprehensi e64d 7245-1 [facility] 21:00:00 21:00:00 r ve Heart 621-415b-b l Care PA 6a7-12f5q7 [facility] nn 175874 4576-04-28 2014-01-08 Unknown nullFlavo Comprehensi 9b32 0cef-5 [facility] 21:00:00 21:00:00 r ve Heart 9t4-6c19-4 l Care PA 89f-e89cb3 [facility] nn 203485 6194-04-28 2014-01-08 Unknown nullFlavo Comprehensi 0c8e f5cf-3 [facility] 21:00:00 21:00:00 r ve Heart 7f5-7686-8 l Care PA j65-98kx04 [facility] nn 23464o 2014-01-08 2014-01-08 Unknown nullFlavo Comprehensi bbd0 1502-6 [facility] 21:00:00 21:00:00 r ve Heart 99e-4605-9 l Care PA yaneth-6f7e61 [facility] nn 3a02f4 2014-01-08 2014-01-08 Unknown nullFlavo Comprehensi 0613 43a5-6 [facility] 21:00:00 21:00:00 r ve Heart 4r3-080z-7 l Care PA ec0-4d9a67 [facility] nn w9027e 2014-01-08 2014-01-08 Unknown nullFlavo Comprehensi 2c42 420a-6 [facility] 21:00:00 21:00:00 r ve Heart 052-44f0-a l Care PA 2q1-1ei50d Haylee nn 2ca0cc 2014-01-08 2014-01-08 Unknown nullFlavo Comprehensi 93f9 86ae-c [facility] 21:00:00 21:00:00 r ve Heart 112-4ad7-9 l Care PA t63-s7w491 Haylee nn 215aba 2014-01-08 2014-01-08 Unknown nullFlavo Comprehensi 4850 a812-9 [facility] 21:00:00 21:00:00 r ve Heart 58e-4039-8 l Care PA 0k3-e7709g Haylee nn fdba48 2014-01-08 2014-01-08 Unknown nullFlavo Comprehensi abfb f2e1-7 Memoria 21:00:00 21:00:00 r ve Heart 8fe-4434-b l Care PA n2v-9x05cd [facility]lee nn a1t387 2014-01-08 2014-01-08 Unknown nullFlavo Comprehensi 4fae 1b1d-8 [facility] 21:00:00 21:00:00 r ve Heart 0ac-425f-a l Care PA eed-4c4fdb Haylee nn 375a2b 2014-01-08 2014-01-08 Unknown nullFlavo Comprehensi bb21 389d-f [facility] 21:00:00 21:00:00 r ve Heart m03-327t-q l Care PA 747-a1c8a1 [facility] nn ff94b0 2014-01-08 2014-01-08 Unknown nullFlavo Comprehensi 7454 349f-d [facility] 21:00:00 21:00:00 r ve Heart 074-45d0-9 l Care PA 42a-ff7e18 Haylee nn 73fcfb 2014-01-08 2014-01-08 Unknown nullFlavo Comprehensi 2b4c aac8-a [facility] 21:00:00 21:00:00 r ve Heart q6u-9438-9 l Care PA 824-1c42c7 [facility]lee nn e7ba6b 2014-01-08 2014-01-08 Unknown nullFlavo Comprehensi 1d32 a52f-4 [facility] 21:00:00 21:00:00 r ve Heart 9l3-5b20-g l Care PA fb3-68c644 [facility] nn 551b7e 2014-01-08 2014-01-08 Unknown nullFlavo Comprehensi b64e 7e3f-e [facility]oria 21:00:00 21:00:00 r ve Heart w05-25j3-y l Care PA 5k5-8j9as1 [facility] bf4241 2014-01-08 2014-01-08 Unknown nullFlavo Comprehensi 77e6 c2f5-3 Memoria 21:00:00 21:00:00 r ve Heart 59c-4ec7-a l Care PA 4f0-1o8f70 [facility] nn 638fba 2014-01-08 2014-01-08 Unknown nullFlavo Comprehensi 195d fbbd-5 Memoria 21:00:00 21:00:00 r ve Heart 03a-4c96-8 l Care PA 781-d6bdd2 [facility] 9a3d1f 2014-01-08 2014-01-08 Unknown nullFlavo Comprehensi e64d 7245-1 [facility]oria 21:00:00 21:00:00 r ve Heart 621-415b-b l Care PA 3d3-63f9k4 [facility] 594382 6325-04-28 2014-01-08 Unknown nullFlavo Comprehensi 9b32 0cef-5 Memoria 21:00:00 21:00:00 r ve Heart 3f8-0e14-2 l Care PA 89f-e89cb3 [facility] 971963 9048-04-28 2014-01-08 Unknown nullFlavo Comprehensi 0c8e f5cf-3 [facility]oria 21:00:00 21:00:00 r ve Heart 6j2-1350-5 l Care PA q42-24ns10 [facility] nn 80684m 2014-01-08 2014-01-08 Unknown nullFlavo Comprehensi bbd0 1502-6 [facility] 21:00:00 21:00:00 r ve Heart 99e-4605-9 l Care PA yaneth-6f7e61 [facility] nn 3a02f4 2014-01-08 2014-01-08 Unknown nullFlavo Comprehensi 93f9 86ae-c [facility] 21:00:00 21:00:00 r ve Heart 112-4ad7-9 l Care PA a07-y0e229 [facility] nn 215aba 2014-01-08 2014-01-08 Unknown nullFlavo Comprehensi 4850 a812-9 Mem[facility] 21:00:00 21:00:00 r ve Heart 58e-4039-8 l Care PA 5o4-i6955c [facility] nn fdba48 2014-01-08 2014-01-08 Unknown nullFlavo Comprehensi 0613 43a5-6 [facility] 21:00:00 21:00:00 r ve Heart 9u6-657m-4 l Care PA ec0-4d9a67 [facility] nn n2909j 2014-01-08 2014-01-08 Unknown nullFlavo Comprehensi 4fae 1b1d-8 Memoria 21:00:00 21:00:00 r ve Heart 0ac-425f-a l Care PA eed-4c4fdb [facility] nn 375a2b 2014-01-08 2014-01-08 Unknown nullFlavo Comprehensi 2b4c aac8-a [facility] 21:00:00 21:00:00 r ve Heart g3q-5148-4 l Care PA 824-1c42c7 [facility] nn e7ba6b 2014-01-08 2014-01-08 Unknown nullFlavo Comprehensi bb21 389d-f [facility] 21:00:00 21:00:00 r ve Heart f74-043q-b l Care PA 747-a1c8a1 [facility] nn ff94b0 2014-01-08 2014-01-08 Unknown nullFlavo Comprehensi abfb f2e1-7 [facility]oria 21:00:00 21:00:00 r ve Heart 8fe-4434-b l Care PA s7d-9h67ax [facility] nn k7x792 2014-01-08 2014-01-08 Unknown nullFlavo Comprehensi 2c42 420a-6 [facility] 21:00:00 21:00:00 r ve Heart 052-44f0-a l Care PA 5e0-4ek77v [facility] nn 2ca0cc 2014-01-08 2014-01-08 Unknown nullFlavo Comprehensi e64d 7245-1 [facility] 21:00:00 21:00:00 r ve Heart 621-415b-b l Care PA 4y7-58q6f3 [facility] nn 849628 4904-04-28 2014-01-08 Unknown nullFlavo Comprehensi 77e6 c2f5-3 Memoria 21:00:00 21:00:00 r ve Heart 59c-4ec7-a l Care PA 1h7-6p7o89 [facility] nn 638fba 2014-01-08 2014-01-08 Unknown nullFlavo Comprehensi b64e 7e3f-e Memoria 21:00:00 21:00:00 r ve Heart r05-23f6-v l Care PA 5k2-9v8ev4 [facility] nn bl9124 2014-01-08 2014-01-08 Unknown nullFlavo Comprehensi 7454 349f-d Memoria 21:00:00 21:00:00 r ve Heart 074-45d0-9 l Care PA 42a-ff7e18 [facility] nn 73fcfb 2014-01-08 2014-01-08 Unknown nullFlavo Comprehensi 1d32 a52f-4 [facility] 21:00:00 21:00:00 r ve Heart 9k2-9k98-d l Care PA fb3-50f020 [facility] nn 551b7e 2014-01-08 2014-01-08 Outpatient Comprehen Comprehensi 2 11880 [facility] 16:00:00 16:00:00 sive ve Heart alWor tn Heart Care PA Care PA 2014-01-08 2014-01-08 Outpatient Comprehen Comprehensi 2 40312 [facility] 16:00:00 16:00:00 sive ve Heart alWor tn Heart Care PA Care PA 2013-12-06 2013-12-06 Unknown nullFlavo Comprehensi 7af8 d5e1-6 [facility] 21:00:00 21:00:00 r ve Heart 3bc-486d-9 l Care PA 715-883401 [facility] nn 648119 4158-03-26 2013-12-06 Unknown nullFlavo Comprehensi af3b 7f7a-8 [facility] 21:00:00 21:00:00 r ve Heart 6bb-4d8e-8 l Care PA 619-a12f32 [facility] nn bv516t 2013-12-06 2013-12-06 Unknown nullFlavo Comprehensi 4ce4 0f6b-f [facility] 21:00:00 21:00:00 r ve Heart o4a-5q06-e l Care PA 29f-d8ed1f [facility] nn 842221 4283-03-26 2013-12-06 Unknown nullFlavo Comprehensi 3c5b f55a-0 [facility] 21:00:00 21:00:00 r ve Heart d56-78rg-5 l Care PA 16d-32s625 [facility] nn 7a3f45 2013-12-06 2013-12-06 Unknown nullFlavo Comprehensi 136b 2818-9 [facility] 21:00:00 21:00:00 r ve Heart 2s0-4r10-v l Care PA 29f-cd7bae [facility] nn s0i359 2013-12-06 2013-12-06 Unknown nullFlavo Comprehensi d160 61a0-b [facility] 21:00:00 21:00:00 r ve Heart 54a-4b05-9 l Care PA 385-am365c [facility]lee nn 3e75fa 2013-12-06 2013-12-06 Unknown nullFlavo Comprehensi 2ed8 30ee-f [facility] 21:00:00 21:00:00 r ve Heart l7w-2209-d l Care PA 46d-deb23c [facility] nn 818fe4 2013-12-06 2013-12-06 Unknown nullFlavo Comprehensi 136b 2818-9 Memoria 21:00:00 21:00:00 r ve Heart 4x7-5n42-p l Care PA 29f-cd7bae [facility] nn z4d910 2013-12-06 2013-12-06 Unknown nullFlavo Comprehensi 7af8 d5e1-6 [facility] 21:00:00 21:00:00 r ve Heart 3bc-486d-9 l Care PA 715-167968 [facility] nn 029393 7513-03-26 2013-12-06 Unknown nullFlavo Comprehensi af3b 7f7a-8 [facility] 21:00:00 21:00:00 r ve Heart 6bb-4d8e-8 l Care PA 619-a12f32 [facility] nn eb483i 2013-12-06 2013-12-06 Unknown nullFlavo Comprehensi 2ed8 30ee-f [facility] 21:00:00 21:00:00 r ve Heart w7b-6211-q l Care PA 46d-deb23c [facility] nn 818fe4 2013-12-06 2013-12-06 Unknown nullFlavo Comprehensi d160 61a0-b [facility] 21:00:00 21:00:00 r ve Heart 54a-4b05-9 l Care PA 385-md906z [facility] nn 3e75fa 2013-12-06 2013-12-06 Unknown nullFlavo Comprehensi 4ce4 0f6b-f [facility] 21:00:00 21:00:00 r ve Heart k2r-8k42-y l Care PA 29f-d8ed1f [facility] nn 285089 9391-03-26 2013-12-06 Unknown nullFlavo Comprehensi 3c5b f55a-0 [facility]oria 21:00:00 21:00:00 r ve Heart f98-86ey-6 l Care PA 16d-33p344 [facility] nn 7a3f45 2013-12-06 2013-12-06 Unknown nullFlavo Comprehensi 136b 2818-9 Memoria 21:00:00 21:00:00 r ve Heart 8i6-6g52-x l Care PA 29f-cd7bae [facility] nn x4a546 2013-12-06 2013-12-06 Unknown nullFlavo Comprehensi 7af8 d5e1-6 [facility]oria 21:00:00 21:00:00 r ve Heart 3bc-486d-9 l Care PA 715-050244 [facility] nn 392682 1022-03-26 2013-12-06 Unknown nullFlavo Comprehensi af3b 7f7a-8 Mem[facility] 21:00:00 21:00:00 r ve Heart 6bb-4d8e-8 l Care PA 619-a12f32 [facility] nn cj407h 2013-12-06 2013-12-06 Unknown nullFlavo Comprehensi 2ed8 30ee-f [facility] 21:00:00 21:00:00 r ve Heart i8i-4565-v l Care PA 46d-deb23c [facility] nn 818fe4 2013-12-06 2013-12-06 Unknown nullFlavo Comprehensi d160 61a0-b [facility] 21:00:00 21:00:00 r ve Heart 54a-4b05-9 l Care PA 385-hd459a [facility] nn 3e75fa 2013-12-06 2013-12-06 Unknown nullFlavo Comprehensi 4ce4 0f6b-f [facility]oria 21:00:00 21:00:00 r ve Heart q1p-7u78-v l Care PA 29f-d8ed1f [facility] nn 562572 6349-03-26 2013-12-06 Unknown nullFlavo Comprehensi 3c5b f55a-0 [facility] 21:00:00 21:00:00 r ve Heart x65-07rx-9 l Care PA 16d-45w276 [facility] nn 7a3f45 2013-12-06 2013-12-06 Unknown nullFlavo Comprehensi cda5 99f0-9 [facility] 20:00:00 20:00:00 r ve Heart 50c-48b1-8 l Care PA a43-990693 [facility] nn 0d6ce8 2013-12-06 2013-12-06 Unknown nullFlavo Comprehensi 48ba ac32-3 [facility] 20:00:00 20:00:00 r ve Heart r45-3731-9 l Care PA 0n3-08ak4q [facility] nn 6d18f2 2013-12-06 2013-12-06 Unknown nullFlavo Comprehensi cc4d 297a-0 [facility] 20:00:00 20:00:00 r ve Heart 8n7-5q0y-c l Care PA l86-2gf328 [facility] nn 28bd97 2013-12-06 2013-12-06 Unknown nullFlavo Comprehensi 5263 1297-b [facility] 20:00:00 20:00:00 r ve Heart c86-3bv6-o l Care PA 37e-6ebbd3 [facility] nn 0e4452 2013-12-06 2013-12-06 Unknown nullFlavo Comprehensi 6004 acf8-2 [facility] 20:00:00 20:00:00 r ve Heart ef8-42f0-b l Care PA l0x-314698 [facility] nn f1a77b 2013-12-06 2013-12-06 Unknown nullFlavo Comprehensi ae7f e5a8-1 [facility] 20:00:00 20:00:00 r ve Heart 9ab-460c-8 l Care PA ce0-9ed63b [facility] nn 41509z 2013-12-06 2013-12-06 Unknown nullFlavo Comprehensi ec38 3577-f [facility] 20:00:00 20:00:00 r ve Heart 7n8-64v2-8 l Care PA f76-094984 [facility] nn ecf53a 2013-12-06 2013-12-06 Unknown nullFlavo Comprehensi f0cb dbb7-e [facility] 20:00:00 20:00:00 r ve Heart ebb-42f2-8 l Care PA z2e-uxvko0 [facility] nn 7c80f4 2013-12-06 2013-12-06 Unknown nullFlavo Comprehensi c12e c8e3-5 [facility] 20:00:00 20:00:00 r ve Heart 7ad-4721-b l Care PA 682-0c1ef1 [facility] nn a0dd49 2013-12-06 2013-12-06 Unknown nullFlavo Comprehensi 22ce 10ef-4 [facility] 20:00:00 20:00:00 r ve Heart h4z-99s7-f l Care PA k2r-5xi77m [facility] nn 830ecc 2013-12-06 2013-12-06 Unknown nullFlavo Comprehensi 2223 52b6-b [facility] 20:00:00 20:00:00 r ve Heart y54-0r98-y l Care PA n59-0x48hd [facility] nn gt0795 2013-12-06 2013-12-06 Unknown nullFlavo Comprehensi 71ac b782-3 [facility] 20:00:00 20:00:00 r ve Heart fe3-4d33-8 l Care PA 578-m9219g [facility] nn 003901 5762-03-26 2013-12-06 Unknown nullFlavo Comprehensi 26db d8d3-2 [facility] 20:00:00 20:00:00 r ve Heart bce-40e8-b l Care PA 336-t1a881 [facility] nn 15e45d 2013-12-06 2013-12-06 Unknown nullFlavo Comprehensi 4525 51e0-a [facility] 20:00:00 20:00:00 r ve Heart a8u-3006-b l Care PA ed2-8k615r [facility] nn bdc22e 2013-12-06 2013-12-06 Unknown nullFlavo Comprehensi 3adb 7634-5 [facility] 20:00:00 20:00:00 r ve Heart bf8-49f6-8 l Care PA 10c-q5t448 [facility] nn kf498c 2013-12-06 2013-12-06 Unknown nullFlavo Comprehensi 2234 d46c-3 [facility] 20:00:00 20:00:00 r ve Heart ef7-4ea6-8 l Care PA b4a-56e1m3 [facility] nn f7da09 2013-12-06 2013-12-06 Unknown nullFlavo Comprehensi 1148 1864-4 [facility] 20:00:00 20:00:00 r ve Heart 6cf-494e-9 l Care PA 079-55c2a4 [facility] nn 44170v 2013-12-06 2013-12-06 Unknown nullFlavo Comprehensi 466c bb83-1 [facility] 20:00:00 20:00:00 r ve Heart 7fe-4180-9 l Care PA i37-f563cy [facility] nn beced9 2013-12-06 2013-12-06 Unknown nullFlavo Comprehensi 5263 1297-b [facility] 20:00:00 20:00:00 r ve Heart g68-5hi9-w l Care PA 37e-6ebbd3 [facility] nn 9m2260 2013-12-06 2013-12-06 Unknown nullFlavo Comprehensi c12e c8e3-5 [facility] 20:00:00 20:00:00 r ve Heart 7ad-4721-b l Care PA 682-0c1ef1 [facility] nn a0dd49 2013-12-06 2013-12-06 Unknown nullFlavo Comprehensi cda5 99f0-9 [facility] 20:00:00 20:00:00 r ve Heart 50c-48b1-8 l Care PA v89-384819 [facility] nn 0d6ce8 2013-12-06 2013-12-06 Unknown nullFlavo Comprehensi 48ba ac32-3 [facility] 20:00:00 20:00:00 r ve Heart k68-5855-7 l Care PA 8a5-69es3u [facility] nn 6d18f2 2013-12-06 2013-12-06 Unknown nullFlavo Comprehensi f0cb dbb7-e [facility] 20:00:00 20:00:00 r ve Heart ebb-42f2-8 l Care PA y9b-megrw9 [facility] nn 7c80f4 2013-12-06 2013-12-06 Unknown nullFlavo Comprehensi 6004 acf8-2 [facility] 20:00:00 20:00:00 r ve Heart ef8-42f0-b l Care PA b1z-850030 [facility] nn f1a77b 2013-12-06 2013-12-06 Unknown nullFlavo Comprehensi ec38 3577-f [facility] 20:00:00 20:00:00 r ve Heart 4s3-62v5-2 l Care PA [id number] [facility] nn [id number] 2013-12-06 2013-12-06 Unknown nullFlavo Comprehensi 26db d8d3-2 [facility]oria 20:00:00 20:00:00 r ve Heart bce-40e8-b l Care PA [id number] [facility] nn [id number] 2013-12-06 2013-12-06 Unknown nullFlavo Comprehensi ae7f e5a8-1 [facility] 20:00:00 20:00:00 r ve Heart 9ab-460c-8 l Care PA [id number] [facility] nn [id number] 2013-12-06 2013-12-06 Unknown nullFlavo Comprehensi 4525 51e0-a [facility] 20:00:00 20:00:00 r ve Heart m9p-2248-y l Care PA [id number] [facility] nn bdc22e 2013-12-06 2013-12-06 Unknown nullFlavo Comprehensi 71ac b782-3 [facility] 20:00:00 20:00:00 r ve Heart fe3-4d33-8 l Care PA [id number] [facility] nn [id number] 5868-03-26 2013-12-06 Unknown nullFlavo Comprehensi 2223 52b6-b [facility] 20:00:00 20:00:00 r ve Heart c34-5w43-a l Care PA [id number] [facility] nn [id number] 2013-12-06 2013-12-06 Unknown nullFlavo Comprehensi cc4d 297a-0 [facility] 20:00:00 20:00:00 r ve Heart 7s8-8z4c-m l Care PA [id number] Haylee nn [id number] 2013-12-06 2013-12-06 Unknown nullFlavo Comprehensi 2234 d46c-3 [facility] 20:00:00 20:00:00 r ve Heart ef7-4ea6-8 l Care PA [id number]-[id number] Haylee nn [id number] 2013-12-06 2013-12-06 Unknown nullFlavo Comprehensi 22ce 10ef-4 [facility] 20:00:00 20:00:00 r ve Heart d7d-75w7-o l Care PA [id number]-[id number] Haylee nn [id number] 2013-12-06 2013-12-06 Unknown nullFlavo Comprehensi 3adb 7634-5 [facility] 20:00:00 20:00:00 r ve Heart bf8-49f6-8 l Care PA [id number] Haylee nn [id number] 2013-12-06 2013-12-06 Unknown nullFlavo Comprehensi 1148 1864-4 [facility] 20:00:00 20:00:00 r ve Heart 6cf-494e-9 l Care PA [id number] Haylee nn [id number] 2013-12-06 2013-12-06 Unknown nullFlavo Comprehensi 466c bb83-1 [facility] 20:00:00 20:00:00 r ve Heart 7fe-4180-9 l Care PA [id number]-[id number] Haylee nn beced9 2013-12-06 2013-12-06 Unknown nullFlavo Comprehensi 5263 1297-b [facility] 20:00:00 20:00:00 r ve Heart v99-3fe1-c l Care PA [id number]-6ebbd3 [facility] nn [id number] 2013-12-06 2013-12-06 Unknown nullFlavo Comprehensi c12e c8e3-5 [facility] 20:00:00 20:00:00 r ve Heart 7ad-4721-b l Care PA [id number] Haylee nn [id number] 2013-12-06 2013-12-06 Unknown nullFlavo Comprehensi cda5 99f0-9 [facility] 20:00:00 20:00:00 r ve Heart 50c-48b1-8 l Care PA [id number] Haylee nn [id number] 2013-12-06 2013-12-06 Unknown nullFlavo Comprehensi 48ba ac32-3 [facility] 20:00:00 20:00:00 r ve Heart g36-6100-4 l Care PA [id number] Haylee nn [id number] 2013-12-06 2013-12-06 Unknown nullFlavo Comprehensi f0cb dbb7-e [facility] 20:00:00 20:00:00 r ve Heart ebb-42f2-8 l Care PA [id number]-nigmm1 Haylee nn [id number] 2013-12-06 2013-12-06 Unknown nullFlavo Comprehensi 6004 acf8-2 [facility] 20:00:00 20:00:00 r ve Heart ef8-42f0-b l Care PA [id number] [facility] nn f1a77b 2013-12-06 2013-12-06 Unknown nullFlavo Comprehensi ec38 3577-f [facility] 20:00:00 20:00:00 r ve Heart 1c9-37k8-6 l Care PA [id number] Haylee nn ecf53a 2013-12-06 2013-12-06 Unknown nullFlavo Comprehensi 26db d8d3-2 [facility] 20:00:00 20:00:00 r ve Heart bce-40e8-b l Care PA [id number] Haylee nn [id number] 2013-12-06 2013-12-06 Unknown nullFlavo Comprehensi ae7f e5a8-1 [facility] 20:00:00 20:00:00 r ve Heart 9ab-460c-8 l Care PA [id number] Haylee nn [id number] 2013-12-06 2013-12-06 Unknown nullFlavo Comprehensi 4525 51e0-a [facility] 20:00:00 20:00:00 r ve Heart x5q-7198-u l Care PA [id number] [facility] nn bdc22e 2013-12-06 2013-12-06 Unknown nullFlavo Comprehensi 71ac b782-3 [facility] 20:00:00 20:00:00 r ve Heart fe3-4d33-8 l Care PA [id number] Haylee nn [id number] 1275-03-26 2013-12-06 Unknown nullFlavo Comprehensi 2223 52b6-b [facility] 20:00:00 20:00:00 r ve Heart i66-8i79-y l Care PA [id number] [facility] nn [id number] 2013-12-06 2013-12-06 Unknown nullFlavo Comprehensi cc4d 297a-0 [facility] 20:00:00 20:00:00 r ve Heart 3v5-3h3w-c l Care PA [id number] [facility] nn [id number] 2013-12-06 2013-12-06 Unknown nullFlavo Comprehensi 2234 d46c-3 [facility] 20:00:00 20:00:00 r ve Heart ef7-4ea6-8 l Care PA a8m-84p2n3 [facility] nn [id number] 2013-12-06 2013-12-06 Unknown nullFlavo Comprehensi 22ce 10ef-4 [facility] 20:00:00 20:00:00 r ve Heart f7v-73m6-a l Care PA [id number]-2ss00k [facility] nn 830ecc 2013-12-06 2013-12-06 Unknown nullFlavo Comprehensi 3adb 7634-5 [facility] 20:00:00 20:00:00 r ve Heart bf8-49f6-8 l Care PA [id number] [facility] nn [id number] 2013-12-06 2013-12-06 Unknown nullFlavo Comprehensi 1148 1864-4 [facility] 20:00:00 20:00:00 r ve Heart 6cf-494e-9 l Care PA [id number] [facility] nn [id number] 2013-12-06 2013-12-06 Unknown nullFlavo Comprehensi 466c bb83-1 [facility] 20:00:00 20:00:00 r ve Heart 7fe-4180-9 l Care PA [id number] [facility] nn beced9 2013-12-06 2013-12-06 Outpatient Comprehen Comprehensi 2 [id number] [facility] 15:00:00 15:00:00 [facility] PA Care PA 2013-12-06 2013-12-06 Outpatient Comprehen Comprehensi 2 91412 [facility] 15:00:00 15:00:00 sive ve [facility] alWor tn Heart Care PA Care PA 2013-11-10 2013-11-102013 nullFlavo Comprehensi eb5c 38c6-f [facility] 17:07:00 17:07:00 medicare r ve Heart a3v-70q2-6 l Care PA 5z9-p9l38c [facility] nn b890c0 2013-11-10 2013-11-102013 nullFlavo Comprehensi 675e b5bc-0 [facility] 17:07:00 17:07:00 medicare r ve Heart 2e2-49x8-2 l Care PA 891-d400dc Haylee nn g3g730 2013-11-10 2013-11-102013 nullFlavo Comprehensi dd33 f9e3-2 [facility] 17:07:00 17:07:00 medicare r ve Heart ecc-4125-b l Care PA 01c-941fb1 [facility]lee nn b7f5be 2013-11-10 2013-11-102013 nullFlavo Comprehensi 3404 2706-b [facility] 17:07:00 17:07:00 medicare r ve Heart 642-4896-8 l Care PA [id number] [facility]lee nn 1b96a9 2013-11-10 2013-11-102013 nullFlavo Comprehensi 7bd7 6b8f-6 [facility] 17:07:00 17:07:00 medicare r ve Heart k65-09r9-8 l Care PA 21f-8b85e5 Haylee nn 6dcab9 2013-11-10 2013-11-102013 nullFlavo Comprehensi 993b 2a1c-7 [facility] 17:07:00 17:07:00 medicare r ve Heart 9w8-9pu3-9 l Care PA 0ee-c9e8ad [facility]lee nn 19c4dd 2013-11-10 2013-11-102013 nullFlavo Comprehensi 6821 371e-9 [facility] 17:07:00 17:07:00 medicare r ve Heart 023-4ac5-8 l Care PA p39-g85582 Haylee nn 18d170 2013-11-10 2013-11-102013 nullFlavo Comprehensi 9102 0f74-1 [facility] 17:07:00 17:07:00 medicare r ve Heart 60d-4365-b l Care PA cba-2bfb6e Haylee nn 4k878u 2013-11-10 2013-11-102013 nullFlavo Comprehensi eb5c 38c6-f [facility] 17:07:00 17:07:00 medicare r ve Heart j0x-92g6-0 l Care PA 0p7-f1w77a [facility] nn b890c0 2013-11-10 2013-11-102013 nullFlavo Comprehensi 993b 2a1c-7 [facility] 17:07:00 17:07:00 medicare r ve Heart 6p8-7wg9-5 l Care PA 0ee-c9e8ad [facility] nn 19c4dd 2013-11-10 2013-11-102013 nullFlavo Comprehensi 675e b5bc-0 [facility] 17:07:00 17:07:00 medicare r ve Heart 5y5-57u6-7 l Care PA 891-d400dc [facility] nn [id number] 2013-11-10 2013-11-102013 nullFlavo Comprehensi dd33 f9e3-2 [facility] 17:07:00 17:07:00 medicare r ve Heart ecc-4125-b l Care PA 01c-941fb1 [facility] nn b7f5be 2013-11-10 2013-11-102013 nullFlavo Comprehensi 9102 0f74-1 [facility] 17:07:00 17:07:00 medicare r ve Heart 60d-4365-b l Care PA cba-2bfb6e [facility] nn 1w747l 2013-11-10 2013-11-102013 nullFlavo Comprehensi 6821 371e-9 [facility] 17:07:00 17:07:00 medicare r ve Heart 023-4ac5-8 l Care PA i08-g89050 [facility] nn 83f799 2013-11-10 2013-11-102013 nullFlavo Comprehensi 3404 2706-b [facility] 17:07:00 17:07:00 medicare r ve Heart 642-4896-8 l Care PA i48-232156 [facility] nn 1b96a9 2013-11-10 2013-11-102013 nullFlavo Comprehensi 7bd7 6b8f-6 [facility] 17:07:00 17:07:00 medicare r ve Heart m06-59y8-4 l Care PA 21f-8b85e5 Haylee nn 6dcab9 2013-11-10 2013-11-102013 nullFlavo Comprehensi eb5c 38c6-f [facility] 17:07:00 17:07:00 medicare r ve Heart n2s-69y8-1 l Care PA 7u4-a5w72x [facility]lee nn b890c0 2013-11-10 2013-11-102013 nullFlavo Comprehensi 993b 2a1c-7 [facility] 17:07:00 17:07:00 medicare r ve Heart 9d0-2vm6-6 l Care PA 0ee-c9e8ad [facility]lee nn 19c4dd 2013-11-10 2013-11-102013 nullFlavo Comprehensi 675e b5bc-0 [facility] 17:07:00 17:07:00 medicare r ve Heart 3d4-30n1-4 l Care PA 891-d400dc Haylee nn s2q108 2013-11-10 2013-11-102013 nullFlavo Comprehensi dd33 f9e3-2 [facility] 17:07:00 17:07:00 medicare r ve Heart ecc-4125-b l Care PA 01c-941fb1 [facility]lee nn b7f5be 2013-11-10 2013-11-102013 nullFlavo Comprehensi 9102 0f74-1 [facility] 17:07:00 17:07:00 medicare r ve Heart 60d-4365-b l Care PA cba-2bfb6e [facility]lee nn 6l180m 2013-11-10 2013-11-102013 nullFlavo Comprehensi 6821 371e-9 [facility] 17:07:00 17:07:00 medicare r ve Heart 023-4ac5-8 l Care PA n57-q98866 [facility]lee nn 66c497 2013-11-10 2013-11-102013 nullFlavo Comprehensi 3404 2706-b [facility] 17:07:00 17:07:00 medicare r ve Heart 642-4896-8 l Care PA [id number] [facility]lee nn 1b96a9 2013-11-10 2013-11-102013 nullFlavo Comprehensi 7bd7 6b8f-6 [facility] 17:07:00 17:07:00 medicare r ve Heart d63-11o4-5 l Care PA 21f-8b85e5 [facility] nn 6dcab9 2013-11-10 2013-11-102013 nullFlavo Comprehensi 641f ea06-d [facility] 16:07:00 16:07:00 medicare r ve Heart 304-49af-8 l Care PA 9n1-394v4p [facility] nn 42ee64 2013-11-10 2013-11-102013 nullFlavo Comprehensi 7199 5c4c-b [facility] 16:07:00 16:07:00 medicare r ve Heart 329-4487-b l Care PA fed-f51b91 [facility] nn ca37a1 2013-11-10 2013-11-102013 nullFlavo Comprehensi f28e de05-c [facility] 16:07:00 16:07:00 medicare r ve Heart 3bf-4794-9 l Care PA g58-7u8516 [facility] nn 69a17c 2013-11-10 2013-11-102013 nullFlavo Comprehensi d391 fe4b-0 [facility] 16:07:00 16:07:00 medicare r ve Heart 023-4f75-8 l Care PA 07c-481e44 [facility] nn 230499 0977-02-28 2013-11-102013 nullFlavo Comprehensi b14c 1222-3 [facility] 16:07:00 16:07:00 medicare r ve Heart 0g3-27r4-6 l Care PA 723-ea7d69 [facility] nn d701d8 2013-11-10 2013-11-102013 nullFlavo Comprehensi 380c 33f0-5 [facility] 16:07:00 16:07:00 medicare r ve Heart e54-365j-9 l Care PA p5k-12e939 [facility] nn 909c5c 2013-11-10 2013-11-102013 nullFlavo Comprehensi 42b7 78de-c [facility] 16:07:00 16:07:00 medicare r ve Heart q4v-38yx-7 l Care PA 7fe-0c89b0 [facility] nn k4025s 2013-11-10 2013-11-102013 nullFlavo Comprehensi 9b42 a7c1-e [facility] 16:07:00 16:07:00 medicare r ve Heart 3bb-4b69-a l Care PA 5b3-02x3sv [facility] nn q6n101 2013-11-10 2013-11-102013 nullFlavo Comprehensi 2f03 d85d-b [facility] 16:07:00 16:07:00 medicare r ve Heart 848-4fc6-b l Care PA 34d-760ef0 [facility]lee nn d20b8c 2013-11-10 2013-11-102013 nullFlavo Comprehensi dde1 c27c-4 [facility] 16:07:00 16:07:00 medicare r ve Heart 9m0-5896-9 l Care PA 9f3-ip440i [facility] nn 5d390x 2013-11-10 2013-11-102013 nullFlavo Comprehensi a001 52ee-1 [facility] 16:07:00 16:07:00 medicare r ve Heart 035-4685-9 l Care PA 674-50ff46 [facility] nn 9e1d59 2013-11-10 2013-11-102013 nullFlavo Comprehensi d38b 118a-5 [facility] 16:07:00 16:07:00 medicare r ve Heart g97-4729-5 l Care PA de4-7fb27f [facility] nn 44f6c1 2013-11-10 2013-11-102013 nullFlavo Comprehensi 9c95 1a55-3 [facility] 16:07:00 16:07:00 medicare r ve Heart e63-7254-6 l Care PA [id number] [facility] nn 25048y 2013-11-10 2013-11-102013 nullFlavo Comprehensi 8353 27d5-c [facility] 16:07:00 16:07:00 medicare r ve Heart 5z8-25a2-h l Care PA af5-0d6c70 [facility] nn 394920 9371-02-28 2013-11-102013 nullFlavo Comprehensi a1b0 be23-4 [facility] 16:07:00 16:07:00 medicare r ve Heart acc-4a0d-8 l Care PA s5w-2428gs [facility] nn 9e547b 2013-11-10 2013-11-102013 nullFlavo Comprehensi 39a1 f91d-a [facility] 16:07:00 16:07:00 medicare r ve Heart 144-4c80-a l Care PA dd5-2bdbc3 [facility] nn [id number] 2013-11-10 2013-11-102013 nullFlavo Comprehensi 046f cefa-2 [facility] 16:07:00 16:07:00 medicare r ve Heart y71-8m74-x l Care PA 55b-2bcd59 [facility] nn ad66fd 2013-11-10 2013-11-102013 nullFlavo Comprehensi 7733 177a-4 [facility] 16:07:00 16:07:00 medicare r ve Heart 02b-4d10-9 l Care PA 0dc-a34fa4 [facility] nn 7ca7dd 2013-11-10 2013-11-102013 nullFlavo Comprehensi d391 fe4b-0 [facility] 16:07:00 16:07:00 medicare r ve Heart 023-4f75-8 l Care PA 07c-481e44 [facility] nn [id number] 0798-02-28 2013-11-102013 nullFlavo Comprehensi 2f03 d85d-b [facility] 16:07:00 16:07:00 medicare r ve Heart 848-4fc6-b l Care PA 34d-760ef0 [facility] nn d20b8c 2013-11-10 2013-11-102013 nullFlavo Comprehensi 641f ea06-d [facility] 16:07:00 16:07:00 medicare r ve Heart 304-49af-8 l Care PA 2i3-294w5o [facility] nn 42ee64 2013-11-10 2013-11-102013 nullFlavo Comprehensi 7199 5c4c-b [facility] 16:07:00 16:07:00 medicare r ve Heart 329-4487-b l Care PA fed-f51b91 [facility] nn ca37a1 2013-11-10 2013-11-102013 nullFlavo Comprehensi 9b42 a7c1-e [facility]oria 16:07:00 16:07:00 medicare r ve Heart 3bb-4b69-a l Care PA 3g9-83w0va [facility] nn s2q070 2013-11-10 2013-11-102013 nullFlavo Comprehensi b14c 1222-3 Memoria 16:07:00 16:07:00 medicare r ve Heart 1h5-15w0-9 l Care PA 723-ea7d69 [facility] nn d701d8 2013-11-10 2013-11-102013 nullFlavo Comprehensi 42b7 78de-c [facility] 16:07:00 16:07:00 medicare r ve Heart q5t-50pz-9 l Care PA 7fe-0c89b0 [facility] b8616s 2013-11-10 2013-11-102013 nullFlavo Comprehensi 9c95 1a55-3 Memoria 16:07:00 16:07:00 medicare r ve Heart o13-0180-3 l Care PA [id number] [facility] 91366f 2013-11-10 2013-11-102013 nullFlavo Comprehensi 380c 33f0-5 Memoria 16:07:00 16:07:00 medicare r ve Heart d91-971e-3 l Care PA t1t-87r903 [facility] 909c5c 2013-11-10 2013-11-102013 nullFlavo Comprehensi 8353 27d5-c Memoria 16:07:00 16:07:00 medicare r ve Heart 0p4-90r4-z l Care PA af5-0d6c70 [facility] nn [id number] 0286-02-28 2013-11-102013 nullFlavo Comprehensi d38b 118a-5 [facility] 16:07:00 16:07:00 medicare r ve Heart p77-4405-2 l Care PA de4-7fb27f [facility] 44f6c1 2013-11-10 2013-11-102013 nullFlavo Comprehensi a001 52ee-1 [facility] 16:07:00 16:07:00 medicare r ve Heart 035-4685-9 l Care PA 674-50ff46 [facility] 9e1d59 2013-11-10 2013-11-102013 nullFlavo Comprehensi f28e de05-c [facility] 16:07:00 16:07:00 medicare r ve Heart 3bf-4794-9 l Care PA v84-7n6384 [facility] 69a17c 2013-11-10 2013-11-102013 nullFlavo Comprehensi 39a1 f91d-a [facility]oria 16:07:00 16:07:00 medicare r ve Heart 144-4c80-a l Care PA dd5-2bdbc3 [facility] b31969 2013-11-10 2013-11-102013 nullFlavo Comprehensi dde1 c27c-4 [facility]oria 16:07:00 16:07:00 medicare r ve Heart 0k2-2781-2 l Care PA 6m2-ai481o [facility] nn 3g128p 2013-11-10 2013-11-102013 nullFlavo Comprehensi a1b0 be23-4 [facility] 16:07:00 16:07:00 medicare r ve Heart acc-4a0d-8 l Care PA o7y-3190kh [facility] nn 3b890w 2013-11-10 2013-11-102013 nullFlavo Comprehensi 046f cefa-2 [facility] 16:07:00 16:07:00 medicare r ve Heart c13-3u77-r l Care PA 55b-2bcd59 [facility] nn ad66fd 2013-11-10 2013-11-102013 nullFlavo Comprehensi 7733 177a-4 [facility] 16:07:00 16:07:00 medicare r ve Heart 02b-4d10-9 l Care PA 0dc-a34fa4 [facility] nn 7ca7dd 2013-11-10 2013-11-102013 nullFlavo Comprehensi d391 fe4b-0 [facility] 16:07:00 16:07:00 medicare r ve Heart 023-4f75-8 l Care PA 07c-481e44 [facility] nn 025647 9090-02-28 2013-11-102013 nullFlavo Comprehensi 2f03 d85d-b [facility] 16:07:00 16:07:00 medicare r ve Heart 848-4fc6-b l Care PA 34d-760ef0 [facility] nn d20b8c 2013-11-10 2013-11-102013 nullFlavo Comprehensi 641f ea06-d [facility] 16:07:00 16:07:00 medicare r ve Heart 304-49af-8 l Care PA 9d2-323f3i [facility] nn 42ee64 2013-11-10 2013-11-102013 nullFlavo Comprehensi 7199 5c4c-b [facility] 16:07:00 16:07:00 medicare r ve Heart 329-4487-b l Care PA fed-f51b91 [facility] nn ca37a1 2013-11-10 2013-11-102013 nullFlavo Comprehensi 9b42 a7c1-e [facility]oria 16:07:00 16:07:00 medicare r ve Heart 3bb-4b69-a l Care PA 6d3-74v9iz [facility] nn y7l856 2013-11-10 2013-11-102013 nullFlavo Comprehensi b14c 1222-3 [facility]oria 16:07:00 16:07:00 medicare r ve Heart 3p1-62j9-6 l Care PA 723-ea7d69 [facility] nn d701d8 2013-11-10 2013-11-102013 nullFlavo Comprehensi 42b7 78de-c [facility] 16:07:00 16:07:00 medicare r ve Heart t1t-44rz-0 l Care PA 7fe-0c89b0 [facility] nn o5580t 2013-11-10 2013-11-102013 nullFlavo Comprehensi 9c95 1a55-3 [facility]oria 16:07:00 16:07:00 medicare r ve Heart m45-5655-9 l Care PA 2l5-568782 [facility] nn 81721n 2013-11-10 2013-11-102013 nullFlavo Comprehensi 380c 33f0-5 [facility] 16:07:00 16:07:00 medicare r ve Heart u48-232i-9 l Care PA q9g-44h589 [facility] nn 909c5c 2013-11-10 2013-11-102013 nullFlavo Comprehensi 8353 27d5-c Memoria 16:07:00 16:07:00 medicare r ve Heart 5x8-09m7-h l Care PA af5-0d6c70 [facility] nn 073916 0887-02-28 2013-11-102013 nullFlavo Comprehensi d38b 118a-5 [facility] 16:07:00 16:07:00 medicare r ve Heart w91-5784-9 l Care PA de4-7fb27f [facility] nn 44f6c1 2013-11-10 2013-11-102013 nullFlavo Comprehensi a001 52ee-1 [facility] 16:07:00 16:07:00 medicare r ve Heart 035-4685-9 l Care PA 674-50ff46 [facility] nn 9e1d59 2013-11-10 2013-11-102013 nullFlavo Comprehensi f28e de05-c [facility]oria 16:07:00 16:07:00 medicare r ve Heart 3bf-4794-9 l Care PA g61-9d6274 [facility] nn 69a17c 2013-11-10 2013-11-102013 nullFlavo Comprehensi 39a1 f91d-a [facility] 16:07:00 16:07:00 medicare r ve Heart 144-4c80-a l Care PA dd5-2bdbc3 [facility] nn [id number] 2013-11-10 2013-11-102013 nullFlavo Comprehensi dde1 c27c-4 [facility] 16:07:00 16:07:00 medicare r ve Heart 4y3-6063-9 l Care PA 7f6-of409p [facility] nn 1t073c 2013-11-10 2013-11-102013 nullFlavo Comprehensi a1b0 be23-4 [facility] 16:07:00 16:07:00 medicare r ve Heart acc-4a0d-8 l Care PA p7u-2115yu [facility] nn 5k808n 2013-11-10 2013-11-102013 nullFlavo Comprehensi 046f cefa-2 [facility] 16:07:00 16:07:00 medicare r ve Heart y85-0m16-m l Care PA 55b-2bcd59 [facility] nn ad66fd 2013-11-10 2013-11-102013 nullFlavo Comprehensi 7733 177a-4 [facility] 16:07:00 16:07:00 medicare r ve Heart 02b-4d10-9 l Care PA 0dc-a34fa4 [facility] nn 7ca7dd 2013-11-10 2013-11-10 Outpatient Comprehen Comprehensi 2 33654 [facility] 11:07:00 11:07:00 sive ve Heart alWor tn Heart Care PA Care PA 2013-11-10 2013-11-10 Outpatient Comprehen Comprehensi 2 71520 [facility] 11:07:00 11:07:00 sive ve Heart alWor ks Heart Care PA Care PA 2013-10-05 2013-10-05 Unknown nullFlavo Comprehensi 4575 44c6-9 [facility]oria 21:28:00 21:28:00 r ve Heart m4b-6kz0-f l Care PA w01-6352pn [facility]lee nn 3ff8c3 2013-10-05 2013-10-05 Unknown nullFlavo Comprehensi 16c9 d682-e [facility]oria 21:28:00 21:28:00 r ve Heart fac-47e5-b l Care PA 710-c618a8 [facility] nn 288ba0 2013-10-05 2013-10-05 Unknown nullFlavo Comprehensi e853 1680-0 Memoria 21:28:00 21:28:00 r ve Heart m5w-25xe-4 l Care PA 26f-b885c9 [facility] nn 63150j 2013-10-05 2013-10-05 Unknown nullFlavo Comprehensi 6890 f0de-f Memoria :28:00 21:28:00 r ve Heart ea4-4c8b-a l Care PA e01-a52zur [facility]lee nn 0888bc 2013-10-05 2013-10-05 Unknown nullFlavo Comprehensi e99e d83d-f Memoria :28:00 21:28:00 r ve Heart 863-4845-9 l Care PA 745-12a97f [facility] nn 081fbe 2013-10-05 2013-10-05 Unknown nullFlavo Comprehensi 793a 01e3-0 Memoria :28:00 21:28:00 r ve Heart a3e-6171-2 l Care PA 61b-62a74b [facility] nn 5cca42 2013-10-05 2013-10-05 Unknown nullFlavo Comprehensi 7e26 daf6-9 Memoria :28:00 21:28:00 r ve Heart e8p-7k19-k l Care PA 52e-22r188 [facility] nn 9a58a4 2013-10-05 2013-10-05 Unknown nullFlavo Comprehensi 60cf e0b3-f Memoria :28:00 21:28:00 r ve Heart o6q-6hyn-2 l Care PA 043-649040 [facility] nn 188932 9913-01-23 2013-10-05 Unknown nullFlavo Comprehensi fda5 a9f9-5 Memoria :28:00 21:28:00 r ve Heart 7u1-243z-v l Care PA ac6-a8c9dd [facility] nn 31v899 2013-10-05 2013-10-05 Unknown nullFlavo Comprehensi 4575 44c6-9 Memoria 21:28:00 21:28:00 r ve Heart m2u-7gd3-a l Care PA u70-3292vm [facility] nn 3ff8c3 2013-10-05 2013-10-05 Unknown nullFlavo Comprehensi 16c9 d682-e Memoria 21:28:00 21:28:00 r ve Heart fac-47e5-b l Care PA 710-c618a8 [facility] nn 288ba0 2013-10-05 2013-10-05 Unknown nullFlavo Comprehensi 7e26 daf6-9 Memoria 21:28:00 21:28:00 r ve Heart i6w-4n37-i l Care PA 52e-27k998 [facility] nn 9a58a4 2013-10-05 2013-10-05 Unknown nullFlavo Comprehensi e853 1680-0 Memoria 21:28:00 21:28:00 r ve Heart j3p-98co-3 l Care PA 26f-b885c9 [facility] nn 75057c 2013-10-05 2013-10-05 Unknown nullFlavo Comprehensi 6890 f0de-f Memoria :28:00 21:28:00 r ve Heart ea4-4c8b-a l Care PA g26-q78ywq [facility] nn 0888bc 2013-10-05 2013-10-05 Unknown nullFlavo Comprehensi fda5 a9f9-5 Memoria 21:28:00 21:28:00 r ve Heart 2z3-553i-e l Care PA ac6-a8c9dd [facility] nn 61j011 2013-10-05 2013-10-05 Unknown nullFlavo Comprehensi 60cf e0b3-f Memoria 21:28:00 21:28:00 r ve Heart i5z-3qjs-8 l Care PA 043-263842 [facility] nn [id number] 1190-01-23 2013-10-05 Unknown nullFlavo Comprehensi e99e d83d-f Memoria 21:28:00 21:28:00 r ve Heart 863-4845-9 l Care PA 745-12a97f [facility] nn 081fbe 2013-10-05 2013-10-05 Unknown nullFlavo Comprehensi 793a 01e3-0 Memoria 21:28:00 21:28:00 r ve Heart l8r-6383-0 l Care PA 61b-62a74b [facility] nn 5cca42 2013-10-05 2013-10-05 Unknown nullFlavo Comprehensi 4575 44c6-9 Memoria 21:28:00 21:28:00 r ve Heart c8y-0ql4-c l Care PA q33-8199tm [facility] nn 3ff8c3 2013-10-05 2013-10-05 Unknown nullFlavo Comprehensi 16c9 d682-e Memoria 21:28:00 21:28:00 r ve Heart fac-47e5-b l Care PA 710-c618a8 [facility] nn 288ba0 2013-10-05 2013-10-05 Unknown nullFlavo Comprehensi 7e26 daf6-9 Memoria 21:28:00 21:28:00 r ve Heart n2r-1o78-e l Care PA 52e-67l796 [facility] nn 9a58a4 2013-10-05 2013-10-05 Unknown nullFlavo Comprehensi e853 1680-0 Memoria 21:28:00 21:28:00 r ve Heart r6y-18qh-4 l Care PA 26f-b885c9 [facility] nn 05048f 2013-10-05 2013-10-05 Unknown nullFlavo Comprehensi 6890 f0de-f Memoria 21:28:00 21:28:00 r ve Heart ea4-4c8b-a l Care PA x17-n19mbi [facility] nn 0888bc 2013-10-05 2013-10-05 Unknown nullFlavo Comprehensi fda5 a9f9-5 Memoria :28:00 21:28:00 r ve Heart 0t5-377h-d l Care PA ac6-a8c9dd [facility] nn 32d872 2013-10-05 2013-10-05 Unknown nullFlavo Comprehensi 60cf e0b3-f Memoria 21:28:00 21:28:00 r ve Heart j8n-4jqo-9 l Care PA 043-193274 [facility] nn 053416 3765-01-23 2013-10-05 Unknown nullFlavo Comprehensi e99e d83d-f Memoria 21:28:00 21:28:00 r ve Heart 863-4845-9 l Care PA 745-12a97f [facility] nn 081fbe 2013-10-05 2013-10-05 Unknown nullFlavo Comprehensi 793a 01e3-0 Memoria 21:28:00 21:28:00 r ve Heart b6p-7823-4 l Care PA 61b-62a74b [facility] nn 5cca42 2013-10-05 2013-10-05 Unknown nullFlavo Comprehensi 18da 623d-3 Memoria 20:28:00 20:28:00 r ve Heart g2s-8hq0-q l Care PA 59b-026ca2 [facility] nn bp761w 2013-10-05 2013-10-05 Unknown nullFlavo Comprehensi fe5c 38e9-7 Memoria 20:28:00 20:28:00 r ve Heart 707-4c9d-b l Care PA 60a-f87d0d [facility] nn fdee6a 2013-10-05 2013-10-05 Unknown nullFlavo Comprehensi eed9 aff3-0 [facility]oria 20:28:00 20:28:00 r ve Heart 953-4631-b l Care PA 602-e3fc16 [facility] nn 99df7b 2013-10-05 2013-10-05 Unknown nullFlavo Comprehensi 2a0e ae58-0 Memoria 20:28:00 20:28:00 r ve Heart e39-5n4s-g l Care PA m41-s045q7 [facility] nn b27a73 2013-10-05 2013-10-05 Unknown nullFlavo Comprehensi 7826 816e-e Memoria 20:28:00 20:28:00 r ve Heart 2n7-05be-q l Care PA 0n9-3306i7 [facility] nn bb13bc 2013-10-05 2013-10-05 Unknown nullFlavo Comprehensi 3519 9c48-9 Memoria 20:28:00 20:28:00 r ve Heart 095-4caf-b l Care PA 09b-b0dfd9 [facility] nn 245113 9065-01-23 2013-10-05 Unknown nullFlavo Comprehensi a824 4208-6 Memoria 20:28:00 20:28:00 r ve Heart 556-422d-b l Care PA 023-v9z472 [facility] nn 1ki346 2013-10-05 2013-10-05 Unknown nullFlavo Comprehensi 897d fba9-c Memoria 20:28:00 20:28:00 r ve Heart efa-427e-b l Care PA 2w8-9a8221 [facility] nn 5c1f4a 2013-10-05 2013-10-05 Unknown nullFlavo Comprehensi cfc3 c5b2-1 [facility] 20:28:00 20:28:00 r ve Heart 215-4597-9 l Care PA [id number] Haylee nn dda74a 2013-10-05 2013-10-05 Unknown nullFlavo Comprehensi c3a1 e75c-1 [facility] 20:28:00 20:28:00 r ve Heart 891-4492-a l Care PA [id number]-451d0d Haylee nn [id number] 2013-10-05 2013-10-05 Unknown nullFlavo Comprehensi 11dd f136-0 [facility] 20:28:00 20:28:00 r ve Heart a13-997f-m l Care PA 7dd-4ee56a Haylee nn a2ff79 2013-10-05 2013-10-05 Unknown nullFlavo Comprehensi 5baa f98d-4 [facility] 20:28:00 20:28:00 r ve Heart 5g7-902x-q l Care PA [id number]-[id number] Haylee nn 0o837y 2013-10-05 2013-10-05 Unknown nullFlavo Comprehensi 032c d99e-6 [facility] 20:28:00 20:28:00 r ve Heart 8w6-94ws-f l Care PA [id number] Haylee nn 008a01 2013-10-05 2013-10-05 Unknown nullFlavo Comprehensi dd5a fae6-4 [facility] 20:28:00 20:28:00 r ve Heart fba-4c1e-b l Care PA [id number] Haylee nn f414f1 2013-10-05 2013-10-05 Unknown nullFlavo Comprehensi f10e ff98-8 [facility]oria 20:28:00 20:28:00 r ve Heart 779-4ad6-b l Care PA [id number]-yy7k76 Haylee nn 412a6f 2013-10-05 2013-10-05 Unknown nullFlavo Comprehensi 0f8b bbd1-6 [facility]oria 20:28:00 20:28:00 r ve Heart 37d-4f44-9 l Care PA [id number] Haylee nn e60dfe 2013-10-05 2013-10-05 Unknown nullFlavo Comprehensi ddc6 77c1-e [facility] 20:28:00 20:28:00 r ve Heart 7v4-3w22-3 l Care PA [id number] Haylee nn 3707ce 2013-10-05 2013-10-05 Unknown nullFlavo Comprehensi 8468 9364-d [facility] 20:28:00 20:28:00 r ve Heart 0bf-47dd-a l Care PA j04-207l63 Haylee nn f36dab 2013-10-05 2013-10-05 Unknown nullFlavo Comprehensi 2a0e ae58-0 [facility] 20:28:00 20:28:00 r ve Heart a78-6l8j-m l Care PA [id number]-[id number] Haylee nn b27a73 2013-10-05 2013-10-05 Unknown nullFlavo Comprehensi cfc3 c5b2-1 [facility] 20:28:00 20:28:00 r ve Heart 215-4597-9 l Care PA [id number]-u20772 Haylee nn dda74a 2013-10-05 2013-10-05 Unknown nullFlavo Comprehensi 18da 623d-3 [facility] 20:28:00 20:28:00 r ve Heart q3q-9lf5-p l Care PA 59b-026ca2 Haylee nn pf969b 2013-10-05 2013-10-05 Unknown nullFlavo Comprehensi fe5c 38e9-7 [facility] 20:28:00 20:28:00 r ve Heart 707-4c9d-b l Care PA 60a-f87d0d Haylee nn fdee6a 2013-10-05 2013-10-05 Unknown nullFlavo Comprehensi 897d fba9-c [facility] 20:28:00 20:28:00 r ve Heart efa-427e-b l Care PA 3d0-5s3829 Haylee nn 5c1f4a 2013-10-05 2013-10-05 Unknown nullFlavo Comprehensi 7826 816e-e [facility] 20:28:00 20:28:00 r ve Heart 7m9-42al-u l Care PA 3y9-9088w2 Haylee nn bb13bc 2013-10-05 2013-10-05 Unknown nullFlavo Comprehensi a824 4208-6 [facility] 20:28:00 20:28:00 r ve Heart 556-422d-b l Care PA [id number]-i0k587 Haylee nn 4mh039 2013-10-05 2013-10-05 Unknown nullFlavo Comprehensi 032c d99e-6 [facility] 20:28:00 20:28:00 r ve Heart 0k3-94cn-e l Care PA [id number] Haylee nn 008a01 2013-10-05 2013-10-05 Unknown nullFlavo Comprehensi 3519 9c48-9 [facility] 20:28:00 20:28:00 r ve Heart 095-4caf-b l Care PA 09b-b0dfd9 Haylee nn 115344 7739-01-23 2013-10-05 Unknown nullFlavo Comprehensi dd5a fae6-4 [facility] 20:28:00 20:28:00 r ve Heart fba-4c1e-b l Care PA 568-6f4f28 Haylee nn f414f1 2013-10-05 2013-10-05 Unknown nullFlavo Comprehensi 5baa f98d-4 [facility] 20:28:00 20:28:00 r ve Heart 5h6-918m-o l Care PA v51-q370u1 Haylee nn 1z942o 2013-10-05 2013-10-05 Unknown nullFlavo Comprehensi 11dd f136-0 [facility] 20:28:00 20:28:00 r ve Heart h50-512d-k l Care PA 7dd-4ee56a Haylee nn a2ff79 2013-10-05 2013-10-05 Unknown nullFlavo Comprehensi eed9 aff3-0 [facility] 20:28:00 20:28:00 r ve Heart 953-4631-b l Care PA 602-e3fc16 Haylee nn 99df7b 2013-10-05 2013-10-05 Unknown nullFlavo Comprehensi 0f8b bbd1-6 [facility] 20:28:00 20:28:00 r ve Heart 37d-4f44-9 l Care PA r37-5u17b8 Haylee nn e60dfe 2013-10-05 2013-10-05 Unknown nullFlavo Comprehensi c3a1 e75c-1 [facility] 20:28:00 20:28:00 r ve Heart 891-4492-a l Care PA beb-451d0d Haylee nn j1223j 2013-10-05 2013-10-05 Unknown nullFlavo Comprehensi f10e ff98-8 [facility] 20:28:00 20:28:00 r ve Heart 779-4ad6-b l Care PA 7s0-yr3e47 Haylee nn 412a6f 2013-10-05 2013-10-05 Unknown nullFlavo Comprehensi ddc6 77c1-e [facility] 20:28:00 20:28:00 r ve Heart 8n9-5w83-7 l Care PA [id number] Haylee nn 3707ce 2013-10-05 2013-10-05 Unknown nullFlavo Comprehensi 8468 9364-d [facility] 20:28:00 20:28:00 r ve Heart 0bf-47dd-a l Care PA v50-361r60 Haylee nn f36dab 2013-10-05 2013-10-05 Unknown nullFlavo Comprehensi 2a0e ae58-0 [facility] 20:28:00 20:28:00 r ve Heart s30-4n2b-d l Care PA q85-o732t2 Haylee nn b27a73 2013-10-05 2013-10-05 Unknown nullFlavo Comprehensi cfc3 c5b2-1 [facility] 20:28:00 20:28:00 r ve Heart 215-4597-9 l Care PA 910-r13306 [facility]lee nn dda74a 2013-10-05 2013-10-05 Unknown nullFlavo Comprehensi 18da 623d-3 [facility] 20:28:00 20:28:00 r ve Heart w3u-1ax6-b l Care PA 59b-026ca2 [facility] nn cp231a 2013-10-05 2013-10-05 Unknown nullFlavo Comprehensi fe5c 38e9-7 [facility] 20:28:00 20:28:00 r ve Heart 707-4c9d-b l Care PA 60a-f87d0d [facility] nn fdee6a 2013-10-05 2013-10-05 Unknown nullFlavo Comprehensi 897d fba9-c [facility] 20:28:00 20:28:00 r ve Heart efa-427e-b l Care PA 7q1-9j1097 [facility] nn 5c1f4a 2013-10-05 2013-10-05 Unknown nullFlavo Comprehensi 7826 816e-e [facility] 20:28:00 20:28:00 r ve Heart 3f2-95ts-z l Care PA 9b4-2697z1 [facility] nn bb13bc 2013-10-05 2013-10-05 Unknown nullFlavo Comprehensi a824 4208-6 [facility] 20:28:00 20:28:00 r ve Heart 556-422d-b l Care PA 023-s5c551 [facility] nn 6sl276 2013-10-05 2013-10-05 Unknown nullFlavo Comprehensi 032c d99e-6 [facility] 20:28:00 20:28:00 r ve Heart 4q3-87dd-f l Care PA fa1-7ew200 [facility] nn 008a01 2013-10-05 2013-10-05 Unknown nullFlavo Comprehensi 3519 9c48-9 [facility] 20:28:00 20:28:00 r ve Heart 095-4caf-b l Care PA 09b-b0dfd9 [facility] nn 595976 4768-01-23 2013-10-05 Unknown nullFlavo Comprehensi dd5a fae6-4 [facility] 20:28:00 20:28:00 r ve Heart fba-4c1e-b l Care PA 568-6f4f28 [facility] nn f414f1 2013-10-05 2013-10-05 Unknown nullFlavo Comprehensi 5baa f98d-4 [facility] 20:28:00 20:28:00 r ve Heart 6a4-660g-n l Care PA f25-a429n3 [facility] nn 9c545j 2013-10-05 2013-10-05 Unknown nullFlavo Comprehensi 11dd f136-0 [facility] 20:28:00 20:28:00 r ve Heart x57-979u-x l Care PA 7dd-4ee56a [facility] nn a2ff79 2013-10-05 2013-10-05 Unknown nullFlavo Comprehensi eed9 aff3-0 [facility] 20:28:00 20:28:00 r ve Heart 953-4631-b l Care PA 602-e3fc16 Haylee nn 99df7b 2013-10-05 2013-10-05 Unknown nullFlavo Comprehensi 0f8b bbd1-6 [facility] 20:28:00 20:28:00 r ve Heart 37d-4f44-9 l Care PA e54-9y52d2 [facility] nn e60dfe 2013-10-05 2013-10-05 Unknown nullFlavo Comprehensi c3a1 e75c-1 [facility] 20:28:00 20:28:00 r ve Heart 891-4492-a l Care PA beb-451d0d [facility]lee nn t8864c 2013-10-05 2013-10-05 Unknown nullFlavo Comprehensi f10e ff98-8 [facility] 20:28:00 20:28:00 r ve Heart 779-4ad6-b l Care PA 1z5-wv0k12 [facility]lee nn 412a6f 2013-10-05 2013-10-05 Unknown nullFlavo Comprehensi ddc6 77c1-e [facility] 20:28:00 20:28:00 r ve Heart 2d9-2a60-4 l Care PA 918-495b33 [facility]lee nn 3707ce 2013-10-05 2013-10-05 Unknown nullFlavo Comprehensi 8468 9364-d [facility] 20:28:00 20:28:00 r ve Heart 0bf-47dd-a l Care PA y67-630o95 [facility] nn f36dab 2013-10-05 2013-10-05 Outpatient Comprehen Comprehensi 2 16738 [facility] 15:28:00 15:28:00 sive ve [facility] alWor tn Heart Care PA Care PA 2013-10-05 2013-10-05 Outpatient Comprehen Comprehensi 2 47632 [facility]inic 15:28:00 15:28:00 sive ve Heart alWor ks Heart Care PA Care PA 2013-08-14 2013-08-14 Unknown nullFlavo Comprehensi fff4 4cea-4 [facility] 21:30:00 21:30:00 r ve Heart 6h0-2gc8-9 l Care PA 783-652ca4 [facility] nn 69ff99 2013-08-14 2013-08-14 Unknown nullFlavo Comprehensi 7b43 25b9-7 [facility] 21:30:00 21:30:00 r ve Heart 3o6-588i-a l Care PA 22c-6f47e3 [facility]lee nn adbaa3 2013-08-14 2013-08-14 Unknown nullFlavo Comprehensi fd40 431b-c [facility] 21:30:00 21:30:00 r ve Heart 20b-4ff2-8 l Care PA 47e-q3t513 [facility]lee nn 772b6b 2013-08-14 2013-08-14 Unknown nullFlavo Comprehensi 5611 ad6a-9 [facility] 21:30:00 21:30:00 r ve Heart j3p-8h43-j l Care PA 6v1-mo327j Haylee nn 319202 2735-12-02 2013-08-14 Unknown nullFlavo Comprehensi d3d2 ab12-9 [facility] 21:30:00 21:30:00 r ve Heart 697-4b23-b l Care PA k7a-s1f2x6 [facility] nn 38df80 2013-08-14 2013-08-14 Unknown nullFlavo Comprehensi ee22 58ff-b [facility] 21:30:00 21:30:00 r ve Heart 76e-4961-8 l Care PA 88b-i33413 [facility]lee nn 82b9b8 2013-08-14 2013-08-14 Unknown nullFlavo Comprehensi 9c18 a129-9 [facility] 21:30:00 21:30:00 r ve Heart 0ad-49da-9 l Care PA aa2-a112f4 [facility]lee nn b266ee 2013-08-14 2013-08-14 Unknown nullFlavo Comprehensi 78dc 3833-a [facility] 21:30:00 21:30:00 r ve Heart m05-3655-8 l Care PA o1f-p50zj2 [facility]lee nn na4205 2013-08-14 2013-08-14 Unknown nullFlavo Comprehensi 89d5 af70-d [facility] 21:30:00 21:30:00 r ve Heart 4q9-8144-8 l Care PA da5-d87d6c [facility]lee nn f10e5d 2013-08-14 2013-08-14 Unknown nullFlavo Comprehensi 4410 b766-f [facility] 21:30:00 21:30:00 r ve Heart be6-4d64-a l Care PA cc3-55be01 Haylee nn 55283i 2013-08-14 2013-08-14 Unknown nullFlavo Comprehensi 7b43 25b9-7 [facility] 21:30:00 21:30:00 r ve Heart 6r0-704l-j l Care PA 22c-6f47e3 [facility] nn adbaa3 2013-08-14 2013-08-14 Unknown nullFlavo Comprehensi fd40 431b-c [facility] 21:30:00 21:30:00 r ve Heart 20b-4ff2-8 l Care PA 47e-k3n470 [facility] nn 772b6b 2013-08-14 2013-08-14 Unknown nullFlavo Comprehensi fff4 4cea-4 [facility] 21:30:00 21:30:00 r ve Heart 4g3-8jn1-7 l Care PA 783-652ca4 [facility] nn 69ff99 2013-08-14 2013-08-14 Unknown nullFlavo Comprehensi 78dc 3833-a [facility] 21:30:00 21:30:00 r ve Heart r25-8052-4 l Care PA y7q-n09oi7 [facility] nn vf8971 2013-08-14 2013-08-14 Unknown nullFlavo Comprehensi 5611 ad6a-9 [facility] 21:30:00 21:30:00 r ve Heart q1y-0r24-t l Care PA 1z1-ac820a [facility] nn 845720 9592-12-02 2013-08-14 Unknown nullFlavo Comprehensi d3d2 ab12-9 [facility] 21:30:00 21:30:00 r ve Heart 697-4b23-b l Care PA w9x-l3k5w2 [facility] nn 38df80 2013-08-14 2013-08-14 Unknown nullFlavo Comprehensi 4410 b766-f [facility] 21:30:00 21:30:00 r ve Heart be6-4d64-a l Care PA cc3-55be01 [facility]lee nn 72129h 2013-08-14 2013-08-14 Unknown nullFlavo Comprehensi 89d5 af70-d [facility] 21:30:00 21:30:00 r ve Heart 3d5-3397-3 l Care PA da5-d87d6c [facility]lee nn f10e5d 2013-08-14 2013-08-14 Unknown nullFlavo Comprehensi ee22 58ff-b [facility] 21:30:00 21:30:00 r ve Heart 76e-4961-8 l Care PA 88b-m68064 [facility]lee nn 82b9b8 2013-08-14 2013-08-14 Unknown nullFlavo Comprehensi 9c18 a129-9 [facility] 21:30:00 21:30:00 r ve Heart 0ad-49da-9 l Care PA aa2-a112f4 [facility]lee nn b266ee 2013-08-14 2013-08-14 Unknown nullFlavo Comprehensi 7b43 25b9-7 [facility] 21:30:00 21:30:00 r ve Heart 9e3-107j-q l Care PA 22c-6f47e3 [facility]lee nn adbaa3 2013-08-14 2013-08-14 Unknown nullFlavo Comprehensi fd40 431b-c [facility] 21:30:00 21:30:00 r ve Heart 20b-4ff2-8 l Care PA 47e-j5n221 [facility] nn 772b6b 2013-08-14 2013-08-14 Unknown nullFlavo Comprehensi fff4 4cea-4 [facility] 21:30:00 21:30:00 r ve Heart 0d6-4tf5-1 l Care PA 783-652ca4 [facility]lee nn 69ff99 2013-08-14 2013-08-14 Unknown nullFlavo Comprehensi 78dc 3833-a [facility] 21:30:00 21:30:00 r ve Heart d40-1296-8 l Care PA r7m-f51ou3 [facility] nn wx3719 2013-08-14 2013-08-14 Unknown nullFlavo Comprehensi 5611 ad6a-9 [facility] 21:30:00 21:30:00 r ve Heart k7q-1t11-p l Care PA 3l2-at825y Haylee nn 421704 0077-12-02 2013-08-14 Unknown nullFlavo Comprehensi d3d2 ab12-9 [facility] 21:30:00 21:30:00 r ve Heart 697-4b23-b l Care PA t5r-w6i3p1 [facility] nn 38df80 2013-08-14 2013-08-14 Unknown nullFlavo Comprehensi 4410 b766-f [facility] 21:30:00 21:30:00 r ve Heart be6-4d64-a l Care PA cc3-55be01 Haylee nn 17652h 2013-08-14 2013-08-14 Unknown nullFlavo Comprehensi 89d5 af70-d [facility] 21:30:00 21:30:00 r ve Heart 6o9-5067-0 l Care PA da5-d87d6c [facility]lee nn f10e5d 2013-08-14 2013-08-14 Unknown nullFlavo Comprehensi ee22 58ff-b [facility] 21:30:00 21:30:00 r ve Heart 76e-4961-8 l Care PA 88b-k72407 [facility]lee nn 82b9b8 2013-08-14 2013-08-14 Unknown nullFlavo Comprehensi 9c18 a129-9 Memoria 21:30:00 21:30:00 r ve Heart 0ad-49da-9 l Care PA aa2-a112f4 [facility]lee nn b266ee 2013-08-14 2013-08-14 Unknown nullFlavo Comprehensi 5e74 4aa9-7 [facility]oria 20:30:00 20:30:00 r ve Heart 572-41f1-a l Care PA 3s4-67889b [facility]lee nn bddfed 2013-08-14 2013-08-14 Unknown nullFlavo Comprehensi b57c e4b2-4 [facility] 20:30:00 20:30:00 r ve Heart 233-4e41-b l Care PA w76-k308u5 [facility]lee nn 3r169z 2013-08-14 2013-08-14 Unknown nullFlavo Comprehensi ba75 cf0b-6 [facility] 20:30:00 20:30:00 r ve Heart 0bb-4774-a l Care PA 91f-317ab9 [facility]lee nn 789b00 2013-08-14 2013-08-14 Unknown nullFlavo Comprehensi dbed f8b3-0 [facility]oria 20:30:00 20:30:00 r ve Heart fb4-4502-9 l Care PA 036-193d94 Haylee nn a4e9ad 2013-08-14 2013-08-14 Unknown nullFlavo Comprehensi 91c3 52ba-e [facility] 20:30:00 20:30:00 r ve Heart 98c-4fd5-8 l Care PA 9ff-7v4675 Haylee nn 3h7856 2013-08-14 2013-08-14 Unknown nullFlavo Comprehensi 335c e390-3 Memoria 20:30:00 20:30:00 r ve Heart 5b5-7l25-2 l Care PA 7o0-q6h86a [facility] nn 21b832 2013-08-14 2013-08-14 Unknown nullFlavo Comprehensi 9e1b bcc0-4 [facility]oria 20:30:00 20:30:00 r ve Heart bbd-4857-8 l Care PA 625-v01738 Haylee nn 7k181c 2013-08-14 2013-08-14 Unknown nullFlavo Comprehensi 2d62 2b28-7 [facility] 20:30:00 20:30:00 r ve Heart 280-4638-8 l Care PA 628-85r018 [facility] nn ffbbcf 2013-08-14 2013-08-14 Unknown nullFlavo Comprehensi 6e2f bb15-1 [facility] 20:30:00 20:30:00 r ve Heart 632-4641-9 l Care PA c78-6nuh5k [facility]lee nn 15b589 2013-08-14 2013-08-14 Unknown nullFlavo Comprehensi 899a 8f34-7 [facility]oria 20:30:00 20:30:00 r ve Heart 0r7-3z24-9 l Care PA 3i0-3j4661 [facility] nn f84655 2013-08-14 2013-08-14 Unknown nullFlavo Comprehensi c5d2 ca38-3 [facility] 20:30:00 20:30:00 r ve Heart 7z5-66f4-7 l Care PA 276-cf1cc2 [facility]lee nn 3b9c4b 2013-08-14 2013-08-14 Unknown nullFlavo Comprehensi 8ea0 9d02-f [facility]oria 20:30:00 20:30:00 r ve Heart cef-4b9a-a l Care PA 2t4-3869r6 [facility]lee nn 390cf9 2013-08-14 2013-08-14 Unknown nullFlavo Comprehensi fcb7 881b-7 [facility] 20:30:00 20:30:00 r ve Heart 32e-458c-8 l Care PA h6b-83y118 [facility] nn adad70 2013-08-14 2013-08-14 Unknown nullFlavo Comprehensi bffa 49e9-e [facility]oria 20:30:00 20:30:00 r ve Heart 6j1-67s5-7 l Care PA de7-a4ff0e [facility]lee nn 3e5a36 2013-08-14 2013-08-14 Unknown nullFlavo Comprehensi b2fa a92e-4 [facility]oria 20:30:00 20:30:00 r ve Heart 0db-4167-9 l Care PA f6w-15n945 Haylee nn 36598k 2013-08-14 2013-08-14 Unknown nullFlavo Comprehensi 9239 e120-d Mem[facility] 20:30:00 20:30:00 r ve Heart 3bd-4aa6-9 l Care PA 0c3-tw662l [facility]lee nn 3441b3 2013-08-14 2013-08-14 Unknown nullFlavo Comprehensi 9c33 e030-6 [facility]oria 20:30:00 20:30:00 r ve Heart 6s1-7ifs-j l Care PA v30-31k6f7 [facility]lee nn b5a6a1 2013-08-14 2013-08-14 Unknown nullFlavo Comprehensi f39f efaa-5 [facility] 20:30:00 20:30:00 r ve Heart 6e5-89op-q l Care PA 8e6-7aq1x8 [facility] nn e851c7 2013-08-14 2013-08-14 Unknown nullFlavo Comprehensi dbed f8b3-0 [facility]oria 20:30:00 20:30:00 r ve Heart fb4-4502-9 l Care PA 036-193d94 [facility]lee nn a4e9ad 2013-08-14 2013-08-14 Unknown nullFlavo Comprehensi 6e2f bb15-1 [facility] 20:30:00 20:30:00 r ve Heart 632-4641-9 l Care PA l84-7uuv7e [facility]lee nn 76i446 2013-08-14 2013-08-14 Unknown nullFlavo Comprehensi 5e74 4aa9-7 [facility]oria 20:30:00 20:30:00 r ve Heart 572-41f1-a l Care PA 4p9-58229r [facility]lee nn bddfed 2013-08-14 2013-08-14 Unknown nullFlavo Comprehensi b57c e4b2-4 [facility]oria 20:30:00 20:30:00 r ve Heart 233-4e41-b l Care PA g65-t144d7 [facility]lee nn 3l190k 2013-08-14 2013-08-14 Unknown nullFlavo Comprehensi 2d62 2b28-7 [facility]oria 20:30:00 20:30:00 r ve Heart 280-4638-8 l Care PA 628-40d157 [facility] nn ffbbcf 2013-08-14 2013-08-14 Unknown nullFlavo Comprehensi 91c3 52ba-e Memoria 20:30:00 20:30:00 r ve Heart 98c-4fd5-8 l Care PA 9ff-6p6878 [facility] nn 4c4512 2013-08-14 2013-08-14 Unknown nullFlavo Comprehensi 9e1b bcc0-4 Memoria 20:30:00 20:30:00 r ve Heart bbd-4857-8 l Care PA 625-k82675 [facility]lee nn 0t589n 2013-08-14 2013-08-14 Unknown nullFlavo Comprehensi fcb7 881b-7 Memoria 20:30:00 20:30:00 r ve Heart 32e-458c-8 l Care PA g6s-83o722 [facility]lee nn adad70 2013-08-14 2013-08-14 Unknown nullFlavo Comprehensi 335c e390-3 Memoria 20:30:00 20:30:00 r ve Heart 2p0-9o16-5 l Care PA 8p0-g9u18a [facility]lee nn 00c562 2013-08-14 2013-08-14 Unknown nullFlavo Comprehensi bffa 49e9-e Memoria 20:30:00 20:30:00 r ve Heart 4q1-79y7-9 l Care PA de7-a4ff0e [facility]lee nn 3e5a36 2013-08-14 2013-08-14 Unknown nullFlavo Comprehensi 8ea0 9d02-f Memoria 20:30:00 20:30:00 r ve Heart cef-4b9a-a l Care PA 9p8-2563i3 [facility]lee nn 390cf9 2013-08-14 2013-08-14 Unknown nullFlavo Comprehensi c5d2 ca38-3 Memoria 20:30:00 20:30:00 r ve Heart 5j4-19d9-5 l Care PA 276-cf1cc2 Haylee nn 3b9c4b 2013-08-14 2013-08-14 Unknown nullFlavo Comprehensi ba75 cf0b-6 [facility]oria 20:30:00 20:30:00 r ve Heart 0bb-4774-a l Care PA 91f-317ab9 [facility]lee nn 789b00 2013-08-14 2013-08-14 Unknown nullFlavo Comprehensi 9239 e120-d Memoria 20:30:00 20:30:00 r ve Heart 3bd-4aa6-9 l Care PA 0q8-pd882d [facility]lee nn 3441b3 2013-08-14 2013-08-14 Unknown nullFlavo Comprehensi 899a 8f34-7 Memoria 20:30:00 20:30:00 r ve Heart 9z3-3r83-3 l Care PA 6b4-0t8343 [facility]lee nn d90448 2013-08-14 2013-08-14 Unknown nullFlavo Comprehensi b2fa a92e-4 Memoria 20:30:00 20:30:00 r ve Heart 0db-4167-9 l Care PA z3r-57k184 Haylee nn 16981z 2013-08-14 2013-08-14 Unknown nullFlavo Comprehensi 9c33 e030-6 Memoria 20:30:00 20:30:00 r ve Heart 9q1-2yjr-d l Care PA y05-85x0w3 [facility]lee nn b5a6a1 2013-08-14 2013-08-14 Unknown nullFlavo Comprehensi f39f efaa-5 [facility] 20:30:00 20:30:00 r ve Heart 2z2-20lv-y l Care PA 9o8-6qf9c5 [facility] nn e851c7 2013-08-14 2013-08-14 Unknown nullFlavo Comprehensi dbed f8b3-0 Memoria 20:30:00 20:30:00 r ve Heart fb4-4502-9 l Care PA 036-193d94 [facility]lee nn a4e9ad 2013-08-14 2013-08-14 Unknown nullFlavo Comprehensi 6e2f bb15-1 [facility] 20:30:00 20:30:00 r ve Heart 632-4641-9 l Care PA m73-5jfi9w [facility]lee nn 56c673 2013-08-14 2013-08-14 Unknown nullFlavo Comprehensi 5e74 4aa9-7 Memoria 20:30:00 20:30:00 r ve Heart 572-41f1-a l Care PA 4n8-91092r [facility]lee nn bddfed 2013-08-14 2013-08-14 Unknown nullFlavo Comprehensi b57c e4b2-4 Memoria 20:30:00 20:30:00 r ve Heart 233-4e41-b l Care PA x91-g341v6 Haylee nn 1o920s 2013-08-14 2013-08-14 Unknown nullFlavo Comprehensi 2d62 2b28-7 Memoria 20:30:00 20:30:00 r ve Heart 280-4638-8 l Care PA 628-88k654 [facility]lee nn ffbbcf 2013-08-14 2013-08-14 Unknown nullFlavo Comprehensi 91c3 52ba-e Memoria 20:30:00 20:30:00 r ve Heart 98c-4fd5-8 l Care PA 9ff-4h9479 [facility]lee nn 6o8149 2013-08-14 2013-08-14 Unknown nullFlavo Comprehensi 9e1b bcc0-4 Memoria 20:30:00 20:30:00 r ve Heart bbd-4857-8 l Care PA 625-y40576 [facility]lee nn 6c204a 2013-08-14 2013-08-14 Unknown nullFlavo Comprehensi fcb7 881b-7 Memoria 20:30:00 20:30:00 r ve Heart 32e-458c-8 l Care PA t6x-64m806 [facility]lee nn adad70 2013-08-14 2013-08-14 Unknown nullFlavo Comprehensi 335c e390-3 Memoria 20:30:00 20:30:00 r ve Heart 5b0-1a26-7 l Care PA 2q6-m9k02k [facility]lee nn 90a346 2013-08-14 2013-08-14 Unknown nullFlavo Comprehensi bffa 49e9-e Memoria 20:30:00 20:30:00 r ve Heart 8k4-05i4-3 l Care PA de7-a4ff0e [facility]lee nn 3e5a36 2013-08-14 2013-08-14 Unknown nullFlavo Comprehensi 8ea0 9d02-f Memoria 20:30:00 20:30:00 r ve Heart cef-4b9a-a l Care PA 7j8-2540y6 [facility]lee nn 390cf9 2013-08-14 2013-08-14 Unknown nullFlavo Comprehensi c5d2 ca38-3 Memoria 20:30:00 20:30:00 r ve Heart 3t9-99y1-1 l Care PA 276-cf1cc2 [facility]lee nn 3b9c4b 2013-08-14 2013-08-14 Unknown nullFlavo Comprehensi ba75 cf0b-6 [facility] 20:30:00 20:30:00 r ve Heart 0bb-4774-a l Care PA 91f-317ab9 [facility] nn 789b00 2013-08-14 2013-08-14 Unknown nullFlavo Comprehensi 9239 e120-d Memoria 20:30:00 20:30:00 r ve Heart 3bd-4aa6-9 l Care PA 1o7-rd244a Haylee nn 3441b3 2013-08-14 2013-08-14 Unknown nullFlavo Comprehensi 899a 8f34-7 Memoria 20:30:00 20:30:00 r ve Heart 1z4-2w67-8 l Care PA 9l6-7s5852 [facility] nn q87680 2013-08-14 2013-08-14 Unknown nullFlavo Comprehensi b2fa a92e-4 Memoria 20:30:00 20:30:00 r ve Heart 0db-4167-9 l Care PA v2i-29g157 Haylee nn 38835z 2013-08-14 2013-08-14 Unknown nullFlavo Comprehensi 9c33 e030-6 Memoria 20:30:00 20:30:00 r ve Heart 1y1-6hnm-f l Care PA x63-40d0b6 [facility]lee nn b5a6a1 2013-08-14 2013-08-14 Unknown nullFlavo Comprehensi f39f efaa-5 [facility] 20:30:00 20:30:00 r ve Heart 6n2-40ll-v l Care PA 9b8-3gy8w4 [facility]lee nn e851c7 2013-08-14 2013-08-14 Outpatient Comprehen Comprehensi 2 45383 [facility]inic 15:30:00 15:30[facility] 2013-08-14 2013-08-14 Outpatient Comprehen Comprehensi 2 20490 [facility]Clinic 15:30:00 15:30:[facility] 2013-07-31 2013-07-31 Unknown nullFlavo Comprehensi 0a81 9c66-1 Memoria 23:23:00 23:23:00 r ve Heart 3df-472d-b l Care PA ff2-60ff98 Haylee nn 1322b7 2013-07-31 2013-07-31 Unknown nullFlavo Comprehensi a47f 00a8-6 Memoria 23:23:00 23:23:00 r ve Heart b91-3r40-p l Care PA l41-6uc7q9 [facility]lee nn 916f9b 2013-07-31 2013-07-31 Unknown nullFlavo Comprehensi 930f b2f6-d Memoria 23:23:00 23:23:00 r ve Heart 336-4594-9 l Care PA 907-fbce0b Haylee nn 8a46b7 2013-07-31 2013-07-31 Unknown nullFlavo Comprehensi e9ac 6aff-9 Memoria 23:23:00 23:23:00 r ve Heart 5f2-7236-1 l Care PA gayatri-7fbc57 [facility]lee nn aa8a44 2013-07-31 2013-07-31 Unknown nullFlavo Comprehensi 2c48 2b32-5 Memoria 23:23:00 23:23:00 r ve Heart 1g5-98c8-5 l Care PA 8fc-697d1d [facility]lee nn a6cac7 2013-07-31 2013-07-31 Unknown nullFlavo Comprehensi f48e f3db-5 [facility] 23:23:00 23:23:00 r ve Heart 0e6-61f0-m l Care PA 17f-3g0793 Haylee nn fd50f7 2013-07-31 2013-07-31 Unknown nullFlavo Comprehensi d08e a12c-5 [facility] 23:23:00 23:23:00 r ve Heart 87e-4b1a-a l Care PA 46d-9e84af Haylee nn kd3580 2013-07-31 2013-07-31 Unknown nullFlavo Comprehensi 94d0 5a69-2 Memoria 23:23:00 23:23:00 r ve Heart u2j-731y-3 l Care PA 667-98a36e Haylee nn a7bbca 2013-07-31 2013-07-31 Unknown nullFlavo Comprehensi 8b48 600f-4 [facility]oria 23:23:00 23:23:00 r ve Heart i29-592a-y l Care PA 00b-e55ede Haylee nn 97095k 2013-07-31 2013-07-31 Unknown nullFlavo Comprehensi 14f7 80f5-f Mem[facility] 23:23:00 23:23:00 r ve Heart 15c-4b89-b l Care PA 35d-08y292 Haylee nn 269721 8119-11-18 2013-07-31 Unknown nullFlavo Comprehensi 06da c6f1-8 Memoria 23:23:00 23:23:00 r ve Heart y9r-9cx9-h l Care PA 165-qy539f Haylee nn 691587 2137-11-18 2013-07-31 Unknown nullFlavo Comprehensi 0a81 9c66-1 [facility] 23:23:00 23:23:00 r ve Heart 3df-472d-b l Care PA ff2-60ff98 Haylee nn 1322b7 2013-07-31 2013-07-31 Unknown nullFlavo Comprehensi 930f b2f6-d Memoria 23:23:00 23:23:00 r ve Heart 336-4594-9 l Care PA 907-fbce0b [facility] nn 8a46b7 2013-07-31 2013-07-31 Unknown nullFlavo Comprehensi e9ac 6aff-9 Memoria 23:23:00 23:23:00 r ve Heart 6p1-3024-7 l Care PA gayatri-7fbc57 [facility] nn aa8a44 2013-07-31 2013-07-31 Unknown nullFlavo Comprehensi a47f 00a8-6 Memoria 23:23:00 23:23:00 r ve Heart d85-4h22-n l Care PA g40-3un6c3 [facility] nn 916f9b 2013-07-31 2013-07-31 Unknown nullFlavo Comprehensi 8b48 600f-4 Memoria 23:23:00 23:23:00 r ve Heart p35-846a-q l Care PA 00b-e55ede [facility] nn 50341m 2013-07-31 2013-07-31 Unknown nullFlavo Comprehensi 2c48 2b32-5 Mem[facility] 23:23:00 23:23:00 r ve Heart 2g5-71i0-1 l Care PA 8fc-697d1d [facility] nn a6cac7 2013-07-31 2013-07-31 Unknown nullFlavo Comprehensi f48e f3db-5 Mem[facility] 23:23:00 23:23:00 r ve Heart 2g7-96k0-e l Care PA [id number]-8g1896 [facility] nn [id number] 2013-07-31 2013-07-31 Unknown nullFlavo Comprehensi 06da c6f1-8 Memoria 23:23:00 23:23:00 r ve Heart h4u-3wt9-j l Care PA 165-on930e [facility] nn [id number] 6798-11-18 2013-07-31 Unknown nullFlavo Comprehensi 14f7 80f5-f Memoria 23:23:00 23:23:00 r ve Heart 15c-4b89-b l Care PA 35d-25f471 [facility] nn [id number] 5554-11-18 2013-07-31 Unknown nullFlavo Comprehensi d08e a12c-5 Memoria 23:23:00 23:23:00 r ve Heart 87e-4b1a-a l Care [place] 46d-9e84af Haylee nn [id number] 2013-07-31 2013-07-31 Unknown nullFlavo Comprehensi 94d0 5a69-2 Memoria 23:23:00 23:23:00 r ve Heart y7d-112n-8 l Care PA [id number] Haylee nn a7bbca 2013-07-31 2013-07-31 Unknown nullFlavo Comprehensi 0a81 9c66-1 Memoria 23:23:00 23:23:00 r ve Heart 3df-472d-b l Care PA ff2-60ff98 Haylee nn 1322b7 2013-07-31 2013-07-31 Unknown nullFlavo Comprehensi 930f b2f6-d Memoria 23:23:00 23:23:00 r ve Heart 336-4594-9 l Care PA 907-fbce0b Haylee nn 8a46b7 2013-07-31 2013-07-31 Unknown nullFlavo Comprehensi e9ac 6aff-9 Memoria 23:23:00 23:23:00 r ve Heart 0n9-5497-9 l Care PA gayatri-7fbc57 Haylee nn aa8a44 2013-07-31 2013-07-31 Unknown nullFlavo Comprehensi a47f 00a8-6 Memoria 23:23:00 23:23:00 r ve Heart z75-1b73-w l Care PA n35-9wl2t0 Haylee nn 916f9b 2013-07-31 2013-07-31 Unknown nullFlavo Comprehensi 8b48 600f-4 Memoria 23:23:00 23:23:00 r ve Heart x95-977p-w l Care PA 00b-e55ede Haylee nn 90877p 2013-07-31 2013-07-31 Unknown nullFlavo Comprehensi 2c48 2b32-5 Memoria 23:23:00 23:23:00 r ve Heart 9j2-82h5-5 l Care PA 8fc-697d1d Haylee nn a6cac7 2013-07-31 2013-07-31 Unknown nullFlavo Comprehensi f48e f3db-5 Memoria 23:23:00 23:23:00 r ve Heart 8d1-90m4-y l Care PA 17f-1p1072 Haylee nn fd50f7 2013-07-31 2013-07-31 Unknown nullFlavo Comprehensi 06da c6f1-8 Memoria 23:23:00 23:23:00 r ve Heart o0o-6up8-u l Care PA 165-jg733i Haylee nn [id number] 0318-11-18 2013-07-31 Unknown nullFlavo Comprehensi 14f7 80f5-f Memoria 23:23:00 23:23:00 r ve Heart 15c-4b89-b l Care PA 35d-51g386 Haylee nn 943700 9261-11-18 2013-07-31 Unknown nullFlavo Comprehensi d08e a12c-5 Memoria 23:23:00 23:23:00 r ve Heart 87e-4b1a-a l Care PA 46d-9e84af Haylee nn [id number] 2013-07-31 2013-07-31 Unknown nullFlavo Comprehensi 94d0 5a69-2 Memoria 23:23:00 23:23:00 r ve Heart g9i-887l-1 l Care PA [id number] Haylee nn a7bbca 2013-07-31 2013-07-31 Unknown nullFlavo Comprehensi 8cd9 14cf-4 Memoria 22:23:00 22:23:00 r ve Heart 9ed-4d37-a l Care PA 407-4e6aea Haylee nn [id number] 2013-07-31 2013-07-31 Unknown nullFlavo Comprehensi 0449 b7b9-e Memoria 22:23:00 22:23:00 r ve Heart 835-47e4-b l Care PA 410-x70774 Haylee nn 168222 2838-11-18 2013-07-31 Unknown nullFlavo Comprehensi 09ca 54cd-8 Memoria 22:23:00 22:23:00 r ve Heart ce1-4b9b-a l Care PA m2j-42413n Haylee nn 7bdfd5 2013-07-31 2013-07-31 Unknown nullFlavo Comprehensi 4a2c 658a-6 Memoria 22:23:00 22:23:00 r ve Heart 20a-464f-b l Care PA 831-bd4df9 Haylee nn cacb12 2013-07-31 2013-07-31 Unknown nullFlavo Comprehensi 3b65 5974-c Memoria 22:23:00 22:23:00 r ve Heart 19f-4a17-9 l Care PA 6l5-h00t9x Haylee nn 99eab1 2013-07-31 2013-07-31 Unknown nullFlavo Comprehensi 01da 738b-a Memoria 22:23:00 22:23:00 r ve Heart 4ed-40cf-9 l Care PA 29f-645615 Haylee nn 9ec3c4 2013-07-31 2013-07-31 Unknown nullFlavo Comprehensi e6b8 9fef-2 Memoria 22:23:00 22:23:00 r ve Heart 7l9-873b-f l Care PA 1w9-8131rx [facility] nn 722789 4378-11-18 2013-07-31 Unknown nullFlavo Comprehensi 86cc 1771-1 Memoria 22:23:00 22:23:00 r ve Heart de7-4f34-a l Care PA 242-60162x Haylee nn 1eca41 2013-07-31 2013-07-31 Unknown nullFlavo Comprehensi bc37 ccc5-c Memoria 22:23:00 22:23:00 r ve Heart 5j7-5964-7 l Care PA 782-3ff4a4 [facility] nn 513b25 2013-07-31 2013-07-31 Unknown nullFlavo Comprehensi f487 24d6-f Memoria 22:23:00 22:23:00 r ve Heart 7eb-4692-9 l Care PA v71-k819w7 Haylee nn 94a83d 2013-07-31 2013-07-31 Unknown nullFlavo Comprehensi 04d7 2572-a Memoria 22:23:00 22:23:00 r ve Heart 96f-4db5-9 l Care PA 22b-8f0b26 Haylee nn 780173 9086-11-18 2013-07-31 Unknown nullFlavo Comprehensi 0e6f d61e-2 Memoria 22:23:00 22:23:00 r ve Heart i12-571m-9 l Care PA 5cd-1fc3c3 Haylee nn 4b2f75 2013-07-31 2013-07-31 Unknown nullFlavo Comprehensi 9e57 c1dd-f Memoria 22:23:00 22:23:00 r ve Heart f28-9bz0-j l Care PA 773-4798d8 Haylee nn [id number] 2726-11-18 2013-07-31 Unknown nullFlavo Comprehensi 08b0 7107-4 Memoria 22:23:00 22:23:00 r ve Heart n52-82s3-f l Care PA eec-f754fd Haylee nn e36ad6 2013-07-31 2013-07-31 Unknown nullFlavo Comprehensi 7a77 f8ad-6 Memoria 22:23:00 22:23:00 r ve Heart 480-4c1d-9 l Care PA 7v8-i915t9 Haylee nn ad1dea 2013-07-31 2013-07-31 Unknown nullFlavo Comprehensi 8dbc afe4-9 Memoria 22:23:00 22:23:00 r ve Heart 451-44c6-b l Care PA 0j8-0w9681 Halyee nn sh6136 2013-07-31 2013-07-31 Unknown nullFlavo Comprehensi c15c 87e8-8 Memoria 22:23:00 22:23:00 r ve Heart 4a2-8kdl-5 l Care PA 44d-bd03bd Haylee nn 64e79e 2013-07-31 2013-07-31 Unknown nullFlavo Comprehensi 62ae e04f-4 Memoria 22:23:00 22:23:00 [facility] 6r6-301q-b l Care PA 3cb-4e61b1 Haylee nn 87555q 2013-07-31 2013-07-31 Unknown nullFlavo Comprehensi 4a2c 658a-6 Memoria 22:23:00 22:23:00 r ve Heart 20a-464f-b l Care PA 831-bd4df9 Haylee nn cacb12 2013-07-31 2013-07-31 Unknown nullFlavo Comprehensi bc37 ccc5-c Memoria 22:23:00 22:23:00 r ve Heart 6k3-4772-7 l Care PA 782-3ff4a4 [facility] nn 513b25 2013-07-31 2013-07-31 Unknown nullFlavo Comprehensi 8cd9 14cf-4 Memoria 22:23:00 22:23:00 r ve Heart 9ed-4d37-a l Care PA 407-4e6aea [facility] nn 0u0496 2013-07-31 2013-07-31 Unknown nullFlavo Comprehensi 0449 b7b9-e Memoria 22:23:00 22:23:00 r ve Heart 835-47e4-b l Care PA 410-c80475 [facility] nn 387253 2215-11-18 2013-07-31 Unknown nullFlavo Comprehensi 86cc 1771-1 Memoria 22:23:00 22:23:00 r ve Heart de7-4f34-a l Care PA 242-33833b [facility] nn 1eca41 2013-07-31 2013-07-31 Unknown nullFlavo Comprehensi 3b65 5974-c Memoria 22:23:00 22:23:00 r ve Heart 19f-4a17-9 l Care PA 9n1-z56k7t [facility] nn 99eab1 2013-07-31 2013-07-31 Unknown nullFlavo Comprehensi e6b8 9fef-2 Memoria 22:23:00 22:23:00 r ve Heart 6d9-330g-m l Care PA 9y8-7595ig [facility] nn 536433 1915-11-18 2013-07-31 Unknown nullFlavo Comprehensi 9e57 c1dd-f Memoria 22:23:00 22:23:00 r ve Heart g69-7iw5-j l Care PA 773-4798d8 [facility] nn 091760 1483-11-18 2013-07-31 Unknown nullFlavo Comprehensi 01da 738b-a Memoria 22:23:00 22:23:00 r ve Heart 4ed-40cf-9 l Care PA 29f-223857 [facility] nn 9ec3c4 2013-07-31 2013-07-31 Unknown nullFlavo Comprehensi 08b0 7107-4 Memoria 22:23:00 22:23:00 r ve Heart p50-37j4-r l Care PA eec-f754fd Haylee nn e36ad6 2013-07-31 2013-07-31 Unknown nullFlavo Comprehensi 0e6f d61e-2 Memoria 22:23:00 22:23:00 r ve Heart y30-197o-1 l Care PA 5cd-1fc3c3 Haylee nn 4b2f75 2013-07-31 2013-07-31 Unknown nullFlavo Comprehensi 04d7 2572-a Memoria 22:23:00 22:23:00 r ve Heart 96f-4db5-9 l Care PA 22b-8f0b26 Haylee nn 146042 1101-11-18 2013-07-31 Unknown nullFlavo Comprehensi 09ca 54cd-8 Memoria 22:23:00 22:23:00 r ve Heart ce1-4b9b-a l Care PA g8i-59582n Haylee nn 7bdfd5 2013-07-31 2013-07-31 Unknown nullFlavo Comprehensi 8dbc afe4-9 Memoria 22:23:00 22:23:00 r ve Heart 451-44c6-b l Care PA 4v8-2b3328 Haylee nn gs9183 2013-07-31 2013-07-31 Unknown nullFlavo Comprehensi f487 24d6-f [facility]oria 22:23:00 22:23:00 r ve Heart 7eb-4692-9 l Care PA z05-h866l3 Haylee nn 94a83d 2013-07-31 2013-07-31 Unknown nullFlavo Comprehensi 7a77 f8ad-6 [facility]oria 22:23:00 22:23:00 r ve Heart 480-4c1d-9 l Care PA 2q1-u373g2 Haylee nn ad1dea 2013-07-31 2013-07-31 Unknown nullFlavo Comprehensi c15c 87e8-8 [facility]oria 22:23:00 22:23:00 r ve Heart 8l3-3gwo-0 l Care PA 44d-bd03bd Haylee nn 64e79e 2013-07-31 2013-07-31 Unknown nullFlavo Comprehensi 62ae e04f-4 [facility] 22:23:00 22:23:00 r ve Heart 0b6-236j-k l Care PA 3cb-4e61b1 [facility] nn 73850t 2013-07-31 2013-07-31 Unknown nullFlavo Comprehensi 4a2c 658a-6 [facility]oria 22:23:00 22:23:00 r ve Heart 20a-464f-b l Care PA 831-bd4df9 Haylee nn cacb12 2013-07-31 2013-07-31 Unknown nullFlavo Comprehensi bc37 ccc5-c [facility]oria 22:23:00 22:23:00 r ve Heart 2v0-9844-0 l Care PA 782-3ff4a4 Haylee nn 513b25 2013-07-31 2013-07-31 Unknown nullFlavo Comprehensi 8cd9 14cf-4 [facility]oria 22:23:00 22:23:00 r ve Heart 9ed-4d37-a l Care PA 407-4e6aea [facility] nn 8w1369 2013-07-31 2013-07-31 Unknown nullFlavo Comprehensi 0449 b7b9-e Memoria 22:23:00 22:23:00 r ve Heart 835-47e4-b l Care PA 410-o90546 [facility] nn 925123 3164-11-18 2013-07-31 Unknown nullFlavo Comprehensi 86cc 1771-1 [facility] 22:23:00 22:23:00 r ve Heart de7-4f34-a l Care PA 242-61455h [facility] nn 1eca41 2013-07-31 2013-07-31 Unknown nullFlavo Comprehensi 3b65 5974-c Memoria 22:23:00 22:23:00 r ve Heart 19f-4a17-9 l Care PA 7j9-o56e1n [facility] nn 99eab1 2013-07-31 2013-07-31 Unknown nullFlavo Comprehensi e6b8 9fef-2 Memoria 22:23:00 22:23:00 r ve Heart 0z9-981q-s l Care PA 6s7-7739yp [facility] nn 724411 7792-11-18 2013-07-31 Unknown nullFlavo Comprehensi 9e57 c1dd-f Memoria 22:23:00 22:23:00 r ve Heart f43-5mx9-p l Care PA 773-4798d8 [facility] nn 265419 9760-11-18 2013-07-31 Unknown nullFlavo Comprehensi 01da 738b-a Memoria 22:23:00 22:23:00 r ve Heart 4ed-40cf-9 l Care PA 29f-612030 [facility] nn 9ec3c4 2013-07-31 2013-07-31 Unknown nullFlavo Comprehensi 08b0 7107-4 Memoria 22:23:00 22:23:00 r ve Heart w26-38u4-v l Care PA eec-f754fd [facility] nn e36ad6 2013-07-31 2013-07-31 Unknown nullFlavo Comprehensi 0e6f d61e-2 Memoria 22:23:00 22:23:00 r ve Heart d07-446g-4 l Care PA 5cd-1fc3c3 [facility] nn 4b2f75 2013-07-31 2013-07-31 Unknown nullFlavo Comprehensi 04d7 2572-a Memoria 22:23:00 22:23:00 r ve Heart 96f-4db5-9 l Care PA 22b-8f0b26 [facility] nn 502840 8479-11-18 2013-07-31 Unknown nullFlavo Comprehensi 09ca 54cd-8 Memoria 22:23:00 22:23:00 r ve Heart ce1-4b9b-a l Care PA x6b-52783u [facility] nn 7bdfd5 2013-07-31 2013-07-31 Unknown nullFlavo Comprehensi 8dbc afe4-9 Memoria 22:23:00 22:23:00 r ve Heart 451-44c6-b l Care PA 3l3-3o5114 [facility] nn xn0792 2013-07-31 2013-07-31 Unknown nullFlavo Comprehensi f487 24d6-f [facility] 22:23:00 22:23:00 r ve Heart 7eb-4692-9 l Care PA m15-d775k7 [facility] nn 94a83d 2013-07-31 2013-07-31 Unknown nullFlavo Comprehensi 7a77 f8ad-6 Memoria 22:23:00 22:23:00 r ve Heart 480-4c1d-9 l Care PA 2b5-j491a1 [facility] nn ad1dea 2013-07-31 2013-07-31 Unknown nullFlavo Comprehensi c15c 87e8-8 Memoria 22:23:00 22:23:00 r ve Heart 8f8-6ubg-8 l Care PA 44d-bd03bd Haylee nn 64e79e 2013-07-31 2013-07-31 Unknown nullFlavo Comprehensi 62ae e04f-4 [facility] 22:23:00 22:23:00 r ve Heart 4y1-262i-n l Care PA 3cb-4e61b1 Haylee nn 17150p 2013-07-31 2013-07-31 Outpatient Comprehen Comprehensi 2 92747 [facility] 17:23:00 17:23:00 sive ve [facility] al[facility]or tn Heart [facility] PA Care PA 2013-07-31 2013-07-31 Outpatient Comprehen Comprehensi 2 26464 [facility] 17:23:00 17:23[facility] 2013-06-23 2013-06-23 Unknown nullFlavo Comprehensi 801f bf4d-7 Memoria 19:36:00 19:36:00 r ve Heart 863-4c2d-8 l Care PA 103-81p269 Haylee nn 801969 9395-10-11 2013-06-23 Unknown nullFlavo Comprehensi ef62 2637-0 [facility]oria 19:36:00 19:36:00 r ve Heart af5-4c02-9 l Care PA m07-ca59x3 [facility]lee nn 98cf19 2013-06-23 2013-06-23 Unknown nullFlavo Comprehensi 44ed 0b92-6 Memoria 19:36:00 19:36:00 r ve Heart 94b-49d7-a l Care PA 450-edf5fc Haylee nn 720e5e 2013-06-23 2013-06-23 Unknown nullFlavo Comprehensi d7cd 72b9-2 Memoria 19:36:00 19:36:00 r ve Heart 2ff-4b86-9 l Care PA fce-e7d1d0 [facility]e nn q5772s 2013-06-23 2013-06-23 Unknown nullFlavo Comprehensi f975 683b-9 Memoria 19:36:00 19:36:00 r ve Heart 7ae-4349-9 l Care PA 645-97q227 Hayele nn 19dd33 2013-06-23 2013-06-23 Unknown nullFlavo Comprehensi 3622 65fa-9 Memoria 19:36:00 19:36:00 r ve Heart e75-00a7-b l Care PA 605-e64e43 Haylee nn d24fff 2013-06-23 2013-06-23 Unknown nullFlavo Comprehensi 9f23 3707-e Memoria 19:36:00 19:36:00 r ve Heart 75e-40e2-9 l Care PA aef-02dc89 Haylee nn 7c8c5c 2013-06-23 2013-06-23 Unknown nullFlavo Comprehensi baaa 0f6c-7 Memoria 19:36:00 19:36:00 r ve Heart 350-4bd4-9 l Care PA n94-x08yv6 [place]lee nn 465001 6778-10-11 2013-06-23 Unknown nullFlavo Comprehensi 7f19 7246-d Memoria 19:36:00 19:36:00 r ve Heart l57-18c8-v l Care PA fe1-d54ef8 [facility]lee nn 6d2efb 2013-06-23 2013-06-23 Unknown nullFlavo Comprehensi 2279 5cae-4 Memoria 19:36:00 19:36:00 r ve Heart 424-4063-b l Care PA 09e-403e70 Haylee nn px614j 2013-06-23 2013-06-23 Unknown nullFlavo Comprehensi ed11 c232-6 Memoria 19:36:00 19:36:00 r ve Heart 7j3-98u3-4 l Care PA cbb-6225af Haylee nn a6fb0f 2013-06-23 2013-06-23 Unknown nullFlavo Comprehensi 86e4 ee17-8 Memoria 19:36:00 19:36:00 r ve Heart 48f-408f-9 l Care PA s8n-5o579f Haylee nn 8c471s 2013-06-23 2013-06-23 Unknown nullFlavo Comprehensi 801f bf4d-7 Memoria 19:36:00 19:36:00 r ve Heart 863-4c2d-8 l Care PA 103-88j735 [facility] 520940 0756-10-11 2013-06-23 Unknown nullFlavo Comprehensi d7cd 72b9-2 Memoria 19:36:00 19:36:00 r ve Heart 2ff-4b86-9 l Care PA fce-e7d1d0 [facility] nn b5063s 2013-06-23 2013-06-23 Unknown nullFlavo Comprehensi f975 683b-9 Memoria 19:36:00 19:36:00 r ve Heart 7ae-4349-9 l Care PA 645-58q397 [facility] nn 19dd33 2013-06-23 2013-06-23 Unknown nullFlavo Comprehensi ef62 2637-0 Memoria 19:36:00 19:36:00 r ve Heart af5-4c02-9 l Care PA k23-mv22q7 [facility] nn 98cf19 2013-06-23 2013-06-23 Unknown nullFlavo Comprehensi 44ed 0b92-6 Memoria 19:36:00 19:36:00 r ve Heart 94b-49d7-a l Care PA 450-edf5fc [facility] nn 720e5e 2013-06-23 2013-06-23 Unknown nullFlavo Comprehensi 2279 5cae-4 Memoria 19:36:00 19:36:00 r ve Heart 424-4063-b l Care PA 09e-403e70 [facility] nn ae919z 2013-06-23 2013-06-23 Unknown nullFlavo Comprehensi 3622 65fa-9 Memoria 19:36:00 19:36:00 r ve Heart g45-24y4-w l Care PA 605-e64e43 [facility] nn d24fff 2013-06-23 2013-06-23 Unknown nullFlavo Comprehensi 9f23 3707-e Memoria 19:36:00 19:36:00 r ve Heart 75e-40e2-9 l Care PA aef-02dc89 [facility] nn 7c8c5c 2013-06-23 2013-06-23 Unknown nullFlavo Comprehensi 86e4 ee17-8 Memoria 19:36:00 19:36:00 r ve Heart 48f-408f-9 l Care PA a6v-0i453w [facility] nn 6r384b 2013-06-23 2013-06-23 Unknown nullFlavo Comprehensi ed11 c232-6 Memoria 19:36:00 19:36:00 r ve Heart 1g1-89w4-3 l Care PA cbb-6225af Hyalee nn a6fb0f 2013-06-23 2013-06-23 Unknown nullFlavo Comprehensi baaa 0f6c-7 Memoria 19:36:00 19:36:00 r ve Heart 350-4bd4-9 l Care PA l91-v88yw7 Haylee nn 475688 6691-10-11 2013-06-23 Unknown nullFlavo Comprehensi 7f19 7246-d Memoria 19:36:00 19:36:00 r ve Heart k57-06b7-n l Care PA fe1-d54ef8 Haylee nn 6d2efb 2013-06-23 2013-06-23 Unknown nullFlavo Comprehensi 801f bf4d-7 Memoria 19:36:00 19:36:00 r ve Heart 863-4c2d-8 l Care PA 103-53y213 Haylee nn 377733 9879-10-11 2013-06-23 Unknown nullFlavo Comprehensi d7cd 72b9-2 Memoria 19:36:00 19:36:00 r ve Heart 2ff-4b86-9 l Care PA fce-e7d1d0 Haylee nn s5328w 2013-06-23 2013-06-23 Unknown nullFlavo Comprehensi f975 683b-9 Memoria 19:36:00 19:36:00 r ve Heart 7ae-4349-9 l Care PA 645-64k411 Haylee nn 19dd33 2013-06-23 2013-06-23 Unknown nullFlavo Comprehensi ef62 2637-0 Memoria 19:36:00 19:36:00 r ve Heart af5-4c02-9 l Care PA u82-vt09b2 Haylee nn 98cf19 2013-06-23 2013-06-23 Unknown nullFlavo Comprehensi 44ed 0b92-6 Memoria 19:36:00 19:36:00 r ve Heart 94b-49d7-a l Care PA 450-edf5fc Haylee nn 720e5e 2013-06-23 2013-06-23 Unknown nullFlavo Comprehensi 2279 5cae-4 Memoria 19:36:00 19:36:00 r ve Heart 424-4063-b l Care PA 09e-403e70 Haylee nn vz031y 2013-06-23 2013-06-23 Unknown nullFlavo Comprehensi 3622 65fa-9 Memoria 19:36:00 19:36:00 r ve Heart u41-56p2-a l Care PA 605-e64e43 Haylee nn d24fff 2013-06-23 2013-06-23 Unknown nullFlavo Comprehensi 9f23 3707-e Memoria 19:36:00 19:36:00 r ve Heart 75e-40e2-9 l Care PA aef-02dc89 Haylee nn 7c8c5c 2013-06-23 2013-06-23 Unknown nullFlavo Comprehensi 86e4 ee17-8 Memoria 19:36:00 19:36:00 r ve Heart 48f-408f-9 l Care PA v6v-2j339m Haylee nn 3e818d 2013-06-23 2013-06-23 Unknown nullFlavo Comprehensi ed11 c232-6 Memoria 19:36:00 19:36:00 r ve Heart 6s7-47i1-3 l Care PA cbb-6225af Haylee nn a6fb0f 2013-06-23 2013-06-23 Unknown nullFlavo Comprehensi baaa 0f6c-7 Memoria 19:36:00 19:36:00 r ve Heart 350-4bd4-9 l Care PA j35-w46gu1 Haylee nn 414416 0230-10-11 2013-06-23 Unknown nullFlavo Comprehensi 7f19 7246-d Memoria 19:36:00 19:36:00 r ve Heart j32-26y4-o l Care PA fe1-d54ef8 Haylee nn 6d2efb 2013-06-23 2013-06-23 Unknown nullFlavo Comprehensi 55b1 cb54-e Memoria 18:36:00 18:36:00 r ve Heart 821-4e53-9 l Care PA 095-i9449b Haylee nn 538208 4662-10-11 2013-06-23 Unknown nullFlavo Comprehensi 0864 0f64-3 Memoria 18:36:00 18:36:00 r ve Heart 6p7-9d8k-z l Care PA 6y5-msn669 Haylee nn 3760fd 2013-06-23 2013-06-23 Unknown nullFlavo Comprehensi 1c46 1d94-1 Memoria 18:36:00 18:36:00 r ve Heart t6h-2u4f-d l Care PA c5g-124shs Haylee nn 1fo232 2013-06-23 2013-06-23 Unknown nullFlavo Comprehensi b524 cedc-e Memoria 18:36:00 18:36:00 r ve Heart 377-439c-a l Care PA 23b-k4564n Haylee nn 5814fb 2013-06-23 2013-06-23 Unknown nullFlavo Comprehensi 1d2f 329f-e Memoria 18:36:00 18:36:00 r ve Heart z33-5qxd-u l Care PA 657-664167 Haylee nn 9644b6 2013-06-23 2013-06-23 Unknown nullFlavo Comprehensi fd75 3172-9 Memoria 18:36:00 18:36:00 r ve Heart bce-4607-b l Care PA af3-406b7c Haylee nn 179c17 2013-06-23 2013-06-23 Unknown nullFlavo Comprehensi 87e5 d721-a Memoria 18:36:00 18:36:00 r ve Heart k87-5b21-0 l Care PA f0x-61p51c Haylee nn 4bf18f 2013-06-23 2013-06-23 Unknown nullFlavo Comprehensi 184e f372-7 Memoria 18:36:00 18:36:00 r ve Heart 90f-4ab7-9 l Care PA i82-h5d13b [facility]lee nn 96e7e2 2013-06-23 2013-06-23 Unknown nullFlavo Comprehensi d7bb d637-f Memoria 18:36:00 18:36:00 r ve Heart 040-4a66-b l Care PA 42e-27f1b6 Haylee nn 8d69ea 2013-06-23 2013-06-23 Unknown nullFlavo Comprehensi 4f14 799b-0 Memoria 18:36:00 18:36:00 r ve Heart ebe-4ec7-8 l Care PA 0o6-x8i767 [facility]lee nn 79m597 2013-06-23 2013-06-23 Unknown nullFlavo Comprehensi 7b2a 8df6-9 Memoria 18:36:00 18:36:00 r ve Heart 1e2-6256-1 l Care PA 5g5-6py1va Haylee nn 372808 6153-10-11 2013-06-23 Unknown nullFlavo Comprehensi 797c ef06-7 Memoria 18:36:00 18:36:00 r ve Heart 414-42c5-a l Care PA 646-06e9a5 [facility]lee nn b562f7 2013-06-23 2013-06-23 Unknown nullFlavo Comprehensi e9f6 955c-9 Memoria 18:36:00 18:36:00 r ve Heart fde-41c8-9 l Care PA m1t-n2f8kr Haylee nn 985ebe 2013-06-23 2013-06-23 Unknown nullFlavo [...] r ve Heart 68a-4a47-8 l Care PA c4i-v93qx7 [facility]lee nn 111e13 2013-06-23 2013-06-23 Unknown nullFlavo Comprehensi b248 193f-0 Memoria 18:36:00 18:36:00 r ve Heart 018-457c-8 l Care PA cc6-2ym785 Haylee nn 5d236t 2013-06-23 2013-06-23 Unknown nullFlavo Comprehensi 4e13 e16f-e Memoria 18:36:00 18:36:00 r ve Heart d6i-28c1-e l Care PA e5l-3h290j Haylee nn 386593 5242-10-11 2013-06-23 Unknown nullFlavo Comprehensi 55b1 cb54-e Memoria 18:36:00 18:36:00 r ve Heart 821-4e53-9 l Care PA 095-s5700p Haylee nn 993963 6077-10-11 2013-06-23 Unknown nullFlavo Comprehensi 1d2f 329f-e Memoria 18:36:00 18:36:00 r ve Heart b19-5ncn-i l Care PA 657-886197 [facility] nn 9644b6 2013-06-23 2013-06-23 Unknown nullFlavo Comprehensi 4f14 799b-0 Memoria 18:36:00 18:36:00 r ve Heart ebe-4ec7-8 l Care PA 5b5-k0z244 [facility]lee nn 21u721 2013-06-23 2013-06-23 Unknown nullFlavo Comprehensi 0864 0f64-3 Memoria 18:36:00 18:36:00 r ve Heart 3a6-2j5n-u l Care PA 5k5-ipi310 [facility] nn 3760fd 2013-06-23 2013-06-23 Unknown nullFlavo Comprehensi 1c46 1d94-1 Memoria 18:36:00 18:36:00 r ve Heart z9h-7k8d-r l Care PA d8d-883clp Haylee nn 5fz652 2013-06-23 2013-06-23 Unknown nullFlavo Comprehensi d7bb d637-f Memoria 18:36:00 18:36:00 r ve Heart 040-4a66-b l Care PA 42e-27f1b6 Haylee nn 8d69ea 2013-06-23 2013-06-23 Unknown nullFlavo Comprehensi fd75 3172-9 Memoria 18:36:00 18:36:00 r ve Heart bce-4607-b l Care PA af3-406b7c [facility]lee nn 179c17 2013-06-23 2013-06-23 Unknown nullFlavo Comprehensi 184e f372-7 Memoria 18:36:00 18:36:00 r ve Heart 90f-4ab7-9 l Care PA y39-d6j01p [facility]lee nn 96e7e2 2013-06-23 2013-06-23 Unknown nullFlavo Comprehensi 3f22 283f-7 Memoria 18:36:00 18:36:00 r ve Heart 45b-46a2-a l Care PA 52c-e875c4 Haylee nn ccc23d 2013-06-23 2013-06-23 Unknown nullFlavo Comprehensi 87e5 d721-a Memoria 18:36:00 18:36:00 r ve Heart n53-4y43-5 l Care PA a7t-62w23n Haylee nn 4bf18f 2013-06-23 2013-06-23 Unknown nullFlavo Comprehensi 3d53 90e0-9 Memoria 18:36:00 18:36:00 r ve Heart 4ab-41a6-b l Care PA ffc-8f42c8 Haylee nn 25a41e 2013-06-23 2013-06-23 Unknown nullFlavo Comprehensi e9f6 955c-9 Memoria 18:36:00 18:36:00 r ve Heart fde-41c8-9 l Care PA w0d-u2j9xl Haylee nn 985ebe 2013-06-23 2013-06-23 Unknown nullFlavo Comprehensi 797c ef06-7 Memoria 18:36:00 18:36:00 r ve Heart 414-42c5-a l Care PA 646-06e9a5 Haylee nn b562f7 2013-06-23 2013-06-23 Unknown nullFlavo Comprehensi b524 cedc-e Memoria 18:36:00 18:36:00 r ve Heart 377-439c-a l Care PA 23b-k1203x Haylee nn 5814fb 2013-06-23 2013-06-23 Unknown nullFlavo Comprehensi a046 28d8-e Memoria 18:36:00 18:36:00 r ve Heart 68a-4a47-8 l Care PA h8d-u99fb9 Haylee nn 111e13 2013-06-23 2013-06-23 Unknown nullFlavo Comprehensi 7b2a 8df6-9 Memoria 18:36:00 18:36:00 r ve Heart 3f4-5511-1 l Care PA 3a3-7ct2wd [facility] nn 883763 4414-10-11 2013-06-23 Unknown nullFlavo Comprehensi 2d0e bdba-a Memoria 18:36:00 18:36:00 r ve Heart 815-4e63-a l Care PA 35a-ec22c8 Haylee nn e1e8c9 2013-06-23 2013-06-23 Unknown nullFlavo Comprehensi b248 193f-0 Memoria 18:36:00 18:36:00 r ve Heart 018-457c-8 l Care PA cc6-9wn746 [facility] nn 6w075w 2013-06-23 2013-06-23 Unknown nullFlavo Comprehensi 4e13 e16f-e Memoria 18:36:00 18:36:00 r ve Heart z5n-49w7-t l Care PA g9d-5b680c [facility] nn 766433 8751-10-11 2013-06-23 Unknown nullFlavo Comprehensi 55b1 cb54-e Memoria 18:36:00 18:36:00 r ve Heart 821-4e53-9 l Care PA 095-w2528a [facility] nn 766548 8100-10-11 2013-06-23 Unknown nullFlavo Comprehensi 1d2f 329f-e Memoria 18:36:00 18:36:00 r ve Heart u53-1szn-m l Care PA 657-163525 [facility] nn 9644b6 2013-06-23 2013-06-23 Unknown nullFlavo Comprehensi 4f14 799b-0 Memoria 18:36:00 18:36:00 r ve Heart ebe-4ec7-8 l Care PA 2w2-m7e578 [facility] nn 46w868 2013-06-23 2013-06-23 Unknown nullFlavo Comprehensi 0864 0f64-3 Memoria 18:36:00 18:36:00 r ve Heart 8j5-4t0x-t l Care PA 0f4-hge659 Haylee nn 3760fd 2013-06-23 2013-06-23 Unknown nullFlavo Comprehensi 1c46 1d94-1 Memoria 18:36:00 18:36:00 r ve Heart c8e-3h4w-s l Care PA s8s-230qig Haylee nn 5pp488 2013-06-23 2013-06-23 Unknown nullFlavo Comprehensi d7bb d637-f Mem[facility] 18:36:00 18:36:00 r ve Heart 040-4a66-b l Care PA 42e-27f1b6 Haylee nn 8d69ea 2013-06-23 2013-06-23 Unknown nullFlavo Comprehensi fd75 3172-9 Memoria 18:36:00 18:36:00 r ve Heart bce-4607-b l Care PA af3-406b7c Haylee nn 179c17 2013-06-23 2013-06-23 Unknown nullFlavo Comprehensi 184e f372-7 Memoria 18:36:00 18:36:00 r ve Heart 90f-4ab7-9 l Care PA v96-a2x44f Haylee nn 96e7e2 2013-06-23 2013-06-23 Unknown nullFlavo Comprehensi 3f22 283f-7 Memoria 18:36:00 18:36:00 r ve Heart 45b-46a2-a l Care PA 52c-e875c4 Haylee nn ccc23d 2013-06-23 2013-06-23 Unknown nullFlavo Comprehensi 87e5 d721-a Memoria 18:36:00 18:36:00 r ve Heart f00-0o06-7 l Care PA e8o-98r16z Haylee nn 4bf18f 2013-06-23 2013-06-23 Unknown nullFlavo Comprehensi 3d53 90e0-9 Memoria 18:36:00 18:36:00 r ve Heart 4ab-41a6-b l Care PA ffc-8f42c8 Haylee nn 25a41e 2013-06-23 2013-06-23 Unknown nullFlavo Comprehensi e9f6 955c-9 Memoria 18:36:00 18:36:00 r ve Heart fde-41c8-9 l Care PA [id number] Haylee nn [id number] 2013-06-23 2013-06-23 Unknown nullFlavo Comprehensi 797c ef06-7 [facility] 18:36:00 18:36:00 r ve Heart 414-42c5-a l Care PA [id number] [facility] nn [id number] 2013-06-23 2013-06-23 Unknown nullFlavo Comprehensi b524 cedc-e [facility] 18:36:00 18:36:00 r ve Heart 377-439c-a l Care PA [id number] [facility] nn [id number] 2013-06-23 2013-06-23 Unknown nullFlavo Comprehensi a046 28d8-e [facility] 18:36:00 18:36:00 r ve Heart 68a-4a47-8 l Care PA [id number]-p88jj6 [facility] nn [id number] 2013-06-23 2013-06-23 Unknown nullFlavo Comprehensi 7b2a 8df6-9 [facility] 18:36:00 18:36:00 r ve Heart 9o0-4992-2 l Care PA [id number] [facility] nn [id number] 2887-10-11 2013-06-23 Unknown nullFlavo Comprehensi 2d0e bdba-a [facility] 18:36:00 18:36:00 r ve Heart 815-4e63-a l Care PA [id number]-ec22c8 [facility] nn [id number] 2013-06-23 2013-06-23 Unknown nullFlavo Comprehensi b248 193f-0 [facility] 18:36:00 18:36:00 r ve Heart 018-457c-8 l Care PA [id number] [facility] nn [id number] 2013-06-23 2013-06-23 Unknown nullFlavo Comprehensi 4e13 e16f-e [facility] 18:36:00 18:36:00 r ve Heart u8j-15s3-i l Care PA [id number]-[id number] [facility] nn [id number] 1346-10-11 2013-06-23 Outpatient Comprehen Comprehensi 2 84978 [facility] 13:36:00 13:36:00 [facility]ive ve [facility]or k[facility] PA Care PA 2013-06-23 2013-06-23 Outpatient Comprehen Comprehensi 2 15628 [facility] 13:36:00 13:36:00 [facility] PA Care PA 2013-06-13 2013-06-13 Unknown nullFlavo Comprehensi ae99 40ca-2 [facility] 22:44:00 22:44:00 r ve Heart 84b-4a27-a l Care PA [id number] Haylee nn [id number] 2013-06-13 2013-06-13 Unknown nullFlavo Comprehensi 56b5 7b87-e [facility] 22:44:00 22:44:00 r ve Heart 887-49cd-9 l Care PA [id number] Haylee nn [id number] 2013-06-13 2013-06-13 Unknown nullFlavo Comprehensi 538c 3498-5 [facility] 22:44:00 22:44:00 r ve Heart 617-4476-9 l Care PA 23e-afd7b1 Haylee nn [id number] 2013-06-13 2013-06-13 Unknown nullFlavo Comprehensi f85b 9a63-7 [facility] 22:44:00 22:44:00 r ve Heart k7l-55j6-6 l Care PA [id number]-0aaq12 Haylee nn [id number] 2013-06-13 2013-06-13 Unknown nullFlavo Comprehensi 8d91 62ee-e [facility] 22:44:00 22:44:00 r ve Heart bc3-48e3-8 l Care PA [id number] Haylee nn [id number] 2013-06-13 2013-06-13 Unknown nullFlavo Comprehensi e4cd f5b7-a [facility] 22:44:00 22:44:00 r ve Heart b3b-6946-m l Care PA [id number] [facility] nn [id number] 2117-10-01 2013-06-13 Unknown nullFlavo Comprehensi bbe0 d311-b [facility] 22:44:00 22:44:00 r ve Heart y9n-8t38-8 l Care PA bc9-c0e7a9 Haylee nn [id number] 2013-06-13 2013-06-13 Unknown nullFlavo Comprehensi 83c5 6302-f [facility] 22:44:00 22:44:00 r ve Heart 8w8-4sc8-9 l Care PA [id number]-e045a6 [facility] nn [id number] 2013-06-13 2013-06-13 Unknown nullFlavo Comprehensi d66b 3b66-0 [facility] 22:44:00 22:44:00 r ve Heart 0fa-437c-a l Care PA ca0-2027c7 [facility] nn [id number] 2013-06-13 2013-06-13 Unknown nullFlavo Comprehensi b8ab f28d-b [facility] 22:44:00 22:44:00 r ve Heart e95-3623-x l Care PA 1p9-02x6ax [facility] nn a6afc3 2013-06-13 2013-06-13 Unknown nullFlavo Comprehensi abe2 f998-9 [facility] 22:44:00 22:44:00 r ve Heart shivam-4ffb-a l Care PA [id number]-w3u60r [facility] nn [id number] 2013-06-13 2013-06-13 Unknown nullFlavo Comprehensi 19c0 ac33-e [facility] 22:44:00 22:44:00 r ve Heart 2c8-0wj4-4 l Care PA [id number] [facility] nn ab87f7 2013-06-13 2013-06-13 Unknown nullFlavo Comprehensi ae99 40ca-2 [facility] 22:44:00 22:44:00 r ve Heart 84b-4a27-a l Care PA [id number] [facility] nn [id number] 2013-06-13 2013-06-13 Unknown nullFlavo Comprehensi f85b 9a63-7 [facility] 22:44:00 22:44:00 r ve Heart x8a-44j2-0 l Care PA [id number]-9dyp27 [facility] nn [id number] 2013-06-13 2013-06-13 Unknown nullFlavo Comprehensi 8d91 62ee-e [facility] 22:44:00 22:44:00 r ve Heart bc3-48e3-8 l Care PA [id number] [facility] nn [id number] 2013-06-13 2013-06-13 Unknown nullFlavo Comprehensi 56b5 7b87-e [facility] 22:44:00 22:44:00 r ve Heart 887-49cd-9 l Care PA [id number] [facility] nn [id number] 2013-06-13 2013-06-13 Unknown nullFlavo Comprehensi 538c 3498-5 [facility] 22:44:00 22:44:00 r ve Heart 617-4476-9 l Care PA 23e-afd7b1 Haylee nn 84584k 2013-06-13 2013-06-13 Unknown nullFlavo Comprehensi b8ab f28d-b [facility] 22:44:00 22:44:00 r ve Heart a19-6677-i l Care PA [id number] Haylee nn a6afc3 2013-06-13 2013-06-13 Unknown nullFlavo Comprehensi e4cd f5b7-a [facility] 22:44:00 22:44:00 r ve Heart z5p-7432-x l Care PA [id number] Haylee nn [id number] 2655-10-01 2013-06-13 Unknown nullFlavo Comprehensi bbe0 d311-b [facility] 22:44:00 22:44:00 r ve Heart j4k-6n47-4 l Care PA bc9-c0e7a9 [facility]lee nn [id number] 2013-06-13 2013-06-13 Unknown nullFlavo Comprehensi 19c0 ac33-e [facility] 22:44:00 22:44:00 [facility] ve [facility] 1n8-0nd9-2 l Care PA q4p-0z1794 [facility] nn ab87f7 2013-06-13 2013-06-13 Unknown nullFlavo Comprehensi abe2 f998-9 [facility] 22:44:00 22:44:00 r ve Heart shivam-4ffb-a l Care PA x5n-z9l57w Haylee nn 9fd5d1 2013-06-13 2013-06-13 Unknown nullFlavo Comprehensi 83c5 6302-f [facility] 22:44:00 22:44:00 r ve Heart 5e5-4ud0-7 l Care PA dbb-e045a6 [facility]lee nn gmv293 2013-06-13 2013-06-13 Unknown nullFlavo Comprehensi d66b 3b66-0 [facility] 22:44:00 22:44:00 r ve Heart 0fa-437c-a l Care PA ca0-2027c7 Haylee nn 2d92a7 2013-06-13 2013-06-13 Unknown nullFlavo Comprehensi ae99 40ca-2 [facility] 22:44:00 22:44:00 r ve Heart 84b-4a27-a l Care PA 1t4-047g8q Haylee nn f589e2 2013-06-13 2013-06-13 Unknown nullFlavo Comprehensi f85b 9a63-7 [facility] 22:44:00 22:44:00 r ve Heart t8f-50c3-4 l Care PA x5r-4fdn35 Haylee nn 293f08 2013-06-13 2013-06-13 Unknown nullFlavo Comprehensi 8d91 62ee-e [facility] 22:44:00 22:44:00 r ve Heart bc3-48e3-8 l Care PA fd1-886884 Haylee nn 0f382d 2013-06-13 2013-06-13 Unknown nullFlavo Comprehensi 56b5 7b87-e [facility]oria 22:44:00 22:44:00 r ve Heart 887-49cd-9 l Care PA 952-0054b1 Haylee nn 5m074n 2013-06-13 2013-06-13 Unknown nullFlavo Comprehensi 538c 3498-5 [facility] 22:44:00 22:44:00 r ve Heart 617-4476-9 l Care PA 23e-afd7b1 Haylee nn 84119n 2013-06-13 2013-06-13 Unknown nullFlavo Comprehensi b8ab f28d-b [facility] 22:44:00 22:44:00 r ve Heart n40-9949-z l Care PA 9s4-67t5qg [facility] nn a6afc3 2013-06-13 2013-06-13 Unknown nullFlavo Comprehensi e4cd f5b7-a [facility]oria 22:44:00 22:44:00 r ve Heart y1k-6297-p l Care PA u07-g87672 [facility] nn 262610 8888-10-01 2013-06-13 Unknown nullFlavo Comprehensi bbe0 d311-b [facility] 22:44:00 22:44:00 r ve Heart y8e-9x92-8 l Care PA bc9-c0e7a9 [facility]lee nn f2cb65 2013-06-13 2013-06-13 Unknown nullFlavo Comprehensi 19c0 ac33-e [facility] 22:44:00 22:44:00 r ve Heart 8t3-8as2-9 l Care PA u3f-5d8616 Haylee nn ab87f7 2013-06-13 2013-06-13 Unknown nullFlavo Comprehensi abe2 f998-9 [facility] 22:44:00 22:44:00 r ve Heart shivam-4ffb-a l Care PA u3s-n7x39i Haylee nn 9fd5d1 2013-06-13 2013-06-13 Unknown nullFlavo Comprehensi 83c5 6302-f [facility] 22:44:00 22:44:00 r ve Heart 5e7-8tt4-2 l Care PA dbb-e045a6 Haylee nn cbl828 2013-06-13 2013-06-13 Unknown nullFlavo Comprehensi d66b 3b66-0 [facility] 22:44:00 22:44:00 r ve Heart 0fa-437c-a l Care PA ca0-2027c7 Haylee nn 2d92a7 2013-06-13 2013-06-13 Unknown nullFlavo Comprehensi f909 8713-1 [facility] 21:44:00 21:44:00 r ve Heart g7x-30q8-q l Care PA z40-89a8l8 [facility]lee nn 899f62 2013-06-13 2013-06-13 Unknown nullFlavo Comprehensi ccd1 5e6c-8 [facility] 21:44:00 21:44:00 r ve Heart 409-405e-8 l Care PA q16-5401yq Haylee nn e528ee 2013-06-13 2013-06-13 Unknown nullFlavo Comprehensi afd0 32fe-8 [facility] 21:44:00 21:44:00 r ve Heart 3ef-4bb8-a l Care PA 32b-3805b3 Haylee nn ec0c0f 2013-06-13 2013-06-13 Unknown nullFlavo Comprehensi d4a9 6d7b-4 [facility] 21:44:00 21:44:00 r ve Heart 74d-4faf-9 l Care PA n73-av1199 Haylee nn 1cfe31 2013-06-13 2013-06-13 Unknown nullFlavo Comprehensi 1148 d3c5-4 [facility] 21:44:00 21:44:00 r ve Heart 3d4-0n71-w l Care PA p03-0c97ma Haylee nn u2971c 2013-06-13 2013-06-13 Unknown nullFlavo Comprehensi 2bad cdd4-c [facility] 21:44:00 21:44:00 r ve Heart 75e-43ba-b l Care PA r09-403u3d [facility]lee nn e650fb 2013-06-13 2013-06-13 Unknown nullFlavo Comprehensi 4c8b 2b04-8 [facility]oria 21:44:00 21:44:00 r ve Heart h49-8079-v l Care PA 864-867df6 [facility]lee nn 212c29 2013-06-13 2013-06-13 Unknown nullFlavo Comprehensi ee51 bd4f-9 [facility] 21:44:00 21:44:00 r ve Heart 632-4436-9 l Care PA c57-45aqzd Haylee nn 5868ef 2013-06-13 2013-06-13 Unknown nullFlavo Comprehensi 73ff 8772-3 [facility] 21:44:00 21:44:00 r ve Heart 1c3-35ct-v l Care PA adb-449d8d [facility] nn c136e8 2013-06-13 2013-06-13 Unknown nullFlavo Comprehensi 40af 459a-7 [facility] 21:44:00 21:44:00 r ve Heart ff4-44c7-a l Care PA g69-4q9322 [facility]lee nn 9c8075 2013-06-13 2013-06-13 Unknown nullFlavo Comprehensi cf0e c0bf-6 [facility] 21:44:00 21:44:00 r ve Heart cc5-49e0-8 l Care PA 88e-b5bd0a [facility]lee nn bzt131 2013-06-13 2013-06-13 Unknown nullFlavo Comprehensi df42 17fe-9 [facility] 21:44:00 21:44:00 r ve Heart 3m1-64c7-z l Care PA 149-war882 Haylee nn 8411d0 2013-06-13 2013-06-13 Unknown nullFlavo Comprehensi cb51 93e5-b [facility] 21:44:00 21:44:00 r ve Heart 41f-4542-b l Care PA 7f8-09545l [facility]lee nn 3c9d64 2013-06-13 2013-06-13 Unknown nullFlavo Comprehensi 77b3 544b-7 [facility] 21:44:00 21:44:00 r ve Heart bfe-41ba-9 l Care PA fe1-5135cb [facility]lee nn 73x258 2013-06-13 2013-06-13 Unknown nullFlavo Comprehensi e321 d8ee-e [facility]oria 21:44:00 21:44:00 r ve Heart bc2-4833-9 l Care PA 78e-536ecc Haylee nn 1f7e89 2013-06-13 2013-06-13 Unknown nullFlavo Comprehensi 1e85 193e-8 [facility] 21:44:00 21:44:00 r ve Heart 896-438a-9 l Care PA 902-500e9f Haylee nn 218884 9470-10-01 2013-06-13 Unknown nullFlavo Comprehensi d26a ccbe-5 [facility] 21:44:00 21:44:00 r ve Heart 1ec-413c-8 l Care PA l88-0wa1i9 [facility] nn tn7587 2013-06-13 2013-06-13 Unknown nullFlavo Comprehensi b93e ddc8-e [facility] 21:44:00 21:44:00 r ve Heart 185-47c9-8 l Care PA 9eb-c40af5 Haylee nn 86f5bc 2013-06-13 2013-06-13 Unknown nullFlavo Comprehensi dce1 9a9b-3 [facility] 21:44:00 21:44:00 r ve Heart 616-4b25-8 l Care PA 836-546062 [facility] nn ef4d9c 2013-06-13 2013-06-13 Unknown nullFlavo Comprehensi aa50 1e8d-9 [facility] 21:44:00 21:44:00 r ve Heart 7t7-6319-2 l Care PA 4c9-hu67rg [facility]lee nn baadb2 2013-06-13 2013-06-13 Unknown nullFlavo Comprehensi f909 8713-1 [facility] 21:44:00 21:44:00 r ve Heart s0g-06r7-u l Care PA u68-55c3s6 [facility]lee nn 899f62 2013-06-13 2013-06-13 Unknown nullFlavo Comprehensi ccd1 5e6c-8 [facility] 21:44:00 21:44:00 r ve Heart 409-405e-8 l Care PA j36-2923my [facility]lee nn e528ee 2013-06-13 2013-06-13 Unknown nullFlavo Comprehensi 2bad cdd4-c [facility] 21:44:00 21:44:00 r ve Heart 75e-43ba-b l Care PA g96-769h1a [facility]lee nn e650fb 2013-06-13 2013-06-13 Unknown nullFlavo Comprehensi cf0e c0bf-6 [facility] 21:44:00 21:44:00 r ve Heart cc5-49e0-8 l Care PA 88e-b5bd0a [facility]lee nn fhx676 2013-06-13 2013-06-13 Unknown nullFlavo Comprehensi afd0 32fe-8 [facility] 21:44:00 21:44:00 r ve Heart 3ef-4bb8-a l Care PA 32b-3805b3 [facility]lee nn ec0c0f 2013-06-13 2013-06-13 Unknown nullFlavo Comprehensi d4a9 6d7b-4 [facility] 21:44:00 21:44:00 r ve Heart 74d-4faf-9 l Care PA w80-es9016 [facility]lee nn 1cfe31 2013-06-13 2013-06-13 Unknown nullFlavo Comprehensi 40af 459a-7 [facility] 21:44:00 21:44:00 r ve Heart ff4-44c7-a l Care PA a95-9w9453 [facility]lee nn 1q9481 2013-06-13 2013-06-13 Unknown nullFlavo Comprehensi 4c8b 2b04-8 [facility] 21:44:00 21:44:00 r ve Heart g39-4746-g l Care PA 864-867df6 [facility] nn 212c29 2013-06-13 2013-06-13 Unknown nullFlavo Comprehensi 73ff 8772-3 [facility] 21:44:00 21:44:00 r ve Heart 8c8-18sn-g l Care PA adb-449d8d [facility]lee nn c136e8 2013-06-13 2013-06-13 Unknown nullFlavo Comprehensi e321 d8ee-e [facility]oria 21:44:00 21:44:00 r ve Heart bc2-4833-9 l Care PA 78e-536ecc Haylee nn 1f7e89 2013-06-13 2013-06-13 Unknown nullFlavo Comprehensi ee51 bd4f-9 [facility]oria 21:44:00 21:44:00 r ve Heart 632-4436-9 l Care PA u61-54itvx Haylee nn 5868ef 2013-06-13 2013-06-13 Unknown nullFlavo Comprehensi 1e85 193e-8 [facility]oria 21:44:00 21:44:00 r ve Heart 896-438a-9 l Care PA 902-500e9f Haylee nn 447372 9638-10-01 2013-06-13 Unknown nullFlavo Comprehensi 77b3 544b-7 [facility] 21:44:00 21:44:00 r ve Heart bfe-41ba-9 l Care PA fe1-5135cb [facility]lee nn 63p036 2013-06-13 2013-06-13 Unknown nullFlavo Comprehensi cb51 93e5-b [facility] 21:44:00 21:44:00 r ve Heart 41f-4542-b l Care PA 7x2-55275j Haylee nn 3c9d64 2013-06-13 2013-06-13 Unknown nullFlavo Comprehensi 1148 d3c5-4 [facility]oria 21:44:00 21:44:00 r ve Heart 0k7-7d16-q l Care PA c07-2n09we Haylee nn t2867d 2013-06-13 2013-06-13 Unknown nullFlavo Comprehensi b93e ddc8-e [facility]oria 21:44:00 21:44:00 r ve Heart 185-47c9-8 l Care PA 9eb-c40af5 Haylee nn 86f5bc 2013-06-13 2013-06-13 Unknown nullFlavo Comprehensi df42 17fe-9 Memoria 21:44:00 21:44:00 r ve Heart 9v5-69j6-e l Care PA 149-mgs727 Haylee nn 8411d0 2013-06-13 2013-06-13 Unknown nullFlavo Comprehensi d26a ccbe-5 [facility]oria 21:44:00 21:44:00 r ve Heart 1ec-413c-8 l Care PA b04-4os4t3 [facility] nn vp1026 2013-06-13 2013-06-13 Unknown nullFlavo Comprehensi dce1 9a9b-3 [facility]oria 21:44:00 21:44:00 r ve Heart 616-4b25-8 l Care PA 836-848462 [facility] nn ef4d9c 2013-06-13 2013-06-13 Unknown nullFlavo Comprehensi aa50 1e8d-9 Memoria 21:44:00 21:44:00 r ve Heart 9r5-8652-8 l Care PA 0z7-os16yw [facility] nn baadb2 2013-06-13 2013-06-13 Unknown nullFlavo Comprehensi f909 8713-1 [facility] 21:44:00 21:44:00 r ve Heart s9r-85a0-w l Care PA o32-69s3f7 [facility] nn 899f62 2013-06-13 2013-06-13 Unknown nullFlavo Comprehensi ccd1 5e6c-8 [facility] 21:44:00 21:44:00 r ve Heart 409-405e-8 l Care PA q59-5952ql [facility] nn e528ee 2013-06-13 2013-06-13 Unknown nullFlavo Comprehensi 2bad cdd4-c [facility] 21:44:00 21:44:00 r ve Heart 75e-43ba-b l Care PA u67-893r6c [facility] nn e650fb 2013-06-13 2013-06-13 Unknown nullFlavo Comprehensi cf0e c0bf-6 [facility]oria 21:44:00 21:44:00 r ve Heart cc5-49e0-8 l Care PA 88e-b5bd0a [facility] nn ujs128 2013-06-13 2013-06-13 Unknown nullFlavo Comprehensi afd0 32fe-8 [facility] 21:44:00 21:44:00 r ve Heart 3ef-4bb8-a l Care PA 32b-3805b3 [facility] nn ec0c0f 2013-06-13 2013-06-13 Unknown nullFlavo Comprehensi d4a9 6d7b-4 [facility]oria 21:44:00 21:44:00 r ve Heart 74d-4faf-9 l Care PA c21-ec7179 [facility]lee nn 1cfe31 2013-06-13 2013-06-13 Unknown nullFlavo Comprehensi 40af 459a-7 Memoria 21:44:00 21:44:00 r ve Heart ff4-44c7-a l Care PA l48-2f7313 [facility]lee nn 6j8780 2013-06-13 2013-06-13 Unknown nullFlavo Comprehensi 4c8b 2b04-8 Memoria 21:44:00 21:44:00 r ve Heart g31-1732-u l Care PA 864-867df6 [facility]lee nn 212c29 2013-06-13 2013-06-13 Unknown nullFlavo Comprehensi 73ff 8772-3 Memoria 21:44:00 21:44:00 r ve Heart 7i5-14lj-b l Care PA adb-449d8d Haylee nn c136e8 2013-06-13 2013-06-13 Unknown nullFlavo Comprehensi e321 d8ee-e Memoria 21:44:00 21:44:00 r ve Heart bc2-4833-9 l Care PA 78e-536ecc Haylee nn 1f7e89 2013-06-13 2013-06-13 Unknown nullFlavo Comprehensi ee51 bd4f-9 [facility]oria 21:44:00 21:44:00 r ve Heart 632-4436-9 l Care PA x49-71insp Haylee nn 5868ef 2013-06-13 2013-06-13 Unknown nullFlavo Comprehensi 1e85 193e-8 [facility] 21:44:00 21:44:00 r ve Heart 896-438a-9 l Care PA 902-500e9f Haylee nn 131575 5691-10-01 2013-06-13 Unknown nullFlavo Comprehensi 77b3 544b-7 [facility] 21:44:00 21:44:00 r ve Heart bfe-41ba-9 l Care PA fe1-5135cb [facility]lee nn 09u168 2013-06-13 2013-06-13 Unknown nullFlavo Comprehensi cb51 93e5-b [facility] 21:44:00 21:44:00 r ve Heart 41f-4542-b l Care PA 7w1-43329x [facility]lee nn 3c9d64 2013-06-13 2013-06-13 Unknown nullFlavo Comprehensi 1148 d3c5-4 [facility]oria 21:44:00 21:44:00 r ve Heart 1d2-7f65-s l Care PA e45-6d63hp Haylee nn f8798c 2013-06-13 2013-06-13 Unknown nullFlavo Comprehensi b93e ddc8-e [facility]oria 21:44:00 21:44:00 r ve Heart 185-47c9-8 l Care PA 9eb-c40af5 Haylee nn 86f5bc 2013-06-13 2013-06-13 Unknown nullFlavo Comprehensi df42 17fe-9 Memoria 21:44:00 21:44:00 r ve Heart 3z8-74g2-e l Care PA 149-hwu441 [facility]lee nn 8411d0 2013-06-13 2013-06-13 Unknown nullFlavo Comprehensi d26a ccbe-5 [facility] 21:44:00 21:44:00 r ve Heart 1ec-413c-8 l Care PA j98-9zb8w6 [facility] nn yx8710 2013-06-13 2013-06-13 Unknown nullFlavo Comprehensi dce1 9a9b-3 [facility]oria 21:44:00 21:44:00 r ve Heart 616-4b25-8 l Care PA 836-482876 [facility] nn ef4d9c 2013-06-13 2013-06-13 Unknown nullFlavo Comprehensi aa50 1e8d-9 [facility] 21:44:00 21:44:00 r ve Heart 5y9-4379-1 l Care PA 3j0-mo98cd [facility] nn baadb2 2013-06-13 2013-06-13 Outpatient Comprehen Comprehensi 2 21075 [facility] 16:44:00 16:44:00 sive ve Heart alWor tn Heart Care PA Care PA 2013-06-13 2013-06-13 Outpatient Comprehen Comprehensi 2 00670 [facility]inic 16:44:00 16:44:00 sive ve Heart alWor tn Heart Care PA Care PA 2013-05-23 2013-05-23 Unknown nullFlavo Comprehensi 7d40 a3de-f [facility] 21:00:00 21:00:00 r ve Heart 374-4a9f-b l Care PA e2j-xd978w [facility]lee nn ee5f15 2013-05-23 2013-05-23 Unknown nullFlavo Comprehensi 64ee c0fd-1 [facility] 21:00:00 21:00:00 r ve Heart eca-47eb-b l Care PA 98d-7d8d08 [facility] nn 24bfe9 2013-05-23 2013-05-23 Unknown nullFlavo Comprehensi 639d df4b-d [facility] 21:00:00 21:00:00 r ve Heart 3n7-4nl5-1 l Care PA w03-m233i6 [facility] nn 5b5a56 2013-05-23 2013-05-23 Unknown nullFlavo Comprehensi 4efe 6a06-c Mem[facility] 21:00:00 21:00:00 r ve Heart s21-0a32-2 l Care PA c12-pfe5j2 [facility] nn z43540 2013-05-23 2013-05-23 Unknown nullFlavo Comprehensi b99a d9ea-4 [facility]oria 21:00:00 21:00:00 r ve Heart 9y7-3013-6 l Care PA 903-dc70d5 [facility] nn b7b57d 2013-05-23 2013-05-23 Unknown nullFlavo Comprehensi 517c 6ebc-7 [facility] 21:00:00 21:00:00 r ve Heart r71-6a01-7 l Care PA 3fe-b5bf07 [facility] nn fc7341 2013-05-23 2013-05-23 Unknown nullFlavo Comprehensi f909 b02c-8 [facility] 21:00:00 21:00:00 r ve Heart 1ab-4338-b l Care PA 593-0849b3 [facility] nn 131fcd 2013-05-23 2013-05-23 Unknown nullFlavo Comprehensi 7c01 aa63-e [facility] 21:00:00 21:00:00 r ve Heart 531-4dd4-9 l Care PA 9p6-en41jq [facility] nn 5cd09e 2013-05-23 2013-05-23 Unknown nullFlavo Comprehensi 2222 9101-6 Mem[facility] 21:00:00 21:00:00 r ve Heart 58d-4634-8 l Care PA 64d-636eb6 [facility]lee nn 2i2704 2013-05-23 2013-05-23 Unknown nullFlavo Comprehensi 47af 7922-e Mem[facility] 21:00:00 21:00:00 r ve Heart 09c-4d29-8 l Care PA 4ba-02f6ca Haylee nn 67992g 2013-05-23 2013-05-23 Unknown nullFlavo Comprehensi d925 f505-a [facility] 21:00:00 21:00:00 r ve Heart 84a-4d97-a l Care PA 3be-598ad1 [facility] nn e83ab4 2013-05-23 2013-05-23 Unknown nullFlavo Comprehensi 84d7 7e94-e Memoria 21:00:00 21:00:00 r ve Heart 945-4e5e-8 l Care PA cf6-6740d9 [facility] nn a3a9b0 2013-05-23 2013-05-23 Unknown nullFlavo Comprehensi 7d40 a3de-f [facility] 21:00:00 21:00:00 r ve Heart 374-4a9f-b l Care PA l1p-qx921y [facility] nn ee5f15 2013-05-23 2013-05-23 Unknown nullFlavo Comprehensi 4efe 6a06-c Mem[facility] 21:00:00 21:00:00 r ve Heart a26-0g59-0 l Care PA o54-rwm0p1 [facility] nn v72007 2013-05-23 2013-05-23 Unknown nullFlavo Comprehensi b99a d9ea-4 [facility]oria 21:00:00 21:00:00 r ve Heart 7l2-9769-9 l Care PA 903-dc70d5 [facility]lee nn b7b57d 2013-05-23 2013-05-23 Unknown nullFlavo Comprehensi 64ee c0fd-1 [facility] 21:00:00 21:00:00 r ve Heart eca-47eb-b l Care PA 98d-7d8d08 [facility] nn 24bfe9 2013-05-23 2013-05-23 Unknown nullFlavo Comprehensi 639d df4b-d [facility] 21:00:00 21:00:00 r ve Heart 4c0-4if5-6 l Care PA t62-o274t4 [facility] nn 5b5a56 2013-05-23 2013-05-23 Unknown nullFlavo Comprehensi 47af 7922-e [facility] 21:00:00 21:00:00 r ve Heart 09c-4d29-8 l Care PA 4ba-02f6ca Haylee nn 05576l 2013-05-23 2013-05-23 Unknown nullFlavo Comprehensi 517c 6ebc-7 Mem[facility] 21:00:00 21:00:00 r ve Heart u12-0g68-2 l Care PA 3fe-b5bf07 [facility] nn iy7082 2013-05-23 2013-05-23 Unknown nullFlavo Comprehensi f909 b02c-8 Mem[facility] 21:00:00 21:00:00 r ve Heart 1ab-4338-b l Care PA 593-0849b3 [facility] nn 131fcd 2013-05-23 2013-05-23 Unknown nullFlavo Comprehensi 84d7 7e94-e Memoria 21:00:00 21:00:00 r ve Heart 945-4e5e-8 l Care PA cf6-6740d9 [facility] nn a3a9b0 2013-05-23 2013-05-23 Unknown nullFlavo Comprehensi d925 f505-a [facility] 21:00:00 21:00:00 r ve Heart 84a-4d97-a l Care PA 3be-598ad1 [facility] nn e83ab4 2013-05-23 2013-05-23 Unknown nullFlavo Comprehensi 7c01 aa63-e Memoria 21:00:00 21:00:00 r ve Heart 531-4dd4-9 l Care PA 2p8-xi67bj [facility] nn 5cd09e 2013-05-23 2013-05-23 Unknown nullFlavo Comprehensi 2222 9101-6 Memoria 21:00:00 21:00:00 r ve Heart 58d-4634-8 l Care PA 64d-636eb6 [facility] nn 5z8007 2013-05-23 2013-05-23 Unknown nullFlavo Comprehensi 7d40 a3de-f [facility] 21:00:00 21:00:00 r ve Heart 374-4a9f-b l Care PA y9m-zx607g [facility] nn ee5f15 2013-05-23 2013-05-23 Unknown nullFlavo Comprehensi 4efe 6a06-c [facility] 21:00:00 21:00:00 r ve Heart a71-3k05-5 l Care PA o97-swv9r4 [facility] nn b40669 2013-05-23 2013-05-23 Unknown nullFlavo Comprehensi b99a d9ea-4 [facility]oria 21:00:00 21:00:00 r ve Heart 9a9-4821-1 l Care PA 903-dc70d5 [facility]lee nn b7b57d 2013-05-23 2013-05-23 Unknown nullFlavo Comprehensi 64ee c0fd-1 [facility] 21:00:00 21:00:00 r ve Heart eca-47eb-b l Care PA 98d-7d8d08 [facility] nn 24bfe9 2013-05-23 2013-05-23 Unknown nullFlavo Comprehensi 639d df4b-d Mem[facility] 21:00:00 21:00:00 r ve Heart 9l6-5ji5-5 l Care PA g25-n478d4 [facility] nn 5b5a56 2013-05-23 2013-05-23 Unknown nullFlavo Comprehensi 47af 7922-e [facility] 21:00:00 21:00:00 r ve Heart 09c-4d29-8 l Care PA 4ba-02f6ca Haylee nn 82938q 2013-05-23 2013-05-23 Unknown nullFlavo Comprehensi 517c 6ebc-7 Mem[facility] 21:00:00 21:00:00 r ve Heart e08-7b64-8 l Care PA 3fe-b5bf07 [facility]lee nn mc2616 2013-05-23 2013-05-23 Unknown nullFlavo Comprehensi f909 b02c-8 [facility] 21:00:00 21:00:00 r ve Heart 1ab-4338-b l Care PA 593-0849b3 [facility] nn 131fcd 2013-05-23 2013-05-23 Unknown nullFlavo Comprehensi 84d7 7e94-e Memoria 21:00:00 21:00:00 r ve Heart 945-4e5e-8 l Care PA cf6-6740d9 [facility] nn a3a9b0 2013-05-23 2013-05-23 Unknown nullFlavo Comprehensi d925 f505-a [facility] 21:00:00 21:00:00 r ve Heart 84a-4d97-a l Care PA 3be-598ad1 [facility]lee nn e83ab4 2013-05-23 2013-05-23 Unknown nullFlavo Comprehensi 7c01 aa63-e Mem[facility] 21:00:00 21:00:00 r ve Heart 531-4dd4-9 l Care PA 9g7-zr73mq [facility]lee nn 5cd09e 2013-05-23 2013-05-23 Unknown nullFlavo Comprehensi 2222 9101-6 Memoria 21:00:00 21:00:00 r ve Heart 58d-4634-8 l Care PA 64d-636eb6 [facility]lee nn 3x6469 2013-05-23 2013-05-23 Unknown nullFlavo Comprehensi b004 251c-6 [facility] 20:00:00 20:00:00 r ve Heart s4y-1x82-t l Care PA ff6-66a86b [facility] nn 3c4608 2013-05-23 2013-05-23 Unknown nullFlavo Comprehensi 0b8c 4427-5 [facility] 20:00:00 20:00:00 r ve Heart 85d-449f-8 l Care PA 49a-8ae07a [facility]lee nn 38accb 2013-05-23 2013-05-23 Unknown nullFlavo Comprehensi 9074 f5f1-6 [facility] 20:00:00 20:00:00 r ve Heart ec1-4d1d-8 l Care PA 4q0-o7377k [facility] nn o5564l 2013-05-23 2013-05-23 Unknown nullFlavo Comprehensi f321 8c3a-c Memoria 20:00:00 20:00:00 r ve Heart 709-458a-a l Care PA 6p3-t041w6 Haylee nn 8761f4 2013-05-23 2013-05-23 Unknown nullFlavo Comprehensi b0eb 95c3-e [facility] 20:00:00 20:00:00 r ve Heart 5r4-32u0-1 l Care PA 250-b162dd [facility]lee nn 6zp594 2013-05-23 2013-05-23 Unknown nullFlavo Comprehensi 61a8 a49f-4 [facility] 20:00:00 20:00:00 r ve Heart 8fd-4a07-b l Care PA 5p0-609210 [facility] nn 569cde 2013-05-23 2013-05-23 Unknown nullFlavo Comprehensi 2c72 e082-6 [facility] 20:00:00 20:00:00 r ve Heart ed3-4b5c-8 l Care PA j17-w52538 [facility] nn 234247 3213-09-10 2013-05-23 Unknown nullFlavo Comprehensi be5f 33c6-d [facility] 20:00:00 20:00:00 r ve Heart ea1-4233-b l Care PA 0x2-9s8f3r [facility] nn 37u549 2013-05-23 2013-05-23 Unknown nullFlavo Comprehensi 2a83 7c33-a [facility] 20:00:00 20:00:00 r ve Heart o5j-3h3e-1 l Care PA 77f-[id number] [facility] nn [id number] 2013-05-23 2013-05-23 Unknown nullFlavo Comprehensi 0556 2db3-5 [facility] 20:00:00 20:00:00 r ve Heart 38b-4faf-b l Care PA [id number] [facility] nn [id number] 2013-05-23 2013-05-23 Unknown nullFlavo Comprehensi 4a57 c411-6 [facility] 20:00:00 20:00:00 r ve Heart p23-9680-x l Care PA [id number] [facility] nn [id number] 2013-05-23 2013-05-23 Unknown nullFlavo Comprehensi 4a16 def2-b [facility] 20:00:00 20:00:00 r ve Heart 0i6-754d-9 l Care PA [id number]-uh079t [facility] nn [id number] 2013-05-23 2013-05-23 Unknown nullFlavo Comprehensi 77a2 8a26-8 [facility] 20:00:00 20:00:00 r ve Heart z23-0921-2 l Care PA [id number] Haylee nn [id number] 2013-05-23 2013-05-23 Unknown nullFlavo Comprehensi 7464 e14b-5 [facility] 20:00:00 20:00:00 r ve Heart 03a-454b-8 l Care PA [id number] Haylee nn [id number] 2013-05-23 2013-05-23 Unknown nullFlavo Comprehensi 412a 14c0-f [facility] 20:00:00 20:00:00 r ve Heart 6n3-1917-8 l Care PA [id number] Haylee nn [id number] 1865-09-10 2013-05-23 Unknown nullFlavo Comprehensi 0a74 962b-b [facility] 20:00:00 20:00:00 r ve Heart 0ee-4033-9 l Care PA 395-2d9a4d Haylee nn ae18e3 2013-05-23 2013-05-23 Unknown nullFlavo Comprehensi 48f6 66ce-a [facility] 20:00:00 20:00:00 r ve Heart i98-53uk-1 l Care PA 588-b061dd Haylee nn 78a7d0 2013-05-23 2013-05-23 Unknown nullFlavo Comprehensi 9fd5 6f6c-5 [facility] 20:00:00 20:00:00 r ve Heart 824-4352-9 l Care PA 413-b80ce1 Haylee nn 0ff2f5 2013-05-23 2013-05-23 Unknown nullFlavo Comprehensi f321 8c3a-c [facility] 20:00:00 20:00:00 r ve Heart 709-458a-a l Care PA [id number]-c231z8 Haylee nn [id number] 2013-05-23 2013-05-23 Unknown nullFlavo Comprehensi 2a83 7c33-a [facility] 20:00:00 20:00:00 r ve Heart v2d-8m0y-9 l Care PA [id number]-812dd1 Haylee nn [id number] 2013-05-23 2013-05-23 Unknown nullFlavo Comprehensi b004 251c-6 [facility] 20:00:00 20:00:00 r ve Heart s1s-4z25-b l Care PA [id number] Haylee nn [id number] 2013-05-23 2013-05-23 Unknown nullFlavo Comprehensi 0b8c 4427-5 [facility] 20:00:00 20:00:00 r ve Heart 85d-449f-8 l Care PA 49a-8ae07a [facility] nn 38accb 2013-05-23 2013-05-23 Unknown nullFlavo Comprehensi be5f 33c6-d [facility] 20:00:00 20:00:00 r ve Heart ea1-4233-b l Care PA 4k1-8k4n0i [facility] nn [id number] 2013-05-23 2013-05-23 Unknown nullFlavo Comprehensi b0eb 95c3-e [facility] 20:00:00 20:00:00 r ve Heart 5m4-71s3-0 l Care PA 250-b162dd [facility] nn [id number] 2013-05-23 2013-05-23 Unknown nullFlavo Comprehensi 2c72 e082-6 [facility] 20:00:00 20:00:00 r ve Heart ed3-4b5c-8 l Care PA [id number] [facility] nn [id number] 0568-09-10 2013-05-23 Unknown nullFlavo Comprehensi 77a2 8a26-8 [facility] 20:00:00 20:00:00 r ve Heart g47-5053-9 l Care PA 0n1-580dn0 [facility] nn [id number] 2013-05-23 2013-05-23 Unknown nullFlavo Comprehensi 61a8 a49f-4 [facility] 20:00:00 20:00:00 r ve Heart 8fd-4a07-b l Care PA [id number] [facility] nn [id number] 2013-05-23 2013-05-23 Unknown nullFlavo Comprehensi 7464 e14b-5 [facility] 20:00:00 20:00:00 r ve Heart 03a-454b-8 l Care PA [id number] [facility] nn [id number] 2013-05-23 2013-05-23 Unknown nullFlavo Comprehensi 4a16 def2-b [facility] 20:00:00 20:00:00 r ve Heart 0r4-842u-0 l Care PA [id number]-nb974l [facility] nn d4f1cf 2013-05-23 2013-05-23 Unknown nullFlavo Comprehensi 4a57 c411-6 [facility] 20:00:00 20:00:00 r ve Heart f12-3115-q l Care PA 629-a88bf5 [facility]lee nn [id number] 2013-05-23 2013-05-23 Unknown nullFlavo Comprehensi 9074 f5f1-6 [facility] 20:00:00 20:00:00 r ve Heart ec1-4d1d-8 l Care PA 7o2-i5861r Haylee nn [id number] 2013-05-23 2013-05-23 Unknown nullFlavo Comprehensi 0a74 962b-b [facility] 20:00:00 20:00:00 r ve Heart 0ee-4033-9 l Care PA 395-2d9a4d Haylee nn ae18e3 2013-05-23 2013-05-23 Unknown nullFlavo Comprehensi 0556 2db3-5 [facility] 20:00:00 20:00:00 r ve Heart 38b-4faf-b l Care PA 47c-9kt772 Haylee nn [id number] 2013-05-23 2013-05-23 Unknown nullFlavo Comprehensi 412a 14c0-f [facility] 20:00:00 20:00:00 r ve Heart 2c0-4777-9 l Care PA 025-8b0b29 Haylee nn [id number] 0142-09-10 2013-05-23 Unknown nullFlavo Comprehensi 48f6 66ce-a [facility] 20:00:00 20:00:00 r ve Heart j26-54jb-3 l Care PA 588-b061dd Haylee nn 78a7d0 2013-05-23 2013-05-23 Unknown nullFlavo Comprehensi 9fd5 6f6c-5 [facility] 20:00:00 20:00:00 r ve Heart 824-4352-9 l Care PA 413-b80ce1 Haylee nn 0ff2f5 2013-05-23 2013-05-23 Unknown nullFlavo Comprehensi f321 8c3a-c [facility] 20:00:00 20:00:00 r ve Heart 709-458a-a l Care PA 0y5-h526n7 Haylee nn [id number] 2013-05-23 2013-05-23 Unknown nullFlavo Comprehensi 2a83 7c33-a [facility] 20:00:00 20:00:00 r ve Heart j4r-2r6m-3 l Care PA 77f-812dd1 [facility] nn [id number] 2013-05-23 2013-05-23 Unknown nullFlavo Comprehensi b004 251c-6 [facility] 20:00:00 20:00:00 r ve Heart y4n-2k12-s l Care PA ff6-66a86b [facility] nn [id number] 2013-05-23 2013-05-23 Unknown nullFlavo Comprehensi 0b8c 4427-5 [facility] 20:00:00 20:00:00 r ve Heart 85d-449f-8 l Care PA 49a-8ae07a [facility] nn 38accb 2013-05-23 2013-05-23 Unknown nullFlavo Comprehensi be5f 33c6-d [facility]oria 20:00:00 20:00:00 r ve Heart ea1-4233-b l Care PA 1u4-6p6q8l [facility] nn 19b955 2013-05-23 2013-05-23 Unknown nullFlavo Comprehensi b0eb 95c3-e [facility]oria 20:00:00 20:00:00 r ve Heart 9q6-64j9-8 l Care PA 250-b162dd [facility] nn 2lw879 2013-05-23 2013-05-23 Unknown nullFlavo Comprehensi 2c72 e082-6 Memoria 20:00:00 20:00:00 r ve Heart ed3-4b5c-8 l Care PA y04-a62209 [facility] nn 484339 7157-09-10 2013-05-23 Unknown nullFlavo Comprehensi 77a2 8a26-8 [facility]oria 20:00:00 20:00:00 r ve Heart a48-0115-6 l Care PA 1n0-883cf6 [facility] nn 1d01c1 2013-05-23 2013-05-23 Unknown nullFlavo Comprehensi 61a8 a49f-4 Memoria 20:00:00 20:00:00 r ve Heart 8fd-4a07-b l Care PA 2j1-683189 [facility] nn 569cde 2013-05-23 2013-05-23 Unknown nullFlavo Comprehensi 7464 e14b-5 Memoria 20:00:00 20:00:00 r ve Heart 03a-454b-8 l Care PA db8-41b50e [facility] nn 4tk432 2013-05-23 2013-05-23 Unknown nullFlavo Comprehensi 4a16 def2-b [facility] 20:00:00 20:00:00 r ve Heart 1j4-037e-1 l Care PA 3r5-rj066o [facility] nn d4f1cf 2013-05-23 2013-05-23 Unknown nullFlavo Comprehensi 4a57 c411-6 [facility] 20:00:00 20:00:00 r ve Heart i58-9021-k l Care PA 629-a88bf5 [facility] nn 185f5a 2013-05-23 2013-05-23 Unknown nullFlavo Comprehensi 9074 f5f1-6 [facility] 20:00:00 20:00:00 r ve Heart ec1-4d1d-8 l Care PA 9e5-y7726t [facility] nn q1761m 2013-05-23 2013-05-23 Unknown nullFlavo Comprehensi 0a74 962b-b [facility] 20:00:00 20:00:00 r ve Heart 0ee-4033-9 l Care PA 395-2d9a4d [facility] nn ae18e3 2013-05-23 2013-05-23 Unknown nullFlavo Comprehensi 0556 2db3-5 [facility] 20:00:00 20:00:00 r ve Heart 38b-4faf-b l Care PA 47c-5er896 [facility] nn rb979s 2013-05-23 2013-05-23 Unknown nullFlavo Comprehensi 412a 14c0-f [facility] 20:00:00 20:00:00 r ve Heart 4k3-4804-4 l Care PA 025-8b0b29 [facility] nn 516507 5312-09-10 2013-05-23 Unknown nullFlavo Comprehensi 48f6 66ce-a [facility] 20:00:00 20:00:00 r ve Heart i76-41mw-3 l Care PA 588-b061dd [facility] nn 78a7d0 2013-05-23 2013-05-23 Unknown nullFlavo Comprehensi 9fd5 6f6c-5 [facility] 20:00:00 20:00:00 r ve Heart 824-4352-9 l Care PA 413-b80ce1 [facility] nn 0ff2f5 2013-05-23 2013-05-23 Outpatient Comprehen Comprehensi 2 97900 [facility]inic 15:00[facility]00 [facility]:00[facility] 2013-05-23 2013-05-23 Outpatient Comprehen Comprehensi 2 70679 eClinic 15:00:00 15:00:[facility] PA 2013-02-23 2013-02-23 Unknown nullFlavo Comprehensi ab98 702d-0 Memoria 20:01:00 20:01:00 r ve Heart 9x8-27zo-6 l Care PA 80f-7440b9 [facility] nn a99f6d 2013-02-23 2013-02-23 Unknown nullFlavo Comprehensi 318a 68f6-1 [facility] 20:01:00 20:01:00 r ve Heart w7g-2w2e-3 l Care PA 2s5-123c5r [facility] nn 4jo288 2013-02-23 2013-02-23 Unknown nullFlavo Comprehensi f2a6 cfb5-4 [facility]oria 20:01:00 20:01:00 r ve Heart 486-4a4d-8 l Care PA r55-w65176 [facility] nn 79969l 2013-02-23 2013-02-23 Unknown nullFlavo Comprehensi 5181 0dbe-5 [facility]oria 20:01:00 20:01:00 r ve Heart 3p0-5311-a l Care PA dd5-af1f52 [facility] nn f18e6b 2013-02-23 2013-02-23 Unknown nullFlavo Comprehensi 3d74 572a-f [facility] 20:01:00 20:01:00 r ve Heart 4v6-9255-3 l Care PA 97c-1c6ac3 [facility] nn 781a81 2013-02-23 2013-02-23 Unknown nullFlavo Comprehensi 0569 69be-a [facility] 20:01:00 20:01:00 r ve Heart 434-421d-8 l Care PA r8o-a35l3o [facility] nn 256662 2523-06-13 2013-02-23 Unknown nullFlavo Comprehensi 849f b105-a [facility] 20:01:00 20:01:00 r ve Heart naveed-4c45-8 l Care PA ea9-14l692 [facility] nn 6fd0c8 2013-02-23 2013-02-23 Unknown nullFlavo Comprehensi c544 fe27-3 Memoria 20:01:00 20:01:00 r ve Heart 1da-4fa2-9 l Care PA o0z-z70190 [facility] nn 87a759 2013-02-23 2013-02-23 Unknown nullFlavo Comprehensi 42a6 b9bf-a [facility]oria 20:01:00 20:01:00 r ve Heart 4l1-518v-2 l Care PA 413-8549cf [facility] nn 64f3ec 2013-02-23 2013-02-23 Unknown nullFlavo Comprehensi 5f00 8fe9-8 Memoria 20:01:00 20:01:00 r ve Heart f57-35z9-3 l Care PA 8q8-5at7vp [facility] nn w0d181 2013-02-23 2013-02-23 Unknown nullFlavo Comprehensi 3ef4 3fbd-4 Memoria 20:01:00 20:01:00 r ve Heart 063-4e7b-9 l Care PA q57-528q31 [facility] nn 59253q 2013-02-23 2013-02-23 Unknown nullFlavo Comprehensi d8e4 5e21-0 [facility]oria 20:01:00 20:01:00 r ve Heart 5j3-5420-l l Care PA 5cd-5cd58c [facility] nn 7d31f8 2013-02-23 2013-02-23 Unknown nullFlavo Comprehensi ab98 702d-0 [facility]oria 20:01:00 20:01:00 r ve Heart 6u3-27qa-5 l Care PA 80f-7440b9 [facility] nn a99f6d 2013-02-23 2013-02-23 Unknown nullFlavo Comprehensi 5181 0dbe-5 [facility] 20:01:00 20:01:00 r ve Heart 1t2-5494-j l Care PA dd5-af1f52 [facility] nn f18e6b 2013-02-23 2013-02-23 Unknown nullFlavo Comprehensi 3d74 572a-f [facility] 20:01:00 20:01:00 r ve Heart 0l7-1287-3 l Care PA 97c-1c6ac3 [facility] nn 781a81 2013-02-23 2013-02-23 Unknown nullFlavo Comprehensi 318a 68f6-1 [facility] 20:01:00 20:01:00 r ve Heart k7k-0n9p-7 l Care PA 9x7-885g3n [facility] nn 9ro978 2013-02-23 2013-02-23 Unknown nullFlavo Comprehensi f2a6 cfb5-4 Memoria 20:01:00 20:01:00 r ve Heart 486-4a4d-8 l Care PA g98-f47170 [facility] nn 51684j 2013-02-23 2013-02-23 Unknown nullFlavo Comprehensi 5f00 8fe9-8 Memoria 20:01:00 20:01:00 r ve Heart o16-06t7-8 l Care PA 2h6-3zk1il [facility] nn w3m376 2013-02-23 2013-02-23 Unknown nullFlavo Comprehensi 0569 69be-a [facility] 20:01:00 20:01:00 r ve Heart 434-421d-8 l Care PA x6z-n79v1e [facility] nn 303953 4358-06-13 2013-02-23 Unknown nullFlavo Comprehensi 849f b105-a Memoria 20:01:00 20:01:00 r ve Heart naveed-4c45-8 l Care PA ea9-33b979 [facility] nn 6fd0c8 2013-02-23 2013-02-23 Unknown nullFlavo Comprehensi d8e4 5e21-0 Memoria 20:01:00 20:01:00 r ve Heart 2r6-4024-j l Care PA 5cd-5cd58c [facility] nn 7d31f8 2013-02-23 2013-02-23 Unknown nullFlavo Comprehensi 3ef4 3fbd-4 Memoria 20:01:00 20:01:00 r ve Heart 063-4e7b-9 l Care PA i99-031d64 [facility]lee nn 89910i 2013-02-23 2013-02-23 Unknown nullFlavo Comprehensi c544 fe27-3 Memoria 20:01:00 20:01:00 r ve Heart 1da-4fa2-9 l Care PA m3u-r84983 [facility] nn 41b240 2013-02-23 2013-02-23 Unknown nullFlavo Comprehensi 42a6 b9bf-a Memoria 20:01:00 20:01:00 r ve Heart 6a5-861g-1 l Care PA 413-8549cf [facility]lee nn 64f3ec 2013-02-23 2013-02-23 Unknown nullFlavo Comprehensi ab98 702d-0 Memoria 20:01:00 20:01:00 r ve Heart 8l1-07tg-6 l Care PA 80f-7440b9 [facility] nn a99f6d 2013-02-23 2013-02-23 Unknown nullFlavo Comprehensi 5181 0dbe-5 Memoria 20:01:00 20:01:00 r ve Heart 7i4-7080-e l Care PA dd5-af1f52 [facility] nn f18e6b 2013-02-23 2013-02-23 Unknown nullFlavo Comprehensi 3d74 572a-f Memoria 20:01:00 20:01:00 r ve Heart 5h6-4199-4 l Care PA 97c-1c6ac3 [facility] nn 781a81 2013-02-23 2013-02-23 Unknown nullFlavo Comprehensi 318a 68f6-1 Memoria 20:01:00 20:01:00 r ve Heart p6j-5j2b-7 l Care PA 0w4-497d0m [facility] nn 0uk490 2013-02-23 2013-02-23 Unknown nullFlavo Comprehensi f2a6 cfb5-4 Memoria 20:01:00 20:01:00 r ve Heart 486-4a4d-8 l Care PA j04-f00898 [facility] nn 49746j 2013-02-23 2013-02-23 Unknown nullFlavo Comprehensi 5f00 8fe9-8 Memoria 20:01:00 20:01:00 r ve Heart o32-56p3-1 l Care PA 9h7-2oa0yy [facility] nn k8v489 2013-02-23 2013-02-23 Unknown nullFlavo Comprehensi 0569 69be-a [facility]oria 20:01:00 20:01:00 r ve Heart 434-421d-8 l Care PA l8f-v64r8v [facility]lee nn 287790 6875-06-13 2013-02-23 Unknown nullFlavo Comprehensi 849f b105-a Memoria 20:01:00 20:01:00 r ve Heart naveed-4c45-8 l Care PA ea9-80s628 [facility] nn 6fd0c8 2013-02-23 2013-02-23 Unknown nullFlavo Comprehensi d8e4 5e21-0 Memoria 20:01:00 20:01:00 r ve Heart 3d2-7532-p l Care PA 5cd-5cd58c [facility] nn 7d31f8 2013-02-23 2013-02-23 Unknown nullFlavo Comprehensi 3ef4 3fbd-4 Memoria 20:01:00 20:01:00 r ve Heart 063-4e7b-9 l Care PA q67-748c09 [facility]lee nn 10574t 2013-02-23 2013-02-23 Unknown nullFlavo Comprehensi c544 fe27-3 Memoria 20:01:00 20:01:00 r ve Heart 1da-4fa2-9 l Care PA a8y-h08338 [facility] nn 03z552 2013-02-23 2013-02-23 Unknown nullFlavo Comprehensi 42a6 b9bf-a Memoria 20:01:00 20:01:00 r ve Heart 0c0-513r-2 l Care PA 413-8549cf [facility] nn 64f3ec 2013-02-23 2013-02-23 Unknown nullFlavo Comprehensi 5b8a 360b-b Memoria 19:01:00 19:01:00 r ve Heart 401-4ee0-9 l Care PA e10-702769 [facility] nn ce88dd 2013-02-23 2013-02-23 Unknown nullFlavo Comprehensi 9715 42f2-7 Memoria 19:01:00 19:01:00 r ve Heart 387-43b4-a l Care PA fd5-576674 [facility]lee nn 17o792 2013-02-23 2013-02-23 Unknown nullFlavo Comprehensi d155 6317-c Memoria 19:01:00 19:01:00 r ve Heart ec5-438e-b l Care PA fa0-4a3bc0 [facility] nn 0bc9e4 2013-02-23 2013-02-23 Unknown nullFlavo Comprehensi 0c06 9664-f Memoria 19:01:00 19:01:00 r ve Heart ccc-4a8f-8 l Care PA 516-f93aac [facility]lee nn 130ad8 2013-02-23 2013-02-23 Unknown nullFlavo Comprehensi f8ed 76ca-4 Memoria 19:01:00 19:01:00 r ve Heart x37-6xu0-1 l Care PA 11b-c07cca [facility]lee nn 11y698 2013-02-23 2013-02-23 Unknown nullFlavo Comprehensi 0f66 ab56-5 Memoria 19:01:00 19:01:00 r ve Heart 9de-4a5c-a l Care PA 0db-cbf5b1 [facility] nn j4247q 2013-02-23 2013-02-23 Unknown nullFlavo Comprehensi 6aed c802-9 Memoria 19:01:00 19:01:00 r ve Heart bdb-4262-8 l Care PA 618-f46c4c [facility] nn 6a64cd 2013-02-23 2013-02-23 Unknown nullFlavo Comprehensi 0b87 ebf6-8 Memoria 19:01:00 19:01:00 r ve Heart 0z3-755r-6 l Care PA 7d0-651tm2 [facility]lee nn q8569f 2013-02-23 2013-02-23 Unknown nullFlavo Comprehensi e61f c7d6-9 Memoria 19:01:00 19:01:00 r ve Heart s8j-8190-2 l Care PA ae5-349b12 [facility]lee nn fc9c1b 2013-02-23 2013-02-23 Unknown nullFlavo Comprehensi dd2f f0ec-9 Memoria 19:01:00 19:01:00 r ve Heart 0z8-8614-j l Care PA s34-905f93 [facility]lee nn ccd4ce 2013-02-23 2013-02-23 Unknown nullFlavo Comprehensi 955f c9b7-f Memoria 19:01:00 19:01:00 r ve Heart 569-4b47-9 l Care PA y50-u17843 [facility]lee nn 1b8c0d 2013-02-23 2013-02-23 Unknown nullFlavo Comprehensi 129a 917a-2 Memoria 19:01:00 19:01:00 r ve Heart 5n9-0s06-j l Care PA 3db-bccce7 [facility] nn a1eb51 2013-02-23 2013-02-23 Unknown nullFlavo Comprehensi c7f1 d869-6 Memoria 19:01:00 19:01:00 r ve Heart 647-4ee7-a l Care PA 48a-23304g [facility]lee nn 3677bd 2013-02-23 2013-02-23 Unknown nullFlavo Comprehensi d1a7 05dd-4 Memoria 19:01:00 19:01:00 r ve Heart 545-42d6-a l Care PA cc2-e7c50d [facility] nn 683f97 2013-02-23 2013-02-23 Unknown nullFlavo Comprehensi 8c90 d15c-0 Memoria 19:01:00 19:01:00 r ve Heart s53-18o0-p l Care PA 3ad-jf235i [facility]lee nn 3936bd 2013-02-23 2013-02-23 Unknown nullFlavo Comprehensi 5f72 f37c-b Memoria 19:01:00 19:01:00 r ve Heart 5ef-4f08-b l Care PA 122-560940 Haylee nn d1b16d 2013-02-23 2013-02-23 Unknown nullFlavo Comprehensi 74d3 51c5-1 Memoria 19:01:00 19:01:00 r ve Heart cb4-4783-8 l Care PA fa5-b79fde [facility]lee nn 95afa3 2013-02-23 2013-02-23 Unknown nullFlavo Comprehensi 7cee 5bb0-d Memoria 19:01:00 19:01:00 r ve Heart y5d-25w0-3 l Care PA acb-e02bc1 [facility]lee nn x7875x 2013-02-23 2013-02-23 Unknown nullFlavo Comprehensi 7c65 5c22-9 Memoria 19:01:00 19:01:00 r ve Heart bc4-431d-b l Care PA 58a-92f44e [facility]lee nn 2e84c8 2013-02-23 2013-02-23 Unknown nullFlavo Comprehensi 42a6 09db-6 Memoria 19:01:00 19:01:00 r ve Heart 387-4155-8 l Care PA i58-hzlcdi [facility]lee nn a604c9 2013-02-23 2013-02-23 Unknown nullFlavo Comprehensi 15a3 0a57-4 Memoria 19:01:00 19:01:00 r ve Heart 034-4848-9 l Care PA 4g8-yo817f Haylee nn 0c25ec 2013-02-23 2013-02-23 Unknown nullFlavo Comprehensi b6eb 05f6-c Memoria 19:01:00 19:01:00 r ve Heart 79a-45dc-9 l Care PA n00-1y9228 Haylee nn 5o5192 2013-02-23 2013-02-23 Unknown nullFlavo Comprehensi 5b8a 360b-b Memoria 19:01:00 19:01:00 r ve Heart 401-4ee0-9 l Care PA d15-910383 Haylee nn ce88dd 2013-02-23 2013-02-23 Unknown nullFlavo Comprehensi 9715 42f2-7 Memoria 19:01:00 19:01:00 r ve Heart 387-43b4-a l Care PA fd5-327441 Haylee nn 68b960 2013-02-23 2013-02-23 Unknown nullFlavo Comprehensi d155 6317-c Memoria 19:01:00 19:01:00 r ve Heart ec5-438e-b l Care PA fa0-4a3bc0 [facility]lee nn 0bc9e4 2013-02-23 2013-02-23 Unknown nullFlavo Comprehensi 0c06 9664-f Memoria 19:01:00 19:01:00 r ve Heart ccc-4a8f-8 l Care PA 516-f93aac Haylee nn 130ad8 2013-02-23 2013-02-23 Unknown nullFlavo Comprehensi 0b87 ebf6-8 Memoria 19:01:00 19:01:00 r ve Heart 6i1-925a-2 l Care PA 1m5-499zh7 Haylee nn a2027g 2013-02-23 2013-02-23 Unknown nullFlavo Comprehensi c7f1 d869-6 Memoria 19:01:00 19:01:00 r ve Heart 647-4ee7-a l Care PA 48a-16220z Haylee nn 3677bd 2013-02-23 2013-02-23 Unknown nullFlavo Comprehensi f8ed 76ca-4 Memoria 19:01:00 19:01:00 r ve Heart g42-8az8-9 l Care PA 11b-c07cca [facility]lee nn 26y609 2013-02-23 2013-02-23 Unknown nullFlavo Comprehensi 0f66 ab56-5 Memoria 19:01:00 19:01:00 r ve Heart 9de-4a5c-a l Care PA 0db-cbf5b1 [facility]lee nn t3600f 2013-02-23 2013-02-23 Unknown nullFlavo Comprehensi 129a 917a-2 Memoria 19:01:00 19:01:00 r ve Heart 4n0-2a74-m l Care PA 3db-bccce7 [facility]lee nn a1eb51 2013-02-23 2013-02-23 Unknown nullFlavo Comprehensi e61f c7d6-9 Memoria 19:01:00 19:01:00 r ve Heart j5c-4691-6 l Care PA ae5-349b12 [facility]lee nn fc9c1b 2013-02-23 2013-02-23 Unknown nullFlavo Comprehensi 955f c9b7-f Memoria 19:01:00 19:01:00 r ve Heart 569-4b47-9 l Care PA x92-z46467 [facility]lee nn 1b8c0d 2013-02-23 2013-02-23 Unknown nullFlavo Comprehensi 74d3 51c5-1 [facility]oria 19:01:00 19:01:00 r ve Heart cb4-4783-8 l Care PA fa5-b79fde [facility]lee nn 95afa3 2013-02-23 2013-02-23 Unknown nullFlavo Comprehensi dd2f f0ec-9 Memoria 19:01:00 19:01:00 r ve Heart 6u5-9042-p l Care PA w73-776c90 [facility]lee nn ccd4ce 2013-02-23 2013-02-23 Unknown nullFlavo Comprehensi 7cee 5bb0-d Memoria 19:01:00 19:01:00 r ve Heart o5j-64u2-5 l Care PA acb-e02bc1 [facility] nn z8552n 2013-02-23 2013-02-23 Unknown nullFlavo Comprehensi 5f72 f37c-b [facility]oria 19:01:00 19:01:00 r ve Heart 5ef-4f08-b l Care PA 122-311655 Haylee nn d1b16d 2013-02-23 2013-02-23 Unknown nullFlavo Comprehensi 8c90 d15c-0 Memoria 19:01:00 19:01:00 r ve Heart s66-10g2-u l Care PA 3ad-ue306b [facility]lee nn 3936bd 2013-02-23 2013-02-23 Unknown nullFlavo Comprehensi 6aed c802-9 Memoria 19:01:00 19:01:00 r ve Heart bdb-4262-8 l Care PA 618-f46c4c [facility]lee nn 6a64cd 2013-02-23 2013-02-23 Unknown nullFlavo Comprehensi 42a6 09db-6 Memoria 19:01:00 19:01:00 r ve Heart 387-4155-8 l Care PA z10-plkeou [facility]lee nn a604c9 2013-02-23 2013-02-23 Unknown nullFlavo Comprehensi d1a7 05dd-4 Memoria 19:01:00 19:01:00 r ve Heart 545-42d6-a l Care PA cc2-e7c50d [facility]lee nn 683f97 2013-02-23 2013-02-23 Unknown nullFlavo Comprehensi 7c65 5c22-9 Memoria 19:01:00 19:01:00 r ve Heart bc4-431d-b l Care PA 58a-92f44e [facility]lee nn 2e84c8 2013-02-23 2013-02-23 Unknown nullFlavo Comprehensi 15a3 0a57-4 Memoria 19:01:00 19:01:00 r ve Heart 034-4848-9 l Care PA 2k9-nx869o Haylee nn 0c25ec 2013-02-23 2013-02-23 Unknown nullFlavo Comprehensi b6eb 05f6-c Memoria 19:01:00 19:01:00 r ve Heart 79a-45dc-9 l Care PA w46-1r3375 [facility]lee nn 9w8445 2013-02-23 2013-02-23 Unknown nullFlavo Comprehensi 5b8a 360b-b Memoria 19:01:00 19:01:00 r ve Heart 401-4ee0-9 l Care PA i57-686100 [facility]lee nn ce88dd 2013-02-23 2013-02-23 Unknown nullFlavo Comprehensi 9715 42f2-7 Memoria 19:01:00 19:01:00 r ve Heart 387-43b4-a l Care PA fd5-041829 [facility] nn 14e596 2013-02-23 2013-02-23 Unknown nullFlavo Comprehensi d155 6317-c Memoria 19:01:00 19:01:00 r ve Heart ec5-438e-b l Care PA fa0-4a3bc0 [facility] nn 0bc9e4 2013-02-23 2013-02-23 Unknown nullFlavo Comprehensi 0c06 9664-f Memoria 19:01:00 19:01:00 r ve Heart ccc-4a8f-8 l Care PA 516-f93aac Haylee nn 130ad8 2013-02-23 2013-02-23 Unknown nullFlavo Comprehensi 0b87 ebf6-8 Memoria 19:01:00 19:01:00 r ve Heart 4o4-278l-7 l Care PA 0r4-868rv3 [facility] nn z5278j 2013-02-23 2013-02-23 Unknown nullFlavo Comprehensi c7f1 d869-6 Memoria 19:01:00 19:01:00 r ve Heart 647-4ee7-a l Care PA 48a-07062h Haylee nn 3677bd 2013-02-23 2013-02-23 Unknown nullFlavo Comprehensi f8ed 76ca-4 Memoria 19:01:00 19:01:00 r ve Heart k63-6cg6-7 l Care PA 11b-c07cca Haylee nn 12m854 2013-02-23 2013-02-23 Unknown nullFlavo Comprehensi 0f66 ab56-5 Memoria 19:01:00 19:01:00 r ve Heart 9de-4a5c-a l Care PA 0db-cbf5b1 [facility]lee nn w7899l 2013-02-23 2013-02-23 Unknown nullFlavo Comprehensi 129a 917a-2 Memoria 19:01:00 19:01:00 r ve Heart 7f0-8w90-u l Care PA 3db-bccce7 [facility]lee nn a1eb51 2013-02-23 2013-02-23 Unknown nullFlavo Comprehensi e61f c7d6-9 Memoria 19:01:00 19:01:00 r ve Heart g1d-9350-5 l Care PA ae5-349b12 Haylee nn fc9c1b 2013-02-23 2013-02-23 Unknown nullFlavo Comprehensi 955f c9b7-f Memoria 19:01:00 19:01:00 r ve Heart 569-4b47-9 l Care PA z19-g13879 Haylee nn 1b8c0d 2013-02-23 2013-02-23 Unknown nullFlavo Comprehensi 74d3 51c5-1 [facility] 19:01:00 19:01:00 r ve Heart cb4-4783-8 l Care PA fa5-b79fde [facility] nn 95afa3 2013-02-23 2013-02-23 Unknown nullFlavo Comprehensi dd2f f0ec-9 Memoria 19:01:00 19:01:00 r ve Heart 1o7-2193-t l Care PA w81-149d37 [facility] nn ccd4ce 2013-02-23 2013-02-23 Unknown nullFlavo Comprehensi 7cee 5bb0-d Memoria 19:01:00 19:01:00 r ve Heart y5y-72n1-9 l Care PA acb-e02bc1 Haylee nn w5152s 2013-02-23 2013-02-23 Unknown nullFlavo Comprehensi 5f72 f37c-b Memoria 19:01:00 19:01:00 r ve Heart 5ef-4f08-b l Care PA 122-967168 Haylee nn d1b16d 2013-02-23 2013-02-23 Unknown nullFlavo Comprehensi 8c90 d15c-0 Memoria 19:01:00 19:01:00 r ve Heart w25-99f5-g l Care PA 3ad-he092n [facility] nn 3936bd 2013-02-23 2013-02-23 Unknown nullFlavo Comprehensi 6aed c802-9 Memoria 19:01:00 19:01:00 r ve Heart bdb-4262-8 l Care PA 618-f46c4c [facility] nn 6a64cd 2013-02-23 2013-02-23 Unknown nullFlavo Comprehensi 42a6 09db-6 Memoria 19:01:00 19:01:00 r ve Heart 387-4155-8 l Care PA a50-bkvipa [facility] nn a604c9 2013-02-23 2013-02-23 Unknown nullFlavo Comprehensi d1a7 05dd-4 Memoria 19:01:00 19:01:00 r ve Heart 545-42d6-a l Care PA cc2-e7c50d [facility] nn 683f97 2013-02-23 2013-02-23 Unknown nullFlavo Comprehensi 7c65 5c22-9 Memoria 19:01:00 19:01:00 r ve Heart bc4-431d-b l Care PA 58a-92f44e [facility] 2e84c8 2013-02-23 2013-02-23 Unknown nullFlavo Comprehensi 15a3 0a57-4 Memoria 19:01:00 19:01:00 r ve Heart 034-4848-9 l Care PA 1c0-sf960v [facility] nn 0c25ec 2013-02-23 2013-02-23 Unknown nullFlavo Comprehensi b6eb 05f6-c Memoria 19:01:00 19:01:00 r ve Heart 79a-45dc-9 l Care PA r94-9w6142 [facility] 5n7073 2013-02-23 2013-02-23 Outpatient Comprehen Comprehensi 2 11211 [facility]Clinic 14:01:00 14:01:00 sive ve Heart alWor tn Heart Care PA Care PA 2013-02-23 2013-02-23 Outpatient Comprehen Comprehensi 2 77371 [facility]Clinic 14:01:00 14:01:00 sive ve Heart alWor tn Heart Care PA Care PA 2013-02-22 2013-02-22 Unknown nullFlavo Comprehensi ccdb 944d-8 Memoria 21:00:00 21:00:00 r ve Heart 4ec-48dd-9 l Care PA s86-sq87wk [facility]lee nn b140ff 2013-02-22 2013-02-22 Unknown nullFlavo Comprehensi 4a61 730e-7 Memoria 21:00:00 21:00:00 r ve Heart 977-4b7e-9 l Care PA v6p-xt9c33 [facility]lee nn kau031 2013-02-22 2013-02-22 Unknown nullFlavo Comprehensi 9d0e 5329-6 Mem[facility] 21:00:00 21:00:00 r ve Heart 405-4146-a l Care PA ac3-0805bd [facility]lee nn 5a3bfa 2013-02-22 2013-02-22 Unknown nullFlavo Comprehensi 35ed 9506-1 [facility] 21:00:00 21:00:00 [facility] ve Heart 263-4151-b l Care PA [id number] Haylee nn [id number] 2013-02-22 2013-02-22 Unknown nullFlavo Comprehensi 3dc0 1820-8 [facility] 21:00:00 21:00:00 r ve Heart 239-4409-b l Care PA [id number]-a3e5a2 Haylee nn [id number] 6590-06-12 2013-02-22 Unknown nullFlavo Comprehensi 85f3 69ec-1 [facility] 21:00:00 21:00:00 r ve Heart 361-47aa-b l Care PA [id number] Haylee nn 9ca7e1 2013-02-22 2013-02-22 Unknown nullFlavo Comprehensi 55f1 e8f1-4 [facility] 21:00:00 21:00:00 r ve Heart p81-6x72-y l Care PA 281-d81cac Haylee nn 3e9e18 2013-02-22 2013-02-22 Unknown nullFlavo Comprehensi 1357 8b83-c [facility] 21:00:00 21:00:00 r ve Heart 476-4981-9 l Care PA [id number]-08126i Haylee nn 194e83 2013-02-22 2013-02-22 Unknown nullFlavo Comprehensi a670 8694-3 [facility] 21:00:00 21:00:00 r ve Heart w43-5825-g l Care PA 135-4435bd Haylee nn 832eda 2013-02-22 2013-02-22 Unknown nullFlavo Comprehensi f98c 2b55-2 [facility] 21:00:00 21:00:00 r ve Heart 1f1-83o2-y l Care PA 0bd-1c9acf [facility] f2a8e6 2013-02-22 2013-02-22 Unknown nullFlavo Comprehensi 6b19 6e76-3 [facility] 21:00:00 21:00:00 r ve Heart 383-4f59-8 l Care PA 411-4y490u [facility] b73ec4 2013-02-22 2013-02-22 Unknown nullFlavo Comprehensi eb26 7286-6 [facility] 21:00:00 21:00:00 r ve Heart 8e2-800s-1 l Care PA [id number] [facility] 5fh870 2013-02-22 2013-02-22 Unknown nullFlavo Comprehensi 6b19 6e76-3 [facility] 21:00:00 21:00:00 r ve Heart 383-4f59-8 l Care PA 411-4d793p [facility] b73ec4 2013-02-22 2013-02-22 Unknown nullFlavo Comprehensi eb26 7286-6 [facility] 21:00:00 21:00:00 r ve Heart 3d5-299o-4 l Care PA [id number]-751274 [facility] 5qv232 2013-02-22 2013-02-22 Unknown nullFlavo Comprehensi 3dc0 1820-8 [facility] 21:00:00 21:00:00 r ve Heart 239-4409-b l Care PA [id number] [facility] [id number] 8452-06-12 2013-02-22 Unknown nullFlavo Comprehensi 35ed 9506-1 [facility] 21:00:00 21:00:00 r ve Heart 263-4151-b l Care PA [id number] [facility] nn 74bc98 2013-02-22 2013-02-22 Unknown nullFlavo Comprehensi ccdb 944d-8 [facility] 21:00:00 21:00:00 r ve Heart 4ec-48dd-9 l Care PA [id number]-ir75hd [facility] nn b140ff 2013-02-22 2013-02-22 Unknown nullFlavo Comprehensi 4a61 730e-7 [facility] 21:00:00 21:00:00 r ve Heart 977-4b7e-9 l Care PA [id number]-th0y63 Haylee nn enx808 2013-02-22 2013-02-22 Unknown nullFlavo Comprehensi 85f3 69ec-1 [facility] 21:00:00 21:00:00 r ve Heart 361-47aa-b l Care PA [id number] Haylee nn 9ca7e1 2013-02-22 2013-02-22 Unknown nullFlavo Comprehensi a670 8694-3 [facility] 21:00:00 21:00:00 r ve Heart y99-3606-v l Care PA 135-4435bd Haylee nn 832eda 2013-02-22 2013-02-22 Unknown nullFlavo Comprehensi f98c 2b55-2 [facility] 21:00:00 21:00:00 r ve Heart 0o7-66q9-m l Care PA 0bd-1c9acf Haylee nn f2a8e6 2013-02-22 2013-02-22 Unknown nullFlavo Comprehensi 55f1 e8f1-4 [facility] 21:00:00 21:00:00 r ve Heart k89-5c11-s l Care PA 281-d81cac Haylee nn 3e9e18 2013-02-22 2013-02-22 Unknown nullFlavo Comprehensi 1357 8b83-c [facility] 21:00:00 21:00:00 r ve Heart 476-4981-9 l Care PA [id number]-42595l Haylee nn 194e83 2013-02-22 2013-02-22 Unknown nullFlavo Comprehensi 9d0e 5329-6 [facility] 21:00:00 21:00:00 r ve Heart 405-4146-a l Care PA ac3-0805bd Haylee nn 5a3bfa 2013-02-22 2013-02-22 Unknown nullFlavo Comprehensi 6b19 6e76-3 [facility] 21:00:00 21:00:00 r ve Heart 383-4f59-8 l Care PA 411-1b151c Haylee nn b73ec4 2013-02-22 2013-02-22 Unknown nullFlavo Comprehensi eb26 7286-6 [facility] 21:00:00 21:00:00 r ve Heart 1m5-884a-9 l Care PA [id number]-896465 Haylee nn 2ys220 2013-02-22 2013-02-22 Unknown nullFlavo Comprehensi 3dc0 1820-8 [facility] 21:00:00 21:00:00 r ve Heart 239-4409-b l Care PA 089-a3e5a2 Haylee nn [id number] 5389-06-12 2013-02-22 Unknown nullFlavo Comprehensi 35ed 9506-1 [facility] 21:00:00 21:00:00 r ve Heart 263-4151-b l Care PA [id number]-d2s000 Haylee nn 74bc98 2013-02-22 2013-02-22 Unknown nullFlavo Comprehensi ccdb 944d-8 [facility] 21:00:00 21:00:00 r ve Heart 4ec-48dd-9 l Care PA l42-un63po Haylee nn b140ff 2013-02-22 2013-02-22 Unknown nullFlavo Comprehensi 4a61 730e-7 [facility] 21:00:00 21:00:00 r ve Heart 977-4b7e-9 l Care PA [id number]-qr5r38 Haylee nn oid356 2013-02-22 2013-02-22 Unknown nullFlavo Comprehensi 85f3 69ec-1 [facility] 21:00:00 21:00:00 r ve Heart 361-47aa-b l Care PA [id number] Haylee nn 9ca7e1 2013-02-22 2013-02-22 Unknown nullFlavo Comprehensi a670 8694-3 [facility] 21:00:00 21:00:00 r ve Heart d21-8154-r l Care PA 135-4435bd Haylee nn 832eda 2013-02-22 2013-02-22 Unknown nullFlavo Comprehensi f98c 2b55-2 [facility] 21:00:00 21:00:00 r ve Heart 3u2-85n2-r l Care PA 0bd-1c9acf Haylee nn f2a8e6 2013-02-22 2013-02-22 Unknown nullFlavo Comprehensi 55f1 e8f1-4 [facility] 21:00:00 21:00:00 r ve Heart w05-7g31-q l Care PA 281-d81cac Haylee nn 3e9e18 2013-02-22 2013-02-22 Unknown nullFlavo Comprehensi 1357 8b83-c [facility] 21:00:00 21:00:00 r ve Heart 476-4981-9 l Care PA 1ca-33222h Haylee nn 194e83 2013-02-22 2013-02-22 Unknown nullFlavo Comprehensi 9d0e 5329-6 [facility] 21:00:00 21:00:00 r ve Heart 405-4146-a l Care PA ac3-0805bd Haylee nn 5a3bfa 2013-02-22 2013-02-22 Unknown nullFlavo Comprehensi 7465 569a-1 [facility] 20:00:00 20:00:00 r ve Heart 5fb-474f-a l Care PA anjelica-82f3b8 Haylee nn z4155o 2013-02-22 2013-02-22 Unknown nullFlavo Comprehensi 03b3 755a-d [facility] 20:00:00 20:00:00 r ve Heart d9t-28h1-1 l Care PA 345-9eab6a Haylee nn 93bae7 2013-02-22 2013-02-22 Unknown nullFlavo Comprehensi fcb2 b530-d [facility] 20:00:00 20:00:00 r ve Heart 971-40b9-b l Care PA -6v5504 [facility] nn r9d083 2013-02-22 2013-02-22 Unknown nullFlavo Comprehensi 38cb 0be6-b [facility] 20:00:00 20:00:00 r ve Heart bc4-4dfb-b l Care PA 134-c86b7d Haylee nn 088df6 2013-02-22 2013-02-22 Unknown nullFlavo Comprehensi 400a b7f5-7 [facility] 20:00:00 20:00:00 r ve Heart 115-4030-a l Care PA 685-82a7c2 Haylee nn 08384y 2013-02-22 2013-02-22 Unknown nullFlavo Comprehensi c322 f5bd-a [facility] 20:00:00 20:00:00 r ve Heart cf6-4b69-a l Care PA fa8-3e26dc [facility] nn 118819 1659-06-12 2013-02-22 Unknown nullFlavo Comprehensi 7c24 0203-1 [facility] 20:00:00 20:00:00 r ve Heart 1l3-9164-e l Care PA 78e-bd1d01 [facility] nn 490be2 2013-02-22 2013-02-22 Unknown nullFlavo Comprehensi a023 b5fa-c [facility]oria 20:00:00 20:00:00 r ve Heart cfe-4b75-a l Care PA be7-ce9bc9 [facility] nn 1aaf45 2013-02-22 2013-02-22 Unknown nullFlavo Comprehensi 21ce 9375-b [facility] 20:00:00 20:00:00 r ve Heart ac0-4296-a l Care PA 06a-683ba5 [facility] nn d71eaa 2013-02-22 2013-02-22 Unknown nullFlavo Comprehensi d7cb afed-4 [facility] 20:00:00 20:00:00 r ve Heart 8q6-992a-i l Care PA 816-5337a6 [facility] nn 297e31 2013-02-22 2013-02-22 Unknown nullFlavo Comprehensi f3d8 4ff2-0 [facility]oria 20:00:00 20:00:00 r ve Heart df0-4bd3-8 l Care PA ffe-7d2f6b [facility] nn 5z435g 2013-02-22 2013-02-22 Unknown nullFlavo Comprehensi ca9c acef-e [facility] 20:00:00 20:00:00 r ve Heart 0cf-42b8-9 l Care PA a09-4q5618 [facility] nn adfdf9 2013-02-22 2013-02-22 Unknown nullFlavo Comprehensi c5a2 cef7-8 [facility] 20:00:00 20:00:00 r ve Heart 83b-4bbb-b l Care PA cff-02z635 [facility] nn cafef3 2013-02-22 2013-02-22 Unknown nullFlavo Comprehensi 34bb 4971-1 [facility] 20:00:00 20:00:00 r ve Heart 939-4ab2-8 l Care PA 353-l3o122 [facility] nn 86ed81 2013-02-22 2013-02-22 Unknown nullFlavo Comprehensi 47b5 9d69-d [facility] 20:00:00 20:00:00 r ve Heart 4y9-6666-5 l Care PA p55-3556t8 [facility] nn 9c6e22 2013-02-22 2013-02-22 Unknown nullFlavo Comprehensi fd3c c570-3 [facility] 20:00:00 20:00:00 r ve Heart 8j9-7c02-3 l Care PA b96-72575h [facility] nn b04a43 2013-02-22 2013-02-22 Unknown nullFlavo Comprehensi 44f6 35e5-1 [facility] 20:00:00 20:00:00 r ve Heart 4a4-9540-0 l Care PA 236-afa7a4 [facility] nn 837f46 2013-02-22 2013-02-22 Unknown nullFlavo Comprehensi e2d7 24d1-1 [facility] 20:00:00 20:00:00 r ve Heart 645-48e8-b l Care PA s3e-88a2j3 [facility] nn cdb5a5 2013-02-22 2013-02-22 Unknown nullFlavo Comprehensi 686a c8d9-4 [facility] 20:00:00 20:00:00 r ve Heart 347-4d00-9 l Care PA 223-m4t096 [facility] nn f86df9 2013-02-22 2013-02-22 Unknown nullFlavo Comprehensi 91ef b92f-f [facility] 20:00:00 20:00:00 r ve Heart 217-4ef9-b l Care PA 0fc-521931 [facility] nn a83c4e 2013-02-22 2013-02-22 Unknown nullFlavo Comprehensi 51c5 88e1-7 [facility] 20:00:00 20:00:00 r ve Heart 060-47a7-a l Care PA 5dd-0b40c9 [facility] nn 9a2df8 2013-02-22 2013-02-22 Unknown nullFlavo Comprehensi 7465 569a-1 [facility] 20:00:00 20:00:00 r ve Heart 5fb-474f-a l Care PA anjelica-82f3b8 [facility] nn m0090y 2013-02-22 2013-02-22 Unknown nullFlavo Comprehensi 03b3 755a-d [facility] 20:00:00 20:00:00 r ve Heart d9s-96p9-5 l Care PA 345-9eab6a [facility]lee nn 93bae7 2013-02-22 2013-02-22 Unknown nullFlavo Comprehensi fcb2 b530-d [facility] 20:00:00 20:00:00 r ve Heart 971-40b9-b l Care PA -1b4298 [facility] nn q6x176 2013-02-22 2013-02-22 Unknown nullFlavo Comprehensi 7c24 0203-1 [facility] 20:00:00 20:00:00 r ve Heart 4w0-8549-v l Care PA 78e-bd1d01 [facility] nn 490be2 2013-02-22 2013-02-22 Unknown nullFlavo Comprehensi ca9c acef-e [facility] 20:00:00 20:00:00 r ve Heart 0cf-42b8-9 l Care PA e97-2j1325 [facility]lee nn adfdf9 2013-02-22 2013-02-22 Unknown nullFlavo Comprehensi 38cb 0be6-b [facility] 20:00:00 20:00:00 r ve Heart bc4-4dfb-b l Care PA 134-c86b7d Haylee nn 088df6 2013-02-22 2013-02-22 Unknown nullFlavo Comprehensi 400a b7f5-7 [facility] 20:00:00 20:00:00 r ve Heart 115-4030-a l Care PA 685-82a7c2 Haylee nn 04574z 2013-02-22 2013-02-22 Unknown nullFlavo Comprehensi f3d8 4ff2-0 [facility] 20:00:00 20:00:00 [facility] ve Heart df0-4bd3-8 l Care PA ffe-7d2f6b [facility]lee nn 7u664z 2013-02-22 2013-02-22 Unknown nullFlavo Comprehensi a023 b5fa-c [facility] 20:00:00 20:00:00 r ve Heart cfe-4b75-a l Care PA be7-ce9bc9 [facility] nn 1aaf45 2013-02-22 2013-02-22 Unknown nullFlavo Comprehensi d7cb afed-4 [facility] 20:00:00 20:00:00 r ve Heart 2m3-275r-p l Care PA 816-5337a6 [facility] nn 297e31 2013-02-22 2013-02-22 Unknown nullFlavo Comprehensi fd3c c570-3 [facility] 20:00:00 20:00:00 r ve Heart 8e0-8y17-3 l Care PA c80-67591g [facility] nn b04a43 2013-02-22 2013-02-22 Unknown nullFlavo Comprehensi 21ce 9375-b [facility] 20:00:00 20:00:00 r ve Heart ac0-4296-a l Care PA 06a-683ba5 [facility] nn d71eaa 2013-02-22 2013-02-22 Unknown nullFlavo Comprehensi 44f6 35e5-1 [facility] 20:00:00 20:00:00 r ve Heart 9r2-3664-9 l Care PA 236-afa7a4 [facility] nn 837f46 2013-02-22 2013-02-22 Unknown nullFlavo Comprehensi 47b5 9d69-d [facility] 20:00:00 20:00:00 r ve Heart 3r7-2326-5 l Care PA s56-3727p8 [facility] nn 9c6e22 2013-02-22 2013-02-22 Unknown nullFlavo Comprehensi 34bb 4971-1 [facility] 20:00:00 20:00:00 r ve Heart 939-4ab2-8 l Care PA 353-h7t318 [facility] nn 86ed81 2013-02-22 2013-02-22 Unknown nullFlavo Comprehensi c322 f5bd-a [facility] 20:00:00 20:00:00 r ve Heart cf6-4b69-a l Care PA fa8-3e26dc [facility] nn 342106 8302-06-12 2013-02-22 Unknown nullFlavo Comprehensi 686a c8d9-4 [facility] 20:00:00 20:00:00 r ve Heart 347-4d00-9 l Care PA 223-i0h866 [facility] nn f86df9 2013-02-22 2013-02-22 Unknown nullFlavo Comprehensi c5a2 cef7-8 [facility] 20:00:00 20:00:00 r ve Heart 83b-4bbb-b l Care PA cff-05o589 [facility] nn cafef3 2013-02-22 2013-02-22 Unknown nullFlavo Comprehensi e2d7 24d1-1 [facility] 20:00:00 20:00:00 r ve Heart 645-48e8-b l Care PA v5e-47m7g0 [facility] nn cdb5a5 2013-02-22 2013-02-22 Unknown nullFlavo Comprehensi 91ef b92f-f [facility] 20:00:00 20:00:00 r ve Heart 217-4ef9-b l Care PA 0fc-926759 [facility] nn a83c4e 2013-02-22 2013-02-22 Unknown nullFlavo Comprehensi 51c5 88e1-7 [facility] 20:00:00 20:00:00 r ve Heart 060-47a7-a l Care PA 5dd-0b40c9 [facility] nn 9a2df8 2013-02-22 2013-02-22 Unknown nullFlavo Comprehensi 7465 569a-1 [facility] 20:00:00 20:00:00 r ve Heart 5fb-474f-a l Care PA anjelica-82f3b8 [facility] nn m9057d 2013-02-22 2013-02-22 Unknown nullFlavo Comprehensi 03b3 755a-d [facility] 20:00:00 20:00:00 r ve Heart j0d-35z5-4 l Care PA 345-9eab6a [facility]lee nn 93bae7 2013-02-22 2013-02-22 Unknown nullFlavo Comprehensi fcb2 b530-d [facility] 20:00:00 20:00:00 r ve Heart 971-40b9-b l Care PA -7d0618 [facility] nn k3e351 2013-02-22 2013-02-22 Unknown nullFlavo Comprehensi 7c24 0203-1 [facility] 20:00:00 20:00:00 r ve Heart 5k0-4105-d l Care PA 78e-bd1d01 [facility] nn 490be2 2013-02-22 2013-02-22 Unknown nullFlavo Comprehensi ca9c acef-e [facility] 20:00:00 20:00:00 r ve Heart 0cf-42b8-9 l Care PA d78-5c1219 [facility] nn adfdf9 2013-02-22 2013-02-22 Unknown nullFlavo Comprehensi 38cb 0be6-b [facility] 20:00:00 20:00:00 r ve Heart bc4-4dfb-b l Care PA 134-c86b7d [facility]lee nn 088df6 2013-02-22 2013-02-22 Unknown nullFlavo Comprehensi 400a b7f5-7 [facility] 20:00:00 20:00:00 r ve Heart 115-4030-a l Care PA 685-82a7c2 Haylee nn 58213h 2013-02-22 2013-02-22 Unknown nullFlavo Comprehensi f3d8 4ff2-0 [facility] 20:00:00 20:00:00 r ve Heart df0-4bd3-8 l Care PA ffe-7d2f6b [facility] nn 7a239s 2013-02-22 2013-02-22 Unknown nullFlavo Comprehensi a023 b5fa-c [facility] 20:00:00 20:00:00 r ve Heart cfe-4b75-a l Care PA be7-ce9bc9 [facility] nn 1aaf45 2013-02-22 2013-02-22 Unknown nullFlavo Comprehensi d7cb afed-4 [facility] 20:00:00 20:00:00 r ve Heart 0e4-077a-y l Care PA 816-5337a6 [facility] nn 297e31 2013-02-22 2013-02-22 Unknown nullFlavo Comprehensi fd3c c570-3 [facility] 20:00:00 20:00:00 r ve Heart 2r7-5s22-4 l Care PA p52-28312z [facility] nn b04a43 2013-02-22 2013-02-22 Unknown nullFlavo Comprehensi 21ce 9375-b [facility] 20:00:00 20:00:00 r ve Heart ac0-4296-a l Care PA 06a-683ba5 [facility] nn d71eaa 2013-02-22 2013-02-22 Unknown nullFlavo Comprehensi 44f6 35e5-1 [facility] 20:00:00 20:00:00 r ve Heart 7h7-2254-5 l Care PA 236-afa7a4 [facility] nn 837f46 2013-02-22 2013-02-22 Unknown nullFlavo Comprehensi 47b5 9d69-d [facility] 20:00:00 20:00:00 r ve Heart 7f1-6759-1 l Care PA j24-7570v4 [facility] nn 9c6e22 2013-02-22 2013-02-22 Unknown nullFlavo Comprehensi 34bb 4971-1 [facility] 20:00:00 20:00:00 r ve Heart 939-4ab2-8 l Care PA 353-t9n793 [facility] nn 86ed81 2013-02-22 2013-02-22 Unknown nullFlavo Comprehensi c322 f5bd-a [facility] 20:00:00 20:00:00 r ve Heart cf6-4b69-a l Care PA fa8-3e26dc [facility] nn 222790 7704-06-12 2013-02-22 Unknown nullFlavo Comprehensi 686a c8d9-4 [facility] 20:00:00 20:00:00 r ve Heart 347-4d00-9 l Care PA 223-p5h731 [facility] nn f86df9 2013-02-22 2013-02-22 Unknown nullFlavo Comprehensi c5a2 cef7-8 [facility] 20:00:00 20:00:00 r ve Heart 83b-4bbb-b l Care PA cff-57n365 [facility] nn cafef3 2013-02-22 2013-02-22 Unknown nullFlavo Comprehensi e2d7 24d1-1 [facility] 20:00:00 20:00:00 r ve Heart 645-48e8-b l Care PA c4p-35y2b5 [facility] nn cdb5a5 2013-02-22 2013-02-22 Unknown nullFlavo Comprehensi 91ef b92f-f [facility] 20:00:00 20:00:00 r ve Heart 217-4ef9-b l Care PA 0fc-938379 [facility] nn a83c4e 2013-02-22 2013-02-22 Unknown nullFlavo Comprehensi 51c5 88e1-7 [facility] 20:00:00 20:00:00 r ve Heart 060-47a7-a l Care PA 5dd-0b40c9 [facility] nn 9a2df8 2013-02-22 2013-02-22 Outpatient Comprehen Comprehensi 2 76048 [facility] 15:00:00 15:00:00 sive ve Heart alWor tn Heart Care PA Care PA 2013-02-22 2013-02-22 Outpatient Comprehen Comprehensi 2 52193 [facility]inic 15:00:00 15:00:00 sive ve Heart alWor tn Heart Care PA Care PA 2012-12-23 2012-12-23 Unknown nullFlavo Comprehensi 41c6 fdbe-a [facility] 16:01:00 16:01:00 r ve Heart 965-441b-8 l Care PA 36a-54fc92 [facility]lee nn w4w356 2012-12-23 2012-12-23 Unknown nullFlavo Comprehensi d141 6de9-9 [facility] 16:01:00 16:01:00 r ve Heart 859-4384-b l Care PA 439-c226d3 [facility] nn 303e6f 2012-12-23 2012-12-23 Unknown nullFlavo Comprehensi 6642 365e-2 [facility] 16:01:00 16:01:00 r ve Heart 1d5-87l2-y l Care PA cd0-09f97f [facility] nn f59c5f 2012-12-23 2012-12-23 Unknown nullFlavo Comprehensi 44c3 3a61-a [facility] 16:01:00 16:01:00 r ve Heart 24e-4847-b l Care PA 212-ae1b3b [facility] nn 89b3f7 2012-12-23 2012-12-23 Unknown nullFlavo Comprehensi 088d 01a0-0 [facility] 16:01:00 16:01:00 r ve Heart ae7-4ce7-8 l Care PA 4y4-76n4hr [facility] nn 0n9838 2012-12-23 2012-12-23 Unknown nullFlavo Comprehensi 16fe 1358-a [facility] 16:01:00 16:01:00 r ve Heart 39b-4182-9 l Care PA 1db-89c223 [facility] nn 8573ba 2012-12-23 2012-12-23 Unknown nullFlavo Comprehensi a884 3be1-c [facility] 16:01:00 16:01:00 r ve Heart f7m-5g75-x l Care PA 84c-825d39 [facility] nn 9g0630 2012-12-23 2012-12-23 Unknown nullFlavo Comprehensi 4f96 06a1-3 [facility] 16:01:00 16:01:00 r ve Heart 6p5-6562-j l Care PA 0ca-4bq733 [facility] nn 717550 1706-04-12 2012-12-23 Unknown nullFlavo Comprehensi 6d11 1f6a-0 [facility] 16:01:00 16:01:00 r ve Heart bfd-414a-a l Care PA o71-w794ek [facility] nn 5l6719 2012-12-23 2012-12-23 Unknown nullFlavo Comprehensi a895 afa7-7 [facility] 16:01:00 16:01:00 r ve Heart s96-487c-5 l Care PA ce7-368622 [facility] nn 6cf9c9 2012-12-23 2012-12-23 Unknown nullFlavo Comprehensi 5d3d 3758-a [facility] 16:01:00 16:01:00 r ve Heart 661-4956-8 l Care PA 795-088d3f [facility] nn d4ef72 2012-12-23 2012-12-23 Unknown nullFlavo Comprehensi 989a ac5f-a [facility] 16:01:00 16:01:00 r ve Heart be8-408c-8 l Care PA 1ff-1b4040 [facility] nn 0c5e44 2012-12-23 2012-12-23 Unknown nullFlavo Comprehensi 41c6 fdbe-a [facility] 16:01:00 16:01:00 r ve Heart 965-441b-8 l Care PA 36a-54fc92 [facility] nn b2q237 2012-12-23 2012-12-23 Unknown nullFlavo Comprehensi 44c3 3a61-a [facility] 16:01:00 16:01:00 r ve Heart 24e-4847-b l Care PA 212-ae1b3b [facility] nn 89b3f7 2012-12-23 2012-12-23 Unknown nullFlavo Comprehensi 088d 01a0-0 [facility] 16:01:00 16:01:00 r ve Heart ae7-4ce7-8 l Care PA 3c5-49r7vi [facility] nn 7s0751 2012-12-23 2012-12-23 Unknown nullFlavo Comprehensi d141 6de9-9 [facility] 16:01:00 16:01:00 r ve Heart 859-4384-b l Care PA 439-c226d3 [facility] nn 303e6f 2012-12-23 2012-12-23 Unknown nullFlavo Comprehensi 6642 365e-2 [facility] 16:01:00 16:01:00 r ve Heart 8z3-63v9-x l Care PA cd0-09f97f [facility] nn f59c5f 2012-12-23 2012-12-23 Unknown nullFlavo Comprehensi a895 afa7-7 [facility] 16:01:00 16:01:00 r ve Heart c56-266u-2 l Care PA ce7-308229 [facility] nn 6cf9c9 2012-12-23 2012-12-23 Unknown nullFlavo Comprehensi 16fe 1358-a [facility] 16:01:00 16:01:00 r ve Heart 39b-4182-9 l Care PA 1db-72l138 [facility] nn 8573ba 2012-12-23 2012-12-23 Unknown nullFlavo Comprehensi a884 3be1-c [facility] 16:01:00 16:01:00 r ve Heart c1e-4b54-l l Care PA 84c-825d39 [facility] nn 2j2840 2012-12-23 2012-12-23 Unknown nullFlavo Comprehensi 989a ac5f-a [facility] 16:01:00 16:01:00 r ve Heart be8-408c-8 l Care PA 1ff-7m9391 [facility] nn 0c5e44 2012-12-23 2012-12-23 Unknown nullFlavo Comprehensi 5d3d 3758-a [facility] 16:01:00 16:01:00 r ve Heart 661-4956-8 l Care PA 795-088d3f [facility] nn d4ef72 2012-12-23 2012-12-23 Unknown nullFlavo Comprehensi 4f96 06a1-3 [facility] 16:01:00 16:01:00 r ve Heart 0k3-4702-i l Care PA 0ca-5fp489 [facility] nn 656211 2978-04-12 2012-12-23 Unknown nullFlavo Comprehensi 6d11 1f6a-0 [facility] 16:01:00 16:01:00 r ve Heart bfd-414a-a l Care PA k58-u824xu [facility] nn 7t0152 2012-12-23 2012-12-23 Unknown nullFlavo Comprehensi 41c6 fdbe-a [facility] 16:01:00 16:01:00 r ve Heart 965-441b-8 l Care PA 36a-54fc92 [facility] nn b7e644 2012-12-23 2012-12-23 Unknown nullFlavo Comprehensi 44c3 3a61-a [facility] 16:01:00 16:01:00 r ve Heart 24e-4847-b l Care PA 212-ae1b3b [facility] nn 89b3f7 2012-12-23 2012-12-23 Unknown nullFlavo Comprehensi 088d 01a0-0 [facility] 16:01:00 16:01:00 r ve Heart ae7-4ce7-8 l Care PA 3b3-86p4qx [facility] nn 2f8566 2012-12-23 2012-12-23 Unknown nullFlavo Comprehensi d141 6de9-9 [facility] 16:01:00 16:01:00 r ve Heart 859-4384-b l Care PA 439-c226d3 [facility] nn 303e6f 2012-12-23 2012-12-23 Unknown nullFlavo Comprehensi 6642 365e-2 [facility] 16:01:00 16:01:00 r ve Heart 8v3-83q9-z l Care PA cd0-09f97f [facility] nn f59c5f 2012-12-23 2012-12-23 Unknown nullFlavo Comprehensi a895 afa7-7 [facility] 16:01:00 16:01:00 r ve Heart i85-307r-8 l Care PA ce7-490994 [facility] nn 6cf9c9 2012-12-23 2012-12-23 Unknown nullFlavo Comprehensi 16fe 1358-a [facility] 16:01:00 16:01:00 r ve Heart 39b-4182-9 l Care PA 1db-66g753 [facility] nn 8573ba 2012-12-23 2012-12-23 Unknown nullFlavo Comprehensi a884 3be1-c [facility] 16:01:00 16:01:00 r ve Heart h2t-1c86-w l Care PA 84c-825d39 [facility] nn 5z1758 2012-12-23 2012-12-23 Unknown nullFlavo Comprehensi 989a ac5f-a [facility] 16:01:00 16:01:00 r ve Heart be8-408c-8 l Care PA 1ff-3y9139 [facility] nn 0c5e44 2012-12-23 2012-12-23 Unknown nullFlavo Comprehensi 5d3d 3758-a [facility] 16:01:00 16:01:00 r ve Heart 661-4956-8 l Care PA 795-088d3f [facility] nn d4ef72 2012-12-23 2012-12-23 Unknown nullFlavo Comprehensi 4f96 06a1-3 [facility] 16:01:00 16:01:00 r ve Heart 8o6-0783-m l Care PA 0ca-6rp571 [facility] nn 071438 3179-04-12 2012-12-23 Unknown nullFlavo Comprehensi 6d11 1f6a-0 [facility] 16:01:00 16:01:00 r ve Heart bfd-414a-a l Care PA c75-y930on [facility] nn 0r6330 2012-12-23 2012-12-23 Unknown nullFlavo Comprehensi 7f24 e44e-8 [facility] 15:01:00 15:01:00 r ve Heart e25-783y-l l Care PA 18c-7b8fa7 [facility] nn dc80a0 2012-12-23 2012-12-23 Unknown nullFlavo Comprehensi e674 6877-d [facility] 15:01:00 15:01:00 r ve Heart 1w9-5mq2-2 l Care PA 731-629c50 [facility] nn e60c6c 2012-12-23 2012-12-23 Unknown nullFlavo Comprehensi a7c2 54c0-3 [facility] 15:01:00 15:01:00 r ve Heart 4q1-3790-2 l Care PA df2-3a4ae8 [facility] nn a77f27 2012-12-23 2012-12-23 Unknown nullFlavo Comprehensi 93b9 8b7b-c [facility] 15:01:00 15:01:00 r ve Heart dbc-469c-a l Care PA q3q-m1jxkt [facility] nn 06f37e 2012-12-23 2012-12-23 Unknown nullFlavo Comprehensi 8e3f d169-9 [facility] 15:01:00 15:01:00 r ve Heart 856-46c0-a l Care PA 12b-4k707w [facility] nn r0o679 2012-12-23 2012-12-23 Unknown nullFlavo Comprehensi 041f 1058-b [facility] 15:01:00 15:01:00 r ve Heart 8ae-4c36-8 l Care PA k37-ys522d [facility] nn mz718y 2012-12-23 2012-12-23 Unknown nullFlavo Comprehensi b229 b4e2-1 [facility] 15:01:00 15:01:00 r ve Heart 608-41bd-a l Care PA 7k8-57xq5u [facility] nn c662b0 2012-12-23 2012-12-23 Unknown nullFlavo Comprehensi a1ac 53e6-5 [facility] 15:01:00 15:01:00 r ve Heart 136-481e-b l Care PA 313-t7a043 [facility] nn 8d03af 2012-12-23 2012-12-23 Unknown nullFlavo Comprehensi 49b2 899b-3 [facility] 15:01:00 15:01:00 r ve Heart 93f-4a56-b l Care PA i50-to13q9 [facility] nn p63280 2012-12-23 2012-12-23 Unknown nullFlavo Comprehensi 903e 848f-7 [facility] 15:01:00 15:01:00 r ve Heart 672-4d08-9 l Care PA ab7-ba9ea8 [facility] nn 9h159y 2012-12-23 2012-12-23 Unknown nullFlavo Comprehensi 4bf5 332a-d [facility] 15:01:00 15:01:00 r ve Heart 8d9-26v1-q l Care PA 634-u1g587 Haylee nn 2832c4 2012-12-23 2012-12-23 Unknown nullFlavo Comprehensi a08a 9be8-9 [facility] 15:01:00 15:01:00 r ve Heart 674-4877-8 l Care PA 08e-a5ba54 [facility] nn 8d850j 2012-12-23 2012-12-23 Unknown nullFlavo Comprehensi 2385 a0e4-9 [facility] 15:01:00 15:01:00 r ve Heart dbe-46e0-a l Care PA dfb-gj5839 [facility] nn 8d1ae5 2012-12-23 2012-12-23 Unknown nullFlavo Comprehensi 1828 b6f8-7 [facility] 15:01:00 15:01:00 r ve Heart 63d-45fc-8 l Care PA 648-815d7d [facility] nn dccbcf 2012-12-23 2012-12-23 Unknown nullFlavo Comprehensi 87e8 f3ea-9 [facility] 15:01:00 15:01:00 r ve Heart 1x7-3358-i l Care PA ef6-7c77e7 [facility] nn b3y676 2012-12-23 2012-12-23 Unknown nullFlavo Comprehensi 64bc c214-8 [facility] 15:01:00 15:01:00 r ve Heart g6f-2151-2 l Care PA 9j3-n905he [facility] nn e59535 2012-12-23 2012-12-23 Unknown nullFlavo Comprehensi feae 8e5e-b [facility] 15:01:00 15:01:00 r ve Heart 048-43ce-9 l Care PA 5m5-261w13 [facility] nn 767209 7707-04-12 2012-12-23 Unknown nullFlavo Comprehensi 0306 9b22-7 [facility] 15:01:00 15:01:00 r ve Heart 5i2-57r6-k l Care PA 691-94aa4d [facility] nn 9cy301 2012-12-23 2012-12-23 Unknown nullFlavo Comprehensi be25 abaf-5 [facility] 15:01:00 15:01:00 r ve Heart 263-40c1-a l Care PA 2a4-912268 [facility] 73a2d9 2012-12-23 2012-12-23 Unknown nullFlavo Comprehensi c211 1b3f-f [facility] 15:01:00 15:01:00 r ve Heart 7h3-8477-3 l Care PA [id number] [facility] nn 948fde 2012-12-23 2012-12-23 Unknown nullFlavo Comprehensi 80ea eebc-8 Memoria 15:01:00 15:01:00 r ve Heart cf4-4f82-9 l Care PA [id number] [facility] [id number] 2012-12-23 2012-12-23 Unknown nullFlavo Comprehensi 6a21 924f-1 [facility]oria 15:01:00 15:01:00 r ve Heart 6ef-4122-9 l Care PA [id number] [facility] [id number] 2012-12-23 2012-12-23 Unknown nullFlavo Comprehensi 866b 9438-7 [facility]oria 15:01:00 15:01:00 r ve Heart 705-4798-b l Care PA [id number] [facility] cc43ad 2012-12-23 2012-12-23 Unknown nullFlavo Comprehensi 1535 6332-3 Memoria 15:01:00 15:01:00 r ve Heart 7x5-68va-7 l Care PA [id number]-[id number] [facility] [id number] 2012-12-23 2012-12-23 Unknown nullFlavo Comprehensi 7f24 e44e-8 Memoria 15:01:00 15:01:00 r ve Heart p76-066e-d l Care PA [id number] [facility] nn [id number] 2012-12-23 2012-12-23 Unknown nullFlavo Comprehensi e674 6877-d [facility]oria 15:01:00 15:01:00 r ve Heart 1h1-5tx2-4 l Care PA [id number] [facility] [id number] 2012-12-23 2012-12-23 Unknown nullFlavo Comprehensi 93b9 8b7b-c [facility]oria 15:01:00 15:01:00 r ve Heart dbc-469c-a l Care PA [id number] [facility] nn [id number] 2012-12-23 2012-12-23 Unknown nullFlavo Comprehensi 8e3f d169-9 [facility] 15:01:00 15:01:00 r ve Heart 856-46c0-a l Care PA [id number]-[id number] Haylee nn [id number] 2012-12-23 2012-12-23 Unknown nullFlavo Comprehensi 041f 1058-b [facility] 15:01:00 15:01:00 r ve Heart 8ae-4c36-8 l Care PA [id number]-pt982t Haylee nn ja280x 2012-12-23 2012-12-23 Unknown nullFlavo Comprehensi a7c2 54c0-3 [facility]oria 15:01:00 15:01:00 r ve Heart 5m2-8928-5 l Care PA [id number] [facility]lee nn [id number] 2012-12-23 2012-12-23 Unknown nullFlavo Comprehensi 903e 848f-7 [facility] 15:01:00 15:01:00 r ve Heart 672-4d08-9 l Care PA [id number]-[id number] [facility] nn [id number] 2012-12-23 2012-12-23 Unknown nullFlavo Comprehensi 87e8 f3ea-9 [facility] 15:01:00 15:01:00 r ve Heart 2h0-2978-s l Care PA [id number] [facility] nn [id number] 2012-12-23 2012-12-23 Unknown nullFlavo Comprehensi b229 b4e2-1 [facility] 15:01:00 15:01:00 r ve Heart 608-41bd-a l Care PA [id number] [facility] nn [id number] 2012-12-23 2012-12-23 Unknown nullFlavo Comprehensi a1ac 53e6-5 [facility] 15:01:00 15:01:00 r ve Heart 136-481e-b l Care PA [id number] [facility] nn [id number] 2012-12-23 2012-12-23 Unknown nullFlavo Comprehensi 1828 b6f8-7 [facility] 15:01:00 15:01:00 r ve Heart 63d-45fc-8 l Care PA [id number] [facility] nn dccbcf 2012-12-23 2012-12-23 Unknown nullFlavo Comprehensi 4bf5 332a-d [facility] 15:01:00 15:01:00 r ve Heart 5e0-88b3-e l Care PA [id number] Haylee nn [id number] 2012-12-23 2012-12-23 Unknown nullFlavo Comprehensi 2385 a0e4-9 [facility]oria 15:01:00 15:01:00 r ve Heart dbe-46e0-a l Care PA [id number] Haylee nn [id number] 2012-12-23 2012-12-23 Unknown nullFlavo Comprehensi be25 abaf-5 [facility] 15:01:00 15:01:00 r ve Heart 263-40c1-a l Care PA [id number] [facility]lee nn 73a2d9 2012-12-23 2012-12-23 Unknown nullFlavo Comprehensi a08a 9be8-9 [facility] 15:01:00 15:01:00 r ve Heart 674-4877-8 l Care PA [id number]-a5ba54 [facility]lee nn [id number] 2012-12-23 2012-12-23 Unknown nullFlavo Comprehensi c211 1b3f-f [facility] 15:01:00 15:01:00 r ve Heart 2l2-2250-7 l Care PA 57e-6fd2fa Haylee nn 948fde 2012-12-23 2012-12-23 Unknown nullFlavo Comprehensi 0306 9b22-7 [facility] 15:01:00 15:01:00 r ve Heart 6e7-95a1-u l Care PA [id number] Haylee nn [id number] 2012-12-23 2012-12-23 Unknown nullFlavo Comprehensi feae 8e5e-b [facility] 15:01:00 15:01:00 r ve Heart 048-43ce-9 l Care PA [id number] Haylee nn [id number] 4055-04-12 2012-12-23 Unknown nullFlavo Comprehensi 49b2 899b-3 [facility]oria 15:01:00 15:01:00 r ve Heart 93f-4a56-b l Care PA [id number]-[id number] Haylee nn [id number] 2012-12-23 2012-12-23 Unknown nullFlavo Comprehensi 6a21 924f-1 [facility] 15:01:00 15:01:00 r ve Heart 6ef-4122-9 l Care PA [id number]-811bf0 Haylee nn [id number] 2012-12-23 2012-12-23 Unknown nullFlavo Comprehensi 64bc c214-8 [facility] 15:01:00 15:01:00 r ve Heart b0n-5324-7 l Care PA [id number]-d844ov Haylee nn [id number] 2012-12-23 2012-12-23 Unknown nullFlavo Comprehensi 80ea eebc-8 [facility] 15:01:00 15:01:00 r ve Heart cf4-4f82-9 l Care PA [id number] [facility] nn [id number] 2012-12-23 2012-12-23 Unknown nullFlavo Comprehensi 866b 9438-7 [facility] 15:01:00 15:01:00 r ve Heart 705-4798-b l Care PA [id number] [facility] nn cc43ad 2012-12-23 2012-12-23 Unknown nullFlavo Comprehensi 1535 6332-3 [facility] 15:01:00 15:01:00 r ve Heart 7c8-85gg-3 l Care PA [id number]-19dc9e [facility] nn [id number] 2012-12-23 2012-12-23 Unknown nullFlavo Comprehensi 7f24 e44e-8 [facility]oria 15:01:00 15:01:00 r ve Heart v08-258b-u l Care PA 18c-7b8fa7 [facility] nn dc80a0 2012-12-23 2012-12-23 Unknown nullFlavo Comprehensi e674 6877-d Memoria 15:01:00 15:01:00 r ve Heart 9e9-0kh3-1 l Care PA 731-629c50 [facility] nn e60c6c 2012-12-23 2012-12-23 Unknown nullFlavo Comprehensi 93b9 8b7b-c Memoria 15:01:00 15:01:00 r ve Heart dbc-469c-a l Care PA d5l-p7kiuv [facility] nn 06f37e 2012-12-23 2012-12-23 Unknown nullFlavo Comprehensi 8e3f d169-9 Memoria 15:01:00 15:01:00 r ve Heart 856-46c0-a l Care PA 12b-6y924p [facility] nn m8s015 2012-12-23 2012-12-23 Unknown nullFlavo Comprehensi 041f 1058-b [facility] 15:01:00 15:01:00 r ve Heart 8ae-4c36-8 l Care PA u46-jx821p [facility] nn rn213y 2012-12-23 2012-12-23 Unknown nullFlavo Comprehensi a7c2 54c0-3 [facility] 15:01:00 15:01:00 r ve Heart 2u6-3715-1 l Care PA df2-3a4ae8 [facility] nn a77f27 2012-12-23 2012-12-23 Unknown nullFlavo Comprehensi 903e 848f-7 Memoria 15:01:00 15:01:00 r ve Heart 672-4d08-9 l Care PA ab7-ba9ea8 [facility] nn 4g236u 2012-12-23 2012-12-23 Unknown nullFlavo Comprehensi 87e8 f3ea-9 [facility] 15:01:00 15:01:00 r ve Heart 0b2-2206-x l Care PA ef6-7c77e7 [facility] nn a4b776 2012-12-23 2012-12-23 Unknown nullFlavo Comprehensi b229 b4e2-1 [facility] 15:01:00 15:01:00 r ve Heart 608-41bd-a l Care PA 8d6-12xy2w [facility] nn c662b0 2012-12-23 2012-12-23 Unknown nullFlavo Comprehensi a1ac 53e6-5 [facility] 15:01:00 15:01:00 r ve Heart 136-481e-b l Care PA 313-p9a880 [facility] nn 8d03af 2012-12-23 2012-12-23 Unknown nullFlavo Comprehensi 1828 b6f8-7 Memoria 15:01:00 15:01:00 r ve Heart 63d-45fc-8 l Care PA 648-815d7d [facility] nn dccbcf 2012-12-23 2012-12-23 Unknown nullFlavo Comprehensi 4bf5 332a-d Memoria 15:01:00 15:01:00 r ve Heart 2c2-69f7-z l Care PA 634-h7w743 [facility] nn 2832c4 2012-12-23 2012-12-23 Unknown nullFlavo Comprehensi 2385 a0e4-9 Memoria 15:01:00 15:01:00 r ve Heart dbe-46e0-a l Care PA dfb-tq1122 [facility] nn 8d1ae5 2012-12-23 2012-12-23 Unknown nullFlavo Comprehensi be25 abaf-5 [facility]oria 15:01:00 15:01:00 r ve Heart 263-40c1-a l Care PA 0q7-605149 [facility] nn 73a2d9 2012-12-23 2012-12-23 Unknown nullFlavo Comprehensi a08a 9be8-9 Memoria 15:01:00 15:01:00 r ve Heart 674-4877-8 l Care PA 08e-a5ba54 [facility] nn 2p638n 2012-12-23 2012-12-23 Unknown nullFlavo Comprehensi c211 1b3f-f Memoria 15:01:00 15:01:00 r ve Heart 4a9-1567-6 l Care PA 57e-6fd2fa [facility] nn 948fde 2012-12-23 2012-12-23 Unknown nullFlavo Comprehensi 0306 9b22-7 Memoria 15:01:00 15:01:00 r ve Heart 2e4-24n3-s l Care PA 691-94aa4d [facility] nn 4en547 2012-12-23 2012-12-23 Unknown nullFlavo Comprehensi feae 8e5e-b Memoria 15:01:00 15:01:00 r ve Heart 048-43ce-9 l Care PA 2j4-338a54 [facility] nn 053240 5930-04-12 2012-12-23 Unknown nullFlavo Comprehensi 49b2 899b-3 Memoria 15:01:00 15:01:00 r ve Heart 93f-4a56-b l Care PA h59-yh11q6 [facility] nn n45318 2012-12-23 2012-12-23 Unknown nullFlavo Comprehensi 6a21 924f-1 Memoria 15:01:00 15:01:00 r ve Heart 6ef-4122-9 l Care PA 84a-811bf0 [facility] nn 2vt858 2012-12-23 2012-12-23 Unknown nullFlavo Comprehensi 64bc c214-8 Memoria 15:01:00 15:01:00 r ve Heart k8e-6370-2 l Care PA 2p7-h229om [facility] nn z05741 2012-12-23 2012-12-23 Unknown nullFlavo Comprehensi 80ea eebc-8 Memoria 15:01:00 15:01:00 r ve Heart cf4-4f82-9 l Care PA ee3-15g400 [facility] nn v90752 2012-12-23 2012-12-23 Unknown nullFlavo Comprehensi 866b 9438-7 Memoria 15:01:00 15:01:00 r ve Heart 705-4798-b l Care PA d58-xg9163 [facility] nn cc43ad 2012-12-23 2012-12-23 Unknown nullFlavo Comprehensi 1535 6332-3 Memoria 15:01:00 15:01:00 r ve Heart 1t2-70tq-6 l Care PA 7ec-19dc9e [facility] nn u1u165 2012-12-23 2012-12-23 Outpatient Comprehen Comprehensi 2 [facility]62 [facility]:01[facility] 2012-12-23 2012-12-23 Outpatient Comprehen Comprehensi 2 43075 [facility]inic 10:01[facility]00 [facility]01[facility] 2012-12-22 2012-12-22 Unknown nullFlavo Comprehensi 2775 d282-4 Memoria 16:30:00 16:30:00 r ve Heart 552-47fc-9 l Care PA cb0-pn1016 [facility] nn 54a9ea 2012-12-22 2012-12-22 Unknown nullFlavo Comprehensi c724 3faf-9 Memoria 16:30:00 16:30:00 r ve Heart 3ad-499a-8 l Care PA 3cb-7f5cf8 [facility] nn 73c7ed 2012-12-22 2012-12-22 Unknown nullFlavo Comprehensi 11a5 d98d-d Memoria 16:30:00 16:30:00 r ve Heart i17-563m-z l Care PA 7m3-67o69h [facility] nn 4c0487 2012-12-22 2012-12-22 Unknown nullFlavo Comprehensi cd08 afac-e [facility]oria 16:30:00 16:30:00 [facility] ve Heart y43-9v34-m l Care PA g5l-v18504 [facility] nn 3b6c3b 2012-12-22 2012-12-22 Unknown nullFlavo Comprehensi 88dc f901-2 Memoria 16:30:00 16:30:00 r ve Heart 682-4719-9 l Care PA s8f-79ma8d [facility] nn 03fe52 2012-12-22 2012-12-22 Unknown nullFlavo Comprehensi ee7d e2a0-2 Memoria 16:30:00 16:30:00 r ve Heart l2z-5r05-2 l Care PA dd6-21b48a [facility] nn f95569 2012-12-22 2012-12-22 Unknown nullFlavo Comprehensi b39e 51ec-c Mem[facility] 16:30:00 16:30:00 r ve Heart aa3-4ca9-b l Care PA 6r3-265i60 [facility] nn 9351e6 2012-12-22 2012-12-22 Unknown nullFlavo Comprehensi 5846 0feb-6 [facility] 16:30:00 16:30:00 r ve Heart e63-6951-y l Care PA 5fc-2cbdad [facility] nn 65b55a 2012-12-22 2012-12-22 Unknown nullFlavo Comprehensi 70f8 f8a9-e Memoria 16:30:00 16:30:00 r ve Heart 7aa-476e-9 l Care PA 612-e5b5b2 [facility] nn 5999a4 2012-12-22 2012-12-22 Unknown nullFlavo Comprehensi 42fc 4f11-8 [facility]oria 16:30:00 16:30:00 r ve Heart ccf-4585-a l Care PA 4cc-db6c71 [facility] nn 16i866 2012-12-22 2012-12-22 Unknown nullFlavo Comprehensi 8794 3ae4-f [facility] 16:30:00 16:30:00 r ve Heart 0n6-11m2-4 l Care PA 45c-45m166 [facility] nn 6ba0a3 2012-12-22 2012-12-22 Unknown nullFlavo Comprehensi 690c ad11-f Memoria 16:30:00 16:30:00 r ve Heart 359-48d3-b l Care PA 144-e0dceb [facility] nn a415a7 2012-12-22 2012-12-22 Unknown nullFlavo Comprehensi 2775 d282-4 Memoria 16:30:00 16:30:00 r ve Heart 552-47fc-9 l Care PA cb0-bc9510 [facility] nn 54a9ea 2012-12-22 2012-12-22 Unknown nullFlavo Comprehensi cd08 afac-e [facility] 16:30:00 16:30:00 r ve Heart g75-7u89-g l Care PA v7u-f22203 [facility] nn 3b6c3b 2012-12-22 2012-12-22 Unknown nullFlavo Comprehensi 88dc f901-2 Mem[facility] 16:30:00 16:30:00 r ve Heart 682-4719-9 l Care PA f8b-60cd7x [facility] nn 03fe52 2012-12-22 2012-12-22 Unknown nullFlavo Comprehensi c724 3faf-9 Memoria 16:30:00 16:30:00 r ve Heart 3ad-499a-8 l Care PA 3cb-7f5cf8 [facility] nn 73c7ed 2012-12-22 2012-12-22 Unknown nullFlavo Comprehensi 11a5 d98d-d Memoria 16:30:00 16:30:00 r ve Heart p70-967n-o l Care PA 3n3-31u32l [facility] nn 0o5036 2012-12-22 2012-12-22 Unknown nullFlavo Comprehensi 42fc 4f11-8 Memoria 16:30:00 16:30:00 r ve Heart ccf-4585-a l Care PA 4cc-db6c71 [facility] nn 50u706 2012-12-22 2012-12-22 Unknown nullFlavo Comprehensi ee7d e2a0-2 Memoria 16:30:00 16:30:00 r ve Heart j7p-5l01-7 l Care PA dd6-21b48a [facility] nn b64342 2012-12-22 2012-12-22 Unknown nullFlavo Comprehensi b39e 51ec-c Memoria 16:30:00 16:30:00 r ve Heart aa3-4ca9-b l Care PA 9d8-566z17 [facility] nn 9351e6 2012-12-22 2012-12-22 Unknown nullFlavo Comprehensi 690c ad11-f Memoria 16:30:00 16:30:00 r ve Heart 359-48d3-b l Care PA 144-e0dceb [facility] nn a415a7 2012-12-22 2012-12-22 Unknown nullFlavo Comprehensi 8794 3ae4-f Memoria 16:30:00 16:30:00 r ve Heart 8w5-47l4-0 l Care PA 45c-32b497 [facility] nn 6ba0a3 2012-12-22 2012-12-22 Unknown nullFlavo Comprehensi 5846 0feb-6 Memoria 16:30:00 16:30:00 r ve Heart a64-4694-p l Care PA 5fc-2cbdad [facility] nn 65b55a 2012-12-22 2012-12-22 Unknown nullFlavo Comprehensi 70f8 f8a9-e Memoria 16:30:00 16:30:00 r ve Heart 7aa-476e-9 l Care PA 612-e5b5b2 [facility] nn 5999a4 2012-12-22 2012-12-22 Unknown nullFlavo Comprehensi 2775 d282-4 Memoria 16:30:00 16:30:00 r ve Heart 552-47fc-9 l Care PA cb0-nw4692 [facility] nn 54a9ea 2012-12-22 2012-12-22 Unknown nullFlavo Comprehensi cd08 afac-e Memoria 16:30:00 16:30:00 r ve Heart r68-4r53-k l Care PA e6q-p09003 [facility] nn 3b6c3b 2012-12-22 2012-12-22 Unknown nullFlavo Comprehensi 88dc f901-2 Memoria 16:30:00 16:30:00 r ve Heart 682-4719-9 l Care PA x1d-27tn6z [facility] nn 03fe52 2012-12-22 2012-12-22 Unknown nullFlavo Comprehensi c724 3faf-9 Memoria 16:30:00 16:30:00 r ve Heart 3ad-499a-8 l Care PA 3cb-7f5cf8 [facility] nn 73c7ed 2012-12-22 2012-12-22 Unknown nullFlavo Comprehensi 11a5 d98d-d Memoria 16:30:00 16:30:00 r ve Heart r12-712y-e l Care PA 7w1-12r99v [facility] nn 8b0541 2012-12-22 2012-12-22 Unknown nullFlavo Comprehensi 42fc 4f11-8 Memoria 16:30:00 16:30:00 r ve Heart ccf-4585-a l Care PA 4cc-db6c71 [facility] nn 45h963 2012-12-22 2012-12-22 Unknown nullFlavo Comprehensi ee7d e2a0-2 Memoria 16:30:00 16:30:00 r ve Heart d3r-8p90-9 l Care PA dd6-21b48a [facility] nn f68739 2012-12-22 2012-12-22 Unknown nullFlavo Comprehensi b39e 51ec-c Memoria 16:30:00 16:30:00 r ve Heart aa3-4ca9-b l Care PA 2c6-179l89 [facility] nn 9351e6 2012-12-22 2012-12-22 Unknown nullFlavo Comprehensi 690c ad11-f Memoria 16:30:00 16:30:00 r ve Heart 359-48d3-b l Care PA 144-e0dceb [facility] nn a415a7 2012-12-22 2012-12-22 Unknown nullFlavo Comprehensi 8794 3ae4-f Memoria 16:30:00 16:30:00 r ve Heart 3y1-08a7-0 l Care PA 45c-42r347 [facility] nn 6ba0a3 2012-12-22 2012-12-22 Unknown nullFlavo Comprehensi 5846 0feb-6 Memoria 16:30:00 16:30:00 r ve Heart k06-4600-c l Care PA 5fc-2cbdad [facility] nn 65b55a 2012-12-22 2012-12-22 Unknown nullFlavo Comprehensi 70f8 f8a9-e Memoria 16:30:00 16:30:00 r ve Heart 7aa-476e-9 l Care PA 612-e5b5b2 [facility] nn 5999a4 2012-12-22 2012-12-22 Unknown nullFlavo Comprehensi 9c9d 5009-6 Memoria 15:30:00 15:30:00 r ve Heart ad5-4d64-b l Care PA 18c-0ea44c [facility] nn or3501 2012-12-22 2012-12-22 Unknown nullFlavo Comprehensi fa1a bd01-6 Memoria 15:30:00 15:30:00 r ve Heart dc5-4969-8 l Care PA 6ca-cd20cd [facility] nn 847031 9219-04-11 2012-12-22 Unknown nullFlavo Comprehensi 6f73 b777-9 Memoria 15:30:00 15:30:00 r ve Heart p28-794b-g l Care PA 127-efab70 [facility] nn 34z394 2012-12-22 2012-12-22 Unknown nullFlavo Comprehensi 5b3b 71ae-f Memoria 15:30:00 15:30:00 r ve Heart beb-4c88-9 l Care PA 15b-470465 [facility] nn 1ffd33 2012-12-22 2012-12-22 Unknown nullFlavo Comprehensi 76e6 e079-0 Memoria 15:30:00 15:30:00 r ve Heart 08e-46ec-8 l Care PA 75a-8e42fd [facility] nn d7b9aa 2012-12-22 2012-12-22 Unknown nullFlavo Comprehensi d084 93f2-8 Memoria 15:30:00 15:30:00 r ve Heart 9k7-0x47-t l Care PA f22-89f147 [facility] nn cf06c8 2012-12-22 2012-12-22 Unknown nullFlavo Comprehensi 5b93 458f-b [facility] 15:30:00 15:30:00 r ve Heart 474-46c1-b l Care PA 33d-eafd77 [facility] nn 6w6677 2012-12-22 2012-12-22 Unknown nullFlavo Comprehensi a190 5968-2 Memoria 15:30:00 15:30:00 r ve Heart 2de-4339-b l Care PA 512-8pg243 [facility] nn 764fe4 2012-12-22 2012-12-22 Unknown nullFlavo Comprehensi f4a1 34aa-6 Memoria 15:30:00 15:30:00 r ve Heart c87-9320-n l Care PA 914-f56c49 [facility] nn 278e59 [...] r ve Heart cd7-499f-9 l Care PA bd7-b3r308 [facility] nn efa5db 2012-12-22 2012-12-22 Unknown nullFlavo Comprehensi 6044 de7d-5 Memoria 15:30:00 15:30:00 r ve Heart 018-4a89-8 l Care PA 453-1dcc15 [facility] nn av0324 2012-12-22 2012-12-22 Unknown nullFlavo Comprehensi eb9a 6c2b-c Memoria 15:30:00 15:30:00 r ve Heart n83-2n78-2 l Care PA 03c-z0x919 [facility] nn 978618 1270-04-11 2012-12-22 Unknown nullFlavo Comprehensi 57b5 b8c4-5 Memoria 15:30:00 15:30:00 r ve Heart 324-43a3-a l Care PA 324-205338 [facility] nn 2q803h 2012-12-22 2012-12-22 Unknown nullFlavo Comprehensi 3322 8280-0 Memoria 15:30:00 15:30:00 r ve Heart 1q7-869j-i l Care PA k1d-y98o58 [facility] nn 6163b2 2012-12-22 2012-12-22 Unknown nullFlavo Comprehensi b6f4 cc37-6 [facility] 15:30:00 15:30:00 r ve Heart bff-40ee-9 l Care PA y71-479bci [facility] nn 7e4e06 2012-12-22 2012-12-22 Unknown nullFlavo Comprehensi b2e8 ed4b-0 Memoria 15:30:00 15:30:00 r ve Heart z88-9983-q l Care PA 782-831b6d [facility] nn 3ed89d 2012-12-22 2012-12-22 Unknown nullFlavo Comprehensi 3e5c 92cd-b [facility]oria 15:30:00 15:30:00 r ve Heart aa9-4bf6-8 l Care PA g47-x51040 [facility] nn 127ae2 2012-12-22 2012-12-22 Unknown nullFlavo Comprehensi 36cf 1762-4 Memoria 15:30:00 15:30:00 r ve Heart 579-412a-8 l Care PA 9q6-3iej81 [facility] nn 08df88 2012-12-22 2012-12-22 Unknown nullFlavo Comprehensi 2bcd 86a4-7 Memoria 15:30:00 15:30:00 r ve Heart 418-47a9-a l Care PA c2k-814h8o [facility] nn 5d0b93 2012-12-22 2012-12-22 Unknown nullFlavo Comprehensi b87c 923d-9 Memoria 15:30:00 15:30:00 r ve Heart 278-4818-b l Care PA 052-236cb3 [facility] nn f2y766 2012-12-22 2012-12-22 Unknown nullFlavo Comprehensi 80d7 69ff-9 Memoria 15:30:00 15:30:00 r ve Heart y56-667j-y l Care PA 86a-5715c7 [facility] nn 403b38 2012-12-22 2012-12-22 Unknown nullFlavo Comprehensi 2bcd 86a4-7 Memoria 15:30:00 15:30:00 r ve Heart 418-47a9-a l Care PA t2b-336l4d [facility] nn 5d0b93 2012-12-22 2012-12-22 Unknown nullFlavo Comprehensi 76e6 e079-0 [facility] 15:30:00 15:30:00 r ve Heart 08e-46ec-8 l Care PA 75a-8e42fd [facility] nn d7b9aa 2012-12-22 2012-12-22 Unknown nullFlavo Comprehensi fa1a bd01-6 [facility]oria 15:30:00 15:30:00 r ve Heart dc5-4969-8 l Care PA 6ca-cd20cd [facility] nn 579941 3810-04-11 2012-12-22 Unknown nullFlavo Comprehensi 5b3b 71ae-f [facility] 15:30:00 15:30:00 r ve Heart beb-4c88-9 l Care PA 15b-872132 [facility] nn 1ffd33 2012-12-22 2012-12-22 Unknown nullFlavo Comprehensi ee58 bd7c-8 Memoria 15:30:00 15:30:00 r ve Heart 4cf-4d47-a l Care PA dc9-286fd7 [facility] nn a0f1b9 2012-12-22 2012-12-22 Unknown nullFlavo Comprehensi 6f73 b777-9 Memoria 15:30:00 15:30:00 r ve Heart g42-596z-u l Care PA 127-efab70 [facility] nn 00n208 2012-12-22 2012-12-22 Unknown nullFlavo Comprehensi d974 86d3-5 Memoria 15:30:00 15:30:00 r ve Heart 46b-42c2-8 l Care PA 004-bf48db [facility] nn 5aa8eb 2012-12-22 2012-12-22 Unknown nullFlavo Comprehensi f4a1 34aa-6 Memoria 15:30:00 15:30:00 r ve Heart u43-6329-i l Care PA 914-f56c49 [facility] nn 278e59 2012-12-22 2012-12-22 Unknown nullFlavo Comprehensi a190 5968-2 Memoria 15:30:00 15:30:00 r ve Heart 2de-4339-b l Care PA 512-5sv190 [facility] nn 764fe4 2012-12-22 2012-12-22 Unknown nullFlavo Comprehensi b87c 923d-9 Memoria 15:30:00 15:30:00 r ve Heart 278-4818-b l Care PA 052-236cb3 [facility] nn w6s296 2012-12-22 2012-12-22 Unknown nullFlavo Comprehensi 9c9d 5009-6 Memoria 15:30:00 15:30:00 r ve Heart ad5-4d64-b l Care PA 18c-0ea44c [facility] nn kw5443 2012-12-22 2012-12-22 Unknown nullFlavo Comprehensi eb9a 6c2b-c Memoria 15:30:00 15:30:00 r ve Heart e53-8w17-3 l Care PA 03c-n4a089 [facility] nn 125299 3815-04-11 2012-12-22 Unknown nullFlavo Comprehensi 5b93 458f-b [facility] 15:30:00 15:30:00 r ve Heart 474-46c1-b l Care PA 33d-eafd77 [facility] nn 8q4417 2012-12-22 2012-12-22 Unknown nullFlavo Comprehensi 6044 de7d-5 Memoria 15:30:00 15:30:00 r ve Heart 018-4a89-8 l Care PA 453-1dcc15 [facility] nn vy8737 2012-12-22 2012-12-22 Unknown nullFlavo Comprehensi 57b5 b8c4-5 Memoria 15:30:00 15:30:00 r ve Heart 324-43a3-a l Care PA 324-088846 [facility] nn 1c681p 2012-12-22 2012-12-22 Unknown nullFlavo Comprehensi 3322 8280-0 Memoria 15:30:00 15:30:00 r ve Heart 9x1-636k-s l Care PA a4z-a29x21 [facility] nn 6163b2 2012-12-22 2012-12-22 Unknown nullFlavo Comprehensi b6f4 cc37-6 Mem[facility] 15:30:00 15:30:00 r ve Heart bff-40ee-9 l Care PA x13-072iay [facility] nn 7e4e06 2012-12-22 2012-12-22 Unknown nullFlavo Comprehensi b2e8 ed4b-0 Memoria 15:30:00 15:30:00 r ve Heart t35-5412-l l Care PA 782-831b6d [facility] nn 3ed89d 2012-12-22 2012-12-22 Unknown nullFlavo Comprehensi 3e5c 92cd-b [facility] 15:30:00 15:30:00 r ve Heart aa9-4bf6-8 l Care PA j89-e78213 [facility] nn 127ae2 2012-12-22 2012-12-22 Unknown nullFlavo Comprehensi a0b3 9c86-9 Memoria 15:30:00 15:30:00 r ve Heart cd7-499f-9 l Care PA bd7-j0q812 [facility] nn efa5db 2012-12-22 2012-12-22 Unknown nullFlavo Comprehensi 80d7 69ff-9 [facility] 15:30:00 15:30:00 r ve Heart q89-422u-u l Care PA 86a-5715c7 [facility] nn 403b38 2012-12-22 2012-12-22 Unknown nullFlavo Comprehensi d084 93f2-8 Memoria 15:30:00 15:30:00 r ve Heart 3m0-9p08-p l Care PA t05-69i370 [facility] nn cf06c8 2012-12-22 2012-12-22 Unknown nullFlavo Comprehensi 36cf 1762-4 Memoria 15:30:00 15:30:00 r ve Heart 579-412a-8 l Care PA 3o0-9ezx19 [facility] nn 08df88 2012-12-22 2012-12-22 Unknown nullFlavo Comprehensi 2bcd 86a4-7 Memoria 15:30:00 15:30:00 r ve Heart 418-47a9-a l Care PA h1i-647t2o [facility] nn 5d0b93 2012-12-22 2012-12-22 Unknown nullFlavo Comprehensi 76e6 e079-0 [facility] 15:30:00 15:30:00 r ve Heart 08e-46ec-8 l Care PA 75a-8e42fd [facility] nn d7b9aa 2012-12-22 2012-12-22 Unknown nullFlavo Comprehensi fa1a bd01-6 [facility] 15:30:00 15:30:00 r ve Heart dc5-4969-8 l Care PA 6ca-cd20cd [facility] nn 304404 7809-04-11 2012-12-22 Unknown nullFlavo Comprehensi 5b3b 71ae-f [facility] 15:30:00 15:30:00 r ve Heart beb-4c88-9 l Care PA 15b-455273 [facility] nn 1ffd33 2012-12-22 2012-12-22 Unknown nullFlavo Comprehensi ee58 bd7c-8 [facility] 15:30:00 15:30:00 r ve Heart 4cf-4d47-a l Care PA dc9-286fd7 [facility] nn a0f1b9 2012-12-22 2012-12-22 Unknown nullFlavo Comprehensi 6f73 b777-9 [facility] 15:30:00 15:30:00 r ve Heart m09-392w-f l Care PA 127-efab70 [facility] nn 66s056 2012-12-22 2012-12-22 Unknown nullFlavo Comprehensi d974 86d3-5 [facility] 15:30:00 15:30:00 r ve Heart 46b-42c2-8 l Care PA 004-bf48db [facility] nn 5aa8eb 2012-12-22 2012-12-22 Unknown nullFlavo Comprehensi f4a1 34aa-6 [facility] 15:30:00 15:30:00 r ve Heart x34-0497-c l Care PA 914-f56c49 [facility] nn 278e59 2012-12-22 2012-12-22 Unknown nullFlavo Comprehensi a190 5968-2 Memoria 15:30:00 15:30:00 r ve Heart 2de-4339-b l Care PA 512-1nu655 [facility] nn 764fe4 2012-12-22 2012-12-22 Unknown nullFlavo Comprehensi b87c 923d-9 Memoria 15:30:00 15:30:00 r ve Heart 278-4818-b l Care PA 052-236cb3 [facility] nn p0b112 2012-12-22 2012-12-22 Unknown nullFlavo Comprehensi 9c9d 5009-6 Memoria 15:30:00 15:30:00 r ve Heart ad5-4d64-b l Care PA 18c-0ea44c [facility] nn pd7902 2012-12-22 2012-12-22 Unknown nullFlavo Comprehensi eb9a 6c2b-c [facility] 15:30:00 15:30:00 r ve Heart m73-5z95-0 l Care PA 03c-j5g308 [facility] nn 828770 4825-04-11 2012-12-22 Unknown nullFlavo Comprehensi 5b93 458f-b [facility] 15:30:00 15:30:00 r ve Heart 474-46c1-b l Care PA 33d-eafd77 [facility] nn 1q5520 2012-12-22 2012-12-22 Unknown nullFlavo Comprehensi 6044 de7d-5 [facility] 15:30:00 15:30:00 r ve Heart 018-4a89-8 l Care PA 453-1dcc15 [facility] nn mk2533 2012-12-22 2012-12-22 Unknown nullFlavo Comprehensi 57b5 b8c4-5 Mem[facility] 15:30:00 15:30:00 r ve Heart 324-43a3-a l Care PA 324-253500 [facility] nn 5w145n 2012-12-22 2012-12-22 Unknown nullFlavo Comprehensi 3322 8280-0 Memoria 15:30:00 15:30:00 r ve Heart 3n4-146a-u l Care PA l8u-a43v08 [facility] nn 6163b2 2012-12-22 2012-12-22 Unknown nullFlavo Comprehensi b6f4 cc37-6 [facility] 15:30:00 15:30:00 r ve Heart bff-40ee-9 l Care PA y13-364qvk [facility] nn 7e4e06 2012-12-22 2012-12-22 Unknown nullFlavo Comprehensi b2e8 ed4b-0 [facility] 15:30:00 15:30:00 r ve Heart t88-6381-u l Care PA 782-831b6d [facility] nn 3ed89d 2012-12-22 2012-12-22 Unknown nullFlavo Comprehensi 3e5c 92cd-b Memoria 15:30:00 15:30:00 r ve Heart [id number] l Care PA [id number] [facility] [id number] 2012-12-22 2012-12-22 Unknown nullFlavo Comprehensi a0b3 9c86-9 Memoria 15:30:00 15:30:00 r ve Heart [id number] l Care PA [id number] [facility] [id number] 2012-12-22 2012-12-22 Unknown nullFlavo Comprehensi 80d7 69ff-9 Memoria 15:30:00 15:30:00 r ve Heart [id number] l Care PA [id number] [facility] [id number] 2012-12-22 2012-12-22 Unknown nullFlavo Comprehensi d084 [id number] Memoria 15:30:00 15:30:00 r ve Heart [id number] l Care PA [id number] [facility] [id number] 2012-12-22 2012-12-22 Unknown nullFlavo Comprehensi 36cf 1762-4 [facility]oria 15:30:00 15:30:00 r ve Heart [id number] l Care PA [id number] [facility] [id number] 2012-12-22 2012-12-22 Outpatient Comprehen Comprehensi 2 [id number] [facility] 10:30:00 10:30:00 sive ve Heart alWor tn Heart Care PA Care PA 2012-12-22 2012-12-22 Outpatient Comprehen Comprehensi 2 [id number] [facility]inic 10:30:00 10:30:00 sive ve Heart alWor tn Heart Care PA Care PA Results Test Description Test Time Test Comments Results Result Comments Source TROPONIN I 2023-01-13 06:22:24 Test Item Value Reference Range Interpretation Comme nts TROPONIN I (test code = 1129084895) 0.003 ng/mL <=0.034 VERONICA (test code = [...] biotin. Lab Interpretation (test code = Normal 57759-4) [id number]01 Test Item Value Reference Range Interpretation Comments NT-proBNP (test code = 267 pg/mL <=450 [id number]) VERONICA (test code = VERONICA) Biotin has been reported to cause a negative bias, interpret results relative to patient's use of biotin. Lab Interpretation (test Normal code = 92876-1) [facility]. METABOLIC PANEL (46060)2023-01-13 06:10:21 Test Item Value Reference Range Interpretation Comments NA (test code = 138 mmol/L 135-145 9735995724) K (test code = 4.1 mmol/L 3.5-5.0 9058647448) CL (test code = 99 mmol/L 98-108 2679868891) CO2 TOTAL (test code = 30 mmol/L 23-31 6840713520) AGAP (test code = 9 2-16 8455642057) BUN (test code = 15 mg/dL 7-23 1831058768) GLUCOSE (test code = 164 mg/dL 70-110 H 4421172239) CREATININE (test code = 0.62 mg/dL 0.50-1.04 9071834641) TOTAL BILI (test code = 0.6 mg/dL 0.1-1.7 2244684625) CALCIUM (test code = 9.1 mg/dL 8.6-10.6 1565456341) T PROTEIN (test code = 6.4 g/dL 6.3-8.2 7593165101) ALBUMIN (test code = 3.7 g/dL 3.5-5.0 7212706844) ALK PHOS (test code = 76 U/L 34-122 9666072954) ALTv (test code = 18 U/L 5-35 1742-6) AST(SGOT) (test code = 21 U/L 13-40 5958202268) eGFR (test code = 91.9 mL/min/1.73m2 6681299785) VERONICA (test code = VERONICA) Association of [...] tests). Lab Interpretation Abnormal (test code = 34594-0) [facility] [id number] 06:09:41 Test Item Value Reference Range Interpretation Comments APTT Patient (test 28 See_Comment [Automat ed code = 3173-2) message] The system which generated this result transmitted reference range : 23 - 38 Seconds . The reference range was not used to interpr et this result as normal/abnormal . VERONICA (test code = VERONICA) The [facility] patient population mean normal value for aPTT is 30 seconds. Lab Interpretation Normal (test code = 34305-7) [facility] / [id number] 06:07:21 Test Item Value Reference Range Interpretation [...] tions. Lab Interpretation (test Normal code = 31627-0) [facility] WITH [id number] 05:56:38 Test Item Value Reference Range Interpretation Comments WBC (test code = 5.98 See_Comment [Automated 2716-2) message] The sy stem which generated this result transmitted reference range : 4.30 - 11.10 10*3/?L. The reference range was not used to interpret this result as normal/abnormal . RBC (test code = 4.59 See_Comment [Automated 549-8) message] The sy stem which generated this [...] RDW-SD (test code = 42.4 fL 39.0-49.9 07598-2) RDW-CV (test code = 12.8 % 12.0-15.5 788-0) PLT (test code = 195 See_Comment [Automated 337-3) message] The sy stem which generated this result transmitted reference range : 166 - 358 10*3/ ?L. The reference r rob was not used to interpret this result as normal/abnormal . MPV (test code = 9.7 fL 9.5-12.9 73329-7) NRBC/100 WBC (test 0.0 See_Comment [Automat ed code = 6463595982) message] The system which generated this result transmitted reference range : 0.0 - 10.0 /100 WBCs. The refer ence range was not u sed to interpret th is result as normal/abnormal . NRBC x10^3 (test code See_Comment [Auto mated = [id number]) message] The s ystem which generated this result transmitted reference range : 10*3/?L. The reference range was not used to interpret this result as normal/abnormal . GRAN MAT (NEUT) % 70.2 % (test code = 770-8) IMM GRAN % (test code 0.50 % = 2773095434) LYMPH % (test code = 18.4 % 736-9) MONO % (test code = 8.7 % 5905-5) EOS % (test code = 1.7 % 713-8) BASO % (test code = 0.5 % 706-2) GRAN MAT x10^3(ANC) 4.20 10*3/uL 1.88-7.09 (test code = 4582508945) IMM GRAN x10^3 (test 0.03 10*3/uL 0.00-0.06 code = 6009066585) LYMPH x10^3 (test code 1.10 10*3/uL 1.32-3.29 L = 731-0) MONO x10^3 (test code 0.52 10*3/uL 0.33-0.92 = 742-7) EOS x10^3 (test code = 0.10 10*3/uL 0.03-0.39 711-2) BASO x10^3 (test code 0.03 10*3/uL 0.01-0.07 = 704-7) Lab Interpretation Abnormal (test code = 93421-7) [facility] [id number] 22:05:00 Test Item Value Reference Range Interpretation Comments POC glucose (test code = 108 mg/dL 65-99 H Ope rator Name: [id number]) Camila Villatoro ce ID: [id number] able: HMW Notified rougher helper Interpretation (test Abnormal code = 50882-0) [facility] [id number] 22:05:00 Test Item Value Reference Range Interpretation Comments POC glucose (test code = 108 mg/dL 65-99 H Ope rator Name: [id number]) Camila Villatoro ce ID: [id number] able: HMW Notified rougher helper Interpretation (test Abnormal code = 72861-1) [facility] [Presence] in Respiratory specimen by SHIELA with probe [id number] 21:08:13 Test Item Value Reference Range Interpretation Comments SARS-CoV-2 (COVID-19) RNA Not detected [Presence] in Respiratory specimen by SHIELA with probe detection (test code = 12362-2) Whether patient is employed in a Unknown healthcare setting (test code = 68368-6) Whether the patient has symptoms Unknown related to condition of interest (test code = 76930-7) Whether the patient was Unknown hospitalized for condition of interest (test code = 36349-1) Whether the patient was admitted Unknown to intensive care unit (ICU) for condition of interest (test code = 19353-4) Whether patient resides in a Unknown congregate care setting (test code = 63063-7) status (test code = Unknown 63153-9) Date and time of symptom onset Unknown (test code = 32143-6) [facility] 12 [id number] 21:07:50 Test Item Value Reference Range Interpretation Comments Ventricular rate (test 71 code = 253) Atrial rate (test code 71 = 255) ID interval (test code 254 = 266) QRSD [...] of 17-OCT-2019 22:42,-No significant change was found- [facility] 12 [id number] 21:07:50 Test Item Value Reference Range Interpretation Comments Ventricular rate (test 71 code = 253) Atrial rate (test code 71 = 255) ID interval (test code 254 = 266) QRSD [...] of 17-OCT-2019 22:42,-No significant change was found- [facility] [id number] 23:00:00 Test Item Value Reference Range Interpretation Comments BNP (test code = BNP) 86 [facility] [id number] 23:00:00 Test Item Value Reference Range Interpretation Comments Troponin-I (test code no gt See_Comment [Auto mated message] The = Troponin-I) system which g enerated this result transmit gustavo reference range : <=0.40. The reference r rob was not used to interpr et this result as layton l/abnormal. [facility] [id number] 23:00:00 Test Item Value Reference Range Interpretation Comments CK MB (test code = CK MB) no gt 0.5-3.6 [facility] [id number] 23:00:00 Test Item Value Reference Range Interpretation Comments Total CK (test code = Total CK) 46 12-191 [facility] [id number] 23:00:00 Test Item Value Reference Range Interpretation Comments CK MB Index (test no gt See_Comment [Automate d message] The code = CK MB Index) system w [facility] generated this result transmit gustavo reference range : <=2.5. The reference range was not used to interpr et this result as layton l/abnormal. [facility] [id number] 23:00:00 Test Item Value Reference Range Interpretation Comments Phosphorus (test code = Phosphorus) 2.7 2.5-4.5 [facility]2015-06-08 23:00:00 Test Item Value Reference Range Interpretation Comments Magnesium Lvl (test code = Magnesium 1.8 1.8-2.4 Lvl) [facility]2015-06-08 23:00:00 Test Item Value Reference Range Interpretation Comments BUN (test code = BUN) 13 7-22 [facility]2015-06-08 23:00:00 Test Item Value Reference Range Interpretation Comments ALT (test code = ALT) 26 See_Comment [Auto mated message] The system which ge nerated this result transmit gustavo reference range : <=65. The reference range was not used to interpr et this result as layton l/abnormal. [facility]2015-06-08 23:00:00 Test Item Value Reference Range Interpretation Comments CO2 (test code = CO2) 27 24-32 [facility]2015-06-08 23:00:00 Test Item Value Reference Range Interpretation Comments Glucose Lvl (test code = Glucose Lvl) 270 70-99 [facility]2015-06-08 23:00:00 Test Item Value Reference Range Interpretation Comments AGAP (test code = AGAP) 11.5 10.0-20.0 [facility] CenterGetAutoBidsFRYE REG[facility] CENTERXQMEB3738-95-28 23:00:00 Test Item Value Reference Range Interpretation Comments B/C Ratio (test code = B/C Ratio) 19 6-25 [facility]2015-06-08 23:00:00 Test Item Value Reference Range Interpretation Comments AST (test code = AST) 17 See_Comment [Auto mated message] The system which ge nerated this result transmit gustavo reference range : <=37. The reference range was not used to interpr et this result as layton l/abnormal. [facility]2015-06-08 23:00:00 Test Item Value Reference Range Interpretation Comments eGFR (test code = eGFR) 85 [facility]2015-06-08 23:00:00 Test Item Value Reference Range Interpretation Comments Sodium Lvl (test code = Sodium Lvl) 134 135-145 [facility]2015-06-08 23:00:00 Test Item Value Reference Range Interpretation Comments Creatinine Lvl (test code = Creatinine 0.7 0.5-1.4 Lvl) [facility]2015-06-08 23:00:00 Test Item Value Reference Range Interpretation Comments Potassium Lvl (test code = Potassium 4.5 3.5-5.1 Lvl) [facility]2015-06-08 23:00:00 Test Item Value Reference Range Interpretation Comments Chloride Lvl (test code = Chloride Lvl) 100 95-109 [facility]2015-06-08 23:00:00 Test Item Value Reference Range Interpretation Comments Calcium Lvl (test code = Calcium Lvl) 8.8 8.5-10.5 [facility]2015-06-08 23:00:00 Test Item Value Reference Range Interpretation Comments Albumin Lvl (test code = Albumin Lvl) 3.2 3.5-5.0 [facility]2015-06-08 23:00:00 Test Item Value Reference Range Interpretation Comments A/G Ratio (test code = A/G Ratio) 0.9 0.7-1.6 [facility]2015-06-08 23:00:00 Test Item Value Reference Range Interpretation Comments Bili Total (test code = Bili Total) 0.9 0.2-1.3 [facility]2015-06-08 23:00:00 Test Item Value Reference Range Interpretation Comments Alk Phos (test code = Alk Phos) 96 39-136 [facility]2015-06-08 23:00:00 Test Item Value Reference Range Interpretation Comments Globulin (test code = Globulin) 3.6 2.0-4.0 [facility]2015-06-08 23:00:00 Test Item Value Reference Range Interpretation Comments Total Protein (test code = Total 6.8 6.4-8.4 Protein) [facility]LspggsjLFSTLYYWWA7248-56-78 23:00:00 Test Item Value Reference Range Interpretation Comments RDW (test code = RDW) 13.5 11.5-14.5 [facility] HospitalRriscrxOJHXWSCDYB0699-78-76 23:00:00 Test Item Value Reference Range Interpretation Comments Platelet (test code = Platelet) 197 133-450 [facility] HospitalRzpufphFWHHNIVCZN4421-22-04 23:00:00 Test Item Value Reference Range Interpretation Comments MCH (test code = MCH) 30.0 pg 27.0-31.0 [facility] HospitalVadhjeyCSMROBLBLH7510-54-97 23:00:00 Test Item Value Reference Range Interpretation Comments MCHC (test code = MCHC) 33.7 32.0-36.0 [facility] HospitalZnirxiuZHCEUZUMWC6872-30-46 23:00:00 Test Item Value Reference Range Interpretation Comments Hct (test code = Hct) 41.2 36.0-48.0 [facility] HospitalIovmkwqMKMENLUPGX8976-61-36 23:00:00 Test Item Value Reference Range Interpretation Comments MCV (test code = MCV) 89.2 80.0-98.0 [facility] HospitalKmmedghEUPENCGIJN8465-13-78 23:00:00 Test Item Value Reference Range Interpretation Comments MPV (test code = MPV) 8.0 7.4-10.4 [facility] HospitalUrqgcddUSJIVFFNEJ2488-53-64 23:00:00 Test Item Value Reference Range Interpretation Comments Hgb (test code = Hgb) 13.9 12.0-16.0 [facility] HospitalXeqwvnjPPLBCIUUIL8882-02-80 23:00:00 Test Item Value Reference Range Interpretation Comments RBC (test code = RBC) 4.62 4.20-5.40 [facility] HospitalNzmcrbjLQCUARPAJH4231-66-08 23:00:00 Test Item Value Reference Range Interpretation Comments WBC (test code = WBC) 7.0 3.7-10.4 [facility] HospitalCogpvknVYQKOJOLHS0754-99-64 23:00:00 Test Item Value Reference Range Interpretation Comments Segs-Bands # (test code = Segs-Bands #) 4.9 1.5-8.1 [facility] HospitalVbcaarbRBTOTKQUIG5190-06-00 23:00:00 Test Item Value Reference Range Interpretation Comments Eosinophils (test code = 2.2 See_Comment [A utomated message] The Eosinophils) system which ge nerated this result tra nsmitted reference range : <=4.0. The reference r rob was not used to int erpret this result as normal/abnormal . [facility] HospitalUihyerpLXQNWKWGMD7934-44-66 23:00:00 Test Item Value Reference Range Interpretation Comments Basophils (test code = 0.5 See_Comment [Aut omated message] The Basophils) system which ge nerated this result tra nsmitted reference range : <=1.0. The reference r rob was not used to int erpret this result as normal/abnormal . [facility] HospitalJmdoftwYTEIQMROCN1728-17-93 23:00:00 Test Item Value Reference Range Interpretation Comments Eosinophils # (test code 0.2 See_Comment [A utomated message] The = Eosinophils #) system whic h generated this result tra nsmitted reference range : <=0.5. The reference r rob was not used to int erpret this result as normal/abnormal . [facility] HospitalYtipbvpVJAFOKSPEY6178-50-98 23:00:00 Test Item Value Reference Range Interpretation Comments Basophils # (test code 0.0 See_Comment [Aut omated message] The = Basophils #) system which generated this result tra nsmitted reference range : <=0.2. The reference r rob was not used to int erpret this result as normal/abnormal . [facility] HospitalHebiquwMROKVUAOSM9517-36-97 23:00:00 Test Item Value Reference Range Interpretation Comments Monocytes # (test code 0.6 See_Comment [Aut omated message] The = Monocytes #) system which generated this result tra nsmitted reference range : <=0.8. The reference r rob was not used to int erpret this result as normal/abnormal . [facility] HospitalMfcayhaIVZYHMOJWB7310-92-78 23:00:00 Test Item Value Reference Range Interpretation Comments Lymphocytes (test code = Lymphocytes) 19.2 20.0-40.0 [facility] HospitalIidmjoaAQBQIDWGQQ1982-46-90 23:00:00 Test Item Value Reference Range Interpretation Comments Monocytes (test code = Monocytes) 8.0 2.0-12.0 [facility] HospitalZynyyfeYQHOQZBFGJ3991-31-68 23:00:00 Test Item Value Reference Range Interpretation Comments Lymphocytes # (test code = Lymphocytes 1.3 1.0-5.5 #) [facility] HospitalJufpbypTWBNEOTCUW8415-80-28 23:00:00 Test Item Value Reference Range Interpretation Comments Segs (test code = Segs) 70.1 45.0-75.0 [facility] [id number] 23:00:00 Test Item Value Reference Range Interpretation Comments BNP (test code = BNP) 86 [facility] AMVWWVL0763-38-13 23:00:00 Test Item Value Reference Range Interpretation Comments Troponin-I (test code no gt See_Comment [Auto mated message] The = Troponin-I) system which g enerated this result transmit gustavo reference range : <=0.40. The reference r rob was not used to interpr et this result as layton l/abnormal. [facility] CenterBodyGuardz KCLTCSQ4018-70-57 23:00:00 Test Item Value Reference Range Interpretation Comments CK MB (test code = CK MB) no gt 0.5-3.6 [facility] MVRLKSI4775-82-42 23:00:00 Test Item Value Reference Range Interpretation Comments Total CK (test code = Total CK) 46 12-191 [facility] YNAUHIF9531-83-18 23:00:00 Test Item Value Reference Range Interpretation Comments CK MB Index (test no gt See_Comment [Automate d message] The code = CK MB Index) system w [employer] generated this result transmit gustavo reference range : <=2.5. The reference range was not used to interpr et this result as layton l/abnormal. [facility]2015-06-08 23:00:00 Test Item Value Reference Range Interpretation Comments Phosphorus (test code = Phosphorus) 2.7 2.5-4.5 [facility] [id number] 23:00:00 Test Item Value Reference Range Interpretation Comments Magnesium Lvl (test code = Magnesium 1.8 1.8-2.4 Lvl) [facility] [id number] 23:00:00 Test Item Value Reference Range Interpretation Comments BUN (test code = BUN) 13 7-22 [facility] [id number] 23:00:00 Test Item Value Reference Range Interpretation Comments ALT (test code = ALT) 26 See_Comment [Auto mated message] The system which ge nerated this result transmit gustavo reference range : <=65. The reference range was not used to interpr et this result as layton l/abnormal. [facility]2015-06-08 23:00:00 Test Item Value Reference Range Interpretation Comments CO2 (test code = CO2) 27 24-32 [facility] [id number] 23:00:00 Test Item Value Reference Range Interpretation Comments Glucose Lvl (test code = Glucose Lvl) 270 70-99 [facility] [id number] 23:00:00 Test Item Value Reference Range Interpretation Comments AGAP (test code = AGAP) 11.5 10.0-20.0 [facility]2015-06-08 23:00:00 Test Item Value Reference Range Interpretation Comments B/C Ratio (test code = B/C Ratio) 19 6-25 [facility]2015-06-08 23:00:00 Test Item Value Reference Range Interpretation Comments AST (test code = AST) 17 See_Comment [Auto mated message] The system which ge nerated this result transmit gustavo reference range : <=37. The reference range was not used to interpr et this result as layton l/abnormal. [facility]2015-06-08 23:00:00 Test Item Value Reference Range Interpretation Comments eGFR (test code = eGFR) 85 [facility]2015-06-08 23:00:00 Test Item Value Reference Range Interpretation Comments Sodium Lvl (test code = Sodium Lvl) 134 135-145 [facility]2015-06-08 23:00:00 Test Item Value Reference Range Interpretation Comments Creatinine Lvl (test code = Creatinine 0.7 0.5-1.4 Lvl) [facility]2015-06-08 23:00:00 Test Item Value Reference Range Interpretation Comments Potassium Lvl (test code = Potassium 4.5 3.5-5.1 Lvl) [facility]2015-06-08 23:00:00 Test Item Value Reference Range Interpretation Comments Chloride Lvl (test code = Chloride Lvl) 100 95-109 [facility]2015-06-08 23:00:00 Test Item Value Reference Range Interpretation Comments Calcium Lvl (test code = Calcium Lvl) 8.8 8.5-10.5 [facility]2015-06-08 23:00:00 Test Item Value Reference Range Interpretation Comments Albumin Lvl (test code = Albumin Lvl) 3.2 3.5-5.0 [facility]2015-06-08 23:00:00 Test Item Value Reference Range Interpretation Comments A/G Ratio (test code = A/G Ratio) 0.9 0.7-1.6 [facility]2015-06-08 23:00:00 Test Item Value Reference Range Interpretation Comments Bili Total (test code = Bili Total) 0.9 0.2-1.3 [facility]2015-06-08 23:00:00 Test Item Value Reference Range Interpretation Comments Alk Phos (test code = Alk Phos) 96 39-136 [facility] [id number] 23:00:00 Test Item Value Reference Range Interpretation Comments Globulin (test code = Globulin) 3.6 2.0-4.0 [facility] [id number] 23:00:00 Test Item Value Reference Range Interpretation Comments Total Protein (test code = Total 6.8 6.4-8.4 Protein) [facility] HospitalYiavzpgFRDHOQKHFH5978-53-11 23:00:00 Test Item Value Reference Range Interpretation Comments RDW (test code = RDW) 13.5 11.5-14.5 [facility] HospitalXejqdcmWKSVPTUCED0376-02-58 23:00:00 Test Item Value Reference Range Interpretation Comments Platelet (test code = Platelet) 197 133-450 [facility] HospitalYomhpgnHCQZQFWVTO9501-04-34 23:00:00 Test Item Value Reference Range Interpretation Comments MCH (test code = MCH) 30.0 pg 27.0-31.0 [facility] HospitalJdrpjsgMWKRNZZRDZ0123-36-07 23:00:00 Test Item Value Reference Range Interpretation Comments MCHC (test code = MCHC) 33.7 32.0-36.0 [facility] HospitalJtnhrukOGABUASOFV8393-26-91 23:00:00 Test Item Value Reference Range Interpretation Comments Hct (test code = Hct) 41.2 36.0-48.0 [facility] HospitalPaqibjmPSUSOFBUQE5898-45-96 23:00:00 Test Item Value Reference Range Interpretation Comments MCV (test code = MCV) 89.2 80.0-98.0 [facility] HospitalHgceujxNTJXBKUJLN0969-63-54 23:00:00 Test Item Value Reference Range Interpretation Comments MPV (test code = MPV) 8.0 7.4-10.4 [facility] HospitalWispbleRDKEFUIOTX2297-23-41 23:00:00 Test Item Value Reference Range Interpretation Comments Hgb (test code = Hgb) 13.9 12.0-16.0 [facility] HospitalYccghhvAROGURQEJI2663-67-25 23:00:00 Test Item Value Reference Range Interpretation Comments RBC (test code = RBC) 4.62 4.20-5.40 [facility] HospitalMebxqotFBCDVWBMSO0393-07-11 23:00:00 Test Item Value Reference Range Interpretation Comments WBC (test code = WBC) 7.0 3.7-10.4 [facility] HospitalIjecgxwLTFNTIYPZZ6276-54-91 23:00:00 Test Item Value Reference Range Interpretation Comments Segs-Bands # (test code = Segs-Bands #) 4.9 1.5-8.1 [facility] HospitalEwhksxmINOTDACYPQ2704-78-80 23:00:00 Test Item Value Reference Range Interpretation Comments Eosinophils (test code = 2.2 See_Comment [A utomated message] The Eosinophils) system which ge nerated this result tra nsmitted reference range : <=4.0. The reference r rob was not used to int erpret this result as normal/abnormal . [facility] HospitalRpwgkeoVWBEHQXDKF1292-65-58 23:00:00 Test Item Value Reference Range Interpretation Comments Basophils (test code = 0.5 See_Comment [Aut omated message] The Basophils) system which ge nerated this result tra nsmitted reference range : <=1.0. The reference r rob was not used to int erpret this result as normal/abnormal . [facility] HospitalRqgqkndKJEXDMHWUV6411-44-65 23:00:00 Test Item Value Reference Range Interpretation Comments Eosinophils # (test code 0.2 See_Comment [A utomated message] The = Eosinophils #) system whic h generated this result tra nsmitted reference range : <=0.5. The reference r rob was not used to int erpret this result as normal/abnormal . [facility] HospitalWgfjvnuISQEVITNJK2472-40-99 23:00:00 Test Item Value Reference Range Interpretation Comments Basophils # (test code 0.0 See_Comment [Aut omated message] The = Basophils #) system which generated this result tra nsmitted reference range : <=0.2. The reference r rob was not used to int erpret this result as normal/abnormal . [facility] HospitalSrktyxfYRBDHFILEO6583-49-78 23:00:00 Test Item Value Reference Range Interpretation Comments Monocytes # (test code 0.6 See_Comment [Aut omated message] The = Monocytes #) system which generated this result tra nsmitted reference range : <=0.8. The reference r rob was not used to int erpret this result as normal/abnormal . [facility] HospitalJezkqzkGCWCHQTQYP0639-68-96 23:00:00 Test Item Value Reference Range Interpretation Comments Lymphocytes (test code = Lymphocytes) 19.2 20.0-40.0 [facility] HospitalViuutvjZYZSBOXJMF0986-31-64 23:00:00 Test Item Value Reference Range Interpretation Comments Monocytes (test code = Monocytes) 8.0 2.0-12.0 [facility] CenterNtcuiyqUJBUCOOGCC7218-68-59 23:00:00 Test Item Value Reference Range Interpretation Comments Lymphocytes # (test code = Lymphocytes 1.3 1.0-5.5 #) [facility] CenterZfzlxwtRKZIKAROGP6865-08-59 23:00:00 Test Item Value Reference Range Interpretation Comments Segs (test code = Segs) 70.1 45.0-75.0 [facility] ETHRTRZ2519-91-54 23:00:00 Test Item Value Reference Range Interpretation Comments BNP (test code = BNP) 86 [facility] FBBSOFV3087-68-95 23:00:00 Test Item Value Reference Range Interpretation Comments Troponin-I (test code no gt See_Comment [Auto mated message] The = Troponin-I) system which g enerated this result transmit gustavo reference range : <=0.40. The reference r rob was not used to interpr et this result as layton l/abnormal. [facility] JNKJPVU4511-98-64 23:00:00 Test Item Value Reference Range Interpretation Comments CK MB (test code = CK MB) no gt 0.5-3.6 [facility] ZYXUJDR1081-41-22 23:00:00 Test Item Value Reference Range Interpretation Comments Total CK (test code = Total CK) 46 12-191 [facility] PHRMGGJ5819-70-74 23:00:00 Test Item Value Reference Range Interpretation Comments CK MB Index (test no gt See_Comment [Automate d message] The code = CK MB Index) system w [facility] generated this result transmit gustavo reference range : <=2.5. The reference range was not used to interpr et this result as layton l/abnormal. [facility] [id number] 23:00:00 Test Item Value Reference Range Interpretation Comments Phosphorus (test code = Phosphorus) 2.7 2.5-4.5 [facility] [employer] [id number] 23:00:00 Test Item Value Reference Range Interpretation Comments Magnesium Lvl (test code = Magnesium 1.8 1.8-2.4 Lvl) [facility] [id number] 23:00:00 Test Item Value Reference Range Interpretation Comments BUN (test code = BUN) 13 7-22 [facility]2015-06-08 23:00:00 Test Item Value Reference Range Interpretation Comments ALT (test code = ALT) 26 See_Comment [Auto mated message] The system which ge nerated this result transmit gustavo reference range : <=65. The reference range was not used to interpr et this result as layton l/abnormal. [facility] [employer] [facility] LHWRQ6882-81-68 23:00:00 Test Item Value Reference Range Interpretation Comments CO2 (test code = CO2) 27 24-32 [facility] MGQRI7711-07-94 23:00:00 Test Item Value Reference Range Interpretation Comments Glucose Lvl (test code = Glucose Lvl) 270 70-99 [facility] JXECG9836-59-50 23:00:00 Test Item Value Reference Range Interpretation Comments AGAP (test code = AGAP) 11.5 10.0-20.0 [facility] [id number] 23:00:00 Test Item Value Reference Range Interpretation Comments B/C Ratio (test code = B/C Ratio) 19 6-25 [facility] MDCPG6064-37-43 23:00:00 Test Item Value Reference Range Interpretation Comments AST (test code = AST) 17 See_Comment [Auto mated message] The system which ge nerated this result transmit gustavo reference range : <=37. The reference range was not used to interpr et this result as layton l/abnormal. [facility] ALUHF6373-20-47 23:00:00 Test Item Value Reference Range Interpretation Comments eGFR (test code = eGFR) 85 [facility] VMJMW5075-27-12 23:00:00 Test Item Value Reference Range Interpretation Comments Sodium Lvl (test code = Sodium Lvl) 134 135-145 [facility] [id number] 23:00:00 Test Item Value Reference Range Interpretation Comments Creatinine Lvl (test code = Creatinine 0.7 0.5-1.4 Lvl) [facility]2015-06-08 23:00:00 Test Item Value Reference Range Interpretation Comments Potassium Lvl (test code = Potassium 4.5 3.5-5.1 Lvl) [facility] [employer] [facility] [id number] 23:00:00 Test Item Value Reference Range Interpretation Comments Chloride Lvl (test code = Chloride Lvl) 100 95-109 [facility]2015-06-08 23:00:00 Test Item Value Reference Range Interpretation Comments Calcium Lvl (test code = Calcium Lvl) 8.8 8.5-10.5 [facility]2015-06-08 23:00:00 Test Item Value Reference Range Interpretation Comments Albumin Lvl (test code = Albumin Lvl) 3.2 3.5-5.0 [facility]2015-06-08 23:00:00 Test Item Value Reference Range Interpretation Comments A/G Ratio (test code = A/G Ratio) 0.9 0.7-1.6 [facility]2015-06-08 23:00:00 Test Item Value Reference Range Interpretation Comments Bili Total (test code = Bili Total) 0.9 0.2-1.3 [facility]2015-06-08 23:00:00 Test Item Value Reference Range Interpretation Comments Alk Phos (test code = Alk Phos) 96 39-136 [facility]2015-06-08 23:00:00 Test Item Value Reference Range Interpretation Comments Globulin (test code = Globulin) 3.6 2.0-4.0 [facility]2015-06-08 23:00:00 Test Item Value Reference Range Interpretation Comments Total Protein (test code = Total 6.8 6.4-8.4 Protein) [id number] 23:00:00 Test Item Value Reference Range Interpretation Comments RDW (test code = RDW) 13.5 11.5-14.5 [facility] HospitalAxnhgnaQJRFFSIDSE7935-62-85 23:00:00 Test Item Value Reference Range Interpretation Comments Platelet (test code = Platelet) 197 133-450 [facility] HospitalTivsthmCTATMKGLEQ0840-62-89 23:00:00 Test Item Value Reference Range Interpretation Comments MCH (test code = MCH) 30.0 pg 27.0-31.0 [facility] HospitalIbjpsrxCLPFDKUDVG2404-97-87 23:00:00 Test Item Value Reference Range Interpretation Comments MCHC (test code = MCHC) 33.7 32.0-36.0 [facility] HospitalSyedtekMDMKZPAMBY1352-42-92 23:00:00 Test Item Value Reference Range Interpretation Comments Hct (test code = Hct) 41.2 36.0-48.0 [facility] HospitalCwdirfqPIJPZORXJV7086-51-03 23:00:00 Test Item Value Reference Range Interpretation Comments MCV (test code = MCV) 89.2 80.0-98.0 [facility] HospitalKtihihcCQXVJLCZTS4214-48-51 23:00:00 Test Item Value Reference Range Interpretation Comments MPV (test code = MPV) 8.0 7.4-10.4 [facility] HospitalAxvehpeYZUVERYMVQ0142-32-20 23:00:00 Test Item Value Reference Range Interpretation Comments Hgb (test code = Hgb) 13.9 12.0-16.0 [facility] HospitalNibfhjqKTNIUKLLPT9634-76-66 23:00:00 Test Item Value Reference Range Interpretation Comments RBC (test code = RBC) 4.62 4.20-5.40 [place] [id number] 23:00:00 Test Item Value Reference Range Interpretation Comments WBC (test code = WBC) 7.0 3.7-10.4 [facility] HospitalOjxnmsmOGNNAJKPYG0329-81-49 23:00:00 Test Item Value Reference Range Interpretation Comments Segs-Bands # (test code = Segs-Bands #) 4.9 1.5-8.1 [facility] HospitalYxoqkapTDYDURYWDG0939-95-46 23:00:00 Test Item Value Reference Range Interpretation Comments Eosinophils (test code = 2.2 See_Comment [A utomated message] The Eosinophils) system which ge nerated this result tra nsmitted reference range : <=4.0. The reference r rob was not used to int erpret this result as normal/abnormal . [facility] HospitalSrgbeykHVYSTVUKYJ3830-43-76 23:00:00 Test Item Value Reference Range Interpretation Comments Basophils (test code = 0.5 See_Comment [Aut omated message] The Basophils) system which ge nerated this result tra nsmitted reference range : <=1.0. The reference r rob was not used to int erpret this result as normal/abnormal . [facility] HospitalIznezbjVUSSORZCNS6939-29-81 23:00:00 Test Item Value Reference Range Interpretation Comments Eosinophils # (test code 0.2 See_Comment [A utomated message] The = Eosinophils #) system whic h generated this result tra nsmitted reference range : <=0.5. The reference r rob was not used to int erpret this result as normal/abnormal . [facility] HospitalWzlncjjVRGHUJCJLB4012-90-96 23:00:00 Test Item Value Reference Range Interpretation Comments Basophils # (test code 0.0 See_Comment [Aut omated message] The = Basophils #) system which generated this result tra nsmitted reference range : <=0.2. The reference r rob was not used to int erpret this result as normal/abnormal . [facility] HospitalJdjupsaKLWOGHUBHM3689-34-74 23:00:00 Test Item Value Reference Range Interpretation Comments Monocytes # (test code 0.6 See_Comment [Aut omated message] The = Monocytes #) system which generated this result tra nsmitted reference range : <=0.8. The reference r rob was not used to int erpret this result as normal/abnormal . [facility] HospitalOsbxzjaOCPUBTSHNB4087-31-32 23:00:00 Test Item Value Reference Range Interpretation Comments Lymphocytes (test code = Lymphocytes) 19.2 20.0-40.0 [facility] HospitalZynvpjrRNESZZNNLU9838-45-20 23:00:00 Test Item Value Reference Range Interpretation Comments Monocytes (test code = Monocytes) 8.0 2.0-12.0 [facility] HospitalLbwlzpiERBARFJTBT4830-99-33 23:00:00 Test Item Value Reference Range Interpretation Comments Lymphocytes # (test code = Lymphocytes 1.3 1.0-5.5 #) [facility] HospitalOggfhdbPONVJBDTIU4374-45-27 23:00:00 Test Item Value Reference Range Interpretation Comments Segs (test code = Segs) 70.1 45.0-75.0 [facility] [id number] 23:00:00 Test Item Value Reference Range Interpretation Comments BNP (test code = BNP) 86 [facility] [id number] 23:00:00 Test Item Value Reference Range Interpretation Comments Troponin-I (test code no gt See_Comment [Auto mated message] The = Troponin-I) system which g enerated this result transmit gustavo reference range : <=0.40. The reference r rob was not used to interpr et this result as layton l/abnormal. [facility] [id number] 23:00:00 Test Item Value Reference Range Interpretation Comments CK MB (test code = CK MB) no gt 0.5-3.6 [facility] [id number] 23:00:00 Test Item Value Reference Range Interpretation Comments Total CK (test code = Total CK) 46 12-191 [facility]annC[facility] [id number] 23:00:00 Test Item Value Reference Range Interpretation Comments CK MB Index (test no gt See_Comment [Automate d message] The code = CK MB Index) system w [employer] generated this result transmit gustavo reference range : <=2.5. The reference range was not used to interpr et this result as layton l/abnormal. [facility] [id number] 23:00:00 Test Item Value Reference Range Interpretation Comments Phosphorus (test code = Phosphorus) 2.7 2.5-4.5 [facility] [id number] 23:00:00 Test Item Value Reference Range Interpretation Comments Magnesium Lvl (test code = Magnesium 1.8 1.8-2.4 Lvl) [facility] [id number] 23:00:00 Test Item Value Reference Range Interpretation Comments BUN (test code = BUN) 13 7-22 [facility] [id number] 23:00:00 Test Item Value Reference Range Interpretation Comments ALT (test code = ALT) 26 See_Comment [Auto mated message] The system which ge nerated this result transmit gustavo reference range : <=65. The reference range was not used to interpr et this result as layton l/abnormal. [facility] [id number] 23:00:00 Test Item Value Reference Range Interpretation Comments CO2 (test code = CO2) 27 24-32 [facility] [id number] 23:00:00 Test Item Value Reference Range Interpretation Comments Glucose Lvl (test code = Glucose Lvl) 270 70-99 [facility] [id number] 23:00:00 Test Item Value Reference Range Interpretation Comments AGAP (test code = AGAP) 11.5 10.0-20.0 [facility] [id number] 23:00:00 Test Item Value Reference Range Interpretation Comments B/C Ratio (test code = B/C Ratio) 19 6-25 [facility] [id number] 23:00:00 Test Item Value Reference Range Interpretation Comments AST (test code = AST) 17 See_Comment [Auto mated message] The system which ge nerated this result transmit gustavo reference range : <=37. The reference range was not used to interpr et this result as layton l/abnormal. [facility]2015-06-08 23:00:00 Test Item Value Reference Range Interpretation Comments eGFR (test code = eGFR) 85 [facility]2015-06-08 23:00:00 Test Item Value Reference Range Interpretation Comments Sodium Lvl (test code = Sodium Lvl) 134 135-145 [facility]2015-06-08 23:00:00 Test Item Value Reference Range Interpretation Comments Creatinine Lvl (test code = Creatinine 0.7 0.5-1.4 Lvl) [facility]2015-06-08 23:00:00 Test Item Value Reference Range Interpretation Comments Potassium Lvl (test code = Potassium 4.5 3.5-5.1 Lvl) [facility]2015-06-08 23:00:00 Test Item Value Reference Range Interpretation Comments Chloride Lvl (test code = Chloride Lvl) 100 95-109 [facility]2015-06-08 23:00:00 Test Item Value Reference Range Interpretation Comments Calcium Lvl (test code = Calcium Lvl) 8.8 8.5-10.5 [facility]2015-06-08 23:00:00 Test Item Value Reference Range Interpretation Comments Albumin Lvl (test code = Albumin Lvl) 3.2 3.5-5.0 [facility]2015-06-08 23:00:00 Test Item Value Reference Range Interpretation Comments A/G Ratio (test code = A/G Ratio) 0.9 0.7-1.6 [facility]2015-06-08 23:00:00 Test Item Value Reference Range Interpretation Comments Bili Total (test code = Bili Total) 0.9 0.2-1.3 [facility]2015-06-08 23:00:00 Test Item Value Reference Range Interpretation Comments Alk Phos (test code = Alk Phos) 96 39-136 [facility]2015-06-08 23:00:00 Test Item Value Reference Range Interpretation Comments Globulin (test code = Globulin) 3.6 2.0-4.0 [facility]2015-06-08 23:00:00 Test Item Value Reference Range Interpretation Comments Total Protein (test code = Total 6.8 6.4-8.4 Protein) [facility] Hospit[id number] 23:00:00 Test Item Value Reference Range Interpretation Comments RDW (test code = RDW) 13.5 11.5-14.5 [facility] HospitalRtiwtfkZLYWJGXFJO0250-34-75 23:00:00 Test Item Value Reference Range Interpretation Comments Platelet (test code = Platelet) 197 133-450 [facility] HospitalEzrifutIUESAXLSMF1167-38-98 23:00:00 Test Item Value Reference Range Interpretation Comments MCH (test code = MCH) 30.0 pg 27.0-31.0 [facility] HospitalNwgtxeiJDCYTWIPRY7482-74-79 23:00:00 Test Item Value Reference Range Interpretation Comments MCHC (test code = MCHC) 33.7 32.0-36.0 [facility] HospitalYtohrzqMHNSLCMVEP7520-35-28 23:00:00 Test Item Value Reference Range Interpretation Comments Hct (test code = Hct) 41.2 36.0-48.0 [facility] HospitalXsuslbnVCOLDDEJFM4254-09-81 23:00:00 Test Item Value Reference Range Interpretation Comments MCV (test code = MCV) 89.2 80.0-98.0 [facility] HospitalOrsyjizOTDDIOIXMT8006-23-88 23:00:00 Test Item Value Reference Range Interpretation Comments MPV (test code = MPV) 8.0 7.4-10.4 [facility] HospitalQeghaaeRQVDDTMXBX1137-85-38 23:00:00 Test Item Value Reference Range Interpretation Comments Hgb (test code = Hgb) 13.9 12.0-16.0 [facility] HospitalOnpxqqsRAJYVTGNJA6970-76-57 23:00:00 Test Item Value Reference Range Interpretation Comments RBC (test code = RBC) 4.62 4.20-5.40 [facility] HospitalTuubqhdOEYECLLJJZ8772-21-93 23:00:00 Test Item Value Reference Range Interpretation Comments WBC (test code = WBC) 7.0 3.7-10.4 [facility] HospitalChegeeiECOBVMCJVT4827-56-90 23:00:00 Test Item Value Reference Range Interpretation Comments Segs-Bands # (test code = Segs-Bands #) 4.9 1.5-8.1 [place] [id number] 23:00:00 Test Item Value Reference Range Interpretation Comments Eosinophils (test code = 2.2 See_Comment [A utomated message] The Eosinophils) system which ge nerated this result tra nsmitted reference range : <=4.0. The reference r rob was not used to int erpret this result as normal/abnormal . [facility] HospitalTanzrbwDBEBABFTAZ8215-11-27 23:00:00 Test Item Value Reference Range Interpretation Comments Basophils (test code = 0.5 See_Comment [Aut omated message] The Basophils) system which ge nerated this result tra nsmitted reference range : <=1.0. The reference r rob was not used to int erpret this result as normal/abnormal . [facility] HospitalXdsjairHBLTEJLCZN7353-02-84 23:00:00 Test Item Value Reference Range Interpretation Comments Eosinophils # (test code 0.2 See_Comment [A utomated message] The = Eosinophils #) system whic h generated this result tra nsmitted reference range : <=0.5. The reference r rob was not used to int erpret this result as normal/abnormal . [facility] Hospit[id number] 23:00:00 Test Item Value Reference Range Interpretation Comments Basophils # (test code 0.0 See_Comment [Aut omated message] The = Basophils #) system which generated this result tra nsmitted reference range : <=0.2. The reference r rob was not used to int erpret this result as normal/abnormal . [facility] HospitalHzwwrryTGMYKHEADB5067-05-43 23:00:00 Test Item Value Reference Range Interpretation Comments Monocytes # (test code 0.6 See_Comment [Aut omated message] The = Monocytes #) system which generated this result tra nsmitted reference range : <=0.8. The reference r rob was not used to int erpret this result as normal/abnormal . [facility] HospitalNegxizzFLWFPSKLVC9880-67-57 23:00:00 Test Item Value Reference Range Interpretation Comments Lymphocytes (test code = Lymphocytes) 19.2 20.0-40.0 [facility] HospitalAuqyyyiNNCGXSZULS8482-90-70 23:00:00 Test Item Value Reference Range Interpretation Comments Monocytes (test code = Monocytes) 8.0 2.0-12.0 [facility] HospitalNwfrpgzRXILESUTRO6428-11-47 23:00:00 Test Item Value Reference Range Interpretation Comments Lymphocytes # (test code = Lymphocytes 1.3 1.0-5.5 #) [facility]YeychwjJITBEJMGUA0834-17-97 23:00:00 Test Item Value Reference Range Interpretation Comments Segs (test code = Segs) 70.1 45.0-75.0 [facility]annCARDIAC [id number] 23:00:00 Test Item Value Reference Range Interpretation Comments BNP (test code = BNP) 86 [facility]annCARDIAC [id number] 23:00:00 Test Item Value Reference Range Interpretation Comments Troponin-I (test code no gt See_Comment [Auto mated message] The = Troponin-I) system which g enerated this result transmit gustavo reference range : <=0.40. The reference r rob was not used to interpr et this result as layton l/abnormal. [facility] CenterannCARLogicStream HealthAC [id number] 23:00:00 Test Item Value Reference Range Interpretation Comments CK MB (test code = CK MB) no gt 0.5-3.6 [facility]annCARLogicStream HealthAC [id number] 23:00:00 Test Item Value Reference Range Interpretation Comments Total CK (test code = Total CK) 46 12-191 [facility] CenterannCARLogicStream HealthAC [id number] 23:00:00 Test Item Value Reference Range Interpretation Comments CK MB Index (test no gt See_Comment [Automate d message] The code = CK MB Index) system w [facility] generated this result transmit gustavo reference range : <=2.5. The reference range was not used to interpr et this result as layton l/abnormal. [facility] [employer] [id number] 23:00:00 Test Item Value Reference Range Interpretation Comments Phosphorus (test code = Phosphorus) 2.7 2.5-4.5 [facility] VanatecannCHEM [id number] 23:00:00 Test Item Value Reference Range Interpretation Comments Magnesium Lvl (test code = Magnesium 1.8 1.8-2.4 Lvl) [facility]annGuo [facility] [employer] [id number] 23:00:00 Test Item Value Reference Range Interpretation Comments BUN (test code = BUN) 13 7-22 [facility] [employer] [id number] 23:00:00 Test Item Value Reference Range Interpretation Comments ALT (test code = ALT) 26 See_Comment [Auto mated message] The system which ge nerated this result transmit gustavo reference range : <=65. The reference range was not used to interpr et this result as layton l/abnormal. [facility]2015-06-08 23:00:00 Test Item Value Reference Range Interpretation Comments CO2 (test code = CO2) 27 24-32 [facility]2015-06-08 23:00:00 Test Item Value Reference Range Interpretation Comments Glucose Lvl (test code = Glucose Lvl) 270 70-99 [facility]2015-06-08 23:00:00 Test Item Value Reference Range Interpretation Comments AGAP (test code = AGAP) 11.5 10.0-20.0 [facility]2015-06-08 23:00:00 Test Item Value Reference Range Interpretation Comments B/C Ratio (test code = B/C Ratio) 19 6-25 [facility]2015-06-08 23:00:00 Test Item Value Reference Range Interpretation Comments AST (test code = AST) 17 See_Comment [Auto mated message] The system which ge nerated this result transmit gustavo reference range : <=37. The reference range was not used to interpr et this result as layton l/abnormal. [facility]2015-06-08 23:00:00 Test Item Value Reference Range Interpretation Comments eGFR (test code = eGFR) 85 [facility]2015-06-08 23:00:00 Test Item Value Reference Range Interpretation Comments Sodium Lvl (test code = Sodium Lvl) 134 135-145 [facility]2015-06-08 23:00:00 Test Item Value Reference Range Interpretation Comments Creatinine Lvl (test code = Creatinine 0.7 0.5-1.4 Lvl) [facility]2015-06-08 23:00:00 Test Item Value Reference Range Interpretation Comments Potassium Lvl (test code = Potassium 4.5 3.5-5.1 Lvl) [facility]2015-06-08 23:00:00 Test Item Value Reference Range Interpretation Comments Chloride Lvl (test code = Chloride Lvl) 100 95-109 [facility]2015-06-08 23:00:00 Test Item Value Reference Range Interpretation Comments Calcium Lvl (test code = Calcium Lvl) 8.8 8.5-10.5 [facility]2015-06-08 23:00:00 Test Item Value Reference Range Interpretation Comments Albumin Lvl (test code = Albumin Lvl) 3.2 3.5-5.0 [facility]2015-06-08 23:00:00 Test Item Value Reference Range Interpretation Comments A/G Ratio (test code = A/G Ratio) 0.9 0.7-1.6 [facility]2015-06-08 23:00:00 Test Item Value Reference Range Interpretation Comments Bili Total (test code = Bili Total) 0.9 0.2-1.3 [facility]2015-06-08 23:00:00 Test Item Value Reference Range Interpretation Comments Alk Phos (test code = Alk Phos) 96 39-136 [facility]2015-06-08 23:00:00 Test Item Value Reference Range Interpretation Comments Globulin (test code = Globulin) 3.6 2.0-4.0 [facility]2015-06-08 23:00:00 Test Item Value Reference Range Interpretation Comments Total Protein (test code = Total 6.8 6.4-8.4 Protein) [facility] HospitalNkncwpvZIMJVIBFZQ7516-52-01 23:00:00 Test Item Value Reference Range Interpretation Comments RDW (test code = RDW) 13.5 11.5-14.5 [facility] HospitalVyhpzmgWCALCNTADH9410-55-67 23:00:00 Test Item Value Reference Range Interpretation Comments Platelet (test code = Platelet) 197 133-450 [facility] HospitalMallcxyJOHZGAESRD3353-95-78 23:00:00 Test Item Value Reference Range Interpretation Comments MCH (test code = MCH) 30.0 pg 27.0-31.0 [facility] HospitalPwmiudnSUHOVWFPGH3449-13-03 23:00:00 Test Item Value Reference Range Interpretation Comments MCHC (test code = MCHC) 33.7 32.0-36.0 [facility] HospitalYmvxxezJDSTDQWDPV2016-39-40 23:00:00 Test Item Value Reference Range Interpretation Comments Hct (test code = Hct) 41.2 36.0-48.0 [facility] HospitalWxofospZXNQIXBRHP1463-62-11 23:00:00 Test Item Value Reference Range Interpretation Comments MCV (test code = MCV) 89.2 80.0-98.0 [facility] HospitalFitndbuPZXMZIWDQL4390-47-79 23:00:00 Test Item Value Reference Range Interpretation Comments MPV (test code = MPV) 8.0 7.4-10.4 [facility] HospitalTwlvpnfSTMQLAOIYK5490-94-87 23:00:00 Test Item Value Reference Range Interpretation Comments Hgb (test code = Hgb) 13.9 12.0-16.0 [facility] HospitalXsenasdKHXMDSWVCT1519-97-53 23:00:00 Test Item Value Reference Range Interpretation Comments RBC (test code = RBC) 4.62 4.20-5.40 [facility] HospitalOyryqzuWDZYZZSGIW7143-50-26 23:00:00 Test Item Value Reference Range Interpretation Comments WBC (test code = WBC) 7.0 3.7-10.4 [facility] HospitalEzncsdrUMBMRLKUYP0598-27-79 23:00:00 Test Item Value Reference Range Interpretation Comments Segs-Bands # (test code = Segs-Bands #) 4.9 1.5-8.1 [facility] Hospit[id number] 23:00:00 Test Item Value Reference Range Interpretation Comments Eosinophils (test code = 2.2 See_Comment [A utomated message] The Eosinophils) system which ge nerated this result tra nsmitted reference range : <=4.0. The reference r rob was not used to int erpret this result as normal/abnormal . [facility] HospitalNifthwkBVGFLYYWXQ1944-36-91 23:00:00 Test Item Value Reference Range Interpretation Comments Basophils (test code = 0.5 See_Comment [Aut omated message] The Basophils) system which ge nerated this result tra nsmitted reference range : <=1.0. The reference r rob was not used to int erpret this result as normal/abnormal . [facility] HospitalXxnghwdSOIMIZWBXI1906-00-27 23:00:00 Test Item Value Reference Range Interpretation Comments Eosinophils # (test code 0.2 See_Comment [A utomated message] The = Eosinophils #) system whic h generated this result tra nsmitted reference range : <=0.5. The reference r rob was not used to int erpret this result as normal/abnormal . [facility] HospitalTttmbivTGKGABDOVW1253-05-83 23:00:00 Test Item Value Reference Range Interpretation Comments Basophils # (test code 0.0 See_Comment [Aut omated message] The = Basophils #) system which generated this result tra nsmitted reference range : <=0.2. The reference r rob was not used to int erpret this result as normal/abnormal . [facility] FistvtnFWBOWJVRIZ1905-37-06 23:00:00 Test Item Value Reference Range Interpretation Comments Monocytes # (test code 0.6 See_Comment [Aut omated message] The = Monocytes #) system which generated this result tra nsmitted reference range : <=0.8. The reference r rob was not used to int erpret this result as normal/abnormal . [facility] CjktvolQYUDEINUJO4171-87-64 23:00:00 Test Item Value Reference Range Interpretation Comments Lymphocytes (test code = Lymphocytes) 19.2 20.0-40.0 [facility] GadlcsxSHCXWNBOJT9021-69-50 23:00:00 Test Item Value Reference Range Interpretation Comments Monocytes (test code = Monocytes) 8.0 2.0-12.0 [facility] SxarjefZRMSCNSEVK1015-43-84 23:00:00 Test Item Value Reference Range Interpretation Comments Lymphocytes # (test code = Lymphocytes 1.3 1.0-5.5 #) [facility] XooxgpxESGXCQWJJT1288-94-64 23:00:00 Test Item Value Reference Range Interpretation Comments Segs (test code = Segs) 70.1 45.0-75.0 [facility] [employer] ETFDUSC9757-85-08 23:00:00 Test Item Value Reference Range Interpretation Comments BNP (test code = BNP) 86 [facility] [employer] [id number] 23:00:00 Test Item Value Reference Range Interpretation Comments Troponin-I (test code no gt See_Comment [Auto mated message] The = Troponin-I) system which g enerated this result transmit gustavo reference range : <=0.40. The reference r rob was not used to interpr et this result as layton l/abnormal. [facility] [id number] 23:00:00 Test Item Value Reference Range Interpretation Comments CK MB (test code = CK MB) no gt 0.5-3.6 [facility] [id number] 23:00:00 Test Item Value Reference Range Interpretation Comments Total CK (test code = Total CK) 46 12-191 [facility] [id number] 23:00:00 Test Item Value Reference Range Interpretation Comments CK MB Index (test no gt See_Comment [Automate d message] The code = CK MB Index) system w [facility] generated this result transmit gustavo reference range : <=2.5. The reference range was not used to interpr et this result as layton l/abnormal. [facility] [id number] 23:00:00 Test Item Value Reference Range Interpretation Comments Phosphorus (test code = Phosphorus) 2.7 2.5-4.5 [facility] [id number] 23:00:00 Test Item Value Reference Range Interpretation Comments Magnesium Lvl (test code = Magnesium 1.8 1.8-2.4 Lvl) [facility] [id number] 23:00:00 Test Item Value Reference Range Interpretation Comments BUN (test code = BUN) 13 7-22 [facility] [id number] 23:00:00 Test Item Value Reference Range Interpretation Comments ALT (test code = ALT) 26 See_Comment [Auto mated message] The system which ge nerated this result transmit gustavo reference range : <=65. The reference range was not used to interpr et this result as layton l/abnormal. [facility] [id number] 23:00:00 Test Item Value Reference Range Interpretation Comments CO2 (test code = CO2) 27 24-32 [facility] [id number] 23:00:00 Test Item Value Reference Range Interpretation Comments Glucose Lvl (test code = Glucose Lvl) 270 70-99 [facility] [id number] 23:00:00 Test Item Value Reference Range Interpretation Comments AGAP (test code = AGAP) 11.5 10.0-20.0 [facility] [id number] 23:00:00 Test Item Value Reference Range Interpretation Comments B/C Ratio (test code = B/C Ratio) 19 6-25 [facility] [id number] 23:00:00 Test Item Value Reference Range Interpretation Comments AST (test code = AST) 17 See_Comment [Auto mated message] The system which ge nerated this result transmit gustavo reference range : <=37. The reference range was not used to interpr et this result as layton l/abnormal. [facility]2015-06-08 23:00:00 Test Item Value Reference Range Interpretation Comments eGFR (test code = eGFR) 85 [facility]2015-06-08 23:00:00 Test Item Value Reference Range Interpretation Comments Sodium Lvl (test code = Sodium Lvl) 134 135-145 [facility]2015-06-08 23:00:00 Test Item Value Reference Range Interpretation Comments Creatinine Lvl (test code = Creatinine 0.7 0.5-1.4 Lvl) [facility]2015-06-08 23:00:00 Test Item Value Reference Range Interpretation Comments Potassium Lvl (test code = Potassium 4.5 3.5-5.1 Lvl) [facility]2015-06-08 23:00:00 Test Item Value Reference Range Interpretation Comments Chloride Lvl (test code = Chloride Lvl) 100 95-109 [facility]2015-06-08 23:00:00 Test Item Value Reference Range Interpretation Comments Calcium Lvl (test code = Calcium Lvl) 8.8 8.5-10.5 [facility]2015-06-08 23:00:00 Test Item Value Reference Range Interpretation Comments Albumin Lvl (test code = Albumin Lvl) 3.2 3.5-5.0 [facility]2015-06-08 23:00:00 Test Item Value Reference Range Interpretation Comments A/G Ratio (test code = A/G Ratio) 0.9 0.7-1.6 [facility]2015-06-08 23:00:00 Test Item Value Reference Range Interpretation Comments Bili Total (test code = Bili Total) 0.9 0.2-1.3 [facility]2015-06-08 23:00:00 Test Item Value Reference Range Interpretation Comments Alk Phos (test code = Alk Phos) 96 39-136 [facility]2015-06-08 23:00:00 Test Item Value Reference Range Interpretation Comments Globulin (test code = Globulin) 3.6 2.0-4.0 [facility]2015-06-08 23:00:00 Test Item Value Reference Range Interpretation Comments Total Protein (test code = Total 6.8 6.4-8.4 Protein) [id number] 23:00:00 Test Item Value Reference Range Interpretation Comments RDW (test code = RDW) 13.5 11.5-14.5 [facility] Hospit[id number] 23:00:00 Test Item Value Reference Range Interpretation Comments Platelet (test code = Platelet) 197 133-450 [facility] Hospit[id number] 23:00:00 Test Item Value Reference Range Interpretation Comments MCH (test code = MCH) 30.0 pg 27.0-31.0 [facility] HospitalOaqekwfEXEQYDPCSR1317-21-08 23:00:00 Test Item Value Reference Range Interpretation Comments MCHC (test code = MCHC) 33.7 32.0-36.0 [facility] HospitalHijmnzaYIAAPOMSDU8942-69-58 23:00:00 Test Item Value Reference Range Interpretation Comments Hct (test code = Hct) 41.2 36.0-48.0 [facility] HospitalEjrqrmtJTXOLQUIOX6189-00-44 23:00:00 Test Item Value Reference Range Interpretation Comments MCV (test code = MCV) 89.2 80.0-98.0 [facility] HospitalPzjtnjdJTDFHITZZR2075-46-99 23:00:00 Test Item Value Reference Range Interpretation Comments MPV (test code = MPV) 8.0 7.4-10.4 [facility] Hospit[id number] 23:00:00 Test Item Value Reference Range Interpretation Comments Hgb (test code = Hgb) 13.9 12.0-16.0 [facility] HospitalXlextbyWQPVMSEKFO7041-68-14 23:00:00 Test Item Value Reference Range Interpretation Comments RBC (test code = RBC) 4.62 4.20-5.40 [facility] HospitalGnqnfeeKONLFCSIQD9286-03-56 23:00:00 Test Item Value Reference Range Interpretation Comments WBC (test code = WBC) 7.0 3.7-10.4 [facility] HospitalOleldtgBPKOXSDJZX9719-43-52 23:00:00 Test Item Value Reference Range Interpretation Comments Segs-Bands # (test code = Segs-Bands #) 4.9 1.5-8.1 [facility] HospitalBolsrkyWYUATUWYRZ1576-43-49 23:00:00 Test Item Value Reference Range Interpretation Comments Eosinophils (test code = 2.2 See_Comment [A utomated message] The Eosinophils) system which ge nerated this result tra nsmitted reference range : <=4.0. The reference r rob was not used to int erpret this result as normal/abnormal . [facility] Ho[id number] 23:00:00 Test Item Value Reference Range Interpretation Comments Basophils (test code = 0.5 See_Comment [Aut omated message] The Basophils) system which ge nerated this result tra nsmitted reference range : <=1.0. The reference r rob was not used to int erpret this result as normal/abnormal . [facility] HospitalWgpgyykZLICIXFRUA7640-71-93 23:00:00 Test Item Value Reference Range Interpretation Comments Eosinophils # (test code 0.2 See_Comment [A utomated message] The = Eosinophils #) system whic h generated this result tra nsmitted reference range : <=0.5. The reference r rob was not used to int erpret this result as normal/abnormal . [facility] Hospit[id number] 23:00:00 Test Item Value Reference Range Interpretation Comments Basophils # (test code 0.0 See_Comment [Aut omated message] The = Basophils #) system which generated this result tra nsmitted reference range : <=0.2. The reference r rob was not used to int erpret this result as normal/abnormal . [facility] HospitalWumysnuVTXWNHGULT8987-19-06 23:00:00 Test Item Value Reference Range Interpretation Comments Monocytes # (test code 0.6 See_Comment [Aut omated message] The = Monocytes #) system which generated this result tra nsmitted reference range : <=0.8. The reference r rob was not used to int erpret this result as normal/abnormal . [facility] HospitalGvyxabnWLKUAWWNGT7039-40-11 23:00:00 Test Item Value Reference Range Interpretation Comments Lymphocytes (test code = Lymphocytes) 19.2 20.0-40.0 [facility] HospitalIbeapunCOYAUDIFRP9436-10-10 23:00:00 Test Item Value Reference Range Interpretation Comments Monocytes (test code = Monocytes) 8.0 2.0-12.0 [facility] HospitalOvgdbpqCSBMNIPJHS4561-05-03 23:00:00 Test Item Value Reference Range Interpretation Comments Lymphocytes # (test code = Lymphocytes 1.3 1.0-5.5 #) [facility] H[id number] 23:00:00 Test Item Value Reference Range Interpretation Comments Segs (test code = Segs) 70.1 45.0-75.0 [facility] [id number] 23:00:00 Test Item Value Reference Range Interpretation Comments BNP (test code = BNP) 86 [facility] [id number] 23:00:00 Test Item Value Reference Range Interpretation Comments Troponin-I (test code no gt See_Comment [Auto mated message] The = Troponin-I) system which g enerated this result transmit gustavo reference range : <=0.40. The reference r rob was not used to interpr et this result as layton l/abnormal. [facility]2015-06-08 23:00:00 Test Item Value Reference Range Interpretation Comments CK MB (test code = CK MB) no gt 0.5-3.6 [facility] 23:00:00 Test Item Value Reference Range Interpretation Comments Total CK (test code = Total CK) 46 12-191 [facility] 23:00:00 Test Item Value Reference Range Interpretation Comments CK MB Index (test no gt See_Comment [Automate d message] The code = CK MB Index) system w [facility] generated this result transmit gustavo reference range : <=2.5. The reference range was not used to interpr et this result as layton l/abnormal. [facility]2015-06-08 23:00:00 Test Item Value Reference Range Interpretation Comments Phosphorus (test code = Phosphorus) 2.7 2.5-4.5 [facility]2015-06-08 23:00:00 Test Item Value Reference Range Interpretation Comments Magnesium Lvl (test code = Magnesium 1.8 1.8-2.4 Lvl) [facility]2015-06-08 23:00:00 Test Item Value Reference Range Interpretation Comments BUN (test code = BUN) 13 7-22 [facility]2015-06-08 23:00:00 Test Item Value Reference Range Interpretation Comments ALT (test code = ALT) 26 See_Comment [Auto mated message] The system which ge nerated this result transmit gustavo reference range : <=65. The reference range was not used to interpr et this result as layton l/abnormal. [facility]2015-06-08 23:00:00 Test Item Value Reference Range Interpretation Comments CO2 (test code = CO2) 27 24-32 [facility]2015-06-08 23:00:00 Test Item Value Reference Range Interpretation Comments Glucose Lvl (test code = Glucose Lvl) 270 70-99 [facility]2015-06-08 23:00:00 Test Item Value Reference Range Interpretation Comments AGAP (test code = AGAP) 11.5 10.0-20.0 [facility]2015-06-08 23:00:00 Test Item Value Reference Range Interpretation Comments B/C Ratio (test code = B/C Ratio) 19 6-25 [facility]2015-06-08 23:00:00 Test Item Value Reference Range Interpretation Comments AST (test code = AST) 17 See_Comment [Auto mated message] The system which ge nerated this result transmit gustavo reference range : <=37. The reference range was not used to interpr et this result as layton l/abnormal. [facility]2015-06-08 23:00:00 Test Item Value Reference Range Interpretation Comments eGFR (test code = eGFR) 85 [facility]2015-06-08 23:00:00 Test Item Value Reference Range Interpretation Comments Sodium Lvl (test code = Sodium Lvl) 134 135-145 [facility]2015-06-08 23:00:00 Test Item Value Reference Range Interpretation Comments Creatinine Lvl (test code = Creatinine 0.7 0.5-1.4 Lvl) [facility]2015-06-08 23:00:00 Test Item Value Reference Range Interpretation Comments Potassium Lvl (test code = Potassium 4.5 3.5-5.1 Lvl) [facility]2015-06-08 23:00:00 Test Item Value Reference Range Interpretation Comments Chloride Lvl (test code = Chloride Lvl) 100 95-109 [facility]2015-06-08 23:00:00 Test Item Value Reference Range Interpretation Comments Calcium Lvl (test code = Calcium Lvl) 8.8 8.5-10.5 [facility]2015-06-08 23:00:00 Test Item Value Reference Range Interpretation Comments Albumin Lvl (test code = Albumin Lvl) 3.2 3.5-5.0 [facility]2015-06-08 23:00:00 Test Item Value Reference Range Interpretation Comments A/G Ratio (test code = A/G Ratio) 0.9 0.7-1.6 [facility]2015-06-08 23:00:00 Test Item Value Reference Range Interpretation Comments Bili Total (test code = Bili Total) 0.9 0.2-1.3 [facility]2015-06-08 23:00:00 Test Item Value Reference Range Interpretation Comments Alk Phos (test code = Alk Phos) 96 39-136 [facility]2015-06-08 23:00:00 Test Item Value Reference Range Interpretation Comments Globulin (test code = Globulin) 3.6 2.0-4.0 [facility]2015-06-08 23:00:00 Test Item Value Reference Range Interpretation Comments Total Protein (test code = Total 6.8 6.4-8.4 Protein) [facility] Hospit[id number] 23:00:00 Test Item Value Reference Range Interpretation Comments RDW (test code = RDW) 13.5 11.5-14.5 [facility] HospitalDgdgknpZZIPWHDHUQ0126-57-83 23:00:00 Test Item Value Reference Range Interpretation Comments Platelet (test code = Platelet) 197 133-450 [facility] HospitalSekoxfcCNGOCLEXXN1782-08-36 23:00:00 Test Item Value Reference Range Interpretation Comments MCH (test code = MCH) 30.0 pg 27.0-31.0 [facility] HospitalRznzseiVZQJQELUEG4741-00-22 23:00:00 Test Item Value Reference Range Interpretation Comments MCHC (test code = MCHC) 33.7 32.0-36.0 [facility] HospitalFdkqctnNCQRGVGGKC2739-28-66 23:00:00 Test Item Value Reference Range Interpretation Comments Hct (test code = Hct) 41.2 36.0-48.0 [facility] HospitalSkrrtvkRPOWVHBSTQ4731-08-34 23:00:00 Test Item Value Reference Range Interpretation Comments MCV (test code = MCV) 89.2 80.0-98.0 [facility] HospitalRhogdxpMPIWTOPFFK3495-89-79 23:00:00 Test Item Value Reference Range Interpretation Comments MPV (test code = MPV) 8.0 7.4-10.4 [place] [id number] 23:00:00 Test Item Value Reference Range Interpretation Comments Hgb (test code = Hgb) 13.9 12.0-16.0 [facility] HospitalFymsaifAOIDBLDDGQ8662-34-37 23:00:00 Test Item Value Reference Range Interpretation Comments RBC (test code = RBC) 4.62 4.20-5.40 [facility] HospitalCxurdykNEPNRJYRFI3467-07-12 23:00:00 Test Item Value Reference Range Interpretation Comments WBC (test code = WBC) 7.0 3.7-10.4 [facility] Hospit[id number] 23:00:00 Test Item Value Reference Range Interpretation Comments Segs-Bands # (test code = Segs-Bands #) 4.9 1.5-8.1 [facility] HospitalYusrqbzMOHYLEZAEI8659-75-86 23:00:00 Test Item Value Reference Range Interpretation Comments Eosinophils (test code = 2.2 See_Comment [A utomated message] The Eosinophils) system which ge nerated this result tra nsmitted reference range : <=4.0. The reference r rob was not used to int erpret this result as normal/abnormal . [facility] HospitalAfshlctLKFCRMDKDK9107-14-26 23:00:00 Test Item Value Reference Range Interpretation Comments Basophils (test code = 0.5 See_Comment [Aut omated message] The Basophils) system which ge nerated this result tra nsmitted reference range : <=1.0. The reference r rob was not used to int erpret this result as normal/abnormal . [facility] HospitalTkyndffOWIINPCRMH8897-87-70 23:00:00 Test Item Value Reference Range Interpretation Comments Eosinophils # (test code 0.2 See_Comment [A utomated message] The = Eosinophils #) system whic h generated this result tra nsmitted reference range : <=0.5. The reference r rob was not used to int erpret this result as normal/abnormal . [facility] HospitalZtnnglzQTHIMMYJGQ1915-33-13 23:00:00 Test Item Value Reference Range Interpretation Comments Basophils # (test code 0.0 See_Comment [Aut omated message] The = Basophils #) system which generated this result tra nsmitted reference range : <=0.2. The reference r rob was not used to int erpret this result as normal/abnormal . [facility] HospitalZkwmyplKQATCPCAHP2976-38-05 23:00:00 Test Item Value Reference Range Interpretation Comments Monocytes # (test code 0.6 See_Comment [Aut omated message] The = Monocytes #) system which generated this result tra nsmitted reference range : <=0.8. The reference r rob was not used to int erpret this result as normal/abnormal . [facility] HospitalBligitjBKPXMQCQPN0482-58-85 23:00:00 Test Item Value Reference Range Interpretation Comments Lymphocytes (test code = Lymphocytes) 19.2 20.0-40.0 [facility] HospitalRolstrlQAMFFYUBWL7121-18-39 23:00:00 Test Item Value Reference Range Interpretation Comments Monocytes (test code = Monocytes) 8.0 2.0-12.0 [facility] HospitalYkgnxusKSBPFYPFXX3274-39-33 23:00:00 Test Item Value Reference Range Interpretation Comments Lymphocytes # (test code = Lymphocytes 1.3 1.0-5.5 #) [facility] HospitalSvbpwodQNAQUORSOI4202-47-88 23:00:00 Test Item Value Reference Range Interpretation Comments Segs (test code = Segs) 70.1 45.0-75.0 [facility]2015-06-08 21:45:00 Test Item Value Reference Range Interpretation Comments UA Urobilinogen (test code = UA <=1.0 mg/dL 0.1-1.0 Urobilinogen) [facility]2015-06-08 21:45:00 Test Item Value Reference Range Interpretation Comments UA Blood (test code = Negative (02/18/15 4:45 UA Blood) PM) [facility]2015-06-08 21:45:00 Test Item Value Reference Range Interpretation Comments UA Nitrite (test code Negative (02/18/15 4:45 = UA Nitrite) PM) [facility] [id number] 21:45:00 Test Item Value Reference Range Interpretation Comments UA Glucose (test code = UA >=1000 mg/dL Glucose) [facility]2015-06-08 21:45:00 Test Item Value Reference Range Interpretation Comments UA Bili (test code = Negative *NA*(02/18/15 UA Bili) 4:45 PM) [facility]2015-06-08 21:45:00 Test Item Value Reference Range Interpretation Comments UA Ketones (test code = UA Negative mg/dL Ketones) [facility] [id number] 21:45:00 Test Item Value Reference Range Interpretation Comments UA WBC (test code = no gt See_Comment [Automa gustavo message] The UA WBC) system which ge nerated this result transmit gustavo reference range : <=5. The reference range was not used to interpr et this result as layton l/abnormal. [facility] [id number] 21:45:00 Test Item Value Reference Range Interpretation Comments UA Leuk Est (test Negative (02/18/15 4:45 code = UA Leuk Est) PM) [facility] [id number] 21:45:00 Test Item Value Reference Range Interpretation Comments UA Sq Epi (test code = UA Sq Moderate /LPF Epi) [facility] [id number] 21:45:00 Test Item Value Reference Range Interpretation Comments UA Protein (test code = UA Protein) 20 mg/dL [facility] [id number] 21:45:00 Test Item Value Reference Range Interpretation Comments UA Turbidity (test code Slight *ABN*(02/18/15 = UA Turbidity) 4:45 PM) [facility] [id number] 21:45:00 Test Item Value Reference Range Interpretation Comments UA Color (test code = Yellow *NA*(02/18/15 4:45 UA Color) PM) [facility] [id number] 21:45:00 Test Item Value Reference Range Interpretation Comments UA Spec Grav (test code = UA Spec Grav) 1.017 [facility] [id number] 21:45:00 Test Item Value Reference Range Interpretation Comments UA pH (test code = UA pH) 8.0 5.0-8.0 [facility] [id number] 21:45:00 Test Item Value Reference Range Interpretation Comments UA Urobilinogen (test code = UA <=1.0 mg/dL 0.1-1.0 Urobilinogen) [facility] [id number] 21:45:00 Test Item Value Reference Range Interpretation Comments UA Blood (test code = Negative (02/18/15 4:45 UA Blood) PM) [facility] [id number] 21:45:00 Test Item Value Reference Range Interpretation Comments UA Nitrite (test code Negative (02/18/15 4:45 = UA Nitrite) PM) [facility] [id number] 21:45:00 Test Item Value Reference Range Interpretation Comments UA Glucose (test code = UA >=1000 mg/dL Glucose) [facility] [id number] 21:45:00 Test Item Value Reference Range Interpretation Comments UA Bili (test code = Negative *NA*(02/18/15 UA Bili) 4:45 PM) [facility] [id number] 21:45:00 Test Item Value Reference Range Interpretation Comments UA Ketones (test code = UA Negative mg/dL Ketones) [facility] [id number] 21:45:00 Test Item Value Reference Range Interpretation Comments UA WBC (test code = no gt See_Comment [Automa gustavo message] The UA WBC) system which ge nerated this result transmit gustavo reference range : <=5. The reference range was not used to interpr et this result as layton l/abnormal. [facility] [id number] 21:45:00 Test Item Value Reference Range Interpretation Comments UA Leuk Est (test Negative (02/18/15 4:45 code = UA Leuk Est) PM) [facility] [id number] 21:45:00 Test Item Value Reference Range Interpretation Comments UA Sq Epi (test code = UA Sq Moderate /LPF Epi) [facility] [id number] 21:45:00 Test Item Value Reference Range Interpretation Comments UA Protein (test code = UA Protein) 20 mg/dL [facility] [id number] 21:45:00 Test Item Value Reference Range Interpretation Comments UA Turbidity (test code Slight *ABN*(02/18/15 = UA Turbidity) 4:45 PM) [facility] [id number] 21:45:00 Test Item Value Reference Range Interpretation Comments UA Color (test code = Yellow *NA*(02/18/15 4:45 UA Color) PM) [facility] [id number] 21:45:00 Test Item Value Reference Range Interpretation Comments UA Spec Grav (test code = UA Spec Grav) 1.017 [facility] [id number] 21:45:00 Test Item Value Reference Range Interpretation Comments UA pH (test code = UA pH) 8.0 5.0-8.0 [facility] [id number] 21:45:00 Test Item Value Reference Range Interpretation Comments UA Urobilinogen (test code = UA <=1.0 mg/dL 0.1-1.0 Urobilinogen) [facility] [id number] 21:45:00 Test Item Value Reference Range Interpretation Comments UA Blood (test code = Negative (02/18/15 4:45 UA Blood) PM) [facility] [id number] 21:45:00 Test Item Value Reference Range Interpretation Comments UA Nitrite (test code Negative (02/18/15 4:45 = UA Nitrite) PM) [facility] [id number] 21:45:00 Test Item Value Reference Range Interpretation Comments UA Glucose (test code = UA >=1000 mg/dL Glucose) [facility] [id number] 21:45:00 Test Item Value Reference Range Interpretation Comments UA Bili (test code = Negative *NA*(02/18/15 UA Bili) 4:45 PM) [facility] [id number] 21:45:00 Test Item Value Reference Range Interpretation Comments UA Ketones (test code = UA Negative mg/dL Ketones) [facility] [id number] 21:45:00 Test Item Value Reference Range Interpretation Comments UA WBC (test code = no gt See_Comment [Automa gustavo message] The UA WBC) system which ge nerated this result transmit gustavo reference range : <=5. The reference range was not used to interpr et this result as layton l/abnormal. [facility] [id number] 21:45:00 Test Item Value Reference Range Interpretation Comments UA Leuk Est (test Negative (02/18/15 4:45 code = UA Leuk Est) PM) [facility] [id number] 21:45:00 Test Item Value Reference Range Interpretation Comments UA Sq Epi (test code = UA Sq Moderate /LPF Epi) [facility] [id number] 21:45:00 Test Item Value Reference Range Interpretation Comments UA Protein (test code = UA Protein) 20 mg/dL [facility] [id number] 21:45:00 Test Item Value Reference Range Interpretation Comments UA Turbidity (test code Slight *ABN*(02/18/15 = UA Turbidity) 4:45 PM) [facility] [id number] 21:45:00 Test Item Value Reference Range Interpretation Comments UA Color (test code = Yellow *NA*(02/18/15 4:45 UA Color) PM) [facility] [id number] 21:45:00 Test Item Value Reference Range Interpretation Comments UA Spec Grav (test code = UA Spec Grav) 1.017 [facility] [id number] 21:45:00 Test Item Value Reference Range Interpretation Comments UA pH (test code = UA pH) 8.0 5.0-8.0 [facility] [id number] 21:45:00 Test Item Value Reference Range Interpretation Comments UA Urobilinogen (test code = UA <=1.0 mg/dL 0.1-1.0 Urobilinogen) [facility] [id number] 21:45:00 Test Item Value Reference Range Interpretation Comments UA Blood (test code = Negative (02/18/15 4:45 UA Blood) PM) [facility] [id number] 21:45:00 Test Item Value Reference Range Interpretation Comments UA Nitrite (test code Negative (02/18/15 4:45 = UA Nitrite) PM) [facility] [id number] 21:45:00 Test Item Value Reference Range Interpretation Comments UA Glucose (test code = UA >=1000 mg/dL Glucose) [facility] [id number] 21:45:00 Test Item Value Reference Range Interpretation Comments UA Bili (test code = Negative *NA*(02/18/15 UA Bili) 4:45 PM) [facility] [id number] 21:45:00 Test Item Value Reference Range Interpretation Comments UA Ketones (test code = UA Negative mg/dL Ketones) [facility] [id number] 21:45:00 Test Item Value Reference Range Interpretation Comments UA WBC (test code = no gt See_Comment [Automa gustavo message] The UA WBC) system which ge nerated this result transmit gustavo reference range : <=5. The reference range was not used to interpr et this result as layton l/abnormal. [facility] [id number] 21:45:00 Test Item Value Reference Range Interpretation Comments UA Leuk Est (test Negative (02/18/15 4:45 code = UA Leuk Est) PM) [facility] [id number] 21:45:00 Test Item Value Reference Range Interpretation Comments UA Sq Epi (test code = UA Sq Moderate /LPF Epi) [facility] [id number] 21:45:00 Test Item Value Reference Range Interpretation Comments UA Protein (test code = UA Protein) 20 mg/dL [facility] [id number] 21:45:00 Test Item Value Reference Range Interpretation Comments UA Turbidity (test code Slight *ABN*(02/18/15 = UA Turbidity) 4:45 PM) [facility] [id number] 21:45:00 Test Item Value Reference Range Interpretation Comments UA Color (test code = Yellow *NA*(02/18/15 4:45 UA Color) PM) [facility] [id number] 21:45:00 Test Item Value Reference Range Interpretation Comments UA Spec Grav (test code = UA Spec Grav) 1.017 [facility] [id number] 21:45:00 Test Item Value Reference Range Interpretation Comments UA pH (test code = UA pH) 8.0 5.0-8.0 [facility] [id number] 21:45:00 Test Item Value Reference Range Interpretation Comments UA Urobilinogen (test code = UA <=1.0 mg/dL 0.1-1.0 Urobilinogen) [facility] [id number] 21:45:00 Test Item Value Reference Range Interpretation Comments UA Blood (test code = Negative (02/18/15 4:45 UA Blood) PM) [facility] [id number] 21:45:00 Test Item Value Reference Range Interpretation Comments UA Nitrite (test code Negative (02/18/15 4:45 = UA Nitrite) PM) [facility] [id number] 21:45:00 Test Item Value Reference Range Interpretation Comments UA Glucose (test code = UA >=1000 mg/dL Glucose) [facility] [id number] 21:45:00 Test Item Value Reference Range Interpretation Comments UA Bili (test code = Negative *NA*(02/18/15 UA Bili) 4:45 PM) [facility] [id number] 21:45:00 Test Item Value Reference Range Interpretation Comments UA Ketones (test code = UA Negative mg/dL Ketones) [facility] [id number] 21:45:00 Test Item Value Reference Range Interpretation Comments UA WBC (test code = no gt See_Comment [Automa gustavo message] The UA WBC) system which ge nerated this result transmit gustavo reference range : <=5. The reference range was not used to interpr et this result as layton l/abnormal. [facility] [id number] 21:45:00 Test Item Value Reference Range Interpretation Comments UA Leuk Est (test Negative (02/18/15 4:45 code = UA Leuk Est) PM) [facility] [id number] 21:45:00 Test Item Value Reference Range Interpretation Comments UA Sq Epi (test code = UA Sq Moderate /LPF Epi) [facility] [id number] 21:45:00 Test Item Value Reference Range Interpretation Comments UA Protein (test code = UA Protein) 20 mg/dL [facility] [id number] 21:45:00 Test Item Value Reference Range Interpretation Comments UA Turbidity (test code Slight *ABN*(02/18/15 = UA Turbidity) 4:45 PM) [facility] [id number] 21:45:00 Test Item Value Reference Range Interpretation Comments UA Color (test code = Yellow *NA*(02/18/15 4:45 UA Color) PM) [facility] [id number] 21:45:00 Test Item Value Reference Range Interpretation Comments UA Spec Grav (test code = UA Spec Grav) 1.017 [facility] [id number] 21:45:00 Test Item Value Reference Range Interpretation Comments UA pH (test code = UA pH) 8.0 5.0-8.0 [facility] [id number] 21:45:00 Test Item Value Reference Range Interpretation Comments UA Urobilinogen (test code = UA <=1.0 mg/dL 0.1-1.0 Urobilinogen) [facility] [id number] 21:45:00 Test Item Value Reference Range Interpretation Comments UA Blood (test code = Negative (02/18/15 4:45 UA Blood) PM) [facility] [id number] 21:45:00 Test Item Value Reference Range Interpretation Comments UA Nitrite (test code Negative (02/18/15 4:45 = UA Nitrite) PM) [facility] [id number] 21:45:00 Test Item Value Reference Range Interpretation Comments UA Glucose (test code = UA >=1000 mg/dL Glucose) [facility] [id number] 21:45:00 Test Item Value Reference Range Interpretation Comments UA Bili (test code = Negative *NA*(02/18/15 UA Bili) 4:45 PM) [facility] [id number] 21:45:00 Test Item Value Reference Range Interpretation Comments UA Ketones (test code = UA Negative mg/dL Ketones) [facility] [id number] 21:45:00 Test Item Value Reference Range Interpretation Comments UA WBC (test code = no gt See_Comment [Automa gustavo message] The UA WBC) system which ge nerated this result transmit gustavo reference range : <=5. The reference range was not used to interpr et this result as layton l/abnormal. [facility] [id number] 21:45:00 Test Item Value Reference Range Interpretation Comments UA Leuk Est (test Negative (02/18/15 4:45 code = UA Leuk Est) PM) [facility] [id number] 21:45:00 Test Item Value Reference Range Interpretation Comments UA Sq Epi (test code = UA Sq Moderate /LPF Epi) [facility] [id number] 21:45:00 Test Item Value Reference Range Interpretation Comments UA Protein (test code = UA Protein) 20 mg/dL [facility] [id number] 21:45:00 Test Item Value Reference Range Interpretation Comments UA Turbidity (test code Slight *ABN*(02/18/15 = UA Turbidity) 4:45 PM) [facility] [id number] 21:45:00 Test Item Value Reference Range Interpretation Comments UA Color (test code = Yellow *NA*(02/18/15 4:45 UA Color) PM) [facility] [id number] 21:45:00 Test Item Value Reference Range Interpretation Comments UA Spec Grav (test code = UA Spec Grav) 1.017 [facility] [id number] 21:45:00 Test Item Value Reference Range Interpretation Comments UA pH (test code = UA pH) 8.0 5.0-8.0 [facility] [id number] 21:45:00 Test Item Value Reference Range Interpretation Comments UA Urobilinogen (test code = UA <=1.0 mg/dL 0.1-1.0 Urobilinogen) [facility] [id number] 21:45:00 Test Item Value Reference Range Interpretation Comments UA Blood (test code = Negative (02/18/15 4:45 UA Blood) PM) [facility] [id number] 21:45:00 Test Item Value Reference Range Interpretation Comments UA Nitrite (test code Negative (02/18/15 4:45 = UA Nitrite) PM) [facility] [id number] 21:45:00 Test Item Value Reference Range Interpretation Comments UA Glucose (test code = UA >=1000 mg/dL Glucose) [facility] [id number] 21:45:00 Test Item Value Reference Range Interpretation Comments UA Bili (test code = Negative *NA*(02/18/15 UA Bili) 4:45 PM) [facility] [id number] 21:45:00 Test Item Value Reference Range Interpretation Comments UA Ketones (test code = UA Negative mg/dL Ketones) [facility] [id number] 21:45:00 Test Item Value Reference Range Interpretation Comments UA WBC (test code = no gt See_Comment [Automa gustavo message] The UA WBC) system which ge nerated this result transmit gustavo reference range : <=5. The reference range was not used to interpr et this result as layton l/abnormal. [facility] [id number] 21:45:00 Test Item Value Reference Range Interpretation Comments UA Leuk Est (test Negative (02/18/15 4:45 code = UA Leuk Est) PM) [facility] [id number] 21:45:00 Test Item Value Reference Range Interpretation Comments UA Sq Epi (test code = UA Sq Moderate /LPF Epi) [facility] [id number] 21:45:00 Test Item Value Reference Range Interpretation Comments UA Protein (test code = UA Protein) 20 mg/dL [facility] [id number] 21:45:00 Test Item Value Reference Range Interpretation Comments UA Turbidity (test code Slight *ABN*(02/18/15 = UA Turbidity) 4:45 PM) [facility] [id number] 21:45:00 Test Item Value Reference Range Interpretation Comments UA Color (test code = Yellow *NA*(02/18/15 4:45 UA Color) PM) [facility] [id number] 21:45:00 Test Item Value Reference Range Interpretation Comments UA Spec Grav (test code = UA Spec Grav) 1.017 [facility] [id number] 21:45:00 Test Item Value Reference Range Interpretation Comments UA pH (test code = UA pH) 8.0 5.0-8.0 [facility] Notes Date/Time Note Provider Source 2016-04-01 15:30:00-00:00 EXAM: NM Hepatobiliary Imagi ng with Pharm Intervention DOUGIE Hilliard DATE: 04/01/2016 INDICATION: 76-year-old female para quadrant nery n and gallstone TECHNIQUE: After the intrave nous administration of 5.8 mCi of technetium 99m Choletec, dynamic blood flow images followed by sequential static images through 60 minutes were obtained. Subsequently CCK w as administered intravenousl y over 3 minutes and additional images were obtained for another 30 minutes. FINDINGS: There is good tracer uptake in the liver with homogeneous distribution. The liver appears normal in size and shape. There is excretion of tracer into the extrahepatic biliary tree, bowel, and timely vis ualization of the gallbladde r, however the liver displays incomplete excretion during the time frame of the study due to poor liver function. There is adequate response of the gallbladder to CCK stimula tion with a calculated gallb ladder ejection fraction of 35 % (normal is greater than 35%). IMPRESSION: 1. Patent cystic and common bile ducts excluding acute cholecystitis. 2. Normal gallbladder function. 3. Poor liver function with slow excretion of tr acer. 2016-04-01 15:30:00-00:00 EXAM: NM Hepatobiliary Imagi ng with Pharm Intervention DOUGIE Hilliard DATE: 04/01/2016 INDICATION: 76-year-old female para quadrant nery n and gallstone TECHNIQUE: After the intrave nous administration of 5.8 mCi of technetium 99m Choletec, dynamic blood flow images followed by sequential static images through 60 minutes were obtained. Subsequently CCK w as administered intravenousl y over 3 minutes and additional images were obtained for another 30 minutes. FINDINGS: There is good tracer uptake in the liver with homogeneous distribution. The liver appears normal in size and shape. There is excretion of tracer into the extrahepatic biliary tree, bowel, and timely vis ualization of the gallbladde r, however the liver displays incomplete excretion during the time frame of the study due to poor liver function. There is adequate response of the gallbladder to CCK stimula tion with a calculated gallb ladder ejection fraction of 35 % (normal is greater than 35%).
[2023-03-16 13:41] LABS: Absolute Lymphocytes (CBC) 0.8 K/uL (0.7-4.9); Hematocrit 40.9 % (36.0-45.0); Lymphocytes % 14.3 % (15.3-44.8); MCV 88.8 fL (80-100); MPV 7.6 fL (7.6-11.3); RBC Red Blood Cell Count 4.61 M/uL (3.86-4.86)
[2023-03-16 13:58] LABS: Albumin 3.3 g/dL (3.4-5.0); Bilirubin Direct 0.2 mg/dL (0-0.2); Bilirubin Indirect, Calculated 0.5 mg/dL (0.2-0.8); Bilirubin Total 0.7 mg/dL (0.2-1.0); Magnesium 2.1 mg/dL (1.6-2.4); Protein, Total 7.2 g/dL (6.4-8.2); Troponin High Sensitivity 6.2 pg/mL (<58.9)
--- NOTE | 2023-03-16 14:12 | RAD REPORT ---
EXAM DESCRIPTION: [facility] 1:31 pm CLINICAL HISTORY: arm pain COMPARISON: Chest Single View dated 01/27/2023hest Single View dated 01/27/2023 TECHNIQUE: Portable AP view of the chest. FINDINGS: The lungs show right basilar streaky opacities, could reflect atelectasis or early airspac e disease. Decreased inspiratory effort limits evaluation. Stable mild central interstitial prominenc e, could be related to decreased inspiratory effort and crowding versus mild central congestion. No pneumothorax or effusion. The cardiomediastinal contours are unremarkable. IMPRESSION: Right basilar streaky opacities could reflect atelectasis or early airspace disease.
--- NOTE | 2023-03-16 14:41 | ER ---
Nurse's Notes [facility] Name: Patsy Tai Age: 82 yrs Sex: Female : 1940 Arrival Date: 03/16/2023 Time: 12:47 Bed 5 Private MD: Diagnosis: Pain in left arm Presentation: 03/16 13:00 Chief complaint: EMS states: Left arm pain x 2 days, radiates to shoulder, took 2 nitro jl7 with no improvement. Coronavirus screen: At this time, the client does not indicate any symptoms associated with coronavirus-19. Ebola Screen: No symptoms or risks identified at this time. Initial Sepsis Screen: Does the patient meet any 2 criteria? No. Patient's initial sepsis screen is negative. Does the patient have a suspected source of infection? No. Patient's initial sepsis screen is negative. Risk Assessment: Do you want to hurt yourself or someone else? Patient reports no desire to harm self or others. Onset of symptoms was February 11, 2023. Care prior to arrival: Glucose check: 123. 13:00 Method Of Arrival: EMS: [facility] jl7 13:00 Acuity: VALERIA 3 jl7 Triage Assessment: 13:04 General: Appears in no apparent distress. uncomfortable, Behavior is calm, cooperative, jl7 appropriate for age. Pain: Complains of pain in left arm Pain radiates to anterior aspect of left shoulder and posterior aspect of left shoulder Quality of pain is described as aching. Historical: - Allergies: 13:04 Ancef; jl7 13:04 Codeine; jl7 13:04 Darvocet-N 100; jl7 13:04 Darvon; jl7 13:04 Fentanyl; jl7 13:04 Hydrocodone-Acetaminophen; jl7 13:04 Percodan; jl7 13:04 tramadol; jl7 - PMHx: 13:04 Atrial Fib; Diabetes - IDDM; Fibromyalgia; Diabetes mellitus; Congestive heart failure; jl7 Myocardial infarction; - Immunization history:: Adult Immunizations up to date. - Social history:: Smoking status: Patient denies any tobacco usage or history of. - Family history:: not pertinent. Screenin:18 [facility] ED Fall Risk Assessment (Adult) History of falling in the last 3 months, vg1 including since admission No falls in past 3 months (0 pts). Abuse screen: Denies threats or abuse. Denies injuries from another. Nutritional screening: No deficits noted. Tuberculosis screening: No symptoms or risk factors identified. Assessment: 13:35 Reassessment: Patient appears in no apparent distress at this time. Patient and/or db family updated on plan of care and expected duration. Pain level reassessed. Patient is alert, oriented x 3, equal unlabored respirations, skin warm/dry/pink. General: Appears in no apparent distress. comfortable, Behavior is calm, cooperative. 14:17 General: Appears in no apparent distress. uncomfortable, Behavior is cooperative. Pain: vg1 Complains of pain in left arm Pain currently is 6 out of 10 on a pain scale. Pain began 2-3 days ago. Neuro: Level of Consciousness is awake, alert, obeys commands, Oriented to person, place, time, situation. Cardiovascular: Denies chest pain, Patient's skin is warm and dry. Respiratory: Denies shortness of breath. Musculoskeletal: Range of motion: limited in left shoulder. 15:18 Reassessment: Patient appears in no apparent distress at this time. No changes from vg1 previously documented assessment. Patient and/or family updated on plan of care and expected duration. Pain level reassessed. Patient is alert, oriented x 3, equal unlabored respirations, skin warm/dry/pink. Vital Signs: 13:00 BP 130 / 54; Pulse 61; Resp 17; Temp 98.1; Pulse Ox 97% ; Weight 163.29 kg; Height 5 jl7 ft. 5 in. ; Pain 10/10; 13:00 BP 130 / 57; Pulse 59; Resp 18; Pulse Ox 98% on R/A; db 14:18 BP 127 / 51; Pulse 80; Resp 18; Pulse Ox 97% on R/A; vg1 15:19 BP 118 / 83; Pulse 76; Resp 19; Pulse Ox 98% on R/A; vg1 13:00 Body Mass Index 59.91 (163.29 kg, 165.1 cm) jl7 13:00 Pain Scale: Adult jl7 ED Course: 12:50 Patient arrived in ED. em1 12:56 Michele Lopez MD is Attending Physician. rt 13:03 Triage completed. jl7 13:04 Arm band placed on right wrist. EKG completed in triage. Results shown to . jl7 13:30 Inserted saline lock: 20 gauge in right antecubital area, using aseptic technique. db Blood collected. 13:33 XRAY Chest (1 view) In Process Unspecified. EDMS 13:36 Juliane Hernandez, RN is Primary Nurse. vg1 13:46 Report received from Suha MATAMOROS. vg1 15:18 No provider procedures requiring assistance completed. IV discontinued, intact, vg1 bleeding controlled, No redness/swelling at site. Pressure dressing applied. 15:19 Patient has correct armband on for positive identification. vg1 Administered Medications: No medications were administered Medication: 15:19 VIS not applicable for this client. vg1 Outcome: 14:40 Discharge ordered by MD. rt 15:19 Discharged to home via wheelchair. vg1 15:19 Condition: good 15:19 Discharge instructions given to patient, Instructed on discharge instructions, follow up and referral plans. Demonstrated understanding of instructions, follow-up care. 15:19 Patient left the ED. vg1 Signatures: Dispatcher [employer] EDMS Edu Crockett em1 Suha Klein RN RN jl7 Garcia, Victoria, SHILOH MATAMOROS vg1 Suha Osborn, Michele Belle RN, MD MD rt
--- NOTE | 2023-03-16 14:41 | EDPHYS ---
Physician Documentation [facility] Name: Patsy Tai Age: 82 yrs Sex: Female : 1940 Arrival Date: 03/16/2023 Time: 12:47 Bed 5 Private MD: ED Physician Michele Lopez HPI: 03/16 15:16 This 82 yrs old Female presents to ER via EMS with complaints of Arm Pain. rt 15:16 Patient presents to the ED with an atraumatic left arm pain for the past 2 days, rt constant. Is aching in nature, radiates distally. The pain radiates somewhat to the back of the neck. Given the patient's extensive cardiac history, she states that she is concerned that this pain may be referred from her heart is requesting a cardiac work-up. She denies any shortness of breath, chest pain, other symptoms. Symptoms are aching nature, moderate severity, no other aggravating alleviating factors. Historical: - Allergies: 13:04 Ancef; jl7 13:04 Codeine; jl7 13:04 Darvocet-N 100; jl7 13:04 Darvon; jl7 13:04 Fentanyl; jl7 13:04 Hydrocodone-Acetaminophen; jl7 13:04 Percodan; jl7 13:04 tramadol; jl7 - PMHx: 13:04 Atrial Fib; Diabetes - IDDM; Fibromyalgia; Diabetes mellitus; Congestive heart failure; jl7 Myocardial infarction; - Immunization history:: Adult Immunizations up to date. - Social history:: Smoking status: Patient denies any tobacco usage or history of. - Family history:: not pertinent. ROS: 15:16 Constitutional: Negative for fever, chills, and weight loss, Cardiovascular: Negative rt for chest pain, palpitations, and edema, Respiratory: Negative for shortness of breath, cough, wheezing, and pleuritic chest pain, Abdomen/GI: Negative for abdominal pain, nausea, vomiting, diarrhea, and constipation, Skin: Negative for injury, rash, and discoloration, Neuro: Negative for headache, weakness, numbness, tingling, and seizure, Psych: Negative for depression, anxiety, suicide ideation, homicidal ideation, and hallucinations. 15:16 MS/extremity: Positive for pain, Negative for injury or acute deformity. Exam: 15:16 Constitutional: This is a well developed, well nourished patient who is awake, alert, rt and in no acute distress. Head/Face: Normocephalic, atraumatic. Chest/axilla: Normal chest wall appearance and motion. Nontender with no deformity. No lesions are appreciated. Cardiovascular: Regular rate and rhythm with a normal S1 and S2. No gallops, murmurs, or rubs. Normal PMI, no JVD. No pulse deficits. Respiratory: Lungs have equal breath sounds bilaterally, clear to auscultation and percussion. No rales, rhonchi or wheezes noted. No increased work of breathing, no retractions or nasal flaring. Abdomen/GI: Soft, non-tender, with normal bowel sounds. No distension or tympany. No guarding or rebound. No evidence of tenderness throughout. Skin: Warm, dry with normal turgor. Normal color with no rashes, no lesions, and no evidence of cellulitis. Neuro: Awake and alert, GCS 15, oriented to person, place, time, and situation. Cranial nerves II-XII grossly intact. Motor strength 5/5 in all extremities. Sensory grossly intact. Cerebellar exam normal. Normal gait. Psych: Awake, alert, with orientation to person, place and time. Behavior, mood, and affect are within normal limits. 15:16 Musculoskeletal/extremity: Tenderness overlying the left bicep, no deformities noted, full range of motion, pulses, motor, sensation intact. 15:16 ECG was reviewed by the Attending Physician. rt Vital Signs: 13:00 BP 130 / 54; Pulse 61; Resp 17; Temp 98.1; Pulse Ox 97% ; Weight 163.29 kg; Height 5 jl7 ft. 5 in. ; Pain 10/10; 13:00 BP 130 / 57; Pulse 59; Resp 18; Pulse Ox 98% on R/A; db 14:18 BP 127 / 51; Pulse 80; Resp 18; Pulse Ox 97% on R/A; vg1 15:19 BP 118 / 83; Pulse 76; Resp 19; Pulse Ox 98% on R/A; vg1 13:00 Body Mass Index 59.91 (163.29 kg, 165.1 cm) [facility] 13:00 Pain Scale: Adult [facility] MDM: 12:57 Medical screening is not applicable. rt 15:26 Differential diagnosis: Musculoskeletal pain, radicular pain, referred cardiac pain. rt Data reviewed: vital signs, nurses notes, lab test result(s), EKG, radiologic studies. Consideration of Admission/Observation Escalation of care including admission/observation considered. Management of patient was discussed with the following: Hospitalist: . Management of patient was discussed with the following:. I considered the following discharge prescriptions or medication management in the emergency department Medications were administered in the Emergency Department. See MAR. I considered the following discharge prescriptions or medication management in the emergency department. Independent interpretation of the following test(s) in the Emergency Department X-Ray: My interpretation is No consolidation some interpretation of the x-ray images. Test considered but Not performed: CT: . Test considered but Not performed: Test considered but Not performed:. Care significantly affected by the following chronic conditions:. Care significantly affected by the following chronic conditions: Diabetes, Coronary artery disease. Counseling: I had a detailed discussion with the patient and/or guardian regarding: the historical points, exam findings, and any diagnostic results supporting the discharge/admit diagnosis, lab results, radiology results, the need for outpatient follow up, to return to the emergency department if symptoms worsen or persist or if there are any questions or concerns that arise at home. ED course: Given chronicity of symptoms, 1 set of negative troponins are sufficient to rule out acute coronary syndrome. 03/16 12:57 Order name: Basic Metabolic Panel; Complete Time: 14:00 rt 03/16 12:57 Order name: CBC with Diff; Complete Time: 14:00 rt 03/16 12:57 Order name: LFT's; Complete Time: 14:00 rt 03/16 12:57 Order name: Magnesium; Complete Time: 14:00 rt 03/16 12:57 Order name: NT PRO-BNP; Complete Time: 14:00 rt 03/16 12:57 Order name: Troponin HS; Complete Time: 14:00 rt 03/16 12:57 Order name: XRAY Chest (1 view); Complete Time: 14:14 rt 03/16 12:57 Order name: Cardiac monitoring; Complete Time: 13:14 rt 03/16 12:57 Order name: EKG - Nurse/Tech; Complete Time: 13:14 rt 03/16 12:57 Order name: IV Saline Lock; Complete Time: 13:35 rt 03/16 12:57 Order name: Labs collected and sent; Complete Time: 13:35 rt 03/16 12:57 Order name: O2 Per Protocol; Complete Time: 13:35 rt 03/16 12:57 Order name: O2 Sat Monitoring; Complete Time: 13:35 rt EC:16 Rate is 62 beats/min. Rhythm is regular, 1st Degree Block with No ectopy. Left axis rt deviation noted. OH interval is normal. QRS interval is normal. QT interval is normal. No Q waves. Clinical impression: NSR w/ Non-specific ST/T Changes. Administered Medications: No medications were administered Disposition Summary: 03/16/23 14:40 Discharge Ordered Location: Home rt Problem: new rt Symptoms: are unchanged rt Condition: Stable rt Diagnosis - Pain in left arm rt Followup: rt - With: Private Physician - When: 2 - 3 days - Reason: Discharge Instructions: - Discharge Summary Sheet rt - Musculoskeletal Pain rt Forms: - Medication Reconciliation Form rt - Thank You Letter rt - Antibiotic Education rt - Prescription Opioid Use rt - [email or web address] rt Signatures: Dispatcher [employer] Suha Mitchell, RN RN jl7 Michele Lopez MD MD rt
[2023-03-16 15:41] VITALS: TEMP 98.1
[2023-03-16 15:48] VITALS: BP 118/83; O2SAT 98
--- NOTE | 2023-03-17 12:31 | EKG ---
Test Date: 2023-03-16 Test Time: 12:52:00 Piecer Up: KHADRA MEASUREMENT RESULTS: Intervals: Rate: 62 [place]: 240 QRSD: 84 QT: 434 QTc: 440 Clyde: P: 3 AZ: 240 QRS: -52 T: 87 INTERPRETIVE STATEMENTS: Sinus rhythm with 1st degree AV block Left axis deviation Low voltage QRS Possible Anterolateral infarct, age undetermined Abnormal ECG Compared to ECG 01/27/2023 23:14:08 No significant changes Electronically Signed On 03-17-23 12:30:04 CDT by Madhu Shaw
== END 2023-03-16 15:19 | disposition home or self-care (01) ==
LOC: ER 12:47
DX: M79.602 Pain in left arm (principal); I50.9 Heart failure, unspecified; I48.91 Unspecified atrial fibrillation; Z88.1 Allergy status to other antibiotic agents; Z88.5 Allergy status to narcotic agent; Z88.8 Allergy status to other drugs, medicaments and biological substances
CPT/HCPCS: 36415; 71045; 80048; 80076; 83735; 83880; 84484; 85025; 93005; 99284

== ENCOUNTER 2023-07-16 14:39 | Emergency (ER) | payer OTHER ==
--- OUTSIDE RECORDS SUMMARY | 2023-07-16 15:02 | XMS REPORT | Continuity of Care Document ---
:1940 Author Organization [facility] Address [address] [place] [address] Care Team Providers Name Role Phone LEROY PENALOZA Primary Care Physician Unavailable ELIZABETH_GCBZW_Ade_Jose Attending Clinician Unavailable Arash Attending Clinician Unavailable Josselyn Bates Cardiology Attending Clinician Unavailable Criss Mckinney MD Attending Clinician CRISS MCKINNEY Attending Clinician Unavailable Natalya_GISELEU Attending Clinician Unavailable Layne Attending Clinician Unavailable Steven CAST, Darío Attending Clinician Man Cuellar MD Attending Clinician MICHELLE YEE Attending Clinician Unavailable KAREN HURST Attending Clinician Unavailable DES GEORGE Attending Clinician Unavailable Randi_Luiz Attending Clinician Unavailable PETE KILGORE Attending Clinician Unavailable EARL GALINDO Attending Clinician Unavailable VEDA WOOTEN Attending Clinician Unavailable Physician, Non Associated Attending Clinician Unavailable Dorie Mcneill Attending Clinician GC_GCBZW_Kadiesteea_S Admitting Clinician Unavailable Arash Admitting Clinician Unavailable Josselyn Bates Cardiology Admitting Clinician Unavailable CRISS MCKINNEY Admitting Clinician Unavailable Villasacristo_T_DNU Admitting Clinician Unavailable Bernstein_H Admitting Clinician Unavailable MAN CUELLAR Admitting Clinician Unavailable KAREN HURST Admitting Clinician Unavailable Abreu_A Admitting Clinician Unavailable EARL GALINDO Admitting Clinician Unavailable Payers Payer Name Policy Type Policy Number Effective Date Expiration Date Jose aviles [place]ICARE B-[place]: [id number] 2003 [employer] 00:00:00 FOR LIFE [id number] () WPS - FOR [id number] LIFE (MEDICARE SUPPLEMENT) Problems Condition Condition Condition Status Onset Resolution Last Treating Co mments Source Name Details Category Date Date Treatment Clinician Date Morbid Morbid Disease Active Univers obesity obesity 5-03 ity of 00:00: [place] [facility] Senile Senile Problem Active Village purpura Purpura 3-17 Family 00:00: Practic 00 e Stable Stable Problem Active [facility] angina Angina 3-17 Family 00:00: Practic 00 e Diabetes 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 4-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, type 2, 00:00: Hospita [...] Active V illage of lower of Lower 8-29 Family limb Limb 00:00: Practic 00 e Lymphedema Lymphedema Problem Active [facility] ill[facility] 7-20 Family 00:00: Practic 00 e Dystrophia Dystrophia Problem Active [facility] unguium Unguium 04-01 Family 00:00: Practic 00 e R16.0 - R16.0 - Diagnosis Active 2016-05-11 Memoria "HEPATOMEG "HEPATOMEG 03-20 12:55:00 l SOCORRO, NOT SOCORRO, NOT 00:01: Alan n ELSEWHERE ELSEWHERE 00 CL" CL" Active 03/20/2016 ELADIA Hilliard URINARY URINARY Diagnosis Active 2015-02-18 Memoria PROBLEMS PROBLEMS 02-18 18:24:00 l Active 00:00: Bruce 02/18/2015 00 [facility] Coronary Coronary Problem Active Ferrari ge arterioscl Arterioscl 07 Rebecca resendiz erosis in erosis in 00:00: Prac tic osage [place] 00 e artery Artery Congestive Congestive Problem [...] Branch Type 2 Type 2 Problem Active [facility] diabetes Diabetes 8-13 Family mellitus Mellitus 00:00: Practi c with with 00 e peripheral Peripheral angiopathy Angiopathy Hypothyroi Hypothyroi Problem Active [facility] illage dism dism 05-25 Family 00:00: Practic 00 e Polyneurop Polyneurop Problem Active [facility] athy due athy Due 05-22 Family to to 00:00: Practic diabetes Diabetes 00 e mellitus Mellitus Pure Pure Problem Active [facility] hyperchole Hyperchole 05-22 Rebecca resendiz sterolemia sterolemia 00:00: Pr actic 00 e Restless Restless Problem Active [facility] ge legs Legs 05-22 Family 00:00: Practic 00 e Benign Benign Problem Active [facility] essential Essential 05-22 Fami ly hypertensi Hypertensi 00:00: Pr actic on on 00 e Sleep Sleep Problem Active [facility] apnea Apnea 05-22 Family 00:00: Practic 00 e Pneumonia Pneumonia Problem Resolve 2016-04-04 Memoria (disorder) (disorder) d 00:53:24 l Resolved Bruce Problem 04/04/2016 Steve Andino [facility] Diabetes Diabetes Problem Active 2018-08-11 Memoria mellitus mellitus 03:05:59 l type II type II [place] Active Problem 08/11/2018 [facility] Angina Angina Problem Active 2018-08-11 William masoud pectoris pectoris 03:05:59 l NOS NOS Active Alan n Problem 08/11/2018 [facility] OBESITY OBESITY Problem Active 2018-08-11 Me moria NOS NOS Active 03:05:59 l Problem [place] 08/11/2018 [facility] Coronary Coronary Problem Active 2018-08-11 Memoria atheroscle atheroscle 03:05:59 l rosis of rosis of Alan n osage osage vessel vessel Active Problem 08/11/2018 [facility] [...] Heart Care Morbid Morbid Problem Active 2018-08-11 Mem oria obesity, obesity, 03:05:59 l unspecifie unspecifie He rmann d obesity d obesity type type Active Problem 08/11/2018 [facility] 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 Alan n Active Problem 08/11/2018 [facility] Atheroscle Atheroscl Problem Active 2018-08-11 Memoria rotic erotic 03:05:59 l heart heart [place] disease of disease of osage osage coronary coronary artery artery with with angina angina pectoris pectoris Active Problem 08/11/2018 [facility] Edema Edema Problem Active 2018-08-11 Memor ia Active 03:05:59 l Problem Bruce 08/11/2018 [facility] Obesity Obesity Problem Active 2018-08-11 Me moria Active 03:05:59 l Problem [place] 08/11/2018 [facility] Atheroscle Problem Active 2018-08-11 M [place] rotic Atheroscle 03:05:59 l heart rotic Bruce disease of heart osage disease of coronary osage artery coronary without artery angina without pectoris angina pectoris Active Problem 08/11/2018 [facility] Venous Venous Problem Active 2018-08-11 Mem oria insufficie insufficie 03:05:59 l ncy ncy Active Alan n Problem 08/11/2018 [facility] Hyperlipem Hyperlipe Problem Active 2018-08-11 Memoria ia lizbeth Active 03:05:59 l Problem [place] 08/11/2018 [facility] Cardiac Cardiac Problem Active 2018-08-11 Me moria arrhythmia arrhythmia 03:05:59 l NOS NOS Active Alan n Problem 08/11/2018 [facility] ABN BLOOD ABN BLOOD Problem Active 2018-08-11 Memoria CHEMISTRY CHEMISTRY 03:05:59 l NEC NEC Active Alan n Problem 08/11/2018 [facility] Other Other Problem Active 2018-08-11 Memor ia hyperlipid hyperlipid 03:05:59 l emia emia [place] Active Problem 08/11/2018 [facility] Shortness Shortness Problem Active 2018-08-11 Memoria of breath of breath 03:05:59 l Active [place] Problem 08/11/2018 [facility] Encounter Problem Active 2018-08-11 Me moria for Encounter 03:05:59 l preprocedu for Alan n ral preprocedu cardiovasc ral ular cardiovasc examinatio ular n examinatio n Active Problem 08/11/2018 [facility] [...] William masoud obesity obesity 03:05:59 l Active [place] Problem 08/11/2018 [facility] Pain in Pain in Problem Active 2018-08-11 Me moria limb limb 03:05:59 l Active Bruce Problem 08/11/2018 [facility] Venous Venous Problem Active 2018-08-11 William masoud (periphera (periphera 03:05:59 l l) l) Bruce insufficie insufficie ncy, ncy, unspecifie unspecifie d d Active Problem 08/11/2018 [facility] Cellulitis Celluliti Problem Active 2018-08-11 Memoria leg s leg 03:05:59 l Active Bruce Problem 08/11/2018 [facility] Urinary Urinary Problem Active 2018-08-11 Me moria Tract Tract 03:05:59 l Infection Infection Herm ina NOS NOS Active Problem 08/11/2018 [facility] ATH EXT ATH EXT Problem Active 2018-08-11 Me moria NTV AT W NTV AT W 03:05:59 l CLAUDCT CLAUDCT Bruce Active Problem 08/11/2018 [facility] Urinary Urinary Problem Active 2018-08-11 Me moria frequency frequency 03:05:59 l Active [place] Problem 08/11/2018 [facility] Generalize Problem Active 2018-08-11 M emoria d muscle Generalize 03:05:59 l ache d muscle Bruce ache Active Problem 08/11/2018 [facility] Body [...] Category Date Date Treatment Clinician Date Discharge Problem 2015-02-21 2015-02-21 Memoria Diagnosis: Discharge 02-18 06:03:23 06:03:23 l CHF Diagnosis: 05:00: Alan montes (congestiv CHF 00 e heart (congestiv failure) e heart failure) 02/18/2015 02/21/2015 [facility] Allergies, Adverse Reactions, Alerts Allergy Allergy Status Severity Reaction(s) Onset Inactive Treating Comm ents Source Name Type Date Date Clinician Doxycycl Drug Active Other - See Uni vers ine Allergy comments 01-13 ity of 00:00: [place] 00 [facility] DOXYCYCL DRUG Active Med Other-Cmnt Univ ers INE INGREDI 5-03 ity of 00:00: [place] 00 [facility] Tramadol Propensi Active GI 2019- Nausea Method i ty to Intolerance 2-[address] adverse 00:00: vomiting. Hospit a reaction 00 Patient l s to states drug she can tolerate low dose Demerol (Meperidi ne) and tylenol for pain managemen t Cefazoli Propensi Active GI 2019- Nausea Method i n ty to Intolerance 2-[address] adverse 00:00: vomiting. Hospit a reaction 00 She l s to reports drug she can tolerate taken with zofran (Ondanset martha) Propoxyp Propensi Active GI Nausea Method i hene ty to Intolerance 2-[address] adverse 00:00: vomiting. Hospit a reaction 00 Patient l s to states drug she can tolerate low dose Demerol (Meperidi ne) and tylenol for pain managemen t Fentanyl Propensi Active GI Nausea Method i ty to Intolerance 2-[address] adverse 00:00: vomiting. Hospit a reaction 00 Patient l s to states drug she can tolerate low dose Demerol (Meperidi ne) and tylenol for pain managemen t Hydrocod Propensi Active GI Nausea Method i one ty to Intolerance 2-[address] adverse 00:00: vomiting. Hospit a reaction 00 Patient l s to states drug she can tolerate low dose Demerol (Meperidi ne) and tylenol for pain managemen t Oxycodon Propensi Active GI Nausea Method i e ty to Intolerance 2-[address] adverse 00:00: vomiting. Hospit a reaction 00 Patient l s to states drug she can tolerate low dose Demerol (Meperidi ne) and tylenol for pain managemen t Statins- Propensi Active Other (See Muscle Me thodi Hmg-Coa ty to Comments) 2-[address] Reductas adverse 00:00: aches and Hosp rick e reaction 00 cramps l Inhibito s to rs drug STATINS- Drug Active Other-Cmnt Univ ers HMG-COA Class 2-04 ity of REDUCTAS 00:00: [place] E 00 Medical INHIBITO Branch RS Hydrocod Propensi Active Nausea Nausea Univer s one ty to and/or 2-04 and ity of adverse Vomiting 00:00[place]. [place] reaction 00 Patient Medical s states Branch she can tolerate low dose Demerol (Meperidi ne) and tylenol for pain managemen t Oxycodon Propensi Active Nausea Nausea Univer s e ty to and/or [...] HYDROCOD DRUG Active N/V Univers ONE INGREDI 2 ity of 00:00: Medical Branch OXYCODON DRUG [...] (See Possible Me thodi ty to Comments) 1-18 allergy, st adverse 00:00: pt not Hospita reaction 00 sure. l s to drug Iodine Propensi Active Other - See Possible U nivers ty to comments 1-18 allergy, ity of adverse 00:00: pt not [place] reaction 00 sure. Medical s Branch IODINE DRUG Active Other-Cmnt Univer s INGREDI 1-18 ity of 00:00: Medical Branch Darvocet Darvocet Active Info Not William masoud Available 03-21 l 00:00: [place] 00 ACETAMIN Allergy Active [facility] OPHEN to 05-25 Family substanc 00:00: Practic e 00 e CEFAZOLI Allergy Active [facility] N SODIUM to 05-25 Family substanc 00:00: Practic e 00 e Codeine Allergy Active 2012-0 Village to 9-12 Family substanc 00:00: Practic e 00 e FENTANYL Allergy Active [facility] to 05-25 Family substanc 00:00: Practic e 00 e PROPOXYP Allergy Active [facility] LESTERE HCL to 05-25 Family substanc 00:00: Practic e 00 e PROPOXYP Allergy Active [facility] HENE to 12 Family NAPSYLAT substanc 00:00: Practi c E e 00 e TRAMADOL Allergy Active Village to 05-25 Family substanc 00:00: Practic e 00 e PROPOXYP DRUG Active N/V Univers HENE INGREDI 05-25 ity of 00:00: [place] [facility] TRAMADOL DRUG Active N/V Univers INGREDI 05-25 ity of 00:00: [place] [facility] Cefazoli Drug Active Nausea Nausea Univers n Allergy and/or 05-25 and ity of Vomiting 00:00: vomiting. [place] 00 She Medical reports Branch she can tolerate taken with zofran (Ondanset martha) Codeine Drug Active Nausea Nausea Univers Allergy and/or 05-25 and ity of Vomiting 00:00: vomiting. [place] 00 Patient Medical states Branch she can tolerate low dose Demerol (Meperidi ne) and tylenol for pain managemen t Fentanyl Drug Active Nausea Nausea Univers Allergy and/or 05-25 and ity of Vomiting 00:00: vomiting. [place] Patient Medical states Branch she can tolerate low dose Demerol (Meperidi ne) and tylenol for pain managemen t Propoxyp Drug Active Nausea Nausea Univers hene Allergy and/or 05-25 and ity of Vomiting 00:00: vomiting. [place] 00 Patient Medical states Branch she can tolerate low dose Demerol (Meperidi ne) and tylenol for pain managemen t Tramadol Drug Active Nausea Nausea Univers Allergy and/or - and ity of Vomiting 00:00: vomiting. [place] Patient Medical states Branch she can tolerate low dose Demerol (Meperidi ne) and tylenol for pain managemen t CEFAZOLI DRUG Active N/V Univers N INGREDI 05-25 ity of 00:00: [place] [facility] CODEINE DRUG Active N/V 2011- Univers INGREDI 9-12 ity of 00:00: [address] FENTANYL DRUG Active N/V 2011-0 [facility] 9-12 ity of 00:00: [address] TRAMADOL DA Active U 2006-0 [facility] 6-16 Clear 00:00: [place] 00 [facility] ANCEF DA Active U NAUSEA-MUST 2006-0 [facility] MEDICATE 6-16 Clear FIRST 00:00: [place] [facility] CODEINE DA Active U 2006-0 [facility] 6-16 Clear 00:00: [place] [facility] DARVOCET DA Active U 2006-0 [facility] 6-16 Clear 00:00: [place] [facility] DARVON DA Active U 2006-0 [facility] 6-16 Clear 00:00: [place] [facility] No Known DA Active U 2006-0 [facility] Contrast 6-16 Clear Allergie 00:00: [place] [facility] No Known DA Active U 2006-0 [facility] Food 6-16 Clear Allergie 00:00: [facility] No Known DA Active U 2006-0 [facility] Other 6-16 Clear Allergie 00:00: [place] s 00 [facility] PERCODAN DA Active U 2006-0 [facility] 6-16 Clear 00:00: [place] [facility] propoxyp DA Active U 2005-1 [facility] hene 2-13 Clear 00:00: [place] [facility] cefazoli DA Active U 2004-0 [facility] n 8-20 Clear 00:00: [place] [facility] oxycodon DA Active U 2004-0 [facility] e 3-30 Clear 00:00: [place] [facility] codeine DA Active U 2001-0 [facility] 6-01 Clear 00:00: [place] [facility] Doxycycl Allergy Active Moderate Abdominal Vi llage ine to pain Family substanc Practic e e Social History Social Habit Start Date Stop Date Quantity Comments Source Sexual orientation Method ist Hospital Gender identity Religion Hospital Exposure to 2023-01-02 2023-01-12 Not sure University of SARS-CoV-2 (event) 00:00:00 23:49:00 [facility] History of Social 2022-06-13 2022-06-[address] function 00:00:00 00:00:00 Hospital Alcohol intake 2019-10-17 2019-10-17 Ex-drinker Religion 00:00:00 00:00:00 (finding) Hospital Tobacco use and 2019-09-30 2019-09-30 Smokeless Religion exposure 00:00:00 00:00:00 tobacco non-user Hospital Caffeine: 2016-08-17 2016-08-17 Neetu Leach nn 00:00:00 00:00:00 Sex [birth year] Religion 00:00:00 00:00:00 Hospital Smoking Status Start Date Stop Date Source Tobacco smoking consumption [facility] Medical unknown Branch Social History [facility] Medications Ordered Filled Start Stop Current Ordering Indication Dosage Frequency Signature Comments Components Source Medication Medication Date Date Medication? Clinician (SIG) Name Name proMETHazin 202- No 25mg 25 mg, IV Univers e [...] No 4mg 4 mg, Slow Univers mg/mL) 01-13 IV Push, ity of injection 4 05:30: 06:02 [place]CE, 1 [place] 00 :[place] dose, On Medical 01/13/23 Branch at 0030, STAT alirocumab 0 Yes 75mg inject 1 Uni vers (PRALUENT [...] [place] tablet 00 :00 Medical Branch nitroglycer 2022-[id number] 1 Univers in 0.4 mg 5-03 tablet ity of sublingual 00:00: [place] the [place] tablet 00 tongue as Medical needed for Branch Chest pain. lidocaine 5 2022-0 Yes [id number] 1{patch Apply 1 Univers % (700 5-03 } Patch to ity of mg/patch) 00:00: area(s) [place] patch 00 every 12 Medical (twelve) Branch hours as needed for Localized pain (12 hours on & 12 hours off). Nitrofurant 2022-0 2022- No [id number] 100mg Take 1 Univers oin&Nit. 5-03 05-09 [...] by ity of tablet 00:00: mouth in [place] 00 the Medical morning. Branch doxycycline 2021-09 Yes 100mg Q.5D [...] subcutaneou days. s injection ergocalcife 2021-09 Yes [id number] Q.5W Take Meth gabino rol 0-01 50,000 st (VITAMIN 19:46: Units by Hospi ta D2) 50,000 16 mouth 2 l unit (two) capsule times a week. Every Wednesday and Wednesday insulin 2021-09 Yes 60U [id number] Inject 60 Methodi LISPRO 0-[id number] PROTAMIN-LI 19:46: 3D under the [...] subcutaneou days. s injection ergocalcife 2021-09 Yes [id number] Q.5W Take Meth gabino rol 0-01 50,000 st (VITAMIN 19:46: Units by Hospi ta D2) 50,000 16 mouth 2 l unit (two) capsule times a week. Every Wednesday and Wednesday insulin 2021-09 Yes 60U [id number] Inject 60 Methodi LISPRO 0-[id number] PROTAMIN-LI 19:46: 3D under the [...] subcutaneou days. s injection ergocalcife 2021-09 Yes [id number] Q.5W Take Meth gabino rol 0-01 50,000 st (VITAMIN 19:46: Units by Hospi ta D2) 50,000 16 mouth 2 l unit (two) capsule times a week. Every Wednesday and Wednesday insulin 2021-09 Yes 60U [id number] Inject 60 Methodi LISPRO 0-[id number] PROTAMIN-LI 19:46: 3D under the [...] subcutaneou days. s injection ergocalcife 2021-09 Yes [id number] Q.5W Take Meth gabino rol 0-01 50,000 st (VITAMIN 19:46: Units by Hospi ta D2) 50,000 16 mouth 2 l unit (two) capsule times a week. Every Wednesday and Wednesday insulin 2021-09 Yes 60U [id number] Inject 60 Methodi LISPRO 0-[id number] PROTAMIN-LI 19:46: 3D under the [...] mL) with subcutaneou lunch. s pen Praluent 2018-0 Yes Aydin INJECT Memoria Pen [...] moria 50/50 7-19 [place] l 02:04: Bruce Garcia pramipexole 2018-0 Yes Aydin 1 tab(s) Me moria 7-19 [place] l 02:04: [place] 51 Metoprolol 2018-0 Yes Aydin take 1 Memor ia Succinate 7-19 [place] tablet l ER 02:04: twice a [place] 51 day Vitamin D 2018-0 Yes Aydin [...] not Memoria 7-19 [place] defined l 02:04: [place] 51 aspirin 2018-0 Yes Aydin 1 tab(s) Memori a 7-19 [place] l 02:04: [place] 51 Vitamin 2018-0 Yes Aydin 1 tab(s) Memori a B-100 7-19 [place] l 02:04: [place] 51 Humalog Mix 2018-0 Yes Aydin 60 units Me moria 50/50 7-19 [place] l 02:04: [place] 51 Vitamin D 2018-0 Yes Aydin TAKE 1 Memori a 7-19 [place] CAPSULE BY l 02:04: MOUTH Bruce 51 TWICE A WEEK clobetasol 2018-0 Yes Aydin 1 yoon Memori a topical 7-19 [place] l 02:04: [place] 51 Nitrostat 2018-0 Yes Aydin DISSOLVE 1 [...] [place] tablet l ER 02:04: twice a [place] 51 day propafenone 2018-0 Yes Aydin 1 [...] 7-19 [place] CAPSULE BY l 02:04: MOUTH [place] 51 TWICE A WEEK clobetasol 2018-0 Yes [...] a Caplet 7-19 [place] l Extra 02:04: [place] Strength 51 Synthroid 2018-0 Yes Aydin 1 tab(s) William masoud 7-19 [place] l 02:04: Bruce 51 Mag-Ox 400 2018-0 Yes Aydin 3 tab(s) Mem oria 7-19 [place] l 02:04: [place] 51 Praluent 2018-0 Yes Aydin INJECT Memoria Pen 7-19 [place] 75MG l 02:04: SUBCUTANEO [place] 51 USLY EVERY 2 WEEKS Metoprolol 2018-0 Yes Aydin take 1 Memor ia Succinate 7-19 [place] tablet l ER 02:04: twice a Bruce 51 day propafenone 2018-0 Yes Aydin 1 tab(s) Me moria 7-19 [place] l 02:04: Bruce 51 cranberry 2017-0 Yes Aydin not Memoria 7-19 [place] defined l 02:04: Bruce 51 aspirin 2018-0 Yes Aydin 1 tab(s) Memori a 7-19 [place] l 02:04: Bruce 51 Vitamin 2018-0 Yes Aydin 1 tab(s) Memori a B-100 7-19 [place] l 02:04: [place] 51 Humalog Mix 2018-0 Yes Aydin 60 units Me moria 50/50 7-19 [place] l 02:04: [place] 51 Vitamin D 2018-0 Yes Aydin TAKE 1 Memori a 7-19 [place] CAPSULE BY l 02:04: MOUTH Bruce 51 TWICE A WEEK clobetasol 2018-0 Yes Aydin 1 yoon Memori a topical 7-19 [place] l 02:04: [place] 51 Nitrostat 2018-0 Yes Aydin DISSOLVE 1 Me moria 7-19 [place] TABLET l 02:04: UNDER THE [place] 51 TONGUE EVERY 5 MINUTES DIRECTED Tresiba 2018-0 Yes Aydin 55 units Memori a 7-19 [place] l 02:04: Bruce 51 donepezil 2018-0 Yes Aydin 1 tab(s) William masoud 7-19 [place] l 02:04: Bruce 51 pramipexole 2018-0 Yes Aydin 1 tab(s) Me moria 7-19 [place] l 02:04: [place] 51 Tylenol 2018-0 Yes Aydin 1 tab(s) Memori a Caplet 7-19 [place] l Extra 02:04: Bruce Strength 51 Synthroid 2018-0 Yes Aydin 1 tab(s) William masoud 7-19 [place] l 02:04: Bruce 51 Mag-Ox 400 2018-0 Yes Aydin 3 tab(s) Mem oria 7-19 [place] l 02:04: Bruce 51 Praluent 2018-0 Yes Aydin INJECT Memoria Pen 7-19 [place] 75MG l 02:04: SUBCUTANEO [place] 51 USLY EVERY 2 WEEKS Metoprolol 2018-0 [...] Memori a B-100 7-19 [place] l 02:04: [place] 51 Humalog Mix 2018-0 Yes Aydin 60 units Me moria 50/50 7-19 [place] l 02:04: Bruce 51 Vitamin D 2018-0 Yes Aydin TAKE 1 Memori a 7-19 [place] CAPSULE BY l 02:04: MOUTH [place] 51 TWICE A WEEK clobetasol 2018-0 Yes Aydin 1 yoon Memori a topical 7-19 [place] l 02:04: [place] 51 Nitrostat 2018-0 Yes Aydin DISSOLVE 1 Me moria 7-19 [place] TABLET l 02:04: UNDER THE [place] 51 TONGUE EVERY 5 MINUTES DIRECTED Tresiba 2018-0 Yes Aydin 55 units Memori a 7-19 [place] l 02:04: [place] 51 donepezil 2018-0 Yes Aydin 1 tab(s) William masoud 7-19 [place] l 02:04: [place] 51 pramipexole 2018-0 Yes Aydin 1 tab(s) Me moria 7-19 [place] l 02:04: [place] 51 Tylenol 2018-0 Yes Aydin 1 tab(s) Memori a Caplet 7-19 [place] l Extra 02:04: [place] Strength 51 Synthroid 2018-0 Yes Aydin 1 tab(s) William masoud 7-19 [place] l 02:04: [place] 51 Mag-Ox 400 2018-0 Yes Aydin 3 [...] a Caplet 7-19 [place] l Extra 02:04[facility]Ox [facility] 2018-0 Yes Aydin 3 [...] 7-19 [place] TABLET l 02:04: UNDER THE [place] 51 TONGUE EVERY 5 MINUTES DIRECTED clobetasol [...] 7-19 [place] CAPSULE BY l 02:04: MOUTH [place] 51 TWICE A WEEK Praluent 2018-0 Yes [...] Caplet 7-19 [place] l Extra 02:04: Bruce [facility] 51 Mag-Ox 400 2018-0 Yes Aydin 3 [...] Bruce Paulino 51 Mag-Ox 400 2018-0 Yes Aydni 3 tab(s) Mem oria 7-19 [place] l [...] 7-19 [place] CAPSULE BY l 02:04: MOUTH [place] 51 TWICE A WEEK Praluent 2018-0 Yes Aydin INJECT Memoria Pen 7-19 [place] 75MG l 02:04: SUBCUTANEO [place] 51 USLY EVERY 2 WEEKS Metoprolol 2018-0 [...] Caplet 7-19 [place] l Extra 02:04: Bruce [facility] 51 Mag-Ox 400 2018-0 Yes Aydin 3 tab(s) Mem oria 7-19 [place] l 02:04: Bruce 51 Synthroid 2018-0 Yes Aydin 1 tab(s) William masoud 7-19 [place] l 02:04: Bruce 51 donepezil 2018-0 Yes Aydin 1 tab(s) William maosud 7-19 [place] l 02:04: Bruce 51 Tresiba 2018-0 Yes Aydin 55 units Memori a 7-19 [place] l 02:04: Bruce 51 aspirin 2018-0 Yes Aydin 1 tab(s) Memori a 7-19 [place] l 02:04: Bruce 51 Nitrostat 2018-0 Yes Aydin DISSOLVE 1 Me moria 7-19 [place] TABLET l 02:04: UNDER THE [place] 51 TONGUE EVERY 5 MINUTES DIRECTED clobetasol [...] Bruce 51 TWICE A WEEK Bactrim DS 2018-0 Yes Aydin 1 tab(s) [...] Yes Aydin 1 tab(s) Mem oria 7-09 [place] l 00:00: Bactrim DS 2018-0 Yes Aydin [...] tab(s) Mem oria 1-18 [place] l 03:01: [place] 46 propafenone 2016-09 Yes Aydin 1 tab(s) Me moria 1-18 [place] l 03:01: Bruce 46 Toujeo 2016-09 Yes Aydin inj Memoria 1-18 [place] l 03:01: [place] furosemide 2016-09 Yes Aydin 1 tab(s) Mem oria 1-18 [place] l 03:01: Klor-Con 2016-09 Yes Aydin 1 tab(s) Memor ia 1-18 [place] l 03:01: [place] 46 Mag-Ox 400 2016-09 Yes Aydin 3 tab(s) Mem oria 1-18 [place] l 03:01: propafenone 2016-09 Yes Aydin 1 tab(s) Me moria 1-18 [place] l 03:01: [place] 46 Toujeo 2016-09 Yes Aydin inj Memoria 1-18 [place] l 03:01: [place] 46 furosemide 2016-09 Yes Aydin 1 tab(s) Mem oria 1-18 [place] l 03:01: Bruce Klor-Con 2016-09 Yes Aydin 1 tab(s) Memor ia 1-18 [place] l 03:01: Bruce 46 Mag-Ox 400 2016-09 Yes Aydin 3 tab(s) Mem oria 1-18 [place] l 03:01: [place] 46 propafenone 2016-09 Yes Aydin 1 tab(s) Me moria 1-18 [place] l 03:01: Bruce Toujeo 2016-09 Yes Aydin inj Memoria 1-18 [place] l 03:01: Bruce furosemide 2016-09 Yes Aydin 1 tab(s) Mem oria 1-18 [place] l 03:01: [place] 46 Klor-Con 2016-09 Yes Aydin 1 tab(s) [facility] 1-18 [place] [facility] 03:01: Redford 46 Mag-Ox 400 2016-09 Yes Aydin 3 tab(s) Mem [facility]ria 1-18 [place] [facility] 03:01: Redford 46 propafenone 2016-09 Yes Aydin 1 tab(s) Me moria 1-18 [place] [facility] 03:01: Redford 46 Toujeo 2016-09 Yes Aydin inj [facility]oria 1-18 [place] [facility] 03:01: [place]ford furosemide 2016-09 Yes Yadin 1 tab(s) [facility] 1-18 [place] [facility] 03:01: Redford 46 Klor-Con 2016-09 Yes Aydin 1 tab(s) [facility] 1-18 [place] [facility] 03:01: Redford Mag-Ox 400 2016-09 Yes Aydin 3 tab(s) [facility] 1-18 [place] [facility] 03:01: Redford 46 propafenone 2016-09 Yes Aydin 1 tab(s) Me moria 1-18 [place] [facility] 03:01: Bruce furosemide 2016-09 Yes Aydin 1 tab(s) [facility] 1-18 [place] [facility] 03:01: Bruce 46 Klor-Con 2016-09 Yes Aydin 1 tab(s) [facility] 1-18 [place] [facility] 03:01: Redford 46 Mag-Ox 400 2016-09 Yes Aydin 3 tab(s) [facility] 1-18 [place] [facility] 03:01: Bruce 46 propafenone 2017-1 Yes Aydin 1 tab(s) Me moria 1-18 [place] [facility] 03:01: Bruce Toujeo 2016-09 Yes Aydin inj [facility]oria 1-18 [place] [facility] 03:01: Bruce furosemide 2016-09 Yes Aydin 1 tab(s) [facility] 1-18 [place] [facility] 03:01: Bruce Klor-Con 2016-09 Yes Aydin 1 tab(s) [facility] 1-18 [place] [facility] 03:01: Red[place] Mag-Ox 400 2016-09 Yes Aydin 3 tab(s) [facility] 1-18 [place] [facility] 03:01: Bruce propafenone 2016-09 Yes Aydin 1 tab(s) Me moria 1-18 [place] [facility] 03:01: Bruce 46 Toujeo 2016-09 Yes Aydin inj [facility] 1-18 [place] [facility] 03:01: Redford 46 furosemide 2016-09 Yes Aydin 1 tab(s) [facility] 1-18 [place] [facility] 03:01: Bruce Klor-Con 2016-09 Yes Aydin 1 tab(s) [facility] 1-18 [place] [facility] 03:01: Red[place] Mag-Ox 400 2016-09 Yes Aydin 3 tab(s) [facility] 1-18 [place] [facility] 03:01: Redford propafenone 2016-09 Yes Aydin 1 tab(s) Me moria 1-18 [place] [facility] 03:01: Bruce 46 Toujeo 2016-09 Yes Aydin inj [facility] 1-18 [place] [facility] 03:01: Bruce furosemide 2016-09 Yes Aydin 1 tab(s) [facility] 1-18 [place] [facility] 03:01: Red[place] Klor-Con 2016-09 Yes Aydin 1 tab(s) [facility] 1-18 [place] [facility] 03:01: Bruce Mag-Ox 400 2016-09 Yes Aydin 3 tab(s) [facility] 1-18 [place] [facility] 03:01: Redford 46 propafenone 2016-09 Yes Aydin 1 tab(s) Me moria 1-18 [place] [facility] 03:01: Bruce 46 Toujeo 2016-09 Yes Aydin inj [facility] 1-18 [place] [facility] 03:01: Bruce furosemide 2016-09 Yes Aydin 1 tab(s) Mem [...] moria 6-30 [place] [facility] 02:02: Synthroid Yes Adyin 1 tab(s) William masoud 6-30 [place] [facility] [...] 50/50 6-30 [place] [facility] 02:02: 30 aspirin 2017-0 Yes Aydin 1 tab(s) [facility] a 6-30 [place] [facility] 02:02: clobetasol Yes Aydin 1 yoon [facility] a topical 6-30 [place] [facility] 02:02: Praluent 2017 Yes Aydin INJECT [facility]oria Pen 6-30 [place] [...] [place] tablet l ER 02:02: twice a day Vitamin Yes Aydin 1 tab(s) Memori [...] oria 6-30 [place] [facility] 02:02: Humalog Mix 2016- Yes Aydin 60 units Me moria 50/50 [...] [place] tablet l ER 02:02: twice a day Vitamin Yes Aydin 1 tab(s) Memori a B-100 6-30 [place] [facility] 02:02: Nitrostat Yes Aydin 1 tab(s) William masoud 6-30 [place] [facility] 02:02: pramipexole Yes Aydin 1 tab(s) Me moria 6-30 [place] [facility] 02:02: Klor-Con Yes Aydin 1 tab(s) [facility] 6-30 [place] [facility] 02:02: propafenone Yes Aydin 1 tab(s) Me moria 6-30 [place] [facility] 02:02: Synthroid Yes Aydin 1 tab(s) William amsoud 6-30 [place] [facility] 02:02: Vitamin D Yes Aydin TAKE 1 Memori a 6-30 [place] CAPSULE BY l 02:02: MOUTH 30 TWICE A WEEK furosemide Yes Aydin 1 tab(s) [facility] 6-30 [place] [facility] 02:02: Mag-Ox 400 Yes Aydin 3 tab(s) Mem oria 6-30 [place] [facility] 02:02: Humalog Mix Yes Aydin 60 [...] [place] tablet l ER 02:02: twice a day Vitamin Yes Aydin 1 tab(s) Memori [...] moria 50/50 6-30 [place] [facility] 02:02: aspirin 2017 Yes Aydin 1 tab(s) Memori a 6-30 [...] [place] tablet l ER 02:02: twice a day Vitamin Yes Aydin 1 tab(s) Memori [...] [place] tablet l ER 02:02: twice a day Vitamin Yes Aydin 1 tab(s) Memori [...] [place] tablet l ER 02:02: twice a day Vitamin Yes Aydin 1 tab(s) Memori [...] tab(s) [facility] 6-30 [place] [facility] 02:02: Bruce 30 propafenone Yes Aydin 1 tab(s) Me [...] 02:02: 30 Nitrostat Yes Aydin 1 tab(s) Willima masoud 6-30 [place] [facility] 02:02: 30 Praluent [...] [place] tablet l ER 02:02: twice a day Vitamin Yes Aydin 1 tab(s) Memori [...] Memoria 6-30 [place] defined l 02:02: donepezil 2017 Yes Aydin 1 tab(s) William masoud 6-30 [place] [facility] 02:02: Tylenol 2017 Yes Aydin 1 tab(s) Memori a Caplet 6-30 [place] [facility] Extra 02:02: Metoprolol Yes Aydin take 1 [facility] ia Succinate 6-30 [place] tablet l ER 02:02: twice a day Vitamin 2017-0 Yes Aydin 1 tab(s) Memori [...] oria 6-30 [place] [facility] 02:02: Humalog Mix 2017 Yes Aydin 60 units Me moria 50/50 6-30 [place] [facility] 02:02: aspirin 2017 Yes Aydin 1 tab(s) [facility] a 6-30 [place] [facility] 02:02: clobetasol Yes Aydin 1 yoon [facility] a topical 6-30 [place] [facility] 02:02: Bruce 30 NovoLog 2015-09 Yes Aydin 50/50 [facility] 2-30 [place] [facility] 03:14: Bruce alog 2015-09 Yes Aydin 0 [facility]oria 2-30 [place] [facility] 03:14: Bruce o 2015-09 Yes Aydin inj [facility] 2-30 [place] [facility] 03:14: Redford 26 NovoLog 2015-09 Yes Aydin 50/50 [facility] 2-30 [place] [facility] 03:14: Bruce alog 2015-09 Yes Aydin 0 [facility]oria 2-30 [place] [facility] 03:14: Bruce o 2015-09 Yes Aydin inj [facility] 2-30 [place] [facility] 03:14: Bruce NovoLog 2015-09 Yes Aydin 50/50 [facility] 2-30 [place] [facility] 03:14: Bruce 2015-09 Yes Aydin 0 Memoria 2-30 [place] [facility] 03:14: Bruce 2015-09 Yes Aydin inj [facility]oria 2-30 [place] [facility] 03:14: Bruce NovoLog 2015-09 Yes Aydin 50/50 [facility] 2-30 [place] [facility] 03:14: Bruce 2015-09 Yes Aydin 0 Memoria 2-30 [place] [facility] 03:14: Bruce o 2015-09 Yes Aydin inj [facility] 2-30 [place] [facility] 03:14: Bruce NovoLog 2015-09 Yes Aydin 50/50 [facility] 2-30 [place] [facility] 03:14: Bruce 2015-09 Yes Aydin 0 Memoria 2-30 [place] [facility] 03:14: Bruce o 2015-09 Yes Aydin inj [facility] 2-30 [place] [facility] 03:14: Bruce NovoLog 2015-09 Yes Aydin 50/50 [facility] 2-30 [place] [facility] 03:14: Bruce 2015-09 Yes Aydin 0 Memoria 2-30 [place] [facility] 03:14: Bruce 2015-09 Yes Aydin inj [facility] 2-30 [place] [facility] 03:14: Bruce NovoLog 2015-09 Yes Aydin 50/50 [facility] 2-30 [place] [facility] 03:14: Bruce alog 2015-09 Yes Aydin 0 [facility]oria 2-30 [place] [facility] 03:14: Bruce o 2015-09 Yes Aydin inj [facility] 2-30 [place] [facility] 03:14: Bruce NovoLog 2015-09 Yes Aydin 50/50 [facility] 2-30 [place] [facility] 03:14: Red[place] 26 Humalog 2015-09 Yes Aydin 0 [facility]oria 2-30 [place] [facility] 03:14: Burceo 2015-09 Yes Aydin inj [facility] 2-30 [place] [facility] 03:14: Bruce NovoLog 2015-09 Yes Aydin 50/50 [facility] 2-30 [place] [facility] 03:14[facility] [place] [facility] 03:14: Bruce o 2015-09 Yes Aydin inj [facility] 2-30 [place] [facility] 03:14: Bruce 26 NovoLog 2015-09 Yes Aydin 50/50 [facility] 2-30 [place] [facility] 03:14: [facility] 0 [facility] 2-30 [place] [facility] 03:14: Bruce o 2015-09 Yes Aydin inj [facility] 2-30 [place] [facility] 03:14: Bruce NovoLog 2015-09 Yes Aydin 50/50 [facility] 2-30 [place] [facility] 03:14: [facility] 0 [facility] 2-30 [place] [facility] 03:14: Bruce o 2015-09 Yes Aydin inj [facility] 2-30 [place] [facility] 03:14: Bruce Klor-Con 2015-09 Yes Aydin 1 tab(s) [facility] M20 1-08 [place] [facility] 03:23: Bruce Cheathamexa 2015-09 Yes Aydin TAKE 1 Memoria 1-08 [...] Memor ia M20 1-08 [place] [facility] 03:23: exa 2015-09 Yes Aydin TAKE 1 [facility]oria 1-08 [place] TABLET l 03:23: TWICE A 49 DAY Klor-Con 2015-09 Yes Aydin 1 tab(s) [facility] M20 1-08 [place] [facility] 03:23: 49 Ranexa 2015-09 Yes Aydin TAKE 1 [facility]oria 1-08 [place] TABLET l 03:23: TWICE A Praluent 2015-09 Yes Aydin 75 mg Memoria [...] mg [facility]oria Pen 0-05 [place] [facility] 00:00: luent 2015-09 Yes Aydin 75 mg [facility] Pen 0-05 [place] [facility] 00:00: luent 2015-09 Yes Aydin 75 mg [facility] Pen 0-05 [place] [facility] 00:00: Praluent 2015-09 Yes Aydin 75 mg [facility] Pen 0-05 [place] [facility] 00:00: Praluent 2015-09 Yes Aydin 75 mg [facility] Pen 0-05 [place] [facility] 00:00: Praluent 2015-09 Yes Aydin 75 mg [facility] Pen 0-05 [place] [facility] 00:00: Tylenol 2016-0 Yes Aydin 2 tab(s) Memori [...] tab(s) Memori a 6-22 [place] [facility] 02:31: Redford 43 Tylenol 2016-0 Yes Aydin 2 tab(s) [...] a 6-22 [place] [facility] 02:31: Bruce 43 Detrol LA [...] masoud 6-22 [place] [facility] 02:27: Bruce 44 Crestor 2016-0 Yes Aydin 1 tab(s) [facility]ori a 6-01 [place] [facility] 00:00: Red[place] 00 Crestor 2016-0 Yes Aydin 1 tab(s) Memori [...] 1 tab(s) [facility] 2-03 [place] [facility] 00:00: Red[place] 00 Ranexa 2016-0 No Aydin 1 tab(s) [facility] 2-03 [place] [facility] 00:00: Ranexa 2015-0 No Aydin 1 tab(s) [facility] 2-03 [place] [facility] 00:00: Ranexa 2016-0 No Aydin 1 tab(s) [facility] 2-03 [place] [facility] 00:00: Ranexa 2015-0 No Aydin 1 tab(s) [facility] 2-03 [place] [facility] 00:00: Ranexa 2015-0 No Aydin 1 tab(s) [facility] 2-03 [place] [facility] 00:00: Ranexa 2015-0 No Aydin 1 tab(s) [facility] 2-03 [place] [facility] 00:00: Ranexa 2015-0 No Aydin 1 tab(s) [facility] 2-03 [place] [facility] 00:00: Ranexa 2015-0 No Aydin 1 tab(s) [facility] 2-03 [place] [facility] 00:00: Furosemide 2014-0 No 20 mg, Memor ia [...] ia 6- Route: l 00:46: IVP, Drug Redford 00 form: INJ, ONCE, kg, Priority: STAT, Start date: 02/18/15 19:46:00, Stop date: 02/18/15 19:46:00 Furosemide 2015-0 No 20 mg, Memor ia 02-19 Route: l 00:46: IVP, Drug Bruce 00 form: INJ, ONCE, kg, Priority: STAT, Start date: 02/18/15 19:46:00, Stop date: 02/18/15 19:46:00 Furosemide 2015-0 No 20 mg, Memor ia - Route: l 00:46: IVP, Drug Bruce 00 [...] Furosemide 2015-0 No 20 mg, Memor ia - Route: l 00:46: IVP, Drug Bruce 00 form: INJ, ONCE, kg, Priority: STAT, Start date: 02/18/15 19:46:00, Stop date: 02/18/15 19:46:00 Furosemide 2015-0 No 20 mg, Memor ia 02-19 Route: l 00:46: IVP, Drug Bruce 00 form: INJ, ONCE, kg, Priority: STAT, Start date: 02/18/15 19:46:00, Stop date: 02/18/15 19:46:00 Lantus 2014-0 Yes Aydin 25 units [facility]oria 9-15 [place] [facility] 03:23: Redford 25 Xolegel 2013-0 Yes Aydin 1 yoon [facility] 9-15 [place] [facility] 03:23: Bruce 25 Lantus 2013-0 Yes Aydin 25 units [facility]oria 9-15 [place] [facility] 03:23: Bruce 25 Xolegel 2013-0 Yes Aydin 1 yoon [facility] 9-15 [place] [facility] 03:23: Redford 25 Lantus 2013-0 Yes Aydin 25 units [facility]oria 9-15 [place] [facility] 03:23: Bruce 25 Xolegel 2013-0 Yes Aydin 1 yoon [facility] 9-15 [place] [facility] 03:23: Bruce 25 Lantus 2013-0 Yes Aydin 25 units [facility]oria 9-15 [place] [facility] 03:23: Redford 25 Xolegel 2013-0 Yes Aydin 1 yoon [facility] 9-15 [place] [facility] 03:23: Redford 25 Lantus 2013-0 Yes Aydin 25 units [facility]oria 9-15 [place] [facility] 03:23: Bruce Xolegel 2013-0 Yes Aydin 1 yoon [facility] 9-15 [place] [facility] 03:23: Redford 25 Lantus 2013-0 Yes Aydni 25 units [facility]oria 9-15 [place] [facility] 03:23: Red[place] 25 Xolegel 2013-0 Yes Aydin 1 yoon [facility] 9-15 [place] [facility] 03:23: Red[place] 25 Lantus 2013-0 Yes Aydin 25 units [facility]oria 9-15 [place] [facility] 03:23: Redford 25 Xolegel 2013-0 Yes Aydin 1 yoon [facility] 9-15 [place] [facility] 03:23: Redford 25 Lantus 2013-0 Yes Aydin 25 units [facility]oria 9-15 [place] [facility] 03:23: Bruce 25 Xolegel 2013-0 Yes Aydin 1 yoon [facility] 9-15 [place] [facility] 03:23: Red[place] 25 Lantus 2013-0 Yes Aydin 25 units [facility]oria 9-15 [place] [facility] 03:23: Red[place] 25 Xolegel 2013-0 Yes Aydin 1 yoon [facility] 9-15 [place] [facility] 03:23: Bruce 25 Lantus 2013-0 Yes Aydin 25 units [facility]oria 9-15 [place] [facility] 03:23: Red[place] 25 Xolegel 2013-0 Yes Aydin 1 yoon [facility] 9-15 [place] [facility] 03:23: Bruce 25 Lantus 2013-0 Yes Aydin 25 units [facility]oria 9-15 [place] [facility] 03:23: Xolegel 2013-0 Yes Aydin 1 yoon [facility] 9-15 [place] [facility] 03:23: Vitamin D 2013-0 Yes Aydin 1 tab(s) [...] William masoud 8-18 [place] [facility] 00:00: Aricept 0 Yes [...] a 4-12 [place] [facility] 03:53: Bruce 12 Mirapex 2013-0 Yes Aydin 1 tab(s) Memori a 4-12 [place] [facility] 03:53: Redford 12 Aricept 2013-0 Yes Aydin 1 tab(s) Memori a 4-12 [place] [facility] 03:53: Bruce 12 Mirapex 2013-0 Yes Aydin 1 tab(s) Memori a 4-12 [place] [facility] 03:53: Bruce 12 Aricept 0 Yes Aydin 1 tab(s) Memori a 4-12 [place] [facility] 03:53: Bruce 12 Mirapex 0 Yes Aydin 1 tab(s) Memori a 4-12 [place] [facility] 03:53: Bruce 12 Aricept 0 Yes Aydin 1 tab(s) Memori a 4-12 [place] [facility] 03:53: Bruce 12 Mirapex 0 Yes Aydin 1 tab(s) Memori a 4-12 [place] [facility] 03:53: Bruce 12 Aricept 0 Yes Aydin 1 tab(s) Memori a 4-12 [place] [facility] 03:53: Bruce 12 Mirapex 0 Yes Aydin 1 tab(s) Memori a 4-12 [place] [facility] 03:53: Redford 12 Aricept 0 Yes Aydin 1 tab(s) Memori a 4-12 [place] [facility] 03:53: Bruce 12 Mirapex 0 Yes Aydin 1 tab(s) [facility]ori a 4-12 [place] [facility] 03:53: Redford 12 Aricept 0 Yes Aydin 1 tab(s) Memori a 4-12 [place] [facility] 03:53: Bruce 12 Mirapex 0 Yes Aydin 1 tab(s) Memori a 4-12 [place] [facility] 03:53: Redford 12 Aricept 2013-0 Yes Aydin 1 tab(s) Memori a 4-12 [place] [facility] 03:53: Bruce 12 Mirapex 0 Yes Aydin 1 tab(s) Memori a 4-12 [place] [facility] 03:53: Red[place] 12 Aricept 2013-0 Yes Aydin 1 tab(s) Memori a 4-12 [place] [facility] 03:53: Redford 12 Mirapex 2014-0 Yes Aydin 1 tab(s) Memori a 4-12 [...] tab(s) Memoria 3-26 [place] [facility] 00:00: Bruce Imdur 2013-0 Yes Aydin 1 tab(s) [facility]oria 3-26 [place] [facility] 00:00: Redford Imdur 2013-0 Yes Aydin 1 tab(s) [facility]oria 3-26 [place] [facility] 00:00: Bruce Imdur 2013-0 Yes Aydin 1 tab(s) [facility]oria 3-26 [place] [facility] 00:00: Bruce Imdur 2013-0 Yes Aydin 1 tab(s) [facility]oria 3-26 [place] [facility] 00:00: Bruce 00 Imdur 2013-0 Yes Aydin 1 tab(s) [facility] 3-26 [place] [facility] 00:00: Bruce 00 Crestor 2012-09 Yes Aydin 1 tab(s) Memori a 1-09 [place] [facility] 04:51: Bruce 44 Capitanejoor 2012-09 Yes Aydin 1 tab(s) Memori a 1-09 [place] [facility] 04:51: Bruce Jacome [facility] 2012-09 Yes Aydin 1 tab(s) Memori a 1-09 [place] [facility] 04:51: Bruce Jacome Capitanejoor 2012-09 Yes Aydin 1 tab(s) Memori a 1-09 [place] [facility] 04:51: Bruce Jacome [facility] 2012-09 Yes Aydin 1 tab(s) Memori a 1-09 [place] [facility] 04:51: Bruce 44 Capitanejoor 2012-09 Yes Aydin 1 tab(s) Memori a 1-09 [place] [facility] 04:51: Bruce Jacome Capitanejoor 2012-09 Yes Aydin 1 tab(s) Memori a 1-09 [place] [facility] 04:51: Bruce 44 Crestor 2012-09 Yes Aydin 1 tab(s) Memori a 1-09 [place] l 04:51: Bruce 44 Crestor 2012-09 Yes Aydin 1 tab(s) Memori a 1-09 [place] [facility] 04:51: Bruce 44 Capitanejoor 2012-09 Yes Aydin 1 tab(s) Memori a 1-09 [place] [facility] 04:51: Bruce Jacome Crestor 2012-09 Yes Aydin 1 tab(s) Memori a 1-09 [place] [facility] 04:51: [facility] Aydin 1 tab(s) Memori a [...] 1 cap(s) Memoria 0-01 [place] l 00:00: Ant2012-09 No Aydin 1 cap(s) Memoria 0-01 [place] [facility] 00:00: Lipitor 2012-09 Yes Aydin 1 tab(s) Memori a 0-01 [place] l 00:00: Ant2012-09 No Aydin 1 cap(s) Memoria 0-01 [place] [facility] 00:00: Lipitor 2012-09 Yes Yadin 1 tab(s) Memori a 0-01 [place] l 00:00: Ant2012-09 No Aydin 1 cap(s) Memoria 0-01 [place] [...] 1 cap(s) Memoria 0-01 [place] l 00:00: Bruce 00 Lipitor 2012-09 Yes Aydin 1 tab(s) Memori a 0-01 [place] [facility] 00:00: Redford 00 Antara 2012-1 No Aydin 1 cap(s) Memoria 0-01 [place] [facility] 00:00: Redford 00 Lipitor 2012-09 Yes Aydin 1 tab(s) Memori a 0-01 [place] l 00:00: Bruce 00 Lasix 2012-0 Yes [...] 1-25 [place] [facility] 00:00: Bruce 00 Plavix 2012-0 Yes Aydin 1 tab(s) Memoria 1-25 [place] [facility] 00:00: Burce 00 Plavix 0 Yes Aydin 1 tab(s) Memoria 1-25 [place] [facility] 00:00: Redford Plavix 0 Yes Aydin 1 tab(s) Memoria 1-25 [place] [facility] 00:00: Redford 00 Plavix 0 Yes Aydin 1 tab(s) Memoria 1-25 [place] [facility] 00:00: Redford 00 Plavix 0 Yes Aydin 1 tab(s) Memoria 1-25 [place] [facility] 00:00: Bruce Plavix 0 Yes Aydin 1 tab(s) Memoria 1-25 [place] [facility] 00:00: Redford 00 Plavix 0 Yes Aydin 1 tab(s) Memoria 1-25 [place] [facility] 00:00: Redford 00 Plavix 0 Yes Aydin 1 tab(s) Memoria 1-25 [place] [facility] 00:00: Bruce 00 Plavix 0 Yes Aydin 1 tab(s) Memoria 1-25 [place] [facility] 00:00: Bruce 00 Mag-Ox 400 0 Yes Aydin 2 tab(s) Mem oria 1-07 [...] tab(s) Mem oria 1-07 [place] l 00:00: Redford 00 Mag-Ox 400 2012-0 Yes Aydin 2 tab(s) Mem oria 1-07 [place] [facility] 00:00: Redford Mag-Ox 400 2012-0 Yes Aydin 2 tab(s) Mem oria 1-07 [place] [facility] 00:00: Bruce Mag-Ox 400 2012-0 Yes Aydin 2 tab(s) Mem oria 1-07 [place] [facility] 00:00: Redford Mag-Ox 400 2012-0 Yes Aydin 2 tab(s) Mem oria 1-07 [place] [facility] 00:00: Redford Mag-Ox 400 Yes Aydin 2 tab(s) Mem oria 1-07 [place] [facility] 00:00: Mag-Ox 400 Yes Aydin 2 tab(s) Mem oria -07 [place] [facility] 00:00: Trilipix Yes Aydin 1 tab(s) Memor ia 5-11 [place] [facility] 00:00: Trilipix Yes Aydin 1 tab(s) Memor ia 5-11 [place] [facility] 00:00: Trilipix Yes Aydin 1 tab(s) Memor ia 5-11 [place] [facility] 00:00: Trilipix Yes Aydin 1 tab(s) Memor ia 5-11 [place] [facility] 00:00: Trilipix Yes Aydin 1 tab(s) Memor ia 5-11 [...] route. B-Complex 1 B-Complex 1 No B-Complex [facility] daily daily 1 daily Family Practic e BD BD No BD [facility] Ultra-Fine Ultra-Fine Ultra-Fine [facility] Short Pen Short Pen Short Pen Practic Needle 31 Needle 31 Needle 31 e gauge x gauge x gauge x 5/16" USE 01/26" USE 01/26" USE UNDER THE UNDER THE UNDER THE SKIN FOUR SKIN FOUR SKIN FOUR TIMES A DAY TIMES A DAY TIMES A DAY ciclopirox ciclopirox No ciclopirox [facility] 0.77 % 0.77 % 0.77 % [facility] topical gel topical gel topical Practic gel e clobetasol clobetasol No clobetasol [facility] 0.05 % 0.05 % 0.05 % [facility] scalp scalp scalp Practic solution solution solution e clobetasol clobetasol No clobetasol [facility] 0.05 % 0.05 % 0.05 % [facility] topical topical topical Practi c ointment ointment ointment e APPLY A APPLY A APPLY A THIN LAYER THIN LAYER THIN LAYER TO HAIR TO HAIR TO HAIR HALF AN HALF AN HALF AN HOUR BEFORE HOUR BEFORE HOUR WASHING WASHING BEFORE HAIR HAIR WASHING HAIR clopidogrel clopidogrel No clopidogre [facility] 75 mg 75 mg l 75 mg Family tablet Take tablet Take tablet Practic 1 tablet 1 tablet Take 1 e every day every day tablet by oral by oral every day route. route. by oral route. cranberry cranberry No 1mg Q1D cranberry [facility] extract 300 extract 300 extract Family mg tablet mg tablet 300 mg Pra ctic Take 1 mg Take 1 mg tablet e every day every day Take 1 mg by oral by oral every day route. route. by oral route. diclofenac diclofenac No diclofenac [facility] 1 % topical 1 % topical 1 [...] gone donepezil donepezil No 1 Q1D donepezil [facility] 10 mg 10 mg 10 mg Family [...] Family Practic e ergocalcife ergocalcife No ergocalcif [facility] rol rol tono Family (vitamin (vitamin (vitamin Pra ctic D2) 1,250 D2) 1,250 D2) 1,250 e mcg (50,000 mcg (50,000 mcg unit) unit) (50,000 capsule capsule unit) Take 1 Take 1 capsule capsule capsule Take 1 every week every week capsule by oral by oral every week route. route. by oral route. fluconazole fluconazole No fluconazol [facility] 150 mg 150 mg e 150 mg Family tablet tablet tablet Practic e fluocinonid fluocinonid No fluocinoni [facility] e 0.05 % e 0.05 % de 0.05 % Fa astrid topical topical topical Practi c solution solution solution e folic acid folic acid No folic acid [facility] 1 mg tablet 1 mg tablet 1 mg F amily tablet Practic e FreeStyle FreeStyle No FreeStyle [facility] Lorraine 14 Lorraine 14 Lorraine 14 Fam aissatou Day Sensor Day Sensor Day Sensor Practic kit CHANGE kit CHANGE kit CHANGE e SENSORS Q SENSORS Q SENSORS Q 14 DAYS 14 DAYS 14 DAYS furosemide furosemide No 1 Q1D furosemide [facility] 40 mg 40 mg 40 mg Family [...] Village 50-50 50-50 Mix 50-50 Family KwikPen KwcorrinaPen KwikPen Practi c U-100 U-100 U-100 e Insulin 100 Insulin 100 Insulin unit/mL unit/mL 100 subcutaneou subcutaneou unit/mL s pen s pen subcutaneo Inject 60 Inject 60 us pen units TID units TID Inject 60 units TID ibuprofen ibuprofen No ibuprofen [facility] 800 mg 800 mg 800 mg Family tablet tablet tablet Practic e ipratropium ipratropium No ipratropiu [facility] bromide 42 bromide 42 m bromide Family mcg (0.06 mcg (0.06 42 mcg Pra ctic %) nasal %) nasal (0.06 %) e spray spray nasal spray ketoconazol ketoconazol No ketoconazo Village e 2 % e 2 % le 2 % Family topical topical topical Practi c cream cream cream e meperidine meperidine No meperidine [facility] 50 mg 50 mg 50 mg Family tablet PRN tablet PRN tablet PRN Practic e metoprolol metoprolol No metoprolol [facility] succinate succinate succinate Family ER 25 mg [...] Prac tic ointment e nitroglycer nitroglycer nitroglyce [facility] in 0.4 mg in 0.4 mg rin 0.4 mg [facility] sublingual sublingual sublingual Practic tablet tablet [...] powder powder powder nystatin-tr nystatin-tr No nystatin-t [facility] iamcinolone iamcinolone riamcinolo Family 100,000 100,000 ne 100,000 Pra ctic unit/g-0.1 unit/g-0.1 unit/g-0.1 e % topical % topical % topical cream cream cream OneTouch OneTouch No OneTouch Angela brighte Delica Delica Delica Family Lancets 30 Lancets [...] route. us route. pramipexole pramipexole No pramipexol [facility] 0.5 mg 0.5 mg e 0.5 mg Family tablet Take tablet Take tablet Practic 1 tablet 1 tablet Take 1 e twice a day twice a day tablet by oral by oral twice a route. route. day by oral route. propafenone propafenone No propafenon [facility] 150 mg 150 mg e 150 mg Family tablet Take tablet Take tablet Practic 1 tablet 1 tablet Take 1 e every 8 every 8 tablet hours by hours by every 8 oral route. oral route. hours by oral route. salicylic salicylic No salicylic [facility] acid as acid as acid as Family needed needed needed Practic e salicylic salicylic No salicylic [facility] acid 6 % acid 6 % acid [...] PAT DRY NEEDED sulfamethox sulfamethox No sulfametho [facility] azole 800 azole 800 xazole 800 Family mg-trimetho mg-trimetho mg-trimeth Practic prim 160 mg prim 160 mg oprim 160 e tablet tablet mg tablet Synthroid Synthroid No Synthroid [facility] 175 mcg 175 mcg 175 mcg Family [...] Family Practic e amiodarone amiodarone No amiodarone [facility] 200 mg 200 mg 200 mg Family tablet Take tablet Take tablet Practic one tablet one tablet Take one e daily daily tablet daily Analpram-HC Analpram-HC No Analpram-H [facility] 2.5 %-1 % 2.5 %-1 % C 2.5 %-1 [facility] rectal rectal % rectal Practic cream cream cream e BD BD No BD [facility] Ultra-Fine Ultra-Fine Ultra-Fine [facility] Short Pen Short Pen Short Pen Practic Needle 31 Needle 31 Needle 31 e gauge x gauge x gauge x 5/16" USE 5/16" USE 5/16" USE UNDER THE UNDER THE UNDER THE SKIN FOUR SKIN FOUR SKIN FOUR TIMES A DAY TIMES A DAY TIMES A DAY ciclopirox ciclopirox No ciclopirox [facility] 0.77 % 0.77 % 0.77 % [facility] topical gel topical gel topical Practic gel e clobetasol clobetasol No clobetasol [facility] 0.05 % 0.05 % 0.05 % [facility] scalp scalp scalp Practic solution solution solution e clobetasol clobetasol No clobetasol [facility] 0.05 % 0.05 % 0.05 % [facility] topical topical topical Practi c ointment ointment ointment e APPLY A APPLY A APPLY A THIN LAYER THIN LAYER THIN LAYER TO HAIR TO HAIR TO HAIR HALF AN HALF AN HALF AN HOUR BEFORE HOUR BEFORE HOUR WASHING WASHING BEFORE HAIR HAIR WASHING HAIR Dexcom G6 Dexcom G6 No Dexcom G6 [facility] Sensor Sensor Sensor Family change change change Practic every ten every ten every ten e days days days Dexcom G6 Dexcom G6 No Dexcom G6 [facility] Transmitter Transmitter Transmitte Family use as use as r use as Practic directed directed directed e diclofenac diclofenac No diclofenac [place] 1 % topical 1 % topical 1 % F amily gel gel topical Practic gel e donepezil donepezil No donepezil [facility] 10 mg 10 mg 10 mg Family [...] Practic cream e ergocalcife ergocalcife No ergocalcif [facility] rol van power Family (vitamin (vitamin (vitamin Pra ctic D2) 1,250 D2) 1,250 D2) 1,250 e mcg (50,000 mcg (50,000 mcg unit) unit) (50,000 capsule capsule unit) Take 1 Take 1 capsule capsule capsule Take 1 every week every week capsule by oral by oral every week route. route. by oral route. fluconazole fluconazole No fluconazol [facility] 100 mg 100 mg e 100 mg Family tablet take tablet take tablet Practic two tablets two tablets take two e day one and day one and tablets then one then one day one until gone until gone and then one until gone fluconazole fluconazole No fluconazol [facility] 150 mg 150 mg e 150 mg Family tablet tablet tablet Practic e fluconazole fluconazole No fluconazol [facility] 200 mg 200 mg e 200 mg Family tablet tablet tablet Practic e fluocinonid fluocinonid No fluocinoni [facility] e 0.05 % e 0.05 % de 0.05 % Fa astrid topical topical topical Practi c solution solution solution e folic acid folic acid No folic acid [facility] 1 mg tablet 1 mg tablet 1 mg F amily tablet Practic e FreeStyle FreeStyle No FreeStyle [place] 14 [place] 14 [place] 14 Fam aissatou Day Sensor Day Sensor Day Sensor Practic kit CHANGE kit CHANGE kit CHANGE e SENSORS Q SENSORS Q SENSORS Q 14 DAYS 14 DAYS 14 DAYS FreeStyle FreeStyle No FreeStyle [facility] Lorraine 2 Lorraine 2 Lorraine 2 Family Sensor Sensor Sensor Practic change q14 change q14 change q14 e days days days furosemide furosemide No furosemide [facility] 40 mg 40 mg 40 mg Family tablet Take tablet Take tablet Practic 1 tablet 1 tablet Take 1 e every day every day tablet by oral by oral every day route as route as by oral needed. needed. route as needed. gabapentin gabapentin No gabapentin [facility] 300 mg 300 mg 300 mg Family capsule capsule capsule Practi c Take 1 Take 1 Take 1 e capsule 3 capsule 3 capsule 3 times a day times a day times a by oral by oral day by route. route. oral route. gentamicin gentamicin No gentamicin [facility] 0.1 % 0.1 % 0.1 % Family topical topical topical Practi c ointment ointment ointment e Humalog Mix Humalog Mix No Humalog [facility] 50-50 50-50 Mix 50-50 Family KwikPen KwikPen KwikPen Practi c U-100 U-100 U-100 e Insulin 100 Insulin 100 Insulin unit/mL unit/mL 100 subcutaneou subcutaneou unit/mL s pen s pen subcutaneo Inject 60 Inject 60 us pen units TID units TID Inject 60 units TID ibuprofen ibuprofen No ibuprofen [facility] 800 mg 800 mg 800 mg Family tablet tablet tablet Practic e ipratropium ipratropium No ipratropiu [facility] bromide 42 bromide 42 m bromide Family mcg (0.06 mcg (0.06 42 mcg Pra ctic %) nasal %) nasal (0.06 %) e spray spray nasal spray ketoconazol ketoconazol No ketoconazo [place] e 2 % e 2 % le 2 % Family topical topical topical Practi c cream cream cream e loratadine loratadine No loratadine [facility] 10 mg 10 mg 10 mg Family tablet tablet tablet Practic e meperidine meperidine No meperidine [facility] 50 mg 50 mg 50 mg Family tablet PRN tablet PRN tablet PRN Practic e mupirocin 2 mupirocin 2 No mupirocin [place] % topical % topical 2 % Famil y ointment ointment topical Prac tic ointment e nitroglycer nitroglycer No nitroglyce [facility] in 0.4 mg in 0.4 mg rin [...] AREA TWICE DAILY nystatin-tr nystatin-tr No nystatin-t [facility] mariostorm martinstorm meredithcaleb Family 100,000 100,000 ne 100,000 [...] route. us route. pramipexole pramipexole No pramipexol [facility] 0.5 mg 0.5 mg e 0.5 mg Family tablet Take tablet Take tablet Practic 1 tablet 1 tablet Take 1 e twice a day twice a day tablet by oral by oral twice a route. route. day by oral route. propafenone propafenone No propafenon [facility] 150 mg 150 mg e 150 mg [...] paste paste paste salicylic salicylic No salicylic [place] acid 6 % acid 6 % acid [...] PAT DRY NEEDED sulfamethox sulfamethox No sulfametho [facility] azole 800 azole 800 xazole 800 Family mg-trimetho mg-trimetho mg-trimeth Practic prim 160 mg prim 160 mg oprim 160 e tablet tablet mg tablet Synthroid Synthroid No Synthroid [facility] 175 mcg 175 mcg 175 mcg Family tablet TAKE tablet TAKE tablet Practic 1 TABLET 1 TABLET TAKE 1 e DAILY DAILY TABLET DAILY Tresiba Tresiba No Tresiba [place] e FlexTouch FlexTouch FlexTouch [facility] U-200 U-200 U-200 Practic insulin 200 insulin 200 insulin e unit/mL (3 unit/mL (3 200 mL) mL) unit/mL (3 subcutaneou subcutaneou mL) s pen s pen subcutaneo Inject 40 Inject 40 us pen units daily units daily Inject 40 units daily triamcinolo triamcinolo No triamcinol [facility] ne ne one Family acetonide acetonide acetonide Practic 0.1 % 0.1 % 0.1 % e topical topical topical cream cream cream amiodarone amiodarone No amiodarone [facility] 200 mg 200 mg 200 mg Family tablet Take tablet Take tablet Practic one tablet one tablet Take one e daily daily tablet daily Analpram-HC Analpram-HC No Analpram-H [facility] 2.5 %-1 % 2.5 %-1 % C 2.5 %-1 Family rectal rectal % rectal Practic cream cream cream e BD BD No BD [place] Ultra-Fine Ultra-Fine Ultra-Fine [facility] Short Pen Short Pen Short Pen Practic Needle 31 Needle 31 Needle 31 e gauge x gauge x gauge x 01/26" USE 01/26" USE 01/26" USE UNDER THE UNDER THE UNDER THE SKIN FOUR SKIN FOUR SKIN FOUR TIMES A DAY TIMES A DAY TIMES A DAY ciclopirox ciclopirox No ciclopirox [facility] 0.77 % 0.77 % 0.77 % [facility] topical gel topical gel topical Practic gel e clobetasol clobetasol No clobetasol [facility] 0.05 % 0.05 % 0.05 % [facility] scalp scalp scalp Practic solution solution solution e clobetasol clobetasol No clobetasol [facility] 0.05 % 0.05 % 0.05 % Family topical topical topical Practi c ointment ointment ointment e APPLY A APPLY A APPLY A THIN LAYER THIN LAYER THIN LAYER TO HAIR TO HAIR TO HAIR HALF AN HALF AN HALF AN HOUR BEFORE HOUR BEFORE HOUR WASHING WASHING BEFORE HAIR HAIR WASHING HAIR [address] Sensor Sensor Sensor Family change change change Practic every ten every ten every ten e days days [facility] Transmitter Transmitter Transmitte Family use as use as r use as Practic directed directed directed e diclofenac diclofenac No diclofenac [facility] 1 % topical 1 % topical 1 % F amily gel gel topical Practic gel e donepezil donepezil No donepezil [facility] 10 mg 10 mg 10 mg Family [...] Practic cream e ergocalcife ergocalcife No ergocalcif [facility] van power Family (vitamin (vitamin (vitamin Pra ctic D2) 1,250 D2) 1,250 D2) 1,250 e mcg (50,000 mcg (50,000 mcg unit) unit) (50,000 capsule capsule unit) Take 1 Take 1 capsule capsule capsule Take 1 every week every week capsule by oral by oral every week route. route. by oral route. fluconazole fluconazole No fluconazol [facility] 100 mg 100 mg e 100 mg Family tablet take tablet take tablet Practic two tablets two tablets take two e day one and day one and tablets then one then one day one until gone until gone and then one until gone fluconazole fluconazole No fluconazol [facility] 150 mg 150 mg e 150 mg Family tablet tablet tablet Practic e fluconazole fluconazole No fluconazol [facility] 200 mg 200 mg e 200 mg Family tablet tablet tablet Practic e fluocinonid fluocinonid No fluocinoni [facility] e 0.05 % e 0.05 % de 0.05 % Fa astrid topical topical topical Practi c solution solution solution e folic acid folic acid No folic acid [facility] 1 mg tablet 1 mg tablet 1 [...] days days days furosemide furosemide No furosemide [facility] 40 mg 40 mg 40 mg Family tablet Take tablet Take tablet Practic 1 tablet 1 tablet Take 1 e every day every day tablet by oral by oral every day route as route as by oral needed. needed. route as needed. gabapentin gabapentin No gabapentin [facility] 300 mg 300 mg 300 mg Family capsule capsule capsule Practi c Take 1 Take 1 Take 1 e capsule 3 capsule 3 capsule 3 times a day times a day times a by oral by oral day by route. route. oral route. gentamicin gentamicin No gentamicin [facility] 0.1 % 0.1 % 0.1 % Family topical topical topical Practi c ointment ointment ointment e Humalog Mix Humalog Mix No Humalog [facility] 50-50 50-50 Mix 50-50 [facility] KwikPen KwikPen KwikPen Practi c U-100 U-100 U-100 e Insulin 100 Insulin 100 Insulin unit/mL unit/mL 100 subcutaneou subcutaneou unit/mL s pen s pen subcutaneo Inject 60 Inject 60 us pen units TID units TID Inject 60 units TID ibuprofen ibuprofen No ibuprofen [facility] 800 mg 800 mg 800 mg Family tablet tablet tablet Practic e ipratropium ipratropium No ipratropiu [facility] bromide 42 bromide 42 m bromide Family mcg (0.06 mcg (0.06 42 mcg Pra ctic %) nasal %) nasal (0.06 %) e spray spray nasal spray ketoconazol ketoconazol No ketoconazo [place] e 2 % e 2 % le 2 % Family topical topical topical Practi c cream cream cream e loratadine loratadine No loratadine [facility] 10 mg 10 mg 10 mg Family tablet tablet tablet Practic e meperidine meperidine meperidine [facility] 50 mg 50 mg 50 mg Family tablet PRN tablet PRN tablet PRN Practic e mupirocin 2 mupirocin 2 No mupirocin [place] % topical % topical 2 % Famil y ointment ointment topical Prac tic ointment e nitroglycer nitroglycer No nitroglyce [facility] in 0.4 mg in 0.4 mg rin 0.4 mg [facility] sublingual sublingual sublingual Practic tablet tablet tablet e Place [address] 1 tablet as tablet as tablet as needed by needed by needed by sublingual sublingual sublingual route. route. route. nystatin nystatin No nystatin [facility] 100,000 100,000 100,000 Family unit/gram unit/gram unit/gram Practic topical topical topical e cream APPLY cream APPLY cream TOPICALLY TOPICALLY APPLY TO THE TO THE TOPICALLY AFFECTED AFFECTED TO THE AREA TWICE AREA TWICE AFFECTED DAILY DAILY AREA TWICE DAILY nystatin-tr nystatin-tr No nystatin-t [facility] iamcinolone iamcinolone riamcinolo Family 100,000 100,000 ne [...] DAILY TIMES DAILY Praluent Praluent No Praluent [facility] Pen 75 Pen 75 Pen 75 Family mg/mL mg/mL mg/mL Practic subcutaneou subcutaneou subcutaneo e s pen s pen us pen injector injector injector Inject 1 mL Inject 1 mL Inject 1 every 2 every 2 mL every 2 weeks by weeks by weeks by subcutaneou subcutaneou subcutaneo s route. s route. us route. pramipexole pramipexole No pramipexol [facility] 0.5 mg 0.5 mg e 0.5 mg Family tablet Take tablet Take tablet Practic 1 tablet 1 tablet Take 1 e twice a day twice a day tablet by oral by oral twice a route. route. day by oral route. propafenone propafenone No propafenon [facility] 150 mg 150 mg e 150 mg [...] paste paste paste salicylic salicylic No salicylic [facility] acid 6 % acid 6 % acid [...] PAT DRY NEEDED sulfamethox sulfamethox No sulfametho [facility] azole 800 azole 800 xazole 800 Family [...] 55 units daily triamcinolo triamcinolo No triamcinol [facility] ne ne one Family acetonide acetonide acetonide Practic 0.1 % 0.1 % 0.1 % e topical topical topical cream cream cream amiodarone amiodarone No amiodarone [facility] 200 mg 200 mg 200 mg Family tablet Take tablet Take tablet Practic one tablet one tablet Take one e daily daily tablet daily Analpram-HC Analpram-HC No Analpram-H [facility] 2.5 %-1 % 2.5 %-1 % C [...] TIMES A DAY clobetasol clobetasol No clobetasol [facility] 0.05 % 0.05 % 0.05 % [facility] scalp scalp scalp Practic solution solution solution e APPLY A APPLY A APPLY A THIN LAYER THIN LAYER THIN LAYER TO HAIR TO HAIR TO HAIR HALF AN HALF AN HALF AN HOUR BEFORE HOUR BEFORE HOUR WASHING WASHING BEFORE HAIR HAIR WASHING HAIR clobetasol clobetasol No clobetasol [facility] 0.05 % 0.05 % 0.05 % [facility] topical topical topical Practi c ointment ointment ointment e APPLY A APPLY A APPLY A THIN LAYER THIN LAYER THIN LAYER TO HAIR TO HAIR TO HAIR HALF AN HALF AN HALF AN HOUR BEFORE HOUR BEFORE HOUR WASHING WASHING BEFORE HAIR HAIR WASHING HAIR donepezil donepezil No donepezil [facility] 10 mg 10 mg 10 mg Family [...] Practic cream e ergocalcife ergocalcife No ergocalcif [facility] van power [facility] (vitamin (vitamin (vitamin Pra ctic D2) 1,250 D2) 1,250 D2) 1,250 e mcg (50,000 mcg (50,000 mcg unit) unit) (50,000 capsule capsule unit) Take 1 Take 1 capsule capsule capsule Take 1 every week every week capsule by oral by oral every week route. route. by oral route. fluocinonid fluocinonid No fluocinoni [facility] e 0.05 % e 0.05 % de [...] DAYS 14 DAYS FreeStyle FreeStyle No FreeStyle [facility] Lor[place] 2 Lorraine 2 Lorraine 2 Family Sensor Sensor Sensor Practic change q14 change q14 change q14 e days days days furosemide furosemide No furosemide [facility] 40 mg 40 mg 40 mg Family tablet Take tablet Take tablet Practic 1 tablet 1 tablet Take 1 e every day every day tablet by oral by oral every day route as route as by oral needed. needed. route as needed. gabapentin gabapentin No gabapentin [facility] 300 mg 300 mg 300 mg Family capsule capsule capsule Practi c Take 1 Take 1 Take 1 e capsule 3 capsule 3 capsule 3 times a day times a day times a by oral by oral day by route. route. oral route. gentamicin gentamicin No gentamicin [facility] 0.1 % 0.1 % 0.1 % Family topical topical topical Practi c ointment ointment ointment e Humalog Mix Humalog Mix No Humalog [facility] 50-50 50-50 Mix 50-50 Family KwikPen KwikPen KwikPen Practi c U-100 U-100 U-100 e Insulin 100 Insulin 100 Insulin unit/mL unit/mL 100 subcutaneou subcutaneou unit/mL s pen s pen subcutaneo Inject 60 Inject 60 us pen units TID units TID Inject 60 units TID ibuprofen ibuprofen No ibuprofen [facility] 800 mg 800 mg 800 mg Family tablet tablet tablet Practic e ipratropium ipratropium No ipratropiu [facility] bromide 42 bromide 42 m bromide Family mcg (0.06 mcg (0.06 42 mcg Pra ctic %) nasal %) nasal (0.06 %) e spray spray nasal spray ketoconazol ketoconazol No ketoconazo [facility] e 2 % e 2 % le 2 % Family topical topical topical Practi c cream cream cream e loratadine loratadine No loratadine [facility] 10 mg 10 mg 10 mg Family tablet tablet tablet Practic e meperidine meperidine No meperidine [facility] 50 mg 50 mg 50 mg Family tablet PRN tablet PRN tablet PRN Practic e mupirocin 2 mupirocin 2 No mupirocin [place] % topical % topical 2 % Famil y ointment ointment topical Prac tic ointment e nitroglycer nitroglycer No nitroglyce [facility] in 0.4 mg in 0.4 mg rin [...] AREA TWICE DAILY nystatin-tr nystatin-tr No nystatin-t [facility] iainolone iamcinolone riainolo Family 100,000 100,000 ne [...] route. us route. propafenone propafenone No propafenon [facility] 150 mg 150 mg e 150 mg [...] 54 units daily Analpram-HC Analpram-HC No Analpram-H [facility] 2.5 %-1 % 2.5 %-1 % C 2.5 %-1 Family rectal rectal % rectal Practic cream cream cream e Insert by Insert by Insert by rectal rectal rectal route as route as route as needed. needed. needed. BD BD No BD [facility] Ultra-Fine Ultra-Fine Ultra-Fine [facility] Short Pen Short Pen Short Pen Practic Needle 31 Needle 31 Needle 31 e gauge x gauge x gauge x /16" USE 01/26" USE 16" USE UNDER THE UNDER THE UNDER THE SKIN FOUR SKIN FOUR SKIN FOUR TIMES A DAY TIMES A DAY TIMES A DAY clobetasol clobetasol No clobetasol [facility] 0.05 % 0.05 % 0.05 % [facility] scalp scalp scalp Practic solution solution solution e APPLY A APPLY A APPLY A THIN LAYER THIN LAYER THIN LAYER TO HAIR TO HAIR TO HAIR HALF AN HALF AN HALF AN HOUR BEFORE HOUR BEFORE HOUR WASHING WASHING BEFORE HAIR HAIR WASHING HAIR clobetasol clobetasol No clobetasol [facility] 0.05 % 0.05 % 0.05 % [facility] topical topical topical Practi c ointment ointment ointment e APPLY A APPLY A APPLY A THIN LAYER THIN LAYER THIN LAYER TO HAIR TO HAIR TO HAIR HALF AN HALF AN HALF AN HOUR BEFORE HOUR BEFORE HOUR WASHING WASHING BEFORE HAIR HAIR WASHING HAIR donepezil donepezil donepezil [facility] 10 mg 10 mg 10 mg [facility] tablet Take tablet Take tablet Practic 1 tablet 1 tablet Take 1 e every day every day tablet by oral by oral every day route at route at by oral bedtime. bedtime. route at bedtime. econazole 1 econazole 1 No econazole [place] % topical % topical 1 % Famil y cream cream topical Practic cream e ergocalcife ergocalcife No ergocalcif [facility] rol rol tono [facility] (vitamin (vitamin (vitamin Pra ctic D2) [...] folic acid folic acid No folic acid [facility] 1 mg tablet 1 mg tablet 1 [...] days days days furosemide furosemide No furosemide [facility] 40 mg 40 mg 40 mg Family tablet Take tablet Take tablet Practic 1 tablet 1 tablet Take 1 e every day every day tablet by oral by oral every day route as route as by oral needed. needed. route as needed. gabapentin gabapentin No gabapentin [facility] 300 mg 300 mg 300 mg Family capsule capsule capsule Practi c Take 1 Take 1 Take 1 e capsule 3 capsule 3 capsule 3 times a day times a day times a by oral by oral day by route. route. oral route. gentamicin gentamicin No gentamicin [facility] 0.1 % 0.1 % 0.1 % [facility] topical topical topical Practi c ointment ointment ointment e Humalog Mix Humalog Mix No Humalog [facility] 50-50 50-50 Mix 50-50 [facility] KwikPen KwikPen KwikPen Practi c U-100 U-100 U-100 e Insulin 100 Insulin 100 Insulin unit/mL unit/mL 100 subcutaneou subcutaneou unit/mL s pen s pen subcutaneo Inject 60 Inject 60 us pen units TID units TID Inject 60 units TID hydrocortis hydrocortis No hydrocorti [facility] one 2.5 % one 2.5 % sone 2.5 % Family lotion lotion lotion Practic e ipratropium ipratropium No ipratropiu [facility] bromide 42 bromide 42 m bromide Family mcg (0.06 mcg (0.06 42 mcg Pra ctic %) nasal %) nasal (0.06 %) e spray spray nasal spray ketoconazol ketoconazol No ketoconazo [place] e 2 % e 2 % le 2 % Family topical topical topical Practi c cream cream cream e loratadine loratadine No loratadine [facility] 10 mg 10 mg 10 mg Family tablet tablet tablet Practic e meperidine meperidine No meperidine [facility] 50 mg 50 mg 50 mg Family tablet PRN tablet PRN tablet PRN Practic e mupirocin 2 mupirocin 2 No mupirocin [place] % topical % topical 2 % Famil y ointment ointment topical Prac tic ointment e nitroglycer nitroglycer No nitroglyce [facility] in 0.4 mg in 0.4 mg rin [...] AREA TWICE DAILY nystatin-tr nystatin-tr No nystatin-t [facility] iamcinolone iamcinolone riamcinolo Family 100,000 100,000 ne [...] times per day [facility]Touch [facility] Verio test Verio test Family [...] s route. us route. propafenone propafenone propafenon [facility] 150 mg 150 mg e 150 mg [facility] tablet Take tablet Take tablet Practic [...] 54 units daily Analpram-HC Analpram-HC No Analpram-H [facility] 2.5 %-1 % 2.5 %-1 % C 2.5 %-1 [facility] rectal rectal % rectal Practic cream cream cream e Insert by Insert by Insert by rectal rectal rectal route as route as route as needed. needed. needed. BD BD No BD [facility] Ultra-Fine Ultra-Fine Ultra-Fine [facility] Short Pen Short Pen Short Pen Practic Needle 31 Needle 31 Needle 31 e gauge x gauge x gauge x 5/16" USE 5/16" USE 5/16" USE UNDER THE UNDER THE UNDER THE SKIN FOUR SKIN FOUR SKIN FOUR TIMES A DAY TIMES A DAY TIMES A DAY clobetasol clobetasol No clobetasol [facility] 0.05 % 0.05 % 0.05 % [facility] scalp scalp scalp Practic solution solution solution e APPLY A APPLY A APPLY A THIN LAYER THIN LAYER THIN LAYER TO HAIR TO HAIR TO HAIR HALF AN HALF AN HALF AN HOUR BEFORE HOUR BEFORE HOUR WASHING WASHING BEFORE HAIR HAIR WASHING HAIR clobetasol clobetasol No clobetasol [facility] 0.05 % 0.05 % 0.05 % [facility] topical topical topical Practi c ointment ointment ointment e APPLY A APPLY A APPLY A THIN LAYER THIN LAYER THIN LAYER TO HAIR TO HAIR TO HAIR HALF AN HALF AN HALF AN HOUR BEFORE HOUR BEFORE HOUR WASHING WASHING BEFORE HAIR HAIR WASHING HAIR donepezil donepezil No donepezil [facility] 10 mg 10 mg 10 mg Family [...] Practic cream e ergocalcife ergocalcife No ergocalcif [facility] van power Family (vitamin (vitamin (vitamin Pra ctic D2) 1,250 D2) 1,250 D2) 1,250 e mcg (50,000 mcg (50,000 mcg unit) unit) (50,000 capsule capsule unit) Take 1 Take 1 capsule capsule capsule Take 1 every week every week capsule by oral by oral every week route. route. by oral route. fluocinonid fluocinonid No fluocinoni [facility] e 0.05 % e 0.05 % de 0.05 % Fa astrid topical topical topical Practi c solution solution solution e APPLY A APPLY A APPLY A THIN LAYER THIN LAYER THIN LAYER TO SCALP TO SCALP TO SCALP TWICE A TWICE A TWICE A WEEK WEEK WEEK folic acid folic acid No folic acid [facility] 1 mg tablet 1 mg tablet 1 mg F amily tablet Practic e FreeStyle FreeStyle No FreeStyle [facility] [place] 14 [place] 14 [place] 14 Fam aissatou Day Sensor Day Sensor Day Sensor Practic kit CHANGE kit CHANGE kit CHANGE e SENSORS Q SENSORS Q SENSORS Q 14 DAYS 14 DAYS 14 DAYS FreeStyle FreeStyle No FreeStyle [facility] [place] 2 [place] 2 [place] 2 Family Sensor Sensor Sensor Practic change q14 change q14 change q14 e days days days furosemide furosemide No furosemide [facility] 40 mg 40 mg 40 mg Family tablet Take tablet Take tablet Practic 1 tablet 1 tablet Take 1 e every day every day tablet by oral by oral every day route as route as by oral needed. needed. route as needed. gabapentin gabapentin No gabapentin [facility] 300 mg 300 mg 300 mg Family capsule capsule capsule Practi c Take 1 Take 1 Take 1 e capsule 3 capsule 3 capsule 3 times a day times a day times a by oral by oral day by route. route. oral route. gentamicin gentamicin No gentamicin [facility] 0.1 % 0.1 % 0.1 % Family [...] LABIA EVERY DAY ipratropium ipratropium No ipratropiu [facility] bromide 42 bromide 42 m bromide Family [...] Practic patch e loratadine loratadine No loratadine [facility] 10 mg 10 mg 10 mg Family tablet tablet tablet Practic e meperidine meperidine No meperidine [facility] 50 mg 50 mg 50 mg Family [...] route. us route. propafenone propafenone No propafenon [facility] 150 mg 150 mg e 150 mg [...] needed. azithromyci azithromyci No 1 Q1D azithromyc [facility] n 500 mg n 500 mg in [...] DAY benzonatate benzonatate No 1capsul TID benzonatat [facility] 200 mg 200 mg e(s) e 200 [...] c Throat s) ic Throat Fa astrid Wilson 1.4 % Wilson 1.4 % Wilson 1.4 Practic aerosol aerosol % aerosol e Take 1 Take 1 Take 1 spray 3 spray 3 spray 3 times a day times a day times a by mucous by mucous day by route as route as mucous needed. needed. route as needed. clobetasol clobetasol No clobetasol [facility] 0.05 % 0.05 % 0.05 % [facility] scalp scalp scalp Practic solution solution solution e APPLY A APPLY A APPLY A THIN LAYER THIN LAYER THIN LAYER TO HAIR TO HAIR TO HAIR HALF AN HALF AN HALF AN HOUR BEFORE HOUR BEFORE HOUR WASHING WASHING BEFORE HAIR HAIR WASHING HAIR clobetasol clobetasol No clobetasol [facility] 0.05 % 0.05 % 0.05 % [facility] topical topical topical Practi c ointment ointment ointment e APPLY A APPLY A APPLY A THIN LAYER THIN LAYER THIN LAYER TO HAIR TO HAIR TO HAIR HALF AN HALF AN HALF AN HOUR BEFORE HOUR BEFORE HOUR WASHING WASHING BEFORE HAIR HAIR WASHING HAIR donepezil donepezil No donepezil [facility] 10 mg 10 mg 10 mg Family [...] Practic cream e ergocalcife ergocalcife No ergocalcif [facility] rol van tono [facility] (vitamin (vitamin (vitamin Pra ctic D2) 1,250 D2) 1,250 D2) 1,250 e mcg (50,000 mcg (50,000 mcg unit) unit) (50,000 capsule capsule unit) Take 1 Take 1 capsule capsule capsule Take 1 every week every week capsule by oral by oral every week route. route. by oral route. fluocinonid fluocinonid No fluocinoni [facility] e 0.05 % e 0.05 % de [...] nasal mcg/actuat spray,suspe spray,suspe ion nasal nsion Wilson nsion Wilson spray,susp 1 spray 1 spray ension twice a day twice a day Wilson 1 by by spray intranasal intranasal twice a route. route. day by intranasal route. folic acid folic acid No folic acid [facility] 1 mg tablet 1 mg tablet 1 [...] days days days furosemide furosemide No furosemide [facility] 40 mg 40 mg 40 mg Family tablet Take tablet Take tablet Practic 1 tablet 1 tablet Take 1 e every day every day tablet by oral by oral every day route as route as by oral needed. needed. route as needed. gabapentin gabapentin No gabapentin [facility] 300 mg 300 mg 300 mg Family capsule capsule capsule Practi c Take 1 Take 1 Take 1 e capsule 3 capsule 3 capsule 3 times a day times a day times a by oral by oral day by route. route. oral route. gentamicin gentamicin No gentamicin [facility] 0.1 % 0.1 % 0.1 % Family topical topical topical Practi c ointment ointment ointment e Humalog Mix Humalog Mix No Humalog [facility] 50-50 50-50 Mix 50-50 Family KwikPen KwikPen KwikPen Practi c U-100 U-100 U-100 e Insulin 100 Insulin 100 Insulin unit/mL unit/mL 100 subcutaneou subcutaneou unit/mL s pen s pen subcutaneo Inject 60 Inject 60 us pen units TID units TID Inject 60 units TID hydro[facility]ortis [facility] one 2.5 % one 2.5 % sone 2.5 % Family lotion lotion lotion Practic e hydrocortis hydrocortis No hydrocorti [facility] one-pramoxi one-pramoxi sone-pramo Family ne 2.5 %-1 ne 2.5 %-1 xine 2.5 Practic % topical % topical %-1 % e cream APPLY cream APPLY topical A THIN A THIN cream LAYER TO LAYER TO APPLY A AFFECTED AFFECTED THIN LAYER AREA ON AREA ON TO LABIA EVERY LABIA EVERY AFFECTED DAY DAY AREA ON LABIA EVERY DAY ipratropium ipratropium No ipratropu [facility] bromide 42 bromide 42 m bromide Family [...] route. us route. propafenone propafenone No propafenon [facility] 150 mg 150 mg e 150 mg Family tablet Take tablet Take tablet Practic 1 tablet 1 tablet Take 1 e every 8 every 8 tablet hours by hours by every 8 oral route. oral route. hours by oral route. Remedy Remedy No Remedy [facility] Phytoplex Phytoplex Phytoplex Family Z-Guard Z-Guard Z-Guard [...] units daily albuterol albuterol No 3mL TID albuterol [facility] sulfate 2.5 sulfate 2.5 sulfate Family mg/3 [...] route as needed. Analpram-HC Analpram-HC No Analpram-H [place] 2.5 %-1 % 2.5 %-1 % C 2.5 %-1 Family rectal rectal % rectal Practic cream cream cream e Insert by Insert by Insert by rectal rectal rectal route as route as route as needed. needed. needed. BD BD No BD [place] Ultra-Fine Ultra-Fine Ultra-Fine [facility] Short Pen Short Pen Short Pen Practic Needle 31 Needle 31 Needle 31 e gauge x gauge x gauge x /" USE 01/26" USE 01/26" USE UNDER THE UNDER THE UNDER THE SKIN FOUR SKIN FOUR SKIN FOUR TIMES A DAY TIMES A DAY TIMES A DAY benzonatate benzonatate No benzonatat [facility] 200 mg 200 mg e 200 mg [facility] capsule capsule capsule Practi c TAKE 1 TAKE 1 TAKE 1 e CAPSULE BY CAPSULE BY CAPSULE BY MOUTH THREE MOUTH THREE MOUTH TIMES DAILY TIMES DAILY THREE NEEDED NEEDED TIMES DAILY NEEDED Chlorasepti Chlorasepti No 1spray( TID Chlorasept [facility] c Throat c Throat s) ic Throat Fa astrid Wilson 1.4 % Wilson 1.4 % Wilson 1.4 Practic aerosol aerosol % aerosol e Take 1 Take 1 Take 1 spray 3 spray 3 spray 3 times a day times a day times a by mucous by mucous day by route as route as mucous needed. needed. route as needed. clobetasol clobetasol No clobetasol [facility] 0.05 % 0.05 % 0.05 % [facility] scalp scalp scalp Practic solution solution solution e APPLY A APPLY A APPLY A THIN LAYER THIN LAYER THIN LAYER TO HAIR TO HAIR TO HAIR HALF AN HALF AN HALF AN HOUR BEFORE HOUR BEFORE HOUR WASHING WASHING BEFORE HAIR HAIR WASHING HAIR clobetasol clobetasol No clobetasol [facility] 0.05 % 0.05 % 0.05 % [facility] topical topical topical Practi c ointment ointment ointment e APPLY A APPLY A APPLY A THIN LAYER THIN LAYER THIN LAYER TO HAIR TO HAIR TO HAIR HALF AN HALF AN HALF AN HOUR BEFORE HOUR BEFORE HOUR WASHING WASHING BEFORE HAIR HAIR WASHING HAIR donepezil donepezil No donepezil [facility] 10 mg 10 mg 10 mg [facility] tablet Take tablet Take tablet Practic 1 tablet 1 tablet Take 1 e every day every day tablet by oral by oral every day route at route at by oral bedtime. bedtime. route at bedtime. econazole 1 econazole 1 No econazole [place] % topical % topical 1 % Famil y cream cream topical Practic cream e ergocalcife ergocalcife No ergocalcif [facility] van power Family (vitamin (vitamin (vitamin Pra ctic D2) 1,250 D2) 1,250 D2) 1,250 e mcg (50,000 mcg (50,000 mcg unit) unit) (50,000 capsule capsule unit) Take 1 Take 1 capsule capsule capsule Take 1 every week every week capsule by oral by oral every week route. route. by oral route. fluocinonid fluocinonid No fluocinoni [facility] e 0.05 % e 0.05 % de 0.05 % Fa astrid topical topical topical Practi c solution solution solution e APPLY A APPLY A APPLY A THIN LAYER THIN LAYER THIN LAYER TO SCALP TO SCALP TO SCALP TWICE A TWICE A TWICE A WEEK WEEK WEEK fluticasone fluticasone No fluticason [facility] propionate propionate e Fam aissatou 50 50 [...] folic acid folic acid No folic acid [facility] 1 mg tablet 1 mg tablet 1 mg F amily tablet Practic e FreeStyle FreeStyle No FreeStyle [facility] Lorraine 14 Lorraine 14 Lorraine 14 Fam aissatou Day Sensor Day Sensor Day Sensor Practic kit CHANGE kit CHANGE kit CHANGE e SENSORS Q SENSORS Q SENSORS Q 14 DAYS 14 DAYS 14 DAYS FreeStyle FreeStyle No FreeStyle [facility] Lorraine 2 Lorraine 2 Lorraine 2 Family Sensor Sensor Sensor Practic change q14 change q14 change q14 e days days days furosemide furosemide No furosemide [facility] 40 mg 40 mg 40 mg Family tablet Take tablet Take tablet Practic 1 tablet 1 tablet Take 1 e every day every day tablet by oral by oral every day route as route as by oral needed. needed. route as needed. gabapentin gabapentin No gabapentin [facility] 300 mg 300 mg 300 mg Family capsule capsule capsule Practi c Take 1 Take 1 Take 1 e capsule 3 capsule 3 capsule 3 times a day times a day times a by oral by oral day by route. route. oral route. gentamicin gentamicin No gentamicin [facility] 0.1 % 0.1 % 0.1 % Family [...] LABIA EVERY DAY ipratropium ipratropium No ipratropiu [facility] bromide 42 bromide 42 m bromide Family mcg (0.06 mcg (0.06 42 mcg Pra ctic %) nasal %) nasal (0.06 %) e spray spray nasal spray ketoconazol ketoconazol No ketoconazo [place] e 2 % e 2 % le 2 % Family topical topical topical Practi c cream cream cream e levofloxaci levofloxaci No levofloxac [facility] n 500 mg n 500 mg in [...] Practic patch e loratadine loratadine No loratadine [facility] 10 mg 10 mg 10 mg Family tablet tablet tablet Practic e meperidine meperidine No meperidine [facility] 50 mg 50 mg 50 mg Family [...] PAIN CHEST PAIN nystatin nystatin No nystatin [facility] 100,000 100,000 100,000 Family unit/gram unit/gram unit/gram Practic topical topical topical e cream APPLY cream APPLY cream TOPICALLY TOPICALLY APPLY TO THE TO THE TOPICALLY AFFECTED AFFECTED TO THE AREA TWICE AREA TWICE AFFECTED DAILY DAILY AREA TWICE DAILY nystatin-tr nystatin-tr No nystatin-t [facility] iamcinolone iamcinolone riamcinolo Family 100,000 100,000 ne 100,000 Pra ctic unit/g-0.1 unit/g-0.1 unit/g-0.1 e % topical % topical % topical cream cream cream OneTouch OneTouch No OneTouch [facility]ica Family Lancets 30 Lancets 30 Lancets 30 Practic gauge Check gauge Check gauge e blood sugar blood sugar Check 3 times per 3 times per blood day day sugar 3 times per day OneTouch OneTouch No OneTouch [facility] Verio test Verio test Verio test Family [...] route. promethazin promethazin No 5mL Q4H promethazi [facility] e-DM 6.25 e-DM 6.25 ne-DM 6.25 Family mg-15 mg/5 mg-15 mg/5 mg-15 mg/5 Practic mL oral mL oral mL oral e syrup Take syrup Take syrup Take 5 mL every 5 mL every 5 mL every 4 hours by 4 hours by 4 hours by oral route oral route oral route as needed. as needed. as needed. propafenone propafenone No propafenon [facility] 150 mg 150 mg e 150 mg [...] daily units daily Inject 54 units daily Vital Signs Vital Name Observation Time Observation Value Comments Source Body Weight 2023-01-28 00:00:00 357 [lb_av] [facility] Oxygen saturation in 2023-01-13 07:00:00 95 /min [facility] Arterial blood by [facility] Pulse oximetry Branch Systolic blood 2023-01-13 07:00:00 111 mm[Hg] [facility] Diastolic blood 2023-01-13 07:00:00 46 mm[Hg] [facility] Heart rate 2023-01-13 07:00:00 65 /min [facility] Respiratory rate 2023-01-13 07:00:00 16 /[facility] temperature 2023-01-13 04:34:00 36.67 [facility] Body height 2023-01-13 04:34:00 172.7 cm [facility] Body weight 2023-01-13 04:34:00 181.439 kg [facility] BMI 2023-01-13 04:34:00 60.82 kg/m2 [facility] Body Weight 2023-01-01 00:00:00 366 [lb_av] [...] Family Practice Height 2019-05-05 00:00:00 65 [in_i] [facility] BMI (Body Mass 2019-05-05 00:00:00 61.4 kg/m2 [facility] e Family Index) Practice BP Systolic 2019-05-05 00:00:00 142 mm[Hg] [facility] Practice Body Weight 2019-05-05 00:00:00 369 [lb_av] [facility] Family Practice BP Diastolic 2019-03-27 00:00:00 73 mm[Hg] [facility] Family Practice Height 2019-03-27 00:00:00 65 [in_i] [facility] Family Practice BMI (Body Mass 2019-03-27 00:00:00 61.4 kg/m2 [facility] e Family Index) Practice BP Systolic 2019-03-27 00:00:00 152 mm[Hg] [facility] Practice Body Weight 2019-03-27 00:00:00 369 [lb_av] [facility] Practice BP Diastolic 2018-12-20 00:00:00 53 mm[Hg] [facility] Practice Height 2018-12-20 00:00:00 65 [in_i] [facility] Practice BP Systolic 2018-12-20 00:00:00 150 mm[Hg] [facility] Systolic blood 2022-06-13 21:09:06 157 mm[Hg] [facility] pressure Diastolic blood 2022-06-13 21:09:06 80 mm[Hg] [facility] pressure Heart rate 2022-06-13 21:09:06 81 /min [facility] Body temperature 2022-06-13 21:09:06 37.11 [facility] Respiratory rate 2022-06-13 21:09:06 20 /min [facility] Oxygen saturation in 2022-06-13 21:09:06 92 /min [facility] Arterial blood by Pulse oximetry Body height 2022-06-12 16:19:00 167.6 cm [facility] Body weight 2022-06-12 16:19:00 164.202 kg [facility] BMI 2022-06-12 16:19:00 58.43 kg/m2 [facility] Diastolic (mm Hg) 2018-03-21 19:20:[facility] Systolic (mm Hg) 2018-03-21 19:20:00 [facility] Weight 2018-03-21 19:20:00 [facility] Height 2018-03-21 19:20:00 [facility] Diastolic (mm Hg) 2017-09-09 15:10:00 Mem [facility] Systolic (mm Hg) 2017-09-09 15:10:00 [facility] Weight 2017-09-09 15:10:00 [facility] Height 2017-09-09 15:10:00 [facility] Diastolic (mm Hg) 2017-06-30 20:40:00 [facility] Systolic (mm Hg) 2017-06-30 20:40:00 [facility] Weight 2017-06-30 20:40:00 [facility] Height 2017-06-30 20:40:00 [facility] Diastolic (mm Hg) 2017-02-24 19:40:00 [facility] Systolic (mm Hg) 2017-02-24 19:40:00 [facility] Weight 2017-02-24 19:40:00 [facility] Height 2017-02-24 19:40:00 [facility] Diastolic (mm Hg) 2016-12-16 20:10:00 [facility] Systolic (mm Hg) 2016-12-16 20:10:00 [facility] Weight 2016-12-16 20:10:00 [facility] Height 2016-12-16 20:10:00 [facility] Diastolic (mm Hg) 2016-08-17 21:00:00 [facility] Systolic (mm Hg) 2016-08-17 21:00:00 [facility] Weight 2016-08-17 21:00:00 [facility] Height 2016-08-17 21:00:00 [facility] Diastolic (mm Hg) 2016-07-15 19:30:00 Mem [facility] Systolic (mm Hg) 2016-07-15 19:30:00 [facility] Weight 2016-07-15 19:30:00 [facility] Height 2016-07-15 19:30:00 [facility] Diastolic (mm Hg) 2016-06-17 18:00:00 [facility] Systolic (mm Hg) 2016-06-17 18:00:00 [facility] Height 2016-06-17 18:00:00 [facility] Diastolic (mm Hg) 2016-02-19 20:00:00 [facility] Systolic (mm Hg) 2016-02-19 20:00:00 [facility] Weight 2016-02-19 20:00:00 [facility] Height 2016-02-19 20:00:00 [facility] Diastolic (mm Hg) 2016-02-12 20:00:00 [facility] Systolic (mm Hg) 2016-02-12 20:00:00 [facility] Weight 2016-02-12 20:00:00 [facility] Height 2016-02-12 20:00:00 [facility] Systolic (mm Hg) 2015-02-19 01:13:00 [facility] Diastolic (mm Hg) 2015-02-19 01:13:00 [facility] Temperature Oral (F) 2015-02-19 01:13:00 98.4 F [facility] Heart Rate 2015-02-19 01:13:00 [facility] Respitory Rate 2015-02-19 01:13:00 [facility] Systolic (mm Hg) 2015-02-18 19:51:00 [facility] Diastolic (mm Hg) 2015-02-18 19:51:00 [facility] Respitory Rate 2015-02-18 19:51:00 [facility] Heart Rate 2015-02-18 19:51:00 [facility] Temperature Oral (F) 2015-02-18 19:51:00 98.1 F [facility] Diastolic (mm Hg) 2014-05-08 19:00:00 Mem [facility] Systolic (mm Hg) 2014-05-08 19:00:00 [facility] mas[facility]l [facility] Weight 2014-05-08 19:00:00 [facility] Height 2014-05-08 19:00:00 [facility] Diastolic (mm Hg) 2014-01-08 21:00:00 Mem [facility] Systolic (mm Hg) 2014-01-08 21:00:00 [facility] Height 2014-01-08 21:00:00 [facility] Diastolic (mm Hg) 2013-12-06 20:00:00 Mem [facility] Systolic (mm Hg) 2013-12-06 20:00:00 [facility] Height 2013-12-06 20:00:00 [facility] Diastolic (mm Hg) 2013-08-14 21:30:00 Mem [facility] Systolic (mm Hg) 2013-08-14 21:30:00 [facility] Weight 2013-08-14 21:30:00 [facility] Height 2013-08-14 21:30:00 [facility] Diastolic (mm Hg) 2013-05-23 21:00:00 Mem [facility] Systolic (mm Hg) 2013-05-23 21:00:00 [facility] Weight 2013-05-23 21:00:00 [facility] Height 2013-05-23 21:00:00 [facility] Diastolic (mm Hg) 2013-05-23 20:00:00 Mem [facility] Systolic (mm Hg) 2013-05-23 20:00:00 [facility] Weight 2013-05-23 20:00:00 [facility] Height 2013-05-23 20:00:00 [facility] Diastolic (mm Hg) 2013-02-22 20:00:00 [facility] Systolic (mm Hg) 2013-02-22 20:00:00 [facility] Weight 2013-02-22 20:00:00 [facility] Height 2013-02-22 20:00:00 [facility] Diastolic (mm Hg) 2012-12-22 15:30:00 Mem [facility] Systolic (mm Hg) 2012-12-22 15:30:00 [facility] Weight 2012-12-22 15:30:00 [facility] Height 2012-12-22 15:30:00 [facility] Procedures Procedure Date / Time Performing Clinician Source Performed XR TOES 2 VW LEFT 2023-01-13 06:44:00 Criss Mckinney [facility] XR CHEST 1 VW 2023-01-13 06:43:00 Criss Mckinney [facility] URINALYSIS 2023-01-13 06:11:00 Criss Mckinney [facility] TROPONIN I 2023-01-13 05:49:00 Criss Mckinney [facility] COMP. METABOLIC PANEL 2023-01-13 05:49:00 Criss Mckinney [facility] ([id number]) [facility] CBC WITH DIFF 2023-01-13 05:49[facility] INR 2023-01-13 05:49:00 Criss Mckinney [facility] ACTIVATED PARTIAL 2023-01-13 05:49:00 Criss Mckinney [facility] N-TERMINAL PRO-BNP 2023-01-13 05:49:00 Criss Mckinney [facility] MAMMO, diagnostic, 2022-07-22 00:00:00 Kalin F amily tomosynthesis, bilateral, Practi ce w/ CAD US, breast, bilateral 2022-07-22 00:00:00 [facility], unilateral, left 2022-07-21 00:00:00 [facility] US, breast, left Practice POC GLUCOSE 2022-06-13 22:04:00 Moosavi, Man Kim [facility] POC GLUCOSE 2022-06-13 21:10:00 Moosavi, Manmelinda [facility] POC GLUCOSE 2022-06-13 17:20:00 Moosavi, Manmelinda [facility] POC GLUCOSE 2022-06-13 12:41:00 Moosavi, Manmelinda Kinneyist [facility] COMPREHENSIVE METABOLIC 2022-06-13 08:50:00 [facility] PANEL CBC WITH PLATELET AND 2022-06-13 08:50:00 [facility] DIFFERENTIAL ESTIMATED GFR 2022-06-13 08:50:00 [facility] POC GLUCOSE 2022-06-13 01:12:00 Moosavi, Man Kim [facility] TROPONIN T 2022-06-12 22:48:00 Stephanie aSxena spital POC GLUCOSE 2022-06-12 21:05:00 Moosavi, Manmelinda Kim [facility] TROPONIN T 2022-06-12 19:50:00 Stephanie Saxena Ho spital CT THORACIC SPINE WO 2022-06-12 19:48:54 [facility] CONTRAST CT LUMBAR SPINE WO 2022-06-12 19:48:54 [facility] CONTRAST CT CHEST WO CONTRAST 2022-06-12 19:48:54 [facility] POC GLUCOSE 2022-06-12 19:48:00 Man Cuellar spital [facility] COVID-19 QUALITATIVE 2022-06-12 18:18:00 [facility] RT-PCR XR CHEST 1 VW PORTABLE 2022-06-12 17:45:00 [facility] ECG ED PRELIMINARY 2022-06-12 17:26:39 [facility] INTERPRETATION COMPREHENSIVE METABOLIC 2022-06-12 16:33:00 [facility] 2022-06-12 16:33:00 Stephanie Saxena spital B NATRIURETIC PEPTIDE 2022-06-12 16:33:00 [facility] 2022-06-12 16:33:00 Ministerio Ortega spital CBC WITH PLATELET AND 2022-06-12 16:33:00 Hemanth [facility] DIFFERENTIAL ECG 12-LEAD 2022-06-12 16:28:25 Stephanie Saxena spital PTCA - Percutaneous [facility] transluminal coronary angioplasty Plan of Care Planned Activity Planned Date Details Comments Source Future Scheduled Test 2023-07-09 COVID-19 VACCINE (#1) [facility] 04:46:00 [code = COVID-19 VACCINE (#1)] Future Scheduled Test 2023-07-09 DIABETES: RETINAL EYE [facility] 04:46:00 EXAM [code = DIABETES: RETINAL EYE EXAM] Future Scheduled Test 2023-07-09 DIABETIC FOOT EXAM [facility] 04:46:00 [code = DIABETIC FOOT EXAM] Future Scheduled Test 2023-07-09 URINE MICROALBUMIN [facility] 04:46:00 [code = URINE MICROALBUMIN] Future Scheduled Test 2023-07-09 SHINGLES VACCINES (1 [facility] 04:46:00 of 2) [code = SHINGLES VACCINES (1 of 2)] Future Scheduled Test 2023-07-09 65+ PNEUMOCOCCAL [facility] 04:46:00 VACCINE (2 - PCV) [code = 65+ PNEUMOCOCCAL VACCINE (2 - PCV)] Future Scheduled Test 2023-07-09 INFLUENZA VACCINE [facility] 04:46:00 (#1) [code = INFLUENZA VACCINE (#1)] Future Scheduled Test 2023-02-26 COVID-19 VACCINE (#1) [facility] 18:31:44 [code = COVID-19 VACCINE (#1)] Future Scheduled Test 2023-02-26 DIABETES: RETINAL EYE [facility] 18:31:44 EXAM [code = DIABETES: RETINAL EYE EXAM] Future Scheduled Test 2023-02-26 DIABETIC FOOT EXAM [facility] 18:31:44 [code = DIABETIC FOOT EXAM] Future Scheduled Test 2023-02-26 URINE MICROALBUMIN [facility] 18:31:44 [code = URINE MICROALBUMIN] Future Scheduled Test 2023-02-26 SHINGLES VACCINES (1 [facility] 18:31:44 of 2) [code = SHINGLES VACCINES (1 of 2)] Future Scheduled Test 2023-02-26 65+ PNEUMOCOCCAL [facility] 18:31:44 VACCINE (2 - PCV) [code = 65+ PNEUMOCOCCAL VACCINE (2 - PCV)] Future Scheduled Test 2023-02-26 INFLUENZA VACCINE [facility] 18:31:44 [code = INFLUENZA VACCINE] Future Scheduled Test 2023-02-26 COVID-19 VACCINE (#1) [facility] 18:31:44 [code = COVID-19 VACCINE (#1)] Future Scheduled Test 2023-02-26 DIABETES: RETINAL EYE [facility] 18:31:44 EXAM [code = DIABETES: RETINAL EYE EXAM] Future Scheduled Test 2023-02-26 DIABETIC FOOT EXAM [facility] 18:31:44 [code = DIABETIC FOOT EXAM] Future Scheduled Test 2023-02-26 URINE MICROALBUMIN [facility] 18:31:44 [code = URINE MICROALBUMIN] Future Scheduled Test 2023-02-26 SHINGLES VACCINES (1 [facility] 18:31:44 of 2) [code = SHINGLES VACCINES (1 of 2)] Future Scheduled Test 2023-02-26 65+ PNEUMOCOCCAL [facility] 18:31:44 VACCINE (2 - PCV) [code = 65+ PNEUMOCOCCAL VACCINE (2 - PCV)] Future Scheduled Test 2023-02-26 INFLUENZA VACCINE [facility] 18:31:44 [code = INFLUENZA VACCINE] Diagnostic Test [...] Future Scheduled Test 2023-01-12 COVID-19 VACCINE (#1) [facility] 23:51:46 [code = COVID-19 VACCINE (#1)] Future Scheduled Test 2023-01-12 DIABETES: RETINAL EYE [facility] 23:51:46 EXAM [code = DIABETES: RETINAL EYE EXAM] Future Scheduled Test 2023-01-12 DIABETIC FOOT EXAM [facility] 23:51:46 [code = DIABETIC FOOT EXAM] Future Scheduled Test 2023-01-12 URINE MICROALBUMIN [facility] 23:51:46 [code = URINE MICROALBUMIN] Future Scheduled Test 2023-01-12 SHINGLES VACCINES (1 [facility] 23:51:46 of 2) [code = SHINGLES VACCINES (1 of 2)] Future Scheduled Test 2023-01-12 65+ PNEUMOCOCCAL [facility] 23:51:46 VACCINE (2 - PCV) [code = 65+ PNEUMOCOCCAL VACCINE (2 - PCV)] Future Scheduled Test 2023-01-12 INFLUENZA VACCINE [facility] 23:51:46 [code = INFLUENZA VACCINE] Instructions [facility] Practice Encounters Start End Encounter Admission Attending Care Care Encounter Source Date/Time Date/Time Type Type Clinicians Facility Department ID 2023-06-30 2023-06-30 Outpatient GC_[id number] PRIV PRIV [id number] [facility] 00:00:00 00:00:00 Tenea [id number] Medic al 2023-05-12 2023-05-12 Outpatient GC_[id number]_Ka PRIV PRIV [id number] [facility] 00:00:00 00:00:00 vanessa_Jose [id number] [facility] al 2023-04-28 2023-04-28 Outpatient Franquiz_J_ VFP VFP [id number] [facility] 00:00:00 00:00:00 CHELY [id number] Family Practic e 2023-04-15 2023-04-15 [id number] [facility] 13:25:00 13:25:[address] 2023-02-05 2023-02-05 Outpatient Franquiz_J VFP VFP [id number] [facility] 00:00:00 00:00:00 [id number] Family Practic e 2023-02-05 2023-02-05 Leroy VFP [place] - [id number] [facility] 00:00:00 00:00:00 Kalin Penaloza MD: [id number] Medical - Pract Jan[place] - e [facility], _[facility] [address], [place] [address] , Ph. 2023-01-28 2023-01-28 Outpatient Franquiz_J VFP VFP [id number] [facility] 00:00:00 00:00:00 [id number] Family Practic e 2023-01-28 2023-01-28 Outpatient Franquiz_J VFP VFP [id number] [facility] 00:00:00 00:00:00 [id number] Family Practic e 2023-01-28 2023-01-28 Outpatient Franquiz_J VFP VFP [id number] [facility] 00:00:00 00:00:00 [id number] Family Practic e 2023-01-28 2023-01-28 Leroy VFP [place] - [id number] [facility] 00:00:00 00:00:00 Kalin Penaloza MD: [id number] Medical - Pract Jan[place] - e [facility], _[facility] [address], [place] [address] , Ph. 2023-01-22 2023-01-22 Anna Nolan VFP [place] - [id number] 2 [facility] 00:00:00 00:00:00 Kalin Caballero PA: [id number] Medical - Pract ic Jan[place] - e [facility], [facility] [address], [place] [address] , Ph. 2023-01-12 2023-01-13 Emergency [facility] [id number] Univers 23:35:00 05:21:00 , Criss [facility] [id number] [facility] [id number] [facility] [id number] [place] [address] [place] 2023-01-12 2023-01-13 Emergency X [facility] ERT [id number] Univers 23:35:00 05:21:00 , CRISS danielle [facility] 2023-01-13 2023-01-13 Outpatient Franquiz_J VFP VFP [id number] [facility] 00:00:00 00:00:00 28413 Family Practic e 2023-01-13 2023-01-13 Outpatient Franquiz_J VFP VFP [id number] [facility] 00:00:00 00:00:00 59943 Family Practic e 2023-01-09 2023-01-09 Outpatient Villasana_T VFP VFP 151 [id number] [facility] 00:00:00 00:00:00 _DNU 98182 Family Practic e 2023-01-09 2023-01-09 Outpatient Villasana_T VFP VFP 151 [id number] [facility] 00:00:00 00:00:00 _DNU 35375 Family Practic e 2023-01-09 2023-01-09 Outpatient Franquiz_J VFP VFP [id number] [id number] [facility] 00:00:00 00:00:00 22690 Family Practic e 2023-01-09 2023-01-09 Outpatient Franquiz_J VFP VFP [id number] [id number] [facility] 00:00:00 00:00:00 41544 Family Practic e 2023-01-09 2023-01-09 Outpatient Villasana_T VFP VFP 151 [id number] [facility] 00:00:00 00:00:00 _DNU 12065 Family Practic e 2023-01-09 2023-01-09 Outpatient Villasana_T VFP VFP 151 [id number] [facility] 00:00:00 00:00:00 _DNU 81830 Family Practic e 2023-01-09 2023-01-09 Outpatient Villasana_T VFP VFP 151 [id number] [facility] 00:00:00 00:00:00 _DNU 86226 Family Practic e 2023-01-09 2023-01-09 Outpatient Villasana_T VFP VFP 151 [id number] [facility] 00:00:00 00:00:00 _DNU 18431 Family Practic e 2023-01-09 2023-01-09 Outpatient Villasana_T VFP VFP 151 [id number] [facility] 00:00:00 00:00:00 _DNU 34349 Family Practic e 2023-01-09 2023-01-09 Outpatient Villasana_T VFP VFP 151 [id number] [facility] 00:00:00 00:00:00 _DNU 22074 Family Practic e 2023-01-09 2023-01-09 Outpatient Villasana_T VFP VFP 151 [id number] [facility] 00:00:00 00:00:00 _DNU 81014 Family Practic e 2023-01-01 2023-01-01 Leroy VFP [place] - [id number] V illage 00:00:00 00:00:00 Kalin Penaloza MD: 9055 Medical - Pract leni Dykes [facility] e [place] [address], [place] [address] , Ph. 2022-12-22 2022-12-22 Outpatient Franquiz_J VFP VFP [id number] [facility] 00:00:00 00:00:00 62660 Family Practic e 2022-12-22 2022-12-22 Outpatient Villasana_T VFP VFP 151 [id number] [facility] 00:00:00 00:00:00 _DNU 00060 Family Practic e 2022-12-22 2022-12-22 Outpatient Franquiz_J VFP VFP [id number] [facility] 00:00:00 00:00:00 26852 Family Practic e 2022-12-22 2022-12-22 Outpatient Villasana_T VFP VFP 151 [id number] [facility] 00:00:00 00:00:00 _DNU 48044 Family Practic e 2022-12-08 2022-12-08 Outpatient Franquiz_J VFP VFP [id number] [facility] 00:00:00 00:00:00 58551 Family Practic e 2022-12-08 2022-12-08 Outpatient Villasana_T VFP VFP 151 [id number] [facility] 00:00:00 00:00:00 _DNU 91360 Family Practic e 2022-11-27 2022-11-27 Outpatient Franquiz_J VFP VFP [id number] [facility] 00:00:00 00:00:00 97418 Family Practic e 2022-11-27 2022-11-27 Leroy VFP [place] - [id number] V illage 00:00:00 00:00:00 Kalin Penaloza MD: 9055 Medical - Pract leni Dykes [place] Andria e [facility] [address], [place] [address] , Ph. 2022-11-25 2022-11-25 Outpatient Franquiz_J VFP VFP [id number] [facility] 00:00:00 00:00:00 22392 Family Practic e 2022-10-26 2022-10-26 Outpatient Bernstein_H VFP VFP 151 [id number] [facility] 00:00:00 00:00:00 77429 Family Practic e 2022-10-23 2022-10-23 Outpatient Bernstein_H VFP VFP 151 [id number] [facility] 00:00:00 00:00:00 97969 Family Practic e 2022-08-04 2022-08-04 Outpatient Villasana_T VFP VFP 151 [id number] [facility] 00:00:00 00:00:00 _DNU 79406 Family Practic e 2022-07-28 2022-07-28 Anna B VFP [place] - [id number] [facility] 00:00:00 00:00:00 Kalin Caballero PA: 9055 Medical - Pract ic Jania [facility], VM[facility], [place] [address] , Ph. 2022-07-27 2022-07-27 Outpatient Bernstein_H VFP VFP 151 [id number] [facility] 00:00:00 00:00:00 08585 Family Practic e 2022-07-21 2022-07-21 Outpatient Villasana_T VFP VFP 151 [id number] [facility] 00:00:00 00:00:00 _DNU 42749 Family Practic e 2022-07-21 2022-07-21 Azul VFP [place] - [id number] V illage 00:00:00 00:00:00 MD Fanta: [facility]ou [facility] [facility] [address] [address] , Ph. 2022-06-12 2022-06-13 Emergency Darío Harris 1.2.840.1 [id number] Methodi 11:16:00 19:43:00 MoMan [place] [address] 3.430.2.7 Hospit a .3.871667 l .8 2022-02-26 2022-02-26 Outpatient NAKIA [facility]DA [facility] 7522 [facility] 12:56:00 23:59:00 MICHELLE oviedo 2022-01-11 2022-01-12 Outpatient KAREN MOJICA [facility] 7521 [facility] 01:30:00 12:00:00 ivelisse Sepulveda l 2022-01-06 2022-01-06 Outpatient Villasana_T VFP VFP 151 [id number] [facility] 00:00:00 00:00:00 _DNU Family Practic e 2021-08-07 2021-08-07 Outpatient Bernstein_H VFP VFP 151 [id number] [facility] 11:47:00 11:47:00 28356 Family Practic e 2021-08-07 2021-08-07 Outpatient Bernstein_H VFP VFP 151 [id number] [facility] 11:47:00 11:47:00 47360 Family Practic e 2021-08-07 2021-08-07 Outpatient Bernstein_H VFP VFP 151 [id number] [facility] 11:47:00 11:47:00 04212 Family Practic e 2021-08-07 2021-08-07 Outpatient Bernstein_H VFP VFP 151 [id number] [facility] 00:00:00 00:00:00 38619 Family Practic e 2021-07-04 2021-07-04 Outpatient Bernstein_H VFP VFP 151 [id number] [facility] 03:00:00 03:00:00 10493 Family Practic e 2021-07-04 2021-07-04 Outpatient Villasana_T VFP VFP 151 [id number] [facility] 00:00:00 00:00:00 _VMS 81607 Family Practic e 2021-06-24 2021-06-24 Outpatient Bernstein_H VFP VFP 151 [id number] [facility] 01:58:00 01:58:00 55901 Family Practic e 2021-06-24 2021-06-24 Anna B VFP [place] - [id number] 2 [facility] 00:00:00 00:00:00 [facility], [facility] Velasquez reyez PA: 9001 Medical - Pract ic Jania GU_KIM_[facility], [facility] [address], [place] [address] , Ph. 2021-06-23 2021-06-23 Outpatient Bernstein_H VFP VFP 151 [id number] [facility] 02:37:00 02:37:00 43316 Family Practic e 2021-04-29 2021-04-29 Outpatient Villasana_T VFP VFP 151 [id number] [facility] 08:39:00 08:39:00 _VMS 94581 Family Practic e 2021-03-19 2021-03-19 Outpatient Bernstein_H VFP VFP 151 [id number] [facility] 01:55:00 01:55:00 74199 Family Practic e 2021-03-19 2021-03-19 Outpatient Villasana_T VFP VFP 151 [id number] [facility] 01:55:00 01:55:00 _VMS 52253 Family Practic e 2021-03-13 2021-03-13 Outpatient Villasana_T VFP VFP 151 [id number] [facility] 01:38:00 01:38:00 40235 Family Practic e 2021-03-13 2021-03-13 Anna B VFP [place] - [id number] [facility] 00:00:00 00:00:00 Federico, [facility] PA: 9055 Medical - Pract ic Jania GU_HOU_Memo e [facility] ([facility]) [address] [place] [address] , Ph. 2021-02-05 2021-02-05 Outpatient Villasana_T VFP VFP 151 [id number] [facility] 08:24:00 08:24:00 84740 Family Practic e 2021-02-05 2021-02-05 Outpatient Bernstein_H VFP VFP 151 [id number] [facility] 08:24:00 08:24:00 04488 Family Practic e 2021-02-04 2021-02-04 Outpatient Villasana_T VFP VFP 151 [id number] [facility] 11:54:00 11:54:00 30399 Family Practic e 2021-02-04 2021-02-04 Anna B VFP [place] - [id number] [address] [place] [address] 00:00:00 00:00:00 Federico, [facility] PA: 9055 Medical - Pract ic Jania GU_HOU_[facility]o e [facility] ([facility]) [address] [address] , Ph. 2020-10-28 2020-10-28 Outpatient Bernstein_H VFP VFP 151 [id number] [facility] 12:57:00 12:57:00 65325 Family Practic e 2020-10-28 2020-10-28 Outpatient Bernstein_H VFP VFP 151 [id number] [facility] 12:57:00 12:57:00 79825 Family Practic e 2020-10-28 2020-10-28 Outpatient Bernstein_H VFP VFP 151 [id number] [facility] 12:57:00 12:57:00 34961 Family Practic e 2020-10-16 2020-10-16 Outpatient Bernstein_H VFP VFP 151 [id number] [facility] 12:05:00 12:05:00 73431 Family Practic e 2020-09-25 2020-09-25 Outpatient ARIEL [facility] [id number] [address] [place] [address] 00:00:00 00:00:[address] 2020-07-16 2020-07-16 Outpatient Abreu_A VFP VFP [id number] [place] 10:18:00 10:18:00 21385 Family Practic e 2020-07-16 2020-07-16 Outpatient Abreu_A VFP VFP [id number] [place] 10:18:00 10:18:00 75854 Family Practic e 2020-07-05 2020-07-05 Outpatient Abreu_A VFP VFP [id number] [facility] 10:35:00 10:35:00 23988 Family Practic e 2020-07-04 2020-07-04 Outpatient Villasana_T VFP VFP 151 [id number] [place] 02:46:00 02:46:00 68614 Family Practic e 2020-07-04 2020-07-04 Anna B VFP [place] - [id number] [facility] 00:00:00 00:00:00 Federico [facility] Velasquez reyez PA: 9077 Medical - Pract Jania GU_marta Shah ([facility]) [address], [place] [address] , Ph. 2020-06-11 2020-06-11 Outpatient Abreu_A VFP VFP [id number] [place] 08:19:00 08:19:00 42723 Family Practic e 2020-06-11 2020-06-11 Outpatient Abreu_A VFP VFP [id number] [place] 08:19:00 08:19:00 20855 Family Practic e 2020-06-11 2020-06-11 Outpatient Abreu_A VFP VFP [id number] [place] 08:19:00 08:19:00 26654 Family Practic e 2020-06-11 2020-06-11 Outpatient Abreu_A VFP VFP [id number] [place] 08:19:00 08:19:00 37841 Family Practic e 2020-06-04 2020-06-04 Outpatient Villasana_T VFP VFP 151 [id number] [facility] 01:12:00 01:12:00 37903 Family Practic e 2020-06-04 2020-06-04 Anna B VFP [place] - [id number] 2 [facility] 00:00:00 00:00:00 Kalin Caballero [facility] aissatou PA: 9055 Medical - Pract ic Jania VM_HOU[facility]o e [facility] ([facility]) [address] [address] , Ph. 2020-05-30 2020-05-30 Outpatient Abreu_A VFP VFP [id number] [facility] 03:20:00 03:20:00 31601 Family Practic e 2020-05-30 2020-05-30 Outpatient Villasana_T VFP VFP 151 [id number] [facility] 03:20:00 03:20:00 [id number] Family Practic e 2020-05-30 2020-05-30 Outpatient Abreu_A VFP VFP [id number] [facility] 03:20:00 03:20:00 27427 Family Practic e 2020-04-26 2020-04-26 Outpatient Villasana_T VFP VFP 151 [id number] [facility] 11:23:00 11:23:00 87385 Family Practic e 2020-04-26 2020-04-26 Outpatient Abreu_A VFP VFP [id number] [facility] 11:23:00 11:23:00 89077 Family Practic e 2020-04-23 2020-04-23 Outpatient Villasana_T VFP VFP 151 [id number] [facility] 11:41:00 11:41:00 76907 Family Practic e 2020-04-23 2020-04-23 Anna B VFP [place] - [id number] [facility] 00:00:00 00:00:00 Kalin Caballero [facility] aissatou PA: 9055 Medical - Pract ic Jania [facility] ([facility]) [address], [place] [address] , Ph. 2020-04-12 2020-04-12 Outpatient ODHAV, PETE [facility] [id number] [place] 00:00:00 00:00:[address] 2020-04-12 2020-04-12 Outpatient ODHAV, PETE [facility] [id number] [place] 00:00:00 00:00:[address] 2020-04-11 2020-04-11 Outpatient GUSTAVO KILGOREIL [facility] [id number] [place] 00:00:00 00:00:[address] 2020-04-11 2020-04-11 Outpatient GUSTAVO KILGOREIL [facility] [id number] [place] 00:00:00 00:00:[address] 2020-02-07 2020-02-07 Outpatient Abreu_A VFP VFP [id number] [facility] 04:55:00 04:55:00 37950 Family Practic e 2020-02-07 2020-02-07 Outpatient Abreu_A VFP VFP [id number] [facility] 04:55:00 04:55:00 63380 Family Practic e 2020-02-07 2020-02-07 Outpatient Abreu_A VFP VFP [id number] [facility] 04:55:00 04:55:00 74687 Family Practic e 2020-01-24 2020-01-24 Outpatient Villasana_T VFP VFP 151 [id number] [facility] 11:17:00 11:17:00 75528 Family Practic e 2020-01-24 2020-01-24 Anna B VFP [place] - [id number] [facility] 00:00:00 00:00:00 Federico [facility] Velasquez reyez PA: 9055 Medical - Pract ic Jania GU_[facility] e [facility] ([facility]) [address], [place] [address] , Ph. 2020-01-23 2020-01-23 Outpatient Villasana_T VFP VFP 151 [id number] [facility] 02:20:00 02:20:00 40397 Family Practic e 2019-10-17 2019-10-18 Outpatient MATEO, [facility] [id number] [place] 00:00:00 00:00:00 EARL [address] 2019-09-30 2019-09-30 Emergency JE, [facility] [id number] [place] 00:00:00 00:00:[address] 2019-07-19 2019-07-19 Outpatient Abreu_A VFP VFP [id number] [facility] 09:32:00 09:32:00 [id number] Family Practic e 2019-06-20 2019-06-20 Anna Nolan [facility] [place] - [id number] [facility] 00:00:00 00:00:00 Federico [facility] Velasquez reyez PA: 9055 Family Practic Jania [address], [facility] [address], [place] [address] , Ph. 2019-05-26 2019-05-26 Anna Nolan [facility] [place] - [id number] 3 [facility] 00:00:00 00:00:00 Federico, [facility] aissatou PA: 9055 Family Practic Jania Practice [address], [facility] [address], [place] [address] , Ph. 2019-05-05 2019-05-05 Anna Nolan [facility] [place] - [id number] 3 [facility] 00:00:00 00:00:00 [facility] Velasquez reyez PA: 9055 Family Practic Jania [address], [facility] [address], [place] [address] , Ph. 2019-03-27 2019-03-27 Anna Nolan [facility] [place] - [id number] 5 [facility] 00:00:00 00:00:00 Federico, [facility] Velasquez reyez PA: 9055 Family Practic Jania Practice [address], [facility] [address], [place] [address] , Ph. 2018-12-20 2018-12-20 Anna Nolan [facility] [place] - [id number] 9 [facility] 00:00:00 00:00:00 Federico, [facility] aissatou PA: 9055 Family Practic Jania Practice - [address], [facility] [address], [place] [address] , Ph. 2018-08-10 2018-08-10 Outpatient Comprehen Comprehensi 7 [id number] eClinic 14:54:00 14:54:00 mise ve Heart alQuentin nd Heart Care Care 2018-08-10 2018-08-10 Outpatient Comprehen Comprehensi 7 [id number] eClinic 14:54:00 14:54:00 sive ve Heart alWor nd Heart Care Care 2018-03-21 2018-03-21 Outpatient Comprehen Comprehensi 6 [id number] eClinic 14:20:00 14:20:00 sive ve Heart alWor nd Heart Care Care 2018-03-21 2018-03-21 Outpatient Comprehen Comprehensi 6 [id number] eClinic 14:20:00 14:20:00 sive ve Heart alWor nd Heart Care Care 2017-10-25 2017-10-25 Outpatient Comprehen Comprehensi 6 [id number] eClinic 15:50:00 15:50:00 sive ve Heart alWor nd Heart Care Care 2017-10-25 2017-10-25 Outpatient Comprehen Comprehensi 6 [id number] eClinic 15:50:00 15:50:00 sive ve Heart alWor nd Heart Care Care 2017-09-09 2017-09-09 Outpatient Comprehen Comprehensi 6 [id number] eClinic 09:10:00 09:10:00 sive ve Heart alWor nd Heart Care Care 2017-09-09 2017-09-09 Outpatient Comprehen Comprehensi 6 [id number] eClinic 09:10:00 09:10:00 sive ve Heart alWor nd Heart Care Care 2017-09-08 2017-09-08 Outpatient Comprehen Comprehensi 6 [id number] eClinic 15:19:00 15:19:00 sive ve Heart alWor nd Heart Care Care 2017-09-08 2017-09-08 Outpatient Comprehen Comprehensi 6 [id number] eClinic 15:19:00 15:19:00 sive ve Heart alWor nd Heart Care Care 2017-07-15 2017-07-15 Outpatient Comprehen Comprehensi 6 [id number] eClinic 15:21:00 15:21:00 sive ve Heart alWor nd Heart Care Care 2017-07-15 2017-07-15 Outpatient Comprehen Comprehensi 6 [id number] eClinic 15:21:00 15:21:00 sive ve Heart alWor nd Heart Care Care 2017-07-15 2017-07-15 Outpatient Comprehen Comprehensi 6 [id number] eClinic 14:59:00 14:59:00 sive ve Heart alWor nd Heart Care Care 2017-07-15 2017-07-15 Outpatient Comprehen Comprehensi 6 [id number] eClinic 14:59:00 14:59:00 sive ve Heart alWor nd Heart Care Care 2017-07-02 2017-07-02 Outpatient Comprehen Comprehensi 6 [id number] eClinic 09:57:00 09:57:00 sive ve Heart alWor nd Heart Care Care 2017-07-02 2017-07-02 Outpatient Comprehen Comprehensi 6 [id number] eClinic 09:57:00 09:57:00 sive ve Heart alWor nd Heart Care Care 2017-06-30 2017-06-30 Outpatient Comprehen Comprehensi 5 [id number] eClinic 14:40:00 14:40:00 sive ve Heart alWor nd Heart Care Care 2017-06-30 2017-06-30 Outpatient Comprehen Comprehensi 5 [id number] eClinic 14:40:00 14:40:00 sive ve Heart alWor nd Heart Care Care 2017-06-29 2017-06-29 Outpatient Comprehen Comprehensi 6 [id number] eClinic 17:48:00 17:48:00 sive ve Heart alWor nd Heart Care Care 2017-06-29 2017-06-29 Outpatient Comprehen Comprehensi 6 [id number] eClinic 17:48:00 17:48:00 sive ve Heart alWor nd Heart Care Care 2017-06-09 2017-06-09 Outpatient Comprehen Comprehensi 6 [id number] eClinic 15:39:00 15:39:00 sive ve Heart alWor nd Heart Care Care 2017-06-09 2017-06-09 Outpatient Comprehen Comprehensi 6 [id number] eClinic 15:39:00 15:39:00 sive ve Heart alWor nd Heart Care Care 2017-02-24 2017-02-24 Outpatient Comprehen Comprehensi 5 [id number] eClinic 14:40:00 14:40:00 sive ve Heart alWor nd Heart Care Care 2017-02-24 2017-02-24 Outpatient Comprehen Comprehensi 5 [id number] eClinic 14:40:00 14:40:00 sive ve Heart alWor nd Heart Care Care 2017-02-23 2017-02-23 Outpatient Comprehen Comprehensi 5 [id number] eClinic 15:47:00 15:47:00 sive ve Heart alWor nd Heart Care Care 2017-02-23 2017-02-23 Outpatient Comprehen Comprehensi 5 [id number] eClinic 15:47:00 15:47:00 sive ve Heart alWor nd Heart Care Care 2017-01-27 2017-01-27 Outpatient Comprehen Comprehensi 5 [id number] eClinic 11:02:00 11:02:00 sive ve Heart alWor nd Heart Care Care 2017-01-27 2017-01-27 Outpatient Comprehen Comprehensi 5 [id number] eClinic 11:02:00 11:02:00 sive ve Heart alWor nd Heart Care Care 2017-01-04 2017-01-04 Outpatient Comprehen Comprehensi 5 [id number] eClinic 14:15:00 14:15:00 sive ve Heart alWor nd Heart Care Care 2017-01-04 2017-01-04 Outpatient Comprehen Comprehensi 5 [id number] eClinic 14:15:00 14:15:00 sive ve Heart alWor nd Heart Care Care 2016-12-23 2016-12-23 Outpatient Comprehen Comprehensi 5 [id number] eClinic 10:54:00 10:54:00 sive ve Heart alWor nd Heart Care Care 2016-12-23 2016-12-23 Outpatient Comprehen Comprehensi 5 [id number] eClinic 10:54:00 10:54:00 sive ve Heart alWor nd Heart Care Care 2016-12-22 2016-12-22 Outpatient Comprehen Comprehensi 5 [id number] eClinic 10:40:00 10:40:00 sive ve Heart alWor nd Heart Care Care 2016-12-22 2016-12-22 Outpatient Comprehen Comprehensi 5 [id number] eClinic 10:40:00 10:40:00 sive ve Heart alWor nd Heart Care Care 2016-12-16 2016-12-16 Outpatient Comprehen Comprehensi 5 [id number] eClinic 15:10:00 15:10:00 sive ve Heart alWor nd Heart Care Care 2016-12-16 2016-12-16 Outpatient Comprehen Comprehensi 5 [id number] eClinic 15:10:00 15:10:00 sive ve Heart alWor nd Heart Care Care 2016-12-15 2016-12-15 Outpatient Comprehen Comprehensi 5 [id number] eClinic 15:54:00 15:54:00 sive ve Heart alWor ks Heart Care Care 2016-12-15 2016-12-15 Outpatient Comprehen Comprehensi 5 [id number] eClinic 15:54:00 15:54:00 [facility] 2016-10-01 2016-10-01 lab slip nullFlavo Comprehensi 2e5 1to33-8 Memoria 17:50:00 17:50:00 for lipid r ve Heart 490-4347-9 l panel Care PA [id number] Haylee nn [id number] 2016-10-01 2016-10-01 lab slip nullFlavo Comprehensi 2e5 4mb12-5 Memoria 17:50:00 17:50:00 for lipid r ve Heart 490-4347-9 l panel Care PA [id number] Haylee nn a9b94e 2016-10-01 2016-10-01 lab slip nullFlavo Comprehensi 2e5 0tv29-0 Memoria 17:50:00 17:50:00 for lipid r ve Heart 490-4347-9 l panel Care PA [id number] Haylee nn a9b94e 2016-10-01 2016-10-01 Outpatient Comprehen Comprehensi 5 [id number] eClinic 11:50:00 11:50:00 sive ve Heart [facility] Heart Care PA Care PA 2016-10-01 2016-10-01 Outpatient Comprehen Comprehensi 5 [id number] eClinic 11:50:00 11:50:00 sive ve Heart [facility] Heart Care PA Care PA 2016-09-29 2016-09-29 refill for nullFlavo Comprehensi 4 [id number] Memoria 21:09:00 21:09:00 Praulent r ve Heart 146-4180-b l sent to Care PA [id number] Haylee nn express 2b1a11 scripts 2016-09-29 2016-09-29 refill for nullFlavo Comprehensi 8 [id number] Memoria 21:09:00 21:09:00 Praulent r ve Heart 203-426e-a l sent to Care PA [id number] Haylee nn express 9653e4 scripts 2016-09-29 2016-09-29 refill for nullFlavo Comprehensi 4 [id number] Memoria 21:09:00 21:09:00 Praulent r ve Heart 146-4180-b l sent to Care PA [id number] Haylee nn express 2b1a11 scripts 2016-09-29 2016-09-29 refill for nullFlavo Comprehensi 8 [id number] Memoria 21:09:00 21:09:00 Praulent r ve Heart 203-426e-a l sent to Care PA [id number] [facility] nn express 9653e4 scripts 2016-09-29 2016-09-29 refill for nullFlavo Comprehensi 4 [id number] Memoria 21:09:00 21:09:00 Praulent r ve Heart 146-4180-b l sent to Care PA [id number] Haylee nn express 2b1a11 scripts 2016-09-29 2016-09-29 refill for nullFlavo Comprehensi 8 [id number] Memoria 21:09:00 21:09:00 Praulent r ve Heart 203-426e-a l sent to Care [place] [id number] [facility] nn express 9653e4 scripts 2016-09-29 2016-09-29 Outpatient Comprehen Comprehensi 5 [id number] eClinic 15:09:00 15:09:00 [facility] [place] Care PA 2016-09-29 2016-09-29 Outpatient Comprehen Comprehensi 5 [id number] eClinic 15:09:00 15:09:00 [facility] [place] Care PA 2016-09-21 2016-09-21 message nullFlavo Comprehensi ec27 b4a0-5 Memoria 23:06:00 23:06:00 r ve Heart [id number] l Care PA [id number] [facility] nn [id number] 2016-09-21 2016-09-21 message nullFlavo Comprehensi 96e8 da48-4 Memoria 23:06:00 23:06:00 r ve Heart [id number] l Care PA [id number] [facility] nn [id number] 2016-09-21 2016-09-21 message nullFlavo Comprehensi 21fc a427-a Memoria 23:06:00 23:06:00 r ve Heart [id number] l Care PA [id number] Haylee nn 3dfa6d 2016-09-21 2016-09-21 message nullFlavo Comprehensi ec27 b4a0-5 Memoria 23:06:00 23:06:00 r ve Heart [id number] l Care PA [id number] Haylee nn [id number] 2016-09-21 2016-09-21 message nullFlavo Comprehensi 21fc a427-a Memoria 23:06:00 23:06:00 r ve Heart [id number]-5 l Care PA [id number] Haylee nn 3dfa6d 2016-09-21 2016-09-21 message nullFlavo Comprehensi 96e8 da48-4 Memoria 23:06:00 23:06:00 r ve Heart [id number] l Care PA [id number] Haylee nn b9cd2e 2016-09-21 2016-09-21 message nullFlavo Comprehensi ec27 b4a0-5 Memoria 23:06:00 23:06:00 r ve Heart [id number] l Care PA [id number] [facility] nn [id number] 2016-09-21 2016-09-21 message nullFlavo Comprehensi 21fc a427-a Memoria 23:06:00 23:06:00 r ve Heart [id number] l Care PA [id number] Haylee nn 3dfa6d 2016-09-21 2016-09-21 message nullFlavo Comprehensi 96e8 da48-4 Memoria 23:06:00 23:06:00 r ve Heart [id number] l Care PA [id number] [facility] nn b9cd2e 2016-09-21 2016-09-21 Outpatient Comprehen Comprehensi 5 [id number] [facility]inic 17:06:00 17:06:00 [facility]ive ve [facility] nd [facility] [place] Care PA 2016-09-21 2016-09-21 Outpatient Comprehen Comprehensi 5 [id number] [facility]inic 17:06:00 17:06:00 sive ve Heart alWor nd Heart Care [place] Care PA 2016-09-09 2016-09-09 Unknown nullFlavo Comprehensi 505b 96eb-a Memoria 13:57:00 13:57:00 r ve Heart 7p4-8vom-2 l Care PA 1cd-1a26f0 [facility] nn 7c24a3 2016-09-09 2016-09-09 Unknown nullFlavo Comprehensi 240a f2f8-5 Memoria 13:57:00 13:57:00 r ve Heart 9z1-59m5-d l Care PA 648-fb6b40 [facility]lee nn 827779 6098-12-28 2016-09-09 Unknown nullFlavo Comprehensi 1264 d830-2 Memoria 13:57:00 13:57:00 r ve Heart 751-4316-a l Care PA j63-18k31h [facility]lee nn 1c00d1 2016-09-09 2016-09-09 Unknown nullFlavo Comprehensi 1c2e 55dc-c Memoria 13:57:00 13:57:00 r ve Heart 72f-4b17-9 l Care PA e92-1w65zq [facility] nn b0ce15 2016-09-09 2016-09-09 Unknown nullFlavo Comprehensi 944d 69ea-9 Memoria 13:57:00 13:57:00 r ve Heart 6s8-6r0e-y l Care PA o37-89eq7q [facility]lee nn 1edaa0 2016-09-09 2016-09-09 Unknown nullFlavo Comprehensi 1264 d830-2 Memoria 13:57:00 13:57:00 r ve Heart 751-4316-a l Care PA c14-68o08q [facility]lee nn 1c00d1 2016-09-09 2016-09-09 Unknown nullFlavo Comprehensi 505b 96eb-a Memoria 13:57:00 13:57:00 r ve Heart 5r7-9wvn-6 l Care PA 1cd-1a26f0 [facility]lee nn 7c24a3 2016-09-09 2016-09-09 Unknown nullFlavo Comprehensi 944d 69ea-9 Memoria 13:57:00 13:57:00 r ve Heart 2r1-4w9m-d l Care PA z81-90pa6g [facility]lee nn 1edaa0 2016-09-09 2016-09-09 Unknown nullFlavo Comprehensi 1c2e 55dc-c Memoria 13:57:00 13:57:00 r ve Heart 72f-4b17-9 l Care PA l66-6u54yb [facility] nn b0ce15 2016-09-09 2016-09-09 Unknown nullFlavo Comprehensi 240a f2f8-5 Memoria 13:57:00 13:57:00 r ve Heart 5v9-06f4-p l Care PA 648-fb6b40 [facility] nn 809815 8123-12-28 2016-09-09 Unknown nullFlavo Comprehensi 1264 d830-2 Memoria 13:57:00 13:57:00 r ve Heart 751-4316-a l Care PA g68-85m91o [facility] nn 1c00d1 2016-09-09 2016-09-09 Unknown nullFlavo Comprehensi 505b 96eb-a Memoria 13:57:00 13:57:00 r ve Heart 7s6-8tbw-1 l Care PA 1cd-1a26f0 [facility] nn 7c24a3 2016-09-09 2016-09-09 Unknown nullFlavo Comprehensi 944d 69ea-9 Memoria 13:57:00 13:57:00 r ve Heart 7z0-9y7j-t l Care PA r56-83kl7f [facility] nn 1edaa0 2016-09-09 2016-09-09 Unknown nullFlavo Comprehensi 1c2e 55dc-c Memoria 13:57:00 13:57:00 r ve Heart 72f-4b17-9 l Care PA r63-6y51cn [facility] nn b0ce15 2016-09-09 2016-09-09 Unknown nullFlavo Comprehensi 240a f2f8-5 Memoria 13:57:00 13:57:00 r ve Heart 5u1-89v2-h l Care PA 648-fb6b40 [facility] nn 905208 4530-12-28 2016-09-09 Outpatient Comprehen Comprehensi 5 84724 eClinic 07:57:00 07:57:00 sive ve Heart alWor nd Heart Care PA Care PA 2016-09-09 2016-09-09 Outpatient Comprehen Comprehensi 5 30390 eClinic 07:57:00 07:57:00 sive ve Heart alWor nd Heart Care PA Care PA 2016-08-17 2016-08-17 Unknown nullFlavo Comprehensi a315 8e21-e Memoria 21:00:00 21:00:00 r ve Heart 880-488d-b l Care PA 7bf-44m567 [facility] e93f32 2016-08-17 2016-08-17 Unknown nullFlavo Comprehensi 931f bc7f-6 Memoria 21:00:00 21:00:00 r ve Heart 580-4f75-b l Care PA 18a-eab1ef [facility] 77d8ed 2016-08-17 2016-08-17 Unknown nullFlavo Comprehensi 3d98 abd1-d Memoria 21:00:00 21:00:00 r ve Heart 845-422c-a l Care PA 72b-3f8e58 [facility] e158be 2016-08-17 2016-08-17 Unknown nullFlavo Comprehensi f9d9 f906-3 Memoria 21:00:00 21:00:00 r ve Heart a76-4677-t l Care PA 28b-a3ace5 [facility] 898075 2779-12-05 2016-08-17 Unknown nullFlavo Comprehensi 931f bc7f-6 Memoria 21:00:00 21:00:00 r ve Heart 580-4f75-b l Care PA 18a-eab1ef [facility] 77d8ed 2016-08-17 2016-08-17 Unknown nullFlavo Comprehensi f9d9 f906-3 Memoria 21:00:00 21:00:00 r ve Heart y14-4963-t l Care PA 28b-a3ace5 [facility] 860853 9534-12-05 2016-08-17 Unknown nullFlavo Comprehensi 3d98 abd1-d Memoria 21:00:00 21:00:00 r ve Heart 845-422c-a l Care PA 72b-3f8e58 [facility] e158be 2016-08-17 2016-08-17 Unknown nullFlavo Comprehensi a315 8e21-e Memoria 21:00:00 21:00:00 r ve Heart 880-488d-b l Care PA 7bf-64u620 [facility] e93f32 2016-08-17 2016-08-17 Unknown nullFlavo Comprehensi 931f bc7f-6 Memoria 21:00:00 21:00:00 r ve Heart 580-4f75-b l Care PA 18a-eab1ef [facility] nn 77d8ed 2016-08-17 2016-08-17 Unknown nullFlavo Comprehensi f9d9 f906-3 Memoria 21:00:00 21:00:00 r ve Heart k51-5294-s l Care PA 28b-a3ace5 [facility] nn 584964 6647-12-05 2016-08-17 Unknown nullFlavo Comprehensi 3d98 abd1-d Memoria 21:00:00 21:00:00 r ve Heart 845-422c-a l Care PA 72b-3f8e58 [facility] nn e158be 2016-08-17 2016-08-17 Unknown nullFlavo Comprehensi a315 8e21-e Memoria 21:00:00 21:00:00 r ve Heart 880-488d-b l Care PA 7bf-55d706 [facility] e93f32 2016-08-17 2016-08-17 Outpatient Comprehen Comprehensi 5 53868 eClinic 15:00:00 15:00:00 sive ve Heart alWor nd Heart Care PA Care PA 2016-08-17 2016-08-17 Outpatient Comprehen Comprehensi 5 40301 eClinic 15:00:00 15:00:00 sive ve Heart alWor nd Heart Care PA Care PA 2016-08-13 2016-08-13 2016 nullFlavo Comprehensi 6f9d 1f79-1 Memoria 23:33:00 23:33:00 MEDICARE r ve Heart 103-463c-8 l Care PA 0d5-6342uv [facility] nn 79025x 2016-08-13 2016-08-13 2016 nullFlavo Comprehensi f618 7811-4 Memoria 23:33:00 23:33:00 MEDICARE r ve Heart 8w1-7q87-y l Care PA 401-roo140 [facility] nn 7a0463 2016-08-13 2016-08-13 2016 nullFlavo Comprehensi a51d d5d9-b Memoria 23:33:00 23:33:00 MEDICARE r ve Heart g17-71b0-8 l Care PA 44c-3z6275 [facility] nn f33c7a 2016-08-13 2016-08-132015 nullFlavo Comprehensi 6b6c 45d1-a Memoria 23:33:00 23:33:00 MEDICARE r ve Heart j5y-2z47-8 l Care PA 8b7-m8i014 [facility] nn 43b0d6 2016-08-13 2016-08-132015 nullFlavo Comprehensi c174 612c-1 Memoria 23:33:00 23:33:00 MEDICARE r ve Heart 59a-4796-a l Care PA [id number]-b45e42 [facility] nn 92614b 2016-08-13 2016-08-132015 nullFlavo Comprehensi f670 13c0-8 Memoria 23:33:00 23:33:00 MEDICARE r ve Heart 8a9-5670-9 l Care PA z80-32du89 [facility] nn 314396 2121-12-01 2016-08-132015 nullFlavo Comprehensi 6b6c 45d1-a Memoria 23:33:00 23:33:00 MEDICARE r ve Heart q5q-2a66-0 l Care [place] 3y4-d0u823 [facility] nn 43b0d6 2016-08-13 2016-08-132015 nullFlavo Comprehensi 6f9d 1f79-1 Memoria 23:33:00 23:33:00 MEDICARE r ve Heart 103-463c-8 l Care PA 6u1-5299mv [facility] nn 68138e 2016-08-13 2016-08-132015 nullFlavo Comprehensi f618 7811-4 Memoria 23:33:00 23:33:00 MEDICARE r ve Heart 5y2-1w41-m l Care PA 401-jxz468 [facility] nn 7y5651 2016-08-13 2016-08-132015 nullFlavo Comprehensi f670 13c0-8 Memoria 23:33:00 23:33:00 MEDICARE r ve Heart 7s7-7358-2 l Care PA u88-29ya49 [facility] nn 415575 6608-12-01 2016-08-132015 nullFlavo Comprehensi c174 612c-1 Memoria 23:33:00 23:33:00 MEDICARE r ve Heart 59a-4796-a l Care PA [id number]-b45e42 [facility] nn 27289o 2016-08-13 2016-08-13 2016 nullFlavo Comprehensi a51d d5d9-b Memoria 23:33:00 23:33:00 MEDICARE r ve Heart f45-97z0-8 l Care PA 44c-2c6511 [facility] nn f33c7a 2016-08-13 2016-08-132015 nullFlavo Comprehensi 6b6c 45d1-a Memoria 23:33:00 23:33:00 MEDICARE r ve Heart v7h-5q14-4 l Care PA 6l1-p1p763 [facility] nn 43b0d6 2016-08-13 2016-08-13 2016 nullFlavo Comprehensi 6f9d 1f79-1 Memoria 23:33:00 23:33:00 MEDICARE r ve Heart 103-463c-8 l Care PA 6s2-9662ft [facility] nn 79597e 2016-08-13 2016-08-132015 nullFlavo Comprehensi f618 7811-4 Memoria 23:33:00 23:33:00 MEDICARE r ve Heart 7o9-9a75-t l Care PA 401-slg621 [facility] nn 7s5490 2016-08-13 2016-08-13 2016 nullFlavo Comprehensi f670 13c0-8 Memoria 23:33:00 23:33:00 MEDICARE r ve Heart 7y7-3198-6 l Care PA a24-32fu54 [facility] nn 042315 3445-12-01 2016-08-13 2016 nullFlavo Comprehensi c174 612c-1 Memoria 23:33:00 23:33:00 MEDICARE r ve Heart 59a-4796-a l Care PA [id number]-b45e42 [facility] nn 20352g 2016-08-13 2016-08-13 2016 nullFlavo Comprehensi a51d d5d9-b Memoria 23:33:00 23:33:00 MEDICARE r ve Heart e25-40o3-3 l Care PA 44c-9e5261 [facility] nn f33c7a 2016-08-13 2016-08-13 Outpatient Comprehen Comprehensi 5 81416 eClinic 17:33:00 17:33:00 sive ve Heart alWor nd Heart Care PA Care PA 2016-08-13 2016-08-13 Outpatient Comprehen Comprehensi 5 58058 eClinic 17:33:00 17:33:00 sive ve Heart alWor nd Heart Care PA Care PA 2016-07-15 2016-07-15 Unknown nullFlavo Comprehensi 099c 45c7-4 Memoria 19:30:00 19:30:00 r ve Heart 032-44c1-9 l Care PA 37d-7f9a63 [facility] nn 2effcb 2016-07-15 2016-07-15 Unknown nullFlavo Comprehensi d634 6e1a-f Memoria 19:30:00 19:30:00 r ve Heart af0-4f08-8 l Care PA 75d-2bc21f [facility] nn 14ad74 2016-07-15 2016-07-15 Unknown nullFlavo Comprehensi d195 fcc9-8 Memoria 19:30:00 19:30:00 r ve Heart 5x7-9m41-v l Care PA 77b-466265 [facility] nn e4e07c 2016-07-15 2016-07-15 Unknown nullFlavo Comprehensi f2c8 5afb-9 Memoria 19:30:00 19:30:00 r ve Heart 64a-4f0d-b l Care PA fe6-65q744 [facility] nn b1u917 2016-07-15 2016-07-15 Unknown nullFlavo Comprehensi daaa 230c-a [...] fcc9-8 Memoria 19:30:00 19:30:00 r ve Heart 9t9-6w65-h l Care PA 77b-281914 [facility] nn e4e07c 2016-07-15 2016-07-15 Unknown nullFlavo Comprehensi f2c8 5afb-9 Memoria 19:30:00 19:30:00 r ve Heart 64a-4f0d-b l Care PA fe6-37r159 [facility] nn i3c396 2016-07-15 2016-07-15 Unknown nullFlavo Comprehensi daaa 230c-a [...] fcc9-8 Memoria 19:30:00 19:30:00 r ve Heart 9g4-2z94-b l Care PA 77b-518896 [facility]lee nn e4e07c 2016-07-15 2016-07-15 Unknown nullFlavo Comprehensi f2c8 5afb-9 Memoria 19:30:00 19:30:00 r ve Heart 64a-4f0d-b l Care PA fe6-18s192 [facility] nn t5t280 2016-07-15 2016-07-15 message nullFlavo Comprehensi 0427 719b-e Memoria 15:31:00 15:31:00 r ve Heart daa-4106-a l Care PA b79-02851r [facility] nn 8e4211 2016-07-15 2016-07-15 message nullFlavo Comprehensi 46f3 9e8f-b Memoria 15:31:00 15:31:00 r ve Heart de9-40d1-a l Care PA 26c-e1fa4e [facility] nn f5b0fe 2016-07-15 2016-07-15 message nullFlavo Comprehensi eebe e590-4 Memoria 15:31:00 15:31:00 r ve Heart 4fb-4565-a l Care PA a08-495490 [facility] nn f174a4 2016-07-15 2016-07-15 message nullFlavo Comprehensi f9b3 c1d8-b Memoria 15:31:00 15:31:00 r ve Heart i64-27f0-7 l Care PA ce2-j1749j [facility] nn 765cf8 2016-07-15 2016-07-15 message nullFlavo Comprehensi 3733 8d9b-6 Memoria 15:31:00 15:31:00 r ve Heart 7ba-4002-9 l Care PA x04-6uz3r1 [facility] nn 8628dc 2016-07-15 2016-07-15 message nullFlavo Comprehensi 8647 85b7-a Memoria 15:31:00 15:31:00 r ve Heart bec-48a3-8 l Care PA 9fd-b74e2b [facility] nn hjf912 2016-07-15 2016-07-15 message nullFlavo Comprehensi 5446 3b5c-6 Memoria 15:31:00 15:31:00 r ve Heart eb2-42f1-b l Care PA eb1-3a6563 [facility] nn 0edddd 2016-07-15 2016-07-15 message nullFlavo Comprehensi 3733 8d9b-6 Memoria 15:31:00 15:31:00 r ve Heart 7ba-4002-9 l Care PA m53-6ma6o4 [facility] nn 8628dc 2016-07-15 2016-07-15 message nullFlavo Comprehensi 0427 719b-e Memoria 15:31:00 15:31:00 r ve Heart daa-4106-a l Care PA d18-57313u [facility] nn 1w8147 2016-07-15 2016-07-15 message nullFlavo Comprehensi 46f3 9e8f-b Memoria 15:31:00 15:31:00 r ve Heart de9-40d1-a l Care PA 26c-e1fa4e [facility] nn f5b0fe 2016-07-15 2016-07-15 message nullFlavo Comprehensi 5446 3b5c-6 Memoria 15:31:00 15:31:00 r ve Heart eb2-42f1-b l Care PA eb1-3o7852 [facility] nn 0edddd 2016-07-15 2016-07-15 message nullFlavo Comprehensi 8647 85b7-a Memoria 15:31:00 15:31:00 r ve Heart bec-48a3-8 l Care PA 9fd-b74e2b [facility] nn oce463 2016-07-15 2016-07-15 message nullFlavo Comprehensi eebe e590-4 Memoria 15:31:00 15:31:00 r ve Heart 4fb-4565-a l Care PA z40-607171 [facility] nn f174a4 2016-07-15 2016-07-15 message nullFlavo Comprehensi f9b3 c1d8-b Memoria 15:31:00 15:31:00 r ve Heart f07-19l4-0 l Care PA ce2-v8549k [facility] nn 765cf8 2016-07-15 2016-07-15 message nullFlavo Comprehensi 3733 8d9b-6 Memoria 15:31:00 15:31:00 r ve Heart 7ba-4002-9 l Care PA h27-9lr6v0 [facility] nn 8628dc 2016-07-15 2016-07-15 message nullFlavo Comprehensi 0427 719b-e Memoria 15:31:00 15:31:00 r ve Heart daa-4106-a l Care PA d57-24297t [facility]lee nn 3y5435 2016-07-15 2016-07-15 message nullFlavo Comprehensi 46f3 9e8f-b Memoria 15:31:00 15:31:00 r ve Heart de9-40d1-a l Care PA 26c-e1fa4e [facility] nn f5b0fe 2016-07-15 2016-07-15 message nullFlavo Comprehensi 5446 3b5c-6 Memoria 15:31:00 15:31:00 r ve Heart eb2-42f1-b l Care PA eb1-5u7793 [facility] nn 0edddd 2016-07-15 2016-07-15 message nullFlavo Comprehensi 8647 85b7-a Memoria 15:31:00 15:31:00 r ve Heart bec-48a3-8 l Care PA 9fd-b74e2b [facility] nn nde085 2016-07-15 2016-07-15 message nullFlavo Comprehensi eebe e590-4 Memoria 15:31:00 15:31:00 r ve Heart 4fb-4565-a l Care PA p72-611168 [facility] nn f174a4 2016-07-15 2016-07-15 message nullFlavo Comprehensi f9b3 c1d8-b Memoria 15:31:00 15:31:00 r ve Heart j86-47c0-2 l Care PA ce2-f5487a [facility] nn 765cf8 2016-07-15 2016-07-15 message nullFlavo Comprehensi 849e 8048-f Memoria 14:31:00 14:31:00 r ve Heart 57e-496a-a l Care PA 7j2-g7764i [facility] nn 32d15f 2016-07-15 2016-07-15 message nullFlavo Comprehensi 849e 8048-f Memoria 14:31:00 14:31:00 r ve Heart 57e-496a-a l Care PA 5p8-r9065f [facility] nn 32d15f 2016-07-15 2016-07-15 message nullFlavo Comprehensi 849e 8048-f Memoria 14:31:00 14:31:00 r ve Heart 57e-496a-a l Care PA 1b2-s4949l [facility] nn 32d15f 2016-07-15 2016-07-15 Outpatient Comprehen Comprehensi 5 [id number] eClinic 13:30:00 13:30:00 sive ve Heart alWor nd Heart Care PA Care PA 2016-07-15 2016-07-15 Outpatient Comprehen Comprehensi 5 09057 eClinic 13:30:00 13:30:00 sive ve Heart alWor nd Heart Care PA Care PA 2016-07-15 2016-07-15 Outpatient Comprehen Comprehensi 5 02622 eClinic 09:31:00 09:31:00 sive ve Heart alWor nd Heart Care PA Care PA 2016-07-15 2016-07-15 Outpatient Comprehen Comprehensi 5 46477 eClinic 09:31:00 09:31:00 sive ve Heart alWor ks Heart Care PA Care PA 2016-06-17 2016-06-17 message re nullFlavo Comprehensi 6 l06542k-6 Memoria 20:50:00 20:50:00 PRALUENT r ve Heart maricruz-4f12-a l [facility] Care PA y1u-f09p55 [facility]lee nn 79596u 2016-06-17 2016-06-17 message re nullFlavo Comprehensi 0 36756w5-9 Memoria 20:50:00 20:50:00 PRALUENT r ve Heart 0z2-4s33-g l [facility] Care PA 2w9-12ws88 [facility] nn fe2fc8 2016-06-17 2016-06-17 message re nullFlavo Comprehensi 5 1b625jx-c Memoria 20:50:00 20:50:00 PRALUENT r ve Heart 6s2-8s8m-h l [facility] Care PA 7c7-4371f9 [facility] nn 5a2cfe 2016-06-17 2016-06-17 message re nullFlavo Comprehensi 3 15ny8i9-k Memoria 20:50:00 20:50:00 PRALUENT r ve Heart 820-4b94-8 l [facility] Care PA fc5-168480 [facility] nn 433fef 2016-06-17 2016-06-17 message re nullFlavo Comprehensi d w3778s8-s Memoria 20:50:00 20:50:00 PRALUENT r ve Heart 6p4-3nj5-0 l [facility] Care PA eff-i5v032 [facility] nn 4dbfd8 2016-06-17 2016-06-17 message re nullFlavo Comprehensi b a02614l-4 Memoria 20:50:00 20:50:00 PRALUENT r ve Heart 47a-4a88-9 l [facility] Care PA fc5-f31a2b [facility] nn a56a7e 2016-06-17 2016-06-17 message re nullFlavo Comprehensi e t9y1y04-6 Memoria 20:50:00 20:50:00 PRALUENT r ve Heart 1w4-1j6j-8 l [facility] Care PA 3ac-45be96 [facility] nn 95160s 2016-06-17 2016-06-17 message re nullFlavo Comprehensi d q2174b1-k Memoria 20:50:00 20:50:00 PRALUENT r ve Heart 0y5-5mk2-4 l [facility] Care PA eff-k8z391 [facility] nn 4dbfd8 2016-06-17 2016-06-17 message re nullFlavo Comprehensi 6 k63386v-8 Memoria 20:50:00 20:50:00 PRALUENT r ve Heart maricruz-4f12-a l [facility] Care PA u9b-b31q74 [facility] nn 68995h 2016-06-17 2016-06-17 message re nullFlavo Comprehensi 0 51185s9-3 Memoria 20:50:00 20:50:00 PRALUENT r ve Heart 7v2-7g31-n l [facility] Care PA 5j1-39ck10 [facility] nn fe2fc8 2016-06-17 2016-06-17 message re nullFlavo Comprehensi e n3z4m93-4 Memoria 20:50:00 20:50:00 PRALUENT r ve Heart 7d4-7d4i-6 l [facility] Care PA 3ac-45be96 [facility] nn 31296m 2016-06-17 2016-06-17 message re nullFlavo Comprehensi b p60361n-4 Memoria 20:50:00 20:50:00 PRALUENT r ve Heart 47a-4a88-9 l [facility] Care PA fc5-f31a2b [facility] nn a56a7e 2016-06-17 2016-06-17 message re nullFlavo Comprehensi 5 3r599xi-g Memoria 20:50:00 20:50:00 PRALUENT r ve Heart 2u8-0y2v-q l [facility] Care PA 6g8-1288v6 [facility] nn 5a2cfe 2016-06-17 2016-06-17 message re nullFlavo Comprehensi 3 23co9f9-d Memoria 20:50:00 20:50:00 PRALUENT r ve Heart 820-4b94-8 l [facility] Care PA fc5-314119 [facility] nn 433fef 2016-06-17 2016-06-17 message re nullFlavo Comprehensi d x6744a1-v Memoria 20:50:00 20:50:00 PRALUENT r ve Heart 9t0-0gj4-4 l [facility] Care PA eff-z0j385 [facility] nn 4dbfd8 2016-06-17 2016-06-17 message re nullFlavo Comprehensi 6 y97997s-8 Memoria 20:50:00 20:50:00 PRALUENT r ve Heart maricruz-4f12-a l [facility] Care PA t1r-a17g69 [facility]lee nn 62361k 2016-06-17 2016-06-17 message re nullFlavo Comprehensi 0 87746q6-6 Memoria 20:50:00 20:50:00 PRALUENT r ve Heart 5v5-7i61-w l [facility] Care PA 7b1-21hw41 [facility] nn fe2fc8 2016-06-17 2016-06-17 message re nullFlavo Comprehensi e c8a9r00-0 Memoria 20:50:00 20:50:00 PRALUENT r ve Heart 2w6-2i8n-2 l [facility] Care PA 3ac-45be96 [facility] nn 41049e 2016-06-17 2016-06-17 message re nullFlavo Comprehensi b w72388g-5 Memoria 20:50:00 20:50:00 PRALUENT r ve Heart 47a-4a88-9 l [facility] Care PA fc5-f31a2b [facility] nn a56a7e 2016-06-17 2016-06-17 message re nullFlavo Comprehensi 5 8s365cn-k Memoria 20:50:00 20:50:00 PRALUENT r ve Heart 4o0-9z4f-v l [facility] Care PA 7x5-7262p9 [facility] nn 5a2cfe 2016-06-17 2016-06-17 message re nullFlavo Comprehensi 3 95oc2p4-d Memoria 20:50:00 20:50:00 PRALUENT r ve Heart 820-4b94-8 l [facility] Care PA fc5-268563 [facility] nn 433fef 2016-06-17 2016-06-17 LAB SLIP nullFlavo Comprehensi 3a8 n5y0y-8 Memoria 20:08:00 20:08:00 FOR LIPID r ve Heart 29c-4d50-8 l PANEL Care PA 259-c16f8f [facility] nn 315faa 2016-06-17 2016-06-17 LAB SLIP nullFlavo Comprehensi 6ca c236q-h Memoria 20:08:00 20:08:00 FOR LIPID r ve Heart 97d-4853-8 l PANEL Care PA cfd-90d964 [facility] nn z9871w 2016-06-17 2016-06-17 LAB SLIP nullFlavo Comprehensi 1c8 40y55-s Memoria 20:08:00 20:08:00 FOR LIPID r ve Heart 93a-49a9-9 l PANEL Care PA 72a-1471ba [facility] nn 2fba23 2016-06-17 2016-06-17 LAB SLIP nullFlavo Comprehensi 6ed gv28f-5 Memoria 20:08:00 20:08:00 FOR LIPID r ve Heart 21a-4475-8 l PANEL Care PA 19c-a802b5 [facility] nn 13x363 2016-06-17 2016-06-17 LAB SLIP nullFlavo Comprehensi ca0 5612f-6 Memoria 20:08:00 20:08:00 FOR LIPID r ve Heart bdb-42fc-9 l PANEL Care PA l20-pm9i57 [facility] nn cb14dc 2016-06-17 2016-06-17 LAB SLIP nullFlavo Comprehensi c0b v85xr-i Memoria 20:08:00 20:08:00 FOR LIPID r ve Heart c4b-1y7b-g l PANEL Care PA g49-4rudi9 [facility] nn a7d1f3 2016-06-17 2016-06-17 LAB SLIP nullFlavo Comprehensi 777 331k4-9 Memoria 20:08:00 20:08:00 FOR LIPID r ve Heart 72d-46a0-9 l PANEL Care PA 948-582f07 [facility] nn 06b06c 2016-06-17 2016-06-17 LAB SLIP nullFlavo Comprehensi ca0 5612f-6 Memoria 20:08:00 20:08:00 FOR LIPID r ve Heart bdb-42fc-9 l PANEL Care PA q23-ke6e61 [facility] nn cb14dc 2016-06-17 2016-06-17 LAB SLIP nullFlavo Comprehensi 3a8 p4m5y-8 Memoria 20:08:00 20:08:00 FOR LIPID r ve Heart 29c-4d50-8 l PANEL Care PA 259-c16f8f [facility] nn 315faa 2016-06-17 2016-06-17 LAB SLIP nullFlavo Comprehensi 6ca n866a-q Memoria 20:08:00 20:08:00 FOR LIPID r ve Heart 97d-4853-8 l PANEL Care PA [id number] Haylee nn [id number] 2016-06-17 2016-06-17 LAB SLIP nullFlavo Comprehensi 777 751r3-2 [facility] 20:08:00 20:08:00 FOR LIPID r ve Heart 72d-46a0-9 l PANEL Care PA [id number] Haylee nn [id number] 2016-06-17 2016-06-17 LAB SLIP nullFlavo Comprehensi c0b [id number]-o [facility] 20:08:00 20:08:00 FOR LIPID r ve Heart s8l-3p2b-e l PANEL Care PA [id number] Haylee nn [id number] 2016-06-17 2016-06-17 LAB SLIP nullFlavo Comprehensi 1c8 88w66-s [facility] 20:08:00 20:08:00 FOR LIPID r ve Heart 93a-49a9-9 l PANEL Care PA 72a-1471ba Haylee nn [id number] 2016-06-17 2016-06-17 LAB SLIP nullFlavo Comprehensi 6ed hx54r-0 [facility] 20:08:00 20:08:00 FOR LIPID r ve Heart 21a-4475-8 l PANEL Care PA [id number]-a802b5 Haylee nn [id number] 2016-06-17 2016-06-17 LAB SLIP nullFlavo Comprehensi ca0 5612f-6 [facility] 20:08:00 20:08:00 FOR LIPID r ve Heart bdb-42fc-9 l PANEL Care PA [id number]-[id number] Haylee nn cb14dc 2016-06-17 2016-06-17 LAB SLIP nullFlavo Comprehensi 3a8 j2k0k-8 [facility] 20:08:00 20:08:00 FOR LIPID r ve Heart 29c-4d50-8 l PANEL Care PA 259-c16f8f Haylee nn 315faa 2016-06-17 2016-06-17 LAB SLIP nullFlavo Comprehensi 6ca w293w-n [facility] 20:08:00 20:08:00 FOR LIPID r ve Heart 97d-4853-8 l PANEL Care PA [id number] Haylee nn [id number] 2016-06-17 2016-06-17 LAB SLIP nullFlavo Comprehensi 777 388w8-6 [facility] 20:08:00 20:08:00 FOR LIPID r ve Heart 72d-46a0-9 l PANEL Care PA [id number] [facility] nn 06b06c 2016-06-17 2016-06-17 LAB SLIP nullFlavo Comprehensi c0b k90ps-e [facility] 20:08:00 20:08:00 FOR LIPID r ve Heart t8d-9u6c-k l PANEL Care PA [id number] [facility] nn [id number] 2016-06-17 2016-06-17 LAB SLIP nullFlavo Comprehensi 1c8 62p21-x [facility] 20:08:00 20:08:00 FOR LIPID r ve Heart 93a-49a9-9 l PANEL Care PA 72a-1471ba [facility] nn [id number] 2016-06-17 2016-06-17 LAB SLIP nullFlavo Comprehensi 6ed pt48d-5 [facility] 20:08:00 20:08:00 FOR LIPID r ve Heart 21a-4475-8 l PANEL Care PA [id number]-[id number] [facility] nn [id number] 2016-06-17 2016-06-17 message re nullFlavo Comprehensi b [id number] [facility] 19:50:00 19:50:00 PRALUENT r ve Heart y65-91u7-0 l [facility] PA 952-3ebdab [facility] nn 7x264s 2016-06-17 2016-06-17 message re nullFlavo Comprehensi c cu73ff4-j [facility] 19:50:00 19:50:00 PRALUENT r ve Heart m13-5295-k l [facility] PA de8-38w897 [facility] nn cd83a0 2016-06-17 2016-06-17 message re nullFlavo Comprehensi 2 m6xd772-5 [facility] 19:50:00 19:50:00 PRALUENT r ve Heart 4u9-2049-c l [facility] PA cc4-a54ec4 [facility] c6bc8b 2016-06-17 2016-06-17 message re nullFlavo Comprehensi 2 6qx46by-y [facility] 19:50:00 19:50:00 PRALUENT r ve Heart c6t-426x-d l [facility] PA [id number]-dy4961 [facility] 1903f0 2016-06-17 2016-06-17 message re nullFlavo Comprehensi b [id number] [facility] 19:50:00 19:50:00 PRALUENT r ve Heart x21-96a3-0 l [facility] PA 952-3ebdab [facility] 1u071y 2016-06-17 2016-06-17 message re nullFlavo Comprehensi c sn18lh5-d [facility] 19:50:00 19:50:00 PRALUENT r ve Heart g08-7769-e l [facility] PA de8-49w970 [facility] cd83a0 2016-06-17 2016-06-17 message re nullFlavo Comprehensi 2 p1wy815-6 [facility] 19:50:00 19:50:00 PRALUENT r ve Heart 8a5-0924-u l [facility] PA cc4-a54ec4 [facility] c6bc8b 2016-06-17 2016-06-17 message re nullFlavo Comprehensi 2 9cp92vy-a [facility] 19:50:00 19:50:00 PRALUENT r ve Heart a1k-580l-q l [facility] PA [id number]-tf6566 [facility] 1903f0 2016-06-17 2016-06-17 message re nullFlavo Comprehensi b [id number]-4 [facility] 19:50:00 19:50:00 PRALUENT r ve Heart g44-78o7-0 l [facility] PA 952-3ebdab [facility] 7y073k 2016-06-17 2016-06-17 message re nullFlavo Comprehensi c bd43yy3-j [facility] 19:50:00 19:50:00 PRALUENT r ve Heart t52-0497-j l [facility] PA de8-01g540 [facility]lee nn cd83a0 2016-06-17 2016-06-17 message re nullFlavo Comprehensi 2 m6wh258-7 [facility] 19:50:00 19:50:00 PRALUENT r ve Heart 7h4-2932-h l [facility] PA cc4-a54ec4 [facility]lee nn c6bc8b 2016-06-17 2016-06-17 message re nullFlavo Comprehensi 2 8bm66yq-a [facility] 19:50:00 19:50:00 PRALUENT r ve Heart b3i-812z-b l [facility] PA [id number]-qs3048 [facility]lee nn [id number] 2016-06-17 2016-06-17 LAB SLIP nullFlavo Comprehensi 7e7 533cd-a [facility] 19:08:00 19:08:00 FOR LIPID r ve Heart r80-3t6x-b l PANEL Care PA 300-18c0af [facility]lee nn ba3cb8 2016-06-17 2016-06-17 LAB SLIP nullFlavo Comprehensi 6b1 m19pz-0 [facility] 19:08:00 19:08:00 FOR LIPID r ve Heart 094-4736-a l PANEL Care PA cde-6fcfc4 [facility]lee nn [id number] 2016-06-17 2016-06-17 LAB SLIP nullFlavo Comprehensi 6cc 29s4t-h [facility] 19:08:00 19:08:00 FOR LIPID r ve Heart 3fb-41e5-9 l PANEL Care PA fc8-0b77a0 [facility]lee nn [id number] 2016-06-17 2016-06-17 LAB SLIP nullFlavo Comprehensi 7e7 533cd-a [facility] 19:08:00 19:08:00 FOR LIPID r ve Heart i26-6u4k-b l PANEL Care PA 300-18c0af [facility]lee nn ba3cb8 2016-06-17 2016-06-17 LAB SLIP nullFlavo Comprehensi 6b1 p16lp-7 [facility] 19:08:00 19:08:00 FOR LIPID r ve Heart 094-4736-a l PANEL Care PA cde-6fcfc4 Haylee nn 3c0e69 2016-06-17 2016-06-17 LAB SLIP nullFlavo Comprehensi 6cc 66u4a-y [facility] 19:08:00 19:08:00 FOR LIPID r ve Heart 3fb-41e5-9 l PANEL Care PA fc8-0b77a0 Haylee nn 7u9546 2016-06-17 2016-06-17 LAB SLIP nullFlavo Comprehensi 7e7 533cd-a Memoria 19:08:00 19:08:00 FOR LIPID r ve Heart g58-7n9w-z l PANEL Care PA 300-18c0af Haylee nn ba3cb8 2016-06-17 2016-06-17 LAB SLIP nullFlavo Comprehensi 6b1 g53vh-9 Memoria 19:08:00 19:08:00 FOR LIPID r ve Heart 094-4736-a l PANEL Care PA cde-6fcfc4 Haylee nn 3c0e69 2016-06-17 2016-06-17 LAB SLIP nullFlavo Comprehensi 6cc 12r8t-v Memoria 19:08:00 19:08:00 FOR LIPID r ve Heart 3fb-41e5-9 l PANEL Care PA fc8-0b77a0 Haylee nn 2x8979 2016-06-17 2016-06-17 Unknown nullFlavo Comprehensi 803b cd7c-8 Memoria 19:00:00 19:00:00 r ve Heart 37a-4580-b l Care PA 722-0u8538 Haylee nn w0427r 2016-06-17 2016-06-17 Unknown nullFlavo Comprehensi 984d d51c-a Memoria 19:00:00 19:00:00 r ve Heart 96f-4d06-a l Care PA 12c-ru240j Haylee nn 9he300 2016-06-17 2016-06-17 Unknown nullFlavo Comprehensi 394b e81b-5 Memoria 19:00:00 19:00:00 r ve Heart 796-40c7-b l Care PA 28e-d01c35 Haylee nn 88f1e6 2016-06-17 2016-06-17 Unknown nullFlavo Comprehensi 154c 58a9-4 Memoria 19:00:00 19:00:00 r ve Heart yahaira-4938-b l Care PA s69-r5936i [facility] f7a61c 2016-06-17 2016-06-17 Unknown nullFlavo Comprehensi 2966 f9ad-2 Memoria 19:00:00 19:00:00 r ve Heart bc7-4618-b l Care PA beb-843b55 [facility] 26793f 2016-06-17 2016-06-17 Unknown nullFlavo Comprehensi 3b4d d3c9-5 Memoria 19:00:00 19:00:00 r ve Heart g9v-3f59-1 l Care PA 4m7-0d8g0e [facility] nn 39f8d3 2016-06-17 2016-06-17 Unknown nullFlavo Comprehensi bc99 9ac0-8 Memoria 19:00:00 19:00:00 r ve Heart d61-403o-1 l Care PA 235-0a46f2 [facility] d103a2 2016-06-17 2016-06-17 Unknown nullFlavo Comprehensi 2966 f9ad-2 Memoria 19:00:00 19:00:00 r ve Heart bc7-4618-b l Care PA beb-843b55 [facility] 41186z 2016-06-17 2016-06-17 Unknown nullFlavo Comprehensi 803b cd7c-8 Memoria 19:00:00 19:00:00 r ve Heart 37a-4580-b l Care PA 722-1y1731 [facility] i2309u 2016-06-17 2016-06-17 Unknown nullFlavo Comprehensi 984d d51c-a Memoria 19:00:00 19:00:00 r ve Heart 96f-4d06-a l Care PA 12c-gi268b [facility] 0hp503 2016-06-17 2016-06-17 Unknown nullFlavo Comprehensi bc99 9ac0-8 Memoria 19:00:00 19:00:00 r ve Heart r32-517y-4 l Care PA 235-0a46f2 [facility] d103a2 2016-06-17 2016-06-17 Unknown nullFlavo Comprehensi 3b4d d3c9-5 Memoria 19:00:00 19:00:00 r ve Heart n7m-5n33-3 l Care PA 8l5-3e4n6y [facility] nn 39f8d3 2016-06-17 2016-06-17 Unknown nullFlavo Comprehensi 394b e81b-5 Memoria 19:00:00 19:00:00 r ve Heart 796-40c7-b l Care PA 28e-d01c35 Haylee nn 88f1e6 2016-06-17 2016-06-17 Unknown nullFlavo Comprehensi 154c 58a9-4 Memoria 19:00:00 19:00:00 r ve Heart yahaira-4938-b l Care PA s18-l4937g [facility] nn f7a61c 2016-06-17 2016-06-17 Unknown nullFlavo Comprehensi 2966 f9ad-2 Memoria 19:00:00 19:00:00 r ve Heart bc7-4618-b l Care PA beb-843b55 [facility] nn 28936n 2016-06-17 2016-06-17 Unknown nullFlavo Comprehensi 803b cd7c-8 Memoria 19:00:00 19:00:00 r ve Heart 37a-4580-b l Care PA 722-3l0260 [facility] nn u4546p 2016-06-17 2016-06-17 Unknown nullFlavo Comprehensi 984d d51c-a Memoria 19:00:00 19:00:00 r ve Heart 96f-4d06-a l Care PA 12c-mn380g [facility] nn 4ny237 2016-06-17 2016-06-17 Unknown nullFlavo Comprehensi bc99 9ac0-8 Memoria 19:00:00 19:00:00 r ve Heart v98-764z-2 l Care PA 235-0a46f2 [facility] nn d103a2 2016-06-17 2016-06-17 Unknown nullFlavo Comprehensi 3b4d d3c9-5 Memoria 19:00:00 19:00:00 r ve Heart l3f-9j02-2 l Care PA 9n0-5a0g9n [facility] nn 39f8d3 2016-06-17 2016-06-17 Unknown nullFlavo Comprehensi 394b e81b-5 Memoria 19:00:00 19:00:00 r ve Heart 796-40c7-b l Care PA 28e-d01c35 [facility] nn 88f1e6 2016-06-17 2016-06-17 Unknown nullFlavo Comprehensi 154c 58a9-4 Memoria 19:00:00 19:00:00 r ve Heart yahaira-4938-b l Care PA k19-t7370e [facility] nn f7a61c 2016-06-17 2016-06-17 Unknown nullFlavo Comprehensi 120b 31a5-6 Memoria 18:00:00 18:00:00 r ve Heart 717-4484-8 l Care PA 7ca-617b02 [facility] nn 252b03 2016-06-17 2016-06-17 Unknown nullFlavo Comprehensi 05c5 52d4-1 Memoria 18:00:00 18:00:00 r ve Heart acb-44e3-8 l Care PA r84-528090 [facility] nn 279e84 2016-06-17 2016-06-17 Unknown nullFlavo Comprehensi 120b 31a5-6 Memoria 18:00:00 18:00:00 r ve Heart 717-4484-8 l Care PA 7ca-617b02 [facility] nn 252b03 2016-06-17 2016-06-17 Unknown nullFlavo Comprehensi 05c5 52d4-1 Memoria 18:00:00 18:00:00 r ve Heart acb-44e3-8 l Care PA n07-539336 [facility] nn 279e84 2016-06-17 2016-06-17 Unknown nullFlavo Comprehensi 120b 31a5-6 Memoria 18:00:00 18:00:00 r ve Heart 717-4484-8 l Care PA 7ca-617b02 [facility] nn 252b03 2016-06-17 2016-06-17 Unknown nullFlavo Comprehensi 05c5 52d4-1 Memoria 18:00:00 18:00:00 r ve Heart acb-44e3-8 l Care PA z56-695631 [facility] nn 279e84 2016-06-17 2016-06-17 Outpatient Comprehen Comprehensi 5 11187 eClinic 14:50:00 14:50:[facility] 2016-06-17 2016-06-17 Outpatient Comprehen Comprehensi 5 99612 eClinic 14:50:00 14:50:00 sive ve Heart alWor nd Heart Care PA Care PA 2016-06-17 2016-06-17 Outpatient Comprehen Comprehensi 5 27348 eClinic 14:08:00 14:08:[facility] Care PA 2016-06-17 2016-06-17 Outpatient Comprehen Comprehensi 5 63820 eClinic 14:08:00 14:08:[facility] Care [facility] 2016-06-17 2016-06-17 Outpatient Comprehen Comprehensi 4 71147 eClinic 13:00:00 13:00:[facility] Care PA 2016-06-17 2016-06-17 Outpatient Comprehen Comprehensi 4 06084 eClinic 13:00:00 13:00:00 [facility] Care PA 2016-06-16 2016-06-162015 nullFlavo Comprehensi be84 9965-c Memoria 22:41:00 22:41:00 MEDICARE r ve Heart 997-4ff6-a l Care PA [id number] Haylee nn 98e036 2016-06-16 2016-06-162015 nullFlavo Comprehensi e44b 99ae-6 Memoria 22:41:00 22:41:00 MEDICARE r ve Heart a86-49n8-l l Care PA 612-1511ce Haylee echols da10d7 2016-06-16 2016-06-162015 nullFlavo Comprehensi 0c50 1094-4 Memoria 22:41:00 22:41:00 MEDICARE r ve Heart 6e6-0x82-n l Care PA 301-179480 Haylee nn 3y3905 2016-06-16 2016-06-16 2016 nullFlavo Comprehensi 4fd9 f754-a Memoria 22:41:00 22:41:00 MEDICARE r ve Heart s24-8747-f l Care PA a50-866k94 Haylee echols e675da 2016-06-16 2016-06-162015 nullFlavo Comprehensi 1e9c 40c8-5 Memoria 22:41:00 22:41:00 MEDICARE r ve Heart 22b-4cef-b l Care PA fdd-hz2350 Haylee kinza [id number] 2016-06-16 2016-06-16 2016 nullFlavo Comprehensi 0e28 1565-4 Memoria 22:41:00 22:41:00 MEDICARE r ve Heart 577-4f63-a l Care PA 88e-76e7af Haylee echols 030b06 2016-06-16 2016-06-162015 nullFlavo Comprehensi a889 cf1d-2 Memoria 22:41:00 22:41:00 MEDICARE r ve Heart 549-4d77-a l Care PA 57f-f23bde Haylee nn 43856a 2016-06-16 2016-06-162015 nullFlavo Comprehensi 1e9c 40c8-5 Memoria 22:41:00 22:41:00 MEDICARE r ve Heart 22b-4cef-b l Care PA fdd-rx2030 Haylee echols [id number] 2016-06-16 2016-06-16 2016 nullFlavo Comprehensi be84 9965-c Memoria 22:41:00 22:41:00 MEDICARE r ve Heart 997-4ff6-a Care PA [id number] [facility] nn 64j543 2016-06-16 2016-06-16 2016 nullFlavo Comprehensi e44b 99ae-6 Memoria 22:41:00 22:41:00 MEDICARE r ve Heart h14-59p4-s l Care PA 612-1511ce Haylee nn da10d7 2016-06-16 2016-06-16 2016 nullFlavo Comprehensi a889 cf1d-2 Memoria 22:41:00 22:41:00 MEDICARE r ve Heart 549-4d77-a l Care PA 57f-f23bde [facility] nn 97249h 2016-06-16 2016-06-16 2016 nullFlavo Comprehensi 0e28 1565-4 Memoria 22:41:00 22:41:00 MEDICARE r ve Heart 577-4f63-a l Care PA 88e-76e7af Haylee nn 030b06 2016-06-16 2016-06-16 2016 nullFlavo Comprehensi 0c50 1094-4 Memoria 22:41:00 22:41:00 MEDICARE r ve Heart 4i3-7c24-v l Care PA [id number] [facility] nn 2d2162 2016-06-16 2016-06-16 2016 nullFlavo Comprehensi 4fd9 f754-a Memoria 22:41:00 22:41:00 MEDICARE r ve Heart z37-1253-f l Care PA s90-061t17 Haylee echols e675da 2016-06-16 2016-06-16 2016 nullFlavo Comprehensi 1e9c 40c8-5 Memoria 22:41:00 22:41:00 MEDICARE r ve Heart 22b-4cef-b l Care PA fdd-fn9334 Haylee echols [id number] 2016-06-16 2016-06-16 2016 nullFlavo Comprehensi be84 9965-c Memoria 22:41:00 22:41:00 MEDICARE r ve Heart 997-4ff6-a l Care PA [id number] Haylee echols [id number] 2016-06-16 2016-06-16 2016 nullFlavo Comprehensi e44b 99ae-6 Memoria 22:41:00 22:41:00 MEDICARE r ve Heart n43-77p8-v l Care PA 612-1511ce Haylee echols da10d7 2016-06-16 2016-06-162015 nullFlavo Comprehensi a889 cf1d-2 Memoria 22:41:00 22:41:00 MEDICARE r ve Heart 549-4d77-a l Care PA 57f-f23bde Haylee echols 96299e 2016-06-16 2016-06-16 2016 nullFlavo Comprehensi 0e28 1565-4 Memoria 22:41:00 22:41:00 MEDICARE r ve Heart 577-4f63-a l Care PA 88e-76e7af Haylee echols 030b06 2016-06-16 2016-06-16 2016 nullFlavo Comprehensi 0c50 1094-4 Memoria 22:41:00 22:41:00 MEDICARE r ve Heart 8f6-1p31-n l Care PA [id number] Haylee kinza [id number] 2016-06-16 2016-06-16 2016 nullFlavo Comprehensi 4fd9 f754-a Memoria 22:41:00 22:41:00 MEDICARE r ve Heart k98-8068-w l Care PA s46-197e97 Haylee kinza e675da 2016-06-16 2016-06-16 2016 nullFlavo Comprehensi 714a 9733-0 Memoria 21:41:00 21:41:00 MEDICARE r ve Heart 0da-4e12-b l Care PA [id number]-o9a128 [facility] nn 6872e8 2016-06-16 2016-06-16 2016 nullFlavo Comprehensi 08d5 96b0-3 Memoria 21:41:00 21:41:00 MEDICARE r ve Heart 469-4eb9-9 l Care PA [id number] [facility] nn c2c8e5 2016-06-16 2016-06-16 2016 nullFlavo Comprehensi 5841 efa2-1 Memoria 21:41:00 21:41:00 MEDICARE r ve Heart 25b-46df-a l Care PA 516-6335aa [facility] nn a3aa90 2016-06-16 2016-06-16 2016 nullFlavo Comprehensi 05da d46a-e Memoria 21:41:00 21:41:00 MEDICARE r ve Heart j09-72i8-e l Care PA 510-5640c8 [facility] nn pr110n 2016-06-16 2016-06-162015 nullFlavo Comprehensi b77c f7b7-4 Memoria 21:41:00 21:41:00 MEDICARE r ve Heart 90e-45d9-8 l Care PA z83-38z58y [facility] nn 314bcb 2016-06-16 2016-06-16 2016 nullFlavo Comprehensi 08d5 96b0-3 Memoria 21:41:00 21:41:00 MEDICARE r ve Heart 469-4eb9-9 l Care PA [id number] [facility] nn c2c8e5 2016-06-16 2016-06-16 2016 nullFlavo Comprehensi 714a 9733-0 Memoria 21:41:00 21:41:00 MEDICARE r ve Heart 0da-4e12-b l Care PA [id number]-l1i522 [facility] nn 6872e8 2016-06-16 2016-06-16 2016 nullFlavo Comprehensi 5841 efa2-1 Memoria 21:41:00 21:41:00 MEDICARE r ve Heart 25b-46df-a l Care PA 516-6335aa [facility] nn a3aa90 2016-06-16 2016-06-162015 nullFlavo Comprehensi 05da d46a-e Memoria 21:41:00 21:41:00 MEDICARE r ve Heart j88-27z3-k l Care PA [id number] [facility] vp154m 2016-06-16 2016-06-162015 nullFlavo Comprehensi b77c f7b7-4 Memoria 21:41:00 21:41:00 MEDICARE r ve Heart 90e-45d9-8 l Care PA b35-20p74c [facility] 314bcb 2016-06-16 2016-06-162015 nullFlavo Comprehensi 08d5 96b0-3 Memoria 21:41:00 21:41:00 MEDICARE r ve Heart 469-4eb9-9 Care PA [id number] [facility] c2c8e5 2016-06-16 2016-06-162015 nullFlavo Comprehensi 714a 9733-0 Memoria 21:41:00 21:41:00 MEDICARE r ve Heart 0da-4e12-b Care [place] [id number] [facility] nn 6872e8 2016-06-16 2016-06-16 2016 nullFlavo Comprehensi 5841 efa2-1 Memoria 21:41:00 21:41:00 MEDICARE r ve Heart 25b-46df-a Care PA [id number] [facility] nn a3aa90 2016-06-16 2016-06-16 2016 nullFlavo Comprehensi 05da d46a-e Memoria 21:41:00 21:41:00 MEDICARE r ve Heart s39-69j0-e Care PA [id number] [facility] nn er300i 2016-06-16 2016-06-16 2016 nullFlavo Comprehensi b77c f7b7-4 Memoria 21:41:00 21:41:00 MEDICARE r ve Heart 90e-45d9-8 Care PA m22-40s93h [facility] nn 314bcb 2016-06-16 2016-06-16 Outpatient Comprehen Comprehensi 5 37405 eClinic 16:41:00 16:41:00 sive ve Heart alWor nd Heart Care PA Care PA 2016-06-16 2016-06-16 Outpatient Comprehen Comprehensi 5 53306 eClinic 16:41:00 16:41:00 sive ve Heart alWor ks Heart Care PA Care PA 2016-06-15 2016-06-15 Labs nullFlavo Comprehensi 0f52 9c81-0 Memoria 14:43:00 14:43:00 r ve Heart 605-401d-8 l Care PA 021-k87463 Haylee nn d0ba9a 2016-06-15 2016-06-15 Labs nullFlavo Comprehensi 5310 bb0d-2 Memoria 14:43:00 14:43:00 r ve Heart 5o6-62l9-6 l Care PA af0-80400l Haylee nn 1273d3 2016-06-15 2016-06-15 Labs nullFlavo Comprehensi de0e 5b74-7 Memoria 14:43:00 14:43:00 r ve Heart u30-3m4a-2 l Care PA t91-848n2d Haylee nn 744672 7357-10-03 2016-06-15 Labs nullFlavo Comprehensi b35c 4f34-8 Memoria 14:43:00 14:43:00 r ve Heart db7-45b3-b l Care PA o73-5f95h1 Haylee nn 14be12 2016-06-15 2016-06-15 Labs nullFlavo Comprehensi aac2 38ae-6 Memoria 14:43:00 14:43:00 r ve Heart o75-7985-9 l Care PA 205-18068u Haylee nn 68d7c1 2016-06-15 2016-06-15 Labs nullFlavo Comprehensi c610 bc5b-7 Memoria 14:43:00 14:43:00 r ve Heart z5w-98x5-9 l Care PA z61-b39ph6 Haylee nn 08d4cd 2016-06-15 2016-06-15 Labs nullFlavo Comprehensi f2b9 24a5-7 Memoria 14:43:00 14:43:00 r ve Heart be7-4e74-a l Care PA h4y-g3ap1l Haylee nn 6g9737 2016-06-15 2016-06-15 Labs nullFlavo Comprehensi aac2 38ae-6 Memoria 14:43:00 14:43:00 r ve Heart o55-0061-9 l Care PA 205-30074d Haylee nn 68d7c1 2016-06-15 2016-06-15 Labs nullFlavo Comprehensi 0f52 9c81-0 Memoria 14:43:00 14:43:00 r ve Heart 605-401d-8 l Care PA 021-l14633 Haylee nn d0ba9a 2016-06-15 2016-06-15 Labs nullFlavo Comprehensi 5310 bb0d-2 Memoria 14:43:00 14:43:00 r ve Heart 0i3-30c4-3 l Care PA af0-74207z Haylee nn 1273d3 2016-06-15 2016-06-15 Labs nullFlavo Comprehensi f2b9 24a5-7 Memoria 14:43:00 14:43:00 r ve Heart be7-4e74-a l Care PA y3e-o2td5r Haylee nn 0s5275 2016-06-15 2016-06-15 Labs nullFlavo Comprehensi c610 bc5b-7 Memoria 14:43:00 14:43:00 r ve Heart l5g-94w9-1 l Care PA e24-v00mp6 Haylee nn 08d4cd 2016-06-15 2016-06-15 Labs nullFlavo Comprehensi de0e 5b74-7 Memoria 14:43:00 14:43:00 r ve Heart k26-5k6g-3 l Care PA t55-831h0q [facility] nn 717298 5442-10-03 2016-06-15 Labs nullFlavo Comprehensi b35c 4f34-8 Memoria 14:43:00 14:43:00 r ve Heart db7-45b3-b l Care PA a05-2l17m6 [facility] nn 14be12 2016-06-15 2016-06-15 Labs nullFlavo Comprehensi aac2 38ae-6 Memoria 14:43:00 14:43:00 r ve Heart k33-8832-5 l Care PA 205-24119a Haylee nn 68d7c1 2016-06-15 2016-06-15 Labs nullFlavo Comprehensi 0f52 9c81-0 Memoria 14:43:00 14:43:00 r ve Heart 605-401d-8 l Care PA 021-g22664 Haylee nn d0ba9a 2016-06-15 2016-06-15 Labs nullFlavo Comprehensi 5310 bb0d-2 Memoria 14:43:00 14:43:00 r ve Heart 7a3-76u6-3 l Care PA af0-30157i Haylee nn 1273d3 2016-06-15 2016-06-15 Labs nullFlavo Comprehensi f2b9 24a5-7 Memoria 14:43:00 14:43:00 r ve Heart be7-4e74-a l Care PA g0r-s0fx1p Haylee nn 8h6232 2016-06-15 2016-06-15 Labs nullFlavo Comprehensi c610 bc5b-7 Memoria 14:43:00 14:43:00 r ve Heart z1z-02e1-3 l Care PA n67-a61uj7 [facility]lee nn 08d4cd 2016-06-15 2016-06-15 Labs nullFlavo Comprehensi de0e 5b74-7 Memoria 14:43:00 14:43:00 r ve Heart l19-8k7u-7 l Care PA r51-643f5b Haylee nn 669665 7454-10-03 2016-06-15 Labs nullFlavo Comprehensi b35c 4f34-8 Memoria 14:43:00 14:43:00 r ve Heart db7-45b3-b l Care PA d62-7l06r4 Haylee nn 14be12 2016-06-15 2016-06-15 Labs nullFlavo Comprehensi 6646 6c65-8 Memoria 13:43:00 13:43:00 r ve Heart 550-43ae-a l Care PA t1x-8443u5 Haylee nn da28bd 2016-06-15 2016-06-15 Labs nullFlavo Comprehensi 3e3e 3ae6-8 Memoria 13:43:00 13:43:00 r ve Heart 70c-42ea-8 l Care PA 78d-853e3e Haylee nn 3bd7df 2016-06-15 2016-06-15 Labs nullFlavo Comprehensi ca11 d680-0 Memoria 13:43:00 13:43:00 r ve Heart t03-1988-0 l Care PA 10f-535272 Haylee nn 7ff8ef 2016-06-15 2016-06-15 Labs nullFlavo Comprehensi 4c5d 42e5-8 Memoria 13:43:00 13:43:00 r ve Heart 744-4ed0-a l Care PA g98-8e7hb7 Haylee nn 9a60fd 2016-06-15 2016-06-15 Labs nullFlavo Comprehensi 633d de05-f Memoria 13:43:00 13:43:00 r ve Heart 29f-4e01-9 l Care PA cc0-f2ed94 Haylee nn 3382c3 2016-06-15 2016-06-15 Labs nullFlavo Comprehensi b019 4e32-4 Memoria 13:43:00 13:43:00 r ve Heart o13-580h-2 l Care PA 24e-8i125o Haylee nn 05q450 2016-06-15 2016-06-15 Labs nullFlavo Comprehensi ca11 d680-0 Memoria 13:43:00 13:43:00 r ve Heart v01-8063-2 l Care PA 10f-940754 Haylee nn 7ff8ef 2016-06-15 2016-06-15 Labs nullFlavo Comprehensi 3e3e 3ae6-8 Memoria 13:43:00 13:43:00 r ve Heart 70c-42ea-8 l Care PA 78d-853e3e Haylee nn 3bd7df 2016-06-15 2016-06-15 Labs nullFlavo Comprehensi 6646 6c65-8 Memoria 13:43:00 13:43:00 r ve Heart 550-43ae-a l Care PA f1j-1802h9 Haylee nn da28bd 2016-06-15 2016-06-15 Labs nullFlavo Comprehensi 4c5d 42e5-8 Memoria 13:43:00 13:43:00 r ve Heart 744-4ed0-a l Care PA h39-3e4iw9 Haylee nn 9a60fd 2016-06-15 2016-06-15 Labs nullFlavo Comprehensi 633d de05-f Memoria 13:43:00 13:43:00 r ve Heart 29f-4e01-9 l Care PA cc0-f2ed94 Haylee nn 3382c3 2016-06-15 2016-06-15 Labs nullFlavo Comprehensi b019 4e32-4 Memoria 13:43:00 13:43:00 r ve Heart a41-376b-5 l Care PA 24e-6f102c Haylee nn 92r912 2016-06-15 2016-06-15 Labs nullFlavo Comprehensi ca11 d680-0 Memoria 13:43:00 13:43:00 r ve Heart b65-1089-3 l Care PA 10f-997624 Haylee nn 7ff8ef 2016-06-15 2016-06-15 Labs nullFlavo Comprehensi 3e3e 3ae6-8 Memoria 13:43:00 13:43:00 r ve Heart 70c-42ea-8 l Care PA 78d-853e3e Haylee nn 3bd7df 2016-06-15 2016-06-15 Labs nullFlavo Comprehensi 6646 6c65-8 Memoria 13:43:00 13:43:00 r ve Heart 550-43ae-a l Care PA z3l-8993t5 Haylee nn da28bd 2016-06-15 2016-06-15 Labs nullFlavo Comprehensi 4c5d 42e5-8 Memoria 13:43:00 13:43:00 r ve Heart 744-4ed0-a l Care PA i60-0z2ya8 Haylee nn 9a60fd 2016-06-15 2016-06-15 Labs nullFlavo Comprehensi 633d de05-f Memoria 13:43:00 13:43:00 r ve Heart 29f-4e01-9 l Care PA cc0-f2ed94 Haylee nn 3382c3 2016-06-15 2016-06-15 Labs nullFlavo Comprehensi b019 4e32-4 Memoria 13:43:00 13:43:00 r ve Heart h23-207n-3 l Care PA 24e-0p169w Haylee nn 22w578 2016-06-15 2016-06-15 Outpatient Comprehen Comprehensi 4 94125 eClinic 08:43:00 08:43:00 sive ve Heart alWor nd Heart Care PA Care PA 2016-06-15 2016-06-15 Outpatient Comprehen Comprehensi 4 47387 eClinic 08:43:00 08:43:00 sive ve Heart alWor nd Heart Care PA Care PA 2016-05-20 2016-05-202015 nullFlavo Comprehensi 5d41 7c19-d Memoria 17:36:00 17:36:00 MEDICARE r ve Heart 34c-411d-8 l Care PA 96c-977aee Haylee nn 3712d1 2016-05-20 2016-05-202015 nullFlavo Comprehensi bab0 9236-f Memoria 17:36:00 17:36:00 MEDICARE r ve Heart o5s-6159-9 l Care PA 097-081919 Haylee nn b88a71 2016-05-20 2016-05-202015 nullFlavo Comprehensi 12fc 662b-1 Memoria 17:36:00 17:36:00 MEDICARE r ve Heart c61-4k4x-4 l Care PA ee4-8255f7 Haylee nn c328db 2016-05-20 2016-05-202015 nullFlavo Comprehensi bc15 09b2-d Memoria 17:36:00 17:36:00 MEDICARE r ve Heart 80d-4db9-8 l Care PA p46-32973u [facility] nn 72p850 2016-05-20 2016-05-202015 nullFlavo Comprehensi 5460 b560-3 Memoria 17:36:00 17:36:00 MEDICARE r ve Heart 3af-43f3-9 l Care PA [id number] [facility] nn [id number] 2016-05-20 2016-05-202015 nullFlavo Comprehensi 66b1 2a34-c Memoria 17:36:00 17:36:00 MEDICARE r ve Heart 3aa-415e-a l Care PA [id number] [facility] nn [id number] 2016-05-20 2016-05-202015 nullFlavo Comprehensi 8699 2d21-1 [facility]oria 17:36:00 17:36:00 MEDICARE r ve Heart 899-4a5a-a l Care PA [id number] [facility] nn [id number] 2016-05-20 2016-05-202015 nullFlavo Comprehensi 5460 b560-3 [facility]oria 17:36:00 17:36:00 MEDICARE r ve Heart 3af-43f3-9 l Care PA [id number] [facility] nn [id number] 2016-05-20 2016-05-202015 nullFlavo Comprehensi 5d41 7c19-d [facility] 17:36:00 17:36:00 MEDICARE r ve Heart 34c-411d-8 l Care PA [id number]-[id number] [facility] nn [id number] 2016-05-20 2016-05-202015 nullFlavo Comprehensi bab0 9236-f [facility]oria 17:36:00 17:36:00 MEDICARE r ve Heart c0n-2938-9 l Care PA [id number] [facility] nn [id number] 2016-05-20 2016-05-202015 nullFlavo Comprehensi 8699 2d21-1 [facility]oria 17:36:00 17:36:00 MEDICARE r ve Heart 899-4a5a-a l Care PA [id number] [facility] nn [id number] 2016-05-20 2016-05-202015 nullFlavo Comprehensi 66b1 2a34-c [facility]oria 17:36:00 17:36:00 MEDICARE r ve Heart 3aa-415e-a l Care PA [id number] [facility] nn [id number] 2016-05-20 2016-05-202015 nullFlavo Comprehensi 12fc 662b-1 [facility] 17:36:00 17:36:00 MEDICARE r ve Heart a69-0a2l-9 l Care PA [id number] [facility] nn [id number] 2016-05-20 2016-05-202015 nullFlavo Comprehensi bc15 09b2-d [facility] 17:36:00 17:36:00 MEDICARE r ve Heart 80d-4db9-8 l Care PA [id number] [facility] nn [id number] 2016-05-20 2016-05-202015 nullFlavo Comprehensi 5460 b560-3 [facility]oria 17:36:00 17:36:00 MEDICARE r ve Heart 3af-43f3-9 l Care PA [id number] [facility] nn [id number] 2016-05-20 2016-05-202015 nullFlavo Comprehensi 5d41 7c19-d [facility] 17:36:00 17:36:00 MEDICARE r ve Heart 34c-411d-8 l Care PA [id number]-[id number] [facility] nn [id number] 2016-05-20 2016-05-202015 nullFlavo Comprehensi bab0 9236-f [facility] 17:36:00 17:36:00 MEDICARE r ve Heart r0h-2343-1 l Care PA [id number] [facility] nn [id number] 2016-05-20 2016-05-202015 nullFlavo Comprehensi 8699 2d21-1 [facility] 17:36:00 17:36:00 MEDICARE r ve Heart 899-4a5a-a l Care PA [id number] [facility] nn [id number] 2016-05-20 2016-05-202015 nullFlavo Comprehensi 66b1 2a34-c [facility] 17:36:00 17:36:00 MEDICARE r ve Heart 3aa-415e-a l Care PA [id number] [facility] nn [id number] 2016-05-20 2016-05-202015 nullFlavo Comprehensi 12fc 662b-1 [facility] 17:36:00 17:36:00 MEDICARE r ve Heart b86-9x1g-2 l Care PA [id number] [facility] nn [id number] 2016-05-20 2016-05-202015 nullFlavo Comprehensi bc15 09b2-d [facility] 17:36:00 17:36:00 MEDICARE r ve Heart 80d-4db9-8 l Care PA [id number] [facility] nn [id number] 2016-05-20 2016-05-202015 nullFlavo Comprehensi 6d61 ff69-d [facility] 16:36:00 16:36:00 MEDICARE r ve Heart 934-429e-b l Care PA [id number] [facility] nn [id number] 2016-05-20 2016-05-202015 nullFlavo Comprehensi 3ef6 50ea-c [facility] 16:36:00 16:36:00 MEDICARE r ve Heart 4a0-6767-y l Care PA [id number]-[id number] [facility] nn [id number] 2016-05-20 2016-05-202015 nullFlavo Comprehensi 9dfd 196c-e [facility] 16:36:00 16:36:00 MEDICARE r ve Heart 274-4405-a l Care PA [id number] [facility] nn [id number] 2016-05-20 2016-05-202015 nullFlavo Comprehensi 7208 f57c-8 [facility] 16:36:00 16:36:00 MEDICARE r ve Heart 668-4990-9 l Care PA [id number] [facility] nn [id number] 2016-05-20 2016-05-202015 nullFlavo Comprehensi fb64 6646-3 [facility] 16:36:00 16:36:00 MEDICARE r ve Heart 41c-453d-8 l Care PA [id number] [facility] nn [id number] 2016-05-20 2016-05-202015 nullFlavo Comprehensi 64f4 ee2c-b [facility] 16:36:00 16:36:00 MEDICARE r ve Heart k92-8s62-6 l Care PA [id number] [facility] nn [id number] 2016-05-20 2016-05-202015 nullFlavo Comprehensi 3c49 7dcb-1 [facility] 16:36:00 16:36:00 MEDICARE r ve Heart abf-4244-9 l Care PA [id number] [facility] nn [id number] 2016-05-20 2016-05-202015 nullFlavo Comprehensi 9dfd 196c-e [facility] 16:36:00 16:36:00 MEDICARE r ve Heart 274-4405-a l Care PA [id number] [facility] nn [id number] 2016-05-20 2016-05-202015 nullFlavo Comprehensi 7208 f57c-8 [facility] 16:36:00 16:36:00 MEDICARE r ve Heart 668-4990-9 l Care PA [id number] [facility] nn [id number] 2016-05-20 2016-05-202015 nullFlavo Comprehensi 3ef6 50ea-c [facility] 16:36:00 16:36:00 MEDICARE r ve Heart 7i9-7991-v l Care PA [id number]-[id number] [facility] nn fe7efe 2016-05-20 2016-05-202015 nullFlavo Comprehensi 6d61 ff69-d [facility] 16:36:00 16:36:00 MEDICARE r ve Heart 934-429e-b l Care PA [id number] [facility] nn [id number] 2016-05-20 2016-05-202015 nullFlavo Comprehensi fb64 6646-3 [facility] 16:36:00 16:36:00 MEDICARE r ve Heart 41c-453d-8 l Care [place] [id number] Haylee kinza [id number] 2016-05-20 2016-05-202015 nullFlavo Comprehensi 64f4 ee2c-b Memoria 16:36:00 16:36:00 MEDICARE r ve Heart a54-8k44-2 l Care PA r91-47c53f [facility] nn 9cb7d5 2016-05-20 2016-05-202015 nullFlavo Comprehensi 3c49 7dcb-1 Memoria 16:36:00 16:36:00 MEDICARE r ve Heart abf-4244-9 l Care PA [id number] Haylee kinza [id number] 2016-05-20 2016-05-202015 nullFlavo Comprehensi 9dfd 196c-e Memoria 16:36:00 16:36:00 MEDICARE r ve Heart 274-4405-a l Care PA 12f-a29f90 [facility] nn [id number] 2016-05-20 2016-05-202015 nullFlavo Comprehensi 7208 f57c-8 Memoria 16:36:00 16:36:00 MEDICARE r ve Heart 668-4990-9 l Care PA [id number] [facility] nn 7724be 2016-05-20 2016-05-202015 nullFlavo Comprehensi 3ef6 50ea-c Memoria 16:36:00 16:36:00 MEDICARE r ve Heart 5i9-1695-s l Care PA 24a-ccf89a Haylee nn fe7efe 2016-05-20 2016-05-202015 nullFlavo Comprehensi 6d61 ff69-d Memoria 16:36:00 16:36:00 MEDICARE r ve Heart 934-429e-b l Care PA 57a-d104f2 [facility] nn 91ac90 2016-05-20 2016-05-202015 nullFlavo Comprehensi fb64 6646-3 Memoria 16:36:00 16:36:00 MEDICARE r ve Heart 41c-453d-8 l Care PA [id number] [facility] kinza [id number] 2016-05-20 2016-05-202015 nullFlavo Comprehensi 64f4 ee2c-b Memoria 16:36:00 16:36:00 MEDICARE r ve Heart m60-6z56-8 l Care PA [id number] Haylee nn 9cb7d5 2016-05-20 2016-05-20 2016 nullFlavo Comprehensi 3c49 7dcb-1 Memoria 16:36:00 16:36:00 MEDICARE r ve Heart abf-4244-9 l Care PA [id number] Haylee nn [id number] 2016-05-20 2016-05-20 Outpatient Comprehen Comprehensi 4 [id number] eClinic 11:36:00 11:36:00 sive ve Heart alWor nd Heart Care PA Care PA 2016-05-20 2016-05-20 Outpatient Comprehen Comprehensi 4 43154 eClinic 11:36:00 11:36:00 sive ve Heart alWor nd Heart Care PA Care PA 2016-04-01 2016-04-02 Outpt Diag nullFlavo [facility] [id number] [id number] Memoria 19:16:00 04:59:00 Services r Outpatient 00 l Imaging Andria montes [facility] 2016-04-01 2016-04-02 Outpt Diag nullFlavo [facility] [id number] Memoria 19:16:00 04:59:00 Services r [facility] 00 l [facility] 2016-04-[facility] 2016-04-02 Outpt Diag nullFlavo [facility] [id number] Memoria 19:16:00 04:59:00 Services r Outpatient 00 l Essie Irizarry 2016-04-01 2016-04-01 Outpatient Physician, [id number] 14:16:00 23:59:00 Non 00 Associated 2016-04-01 2016-04-01 Outpatient Physician, [id number] 14:16:00 23:59:00 Non 00 Associated 2016-02-19 2016-02-19 Unknown nullFlavo Comprehensi c107 b16d-7 Memoria 21:00:00 21:00:00 r ve Heart 7o0-6of6-5 l Care PA 7eb-dc7bf7 Haylee nn [id number] 4708-06-08 2016-02-19 Unknown nullFlavo Comprehensi 4731 01f2-3 Memoria 21:00:00 21:00:00 r ve Heart bb5-47fc-9 l Care PA 321-jh6867 Haylee nn 00cf65 2016-02-19 2016-02-19 Unknown nullFlavo Comprehensi 14a1 6035-c Memoria 21:00:00 21:00:00 r ve Heart 277-4bfe-8 l Care PA l50-lgbvwr Haylee nn 37e8d5 2016-02-19 2016-02-19 Unknown nullFlavo Comprehensi 185e bc7f-1 Memoria 21:00:00 21:00:00 r ve Heart 896-473e-b l Care PA ada-9c2a96 Haylee nn 38425d 2016-02-19 2016-02-19 Unknown nullFlavo Comprehensi a82f 88dd-f Memoria 21:00:00 21:00:00 r ve Heart 611-4309-b l Care PA h87-989uqs Haylee nn fdf39a 2016-02-19 2016-02-19 Unknown nullFlavo Comprehensi b1db 8937-e Memoria 21:00:00 21:00:00 r ve Heart e9g-3516-d l Care PA 335-6e03af Haylee nn b34a5e 2016-02-19 2016-02-19 Unknown nullFlavo Comprehensi 2e83 c0c4-e Memoria 21:00:00 21:00:00 r ve Heart l8a-77y1-6 l Care PA 354-25135n Haylee nn e508cf 2016-02-19 2016-02-19 Unknown nullFlavo Comprehensi a82f 88dd-f Memoria 21:00:00 21:00:00 r ve Heart 611-4309-b l Care PA r72-395pnt Haylee nn fdf39a 2016-02-19 2016-02-19 Unknown nullFlavo Comprehensi c107 b16d-7 Memoria 21:00:00 21:00:00 r ve Heart 8y8-5js8-9 l Care PA 7eb-dc7bf7 Haylee nn 473690 2417-06-08 2016-02-19 Unknown nullFlavo Comprehensi 4731 01f2-3 Memoria 21:00:00 21:00:00 r ve Heart bb5-47fc-9 l Care PA 321-iu4670 Haylee nn 00cf65 2016-02-19 2016-02-19 Unknown nullFlavo Comprehensi 2e83 c0c4-e Memoria 21:00:00 21:00:00 r ve Heart e3p-88z0-5 l Care PA 354-15260d Haylee nn e508cf 2016-02-19 2016-02-19 Unknown nullFlavo Comprehensi b1db 8937-e Memoria 21:00:00 21:00:00 r ve Heart h5q-1627-r l Care PA 335-6e03af Haylee nn b34a5e 2016-02-19 2016-02-19 Unknown nullFlavo Comprehensi 14a1 6035-c Memoria 21:00:00 21:00:00 r ve Heart 277-4bfe-8 l Care PA v11-cpyuua Haylee nn 37e8d5 2016-02-19 2016-02-19 Unknown nullFlavo Comprehensi 185e bc7f-1 Memoria 21:00:00 21:00:00 r ve Heart 896-473e-b l Care PA ada-9c2a96 Haylee nn 05340b 2016-02-19 2016-02-19 Unknown nullFlavo Comprehensi a82f 88dd-f Memoria 21:00:00 21:00:00 r ve Heart 611-4309-b l Care PA y97-064xxg [facility] nn fdf39a 2016-02-19 2016-02-19 Unknown nullFlavo Comprehensi c107 b16d-7 Memoria 21:00:00 21:00:00 r ve Heart 7t2-5dy9-6 l Care PA 7eb-dc7bf7 Haylee nn 739305 5278-06-08 2016-02-19 Unknown nullFlavo Comprehensi 4731 01f2-3 Memoria 21:00:00 21:00:00 r ve Heart bb5-47fc-9 l Care PA 321-gr8772 Haylee nn 00cf65 2016-02-19 2016-02-19 Unknown nullFlavo Comprehensi 2e83 c0c4-e Memoria 21:00:00 21:00:00 r ve Heart o4d-71x5-2 l Care PA 354-87683a [facility] nn e508cf 2016-02-19 2016-02-19 Unknown nullFlavo Comprehensi b1db 8937-e Memoria 21:00:00 21:00:00 r ve Heart z1l-0070-z l Care PA 335-6e03af [facility] nn b34a5e 2016-02-19 2016-02-19 Unknown nullFlavo Comprehensi 14a1 6035-c Memoria 21:00:00 21:00:00 r ve Heart 277-4bfe-8 l Care PA x26-tfcdhu [facility] nn 37e8d5 2016-02-19 2016-02-19 Unknown nullFlavo Comprehensi 185e bc7f-1 Memoria 21:00:00 21:00:00 r ve Heart 896-473e-b l Care PA ada-9c2a96 [facility] nn 52487k 2016-02-19 2016-02-19 Unknown nullFlavo Comprehensi 0c4a f12d-a Memoria 20:00:00 20:00:00 r ve Heart 246-4eb9-a l Care PA b92-4a6898 [facility] nn f3bb62 2016-02-19 2016-02-19 Unknown nullFlavo Comprehensi 6625 7a89-d Memoria 20:00:00 20:00:00 r ve Heart d5u-3l06-3 l Care PA 29b-e1c53b [facility] nn 81da30 2016-02-19 2016-02-19 Unknown nullFlavo Comprehensi 14b0 72fb-f Memoria 20:00:00 20:00:00 r ve Heart bcd-47e0-a l Care PA u2m-q62i2w [facility] nn 857ec2 2016-02-19 2016-02-19 Unknown nullFlavo Comprehensi 61af f3db-d Memoria 20:00:00 20:00:00 r ve Heart a52-60xr-5 l Care PA 79e-9fab5c [facility] nn 6b8d3b 2016-02-19 2016-02-19 Unknown nullFlavo Comprehensi 6ea2 5a2c-a Memoria 20:00:00 20:00:00 r ve Heart 7be-4e2d-8 l Care PA 250-088a26 [facility] nn 3eb9c9 2016-02-19 2016-02-19 Unknown nullFlavo Comprehensi 2a79 90fd-3 Memoria 20:00:00 20:00:00 r ve Heart 74a-4810-b l Care PA t46-585y47 Haylee nn 4da1e1 2016-02-19 2016-02-19 Unknown nullFlavo Comprehensi 9343 f733-4 Memoria 20:00:00 20:00:00 r ve Heart o60-1428-n l Care PA l8a-f301gu Haylee nn 909657 2943-06-08 2016-02-19 Unknown nullFlavo Comprehensi cb28 c545-2 Memoria 20:00:00 20:00:00 r ve Heart c1q-8v90-5 l Care PA 552-04b1fa [facility] nn 16529n 2016-02-19 2016-02-19 Unknown nullFlavo Comprehensi 14b0 72fb-f Memoria 20:00:00 20:00:00 r ve Heart bcd-47e0-a l Care PA t0h-n54i2l [facility] nn 857ec2 2016-02-19 2016-02-19 Unknown nullFlavo Comprehensi 61af f3db-d Memoria 20:00:00 20:00:00 r ve Heart j39-96bt-0 l Care PA 79e-9fab5c [facility] nn 6b8d3b 2016-02-19 2016-02-19 Unknown nullFlavo Comprehensi 6625 7a89-d Memoria 20:00:00 20:00:00 r ve Heart f1s-5z10-8 l Care PA 29b-e1c53b [facility] nn 81da30 2016-02-19 2016-02-19 Unknown nullFlavo Comprehensi 0c4a f12d-a Memoria 20:00:00 20:00:00 r ve Heart 246-4eb9-a l Care PA e90-3n4844 [facility] nn f3bb62 2016-02-19 2016-02-19 Unknown nullFlavo Comprehensi 2a79 90fd-3 Memoria 20:00:00 20:00:00 r ve Heart 74a-4810-b l Care PA q05-603k95 [facility] nn 4da1e1 2016-02-19 2016-02-19 Unknown nullFlavo Comprehensi 6ea2 5a2c-a Memoria 20:00:00 20:00:00 r ve Heart 7be-4e2d-8 l Care PA 250-088a26 Haylee nn 3eb9c9 2016-02-19 2016-02-19 Unknown nullFlavo Comprehensi 9343 f733-4 Memoria 20:00:00 20:00:00 r ve Heart r98-2469-k l Care PA i6k-f658tu Haylee nn 987855 4155-06-08 2016-02-19 Unknown nullFlavo Comprehensi cb28 c545-2 Memoria 20:00:00 20:00:00 r ve Heart w1i-8z41-7 l Care PA 552-04b1fa Haylee nn 98811s 2016-02-19 2016-02-19 Unknown nullFlavo Comprehensi 14b0 72fb-f Memoria 20:00:00 20:00:00 r ve Heart bcd-47e0-a l Care PA z5h-w07b3b Haylee nn 857ec2 2016-02-19 2016-02-19 Unknown nullFlavo Comprehensi 61af f3db-d Memoria 20:00:00 20:00:00 r ve Heart l77-13ek-5 l Care PA 79e-9fab5c Haylee nn 6b8d3b 2016-02-19 2016-02-19 Unknown nullFlavo Comprehensi 6625 7a89-d Memoria 20:00:00 20:00:00 r ve Heart p8p-7m10-2 l Care PA 29b-e1c53b Haylee nn 81da30 2016-02-19 2016-02-19 Unknown nullFlavo Comprehensi 0c4a f12d-a Memoria 20:00:00 20:00:00 r ve Heart 246-4eb9-a l Care PA o30-1f5882 Haylee nn f3bb62 2016-02-19 2016-02-19 Unknown nullFlavo Comprehensi 2a79 90fd-3 Memoria 20:00:00 20:00:00 r ve Heart 74a-4810-b l Care PA q17-607h70 Haylee nn 4da1e1 2016-02-19 2016-02-19 Unknown nullFlavo Comprehensi 6ea2 5a2c-a Memoria 20:00:00 20:00:00 r ve Heart 7be-4e2d-8 l Care PA 250-088a26 Haylee nn 3eb9c9 2016-02-19 2016-02-19 Unknown nullFlavo Comprehensi 9343 f733-4 Memoria 20:00:00 20:00:00 r ve Heart r05-6774-u l Care PA u7s-j191sp Haylee nn 436803 0698-06-08 2016-02-19 Unknown nullFlavo Comprehensi cb28 c545-2 Memoria 20:00:00 20:00:00 r ve Heart m9i-1v98-0 l Care PA 552-04b1fa Haylee nn 50873w 2016-02-19 2016-02-19 Outpatient Comprehen Comprehensi 4 78508 eClinic 15:00:00 15:00:[facility] 2016-02-19 2016-02-19 Outpatient Comprehen Comprehensi 4 45467 eClinic 15:00:00 15:00:00 sive ve Heart alWor nd Heart Care PA Care PA 2016-02-14 2016-02-14 Unknown nullFlavo Comprehensi 9df4 636d-1 Memoria 19:53:00 19:53:00 r ve Heart 3v7-9afe-9 l Care PA 9g2-2s2h38 Haylee nn p82432 2016-02-14 2016-02-14 Unknown nullFlavo Comprehensi b391 bd6c-7 Memoria 19:53:00 19:53:00 r ve Heart m38-8714-8 l Care PA 902-7a6f4c Haylee nn 540d3b 2016-02-14 2016-02-14 Unknown nullFlavo Comprehensi f271 722d-5 Memoria 19:53:00 19:53:00 r ve Heart t82-6u72-7 l Care PA 6t6-03m59c Haylee nn 441e89 2016-02-14 2016-02-14 Unknown nullFlavo Comprehensi fd1c 1b19-c Memoria 19:53:00 19:53:00 r ve Heart t81-2405-9 l Care PA 69a-41990j Haylee nn 5x720z 2016-02-14 2016-02-14 Unknown nullFlavo Comprehensi 24d8 e2fa-1 Memoria 19:53:00 19:53:00 r ve Heart 6bd-49be-a l Care PA 5i2-8jn39v [facility] c9c603 2016-02-14 2016-02-14 Unknown nullFlavo Comprehensi c5fa d8da-0 Memoria 19:53:00 19:53:00 r ve Heart 081-4a83-8 l Care PA a5y-s4e95w [facility] e62e34 2016-02-14 2016-02-14 Unknown nullFlavo Comprehensi 6619 1fb4-d Memoria 19:53:00 19:53:00 r ve Heart 9af-4b8c-b l Care PA 165-015592 [facility] 2e3a22 2016-02-14 2016-02-14 Unknown nullFlavo Comprehensi 24d8 e2fa-1 Memoria 19:53:00 19:53:00 r ve Heart 6bd-49be-a l Care PA 9m0-1tu98k [facility] v0v861 2016-02-14 2016-02-14 Unknown nullFlavo Comprehensi 9df4 636d-1 Memoria 19:53:00 19:53:00 r ve Heart 6d2-9bvx-1 l Care PA 6u4-8c7e08 [facility] p62426 2016-02-14 2016-02-14 Unknown nullFlavo Comprehensi b391 bd6c-7 Memoria 19:53:00 19:53:00 r ve Heart b92-0901-5 l Care PA 902-7a6f4c [facility] nn 540d3b 2016-02-14 2016-02-14 Unknown nullFlavo Comprehensi 6619 1fb4-d Memoria 19:53:00 19:53:00 r ve Heart 9af-4b8c-b l Care PA 165-976218 [facility] 2e3a22 2016-02-14 2016-02-14 Unknown nullFlavo Comprehensi c5fa d8da-0 Memoria 19:53:00 19:53:00 r ve Heart 081-4a83-8 l Care PA q8i-q3n08i [facility] e62e34 2016-02-14 2016-02-14 Unknown nullFlavo Comprehensi f271 722d-5 Memoria 19:53:00 19:53:00 r ve Heart f73-0c61-6 l Care PA 8i7-09k87p Haylee nn 441e89 2016-02-14 2016-02-14 Unknown nullFlavo Comprehensi fd1c 1b19-c Memoria 19:53:00 19:53:00 r ve Heart j39-1716-2 l Care PA 69a-45457y Haylee nn 2k510z 2016-02-14 2016-02-14 Unknown nullFlavo Comprehensi 24d8 e2fa-1 Memoria 19:53:00 19:53:00 r ve Heart 6bd-49be-a l Care PA 0u8-0nf27b [facility] nn u3k213 2016-02-14 2016-02-14 Unknown nullFlavo Comprehensi 9df4 636d-1 Memoria 19:53:00 19:53:00 r ve Heart 5d8-3oip-9 l Care PA 9q8-2s4a24 [facility] nn r53538 2016-02-14 2016-02-14 Unknown nullFlavo Comprehensi b391 bd6c-7 Memoria 19:53:00 19:53:00 r ve Heart a47-6397-8 l Care PA 902-7a6f4c Haylee nn 540d3b 2016-02-14 2016-02-14 Unknown nullFlavo Comprehensi 6619 1fb4-d Memoria 19:53:00 19:53:00 r ve Heart 9af-4b8c-b l Care PA 165-608916 [facility] nn 2e3a22 2016-02-14 2016-02-14 Unknown nullFlavo Comprehensi c5fa d8da-0 Memoria 19:53:00 19:53:00 r ve Heart 081-4a83-8 l Care PA i6j-x0x03x [facility] nn e62e34 2016-02-14 2016-02-14 Unknown nullFlavo Comprehensi f271 722d-5 Memoria 19:53:00 19:53:00 r ve Heart p26-0u19-8 l Care PA 8c6-95d61y [facility] nn 441e89 2016-02-14 2016-02-14 Unknown nullFlavo Comprehensi fd1c 1b19-c Memoria 19:53:00 19:53:00 r ve Heart h31-7962-4 l Care PA 69a-96415b Haylee nn 7g381w 2016-02-14 2016-02-14 Unknown nullFlavo Comprehensi 58b1 7d4d-5 Memoria 18:53:00 18:53:00 r ve Heart 299-46a9-8 l Care PA 9ce-b287f8 Haylee nn 3b4a10 2016-02-14 2016-02-14 Unknown nullFlavo Comprehensi eb16 7c51-4 Memoria 18:53:00 18:53:00 r ve Heart 3g2-2eq4-9 l Care PA 6ac-51fdb3 Haylee nn w04803 2016-02-14 2016-02-14 Unknown nullFlavo Comprehensi b412 52e9-5 Memoria 18:53:00 18:53:00 r ve Heart 042-405f-b l Care PA 8x5-53y951 Haylee nn 1ww226 2016-02-14 2016-02-14 Unknown nullFlavo Comprehensi 1c8b f15c-2 Memoria 18:53:00 18:53:00 r ve Heart 452-47f5-b l Care PA ed3-f76ce0 Haylee nn aeabb8 2016-02-14 2016-02-14 Unknown nullFlavo Comprehensi cc99 fc65-1 Memoria 18:53:00 18:53:00 r ve Heart e0t-8426-7 l Care PA 830-310228 Haylee nn 6398e4 2016-02-14 2016-02-14 Unknown nullFlavo Comprehensi 002d 3aec-b Memoria 18:53:00 18:53:00 r ve Heart ad1-49b0-b l Care PA 772-1y131x Haylee nn dcaa2e 2016-02-14 2016-02-14 Unknown nullFlavo Comprehensi c435 7455-b Memoria 18:53:00 18:53:00 r ve Heart 8cb-4e3e-b l Care PA 392-9f04d4 Haylee nn m1i179 2016-02-14 2016-02-14 Unknown nullFlavo Comprehensi 852f 5a20-1 Memoria 18:53:00 18:53:00 r ve Heart 43e-4769-b l Care PA q3s-3i551j [facility] nn g4s403 2016-02-14 2016-02-14 Unknown nullFlavo Comprehensi 5244 6448-9 Memoria 18:53:00 18:53:00 r ve Heart 10a-410a-9 l Care PA 668-c9f02f [facility] nn e28cf2 2016-02-14 2016-02-14 Unknown nullFlavo Comprehensi 8e3e 6c31-1 Memoria 18:53:00 18:53:00 r ve Heart 787-4d26-b l Care PA 9fb-68cda9 [facility] nn 93b52d 2016-02-14 2016-02-14 Unknown nullFlavo Comprehensi 58b1 7d4d-5 Memoria 18:53:00 18:53:00 r ve Heart 299-46a9-8 l Care PA 9ce-b287f8 [facility] nn 3b4a10 2016-02-14 2016-02-14 Unknown nullFlavo Comprehensi cc99 fc65-1 Memoria 18:53:00 18:53:00 r ve Heart i6j-0793-4 l Care PA 830-893683 [facility] nn 6398e4 2016-02-14 2016-02-14 Unknown nullFlavo Comprehensi 002d 3aec-b Memoria 18:53:00 18:53:00 r ve Heart ad1-49b0-b l Care PA 772-2c101o [facility] nn dcaa2e 2016-02-14 2016-02-14 Unknown nullFlavo Comprehensi 1c8b f15c-2 Memoria 18:53:00 18:53:00 r ve Heart 452-47f5-b l Care PA ed3-f76ce0 [facility] nn aeabb8 2016-02-14 2016-02-14 Unknown nullFlavo Comprehensi b412 52e9-5 Memoria 18:53:00 18:53:00 r ve Heart 042-405f-b l Care PA 6a2-69x603 Haylee nn 7lv502 2016-02-14 2016-02-14 Unknown nullFlavo Comprehensi 852f 5a20-1 Memoria 18:53:00 18:53:00 r ve Heart 43e-4769-b l Care PA v7b-8x487x Haylee nn s9n394 2016-02-14 2016-02-14 Unknown nullFlavo Comprehensi eb16 7c51-4 Memoria 18:53:00 18:53:00 r ve Heart 4u5-2pu5-9 l Care PA 6ac-51fdb3 Haylee nn n01371 2016-02-14 2016-02-14 Unknown nullFlavo Comprehensi c435 7455-b Memoria 18:53:00 18:53:00 r ve Heart 8cb-4e3e-b l Care PA 392-9f04d4 Haylee nn g3w763 2016-02-14 2016-02-14 Unknown nullFlavo Comprehensi 5244 6448-9 Memoria 18:53:00 18:53:00 r ve Heart 10a-410a-9 l Care PA 668-c9f02f Haylee nn e28cf2 2016-02-14 2016-02-14 Unknown nullFlavo Comprehensi 8e3e 6c31-1 Memoria 18:53:00 18:53:00 r ve Heart 787-4d26-b l Care PA 9fb-68cda9 Haylee nn 93b52d 2016-02-14 2016-02-14 Unknown nullFlavo Comprehensi 58b1 7d4d-5 Memoria 18:53:00 18:53:00 r ve Heart 299-46a9-8 l Care PA 9ce-b287f8 [facility] nn 3b4a10 2016-02-14 2016-02-14 Unknown nullFlavo Comprehensi cc99 fc65-1 Memoria 18:53:00 18:53:00 r ve Heart v0c-8193-1 l Care PA 830-300238 [facility] nn 6398e4 2016-02-14 2016-02-14 Unknown nullFlavo Comprehensi 002d 3aec-b Memoria 18:53:00 18:53:00 r ve Heart ad1-49b0-b l Care PA 772-0q277h Haylee nn dcaa2e 2016-02-14 2016-02-14 Unknown nullFlavo Comprehensi 1c8b f15c-2 Memoria 18:53:00 18:53:00 r ve Heart 452-47f5-b l Care PA ed3-f76ce0 [facility] nn aeabb8 2016-02-14 2016-02-14 Unknown nullFlavo Comprehensi b412 52e9-5 Memoria 18:53:00 18:53:00 r ve Heart 042-405f-b l Care PA 9h4-77m080 [facility] nn 3ti118 2016-02-14 2016-02-14 Unknown nullFlavo Comprehensi 852f 5a20-1 Memoria 18:53:00 18:53:00 r ve Heart 43e-4769-b l Care PA s4o-2h075u [facility] nn q8j757 2016-02-14 2016-02-14 Unknown nullFlavo Comprehensi eb16 7c51-4 Memoria 18:53:00 18:53:00 r ve Heart 7r9-5of1-3 l Care PA 6ac-51fdb3 [facility] nn u17000 2016-02-14 2016-02-14 Unknown nullFlavo Comprehensi c435 7455-b Memoria 18:53:00 18:53:00 r ve Heart 8cb-4e3e-b l Care PA 392-9f04d4 [facility] nn x9j620 2016-02-14 2016-02-14 Unknown nullFlavo Comprehensi 5244 6448-9 Memoria 18:53:00 18:53:00 r ve Heart 10a-410a-9 l Care PA 668-c9f02f [facility] nn e28cf2 2016-02-14 2016-02-14 Unknown nullFlavo Comprehensi 8e3e 6c31-1 Memoria 18:53:00 18:53:00 r ve Heart 787-4d26-b l Care PA 9fb-68cda9 [facility] nn 93b52d 2016-02-14 2016-02-14 Outpatient Comprehen Comprehensi 4 38331 eClinic 13:53:00 13:53:00 sive ve Heart alWor nd Heart Care PA Care PA 2016-02-14 2016-02-14 Outpatient Comprehen Comprehensi 4 27999 eClinic 13:53:00 13:53:00 sive ve Heart alWor nd Heart Care PA Care PA 2016-02-12 2016-02-12 Unknown nullFlavo Comprehensi 551d 132f-9 Memoria 21:00:00 21:00:00 r ve Heart 2de-4ffa-8 l Care PA 3ce-19fa3e Haylee nn 3bfd44 2016-02-12 2016-02-12 Unknown nullFlavo Comprehensi 6dd7 7048-d Memoria 21:00:00 21:00:00 r ve Heart o6q-2m26-1 l Care PA y67-6085wb Haylee nn 7863f4 2016-02-12 2016-02-12 Unknown nullFlavo Comprehensi 5a80 c6ff-8 Memoria 21:00:00 21:00:00 r ve Heart j39-6vi4-r l Care PA 993-r6294c Haylee nn ecbdbb 2016-02-12 2016-02-12 Unknown nullFlavo Comprehensi f9e6 b708-a Memoria 21:00:00 21:00:00 r ve Heart 977-43e3-8 l Care PA 5q7-gwp736 Haylee nn c7e249 2016-02-12 2016-02-12 Unknown nullFlavo Comprehensi 258e 82f7-d Memoria 21:00:00 21:00:00 r ve Heart 5u2-0l94-5 l Care PA 375-cc9ad5 Haylee nn dee93a 2016-02-12 2016-02-12 Unknown nullFlavo Comprehensi 26c7 bb2b-5 Memoria 21:00:00 21:00:00 r ve Heart fa3-45cf-b l Care PA 030-f579b4 Haylee nn c9a9be 2016-02-12 2016-02-12 Unknown nullFlavo Comprehensi 7d36 7cfb-a [facility] 21:00:00 21:00:00 r ve Heart 04a-4155-a l Care PA 84d-rbq937 Haylee nn 5af1df 2016-02-12 2016-02-12 Unknown nullFlavo Comprehensi 258e 82f7-d [facility] 21:00:00 21:00:00 r ve Heart 6b3-9n31-8 l Care PA 375-cc9ad5 Haylee nn dee93a 2016-02-12 2016-02-12 Unknown nullFlavo Comprehensi 551d 132f-9 [facility] 21:00:00 21:00:00 r ve Heart 2de-4ffa-8 l Care PA 3ce-19fa3e Haylee nn 3bfd44 2016-02-12 2016-02-12 Unknown nullFlavo Comprehensi 6dd7 7048-d [facility] 21:00:00 21:00:00 r ve Heart f2c-2s22-5 l Care PA s05-2076jf Haylee nn 7863f4 2016-02-12 2016-02-12 Unknown nullFlavo Comprehensi 7d36 7cfb-a [facility] 21:00:00 21:00:00 r ve Heart 04a-4155-a l Care PA 84d-anr538 Haylee nn 5af1df 2016-02-12 2016-02-12 Unknown nullFlavo Comprehensi 26c7 bb2b-5 [facility] 21:00:00 21:00:00 r ve Heart fa3-45cf-b l Care PA 030-f579b4 Haylee nn c9a9be 2016-02-12 2016-02-12 Unknown nullFlavo Comprehensi 5a80 c6ff-8 [facility] 21:00:00 21:00:00 r ve Heart l03-9ti3-h l Care PA 993-w0528e Haylee nn ecbdbb 2016-02-12 2016-02-12 Unknown nullFlavo Comprehensi f9e6 b708-a [facility] 21:00:00 21:00:00 r ve Heart 977-43e3-8 l Care PA 6p7-xdt124 Haylee nn [id number] 2016-02-12 2016-02-12 Unknown nullFlavo Comprehensi 258e 82f7-d [facility] 21:00:00 21:00:00 r ve Heart 5d5-6h89-4 l Care PA 375-cc9ad5 Haylee nn dee93a 2016-02-12 2016-02-12 Unknown nullFlavo Comprehensi 551d 132f-9 [facility] 21:00:00 21:00:00 r ve Heart 2de-4ffa-8 l Care PA 3ce-19fa3e Haylee nn 3bfd44 2016-02-12 2016-02-12 Unknown nullFlavo Comprehensi 6dd7 7048-d [facility] 21:00:00 21:00:00 r ve Heart v6r-9f21-8 l Care PA t81-4041qn [facility] 7863f4 2016-02-12 2016-02-12 Unknown nullFlavo Comprehensi 7d36 7cfb-a [facility] 21:00:00 21:00:00 r ve Heart 04a-4155-a l Care PA 84d-smx238 [facility] 5af1df 2016-02-12 2016-02-12 Unknown nullFlavo Comprehensi 26c7 bb2b-5 [facility] 21:00:00 21:00:00 r ve Heart fa3-45cf-b l Care PA 030-f579b4 [facility] c9a9be 2016-02-12 2016-02-12 Unknown nullFlavo Comprehensi 5a80 c6ff-8 [facility] 21:00:00 21:00:00 r ve Heart g56-8da4-u l Care PA 993-o4666o [facility] ecbdbb 2016-02-12 2016-02-12 Unknown nullFlavo Comprehensi f9e6 b708-a [facility] 21:00:00 21:00:00 r ve Heart 977-43e3-8 l Care PA 9a6-usf495 [facility] [id number] 2016-02-12 2016-02-12 Unknown nullFlavo Comprehensi 8441 0226-e [facility] 20:00:00 20:00:00 r ve Heart u23-52v1-x l Care PA 85c-41dbf0 [facility] e44b76 2016-02-12 2016-02-12 Unknown nullFlavo Comprehensi 5471 b5ca-4 [facility] 20:00:00 20:00:00 r ve Heart q45-2734-1 l Care PA m11-r2x42t [facility] 87c82c 2016-02-12 2016-02-12 Unknown nullFlavo Comprehensi 41cf f76c-3 [facility] 20:00:00 20:00:00 r ve Heart dd7-4fe9-8 l Care PA 1e4-6djzw3 [facility] yua752 2016-02-12 2016-02-12 Unknown nullFlavo Comprehensi 7047 bea5-6 [facility] 20:00:00 20:00:00 r ve Heart eab-4daf-8 l Care PA 17f-84bc38 [facility] eaf09a 2016-02-12 2016-02-12 Unknown nullFlavo Comprehensi 9a7b cfcd-5 [facility] 20:00:00 20:00:00 r ve Heart x21-3y68-w l Care PA [id number] Haylee nn [id number] 2016-02-12 2016-02-12 Unknown nullFlavo Comprehensi d7ce 15ca-8 [facility] 20:00:00 20:00:00 r ve Heart 3ca-489c-8 l Care PA 2a0-l3632a Haylee nn 09cbb5 2016-02-12 2016-02-12 Unknown nullFlavo Comprehensi 6ff9 1970-c [facility] 20:00:00 20:00:00 r ve Heart fed-4725-b l Care PA 577-0xg549 [facility] nn [id number] 2016-02-12 2016-02-12 Unknown nullFlavo Comprehensi d43a 856b-d [facility] 20:00:00 20:00:00 r ve Heart 7g5-77v5-u l Care PA 999-d0a59c [facility] nn ba09b5 2016-02-12 2016-02-12 Unknown nullFlavo Comprehensi eb0c 5984-e [facility] 20:00:00 20:00:00 r ve Heart t32-869d-0 l Care PA 5c8-p2820x [facility] nn 84425n 2016-02-12 2016-02-12 Unknown nullFlavo Comprehensi 7047 bea5-6 [facility] 20:00:00 20:00:00 r ve Heart eab-4daf-8 l Care PA 17f-84bc38 [facility] nn eaf09a 2016-02-12 2016-02-12 Unknown nullFlavo Comprehensi 9a7b cfcd-5 [facility] 20:00:00 20:00:00 r ve Heart i35-7k15-q l Care PA [id number] [facility] nn [id number] 2016-02-12 2016-02-12 Unknown nullFlavo Comprehensi 41cf f76c-3 [facility] 20:00:00 20:00:00 r ve Heart dd7-4fe9-8 l Care PA 4f1-7okpl3 [facility] nn gzg460 2016-02-12 2016-02-12 Unknown nullFlavo Comprehensi 5471 b5ca-4 [facility] 20:00:00 20:00:00 r ve Heart r79-2385-8 l Care PA a48-t0i91e Haylee nn 87c82c 2016-02-12 2016-02-12 Unknown nullFlavo Comprehensi 6ff9 1970-c [facility] 20:00:00 20:00:00 r ve Heart fed-4725-b l Care PA 577-8eo411 Haylee nn [id number] 2016-02-12 2016-02-12 Unknown nullFlavo Comprehensi 8441 0226-e [facility] 20:00:00 20:00:00 r ve Heart m72-69d5-u l Care PA 85c-41dbf0 [facility]lee nn e44b76 2016-02-12 2016-02-12 Unknown nullFlavo Comprehensi d7ce 15ca-8 Memoria 20:00:00 20:00:00 r ve Heart 3ca-489c-8 l Care PA 7e6-q7629t Haylee nn 09cbb5 2016-02-12 2016-02-12 Unknown nullFlavo Comprehensi d43a 856b-d Memoria 20:00:00 20:00:00 r ve Heart 6t7-86j8-m l Care PA 999-d0a59c [facility] nn ba09b5 2016-02-12 2016-02-12 Unknown nullFlavo Comprehensi eb0c 5984-e Memoria 20:00:00 20:00:00 r ve Heart v34-879a-6 l Care PA 0o7-b6576g [facility] nn 44019u 2016-02-12 2016-02-12 Unknown nullFlavo Comprehensi 7047 bea5-6 Memoria 20:00:00 20:00:00 r ve Heart eab-4daf-8 l Care PA 17f-84bc38 [facility] nn eaf09a 2016-02-12 2016-02-12 Unknown nullFlavo Comprehensi 9a7b cfcd-5 Memoria 20:00:00 20:00:00 r ve Heart c30-2s43-r l Care PA x59-177608 [facility] nn v51859 2016-02-12 2016-02-12 Unknown nullFlavo Comprehensi 41cf f76c-3 Memoria 20:00:00 20:00:00 r ve Heart dd7-4fe9-8 l Care PA 7f9-8vpio0 [facility]lee nn yze810 2016-02-12 2016-02-12 Unknown nullFlavo Comprehensi 5471 b5ca-4 Memoria 20:00:00 20:00:00 r ve Heart m79-3161-1 l Care PA u24-c8e31t [facility]lee nn 87c82c 2016-02-12 2016-02-12 Unknown nullFlavo Comprehensi 6ff9 1970-c Memoria 20:00:00 20:00:00 r ve Heart fed-4725-b l Care PA 577-9sa422 [facility] nn m29490 2016-02-12 2016-02-12 Unknown nullFlavo Comprehensi 8441 0226-e Memoria 20:00:00 20:00:00 r ve Heart m06-05x0-w l Care PA 85c-41dbf0 [facility] nn e44b76 2016-02-12 2016-02-12 Unknown nullFlavo Comprehensi d7ce 15ca-8 Memoria 20:00:00 20:00:00 r ve Heart 3ca-489c-8 l Care PA 8q8-o1401k Haylee nn 09cbb5 2016-02-12 2016-02-12 Unknown nullFlavo Comprehensi d43a 856b-d Memoria 20:00:00 20:00:00 r ve Heart 1c2-57q6-w l Care PA 999-d0a59c [facility] nn ba09b5 2016-02-12 2016-02-12 Unknown nullFlavo Comprehensi eb0c 5984-e Memoria 20:00:00 20:00:00 r ve Heart r25-336l-3 l Care PA 5z6-e7910k Haylee nn 35117s 2016-02-12 2016-02-12 Outpatient Comprehen Comprehensi [facility] 15:00:00 15:00:00 sive ve [facility] alWor nd Heart Care PA Care PA 2016-02-12 2016-02-12 Outpatient Comprehen Comprehensi 4 74369 eClinic 15:00:00 15:00:00 sive ve Heart alWor nd Heart Care PA Care PA 2016-02-12 2016-02-12 2016 nullFlavo Comprehensi b6cc 28f6-9 Memoria 14:36:00 14:36:00 MEDICARE r ve Heart 6n7-9v84-4 l Care PA bc5-79fb22 [facility]lee nn 8468d4 2016-02-12 2016-02-122015 nullFlavo Comprehensi 838c 753a-7 [facility]oria 14:36:00 14:36:00 MEDICARE r ve Heart m55-696d-x l Care PA cf0-07e73d [facility]lee nn jc927m 2016-02-12 2016-02-122015 nullFlavo Comprehensi 6ab1 69b6-e Memoria 14:36:00 14:36:00 MEDICARE r ve Heart df8-46ee-8 l Care PA 66b-7abb71 [facility]lee nn 288b2d 2016-02-12 2016-02-122015 nullFlavo Comprehensi b7c9 c4b2-a Memoria 14:36:00 14:36:00 MEDICARE r ve Heart 24c-4944-9 l Care PA 284-mo712j [facility]lee nn f9f8f9 2016-02-12 2016-02-122015 nullFlavo Comprehensi be8a bf16-e Memoria 14:36:00 14:36:00 MEDICARE r ve Heart s9e-4rx0-o l Care PA 194-4377a3 [facility]lee nn 8319a7 2016-02-12 2016-02-122015 nullFlavo Comprehensi f370 d54d-5 Memoria 14:36:00 14:36:00 MEDICARE r ve Heart 1bd-4cb3-a l Care PA bd6-8ffdbc [facility] nn fa8e12 2016-02-12 2016-02-122015 nullFlavo Comprehensi d455 dd6b-3 Memoria 14:36:00 14:36:00 MEDICARE r ve Heart 4y6-7c81-u l Care PA k0o-wj9fg4 [facility]lee nn fec52f 2016-02-12 2016-02-122015 nullFlavo Comprehensi be8a bf16-e Memoria 14:36:00 14:36:00 MEDICARE r ve Heart f0i-1sb4-s l Care PA 194-4377a3 [facility] nn 8319a7 2016-02-12 2016-02-122015 nullFlavo Comprehensi b6cc 28f6-9 Memoria 14:36:00 14:36:00 MEDICARE r ve Heart 1e5-7v41-2 l Care PA bc5-79fb22 [facility]lee nn 8468d4 2016-02-12 2016-02-12 2016 nullFlavo Comprehensi 838c 753a-7 Memoria 14:36:00 14:36:00 MEDICARE r ve Heart h96-635h-a l Care PA cf0-07e73d [facility] nn ay757b 2016-02-12 2016-02-12 2016 nullFlavo Comprehensi d455 dd6b-3 Memoria 14:36:00 14:36:00 MEDICARE r ve Heart 6d9-7a69-t l Care PA a0i-dj5vz1 [facility] nn fec52f 2016-02-12 2016-02-12 2016 nullFlavo Comprehensi f370 d54d-5 Memoria 14:36:00 14:36:00 MEDICARE r ve Heart 1bd-4cb3-a l Care PA bd6-8ffdbc [facility]lee nn fa8e12 2016-02-12 2016-02-122015 nullFlavo Comprehensi 6ab1 69b6-e Memoria 14:36:00 14:36:00 MEDICARE r ve Heart df8-46ee-8 l Care PA 66b-7abb71 [facility]lee nn 288b2d 2016-02-12 2016-02-12 2016 nullFlavo Comprehensi b7c9 c4b2-a Memoria 14:36:00 14:36:00 MEDICARE r ve Heart 24c-4944-9 l Care PA 284-wa537d [facility]lee nn f9f8f9 2016-02-12 2016-02-12 2016 nullFlavo Comprehensi be8a bf16-e Memoria 14:36:00 14:36:00 MEDICARE r ve Heart z0j-8ii1-u l Care PA 194-4377a3 [facility]lee nn 8319a7 2016-02-12 2016-02-122015 nullFlavo Comprehensi b6cc 28f6-9 Memoria 14:36:00 14:36:00 MEDICARE r ve Heart 5e1-3h56-8 l Care PA bc5-79fb22 [facility] nn 8468d4 2016-02-12 2016-02-12 2016 nullFlavo Comprehensi 838c 753a-7 Memoria 14:36:00 14:36:00 MEDICARE r ve Heart u09-965b-y l Care PA cf0-07e73d [facility] nn kh865u 2016-02-12 2016-02-12 2016 nullFlavo Comprehensi d455 dd6b-3 Memoria 14:36:00 14:36:00 MEDICARE r ve Heart 7x7-8l15-a l Care PA r5x-za0vm2 [facility] nn fec52f 2016-02-12 2016-02-12 2016 nullFlavo Comprehensi f370 d54d-5 Memoria 14:36:00 14:36:00 MEDICARE r ve Heart 1bd-4cb3-a l Care PA bd6-8ffdbc [facility] nn fa8e12 2016-02-12 2016-02-12 2016 nullFlavo Comprehensi 6ab1 69b6-e Memoria 14:36:00 14:36:00 MEDICARE r ve Heart df8-46ee-8 l Care PA 66b-7abb71 [facility] nn 288b2d 2016-02-12 2016-02-12 2016 nullFlavo Comprehensi b7c9 c4b2-a Memoria 14:36:00 14:36:00 MEDICARE r ve Heart 24c-4944-9 l Care PA 284-pp179i [facility]lee nn f9f8f9 2016-02-12 2016-02-12 2016 nullFlavo Comprehensi 97eb 22c0-9 Memoria 13:36:00 13:36:00 MEDICARE r ve Heart 37f-494f-a l Care PA q85-7w6wms [facility] nn 19786m 2016-02-12 2016-02-12 2016 nullFlavo Comprehensi 1842 2845-e Memoria 13:36:00 13:36:00 MEDICARE r ve Heart 215-407b-8 l Care PA w13-088sw4 [facility] nn 789975 7476-06-01 2016-02-12 2016 nullFlavo Comprehensi ed71 6ff2-b Memoria 13:36:00 13:36:00 MEDICARE r ve Heart 423-4d69-b l Care PA 80b-dc23c5 [facility]lee nn 86a65b 2016-02-12 2016-02-12 2016 nullFlavo Comprehensi f1aa 4bb3-a Memoria 13:36:00 13:36:00 MEDICARE r ve Heart 84e-40b9-8 l Care PA 076-21b5a9 [facility]lee nn c384ec 2016-02-12 2016-02-122015 nullFlavo Comprehensi d33d 5f4e-b Memoria 13:36:00 13:36:00 MEDICARE r ve Heart 42e-4732-a l Care PA 1bd-5cbeb5 [facility] nn c391f1 2016-02-12 2016-02-122015 nullFlavo Comprehensi 1511 9779-5 Memoria 13:36:00 13:36:00 MEDICARE r ve Heart l16-8371-g l Care PA 200-79bf5c [facility]lee nn 7vx390 2016-02-12 2016-02-122015 nullFlavo Comprehensi e0a4 d372-f Memoria 13:36:00 13:36:00 MEDICARE r ve Heart eed-4133-9 l Care PA ed9-e3a5b0 [facility] nn cd69b3 2016-02-12 2016-02-122015 nullFlavo Comprehensi cb51 cfb9-e Memoria 13:36:00 13:36:00 MEDICARE r ve Heart fb4-4910-9 l Care PA 17f-3b19c9 [facility] nn ae4e46 2016-02-12 2016-02-122015 nullFlavo Comprehensi 4404 fa06-7 Memoria 13:36:00 13:36:00 MEDICARE r ve Heart 5b7-6514-1 l Care PA 35c-4mz865 [facility] nn ec5f41 2016-02-12 2016-02-122015 nullFlavo Comprehensi d97a 86bb-6 Memoria 13:36:00 13:36:00 MEDICARE r ve Heart 2v9-9209-4 l Care PA 322-e21ef6 [facility]lee nn 02b71f 2016-02-12 2016-02-122015 nullFlavo Comprehensi 04e5 b762-4 Memoria 13:36:00 13:36:00 MEDICARE r ve Heart 783-4e9c-8 l Care PA cde-57ddc8 [facility]lee nn q19881 2016-02-12 2016-02-122015 nullFlavo Comprehensi 1842 2845-e Memoria 13:36:00 13:36:00 MEDICARE r ve Heart 215-407b-8 l Care PA d57-089rm2 [facility] nn 912613 4301-06-01 2016-02-122015 nullFlavo Comprehensi 97eb 22c0-9 Memoria 13:36:00 13:36:00 MEDICARE r ve Heart 37f-494f-a l Care PA r33-7z7zxs Haylee nn 72382w 2016-02-12 2016-02-122015 nullFlavo Comprehensi 1511 9779-5 Memoria 13:36:00 13:36:00 MEDICARE r ve Heart u72-6932-d l Care PA 200-79bf5c [facility]lee nn 0ov986 2016-02-12 2016-02-122015 nullFlavo Comprehensi e0a4 d372-f Memoria 13:36:00 13:36:00 MEDICARE r ve Heart eed-4133-9 l Care PA ed9-e3a5b0 [facility] nn cd69b3 2016-02-12 2016-02-122015 nullFlavo Comprehensi d33d 5f4e-b Memoria 13:36:00 13:36:00 MEDICARE r ve Heart 42e-4732-a l Care PA 1bd-5cbeb5 [facility] nn c391f1 2016-02-12 2016-02-122015 nullFlavo Comprehensi f1aa 4bb3-a Memoria 13:36:00 13:36:00 MEDICARE r ve Heart 84e-40b9-8 l Care PA 076-21b5a9 [facility] nn c384ec 2016-02-12 2016-02-122015 nullFlavo Comprehensi 4404 fa06-7 Memoria 13:36:00 13:36:00 MEDICARE r ve Heart 5u9-2758-4 l Care PA 35c-6es575 [facility] nn ec5f41 2016-02-12 2016-02-122015 nullFlavo Comprehensi ed71 6ff2-b Memoria 13:36:00 13:36:00 MEDICARE r ve Heart 423-4d69-b l Care PA 80b-dc23c5 [facility]lee nn 86a65b 2016-02-12 2016-02-122015 nullFlavo Comprehensi cb51 cfb9-e Memoria 13:36:00 13:36:00 MEDICARE r ve Heart fb4-4910-9 l Care PA 17f-3b19c9 [facility]lee nn ae4e46 2016-02-12 2016-02-122015 nullFlavo Comprehensi d97a 86bb-6 Memoria 13:36:00 13:36:00 MEDICARE r ve Heart 5a4-2862-7 l Care PA 322-e21ef6 Haylee nn 02b71f 2016-02-12 2016-02-122015 nullFlavo Comprehensi 04e5 b762-4 Memoria 13:36:00 13:36:00 MEDICARE r ve Heart 783-4e9c-8 l Care PA cde-57ddc8 Haylee nn r94845 2016-02-12 2016-02-122015 nullFlavo Comprehensi 1842 2845-e Memoria 13:36:00 13:36:00 MEDICARE r ve Heart 215-407b-8 l Care PA u42-192kv8 [facility] nn 797257 8314-06-01 2016-02-122015 nullFlavo Comprehensi 97eb 22c0-9 Memoria 13:36:00 13:36:00 MEDICARE r ve Heart 37f-494f-a l Care PA r63-1i1whw Haylee nn 84921z 2016-02-12 2016-02-122015 nullFlavo Comprehensi 1511 9779-5 Memoria 13:36:00 13:36:00 MEDICARE r ve Heart e88-1835-f l Care PA 200-79bf5c Haylee nn 9bd902 2016-02-12 2016-02-122015 nullFlavo Comprehensi e0a4 d372-f Memoria [...] Memoria 13:36:00 13:36:00 MEDICARE r ve Heart 0b1-3557-5 l Care PA 35c-8kt460 [facility]lee nn ec5f41 2016-02-12 2016-02-122015 nullFlavo Comprehensi ed71 6ff2-b Memoria 13:36:00 13:36:00 MEDICARE r ve Heart 423-4d69-b l Care PA 80b-dc23c5 [facility]lee nn 86a65b 2016-02-12 2016-02-122015 nullFlavo Comprehensi cb51 cfb9-e Memoria 13:36:00 13:36:00 MEDICARE r ve Heart fb4-4910-9 l Care PA 17f-3b19c9 [facility]lee nn ae4e46 2016-02-12 2016-02-122015 nullFlavo Comprehensi d97a 86bb-6 Memoria 13:36:00 13:36:00 MEDICARE r ve Heart 3l9-0289-3 l Care PA 322-e21ef6 [facility]lee nn 02b71f 2016-02-12 2016-02-122015 nullFlavo Comprehensi 04e5 b762-4 Memoria 13:36:00 13:36:00 MEDICARE r ve Heart 783-4e9c-8 l Care PA cde-57ddc8 [facility]lee nn j88685 2016-02-12 2016-02-12 Outpatient Comprehen Comprehensi 4 06883 eClinic 08:36:00 08:36:00 sive ve Heart alWor nd Heart Care PA Care PA 2016-02-12 2016-02-12 Outpatient Comprehen Comprehensi 4 54070 eClinic 08:36:00 08:36:00 sive ve Heart alWor nd Heart Care PA Care PA 2016-01-01 2016-01-012015 nullFlavo Comprehensi 156c ebb7-8 Memoria 05:20:00 05:20:00 MEDICARE r ve Heart u60-0j3s-w l Care PA 7c1-5k738j [facility]lee nn e5e3f0 2016-01-01 2016-01-012015 nullFlavo Comprehensi 28e1 2c2d-b Memoria 05:20:00 05:20:00 MEDICARE r ve Heart 8ff-4952-a l Care PA f8z-1rv95f Haylee nn 3ddc5e 2016-01-01 2016-01-012015 nullFlavo Comprehensi afb1 892c-d Memoria 05:20:00 05:20:00 MEDICARE r ve Heart 182-4288-8 l Care PA 8n6-mobl46 [facility]lee nn c173d6 2016-01-01 2016-01-012015 nullFlavo Comprehensi 7b9a 6cc1-b Memoria 05:20:00 05:20:00 MEDICARE r ve Heart 72c-4b4a-9 l Care PA 498-64r477 [facility]lee nn 301a48 2016-01-01 2016-01-012015 nullFlavo Comprehensi 50e1 ff5a-b Memoria 05:20:00 05:20:00 MEDICARE r ve Heart z09-2799-x l Care PA 0j9-997bgy Haylee nn 805d5c 2016-01-01 2016-01-012015 nullFlavo Comprehensi 526e 106b-b Memoria 05:20:00 05:20:00 MEDICARE r ve Heart dcd-4fc9-9 l Care PA 323-54ddb4 [facility]lee nn 8bfef6 2016-01-01 2016-01-012015 nullFlavo Comprehensi 370f 3e03-a Memoria 05:20:00 05:20:00 MEDICARE r ve Heart 0o8-7sg2-4 l Care PA l73-tz28t3 [facility]lee nn 7eefb0 2016-01-01 2016-01-012015 nullFlavo Comprehensi 50e1 ff5a-b Memoria 05:20:00 05:20:00 MEDICARE r ve Heart t91-9040-x l Care PA 7f3-775ivr Haylee nn 805d5c 2016-01-01 2016-01-012015 nullFlavo Comprehensi 156c ebb7-8 Memoria 05:20:00 05:20:00 MEDICARE r ve Heart o88-2z8e-f l Care PA 3e9-4q925u [facility]lee nn e5e3f0 2016-01-01 2016-01-012015 nullFlavo Comprehensi 28e1 2c2d-b Memoria 05:20:00 05:20:00 MEDICARE r ve Heart 8ff-4952-a l Care PA j3k-5oi24o [facility]lee nn 3ddc5e 2016-01-01 2016-01-012015 nullFlavo Comprehensi 370f 3e03-a Memoria 05:20:00 05:20:00 MEDICARE r ve Heart 3y5-2qu5-4 l Care PA o67-zi16j6 [facility]lee nn 7eefb0 2016-01-01 2016-01-012015 nullFlavo Comprehensi 526e 106b-b Memoria 05:20:00 05:20:00 MEDICARE r ve Heart dcd-4fc9-9 l Care PA 323-54ddb4 [facility]lee nn 8bfef6 2016-01-01 2016-01-012015 nullFlavo Comprehensi afb1 892c-d Memoria 05:20:00 05:20:00 MEDICARE r ve Heart 182-4288-8 l Care PA 7b6-xicq82 [facility]lee nn c173d6 2016-01-01 2016-01-012015 nullFlavo Comprehensi 7b9a 6cc1-b Memoria 05:20:00 05:20:00 MEDICARE r ve Heart 72c-4b4a-9 l Care PA 498-03y945 [facility]lee nn 301a48 2016-01-01 2016-01-012015 nullFlavo Comprehensi 50e1 ff5a-b Memoria 05:20:00 05:20:00 MEDICARE r ve Heart w44-3345-c l Care PA 1v0-389hvd Haylee nn 805d5c 2016-01-01 2016-01-012015 nullFlavo Comprehensi 156c ebb7-8 Memoria 05:20:00 05:20:00 MEDICARE r ve Heart b48-8p3r-b l Care PA 3p8-3c509n [facility]lee nn e5e3f0 2016-01-01 2016-01-012015 nullFlavo Comprehensi 28e1 2c2d-b Memoria 05:20:00 05:20:00 MEDICARE r ve Heart 8ff-4952-a l Care PA q5t-3gs26h [facility]lee nn 3ddc5e 2016-01-01 2016-01-012015 nullFlavo Comprehensi 370f 3e03-a Memoria 05:20:00 05:20:00 MEDICARE r ve Heart 8w0-9iz5-7 l Care PA x29-ao53p8 [facility]lee nn 7eefb0 2016-01-01 2016-01-012015 nullFlavo Comprehensi 526e 106b-b Memoria 05:20:00 05:20:00 MEDICARE r ve Heart dcd-4fc9-9 l Care PA 323-54ddb4 [facility]lee nn 8bfef6 2016-01-01 2016-01-012015 nullFlavo Comprehensi afb1 892c-d Memoria 05:20:00 05:20:00 MEDICARE r ve Heart 182-4288-8 l Care PA 0s5-alke93 [facility]lee nn c173d6 2016-01-01 2016-01-012015 nullFlavo Comprehensi 7b9a 6cc1-b Memoria 05:20:00 05:20:00 MEDICARE r ve Heart 72c-4b4a-9 l Care PA 498-15y854 [facility]lee nn 301a48 2016-01-01 2016-01-012015 nullFlavo Comprehensi 0da3 e79e-0 Memoria 04:20:00 04:20:00 MEDICARE r ve Heart m22-63l5-d l Care PA 632-83ca45 [facility]lee nn 42a61b 2016-01-01 2016-01-012015 nullFlavo Comprehensi 83f0 2f25-d Memoria 04:20:00 04:20:00 MEDICARE r ve Heart ca8-4505-b l Care PA 0be-273216 [facility] nn bd9b91 2016-01-01 2016-01-012015 nullFlavo Comprehensi 95eb d82d-3 Memoria 04:20:00 04:20:00 MEDICARE r ve Heart 41b-4b34-a l Care PA 492-a9d7eb [facility] nn fe2c92 2016-01-01 2016-01-012015 nullFlavo Comprehensi c8c6 1fb6-d Memoria 04:20:00 04:20:00 MEDICARE r ve Heart v05-7r12-1 l Care PA 4n4-18677b [facility]lee nn ccd6c6 2016-01-01 2016-01-012015 nullFlavo Comprehensi 6b5b 6c2d-5 Memoria 04:20:00 04:20:00 MEDICARE r ve Heart fde-469f-9 l Care PA 3bd-00f7b5 [facility]lee nn 1053f0 2016-01-01 2016-01-012015 nullFlavo Comprehensi 159e 21f5-8 Memoria 04:20:00 04:20:00 MEDICARE r ve Heart 954-4a61-b l Care PA 389-603700 [facility]lee nn et9441 2016-01-01 2016-01-012015 nullFlavo Comprehensi 14ab 6001-2 Memoria 04:20:00 04:20:00 MEDICARE r ve Heart 6ad-4cd0-b l Care PA 376-62a13e [facility]lee nn c5a6a4 2016-01-01 2016-01-012015 nullFlavo Comprehensi 92ec 5c33-9 Memoria 04:20:00 04:20:00 MEDICARE r ve Heart x53-523i-0 l Care PA [id number] [facility] nn 434a17 2016-01-01 2016-01-012015 nullFlavo Comprehensi 1458 bfb2-6 Memoria 04:20:00 04:20:00 MEDICARE r ve Heart g07-5nw9-b l Care PA 68f-7362bc [facility] nn e13dd7 2016-01-01 2016-01-012015 nullFlavo Comprehensi 999a 1a40-3 Memoria 04:20:00 04:20:00 MEDICARE r ve Heart o9c-802n-6 l Care PA j72-g0b9ma [facility]lee nn 0dx066 2016-01-01 2016-01-012015 nullFlavo Comprehensi ade6 afb3-c Memoria 04:20:00 04:20:00 MEDICARE r ve Heart s6t-0o2s-9 l Care PA 115-174017 [facility] nn 01e2c7 2016-01-01 2016-01-012015 nullFlavo Comprehensi ac9a 8be4-5 Memoria 04:20:00 04:20:00 MEDICARE r ve Heart x6s-9009-3 l Care PA baf-257c3d [facility]lee nn 87e4e5 2016-01-01 2016-01-012015 nullFlavo Comprehensi 95eb d82d-3 Memoria 04:20:00 04:20:00 MEDICARE r ve Heart 41b-4b34-a l Care PA 492-a9d7eb [facility]lee nn fe2c92 2016-01-01 2016-01-012015 nullFlavo Comprehensi 83f0 2f25-d Memoria 04:20:00 04:20:00 MEDICARE r ve Heart ca8-4505-b l Care PA 0be-499768 [facility] nn bd9b91 2016-01-01 2016-01-012015 nullFlavo Comprehensi 14ab 6001-2 Memoria 04:20:00 04:20:00 MEDICARE r ve Heart 6ad-4cd0-b l Care PA 376-62a13e [facility]lee nn c5a6a4 2016-01-01 2016-01-012015 nullFlavo Comprehensi 0da3 e79e-0 Memoria 04:20:00 04:20:00 MEDICARE r ve Heart z10-89m1-p l Care PA 632-83ca45 [facility]lee nn 42a61b 2016-01-01 2016-01-012015 nullFlavo Comprehensi 92ec 5c33-9 Memoria 04:20:00 04:20:00 MEDICARE r ve Heart y74-957r-2 l Care PA 894-624093 [facility] nn 434a17 2016-01-01 2016-01-012015 nullFlavo Comprehensi 159e 21f5-8 Memoria 04:20:00 04:20:00 MEDICARE r ve Heart 954-4a61-b l Care PA 389-083504 [facility] nn cd7241 2016-01-01 2016-01-012015 nullFlavo Comprehensi 6b5b 6c2d-5 Memoria 04:20:00 04:20:00 MEDICARE r ve Heart fde-469f-9 l Care PA 3bd-00f7b5 [facility]lee nn 1053f0 2016-01-01 2016-01-012015 nullFlavo Comprehensi 999a 1a40-3 Memoria 04:20:00 04:20:00 MEDICARE r ve Heart f1f-600x-6 l Care PA t28-w6k4jp [facility]lee nn 4aw020 2016-01-01 2016-01-012015 nullFlavo Comprehensi c8c6 1fb6-d Memoria 04:20:00 04:20:00 MEDICARE r ve Heart o69-3a62-2 l Care PA 9s4-39272r [facility]lee nn ccd6c6 2016-01-01 2016-01-012015 nullFlavo Comprehensi 1458 bfb2-6 Memoria 04:20:00 04:20:00 MEDICARE r ve Heart w12-3tl7-y l Care PA 68f-7362bc [facility]lee nn e13dd7 2016-01-01 2016-01-012015 nullFlavo Comprehensi ade6 afb3-c Memoria 04:20:00 04:20:00 MEDICARE r ve Heart a6d-1c6q-5 l Care PA 115-235841 [facility]lee nn 01e2c7 2016-01-01 2016-01-012015 nullFlavo Comprehensi ac9a 8be4-5 Memoria 04:20:00 04:20:00 MEDICARE r ve Heart l1r-3372-0 l Care PA baf-257c3d [facility]lee nn 87e4e5 2016-01-01 2016-01-012015 nullFlavo Comprehensi 95eb d82d-3 Memoria 04:20:00 04:20:00 MEDICARE r ve Heart 41b-4b34-a l Care PA 492-a9d7eb [facility]lee nn fe2c92 2016-01-01 2016-01-012015 nullFlavo Comprehensi 83f0 2f25-d Memoria 04:20:00 04:20:00 MEDICARE r ve Heart ca8-4505-b l Care PA 0be-465740 [facility] nn bd9b91 2016-01-01 2016-01-012015 nullFlavo Comprehensi 14ab 6001-2 Memoria 04:20:00 04:20:00 MEDICARE r ve Heart 6ad-4cd0-b l Care PA 376-62a13e [facility]lee nn c5a6a4 2016-01-01 2016-01-012015 nullFlavo Comprehensi 0da3 e79e-0 Memoria 04:20:00 04:20:00 MEDICARE r ve Heart g26-32t4-s l Care PA 632-83ca45 [facility] nn 42a61b 2016-01-01 2016-01-012015 nullFlavo Comprehensi 92ec 5c33-9 Memoria 04:20:00 04:20:00 MEDICARE r ve Heart m02-907r-0 l Care PA [id number] [facility]lee nn 434a17 2016-01-01 2016-01-012015 nullFlavo Comprehensi 159e 21f5-8 Memoria 04:20:00 04:20:00 MEDICARE r ve Heart 954-4a61-b l Care PA [id number] [facility]lee nn oi2553 2016-01-01 2016-01-012015 nullFlavo Comprehensi 6b5b 6c2d-5 Memoria 04:20:00 04:20:00 MEDICARE r ve Heart fde-469f-9 l Care PA [id number]-[id number] Haylee nn [id number] 2016-01-01 2016-01-012015 nullFlavo Comprehensi 999a 1a40-3 [facility] 04:20:00 04:20:00 MEDICARE r ve Heart g0y-049d-6 l Care PA [id number]-[id number] Haylee nn [id number] 2016-01-01 2016-01-012015 nullFlavo Comprehensi c8c6 1fb6-d [facility] 04:20:00 04:20:00 MEDICARE r ve Heart v22-7c41-2 l Care PA [id number] Haylee nn ccd6c6 2016-01-01 2016-01-012015 nullFlavo Comprehensi 1458 bfb2-6 [facility] 04:20:00 04:20:00 MEDICARE r ve Heart s81-1du3-w l Care PA [id number] Haylee nn [id number] 2016-01-01 2016-01-012015 nullFlavo Comprehensi ade6 afb3-c [facility] 04:20:00 04:20:00 MEDICARE r ve Heart d0s-4h6j-0 l Care PA [id number] Haylee nn 01e2c7 2016-01-01 2016-01-012015 nullFlavo Comprehensi ac9a 8be4-5 [facility] 04:20:00 04:20:00 MEDICARE r ve Heart d2x-1425-7 l Care PA [id number]-[id number] Haylee nn [id number] 2015-12-31 2015-12-31 Outpatient Comprehen Comprehensi 4 [id number] [facility] 23:20:00 23:20:00 sive ve [facility] PA Care PA 2015-12-31 2015-12-31 Outpatient Comprehen Comprehensi 4 [id number] [facility]inic 23:20:00 23:20:00 [facility] [place] Care PA 2015-05-27 2015-05-27 Rx nullFlavo Comprehensi 24e1 3e23-3 [facility] 22:58:00 22:58:00 r ve Heart w9d-7h04-5 l Care PA [id number] [facility] nn c99b48 2015-05-27 2015-05-27 Rx nullFlavo Comprehensi 4051 9acb-d Mem[facility] 22:58:00 22:58:00 r ve Heart 717-4bac-b l Care PA [id number] [facility] nn 4c85ce 2015-05-27 2015-05-27 Rx nullFlavo Comprehensi f761 a028-1 [facility]oria 22:58:00 22:58:00 r ve Heart l9h-5723-8 l Care PA [id number]-l01426 [facility] nn 21k662 2015-05-27 2015-05-27 Rx nullFlavo Comprehensi 4c4e 4275-1 [facility]oria 22:58:00 22:58:00 r ve Heart n15-3140-x l Care PA [id number]-ol639u [facility] nn 7c9b01 2015-05-27 2015-05-27 Rx nullFlavo Comprehensi 38ed 9910-7 [facility]oria 22:58:00 22:58:00 r ve Heart 312-4aa2-8 l Care PA z42-3psvow [facility] nn 728006 8543-09-14 2015-05-27 Rx nullFlavo Comprehensi aa33 8b73-c [facility] 22:58:00 22:58:00 r ve Heart 3bc-4feb-9 l Care PA 774-1af5ba [facility] nn 8fbde3 2015-05-27 2015-05-27 Rx nullFlavo Comprehensi b3ea d44a-e [facility] 22:58:00 22:58:00 r ve Heart u79-71a7-1 l Care PA [id number] [facility] nn 934bc8 2015-05-27 2015-05-27 Rx nullFlavo Comprehensi 38ed 9910-7 [facility] 22:58:00 22:58:00 r ve Heart 312-4aa2-8 l Care PA c87-4heemr Haylee nn 665500 2235-09-14 2015-05-27 Rx nullFlavo Comprehensi 24e1 3e23-3 [facility] 22:58:00 22:58:00 r ve Heart p0g-6m10-6 l Care PA [id number] Haylee nn c99b48 2015-05-27 2015-05-27 Rx nullFlavo Comprehensi 4051 9acb-d [facility] 22:58:00 22:58:00 r ve Heart 717-4bac-b l Care PA [id number] Haylee kinza 4c85ce 2015-05-27 2015-05-27 Rx nullFlavo Comprehensi b3ea d44a-e [facility] 22:58:00 22:58:00 r ve Heart y93-46f6-0 l Care PA [id number]-q46447 Haylee nn 934bc8 2015-05-27 2015-05-27 Rx nullFlavo Comprehensi aa33 8b73-c [facility] 22:58:00 22:58:00 r ve Heart 3bc-4feb-9 l Care PA 774-1af5ba Haylee nn 8fbde3 2015-05-27 2015-05-27 Rx nullFlavo Comprehensi f761 a028-1 [facility] 22:58:00 22:58:00 r ve Heart u5p-6669-2 l Care PA [id number]-j02659 Haylee nn 57l210 2015-05-27 2015-05-27 Rx nullFlavo Comprehensi 4c4e 4275-1 [facility] 22:58:00 22:58:00 r ve Heart t12-1724-c l Care PA t2j-my086t Haylee nn 7c9b01 2015-05-27 2015-05-27 Rx nullFlavo Comprehensi 38ed 9910-7 [facility] 22:58:00 22:58:00 r ve Heart 312-4aa2-8 l Care PA k84-1zmhef Haylee nn [id number] 5038-09-14 2015-05-27 Rx nullFlavo Comprehensi 24e1 3e23-3 [facility] 22:58:00 22:58:00 r ve Heart a8i-8h47-4 l Care PA [id number] Haylee nn c99b48 2015-05-27 2015-05-27 Rx nullFlavo Comprehensi 4051 9acb-d [facility] 22:58:00 22:58:00 r ve Heart 717-4bac-b l Care PA [id number] Haylee nn 4c85ce 2015-05-27 2015-05-27 Rx nullFlavo Comprehensi b3ea d44a-e [facility] 22:58:00 22:58:00 r ve Heart s47-54k7-4 l Care PA [id number]-k96588 Haylee nn 934bc8 2015-05-27 2015-05-27 Rx nullFlavo Comprehensi aa33 8b73-c [facility]oria 22:58:00 22:58:00 r ve Heart 3bc-4feb-9 l Care PA 774-1af5ba Haylee nn 8fbde3 2015-05-27 2015-05-27 Rx nullFlavo Comprehensi f761 a028-1 [facility] 22:58:00 22:58:00 r ve Heart w5t-3187-1 l Care PA [id number]-a67591 Haylee nn 05a223 2015-05-27 2015-05-27 Rx nullFlavo Comprehensi 4c4e 4275-1 [facility] 22:58:00 22:58:00 r ve Heart o06-9533-e l Care PA [id number]-jd997o Haylee nn 7c9b01 2015-05-27 2015-05-27 Rx nullFlavo Comprehensi 697e 8343-5 [facility]oria 21:58:00 21:58:00 r ve Heart 403-4d93-a l Care PA 6j4-1150ty Haylee nn 50c81f 2015-05-27 2015-05-27 Rx nullFlavo Comprehensi a6c8 24fd-9 [facility] 21:58:00 21:58:00 r ve Heart 3y4-393r-d l Care PA 492-e9cedf Haylee nn 10ab11 2015-05-27 2015-05-27 Rx nullFlavo Comprehensi dc7c 491b-2 [facility] 21:58:00 21:58:00 r ve Heart 91b-482f-a l Care PA ebe-2778b4 Haylee nn 6a9ee8 2015-05-27 2015-05-27 Rx nullFlavo Comprehensi f97d 6a74-4 [facility]oria 21:58:00 21:58:00 r ve Heart b01-9p5k-v l Care PA 39f-150bdf Haylee nn 47ff79 2015-05-27 2015-05-27 Rx nullFlavo Comprehensi fe2a 320a-5 [facility]oria 21:58:00 21:58:00 r ve Heart bd6-4324-9 l Care PA [id number]-r76992 Haylee nn 577c75 2015-05-27 2015-05-27 Rx nullFlavo Comprehensi 4c1a 6772-6 [facility]oria 21:58:00 21:58:00 r ve Heart 0y1-7249-1 l Care PA [id number] Haylee nn d31cd5 2015-05-27 2015-05-27 Rx nullFlavo Comprehensi 9435 2a62-3 Memoria 21:58:00 21:58:00 r ve Heart u33-3c98-c l Care PA 9t3-5zp0ws Haylee nn sj1049 2015-05-27 2015-05-27 Rx nullFlavo Comprehensi d703 1915-2 [facility] 21:58:00 21:58:00 r ve Heart i54-022i-e l Care PA 17e-aac87a Haylee nn 19afa3 2015-05-27 2015-05-27 Rx nullFlavo Comprehensi 4125 411a-6 Memoria 21:58:00 21:58:00 r ve Heart 51c-4ffc-b l Care PA 344-uxg252 Haylee nn 8c7e29 2015-05-27 2015-05-27 Rx nullFlavo Comprehensi 02fe da25-f Memoria 21:58:00 21:58:00 r ve Heart 8y0-73hv-m l Care PA b8c-4miw66 Haylee nn ed7f2a 2015-05-27 2015-05-27 Rx nullFlavo Comprehensi 0b1b 0c09-1 Memoria 21:58:00 21:58:00 r ve Heart 3i7-077d-8 l Care PA l74-0t728p [facility] nn 3cdd92 2015-05-27 2015-05-27 Rx nullFlavo Comprehensi 90b1 afa6-7 Memoria 21:58:00 21:58:00 r ve Heart f10-9056-p l Care PA u1j-683w5c [facility] nn c3b5b5 2015-05-27 2015-05-27 Rx nullFlavo Comprehensi dc7c 491b-2 Memoria 21:58:00 21:58:00 r ve Heart 91b-482f-a l Care PA ebe-2778b4 [facility] nn 6a9ee8 2015-05-27 2015-05-27 Rx nullFlavo Comprehensi a6c8 24fd-9 Memoria 21:58:00 21:58:00 r ve Heart 5i5-005z-j l Care PA 492-e9cedf [facility] nn 10ab11 2015-05-27 2015-05-27 Rx nullFlavo Comprehensi 9435 2a62-3 Memoria 21:58:00 21:58:00 r ve Heart u19-3n11-h l Care PA 5j7-1zy3ze [facility] nn yz2034 2015-05-27 2015-05-27 Rx nullFlavo Comprehensi 697e 8343-5 Memoria 21:58:00 21:58:00 r ve Heart 403-4d93-a l Care PA 6k1-5257ya [facility] nn 50c81f 2015-05-27 2015-05-27 Rx nullFlavo Comprehensi d703 1915-2 Memoria 21:58:00 21:58:00 r ve Heart g26-396g-q l Care PA 17e-aac87a [facility] nn 19afa3 2015-05-27 2015-05-27 Rx nullFlavo Comprehensi 4c1a 6772-6 Memoria 21:58:00 21:58:00 r ve Heart 8f5-2359-3 l Care PA [id number] [facility] nn d31cd5 2015-05-27 2015-05-27 Rx nullFlavo Comprehensi fe2a 320a-5 Memoria 21:58:00 21:58:00 r ve Heart bd6-4324-9 l Care PA 776-c04295 [facility]lee nn 577c75 2015-05-27 2015-05-27 Rx nullFlavo Comprehensi 02fe da25-f Memoria 21:58:00 21:58:00 r ve Heart 1x7-20nb-y l Care PA z6x-8rne41 [facility]lee nn ed7f2a 2015-05-27 2015-05-27 Rx nullFlavo Comprehensi f97d 6a74-4 Memoria 21:58:00 21:58:00 r ve Heart q43-3z5f-s l Care PA 39f-150bdf [facility] nn 47ff79 2015-05-27 2015-05-27 Rx nullFlavo Comprehensi 4125 411a-6 Memoria 21:58:00 21:58:00 r ve Heart 51c-4ffc-b l Care PA 344-oig626 [facility] nn 8c7e29 2015-05-27 2015-05-27 Rx nullFlavo Comprehensi 0b1b 0c09-1 Memoria 21:58:00 21:58:00 r ve Heart 4q7-571p-0 l Care PA p03-1a338k [facility] nn 3cdd92 2015-05-27 2015-05-27 Rx nullFlavo Comprehensi 90b1 afa6-7 Memoria 21:58:00 21:58:00 r ve Heart k20-1089-j l Care PA s5j-953a4i [facility] nn c3b5b5 2015-05-27 2015-05-27 Rx nullFlavo Comprehensi dc7c 491b-2 Memoria 21:58:00 21:58:00 r ve Heart 91b-482f-a l Care PA ebe-2778b4 [facility] nn 6a9ee8 2015-05-27 2015-05-27 Rx nullFlavo Comprehensi a6c8 24fd-9 Memoria 21:58:00 21:58:00 r ve Heart 2s3-964m-j l Care PA 492-e9cedf [facility] nn 10ab11 2015-05-27 2015-05-27 Rx nullFlavo Comprehensi 9435 2a62-3 Memoria 21:58:00 21:58:00 r ve Heart z36-9o95-q l Care PA 4q0-4xu1un [facility] ym0034 2015-05-27 2015-05-27 Rx nullFlavo Comprehensi 697e 8343-5 Memoria 21:58:00 21:58:00 r ve Heart 403-4d93-a l Care PA 5i4-7628if [facility] nn 50c81f 2015-05-27 2015-05-27 Rx nullFlavo Comprehensi d703 1915-2 Memoria 21:58:00 21:58:00 r ve Heart c10-172u-m l Care PA 17e-aac87a [facility] nn 19afa3 2015-05-27 2015-05-27 Rx nullFlavo Comprehensi 4c1a 6772-6 Memoria 21:58:00 21:58:00 r ve Heart 6v9-6515-8 l Care PA [id number] [facility] d31cd5 2015-05-27 2015-05-27 Rx nullFlavo Comprehensi fe2a 320a-5 Memoria 21:58:00 21:58:00 r ve Heart bd6-4324-9 l Care PA 776-r45374 [facility] nn 577c75 2015-05-27 2015-05-27 Rx nullFlavo Comprehensi 02fe da25-f Memoria 21:58:00 21:58:00 r ve Heart 6o3-85ca-b l Care PA z9n-6yrf13 [facility] ed7f2a 2015-05-27 2015-05-27 Rx nullFlavo Comprehensi f97d 6a74-4 Memoria 21:58:00 21:58:00 r ve Heart k44-6k6y-a l Care PA 39f-150bdf [facility] nn 47ff79 2015-05-27 2015-05-27 Rx nullFlavo Comprehensi 4125 411a-6 Memoria 21:58:00 21:58:00 r ve Heart 51c-4ffc-b l Care PA 344-avi862 [facility] 8c7e29 2015-05-27 2015-05-27 Rx nullFlavo Comprehensi 0b1b 0c09-1 Memoria 21:58:00 21:58:00 r ve Heart 4o5-058h-7 l Care PA f49-4e448c [facility] nn 3cdd92 2015-05-27 2015-05-27 Rx nullFlavo Comprehensi 90b1 afa6-7 Memoria 21:58:00 21:58:00 r ve Heart d47-5557-c l Care PA r3c-126n8k [facility]lee nn c3b5b5 2015-02-18 2015-02-19 EC nullFlavo [facility] [id number] Memoria 19:49:00 01:18:00 Emergency r Bruce 00 [facility] 2015-02-18 2015-02-19 EC nullFlavo [facility] [id number] 275 Memoria 19:49:00 01:18:00 Emergency r Redford 00 [facility] 2015-02-18 2015-02-19 EC nullFlavo [facility] [id number] Memoria 19:49:00 01:18:00 Emergency r [place] 00 [facility] 2015-02-18 2015-02-18 Outpatient [facility], 2.16.840. [id number] . [id number] 14:49:00 20:18:00 Dorie E [id number]. [id number] 5.0.085 91 6216-06-08 2015-02-18 Outpatient [facility], 2.16.840. [id number] . [id number] 14:49:00 20:18:00 Dorie E [id number]. [id number] 00 [id number] 5.0.030 31 7069-03-18 2014-11-28 Unknown nullFlavo Comprehensi 070f 8eef-7 Memoria 21:00:00 21:00:00 r ve Heart fd1-4bc7-9 l Care PA 74c-e6c2d0 [facility] nn 4v4030 2014-11-28 2014-11-28 Unknown nullFlavo Comprehensi ac37 98d6-c Memoria 21:00:00 21:00:00 r ve Heart 8l2-6132-j l Care PA 27e-fa50c2 [facility] nn d1f58b 2014-11-28 2014-11-28 Unknown nullFlavo Comprehensi 6b6d b225-5 [facility]oria 21:00:00 21:00:00 r ve Heart 21a-4684-b l Care PA n7x-487h5p [facility]lee nn 576077 2522-03-18 2014-11-28 Unknown nullFlavo Comprehensi e859 96b4-f Memoria 21:00:00 21:00:00 r ve Heart 77d-4cf3-9 l Care PA 522-bb7e93 [facility]lee nn 62dd6d 2014-11-28 2014-11-28 Unknown nullFlavo Comprehensi 4314 3faa-a Memoria 21:00:00 21:00:00 r ve Heart 30a-4920-8 l Care PA m10-hkdm4f [facility]lee nn 4d8fc6 2014-11-28 2014-11-28 Unknown nullFlavo Comprehensi 1f02 5b44-6 Memoria 21:00:00 21:00:00 r ve Heart fac-4822-8 l Care PA 364-da9b93 [facility]lee nn 3eb16e 2014-11-28 2014-11-28 Unknown nullFlavo Comprehensi fd20 08be-0 Memoria 21:00:00 21:00:00 r ve Heart 9j6-0n61-s l Care PA u42-93u5a5 [facility] nn 19cad0 2014-11-28 2014-11-28 Unknown nullFlavo Comprehensi 4314 3faa-a Memoria 21:00:00 21:00:00 r ve Heart 30a-4920-8 l Care PA q65-dtze3h [facility]lee nn 4d8fc6 2014-11-28 2014-11-28 Unknown nullFlavo Comprehensi 070f 8eef-7 Memoria 21:00:00 21:00:00 r ve Heart fd1-4bc7-9 l Care PA 74c-e6c2d0 [facility]lee nn 5y2951 2014-11-28 2014-11-28 Unknown nullFlavo Comprehensi ac37 98d6-c Memoria 21:00:00 21:00:00 r ve Heart 4g5-0141-g l Care PA 27e-fa50c2 [facility]lee nn d1f58b 2014-11-28 2014-11-28 Unknown nullFlavo Comprehensi fd20 08be-0 Memoria 21:00:00 21:00:00 r ve Heart 4d7-3f16-z l Care PA r55-18l0p1 [facility] nn 19cad0 2014-11-28 2014-11-28 Unknown nullFlavo Comprehensi 1f02 5b44-6 Memoria 21:00:00 21:00:00 r ve Heart fac-4822-8 l Care PA 364-da9b93 [facility]lee nn 3eb16e 2014-11-28 2014-11-28 Unknown nullFlavo Comprehensi 6b6d b225-5 Memoria 21:00:00 21:00:00 r ve Heart 21a-4684-b l Care PA m3y-751h0b [facility]lee nn 658827 6195-03-18 2014-11-28 Unknown nullFlavo Comprehensi e859 96b4-f Memoria 21:00:00 21:00:00 r ve Heart 77d-4cf3-9 l Care PA 522-bb7e93 [facility]lee nn 62dd6d 2014-11-28 2014-11-28 Unknown nullFlavo Comprehensi 4314 3faa-a Memoria 21:00:00 21:00:00 r ve Heart 30a-4920-8 l Care PA l18-beax9t [facility]lee nn 4d8fc6 2014-11-28 2014-11-28 Unknown nullFlavo Comprehensi 070f 8eef-7 Memoria 21:00:00 21:00:00 r ve Heart fd1-4bc7-9 l Care PA 74c-e6c2d0 [facility] nn 2j4044 2014-11-28 2014-11-28 Unknown nullFlavo Comprehensi ac37 98d6-c Memoria 21:00:00 21:00:00 r ve Heart 6d4-1330-o l Care PA 27e-fa50c2 [facility]lee nn d1f58b 2014-11-28 2014-11-28 Unknown nullFlavo Comprehensi fd20 08be-0 Memoria 21:00:00 21:00:00 r ve Heart 3x5-8a18-y l Care PA s94-45d8r2 [facility]lee nn 19cad0 2014-11-28 2014-11-28 Unknown nullFlavo Comprehensi 1f02 5b44-6 Memoria 21:00:00 21:00:00 r ve Heart fac-4822-8 l Care PA 364-da9b93 [facility]lee nn 3eb16e 2014-11-28 2014-11-28 Unknown nullFlavo Comprehensi 6b6d b225-5 Memoria 21:00:00 21:00:00 r ve Heart 21a-4684-b l Care PA k5w-370v7n Haylee nn 770880 1440-03-18 2014-11-28 Unknown nullFlavo Comprehensi e859 96b4-f Memoria 21:00:00 21:00:00 r ve Heart 77d-4cf3-9 l Care PA 522-bb7e93 [facility]lee nn 62dd6d 2014-11-28 2014-11-28 Unknown nullFlavo Comprehensi 3bde a484-b Memoria 20:00:00 20:00:00 r ve Heart s6z-900y-c l Care PA 8fe-dbe9fd [facility]lee nn 41fecd 2014-11-28 2014-11-28 Unknown nullFlavo Comprehensi e6ce a2fc-9 Memoria 20:00:00 20:00:00 r ve Heart 6e1-5u8p-5 l Care PA 7f7-r69734 [facility]lee nn 1cdf15 2014-11-28 2014-11-28 Unknown nullFlavo Comprehensi 1049 f8ae-3 Memoria 20:00:00 20:00:00 r ve Heart 4l2-75db-6 l Care PA v12-cja75f [facility]lee nn e07da0 2014-11-28 2014-11-28 Unknown nullFlavo Comprehensi 5bbf 2cf7-d Memoria 20:00:00 20:00:00 r ve Heart b65-70t0-1 l Care PA 226-18f58c Haylee nn 322b2e 2014-11-28 2014-11-28 Unknown nullFlavo Comprehensi 8b0e 18e8-8 Memoria 20:00:00 20:00:00 r ve Heart 813-4e4e-b l Care PA a32-8b9285 [facility]lee nn 490d3a 2014-11-28 2014-11-28 Unknown nullFlavo Comprehensi b638 516b-4 Memoria 20:00:00 20:00:00 r ve Heart 258-467d-b l Care PA 2m1-6c0q09 [facility]lee nn c446e1 2014-11-28 2014-11-28 Unknown nullFlavo Comprehensi 0432 798a-0 Memoria 20:00:00 20:00:00 r ve Heart 562-43b4-a l Care PA k52-9635q6 [facility] nn z52855 2014-11-28 2014-11-28 Unknown nullFlavo Comprehensi 431b cfde-5 Memoria 20:00:00 20:00:00 r ve Heart l17-3606-0 l Care PA b34-580xwh [facility] nn 2572ef 2014-11-28 2014-11-28 Unknown nullFlavo Comprehensi c49e b2b2-a Memoria 20:00:00 20:00:00 r ve Heart d5m-556e-2 l Care PA 7c3-7e8553 [facility] nn 39b932 2014-11-28 2014-11-28 Unknown nullFlavo Comprehensi f77c eb7a-f Memoria 20:00:00 20:00:00 r ve Heart 933-447e-b l Care PA 96f-b56549 [facility] nn b255a3 2014-11-28 2014-11-28 Unknown nullFlavo Comprehensi e3b6 958a-e Memoria 20:00:00 20:00:00 r ve Heart 0ec-491d-8 l Care PA 9b2-87ek1k [facility] nn u3i612 2014-11-28 2014-11-28 Unknown nullFlavo Comprehensi c522 4729-2 Memoria 20:00:00 20:00:00 r ve Heart 93d-4f17-8 l Care PA 35a-c7e1bb [facility] nn 5jl677 2014-11-28 2014-11-28 Unknown nullFlavo Comprehensi 1049 f8ae-3 Memoria 20:00:00 20:00:00 r ve Heart 4a6-72za-0 l Care PA y76-fty05l [facility] nn e07da0 2014-11-28 2014-11-28 Unknown nullFlavo Comprehensi e6ce a2fc-9 Memoria 20:00:00 20:00:00 r ve Heart 8f9-8q4r-1 l Care PA 0g2-o41108 [facility] nn 1cdf15 2014-11-28 2014-11-28 Unknown nullFlavo Comprehensi 0432 798a-0 Memoria 20:00:00 20:00:00 r ve Heart 562-43b4-a l Care PA i53-1201u0 [facility]lee nn y91212 2014-11-28 2014-11-28 Unknown nullFlavo Comprehensi 3bde a484-b Memoria 20:00:00 20:00:00 r ve Heart l9m-075b-y l Care PA 8fe-dbe9fd [facility]lee nn 41fecd 2014-11-28 2014-11-28 Unknown nullFlavo Comprehensi 431b cfde-5 Memoria 20:00:00 20:00:00 r ve Heart f09-3600-3 l Care PA e58-505kog Haylee nn 2572ef 2014-11-28 2014-11-28 Unknown nullFlavo Comprehensi b638 516b-4 Memoria 20:00:00 20:00:00 r ve Heart 258-467d-b l Care PA 0s7-5j1o11 [facility]lee nn c446e1 2014-11-28 2014-11-28 Unknown nullFlavo Comprehensi 8b0e 18e8-8 Memoria 20:00:00 20:00:00 r ve Heart 813-4e4e-b l Care PA m97-6q6281 [facility]lee nn 490d3a 2014-11-28 2014-11-28 Unknown nullFlavo Comprehensi f77c eb7a-f Memoria 20:00:00 20:00:00 r ve Heart 933-447e-b l Care PA 96f-u42361 [facility]lee nn b255a3 2014-11-28 2014-11-28 Unknown nullFlavo Comprehensi 5bbf 2cf7-d Memoria 20:00:00 20:00:00 r ve Heart e68-76f0-3 l Care PA 226-18f58c Haylee nn 322b2e 2014-11-28 2014-11-28 Unknown nullFlavo Comprehensi c49e b2b2-a Memoria 20:00:00 20:00:00 r ve Heart s0j-288t-4 l Care PA 7w8-4z7836 [facility]lee nn 29x902 2014-11-28 2014-11-28 Unknown nullFlavo Comprehensi e3b6 958a-e Memoria 20:00:00 20:00:00 r ve Heart 0ec-491d-8 l Care PA 9f8-78qz3b [facility]lee nn i8v289 2014-11-28 2014-11-28 Unknown nullFlavo Comprehensi c522 4729-2 Memoria 20:00:00 20:00:00 r ve Heart 93d-4f17-8 l Care PA 35a-c7e1bb [facility]lee nn 0pj067 2014-11-28 2014-11-28 Unknown nullFlavo Comprehensi 1049 f8ae-3 Memoria 20:00:00 20:00:00 r ve Heart 5a5-19fp-1 l Care PA o24-mjh36m [facility]lee nn e07da0 2014-11-28 2014-11-28 Unknown nullFlavo Comprehensi e6ce a2fc-9 Memoria 20:00:00 20:00:00 r ve Heart 7p8-3d8m-9 l Care PA 4s1-y34938 [facility] nn 1cdf15 2014-11-28 2014-11-28 Unknown nullFlavo Comprehensi 0432 798a-0 Memoria 20:00:00 20:00:00 r ve Heart 562-43b4-a l Care PA q01-8576r2 [facility]lee nn u99202 2014-11-28 2014-11-28 Unknown nullFlavo Comprehensi 3bde a484-b Memoria 20:00:00 20:00:00 r ve Heart w5z-513n-a l Care PA 8fe-dbe9fd [facility] nn 41fecd 2014-11-28 2014-11-28 Unknown nullFlavo Comprehensi 431b cfde-5 Memoria 20:00:00 20:00:00 r ve Heart j09-7857-2 l Care PA e02-227hej [facility] nn 2572ef 2014-11-28 2014-11-28 Unknown nullFlavo Comprehensi b638 516b-4 Memoria 20:00:00 20:00:00 r ve Heart 258-467d-b l Care PA 8f5-7n5d80 [facility] nn c446e1 2014-11-28 2014-11-28 Unknown nullFlavo Comprehensi 8b0e 18e8-8 Memoria 20:00:00 20:00:00 r ve Heart 813-4e4e-b l Care PA p01-8a1414 [facility] nn 490d3a 2014-11-28 2014-11-28 Unknown nullFlavo Comprehensi f77c eb7a-f Memoria 20:00:00 20:00:00 r ve Heart 933-447e-b l Care PA 96f-h87741 [facility] nn b255a3 2014-11-28 2014-11-28 Unknown nullFlavo Comprehensi 5bbf 2cf7-d Memoria 20:00:00 20:00:00 r ve Heart a13-30z1-0 l Care PA 226-18f58c [facility]lee nn 322b2e 2014-11-28 2014-11-28 Unknown nullFlavo Comprehensi c49e b2b2-a Memoria 20:00:00 20:00:00 r ve Heart v5h-757e-9 l Care PA 7f0-4t0320 [facility] nn 02s424 2014-11-28 2014-11-28 Unknown nullFlavo Comprehensi e3b6 958a-e Memoria 20:00:00 20:00:00 r ve Heart 0ec-491d-8 l Care PA 5y6-75ax1o [facility]lee nn v2x226 2014-11-28 2014-11-28 Unknown nullFlavo Comprehensi c522 4729-2 Memoria 20:00:00 20:00:00 r ve Heart 93d-4f17-8 l Care PA 35a-c7e1bb [facility]lee nn 5po530 2014-10-26 2014-10-26 Unknown nullFlavo Comprehensi 7bde c26f-c Memoria 16:34:00 16:34:00 r ve Heart 055-457d-9 l Care PA 5fc-29e2ff [facility] nn 81fd93 2014-10-26 2014-10-26 Unknown nullFlavo Comprehensi bf3b f735-1 Memoria 16:34:00 16:34:00 r ve Heart ea9-4727-8 l Care PA eee-o20508 [facility] nn 5d9a9c 2014-10-26 2014-10-26 Unknown nullFlavo Comprehensi 12a1 6011-e Memoria 16:34:00 16:34:00 r ve Heart 6ce-4fdf-9 l Care PA 60a-ab5dd8 [facility] nn 4l2814 2014-10-26 2014-10-26 Unknown nullFlavo Comprehensi 4db8 527c-2 Memoria 16:34:00 16:34:00 r ve Heart 48b-48ae-8 l Care PA 628-08d535 [facility]lee nn 0fff73 2014-10-26 2014-10-26 Unknown nullFlavo Comprehensi 5ad8 2f83-4 Memoria 16:34:00 16:34:00 r ve Heart e3a-9pcx-5 l Care PA 28e-942509 [facility]lee nn 8g954l 2014-10-26 2014-10-26 Unknown nullFlavo Comprehensi 8c7e 7418-a Memoria 16:34:00 16:34:00 r ve Heart 7x0-17i4-1 l Care PA 3ec-9dcd24 [facility] nn 4n0772 2014-10-26 2014-10-26 Unknown nullFlavo Comprehensi 5fcc 3749-7 Memoria 16:34:00 16:34:00 r ve Heart ee3-423e-9 l Care PA 4h0-028454 [facility]lee nn 36ae3b 2014-10-26 2014-10-26 Unknown nullFlavo Comprehensi 5ad8 2f83-4 Memoria 16:34:00 16:34:00 r ve Heart i8o-8aet-5 l Care PA 28e-916434 [facility] nn 4f619c 2014-10-26 2014-10-26 Unknown nullFlavo Comprehensi 7bde c26f-c Memoria 16:34:00 16:34:00 r ve Heart 055-457d-9 l Care PA 5fc-29e2ff [facility]lee nn 81fd93 2014-10-26 2014-10-26 Unknown nullFlavo Comprehensi bf3b f735-1 Memoria 16:34:00 16:34:00 r ve Heart ea9-4727-8 l Care PA eee-a42439 [facility]lee nn 5d9a9c 2014-10-26 2014-10-26 Unknown nullFlavo Comprehensi 5fcc 3749-7 Memoria 16:34:00 16:34:00 r ve Heart ee3-423e-9 l Care PA 9t7-672064 [facility]lee nn 36ae3b 2014-10-26 2014-10-26 Unknown nullFlavo Comprehensi 8c7e 7418-a Memoria 16:34:00 16:34:00 r ve Heart 8y9-05d8-8 l Care PA 3ec-9dcd24 [facility]lee nn 2t4780 2014-10-26 2014-10-26 Unknown nullFlavo Comprehensi 12a1 6011-e Memoria 16:34:00 16:34:00 r ve Heart 6ce-4fdf-9 l Care PA 60a-ab5dd8 [facility]lee nn 2b9615 2014-10-26 2014-10-26 Unknown nullFlavo Comprehensi 4db8 527c-2 Memoria 16:34:00 16:34:00 r ve Heart 48b-48ae-8 l Care PA 628-94s968 [facility]lee nn 0fff73 2014-10-26 2014-10-26 Unknown nullFlavo Comprehensi 5ad8 2f83-4 Memoria 16:34:00 16:34:00 r ve Heart f8j-5qws-9 l Care PA 28e-137299 [facility]lee nn 8v138h 2014-10-26 2014-10-26 Unknown nullFlavo Comprehensi 7bde c26f-c Memoria 16:34:00 16:34:00 r ve Heart 055-457d-9 l Care PA 5fc-29e2ff Haylee nn 81fd93 2014-10-26 2014-10-26 Unknown nullFlavo Comprehensi bf3b f735-1 Memoria 16:34:00 16:34:00 r ve Heart ea9-4727-8 l Care PA eee-i85247 Haylee nn 5d9a9c 2014-10-26 2014-10-26 Unknown nullFlavo Comprehensi 5fcc 3749-7 Memoria 16:34:00 16:34:00 r ve Heart ee3-423e-9 l Care PA 7j3-992946 Haylee nn 36ae3b 2014-10-26 2014-10-26 Unknown nullFlavo Comprehensi 8c7e 7418-a Memoria 16:34:00 16:34:00 r ve Heart 7m9-67f4-4 l Care PA 3ec-9dcd24 [facility]lee nn 4p9389 2014-10-26 2014-10-26 Unknown nullFlavo Comprehensi 12a1 6011-e Memoria 16:34:00 16:34:00 r ve Heart 6ce-4fdf-9 l Care PA 60a-ab5dd8 [facility] nn 1h9226 2014-10-26 2014-10-26 Unknown nullFlavo Comprehensi 4db8 527c-2 Memoria 16:34:00 16:34:00 r ve Heart 48b-48ae-8 l Care PA 628-31z580 [facility] nn 0fff73 2014-10-26 2014-10-26 Unknown nullFlavo Comprehensi 5ecc 3ffb-8 Memoria 15:34:00 15:34:00 r ve Heart 41a-4b6b-b l Care PA 1ff-0161f7 [facility] nn 1ba6e2 2014-10-26 2014-10-26 Unknown nullFlavo Comprehensi 90e3 6b79-2 Memoria 15:34:00 15:34:00 r ve Heart 7g4-3949-6 l Care PA 847-0e42fc [facility] nn a050a6 2014-10-26 2014-10-26 Unknown nullFlavo Comprehensi dd4d 3ade-2 Memoria 15:34:00 15:34:00 r ve Heart 507-4687-b l Care PA 867-1tk033 [facility] nn 8bcf55 2014-10-26 2014-10-26 Unknown nullFlavo Comprehensi f1de 1752-d Memoria 15:34:00 15:34:00 r ve Heart ed9-472f-8 l Care PA 7e3-1z8517 [facility] nn b9a38d 2014-10-26 2014-10-26 Unknown nullFlavo Comprehensi 57e3 37e9-b Memoria 15:34:00 15:34:00 r ve Heart 954-4742-a l Care PA 23b-jh604p [facility] nn 4e4ae5 2014-10-26 2014-10-26 Unknown nullFlavo Comprehensi 5bc0 e3d1-a Memoria 15:34:00 15:34:00 r ve Heart 2x2-2zax-4 l Care PA 326-6f11e2 [facility] nn 2311ff 2014-10-26 2014-10-26 Unknown nullFlavo Comprehensi de6b 6e79-7 Memoria 15:34:00 15:34:00 r ve Heart afb-4450-b l Care PA 59b-0pe520 [facility]lee nn d68b18 2014-10-26 2014-10-26 Unknown nullFlavo Comprehensi a1b2 1954-4 Memoria 15:34:00 15:34:00 r ve Heart 6h6-3nc3-9 l Care PA b8w-72oi54 [facility] nn k83915 2014-10-26 2014-10-26 Unknown nullFlavo Comprehensi e75c 3f32-f Memoria 15:34:00 15:34:00 r ve Heart 18c-4e22-9 l Care PA 466-34148n [facility]lee nn 6b88f6 2014-10-26 2014-10-26 Unknown nullFlavo Comprehensi 78df 08f3-9 Memoria 15:34:00 15:34:00 r ve Heart 465-47d6-8 l Care PA 583-003a2b Haylee nn 54cdcd 2014-10-26 2014-10-26 Unknown nullFlavo Comprehensi 0643 12a8-f [facility] 15:34:00 15:34:00 r ve Heart fb4-402e-8 l Care PA 4bd-407e1c Haylee nn 7abcf8 2014-10-26 2014-10-26 Unknown nullFlavo Comprehensi 2770 0c76-8 [facility] 15:34:00 15:34:00 r ve Heart l70-79pw-s l Care PA [id number]-83188o [facility] nn 2h4039 2014-10-26 2014-10-26 Unknown nullFlavo Comprehensi dd4d 3ade-2 [facility] 15:34:00 15:34:00 r ve Heart 507-4687-b l Care PA 867-0hr234 Haylee nn 8bcf55 2014-10-26 2014-10-26 Unknown nullFlavo Comprehensi 90e3 6b79-2 [facility] 15:34:00 15:34:00 r ve Heart 0x3-4220-6 l Care PA 847-0e42fc [facility] nn a050a6 2014-10-26 2014-10-26 Unknown nullFlavo Comprehensi de6b 6e79-7 [facility] 15:34:00 15:34:00 r ve Heart afb-4450-b l Care PA 59b-9sl695 Haylee nn d68b18 2014-10-26 2014-10-26 Unknown nullFlavo Comprehensi 5ecc 3ffb-8 [facility] 15:34:00 15:34:00 r ve Heart 41a-4b6b-b l Care PA 1ff-0161f7 Haylee nn 1ba6e2 2014-10-26 2014-10-26 Unknown nullFlavo Comprehensi a1b2 1954-4 [facility] 15:34:00 15:34:00 r ve Heart 5x7-6kw6-7 l Care PA t0h-70hl61 Haylee nn [id number] 2014-10-26 2014-10-26 Unknown nullFlavo Comprehensi 5bc0 e3d1-a [facility] 15:34:00 15:34:00 r ve Heart 4n3-9yxr-1 l Care PA 326-6f11e2 Haylee nn 2311ff 2014-10-26 2014-10-26 Unknown nullFlavo Comprehensi 57e3 37e9-b [facility] 15:34:00 15:34:00 r ve Heart 954-4742-a l Care PA 23b-ii343s Haylee nn 4e4ae5 2014-10-26 2014-10-26 Unknown nullFlavo Comprehensi 78df 08f3-9 [facility] 15:34:00 15:34:00 r ve Heart 465-47d6-8 l Care PA 583-003a2b Haylee nn 54cdcd 2014-10-26 2014-10-26 Unknown nullFlavo Comprehensi f1de 1752-d [facility] 15:34:00 15:34:00 r ve Heart ed9-472f-8 l Care PA 0e6-7v8280 Haylee nn b9a38d 2014-10-26 2014-10-26 Unknown nullFlavo Comprehensi e75c 3f32-f [facility] 15:34:00 15:34:00 r ve Heart 18c-4e22-9 l Care PA 466-90368k Haylee nn 6b88f6 2014-10-26 2014-10-26 Unknown nullFlavo Comprehensi 0643 12a8-f [facility] 15:34:00 15:34:00 r ve Heart fb4-402e-8 l Care PA 4bd-407e1c Haylee nn 7abcf8 2014-10-26 2014-10-26 Unknown nullFlavo Comprehensi 2770 0c76-8 [facility] 15:34:00 15:34:00 r ve Heart c73-52da-k l Care PA q5q-87586l Haylee nn 6c7849 2014-10-26 2014-10-26 Unknown nullFlavo Comprehensi dd4d 3ade-2 [facility] 15:34:00 15:34:00 r ve Heart 507-4687-b l Care PA 867-3cn651 Haylee nn 8bcf55 2014-10-26 2014-10-26 Unknown nullFlavo Comprehensi 90e3 6b79-2 [facility] 15:34:00 15:34:00 r ve Heart 6i6-9927-7 l Care PA 847-0e42fc [facility] nn a050a6 2014-10-26 2014-10-26 Unknown nullFlavo Comprehensi de6b 6e79-7 [facility] 15:34:00 15:34:00 r ve Heart afb-4450-b l Care PA 59b-4jl770 [facility] nn d68b18 2014-10-26 2014-10-26 Unknown nullFlavo Comprehensi 5ecc 3ffb-8 [facility] 15:34:00 15:34:00 r ve Heart 41a-4b6b-b l Care PA 1ff-0161f7 [facility] nn 1ba6e2 2014-10-26 2014-10-26 Unknown nullFlavo Comprehensi a1b2 1954-4 [facility] 15:34:00 15:34:00 r ve Heart 2v5-2vq5-1 l Care PA f1o-00rb87 Haylee nn c82027 2014-10-26 2014-10-26 Unknown nullFlavo Comprehensi 5bc0 e3d1-a [facility] 15:34:00 15:34:00 r ve Heart 7k2-7kde-5 l Care PA 326-6f11e2 Haylee nn 2311ff 2014-10-26 2014-10-26 Unknown nullFlavo Comprehensi 57e3 37e9-b [facility] 15:34:00 15:34:00 r ve Heart 954-4742-a l Care PA 23b-km415g Haylee nn 4e4ae5 2014-10-26 2014-10-26 Unknown nullFlavo Comprehensi 78df 08f3-9 [facility] 15:34:00 15:34:00 r ve Heart 465-47d6-8 l Care PA 583-003a2b Haylee nn 54cdcd 2014-10-26 2014-10-26 Unknown nullFlavo Comprehensi f1de 1752-d [facility] 15:34:00 15:34:00 r ve Heart ed9-472f-8 l Care PA 1e6-9v3850 Haylee nn b9a38d 2014-10-26 2014-10-26 Unknown nullFlavo Comprehensi e75c 3f32-f [facility] 15:34:00 15:34:00 r ve Heart 18c-4e22-9 l Care PA 466-11775j Haylee nn 6b88f6 2014-10-26 2014-10-26 Unknown nullFlavo Comprehensi 0643 12a8-f [facility] 15:34:00 15:34:00 r ve Heart fb4-402e-8 l Care PA 4bd-407e1c Haylee nn 7abcf8 2014-10-26 2014-10-26 Unknown nullFlavo Comprehensi 2770 0c76-8 [facility] 15:34:00 15:34:00 r ve Heart m63-72ax-x l Care PA h7i-12383i Haylee nn 7h4337 2014-06-04 2014-06-04 Unknown nullFlavo Comprehensi f683 0800-0 [facility] 23:05:00 23:05:00 r ve Heart fc1-481c-a l Care PA e8w-981917 Haylee nn c75c2d 2014-06-04 2014-06-04 Unknown nullFlavo Comprehensi 6e84 60f2-7 [facility] 23:05:00 23:05:00 r ve Heart n64-23do-8 l Care PA 7z2-0m062w Haylee nn 1c1aad 2014-06-04 2014-06-04 Unknown nullFlavo Comprehensi 6c0a 5f2e-7 [facility] 23:05:00 23:05:00 r ve Heart 507-4dfc-a l Care PA 896-ad7aaa Haylee nn 19a3d6 2014-06-04 2014-06-04 Unknown nullFlavo Comprehensi ae2d 04ba-b [facility] 23:05:00 23:05:00 r ve Heart ef1-4c2a-b l Care PA 414-749a94 Haylee nn 37509a 2014-06-04 2014-06-04 Unknown nullFlavo Comprehensi f4e3 bdad-a [facility] 23:05:00 23:05:00 r ve Heart 748-4d71-b l Care PA x1x-0114pm Haylee nn 310c0c 2014-06-04 2014-06-04 Unknown nullFlavo Comprehensi f037 c320-b [facility] 23:05:00 23:05:00 r ve Heart 3cb-41ea-a l Care PA q02-b91x60 Haylee nn 4cn324 2014-06-04 2014-06-04 Unknown nullFlavo Comprehensi 3603 7cef-2 [facility] 23:05:00 23:05:00 r ve Heart dc6-4f88-9 l Care PA j58-00lto0 Haylee nn d70e22 2014-06-04 2014-06-04 Unknown nullFlavo Comprehensi f4e3 bdad-a [facility] 23:05:00 23:05:00 r ve Heart 748-4d71-b l Care PA r9n-3344hy Haylee nn 310c0c 2014-06-04 2014-06-04 Unknown nullFlavo Comprehensi f683 0800-0 [facility] 23:05:00 23:05:00 r ve Heart fc1-481c-a l Care PA z5m-017591 Haylee nn c75c2d 2014-06-04 2014-06-04 Unknown nullFlavo Comprehensi 6e84 60f2-7 [facility] 23:05:00 23:05:00 r ve Heart f86-34za-4 l Care PA 6l6-6n809e Haylee nn 1c1aad 2014-06-04 2014-06-04 Unknown nullFlavo Comprehensi 3603 7cef-2 [facility] 23:05:00 23:05:00 r ve Heart dc6-4f88-9 l Care PA a84-29jlh8 Haylee nn d70e22 2014-06-04 2014-06-04 Unknown nullFlavo Comprehensi f037 c320-b [facility] 23:05:00 23:05:00 r ve Heart 3cb-41ea-a l Care PA w57-r85e29 Haylee nn 7po355 2014-06-04 2014-06-04 Unknown nullFlavo Comprehensi 6c0a 5f2e-7 [facility] 23:05:00 23:05:00 r ve Heart 507-4dfc-a l Care PA 896-ad7aaa Haylee nn 19a3d6 2014-06-04 2014-06-04 Unknown nullFlavo Comprehensi ae2d 04ba-b [facility] 23:05:00 23:05:00 r ve Heart ef1-4c2a-b l Care PA 414-749a94 Haylee nn 01710i 2014-06-04 2014-06-04 Unknown nullFlavo Comprehensi f4e3 bdad-a [facility] 23:05:00 23:05:00 r ve Heart 748-4d71-b l Care PA c8u-3147de Haylee nn 310c0c 2014-06-04 2014-06-04 Unknown nullFlavo Comprehensi f683 0800-0 [facility] 23:05:00 23:05:00 r ve Heart fc1-481c-a l Care PA y4o-045575 Haylee nn c75c2d 2014-06-04 2014-06-04 Unknown nullFlavo Comprehensi 6e84 60f2-7 [facility] 23:05:00 23:05:00 r ve Heart w91-39cq-8 l Care PA 4r7-1u959s Haylee nn 1c1aad 2014-06-04 2014-06-04 Unknown nullFlavo Comprehensi 3603 7cef-2 [facility] 23:05:00 23:05:00 r ve Heart dc6-4f88-9 l Care PA j99-78kox2 Haylee nn d70e22 2014-06-04 2014-06-04 Unknown nullFlavo Comprehensi f037 c320-b [facility] 23:05:00 23:05:00 r ve Heart 3cb-41ea-a l Care PA p12-n75u20 Haylee nn 4tc161 2014-06-04 2014-06-04 Unknown nullFlavo Comprehensi 6c0a 5f2e-7 [facility] 23:05:00 23:05:00 r ve Heart 507-4dfc-a l Care PA 896-ad7aaa Haylee nn 19a3d6 2014-06-04 2014-06-04 Unknown nullFlavo Comprehensi ae2d 04ba-b [facility] 23:05:00 23:05:00 r ve Heart ef1-4c2a-b l Care PA 414-749a94 Haylee nn 95399h 2014-06-04 2014-06-04 Unknown nullFlavo Comprehensi 7fd6 da90-a [facility] 22:05:00 22:05:00 r ve Heart 6y9-1okp-i l Care PA 321-1s434b Haylee nn 83c71b 2014-06-04 2014-06-04 Unknown nullFlavo Comprehensi c2bf 83ca-a [facility] 22:05:00 22:05:00 r ve Heart 2p9-61s9-z l Care PA 8df-ac1e4a Haylee nn 04k616 2014-06-04 2014-06-04 Unknown nullFlavo Comprehensi be4a e6b3-e [facility] 22:05:00 22:05:00 r ve Heart a6c-5t4m-4 l Care PA aa0-69255p Haylee nn 746aa8 2014-06-04 2014-06-04 Unknown nullFlavo Comprehensi 244b 8935-1 [facility] 22:05:00 22:05:00 r ve Heart w65-3057-e l Care PA j9w-aa05i4 Haylee nn 5deeeb 2014-06-04 2014-06-04 Unknown nullFlavo Comprehensi 1d99 7291-d [facility] 22:05:00 22:05:00 r ve Heart dbe-4fc5-8 l Care PA 953-2fn416 Haylee nn ba49a4 2014-06-04 2014-06-04 Unknown nullFlavo Comprehensi 4adc 9261-4 [facility] 22:05:00 22:05:00 r ve Heart 0h3-8e3u-y l Care PA v5l-4gl7i6 Haylee nn 315cb6 2014-06-04 2014-06-04 Unknown nullFlavo Comprehensi 8efd 88cc-c [facility] 22:05:00 22:05:00 r ve Heart 09b-4714-8 l Care PA 9h9-9lvt7r Haylee nn f6b1ca 2014-06-04 2014-06-04 Unknown nullFlavo Comprehensi f8de 47fd-6 [facility] 22:05:00 22:05:00 r ve Heart fee-4f25-9 l Care PA ae0-134263 Haylee nn 0mp359 2014-06-04 2014-06-04 Unknown nullFlavo Comprehensi d1db 7126-8 [facility] 22:05:00 22:05:00 r ve Heart j4j-9347-6 l Care PA z9e-04490g Haylee nn e7fdc3 2014-06-04 2014-06-04 Unknown nullFlavo Comprehensi 455f db51-5 [facility] 22:05:00 22:05:00 r ve Heart 6eb-4eae-a l Care PA z94-2l200p Haylee nn jac037 2014-06-04 2014-06-04 Unknown nullFlavo Comprehensi 2cc4 d6c1-5 [facility] 22:05:00 22:05:00 r ve Heart 090-4c86-a l Care PA bad-ma3234 Haylee nn b7b0e6 2014-06-04 2014-06-04 Unknown nullFlavo Comprehensi b24f 0be2-f [facility] 22:05:00 22:05:00 r ve Heart 980-4915-a l Care PA e1b-021pc8 Haylee nn 7y8209 2014-06-04 2014-06-04 Unknown nullFlavo Comprehensi 4bd6 fbcc-a [facility] 22:05:00 22:05:00 r ve Heart o4v-45j4-6 l Care PA a36-bsl3ce Haylee nn 1a1bce 2014-06-04 2014-06-04 Unknown nullFlavo Comprehensi 7fd6 da90-a [facility] 22:05:00 22:05:00 r ve Heart 6j1-6znn-i l Care PA 321-6b877t Haylee nn 83c71b 2014-06-04 2014-06-04 Unknown nullFlavo Comprehensi 244b 8935-1 [facility] 22:05:00 22:05:00 r ve Heart e40-2724-k l Care PA r7e-yr55q0 Haylee nn 5deeeb 2014-06-04 2014-06-04 Unknown nullFlavo Comprehensi be4a e6b3-e [facility] 22:05:00 22:05:00 r ve Heart a8y-9c9y-0 l Care PA aa0-63018w Haylee nn 746aa8 2014-06-04 2014-06-04 Unknown nullFlavo Comprehensi f8de 47fd-6 [facility] 22:05:00 22:05:00 r ve Heart fee-4f25-9 l Care PA ae0-114912 Haylee nn 6ay663 2014-06-04 2014-06-04 Unknown nullFlavo Comprehensi c2bf 83ca-a [facility] 22:05:00 22:05:00 r ve Heart 3g4-64t2-h l Care PA 8df-ac1e4a Haylee nn 63i492 2014-06-04 2014-06-04 Unknown nullFlavo Comprehensi d1db 7126-8 [facility] 22:05:00 22:05:00 r ve Heart n9n-5960-2 l Care PA d5e-57474h Haylee nn e7fdc3 2014-06-04 2014-06-04 Unknown nullFlavo Comprehensi 8efd 88cc-c [facility] 22:05:00 22:05:00 r ve Heart 09b-4714-8 l Care PA 2y0-2ucl5t Haylee nn f6b1ca 2014-06-04 2014-06-04 Unknown nullFlavo Comprehensi 4adc 9261-4 [facility] 22:05:00 22:05:00 r ve Heart 3m6-5i0y-x l Care PA n6f-2mv0p0 Haylee nn 315cb6 2014-06-04 2014-06-04 Unknown nullFlavo Comprehensi 2cc4 d6c1-5 [facility] 22:05:00 22:05:00 r ve Heart 090-4c86-a l Care PA bad-sv9373 Haylee nn b7b0e6 2014-06-04 2014-06-04 Unknown nullFlavo Comprehensi 1d99 7291-d [facility] 22:05:00 22:05:00 r ve Heart dbe-4fc5-8 l Care PA 953-5cs889 Haylee nn ba49a4 2014-06-04 2014-06-04 Unknown nullFlavo Comprehensi 455f db51-5 [facility] 22:05:00 22:05:00 r ve Heart 6eb-4eae-a l Care PA j00-8r307t Haylee nn ubq531 2014-06-04 2014-06-04 Unknown nullFlavo Comprehensi b24f 0be2-f [facility] 22:05:00 22:05:00 r ve Heart 980-4915-a l Care PA w8y-867bl7 Haylee nn 9c3067 2014-06-04 2014-06-04 Unknown nullFlavo Comprehensi 4bd6 fbcc-a [facility] 22:05:00 22:05:00 r ve Heart m4g-83l8-1 l Care PA l29-qww6zp Haylee nn 1a1bce 2014-06-04 2014-06-04 Unknown nullFlavo Comprehensi 7fd6 da90-a [facility] 22:05:00 22:05:00 r ve Heart 0y4-7cje-x l Care PA 321-7s577z Haylee nn 83c71b 2014-06-04 2014-06-04 Unknown nullFlavo Comprehensi 244b 8935-1 [facility] 22:05:00 22:05:00 r ve Heart o58-3420-d l Care PA c5j-mb37x2 Haylee nn 5deeeb 2014-06-04 2014-06-04 Unknown nullFlavo Comprehensi be4a e6b3-e [facility] 22:05:00 22:05:00 r ve Heart k2c-4w0v-7 l Care PA aa0-87293j Haylee nn 746aa8 2014-06-04 2014-06-04 Unknown nullFlavo Comprehensi f8de 47fd-6 [facility] 22:05:00 22:05:00 r ve Heart fee-4f25-9 l Care PA ae0-192337 Haylee nn 4fn666 2014-06-04 2014-06-04 Unknown nullFlavo Comprehensi c2bf 83ca-a [facility] 22:05:00 22:05:00 r ve Heart 2w8-12z1-x l Care PA 8df-ac1e4a Haylee nn 33w589 2014-06-04 2014-06-04 Unknown nullFlavo Comprehensi d1db 7126-8 [facility] 22:05:00 22:05:00 r ve Heart m1h-4215-2 l Care PA i3m-72167h Haylee nn e7fdc3 2014-06-04 2014-06-04 Unknown nullFlavo Comprehensi 8efd 88cc-c [facility] 22:05:00 22:05:00 r ve Heart 09b-4714-8 l Care PA 6h0-6otp3w Haylee nn f6b1ca 2014-06-04 2014-06-04 Unknown nullFlavo Comprehensi 4adc 9261-4 [facility] 22:05:00 22:05:00 r ve Heart 0a8-9y7a-j l Care PA d3q-3uv4w9 Haylee nn 315cb6 2014-06-04 2014-06-04 Unknown nullFlavo Comprehensi 2cc4 d6c1-5 [facility] 22:05:00 22:05:00 r ve Heart 090-4c86-a l Care PA bad-ll3903 Haylee nn b7b0e6 2014-06-04 2014-06-04 Unknown nullFlavo Comprehensi 1d99 7291-d [facility] 22:05:00 22:05:00 r ve Heart dbe-4fc5-8 l Care PA 953-6kq022 Haylee nn ba49a4 2014-06-04 2014-06-04 Unknown nullFlavo Comprehensi 455f db51-5 [facility] 22:05:00 22:05:00 r ve Heart 6eb-4eae-a l Care PA v43-3v948a Haylee nn hnf556 2014-06-04 2014-06-04 Unknown nullFlavo Comprehensi b24f 0be2-f [facility] 22:05:00 22:05:00 r ve Heart 980-4915-a l Care PA n2r-263ij9 Haylee nn 2m0368 2014-06-04 2014-06-04 Unknown nullFlavo Comprehensi 4bd6 fbcc-a [facility] 22:05:00 22:05:00 r ve Heart i2k-52r1-7 l Care PA v83-hjp9ge Haylee nn 1a1bce 2014-06-04 2014-06-04 Outpatient Comprehen Comprehensi 3 63204 [facility] 17:05:00 17:05:00 [facility] PA Care PA 2014-06-04 2014-06-04 Outpatient Comprehen Comprehensi 3 67181 [facility]inic 17:05:00 17:05:00 [facility] PA Care PA 2014-05-23 2014-05-23 Unknown nullFlavo Comprehensi 9b0c 749d-a [facility] 20:16:00 20:16:00 r ve Heart 3d0-0f63-e l Care PA 2da-kpb617 Haylee nn 6e87dd 2014-05-23 2014-05-23 Unknown nullFlavo Comprehensi d8cb b448-9 [facility] 20:16:00 20:16:00 r ve Heart 8y2-91uu-3 l Care PA 65d-eef39c Haylee nn 68a2e8 2014-05-23 2014-05-23 Unknown nullFlavo Comprehensi ec67 359c-9 [facility] 20:16:00 20:16:00 r ve Heart r19-4794-l l Care PA w36-66d289 Haylee nn 6ab55d 2014-05-23 2014-05-23 Unknown nullFlavo Comprehensi 8d42 3ca3-c [facility] 20:16:00 20:16:00 r ve Heart be1-4887-a l Care PA 153-5e2bdb Haylee nn 2b78d8 2014-05-23 2014-05-23 Unknown nullFlavo Comprehensi 2b6e 5fdc-2 [facility] 20:16:00 20:16:00 r ve Heart u10-4k6l-h l Care PA c89-pge5dp Haylee nn 59784v 2014-05-23 2014-05-23 Unknown nullFlavo Comprehensi 5739 b8dd-3 [facility] 20:16:00 20:16:00 r ve Heart 261-4944-8 l Care PA 7l4-bv7t91 Haylee nn 9ba4ab 2014-05-23 2014-05-23 Unknown nullFlavo Comprehensi fcf4 c8ed-d [facility] 20:16:00 20:16:00 r ve Heart 015-4af2-b l Care PA ca3-c773ac Haylee nn e2a5cc 2014-05-23 2014-05-23 Unknown nullFlavo Comprehensi 2b6e 5fdc-2 [facility] 20:16:00 20:16:00 r ve Heart a22-4i6l-w l Care PA n31-qyk1lu Haylee nn 73663l 2014-05-23 2014-05-23 Unknown nullFlavo Comprehensi 9b0c 749d-a [facility] 20:16:00 20:16:00 r ve Heart 4i9-8m74-b l Care PA 2da-ygz262 Haylee nn 6e87dd 2014-05-23 2014-05-23 Unknown nullFlavo Comprehensi d8cb b448-9 [facility] 20:16:00 20:16:00 r ve Heart 7d1-02id-0 l Care PA 65d-eef39c Haylee nn 68a2e8 2014-05-23 2014-05-23 Unknown nullFlavo Comprehensi fcf4 c8ed-d [facility]oria 20:16:00 20:16:00 r ve Heart 015-4af2-b l Care PA ca3-c773ac Haylee nn e2a5cc 2014-05-23 2014-05-23 Unknown nullFlavo Comprehensi 5739 b8dd-3 [facility] 20:16:00 20:16:00 r ve Heart 261-4944-8 l Care PA 5o7-ra7u89 Haylee nn 9ba4ab 2014-05-23 2014-05-23 Unknown nullFlavo Comprehensi ec67 359c-9 [facility] 20:16:00 20:16:00 r ve Heart k02-5111-p l Care PA q32-45x861 Haylee nn 6ab55d 2014-05-23 2014-05-23 Unknown nullFlavo Comprehensi 8d42 3ca3-c [facility]oria 20:16:00 20:16:00 r ve Heart be1-4887-a l Care PA 153-5e2bdb Haylee nn 2b78d8 2014-05-23 2014-05-23 Unknown nullFlavo Comprehensi 2b6e 5fdc-2 [facility] 20:16:00 20:16:00 r ve Heart j89-0u3r-p l Care PA e32-yig2bp Haylee nn 58687f 2014-05-23 2014-05-23 Unknown nullFlavo Comprehensi 9b0c 749d-a [facility] 20:16:00 20:16:00 r ve Heart 6f9-5x35-c l Care PA 2da-pnj563 Haylee nn 6e87dd 2014-05-23 2014-05-23 Unknown nullFlavo Comprehensi d8cb b448-9 [facility] 20:16:00 20:16:00 r ve Heart 9z9-67sj-1 l Care PA 65d-eef39c Haylee nn 68a2e8 2014-05-23 2014-05-23 Unknown nullFlavo Comprehensi fcf4 c8ed-d [facility] 20:16:00 20:16:00 r ve Heart 015-4af2-b l Care PA ca3-c773ac Haylee nn e2a5cc 2014-05-23 2014-05-23 Unknown nullFlavo Comprehensi 5739 b8dd-3 [facility] 20:16:00 20:16:00 r ve Heart 261-4944-8 l Care PA 3s0-zv4r56 Haylee nn 9ba4ab 2014-05-23 2014-05-23 Unknown nullFlavo Comprehensi ec67 359c-9 [facility] 20:16:00 20:16:00 r ve Heart o72-9878-f l Care PA z02-59b765 Haylee nn 6ab55d 2014-05-23 2014-05-23 Unknown nullFlavo Comprehensi 8d42 3ca3-c [facility] 20:16:00 20:16:00 r ve Heart be1-4887-a l Care PA 153-5e2bdb Haylee nn 2b78d8 2014-05-23 2014-05-23 Unknown nullFlavo Comprehensi dc18 0652-3 [facility] 19:16:00 19:16:00 r ve Heart de5-4854-8 l Care PA i00-nqkq96 Haylee nn ec60ec 2014-05-23 2014-05-23 Unknown nullFlavo Comprehensi 9a16 e598-f [facility] 19:16:00 19:16:00 r ve Heart n2h-420p-i l Care PA 8b1-15t59r Haylee nn a86cfa 2014-05-23 2014-05-23 Unknown nullFlavo Comprehensi e387 6469-2 [facility] 19:16:00 19:16:00 r ve Heart 396-49bd-9 l Care PA 34e-241b8b Haylee nn 0af6d6 2014-05-23 2014-05-23 Unknown nullFlavo Comprehensi 0715 700a-e [facility] 19:16:00 19:16:00 r ve Heart 595-4bf7-9 l Care PA dde-350e31 Haylee nn o0657a 2014-05-23 2014-05-23 Unknown nullFlavo Comprehensi efc1 6040-2 [facility]oria 19:16:00 19:16:00 r ve Heart 1h0-50eo-v l Care PA 555-339dac Haylee nn dcb7cb 2014-05-23 2014-05-23 Unknown nullFlavo Comprehensi 8114 0fc0-2 [facility]oria 19:16:00 19:16:00 r ve Heart 9v9-29o3-8 l Care PA 967-571849 Haylee nn 4e3e19 2014-05-23 2014-05-23 Unknown nullFlavo Comprehensi 203e 6fa3-d [facility] 19:16:00 19:16:00 r ve Heart bdc-4bff-8 l Care PA 555-141848 Haylee nn 1d6c04 2014-05-23 2014-05-23 Unknown nullFlavo Comprehensi 3bc9 4325-5 [facility] 19:16:00 19:16:00 r ve Heart 19a-4dd9-a l Care PA 1be-4163a6 Haylee nn 90df66 2014-05-23 2014-05-23 Unknown nullFlavo Comprehensi 6f04 275e-3 [facility] 19:16:00 19:16:00 r ve Heart 156-491d-9 l Care PA 82d-4b1d1e Haylee nn 22727m 2014-05-23 2014-05-23 Unknown nullFlavo Comprehensi 2431 7a0f-1 [facility] 19:16:00 19:16:00 r ve Heart 8k6-366c-b l Care PA 6v9-l0w8li Haylee nn a1c67d 2014-05-23 2014-05-23 Unknown nullFlavo [...] 0017-2 [facility]oria 19:16:00 19:16:00 r ve Heart p44-687g-6 l Care PA 978-2e87e6 Haylee nn 691696 6550-09-10 2014-05-23 Unknown nullFlavo Comprehensi e9b0 f3a1-2 [facility]oria 19:16:00 19:16:00 r ve Heart n1f-6o06-m l Care PA r1r-2a5576 Haylee nn 47c2de 2014-05-23 2014-05-23 Unknown nullFlavo Comprehensi 7a31 3e34-e [facility]oria 19:16:00 19:16:00 r ve Heart 400-4932-8 l Care PA v89-8sb87w Haylee nn c8ac2b 2014-05-23 2014-05-23 Unknown nullFlavo Comprehensi 203e 6fa3-d [facility] 19:16:00 19:16:00 r ve Heart bdc-4bff-8 l Care PA 555-684538 Haylee nn 1d6c04 2014-05-23 2014-05-23 Unknown nullFlavo Comprehensi dc18 0652-3 [facility] 19:16:00 19:16:00 r ve Heart de5-4854-8 l Care PA j48-wolf35 Haylee nn ec60ec 2014-05-23 2014-05-23 Unknown nullFlavo Comprehensi 9a16 e598-f [facility]oria 19:16:00 19:16:00 r ve Heart p0g-152z-f l Care PA 7u3-79r64i Haylee nn a86cfa 2014-05-23 2014-05-23 Unknown nullFlavo Comprehensi 8114 0fc0-2 Memoria 19:16:00 19:16:00 r ve Heart 2x2-20h0-0 l Care PA 967-697459 Haylee nn 4e3e19 2014-05-23 2014-05-23 Unknown nullFlavo Comprehensi e387 6469-2 [facility]oria 19:16:00 19:16:00 r ve Heart 396-49bd-9 l Care PA 34e-241b8b Haylee nn 0af6d6 2014-05-23 2014-05-23 Unknown nullFlavo Comprehensi efc1 6040-2 [facility] 19:16:00 19:16:00 r ve Heart 4x5-91te-d l Care PA 555-339dac Haylee nn dcb7cb 2014-05-23 2014-05-23 Unknown nullFlavo Comprehensi 69fc 8f62-8 Memoria 19:16:00 19:16:00 r ve Heart 764-45a8-9 l Care PA 76e-d819e2 Haylee nn 103e33 2014-05-23 2014-05-23 Unknown nullFlavo Comprehensi 0715 700a-e [facility] 19:16:00 19:16:00 r ve Heart 595-4bf7-9 l Care PA dde-350e31 Haylee nn d6885j 2014-05-23 2014-05-23 Unknown nullFlavo Comprehensi 2a8c d8c6-a [facility]oria 19:16:00 19:16:00 r ve Heart 6ba-4541-8 l Care PA 76a-2b87fc Haylee nn 2d4b9d 2014-05-23 2014-05-23 Unknown nullFlavo Comprehensi 2431 7a0f-1 [facility] 19:16:00 19:16:00 r ve Heart 4j2-816j-i l Care PA 1e1-f1f9ht Haylee nn a1c67d 2014-05-23 2014-05-23 Unknown nullFlavo Comprehensi 6f04 275e-3 Memoria 19:16:00 19:16:00 r ve Heart 156-491d-9 l Care PA 82d-4b1d1e Haylee nn 58559r 2014-05-23 2014-05-23 Unknown nullFlavo Comprehensi a10c 0017-2 [facility]oria 19:16:00 19:16:00 r ve Heart k58-340c-8 l Care PA 978-2e87e6 Haylee nn 087064 4397-09-10 2014-05-23 Unknown nullFlavo Comprehensi 3bc9 4325-5 [facility] 19:16:00 19:16:00 r ve Heart 19a-4dd9-a l Care PA 1be-4163a6 Haylee nn 90df66 2014-05-23 2014-05-23 Unknown nullFlavo Comprehensi 73c1 eeaa-3 [facility]oria 19:16:00 19:16:00 r ve Heart ed9-45d6-b l Care PA 8fa-d59e4f Haylee nn aad25b 2014-05-23 2014-05-23 Unknown nullFlavo Comprehensi e9b0 f3a1-2 [facility]oria 19:16:00 19:16:00 r ve Heart c2k-5g14-j l Care PA v4b-0m6420 Haylee nn 47c2de 2014-05-23 2014-05-23 Unknown nullFlavo Comprehensi 7a31 3e34-e [facility]oria 19:16:00 19:16:00 r ve Heart 400-4932-8 l Care PA x61-7fa37m Haylee nn c8ac2b 2014-05-23 2014-05-23 Unknown nullFlavo Comprehensi 203e 6fa3-d [facility]oria 19:16:00 19:16:00 r ve Heart bdc-4bff-8 l Care PA 555-569749 Haylee nn 1d6c04 2014-05-23 2014-05-23 Unknown nullFlavo Comprehensi dc18 0652-3 [facility] 19:16:00 19:16:00 r ve Heart de5-4854-8 l Care PA i04-peot70 Haylee nn ec60ec 2014-05-23 2014-05-23 Unknown nullFlavo Comprehensi 9a16 e598-f Memoria 19:16:00 19:16:00 r ve Heart o5m-225n-p l Care PA 2n8-01f63p Haylee nn a86cfa 2014-05-23 2014-05-23 Unknown nullFlavo Comprehensi 8114 0fc0-2 Memoria 19:16:00 19:16:00 r ve Heart 8z8-13l3-4 l Care PA 967-920348 Haylee nn 4e3e19 2014-05-23 2014-05-23 Unknown nullFlavo Comprehensi e387 6469-2 [facility] 19:16:00 19:16:00 r ve Heart 396-49bd-9 l Care PA 34e-241b8b Haylee nn 0af6d6 2014-05-23 2014-05-23 Unknown nullFlavo Comprehensi efc1 6040-2 [facility] 19:16:00 19:16:00 r ve Heart 7m7-87ti-i l Care PA 555-339dac Haylee nn dcb7cb 2014-05-23 2014-05-23 Unknown nullFlavo Comprehensi 69fc 8f62-8 Memoria 19:16:00 19:16:00 r ve Heart 764-45a8-9 l Care PA 76e-d819e2 Haylee nn 103e33 2014-05-23 2014-05-23 Unknown nullFlavo Comprehensi 0715 700a-e [facility] 19:16:00 19:16:00 r ve Heart 595-4bf7-9 l Care PA dde-350e31 Haylee nn b8422i 2014-05-23 2014-05-23 Unknown nullFlavo Comprehensi 2a8c d8c6-a Memoria 19:16:00 19:16:00 r ve Heart 6ba-4541-8 l Care PA 76a-2b87fc Haylee nn 2d4b9d 2014-05-23 2014-05-23 Unknown nullFlavo Comprehensi 2431 7a0f-1 [facility] 19:16:00 19:16:00 r ve Heart 4b5-786t-j l Care PA 2a6-n6j7ib Haylee nn a1c67d 2014-05-23 2014-05-23 Unknown nullFlavo Comprehensi 6f04 275e-3 Mem[facility] 19:16:00 19:16:00 r ve Heart 156-491d-9 l Care PA 82d-4b1d1e Haylee nn 63725v 2014-05-23 2014-05-23 Unknown nullFlavo Comprehensi a10c 0017-2 Memoria 19:16:00 19:16:00 r ve Heart y76-079b-9 l Care PA 978-2e87e6 [facility] nn 132083 2593-09-10 2014-05-23 Unknown nullFlavo Comprehensi 3bc9 4325-5 Memoria 19:16:00 19:16:00 r ve Heart 19a-4dd9-a l Care PA 1be-4163a6 [facility] nn 90df66 2014-05-23 2014-05-23 Unknown nullFlavo Comprehensi 73c1 eeaa-3 Memoria 19:16:00 19:16:00 r ve Heart ed9-45d6-b l Care PA 8fa-d59e4f [facility] nn aad25b 2014-05-23 2014-05-23 Unknown nullFlavo Comprehensi e9b0 f3a1-2 Memoria 19:16:00 19:16:00 r ve Heart d0f-4o34-o l Care PA r3m-6q2529 [facility] nn 47c2de 2014-05-23 2014-05-23 Unknown nullFlavo Comprehensi 7a31 3e34-e Memoria 19:16:00 19:16:00 r ve Heart 400-4932-8 l Care PA c33-8vf48i [facility] nn c8ac2b 2014-05-23 2014-05-23 Outpatient Comprehen Comprehensi 3 96154 [facility]Clinic 14:16:00 14:16:00 [facility] PA Care PA 2014-05-23 2014-05-23 Outpatient Comprehen Comprehensi 3 70070 eClinic 14:16:00 14:16:00 sive ve Heart [facility] Heart Care PA Care PA 2014-05-17 2014-05-17 Unknown nullFlavo Comprehensi a5b0 f607-3 Memoria 21:48:00 21:48:00 r ve Heart 67b-46a1-b l Care PA 35e-0aq079 [facility] nn 97634c 2014-05-17 2014-05-17 Unknown nullFlavo Comprehensi d21e b799-d Memoria 21:48:00 21:48:00 r ve Heart 02c-46f3-b l Care PA [id number] Haylee nn [id number] 2014-05-17 2014-05-17 Unknown nullFlavo Comprehensi 1406 3a4a-3 Memoria 21:48:00 21:48:00 r ve Heart 2fc-4b75-9 l Care PA 420-ddae8d Haylee nn 54d99f 2014-05-17 2014-05-17 Unknown nullFlavo Comprehensi 07b7 b3a0-6 Memoria 21:48:00 21:48:00 r ve Heart 248-4dae-9 l Care PA [id number] Haylee nn b14df5 2014-05-17 2014-05-17 Unknown nullFlavo Comprehensi 2fef 663f-9 Memoria 21:48:00 21:48:00 r ve Heart 159-4851-b l Care PA [id number] Haylee nn [id number] 2014-05-17 2014-05-17 Unknown nullFlavo Comprehensi 32c3 f66c-7 Memoria 21:48:00 21:48:00 r ve Heart 0y2-199z-6 l Care PA [id number] Haylee nn [id number] 2014-05-17 2014-05-17 Unknown nullFlavo Comprehensi 11d9 59a5-4 Memoria 21:48:00 21:48:00 r ve Heart l7s-26o7-0 l Care PA [id number] Haylee nn 0273ea 2014-05-17 2014-05-17 Unknown nullFlavo Comprehensi 2fef 663f-9 Memoria 21:48:00 21:48:00 r ve Heart 159-4851-b l Care PA [id number] Haylee nn [id number] 2014-05-17 2014-05-17 Unknown nullFlavo Comprehensi a5b0 f607-3 Memoria 21:48:00 21:48:00 r ve Heart 67b-46a1-b l Care PA [id number]-1wj190 Haylee nn [id number] 2014-05-17 2014-05-17 Unknown nullFlavo Comprehensi d21e b799-d Memoria 21:48:00 21:48:00 r ve Heart 02c-46f3-b l Care PA 175-36a0a2 Haylee nn 1si042 2014-05-17 2014-05-17 Unknown nullFlavo Comprehensi 11d9 59a5-4 Memoria 21:48:00 21:48:00 r ve Heart y5u-04q6-4 l Care PA [id number]-[id number] [facility] nn 0273ea 2014-05-17 2014-05-17 Unknown nullFlavo Comprehensi 32c3 f66c-7 Memoria 21:48:00 21:48:00 r ve Heart 4d6-903f-2 l Care PA [id number]-[id number] [facility] nn 618b5a 2014-05-17 2014-05-17 Unknown nullFlavo Comprehensi 1406 3a4a-3 Memoria 21:48:00 21:48:00 r ve Heart 2fc-4b75-9 l Care PA 420-ddae8d [facility] nn 54d99f 2014-05-17 2014-05-17 Unknown nullFlavo Comprehensi 07b7 b3a0-6 Memoria 21:48:00 21:48:00 r ve Heart 248-4dae-9 l Care PA [id number] [facility] nn b14df5 2014-05-17 2014-05-17 Unknown nullFlavo Comprehensi 2fef 663f-9 Memoria 21:48:00 21:48:00 r ve Heart 159-4851-b l Care PA [id number] [facility] nn [id number] 2014-05-17 2014-05-17 Unknown nullFlavo Comprehensi a5b0 f607-3 Memoria 21:48:00 21:48:00 r ve Heart 67b-46a1-b l Care PA [id number]-[id number] [facility] nn 91912l 2014-05-17 2014-05-17 Unknown nullFlavo Comprehensi d21e b799-d Memoria 21:48:00 21:48:00 r ve Heart 02c-46f3-b l Care PA 175-36a0a2 [facility] nn 2nt271 2014-05-17 2014-05-17 Unknown nullFlavo Comprehensi 11d9 59a5-4 Memoria 21:48:00 21:48:00 r ve Heart m9r-50c7-6 l Care PA [id number] [facility] nn 0273ea 2014-05-17 2014-05-17 Unknown nullFlavo Comprehensi 32c3 f66c-7 Memoria 21:48:00 21:48:00 r ve Heart 2y5-283i-5 l Care PA [id number]-[id number] Haylee nn 618b5a 2014-05-17 2014-05-17 Unknown nullFlavo Comprehensi 1406 3a4a-3 Memoria 21:48:00 21:48:00 r ve Heart 2fc-4b75-9 l Care PA 420-ddae8d Haylee nn 54d99f 2014-05-17 2014-05-17 Unknown nullFlavo Comprehensi 07b7 b3a0-6 Memoria 21:48:00 21:48:00 r ve Heart 248-4dae-9 l Care PA [id number]-[id number] [facility] nn b14df5 2014-05-17 2014-05-17 Unknown nullFlavo Comprehensi 2c7c 6ec7-a Memoria 20:48:00 20:48:00 r ve Heart 305-4ab5-b l Care PA [id number]-994ff3 [facility] nn [id number] 1163-09-04 2014-05-17 Unknown nullFlavo Comprehensi d377 bb7a-0 Memoria 20:48:00 20:48:00 r ve Heart 73e-495b-8 l Care PA [id number] [facility] nn 084807 1375-09-04 2014-05-17 Unknown nullFlavo Comprehensi 0345 b909-e Memoria 20:48:00 20:48:00 r ve Heart 235-4652-a l Care PA [id number] [facility] nn 9la410 2014-05-17 2014-05-17 Unknown nullFlavo Comprehensi 2565 1d58-6 Memoria 20:48:00 20:48:00 r ve Heart 62f-4c35-a l Care PA [id number] [facility] nn [id number] 2014-05-17 2014-05-17 Unknown nullFlavo Comprehensi dfac 501a-7 Memoria 20:48:00 20:48:00 r ve Heart 034-442a-b l Care PA [id number] [facility] nn 02040w 2014-05-17 2014-05-17 Unknown nullFlavo Comprehensi cd46 c474-8 Memoria 20:48:00 20:48:00 r ve Heart 542-473d-b l Care PA [id number] Haylee nn 38ca95 2014-05-17 2014-05-17 Unknown nullFlavo Comprehensi 8181 ef5f-e Memoria 20:48:00 20:48:00 r ve Heart 1i8-5fpw-f l Care PA 304-481daa Haylee nn d110cb 2014-05-17 2014-05-17 Unknown nullFlavo Comprehensi d537 e4a0-5 Memoria 20:48:00 20:48:00 r ve Heart 102-481a-9 l Care PA [id number]-hza287 Haylee nn [id number] 2014-05-17 2014-05-17 Unknown nullFlavo Comprehensi f7a0 bc45-f Memoria 20:48:00 20:48:00 r ve Heart 604-4e2c-8 l Care PA 221-532fdd Haylee nn 15ea4f 2014-05-17 2014-05-17 Unknown nullFlavo Comprehensi 8253 e9d7-9 Memoria 20:48:00 20:48:00 r ve Heart 5v4-5f0h-2 l Care PA [id number] Haylee nn 5e7d66 2014-05-17 2014-05-17 Unknown nullFlavo Comprehensi 03c9 9e7d-6 Memoria 20:48:00 20:48:00 r ve Heart 5eb-4f1d-8 l Care PA [id number] Haylee nn 65n022 2014-05-17 2014-05-17 Unknown nullFlavo Comprehensi 99f9 2897-a Memoria 20:48:00 20:48:00 r ve Heart s3e-8902-0 l Care PA 950-8d1b21 Haylee nn 69953u 2014-05-17 2014-05-17 Unknown nullFlavo Comprehensi 93cf 1249-d Memoria 20:48:00 20:48:00 r ve Heart 123-49d7-8 l Care PA 46b-8b47da Haylee nn 533190 7437-09-04 2014-05-17 Unknown nullFlavo Comprehensi 72c3 9422-1 Memoria 20:48:00 20:48:00 r ve Heart bf2-4578-9 l Care PA 103-nj853d [facility] nn k1v692 2014-05-17 2014-05-17 Unknown nullFlavo Comprehensi 92ae 2d77-b [facility]oria 20:48:00 20:48:00 r ve Heart 9n5-66v1-9 l Care [facility] [id number][facility]ngjv [facility] [place] nn 62690n 2014-05-17 2014-05-17 Unknown nullFlavo Comprehensi ab58 0265-8 Memoria 20:48:00 20:48:00 r ve Heart acb-48a2-b l Care PA 20c-a7efca [facility] [place] nn aaa3db 2014-05-17 2014-05-17 Unknown nullFlavo Comprehensi 8181 ef5f-e Memoria 20:48:00 20:48:00 r ve Heart 9r1-9nrh-p l Care PA 304-481daa [facility] [place] nn d110cb 2014-05-17 2014-05-17 Unknown nullFlavo Comprehensi 2c7c 6ec7-a Memoria 20:48:00 20:48:00 r ve Heart 305-4ab5-b l Care PA 79d-994ff3 [facility] [place] nn 768990 5634-09-04 2014-05-17 Unknown nullFlavo Comprehensi d377 bb7a-0 Memoria 20:48:00 20:48:00 r ve Heart 73e-495b-8 l Care PA 049-755e72 [facility] [place] nn 791125 5274-09-04 2014-05-17 Unknown nullFlavo Comprehensi cd46 c474-8 Memoria 20:48:00 20:48:00 r ve Heart 542-473d-b l Care PA 1n4-6r8455 [facility] [place] nn 38ca95 2014-05-17 2014-05-17 Unknown nullFlavo Comprehensi 0345 b909-e Memoria 20:48:00 20:48:00 r ve Heart 235-4652-a l Care PA 274-6p1881 [facility] [place] nn 0av833 2014-05-17 2014-05-17 Unknown nullFlavo Comprehensi dfac 501a-7 Memoria 20:48:00 20:48:00 r ve Heart 034-442a-b l Care PA u49-o7ms78 [facility] [place] nn 24162h 2014-05-17 2014-05-17 Unknown nullFlavo Comprehensi 03c9 9e7d-6 Memoria 20:48:00 20:48:00 r ve Heart 5eb-4f1d-8 l Care PA p12-3wvt63 [facility] [place] nn 55i592 2014-05-17 2014-05-17 Unknown nullFlavo Comprehensi 2565 1d58-6 Memoria 20:48:00 20:48:00 r ve Heart 62f-4c35-a l Care PA 407-91e8db [facility] [place] nn c42858 2014-05-17 2014-05-17 Unknown nullFlavo Comprehensi 99f9 2897-a Memoria 20:48:00 20:48:00 r ve Heart r8y-0249-9 l Care PA 950-8d1b21 [facility] [place] nn 55320u 2014-05-17 2014-05-17 Unknown nullFlavo Comprehensi 8253 e9d7-9 Memoria 20:48:00 20:48:00 r ve Heart 0u4-8l7f-2 l Care PA 7k7-2p700x [facility] [place] nn 5e7d66 2014-05-17 2014-05-17 Unknown nullFlavo Comprehensi f7a0 bc45-f Memoria 20:48:00 20:48:00 r ve Heart 604-4e2c-8 l Care PA 221-532fdd [facility] [place] nn 15ea4f 2014-05-17 2014-05-17 Unknown nullFlavo Comprehensi 72c3 9422-1 Memoria 20:48:00 20:48:00 r ve Heart bf2-4578-9 l Care PA 103-yb736p [facility] [place] nn l4q071 2014-05-17 2014-05-17 Unknown nullFlavo Comprehensi d537 e4a0-5 Memoria 20:48:00 20:48:00 r ve Heart 102-481a-9 l Care PA o3u-ymc631 [facility] [place] nn c80277 2014-05-17 2014-05-17 Unknown nullFlavo Comprehensi 93cf 1249-d Memoria 20:48:00 20:48:00 r ve Heart 123-49d7-8 l Care PA 46b-8b47da [facility] [place] nn 198764 0936-09-04 2014-05-17 Unknown nullFlavo Comprehensi 92ae 2d77-b Memoria 20:48:00 20:48:00 r ve Heart 0j6-29p9-1 l Care PA t41-a2tnod [facility] [place] nn 25529b 2014-05-17 2014-05-17 Unknown nullFlavo Comprehensi ab58 0265-8 Memoria 20:48:00 20:48:00 r ve Heart acb-48a2-b l Care PA 20c-a7efca [facility] [place] nn aaa3db 2014-05-17 2014-05-17 Unknown nullFlavo Comprehensi 8181 ef5f-e Memoria 20:48:00 20:48:00 r ve Heart 6l9-0xhm-x l Care PA 304-481daa [facility] [place] nn d110cb 2014-05-17 2014-05-17 Unknown nullFlavo Comprehensi 2c7c 6ec7-a Memoria 20:48:00 20:48:00 r ve Heart 305-4ab5-b l Care PA 79d-994ff3 [facility] [place] nn 709917 0413-09-04 2014-05-17 Unknown nullFlavo Comprehensi d377 bb7a-0 Memoria 20:48:00 20:48:00 r ve Heart 73e-495b-8 l Care PA 049-755e72 [facility] [place] nn 294852 8786-09-04 2014-05-17 Unknown nullFlavo Comprehensi cd46 c474-8 Memoria 20:48:00 20:48:00 r ve Heart 542-473d-b l Care PA 9p3-2y1769 [facility] [place] nn 38ca95 2014-05-17 2014-05-17 Unknown nullFlavo Comprehensi 0345 b909-e Memoria 20:48:00 20:48:00 r ve Heart 235-4652-a l Care PA 274-7x8960 [facility] [place] nn 2zc978 2014-05-17 2014-05-17 Unknown nullFlavo Comprehensi dfac 501a-7 Memoria 20:48:00 20:48:00 r ve Heart 034-442a-b l Care PA c21-n3ec91 [facility] [place] nn 84050p 2014-05-17 2014-05-17 Unknown nullFlavo Comprehensi 03c9 9e7d-6 Memoria 20:48:00 20:48:00 r ve Heart 5eb-4f1d-8 l Care PA c36-1bng12 [facility] nn 11g520 2014-05-17 2014-05-17 Unknown nullFlavo Comprehensi 2565 1d58-6 Memoria 20:48:00 20:48:00 r ve Heart 62f-4c35-a l Care PA 407-91e8db [facility] nn a24576 2014-05-17 2014-05-17 Unknown nullFlavo Comprehensi 99f9 2897-a Memoria 20:48:00 20:48:00 r ve Heart q3s-0488-9 l Care PA 950-8d1b21 [place] nn 99347f 2014-05-17 2014-05-17 Unknown nullFlavo Comprehensi 8253 e9d7-9 Memoria 20:48:00 20:48:00 r ve Heart 3a0-3c8g-4 l Care PA 3y5-5f648l [facility] nn 5e7d66 2014-05-17 2014-05-17 Unknown nullFlavo Comprehensi f7a0 bc45-f Memoria 20:48:00 20:48:00 r ve Heart 604-4e2c-8 l Care PA 221-532fdd [facility] nn 15ea4f 2014-05-17 2014-05-17 Unknown nullFlavo Comprehensi 72c3 9422-1 Memoria 20:48:00 20:48:00 r ve Heart bf2-4578-9 l Care PA 103-xr244d [facility] nn r0m156 2014-05-17 2014-05-17 Unknown nullFlavo Comprehensi d537 e4a0-5 Memoria 20:48:00 20:48:00 r ve Heart 102-481a-9 l Care PA t2a-qxq190 [facility] nn u75913 2014-05-17 2014-05-17 Unknown nullFlavo Comprehensi 93cf 1249-d Memoria 20:48:00 20:48:00 r ve Heart 123-49d7-8 l Care PA 46b-8b47da [facility] nn 351821 4688-09-04 2014-05-17 Unknown nullFlavo Comprehensi 92ae 2d77-b Memoria 20:48:00 20:48:00 r ve Heart 1c3-87j2-2 l Care PA p98-g0stsb [place] nn 52952h 2014-05-17 2014-05-17 Unknown nullFlavo Comprehensi ab58 0265-8 Memoria 20:48:00 20:48:00 r ve Heart acb-48a2-b l Care PA 20c-a7efca [facility] aaa3db 2014-05-17 2014-05-17 Outpatient Comprehen Comprehensi 3 37508 eClinic 15:48:00 15:48:00 sive ve [facility] al[facility]or nd Heart Care PA Care PA 2014-05-17 2014-05-17 Outpatient Comprehen Comprehensi 3 75160 eClinic 15:48:00 15:48:00 sive ve Heart alWor nd Heart Care PA Care PA 2014-05-08 2014-05-08 Unknown nullFlavo Comprehensi 4cf6 afd5-e Memoria 20:00:00 20:00:00 r ve Heart 3de-4b37-a l Care PA 7l8-49uc02 [facility] nn bcad81 2014-05-08 2014-05-08 Unknown nullFlavo Comprehensi acd7 b62a-7 Memoria 20:00:00 20:00:00 r ve Heart 45a-47bf-8 l Care PA 2o8-ler263 [place] nn 063000 3264-08-26 2014-05-08 Unknown nullFlavo Comprehensi e768 626d-c Memoria 20:00:00 20:00:00 r ve Heart 1d3-309w-l l Care PA 859-2d38be [facility] nn c3cda8 2014-05-08 2014-05-08 Unknown nullFlavo Comprehensi 2bb9 b2d4-0 Memoria 20:00:00 20:00:00 r ve Heart 891-49d6-9 l Care PA 6eb-tg150w [place] nn 219912 8220-08-26 2014-05-08 Unknown nullFlavo Comprehensi 673b 4764-c Memoria 20:00:00 20:00:00 r ve Heart i71-1i8k-1 l Care PA p36-pw9vqg [facility] nn a010ae 2014-05-08 2014-05-08 Unknown nullFlavo Comprehensi 7a56 31c7-8 Memoria 20:00:00 20:00:00 r ve Heart 0d7-5h8n-3 l Care PA 646-86579x [facility] nn f55a91 2014-05-08 2014-05-08 Unknown nullFlavo Comprehensi a507 062e-8 Memoria 20:00:00 20:00:00 r ve Heart 333-475a-9 l Care PA 2y5-97tow1 [facility] nn 1m7741 2014-05-08 2014-05-08 Unknown nullFlavo Comprehensi 673b 4764-c Memoria 20:00:00 20:00:00 r ve Heart y58-2j7b-8 l Care PA f22-ck9qdj [facility] nn a010ae 2014-05-08 2014-05-08 Unknown nullFlavo Comprehensi 4cf6 afd5-e Memoria 20:00:00 20:00:00 r ve Heart 3de-4b37-a l Care PA 9u1-82ti62 [facility] nn bcad81 2014-05-08 2014-05-08 Unknown nullFlavo Comprehensi acd7 b62a-7 Memoria 20:00:00 20:00:00 r ve Heart 45a-47bf-8 l Care PA 5c5-gbu468 [place] nn 027089 4387-08-26 2014-05-08 Unknown nullFlavo Comprehensi a507 062e-8 Memoria 20:00:00 20:00:00 r ve Heart 333-475a-9 l Care PA 9h1-47tun2 [facility] nn 4w5909 2014-05-08 2014-05-08 Unknown nullFlavo Comprehensi 7a56 31c7-8 Memoria 20:00:00 20:00:00 r ve Heart 5x3-6q7d-9 l Care PA 646-35031w [facility] nn f55a91 2014-05-08 2014-05-08 Unknown nullFlavo Comprehensi e768 626d-c Memoria 20:00:00 20:00:00 r ve Heart 3b0-657d-r l Care PA 859-2d38be [facility] nn c3cda8 2014-05-08 2014-05-08 Unknown nullFlavo Comprehensi 2bb9 b2d4-0 Memoria 20:00:00 20:00:00 r ve Heart 891-49d6-9 l Care PA 6eb-le289o [facility] [place] nn 017388 4310-08-26 2014-05-08 Unknown nullFlavo Comprehensi 673b 4764-c Memoria 20:00:00 20:00:00 r ve Heart o49-0v5f-8 l Care PA v72-ft1ikx [facility] [place] nn a010ae 2014-05-08 2014-05-08 Unknown nullFlavo Comprehensi 4cf6 afd5-e Memoria 20:00:00 20:00:00 r ve Heart 3de-4b37-a l Care PA 2b8-65vj33 [facility] [place] nn bcad81 2014-05-08 2014-05-08 Unknown nullFlavo Comprehensi acd7 b62a-7 Memoria 20:00:00 20:00:00 r ve Heart 45a-47bf-8 l Care PA 1d2-yhi069 [facility] [place] nn 669770 9550-08-26 2014-05-08 Unknown nullFlavo Comprehensi a507 062e-8 Memoria 20:00:00 20:00:00 r ve Heart 333-475a-9 l Care PA 2a1-19bup6 [facility] [place] nn 5u0575 2014-05-08 2014-05-08 Unknown nullFlavo Comprehensi 7a56 31c7-8 Memoria 20:00:00 20:00:00 r ve Heart 3a9-7v0a-9 l Care PA 646-28348j [facility] [place] nn f55a91 2014-05-08 2014-05-08 Unknown nullFlavo Comprehensi e768 626d-c Memoria 20:00:00 20:00:00 r ve Heart 2h5-022f-x l Care PA 859-2d38be [facility] [place] nn c3cda8 2014-05-08 2014-05-08 Unknown nullFlavo Comprehensi 2bb9 b2d4-0 Memoria 20:00:00 20:00:00 r ve Heart 891-49d6-9 l Care PA 6eb-sr738r [facility] [place] nn 857451 3522-08-26 2014-05-08 Unknown nullFlavo Comprehensi 2d6f 8506-f Memoria 19:00:00 19:00:00 r ve Heart 2cb-4164-9 l Care PA t76-i98f72 [facility] [place] nn 2d99c8 2014-05-08 2014-05-08 Unknown nullFlavo Comprehensi 96d9 fd1b-8 Memoria 19:00:00 19:00:00 r ve Heart 880-43cd-9 l Care PA 5a5-w7sg51 [facility] nn aix813 2014-05-08 2014-05-08 Unknown nullFlavo Comprehensi 7f6b ba5e-1 Memoria 19:00:00 19:00:00 r ve Heart 38f-45d5-a l Care PA db7-5d7a56 [place] nn 5380be 2014-05-08 2014-05-08 Unknown nullFlavo Comprehensi 1ef3 cc4c-0 Memoria 19:00:00 19:00:00 r ve Heart 65c-441c-a l Care PA 898-78ab07 [facility] [place] nn 84d23e 2014-05-08 2014-05-08 Unknown nullFlavo Comprehensi f24c ba57-6 Memoria 19:00:00 19:00:00 r ve Heart v9b-7e30-5 l Care PA q37-w50d73 [facility] [place] nn r8a655 2014-05-08 2014-05-08 Unknown nullFlavo Comprehensi fba2 79e8-8 Memoria 19:00:00 19:00:00 r ve Heart 880-4582-9 l Care PA 2fe-4hi471 [facility] [place] nn 25901g 2014-05-08 2014-05-08 Unknown nullFlavo Comprehensi 1005 3944-0 Memoria 19:00:00 19:00:00 r ve Heart 352-4633-b l Care PA cc4-51cc3c [facility] [place] nn 5adca2 2014-05-08 2014-05-08 Unknown nullFlavo Comprehensi 2908 9dfd-1 Memoria 19:00:00 19:00:00 r ve Heart n82-7777-c l Care PA 366-0c2153 [facility] [place] nn zb5864 2014-05-08 2014-05-08 Unknown nullFlavo Comprehensi 1c6c 2baa-7 Memoria 19:00:00 19:00:00 r ve Heart 4af-45b7-b l Care PA 019-qa621c [facility] [place] nn 28d12d 2014-05-08 2014-05-08 Unknown nullFlavo Comprehensi 7290 2838-0 Memoria 19:00:00 19:00:00 r ve Heart p4c-63r7-g l Care PA c8y-ceg2s9 [facility] [place] nn 505702 1568-08-26 2014-05-08 Unknown nullFlavo Comprehensi 218b cd21-3 Memoria 19:00:00 19:00:00 r ve Heart eaa-4ebf-8 l Care PA 7d8-904n0h [facility] [place] nn ddf18e 2014-05-08 2014-05-08 Unknown nullFlavo Comprehensi 9f9c 82ba-1 Memoria 19:00:00 19:00:00 r ve Heart 58f-4c8e-a l Care PA 33d-9mu658 [facility] [place] nn e80e16 2014-05-08 2014-05-08 Unknown nullFlavo Comprehensi fafb e4d1-3 Memoria 19:00:00 19:00:00 r ve Heart 04e-4d20-a l Care PA 1x0-w6431v [facility] [place] nn 9dee1c 2014-05-08 2014-05-08 Unknown nullFlavo Comprehensi 0bf1 81c6-8 Memoria 19:00:00 19:00:00 r ve Heart 953-44a7-b l Care PA 5d1-d6e7o1 [facility] [place] nn b98f8e 2014-05-08 2014-05-08 Unknown nullFlavo Comprehensi e6eb 948d-6 Memoria 19:00:00 19:00:00 r ve Heart 85a-41ff-9 l Care PA x01-ovff31 [facility] [place] nn 79201s 2014-05-08 2014-05-08 Unknown nullFlavo Comprehensi 0ff0 5db3-6 Memoria 19:00:00 19:00:00 r ve Heart 1v6-9599-j l Care PA n53-6860a5 [facility] [place] nn 6s258t 2014-05-08 2014-05-08 Unknown nullFlavo Comprehensi 1005 3944-0 Memoria 19:00:00 19:00:00 r ve Heart 352-4633-b l Care PA cc4-51cc3c [facility] [place] nn 5adca2 2014-05-08 2014-05-08 Unknown nullFlavo Comprehensi 2d6f 8506-f Memoria 19:00:00 19:00:00 r ve Heart 2cb-4164-9 l Care PA f14-a70w70 [facility] nn 2d99c8 2014-05-08 2014-05-08 Unknown nullFlavo Comprehensi 96d9 fd1b-8 Memoria 19:00:00 19:00:00 r ve Heart 880-43cd-9 l Care PA 3w7-c7nz34 [facility] [place] nn enn743 2014-05-08 2014-05-08 Unknown nullFlavo Comprehensi fba2 79e8-8 Memoria 19:00:00 19:00:00 r ve Heart 880-4582-9 l Care PA 2fe-3kz222 [facility] [place] nn 04985o 2014-05-08 2014-05-08 Unknown nullFlavo Comprehensi 7f6b ba5e-1 Memoria 19:00:00 19:00:00 r ve Heart 38f-45d5-a l Care PA db7-5d7a56 [facility] [place] nn 5380be 2014-05-08 2014-05-08 Unknown nullFlavo Comprehensi f24c ba57-6 Memoria 19:00:00 19:00:00 r ve Heart f8v-5y11-2 l Care PA p17-k44o52 [facility] [place] nn v5x465 2014-05-08 2014-05-08 Unknown nullFlavo Comprehensi 218b cd21-3 Memoria 19:00:00 19:00:00 r ve Heart eaa-4ebf-8 l Care PA 2h2-516l5n [facility] [place] nn ddf18e 2014-05-08 2014-05-08 Unknown nullFlavo Comprehensi 1ef3 cc4c-0 Memoria 19:00:00 19:00:00 r ve Heart 65c-441c-a l Care PA 898-78ab07 [facility] [place] nn 84d23e 2014-05-08 2014-05-08 Unknown nullFlavo Comprehensi 9f9c 82ba-1 Memoria 19:00:00 19:00:00 r ve Heart 58f-4c8e-a l Care PA 33d-6sq808 [facility] [place] nn e80e16 2014-05-08 2014-05-08 Unknown nullFlavo Comprehensi 7290 2838-0 Memoria 19:00:00 19:00:00 r ve Heart p0u-05k7-n l Care PA r3k-qjj7i8 [place] nn 952786 7586-08-26 2014-05-08 Unknown nullFlavo Comprehensi 1c6c 2baa-7 Memoria 19:00:00 19:00:00 r ve Heart 4af-45b7-b l Care PA 019-bh805g [facility] nn 28d12d 2014-05-08 2014-05-08 Unknown nullFlavo Comprehensi 0bf1 81c6-8 Memoria 19:00:00 19:00:00 r ve Heart 953-44a7-b l Care PA 3t3-p7y9e4 [facility] nn b98f8e 2014-05-08 2014-05-08 Unknown nullFlavo Comprehensi 2908 9dfd-1 Memoria 19:00:00 19:00:00 r ve Heart u03-4116-u l Care PA 366-5g5921 [facility] nn ev5843 2014-05-08 2014-05-08 Unknown nullFlavo Comprehensi fafb e4d1-3 Memoria 19:00:00 19:00:00 r ve Heart 04e-4d20-a l Care PA 4e4-h1533j [facility] nn 9dee1c 2014-05-08 2014-05-08 Unknown nullFlavo Comprehensi e6eb 948d-6 Memoria 19:00:00 19:00:00 r ve Heart 85a-41ff-9 l Care PA p35-ehoe37 [facility] nn 61257g 2014-05-08 2014-05-08 Unknown nullFlavo Comprehensi 0ff0 5db3-6 Memoria 19:00:00 19:00:00 r ve Heart 2t4-1561-k l Care PA n71-2356p2 [facility] nn 9z686h 2014-05-08 2014-05-08 Unknown nullFlavo Comprehensi 1005 3944-0 Memoria 19:00:00 19:00:00 r ve Heart 352-4633-b l Care PA cc4-51cc3c [facility] nn 5adca2 2014-05-08 2014-05-08 Unknown nullFlavo Comprehensi 2d6f 8506-f Memoria 19:00:00 19:00:00 r ve Heart 2cb-4164-9 l Care PA g20-c44x92 [facility] nn 2d99c8 2014-05-08 2014-05-08 Unknown nullFlavo Comprehensi 96d9 fd1b-8 Memoria 19:00:00 19:00:00 r ve Heart 880-43cd-9 l Care PA 5t6-o4pe81 [facility] nn stf110 2014-05-08 2014-05-08 Unknown nullFlavo Comprehensi fba2 79e8-8 Memoria 19:00:00 19:00:00 r ve Heart 880-4582-9 l Care PA 2fe-7ht552 [facility] nn 56656u 2014-05-08 2014-05-08 Unknown nullFlavo Comprehensi 7f6b ba5e-1 Memoria 19:00:00 19:00:00 r ve Heart 38f-45d5-a l Care PA db7-5d7a56 [facility] nn 5380be 2014-05-08 2014-05-08 Unknown nullFlavo Comprehensi f24c ba57-6 Memoria 19:00:00 19:00:00 r ve Heart l1u-9b50-9 l Care PA u61-f83v32 [facility] [place] nn x0z016 2014-05-08 2014-05-08 Unknown nullFlavo Comprehensi 218b cd21-3 Memoria 19:00:00 19:00:00 r ve Heart eaa-4ebf-8 l Care PA 5a4-330c6s [facility] [place] nn ddf18e 2014-05-08 2014-05-08 Unknown nullFlavo Comprehensi 1ef3 cc4c-0 Memoria 19:00:00 19:00:00 r ve Heart 65c-441c-a l Care PA 898-78ab07 [facility] nn 84d23e 2014-05-08 2014-05-08 Unknown nullFlavo Comprehensi 9f9c 82ba-1 Memoria 19:00:00 19:00:00 r ve Heart 58f-4c8e-a l Care PA 33d-4ks606 [facility] nn e80e16 2014-05-08 2014-05-08 Unknown nullFlavo Comprehensi 7290 2838-0 Memoria 19:00:00 19:00:00 r ve Heart t7b-19u3-j l Care PA m0u-pnb4s6 [facility] nn 914501 1588-08-26 2014-05-08 Unknown nullFlavo Comprehensi 1c6c 2baa-7 Memoria 19:00:00 19:00:00 r ve Heart 4af-45b7-b l Care PA 019-ta307d [facility] nn 28d12d 2014-05-08 2014-05-08 Unknown nullFlavo Comprehensi 0bf1 81c6-8 Memoria 19:00:00 19:00:00 r ve Heart 953-44a7-b l Care PA 5x5-d2u7w7 [facility] nn b98f8e 2014-05-08 2014-05-08 Unknown nullFlavo Comprehensi 2908 9dfd-1 Memoria 19:00:00 19:00:00 r ve Heart s87-8530-v l Care PA 366-2d4318 [facility] [place] nn cj2704 2014-05-08 2014-05-08 Unknown nullFlavo Comprehensi fafb e4d1-3 Memoria 19:00:00 19:00:00 r ve Heart 04e-4d20-a l Care PA 6n2-s7507d [facility] nn 9dee1c 2014-05-08 2014-05-08 Unknown nullFlavo Comprehensi e6eb 948d-6 Memoria 19:00:00 19:00:00 r ve Heart 85a-41ff-9 l Care PA c49-tzgf92 [facility] [place] nn 55629x 2014-05-08 2014-05-08 Unknown nullFlavo Comprehensi 0ff0 5db3-6 Memoria 19:00:00 19:00:00 r ve Heart 4w2-8257-u l Care PA k54-3343n3 [facility] nn 2v864l 2014-05-08 2014-05-08 Outpatient Comprehen Comprehensi 2 75588 [facility]Clinic 14:00:00 14:00[facility] 2014-05-08 2014-05-08 Outpatient Comprehen Comprehensi 2 35260 eClinic 14:00:00 14:00:00 sive ve Heart alWor nd Heart Care PA Care PA 2014-01-08 2014-01-08 Unknown nullFlavo Comprehensi 8b2a 47e6-9 Memoria 22:00:00 22:00:00 r ve Heart 3ac-4f19-b l Care PA 96a-65b36c [facility] nn 1dfe35 2014-01-08 2014-01-08 Unknown nullFlavo Comprehensi 84d7 7d55-4 Memoria 22:00:00 22:00:00 r ve Heart j3m-70bj-1 l Care PA bd8-9ddf01 [facility] nn aa6d61 2014-01-08 2014-01-08 Unknown nullFlavo Comprehensi f5d1 d7fa-2 Memoria 22:00:00 22:00:00 r ve Heart 3q6-62t1-2 l Care PA 7v1-s50mv4 [facility] nn 101f9b 2014-01-08 2014-01-08 Unknown nullFlavo Comprehensi bce2 2080-2 Memoria 22:00:00 22:00:00 r ve Heart 870-4b94-8 l Care PA c50-ii13ex [facility] nn 76g798 2014-01-08 2014-01-08 Unknown nullFlavo Comprehensi e59c ee45-a Memoria 22:00:00 22:00:00 r ve Heart 4y4-29n3-m l Care PA 96d-ee29a7 [facility] nn 15fda4 2014-01-08 2014-01-08 Unknown nullFlavo Comprehensi 5696 5171-9 Memoria 22:00:00 22:00:00 r ve Heart 6g8-24l3-2 l Care PA 948-2i8637 [facility] nn 724a28 2014-01-08 2014-01-08 Unknown nullFlavo Comprehensi 387d 76d8-2 Memoria 22:00:00 22:00:00 r ve Heart cba-4bdd-a l Care PA 840-af7f87 [facility] nn 92h139 2014-01-08 2014-01-08 Unknown nullFlavo Comprehensi e59c ee45-a Memoria 22:00:00 22:00:00 r ve Heart 0v5-49j4-b l Care PA 96d-ee29a7 [facility] nn 15fda4 2014-01-08 2014-01-08 Unknown nullFlavo Comprehensi 8b2a 47e6-9 Memoria 22:00:00 22:00:00 r ve Heart 3ac-4f19-b l Care PA 96a-65b36c [facility] nn 1dfe35 2014-01-08 2014-01-08 Unknown nullFlavo Comprehensi 84d7 7d55-4 Memoria 22:00:00 22:00:00 r ve Heart u6a-94hu-0 l Care PA bd8-9ddf01 [facility] nn aa6d61 2014-01-08 2014-01-08 Unknown nullFlavo Comprehensi 387d 76d8-2 Memoria 22:00:00 22:00:00 r ve Heart cba-4bdd-a l Care PA 840-af7f87 [facility] nn 74r986 2014-01-08 2014-01-08 Unknown nullFlavo Comprehensi 5696 5171-9 Memoria 22:00:00 22:00:00 r ve Heart 9z5-27u1-4 l Care PA 948-9i4585 [facility] nn 724a28 2014-01-08 2014-01-08 Unknown nullFlavo Comprehensi f5d1 d7fa-2 Memoria 22:00:00 22:00:00 r ve Heart 5x9-84n6-0 l Care PA 4q4-m27ys1 [facility] nn 101f9b 2014-01-08 2014-01-08 Unknown nullFlavo Comprehensi bce2 2080-2 Memoria 22:00:00 22:00:00 r ve Heart 870-4b94-8 l Care PA k82-vj45iu [facility] nn 30u828 2014-01-08 2014-01-08 Unknown nullFlavo Comprehensi e59c ee45-a [facility] 22:00:00 22:00:00 r ve Heart 1n6-27r8-a l Care PA 96d-ee29a7 Haylee nn 15fda4 2014-01-08 2014-01-08 Unknown nullFlavo Comprehensi 8b2a 47e6-9 [facility] 22:00:00 22:00:00 r ve Heart 3ac-4f19-b l Care PA 96a-65b36c Haylee nn 1dfe35 2014-01-08 2014-01-08 Unknown nullFlavo Comprehensi 84d7 7d55-4 [facility] 22:00:00 22:00:00 r ve Heart y2y-31zq-9 l Care PA bd8-9ddf01 Haylee nn aa6d61 2014-01-08 2014-01-08 Unknown nullFlavo Comprehensi 387d 76d8-2 [facility] 22:00:00 22:00:00 r ve Heart cba-4bdd-a l Care PA 840-af7f87 Haylee nn 26v096 2014-01-08 2014-01-08 Unknown nullFlavo Comprehensi 5696 5171-9 [facility] 22:00:00 22:00:00 r ve Heart 9l4-24i7-8 l Care PA [id number] Haylee nn 724a28 2014-01-08 2014-01-08 Unknown nullFlavo Comprehensi f5d1 d7fa-2 [facility] 22:00:00 22:00:00 r ve Heart 3r8-12e3-2 l Care PA 0e7-j31hx2 Haylee nn 101f9b 2014-01-08 2014-01-08 Unknown nullFlavo Comprehensi bce2 2080-2 [facility] 22:00:00 22:00:00 r ve Heart 870-4b94-8 l Care PA v20-ny81od Haylee nn 45g138 2014-01-08 2014-01-08 Unknown nullFlavo Comprehensi 93f9 86ae-c [facility] 21:00:00 21:00:00 r ve Heart 112-4ad7-9 l Care PA c76-e8n060 Haylee nn 215aba 2014-01-08 2014-01-08 Unknown nullFlavo Comprehensi 4850 a812-9 [facility] 21:00:00 21:00:00 r ve Heart 58e-4039-8 l Care PA 9w9-g1013o Haylee nn fdba48 2014-01-08 2014-01-08 Unknown nullFlavo Comprehensi 0613 43a5-6 [facility] 21:00:00 21:00:00 r ve Heart 0c3-399m-1 l Care PA ec0-4d9a67 Haylee nn k7675i 2014-01-08 2014-01-08 Unknown nullFlavo Comprehensi 4fae 1b1d-8 [facility] 21:00:00 21:00:00 r ve Heart 0ac-425f-a l Care PA eed-4c4fdb [facility] nn 375a2b 2014-01-08 2014-01-08 Unknown nullFlavo Comprehensi 2b4c aac8-a [facility] 21:00:00 21:00:00 r ve Heart l0g-3628-7 l Care PA 824-1c42c7 [facility] nn e7ba6b 2014-01-08 2014-01-08 Unknown nullFlavo Comprehensi bb21 389d-f [facility] 21:00:00 21:00:00 r ve Heart d41-084j-g l Care PA 747-a1c8a1 [facility] nn ff94b0 2014-01-08 2014-01-08 Unknown nullFlavo Comprehensi abfb f2e1-7 [facility] 21:00:00 21:00:00 r ve Heart 8fe-4434-b l Care PA s0e-2c48wt [facility] nn f4w540 2014-01-08 2014-01-08 Unknown nullFlavo Comprehensi 2c42 420a-6 [facility] 21:00:00 21:00:00 r ve Heart 052-44f0-a l Care PA 4v3-0nd07h [facility] nn 2ca0cc 2014-01-08 2014-01-08 Unknown nullFlavo Comprehensi e64d 7245-1 [facility] 21:00:00 21:00:00 r ve Heart 621-415b-b l Care PA 4c9-81q8z9 [facility] nn 171884 1175-04-28 2014-01-08 Unknown nullFlavo Comprehensi 77e6 c2f5-3 [facility] 21:00:00 21:00:00 r ve Heart 59c-4ec7-a l Care PA 7u8-3z5z13 [facility] nn 638fba 2014-01-08 2014-01-08 Unknown nullFlavo Comprehensi b64e 7e3f-e [facility] 21:00:00 21:00:00 r ve Heart o92-02l1-e l Care PA 9t9-4q7dc5 [facility] nn dy8350 2014-01-08 2014-01-08 Unknown nullFlavo Comprehensi 7454 349f-d [facility] 21:00:00 21:00:00 r ve Heart 074-45d0-9 l Care PA 42a-ff7e18 Haylee nn 73fcfb 2014-01-08 2014-01-08 Unknown nullFlavo Comprehensi 1d32 a52f-4 [facility] 21:00:00 21:00:00 r ve Heart 6q9-8h88-e l Care PA fb3-61i701 [facility]lee nn 551b7e 2014-01-08 2014-01-08 Unknown nullFlavo Comprehensi 9b32 0cef-5 [facility] 21:00:00 21:00:00 r ve Heart 2y4-2y06-1 l Care PA 89f-e89cb3 [facility] nn 341225 1418-04-28 2014-01-08 Unknown nullFlavo Comprehensi 195d fbbd-5 [facility] 21:00:00 21:00:00 r ve Heart 03a-4c96-8 l Care PA 781-d6bdd2 [facility] nn 9a3d1f 2014-01-08 2014-01-08 Unknown nullFlavo Comprehensi 0c8e f5cf-3 [facility] 21:00:00 21:00:00 r ve Heart 6x8-7080-7 l Care PA f22-31uh60 [facility] nn 37512x 2014-01-08 2014-01-08 Unknown nullFlavo Comprehensi bbd0 1502-6 [facility] 21:00:00 21:00:00 r ve Heart 99e-4605-9 l Care PA yaneth-6f7e61 [facility] nn 3a02f4 2014-01-08 2014-01-08 Unknown nullFlavo Comprehensi 0613 43a5-6 [facility] 21:00:00 21:00:00 r ve Heart 0o3-762k-3 l Care PA ec0-4d9a67 [facility] nn v8640u 2014-01-08 2014-01-08 Unknown nullFlavo Comprehensi 2c42 420a-6 [facility] 21:00:00 21:00:00 r ve Heart 052-44f0-a l Care PA 5b4-7mv02u [facility]lee nn 2ca0cc 2014-01-08 2014-01-08 Unknown nullFlavo Comprehensi 93f9 86ae-c [facility] 21:00:00 21:00:00 r ve Heart 112-4ad7-9 l Care PA i25-g0f494 [facility]lee nn 215aba 2014-01-08 2014-01-08 Unknown nullFlavo Comprehensi 4850 a812-9 [facility] 21:00:00 21:00:00 r ve Heart 58e-4039-8 l Care PA 1d3-l0864d [facility]lee nn fdba48 2014-01-08 2014-01-08 Unknown nullFlavo Comprehensi abfb f2e1-7 [facility] 21:00:00 21:00:00 r ve Heart 8fe-4434-b l Care PA w9t-7w93kb [facility]lee nn e9e329 2014-01-08 2014-01-08 Unknown nullFlavo Comprehensi 4fae 1b1d-8 [facility] 21:00:00 21:00:00 r ve Heart 0ac-425f-a l Care PA eed-4c4fdb [facility]lee nn 375a2b 2014-01-08 2014-01-08 Unknown nullFlavo Comprehensi bb21 389d-f [facility] 21:00:00 21:00:00 r ve Heart f28-767q-m l Care PA 747-a1c8a1 [facility] nn ff94b0 2014-01-08 2014-01-08 Unknown nullFlavo Comprehensi 7454 349f-d [facility] 21:00:00 21:00:00 r ve Heart 074-45d0-9 l Care PA 42a-ff7e18 Haylee nn 73fcfb 2014-01-08 2014-01-08 Unknown nullFlavo Comprehensi 2b4c aac8-a [facility] 21:00:00 [facility] ve Heart q5t-7033-9 l Care PA 824-1c42c7 [facility] nn e7ba6b 2014-01-08 2014-01-08 Unknown nullFlavo Comprehensi 1d32 a52f-4 [facility] 21:00:00 21:00:00 r ve Heart 1c0-0f86-t l Care PA fb3-85d696 [facility] nn 551b7e 2014-01-08 2014-01-08 Unknown nullFlavo Comprehensi b64e 7e3f-e [facility] 21:00:00 21:00:00 r ve Heart b42-78i6-u l Care PA 1j9-0z4mg9 [facility] nn zk8839 2014-01-08 2014-01-08 Unknown nullFlavo Comprehensi 77e6 c2f5-3 [facility] 21:00:00 21:00:00 r ve Heart 59c-4ec7-a l Care PA 7r2-4t5o50 [facility] nn 638fba 2014-01-08 2014-01-08 Unknown nullFlavo Comprehensi 195d fbbd-5 [facility] 21:00:00 21:00:00 r ve Heart 03a-4c96-8 l Care PA 781-d6bdd2 [facility] nn 9a3d1f 2014-01-08 2014-01-08 Unknown nullFlavo Comprehensi e64d 7245-1 [facility] 21:00:00 21:00:00 r ve Heart 621-415b-b l Care PA 8s1-33w7l6 [facility] nn 786889 3567-04-28 2014-01-08 Unknown nullFlavo Comprehensi 9b32 0cef-5 [facility] 21:00:00 21:00:00 r ve Heart 8j6-1h01-7 l Care PA 89f-e89cb3 [facility] nn 094632 3709-04-28 2014-01-08 Unknown nullFlavo Comprehensi 0c8e f5cf-3 [facility] 21:00:00 21:00:00 r ve Heart 3h3-7337-5 l Care PA d84-99mt76 [facility] nn 11388e 2014-01-08 2014-01-08 Unknown nullFlavo Comprehensi bbd0 1502-6 [facility] 21:00:00 21:00:00 r ve Heart 99e-4605-9 l Care PA yaneth-6f7e61 [facility] nn 3a02f4 2014-01-08 2014-01-08 Unknown nullFlavo Comprehensi 0613 43a5-6 [facility] 21:00:00 21:00:00 r ve Heart 9t7-780o-3 l Care PA ec0-4d9a67 [facility] nn b9936p 2014-01-08 2014-01-08 Unknown nullFlavo Comprehensi 2c42 420a-6 [facility] 21:00:00 21:00:00 r ve Heart 052-44f0-a l Care PA 2r3-5dn64x [facility] nn 2ca0cc 2014-01-08 2014-01-08 Unknown nullFlavo Comprehensi 93f9 86ae-c [facility] 21:00:00 21:00:00 r ve Heart 112-4ad7-9 l Care PA e54-q6a446 [facility] nn 215aba 2014-01-08 2014-01-08 Unknown nullFlavo Comprehensi 4850 a812-9 [facility] 21:00:00 21:00:00 r ve Heart 58e-4039-8 l Care PA 0h6-f7386h [facility] nn fdba48 2014-01-08 2014-01-08 Unknown nullFlavo Comprehensi abfb f2e1-7 [facility] 21:00:00 21:00:00 r ve Heart 8fe-4434-b l Care PA p7x-1v14td [facility] nn d1d688 2014-01-08 2014-01-08 Unknown nullFlavo Comprehensi 4fae 1b1d-8 [facility] 21:00:00 21:00:00 r ve Heart 0ac-425f-a l Care PA eed-4c4fdb [facility] nn 375a2b 2014-01-08 2014-01-08 Unknown nullFlavo Comprehensi bb21 389d-f [facility] 21:00:00 21:00:00 r ve Heart q14-689q-j l Care PA 747-a1c8a1 [facility] nn ff94b0 2014-01-08 2014-01-08 Unknown nullFlavo Comprehensi 7454 349f-d [facility] 21:00:00 21:00:00 r ve Heart 074-45d0-9 l Care PA 42a-ff7e18 [facility] nn 73fcfb 2014-01-08 2014-01-08 Unknown nullFlavo Comprehensi 2b4c aac8-a [facility] 21:00:00 21:00:00 r ve Heart f3t-3296-5 l Care PA 824-1c42c7 [facility] nn e7ba6b 2014-01-08 2014-01-08 Unknown nullFlavo Comprehensi 1d32 a52f-4 [facility] 21:00:00 21:00:00 r ve Heart 9b4-9v98-x l Care PA fb3-16e476 [facility] nn 551b7e 2014-01-08 2014-01-08 Unknown nullFlavo Comprehensi b64e 7e3f-e [facility] 21:00:00 21:00:00 r ve Heart r28-98v3-j l Care PA 7a3-9i4ie5 [facility] nn mf3168 2014-01-08 2014-01-08 Unknown nullFlavo Comprehensi 77e6 c2f5-3 [facility] 21:00:00 21:00:00 r ve Heart 59c-4ec7-a l Care PA 1f5-1c6w56 [facility] nn 638fba 2014-01-08 2014-01-08 Unknown nullFlavo Comprehensi 195d fbbd-5 [facility] 21:00:00 21:00:00 r ve Heart 03a-4c96-8 l Care PA 781-d6bdd2 [facility] nn 9a3d1f 2014-01-08 2014-01-08 Unknown nullFlavo Comprehensi e64d 7245-1 [facility] 21:00:00 21:00:00 r ve Heart 621-415b-b l Care PA 5v4-94d7c5 [facility] nn 181097 2860-04-28 2014-01-08 Unknown nullFlavo Comprehensi 9b32 0cef-5 [facility] 21:00:00 21:00:00 r ve Heart 7r3-3o60-4 l Care PA 89f-e89cb3 [facility] nn 537165 4132-04-28 2014-01-08 Unknown nullFlavo Comprehensi 0c8e f5cf-3 [facility] 21:00:00 21:00:00 r ve Heart 7v5-1635-7 l Care PA b78-40vc23 [facility] nn 02441v 2014-01-08 2014-01-08 Unknown nullFlavo Comprehensi bbd0 1502-6 [facility] 21:00:00 21:00:00 r ve Heart 99e-4605-9 l Care PA yaneth-6f7e61 [facility] nn 3a02f4 2014-01-08 2014-01-08 Outpatient Comprehen Comprehensi 2 47081 [facility] 16:00:00 16:00:00 [facility]ive ve [facility] alWor ks Heart Care PA Care PA 2014-01-08 2014-01-08 Outpatient Comprehen Comprehensi 2 99493 [facility]inic 16:00:00 16:00:00 [facility]ive ve [facility] alWor ks Heart Care PA Care PA 2013-12-06 2013-12-06 Unknown nullFlavo Comprehensi 7af8 d5e1-6 [facility] 21:00:00 21:00:00 r ve Heart 3bc-486d-9 l Care PA 715-112360 [facility] nn 982621 0497-03-26 2013-12-06 Unknown nullFlavo Comprehensi af3b 7f7a-8 [facility] 21:00:00 21:00:00 r ve Heart 6bb-4d8e-8 l Care PA 619-a12f32 [facility] nn vt652i 2013-12-06 2013-12-06 Unknown nullFlavo Comprehensi 4ce4 0f6b-f [facility] 21:00:00 21:00:00 r ve Heart c3j-4s29-i l Care PA 29f-d8ed1f [facility] nn 201212 1235-03-26 2013-12-06 Unknown nullFlavo Comprehensi 3c5b f55a-0 [facility] 21:00:00 21:00:00 r ve Heart b72-49oc-2 l Care PA 16d-86l025 [facility] nn 7a3f45 2013-12-06 2013-12-06 Unknown nullFlavo Comprehensi 136b 2818-9 [facility] 21:00:00 21:00:00 r ve Heart 5y8-1i94-r l Care PA 29f-cd7bae [facility] nn e8a614 2013-12-06 2013-12-06 Unknown nullFlavo Comprehensi d160 61a0-b [facility] 21:00:00 21:00:00 r ve Heart 54a-4b05-9 l Care PA 385-dj130y [facility] nn 3e75fa 2013-12-06 2013-12-06 Unknown nullFlavo Comprehensi 2ed8 30ee-f [facility] 21:00:00 21:00:00 r ve Heart v3j-5458-y l Care PA 46d-deb23c [facility] nn 818fe4 2013-12-06 2013-12-06 Unknown nullFlavo Comprehensi 136b 2818-9 [facility] 21:00:00 21:00:00 r ve Heart 5l3-9n93-i l Care PA 29f-cd7bae [facility] nn l8w313 2013-12-06 2013-12-06 Unknown nullFlavo Comprehensi 7af8 d5e1-6 [facility] 21:00:00 21:00:00 r ve Heart 3bc-486d-9 l Care PA 715-631431 [facility] nn 598242 5884-03-26 2013-12-06 Unknown nullFlavo Comprehensi af3b 7f7a-8 [facility] 21:00:00 21:00:00 r ve Heart 6bb-4d8e-8 l Care PA 619-a12f32 [facility] nn bs244x 2013-12-06 2013-12-06 Unknown nullFlavo Comprehensi 2ed8 30ee-f [facility] 21:00:00 21:00:00 r ve Heart h2a-6558-z l Care PA 46d-deb23c [facility] nn 818fe4 2013-12-06 2013-12-06 Unknown nullFlavo Comprehensi d160 61a0-b [facility] 21:00:00 21:00:00 r ve Heart 54a-4b05-9 l Care PA 385-ax907v [facility] nn 3e75fa 2013-12-06 2013-12-06 Unknown nullFlavo Comprehensi 4ce4 0f6b-f [facility] 21:00:00 21:00:00 r ve Heart q2b-3c69-a l Care PA 29f-d8ed1f [facility] nn 660133 4404-03-26 2013-12-06 Unknown nullFlavo Comprehensi 3c5b f55a-0 [facility] 21:00:00 21:00:00 r ve Heart h12-14do-8 l Care PA 16d-50z436 [facility] nn 7a3f45 2013-12-06 2013-12-06 Unknown nullFlavo Comprehensi 136b 2818-9 [facility] 21:00:00 21:00:00 r ve Heart 6y0-1q17-f l Care PA 29f-cd7bae [facility] nn l8v806 2013-12-06 2013-12-06 Unknown nullFlavo Comprehensi 7af8 d5e1-6 [facility] 21:00:00 21:00:00 r ve Heart 3bc-486d-9 l Care PA 715-956843 [facility] nn 139454 6640-03-26 2013-12-06 Unknown nullFlavo Comprehensi af3b 7f7a-8 [facility] 21:00:00 21:00:00 r ve Heart 6bb-4d8e-8 l Care PA 619-a12f32 [facility] nn cn277y 2013-12-06 2013-12-06 Unknown nullFlavo Comprehensi 2ed8 30ee-f [facility] 21:00:00 21:00:00 r ve Heart u4n-3881-g l Care PA 46d-deb23c [facility] nn 818fe4 2013-12-06 2013-12-06 Unknown nullFlavo Comprehensi d160 61a0-b [facility] 21:00:00 21:00:00 r ve Heart 54a-4b05-9 l Care PA 385-er028q [facility] nn 3e75fa 2013-12-06 2013-12-06 Unknown nullFlavo Comprehensi 4ce4 0f6b-f [facility] 21:00:00 21:00:00 r ve Heart d3n-3l25-m l Care PA 29f-d8ed1f [facility] nn 904560 8414-03-26 2013-12-06 Unknown nullFlavo Comprehensi 3c5b f55a-0 [facility] 21:00:00 21:00:00 r ve Heart j50-27ki-8 l Care PA 16d-56u566 [facility] nn 7a3f45 2013-12-06 2013-12-06 Unknown nullFlavo Comprehensi cda5 99f0-9 [facility] 20:00:00 20:00:00 r ve Heart 50c-48b1-8 l Care PA i93-599630 [facility] nn 0d6ce8 2013-12-06 2013-12-06 Unknown nullFlavo Comprehensi 48ba ac32-3 [facility] 20:00:00 20:00:00 r ve Heart n28-5862-8 l Care PA 8x1-77xq9a [facility] nn 6d18f2 2013-12-06 2013-12-06 Unknown nullFlavo Comprehensi cc4d 297a-0 [facility] 20:00:00 20:00:00 r ve Heart 8r7-6c4g-w l Care PA j60-9qq510 [facility] nn 28bd97 2013-12-06 2013-12-06 Unknown nullFlavo Comprehensi 5263 1297-b [facility] 20:00:00 20:00:00 r ve Heart m45-8vw2-z l Care PA 37e-6ebbd3 [facility] nn 5c9300 2013-12-06 2013-12-06 Unknown nullFlavo Comprehensi 6004 acf8-2 [facility] 20:00:00 20:00:00 r ve Heart ef8-42f0-b l Care PA f3m-625910 [facility] nn f1a77b 2013-12-06 2013-12-06 Unknown nullFlavo Comprehensi ae7f e5a8-1 [facility] 20:00:00 20:00:00 r ve Heart 9ab-460c-8 l Care PA ce0-9ed63b [facility] nn 22728w 2013-12-06 2013-12-06 Unknown nullFlavo Comprehensi ec38 3577-f [facility] 20:00:00 20:00:00 r ve Heart 8l0-07i2-2 l Care PA x78-483769 [facility] nn ecf53a 2013-12-06 2013-12-06 Unknown nullFlavo Comprehensi f0cb dbb7-e [facility] 20:00:00 20:00:00 r ve Heart ebb-42f2-8 l Care PA x6u-uxebt0 [facility] nn 7c80f4 2013-12-06 2013-12-06 Unknown nullFlavo Comprehensi c12e c8e3-5 [facility] 20:00:00 20:00:00 r ve Heart 7ad-4721-b l Care PA 682-0c1ef1 [facility] nn a0dd49 2013-12-06 2013-12-06 Unknown nullFlavo Comprehensi 22ce 10ef-4 [facility] 20:00:00 20:00:00 r ve Heart j6a-29x5-s l Care PA y1y-0jy49w [facility] nn 830ecc 2013-12-06 2013-12-06 Unknown nullFlavo Comprehensi 2223 52b6-b [facility] 20:00:00 20:00:00 r ve Heart t79-9s41-q l Care PA e81-4w32ow [facility] nn gb3867 2013-12-06 2013-12-06 Unknown nullFlavo Comprehensi 71ac b782-3 [facility] 20:00:00 20:00:00 r ve Heart fe3-4d33-8 l Care PA 578-x4373z [facility] nn 680402 7306-03-26 2013-12-06 Unknown nullFlavo Comprehensi 26db d8d3-2 [facility] 20:00:00 20:00:00 r ve Heart bce-40e8-b l Care PA 336-f4x308 [facility] nn 15e45d 2013-12-06 2013-12-06 Unknown nullFlavo Comprehensi 4525 51e0-a [facility] 20:00:00 20:00:00 r ve Heart d8h-3598-l l Care PA ed2-1j439m [facility] nn bdc22e 2013-12-06 2013-12-06 Unknown nullFlavo Comprehensi 3adb 7634-5 [facility] 20:00:00 20:00:00 r ve Heart bf8-49f6-8 l Care PA 10c-t5f366 [facility] nn qn876w 2013-12-06 2013-12-06 Unknown nullFlavo Comprehensi 2234 d46c-3 [facility] 20:00:00 20:00:00 r ve Heart ef7-4ea6-8 l Care PA q8k-87b7j9 [facility] nn f7da09 2013-12-06 2013-12-06 Unknown nullFlavo Comprehensi 1148 1864-4 [facility] 20:00:00 20:00:00 r ve Heart 6cf-494e-9 l Care PA 079-55c2a4 [facility] nn 52196z 2013-12-06 2013-12-06 Unknown nullFlavo Comprehensi 466c bb83-1 [facility] 20:00:00 20:00:00 r ve Heart 7fe-4180-9 l Care PA z10-t813wo [facility] nn beced9 2013-12-06 2013-12-06 Unknown nullFlavo Comprehensi 5263 1297-b [facility] 20:00:00 20:00:00 r ve Heart s72-6ay6-d l Care PA 37e-6ebbd3 [facility] nn 0j1434 2013-12-06 2013-12-06 Unknown nullFlavo Comprehensi c12e c8e3-5 [facility] 20:00:00 20:00:00 r ve Heart 7ad-4721-b l Care PA 682-0c1ef1 [facility] nn a0dd49 2013-12-06 2013-12-06 Unknown nullFlavo Comprehensi cda5 99f0-9 [facility] 20:00:00 20:00:00 r ve Heart 50c-48b1-8 l Care PA z69-369683 [facility] nn 0d6ce8 2013-12-06 2013-12-06 Unknown nullFlavo Comprehensi 48ba ac32-3 [facility] 20:00:00 20:00:00 r ve Heart m98-9469-6 l Care PA 5w3-86qb5d [facility] nn 6d18f2 2013-12-06 2013-12-06 Unknown nullFlavo Comprehensi f0cb dbb7-e [facility] 20:00:00 20:00:00 r ve Heart ebb-42f2-8 l Care PA i1g-ryvdn6 [facility] nn 7c80f4 2013-12-06 2013-12-06 Unknown nullFlavo Comprehensi 6004 acf8-2 [facility] 20:00:00 20:00:00 r ve Heart ef8-42f0-b l Care PA p9o-345866 [facility] nn f1a77b 2013-12-06 2013-12-06 Unknown nullFlavo Comprehensi ec38 3577-f [facility] 20:00:00 20:00:00 r ve Heart 6w9-84h6-1 l Care PA q92-795986 [facility] nn ecf53a 2013-12-06 2013-12-06 Unknown nullFlavo Comprehensi 26db d8d3-2 [facility] 20:00:00 20:00:00 r ve Heart bce-40e8-b l Care PA 336-z6a798 [facility] nn 15e45d 2013-12-06 2013-12-06 Unknown nullFlavo Comprehensi ae7f e5a8-1 [facility] 20:00:00 20:00:00 r ve Heart 9ab-460c-8 l Care PA ce0-9ed63b [facility] nn 86690y 2013-12-06 2013-12-06 Unknown nullFlavo Comprehensi 4525 51e0-a [facility] 20:00:00 20:00:00 r ve Heart l3w-1536-e l Care PA ed2-2x233n [facility] nn bdc22e 2013-12-06 2013-12-06 Unknown nullFlavo Comprehensi 71ac b782-3 [facility] 20:00:00 20:00:00 r ve Heart fe3-4d33-8 l Care PA 578-b7952q [facility] nn 661459 2930-03-26 2013-12-06 Unknown nullFlavo Comprehensi 2223 52b6-b [facility] 20:00:00 20:00:00 r ve Heart n77-2j46-d l Care PA c52-4f50ur [facility] nn wu6234 2013-12-06 2013-12-06 Unknown nullFlavo Comprehensi cc4d 297a-0 [facility] 20:00:00 20:00:00 r ve Heart 7h3-3n8o-i l Care PA a07-3fy162 [facility] nn 28bd97 2013-12-06 2013-12-06 Unknown nullFlavo Comprehensi 2234 d46c-3 [facility] 20:00:00 20:00:00 r ve Heart ef7-4ea6-8 l Care PA q2x-20y8i2 [facility] nn f7da09 2013-12-06 2013-12-06 Unknown nullFlavo Comprehensi 22ce 10ef-4 [facility] 20:00:00 20:00:00 r ve Heart k2a-79o8-m l Care PA y0w-4wn81l [facility] nn 830ecc 2013-12-06 2013-12-06 Unknown nullFlavo Comprehensi 3adb 7634-5 [facility] 20:00:00 20:00:00 r ve Heart bf8-49f6-8 l Care PA 10c-y2z388 [facility] nn xj996q 2013-12-06 2013-12-06 Unknown nullFlavo Comprehensi 1148 1864-4 [facility] 20:00:00 20:00:00 r ve Heart 6cf-494e-9 l Care PA 079-55c2a4 [facility] nn 98007x 2013-12-06 2013-12-06 Unknown nullFlavo Comprehensi 466c bb83-1 [facility] 20:00:00 20:00:00 r ve Heart 7fe-4180-9 l Care PA s07-u260pf [facility] nn beced9 2013-12-06 2013-12-06 Unknown nullFlavo Comprehensi 5263 1297-b [facility] 20:00:00 20:00:00 r ve Heart j79-1wi5-y l Care PA 37e-6ebbd3 [facility] nn 6u5283 2013-12-06 2013-12-06 Unknown nullFlavo Comprehensi c12e c8e3-5 [facility] 20:00:00 20:00:00 r ve Heart 7ad-4721-b l Care PA 682-0c1ef1 [facility] nn a0dd49 2013-12-06 2013-12-06 Unknown nullFlavo Comprehensi cda5 99f0-9 [facility] 20:00:00 20:00:00 r ve Heart 50c-48b1-8 l Care PA d25-793475 [facility] nn 0d6ce8 2013-12-06 2013-12-06 Unknown nullFlavo Comprehensi 48ba ac32-3 [facility] 20:00:00 20:00:00 r ve Heart n39-4906-6 l Care PA 8k6-66zy2k [facility] nn 6d18f2 2013-12-06 2013-12-06 Unknown nullFlavo Comprehensi f0cb dbb7-e [facility] 20:00:00 20:00:00 r ve Heart ebb-42f2-8 l Care PA h2t-sijkp2 [facility] nn 7c80f4 2013-12-06 2013-12-06 Unknown nullFlavo Comprehensi 6004 acf8-2 [facility] 20:00:00 20:00:00 r ve Heart ef8-42f0-b l Care PA p7h-299888 [facility] nn f1a77b 2013-12-06 2013-12-06 Unknown nullFlavo Comprehensi ec38 3577-f [facility] 20:00:00 20:00:00 r ve Heart 9j1-50x7-9 l Care PA k12-704295 [facility] nn ecf53a 2013-12-06 2013-12-06 Unknown nullFlavo Comprehensi 26db d8d3-2 [facility] 20:00:00 20:00:00 r ve Heart bce-40e8-b l Care PA 336-a9b462 [facility] nn 15e45d 2013-12-06 2013-12-06 Unknown nullFlavo Comprehensi ae7f e5a8-1 [facility] 20:00:00 20:00:00 r ve Heart 9ab-460c-8 l Care PA ce0-9ed63b [facility] nn 22246b 2013-12-06 2013-12-06 Unknown nullFlavo Comprehensi 4525 51e0-a [facility] 20:00:00 20:00:00 r ve Heart j4g-6885-v l Care PA ed2-0n136e [facility] nn bdc22e 2013-12-06 2013-12-06 Unknown nullFlavo Comprehensi 71ac b782-3 [facility] 20:00:00 20:00:00 r ve Heart fe3-4d33-8 l Care PA 578-f9692h [facility] nn 688835 8766-03-26 2013-12-06 Unknown nullFlavo Comprehensi 2223 52b6-b [facility] 20:00:00 20:00:00 r ve Heart u09-6g59-x l Care PA x53-4y38yh [facility] nn nj8313 2013-12-06 2013-12-06 Unknown nullFlavo Comprehensi cc4d 297a-0 [facility] 20:00:00 20:00:00 r ve Heart 9b0-8g5u-e l Care PA r95-3gy277 [facility] nn 28bd97 2013-12-06 2013-12-06 Unknown nullFlavo Comprehensi 2234 d46c-3 [facility] 20:00:00 20:00:00 r ve Heart ef7-4ea6-8 l Care PA t1d-48p8b8 [facility] nn f7da09 2013-12-06 2013-12-06 Unknown nullFlavo Comprehensi 22ce 10ef-4 [facility] 20:00:00 20:00:00 r ve Heart h6p-33z7-h l Care PA y6z-5ex22p [facility] nn 830ecc 2013-12-06 2013-12-06 Unknown nullFlavo Comprehensi 3adb 7634-5 [facility] 20:00:00 20:00:00 r ve Heart bf8-49f6-8 l Care PA 10c-p1d206 [facility] nn af908j 2013-12-06 2013-12-06 Unknown nullFlavo Comprehensi 1148 1864-4 [facility] 20:00:00 20:00:00 r ve Heart 6cf-494e-9 l Care PA 079-55c2a4 [facility] nn 38863u 2013-12-06 2013-12-06 Unknown nullFlavo Comprehensi 466c bb83-1 [facility] 20:00:00 20:00:00 r ve Heart 7fe-4180-9 l Care PA g80-n227ol [facility] nn beced9 2013-12-06 2013-12-06 Outpatient Comprehen Comprehensi 2 97148 [facility]inic 15:00:00 15:00:00 sive ve Heart alWor nd Heart Care PA Care PA 2013-12-06 2013-12-06 Outpatient Comprehen Comprehensi 2 83956 eClinic 15:00:00 15:00:00 sive ve Heart alWor nd Heart Care PA Care PA 2013-11-10 2013-11-102013 nullFlavo Comprehensi eb5c 38c6-f [facility] 17:07:00 17:07:00 medicare r ve Heart t1q-00o6-8 l Care PA 6g8-l8i52y [facility] nn b890c0 2013-11-10 2013-11-102013 nullFlavo Comprehensi 675e b5bc-0 [facility] 17:07:00 17:07:00 medicare r ve Heart 2u6-30k8-6 l Care PA 891-d400dc [facility] nn n8a562 2013-11-10 2013-11-102013 nullFlavo Comprehensi dd33 f9e3-2 [facility] 17:07:00 17:07:00 medicare r ve Heart ecc-4125-b l Care PA 01c-941fb1 [facility] nn b7f5be 2013-11-10 2013-11-102013 nullFlavo Comprehensi 3404 2706-b [facility] 17:07:00 17:07:00 medicare r ve Heart 642-4896-8 l Care PA o98-747451 [facility] nn 1b96a9 2013-11-10 2013-11-102013 nullFlavo Comprehensi 7bd7 6b8f-6 [facility] 17:07:00 17:07:00 medicare r ve Heart z20-05p0-9 l Care PA 21f-8b85e5 [facility] nn 6dcab9 2013-11-10 2013-11-102013 nullFlavo Comprehensi 993b 2a1c-7 [facility] 17:07:00 17:07:00 medicare r ve Heart 9p0-5ck7-8 l Care PA 0ee-c9e8ad [facility] nn 19c4dd 2013-11-10 2013-11-102013 nullFlavo Comprehensi 6821 371e-9 [facility] 17:07:00 17:07:00 medicare r ve Heart 023-4ac5-8 l Care PA b08-x52767 [facility] nn 60x974 2013-11-10 2013-11-102013 nullFlavo Comprehensi 9102 0f74-1 [facility] 17:07:00 17:07:00 medicare r ve Heart 60d-4365-b l Care PA cba-2bfb6e [facility] nn 9v982v 2013-11-10 2013-11-102013 nullFlavo Comprehensi eb5c 38c6-f [facility] 17:07:00 17:07:00 medicare r ve Heart r6q-15e9-0 l Care PA 1y0-g6e16j [facility] nn b890c0 2013-11-10 2013-11-102013 nullFlavo Comprehensi 993b 2a1c-7 [facility] 17:07:00 17:07:00 medicare r ve Heart 9e9-1dj4-7 l Care PA 0ee-c9e8ad [facility] nn 19c4dd 2013-11-10 2013-11-102013 nullFlavo Comprehensi 675e b5bc-0 [facility] 17:07:00 17:07:00 medicare r ve Heart 9e2-35p2-6 l Care PA 891-d400dc [facility] nn a8b150 2013-11-10 2013-11-102013 nullFlavo Comprehensi dd33 f9e3-2 [facility] 17:07:00 17:07:00 medicare r ve Heart ecc-4125-b l Care PA 01c-941fb1 [facility] nn b7f5be 2013-11-10 2013-11-102013 nullFlavo Comprehensi 9102 0f74-1 [facility] 17:07:00 17:07:00 medicare r ve Heart 60d-4365-b l Care PA cba-2bfb6e [facility] nn 0v618z 2013-11-10 2013-11-102013 nullFlavo Comprehensi 6821 371e-9 [facility] 17:07:00 17:07:00 medicare r ve Heart 023-4ac5-8 l Care PA l56-h44286 [facility] nn 84e271 2013-11-10 2013-11-102013 nullFlavo Comprehensi 3404 2706-b [facility] 17:07:00 17:07:00 medicare r ve Heart 642-4896-8 l Care PA [id number] Haylee nn [id number] 2013-11-10 2013-11-102013 nullFlavo Comprehensi 7bd7 6b8f-6 [facility] 17:07:00 17:07:00 medicare r ve Heart h04-07u3-4 l Care PA [id number] Haylee nn 6dcab9 2013-11-10 2013-11-102013 nullFlavo Comprehensi eb5c 38c6-f [facility] 17:07:00 17:07:00 medicare r ve Heart o9y-24g3-5 l Care PA [id number] Haylee nn [id number] 2013-11-10 2013-11-102013 null[employer]avo Comprehensi 993b 2a1c-7 [facility] 17:07:00 17:07:00 medicare r ve Heart 3r1-1xm3-0 l Care PA [id number]-[id number] Hyalee nn [id number] 2013-11-10 2013-11-102013 nullFlavo Comprehensi 675e b5bc-0 [facility] 17:07:00 17:07:00 medicare r ve Heart 7v7-03o2-6 l Care PA [id number] Haylee nn [id number] 2013-11-10 2013-11-102013 nullFlavo Comprehensi dd33 f9e3-2 [facility] 17:07:00 17:07:00 medicare r ve Heart ecc-4125-b l Care PA [id number]-[id number] Haylee nn [id number] 2013-11-10 2013-11-102013 nullFlavo Comprehensi 9102 0f74-1 [facility] 17:07:00 17:07:00 medicare r ve Heart 60d-4365-b l Care PA [id number] [facility] nn [id number] 2013-11-10 2013-11-102013 nullFlavo Comprehensi 6821 371e-9 [facility]oria 17:07:00 17:07:00 medicare r ve Heart 023-4ac5-8 l Care PA [id number] [facility] nn [id number] 2013-11-10 2013-11-102013 nullFlavo Comprehensi 3404 2706-b [facility] 17:07:00 17:07:00 medicare r ve Heart 642-4896-8 l Care PA [id number] [facility] nn [id number] 2013-11-10 2013-11-102013 nullFlavo Comprehensi 7bd7 6b8f-6 [facility] 17:07:00 17:07:00 medicare r ve Heart m74-83z4-4 l Care PA [id number] [facility] nn 6dcab9 2013-11-10 2013-11-102013 nullFlavo Comprehensi 641f ea06-d [facility]oria 16:07:00 16:07:00 medicare r ve Heart 304-49af-8 l Care PA [id number] [facility] nn [id number] 2013-11-10 2013-11-102013 nullFlavo Comprehensi 7199 5c4c-b [facility] 16:07:00 16:07:00 medicare r ve Heart 329-4487-b l Care PA [id number] [facility] nn ca37a1 2013-11-10 2013-11-102013 nullFlavo Comprehensi f28e de05-c [facility] 16:07:00 16:07:00 medicare r ve Heart 3bf-4794-9 l Care PA [id number] [facility] nn 69a17c 2013-11-10 2013-11-102013 nullFlavo Comprehensi d391 fe4b-0 [facility] 16:07:00 16:07:00 medicare r ve Heart 023-4f75-8 l Care PA [id number] [facility] nn [id number] 0231-02-28 2013-11-102013 nullFlavo Comprehensi b14c 1222-3 [facility] 16:07:00 16:07:00 medicare r ve Heart 0w4-08r8-5 l Care PA [id number] [facility] nn [id number] 2013-11-10 2013-11-102013 nullFlavo Comprehensi 380c 33f0-5 [facility] 16:07:00 16:07:00 medicare r ve Heart p45-206u-5 l Care PA [id number] Haylee nn 909c5c 2013-11-10 2013-11-102013 nullFlavo Comprehensi 42b7 78de-c [facility] 16:07:00 16:07:00 medicare r ve Heart d4v-69tr-4 l Care PA [id number] [facility] nn [id number] 2013-11-10 2013-11-102013 nullFlavo Comprehensi 9b42 a7c1-e [facility] 16:07:00 16:07:00 medicare r ve Heart 3bb-4b69-a l Care PA [id number] [facility] nn [id number] 2013-11-10 2013-11-102013 nullFlavo Comprehensi 2f03 d85d-b [facility] 16:07:00 16:07:00 medicare r ve Heart 848-4fc6-b l Care PA [id number]-[id number] [facility] nn d20b8c 2013-11-10 2013-11-102013 nullFlavo Comprehensi dde1 c27c-4 [facility] 16:07:00 16:07:00 medicare r ve Heart 1z5-7534-5 l Care PA [id number]-[id number] [facility] nn [id number] 2013-11-10 2013-11-102013 nullFlavo Comprehensi a001 52ee-1 [facility] 16:07:00 16:07:00 medicare r ve Heart 035-4685-9 l Care PA [id number] [facility] nn [id number] 2013-11-10 2013-11-102013 nullFlavo Comprehensi d38b 118a-5 [facility] 16:07:00 16:07:00 medicare r ve Heart j95-6910-2 l Care PA [id number] [facility] nn 44f6c1 2013-11-10 2013-11-102013 nullFlavo Comprehensi 9c95 1a55-3 [facility] 16:07:00 16:07:00 medicare r ve Heart g31-2288-5 l Care PA [id number] [facility] nn [id number] 2013-11-10 2013-11-102013 nullFlavo Comprehensi 8353 27d5-c [facility] 16:07:00 16:07:00 medicare r ve Heart 9q8-95d7-x l Care PA [id number] [facility] nn [id number] 4082-02-28 2013-11-102013 nullFlavo Comprehensi a1b0 be23-4 [facility] 16:07:00 16:07:00 medicare r ve Heart acc-4a0d-8 l Care PA [id number]-[id number] [facility] nn [id number] 2013-11-10 2013-11-102013 nullFlavo Comprehensi 39a1 f91d-a [facility] 16:07:00 16:07:00 medicare r ve Heart 144-4c80-a l Care PA [id number] [facility] nn [id number] 2013-11-10 2013-11-102013 nullFlavo Comprehensi 046f cefa-2 [facility] 16:07:00 16:07:00 medicare r ve Heart o52-9p14-h l Care PA [id number]-2bcd59 [facility] nn ad66fd 2013-11-10 2013-11-102013 nullFlavo Comprehensi 7733 177a-4 [facility] 16:07:00 16:07:00 medicare r ve Heart 02b-4d10-9 l Care PA [id number]-a34fa4 [facility] nn 7ca7dd 2013-11-10 2013-11-102013 nullFlavo Comprehensi d391 fe4b-0 [facility] 16:07:00 16:07:00 medicare r ve Heart 023-4f75-8 l Care PA [id number]-[id number] [facility] nn [id number] 8728-02-28 2013-11-102013 nullFlavo Comprehensi 2f03 d85d-b [facility] 16:07:00 16:07:00 medicare r ve Heart 848-4fc6-b l Care PA [id number]-[id number] [facility] nn d20b8c 2013-11-10 2013-11-102013 nullFlavo Comprehensi 641f ea06-d [facility] 16:07:00 16:07:00 medicare r ve Heart 304-49af-8 l Care PA [id number] [facility] nn [id number] 2013-11-10 2013-11-102013 nullFlavo Comprehensi 7199 5c4c-b [facility] 16:07:00 16:07:00 medicare r ve Heart 329-4487-b l Care PA [id number]-f51b91 [facility] nn ca37a1 2013-11-10 2013-11-102013 nullFlavo Comprehensi 9b42 a7c1-e Memoria 16:07:00 16:07:00 medicare r ve Heart 3bb-4b69-a l Care PA 9m7-40y2vp [facility] nn e9z987 2013-11-10 2013-11-102013 nullFlavo Comprehensi b14c 1222-3 Memoria 16:07:00 16:07:00 medicare r ve Heart 2b2-40x5-6 l Care PA 723-ea7d69 [facility] d701d8 2013-11-10 2013-11-102013 nullFlavo Comprehensi 42b7 78de-c Memoria 16:07:00 16:07:00 medicare r ve Heart y6u-31fq-2 l Care PA 7fe-0c89b0 [facility] x6169l 2013-11-10 2013-11-102013 nullFlavo Comprehensi 9c95 1a55-3 Memoria 16:07:00 16:07:00 medicare r ve Heart t25-3063-5 l Care PA 5l4-444213 [facility] nn 50622w 2013-11-10 2013-11-102013 nullFlavo Comprehensi 380c 33f0-5 Memoria 16:07:00 16:07:00 medicare r ve Heart e04-009n-6 l Care PA g3b-38i474 [facility] nn 909c5c 2013-11-10 2013-11-102013 nullFlavo Comprehensi 8353 27d5-c Memoria 16:07:00 16:07:00 medicare r ve Heart 4h0-42n4-z l Care PA af5-0d6c70 [facility] nn 530349 5476-02-28 2013-11-102013 nullFlavo Comprehensi d38b 118a-5 Memoria 16:07:00 16:07:00 medicare r ve Heart l30-1288-7 l Care PA de4-7fb27f [facility] nn 44f6c1 2013-11-10 2013-11-102013 nullFlavo Comprehensi a001 52ee-1 Memoria 16:07:00 16:07:00 medicare r ve Heart 035-4685-9 l Care PA 674-50ff46 [facility] nn 9e1d59 2013-11-10 2013-11-102013 nullFlavo Comprehensi f28e de05-c Memoria 16:07:00 16:07:00 medicare r ve Heart 3bf-4794-9 l Care PA x74-1q4896 [facility] nn 69a17c 2013-11-10 2013-11-102013 nullFlavo Comprehensi 39a1 f91d-a Memoria 16:07:00 16:07:00 medicare r ve Heart 144-4c80-a l Care PA dd5-2bdbc3 [facility] nn o60410 2013-11-10 2013-11-102013 nullFlavo Comprehensi dde1 c27c-4 Memoria 16:07:00 16:07:00 medicare r ve Heart 8n7-1424-9 l Care PA 4c0-wg961o [facility] nn 8h948y 2013-11-10 2013-11-102013 nullFlavo Comprehensi a1b0 be23-4 Memoria 16:07:00 16:07:00 medicare r ve Heart acc-4a0d-8 l Care PA s8z-2971rv [facility] nn 7f690m 2013-11-10 2013-11-102013 nullFlavo Comprehensi 046f cefa-2 Memoria 16:07:00 16:07:00 medicare r ve Heart g60-8h86-k l Care PA 55b-2bcd59 [facility] nn ad66fd 2013-11-10 2013-11-102013 nullFlavo Comprehensi 7733 177a-4 Memoria 16:07:00 16:07:00 medicare r ve Heart 02b-4d10-9 l Care PA 0dc-a34fa4 [facility] nn 7ca7dd 2013-11-10 2013-11-102013 nullFlavo Comprehensi d391 fe4b-0 Memoria 16:07:00 16:07:00 medicare r ve Heart 023-4f75-8 l Care PA 07c-481e44 [facility] nn 611839 2799-02-28 2013-11-102013 nullFlavo Comprehensi 2f03 d85d-b Memoria 16:07:00 16:07:00 medicare r ve Heart 848-4fc6-b l Care PA 34d-760ef0 [facility] nn d20b8c 2013-11-10 2013-11-102013 nullFlavo Comprehensi 641f ea06-d Memoria 16:07:00 16:07:00 medicare r ve Heart 304-49af-8 l Care PA 3b9-862g1r [facility] nn 42ee64 2013-11-10 2013-11-102013 nullFlavo Comprehensi 7199 5c4c-b [facility]oria 16:07:00 16:07:00 medicare r ve Heart 329-4487-b l Care PA fed-f51b91 [facility] nn ca37a1 2013-11-10 2013-11-102013 nullFlavo Comprehensi 9b42 a7c1-e Memoria 16:07:00 16:07:00 medicare r ve Heart 3bb-4b69-a l Care PA 7u1-17x1tg [facility] nn q5i849 2013-11-10 2013-11-102013 nullFlavo Comprehensi b14c 1222-3 Memoria 16:07:00 16:07:00 medicare r ve Heart 5j1-39i1-7 l Care PA 723-ea7d69 [facility] nn d701d8 2013-11-10 2013-11-102013 nullFlavo Comprehensi 42b7 78de-c Memoria 16:07:00 16:07:00 medicare r ve Heart a5z-51tb-8 l Care PA 7fe-0c89b0 [facility] nn t6938d 2013-11-10 2013-11-102013 nullFlavo Comprehensi 9c95 1a55-3 Memoria 16:07:00 16:07:00 medicare r ve Heart p29-0454-1 l Care PA 8n4-971932 [facility] nn 80075y 2013-11-10 2013-11-102013 nullFlavo Comprehensi 380c 33f0-5 Memoria 16:07:00 16:07:00 medicare r ve Heart t70-582e-2 l Care PA n9z-13g014 [facility] nn 909c5c 2013-11-10 2013-11-102013 nullFlavo Comprehensi 8353 27d5-c Memoria 16:07:00 16:07:00 medicare r ve Heart 7r9-65q5-g l Care PA af5-0d6c70 [facility] [place] 285326 7537-02-28 2013-11-102013 nullFlavo Comprehensi d38b 118a-5 Memoria 16:07:00 16:07:00 medicare r ve Heart r95-7941-4 l Care PA de4-7fb27f [facility] nn 44f6c1 2013-11-10 2013-11-102013 nullFlavo Comprehensi a001 52ee-1 [facility] 16:07:00 16:07:00 medicare r ve Heart 035-4685-9 l Care PA 674-50ff46 [facility] nn 9e1d59 2013-11-10 2013-11-102013 nullFlavo Comprehensi f28e de05-c Memoria 16:07:00 16:07:00 medicare r ve Heart 3bf-4794-9 l Care PA n69-4o5102 [facility] nn 69a17c 2013-11-10 2013-11-102013 nullFlavo Comprehensi 39a1 f91d-a Memoria 16:07:00 16:07:00 medicare r ve Heart 144-4c80-a l Care PA dd5-2bdbc3 [facility] nn z68675 2013-11-10 2013-11-102013 nullFlavo Comprehensi dde1 c27c-4 Memoria 16:07:00 16:07:00 medicare r ve Heart 4t6-2511-4 l Care PA 0g9-pb813a [facility] nn 5v582g 2013-11-10 2013-11-102013 nullFlavo Comprehensi a1b0 be23-4 Memoria 16:07:00 16:07:00 medicare r ve Heart acc-4a0d-8 l Care PA x1r-5635dr [facility] nn 9y460x 2013-11-10 2013-11-102013 nullFlavo Comprehensi 046f cefa-2 Memoria 16:07:00 16:07:00 medicare r ve Heart o55-5z34-i l Care PA 55b-2bcd59 [facility] nn ad66fd 2013-11-10 2013-11-102013 nullFlavo Comprehensi 7733 177a-4 Memoria 16:07:00 16:07:00 medicare r ve Heart 02b-4d10-9 l Care PA 0dc-a34fa4 [facility] nn 7ca7dd 2013-11-10 2013-11-10 Outpatient Comprehen Comprehensi [facility]142 [facility]inic 11:07:00 11:07:00 sive ve Heart alWor nd Heart Care PA Care PA 2013-11-10 2013-11-10 Outpatient Comprehen Comprehensi 2 50445 [facility]Clinic 11:07:00 11:07:00 sive ve Heart alWor nd Heart Care PA Care PA 2013-10-05 2013-10-05 Unknown nullFlavo Comprehensi 4575 44c6-9 Memoria 21:28:00 21:28:00 r ve Heart n5r-7us8-j l Care PA m39-4809ka [facility] nn 3ff8c3 2013-10-05 2013-10-05 Unknown nullFlavo Comprehensi 16c9 d682-e Memoria 21:28:00 21:28:00 r ve Heart fac-47e5-b l Care PA 710-c618a8 [facility] nn 288ba0 2013-10-05 2013-10-05 Unknown nullFlavo Comprehensi e853 1680-0 Memoria 21:28:00 21:28:00 r ve Heart o1x-77tl-6 l Care PA 26f-b885c9 [facility] nn 47239a 2013-10-05 2013-10-05 Unknown nullFlavo Comprehensi 6890 f0de-f Memoria 21:28:00 21:28:00 r ve Heart ea4-4c8b-a l Care PA r64-v31qko [facility] nn 0888bc 2013-10-05 2013-10-05 Unknown nullFlavo Comprehensi e99e d83d-f Memoria 21:28:00 21:28:00 r ve Heart 863-4845-9 l Care PA 745-12a97f [facility] nn 081fbe 2013-10-05 2013-10-05 Unknown nullFlavo Comprehensi 793a 01e3-0 Memoria 21:28:00 21:28:00 r ve Heart f4o-2340-2 l Care PA 61b-62a74b [facility] nn 5cca42 2013-10-05 2013-10-05 Unknown nullFlavo Comprehensi 7e26 daf6-9 Memoria 21:28:00 21:28:00 r ve Heart o9h-5d79-b l Care PA 52e-39l447 [facility] nn 9a58a4 2013-10-05 2013-10-05 Unknown nullFlavo Comprehensi 60cf e0b3-f Memoria 21:28:00 21:28:00 r ve Heart t5b-0jcm-8 l Care PA 043-412252 [facility] nn 555627 0594-01-23 2013-10-05 Unknown nullFlavo Comprehensi fda5 a9f9-5 Memoria 21:28:00 21:28:00 r ve Heart 8a9-063w-k l Care PA ac6-a8c9dd [facility] nn 03o313 2013-10-05 2013-10-05 Unknown nullFlavo Comprehensi 4575 44c6-9 Memoria :28:00 21:28:00 r ve Heart m9d-1ey5-u l Care PA h78-6069uz [facility] nn 3ff8c3 2013-10-05 2013-10-05 Unknown nullFlavo Comprehensi 16c9 d682-e Memoria :28:00 21:28:00 r ve Heart fac-47e5-b l Care PA 710-c618a8 [facility] nn 288ba0 2013-10-05 2013-10-05 Unknown nullFlavo Comprehensi 7e26 daf6-9 Memoria :28:00 21:28:00 r ve Heart d9y-2u54-f l Care PA 52e-05h413 [facility] nn 9a58a4 2013-10-05 2013-10-05 Unknown nullFlavo Comprehensi e853 1680-0 Memoria 21:28:00 21:28:00 r ve Heart b9v-22fc-9 l Care PA 26f-b885c9 [facility] nn 22896s 2013-10-05 2013-10-05 Unknown nullFlavo Comprehensi 6890 f0de-f Memoria :28:00 21:28:00 r ve Heart ea4-4c8b-a l Care PA q86-w37khi [facility] nn 0888bc 2013-10-05 2013-10-05 Unknown nullFlavo Comprehensi fda5 a9f9-5 Memoria 21:28:00 21:28:00 r ve Heart 7l1-481g-g l Care PA ac6-a8c9dd [facility] nn 88h410 2013-10-05 2013-10-05 Unknown nullFlavo Comprehensi 60cf e0b3-f Memoria 21:28:00 21:28:00 r ve Heart f0p-1hyy-4 l Care PA 043-078066 [facility] nn 430205 1407-01-23 2013-10-05 Unknown nullFlavo Comprehensi e99e d83d-f Memoria 21:28:00 21:28:00 r ve Heart 863-4845-9 l Care PA 745-12a97f [facility] nn 081fbe 2013-10-05 2013-10-05 Unknown nullFlavo Comprehensi 793a 01e3-0 Memoria 21:28:00 21:28:00 r ve Heart c2u-4020-8 l Care PA 61b-62a74b [facility] nn 5cca42 2013-10-05 2013-10-05 Unknown nullFlavo Comprehensi 4575 44c6-9 Memoria 21:28:00 21:28:00 r ve Heart h3d-5xb6-a l Care PA j96-0865oh [facility] nn 3ff8c3 2013-10-05 2013-10-05 Unknown nullFlavo Comprehensi 16c9 d682-e Memoria 21:28:00 21:28:00 r ve Heart fac-47e5-b l Care PA 710-c618a8 [facility] nn 288ba0 2013-10-05 2013-10-05 Unknown nullFlavo Comprehensi 7e26 daf6-9 Memoria 21:28:00 21:28:00 r ve Heart v3q-1d25-n l Care PA 52e-42m267 [facility] nn 9a58a4 2013-10-05 2013-10-05 Unknown nullFlavo Comprehensi e853 1680-0 Memoria 21:28:00 21:28:00 r ve Heart w0m-24lg-9 l Care PA 26f-b885c9 [facility] nn 45002w 2013-10-05 2013-10-05 Unknown nullFlavo Comprehensi 6890 f0de-f Memoria 21:28:00 21:28:00 r ve Heart ea4-4c8b-a l Care PA h46-a65yft [facility] nn 0888bc 2013-10-05 2013-10-05 Unknown nullFlavo Comprehensi fda5 a9f9-5 Memoria 21:28:00 21:28:00 r ve Heart 2m2-780x-d l Care PA ac6-a8c9dd [facility] nn 40v148 2013-10-05 2013-10-05 Unknown nullFlavo Comprehensi 60cf e0b3-f Memoria 21:28:00 21:28:00 r ve Heart n8p-0hzh-0 l Care PA 043-630800 [facility] nn 725399 8832-01-23 2013-10-05 Unknown nullFlavo Comprehensi e99e d83d-f Memoria 21:28:00 21:28:00 r ve Heart 863-4845-9 l Care PA 745-12a97f [facility] nn 081fbe 2013-10-05 2013-10-05 Unknown nullFlavo Comprehensi 793a 01e3-0 Memoria 21:28:00 21:28:00 r ve Heart b9x-0316-6 l Care PA 61b-62a74b [facility] nn 5cca42 2013-10-05 2013-10-05 Unknown nullFlavo Comprehensi 18da 623d-3 Memoria 20:28:00 20:28:00 r ve Heart j8g-4vc0-t l Care PA 59b-026ca2 [facility] nn av588b 2013-10-05 2013-10-05 Unknown nullFlavo Comprehensi fe5c 38e9-7 Memoria 20:28:00 20:28:00 r ve Heart 707-4c9d-b l Care PA 60a-f87d0d [facility] nn fdee6a 2013-10-05 2013-10-05 Unknown nullFlavo Comprehensi eed9 aff3-0 Memoria 20:28:00 20:28:00 r ve Heart 953-4631-b l Care PA 602-e3fc16 [facility] nn 99df7b 2013-10-05 2013-10-05 Unknown nullFlavo Comprehensi 2a0e ae58-0 Memoria 20:28:00 20:28:00 r ve Heart l92-2n0c-c l Care PA r49-w870s9 [facility] nn b27a73 2013-10-05 2013-10-05 Unknown nullFlavo Comprehensi 7826 816e-e Memoria 20:28:00 20:28:00 r ve Heart 3j0-22bf-d l Care PA 7y5-7857n0 [facility] nn bb13bc 2013-10-05 2013-10-05 Unknown nullFlavo Comprehensi 3519 9c48-9 Memoria 20:28:00 20:28:00 r ve Heart 095-4caf-b l Care PA 09b-b0dfd9 [facility] nn 825392 6898-01-23 2013-10-05 Unknown nullFlavo Comprehensi a824 4208-6 Memoria 20:28:00 20:28:00 r ve Heart 556-422d-b l Care PA 023-k7b253 [facility] nn 1wp808 2013-10-05 2013-10-05 Unknown nullFlavo Comprehensi 897d fba9-c Memoria 20:28:00 20:28:00 r ve Heart efa-427e-b l Care PA 6y3-9a7070 [facility] nn 5c1f4a 2013-10-05 2013-10-05 Unknown nullFlavo Comprehensi cfc3 c5b2-1 [facility]oria 20:28:00 20:28:00 r ve Heart 215-4597-9 l Care PA 910-k73345 [facility] nn dda74a 2013-10-05 2013-10-05 Unknown nullFlavo Comprehensi c3a1 e75c-1 [facility]oria 20:28:00 20:28:00 r ve Heart 891-4492-a l Care PA beb-451d0d [facility] nn j2023y 2013-10-05 2013-10-05 Unknown nullFlavo Comprehensi 11dd f136-0 Memoria 20:28:00 20:28:00 r ve Heart p07-517w-o l Care PA 7dd-4ee56a [facility] nn a2ff79 2013-10-05 2013-10-05 Unknown nullFlavo Comprehensi 5baa f98d-4 Memoria 20:28:00 20:28:00 r ve Heart 8d9-184e-s l Care PA y97-y913v5 [facility] nn 7q607s 2013-10-05 2013-10-05 Unknown nullFlavo Comprehensi 032c d99e-6 Memoria 20:28:00 20:28:00 r ve Heart 0r4-86ul-a l Care PA fa1-5kq873 [facility] nn 008a01 2013-10-05 2013-10-05 Unknown nullFlavo Comprehensi dd5a fae6-4 Memoria 20:28:00 20:28:00 r ve Heart fba-4c1e-b l Care PA 568-6f4f28 [facility] nn f414f1 2013-10-05 2013-10-05 Unknown nullFlavo Comprehensi f10e ff98-8 Memoria 20:28:00 20:28:00 r ve Heart 779-4ad6-b l Care PA 5o2-nc9y33 [facility] nn 412a6f 2013-10-05 2013-10-05 Unknown nullFlavo Comprehensi 0f8b bbd1-6 Memoria 20:28:00 20:28:00 r ve Heart 37d-4f44-9 l Care PA s60-6l52r4 [facility] nn e60dfe 2013-10-05 2013-10-05 Unknown nullFlavo Comprehensi ddc6 77c1-e Memoria 20:28:00 20:28:00 r ve Heart 3w1-7s98-5 l Care PA 918-495b33 [facility] nn 3707ce 2013-10-05 2013-10-05 Unknown nullFlavo Comprehensi 8468 9364-d Memoria 20:28:00 20:28:00 r ve Heart 0bf-47dd-a l Care PA t44-987f11 [facility] nn f36dab 2013-10-05 2013-10-05 Unknown nullFlavo Comprehensi 2a0e ae58-0 Memoria 20:28:00 20:28:00 r ve Heart a54-3r0p-d l Care PA h87-t468k6 [facility] nn b27a73 2013-10-05 2013-10-05 Unknown nullFlavo Comprehensi cfc3 c5b2-1 Memoria 20:28:00 20:28:00 r ve Heart 215-4597-9 l Care PA 910-o74751 [facility] nn dda74a 2013-10-05 2013-10-05 Unknown nullFlavo Comprehensi 18da 623d-3 Memoria 20:28:00 20:28:00 r ve Heart p0z-8cr4-g l Care PA 59b-026ca2 [facility] nn qt688j 2013-10-05 2013-10-05 Unknown nullFlavo Comprehensi fe5c 38e9-7 Memoria 20:28:00 20:28:00 r ve Heart 707-4c9d-b l Care PA 60a-f87d0d [facility] nn fdee6a 2013-10-05 2013-10-05 Unknown nullFlavo Comprehensi 897d fba9-c Memoria 20:28:00 20:28:00 r ve Heart efa-427e-b l Care PA 8p3-3d5553 [facility] nn 5c1f4a 2013-10-05 2013-10-05 Unknown nullFlavo Comprehensi 7826 816e-e Memoria 20:28:00 20:28:00 r ve Heart 1y0-40pn-r l Care PA 3t2-9078z4 [facility] nn bb13bc 2013-10-05 2013-10-05 Unknown nullFlavo Comprehensi a824 4208-6 Memoria 20:28:00 20:28:00 r ve Heart 556-422d-b l Care PA 023-x5a330 [facility] nn 2eh539 2013-10-05 2013-10-05 Unknown nullFlavo Comprehensi 032c d99e-6 Memoria 20:28:00 20:28:00 r ve Heart 3p4-68ls-p l Care PA fa1-8vj117 [facility] nn 008a01 2013-10-05 2013-10-05 Unknown nullFlavo Comprehensi 3519 9c48-9 Memoria 20:28:00 20:28:00 r ve Heart 095-4caf-b l Care PA 09b-b0dfd9 [facility] nn 629500 8525-01-23 2013-10-05 Unknown nullFlavo Comprehensi dd5a fae6-4 Memoria 20:28:00 20:28:00 r ve Heart fba-4c1e-b l Care PA 568-6f4f28 [facility] nn f414f1 2013-10-05 2013-10-05 Unknown nullFlavo Comprehensi 5baa f98d-4 Memoria 20:28:00 20:28:00 r ve Heart 3o8-924z-a l Care PA r90-s162i5 [facility] nn 6c320k 2013-10-05 2013-10-05 Unknown nullFlavo Comprehensi 11dd f136-0 Memoria 20:28:00 20:28:00 r ve Heart o36-113y-y l Care PA 7dd-4ee56a [facility] nn a2ff79 2013-10-05 2013-10-05 Unknown nullFlavo Comprehensi eed9 aff3-0 Memoria 20:28:00 20:28:00 r ve Heart 953-4631-b l Care PA 602-e3fc16 [facility] nn 99df7b 2013-10-05 2013-10-05 Unknown nullFlavo Comprehensi 0f8b bbd1-6 Memoria 20:28:00 20:28:00 r ve Heart 37d-4f44-9 l Care PA x47-9e73j9 [facility] nn e60dfe 2013-10-05 2013-10-05 Unknown nullFlavo Comprehensi c3a1 e75c-1 [facility] 20:28:00 20:28:00 r ve Heart 891-4492-a l Care PA beb-451d0d [facility] nn q4365h 2013-10-05 2013-10-05 Unknown nullFlavo Comprehensi f10e ff98-8 [facility]oria 20:28:00 20:28:00 r ve Heart 779-4ad6-b l Care PA 6d7-ql0g90 [facility] nn 412a6f 2013-10-05 2013-10-05 Unknown nullFlavo Comprehensi ddc6 77c1-e [facility]oria 20:28:00 20:28:00 r ve Heart 2m5-8r22-2 l Care PA 918-495b33 [facility] nn 3707ce 2013-10-05 2013-10-05 Unknown nullFlavo Comprehensi 8468 9364-d Memoria 20:28:00 20:28:00 r ve Heart 0bf-47dd-a l Care PA p71-447v13 [facility] nn f36dab 2013-10-05 2013-10-05 Unknown nullFlavo Comprehensi 2a0e ae58-0 Memoria 20:28:00 20:28:00 r ve Heart b97-6b9t-g l Care PA z53-c864c9 [facility] nn b27a73 2013-10-05 2013-10-05 Unknown nullFlavo Comprehensi cfc3 c5b2-1 [facility] 20:28:00 20:28:00 r ve Heart 215-4597-9 l Care PA 910-f66037 [facility] nn dda74a 2013-10-05 2013-10-05 Unknown nullFlavo Comprehensi 18da 623d-3 Memoria 20:28:00 20:28:00 r ve Heart y7n-3ba3-l l Care PA 59b-026ca2 [facility] nn du428w 2013-10-05 2013-10-05 Unknown nullFlavo Comprehensi fe5c 38e9-7 [facility] 20:28:00 20:28:00 r ve Heart 707-4c9d-b l Care PA 60a-f87d0d [facility] nn fdee6a 2013-10-05 2013-10-05 Unknown nullFlavo Comprehensi 897d fba9-c Memoria 20:28:00 20:28:00 r ve Heart efa-427e-b l Care PA 3n2-5b9442 [facility] nn 5c1f4a 2013-10-05 2013-10-05 Unknown nullFlavo Comprehensi 7826 816e-e Memoria 20:28:00 20:28:00 r ve Heart 4a0-75dj-g l Care PA 1l1-0764o6 [facility] nn bb13bc 2013-10-05 2013-10-05 Unknown nullFlavo Comprehensi a824 4208-6 [facility] 20:28:00 20:28:00 r ve Heart 556-422d-b l Care PA 023-t8d410 [facility] nn 5si417 2013-10-05 2013-10-05 Unknown nullFlavo Comprehensi 032c d99e-6 Memoria 20:28:00 20:28:00 r ve Heart 2g8-61ap-d l Care PA fa1-0xa119 [facility] nn 008a01 2013-10-05 2013-10-05 Unknown nullFlavo Comprehensi 3519 9c48-9 Memoria 20:28:00 20:28:00 r ve Heart 095-4caf-b l Care PA 09b-b0dfd9 [facility] nn 706687 8458-01-23 2013-10-05 Unknown nullFlavo Comprehensi dd5a fae6-4 [facility] 20:28:00 20:28:00 r ve Heart fba-4c1e-b l Care PA 568-6f4f28 [facility] nn f414f1 2013-10-05 2013-10-05 Unknown nullFlavo Comprehensi 5baa f98d-4 [facility] 20:28:00 20:28:00 r ve Heart 0t1-126m-t l Care PA m62-o446n0 [facility] nn 7a567u 2013-10-05 2013-10-05 Unknown nullFlavo Comprehensi 11dd f136-0 [facility] 20:28:00 20:28:00 r ve Heart s16-944j-a l Care PA 7dd-4ee56a [facility] nn a2ff79 2013-10-05 2013-10-05 Unknown nullFlavo Comprehensi eed9 aff3-0 [facility] 20:28:00 20:28:00 r ve Heart 953-4631-b l Care PA 602-e3fc16 [facility] nn 99df7b 2013-10-05 2013-10-05 Unknown nullFlavo Comprehensi 0f8b bbd1-6 [facility] 20:28:00 20:28:00 r ve Heart 37d-4f44-9 l Care PA m47-6c23j2 [facility] nn e60dfe 2013-10-05 2013-10-05 Unknown nullFlavo Comprehensi c3a1 e75c-1 [facility] 20:28:00 20:28:00 r ve Heart 891-4492-a l Care PA beb-451d0d [facility] nn x3780t 2013-10-05 2013-10-05 Unknown nullFlavo Comprehensi f10e ff98-8 [facility] 20:28:00 20:28:00 r ve Heart 779-4ad6-b l Care PA 8r7-uh2j01 [facility] nn 412a6f 2013-10-05 2013-10-05 Unknown nullFlavo Comprehensi ddc6 77c1-e [facility] 20:28:00 20:28:00 r ve Heart 7u3-5s64-4 l Care PA 918-495b33 [facility] nn 3707ce 2013-10-05 2013-10-05 Unknown nullFlavo Comprehensi 8468 9364-d [facility] 20:28:00 20:28:00 r ve Heart 0bf-47dd-a l Care PA k51-150w79 [facility] nn f36dab 2013-10-05 2013-10-05 Outpatient Comprehen Comprehensi 2 91748 [facility]Clinic 15:28:00 15:28:00 sive ve Heart alWor nd Heart Care PA Care PA 2013-10-05 2013-10-05 Outpatient Comprehen Comprehensi 2 08686 eClinic 15:28:00 15:28:00 sive ve Heart alWor nd Heart Care PA Care PA 2013-08-14 2013-08-14 Unknown nullFlavo Comprehensi fff4 4cea-4 [facility] 21:30:00 21:30:00 r ve Heart 0y6-1qx3-8 l Care PA 783-652ca4 [facility] nn 69ff99 2013-08-14 2013-08-14 Unknown nullFlavo Comprehensi 7b43 25b9-7 [facility] 21:30:00 21:30:00 r ve Heart 9a6-417i-g l Care PA 22c-6f47e3 [facility] nn adbaa3 2013-08-14 2013-08-14 Unknown nullFlavo Comprehensi fd40 431b-c [facility] 21:30:00 21:30:00 r ve Heart 20b-4ff2-8 l Care PA 47e-i9w469 [facility] nn 772b6b 2013-08-14 2013-08-14 Unknown nullFlavo Comprehensi 5611 ad6a-9 [facility] 21:30:00 21:30:00 r ve Heart l2x-4l61-f l Care PA [id number]-[id number] Haylee nn [id number] 1790-12-02 2013-08-14 Unknown nullFlavo Comprehensi d3d2 ab12-9 [facility] 21:30:00 21:30:00 r ve Heart 697-4b23-b l Care PA [id number]-v7f9k6 Haylee nn 38df80 2013-08-14 2013-08-14 Unknown nullFlavo Comprehensi ee22 58ff-b [facility] 21:30:00 21:30:00 r ve Heart 76e-4961-8 l Care PA [id number] Haylee nn 82b9b8 2013-08-14 2013-08-14 Unknown nullFlavo Comprehensi 9c18 a129-9 [facility] 21:30:00 21:30:00 r ve Heart 0ad-49da-9 l Care PA [id number]-a112f4 Haylee nn b266ee 2013-08-14 2013-08-14 Unknown nullFlavo Comprehensi 78dc 3833-a [facility] 21:30:00 21:30:00 r ve Heart f52-0901-1 l Care PA [id number] [facility] nn [id number] 2013-08-14 2013-08-14 Unknown nullFlavo Comprehensi 89d5 af70-d [facility] 21:30:00 21:30:00 r ve Heart 8u4-2647-7 l Care PA da5-d87d6c [facility] nn f10e5d 2013-08-14 2013-08-14 Unknown nullFlavo Comprehensi 4410 b766-f [facility] 21:30:00 21:30:00 r ve Heart be6-4d64-a l Care PA [id number] [facility] nn 19976s 2013-08-14 2013-08-14 Unknown nullFlavo Comprehensi 7b43 25b9-7 [facility] 21:30:00 21:30:00 r ve Heart 8i6-514j-n l Care PA [id number] Haylee nn adbaa3 2013-08-14 2013-08-14 Unknown nullFlavo Comprehensi fd40 431b-c [facility] 21:30:00 21:30:00 r ve Heart 20b-4ff2-8 l Care PA [id number] Haylee nn 772b6b 2013-08-14 2013-08-14 Unknown nullFlavo Comprehensi fff4 4cea-4 [facility] 21:30:00 21:30:00 r ve Heart 5d5-0qw1-2 l Care PA [id number] Haylee nn 69ff99 2013-08-14 2013-08-14 Unknown nullFlavo Comprehensi 78dc 3833-a [facility] 21:30:00 21:30:00 r ve Heart f52-8536-6 l Care PA [id number]-i82ix8 Haylee nn dw6149 2013-08-14 2013-08-14 Unknown nullFlavo Comprehensi 5611 ad6a-9 [facility] 21:30:00 21:30:00 r ve Heart c6x-2m73-q l Care PA 6n0-ng774z Haylee nn 065234 7250-12-02 2013-08-14 Unknown nullFlavo Comprehensi d3d2 ab12-9 [facility] 21:30:00 21:30:00 r ve Heart 697-4b23-b l Care PA [id number]-y7k4b3 Haylee nn 38df80 2013-08-14 2013-08-14 Unknown nullFlavo Comprehensi 4410 b766-f [facility] 21:30:00 21:30:00 r ve Heart be6-4d64-a l Care PA [id number] Haylee nn 45783a 2013-08-14 2013-08-14 Unknown nullFlavo Comprehensi 89d5 af70-d [facility] 21:30:00 21:30:00 r ve Heart 6q2-9934-5 l Care PA da5-d87d6c Haylee nn f10e5d 2013-08-14 2013-08-14 Unknown nullFlavo Comprehensi ee22 58ff-b [facility] 21:30:00 21:30:00 r ve Heart 76e-4961-8 l Care PA [id number] Haylee nn 82b9b8 2013-08-14 2013-08-14 Unknown nullFlavo Comprehensi 9c18 a129-9 [facility] 21:30:00 21:30:00 r ve Heart 0ad-49da-9 l Care PA [id number]-a112f4 Haylee nn b266ee 2013-08-14 2013-08-14 Unknown nullFlavo Comprehensi 7b43 25b9-7 [facility] 21:30:00 21:30:00 r ve Heart 9n8-785w-s l Care PA [id number]-[id number] [facility] nn adbaa3 2013-08-14 2013-08-14 Unknown nullFlavo Comprehensi fd40 431b-c [facility] 21:30:00 21:30:00 r ve Heart 20b-4ff2-8 l Care PA [id number] [facility] nn 772b6b 2013-08-14 2013-08-14 Unknown nullFlavo Comprehensi fff4 4cea-4 [facility] 21:30:00 21:30:00 r ve Heart 7i9-9gt3-9 l Care PA [id number] [facility] nn 69ff99 2013-08-14 2013-08-14 Unknown nullFlavo Comprehensi 78dc 3833-a [facility] 21:30:00 21:30:00 r ve Heart v41-1111-0 l Care PA [id number]-d99cv8 [facility] nn da5434 2013-08-14 2013-08-14 Unknown nullFlavo Comprehensi 5611 ad6a-9 [facility] 21:30:00 21:30:00 r ve Heart f4s-0v91-k l Care PA [id number]-te808h [facility] nn [id number] 1691-12-02 2013-08-14 Unknown nullFlavo Comprehensi d3d2 ab12-9 [facility] 21:30:00 21:30:00 r ve Heart 697-4b23-b l Care PA v2m-f3q6k2 [facility] nn 38df80 2013-08-14 2013-08-14 Unknown nullFlavo Comprehensi 4410 b766-f [facility] 21:30:00 21:30:00 r ve Heart be6-4d64-a l Care PA cc3-55be01 [facility] nn 98156x 2013-08-14 2013-08-14 Unknown nullFlavo Comprehensi 89d5 af70-d [facility] 21:30:00 21:30:00 r ve Heart 1s4-9519-7 l Care PA da5-d87d6c [facility] nn f10e5d 2013-08-14 2013-08-14 Unknown nullFlavo Comprehensi ee22 58ff-b [facility] 21:30:00 21:30:00 r ve Heart 76e-4961-8 l Care PA [id number] [facility] nn 82b9b8 2013-08-14 2013-08-14 Unknown nullFlavo Comprehensi 9c18 a129-9 [facility] 21:30:00 21:30:00 r ve Heart 0ad-49da-9 l Care PA [id number]-a112f4 Haylee nn b266ee 2013-08-14 2013-08-14 Unknown nullFlavo Comprehensi 5e74 4aa9-7 [facility] 20:30:00 20:30:00 r ve Heart 572-41f1-a l Care PA [id number] Haylee nn bddfed 2013-08-14 2013-08-14 Unknown nullFlavo Comprehensi b57c e4b2-4 [facility] 20:30:00 20:30:00 r ve Heart 233-4e41-b l Care PA [id number]-w262w2 Haylee nn 5q719q 2013-08-14 2013-08-14 Unknown nullFlavo Comprehensi ba75 cf0b-6 [facility] 20:30:00 20:30:00 r ve Heart 0bb-4774-a l Care PA 91f-317ab9 Haylee nn 789b00 2013-08-14 2013-08-14 Unknown nullFlavo Comprehensi dbed f8b3-0 [facility] 20:30:00 20:30:00 r ve Heart fb4-4502-9 l Care PA [id number] Haylee nn a4e9ad 2013-08-14 2013-08-14 Unknown nullFlavo Comprehensi 91c3 52ba-e [facility] 20:30:00 20:30:00 r ve Heart 98c-4fd5-8 l Care PA [id number]-7o7823 [facility] nn 1s7350 2013-08-14 2013-08-14 Unknown nullFlavo Comprehensi 335c e390-3 [facility] 20:30:00 20:30:00 r ve Heart 8g1-5c94-2 l Care PA 8c3-z8o39m Haylee nn 60s275 2013-08-14 2013-08-14 Unknown nullFlavo Comprehensi 9e1b bcc0-4 [facility] 20:30:00 20:30:00 [facility] ve [facility] bbd-4857-8 l Care PA 625-y27351 Haylee nn 7q796l 2013-08-14 2013-08-14 Unknown nullFlavo Comprehensi 2d62 2b28-7 [facility] 20:30:00 20:30:00 r ve Heart 280-4638-8 l Care PA 628-84i904 Haylee nn ffbbcf 2013-08-14 2013-08-14 Unknown nullFlavo Comprehensi 6e2f bb15-1 [facility] 20:30:00 20:30:00 r ve Heart 632-4641-9 l Care PA h61-2fis9l Haylee nn 53m051 2013-08-14 2013-08-14 Unknown nullFlavo Comprehensi 899a 8f34-7 [facility] 20:30:00 20:30:00 r ve Heart 1s2-4b63-7 l Care PA 5f0-1p9003 Haylee nn c93886 2013-08-14 2013-08-14 Unknown nullFlavo Comprehensi c5d2 ca38-3 [facility] 20:30:00 20:30:00 r ve Heart 8g4-75u5-5 l Care PA 276-cf1cc2 Haylee nn 3b9c4b 2013-08-14 2013-08-14 Unknown nullFlavo Comprehensi 8ea0 9d02-f [facility] 20:30:00 20:30:00 r ve Heart cef-4b9a-a l Care PA 3v7-5012h7 Haylee nn 390cf9 2013-08-14 2013-08-14 Unknown nullFlavo Comprehensi fcb7 881b-7 [facility] 20:30:00 20:30:00 r ve Heart 32e-458c-8 l Care PA d1n-42i940 Haylee nn adad70 2013-08-14 2013-08-14 Unknown nullFlavo Comprehensi bffa 49e9-e [facility] 20:30:00 20:30:00 r ve Heart 6m5-44k0-7 l Care PA de7-a4ff0e Haylee nn 3e5a36 2013-08-14 2013-08-14 Unknown nullFlavo Comprehensi b2fa a92e-4 [facility] 20:30:00 20:30:00 r ve Heart 0db-4167-9 l Care PA j0p-80h207 Haylee nn 22581v 2013-08-14 2013-08-14 Unknown nullFlavo Comprehensi 9239 e120-d [facility] 20:30:00 20:30:00 r ve Heart 3bd-4aa6-9 l Care PA 3i6-bl421q Haylee nn 3441b3 2013-08-14 2013-08-14 Unknown nullFlavo Comprehensi 9c33 e030-6 [facility] 20:30:00 20:30:00 r ve Heart 5q4-7ajr-w l Care PA y50-88f0g3 Haylee nn b5a6a1 2013-08-14 2013-08-14 Unknown nullFlavo Comprehensi f39f efaa-5 [facility] 20:30:00 20:30:00 r ve Heart 9d3-78in-t l Care PA 0a4-9aw0d7 Haylee nn e851c7 2013-08-14 2013-08-14 Unknown nullFlavo Comprehensi dbed f8b3-0 [facility] 20:30:00 20:30:00 r ve Heart fb4-4502-9 l Care PA 036-193d94 Haylee nn a4e9ad 2013-08-14 2013-08-14 Unknown nullFlavo Comprehensi 6e2f bb15-1 [facility] 20:30:00 20:30:00 r ve Heart 632-4641-9 l Care PA w70-5lkg2i Haylee nn 20g657 2013-08-14 2013-08-14 Unknown nullFlavo Comprehensi 5e74 4aa9-7 [facility] 20:30:00 20:30:00 r ve Heart 572-41f1-a l Care PA 5w8-71916k Haylee nn bddfed 2013-08-14 2013-08-14 Unknown nullFlavo Comprehensi b57c e4b2-4 [facility] 20:30:00 20:30:00 r ve Heart 233-4e41-b l Care PA n80-a799i8 Haylee nn 3q009y 2013-08-14 2013-08-14 Unknown nullFlavo Comprehensi 2d62 2b28-7 [facility] 20:30:00 20:30:00 r ve Heart 280-4638-8 l Care PA 628-49a390 Haylee nn ffbbcf 2013-08-14 2013-08-14 Unknown nullFlavo Comprehensi 91c3 52ba-e [facility] 20:30:00 20:30:00 r ve Heart 98c-4fd5-8 l Care PA 9ff-3i8406 Haylee nn 8p8094 2013-08-14 2013-08-14 Unknown nullFlavo Comprehensi 9e1b bcc0-4 [facility] 20:30:00 20:30:00 r ve Heart bbd-4857-8 l Care PA 625-t91519 Haylee nn 3b675s 2013-08-14 2013-08-14 Unknown nullFlavo Comprehensi fcb7 881b-7 [facility] 20:30:00 20:30:00 r ve Heart 32e-458c-8 l Care PA v8j-77f423 Haylee nn adad70 2013-08-14 2013-08-14 Unknown nullFlavo Comprehensi 335c e390-3 [facility] 20:30:00 20:30:00 r ve Heart 6a1-4j08-5 l Care PA 1x2-i6h72t Haylee nn 25h293 2013-08-14 2013-08-14 Unknown nullFlavo Comprehensi bffa 49e9-e [facility] 20:30:00 20:30:00 r ve Heart 5e7-25t4-6 l Care PA de7-a4ff0e Haylee nn 3e5a36 2013-08-14 2013-08-14 Unknown nullFlavo Comprehensi 8ea0 9d02-f [facility] 20:30:00 20:30:00 r ve Heart cef-4b9a-a l Care PA 5p7-3198b1 Haylee nn 390cf9 2013-08-14 2013-08-14 Unknown nullFlavo Comprehensi c5d2 ca38-3 [facility] 20:30:00 20:30:00 r ve Heart 6k6-83c1-8 l Care PA 276-cf1cc2 Haylee nn 3b9c4b 2013-08-14 2013-08-14 Unknown nullFlavo Comprehensi ba75 cf0b-6 [facility] 20:30:00 20:30:00 r ve Heart 0bb-4774-a l Care PA 91f-317ab9 Haylee nn 789b00 2013-08-14 2013-08-14 Unknown nullFlavo Comprehensi 9239 e120-d [facility] 20:30:00 20:30:00 r ve Heart 3bd-4aa6-9 l Care PA 1s6-zg247d Haylee nn 3441b3 2013-08-14 2013-08-14 Unknown nullFlavo Comprehensi 899a 8f34-7 [facility] 20:30:00 20:30:00 r ve Heart 6v1-3o81-8 l Care PA 1w5-7g9145 Haylee nn l61923 2013-08-14 2013-08-14 Unknown nullFlavo Comprehensi b2fa a92e-4 [facility] 20:30:00 20:30:00 r ve Heart 0db-4167-9 l Care PA l1e-21c765 Haylee nn 34846v 2013-08-14 2013-08-14 Unknown nullFlavo Comprehensi 9c33 e030-6 [facility] 20:30:00 20:30:00 r ve Heart 9y3-2gaq-f l Care PA o52-91k3y9 Haylee nn b5a6a1 2013-08-14 2013-08-14 Unknown nullFlavo Comprehensi f39f efaa-5 [facility] 20:30:00 20:30:00 r ve Heart 3n5-45cp-t l Care PA 3o9-5jp2y0 [facility] nn e851c7 2013-08-14 2013-08-14 Unknown nullFlavo Comprehensi dbed f8b3-0 [facility]oria 20:30:00 20:30:00 r ve Heart fb4-4502-9 l Care PA 036-193d94 Haylee nn a4e9ad 2013-08-14 2013-08-14 Unknown nullFlavo Comprehensi 6e2f bb15-1 [facility] 20:30:00 20:30:00 r ve Heart 632-4641-9 l Care PA b82-3ycy1d Haylee nn 27z127 2013-08-14 2013-08-14 Unknown nullFlavo Comprehensi 5e74 4aa9-7 [facility]oria 20:30:00 20:30:00 r ve Heart 572-41f1-a l Care PA 4s6-06373d Haylee nn bddfed 2013-08-14 2013-08-14 Unknown nullFlavo Comprehensi b57c e4b2-4 [facility] 20:30:00 20:30:00 r ve Heart 233-4e41-b l Care PA n78-r809u2 Haylee nn 8f131h 2013-08-14 2013-08-14 Unknown nullFlavo Comprehensi 2d62 2b28-7 [facility] 20:30:00 20:30:00 r ve Heart 280-4638-8 l Care PA 628-47x341 [facility] nn ffbbcf 2013-08-14 2013-08-14 Unknown nullFlavo Comprehensi 91c3 52ba-e Mem[facility] 20:30:00 20:30:00 r ve Heart 98c-4fd5-8 l Care PA 9ff-1o0834 [facility] nn 3y9379 2013-08-14 2013-08-14 Unknown nullFlavo Comprehensi 9e1b bcc0-4 [facility]oria 20:30:00 20:30:00 r ve Heart bbd-4857-8 l Care PA 625-w43122 [facility] nn 7g258v 2013-08-14 2013-08-14 Unknown nullFlavo Comprehensi fcb7 881b-7 [facility]oria 20:30:00 20:30:00 r ve Heart 32e-458c-8 l Care PA o8i-54d023 [facility] nn adad70 2013-08-14 2013-08-14 Unknown nullFlavo Comprehensi 335c e390-3 Memoria 20:30:00 20:30:00 r ve Heart 5o7-4i64-5 l Care PA 7k0-u9n81w [facility] nn 25f220 2013-08-14 2013-08-14 Unknown nullFlavo Comprehensi bffa 49e9-e Memoria 20:30:00 20:30:00 r ve Heart 1o3-38h4-4 l Care PA de7-a4ff0e [facility] nn 3e5a36 2013-08-14 2013-08-14 Unknown nullFlavo Comprehensi 8ea0 9d02-f Memoria 20:30:00 20:30:00 r ve Heart cef-4b9a-a l Care PA 9r4-6510c1 [facility] nn 390cf9 2013-08-14 2013-08-14 Unknown nullFlavo Comprehensi c5d2 ca38-3 Memoria 20:30:00 20:30:00 r ve Heart 6v3-55g3-2 l Care PA 276-cf1cc2 [facility] nn 3b9c4b 2013-08-14 2013-08-14 Unknown nullFlavo Comprehensi ba75 cf0b-6 Memoria 20:30:00 20:30:00 r ve Heart 0bb-4774-a l Care PA 91f-317ab9 [facility] nn 789b00 2013-08-14 2013-08-14 Unknown nullFlavo Comprehensi 9239 e120-d Memoria 20:30:00 20:30:00 r ve Heart 3bd-4aa6-9 l Care PA 2v2-dv803q [facility] nn 3441b3 2013-08-14 2013-08-14 Unknown nullFlavo Comprehensi 899a 8f34-7 Memoria 20:30:00 20:30:00 r ve Heart 5q0-4j35-9 l Care PA 4i1-0q8129 [facility] nn b96817 2013-08-14 2013-08-14 Unknown nullFlavo Comprehensi b2fa a92e-4 [facility]oria 20:30:00 20:30:00 r ve Heart 0db-4167-9 l Care PA p6m-56y287 [facility] nn 51627c 2013-08-14 2013-08-14 Unknown nullFlavo Comprehensi 9c33 e030-6 [facility]oria 20:30:00 20:30:00 r ve Heart 5x3-6fgk-g l Care PA e97-67e8j7 [facility] nn b5a6a1 2013-08-14 2013-08-14 Unknown nullFlavo Comprehensi f39f efaa-5 [facility]oria 20:30:00 20:30:00 r ve Heart 1d8-65rx-p l Care PA 9q6-1yu5u0 [facility] nn e851c7 2013-08-14 2013-08-14 Outpatient Comprehen Comprehensi 2 7[facility]15 [facility] 15:30:00 15:30[facility] 2013-08-14 2013-08-14 Outpatient Comprehen Comprehensi 2 28633 eClinic 15:30:00 15:30:00 [facility] PA Care PA 2013-07-31 2013-07-31 Unknown nullFlavo Comprehensi 0a81 9c66-1 Memoria 23:23:00 23:23:00 r ve Heart 3df-472d-b l Care PA ff2-60ff98 Haylee nn 1322b7 2013-07-31 2013-07-31 Unknown nullFlavo Comprehensi a47f 00a8-6 [facility]oria 23:23:00 23:23:00 r ve Heart g36-7t89-c l Care PA k36-3en6e8 Haylee nn 916f9b 2013-07-31 2013-07-31 Unknown nullFlavo Comprehensi 930f b2f6-d Memoria 23:23:00 23:23:00 r ve Heart 336-4594-9 l Care PA 907-fbce0b Haylee nn 8a46b7 2013-07-31 2013-07-31 Unknown nullFlavo Comprehensi e9ac 6aff-9 [facility] 23:23:00 23:23:00 r ve Heart 5h5-9898-3 l Care PA gayatri-7fbc57 Haylee nn aa8a44 2013-07-31 2013-07-31 Unknown nullFlavo Comprehensi 2c48 2b32-5 [facility]oria 23:23:00 23:23:00 r ve Heart 4j0-13i1-5 l Care PA 8fc-697d1d Haylee nn a6cac7 2013-07-31 2013-07-31 Unknown nullFlavo Comprehensi f48e f3db-5 [facility]oria 23:23:00 23:23:00 r ve Heart 7b0-28i0-p l Care PA 17f-7q1212 Haylee nn fd50f7 2013-07-31 2013-07-31 Unknown nullFlavo Comprehensi d08e a12c-5 [facility]oria 23:23:00 23:23:00 r ve Heart 87e-4b1a-a l Care PA 46d-9e84af Haylee nn hf5956 2013-07-31 2013-07-31 Unknown nullFlavo Comprehensi 94d0 5a69-2 [facility]oria 23:23:00 23:23:00 r ve Heart v2j-357j-8 l Care PA 667-98a36e Haylee nn a7bbca 2013-07-31 2013-07-31 Unknown nullFlavo Comprehensi 8b48 600f-4 Memoria 23:23:00 23:23:00 r ve Heart x38-170i-a l Care PA 00b-e55ede [facility] nn 45227x 2013-07-31 2013-07-31 Unknown nullFlavo Comprehensi 14f7 80f5-f Memoria 23:23:00 23:23:00 r ve Heart 15c-4b89-b l Care PA 35d-37w771 Haylee nn 201051 4123-11-18 2013-07-31 Unknown nullFlavo Comprehensi 06da c6f1-8 Memoria 23:23:00 23:23:00 r ve Heart n0u-1ec8-z l Care PA 165-qb805x [facility] nn 192812 7695-11-18 2013-07-31 Unknown nullFlavo Comprehensi 0a81 9c66-1 [facility]oria 23:23:00 23:23:00 r ve Heart 3df-472d-b l Care PA ff2-60ff98 [facility] nn 1322b7 2013-07-31 2013-07-31 Unknown nullFlavo Comprehensi 930f b2f6-d Memoria 23:23:00 23:23:00 r ve Heart 336-4594-9 l Care PA 907-fbce0b [facility] nn 8a46b7 2013-07-31 2013-07-31 Unknown nullFlavo Comprehensi e9ac 6aff-9 Memoria 23:23:00 23:23:00 r ve Heart 9q2-2124-9 l Care PA gayatri-7fbc57 [facility] nn aa8a44 2013-07-31 2013-07-31 Unknown nullFlavo Comprehensi a47f 00a8-6 Memoria 23:23:00 23:23:00 r ve Heart u96-3o27-w l Care PA m41-5ma6l7 [facility] nn 916f9b 2013-07-31 2013-07-31 Unknown nullFlavo Comprehensi 8b48 600f-4 Memoria 23:23:00 23:23:00 r ve Heart p56-509l-y l Care PA 00b-e55ede [facility] nn 30134q 2013-07-31 2013-07-31 Unknown nullFlavo Comprehensi 2c48 2b32-5 Memoria 23:23:00 23:23:00 r ve Heart 9v3-39m6-1 l Care PA 8fc-697d1d [facility] nn a6cac7 2013-07-31 2013-07-31 Unknown nullFlavo Comprehensi f48e f3db-5 Memoria 23:23:00 23:23:00 r ve Heart 0z4-70b2-p l Care PA 17f-7l6733 Haylee nn fd50f7 2013-07-31 2013-07-31 Unknown nullFlavo Comprehensi 06da c6f1-8 Memoria 23:23:00 23:23:00 r ve Heart n5t-1qb8-l l Care PA 165-nl276h Haylee nn 187676 5051-11-18 2013-07-31 Unknown nullFlavo Comprehensi 14f7 80f5-f Memoria 23:23:00 23:23:00 r ve Heart 15c-4b89-b l Care PA 35d-56e067 Haylee nn 636486 1535-11-18 2013-07-31 Unknown nullFlavo Comprehensi d08e a12c-5 Memoria 23:23:00 23:23:00 r ve Heart 87e-4b1a-a l Care PA 46d-9e84af Haylee nn xh0276 2013-07-31 2013-07-31 Unknown nullFlavo Comprehensi 94d0 5a69-2 Memoria 23:23:00 23:23:00 r ve Heart r3k-218i-4 l Care PA 667-98a36e Haylee nn a7bbca 2013-07-31 2013-07-31 Unknown nullFlavo Comprehensi 0a81 9c66-1 [facility]oria 23:23:00 23:23:00 r ve Heart 3df-472d-b l Care PA ff2-60ff98 Haylee nn 1322b7 2013-07-31 2013-07-31 Unknown nullFlavo Comprehensi 930f b2f6-d Memoria 23:23:00 23:23:00 r ve Heart 336-4594-9 l Care PA 907-fbce0b Haylee nn 8a46b7 2013-07-31 2013-07-31 Unknown nullFlavo Comprehensi e9ac 6aff-9 [facility]oria 23:23:00 23:23:00 r ve Heart 4b2-4303-6 l Care PA gayatri-7fbc57 Haylee nn aa8a44 2013-07-31 2013-07-31 Unknown nullFlavo Comprehensi a47f 00a8-6 Memoria 23:23:00 23:23:00 r ve Heart t81-0y23-q l Care PA d71-9gk9v5 [facility]lee nn 916f9b 2013-07-31 2013-07-31 Unknown nullFlavo Comprehensi 8b48 600f-4 Memoria 23:23:00 23:23:00 r ve Heart r21-179m-l l Care PA 00b-e55ede Haylee nn 44723d 2013-07-31 2013-07-31 Unknown nullFlavo Comprehensi 2c48 2b32-5 Memoria 23:23:00 23:23:00 r ve Heart 4r2-34y1-1 l Care PA 8fc-697d1d Haylee nn a6cac7 2013-07-31 2013-07-31 Unknown nullFlavo Comprehensi f48e f3db-5 [facility]oria 23:23:00 23:23:00 r ve Heart 7u8-01h1-p l Care PA 17f-1m0316 Haylee nn fd50f7 2013-07-31 2013-07-31 Unknown nullFlavo Comprehensi 06da c6f1-8 [facility]oria 23:23:00 23:23:00 r ve Heart a0u-2md6-u l Care PA 165-wy652w Haylee nn 802159 1405-11-18 2013-07-31 Unknown nullFlavo Comprehensi 14f7 80f5-f Memoria 23:23:00 23:23:00 r ve Heart 15c-4b89-b l Care PA 35d-85v829 Haylee nn 427187 3653-11-18 2013-07-31 Unknown nullFlavo Comprehensi d08e a12c-5 Memoria 23:23:00 23:23:00 r ve Heart 87e-4b1a-a l Care PA 46d-9e84af Haylee nn vn9611 2013-07-31 2013-07-31 Unknown nullFlavo Comprehensi 94d0 5a69-2 Memoria 23:23:00 23:23:00 r ve Heart d9n-336i-9 l Care PA 667-98a36e Haylee nn a7bbca 2013-07-31 2013-07-31 Unknown nullFlavo Comprehensi 8cd9 14cf-4 Memoria 22:23:00 22:23:00 r ve Heart 9ed-4d37-a l Care PA 407-4e6aea Haylee nn 5s9592 2013-07-31 2013-07-31 Unknown nullFlavo Comprehensi 0449 b7b9-e Memoria 22:23:00 22:23:00 r ve Heart 835-47e4-b l Care PA 410-h28608 Haylee nn 774908 9948-11-18 2013-07-31 Unknown nullFlavo Comprehensi 09ca 54cd-8 Memoria 22:23:00 22:23:00 r ve Heart ce1-4b9b-a l Care PA x2c-08845m Haylee nn 7bdfd5 2013-07-31 2013-07-31 Unknown nullFlavo Comprehensi 4a2c 658a-6 Memoria 22:23:00 22:23:00 r ve Heart 20a-464f-b l Care PA 831-bd4df9 Haylee nn cacb12 2013-07-31 2013-07-31 Unknown nullFlavo Comprehensi 3b65 5974-c Memoria 22:23:00 22:23:00 r ve Heart 19f-4a17-9 l Care PA 8s1-k54r5w Haylee nn 99eab1 2013-07-31 2013-07-31 Unknown nullFlavo Comprehensi 01da 738b-a Memoria 22:23:00 22:23:00 r ve Heart 4ed-40cf-9 l Care PA 29f-709619 Haylee nn 9ec3c4 2013-07-31 2013-07-31 Unknown nullFlavo Comprehensi e6b8 9fef-2 Memoria 22:23:00 22:23:00 r ve Heart 5g0-315h-h l Care PA 3t6-3643pk Haylee nn 798788 8186-11-18 2013-07-31 Unknown nullFlavo Comprehensi 86cc 1771-1 Memoria 22:23:00 22:23:00 r ve Heart de7-4f34-a l Care PA 242-14987g Haylee nn 1eca41 2013-07-31 2013-07-31 Unknown nullFlavo Comprehensi bc37 ccc5-c Memoria 22:23:00 22:23:00 r ve Heart 4b9-3896-9 l Care PA 782-3ff4a4 [facility]lee nn 513b25 2013-07-31 2013-07-31 Unknown nullFlavo Comprehensi f487 24d6-f Memoria 22:23:00 22:23:00 r ve Heart 7eb-4692-9 l Care PA i81-o081t5 Haylee nn 94a83d 2013-07-31 2013-07-31 Unknown nullFlavo Comprehensi 04d7 2572-a Memoria 22:23:00 22:23:00 r ve Heart 96f-4db5-9 l Care PA 22b-8f0b26 Haylee nn 476633 5125-11-18 2013-07-31 Unknown nullFlavo Comprehensi 0e6f d61e-2 Memoria 22:23:00 22:23:00 r ve Heart j35-291p-0 l Care PA 5cd-1fc3c3 Haylee nn 4b2f75 2013-07-31 2013-07-31 Unknown nullFlavo Comprehensi 9e57 c1dd-f Memoria 22:23:00 22:23:00 r ve Heart q42-1xt5-f l Care PA 773-4798d8 Haylee nn 682312 4755-11-18 2013-07-31 Unknown nullFlavo Comprehensi 08b0 7107-4 Memoria 22:23:00 22:23:00 r ve Heart v70-66q5-l l Care PA eec-f754fd Haylee nn e36ad6 2013-07-31 2013-07-31 Unknown nullFlavo Comprehensi 7a77 f8ad-6 Memoria 22:23:00 22:23:00 r ve Heart 480-4c1d-9 l Care PA 0k2-a580z6 Haylee nn ad1dea 2013-07-31 2013-07-31 Unknown nullFlavo Comprehensi 8dbc afe4-9 Memoria 22:23:00 22:23:00 r ve Heart 451-44c6-b l Care PA 4g5-8v9105 Haylee nn zc4243 2013-07-31 2013-07-31 Unknown nullFlavo Comprehensi c15c 87e8-8 Memoria 22:23:00 22:23:00 r ve Heart 5y4-9ixt-6 l Care PA 44d-bd03bd Haylee nn 64e79e 2013-07-31 2013-07-31 Unknown nullFlavo Comprehensi 62ae e04f-4 Memoria 22:23:00 22:23:00 r ve Heart 1z4-594e-o l Care PA 3cb-4e61b1 Haylee nn 35619z 2013-07-31 2013-07-31 Unknown nullFlavo Comprehensi 4a2c 658a-6 Memoria 22:23:00 22:23:00 r ve Heart 20a-464f-b l Care PA 831-bd4df9 Haylee nn cacb12 2013-07-31 2013-07-31 Unknown nullFlavo Comprehensi bc37 ccc5-c Memoria 22:23:00 22:23:00 r ve Heart 9u9-0222-9 l Care PA 782-3ff4a4 [facility]lee nn 513b25 2013-07-31 2013-07-31 Unknown nullFlavo Comprehensi 8cd9 14cf-4 Memoria 22:23:00 22:23:00 r ve Heart 9ed-4d37-a l Care PA 407-4e6aea Haylee nn 7d1998 2013-07-31 2013-07-31 Unknown nullFlavo Comprehensi 0449 b7b9-e Memoria 22:23:00 22:23:00 r ve Heart 835-47e4-b l Care PA 410-j14670 Haylee nn 150227 2757-11-18 2013-07-31 Unknown nullFlavo Comprehensi 86cc 1771-1 Memoria 22:23:00 22:23:00 r ve Heart de7-4f34-a l Care PA 242-05523i Haylee nn 1eca41 2013-07-31 2013-07-31 Unknown nullFlavo Comprehensi 3b65 5974-c Memoria 22:23:00 22:23:00 r ve Heart 19f-4a17-9 l Care PA 5i1-m39j7h [facility]lee nn 99eab1 2013-07-31 2013-07-31 Unknown nullFlavo Comprehensi e6b8 9fef-2 Memoria 22:23:00 22:23:00 r ve Heart 3c5-637e-o l Care PA 2c9-4366ex Haylee nn 949842 3390-11-18 2013-07-31 Unknown nullFlavo Comprehensi 9e57 c1dd-f Memoria 22:23:00 22:23:00 r ve Heart r64-5xp5-k l Care PA 773-4798d8 Haylee nn 908513 0685-11-18 2013-07-31 Unknown nullFlavo Comprehensi 01da 738b-a Memoria 22:23:00 22:23:00 r ve Heart 4ed-40cf-9 l Care PA 29f-221159 [facility]lee nn 9ec3c4 2013-07-31 2013-07-31 Unknown nullFlavo Comprehensi 08b0 7107-4 Memoria 22:23:00 22:23:00 r ve Heart q86-97p1-h l Care PA eec-f754fd [facility]lee nn e36ad6 2013-07-31 2013-07-31 Unknown nullFlavo Comprehensi 0e6f d61e-2 Memoria 22:23:00 22:23:00 r ve Heart o45-187b-1 l Care PA 5cd-1fc3c3 Haylee nn 4b2f75 2013-07-31 2013-07-31 Unknown nullFlavo Comprehensi 04d7 2572-a Memoria 22:23:00 22:23:00 r ve Heart 96f-4db5-9 l Care PA 22b-8f0b26 Haylee nn 088744 6851-11-18 2013-07-31 Unknown nullFlavo Comprehensi 09ca 54cd-8 Memoria 22:23:00 22:23:00 r ve Heart ce1-4b9b-a l Care PA q7d-51794y [facility]lee nn 7bdfd5 2013-07-31 2013-07-31 Unknown nullFlavo Comprehensi 8dbc afe4-9 Memoria 22:23:00 22:23:00 r ve Heart 451-44c6-b l Care PA 5y6-3a7380 Haylee nn me9277 2013-07-31 2013-07-31 Unknown nullFlavo Comprehensi f487 24d6-f Memoria 22:23:00 22:23:00 r ve Heart 7eb-4692-9 l Care PA f30-k330v6 Haylee nn 94a83d 2013-07-31 2013-07-31 Unknown nullFlavo Comprehensi 7a77 f8ad-6 Memoria 22:23:00 22:23:00 r ve Heart 480-4c1d-9 l Care PA 4p6-j796x2 [facility]lee nn ad1dea 2013-07-31 2013-07-31 Unknown nullFlavo Comprehensi c15c 87e8-8 Memoria 22:23:00 22:23:00 r ve Heart 3z9-4zlz-2 l Care PA 44d-bd03bd Haylee nn 64e79e 2013-07-31 2013-07-31 Unknown nullFlavo Comprehensi 62ae e04f-4 Memoria 22:23:00 22:23:00 r ve Heart 4p1-523p-h l Care PA 3cb-4e61b1 Haylee nn 66989n 2013-07-31 2013-07-31 Unknown nullFlavo Comprehensi 4a2c 658a-6 Memoria 22:23:00 22:23:00 r ve Heart 20a-464f-b l Care PA 831-bd4df9 Haylee nn cacb12 2013-07-31 2013-07-31 Unknown nullFlavo Comprehensi bc37 ccc5-c Memoria 22:23:00 22:23:00 r ve Heart 6r1-1196-9 l Care PA 782-3ff4a4 [facility]lee nn 513b25 2013-07-31 2013-07-31 Unknown nullFlavo Comprehensi 8cd9 14cf-4 Memoria 22:23:00 22:23:00 r ve Heart 9ed-4d37-a l Care PA 407-4e6aea Haylee nn 7l5218 2013-07-31 2013-07-31 Unknown nullFlavo Comprehensi 0449 b7b9-e [facility]oria 22:23:00 22:23:00 r ve Heart 835-47e4-b l Care PA 410-s73269 Haylee nn 558571 6120-11-18 2013-07-31 Unknown nullFlavo Comprehensi 86cc 1771-1 [facility]oria 22:23:00 22:23:00 r ve Heart de7-4f34-a l Care PA 242-07129w Haylee nn 1eca41 2013-07-31 2013-07-31 Unknown nullFlavo Comprehensi 3b65 5974-c Memoria 22:23:00 22:23:00 r ve Heart 19f-4a17-9 l Care PA 4m6-r63z4b [facility] nn 99eab1 2013-07-31 2013-07-31 Unknown nullFlavo Comprehensi e6b8 9fef-2 Memoria 22:23:00 22:23:00 r ve Heart 9u7-226h-z l Care PA 2c0-4078ob [facility] nn 455625 6851-11-18 2013-07-31 Unknown nullFlavo Comprehensi 9e57 c1dd-f Memoria 22:23:00 22:23:00 r ve Heart r07-1ds5-j l Care PA [id number] [facility] nn 805401 9560-11-18 2013-07-31 Unknown nullFlavo Comprehensi 01da 738b-a Memoria 22:23:00 22:23:00 r ve Heart 4ed-40cf-9 l Care PA [id number]-078456 [facility] nn 9ec3c4 2013-07-31 2013-07-31 Unknown nullFlavo Comprehensi 08b0 7107-4 Memoria 22:23:00 22:23:00 r ve Heart o48-70u0-w l Care PA eec-f754fd [facility] nn e36ad6 2013-07-31 2013-07-31 Unknown nullFlavo Comprehensi 0e6f d61e-2 Memoria 22:23:00 22:23:00 r ve Heart t98-828o-9 l Care PA 5cd-1fc3c3 [facility] nn 4b2f75 2013-07-31 2013-07-31 Unknown nullFlavo Comprehensi 04d7 2572-a Memoria 22:23:00 22:23:00 r ve Heart 96f-4db5-9 l Care PA 22b-8f0b26 [facility] nn [id number] 4093-11-18 2013-07-31 Unknown nullFlavo Comprehensi 09ca 54cd-8 Memoria 22:23:00 22:23:00 r ve Heart ce1-4b9b-a l Care PA t0j-74067g [facility] nn 7bdfd5 2013-07-31 2013-07-31 Unknown nullFlavo Comprehensi 8dbc afe4-9 Memoria 22:23:00 22:23:00 r ve Heart 451-44c6-b l Care PA [id number] [facility] nn ya6731 2013-07-31 2013-07-31 Unknown nullFlavo Comprehensi f487 24d6-f Memoria 22:23:00 22:23:00 r ve Heart 7eb-4692-9 l Care PA m20-f968h7 [facility] nn 94a83d 2013-07-31 2013-07-31 Unknown nullFlavo Comprehensi 7a77 f8ad-6 [facility]oria 22:23:00 22:23:00 r ve Heart 480-4c1d-9 l Care PA 4e9-u433t9 [facility] nn ad1dea 2013-07-31 2013-07-31 Unknown nullFlavo Comprehensi c15c 87e8-8 Memoria 22:23:00 22:23:00 r ve Heart 3q0-0rge-6 l Care PA 44d-bd03bd [facility] nn 64e79e 2013-07-31 2013-07-31 Unknown nullFlavo Comprehensi 62ae e04f-4 [facility]oria 22:23:00 22:23:00 r ve Heart 4a0-290j-e l Care PA 3cb-4e61b1 [facility] nn 45962f 2013-07-31 2013-07-31 Outpatient Comprehen Comprehensi 2 69383 [facility] 17:23:00 17:23:00 [facility] PA Care PA 2013-07-31 2013-07-31 Outpatient Comprehen Comprehensi 2 64754 [facility]inic 17:23:00 17:23:00 [facility]ive ve [facility] nd [facility] PA Care PA 2013-06-23 2013-06-23 Unknown nullFlavo Comprehensi 801f bf4d-7 [facility]oria 19:36:00 19:36:00 r ve Heart 863-4c2d-8 l Care PA 103-20y472 [facility] nn 979440 4549-10-11 2013-06-23 Unknown nullFlavo Comprehensi ef62 2637-0 [facility]oria 19:36:00 19:36:00 r ve Heart af5-4c02-9 l Care PA r47-qo68f5 [facility]lee nn 98cf19 2013-06-23 2013-06-23 Unknown nullFlavo Comprehensi 44ed 0b92-6 [facility]oria 19:36:00 19:36:00 r ve Heart 94b-49d7-a l Care PA 450-edf5fc Haylee nn 720e5e 2013-06-23 2013-06-23 Unknown nullFlavo Comprehensi d7cd 72b9-2 [facility]oria 19:36:00 19:36:00 r ve Heart 2ff-4b86-9 l Care PA fce-e7d1d0 [facility]lee nn s2159o 2013-06-23 2013-06-23 Unknown nullFlavo Comprehensi f975 683b-9 [facility]oria 19:36:00 19:36:00 r ve Heart 7ae-4349-9 l Care PA 645-38z584 [facility] nn 19dd33 2013-06-23 2013-06-23 Unknown nullFlavo Comprehensi 3622 65fa-9 [facility]oria 19:36:00 19:36:00 r ve Heart i14-23t8-y l Care PA 605-e64e43 Haylee nn d24fff 2013-06-23 2013-06-23 Unknown nullFlavo Comprehensi 9f23 3707-e [facility] 19:36:00 19:36:00 r ve Heart 75e-40e2-9 l Care PA aef-02dc89 Haylee nn 7c8c5c 2013-06-23 2013-06-23 Unknown nullFlavo Comprehensi baaa 0f6c-7 [facility] 19:36:00 19:36:00 r ve Heart 350-4bd4-9 l Care PA e82-f38is5 [facility]lee nn [id number] 0450-10-11 2013-06-23 Unknown nullFlavo Comprehensi 7f19 7246-d [facility]oria 19:36:00 19:36:00 r ve Heart h96-65x9-o l Care PA fe1-d54ef8 Haylee nn 6d2efb 2013-06-23 2013-06-23 Unknown nullFlavo Comprehensi 2279 5cae-4 [facility] 19:36:00 19:36:00 r ve Heart 424-4063-b l Care PA 09e-403e70 Haylee nn ot539z 2013-06-23 2013-06-23 Unknown nullFlavo Comprehensi ed11 c232-6 Memoria 19:36:00 19:36:00 r ve Heart 3j1-46v7-5 l Care PA cbb-6225af [facility] nn a6fb0f 2013-06-23 2013-06-23 Unknown nullFlavo Comprehensi 86e4 ee17-8 [facility]oria 19:36:00 19:36:00 r ve Heart 48f-408f-9 l Care PA y1a-2z560l [facility] nn 6t350n 2013-06-23 2013-06-23 Unknown nullFlavo Comprehensi 801f bf4d-7 [facility]oria 19:36:00 19:36:00 r ve Heart 863-4c2d-8 l Care PA 103-78z581 [facility] nn 633896 7865-10-11 2013-06-23 Unknown nullFlavo Comprehensi d7cd 72b9-2 [facility]oria 19:36:00 19:36:00 r ve Heart 2ff-4b86-9 l Care PA fce-e7d1d0 [facility] nn b1335f 2013-06-23 2013-06-23 Unknown nullFlavo Comprehensi f975 683b-9 [facility] 19:36:00 19:36:00 r ve Heart 7ae-4349-9 l Care PA [id number] [facility] nn 19dd33 2013-06-23 2013-06-23 Unknown nullFlavo Comprehensi ef62 2637-0 Memoria 19:36:00 19:36:00 r ve Heart af5-4c02-9 l Care PA k37-os54g5 [facility] nn 98cf19 2013-06-23 2013-06-23 Unknown nullFlavo Comprehensi 44ed 0b92-6 [facility]oria 19:36:00 19:36:00 r ve Heart 94b-49d7-a l Care PA 450-edf5fc [facility] nn 720e5e 2013-06-23 2013-06-23 Unknown nullFlavo Comprehensi 2279 5cae-4 Memoria 19:36:00 19:36:00 r ve Heart 424-4063-b l Care PA 09e-403e70 [facility] nn ly212f 2013-06-23 2013-06-23 Unknown nullFlavo Comprehensi 3622 65fa-9 Memoria 19:36:00 19:36:00 r ve Heart i29-25u2-a l Care PA 605-e64e43 [facility] nn d24fff 2013-06-23 2013-06-23 Unknown nullFlavo Comprehensi 9f23 3707-e Memoria 19:36:00 19:36:00 r ve Heart 75e-40e2-9 l Care PA aef-02dc89 [facility] nn 7c8c5c 2013-06-23 2013-06-23 Unknown nullFlavo Comprehensi 86e4 ee17-8 Memoria 19:36:00 19:36:00 r ve Heart 48f-408f-9 l Care PA w7s-1c017q [facility] nn 7o857b 2013-06-23 2013-06-23 Unknown nullFlavo Comprehensi ed11 c232-6 Memoria 19:36:00 19:36:00 r ve Heart 8m6-17z0-4 l Care PA cbb-6225af [facility] nn a6fb0f 2013-06-23 2013-06-23 Unknown nullFlavo Comprehensi baaa 0f6c-7 Memoria 19:36:00 19:36:00 r ve Heart 350-4bd4-9 l Care PA o41-w03uh6 [facility] nn 707764 2806-10-11 2013-06-23 Unknown nullFlavo Comprehensi 7f19 7246-d Memoria 19:36:00 19:36:00 r ve Heart y23-23c7-w l Care PA fe1-d54ef8 [facility] nn 6d2efb 2013-06-23 2013-06-23 Unknown nullFlavo Comprehensi 801f bf4d-7 Memoria 19:36:00 19:36:00 r ve Heart 863-4c2d-8 l Care PA 103-00p268 [facility] nn 875703 3360-10-11 2013-06-23 Unknown nullFlavo Comprehensi d7cd 72b9-2 Memoria 19:36:00 19:36:00 r ve Heart 2ff-4b86-9 l Care PA fce-e7d1d0 [facility] nn p0888z 2013-06-23 2013-06-23 Unknown nullFlavo Comprehensi f975 683b-9 Memoria 19:36:00 19:36:00 r ve Heart 7ae-4349-9 l Care PA 645-34d621 [facility] nn 19dd33 2013-06-23 2013-06-23 Unknown nullFlavo Comprehensi ef62 2637-0 Memoria 19:36:00 19:36:00 r ve Heart af5-4c02-9 l Care PA z74-mv38w8 [facility] nn 98cf19 2013-06-23 2013-06-23 Unknown nullFlavo Comprehensi 44ed 0b92-6 Memoria 19:36:00 19:36:00 r ve Heart 94b-49d7-a l Care PA 450-edf5fc [facility] nn 720e5e 2013-06-23 2013-06-23 Unknown nullFlavo Comprehensi 2279 5cae-4 Memoria 19:36:00 19:36:00 r ve Heart 424-4063-b l Care PA 09e-403e70 [facility] nn hy196u 2013-06-23 2013-06-23 Unknown nullFlavo Comprehensi 3622 65fa-9 Memoria 19:36:00 19:36:00 r ve Heart i45-82n0-o l Care PA 605-e64e43 [facility] nn d24fff 2013-06-23 2013-06-23 Unknown nullFlavo Comprehensi 9f23 3707-e Memoria 19:36:00 19:36:00 r ve Heart 75e-40e2-9 l Care PA aef-02dc89 [facility] nn 7c8c5c 2013-06-23 2013-06-23 Unknown nullFlavo Comprehensi 86e4 ee17-8 Memoria 19:36:00 19:36:00 r ve Heart 48f-408f-9 l Care PA x7r-1c961h [facility] nn 9j392f 2013-06-23 2013-06-23 Unknown nullFlavo Comprehensi ed11 c232-6 Memoria 19:36:00 19:36:00 r ve Heart 7r7-04a1-1 l Care PA cbb-6225af [facility] nn a6fb0f 2013-06-23 2013-06-23 Unknown nullFlavo Comprehensi baaa 0f6c-7 Memoria 19:36:00 19:36:00 r ve Heart 350-4bd4-9 l Care PA y28-s41ej5 [place] nn 779013 5043-10-11 2013-06-23 Unknown nullFlavo Comprehensi 7f19 7246-d Memoria 19:36:00 19:36:00 r ve Heart s19-90b2-q l Care PA fe1-d54ef8 [facility] nn 6d2efb 2013-06-23 2013-06-23 Unknown nullFlavo Comprehensi 55b1 cb54-e Memoria 18:36:00 18:36:00 r ve Heart 821-4e53-9 l Care PA 095-w9601w [facility] nn 616961 0645-10-11 2013-06-23 Unknown nullFlavo Comprehensi 0864 0f64-3 Memoria 18:36:00 18:36:00 r ve Heart 3y1-8y4r-d l Care PA 5g9-jev334 [facility] nn 3760fd 2013-06-23 2013-06-23 Unknown nullFlavo Comprehensi 1c46 1d94-1 Memoria 18:36:00 18:36:00 r ve Heart a9v-1h4z-e l Care PA y3u-249ukm [facility] nn 1ev218 2013-06-23 2013-06-23 Unknown nullFlavo Comprehensi b524 cedc-e Memoria 18:36:00 18:36:00 r ve Heart 377-439c-a l Care PA 23b-h6555p [facility] nn 5814fb 2013-06-23 2013-06-23 Unknown nullFlavo Comprehensi 1d2f 329f-e Memoria 18:36:00 18:36:00 r ve Heart x63-3rcv-d l Care PA 657-041538 [facility] nn 9644b6 2013-06-23 2013-06-23 Unknown nullFlavo Comprehensi fd75 3172-9 Memoria 18:36:00 18:36:00 r ve Heart bce-4607-b l Care PA af3-406b7c [facility] nn 179c17 2013-06-23 2013-06-23 Unknown nullFlavo Comprehensi 87e5 d721-a Memoria 18:36:00 18:36:00 r ve Heart b21-4o15-1 l Care PA p1b-72w50w [facility] nn 4bf18f 2013-06-23 2013-06-23 Unknown nullFlavo Comprehensi 184e f372-7 Memoria 18:36:00 18:36:00 r ve Heart 90f-4ab7-9 l Care PA s35-c7j54c [facility] nn 96e7e2 2013-06-23 2013-06-23 Unknown nullFlavo Comprehensi d7bb d637-f Memoria 18:36:00 18:36:00 r ve Heart 040-4a66-b l Care PA 42e-27f1b6 [facility] nn 8d69ea 2013-06-23 2013-06-23 Unknown nullFlavo Comprehensi 4f14 799b-0 Memoria 18:36:00 18:36:00 r ve Heart ebe-4ec7-8 l Care PA 5l7-r1w288 [facility] nn 95i174 2013-06-23 2013-06-23 Unknown nullFlavo Comprehensi 7b2a 8df6-9 Memoria 18:36:00 18:36:00 r ve Heart 7w0-1041-4 l Care PA 5h0-5mb8aw [place] nn 360275 7008-10-11 2013-06-23 Unknown nullFlavo Comprehensi 797c ef06-7 Memoria 18:36:00 18:36:00 r ve Heart 414-42c5-a l Care PA 646-06e9a5 [facility] nn b562f7 2013-06-23 2013-06-23 Unknown nullFlavo Comprehensi e9f6 955c-9 Memoria 18:36:00 18:36:00 r ve Heart fde-41c8-9 l Care PA d2h-h4t4gf [facility] nn 985ebe 2013-06-23 2013-06-23 Unknown nullFlavo Comprehensi 3f22 283f-7 Memoria 18:36:00 18:36:00 r ve Heart 45b-46a2-a l Care PA 52c-e875c4 [facility] nn ccc23d 2013-06-23 2013-06-23 Unknown nullFlavo Comprehensi 3d53 90e0-9 Memoria 18:36:00 18:36:00 r ve Heart 4ab-41a6-b l Care PA ffc-8f42c8 [facility] nn 25a41e 2013-06-23 2013-06-23 Unknown nullFlavo Comprehensi 2d0e bdba-a Memoria 18:36:00 18:36:00 r ve Heart 815-4e63-a l Care PA 35a-ec22c8 [facility] nn e1e8c9 2013-06-23 2013-06-23 Unknown nullFlavo Comprehensi a046 28d8-e Memoria 18:36:00 18:36:00 r ve Heart 68a-4a47-8 l Care PA z0m-h43uq5 [facility] nn 111e13 2013-06-23 2013-06-23 Unknown nullFlavo Comprehensi b248 193f-0 Memoria 18:36:00 18:36:00 r ve Heart 018-457c-8 l Care PA cc6-3hr524 [facility] nn 7x651t 2013-06-23 2013-06-23 Unknown nullFlavo Comprehensi 4e13 e16f-e Memoria 18:36:00 18:36:00 r ve Heart x9h-99a9-o l Care PA h3c-2h991b [facility] nn 054773 2684-10-11 2013-06-23 Unknown nullFlavo Comprehensi 55b1 cb54-e Memoria 18:36:00 18:36:00 r ve Heart 821-4e53-9 l Care PA 095-v7128g [facility] nn 019771 8408-10-11 2013-06-23 Unknown nullFlavo Comprehensi 1d2f 329f-e Memoria 18:36:00 18:36:00 r ve Heart j34-9smr-x l Care PA 657-684234 [facility] nn 9644b6 2013-06-23 2013-06-23 Unknown nullFlavo Comprehensi 4f14 799b-0 Memoria 18:36:00 18:36:00 r ve Heart ebe-4ec7-8 l Care PA 3m6-g8k218 [facility] nn 96p207 2013-06-23 2013-06-23 Unknown nullFlavo Comprehensi 0864 0f64-3 Memoria 18:36:00 18:36:00 r ve Heart 1k3-3z0n-n l Care PA 9e0-bvp022 [facility] nn 3760fd 2013-06-23 2013-06-23 Unknown nullFlavo Comprehensi 1c46 1d94-1 Memoria 18:36:00 18:36:00 r ve Heart j3r-5f6z-j l Care PA o0a-706zwq [facility] nn 6oq644 2013-06-23 2013-06-23 Unknown nullFlavo Comprehensi d7bb d637-f Memoria 18:36:00 18:36:00 r ve Heart 040-4a66-b l Care PA 42e-27f1b6 [facility] nn 8d69ea 2013-06-23 2013-06-23 Unknown nullFlavo Comprehensi fd75 3172-9 Memoria 18:36:00 18:36:00 r ve Heart bce-4607-b l Care PA af3-406b7c [facility] nn 179c17 2013-06-23 2013-06-23 Unknown nullFlavo Comprehensi 184e f372-7 Memoria 18:36:00 18:36:00 r ve Heart 90f-4ab7-9 l Care PA h23-o7d59m [facility] nn 96e7e2 2013-06-23 2013-06-23 Unknown nullFlavo Comprehensi 3f22 283f-7 Memoria 18:36:00 18:36:00 r ve Heart 45b-46a2-a l Care PA 52c-e875c4 [facility] nn ccc23d 2013-06-23 2013-06-23 Unknown nullFlavo Comprehensi 87e5 d721-a Memoria 18:36:00 18:36:00 r ve Heart y96-5r99-8 l Care PA p6w-38r27m [facility] nn 4bf18f 2013-06-23 2013-06-23 Unknown nullFlavo Comprehensi 3d53 90e0-9 Memoria 18:36:00 18:36:00 r ve Heart 4ab-41a6-b l Care PA ffc-8f42c8 [facility] nn 25a41e 2013-06-23 2013-06-23 Unknown nullFlavo Comprehensi e9f6 955c-9 Memoria 18:36:00 18:36:00 r ve Heart fde-41c8-9 l Care PA y3i-g2l8ll [facility] nn 985ebe 2013-06-23 2013-06-23 Unknown nullFlavo Comprehensi 797c ef06-7 Memoria 18:36:00 18:36:00 r ve Heart 414-42c5-a l Care PA 646-06e9a5 [facility] nn b562f7 2013-06-23 2013-06-23 Unknown nullFlavo Comprehensi b524 cedc-e Memoria 18:36:00 18:36:00 r ve Heart 377-439c-a l Care PA 23b-d1289u [facility] nn 5814fb 2013-06-23 2013-06-23 Unknown nullFlavo Comprehensi a046 28d8-e Memoria 18:36:00 18:36:00 r ve Heart 68a-4a47-8 l Care PA c9n-m61wn2 [facility] nn 111e13 2013-06-23 2013-06-23 Unknown nullFlavo Comprehensi 7b2a 8df6-9 Memoria 18:36:00 18:36:00 r ve Heart 6b5-6727-2 l Care PA 6y7-1ku0pl [facility] nn 037645 6626-10-11 2013-06-23 Unknown nullFlavo Comprehensi 2d0e bdba-a Memoria 18:36:00 18:36:00 r ve Heart 815-4e63-a l Care PA 35a-ec22c8 [facility] nn e1e8c9 2013-06-23 2013-06-23 Unknown nullFlavo Comprehensi b248 193f-0 Memoria 18:36:00 18:36:00 r ve Heart 018-457c-8 l Care PA cc6-3nv091 [facility] nn 2w181q 2013-06-23 2013-06-23 Unknown nullFlavo Comprehensi 4e13 e16f-e Memoria 18:36:00 18:36:00 r ve Heart h8o-34r4-g l Care PA k5t-3r723u [facility] nn 126362 4301-10-11 2013-06-23 Unknown nullFlavo Comprehensi 55b1 cb54-e Memoria 18:36:00 18:36:00 r ve Heart 821-4e53-9 l Care PA 095-z1922a [facility] nn 070337 9453-10-11 2013-06-23 Unknown nullFlavo Comprehensi 1d2f 329f-e Memoria 18:36:00 18:36:00 r ve Heart i00-8hah-h l Care PA 657-723580 [facility] nn 9644b6 2013-06-23 2013-06-23 Unknown nullFlavo Comprehensi 4f14 799b-0 Memoria 18:36:00 18:36:00 r ve Heart ebe-4ec7-8 l Care PA 3d9-i0j263 [facility] nn 42t669 2013-06-23 2013-06-23 Unknown nullFlavo Comprehensi 0864 0f64-3 Memoria 18:36:00 18:36:00 r ve Heart 6u4-8i7o-q l Care PA 9i2-jsg845 [facility] nn 3760fd 2013-06-23 2013-06-23 Unknown nullFlavo Comprehensi 1c46 1d94-1 Memoria 18:36:00 18:36:00 r ve Heart m8w-1c9f-q l Care PA h3p-672ydq [facility] nn 4dk612 2013-06-23 2013-06-23 Unknown nullFlavo Comprehensi d7bb d637-f Memoria 18:36:00 18:36:00 r ve Heart 040-4a66-b l Care PA 42e-27f1b6 [facility] nn 8d69ea 2013-06-23 2013-06-23 Unknown nullFlavo Comprehensi fd75 3172-9 Memoria 18:36:00 18:36:00 r ve Heart bce-4607-b l Care PA af3-406b7c [facility] nn 179c17 2013-06-23 2013-06-23 Unknown nullFlavo Comprehensi 184e f372-7 Memoria 18:36:00 18:36:00 r ve Heart 90f-4ab7-9 l Care PA v33-j7d72x [facility] nn 96e7e2 2013-06-23 2013-06-23 Unknown nullFlavo Comprehensi 3f22 283f-7 Memoria 18:36:00 18:36:00 r ve Heart 45b-46a2-a l Care PA 52c-e875c4 [facility] nn ccc23d 2013-06-23 2013-06-23 Unknown nullFlavo Comprehensi 87e5 d721-a Memoria 18:36:00 18:36:00 r ve Heart b27-9p03-6 l Care PA f3f-36n78q [facility] nn 4bf18f 2013-06-23 2013-06-23 Unknown nullFlavo Comprehensi 3d53 90e0-9 Memoria 18:36:00 18:36:00 r ve Heart 4ab-41a6-b l Care PA ffc-8f42c8 [facility] nn 25a41e 2013-06-23 2013-06-23 Unknown nullFlavo Comprehensi e9f6 955c-9 Memoria 18:36:00 18:36:00 r ve Heart fde-41c8-9 l Care PA b4u-j4t1km [facility] nn 985ebe 2013-06-23 2013-06-23 Unknown nullFlavo Comprehensi 797c ef06-7 Memoria 18:36:00 18:36:00 r ve Heart 414-42c5-a l Care PA 646-06e9a5 [facility] nn b562f7 2013-06-23 2013-06-23 Unknown nullFlavo Comprehensi b524 cedc-e Memoria 18:36:00 18:36:00 r ve Heart 377-439c-a l Care PA 23b-u5842j [facility] nn 5814fb 2013-06-23 2013-06-23 Unknown nullFlavo Comprehensi a046 28d8-e Memoria 18:36:00 18:36:00 r ve Heart 68a-4a47-8 l Care PA j5l-k47vo0 [facility] nn 111e13 2013-06-23 2013-06-23 Unknown nullFlavo Comprehensi 7b2a 8df6-9 Memoria 18:36:00 18:36:00 r ve Heart 2c4-0526-5 l Care PA 5y8-1cd1zq [facility] nn 645097 4732-10-11 2013-06-23 Unknown nullFlavo Comprehensi 2d0e bdba-a Memoria 18:36:00 18:36:00 r ve Heart 815-4e63-a l Care PA 35a-ec22c8 [facility] nn e1e8c9 2013-06-23 2013-06-23 Unknown nullFlavo Comprehensi b248 193f-0 Memoria 18:36:00 18:36:00 r ve Heart 018-457c-8 l Care PA cc6-3zn459 [facility] nn 4q253t 2013-06-23 2013-06-23 Unknown nullFlavo Comprehensi 4e13 e16f-e Memoria 18:36:00 18:36:00 r ve Heart n2x-87m0-p l Care PA e1v-8z994t [facility] nn 382783 6590-10-11 2013-06-23 Outpatient Comprehen Comprehensi 2 [facility]124 [facility] 13:36:00 13:36:00 [facility] PA Care PA 2013-06-23 2013-06-23 Outpatient Comprehen Comprehensi 2 98568 eClinic 13:36:00 13:36:00 [facility]ive ve [facility] alWor nd Heart Care PA Care PA 2013-06-13 2013-06-13 Unknown nullFlavo Comprehensi ae99 40ca-2 Memoria 22:44:00 22:44:00 r ve Heart 84b-4a27-a l Care PA 2b4-267p3g [facility] nn f589e2 2013-06-13 2013-06-13 Unknown nullFlavo Comprehensi 56b5 7b87-e Memoria 22:44:00 22:44:00 r ve Heart 887-49cd-9 l Care PA 952-0054b1 [facility] nn 2n721c 2013-06-13 2013-06-13 Unknown nullFlavo Comprehensi 538c 3498-5 Memoria 22:44:00 22:44:00 r ve Heart 617-4476-9 l Care PA 23e-afd7b1 [facility] nn 44167r 2013-06-13 2013-06-13 Unknown nullFlavo Comprehensi f85b 9a63-7 Memoria 22:44:00 22:44:00 r ve Heart f1i-03j7-7 l Care PA e4z-6yym56 [facility] nn 293f08 2013-06-13 2013-06-13 Unknown nullFlavo Comprehensi 8d91 62ee-e Memoria 22:44:00 22:44:00 r ve Heart bc3-48e3-8 l Care PA fd1-103064 [facility] 0j250u 2013-06-13 2013-06-13 Unknown nullFlavo Comprehensi e4cd f5b7-a Memoria 22:44:00 22:44:00 r ve Heart i2g-0648-q l Care PA v81-i64666 [facility] nn 950827 2926-10-01 2013-06-13 Unknown nullFlavo Comprehensi bbe0 d311-b Memoria 22:44:00 22:44:00 r ve Heart e4k-6y55-8 l Care PA bc9-c0e7a9 [facility] nn f2cb65 2013-06-13 2013-06-13 Unknown nullFlavo Comprehensi 83c5 6302-f Memoria 22:44:00 22:44:00 r ve Heart 7t0-2su2-7 l Care PA dbb-e045a6 [facility] nn jiz501 2013-06-13 2013-06-13 Unknown nullFlavo Comprehensi d66b 3b66-0 Memoria 22:44:00 22:44:00 r ve Heart 0fa-437c-a l Care PA ca0-2027c7 [facility] nn 2d92a7 2013-06-13 2013-06-13 Unknown nullFlavo Comprehensi b8ab f28d-b Memoria 22:44:00 22:44:00 r ve Heart r42-4903-j l Care PA 1w9-36m9et [facility] nn a6afc3 2013-06-13 2013-06-13 Unknown nullFlavo Comprehensi abe2 f998-9 Memoria 22:44:00 22:44:00 r ve Heart shivam-4ffb-a l Care PA g6z-h2o94u [facility] nn 9fd5d1 2013-06-13 2013-06-13 Unknown nullFlavo Comprehensi 19c0 ac33-e Memoria 22:44:00 22:44:00 r ve Heart 2f4-7cd7-7 l Care PA r9i-7l7229 [facility] nn ab87f7 2013-06-13 2013-06-13 Unknown nullFlavo Comprehensi ae99 40ca-2 Memoria 22:44:00 22:44:00 r ve Heart 84b-4a27-a l Care PA 0x9-187l8b [facility] nn f589e2 2013-06-13 2013-06-13 Unknown nullFlavo Comprehensi f85b 9a63-7 Memoria 22:44:00 22:44:00 r ve Heart w6y-64s0-9 l Care PA e1d-5ype13 [facility] nn 293f08 2013-06-13 2013-06-13 Unknown nullFlavo Comprehensi 8d91 62ee-e Memoria 22:44:00 22:44:00 r ve Heart bc3-48e3-8 l Care PA fd1-080004 [facility] nn 1h201u 2013-06-13 2013-06-13 Unknown nullFlavo Comprehensi 56b5 7b87-e Memoria 22:44:00 22:44:00 r ve Heart 887-49cd-9 l Care PA 952-0054b1 [facility] nn 9a947c 2013-06-13 2013-06-13 Unknown nullFlavo Comprehensi 538c 3498-5 Memoria 22:44:00 22:44:00 r ve Heart 617-4476-9 l Care PA 23e-afd7b1 [facility] nn 86217u 2013-06-13 2013-06-13 Unknown nullFlavo Comprehensi b8ab f28d-b Memoria 22:44:00 22:44:00 r ve Heart a66-7300-s l Care PA 8g8-79y1ul [facility] nn a6afc3 2013-06-13 2013-06-13 Unknown nullFlavo Comprehensi e4cd f5b7-a Memoria 22:44:00 22:44:00 r ve Heart a2q-1361-i l Care PA r84-i77848 [facility] nn 644820 5380-10-01 2013-06-13 Unknown nullFlavo Comprehensi bbe0 d311-b Memoria 22:44:00 22:44:00 r ve Heart d4h-6c53-0 l Care PA bc9-c0e7a9 [facility] nn f2cb65 2013-06-13 2013-06-13 Unknown nullFlavo Comprehensi 19c0 ac33-e Memoria 22:44:00 22:44:00 r ve Heart 8g3-6zq2-9 l Care PA y0q-2l7935 [facility] nn ab87f7 2013-06-13 2013-06-13 Unknown nullFlavo Comprehensi abe2 f998-9 Memoria 22:44:00 22:44:00 r ve Heart shivam-4ffb-a l Care PA p5v-n0r25z [facility] nn 9fd5d1 2013-06-13 2013-06-13 Unknown nullFlavo Comprehensi 83c5 6302-f Memoria 22:44:00 22:44:00 r ve Heart 5v9-6qo2-8 l Care PA dbb-e045a6 [facility] nn usu350 2013-06-13 2013-06-13 Unknown nullFlavo Comprehensi d66b 3b66-0 Memoria 22:44:00 22:44:00 r ve Heart 0fa-437c-a l Care PA ca0-2027c7 [facility] nn 2d92a7 2013-06-13 2013-06-13 Unknown nullFlavo Comprehensi ae99 40ca-2 Memoria 22:44:00 22:44:00 r ve Heart 84b-4a27-a l Care PA 1l3-168q3c [facility] nn f589e2 2013-06-13 2013-06-13 Unknown nullFlavo Comprehensi f85b 9a63-7 Memoria 22:44:00 22:44:00 r ve Heart c6e-53a3-6 l Care PA n4f-2utj86 [facility] nn 293f08 2013-06-13 2013-06-13 Unknown nullFlavo Comprehensi 8d91 62ee-e Memoria 22:44:00 22:44:00 r ve Heart bc3-48e3-8 l Care PA fd1-573456 [facility] nn 3v355d 2013-06-13 2013-06-13 Unknown nullFlavo Comprehensi 56b5 7b87-e Memoria 22:44:00 22:44:00 r ve Heart 887-49cd-9 l Care PA 952-0054b1 [facility] nn 1r717v 2013-06-13 2013-06-13 Unknown nullFlavo Comprehensi 538c 3498-5 Memoria 22:44:00 22:44:00 r ve Heart 617-4476-9 l Care PA 23e-afd7b1 [facility] nn 55841y 2013-06-13 2013-06-13 Unknown nullFlavo Comprehensi b8ab f28d-b Memoria 22:44:00 22:44:00 r ve Heart b37-1017-p l Care PA 5x2-39y9bj [facility] nn a6afc3 2013-06-13 2013-06-13 Unknown nullFlavo Comprehensi e4cd f5b7-a Memoria 22:44:00 22:44:00 r ve Heart c4a-4522-n l Care PA e16-o29867 [facility] nn 467997 7674-10-01 2013-06-13 Unknown nullFlavo Comprehensi bbe0 d311-b Memoria 22:44:00 22:44:00 r ve Heart y7c-9y24-0 l Care PA bc9-c0e7a9 [facility] nn f2cb65 2013-06-13 2013-06-13 Unknown nullFlavo Comprehensi 19c0 ac33-e Memoria 22:44:00 22:44:00 r ve Heart 1w6-3mx7-1 l Care PA a4t-4v4749 [facility] nn ab87f7 2013-06-13 2013-06-13 Unknown nullFlavo Comprehensi abe2 f998-9 Memoria 22:44:00 22:44:00 r ve Heart shivam-4ffb-a l Care PA q6k-n6k60h [facility] nn 9fd5d1 2013-06-13 2013-06-13 Unknown nullFlavo Comprehensi 83c5 6302-f Memoria 22:44:00 22:44:00 r ve Heart 1u5-7ma0-1 l Care PA dbb-e045a6 [facility] nn axm169 2013-06-13 2013-06-13 Unknown nullFlavo Comprehensi d66b 3b66-0 Memoria 22:44:00 22:44:00 r ve Heart 0fa-437c-a l Care PA ca0-2027c7 [facility] nn 2d92a7 2013-06-13 2013-06-13 Unknown nullFlavo Comprehensi f909 8713-1 Memoria 21:44:00 21:44:00 r ve Heart i9n-07y3-k l Care PA g65-61v0e0 [facility] nn 899f62 2013-06-13 2013-06-13 Unknown nullFlavo Comprehensi ccd1 5e6c-8 Memoria 21:44:00 21:44:00 r ve Heart 409-405e-8 l Care PA p36-3148xv [facility] nn e528ee 2013-06-13 2013-06-13 Unknown nullFlavo Comprehensi afd0 32fe-8 Memoria 21:44:00 21:44:00 r ve Heart 3ef-4bb8-a l Care PA 32b-3805b3 [facility] nn ec0c0f 2013-06-13 2013-06-13 Unknown nullFlavo Comprehensi d4a9 6d7b-4 Memoria 21:44:00 21:44:00 r ve Heart 74d-4faf-9 l Care PA w64-oi4082 [facility] nn 1cfe31 2013-06-13 2013-06-13 Unknown nullFlavo Comprehensi 1148 d3c5-4 [facility]oria 21:44:00 21:44:00 r ve Heart 0d7-4q65-l l Care PA o71-9q00tm [facility] nn t7834g 2013-06-13 2013-06-13 Unknown nullFlavo Comprehensi 2bad cdd4-c [facility] 21:44:00 21:44:00 r ve Heart 75e-43ba-b l Care PA m47-924t8m Haylee nn e650fb 2013-06-13 2013-06-13 Unknown nullFlavo Comprehensi 4c8b 2b04-8 [facility] 21:44:00 21:44:00 r ve Heart x67-6252-h l Care PA [id number] Haylee nn 212c29 2013-06-13 2013-06-13 Unknown nullFlavo Comprehensi ee51 bd4f-9 [facility] 21:44:00 21:44:00 r ve Heart 632-4436-9 l Care PA s31-07sdad Haylee nn 5868ef 2013-06-13 2013-06-13 Unknown nullFlavo Comprehensi 73ff 8772-3 [facility] 21:44:00 21:44:00 r ve Heart 5e7-54fj-e l Care PA adb-449d8d Haylee nn c136e8 2013-06-13 2013-06-13 Unknown nullFlavo Comprehensi 40af 459a-7 [facility] 21:44:00 21:44:00 r ve Heart ff4-44c7-a l Care PA i28-9r7058 Haylee nn 3f2550 2013-06-13 2013-06-13 Unknown nullFlavo Comprehensi cf0e c0bf-6 [facility] 21:44:00 21:44:00 r ve Heart cc5-49e0-8 l Care PA 88e-b5bd0a Haylee nn unr715 2013-06-13 2013-06-13 Unknown nullFlavo Comprehensi df42 17fe-9 [facility] 21:44:00 21:44:00 r ve Heart 4b6-23z5-g l Care PA 149-hwd150 Haylee nn 8411d0 2013-06-13 2013-06-13 Unknown nullFlavo Comprehensi cb51 93e5-b [facility] 21:44:00 21:44:00 r ve Heart 41f-4542-b l Care PA [id number] Haylee nn 3c9d64 2013-06-13 2013-06-13 Unknown nullFlavo Comprehensi 77b3 544b-7 [facility] 21:44:00 21:44:00 r ve Heart bfe-41ba-9 l Care PA fe1-5135cb Haylee nn [id number] 2013-06-13 2013-06-13 Unknown nullFlavo Comprehensi e321 d8ee-e [facility] 21:44:00 21:44:00 r ve Heart bc2-4833-9 l Care PA 78e-536ecc Haylee nn 1f7e89 2013-06-13 2013-06-13 Unknown nullFlavo Comprehensi 1e85 193e-8 [facility] 21:44:00 21:44:00 r ve Heart 896-438a-9 l Care PA 902-500e9f Haylee nn 189045 3765-10-01 2013-06-13 Unknown nullFlavo Comprehensi d26a ccbe-5 [facility] 21:44:00 21:44:00 r ve Heart 1ec-413c-8 l Care PA s87-1ef2y7 Haylee nn ao8919 2013-06-13 2013-06-13 Unknown nullFlavo Comprehensi b93e ddc8-e [facility] 21:44:00 21:44:00 r ve Heart 185-47c9-8 l Care PA 9eb-c40af5 Haylee nn 86f5bc 2013-06-13 2013-06-13 Unknown nullFlavo Comprehensi dce1 9a9b-3 [facility] 21:44:00 21:44:00 r ve Heart 616-4b25-8 l Care PA [id number] Haylee nn ef4d9c 2013-06-13 2013-06-13 Unknown nullFlavo Comprehensi aa50 1e8d-9 [facility] 21:44:00 21:44:00 r ve Heart 3n8-3045-4 l Care PA 7w4-tz27rn Haylee nn baadb2 2013-06-13 2013-06-13 Unknown nullFlavo Comprehensi f909 8713-1 [facility] 21:44:00 21:44:00 r ve Heart v9d-80h8-d l Care PA a00-53i4l6 Haylee nn 899f62 2013-06-13 2013-06-13 Unknown nullFlavo Comprehensi ccd1 5e6c-8 [facility] 21:44:00 21:44:00 r ve Heart 409-405e-8 l Care PA s13-9100rp Haylee nn e528ee 2013-06-13 2013-06-13 Unknown nullFlavo Comprehensi 2bad cdd4-c [facility] 21:44:00 21:44:00 r ve Heart 75e-43ba-b l Care PA r53-259b9l Haylee nn e650fb 2013-06-13 2013-06-13 Unknown nullFlavo Comprehensi cf0e c0bf-6 [facility] 21:44:00 21:44:00 r ve Heart cc5-49e0-8 l Care PA 88e-b5bd0a Haylee nn mcz003 2013-06-13 2013-06-13 Unknown nullFlavo Comprehensi afd0 32fe-8 [facility] 21:44:00 21:44:00 r ve Heart 3ef-4bb8-a l Care PA 32b-3805b3 Haylee nn ec0c0f 2013-06-13 2013-06-13 Unknown nullFlavo Comprehensi d4a9 6d7b-4 [facility] 21:44:00 21:44:00 r ve Heart 74d-4faf-9 l Care PA h32-wx4760 Haylee nn 1cfe31 2013-06-13 2013-06-13 Unknown nullFlavo Comprehensi 40af 459a-7 [facility] 21:44:00 21:44:00 r ve Heart ff4-44c7-a l Care PA y44-0b4350 Haylee nn 3f6777 2013-06-13 2013-06-13 Unknown nullFlavo Comprehensi 4c8b 2b04-8 [facility] 21:44:00 21:44:00 r ve Heart g16-5028-o l Care PA 864-867df6 Haylee nn 212c29 2013-06-13 2013-06-13 Unknown nullFlavo Comprehensi 73ff 8772-3 [facility] 21:44:00 21:44:00 r ve Heart 1n1-57xe-c l Care PA adb-449d8d Haylee nn c136e8 2013-06-13 2013-06-13 Unknown nullFlavo Comprehensi e321 d8ee-e [facility] 21:44:00 21:44:00 r ve Heart bc2-4833-9 l Care PA 78e-536ecc Haylee nn 1f7e89 2013-06-13 2013-06-13 Unknown nullFlavo Comprehensi ee51 bd4f-9 [facility] 21:44:00 21:44:00 r ve Heart 632-4436-9 l Care PA f48-45rext Haylee nn 5868ef 2013-06-13 2013-06-13 Unknown nullFlavo Comprehensi 1e85 193e-8 [facility] 21:44:00 21:44:00 r ve Heart 896-438a-9 l Care PA 902-500e9f Haylee nn 710851 6984-10-01 2013-06-13 Unknown nullFlavo Comprehensi 77b3 544b-7 [facility] 21:44:00 21:44:00 r ve Heart bfe-41ba-9 l Care PA fe1-5135cb Haylee nn 47w525 2013-06-13 2013-06-13 Unknown nullFlavo Comprehensi cb51 93e5-b [facility] 21:44:00 21:44:00 r ve Heart 41f-4542-b l Care PA 7a1-52544b Haylee nn 3c9d64 2013-06-13 2013-06-13 Unknown nullFlavo Comprehensi 1148 d3c5-4 [facility] 21:44:00 21:44:00 r ve Heart 0y3-0h23-n l Care PA q26-7z29qx Haylee nn n7096y 2013-06-13 2013-06-13 Unknown nullFlavo Comprehensi b93e ddc8-e [facility] 21:44:00 21:44:00 r ve Heart 185-47c9-8 l Care PA 9eb-c40af5 [facility] nn 86f5bc 2013-06-13 2013-06-13 Unknown nullFlavo Comprehensi df42 17fe-9 [facility] 21:44:00 21:44:00 r ve Heart 0j7-38f2-k l Care PA 149-hbc552 [facility] nn 8411d0 2013-06-13 2013-06-13 Unknown nullFlavo Comprehensi d26a ccbe-5 [facility] 21:44:00 21:44:00 r ve Heart 1ec-413c-8 l Care PA b49-8gk0l1 [facility] nn lm9680 2013-06-13 2013-06-13 Unknown nullFlavo Comprehensi dce1 9a9b-3 [facility] 21:44:00 21:44:00 r ve Heart 616-4b25-8 l Care PA [id number] [facility] nn ef4d9c 2013-06-13 2013-06-13 Unknown nullFlavo Comprehensi aa50 1e8d-9 [facility] 21:44:00 21:44:00 r ve Heart 8q0-9750-4 l Care PA 4z0-tz22kq [facility] nn baadb2 2013-06-13 2013-06-13 Unknown nullFlavo Comprehensi f909 8713-1 [facility] 21:44:00 21:44:00 r ve Heart c4m-38a7-o l Care PA c64-43x3k2 [facility] [facility] nn 899f62 2013-06-13 2013-06-13 Unknown nullFlavo Comprehensi ccd1 5e6c-8 Memoria 21:44:00 21:44:00 r ve Heart 409-405e-8 l Care PA j24-2511ei [facility] nn e528ee 2013-06-13 2013-06-13 Unknown nullFlavo Comprehensi 2bad cdd4-c Memoria 21:44:00 21:44:00 r ve Heart 75e-43ba-b l Care PA v44-778s8a [facility] nn e650fb 2013-06-13 2013-06-13 Unknown nullFlavo Comprehensi cf0e c0bf-6 Memoria 21:44:00 21:44:00 r ve Heart cc5-49e0-8 l Care PA 88e-b5bd0a [facility] nn tpo652 2013-06-13 2013-06-13 Unknown nullFlavo Comprehensi afd0 32fe-8 Memoria 21:44:00 21:44:00 r ve Heart 3ef-4bb8-a l Care PA 32b-3805b3 [facility] nn ec0c0f 2013-06-13 2013-06-13 Unknown nullFlavo Comprehensi d4a9 6d7b-4 Memoria 21:44:00 21:44:00 r ve Heart 74d-4faf-9 l Care PA o26-ds1808 [facility] nn 1cfe31 2013-06-13 2013-06-13 Unknown nullFlavo Comprehensi 40af 459a-7 Memoria 21:44:00 21:44:00 r ve Heart ff4-44c7-a l Care PA l48-0b3101 [facility] nn 8v4505 2013-06-13 2013-06-13 Unknown nullFlavo Comprehensi 4c8b 2b04-8 Memoria 21:44:00 21:44:00 r ve Heart i08-2449-a l Care PA 864-867df6 [facility] nn 212c29 2013-06-13 2013-06-13 Unknown nullFlavo Comprehensi 73ff 8772-3 Memoria 21:44:00 21:44:00 r ve Heart 0x7-44ev-q l Care PA adb-449d8d [facility] nn c136e8 2013-06-13 2013-06-13 Unknown nullFlavo Comprehensi e321 d8ee-e Memoria 21:44:00 21:44:00 r ve Heart bc2-4833-9 l Care PA 78e-536ecc [facility] nn 1f7e89 2013-06-13 2013-06-13 Unknown nullFlavo Comprehensi ee51 bd4f-9 Memoria 21:44:00 21:44:00 r ve Heart 632-4436-9 l Care PA i56-94cvcq [facility] nn 5868ef 2013-06-13 2013-06-13 Unknown nullFlavo Comprehensi 1e85 193e-8 Memoria 21:44:00 21:44:00 r ve Heart 896-438a-9 l Care PA 902-500e9f [facility] nn 306430 0163-10-01 2013-06-13 Unknown nullFlavo Comprehensi 77b3 544b-7 [facility] 21:44:00 21:44:00 r ve Heart bfe-41ba-9 l Care PA fe1-5135cb [facility] nn 98h639 2013-06-13 2013-06-13 Unknown nullFlavo Comprehensi cb51 93e5-b Memoria 21:44:00 21:44:00 r ve Heart 41f-4542-b l Care PA 8h7-94196n [facility] nn 3c9d64 2013-06-13 2013-06-13 Unknown nullFlavo Comprehensi 1148 d3c5-4 Memoria 21:44:00 21:44:00 r ve Heart 2r4-2o15-i l Care PA g52-7q65py [facility] nn z3576k 2013-06-13 2013-06-13 Unknown nullFlavo Comprehensi b93e ddc8-e Memoria 21:44:00 21:44:00 r ve Heart 185-47c9-8 l Care PA 9eb-c40af5 [facility] nn 86f5bc 2013-06-13 2013-06-13 Unknown nullFlavo Comprehensi df42 17fe-9 Memoria 21:44:00 21:44:00 r ve Heart 8j7-26c1-z l Care PA 149-xyt379 [facility] nn 8411d0 2013-06-13 2013-06-13 Unknown nullFlavo Comprehensi d26a ccbe-5 Memoria 21:44:00 21:44:00 r ve Heart 1ec-413c-8 l Care PA h76-1vx3q5 [facility] nn yw4056 2013-06-13 2013-06-13 Unknown nullFlavo Comprehensi dce1 9a9b-3 Memoria 21:44:00 21:44:00 r ve Heart 616-4b25-8 l Care PA 836-397138 [facility] nn ef4d9c 2013-06-13 2013-06-13 Unknown nullFlavo Comprehensi aa50 1e8d-9 Memoria 21:44:00 21:44:00 r ve Heart 6r3-7561-8 l Care PA 6u7-fe15si [facility] nn baadb2 2013-06-13 2013-06-13 Outpatient Comprehen Comprehensi [facility] 88791 [facility]inic 16:44:00 16:44:00 sive ve [facility]or nd Heart Care PA Care PA 2013-06-13 2013-06-13 Outpatient Comprehen Comprehensi 2 15647 eClinic 16:44:00 16:44:00 sive ve Heart alWor nd Heart Care PA Care PA 2013-05-23 2013-05-23 Unknown nullFlavo Comprehensi 7d40 a3de-f Memoria 21:00:00 21:00:00 r ve Heart 374-4a9f-b l Care PA w3p-yr551z [facility] nn ee5f15 2013-05-23 2013-05-23 Unknown nullFlavo Comprehensi 64ee c0fd-1 Memoria 21:00:00 21:00:00 r ve Heart eca-47eb-b l Care PA 98d-7d8d08 [facility] nn 24bfe9 2013-05-23 2013-05-23 Unknown nullFlavo Comprehensi 639d df4b-d Memoria 21:00:00 21:00:00 r ve Heart 9o2-1wl8-5 l Care PA m92-w061o8 [facility] nn 5b5a56 2013-05-23 2013-05-23 Unknown nullFlavo Comprehensi 4efe 6a06-c Memoria 21:00:00 21:00:00 r ve Heart g47-5x46-7 l Care PA o46-fhu2v8 [facility] nn b52406 2013-05-23 2013-05-23 Unknown nullFlavo Comprehensi b99a d9ea-4 Memoria 21:00:00 21:00:00 r ve Heart 5u2-8428-7 l Care PA 903-dc70d5 [facility] nn b7b57d 2013-05-23 2013-05-23 Unknown nullFlavo Comprehensi 517c 6ebc-7 Memoria 21:00:00 21:00:00 r ve Heart w74-0g43-4 l Care PA 3fe-b5bf07 [facility] nn kb0560 2013-05-23 2013-05-23 Unknown nullFlavo Comprehensi f909 b02c-8 Memoria 21:00:00 21:00:00 r ve Heart 1ab-4338-b l Care PA 593-0849b3 [facility] nn 131fcd 2013-05-23 2013-05-23 Unknown nullFlavo Comprehensi 7c01 aa63-e Memoria 21:00:00 21:00:00 r ve Heart 531-4dd4-9 l Care PA 7q2-yb63wi [facility] nn 5cd09e 2013-05-23 2013-05-23 Unknown nullFlavo Comprehensi 2222 9101-6 Memoria 21:00:00 21:00:00 r ve Heart 58d-4634-8 l Care PA 64d-636eb6 [facility] nn 8n6094 2013-05-23 2013-05-23 Unknown nullFlavo Comprehensi 47af 7922-e Memoria 21:00:00 21:00:00 r ve Heart 09c-4d29-8 l Care PA 4ba-02f6ca [facility] nn 71232s 2013-05-23 2013-05-23 Unknown nullFlavo Comprehensi d925 f505-a Memoria 21:00:00 21:00:00 r ve Heart 84a-4d97-a l Care PA 3be-598ad1 [facility] nn e83ab4 2013-05-23 2013-05-23 Unknown nullFlavo Comprehensi 84d7 7e94-e Memoria 21:00:00 21:00:00 r ve Heart 945-4e5e-8 l Care PA cf6-6740d9 [facility] nn a3a9b0 2013-05-23 2013-05-23 Unknown nullFlavo Comprehensi 7d40 a3de-f Memoria 21:00:00 21:00:00 r ve Heart 374-4a9f-b l Care PA x3h-fy442h [facility] nn ee5f15 2013-05-23 2013-05-23 Unknown nullFlavo Comprehensi 4efe 6a06-c Memoria 21:00:00 21:00:00 r ve Heart b52-3s22-4 l Care PA t00-dwu8e8 [facility] nn k90443 2013-05-23 2013-05-23 Unknown nullFlavo Comprehensi b99a d9ea-4 Memoria 21:00:00 21:00:00 r ve Heart 6i8-7358-2 l Care PA 903-dc70d5 [facility] nn b7b57d 2013-05-23 2013-05-23 Unknown nullFlavo Comprehensi 64ee c0fd-1 Mem[facility] 21:00:00 21:00:00 r ve Heart eca-47eb-b l Care PA 98d-7d8d08 [facility] nn 24bfe9 2013-05-23 2013-05-23 Unknown nullFlavo Comprehensi 639d df4b-d Memoria 21:00:00 21:00:00 r ve Heart 3r8-6be2-2 l Care PA v97-w304z6 [facility] nn 5b5a56 2013-05-23 2013-05-23 Unknown nullFlavo Comprehensi 47af 7922-e Memoria 21:00:00 21:00:00 r ve Heart 09c-4d29-8 l Care PA 4ba-02f6ca [facility] nn 72866a 2013-05-23 2013-05-23 Unknown nullFlavo Comprehensi 517c 6ebc-7 Memoria 21:00:00 21:00:00 r ve Heart f27-8w47-1 l Care PA 3fe-b5bf07 [facility] nn kr0508 2013-05-23 2013-05-23 Unknown nullFlavo Comprehensi f909 b02c-8 [...] r ve Heart 531-4dd4-9 l Care PA 7l5-gi16mp [facility] nn 5cd09e 2013-05-23 2013-05-23 Unknown nullFlavo Comprehensi 2222 9101-6 Memoria 21:00:00 21:00:00 r ve Heart 58d-4634-8 l Care PA 64d-636eb6 [facility] nn 7d0087 2013-05-23 2013-05-23 Unknown nullFlavo Comprehensi 7d40 a3de-f Memoria 21:00:00 21:00:00 r ve Heart 374-4a9f-b l Care PA q9i-wc193i [facility] nn ee5f15 2013-05-23 2013-05-23 Unknown nullFlavo Comprehensi 4efe 6a06-c Memoria 21:00:00 21:00:00 r ve Heart w78-5w40-0 l Care PA p47-lez5k4 [facility] nn i45390 2013-05-23 2013-05-23 Unknown nullFlavo Comprehensi b99a d9ea-4 Memoria 21:00:00 21:00:00 r ve Heart 1w4-0212-4 l Care PA 903-dc70d5 [facility] nn b7b57d 2013-05-23 2013-05-23 Unknown nullFlavo Comprehensi 64ee c0fd-1 Memoria 21:00:00 21:00:00 r ve Heart eca-47eb-b l Care PA 98d-7d8d08 [facility] nn 24bfe9 2013-05-23 2013-05-23 Unknown nullFlavo Comprehensi 639d df4b-d Memoria 21:00:00 21:00:00 r ve Heart 6j0-8rg6-6 l Care PA d61-h598g5 [facility] nn 5b5a56 2013-05-23 2013-05-23 Unknown nullFlavo Comprehensi 47af 7922-e Memoria 21:00:00 21:00:00 r ve Heart 09c-4d29-8 l Care PA 4ba-02f6ca [facility] nn 92642a 2013-05-23 2013-05-23 Unknown nullFlavo Comprehensi 517c 6ebc-7 Memoria 21:00:00 21:00:00 r ve Heart h30-7l87-1 l Care PA 3fe-b5bf07 [facility] nn hl6505 2013-05-23 2013-05-23 Unknown nullFlavo Comprehensi f909 b02c-8 [...] r ve Heart 531-4dd4-9 l Care PA 6g6-bv68ot [facility] nn 5cd09e 2013-05-23 2013-05-23 Unknown nullFlavo Comprehensi 2222 9101-6 Memoria 21:00:00 21:00:00 r ve Heart 58d-4634-8 l Care PA 64d-636eb6 [facility] nn 4q1504 2013-05-23 2013-05-23 Unknown nullFlavo Comprehensi b004 251c-6 Memoria 20:00:00 20:00:00 r ve Heart t2c-7w32-q l Care PA ff6-66a86b [facility] nn 8p5807 2013-05-23 2013-05-23 Unknown nullFlavo Comprehensi 0b8c 4427-5 Memoria 20:00:00 20:00:00 r ve Heart 85d-449f-8 l Care PA 49a-8ae07a [facility] nn 38accb 2013-05-23 2013-05-23 Unknown nullFlavo Comprehensi 9074 f5f1-6 Memoria 20:00:00 20:00:00 r ve Heart ec1-4d1d-8 l Care PA 8d5-e8572q [facility] nn k5492s 2013-05-23 2013-05-23 Unknown nullFlavo Comprehensi f321 8c3a-c Memoria 20:00:00 20:00:00 r ve Heart 709-458a-a l Care PA 7w3-s414a8 [facility] nn 8761f4 2013-05-23 2013-05-23 Unknown nullFlavo Comprehensi b0eb 95c3-e Memoria 20:00:00 20:00:00 r ve Heart 2t4-25c3-2 l Care PA 250-b162dd [facility] nn 0sx349 2013-05-23 2013-05-23 Unknown nullFlavo Comprehensi 61a8 a49f-4 Memoria 20:00:00 20:00:00 r ve Heart 8fd-4a07-b l Care PA 9y0-055712 [facility] nn 569cde 2013-05-23 2013-05-23 Unknown nullFlavo Comprehensi 2c72 e082-6 Memoria 20:00:00 20:00:00 r ve Heart ed3-4b5c-8 l Care PA x98-v24209 [facility] nn 012445 4113-09-10 2013-05-23 Unknown nullFlavo Comprehensi be5f 33c6-d Memoria 20:00:00 20:00:00 r ve Heart ea1-4233-b l Care PA 6f7-2c5m9i [facility] nn 64r539 2013-05-23 2013-05-23 Unknown nullFlavo Comprehensi 2a83 7c33-a Memoria 20:00:00 20:00:00 r ve Heart g4h-5i3a-5 l Care PA 77f-812dd1 [facility] nn 08678v 2013-05-23 2013-05-23 Unknown nullFlavo Comprehensi 0556 2db3-5 Memoria 20:00:00 20:00:00 r ve Heart 38b-4faf-b l Care PA 47c-0uj701 [facility] nn tm439n 2013-05-23 2013-05-23 Unknown nullFlavo Comprehensi 4a57 c411-6 Memoria 20:00:00 20:00:00 r ve Heart g46-3356-t l Care PA 629-a88bf5 [facility] nn 185f5a 2013-05-23 2013-05-23 Unknown nullFlavo Comprehensi 4a16 def2-b [facility]oria 20:00:00 20:00:00 r ve Heart 9p6-764i-0 l Care PA 9b1-gr372p [facility] nn d4f1cf 2013-05-23 2013-05-23 Unknown nullFlavo Comprehensi 77a2 8a26-8 Memoria 20:00:00 20:00:00 r ve Heart q76-4129-3 l Care PA 7t2-900ki7 [facility] nn 1d01c1 2013-05-23 2013-05-23 Unknown nullFlavo Comprehensi 7464 e14b-5 Memoria 20:00:00 20:00:00 r ve Heart 03a-454b-8 l Care PA db8-41b50e [facility] nn 0iz781 2013-05-23 2013-05-23 Unknown nullFlavo Comprehensi 412a 14c0-f Memoria 20:00:00 20:00:00 r ve Heart 7w8-6180-0 l Care PA 025-8b0b29 [facility] nn 201248 5345-09-10 2013-05-23 Unknown nullFlavo Comprehensi 0a74 962b-b Memoria 20:00:00 20:00:00 r ve Heart 0ee-4033-9 l Care PA 395-2d9a4d [facility] nn ae18e3 2013-05-23 2013-05-23 Unknown nullFlavo Comprehensi 48f6 66ce-a Memoria 20:00:00 20:00:00 r ve Heart v22-33hy-9 l Care PA 588-b061dd [facility] nn 78a7d0 2013-05-23 2013-05-23 Unknown nullFlavo Comprehensi 9fd5 6f6c-5 Memoria 20:00:00 20:00:00 r ve Heart 824-4352-9 l Care PA 413-b80ce1 [facility] nn 0ff2f5 2013-05-23 2013-05-23 Unknown nullFlavo Comprehensi f321 8c3a-c Memoria 20:00:00 20:00:00 r ve Heart 709-458a-a l Care PA 2e3-c182k1 [facility] nn 8761f4 2013-05-23 2013-05-23 Unknown nullFlavo Comprehensi 2a83 7c33-a Memoria 20:00:00 20:00:00 r ve Heart z9j-7b3v-0 l Care PA 77f-812dd1 [facility] nn 89412l 2013-05-23 2013-05-23 Unknown nullFlavo Comprehensi b004 251c-6 Memoria 20:00:00 20:00:00 r ve Heart e9s-1u96-d l Care PA ff6-66a86b [facility] nn 6s9249 2013-05-23 2013-05-23 Unknown nullFlavo Comprehensi 0b8c 4427-5 Memoria 20:00:00 20:00:00 r ve Heart 85d-449f-8 l Care PA 49a-8ae07a [facility] nn 38accb 2013-05-23 2013-05-23 Unknown nullFlavo Comprehensi be5f 33c6-d Memoria 20:00:00 20:00:00 r ve Heart ea1-4233-b l Care PA 3u6-1f4m6s [facility] nn 85s567 2013-05-23 2013-05-23 Unknown nullFlavo Comprehensi b0eb 95c3-e Memoria 20:00:00 20:00:00 r ve Heart 1k6-27b4-5 l Care PA 250-b162dd [facility] nn 9ln927 2013-05-23 2013-05-23 Unknown nullFlavo Comprehensi 2c72 e082-6 Memoria 20:00:00 20:00:00 r ve Heart ed3-4b5c-8 l Care PA a33-c08309 [facility] nn 168118 7334-09-10 2013-05-23 Unknown nullFlavo Comprehensi 77a2 8a26-8 Memoria 20:00:00 20:00:00 r ve Heart s90-7857-4 l Care PA 2c5-677go5 [facility] nn 1d01c1 2013-05-23 2013-05-23 Unknown nullFlavo Comprehensi 61a8 a49f-4 Memoria 20:00:00 20:00:00 r ve Heart 8fd-4a07-b l Care PA 0a4-767212 [facility] nn 569cde 2013-05-23 2013-05-23 Unknown nullFlavo Comprehensi 7464 e14b-5 Memoria 20:00:00 20:00:00 r ve Heart 03a-454b-8 l Care PA db8-41b50e [facility] nn 2hq270 2013-05-23 2013-05-23 Unknown nullFlavo Comprehensi 4a16 def2-b Memoria 20:00:00 20:00:00 r ve Heart 1k6-799n-6 l Care PA 8j6-an197j [facility] nn d4f1cf 2013-05-23 2013-05-23 Unknown nullFlavo Comprehensi 4a57 c411-6 Memoria 20:00:00 20:00:00 r ve Heart r92-4974-w l Care PA 629-a88bf5 [facility] nn 185f5a 2013-05-23 2013-05-23 Unknown nullFlavo Comprehensi 9074 f5f1-6 Memoria 20:00:00 20:00:00 r ve Heart ec1-4d1d-8 l Care PA 7w1-j7870w [facility] nn v1220a 2013-05-23 2013-05-23 Unknown nullFlavo Comprehensi 0a74 962b-b Memoria 20:00:00 20:00:00 r ve Heart 0ee-4033-9 l Care PA 395-2d9a4d [facility] nn ae18e3 2013-05-23 2013-05-23 Unknown nullFlavo Comprehensi 0556 2db3-5 Memoria 20:00:00 20:00:00 r ve Heart 38b-4faf-b l Care PA 47c-9jm282 [facility] nn xj909i 2013-05-23 2013-05-23 Unknown nullFlavo Comprehensi 412a 14c0-f Memoria 20:00:00 20:00:00 r ve Heart 1a6-9392-4 l Care PA 025-8b0b29 [facility] nn 315312 8718-09-10 2013-05-23 Unknown nullFlavo Comprehensi 48f6 66ce-a [facility] 20:00:00 20:00:00 r ve Heart j30-80xq-4 l Care PA 588-b061dd [facility] nn 78a7d0 2013-05-23 2013-05-23 Unknown nullFlavo Comprehensi 9fd5 6f6c-5 Memoria 20:00:00 20:00:00 r ve Heart 824-4352-9 l Care PA 413-b80ce1 [facility] nn 0ff2f5 2013-05-23 2013-05-23 Unknown nullFlavo Comprehensi f321 8c3a-c Memoria 20:00:00 20:00:00 r ve Heart 709-458a-a l Care PA 2z7-f423u4 [facility] nn 8761f4 2013-05-23 2013-05-23 Unknown nullFlavo Comprehensi 2a83 7c33-a Memoria 20:00:00 20:00:00 r ve Heart q1u-2j1y-1 l Care PA 77f-812dd1 [facility] nn 73069d 2013-05-23 2013-05-23 Unknown nullFlavo Comprehensi b004 251c-6 [facility] 20:00:00 20:00:00 r ve Heart k7n-0w93-q l Care PA ff6-66a86b [facility] nn 2b5004 2013-05-23 2013-05-23 Unknown nullFlavo Comprehensi 0b8c 4427-5 Mem[facility] 20:00:00 20:00:00 r ve Heart 85d-449f-8 l Care PA 49a-8ae07a [facility] nn 38accb 2013-05-23 2013-05-23 Unknown nullFlavo Comprehensi be5f 33c6-d [facility] 20:00:00 20:00:00 r ve Heart ea1-4233-b l Care PA 2u6-7s8p8v [facility] nn 00h444 2013-05-23 2013-05-23 Unknown nullFlavo Comprehensi b0eb 95c3-e Memoria 20:00:00 20:00:00 r ve Heart 4u4-01k6-8 l Care PA 250-b162dd [facility] nn 8rh894 2013-05-23 2013-05-23 Unknown nullFlavo Comprehensi 2c72 e082-6 [facility]oria 20:00:00 20:00:00 r ve Heart ed3-4b5c-8 l Care PA d71-k49615 [facility] nn 308328 9218-09-10 2013-05-23 Unknown nullFlavo Comprehensi 77a2 8a26-8 Memoria 20:00:00 20:00:00 r ve Heart a57-8495-4 l Care PA 1s1-323df3 [facility] nn 1d01c1 2013-05-23 2013-05-23 Unknown nullFlavo Comprehensi 61a8 a49f-4 Memoria 20:00:00 20:00:00 r ve Heart 8fd-4a07-b l Care PA 5z2-084305 [facility] nn 569cde 2013-05-23 2013-05-23 Unknown nullFlavo Comprehensi 7464 e14b-5 Memoria 20:00:00 20:00:00 r ve Heart 03a-454b-8 l Care PA db8-41b50e [facility] nn 5oo729 2013-05-23 2013-05-23 Unknown nullFlavo Comprehensi 4a16 def2-b Mem[facility] 20:00:00 20:00:00 r ve Heart 6a6-016g-9 l Care PA 2x8-wz967w [facility] nn d4f1cf 2013-05-23 2013-05-23 Unknown nullFlavo Comprehensi 4a57 c411-6 Mem[facility] 20:00:00 20:00:00 r ve Heart g30-6127-c l Care PA 629-a88bf5 [facility] nn 185f5a 2013-05-23 2013-05-23 Unknown nullFlavo Comprehensi 9074 f5f1-6 Memoria 20:00:00 20:00:00 r ve Heart ec1-4d1d-8 l Care PA 8d5-l3839c [facility] nn z7613s 2013-05-23 2013-05-23 Unknown nullFlavo Comprehensi 0a74 962b-b Memoria 20:00:00 20:00:00 r ve Heart 0ee-4033-9 l Care PA 395-2d9a4d [facility] nn ae18e3 2013-05-23 2013-05-23 Unknown nullFlavo Comprehensi 0556 2db3-5 Mem[facility] 20:00:00 20:00:00 r ve Heart 38b-4faf-b l Care PA 47c-8dl972 [facility] nn vy316w 2013-05-23 2013-05-23 Unknown nullFlavo Comprehensi 412a 14c0-f Mem[facility] 20:00:00 20:00:00 r ve Heart 9m9-0699-4 l Care PA 025-8b0b29 [facility] nn 106997 4529-09-10 2013-05-23 Unknown nullFlavo Comprehensi 48f6 66ce-a Mem[facility] 20:00:00 20:00:00 r ve Heart k01-30kk-6 l Care PA 588-b061dd [facility] nn 78a7d0 2013-05-23 2013-05-23 Unknown nullFlavo Comprehensi 9fd5 6f6c-5 Memoria 20:00:00 20:00:00 r ve Heart 824-4352-9 l Care PA 413-b80ce1 [facility] nn 0ff2f5 2013-05-23 2013-05-23 Outpatient Comprehen Comprehensi 2 37932 [facility]Clinic 15:00:00 15:00:[facility] 2013-05-23 2013-05-23 Outpatient Comprehen Comprehensi 2 50846 eClinic 15:00:00 15:00[facility] 2013-02-23 2013-02-23 Unknown nullFlavo Comprehensi ab98 702d-0 Memoria 20:01:00 20:01:00 r ve Heart 1q0-16ly-7 l Care PA 80f-7440b9 [facility] nn a99f6d 2013-02-23 2013-02-23 Unknown nullFlavo Comprehensi 318a 68f6-1 Memoria 20:01:00 20:01:00 r ve Heart g3f-3j9j-1 l Care PA 7l1-564y9o [facility] nn 4ui039 2013-02-23 2013-02-23 Unknown nullFlavo Comprehensi f2a6 cfb5-4 Memoria 20:01:00 20:01:00 r ve Heart 486-4a4d-8 l Care PA n78-u96299 [facility] nn 11245m 2013-02-23 2013-02-23 Unknown nullFlavo Comprehensi 5181 0dbe-5 Memoria 20:01:00 20:01:00 r ve Heart 9s5-8763-z l Care PA dd5-af1f52 [facility] nn f18e6b 2013-02-23 2013-02-23 Unknown nullFlavo Comprehensi 3d74 572a-f Memoria 20:01:00 20:01:00 r ve Heart 6a6-8563-4 l Care PA 97c-1c6ac3 [facility] nn 781a81 2013-02-23 2013-02-23 Unknown nullFlavo Comprehensi 0569 69be-a Memoria 20:01:00 20:01:00 r ve Heart 434-421d-8 l Care PA c6c-o48s7q [facility] nn 840406 9060-06-13 2013-02-23 Unknown nullFlavo Comprehensi 849f b105-a Memoria 20:01:00 20:01:00 r ve Heart naveed-4c45-8 l Care PA ea9-01u304 [facility] nn 6fd0c8 2013-02-23 2013-02-23 Unknown nullFlavo Comprehensi c544 fe27-3 Memoria 20:01:00 20:01:00 r ve Heart 1da-4fa2-9 l Care PA b9o-i38402 [facility] nn 73l063 2013-02-23 2013-02-23 Unknown nullFlavo Comprehensi 42a6 b9bf-a Memoria 20:01:00 20:01:00 r ve Heart 8t7-066u-2 l Care PA 413-8549cf [facility] nn 64f3ec 2013-02-23 2013-02-23 Unknown nullFlavo Comprehensi 5f00 8fe9-8 Memoria 20:01:00 20:01:00 r ve Heart g80-96e8-9 l Care PA 4f9-2vs1yj [facility] nn r6c766 2013-02-23 2013-02-23 Unknown nullFlavo Comprehensi 3ef4 3fbd-4 Memoria 20:01:00 20:01:00 r ve Heart 063-4e7b-9 l Care PA s82-312g31 [facility] nn 29900a 2013-02-23 2013-02-23 Unknown nullFlavo Comprehensi d8e4 5e21-0 Memoria 20:01:00 20:01:00 r ve Heart 8o9-8574-o l Care PA 5cd-5cd58c [facility] nn 7d31f8 2013-02-23 2013-02-23 Unknown nullFlavo Comprehensi ab98 702d-0 Memoria 20:01:00 20:01:00 r ve Heart 9v6-43bf-7 l Care PA 80f-7440b9 [facility] nn a99f6d 2013-02-23 2013-02-23 Unknown nullFlavo Comprehensi 5181 0dbe-5 Memoria 20:01:00 20:01:00 r ve Heart 6k9-7889-z l Care PA dd5-af1f52 [facility] nn f18e6b 2013-02-23 2013-02-23 Unknown nullFlavo Comprehensi 3d74 572a-f Mem[facility] 20:01:00 20:01:00 r ve Heart 3f8-6256-1 l Care PA 97c-1c6ac3 Haylee nn 781a81 2013-02-23 2013-02-23 Unknown nullFlavo Comprehensi 318a 68f6-1 Memoria 20:01:00 20:01:00 r ve Heart y5r-2w9q-5 l Care PA 2j8-271q4b Haylee nn 8hq884 2013-02-23 2013-02-23 Unknown nullFlavo Comprehensi f2a6 cfb5-4 [facility]oria 20:01:00 20:01:00 r ve Heart 486-4a4d-8 l Care PA [id number]-q68656 Haylee nn 46277w 2013-02-23 2013-02-23 Unknown nullFlavo Comprehensi 5f00 8fe9-8 Memoria 20:01:00 20:01:00 r ve Heart d61-11s6-8 l Care PA 7f4-3la0wd Haylee nn j4g999 2013-02-23 2013-02-23 Unknown nullFlavo Comprehensi 0569 69be-a Memoria 20:01:00 20:01:00 r ve Heart 434-421d-8 l Care PA y5z-l26h2s Haylee nn 415750 1402-06-13 2013-02-23 Unknown nullFlavo Comprehensi 849f b105-a Memoria 20:01:00 20:01:00 r ve Heart naveed-4c45-8 l Care PA ea9-04k283 Haylee nn 6fd0c8 2013-02-23 2013-02-23 Unknown nullFlavo Comprehensi d8e4 5e21-0 Memoria 20:01:00 20:01:00 r ve Heart 9q9-1140-e l Care PA 5cd-5cd58c Haylee nn 7d31f8 2013-02-23 2013-02-23 Unknown nullFlavo Comprehensi 3ef4 3fbd-4 Memoria 20:01:00 20:01:00 r ve Heart 063-4e7b-9 l Care PA p23-030x60 Haylee nn 77571e 2013-02-23 2013-02-23 Unknown nullFlavo Comprehensi c544 fe27-3 Memoria 20:01:00 20:01:00 r ve Heart 1da-4fa2-9 l Care PA [id number]-x88253 [facility] nn 03k361 2013-02-23 2013-02-23 Unknown nullFlavo Comprehensi 42a6 b9bf-a Memoria 20:01:00 20:01:00 r ve Heart 8o5-104b-4 l Care PA 413-8549cf Haylee nn 64f3ec 2013-02-23 2013-02-23 Unknown nullFlavo Comprehensi ab98 702d-0 Memoria 20:01:00 20:01:00 r ve Heart 5e6-55mk-5 l Care PA [id number]-[id number] [facility] nn a99f6d 2013-02-23 2013-02-23 Unknown nullFlavo Comprehensi 5181 0dbe-5 Memoria 20:01:00 20:01:00 r ve Heart 7p3-4689-a l Care PA dd5-af1f52 Haylee nn f18e6b 2013-02-23 2013-02-23 Unknown nullFlavo Comprehensi 3d74 572a-f Memoria 20:01:00 20:01:00 r ve Heart 8y3-0295-5 l Care PA 97c-1c6ac3 Haylee nn 781a81 2013-02-23 2013-02-23 Unknown nullFlavo Comprehensi 318a 68f6-1 Memoria 20:01:00 20:01:00 r ve Heart b3h-6m5k-3 l Care PA 4l0-626j9p Haylee nn 3gi701 2013-02-23 2013-02-23 Unknown nullFlavo Comprehensi f2a6 cfb5-4 Memoria 20:01:00 20:01:00 r ve Heart 486-4a4d-8 l Care PA [id number]-d39385 Haylee nn 24170k 2013-02-23 2013-02-23 Unknown nullFlavo Comprehensi 5f00 8fe9-8 Memoria 20:01:00 20:01:00 r ve Heart q88-85i5-1 l Care PA 7m5-7fb4wv Haylee nn i3a333 2013-02-23 2013-02-23 Unknown nullFlavo Comprehensi 0569 69be-a [facility]oria 20:01:00 20:01:00 r ve Heart 434-421d-8 l Care PA m4z-i51r7i Haylee nn 106232 7123-06-13 2013-02-23 Unknown nullFlavo Comprehensi 849f b105-a Memoria 20:01:00 20:01:00 r ve Heart naveed-4c45-8 l Care PA ea9-46n394 Haylee nn 6fd0c8 2013-02-23 2013-02-23 Unknown nullFlavo Comprehensi d8e4 5e21-0 Memoria 20:01:00 20:01:00 r ve Heart 6p4-8726-m l Care PA 5cd-5cd58c Haylee nn 7d31f8 2013-02-23 2013-02-23 Unknown nullFlavo Comprehensi 3ef4 3fbd-4 Memoria 20:01:00 20:01:00 r ve Heart 063-4e7b-9 l Care PA b50-257s71 Haylee nn 72664v 2013-02-23 2013-02-23 Unknown nullFlavo Comprehensi c544 fe27-3 Memoria 20:01:00 20:01:00 r ve Heart 1da-4fa2-9 l Care PA [id number]-[id number] Haylee nn 78i742 2013-02-23 2013-02-23 Unknown nullFlavo Comprehensi 42a6 b9bf-a Memoria 20:01:00 20:01:00 r ve Heart 8r8-695q-6 l Care PA 413-8549cf Haylee nn 64f3ec 2013-02-23 2013-02-23 Unknown nullFlavo Comprehensi 5b8a 360b-b Memoria 19:01:00 19:01:00 r ve Heart 401-4ee0-9 l Care PA [id number] [facility] nn ce88dd 2013-02-23 2013-02-23 Unknown nullFlavo Comprehensi 9715 42f2-7 Memoria 19:01:00 19:01:00 r ve Heart 387-43b4-a l Care PA [id number] [facility] nn 29s690 2013-02-23 2013-02-23 Unknown nullFlavo Comprehensi d155 6317-c Memoria 19:01:00 19:01:00 r ve Heart ec5-438e-b l Care PA fa0-4a3bc0 [facility] nn 0bc9e4 2013-02-23 2013-02-23 Unknown nullFlavo Comprehensi 0c06 9664-f Memoria 19:01:00 19:01:00 r ve Heart ccc-4a8f-8 l Care PA 516-f93aac [facility] nn 130ad8 2013-02-23 2013-02-23 Unknown nullFlavo Comprehensi f8ed 76ca-4 Memoria 19:01:00 19:01:00 r ve Heart s52-4kk9-5 l Care PA 11b-c07cca [facility] nn 14g620 2013-02-23 2013-02-23 Unknown nullFlavo Comprehensi 0f66 ab56-5 Memoria 19:01:00 19:01:00 r ve Heart 9de-4a5c-a l Care PA 0db-cbf5b1 [facility] nn o3899a 2013-02-23 2013-02-23 Unknown nullFlavo Comprehensi 6aed c802-9 Memoria 19:01:00 19:01:00 r ve Heart bdb-4262-8 l Care PA 618-f46c4c [facility] nn 6a64cd 2013-02-23 2013-02-23 Unknown nullFlavo Comprehensi 0b87 ebf6-8 Memoria 19:01:00 19:01:00 r ve Heart 0q3-245v-7 l Care PA 3b1-158ty4 [facility] nn f8955o 2013-02-23 2013-02-23 Unknown nullFlavo Comprehensi e61f c7d6-9 Memoria 19:01:00 19:01:00 r ve Heart z2u-5935-0 l Care PA ae5-349b12 Haylee nn fc9c1b 2013-02-23 2013-02-23 Unknown nullFlavo Comprehensi dd2f f0ec-9 Memoria 19:01:00 19:01:00 r ve Heart 4b4-7490-t l Care PA a13-847k51 [facility] nn ccd4ce 2013-02-23 2013-02-23 Unknown nullFlavo Comprehensi 955f c9b7-f Memoria 19:01:00 19:01:00 r ve Heart 569-4b47-9 l Care PA s11-w32460 [facility] nn 1b8c0d 2013-02-23 2013-02-23 Unknown nullFlavo Comprehensi 129a 917a-2 Memoria 19:01:00 19:01:00 r ve Heart 7j4-9z00-v l Care PA 3db-bccce7 [facility] nn a1eb51 2013-02-23 2013-02-23 Unknown nullFlavo Comprehensi c7f1 d869-6 Memoria 19:01:00 19:01:00 r ve Heart 647-4ee7-a l Care PA 48a-07735j [facility] nn 3677bd 2013-02-23 2013-02-23 Unknown nullFlavo Comprehensi d1a7 05dd-4 Memoria 19:01:00 19:01:00 r ve Heart 545-42d6-a l Care PA cc2-e7c50d [facility] nn 683f97 2013-02-23 2013-02-23 Unknown nullFlavo Comprehensi 8c90 d15c-0 Memoria 19:01:00 19:01:00 r ve Heart v87-99o7-a l Care PA 3ad-al520j [facility] nn 3936bd 2013-02-23 2013-02-23 Unknown nullFlavo Comprehensi 5f72 f37c-b Memoria 19:01:00 19:01:00 r ve Heart 5ef-4f08-b l Care PA 122-166339 [facility] nn d1b16d 2013-02-23 2013-02-23 Unknown nullFlavo Comprehensi 74d3 51c5-1 Memoria 19:01:00 19:01:00 r ve Heart cb4-4783-8 l Care PA fa5-b79fde [facility] nn 95afa3 2013-02-23 2013-02-23 Unknown nullFlavo Comprehensi 7cee 5bb0-d Memoria 19:01:00 19:01:00 r ve Heart d8k-68u6-3 l Care PA acb-e02bc1 [facility] nn t4922l 2013-02-23 2013-02-23 Unknown nullFlavo Comprehensi 7c65 5c22-9 Memoria 19:01:00 19:01:00 r ve Heart bc4-431d-b l Care PA 58a-92f44e [facility] nn 2e84c8 2013-02-23 2013-02-23 Unknown nullFlavo Comprehensi 42a6 09db-6 Memoria 19:01:00 19:01:00 r ve Heart 387-4155-8 l Care PA a69-dbpnid [facility] nn a604c9 2013-02-23 2013-02-23 Unknown nullFlavo Comprehensi 15a3 0a57-4 Memoria 19:01:00 19:01:00 r ve Heart 034-4848-9 l Care PA 3n1-wk253o [facility] nn 0c25ec 2013-02-23 2013-02-23 Unknown nullFlavo Comprehensi b6eb 05f6-c [facility]oria 19:01:00 19:01:00 r ve Heart 79a-45dc-9 l Care PA a43-3f7032 [facility] nn 4d9635 2013-02-23 2013-02-23 Unknown nullFlavo Comprehensi 5b8a 360b-b [facility] 19:01:00 19:01:00 r ve Heart 401-4ee0-9 l Care PA k06-123915 [facility] nn ce88dd 2013-02-23 2013-02-23 Unknown nullFlavo Comprehensi 9715 42f2-7 [facility]oria 19:01:00 19:01:00 r ve Heart 387-43b4-a l Care PA fd5-680834 [facility] nn 07h352 2013-02-23 2013-02-23 Unknown nullFlavo Comprehensi d155 6317-c [facility]oria 19:01:00 19:01:00 r ve Heart ec5-438e-b l Care PA fa0-4a3bc0 [facility] nn 0bc9e4 2013-02-23 2013-02-23 Unknown nullFlavo Comprehensi 0c06 9664-f Memoria 19:01:00 19:01:00 r ve Heart ccc-4a8f-8 l Care PA 516-f93aac [facility] nn 130ad8 2013-02-23 2013-02-23 Unknown nullFlavo Comprehensi 0b87 ebf6-8 Memoria 19:01:00 19:01:00 r ve Heart 3m6-763w-0 l Care PA 9k2-006zt0 [facility] nn f3771p 2013-02-23 2013-02-23 Unknown nullFlavo Comprehensi c7f1 d869-6 [facility] 19:01:00 19:01:00 r ve Heart 647-4ee7-a l Care PA 48a-22150b [facility] nn 3677bd 2013-02-23 2013-02-23 Unknown nullFlavo Comprehensi f8ed 76ca-4 [facility]oria 19:01:00 19:01:00 r ve Heart b44-8mt5-7 l Care PA 11b-c07cca [facility] nn 11c505 2013-02-23 2013-02-23 Unknown nullFlavo Comprehensi 0f66 ab56-5 Memoria 19:01:00 19:01:00 r ve Heart 9de-4a5c-a l Care PA 0db-cbf5b1 [facility] nn s5392s 2013-02-23 2013-02-23 Unknown nullFlavo Comprehensi 129a 917a-2 Memoria 19:01:00 19:01:00 r ve Heart 1f6-8i08-d l Care PA 3db-bccce7 [facility] nn a1eb51 2013-02-23 2013-02-23 Unknown nullFlavo Comprehensi e61f c7d6-9 Memoria 19:01:00 19:01:00 r ve Heart u2j-4901-8 l Care PA ae5-349b12 [facility] nn fc9c1b 2013-02-23 2013-02-23 Unknown nullFlavo Comprehensi 955f c9b7-f Memoria 19:01:00 19:01:00 r ve Heart 569-4b47-9 l Care PA b49-p27278 [facility] nn 1b8c0d 2013-02-23 2013-02-23 Unknown nullFlavo Comprehensi 74d3 51c5-1 [facility] 19:01:00 19:01:00 r ve Heart cb4-4783-8 l Care PA fa5-b79fde [facility] nn 95afa3 2013-02-23 2013-02-23 Unknown nullFlavo Comprehensi dd2f f0ec-9 Memoria 19:01:00 19:01:00 r ve Heart 7u5-6210-b l Care PA b36-129h53 [facility] nn ccd4ce 2013-02-23 2013-02-23 Unknown nullFlavo Comprehensi 7cee 5bb0-d Memoria 19:01:00 19:01:00 r ve Heart h4d-72f9-2 l Care PA acb-e02bc1 [facility] nn p9602q 2013-02-23 2013-02-23 Unknown nullFlavo Comprehensi 5f72 f37c-b [facility] 19:01:00 19:01:00 r ve Heart 5ef-4f08-b l Care PA 122-682168 [facility] nn d1b16d 2013-02-23 2013-02-23 Unknown nullFlavo Comprehensi 8c90 d15c-0 Memoria 19:01:00 19:01:00 r ve Heart t56-77t4-b l Care PA 3ad-nl977g [facility] nn 3936bd 2013-02-23 2013-02-23 Unknown nullFlavo Comprehensi 6aed c802-9 Memoria 19:01:00 19:01:00 r ve Heart bdb-4262-8 l Care PA 618-f46c4c [facility] nn 6a64cd 2013-02-23 2013-02-23 Unknown nullFlavo Comprehensi 42a6 09db-6 [facility]oria 19:01:00 19:01:00 r ve Heart 387-4155-8 l Care PA b97-stkrva [facility] nn a604c9 2013-02-23 2013-02-23 Unknown nullFlavo Comprehensi d1a7 05dd-4 [facility]oria 19:01:00 19:01:00 r ve Heart 545-42d6-a l Care PA cc2-e7c50d [facility] nn 683f97 2013-02-23 2013-02-23 Unknown nullFlavo Comprehensi 7c65 5c22-9 Memoria 19:01:00 19:01:00 r ve Heart bc4-431d-b l Care PA 58a-92f44e [facility] nn 2e84c8 2013-02-23 2013-02-23 Unknown nullFlavo Comprehensi 15a3 0a57-4 Memoria 19:01:00 19:01:00 r ve Heart 034-4848-9 l Care PA 5t1-la985g [facility] nn 0c25ec 2013-02-23 2013-02-23 Unknown nullFlavo Comprehensi b6eb 05f6-c [facility]oria 19:01:00 19:01:00 r ve Heart 79a-45dc-9 l Care PA r88-3t2506 [facility] nn 6c8445 2013-02-23 2013-02-23 Unknown nullFlavo Comprehensi 5b8a 360b-b [facility] 19:01:00 19:01:00 r ve Heart 401-4ee0-9 l Care PA n14-454175 [facility] nn ce88dd 2013-02-23 2013-02-23 Unknown nullFlavo Comprehensi 9715 42f2-7 [facility]oria 19:01:00 19:01:00 r ve Heart 387-43b4-a l Care PA fd5-419653 [facility] nn 21u985 2013-02-23 2013-02-23 Unknown nullFlavo Comprehensi d155 6317-c [facility] 19:01:00 19:01:00 r ve Heart ec5-438e-b l Care PA fa0-4a3bc0 [facility] nn 0bc9e4 2013-02-23 2013-02-23 Unknown nullFlavo Comprehensi 0c06 9664-f [facility] 19:01:00 19:01:00 r ve Heart ccc-4a8f-8 l Care PA 516-f93aac [facility] nn 130ad8 2013-02-23 2013-02-23 Unknown nullFlavo Comprehensi 0b87 ebf6-8 Memoria 19:01:00 19:01:00 r ve Heart 3q5-319y-9 l Care PA 6j9-472ce0 [facility] nn w6076h 2013-02-23 2013-02-23 Unknown nullFlavo Comprehensi c7f1 d869-6 Memoria 19:01:00 19:01:00 r ve Heart 647-4ee7-a l Care PA 48a-21933z [facility] nn 3677bd 2013-02-23 2013-02-23 Unknown nullFlavo Comprehensi f8ed 76ca-4 [facility] 19:01:00 19:01:00 r ve Heart f37-4ei7-2 l Care PA 11b-c07cca [facility] nn 66v061 2013-02-23 2013-02-23 Unknown nullFlavo Comprehensi 0f66 ab56-5 Memoria 19:01:00 19:01:00 r ve Heart 9de-4a5c-a l Care PA 0db-cbf5b1 [facility] nn q7608t 2013-02-23 2013-02-23 Unknown nullFlavo Comprehensi 129a 917a-2 Memoria 19:01:00 19:01:00 r ve Heart 4h6-6q42-y l Care PA 3db-bccce7 [facility] nn a1eb51 2013-02-23 2013-02-23 Unknown nullFlavo Comprehensi e61f c7d6-9 Memoria 19:01:00 19:01:00 r ve Heart x0y-7535-8 l Care PA ae5-349b12 [facility] nn fc9c1b 2013-02-23 2013-02-23 Unknown nullFlavo Comprehensi 955f c9b7-f Memoria 19:01:00 19:01:00 r ve Heart 569-4b47-9 l Care PA h26-h78996 [facility] nn 1b8c0d 2013-02-23 2013-02-23 Unknown nullFlavo Comprehensi 74d3 51c5-1 [facility]oria 19:01:00 19:01:00 r ve Heart cb4-4783-8 l Care PA fa5-b79fde [facility] nn 95afa3 2013-02-23 2013-02-23 Unknown nullFlavo Comprehensi dd2f f0ec-9 Memoria 19:01:00 19:01:00 r ve Heart 0q0-2521-u l Care PA z79-596e13 [facility] nn ccd4ce 2013-02-23 2013-02-23 Unknown nullFlavo Comprehensi 7cee 5bb0-d Memoria 19:01:00 19:01:00 r ve Heart h6w-85i5-4 l Care PA acb-e02bc1 [facility] nn a0321b 2013-02-23 2013-02-23 Unknown nullFlavo Comprehensi 5f72 f37c-b [facility] 19:01:00 19:01:00 r ve Heart 5ef-4f08-b l Care PA 122-720830 [facility] nn d1b16d 2013-02-23 2013-02-23 Unknown nullFlavo Comprehensi 8c90 d15c-0 Memoria 19:01:00 19:01:00 r ve Heart g28-25d6-x l Care PA 3ad-cf464x [facility] nn 3936bd 2013-02-23 2013-02-23 Unknown nullFlavo Comprehensi 6aed c802-9 Memoria 19:01:00 19:01:00 r ve Heart bdb-4262-8 l Care PA 618-f46c4c [facility] nn 6a64cd 2013-02-23 2013-02-23 Unknown nullFlavo Comprehensi 42a6 09db-6 Memoria 19:01:00 19:01:00 r ve Heart 387-4155-8 l Care PA j90-tlbrbb [facility] nn a604c9 2013-02-23 2013-02-23 Unknown nullFlavo Comprehensi d1a7 05dd-4 Memoria 19:01:00 19:01:00 r ve Heart 545-42d6-a l Care PA cc2-e7c50d [facility] nn 683f97 2013-02-23 2013-02-23 Unknown nullFlavo Comprehensi 7c65 5c22-9 Memoria 19:01:00 19:01:00 r ve Heart bc4-431d-b l Care PA 58a-92f44e [facility] nn 2e84c8 2013-02-23 2013-02-23 Unknown nullFlavo Comprehensi 15a3 0a57-4 Memoria 19:01:00 19:01:00 r ve Heart 034-4848-9 l Care PA 1j1-co646x [facility] nn 0c25ec 2013-02-23 2013-02-23 Unknown nullFlavo Comprehensi b6eb 05f6-c Memoria 19:01:00 19:01:00 r ve Heart 79a-45dc-9 l Care PA w02-9j0900 [facility] nn 8t7329 2013-02-23 2013-02-23 Outpatient Comprehen Comprehensi 2 0[facility]56 [facility] 14:01:00 14:01:00 [facility] Care PA Care PA 2013-02-23 2013-02-23 Outpatient Comprehen Comprehensi 2 48281 [facility]Clinic 14:01:00 14:01:00 [facility] alWor nd Heart Care PA Care PA 2013-02-22 2013-02-22 Unknown nullFlavo Comprehensi ccdb 944d-8 Memoria 21:00:00 21:00:00 r ve Heart 4ec-48dd-9 l Care PA w19-sc90sn [facility] nn b140ff 2013-02-22 2013-02-22 Unknown nullFlavo Comprehensi 4a61 730e-7 Memoria 21:00:00 21:00:00 r ve Heart 977-4b7e-9 l Care PA q8w-zy3a46 [facility] nn oud427 2013-02-22 2013-02-22 Unknown nullFlavo Comprehensi 9d0e 5329-6 [facility]oria 21:00:00 21:00:00 r ve Heart 405-4146-a l Care PA ac3-0805bd [facility] nn 5a3bfa 2013-02-22 2013-02-22 Unknown nullFlavo Comprehensi 35ed 9506-1 [facility] 21:00:00 21:00:00 r ve Heart 263-4151-b l Care PA k7v-l7x095 [facility] nn 74bc98 2013-02-22 2013-02-22 Unknown nullFlavo Comprehensi 3dc0 1820-8 Memoria 21:00:00 21:00:00 r ve Heart 239-4409-b l Care PA 089-a3e5a2 [facility] nn 678414 1784-06-12 2013-02-22 Unknown nullFlavo Comprehensi 85f3 69ec-1 [facility] 21:00:00 21:00:00 r ve Heart 361-47aa-b l Care PA d12-3p19wu [facility] nn 9ca7e1 2013-02-22 2013-02-22 Unknown nullFlavo Comprehensi 55f1 e8f1-4 [facility]oria 21:00:00 21:00:00 r ve Heart t59-5f46-r l Care PA 281-d81cac [facility] nn 3e9e18 2013-02-22 2013-02-22 Unknown nullFlavo Comprehensi 1357 8b83-c [facility] 21:00:00 21:00:00 r ve Heart 476-4981-9 l Care PA 1ca-58176r [facility] nn 194e83 2013-02-22 2013-02-22 Unknown nullFlavo Comprehensi a670 8694-3 Memoria 21:00:00 21:00:00 r ve Heart n48-1918-e l Care PA 135-4435bd [facility] nn 832eda 2013-02-22 2013-02-22 Unknown nullFlavo Comprehensi f98c 2b55-2 Memoria 21:00:00 21:00:00 r ve Heart 7c3-80v1-w l Care PA 0bd-1c9acf [facility] nn f2a8e6 2013-02-22 2013-02-22 Unknown nullFlavo Comprehensi 6b19 6e76-3 Memoria 21:00:00 21:00:00 r ve Heart 383-4f59-8 l Care PA 411-9b810h [facility] nn b73ec4 2013-02-22 2013-02-22 Unknown nullFlavo Comprehensi eb26 7286-6 [facility] 21:00:00 21:00:00 r ve Heart 2y4-665b-2 l Care PA 36f-594110 [facility] nn 2il646 2013-02-22 2013-02-22 Unknown nullFlavo Comprehensi 6b19 6e76-3 Memoria 21:00:00 21:00:00 r ve Heart 383-4f59-8 l Care PA 411-5t582y [facility] nn b73ec4 2013-02-22 2013-02-22 Unknown nullFlavo Comprehensi eb26 7286-6 Mem[facility] 21:00:00 21:00:00 r ve Heart 8a3-483a-8 l Care PA 36f-674419 [facility] nn 0ti953 2013-02-22 2013-02-22 Unknown nullFlavo Comprehensi 3dc0 1820-8 [facility]oria 21:00:00 21:00:00 r ve Heart 239-4409-b l Care PA 089-a3e5a2 [facility] nn 994844 9666-06-12 2013-02-22 Unknown nullFlavo Comprehensi 35ed 9506-1 [facility] 21:00:00 21:00:00 r ve Heart 263-4151-b l Care PA v4j-e3j589 [facility] nn 74bc98 2013-02-22 2013-02-22 Unknown nullFlavo Comprehensi ccdb 944d-8 [facility]oria 21:00:00 21:00:00 r ve Heart 4ec-48dd-9 l Care PA a95-fj96eg [facility] nn b140ff 2013-02-22 2013-02-22 Unknown nullFlavo Comprehensi 4a61 730e-7 Memoria 21:00:00 21:00:00 r ve Heart 977-4b7e-9 l Care PA a1h-zm8i28 [facility] nn isr835 2013-02-22 2013-02-22 Unknown nullFlavo Comprehensi 85f3 69ec-1 [facility] 21:00:00 21:00:00 r ve Heart 361-47aa-b l Care PA k72-9n50zs [facility] nn 9ca7e1 2013-02-22 2013-02-22 Unknown nullFlavo Comprehensi a670 8694-3 Memoria 21:00:00 21:00:00 r ve Heart p05-0179-g l Care PA 135-4435bd [facility] nn 832eda 2013-02-22 2013-02-22 Unknown nullFlavo Comprehensi f98c 2b55-2 Memoria 21:00:00 21:00:00 r ve Heart 5c5-36w1-m l Care PA 0bd-1c9acf [facility] nn f2a8e6 2013-02-22 2013-02-22 Unknown nullFlavo Comprehensi 55f1 e8f1-4 Memoria 21:00:00 21:00:00 r ve Heart r57-4p49-j l Care PA 281-d81cac [facility] nn 3e9e18 2013-02-22 2013-02-22 Unknown nullFlavo Comprehensi 1357 8b83-c Memoria 21:00:00 21:00:00 r ve Heart 476-4981-9 l Care PA 1ca-38317a [facility] nn 194e83 2013-02-22 2013-02-22 Unknown nullFlavo Comprehensi 9d0e 5329-6 Memoria 21:00:00 21:00:00 r ve Heart 405-4146-a l Care PA ac3-0805bd [facility] nn 5a3bfa 2013-02-22 2013-02-22 Unknown nullFlavo Comprehensi 6b19 6e76-3 Memoria 21:00:00 21:00:00 r ve Heart 383-4f59-8 l Care PA 411-7s933p [facility] nn b73ec4 2013-02-22 2013-02-22 Unknown nullFlavo Comprehensi eb26 7286-6 Memoria 21:00:00 21:00:00 r ve Heart 5x0-140l-7 l Care PA 36f-276620 [facility] nn 9ur869 2013-02-22 2013-02-22 Unknown nullFlavo Comprehensi 3dc0 1820-8 [facility]oria 21:00:00 21:00:00 r ve Heart 239-4409-b l Care PA 089-a3e5a2 [facility] nn 475500 7270-06-12 2013-02-22 Unknown nullFlavo Comprehensi 35ed 9506-1 Memoria 21:00:00 21:00:00 r ve Heart 263-4151-b l Care PA r7n-f2z405 [facility] nn 74bc98 2013-02-22 2013-02-22 Unknown nullFlavo Comprehensi ccdb 944d-8 Memoria 21:00:00 21:00:00 r ve Heart 4ec-48dd-9 l Care PA p52-ul48rn [facility] nn b140ff 2013-02-22 2013-02-22 Unknown nullFlavo Comprehensi 4a61 730e-7 Memoria 21:00:00 21:00:00 r ve Heart 977-4b7e-9 l Care PA j6i-hd6y78 [facility] nn foi921 2013-02-22 2013-02-22 Unknown nullFlavo Comprehensi 85f3 69ec-1 [facility] 21:00:00 21:00:00 r ve Heart 361-47aa-b l Care PA v30-5n01an [facility] nn 9ca7e1 2013-02-22 2013-02-22 Unknown nullFlavo Comprehensi a670 8694-3 Memoria 21:00:00 21:00:00 r ve Heart y83-6450-x l Care PA 135-4435bd [facility] nn 832eda 2013-02-22 2013-02-22 Unknown nullFlavo Comprehensi f98c 2b55-2 Memoria 21:00:00 21:00:00 r ve Heart 5a8-06w4-p l Care PA 0bd-1c9acf [facility] nn f2a8e6 2013-02-22 2013-02-22 Unknown nullFlavo Comprehensi 55f1 e8f1-4 Memoria 21:00:00 21:00:00 r ve Heart v60-7z21-l l Care PA 281-d81cac [facility] nn 3e9e18 2013-02-22 2013-02-22 Unknown nullFlavo Comprehensi 1357 8b83-c Memoria 21:00:00 21:00:00 r ve Heart 476-4981-9 l Care PA 1ca-34131z [facility] nn 194e83 2013-02-22 2013-02-22 Unknown nullFlavo Comprehensi 9d0e 5329-6 [facility] 21:00:00 21:00:00 r ve Heart 405-4146-a l Care PA ac3-0805bd [facility] nn 5a3bfa 2013-02-22 2013-02-22 Unknown nullFlavo Comprehensi 7465 569a-1 [facility] 20:00:00 20:00:00 r ve Heart 5fb-474f-a l Care PA anjelica-82f3b8 [facility] nn h4634x 2013-02-22 2013-02-22 Unknown nullFlavo Comprehensi 03b3 755a-d Mem[facility] 20:00:00 20:00:00 r ve Heart j0i-94o8-1 l Care PA 345-9eab6a [facility] nn 93bae7 2013-02-22 2013-02-22 Unknown nullFlavo Comprehensi fcb2 b530-d [facility] 20:00:00 20:00:00 r ve Heart 971-40b9-b l Care PA -2d6632 [facility] nn s6n842 2013-02-22 2013-02-22 Unknown nullFlavo Comprehensi 38cb 0be6-b [facility] 20:00:00 20:00:00 r ve Heart bc4-4dfb-b l Care PA 134-c86b7d [facility] nn 088df6 2013-02-22 2013-02-22 Unknown nullFlavo Comprehensi 400a b7f5-7 [facility] 20:00:00 20:00:00 r ve Heart 115-4030-a l Care PA 685-82a7c2 [facility] nn 96857n 2013-02-22 2013-02-22 Unknown nullFlavo Comprehensi c322 f5bd-a [facility] 20:00:00 20:00:00 r ve Heart cf6-4b69-a l Care PA fa8-3e26dc [facility] nn 952725 0663-06-12 2013-02-22 Unknown nullFlavo Comprehensi 7c24 0203-1 [facility] 20:00:00 20:00:00 r ve Heart 6s2-7875-l l Care PA 78e-bd1d01 [facility] nn 490be2 2013-02-22 2013-02-22 Unknown nullFlavo Comprehensi a023 b5fa-c [facility]oria 20:00:00 20:00:00 r ve Heart cfe-4b75-a l Care PA be7-ce9bc9 [facility] nn 1aaf45 2013-02-22 2013-02-22 Unknown nullFlavo Comprehensi 21ce 9375-b [facility] 20:00:00 20:00:00 r ve Heart ac0-4296-a l Care PA 06a-683ba5 [facility] nn d71eaa 2013-02-22 2013-02-22 Unknown nullFlavo Comprehensi d7cb afed-4 [facility] 20:00:00 20:00:00 r ve Heart 0r8-834b-q l Care PA 816-5337a6 [facility] nn 297e31 2013-02-22 2013-02-22 Unknown nullFlavo Comprehensi f3d8 4ff2-0 Memoria 20:00:00 20:00:00 r ve Heart df0-4bd3-8 l Care PA ffe-7d2f6b [facility] nn 6b254f 2013-02-22 2013-02-22 Unknown nullFlavo Comprehensi ca9c acef-e Memoria 20:00:00 20:00:00 r ve Heart 0cf-42b8-9 l Care PA d73-4j0308 [facility] nn adfdf9 2013-02-22 2013-02-22 Unknown nullFlavo Comprehensi c5a2 cef7-8 [facility]oria 20:00:00 20:00:00 r ve Heart 83b-4bbb-b l Care PA cff-99w760 [facility] nn cafef3 2013-02-22 2013-02-22 Unknown nullFlavo Comprehensi 34bb 4971-1 [facility] 20:00:00 20:00:00 r ve Heart 939-4ab2-8 l Care PA 353-j5h577 [facility] nn 86ed81 2013-02-22 2013-02-22 Unknown nullFlavo Comprehensi 47b5 9d69-d Memoria 20:00:00 20:00:00 r ve Heart 1m4-4438-5 l Care PA f16-8808x5 [facility] nn 9c6e22 2013-02-22 2013-02-22 Unknown nullFlavo Comprehensi fd3c c570-3 Mem[facility] 20:00:00 20:00:00 r ve Heart 2m1-2i60-0 l Care PA e96-07748s [facility] nn b04a43 2013-02-22 2013-02-22 Unknown nullFlavo Comprehensi 44f6 35e5-1 [facility] 20:00:00 20:00:00 r ve Heart 3m7-1164-8 l Care PA 236-afa7a4 [facility] nn 837f46 2013-02-22 2013-02-22 Unknown nullFlavo Comprehensi e2d7 24d1-1 [facility] 20:00:00 20:00:00 r ve Heart 645-48e8-b l Care PA l2v-07r6b7 [facility] nn cdb5a5 2013-02-22 2013-02-22 Unknown nullFlavo Comprehensi 686a c8d9-4 Memoria 20:00:00 20:00:00 r ve Heart 347-4d00-9 l Care PA 223-q6d004 [facility] nn f86df9 2013-02-22 2013-02-22 Unknown nullFlavo Comprehensi 91ef b92f-f [facility] 20:00:00 20:00:00 r ve Heart 217-4ef9-b l Care PA 0fc-984423 [facility] nn a83c4e 2013-02-22 2013-02-22 Unknown nullFlavo Comprehensi 51c5 88e1-7 [facility] 20:00:00 20:00:00 r ve Heart 060-47a7-a l Care PA 5dd-0b40c9 [facility] nn 9a2df8 2013-02-22 2013-02-22 Unknown nullFlavo Comprehensi 7465 569a-1 [facility] 20:00:00 20:00:00 r ve Heart 5fb-474f-a l Care PA anjelica-82f3b8 [facility] nn v5052c 2013-02-22 2013-02-22 Unknown nullFlavo Comprehensi 03b3 755a-d [facility] 20:00:00 20:00:00 r ve Heart j5w-16e7-4 l Care PA 345-9eab6a [facility] nn 93bae7 2013-02-22 2013-02-22 Unknown nullFlavo Comprehensi fcb2 b530-d [facility] 20:00:00 20:00:00 r ve Heart 971-40b9-b l Care PA -7k1233 [facility] nn s2m679 2013-02-22 2013-02-22 Unknown nullFlavo Comprehensi 7c24 0203-1 [facility] 20:00:00 20:00:00 r ve Heart 0y1-7760-y l Care PA 78e-bd1d01 [facility] nn 490be2 2013-02-22 2013-02-22 Unknown nullFlavo Comprehensi ca9c acef-e [facility] 20:00:00 20:00:00 r ve Heart 0cf-42b8-9 l Care PA q19-5k0220 [facility] nn adfdf9 2013-02-22 2013-02-22 Unknown nullFlavo Comprehensi 38cb 0be6-b [facility] 20:00:00 20:00:00 r ve Heart bc4-4dfb-b l Care PA 134-c86b7d [facility] nn 088df6 2013-02-22 2013-02-22 Unknown nullFlavo Comprehensi 400a b7f5-7 [facility] 20:00:00 20:00:00 r ve Heart 115-4030-a l Care PA 685-82a7c2 [facility] nn 04110p 2013-02-22 2013-02-22 Unknown nullFlavo Comprehensi f3d8 4ff2-0 [facility] 20:00:00 20:00:00 r ve Heart df0-4bd3-8 l Care PA ffe-7d2f6b [facility] nn 4s227f 2013-02-22 2013-02-22 Unknown nullFlavo Comprehensi a023 b5fa-c [facility] 20:00:00 20:00:00 r ve Heart cfe-4b75-a l Care PA [id number]-[id number] [facility] nn 1aaf45 2013-02-22 2013-02-22 Unknown nullFlavo Comprehensi d7cb afed-4 [facility] 20:00:00 20:00:00 r ve Heart 9w1-781y-q l Care PA [id number] [facility] nn [id number] 2013-02-22 2013-02-22 Unknown nullFlavo Comprehensi fd3c c570-3 [facility] 20:00:00 20:00:00 r ve Heart 7v4-0h27-2 l Care PA [id number] [facility] nn b04a43 2013-02-22 2013-02-22 Unknown nullFlavo Comprehensi 21ce 9375-b [facility] 20:00:00 20:00:00 r ve Heart ac0-4296-a l Care PA [id number] [facility] nn d71eaa 2013-02-22 2013-02-22 Unknown nullFlavo Comprehensi 44f6 35e5-1 [facility] 20:00:00 20:00:00 r ve Heart 5y6-4052-3 l Care PA [id number] [facility] nn 837f46 2013-02-22 2013-02-22 Unknown nullFlavo Comprehensi 47b5 9d69-d [facility] 20:00:00 20:00:00 r ve Heart 5u5-7073-8 l Care PA [id number] [facility] nn 9c6e22 2013-02-22 2013-02-22 Unknown nullFlavo Comprehensi 34bb 4971-1 [facility] 20:00:00 20:00:00 r ve Heart 939-4ab2-8 l Care PA [id number] [facility]lee nn 86ed81 2013-02-22 2013-02-22 Unknown nullFlavo Comprehensi c322 f5bd-a [facility] 20:00:00 20:00:00 r ve Heart cf6-4b69-a l Care PA [id number] Haylee nn [id number] 9869-06-12 2013-02-22 Unknown nullFlavo Comprehensi 686a c8d9-4 [facility] 20:00:00 20:00:00 r ve Heart 347-4d00-9 l Care PA [id number]-d8t619 [facility]lee nn f86df9 2013-02-22 2013-02-22 Unknown nullFlavo Comprehensi c5a2 cef7-8 [facility] 20:00:00 20:00:00 r ve Heart 83b-4bbb-b l Care PA [id number]-34f848 [facility] nn cafef3 2013-02-22 2013-02-22 Unknown nullFlavo Comprehensi e2d7 24d1-1 [facility] 20:00:00 20:00:00 r ve Heart 645-48e8-b l Care PA z5c-46p3x6 [facility] nn cdb5a5 2013-02-22 2013-02-22 Unknown nullFlavo Comprehensi 91ef b92f-f [facility] 20:00:00 20:00:00 r ve Heart 217-4ef9-b l Care PA [id number]-090781 [facility]lee nn a83c4e 2013-02-22 2013-02-22 Unknown nullFlavo Comprehensi 51c5 88e1-7 [facility] 20:00:00 20:00:00 r ve Heart 060-47a7-a l Care PA 5dd-0b40c9 [facility]lee nn 9a2df8 2013-02-22 2013-02-22 Unknown nullFlavo Comprehensi 7465 569a-1 [facility] 20:00:00 20:00:00 r ve Heart 5fb-474f-a l Care PA [id number]-82f3b8 [facility]lee nn [id number] 2013-02-22 2013-02-22 Unknown nullFlavo Comprehensi 03b3 755a-d [facility] 20:00:00 20:00:00 r ve Heart l4r-52h6-5 l Care PA [id number] [facility] nn 93bae7 2013-02-22 2013-02-22 Unknown nullFlavo Comprehensi fcb2 b530-d [facility] 20:00:00 20:00:00 r ve Heart 971-40b9-b l Care PA -[id number] [facility] nn k6e769 2013-02-22 2013-02-22 Unknown nullFlavo Comprehensi 7c24 0203-1 [facility] 20:00:00 20:00:00 r ve Heart 5y1-5552-q l Care PA [id number]-bd1d01 [facility]lee nn 490be2 2013-02-22 2013-02-22 Unknown nullFlavo Comprehensi ca9c acef-e [facility] 20:00:00 20:00:00 r ve Heart 0cf-42b8-9 l Care PA [id number] [facility] nn adfdf9 2013-02-22 2013-02-22 Unknown nullFlavo Comprehensi 38cb 0be6-b [facility] 20:00:00 20:00:00 r ve Heart bc4-4dfb-b l Care PA 134-c86b7d [facility]lee nn 088df6 2013-02-22 2013-02-22 Unknown nullFlavo Comprehensi 400a b7f5-7 [facility] 20:00:00 20:00:00 r ve Heart 115-4030-a l Care PA [id number] Haylee nn 70972q 2013-02-22 2013-02-22 Unknown nullFlavo Comprehensi f3d8 4ff2-0 [facility] 20:00:00 20:00:00 r ve Heart df0-4bd3-8 l Care PA ffe-7d2f6b [facility] nn 1j737p 2013-02-22 2013-02-22 Unknown nullFlavo Comprehensi a023 b5fa-c [facility] 20:00:00 20:00:00 r ve Heart cfe-4b75-a l Care PA [id number]-ce9bc9 [facility] nn 1aaf45 2013-02-22 2013-02-22 Unknown nullFlavo Comprehensi d7cb afed-4 [facility] 20:00:00 20:00:00 r ve Heart 7u7-771h-e l Care PA [id number] [facility] nn 297e31 2013-02-22 2013-02-22 Unknown nullFlavo Comprehensi fd3c c570-3 [facility] 20:00:00 20:00:00 r ve Heart 4m0-4f97-9 l Care PA [id number] [facility] nn b04a43 2013-02-22 2013-02-22 Unknown nullFlavo Comprehensi 21ce 9375-b [facility] 20:00:00 20:00:00 r ve Heart ac0-4296-a l Care PA [id number]-[id number] [facility] nn d71eaa 2013-02-22 2013-02-22 Unknown nullFlavo Comprehensi 44f6 35e5-1 [facility] 20:00:00 20:00:00 r ve Heart 1p0-7944-2 l Care PA 236-afa7a4 [facility] nn 837f46 2013-02-22 2013-02-22 Unknown nullFlavo Comprehensi 47b5 9d69-d [facility] 20:00:00 20:00:00 r ve Heart 4j7-1157-3 l Care PA [id number] [facility] nn 9c6e22 2013-02-22 2013-02-22 Unknown nullFlavo Comprehensi 34bb 4971-1 [facility] 20:00:00 20:00:00 r ve Heart 939-4ab2-8 l Care PA 353-[id number] [facility] nn 86ed81 2013-02-22 2013-02-22 Unknown nullFlavo Comprehensi c322 f5bd-a [facility] 20:00:00 20:00:00 r ve Heart cf6-4b69-a l Care PA fa8-3e26dc [facility] nn [id number] 1493-06-12 2013-02-22 Unknown nullFlavo Comprehensi 686a c8d9-4 [facility] 20:00:00 20:00:00 r ve Heart 347-4d00-9 l Care PA [id number]-k3d295 [facility] nn f86df9 2013-02-22 2013-02-22 Unknown nullFlavo Comprehensi c5a2 cef7-8 [facility] 20:00:00 20:00:00 r ve Heart 83b-4bbb-b l Care PA cff-11f795 [facility] nn cafef3 2013-02-22 2013-02-22 Unknown nullFlavo Comprehensi e2d7 24d1-1 [facility] 20:00:00 20:00:00 r ve Heart 645-48e8-b l Care PA i6w-23w9g2 [facility] nn cdb5a5 2013-02-22 2013-02-22 Unknown nullFlavo Comprehensi 91ef b92f-f [facility] 20:00:00 20:00:00 r ve Heart 217-4ef9-b l Care PA 0fc-908075 Haylee nn a83c4e 2013-02-22 2013-02-22 Unknown nullFlavo Comprehensi 51c5 88e1-7 [facility] 20:00:00 20:00:00 r ve Heart 060-47a7-a l Care PA 5dd-0b40c9 Haylee nn 9a2df8 2013-02-22 2013-02-22 Outpatient Comprehen Comprehensi 2 34984 [facility] 15:00:00 15:00:00 [facility] PA Care PA 2013-02-22 2013-02-22 Outpatient Comprehen Comprehensi 2 56775 [facility]inic 15:00:00 15:00:00 [facility] PA Care PA 2012-12-23 2012-12-23 Unknown nullFlavo Comprehensi 41c6 fdbe-a [facility] 16:01:00 16:01:00 r ve Heart 965-441b-8 l Care PA 36a-54fc92 Haylee nn f4p074 2012-12-23 2012-12-23 Unknown nullFlavo Comprehensi d141 6de9-9 [facility] 16:01:00 16:01:00 r ve Heart 859-4384-b l Care PA 439-c226d3 Haylee nn 303e6f 2012-12-23 2012-12-23 Unknown nullFlavo Comprehensi 6642 365e-2 [facility] 16:01:00 16:01:00 r ve Heart 6n6-90r9-h l Care PA cd0-09f97f Haylee nn f59c5f 2012-12-23 2012-12-23 Unknown nullFlavo Comprehensi 44c3 3a61-a [facility] 16:01:00 16:01:00 r ve Heart 24e-4847-b l Care PA 212-ae1b3b Haylee nn 89b3f7 2012-12-23 2012-12-23 Unknown nullFlavo Comprehensi 088d 01a0-0 [facility] 16:01:00 16:01:00 r ve Heart ae7-4ce7-8 l Care PA 3m9-40r1mk Haylee nn 6s7047 2012-12-23 2012-12-23 Unknown nullFlavo Comprehensi 16fe 1358-a [facility] 16:01:00 16:01:00 r ve Heart 39b-4182-9 l Care PA 1db-97r702 Haylee nn 8573ba 2012-12-23 2012-12-23 Unknown nullFlavo Comprehensi a884 3be1-c [facility] 16:01:00 16:01:00 r ve Heart k4y-1q06-f l Care PA 84c-825d39 Haylee nn 8s8735 2012-12-23 2012-12-23 Unknown nullFlavo Comprehensi 4f96 06a1-3 [facility] 16:01:00 16:01:00 r ve Heart 7d5-8055-x l Care PA 0ca-7tq679 Haylee nn 987220 0876-04-12 2012-12-23 Unknown nullFlavo Comprehensi 6d11 1f6a-0 [facility] 16:01:00 16:01:00 r ve Heart bfd-414a-a l Care PA o25-y929fm Haylee nn 6e7949 2012-12-23 2012-12-23 Unknown nullFlavo Comprehensi a895 afa7-7 [facility] 16:01:00 16:01:00 r ve Heart f47-724m-0 l Care PA ce7-869763 Haylee nn 6cf9c9 2012-12-23 2012-12-23 Unknown nullFlavo Comprehensi 5d3d 3758-a [facility] 16:01:00 16:01:00 r ve Heart 661-4956-8 l Care PA 795-088d3f Haylee nn d4ef72 2012-12-23 2012-12-23 Unknown nullFlavo Comprehensi 989a ac5f-a [facility] 16:01:00 16:01:00 r ve Heart be8-408c-8 l Care PA 1ff-5i0419 Haylee nn 0c5e44 2012-12-23 2012-12-23 Unknown nullFlavo Comprehensi 41c6 fdbe-a [facility] 16:01:00 16:01:00 r ve Heart 965-441b-8 l Care PA 36a-54fc92 Haylee nn x8g886 2012-12-23 2012-12-23 Unknown nullFlavo Comprehensi 44c3 3a61-a [facility] 16:01:00 16:01:00 r ve Heart 24e-4847-b l Care PA 212-ae1b3b Haylee nn 89b3f7 2012-12-23 2012-12-23 Unknown nullFlavo Comprehensi 088d 01a0-0 [facility] 16:01:00 16:01:00 [facility] ve [facility] ae7-4ce7-8 l Care PA 3d2-26s5fz Haylee nn 9a2360 2012-12-23 2012-12-23 Unknown nullFlavo Comprehensi d141 6de9-9 [facility] 16:01:00 16:01:00 r ve Heart 859-4384-b l Care PA 439-c226d3 Haylee nn 303e6f 2012-12-23 2012-12-23 Unknown nullFlavo Comprehensi 6642 365e-2 [facility] 16:01:00 16:01:00 r ve Heart 4q3-61v2-s l Care PA cd0-09f97f Haylee nn f59c5f 2012-12-23 2012-12-23 Unknown nullFlavo Comprehensi a895 afa7-7 [facility] 16:01:00 16:01:00 r ve Heart k08-443p-4 l Care PA ce7-838759 Haylee nn 6cf9c9 2012-12-23 2012-12-23 Unknown nullFlavo Comprehensi 16fe 1358-a [facility] 16:01:00 16:01:00 r ve Heart 39b-4182-9 l Care PA 1db-76r201 Haylee nn 8573ba 2012-12-23 2012-12-23 Unknown nullFlavo Comprehensi a884 3be1-c [facility] 16:01:00 16:01:00 [facility] ve Heart q9b-9o60-g l Care PA 84c-825d39 Haylee nn 4q8271 2012-12-23 2012-12-23 Unknown nullFlavo Comprehensi 989a ac5f-a [facility] 16:01:00 16:01:00 [facility] ve Heart be8-408c-8 l Care PA 1ff-8w9025 Haylee nn 0c5e44 2012-12-23 2012-12-23 Unknown nullFlavo Comprehensi 5d3d 3758-a [facility] 16:01:00 16:01:00 r ve Heart 661-4956-8 l Care PA 795-088d3f Haylee nn d4ef72 2012-12-23 2012-12-23 Unknown nullFlavo Comprehensi 4f96 06a1-3 [facility] 16:01:00 16:01:00 [facility] ve Heart 6q0-0891-l l Care PA 0ca-1sy689 Haylee nn 575533 9080-04-12 2012-12-23 Unknown nullFlavo Comprehensi 6d11 1f6a-0 [facility] 16:01:00 16:01:00 r ve Heart bfd-414a-a l Care PA q78-f572ww Haylee nn 2w4779 2012-12-23 2012-12-23 Unknown nullFlavo Comprehensi 41c6 fdbe-a [facility] 16:01:00 16:01:00 r ve Heart 965-441b-8 l Care PA 36a-54fc92 Haylee nn t8l244 2012-12-23 2012-12-23 Unknown nullFlavo Comprehensi 44c3 3a61-a [facility] 16:01:00 16:01:00 r ve Heart 24e-4847-b l Care PA 212-ae1b3b Haylee nn 89b3f7 2012-12-23 2012-12-23 Unknown nullFlavo Comprehensi 088d 01a0-0 [facility] 16:01:00 16:01:00 [facility] ve [facility] ae7-4ce7-8 l Care PA 9o4-58f6du Haylee nn 5m1378 2012-12-23 2012-12-23 Unknown nullFlavo Comprehensi d141 6de9-9 [facility] 16:01:00 16:01:00 r ve Heart 859-4384-b l Care PA 439-c226d3 Haylee nn 303e6f 2012-12-23 2012-12-23 Unknown nullFlavo Comprehensi 6642 365e-2 [facility] 16:01:00 16:01:00 r ve Heart 0n5-63h7-r l Care PA cd0-09f97f Haylee nn f59c5f 2012-12-23 2012-12-23 Unknown nullFlavo Comprehensi a895 afa7-7 [facility] 16:01:00 16:01:00 r ve Heart n93-719r-9 l Care PA ce7-896098 Haylee nn 6cf9c9 2012-12-23 2012-12-23 Unknown nullFlavo Comprehensi 16fe 1358-a [facility] 16:01:00 16:01:00 r ve Heart 39b-4182-9 l Care PA 1db-01q981 Haylee nn 8573ba 2012-12-23 2012-12-23 Unknown nullFlavo Comprehensi a884 3be1-c [facility] 16:01:00 16:01:00 [facility] ve Heart i1r-8y75-h l Care PA 84c-825d39 Haylee nn 6q7444 2012-12-23 2012-12-23 Unknown nullFlavo Comprehensi 989a ac5f-a [facility] 16:01:00 16:01:00 [facility] ve Heart be8-408c-8 l Care PA 1ff-4u3309 Haylee nn 0c5e44 2012-12-23 2012-12-23 Unknown nullFlavo Comprehensi 5d3d 3758-a [facility] 16:01:00 16:01:00 r ve Heart 661-4956-8 l Care PA 795-088d3f Haylee nn d4ef72 2012-12-23 2012-12-23 Unknown nullFlavo Comprehensi 4f96 06a1-3 [facility] 16:01:00 16:01:00 r ve Heart 7p7-4744-x l Care PA 0ca-2oa666 Haylee nn 443960 1114-04-12 2012-12-23 Unknown nullFlavo Comprehensi 6d11 1f6a-0 [facility] 16:01:00 16:01:00 r ve Heart bfd-414a-a l Care PA e15-k837po Haylee nn 7c7663 2012-12-23 2012-12-23 Unknown nullFlavo Comprehensi 7f24 e44e-8 [facility] 15:01:00 15:01:00 r ve Heart x88-769z-a l Care PA 18c-7b8fa7 Haylee nn dc80a0 2012-12-23 2012-12-23 Unknown nullFlavo Comprehensi e674 6877-d [facility] 15:01:00 15:01:00 [facility] ve Heart 8l3-0mp4-1 l Care PA 731-629c50 Haylee nn e60c6c 2012-12-23 2012-12-23 Unknown nullFlavo Comprehensi a7c2 54c0-3 [facility] 15:01:00 15:01:00 [facility] ve Heart 2l7-0313-6 l Care PA df2-3a4ae8 Haylee nn a77f27 2012-12-23 2012-12-23 Unknown nullFlavo Comprehensi 93b9 8b7b-c [facility] 15:01:00 15:01:00 r ve Heart dbc-469c-a l Care PA j3k-c2xpjq Haylee nn 06f37e 2012-12-23 2012-12-23 Unknown nullFlavo Comprehensi 8e3f d169-9 [facility] 15:01:00 15:01:00 r ve Heart 856-46c0-a l Care PA 12b-8q373e Haylee nn c2v032 2012-12-23 2012-12-23 Unknown nullFlavo Comprehensi 041f 1058-b [facility] 15:01:00 15:01:00 r ve Heart 8ae-4c36-8 l Care PA m40-ng149w Haylee nn ej812y 2012-12-23 2012-12-23 Unknown nullFlavo Comprehensi b229 b4e2-1 [facility] 15:01:00 15:01:00 r ve Heart 608-41bd-a l Care PA 3v4-47op3w Hayele nn c662b0 2012-12-23 2012-12-23 Unknown nullFlavo Comprehensi a1ac 53e6-5 [facility] 15:01:00 15:01:00 r ve Heart 136-481e-b l Care PA 313-z5k610 Haylee nn 8d03af 2012-12-23 2012-12-23 Unknown nullFlavo Comprehensi 49b2 899b-3 [facility] 15:01:00 15:01:00 r ve Heart 93f-4a56-b l Care PA t04-xt70a6 Haylee nn f22147 2012-12-23 2012-12-23 Unknown nullFlavo Comprehensi 903e 848f-7 [facility] 15:01:00 15:01:00 r ve Heart 672-4d08-9 l Care PA ab7-ba9ea8 Haylee nn 9z074s 2012-12-23 2012-12-23 Unknown nullFlavo Comprehensi 4bf5 332a-d [facility] 15:01:00 15:01:00 r ve Heart 2o0-19z0-s l Care PA 634-b9q792 Haylee nn 2832c4 2012-12-23 2012-12-23 Unknown nullFlavo Comprehensi a08a 9be8-9 [facility] 15:01:00 15:01:00 r ve Heart 674-4877-8 l Care PA 08e-a5ba54 Haylee nn 6j554s 2012-12-23 2012-12-23 Unknown nullFlavo Comprehensi 2385 a0e4-9 [facility] 15:01:00 15:01:00 r ve Heart dbe-46e0-a l Care PA dfb-gs2933 Haylee nn 8d1ae5 2012-12-23 2012-12-23 Unknown nullFlavo Comprehensi 1828 b6f8-7 [facility] 15:01:00 15:01:00 r ve Heart 63d-45fc-8 l Care PA 648-815d7d Haylee nn dccbcf 2012-12-23 2012-12-23 Unknown nullFlavo Comprehensi 87e8 f3ea-9 [facility] 15:01:00 15:01:00 r ve Heart 0w3-1696-l l Care PA ef6-7c77e7 Haylee nn u0i657 2012-12-23 2012-12-23 Unknown nullFlavo Comprehensi 64bc c214-8 [facility] 15:01:00 15:01:00 r ve Heart u4z-5379-5 l Care PA 2q9-r306qs [facility] nn f96904 2012-12-23 2012-12-23 Unknown nullFlavo Comprehensi feae 8e5e-b [facility] 15:01:00 15:01:00 r ve Heart 048-43ce-9 l Care PA 9u3-441y25 [facility] nn 574476 5056-04-12 2012-12-23 Unknown nullFlavo Comprehensi 0306 9b22-7 [facility] 15:01:00 15:01:00 r ve Heart 2c2-16u5-k l Care PA 691-94aa4d [facility] nn 6yh812 2012-12-23 2012-12-23 Unknown nullFlavo Comprehensi be25 abaf-5 [facility] 15:01:00 15:01:00 r ve Heart 263-40c1-a l Care PA 4m2-393296 [facility] nn 73a2d9 2012-12-23 2012-12-23 Unknown nullFlavo Comprehensi c211 1b3f-f [facility] 15:01:00 15:01:00 r ve Heart 0i1-9480-1 l Care PA 57e-6fd2fa [facility] nn 948fde 2012-12-23 2012-12-23 Unknown nullFlavo Comprehensi 80ea eebc-8 [facility] 15:01:00 15:01:00 r ve Heart cf4-4f82-9 l Care PA ee3-14a585 [facility] nn a01795 2012-12-23 2012-12-23 Unknown nullFlavo Comprehensi 6a21 924f-1 [facility] 15:01:00 15:01:00 r ve Heart 6ef-4122-9 l Care PA 84a-811bf0 [facility] nn 5lg452 2012-12-23 2012-12-23 Unknown nullFlavo Comprehensi 866b 9438-7 [facility] 15:01:00 15:01:00 r ve Heart 705-4798-b l Care PA z00-he2072 [facility] nn cc43ad 2012-12-23 2012-12-23 Unknown nullFlavo Comprehensi 1535 6332-3 [facility] 15:01:00 15:01:00 r ve Heart 4g8-91nn-2 l Care PA 7ec-19dc9e [facility] nn h5o330 2012-12-23 2012-12-23 Unknown nullFlavo Comprehensi 7f24 e44e-8 [facility] 15:01:00 15:01:00 r ve Heart e65-913e-z l Care PA 18c-7b8fa7 [facility] nn dc80a0 2012-12-23 2012-12-23 Unknown nullFlavo Comprehensi e674 6877-d [facility] 15:01:00 15:01:00 r ve Heart 3m1-4ie3-2 l Care PA 731-629c50 [facility] nn e60c6c 2012-12-23 2012-12-23 Unknown nullFlavo Comprehensi 93b9 8b7b-c [facility] 15:01:00 15:01:00 r ve Heart dbc-469c-a l Care PA x7b-j5qola [facility] nn 06f37e 2012-12-23 2012-12-23 Unknown nullFlavo Comprehensi 8e3f d169-9 [facility]oria 15:01:00 15:01:00 r ve Heart 856-46c0-a l Care PA 12b-4k925e [facility] nn r6p417 2012-12-23 2012-12-23 Unknown nullFlavo Comprehensi 041f 1058-b [facility] 15:01:00 15:01:00 r ve Heart 8ae-4c36-8 l Care PA u65-ik269a [facility] nn mn013k 2012-12-23 2012-12-23 Unknown nullFlavo Comprehensi a7c2 54c0-3 [facility] 15:01:00 15:01:00 r ve Heart 6e3-7333-4 l Care PA df2-3a4ae8 [facility] nn a77f27 2012-12-23 2012-12-23 Unknown nullFlavo Comprehensi 903e 848f-7 [facility] 15:01:00 15:01:00 r ve Heart 672-4d08-9 l Care PA ab7-ba9ea8 [facility] nn 1s484m 2012-12-23 2012-12-23 Unknown nullFlavo Comprehensi 87e8 f3ea-9 [facility] 15:01:00 15:01:00 r ve Heart 7x1-6347-x l Care PA ef6-7c77e7 [facility] nn t6l715 2012-12-23 2012-12-23 Unknown nullFlavo Comprehensi b229 b4e2-1 [facility] 15:01:00 15:01:00 r ve Heart 608-41bd-a l Care PA 8m1-53qm0j [facility]lee nn c662b0 2012-12-23 2012-12-23 Unknown nullFlavo Comprehensi a1ac 53e6-5 [facility] 15:01:00 15:01:00 r ve Heart 136-481e-b l Care PA 313-c5s399 Haylee nn 8d03af 2012-12-23 2012-12-23 Unknown nullFlavo Comprehensi 1828 b6f8-7 [facility] 15:01:00 15:01:00 r ve Heart 63d-45fc-8 l Care PA 648-815d7d Haylee nn dccbcf 2012-12-23 2012-12-23 Unknown nullFlavo Comprehensi 4bf5 332a-d [facility] 15:01:00 15:01:00 r ve Heart 1j1-21m8-i l Care PA 634-r9t770 [facility] nn 2832c4 2012-12-23 2012-12-23 Unknown nullFlavo Comprehensi 2385 a0e4-9 [facility] 15:01:00 15:01:00 r ve Heart dbe-46e0-a l Care PA dfb-iy7963 [facility]lee nn 8d1ae5 2012-12-23 2012-12-23 Unknown nullFlavo Comprehensi be25 abaf-5 [facility] 15:01:00 15:01:00 r ve Heart 263-40c1-a l Care PA 6x7-318060 Haylee nn 73a2d9 2012-12-23 2012-12-23 Unknown nullFlavo Comprehensi a08a 9be8-9 [facility] 15:01:00 15:01:00 r ve Heart 674-4877-8 l Care PA 08e-a5ba54 Haylee nn 9y813c 2012-12-23 2012-12-23 Unknown nullFlavo Comprehensi c211 1b3f-f [facility] 15:01:00 15:01:00 r ve Heart 4o9-6043-1 l Care PA 57e-6fd2fa Haylee nn 948fde 2012-12-23 2012-12-23 Unknown nullFlavo Comprehensi 0306 9b22-7 [facility] 15:01:00 15:01:00 r ve Heart 1h1-61d6-r l Care PA 691-94aa4d [facility] nn 5yz052 2012-12-23 2012-12-23 Unknown nullFlavo Comprehensi feae 8e5e-b [facility] 15:01:00 15:01:00 r ve Heart 048-43ce-9 l Care PA 2y6-303z28 [facility] nn 331253 5566-04-12 2012-12-23 Unknown nullFlavo Comprehensi 49b2 899b-3 [facility] 15:01:00 15:01:00 r ve Heart 93f-4a56-b l Care PA c11-gh76n1 [facility] nn s38312 2012-12-23 2012-12-23 Unknown nullFlavo Comprehensi 6a21 924f-1 [facility] 15:01:00 15:01:00 r ve Heart 6ef-4122-9 l Care PA 84a-811bf0 [facility] nn 5ow225 2012-12-23 2012-12-23 Unknown nullFlavo Comprehensi 64bc c214-8 [facility] 15:01:00 15:01:00 r ve Heart o7u-5863-5 l Care PA 7a3-m726bd [facility] nn q97827 2012-12-23 2012-12-23 Unknown nullFlavo Comprehensi 80ea eebc-8 [facility] 15:01:00 15:01:00 r ve Heart cf4-4f82-9 l Care PA ee3-54g909 [facility] nn h85985 2012-12-23 2012-12-23 Unknown nullFlavo Comprehensi 866b 9438-7 [facility] 15:01:00 15:01:00 r ve Heart 705-4798-b l Care PA p82-nq3138 [facility] nn cc43ad 2012-12-23 2012-12-23 Unknown nullFlavo Comprehensi 1535 6332-3 [facility] 15:01:00 15:01:00 r ve Heart 2l4-19mk-3 l Care PA 7ec-19dc9e [facility] nn v8c507 2012-12-23 2012-12-23 Unknown nullFlavo Comprehensi 7f24 e44e-8 [facility] 15:01:00 15:01:00 r ve Heart c42-954z-i l Care PA 18c-7b8fa7 [facility]lee nn dc80a0 2012-12-23 2012-12-23 Unknown nullFlavo Comprehensi e674 6877-d [facility] 15:01:00 15:01:00 r ve Heart 0o3-1fj4-7 l Care PA 731-629c50 [facility]lee nn e60c6c 2012-12-23 2012-12-23 Unknown nullFlavo Comprehensi 93b9 8b7b-c [facility] 15:01:00 15:01:00 r ve Heart dbc-469c-a l Care PA u7d-c9snib [facility]lee nn 06f37e 2012-12-23 2012-12-23 Unknown nullFlavo Comprehensi 8e3f d169-9 [facility] 15:01:00 15:01:00 r ve Heart 856-46c0-a l Care PA 12b-6y469m [facility]lee nn r6z472 2012-12-23 2012-12-23 Unknown nullFlavo Comprehensi 041f 1058-b [facility] 15:01:00 15:01:00 r ve Heart 8ae-4c36-8 l Care PA b53-fr397s [facility] nn eh310w 2012-12-23 2012-12-23 Unknown nullFlavo Comprehensi a7c2 54c0-3 [facility] 15:01:00 15:01:00 r ve Heart 2s1-3683-5 l Care PA df2-3a4ae8 [facility] nn a77f27 2012-12-23 2012-12-23 Unknown nullFlavo Comprehensi 903e 848f-7 [facility] 15:01:00 15:01:00 r ve Heart 672-4d08-9 l Care PA ab7-ba9ea8 [facility]lee nn 2i483w 2012-12-23 2012-12-23 Unknown nullFlavo Comprehensi 87e8 f3ea-9 [facility] 15:01:00 15:01:00 r ve Heart 2a3-3673-z l Care PA ef6-7c77e7 [facility] nn m9t652 2012-12-23 2012-12-23 Unknown nullFlavo Comprehensi b229 b4e2-1 [facility] 15:01:00 15:01:00 r ve Heart 608-41bd-a l Care PA 0c3-61na7g [facility] nn c662b0 2012-12-23 2012-12-23 Unknown nullFlavo Comprehensi a1ac 53e6-5 [facility] 15:01:00 15:01:00 r ve Heart 136-481e-b l Care PA 313-x9x830 [facility] nn 8d03af 2012-12-23 2012-12-23 Unknown nullFlavo Comprehensi 1828 b6f8-7 [facility] 15:01:00 15:01:00 r ve Heart 63d-45fc-8 l Care PA 648-815d7d [facility] nn dccbcf 2012-12-23 2012-12-23 Unknown nullFlavo Comprehensi 4bf5 332a-d [facility] 15:01:00 15:01:00 r ve Heart 0q3-23u7-n l Care PA 634-o1f302 Haylee nn 2832c4 2012-12-23 2012-12-23 Unknown nullFlavo Comprehensi 2385 a0e4-9 [facility] 15:01:00 15:01:00 r ve Heart dbe-46e0-a l Care PA dfb-tc6405 [facility] nn 8d1ae5 2012-12-23 2012-12-23 Unknown nullFlavo Comprehensi be25 abaf-5 [facility] 15:01:00 15:01:00 r ve Heart 263-40c1-a l Care PA 6f1-857935 [facility] nn 73a2d9 2012-12-23 2012-12-23 Unknown nullFlavo Comprehensi a08a 9be8-9 [facility] 15:01:00 15:01:00 r ve Heart 674-4877-8 l Care PA 08e-a5ba54 [facility] nn 5q907d 2012-12-23 2012-12-23 Unknown nullFlavo Comprehensi c211 1b3f-f [facility] 15:01:00 15:01:00 r ve Heart 9c7-8359-2 l Care PA 57e-6fd2fa [facility] nn 948fde 2012-12-23 2012-12-23 Unknown nullFlavo Comprehensi 0306 9b22-7 [facility] 15:01:00 15:01:00 r ve Heart 4j6-68g4-n l Care PA 691-94aa4d [facility] nn 4ty745 2012-12-23 2012-12-23 Unknown nullFlavo Comprehensi feae 8e5e-b [facility] 15:01:00 15:01:00 r ve Heart 048-43ce-9 l Care PA 2c8-578p53 [facility] nn 903084 5108-04-12 2012-12-23 Unknown nullFlavo Comprehensi 49b2 899b-3 [facility] 15:01:00 15:01:00 r ve Heart 93f-4a56-b l Care PA p52-ni44p7 [facility] nn v43343 2012-12-23 2012-12-23 Unknown nullFlavo Comprehensi 6a21 924f-1 [facility] 15:01:00 15:01:00 r ve Heart 6ef-4122-9 l Care PA 84a-811bf0 [facility] nn 3cr359 2012-12-23 2012-12-23 Unknown nullFlavo Comprehensi 64bc c214-8 Mem[facility] 15:01:00 15:01:00 r ve Heart x8s-8258-3 l Care PA 8a4-v117vw [facility] nn a80029 2012-12-23 2012-12-23 Unknown nullFlavo Comprehensi 80ea eebc-8 [facility] 15:01:00 15:01:00 r ve Heart cf4-4f82-9 l Care PA ee3-33g554 [facility] nn f71788 2012-12-23 2012-12-23 Unknown nullFlavo Comprehensi 866b 9438-7 [facility] 15:01:00 15:01:00 r ve Heart 705-4798-b l Care PA f02-go9547 [facility] nn cc43ad 2012-12-23 2012-12-23 Unknown nullFlavo Comprehensi 1535 6332-3 [facility] 15:01:00 15:01:00 r ve Heart 9o3-75au-6 l Care PA 7ec-19dc9e [facility] nn r3j722 2012-12-23 2012-12-23 Outpatient Comprehen Comprehensi 2 64490 [facility]inic 10:01:00 10:01:00 [facility] PA Care PA 2012-12-23 2012-12-23 Outpatient Comprehen Comprehensi 2 04724 [facility]Clinic 10:01:00 10:01:00 [facility] PA Care PA 2012-12-22 2012-12-22 Unknown nullFlavo Comprehensi 2775 d282-4 [facility] 16:30:00 16:30:00 r ve Heart 552-47fc-9 l Care PA cb0-tj1894 [facility] nn 54a9ea 2012-12-22 2012-12-22 Unknown nullFlavo Comprehensi c724 3faf-9 [facility] 16:30:00 16:30:00 r ve Heart 3ad-499a-8 l Care PA 3cb-7f5cf8 [facility] nn 73c7ed 2012-12-22 2012-12-22 Unknown nullFlavo Comprehensi 11a5 d98d-d [facility] 16:30:00 16:30:00 r ve Heart d54-795e-q l Care PA 7i0-62v46o [facility] nn 3n4628 2012-12-22 2012-12-22 Unknown nullFlavo Comprehensi cd08 afac-e [facility] 16:30:00 16:30:00 r ve Heart l60-3i90-k l Care PA o5s-v44330 [facility] nn 3b6c3b 2012-12-22 2012-12-22 Unknown nullFlavo Comprehensi 88dc f901-2 [facility] 16:30:00 16:30:00 r ve Heart 682-4719-9 l Care PA m9h-54cz4i [facility] nn 03fe52 2012-12-22 2012-12-22 Unknown nullFlavo Comprehensi ee7d e2a0-2 [facility] 16:30:00 16:30:00 r ve Heart s5w-9n37-5 l Care PA dd6-21b48a [facility] nn d05304 2012-12-22 2012-12-22 Unknown nullFlavo Comprehensi b39e 51ec-c [facility] 16:30:00 16:30:00 r ve Heart aa3-4ca9-b l Care PA 7r2-141c02 [facility] nn 9351e6 2012-12-22 2012-12-22 Unknown nullFlavo Comprehensi 5846 0feb-6 [facility] 16:30:00 16:30:00 r ve Heart h47-4261-d l Care PA 5fc-2cbdad [facility] nn 65b55a 2012-12-22 2012-12-22 Unknown nullFlavo Comprehensi 70f8 f8a9-e [facility] 16:30:00 16:30:00 r ve Heart 7aa-476e-9 l Care PA 612-e5b5b2 [facility]lee nn 5999a4 2012-12-22 2012-12-22 Unknown nullFlavo Comprehensi 42fc 4f11-8 [facility] 16:30:00 16:30:00 [facility] ve Heart ccf-4585-a l Care PA [id number]-db6c71 Haylee nn [id number] 2012-12-22 2012-12-22 Unknown nullFlavo Comprehensi 8794 3ae4-f [facility] 16:30:00 16:30:00 [facility] ve Heart 8j2-79i3-6 l Care PA [id number]-80a649 Haylee nn 6ba0a3 2012-12-22 2012-12-22 Unknown nullFlavo Comprehensi 690c ad11-f [facility] 16:30:00 16:30:00 [facility] ve Heart 359-48d3-b l Care PA 144-e0dceb Haylee nn a415a7 2012-12-22 2012-12-22 Unknown nullFlavo Comprehensi 2775 d282-4 [facility] 16:30:00 16:30:00 [facility] ve Heart 552-47fc-9 l Care PA [id number]-ft2459 Haylee nn 54a9ea 2012-12-22 2012-12-22 Unknown nullFlavo Comprehensi cd08 afac-e [facility] 16:30:00 16:30:00 [facility] ve Heart r90-9m76-j l Care PA [id number]-[id number] Haylee nn 3b6c3b 2012-12-22 2012-12-22 Unknown nullFlavo Comprehensi 88dc f901-2 [facility] 16:30:00 16:30:00 r ve Heart 682-4719-9 l Care PA i8x-62gu1d Haylee nn 03fe52 2012-12-22 2012-12-22 Unknown nullFlavo Comprehensi c724 3faf-9 [facility] 16:30:00 16:30:00 r ve Heart 3ad-499a-8 l Care PA 3cb-7f5cf8 Haylee nn 73c7ed 2012-12-22 2012-12-22 Unknown nullFlavo Comprehensi 11a5 d98d-d [facility] 16:30:00 16:30:00 r ve Heart j74-717f-q l Care PA [id number] [facility] nn 5m1960 2012-12-22 2012-12-22 Unknown nullFlavo Comprehensi 42fc 4f11-8 [facility]oria 16:30:00 16:30:00 r ve Heart ccf-4585-a l Care PA [id number]-db6c71 [facility] nn 19d033 2012-12-22 2012-12-22 Unknown nullFlavo Comprehensi ee7d e2a0-2 [facility]oria 16:30:00 16:30:00 r ve Heart d7m-7d90-7 l Care PA dd6-21b48a [facility] nn [id number] 2012-12-22 2012-12-22 Unknown nullFlavo Comprehensi b39e 51ec-c [facility] 16:30:00 16:30:00 r ve Heart aa3-4ca9-b l Care PA [id number] [facility] nn [id number] 2012-12-22 2012-12-22 Unknown nullFlavo Comprehensi 690c ad11-f [facility] 16:30:00 16:30:00 r ve Heart 359-48d3-b l Care PA 144-e0dceb [facility] nn a415a7 2012-12-22 2012-12-22 Unknown nullFlavo Comprehensi 8794 3ae4-f [facility] 16:30:00 16:30:00 r ve Heart 4y5-09e3-7 l Care PA 45c-70e985 [facility] nn 6ba0a3 2012-12-22 2012-12-22 Unknown nullFlavo Comprehensi 5846 0feb-6 [facility] 16:30:00 16:30:00 r ve Heart u20-5655-i l Care PA 5fc-2cbdad [facility] nn 65b55a 2012-12-22 2012-12-22 Unknown nullFlavo Comprehensi 70f8 f8a9-e [facility]oria 16:30:00 16:30:00 r ve Heart 7aa-476e-9 l Care PA 612-e5b5b2 Haylee nn 5999a4 2012-12-22 2012-12-22 Unknown nullFlavo Comprehensi 2775 d282-4 [facility] 16:30:00 16:30:00 r ve Heart 552-47fc-9 l Care PA [id number]-yn2716 Haylee nn 54a9ea 2012-12-22 2012-12-22 Unknown nullFlavo Comprehensi cd08 afac-e [facility] 16:30:00 16:30:00 r ve Heart m05-9d20-u l Care PA [id number]-i72969 Haylee nn 3b6c3b 2012-12-22 2012-12-22 Unknown nullFlavo Comprehensi 88dc f901-2 [facility] 16:30:00 16:30:00 r ve Heart 682-4719-9 l Care PA c3r-60nt6l Haylee nn 03fe52 2012-12-22 2012-12-22 Unknown nullFlavo Comprehensi c724 3faf-9 [facility] 16:30:00 16:30:00 r ve Heart 3ad-499a-8 l Care PA 3cb-7f5cf8 Haylee nn 73c7ed 2012-12-22 2012-12-22 Unknown nullFlavo Comprehensi 11a5 d98d-d [facility] 16:30:00 16:30:00 [facility] ve Heart o64-991b-d l Care PA 0w4-59w39y Haylee nn 3z3339 2012-12-22 2012-12-22 Unknown nullFlavo Comprehensi 42fc 4f11-8 [facility] 16:30:00 16:30:00 r ve Heart ccf-4585-a l Care PA 4cc-db6c71 Haylee nn 69k576 2012-12-22 2012-12-22 Unknown nullFlavo Comprehensi ee7d e2a0-2 [facility] 16:30:00 16:30:00 [facility] ve Heart h9y-9f56-6 l Care PA dd6-21b48a Haylee nn [id number] 2012-12-22 2012-12-22 Unknown nullFlavo Comprehensi b39e 51ec-c [facility] 16:30:00 16:30:00 r ve Heart aa3-4ca9-b l Care PA [id number] [facility] nn [id number] 2012-12-22 2012-12-22 Unknown nullFlavo Comprehensi 690c ad11-f [facility] 16:30:00 16:30:00 r ve Heart 359-48d3-b l Care PA 144-e0dceb [facility] nn a415a7 2012-12-22 2012-12-22 Unknown nullFlavo Comprehensi 8794 3ae4-f [facility] 16:30:00 16:30:00 r ve Heart 7a6-54v2-5 l Care PA 45c-99y817 [facility] nn 6ba0a3 2012-12-22 2012-12-22 Unknown nullFlavo Comprehensi 5846 0feb-6 [facility] 16:30:00 16:30:00 r ve Heart b50-4827-a l Care PA 5fc-2cbdad [facility] nn 65b55a 2012-12-22 2012-12-22 Unknown nullFlavo Comprehensi 70f8 f8a9-e [facility] 16:30:00 16:30:00 r ve Heart 7aa-476e-9 l Care PA 612-e5b5b2 [facility] nn 5999a4 2012-12-22 2012-12-22 Unknown nullFlavo Comprehensi 9c9d 5009-6 [facility] 15:30:00 15:30:00 r ve Heart ad5-4d64-b l Care PA 18c-0ea44c [facility] nn hh1219 2012-12-22 2012-12-22 Unknown nullFlavo Comprehensi fa1a bd01-6 [facility] 15:30:00 15:30:00 r ve Heart dc5-4969-8 l Care PA 6ca-cd20cd [facility] nn [id number] 3977-04-11 2012-12-22 Unknown nullFlavo Comprehensi 6f73 b777-9 [facility] 15:30:00 15:30:00 r ve Heart y32-627g-z l Care PA 127-efab70 [facility] nn 50x968 2012-12-22 2012-12-22 Unknown nullFlavo Comprehensi 5b3b 71ae-f [facility] 15:30:00 15:30:00 r ve Heart beb-4c88-9 l Care PA 15b-252374 [facility] nn 1ffd33 2012-12-22 2012-12-22 Unknown nullFlavo Comprehensi 76e6 e079-0 [facility] 15:30:00 15:30:00 r ve Heart 08e-46ec-8 l Care PA 75a-8e42fd Haylee nn d7b9aa 2012-12-22 2012-12-22 Unknown nullFlavo Comprehensi d084 93f2-8 [facility] 15:30:00 15:30:00 r ve Heart 0s8-1e20-x l Care PA r35-07u813 Haylee nn cf06c8 2012-12-22 2012-12-22 Unknown nullFlavo Comprehensi 5b93 458f-b Memoria 15:30:00 15:30:00 r ve Heart 474-46c1-b l Care PA 33d-eafd77 Haylee nn 1w1915 2012-12-22 2012-12-22 Unknown nullFlavo Comprehensi a190 5968-2 Memoria 15:30:00 15:30:00 r ve Heart 2de-4339-b l Care PA 512-6ht453 Haylee nn 764fe4 2012-12-22 2012-12-22 Unknown nullFlavo Comprehensi f4a1 34aa-6 Memoria 15:30:00 15:30:00 r ve Heart y75-9165-k l Care PA 914-f56c49 Haylee nn 278e59 [...] r ve Heart cd7-499f-9 l Care PA bd7-q7t030 Haylee nn efa5db 2012-12-22 2012-12-22 Unknown nullFlavo Comprehensi 6044 de7d-5 Memoria 15:30:00 15:30:00 r ve Heart 018-4a89-8 l Care PA 453-1dcc15 Haylee nn jh5526 2012-12-22 2012-12-22 Unknown nullFlavo Comprehensi eb9a 6c2b-c Memoria 15:30:00 15:30:00 r ve Heart m93-4r51-9 l Care PA 03c-q5i836 [facility] nn [id number] 4907-04-11 2012-12-22 Unknown nullFlavo Comprehensi 57b5 b8c4-5 Memoria 15:30:00 15:30:00 r ve Heart 324-43a3-a l Care PA 324-985290 Haylee nn 8z512q 2012-12-22 2012-12-22 Unknown nullFlavo Comprehensi 3322 8280-0 Memoria 15:30:00 15:30:00 r ve Heart 4z8-830w-o l Care PA z5u-o49p54 [facility] nn 6163b2 2012-12-22 2012-12-22 Unknown nullFlavo Comprehensi b6f4 cc37-6 Memoria 15:30:00 15:30:00 r ve Heart bff-40ee-9 l Care PA k18-745agv Haylee nn 7e4e06 2012-12-22 2012-12-22 Unknown nullFlavo Comprehensi b2e8 ed4b-0 Memoria 15:30:00 15:30:00 r ve Heart s36-1031-b l Care PA 782-831b6d Haylee nn 3ed89d 2012-12-22 2012-12-22 Unknown nullFlavo Comprehensi 3e5c 92cd-b Memoria 15:30:00 15:30:00 r ve Heart aa9-4bf6-8 l Care PA q54-u51363 Haylee nn 127ae2 2012-12-22 2012-12-22 Unknown nullFlavo Comprehensi 36cf 1762-4 Memoria 15:30:00 15:30:00 r ve Heart 579-412a-8 l Care PA 9a5-3vnu26 Haylee nn 08df88 2012-12-22 2012-12-22 Unknown nullFlavo Comprehensi 2bcd 86a4-7 Memoria 15:30:00 15:30:00 r ve Heart 418-47a9-a l Care PA o8z-018k4h Haylee nn 5d0b93 2012-12-22 2012-12-22 Unknown nullFlavo Comprehensi b87c 923d-9 Memoria 15:30:00 15:30:00 r ve Heart 278-4818-b l Care PA 052-236cb3 Haylee nn f2o025 2012-12-22 2012-12-22 Unknown nullFlavo Comprehensi 80d7 69ff-9 Memoria 15:30:00 15:30:00 r ve Heart r95-410h-l l Care PA 86a-5715c7 Haylee nn 403b38 2012-12-22 2012-12-22 Unknown nullFlavo Comprehensi 2bcd 86a4-7 Memoria 15:30:00 15:30:00 r ve Heart 418-47a9-a l Care PA x9r-940p3g Haylee nn 5d0b93 2012-12-22 2012-12-22 Unknown nullFlavo Comprehensi 76e6 e079-0 Memoria 15:30:00 15:30:00 r ve Heart 08e-46ec-8 l Care PA 75a-8e42fd Haylee nn d7b9aa 2012-12-22 2012-12-22 Unknown nullFlavo Comprehensi fa1a bd01-6 Memoria 15:30:00 15:30:00 r ve Heart dc5-4969-8 l Care PA 6ca-cd20cd Haylee nn 605893 5862-04-11 2012-12-22 Unknown nullFlavo Comprehensi 5b3b 71ae-f Memoria 15:30:00 15:30:00 r ve Heart beb-4c88-9 l Care PA 15b-462721 Haylee nn 1ffd33 2012-12-22 2012-12-22 Unknown nullFlavo Comprehensi ee58 bd7c-8 Memoria 15:30:00 15:30:00 r ve Heart 4cf-4d47-a l Care PA dc9-286fd7 Haylee nn a0f1b9 2012-12-22 2012-12-22 Unknown nullFlavo Comprehensi 6f73 b777-9 Memoria 15:30:00 15:30:00 r ve Heart w92-673s-j l Care PA 127-efab70 Haylee nn 43k241 2012-12-22 2012-12-22 Unknown nullFlavo Comprehensi d974 86d3-5 Memoria 15:30:00 15:30:00 r ve Heart 46b-42c2-8 l Care PA 004-bf48db [facility] nn 5aa8eb 2012-12-22 2012-12-22 Unknown nullFlavo Comprehensi f4a1 34aa-6 Memoria 15:30:00 15:30:00 r ve Heart i05-3412-s l Care PA 914-f56c49 [facility] nn 278e59 2012-12-22 2012-12-22 Unknown nullFlavo Comprehensi a190 5968-2 Memoria 15:30:00 15:30:00 r ve Heart 2de-4339-b l Care PA 512-0ws309 [facility] nn 764fe4 2012-12-22 2012-12-22 Unknown nullFlavo Comprehensi b87c 923d-9 Memoria 15:30:00 15:30:00 r ve Heart 278-4818-b l Care PA 052-236cb3 [facility] nn p5a434 2012-12-22 2012-12-22 Unknown nullFlavo Comprehensi 9c9d 5009-6 Memoria 15:30:00 15:30:00 r ve Heart ad5-4d64-b l Care PA 18c-0ea44c [facility] nn hc4775 2012-12-22 2012-12-22 Unknown nullFlavo Comprehensi eb9a 6c2b-c Memoria 15:30:00 15:30:00 r ve Heart k60-8t54-9 l Care PA 03c-x4g227 [facility] nn 028346 0327-04-11 2012-12-22 Unknown nullFlavo Comprehensi 5b93 458f-b Memoria 15:30:00 15:30:00 r ve Heart 474-46c1-b l Care PA 33d-eafd77 [facility] nn 3t2358 2012-12-22 2012-12-22 Unknown nullFlavo Comprehensi 6044 de7d-5 Memoria 15:30:00 15:30:00 r ve Heart 018-4a89-8 l Care PA 453-1dcc15 [facility] nn yq7345 2012-12-22 2012-12-22 Unknown nullFlavo Comprehensi 57b5 b8c4-5 Memoria 15:30:00 15:30:00 r ve Heart 324-43a3-a l Care PA 324-523331 Haylee nn 5b558b 2012-12-22 2012-12-22 Unknown nullFlavo Comprehensi 3322 8280-0 Memoria 15:30:00 15:30:00 r ve Heart 3g3-503d-l l Care PA v9d-u67c62 Haylee nn 6163b2 2012-12-22 2012-12-22 Unknown nullFlavo Comprehensi b6f4 cc37-6 Memoria 15:30:00 15:30:00 r ve Heart bff-40ee-9 l Care PA l26-897xor Haylee nn 7e4e06 2012-12-22 2012-12-22 Unknown nullFlavo Comprehensi b2e8 ed4b-0 Memoria 15:30:00 15:30:00 r ve Heart d26-3252-g l Care PA 782-831b6d Haylee nn 3ed89d 2012-12-22 2012-12-22 Unknown nullFlavo Comprehensi 3e5c 92cd-b Memoria 15:30:00 15:30:00 r ve Heart aa9-4bf6-8 l Care PA t21-i76002 Haylee nn 127ae2 2012-12-22 2012-12-22 Unknown nullFlavo Comprehensi a0b3 9c86-9 Memoria 15:30:00 15:30:00 r ve Heart cd7-499f-9 l Care PA bd7-j4k544 Haylee nn efa5db 2012-12-22 2012-12-22 Unknown nullFlavo Comprehensi 80d7 69ff-9 Memoria 15:30:00 15:30:00 r ve Heart k73-042i-p l Care PA 86a-5715c7 Haylee nn 403b38 2012-12-22 2012-12-22 Unknown nullFlavo Comprehensi d084 93f2-8 Memoria 15:30:00 15:30:00 r ve Heart 7x1-1k43-y l Care PA n34-82i928 Haylee nn cf06c8 2012-12-22 2012-12-22 Unknown nullFlavo Comprehensi 36cf 1762-4 Memoria 15:30:00 15:30:00 r ve Heart 579-412a-8 l Care PA 5x2-4aoi62 Haylee nn 08df88 2012-12-22 2012-12-22 Unknown nullFlavo Comprehensi 2bcd 86a4-7 Memoria 15:30:00 15:30:00 r ve Heart 418-47a9-a l Care PA t4a-780f5x Haylee nn 5d0b93 2012-12-22 2012-12-22 Unknown nullFlavo Comprehensi 76e6 e079-0 Memoria 15:30:00 15:30:00 r ve Heart 08e-46ec-8 l Care PA 75a-8e42fd Haylee nn d7b9aa 2012-12-22 2012-12-22 Unknown nullFlavo Comprehensi fa1a bd01-6 Memoria 15:30:00 15:30:00 r ve Heart dc5-4969-8 l Care PA 6ca-cd20cd Haylee nn 281937 8724-04-11 2012-12-22 Unknown nullFlavo Comprehensi 5b3b 71ae-f Memoria 15:30:00 15:30:00 r ve Heart beb-4c88-9 l Care PA 15b-999467 Haylee nn 1ffd33 2012-12-22 2012-12-22 Unknown nullFlavo Comprehensi ee58 bd7c-8 Memoria 15:30:00 15:30:00 r ve Heart 4cf-4d47-a l Care PA dc9-286fd7 Haylee nn a0f1b9 2012-12-22 2012-12-22 Unknown nullFlavo Comprehensi 6f73 b777-9 Memoria 15:30:00 15:30:00 r ve Heart z30-457d-b l Care PA 127-efab70 Haylee nn 89x428 2012-12-22 2012-12-22 Unknown nullFlavo Comprehensi d974 86d3-5 Memoria 15:30:00 15:30:00 r ve Heart 46b-42c2-8 l Care PA 004-bf48db Haylee nn 5aa8eb 2012-12-22 2012-12-22 Unknown nullFlavo Comprehensi f4a1 34aa-6 Memoria 15:30:00 15:30:00 r ve Heart o21-9929-g l Care PA 914-f56c49 Haylee nn 278e59 2012-12-22 2012-12-22 Unknown nullFlavo Comprehensi a190 5968-2 Memoria 15:30:00 15:30:00 r ve Heart 2de-4339-b l Care PA 512-7zl121 Haylee nn 764fe4 2012-12-22 2012-12-22 Unknown nullFlavo Comprehensi b87c 923d-9 Memoria 15:30:00 15:30:00 r ve Heart 278-4818-b l Care PA 052-236cb3 Haylee nn w4a581 2012-12-22 2012-12-22 Unknown nullFlavo Comprehensi 9c9d 5009-6 Memoria 15:30:00 15:30:00 r ve Heart ad5-4d64-b l Care PA 18c-0ea44c [facility] nn iu5630 2012-12-22 2012-12-22 Unknown nullFlavo Comprehensi eb9a 6c2b-c Memoria 15:30:00 15:30:00 r ve Heart m74-3i01-6 l Care PA 03c-y1u266 Haylee nn 029019 0545-04-11 2012-12-22 Unknown nullFlavo Comprehensi 5b93 458f-b Memoria 15:30:00 15:30:00 r ve Heart 474-46c1-b l Care PA 33d-eafd77 [facility] nn 2h2732 2012-12-22 2012-12-22 Unknown nullFlavo Comprehensi 6044 de7d-5 Memoria 15:30:00 15:30:00 r ve Heart 018-4a89-8 l Care PA 453-1dcc15 [facility] nn ha7405 2012-12-22 2012-12-22 Unknown nullFlavo Comprehensi 57b5 b8c4-5 Memoria 15:30:00 15:30:00 r ve Heart 324-43a3-a l Care PA 324-557833 Haylee nn 5l140w 2012-12-22 2012-12-22 Unknown nullFlavo Comprehensi 3322 8280-0 Memoria 15:30:00 15:30:00 r ve Heart 7d8-280b-x l Care PA e2g-g07d67 [facility] nn 6163b2 2012-12-22 2012-12-22 Unknown nullFlavo Comprehensi b6f4 cc37-6 Memoria 15:30:00 15:30:00 r ve Heart bff-40ee-9 l Care PA m37-025cej [facility] nn 7e4e06 2012-12-22 2012-12-22 Unknown nullFlavo Comprehensi b2e8 ed4b-0 Memoria 15:30:00 15:30:00 r ve Heart n69-2066-c l Care PA 782-831b6d [facility] nn 3ed89d 2012-12-22 2012-12-22 Unknown nullFlavo Comprehensi 3e5c 92cd-b Memoria 15:30:00 15:30:00 r ve Heart aa9-4bf6-8 l Care PA u40-g59105 [facility] nn 127ae2 2012-12-22 2012-12-22 Unknown nullFlavo Comprehensi a0b3 9c86-9 Memoria 15:30:00 15:30:00 r ve Heart cd7-499f-9 l Care PA bd7-w1e198 [facility] nn efa5db 2012-12-22 2012-12-22 Unknown nullFlavo Comprehensi 80d7 69ff-9 Memoria 15:30:00 15:30:00 r ve Heart t44-156a-w l Care PA 86a-5715c7 [facility] nn 403b38 2012-12-22 2012-12-22 Unknown nullFlavo Comprehensi d084 93f2-8 Memoria 15:30:00 15:30:00 r ve Heart 8y2-8z70-u l Care PA t26-21z750 [facility] nn cf06c8 2012-12-22 2012-12-22 Unknown nullFlavo Comprehensi 36cf 1762-4 Memoria 15:30:00 15:30:00 r ve Heart 579-412a-8 l Care PA 7e3-8dvp18 [facility] nn 08df88 2012-12-22 2012-12-22 Outpatient Comprehen Comprehensi 2 87689 eClinic 10:30:00 10:30:00 sive ve [facility] alWor nd Heart Care PA Care PA 2012-12-22 2012-12-22 Outpatient Comprehen Comprehensi 2 19887 eClinic 10:30:00 10:30:00 sive ve Heart alWor ks Heart Care PA Care PA Results Test Description Test Time Test Comments Results Result [facility] babak Comments - CTA HEART W CN 2023-04-17 [facility] 1940 Sex: F Name: JIMY NARVAEZ [facility] : 1940 Age/S: 83 / F [address] [place] [address] Blvd Unit #: [id number] Loc: [place] [address] Phys: Josselyn Bates MD Cardiology Acct: [id number] Dis Date: Status: DEP CLI PHONE #: [phone] Exam Date: 04/15/2023 1505 FAX #: [phone] Reason: EXAMS: CPT CODE: [id number] CTA HEART W CN ART/GRAFTS 32001 PROCEDURE INFORMATION: Exam: CTA Heart And Coronary Arteries With Contrast Exam date and time: 04/15/2023 2:33 PM Age: 83 years old Clinical indication: Condition or disease; Other: A-fib TECHNIQUE: Imaging protocol: CT angiography of the heart, coronary arteries, and bypass grafts (when present) with contrast including 3D image postprocessing. Standard prospective cardiac-gated CAC scoring protocol was used for image acquisition. Following intravenous contrast administration, ECG gated CTA was performed. 3D rendering (Not supervised by radiologist): MIP and/or 3D reconstructed images were created by the technologist. Cardiac gating: Retrospective Gating Radiation optimization: All CT scans at this facility use at least one of these dose optimization techniques: automated exposure control; mA and/or kV adjustment per patient size (includes targeted exams where dose is matched to clinical indication); or iterative reconstruction. Contrast material: ISOUVE 370; Contrast volume: 100 ml; Contrast route: INTRAVENOUS (IV); Pharmacological intervention: None. REPORTING DATA: Count of CT and Cardiac NM exams in prior 12 months: This patient has received 0 known CTs and 0 known cardiac nuclear medicine studies in the 12 months prior to the current study. COMPARISON: No relevant prior studies available. FINDINGS: CARDIAC: Left main coronary artery (LMCA): The left main coronary artery is a medium caliber vessel that bifurcates to form a left anterior descending artery and a left circumflex artery. The left main coronary artery is patent with no evidence plaque or stenosis. Left anterior descending artery (LAD): Patent coronary stent within the proximal LAD. The mid and distal LAD segments are diminutive, such that significant stenosis cannot be excluded. Left circumflex artery (LCx): Calcified plaque is present within the proximal LCX associated with minimal to mild stenosis, less than 50% narrowing. The distal segment is small and not well evaluated by CT angiography. Right coronary artery (RCA): Calcified plaque is present throughout the proximal and mid segments associated with minimal PAGE 1 Signed Report (CONTINUED) Name: BRICEJIMY Theodora [facility] : 1940 Age/S: 83 / F [address] [place] [address] Blvd Unit #: [id number] Loc: [place] [address] Phys: Josselyn Bates MD Cardiology Acct: [id number] Dis Date: Status: DEP CLI PHONE #: [phone] Exam Date: 04/15/2023 1507 FAX #: [phone] Reason: EXAMS: CPT CODE: [id number] CTA HEART W CN ART/GRAFTS 89704 (Continued) stenosis, less than 25% luminal narrowing. There is abrupt termination of contrast within the posterior descending artery, such that significant stenosis cannot be excluded. Coronary artery dominance: Right Pericardium: No pericardial effusion or thickening. Lungs: Visualized lungs are unremarkable. Mediastinal space: Dilated main pulmonary artery measures 3.9 cm in diameter. Cardiac structure: There is wall thinning and fatty metaplasia throughout the mid to apical ventricular septum, consistent with chronic LAD distribution infarct. IMPRESSION: 1. Potentially obstructive coronary artery disease. The mid and distal LAD segments are diminutive, and significant LAD stenosis cannot be excluded. Further cardiac testing should be considered. In addition, there is abrupt termination of contrast within the posterior descending artery, and significant stenosis cannot be excluded. 2. Minimal to mild stenosis of the LCX, less than 50% narrowing. Minimal stenosis of the RCA, less than 25% narrowing. 3. Dilated main pulmonary artery, which can be observed in the setting of pulmonary hypertension. at 0621 Reported and signed by: Kenneth Sevilla M.D. CC: Josselyn Bates MD Technologist:Miguel Everett Jr, RT(R)(CT); . CTDI: DLP: Trnscb Date/Time: 04/17/2023 (620) t.[email or web address] Orig Print D/T: S: 04/17/2023 (621) PAGE 2 Signed Report TROPONIN I 2023-01-13 06:22:24 Test Item Value Reference Range Interpretation Comme nts TROPONIN I (test code = 9708273197) 0.003 ng/mL <=0.034 VERONICA (test code = [...] biotin. Lab Interpretation (test code = Normal 26452-5) [facility] [id number] 06:19:01 Test Item Value Reference Range Interpretation Comments NT-proBNP (test code = 267 pg/mL <=450 3415983709) VERONICA (test code = VERONICA) Biotin has been reported to cause a negative bias, interpret results relative to patient's use of biotin. Lab Interpretation (test Normal code = 07768-8) [facility]le[facility] METABOLIC PANEL (28212)2023-01-13 06:10:21 Test Item Value Reference Range Interpretation Comments NA (test code = 138 mmol/L 135-145 7009108778) K (test code = 4.1 mmol/L 3.5-5.0 7013034407) CL (test code = 99 mmol/L 98-108 8646970674) CO2 TOTAL (test code = 30 mmol/L 23-31 5526362401) AGAP (test code = 9 2-16 2326498193) BUN (test code = 15 mg/dL 7-23 7728849430) GLUCOSE (test code = 164 mg/dL 70-110 H 6025379548) CREATININE (test code = 0.62 mg/dL 0.50-1.04 1757545840) TOTAL BILI (test code = 0.6 mg/dL 0.1-1.0 3786718277) CALCIUM (test code = 9.1 mg/dL 8.6-10.6 1198692201) T PROTEIN (test code = 6.4 g/dL 6.3-8.2 6105579341) ALBUMIN (test code = 3.7 g/dL 3.5-5.0 1179103915) ALK PHOS (test code = 76 U/L 34-122 6596691014) ALTv (test code = 18 U/L 5-35 1742-6) AST(SGOT) (test code = 21 U/L 13-40 8089300080) eGFR (test code = 91.9 mL/min/1.73m2 9496479862) VERONICA (test code = VERONICA) Association of [...] tests). Lab Interpretation Abnormal (test code = 13109-0) [facility]le[facility]IV[facility] PARTIAL THRMPLAS [id number] 06:09:41 Test Item Value Reference Range Interpretation Comments APTT Patient (test 28 See_Comment [Automat ed code = 3173-2) message] The system which generated this result transmitted reference range : 23 - 38 Seconds . The reference range was not used to interpr et this result as normal/abnormal . VERONICA (test code = VERONICA) The [facility] patient population mean normal value for aPTT is 30 seconds. Lab Interpretation Normal (test code = 52530-7) [facility]lePROTHROMBIN TIME / [id number] 06:07:21 Test Item Value Reference Range Interpretation [...] tions. Lab Interpretation (test Normal code = 74236-5) [facility]le[facility] WITH [id number] 05:56:38 Test Item Value Reference Range Interpretation Comments WBC (test code = 5.98 See_Comment [Automated 4190-2) message] The sy stem which generated this result transmitted reference range : 4.30 - 11.10 10*3/?L. The reference range was not used to interpret this result as normal/abnormal . RBC (test code = 4.59 See_Comment [Automated 789-8) message] The sy stem which generated this [...] RDW-SD (test code = 42.4 fL 39.0-49.9 56307-5) RDW-CV (test code = 12.8 % 12.0-15.5 788-0) PLT (test code = 195 See_Comment [Automated 777-3) message] The sy stem which generated this result transmitted reference range : 166 - 358 10*3/ ?L. The reference r rob was not used to interpret this result as normal/abnormal . MPV (test code = 9.7 fL 9.5-12.9 39586-0) NRBC/100 WBC (test 0.0 See_Comment [Automat ed code = 0725893820) message] The system which generated this result transmitted reference range : 0.0 - 10.0 /100 WBCs. The refer ence range was not u sed to interpret th is result as normal/abnormal . NRBC x10^3 (test code See_Comment [Auto mated = 4389046898) message] The s ystem which generated this result transmitted reference range : 10*3/?L. The reference range was not used to interpret this result as normal/abnormal . GRAN MAT (NEUT) % 70.2 % (test code = 770-8) IMM GRAN % (test code 0.50 % = 4037664445) LYMPH % (test code = 18.4 % 736-9) MONO % (test code = 8.7 % 5905-5) EOS % (test code = 1.7 % 713-8) BASO % (test code = 0.5 % 706-2) GRAN MAT x10^3(ANC) 4.20 10*3/uL 1.88-7.09 (test code = 2983140921) IMM GRAN x10^3 (test 0.03 10*3/uL 0.00-0.06 code = 9060009517) LYMPH x10^3 (test code 1.10 10*3/uL 1.32-3.29 L = 731-0) MONO x10^3 (test code 0.52 10*3/uL 0.33-0.92 = 742-7) EOS x10^3 (test code = 0.10 10*3/uL 0.03-0.39 711-2) BASO x10^3 (test code 0.03 10*3/uL 0.01-0.07 = 704-7) Lab Interpretation Abnormal (test code = 52125-2) [facility] [id number] 22:05:00 Test Item Value Reference Range Interpretation Comments POC glucose (test code = 108 mg/dL 65-99 H Ope rator Name: 09579-5) Camila Villatoro ce ID: [id number] able: HMW Notified echocardiography radiology technologist Interpretation (test Abnormal code = 89457-2) [facility] [id number] 22:05:00 Test Item Value Reference Range Interpretation Comments POC glucose (test code = 108 mg/dL 65-99 H Ope rator Name: 67884-6) Camila Villatoro ce ID: [id number] able: HMW Notified echocardiography radiology technologist Interpretation (test Abnormal code = 44018-9) [facility] [id number] 22:05:00 Test Item Value Reference Range Interpretation Comments POC glucose (test code = 108 mg/dL 65-99 H Ope rator Name: 10654-5) Camila Villatoro ce ID: [id number] able: HMW Notified echocardiography radiology technologist Interpretation (test Abnormal code = 81746-8) [facility] RNA [Presence] in Respiratory specimen by SHIELA with probe [id number] 21:08:13 Test Item Value Reference Range Interpretation Comments SARS-CoV-2 (COVID-19) RNA Not detected [Presence] in Respiratory specimen by SHIELA with probe detection (test code = 59888-1) Whether patient is employed in a Unknown healthcare setting (test code = 31925-3) Whether the patient has symptoms Unknown related to condition of interest (test code = 48164-1) Whether the patient was Unknown hospitalized for condition of interest (test code = 96374-3) Whether the patient was admitted Unknown to intensive care unit (ICU) for condition of interest (test code = 55050-3) Whether patient resides in a Unknown congregate care setting (test code = 51242-4) status (test code = Unknown 57230-2) Date and time of symptom onset Unknown (test code = 57221-3) [facility] 12 [id number] 21:07:50 Test Item Value Reference Range Interpretation Comments Ventricular rate (test 71 code = 253) Atrial rate (test code 71 = 255) UT interval (test code 254 = 266) QRSD [...] of 17-OCT-2019 22:42,-No significant change was found- [facility] 12 [id number] 21:07:50 Test Item Value Reference Range Interpretation Comments Ventricular rate (test 71 code = 253) Atrial rate (test code 71 = 255) UT interval (test code 254 = 266) QRSD [...] of 17-OCT-2019 22:42,-No significant change was found- [facility] 12 [id number] 21:07:50 Test Item Value Reference Range Interpretation Comments Ventricular rate (test 71 code = 253) Atrial rate (test code 71 = 255) UT interval (test code 254 = 266) QRSD [...] of 17-OCT-2019 22:42,-No significant change was found- [facility] [id number] 23:00:00 Test Item Value Reference Range Interpretation Comments BNP (test code = BNP) 86 [facility] [id number] 23:00:00 Test Item Value Reference Range Interpretation Comments Troponin-I (test code no gt See_Comment [Auto mated message] The = Troponin-I) system which g enerated this result transmit gustavo reference range : <=0.40. The reference r rob was not used to interpr et this result as layton l/abnormal. [facility] [id number] 23:00:00 Test Item Value Reference Range Interpretation Comments CK MB (test code = CK MB) no gt 0.5-3.6 [facility] [id number] 23:00:00 Test Item Value Reference Range Interpretation Comments Total CK (test code = Total CK) 46 12-191 [facility] [id number] 23:00:00 Test Item Value Reference Range Interpretation Comments CK MB Index (test no gt See_Comment [Automate d message] The code = CK MB Index) system w [facility] generated this result transmit gustavo reference range : <=2.5. The reference range was not used to interpr et this result as layton l/abnormal. [facility] CenterNitroSecurityS[facility] [id number] 23:00:00 Test Item Value Reference Range Interpretation Comments Phosphorus (test code = Phosphorus) 2.7 2.5-4.5 [facility] CenterNitroSecurityS[facility] [id number] 23:00:00 Test Item Value Reference Range Interpretation Comments Magnesium Lvl (test code = Magnesium 1.8 1.8-2.4 Lvl) [facility]2015-06-08 23:00:00 Test Item Value Reference Range Interpretation Comments BUN (test code = BUN) 13 7-22 [facility] CenterFanli website [id number] 23:00:00 Test Item Value Reference Range Interpretation Comments ALT (test code = ALT) 26 See_Comment [Auto mated message] The system which ge nerated this result transmit gustavo reference range : <=65. The reference range was not used to interpr et this result as layton l/abnormal. [facility] Center[facility] website [id number] 23:00:00 Test Item Value Reference Range Interpretation Comments CO2 (test code = CO2) 27 24-32 [facility] CenterNitroSecurityATRIUM [id number] 23:00:00 Test Item Value Reference Range Interpretation Comments Glucose Lvl (test code = Glucose Lvl) 270 70-99 [facility] [id number] 23:00:00 Test Item Value Reference Range Interpretation Comments AGAP (test code = AGAP) 11.5 10.0-20.0 [facility] [id number] 23:00:00 Test Item Value Reference Range Interpretation Comments B/C Ratio (test code = B/C Ratio) 19 6-25 [facility]2015-06-08 23:00:00 Test Item Value Reference Range Interpretation Comments AST (test code = AST) 17 See_Comment [Auto mated message] The system which ge nerated this result transmit gustavo reference range : <=37. The reference range was not used to interpr et this result as layton l/abnormal. [facility]2015-06-08 23:00:00 Test Item Value Reference Range Interpretation Comments eGFR (test code = eGFR) 85 [facility]2015-06-08 23:00:00 Test Item Value Reference Range Interpretation Comments Sodium Lvl (test code = Sodium Lvl) 134 135-145 [facility]2015-06-08 23:00:00 Test Item Value Reference Range Interpretation Comments Creatinine Lvl (test code = Creatinine 0.7 0.5-1.4 Lvl) [facility]2015-06-08 23:00:00 Test Item Value Reference Range Interpretation Comments Potassium Lvl (test code = Potassium 4.5 3.5-5.1 Lvl) [facility]2015-06-08 23:00:00 Test Item Value Reference Range Interpretation Comments Chloride Lvl (test code = Chloride Lvl) 100 95-109 [facility]2015-06-08 23:00:00 Test Item Value Reference Range Interpretation Comments Calcium Lvl (test code = Calcium Lvl) 8.8 8.5-10.5 [facility]2015-06-08 23:00:00 Test Item Value Reference Range Interpretation Comments Albumin Lvl (test code = Albumin Lvl) 3.2 3.5-5.0 [facility]2015-06-08 23:00:00 Test Item Value Reference Range Interpretation Comments A/G Ratio (test code = A/G Ratio) 0.9 0.7-1.6 [facility]2015-06-08 23:00:00 Test Item Value Reference Range Interpretation Comments Bili Total (test code = Bili Total) 0.9 0.2-1.3 [facility]2015-06-08 23:00:00 Test Item Value Reference Range Interpretation Comments Alk Phos (test code = Alk Phos) 96 39-136 [facility]2015-06-08 23:00:00 Test Item Value Reference Range Interpretation Comments Globulin (test code = Globulin) 3.6 2.0-4.0 [facility]2015-06-08 23:00:00 Test Item Value Reference Range Interpretation Comments Total Protein (test code = Total 6.8 6.4-8.4 Protein) [facility]BgngxmyRLGPEPBLVE1835-65-48 23:00:00 Test Item Value Reference Range Interpretation Comments RDW (test code = RDW) 13.5 11.5-14.5 [facility] HospitalNbhvqiePPCDLRTWGO2335-54-43 23:00:00 Test Item Value Reference Range Interpretation Comments Platelet (test code = Platelet) 197 133-450 [facility] HospitalXhnwdldOVOYYCLSVE6379-05-65 23:00:00 Test Item Value Reference Range Interpretation Comments MCH (test code = MCH) 30.0 pg 27.0-31.0 [facility] HospitalAeqsvbpUSOMBOLEOT1222-25-63 23:00:00 Test Item Value Reference Range Interpretation Comments MCHC (test code = MCHC) 33.7 32.0-36.0 [facility] HospitalRjldljwMRBEUGCUXO9758-95-27 23:00:00 Test Item Value Reference Range Interpretation Comments Hct (test code = Hct) 41.2 36.0-48.0 [facility] HospitalTvnumbaFEDTINUZGT8943-21-63 23:00:00 Test Item Value Reference Range Interpretation Comments MCV (test code = MCV) 89.2 80.0-98.0 [facility] HospitalJyljjjrKFBXXGMMYF7042-72-68 23:00:00 Test Item Value Reference Range Interpretation Comments MPV (test code = MPV) 8.0 7.4-10.4 [facility] HospitalPnmbwbfVPAKUQOQGQ9203-24-77 23:00:00 Test Item Value Reference Range Interpretation Comments Hgb (test code = Hgb) 13.9 12.0-16.0 [facility] HospitalVofigriLYAIBKIWGF1727-47-55 23:00:00 Test Item Value Reference Range Interpretation Comments RBC (test code = RBC) 4.62 4.20-5.40 [facility] HospitalThmlvviNQJRAIOGSU5582-85-43 23:00:00 Test Item Value Reference Range Interpretation Comments WBC (test code = WBC) 7.0 3.7-10.4 [facility] HospitalYozgyxaKBMMCXWSIZ2430-92-85 23:00:00 Test Item Value Reference Range Interpretation Comments Segs-Bands # (test code = Segs-Bands #) 4.9 1.5-8.1 [facility] HospitalEgdyufqVMDRVTMHKS4729-27-47 23:00:00 Test Item Value Reference Range Interpretation Comments Eosinophils (test code = 2.2 See_Comment [A utomated message] The Eosinophils) system which ge nerated this result tra nsmitted reference range : <=4.0. The reference r rob was not used to int erpret this result as normal/abnormal . [facility] HospitalKdydkguTRITHWQSZM3737-53-79 23:00:00 Test Item Value Reference Range Interpretation Comments Basophils (test code = 0.5 See_Comment [Aut omated message] The Basophils) system which ge nerated this result tra nsmitted reference range : <=1.0. The reference r rob was not used to int erpret this result as normal/abnormal . [facility] HospitalGgdqeklSLISUTIYKR0245-13-85 23:00:00 Test Item Value Reference Range Interpretation Comments Eosinophils # (test code 0.2 See_Comment [A utomated message] The = Eosinophils #) system whic h generated this result tra nsmitted reference range : <=0.5. The reference r rob was not used to int erpret this result as normal/abnormal . [facility] HospitalTeczobuPHCQCXATUD9304-64-19 23:00:00 Test Item Value Reference Range Interpretation Comments Basophils # (test code 0.0 See_Comment [Aut omated message] The = Basophils #) system which generated this result tra nsmitted reference range : <=0.2. The reference r rob was not used to int erpret this result as normal/abnormal . [facility] HospitalNsdnycnRWFMEWLEAS7197-81-10 23:00:00 Test Item Value Reference Range Interpretation Comments Monocytes # (test code 0.6 See_Comment [Aut omated message] The = Monocytes #) system which generated this result tra nsmitted reference range : <=0.8. The reference r rob was not used to int erpret this result as normal/abnormal . [facility] HospitalVnxwrxqESKBPZIFJL7413-78-23 23:00:00 Test Item Value Reference Range Interpretation Comments Lymphocytes (test code = Lymphocytes) 19.2 20.0-40.0 [facility] HospitalKkcucmkHDYXGSWBKS3319-88-68 23:00:00 Test Item Value Reference Range Interpretation Comments Monocytes (test code = Monocytes) 8.0 2.0-12.0 [facility] HospitalIwbcrjbNJVHRRXUHK2984-16-55 23:00:00 Test Item Value Reference Range Interpretation Comments Lymphocytes # (test code = Lymphocytes 1.3 1.0-5.5 #) [facility] HospitalEzsoowgMWFFBXJUXQ4981-49-65 23:00:00 Test Item Value Reference Range Interpretation Comments Segs (test code = Segs) 70.1 45.0-75.0 [facility] [id number] 23:00:00 Test Item Value Reference Range Interpretation Comments BNP (test code = BNP) 86 [facility] [id number] 23:00:00 Test Item Value Reference Range Interpretation Comments Troponin-I (test code no gt See_Comment [Auto mated message] The = Troponin-I) system which g enerated this result transmit gustavo reference range : <=0.40. The reference r rob was not used to interpr et this result as layton l/abnormal. [facility]SA[facility] [id number] 23:00:00 Test Item Value Reference Range Interpretation Comments CK MB (test code = CK MB) no gt 0.5-3.6 [facility] [id number] 23:00:00 Test Item Value Reference Range Interpretation Comments Total CK (test code = Total CK) 46 12-191 [facility] [place]LuckyPenn[place] [id number] 23:00:00 Test Item Value Reference Range Interpretation Comments CK MB Index (test no gt See_Comment [Automate d message] The code = CK MB Index) system w [facility] generated this result transmit gustavo reference range : <=2.5. The reference range was not used to interpr et this result as layton l/abnormal. [facility] [employer] [id number] 23:00:00 Test Item Value Reference Range Interpretation Comments Phosphorus (test code = Phosphorus) 2.7 2.5-4.5 [facility] Center[facility] [id number] 23:00:00 Test Item Value Reference Range Interpretation Comments Magnesium Lvl (test code = Magnesium 1.8 1.8-2.4 Lvl) [facility] CenterFan[facility] [id number] 23:00:00 Test Item Value Reference Range Interpretation Comments BUN (test code = BUN) 13 7-22 [facility] CenterFan[facility] [id number] 23:00:00 Test Item Value Reference Range Interpretation Comments ALT (test code = ALT) 26 See_Comment [Auto mated message] The system which ge nerated this result transmit gustavo reference range : <=65. The reference range was not used to interpr et this result as layton l/abnormal. [facility]2015-06-08 23:00:00 Test Item Value Reference Range Interpretation Comments CO2 (test code = CO2) 27 24-32 [facility]2015-06-08 23:00:00 Test Item Value Reference Range Interpretation Comments Glucose Lvl (test code = Glucose Lvl) 270 70-99 [facility]2015-06-08 23:00:00 Test Item Value Reference Range Interpretation Comments AGAP (test code = AGAP) 11.5 10.0-20.0 [facility]2015-06-08 23:00:00 Test Item Value Reference Range Interpretation Comments B/C Ratio (test code = B/C Ratio) 19 6-25 [facility]2015-06-08 23:00:00 Test Item Value Reference Range Interpretation Comments AST (test code = AST) 17 See_Comment [Auto mated message] The system which ge nerated this result transmit gustavo reference range : <=37. The reference range was not used to interpr et this result as layton l/abnormal. [facility]2015-06-08 23:00:00 Test Item Value Reference Range Interpretation Comments eGFR (test code = eGFR) 85 [facility]2015-06-08 23:00:00 Test Item Value Reference Range Interpretation Comments Sodium Lvl (test code = Sodium Lvl) 134 135-145 [facility]2015-06-08 23:00:00 Test Item Value Reference Range Interpretation Comments Creatinine Lvl (test code = Creatinine 0.7 0.5-1.4 Lvl) [facility]2015-06-08 23:00:00 Test Item Value Reference Range Interpretation Comments Potassium Lvl (test code = Potassium 4.5 3.5-5.1 Lvl) [facility]2015-06-08 23:00:00 Test Item Value Reference Range Interpretation Comments Chloride Lvl (test code = Chloride Lvl) 100 95-109 [facility]2015-06-08 23:00:00 Test Item Value Reference Range Interpretation Comments Calcium Lvl (test code = Calcium Lvl) 8.8 8.5-10.5 [facility]2015-06-08 23:00:00 Test Item Value Reference Range Interpretation Comments Albumin Lvl (test code = Albumin Lvl) 3.2 3.5-5.0 [facility]2015-06-08 23:00:00 Test Item Value Reference Range Interpretation Comments A/G Ratio (test code = A/G Ratio) 0.9 0.7-1.6 [facility]2015-06-08 23:00:00 Test Item Value Reference Range Interpretation Comments Bili Total (test code = Bili Total) 0.9 0.2-1.3 [facility]2015-06-08 23:00:00 Test Item Value Reference Range Interpretation Comments Alk Phos (test code = Alk Phos) 96 39-136 [facility]2015-06-08 23:00:00 Test Item Value Reference Range Interpretation Comments Globulin (test code = Globulin) 3.6 2.0-4.0 [facility]2015-06-08 23:00:00 Test Item Value Reference Range Interpretation Comments Total Protein (test code = Total 6.8 6.4-8.4 Protein) [facility] HospitalWsdlvafROOMALHZFO3576-14-19 23:00:00 Test Item Value Reference Range Interpretation Comments RDW (test code = RDW) 13.5 11.5-14.5 [facility] HospitalWdudvvbAFUOUZDDCF6460-15-28 23:00:00 Test Item Value Reference Range Interpretation Comments Platelet (test code = Platelet) 197 133-450 [facility] HospitalTyhlabyRCRWMCVMPB5955-46-68 23:00:00 Test Item Value Reference Range Interpretation Comments MCH (test code = MCH) 30.0 pg 27.0-31.0 [facility] HospitalHvlemmfVTEZVGXHAZ0033-16-88 23:00:00 Test Item Value Reference Range Interpretation Comments MCHC (test code = MCHC) 33.7 32.0-36.0 [facility] HospitalJyoqiqbLUKWKQOESX9129-51-58 23:00:00 Test Item Value Reference Range Interpretation Comments Hct (test code = Hct) 41.2 36.0-48.0 [facility] HospitalQnhwumtRSNANHYXGY2633-90-43 23:00:00 Test Item Value Reference Range Interpretation Comments MCV (test code = MCV) 89.2 80.0-98.0 [facility] HospitalFdngqicPLWKYDKQIJ2948-01-95 23:00:00 Test Item Value Reference Range Interpretation Comments MPV (test code = MPV) 8.0 7.4-10.4 [facility] HospitalRapnlxiFUCKDQNPLO4779-19-18 23:00:00 Test Item Value Reference Range Interpretation Comments Hgb (test code = Hgb) 13.9 12.0-16.0 [facility] HospitalQ[id number] 23:00:00 Test Item Value Reference Range Interpretation Comments RBC (test code = RBC) 4.62 4.20-5.40 [facility] HospitalKwkitnaEEXIBXRPVJ7692-82-21 23:00:00 Test Item Value Reference Range Interpretation Comments WBC (test code = WBC) 7.0 3.7-10.4 [facility] HospitalUaunmmvACQXLLUJEM8609-72-75 23:00:00 Test Item Value Reference Range Interpretation Comments Segs-Bands # (test code = Segs-Bands #) 4.9 1.5-8.1 [place] [id number] 23:00:00 Test Item Value Reference Range Interpretation Comments Eosinophils (test code = 2.2 See_Comment [A utomated message] The Eosinophils) system which ge nerated this result tra nsmitted reference range : <=4.0. The reference r rob was not used to int erpret this result as normal/abnormal . [facility] HospitalZqrcghvTMVVRATTFH8379-63-14 23:00:00 Test Item Value Reference Range Interpretation Comments Basophils (test code = 0.5 See_Comment [Aut omated message] The Basophils) system which ge nerated this result tra nsmitted reference range : <=1.0. The reference r rob was not used to int erpret this result as normal/abnormal . [facility] HospitalZubnuewUUNCMBZRHT6638-18-73 23:00:00 Test Item Value Reference Range Interpretation Comments Eosinophils # (test code 0.2 See_Comment [A utomated message] The = Eosinophils #) system whic h generated this result tra nsmitted reference range : <=0.5. The reference r rob was not used to int erpret this result as normal/abnormal . [facility] HospitalLhgssyxUAELBNBKMZ4176-01-26 23:00:00 Test Item Value Reference Range Interpretation Comments Basophils # (test code 0.0 See_Comment [Aut omated message] The = Basophils #) system which generated this result tra nsmitted reference range : <=0.2. The reference r rob was not used to int erpret this result as normal/abnormal . [facility] [id number] 23:00:00 Test Item Value Reference Range Interpretation Comments Monocytes # (test code 0.6 See_Comment [Aut omated message] The = Monocytes #) system which generated this result tra nsmitted reference range : <=0.8. The reference r rob was not used to int erpret this result as normal/abnormal . [facility] VofetclAODFROJATM9463-94-09 23:00:00 Test Item Value Reference Range Interpretation Comments Lymphocytes (test code = Lymphocytes) 19.2 20.0-40.0 [facility] TaixtvgRELMVQUAFM6175-56-15 23:00:00 Test Item Value Reference Range Interpretation Comments Monocytes (test code = Monocytes) 8.0 2.0-12.0 [facility] EjlepuiCLGYYLLVOI6077-24-72 23:00:00 Test Item Value Reference Range Interpretation Comments Lymphocytes # (test code = Lymphocytes 1.3 1.0-5.5 #) [facility] CenterIjcrudkTHRKIEHZYC1636-35-16 23:00:00 Test Item Value Reference Range Interpretation Comments Segs (test code = Segs) 70.1 45.0-75.0 [facility] [employer] [id number] 23:00:00 Test Item Value Reference Range Interpretation Comments BNP (test code = BNP) 86 [facility] CenterNitroSecurityCARHomeZada [id number] 23:00:00 Test Item Value Reference Range Interpretation Comments Troponin-I (test code no gt See_Comment [Auto mated message] The = Troponin-I) system which g enerated this result transmit gustavo reference range : <=0.40. The reference r rob was not used to interpr et this result as layton l/abnormal. [facility] [employer]rapeuticsCARDIAC [id number] 23:00:00 Test Item Value Reference Range Interpretation Comments CK MB (test code = CK MB) no gt 0.5-3.6 [facility] [employer]CARDIAC [id number] 23:00:00 Test Item Value Reference Range Interpretation Comments Total CK (test code = Total CK) 46 12-191 [facility] [employer] TherapeuticsCARDI[employer] [id number] 23:00:00 Test Item Value Reference Range Interpretation Comments CK MB Index (test no gt See_Comment [Automate d message] The code = CK MB Index) system w [facility] generated this result transmit gustavo reference range : <=2.5. The reference range was not used to interpr et this result as layton l/abnormal. [facility]2015-06-08 23:00:00 Test Item Value Reference Range Interpretation Comments Phosphorus (test code = Phosphorus) 2.7 2.5-4.5 [facility]2015-06-08 23:00:00 Test Item Value Reference Range Interpretation Comments Magnesium Lvl (test code = Magnesium 1.8 1.8-2.4 Lvl) [facility]2015-06-08 23:00:00 Test Item Value Reference Range Interpretation Comments BUN (test code = BUN) 13 7-22 [facility]2015-06-08 23:00:00 Test Item Value Reference Range Interpretation Comments ALT (test code = ALT) 26 See_Comment [Auto mated message] The system which ge nerated this result transmit gustavo reference range : <=65. The reference range was not used to interpr et this result as layton l/abnormal. [facility]2015-06-08 23:00:00 Test Item Value Reference Range Interpretation Comments CO2 (test code = CO2) 27 24-32 [facility]2015-06-08 23:00:00 Test Item Value Reference Range Interpretation Comments Glucose Lvl (test code = Glucose Lvl) 270 70-99 [facility]2015-06-08 23:00:00 Test Item Value Reference Range Interpretation Comments AGAP (test code = AGAP) 11.5 10.0-20.0 [facility]2015-06-08 23:00:00 Test Item Value Reference Range Interpretation Comments B/C Ratio (test code = B/C Ratio) 19 6-25 [facility]2015-06-08 23:00:00 Test Item Value Reference Range Interpretation Comments AST (test code = AST) 17 See_Comment [Auto mated message] The system which ge nerated this result transmit gustavo reference range : <=37. The reference range was not used to interpr et this result as layton l/abnormal. [facility]2015-06-08 23:00:00 Test Item Value Reference Range Interpretation Comments eGFR (test code = eGFR) 85 [place] [id number] 23:00:00 Test Item Value Reference Range Interpretation Comments Sodium Lvl (test code = Sodium Lvl) 134 135-145 [facility]2015-06-08 23:00:00 Test Item Value Reference Range Interpretation Comments Creatinine Lvl (test code = Creatinine 0.7 0.5-1.4 Lvl) [facility]2015-06-08 23:00:00 Test Item Value Reference Range Interpretation Comments Potassium Lvl (test code = Potassium 4.5 3.5-5.1 Lvl) [facility]2015-06-08 23:00:00 Test Item Value Reference Range Interpretation Comments Chloride Lvl (test code = Chloride Lvl) 100 95-109 [facility]2015-06-08 23:00:00 Test Item Value Reference Range Interpretation Comments Calcium Lvl (test code = Calcium Lvl) 8.8 8.5-10.5 [facility]2015-06-08 23:00:00 Test Item Value Reference Range Interpretation Comments Albumin Lvl (test code = Albumin Lvl) 3.2 3.5-5.0 [facility]2015-06-08 23:00:00 Test Item Value Reference Range Interpretation Comments A/G Ratio (test code = A/G Ratio) 0.9 0.7-1.6 [facility]2015-06-08 23:00:00 Test Item Value Reference Range Interpretation Comments Bili Total (test code = Bili Total) 0.9 0.2-1.3 [facility]2015-06-08 23:00:00 Test Item Value Reference Range Interpretation Comments Alk Phos (test code = Alk Phos) 96 39-136 [facility]2015-06-08 23:00:00 Test Item Value Reference Range Interpretation Comments Globulin (test code = Globulin) 3.6 2.0-4.0 [facility]2015-06-08 23:00:00 Test Item Value Reference Range Interpretation Comments Total Protein (test code = Total 6.8 6.4-8.4 Protein) [facility] HospitalVogmixgEPMWMLVVSI9212-55-87 23:00:00 Test Item Value Reference Range Interpretation Comments RDW (test code = RDW) 13.5 11.5-14.5 [facility] HospitalEqnrfowMQBATWHCJT8664-19-36 23:00:00 Test Item Value Reference Range Interpretation Comments Platelet (test code = Platelet) 197 133-450 [facility] HospitalYmxbxzoOZXMNUDHSG2718-18-49 23:00:00 Test Item Value Reference Range Interpretation Comments MCH (test code = MCH) 30.0 pg 27.0-31.0 [facility] HospitalYkrqdouNTNODGUVOO9273-42-25 23:00:00 Test Item Value Reference Range Interpretation Comments MCHC (test code = MCHC) 33.7 32.0-36.0 [facility] HospitalCljnzleENJWDLQGTI9479-55-46 23:00:00 Test Item Value Reference Range Interpretation Comments Hct (test code = Hct) 41.2 36.0-48.0 [facility] HospitalAbuffecLKEAVSOEDW3787-37-72 23:00:00 Test Item Value Reference Range Interpretation Comments MCV (test code = MCV) 89.2 80.0-98.0 [facility] HospitalSvbgqavBCAATBDMKP8411-62-47 23:00:00 Test Item Value Reference Range Interpretation Comments MPV (test code = MPV) 8.0 7.4-10.4 [facility] HospitalRlkbrsyCEGXCNNKUF1000-06-92 23:00:00 Test Item Value Reference Range Interpretation Comments Hgb (test code = Hgb) 13.9 12.0-16.0 [facility] HospitalXjiwnkcZKUTTPCFJY2523-62-50 23:00:00 Test Item Value Reference Range Interpretation Comments RBC (test code = RBC) 4.62 4.20-5.40 [facility] HospitalKslqnceMRUSJXDILQ7931-61-14 23:00:00 Test Item Value Reference Range Interpretation Comments WBC (test code = WBC) 7.0 3.7-10.4 [facility] HospitalHuupmhpQKXFZGQFWV0422-47-28 23:00:00 Test Item Value Reference Range Interpretation Comments Segs-Bands # (test code = Segs-Bands #) 4.9 1.5-8.1 [facility] HospitalEohivrzBIUETCNGRM3392-54-94 23:00:00 Test Item Value Reference Range Interpretation Comments Eosinophils (test code = 2.2 See_Comment [A utomated message] The Eosinophils) system which ge nerated this result tra nsmitted reference range : <=4.0. The reference r rob was not used to int erpret this result as normal/abnormal . [facility] HospitalLhseqnbMJRJCNDWBE9180-58-79 23:00:00 Test Item Value Reference Range Interpretation Comments Basophils (test code = 0.5 See_Comment [Aut omated message] The Basophils) system which ge nerated this result tra nsmitted reference range : <=1.0. The reference r rob was not used to int erpret this result as normal/abnormal . [facility] HospitalWejduomTCBYBAYAPQ7899-71-05 23:00:00 Test Item Value Reference Range Interpretation Comments Eosinophils # (test code 0.2 See_Comment [A utomated message] The = Eosinophils #) system whic h generated this result tra nsmitted reference range : <=0.5. The reference r rob was not used to int erpret this result as normal/abnormal . [facility] HospitalFxxgmtaFFKQYZPOTW5268-84-37 23:00:00 Test Item Value Reference Range Interpretation Comments Basophils # (test code 0.0 See_Comment [Aut omated message] The = Basophils #) system which generated this result tra nsmitted reference range : <=0.2. The reference r rob was not used to int erpret this result as normal/abnormal . [facility] HospitalVntokmiBQYRNGZBAS8557-15-40 23:00:00 Test Item Value Reference Range Interpretation Comments Monocytes # (test code 0.6 See_Comment [Aut omated message] The = Monocytes #) system which generated this result tra nsmitted reference range : <=0.8. The reference r rob was not used to int erpret this result as normal/abnormal . [facility] HospitalBwoagcmXKAUNKTVBD9943-91-75 23:00:00 Test Item Value Reference Range Interpretation Comments Lymphocytes (test code = Lymphocytes) 19.2 20.0-40.0 [facility] HospitalTqogzgeZPSOTYYWWC0874-67-54 23:00:00 Test Item Value Reference Range Interpretation Comments Monocytes (test code = Monocytes) 8.0 2.0-12.0 [facility] HospitalBefolmvJSDSUYKYNC8406-86-80 23:00:00 Test Item Value Reference Range Interpretation Comments Lymphocytes # (test code = Lymphocytes 1.3 1.0-5.5 #) [facility] [id number] 23:00:00 Test Item Value Reference Range Interpretation Comments Segs (test code = Segs) 70.1 45.0-75.0 [facility]2015-06-08 23:00:00 Test Item Value Reference Range Interpretation Comments BNP (test code = BNP) 86 [facility] [employer]ARS[employer]AC [id number] 23:00:00 Test Item Value Reference Range Interpretation Comments Troponin-I (test code no gt See_Comment [Auto mated message] The = Troponin-I) system which g enerated this result transmit gustavo reference range : <=0.40. The reference r rob was not used to interpr et this result as layton l/abnormal. [facility] ISORG [id number] 23:00:00 Test Item Value Reference Range Interpretation Comments CK MB (test code = CK MB) no gt 0.5-3.6 [facility] [employer] [id number] 23:00:00 Test Item Value Reference Range Interpretation Comments Total CK (test code = Total CK) 46 12-191 [facility] Desk2015-06-08 23:00:00 Test Item Value Reference Range Interpretation Comments CK MB Index (test no gt See_Comment [Automate d message] The code = CK MB Index) system w [facility] generated this result transmit gustavo reference range : <=2.5. The reference range was not used to interpr et this result as layton l/abnormal. [employer]2015-06-08 23:00:00 Test Item Value Reference Range Interpretation Comments Phosphorus (test code = Phosphorus) 2.7 2.5-4.5 [facility] [employer] [id number] 23:00:00 Test Item Value Reference Range Interpretation Comments Magnesium Lvl (test code = Magnesium 1.8 1.8-2.4 Lvl) [facility] [employer] [id number] 23:00:00 Test Item Value Reference Range Interpretation Comments BUN (test code = BUN) 13 7-22 [facility] [employer] [id number] 23:00:00 Test Item Value Reference Range Interpretation Comments ALT (test code = ALT) 26 See_Comment [Auto mated message] The system which ge nerated this result transmit gustavo reference range : <=65. The reference range was not used to interpr et this result as layton l/abnormal. [employer] [id number] 23:00:00 Test Item Value Reference Range Interpretation Comments CO2 (test code = CO2) 27 24-32 [employer]2015-06-08 23:00:00 Test Item Value Reference Range Interpretation Comments Glucose Lvl (test code = Glucose Lvl) 270 70-99 [facility]2015-06-08 23:00:00 Test Item Value Reference Range Interpretation Comments AGAP (test code = AGAP) 11.5 10.0-20.0 [facility]2015-06-08 23:00:00 Test Item Value Reference Range Interpretation Comments B/C Ratio (test code = B/C Ratio) 19 6-25 [facility]2015-06-08 23:00:00 Test Item Value Reference Range Interpretation Comments AST (test code = AST) 17 See_Comment [Auto mated message] The system which ge nerated this result transmit gustavo reference range : <=37. The reference range was not used to interpr et this result as layton l/abnormal. [facility]2015-06-08 23:00:00 Test Item Value Reference Range Interpretation Comments eGFR (test code = eGFR) 85 [facility]2015-06-08 23:00:00 Test Item Value Reference Range Interpretation Comments Sodium Lvl (test code = Sodium Lvl) 134 135-145 [facility]2015-06-08 23:00:00 Test Item Value Reference Range Interpretation Comments Creatinine Lvl (test code = Creatinine 0.7 0.5-1.4 Lvl) [facility]2015-06-08 23:00:00 Test Item Value Reference Range Interpretation Comments Potassium Lvl (test code = Potassium 4.5 3.5-5.1 Lvl) [facility]2015-06-08 23:00:00 Test Item Value Reference Range Interpretation Comments Chloride Lvl (test code = Chloride Lvl) 100 95-109 [facility]2015-06-08 23:00:00 Test Item Value Reference Range Interpretation Comments Calcium Lvl (test code = Calcium Lvl) 8.8 8.5-10.5 [facility]2015-06-08 23:00:00 Test Item Value Reference Range Interpretation Comments Albumin Lvl (test code = Albumin Lvl) 3.2 3.5-5.0 [facility]2015-06-08 23:00:00 Test Item Value Reference Range Interpretation Comments A/G Ratio (test code = A/G Ratio) 0.9 0.7-1.6 [facility]2015-06-08 23:00:00 Test Item Value Reference Range Interpretation Comments Bili Total (test code = Bili Total) 0.9 0.2-1.3 [facility]2015-06-08 23:00:00 Test Item Value Reference Range Interpretation Comments Alk Phos (test code = Alk Phos) 96 39-136 [facility]2015-06-08 23:00:00 Test Item Value Reference Range Interpretation Comments Globulin (test code = Globulin) 3.6 2.0-4.0 [facility]2015-06-08 23:00:00 Test Item Value Reference Range Interpretation Comments Total Protein (test code = Total 6.8 6.4-8.4 Protein) [id number] 23:00:00 Test Item Value Reference Range Interpretation Comments RDW (test code = RDW) 13.5 11.5-14.5 [facility] Hos[id number] 23:00:00 Test Item Value Reference Range Interpretation Comments Platelet (test code = Platelet) 197 133-450 [facility] HospitalJtsokfpZHCMGQUZGU9566-14-01 23:00:00 Test Item Value Reference Range Interpretation Comments MCH (test code = MCH) 30.0 pg 27.0-31.0 [facility] Hospit[id number] 23:00:00 Test Item Value Reference Range Interpretation Comments MCHC (test code = MCHC) 33.7 32.0-36.0 [facility] HospitalRjnbohyYGNIQJFIVF2532-16-40 23:00:00 Test Item Value Reference Range Interpretation Comments Hct (test code = Hct) 41.2 36.0-48.0 [facility] HospitalWfxxyumKWMGRIHURU5067-12-59 23:00:00 Test Item Value Reference Range Interpretation Comments MCV (test code = MCV) 89.2 80.0-98.0 [facility] H[id number] 23:00:00 Test Item Value Reference Range Interpretation Comments MPV (test code = MPV) 8.0 7.4-10.4 [facility] HospitalZrlhdvuNFBRZAJYCK4405-62-07 23:00:00 Test Item Value Reference Range Interpretation Comments Hgb (test code = Hgb) 13.9 12.0-16.0 [facility] HospitalDmuocqmKUEKFYFBBQ5490-81-71 23:00:00 Test Item Value Reference Range Interpretation Comments RBC (test code = RBC) 4.62 4.20-5.40 [facility] HospitalPalqzryWPPNKOVGVL4839-94-34 23:00:00 Test Item Value Reference Range Interpretation Comments WBC (test code = WBC) 7.0 3.7-10.4 [facility] HospitalI[id number] 23:00:00 Test Item Value Reference Range Interpretation Comments Segs-Bands # (test code = Segs-Bands #) 4.9 1.5-8.1 [facility] H[id number] 23:00:00 Test Item Value Reference Range Interpretation Comments Eosinophils (test code = 2.2 See_Comment [A utomated message] The Eosinophils) system which ge nerated this result tra nsmitted reference range : <=4.0. The reference r rob was not used to int erpret this result as normal/abnormal . [facility] Hos[id number] 23:00:00 Test Item Value Reference Range Interpretation Comments Basophils (test code = 0.5 See_Comment [Aut omated message] The Basophils) system which ge nerated this result tra nsmitted reference range : <=1.0. The reference r rob was not used to int erpret this result as normal/abnormal . [facility] Hospit[id number] 23:00:00 Test Item Value Reference Range Interpretation Comments Eosinophils # (test code 0.2 See_Comment [A utomated message] The = Eosinophils #) system wh h generated this result tra nsmitted reference range : <=0.5. The reference r rob was not used to int erpret this result as normal/abnormal . [facility] Hos[id number] 23:00:00 Test Item Value Reference Range Interpretation Comments Basophils # (test code 0.0 See_Comment [Aut omated message] The = Basophils #) system which generated this result tra nsmitted reference range : <=0.2. The reference r rob was not used to int erpret this result as normal/abnormal . [facility] Hos[id number] 23:00:00 Test Item Value Reference Range Interpretation Comments Monocytes # (test code 0.6 See_Comment [Aut omated message] The = Monocytes #) system which generated this result tra nsmitted reference range : <=0.8. The reference r rob was not used to int erpret this result as normal/abnormal . [facility] [id number] 23:00:00 Test Item Value Reference Range Interpretation Comments Lymphocytes (test code = Lymphocytes) 19.2 20.0-40.0 [facility] Cent[id number] 23:00:00 Test Item Value Reference Range Interpretation Comments Monocytes (test code = Monocytes) 8.0 2.0-12.0 [facility] CenterZothfqyHPUKBHLQUN9594-04-56 23:00:00 Test Item Value Reference Range Interpretation Comments Lymphocytes # (test code = Lymphocytes 1.3 1.0-5.5 #) [facility] CenterJtmsfdgWKTKLIWUEK8037-14-49 23:00:00 Test Item Value Reference Range Interpretation Comments Segs (test code = Segs) 70.1 45.0-75.0 [facility] Desk2015-06-08 23:00:00 Test Item Value Reference Range Interpretation Comments BNP (test code = BNP) 86 [facility] 23:00:00 Test Item Value Reference Range Interpretation Comments Troponin-I (test code no gt See_Comment [Auto mated message] The = Troponin-I) system which g enerated this result transmit gustavo reference range : <=0.40. The reference r rob was not used to interpr et this result as layton l/abnormal. [facility] [employer] [id number] 23:00:00 Test Item Value Reference Range Interpretation Comments CK MB (test code = CK MB) no gt 0.5-3.6 [facility] [employer] [id number] 23:00:00 Test Item Value Reference Range Interpretation Comments Total CK (test code = Total CK) 46 12-191 [facility] Desk2015-06-08 23:00:00 Test Item Value Reference Range Interpretation Comments CK MB Index (test no gt See_Comment [Automate d message] The code = CK MB Index) system w [facility] generated this result transmit gustavo reference range : <=2.5. The reference range was not used to interpr et this result as layton l/abnormal. [employer] [id number] 23:00:00 Test Item Value Reference Range Interpretation Comments Phosphorus (test code = Phosphorus) 2.7 2.5-4.5 [facility]2015-06-08 23:00:00 Test Item Value Reference Range Interpretation Comments Magnesium Lvl (test code = Magnesium 1.8 1.8-2.4 Lvl) [facility]2015-06-08 23:00:00 Test Item Value Reference Range Interpretation Comments BUN (test code = BUN) 13 7-22 [facility]2015-06-08 23:00:00 Test Item Value Reference Range Interpretation Comments ALT (test code = ALT) 26 See_Comment [Auto mated message] The system which ge nerated this result transmit gustavo reference range : <=65. The reference range was not used to interpr et this result as layton l/abnormal. [facility]2015-06-08 23:00:00 Test Item Value Reference Range Interpretation Comments CO2 (test code = CO2) 27 24-32 [facility]2015-06-08 23:00:00 Test Item Value Reference Range Interpretation Comments Glucose Lvl (test code = Glucose Lvl) 270 70-99 [facility]2015-06-08 23:00:00 Test Item Value Reference Range Interpretation Comments AGAP (test code = AGAP) 11.5 10.0-20.0 [facility]2015-06-08 23:00:00 Test Item Value Reference Range Interpretation Comments B/C Ratio (test code = B/C Ratio) 19 6-25 [facility] [employer] [id number] 23:00:00 Test Item Value Reference Range Interpretation Comments AST (test code = AST) 17 See_Comment [Auto mated message] The system which ge nerated this result transmit gustavo reference range : <=37. The reference range was not used to interpr et this result as layton l/abnormal. [facility] [id number] 23:00:00 Test Item Value Reference Range Interpretation Comments eGFR (test code = eGFR) 85 [facility]2015-06-08 23:00:00 Test Item Value Reference Range Interpretation Comments Sodium Lvl (test code = Sodium Lvl) 134 135-145 [facility] [employer] [employer] [id number] 23:00:00 Test Item Value Reference Range Interpretation Comments Creatinine Lvl (test code = Creatinine 0.7 0.5-1.4 Lvl) [facility]2015-06-08 23:00:00 Test Item Value Reference Range Interpretation Comments Potassium Lvl (test code = Potassium 4.5 3.5-5.1 Lvl) [facility]2015-06-08 23:00:00 Test Item Value Reference Range Interpretation Comments Chloride Lvl (test code = Chloride Lvl) 100 95-109 [facility]2015-06-08 23:00:00 Test Item Value Reference Range Interpretation Comments Calcium Lvl (test code = Calcium Lvl) 8.8 8.5-10.5 [facility]2015-06-08 23:00:00 Test Item Value Reference Range Interpretation Comments Albumin Lvl (test code = Albumin Lvl) 3.2 3.5-5.0 [facility]2015-06-08 23:00:00 Test Item Value Reference Range Interpretation Comments A/G Ratio (test code = A/G Ratio) 0.9 0.7-1.6 [facility]2015-06-08 23:00:00 Test Item Value Reference Range Interpretation Comments Bili Total (test code = Bili Total) 0.9 0.2-1.3 [facility]2015-06-08 23:00:00 Test Item Value Reference Range Interpretation Comments Alk Phos (test code = Alk Phos) 96 39-136 [facility]2015-06-08 23:00:00 Test Item Value Reference Range Interpretation Comments Globulin (test code = Globulin) 3.6 2.0-4.0 [facility]2015-06-08 23:00:00 Test Item Value Reference Range Interpretation Comments Total Protein (test code = Total 6.8 6.4-8.4 Protein) [facility] HospitalVzxgbugGXXNKCYBYM3009-09-75 23:00:00 Test Item Value Reference Range Interpretation Comments RDW (test code = RDW) 13.5 11.5-14.5 [facility] HospitalAaiveglAIPIEQAFHE6935-28-51 23:00:00 Test Item Value Reference Range Interpretation Comments Platelet (test code = Platelet) 197 133-450 [facility] HospitalMeakvzuHHXBCOWFYO4479-71-01 23:00:00 Test Item Value Reference Range Interpretation Comments MCH (test code = MCH) 30.0 pg 27.0-31.0 [facility] HospitalJijubvyAFJPZJYGMY6470-76-28 23:00:00 Test Item Value Reference Range Interpretation Comments MCHC (test code = MCHC) 33.7 32.0-36.0 [facility] HospitalIgnmaibJCLCNGJFRV9107-52-20 23:00:00 Test Item Value Reference Range Interpretation Comments Hct (test code = Hct) 41.2 36.0-48.0 [facility] HospitalNodqybgEEIZANDWZS9688-21-18 23:00:00 Test Item Value Reference Range Interpretation Comments MCV (test code = MCV) 89.2 80.0-98.0 [facility] HospitalOnlqpyzSPPDTDVJAB1351-73-88 23:00:00 Test Item Value Reference Range Interpretation Comments MPV (test code = MPV) 8.0 7.4-10.4 [facility] HospitalXzvldujAYLQNHSORW5523-06-79 23:00:00 Test Item Value Reference Range Interpretation Comments Hgb (test code = Hgb) 13.9 12.0-16.0 [facility] Hospit[id number] 23:00:00 Test Item Value Reference Range Interpretation Comments RBC (test code = RBC) 4.62 4.20-5.40 [facility] HospitalVuxtvtbEGNGMMQVVI8121-89-28 23:00:00 Test Item Value Reference Range Interpretation Comments WBC (test code = WBC) 7.0 3.7-10.4 [facility] HospitalTfgzuxfNFLLQMPPQK9023-67-25 23:00:00 Test Item Value Reference Range Interpretation Comments Segs-Bands # (test code = Segs-Bands #) 4.9 1.5-8.1 [facility] H[id number] 23:00:00 Test Item Value Reference Range Interpretation Comments Eosinophils (test code = 2.2 See_Comment [A utomated message] The Eosinophils) system which ge nerated this result tra nsmitted reference range : <=4.0. The reference r rob was not used to int erpret this result as normal/abnormal . [facility] HospitalJbphvnuSJJKAZOVIL4010-53-56 23:00:00 Test Item Value Reference Range Interpretation Comments Basophils (test code = 0.5 See_Comment [Aut omated message] The Basophils) system which ge nerated this result tra nsmitted reference range : <=1.0. The reference r rob was not used to int erpret this result as normal/abnormal . [facility] HospitalHikaqwyFFJUQEMHAF8383-65-03 23:00:00 Test Item Value Reference Range Interpretation Comments Eosinophils # (test code 0.2 See_Comment [A utomated message] The = Eosinophils #) system whic h generated this result tra nsmitted reference range : <=0.5. The reference r rob was not used to int erpret this result as normal/abnormal . [facility] HospitalKqkknssSKHADVIOJB4955-35-44 23:00:00 Test Item Value Reference Range Interpretation Comments Basophils # (test code 0.0 See_Comment [Aut omated message] The = Basophils #) system which generated this result tra nsmitted reference range : <=0.2. The reference r rob was not used to int erpret this result as normal/abnormal . [facility] HospitalBzohjoeFIGBGJTMSF3597-56-50 23:00:00 Test Item Value Reference Range Interpretation Comments Monocytes # (test code 0.6 See_Comment [Aut omated message] The = Monocytes #) system which generated this result tra nsmitted reference range : <=0.8. The reference r rob was not used to int erpret this result as normal/abnormal . [facility] HospitalEluwlnqZVSRYUIFTP9547-34-31 23:00:00 Test Item Value Reference Range Interpretation Comments Lymphocytes (test code = Lymphocytes) 19.2 20.0-40.0 [facility] Hospit[id number] 23:00:00 Test Item Value Reference Range Interpretation Comments Monocytes (test code = Monocytes) 8.0 2.0-12.0 [facility] HospitalAbcmmjqJIUSKKTGTD8119-36-80 23:00:00 Test Item Value Reference Range Interpretation Comments Lymphocytes # (test code = Lymphocytes 1.3 1.0-5.5 #) [facility] HospitalThawsmhKUSEFTUUCJ7953-82-52 23:00:00 Test Item Value Reference Range Interpretation Comments Segs (test code = Segs) 70.1 45.0-75.0 [facility] DallasFree [facility] KidsSA[facility] [id number] 23:00:00 Test Item Value Reference Range Interpretation Comments BNP (test code = BNP) 86 [facility] Dallasbetter. [id number] 23:00:00 Test Item Value Reference Range Interpretation Comments Troponin-I (test code no gt See_Comment [Auto mated message] The = Troponin-I) system which g enerated this result transmit gustavo reference range : <=0.40. The reference r rob was not used to interpr et this result as layton l/abnormal. [facility] CenterMet[facility] Solutions [id number] 23:00:00 Test Item Value Reference Range Interpretation Comments CK MB (test code = CK MB) no gt 0.5-3.6 [facility] [id number] 23:00:00 Test Item Value Reference Range Interpretation Comments Total CK (test code = Total CK) 46 12-191 [facility] DallasLuckyPennie [id number] 23:00:00 Test Item Value Reference Range Interpretation Comments CK MB Index (test no gt See_Comment [Automate d message] The code = CK MB Index) [facility] generated this result transmit gustavo reference range : <=2.5. The reference range was not used to interpr et this result as layton l/abnormal. [facility] [employer] [id number] 23:00:00 Test Item Value Reference Range Interpretation Comments Phosphorus (test code = Phosphorus) 2.7 2.5-4.5 [facility] CenterFanli website [id number] 23:00:00 Test Item Value Reference Range Interpretation Comments Magnesium Lvl (test code = Magnesium 1.8 1.8-2.4 Lvl) [facility] CenterFanli website [id number] 23:00:00 Test Item Value Reference Range Interpretation Comments BUN (test code = BUN) 13 7-22 [facility] CenterFanli website [id number] 23:00:00 Test Item Value Reference Range Interpretation Comments ALT (test code = ALT) 26 See_Comment [Auto mated message] The system which ge nerated this result transmit gustavo reference range : <=65. The reference range was not used to interpr et this result as layton l/abnormal. [facility] [employer] [id number] 23:00:00 Test Item Value Reference Range Interpretation Comments CO2 (test code = CO2) 27 24-32 [facility] CenterFanli website [id number] 23:00:00 Test Item Value Reference Range Interpretation Comments Glucose Lvl (test code = Glucose Lvl) 270 70-99 [facility] CenterFan[facility] website [id number] 23:00:00 Test Item Value Reference Range Interpretation Comments AGAP (test code = AGAP) 11.5 10.0-20.0 [facility]2015-06-08 23:00:00 Test Item Value Reference Range Interpretation Comments B/C Ratio (test code = B/C Ratio) 19 6-25 [facility]2015-06-08 23:00:00 Test Item Value Reference Range Interpretation Comments AST (test code = AST) 17 See_Comment [Auto mated message] The system which ge nerated this result transmit gustavo reference range : <=37. The reference range was not used to interpr et this result as layton l/abnormal. [facility]2015-06-08 23:00:00 Test Item Value Reference Range Interpretation Comments eGFR (test code = eGFR) 85 [facility]2015-06-08 23:00:00 Test Item Value Reference Range Interpretation Comments Sodium Lvl (test code = Sodium Lvl) 134 135-145 [facility]2015-06-08 23:00:00 Test Item Value Reference Range Interpretation Comments Creatinine Lvl (test code = Creatinine 0.7 0.5-1.4 Lvl) [facility]2015-06-08 23:00:00 Test Item Value Reference Range Interpretation Comments Potassium Lvl (test code = Potassium 4.5 3.5-5.1 Lvl) [facility]2015-06-08 23:00:00 Test Item Value Reference Range Interpretation Comments Chloride Lvl (test code = Chloride Lvl) 100 95-109 [facility]2015-06-08 23:00:00 Test Item Value Reference Range Interpretation Comments Calcium Lvl (test code = Calcium Lvl) 8.8 8.5-10.5 [facility]2015-06-08 23:00:00 Test Item Value Reference Range Interpretation Comments Albumin Lvl (test code = Albumin Lvl) 3.2 3.5-5.0 [facility]2015-06-08 23:00:00 Test Item Value Reference Range Interpretation Comments A/G Ratio (test code = A/G Ratio) 0.9 0.7-1.6 [facility]2015-06-08 23:00:00 Test Item Value Reference Range Interpretation Comments Bili Total (test code = Bili Total) 0.9 0.2-1.3 [facility] [id number] 23:00:00 Test Item Value Reference Range Interpretation Comments Alk Phos (test code = Alk Phos) 96 39-136 [facility] [id number] 23:00:00 Test Item Value Reference Range Interpretation Comments Globulin (test code = Globulin) 3.6 2.0-4.0 [facility] [id number] 23:00:00 Test Item Value Reference Range Interpretation Comments Total Protein (test code = Total 6.8 6.4-8.4 Protein) [facility] HospitalQvkcvchQFGQWTFICP5034-93-05 23:00:00 Test Item Value Reference Range Interpretation Comments RDW (test code = RDW) 13.5 11.5-14.5 [facility] Ho[id number] 23:00:00 Test Item Value Reference Range Interpretation Comments Platelet (test code = Platelet) 197 133-450 [facility] HospitalTnywbtcXGMALQJDOO8200-25-34 23:00:00 Test Item Value Reference Range Interpretation Comments MCH (test code = MCH) 30.0 pg 27.0-31.0 [facility] HospitalMccmqifWVXSNVHPDC3460-12-19 23:00:00 Test Item Value Reference Range Interpretation Comments MCHC (test code = MCHC) 33.7 32.0-36.0 [facility] HospitalHrdmeqoQWYXIEFSLE4805-57-56 23:00:00 Test Item Value Reference Range Interpretation Comments Hct (test code = Hct) 41.2 36.0-48.0 [facility]YmqlvwqCROFQCOWKX8679-50-75 23:00:00 Test Item Value Reference Range Interpretation Comments MCV (test code = MCV) 89.2 80.0-98.0 [facility] HospitalSsnksscOFBJRDEKRM8258-12-03 23:00:00 Test Item Value Reference Range Interpretation Comments MPV (test code = MPV) 8.0 7.4-10.4 [facility] HospitalZtjlygcGASBKSRRQK3558-96-42 23:00:00 Test Item Value Reference Range Interpretation Comments Hgb (test code = Hgb) 13.9 12.0-16.0 [facility] HospitalItvxgjzPDBILXICBY5138-32-76 23:00:00 Test Item Value Reference Range Interpretation Comments RBC (test code = RBC) 4.62 4.20-5.40 [facility] HospitalWhtauakVMOEMEQEJF8053-27-57 23:00:00 Test Item Value Reference Range Interpretation Comments WBC (test code = WBC) 7.0 3.7-10.4 [facility] HospitalBlvtkirPTNPEJUXWQ1716-79-59 23:00:00 Test Item Value Reference Range Interpretation Comments Segs-Bands # (test code = Segs-Bands #) 4.9 1.5-8.1 [facility] HospitalBwkmqzrLCTVJPDPMK5119-72-81 23:00:00 Test Item Value Reference Range Interpretation Comments Eosinophils (test code = 2.2 See_Comment [A utomated message] The Eosinophils) system which ge nerated this result tra nsmitted reference range : <=4.0. The reference r rob was not used to int erpret this result as normal/abnormal . [facility] HospitalMksxendYLGASZDHZG0226-30-79 23:00:00 Test Item Value Reference Range Interpretation Comments Basophils (test code = 0.5 See_Comment [Aut omated message] The Basophils) system which ge nerated this result tra nsmitted reference range : <=1.0. The reference r rob was not used to int erpret this result as normal/abnormal . [facility] HospitalCcczdyhMQBKVXWCFQ2317-98-16 23:00:00 Test Item Value Reference Range Interpretation Comments Eosinophils # (test code 0.2 See_Comment [A utomated message] The = Eosinophils #) system wh h generated this result tra nsmitted reference range : <=0.5. The reference r rob was not used to int erpret this result as normal/abnormal . [facility] HospitalGoazobaHNLYWNJAGZ9412-84-18 23:00:00 Test Item Value Reference Range Interpretation Comments Basophils # (test code 0.0 See_Comment [Aut omated message] The = Basophils #) system which generated this result tra nsmitted reference range : <=0.2. The reference r rob was not used to int erpret this result as normal/abnormal . [facility] HospitalCsiyuupAFDWAWTKDL3717-50-54 23:00:00 Test Item Value Reference Range Interpretation Comments Monocytes # (test code 0.6 See_Comment [Aut omated message] The = Monocytes #) system which generated this result tra nsmitted reference range : <=0.8. The reference r rob was not used to int erpret this result as normal/abnormal . [facility] HospitalNfqxlltNYEVCSUKON4979-74-32 23:00:00 Test Item Value Reference Range Interpretation Comments Lymphocytes (test code = Lymphocytes) 19.2 20.0-40.0 [facility] XpjprevASWFATJFMG2381-49-44 23:00:00 Test Item Value Reference Range Interpretation Comments Monocytes (test code = Monocytes) 8.0 2.0-12.0 [facility] CenterZrsvosoGSXNWTUJPD8639-34-11 23:00:00 Test Item Value Reference Range Interpretation Comments Lymphocytes # (test code = Lymphocytes 1.3 1.0-5.5 #) [facility] XlbmttuYVFZFYPCAU2038-27-24 23:00:00 Test Item Value Reference Range Interpretation Comments Segs (test code = Segs) 70.1 45.0-75.0 [facility] ISORG [id number] 23:00:00 Test Item Value Reference Range Interpretation Comments BNP (test code = BNP) 86 [facility] [id number] 23:00:00 Test Item Value Reference Range Interpretation Comments Troponin-I (test code no gt See_Comment [Auto mated message] The = Troponin-I) system which g enerated this result transmit gustavo reference range : <=0.40. The reference r rob was not used to interpr et this result as layton l/abnormal. [facility] ISORG [id number] 23:00:00 Test Item Value Reference Range Interpretation Comments CK MB (test code = CK MB) no gt 0.5-3.6 [facility] [id number] 23:00:00 Test Item Value Reference Range Interpretation Comments Total CK (test code = Total CK) 46 12-191 [facility] ISORG [id number] 23:00:00 Test Item Value Reference Range Interpretation Comments CK MB Index (test no gt See_Comment [Automate d message] The code = CK MB Index) system w [facility] generated this result transmit gustavo reference range : <=2.5. The reference range was not used to interpr et this result as layton l/abnormal. [employer] [id number] 23:00:00 Test Item Value Reference Range Interpretation Comments Phosphorus (test code = Phosphorus) 2.7 2.5-4.5 [facility] [employer] [id number] 23:00:00 Test Item Value Reference Range Interpretation Comments Magnesium Lvl (test code = Magnesium 1.8 1.8-2.4 Lvl) [facility]2015-06-08 23:00:00 Test Item Value Reference Range Interpretation Comments BUN (test code = BUN) 13 7-22 [facility]2015-06-08 23:00:00 Test Item Value Reference Range Interpretation Comments ALT (test code = ALT) 26 See_Comment [Auto mated message] The system which ge nerated this result transmit gustavo reference range : <=65. The reference range was not used to interpr et this result as layton l/abnormal. [facility]2015-06-08 23:00:00 Test Item Value Reference Range Interpretation Comments CO2 (test code = CO2) 27 24-32 [facility]2015-06-08 23:00:00 Test Item Value Reference Range Interpretation Comments Glucose Lvl (test code = Glucose Lvl) 270 70-99 [facility]2015-06-08 23:00:00 Test Item Value Reference Range Interpretation Comments AGAP (test code = AGAP) 11.5 10.0-20.0 [facility]2015-06-08 23:00:00 Test Item Value Reference Range Interpretation Comments B/C Ratio (test code = B/C Ratio) 19 6-25 [facility]2015-06-08 23:00:00 Test Item Value Reference Range Interpretation Comments AST (test code = AST) 17 See_Comment [Auto mated message] The system which ge nerated this result transmit gustavo reference range : <=37. The reference range was not used to interpr et this result as layton l/abnormal. [facility]2015-06-08 23:00:00 Test Item Value Reference Range Interpretation Comments eGFR (test code = eGFR) 85 [facility]2015-06-08 23:00:00 Test Item Value Reference Range Interpretation Comments Sodium Lvl (test code = Sodium Lvl) 134 135-145 [facility]2015-06-08 23:00:00 Test Item Value Reference Range Interpretation Comments Creatinine Lvl (test code = Creatinine 0.7 0.5-1.4 Lvl) [facility]2015-06-08 23:00:00 Test Item Value Reference Range Interpretation Comments Potassium Lvl (test code = Potassium 4.5 3.5-5.1 Lvl) [facility]2015-06-08 23:00:00 Test Item Value Reference Range Interpretation Comments Chloride Lvl (test code = Chloride Lvl) 100 95-109 [facility]2015-06-08 23:00:00 Test Item Value Reference Range Interpretation Comments Calcium Lvl (test code = Calcium Lvl) 8.8 8.5-10.5 [facility]2015-06-08 23:00:00 Test Item Value Reference Range Interpretation Comments Albumin Lvl (test code = Albumin Lvl) 3.2 3.5-5.0 [facility]2015-06-08 23:00:00 Test Item Value Reference Range Interpretation Comments A/G Ratio (test code = A/G Ratio) 0.9 0.7-1.6 [facility]2015-06-08 23:00:00 Test Item Value Reference Range Interpretation Comments Bili Total (test code = Bili Total) 0.9 0.2-1.3 [facility]2015-06-08 23:00:00 Test Item Value Reference Range Interpretation Comments Alk Phos (test code = Alk Phos) 96 39-136 [facility]2015-06-08 23:00:00 Test Item Value Reference Range Interpretation Comments Globulin (test code = Globulin) 3.6 2.0-4.0 [facility]2015-06-08 23:00:00 Test Item Value Reference Range Interpretation Comments Total Protein (test code = Total 6.8 6.4-8.4 Protein) [facility] Hospit[id number] 23:00:00 Test Item Value Reference Range Interpretation Comments RDW (test code = RDW) 13.5 11.5-14.5 [facility] HospitalEujpfgaBDIIFXOFPR4100-61-47 23:00:00 Test Item Value Reference Range Interpretation Comments Platelet (test code = Platelet) 197 133-450 [facility] HospitalJzbygkmNQFPECGWFF8825-08-17 23:00:00 Test Item Value Reference Range Interpretation Comments MCH (test code = MCH) 30.0 pg 27.0-31.0 [facility] HospitalSrsesofMEXTFWYAKR6500-02-61 23:00:00 Test Item Value Reference Range Interpretation Comments MCHC (test code = MCHC) 33.7 32.0-36.0 [facility] HospitalEeptfviRDKIPPOVGY9865-58-47 23:00:00 Test Item Value Reference Range Interpretation Comments Hct (test code = Hct) 41.2 36.0-48.0 [facility] HospitalWcwzmqnXNSVDCIDSP3313-35-08 23:00:00 Test Item Value Reference Range Interpretation Comments MCV (test code = MCV) 89.2 80.0-98.0 [facility] HospitalBjeqdtwTSVHXIFSYD0327-82-91 23:00:00 Test Item Value Reference Range Interpretation Comments MPV (test code = MPV) 8.0 7.4-10.4 [facility] HospitalRxjpfqzLLZYJXRBVE4980-54-26 23:00:00 Test Item Value Reference Range Interpretation Comments Hgb (test code = Hgb) 13.9 12.0-16.0 [facility] HospitalBbqposnAAZWTXJQWD2053-96-21 23:00:00 Test Item Value Reference Range Interpretation Comments RBC (test code = RBC) 4.62 4.20-5.40 [facility] HospitalTfnwbppLDPPJXHHII6744-90-65 23:00:00 Test Item Value Reference Range Interpretation Comments WBC (test code = WBC) 7.0 3.7-10.4 [facility] HospitalRusligmTLJJZPPIGZ6473-07-16 23:00:00 Test Item Value Reference Range Interpretation Comments Segs-Bands # (test code = Segs-Bands #) 4.9 1.5-8.1 [facility] HospitalS[id number] 23:00:00 Test Item Value Reference Range Interpretation Comments Eosinophils (test code = 2.2 See_Comment [A utomated message] The Eosinophils) system which ge nerated this result tra nsmitted reference range : <=4.0. The reference r rob was not used to int erpret this result as normal/abnormal . [facility] HospitalDifohjzYCZDIPPGHU7639-11-70 23:00:00 Test Item Value Reference Range Interpretation Comments Basophils (test code = 0.5 See_Comment [Aut omated message] The Basophils) system which ge nerated this result tra nsmitted reference range : <=1.0. The reference r rob was not used to int erpret this result as normal/abnormal . [facility] HospitalCviuibkCATHYPYLDF9084-54-11 23:00:00 Test Item Value Reference Range Interpretation Comments Eosinophils # (test code 0.2 See_Comment [A utomated message] The = Eosinophils #) system whic h generated this result tra nsmitted reference range : <=0.5. The reference r rob was not used to int erpret this result as normal/abnormal . [facility] CenterKgszhbtRSINVIVFYY9272-85-51 23:00:00 Test Item Value Reference Range Interpretation Comments Basophils # (test code 0.0 See_Comment [Aut omated message] The = Basophils #) system which generated this result tra nsmitted reference range : <=0.2. The reference r rob was not used to int erpret this result as normal/abnormal . [facility]GvbctqxEHZNCIOYUK8452-13-60 23:00:00 Test Item Value Reference Range Interpretation Comments Monocytes # (test code 0.6 See_Comment [Aut omated message] The = Monocytes #) system which generated this result tra nsmitted reference range : <=0.8. The reference r rob was not used to int erpret this result as normal/abnormal . [facility] DallasLcamtcwZYZAMFYLVX8762-43-21 23:00:00 Test Item Value Reference Range Interpretation Comments Lymphocytes (test code = Lymphocytes) 19.2 20.0-40.0 [facility] CenterYbyeoceEONAHDBWWZ7162-56-33 23:00:00 Test Item Value Reference Range Interpretation Comments Monocytes (test code = Monocytes) 8.0 2.0-12.0 [facility] CenterHwcclccUFZPQHBONM4909-35-30 23:00:00 Test Item Value Reference Range Interpretation Comments Lymphocytes # (test code = Lymphocytes 1.3 1.0-5.5 #) [facility]VqzkbjoYFDXBAKWGU7302-17-42 23:00:00 Test Item Value Reference Range Interpretation Comments Segs (test code = Segs) 70.1 45.0-75.0 [facility] CenterInter[facility] 23:00:00 Test Item Value Reference Range Interpretation Comments BNP (test code = BNP) 86 [facility] CenterNitroSecurityCARAvubaINUDFRL4269-67-60 23:00:00 Test Item Value Reference Range Interpretation Comments Troponin-I (test code no gt See_Comment [Auto mated message] The = Troponin-I) system which g enerated this result transmit gustavo reference range : <=0.40. The reference r rob was not used to interpr et this result as layton l/abnormal. [facility] 23:[facility]:00 Test Item Value Reference Range Interpretation Comments CK MB (test code = CK MB) no gt 0.5-3.6 [facility] [id number] 23:00:00 Test Item Value Reference Range Interpretation Comments Total CK (test code = Total CK) 46 12-191 [facility] [id number] 23:00:00 Test Item Value Reference Range Interpretation Comments CK MB Index (test no gt See_Comment [Automate d message] The code = CK MB Index) system w hich generated this result transmit gustavo reference range : <=2.5. The reference range was not used to interpr et this result as layton l/abnormal. [facility] [employer] [id number] 23:00:00 Test Item Value Reference Range Interpretation Comments Phosphorus (test code = Phosphorus) 2.7 2.5-4.5 [facility] [employer] [id number] 23:00:00 Test Item Value Reference Range Interpretation Comments Magnesium Lvl (test code = Magnesium 1.8 1.8-2.4 Lvl) [facility] [employer] [id number] 23:00:00 Test Item Value Reference Range Interpretation Comments BUN (test code = BUN) 13 7-22 [facility] [employer] [id number] 23:00:00 Test Item Value Reference Range Interpretation Comments ALT (test code = ALT) 26 See_Comment [Auto mated message] The system which ge nerated this result transmit gustavo reference range : <=65. The reference range was not used to interpr et this result as layton l/abnormal. [facility] [employer] [id number] 23:00:00 Test Item Value Reference Range Interpretation Comments CO2 (test code = CO2) 27 24-32 [facility] [employer] [id number] 23:00:00 Test Item Value Reference Range Interpretation Comments Glucose Lvl (test code = Glucose Lvl) 270 70-99 [facility] [employer] [id number] 23:00:00 Test Item Value Reference Range Interpretation Comments AGAP (test code = AGAP) 11.5 10.0-20.0 [facility] [employer]2015-06-08 23:00:00 Test Item Value Reference Range Interpretation Comments B/C Ratio (test code = B/C Ratio) 19 6-25 [facility]2015-06-08 23:00:00 Test Item Value Reference Range Interpretation Comments AST (test code = AST) 17 See_Comment [Auto mated message] The system which ge nerated this result transmit gustavo reference range : <=37. The reference range was not used to interpr et this result as layton l/abnormal. [facility]2015-06-08 23:00:00 Test Item Value Reference Range Interpretation Comments eGFR (test code = eGFR) 85 [facility]2015-06-08 23:00:00 Test Item Value Reference Range Interpretation Comments Sodium Lvl (test code = Sodium Lvl) 134 135-145 [facility]2015-06-08 23:00:00 Test Item Value Reference Range Interpretation Comments Creatinine Lvl (test code = Creatinine 0.7 0.5-1.4 Lvl) [facility]2015-06-08 23:00:00 Test Item Value Reference Range Interpretation Comments Potassium Lvl (test code = Potassium 4.5 3.5-5.1 Lvl) [facility]2015-06-08 23:00:00 Test Item Value Reference Range Interpretation Comments Chloride Lvl (test code = Chloride Lvl) 100 95-109 [facility]2015-06-08 23:00:00 Test Item Value Reference Range Interpretation Comments Calcium Lvl (test code = Calcium Lvl) 8.8 8.5-10.5 [facility]2015-06-08 23:00:00 Test Item Value Reference Range Interpretation Comments Albumin Lvl (test code = Albumin Lvl) 3.2 3.5-5.0 [facility]2015-06-08 23:00:00 Test Item Value Reference Range Interpretation Comments A/G Ratio (test code = A/G Ratio) 0.9 0.7-1.6 [facility]2015-06-08 23:00:00 Test Item Value Reference Range Interpretation Comments Bili Total (test code = Bili Total) 0.9 0.2-1.3 [facility]2015-06-08 23:00:00 Test Item Value Reference Range Interpretation Comments Alk Phos (test code = Alk Phos) 96 39-136 [facility]2015-06-08 23:00:00 Test Item Value Reference Range Interpretation Comments Globulin (test code = Globulin) 3.6 2.0-4.0 [facility] [id number] 23:00:00 Test Item Value Reference Range Interpretation Comments Total Protein (test code = Total 6.8 6.4-8.4 Protein) [facility] HospitalRnxrjnrXVQVELZHAR0190-14-44 23:00:00 Test Item Value Reference Range Interpretation Comments RDW (test code = RDW) 13.5 11.5-14.5 [facility] HospitalXgpyvraBLPIWHKCRB9088-10-66 23:00:00 Test Item Value Reference Range Interpretation Comments Platelet (test code = Platelet) 197 133-450 [facility] HospitalKmgdfpvGTJDUTPMTL9294-42-70 23:00:00 Test Item Value Reference Range Interpretation Comments MCH (test code = MCH) 30.0 pg 27.0-31.0 [facility] HospitalOmwkjosKGZPCRWNXM0267-65-66 23:00:00 Test Item Value Reference Range Interpretation Comments MCHC (test code = MCHC) 33.7 32.0-36.0 [facility] HospitalZnzzowmNHSFJWPBYQ9382-04-12 23:00:00 Test Item Value Reference Range Interpretation Comments Hct (test code = Hct) 41.2 36.0-48.0 [facility] HospitalYthmrqvZRXCFOWJGJ3904-53-43 23:00:00 Test Item Value Reference Range Interpretation Comments MCV (test code = MCV) 89.2 80.0-98.0 [facility] HospitalHpacguxBHUVBSNOVI0730-28-44 23:00:00 Test Item Value Reference Range Interpretation Comments MPV (test code = MPV) 8.0 7.4-10.4 [facility] HospitalFhfrdjsSQOVFEGNJH6734-63-67 23:00:00 Test Item Value Reference Range Interpretation Comments Hgb (test code = Hgb) 13.9 12.0-16.0 [facility] HospitalRndsjltHXUKFOTOOX0824-67-48 23:00:00 Test Item Value Reference Range Interpretation Comments RBC (test code = RBC) 4.62 4.20-5.40 [facility] HospitalWpejnzsQXWMPIMCWU3759-27-31 23:00:00 Test Item Value Reference Range Interpretation Comments WBC (test code = WBC) 7.0 3.7-10.4 [facility] HospitalOvwwvccWPDAOXWRYP8135-51-68 23:00:00 Test Item Value Reference Range Interpretation Comments Segs-Bands # (test code = Segs-Bands #) 4.9 1.5-8.1 [facility] HospitalQvtjmdkSADWIFADSD4189-25-93 23:00:00 Test Item Value Reference Range Interpretation Comments Eosinophils (test code = 2.2 See_Comment [A utomated message] The Eosinophils) system which ge nerated this result tra nsmitted reference range : <=4.0. The reference r rob was not used to int erpret this result as normal/abnormal . [facility] HospitalEhmhvhyPFFYQZJZVQ1667-47-80 23:00:00 Test Item Value Reference Range Interpretation Comments Basophils (test code = 0.5 See_Comment [Aut omated message] The Basophils) system which ge nerated this result tra nsmitted reference range : <=1.0. The reference r rob was not used to int erpret this result as normal/abnormal . [facility] HospitalSnbxhdhYYFYMMDGAP0484-67-89 23:00:00 Test Item Value Reference Range Interpretation Comments Eosinophils # (test code 0.2 See_Comment [A utomated message] The = Eosinophils #) system whic h generated this result tra nsmitted reference range : <=0.5. The reference r rob was not used to int erpret this result as normal/abnormal . [facility] HospitalAswwxdoPSOQSGUJSZ6536-66-45 23:00:00 Test Item Value Reference Range Interpretation Comments Basophils # (test code 0.0 See_Comment [Aut omated message] The = Basophils #) system which generated this result tra nsmitted reference range : <=0.2. The reference r rob was not used to int erpret this result as normal/abnormal . [facility] HospitalCxppnjuAQXINGTMVW3618-07-96 23:00:00 Test Item Value Reference Range Interpretation Comments Monocytes # (test code 0.6 See_Comment [Aut omated message] The = Monocytes #) system which generated this result tra nsmitted reference range : <=0.8. The reference r rob was not used to int erpret this result as normal/abnormal . [facility] HospitalRpgicafDGGSASOGUD2410-29-34 23:00:00 Test Item Value Reference Range Interpretation Comments Lymphocytes (test code = Lymphocytes) 19.2 20.0-40.0 [facility] HospitalAngbirvBSRVAXSALL1548-07-43 23:00:00 Test Item Value Reference Range Interpretation Comments Monocytes (test code = Monocytes) 8.0 2.0-12.0 [facility] CenterVoxepynIXNGHAZOFH2648-04-70 23:00:00 Test Item Value Reference Range Interpretation Comments Lymphocytes # (test code = Lymphocytes 1.3 1.0-5.5 #) [facility] CenterClamyzgJZXOYNJUQW9470-04-05 23:00:00 Test Item Value Reference Range Interpretation Comments Segs (test code = Segs) 70.1 45.0-75.0 [facility] CenterannCARDIAC [id number] 23:00:00 Test Item Value Reference Range Interpretation Comments BNP (test code = BNP) 86 [facility] CenterannCARDIAC [id number] 23:00:00 Test Item Value Reference Range Interpretation Comments Troponin-I (test code no gt See_Comment [Auto mated message] The = Troponin-I) system which g enerated this result transmit gustavo reference range : <=0.40. The reference r rob was not used to interpr et this result as layton l/abnormal. [facility] CenterannCARDIAC [id number] 23:00:00 Test Item Value Reference Range Interpretation Comments CK MB (test code = CK MB) no gt 0.5-3.6 [facility] CenterannCARDIAC [id number] 23:00:00 Test Item Value Reference Range Interpretation Comments Total CK (test code = Total CK) 46 12-191 [facility] [id number] 23:00:00 Test Item Value Reference Range Interpretation Comments CK MB Index (test no gt See_Comment [Automate d message] The code = CK MB Index) system w [facility] generated this result transmit gustavo reference range : <=2.5. The reference range was not used to interpr et this result as layton l/abnormal. [facility] EferioannCHEM [id number] 23:00:00 Test Item Value Reference Range Interpretation Comments Phosphorus (test code = Phosphorus) 2.7 2.5-4.5 [facility] HermannCHEM [id number] 23:00:00 Test Item Value Reference Range Interpretation Comments Magnesium Lvl (test code = Magnesium 1.8 1.8-2.4 Lvl) [facility] EferioannCHEM [id number] 23:00:00 Test Item Value Reference Range Interpretation Comments BUN (test code = BUN) 13 7-22 [facility]2015-06-08 23:00:00 Test Item Value Reference Range Interpretation Comments ALT (test code = ALT) 26 See_Comment [Auto mated message] The system which ge nerated this result transmit gustavo reference range : <=65. The reference range was not used to interpr et this result as layton l/abnormal. [facility]2015-06-08 23:00:00 Test Item Value Reference Range Interpretation Comments CO2 (test code = CO2) 27 24-32 [facility]2015-06-08 23:00:00 Test Item Value Reference Range Interpretation Comments Glucose Lvl (test code = Glucose Lvl) 270 70-99 [facility]2015-06-08 23:00:00 Test Item Value Reference Range Interpretation Comments AGAP (test code = AGAP) 11.5 10.0-20.0 [facility]2015-06-08 23:00:00 Test Item Value Reference Range Interpretation Comments B/C Ratio (test code = B/C Ratio) 19 6-25 [facility]2015-06-08 23:00:00 Test Item Value Reference Range Interpretation Comments AST (test code = AST) 17 See_Comment [Auto mated message] The system which ge nerated this result transmit gustavo reference range : <=37. The reference range was not used to interpr et this result as layton l/abnormal. [facility]2015-06-08 23:00:00 Test Item Value Reference Range Interpretation Comments eGFR (test code = eGFR) 85 [facility]2015-06-08 23:00:00 Test Item Value Reference Range Interpretation Comments Sodium Lvl (test code = Sodium Lvl) 134 135-145 [facility]2015-06-08 23:00:00 Test Item Value Reference Range Interpretation Comments Creatinine Lvl (test code = Creatinine 0.7 0.5-1.4 Lvl) [facility]2015-06-08 23:00:00 Test Item Value Reference Range Interpretation Comments Potassium Lvl (test code = Potassium 4.5 3.5-5.1 Lvl) [facility]2015-06-08 23:00:00 Test Item Value Reference Range Interpretation Comments Chloride Lvl (test code = Chloride Lvl) 100 95-109 [facility]2015-06-08 23:00:00 Test Item Value Reference Range Interpretation Comments Calcium Lvl (test code = Calcium Lvl) 8.8 8.5-10.5 [facility]2015-06-08 23:00:00 Test Item Value Reference Range Interpretation Comments Albumin Lvl (test code = Albumin Lvl) 3.2 3.5-5.0 [facility]2015-06-08 23:00:00 Test Item Value Reference Range Interpretation Comments A/G Ratio (test code = A/G Ratio) 0.9 0.7-1.6 [facility]2015-06-08 23:00:00 Test Item Value Reference Range Interpretation Comments Bili Total (test code = Bili Total) 0.9 0.2-1.3 [facility]2015-06-08 23:00:00 Test Item Value Reference Range Interpretation Comments Alk Phos (test code = Alk Phos) 96 39-136 [facility]2015-06-08 23:00:00 Test Item Value Reference Range Interpretation Comments Globulin (test code = Globulin) 3.6 2.0-4.0 [facility]2015-06-08 23:00:00 Test Item Value Reference Range Interpretation Comments Total Protein (test code = Total 6.8 6.4-8.4 Protein) [facility]QJMBABNEWK2925[facility]:00 Test Item Value Reference Range Interpretation Comments RDW (test code = RDW) 13.5 11.5-14.5 [facility] HospitalQqckrpfCFRCMNCSGL2915-12-69 23:00:00 Test Item Value Reference Range Interpretation Comments Platelet (test code = Platelet) 197 133-450 [facility] HospitalBlxufvlSZOQHXYFMY5072-45-14 23:00:00 Test Item Value Reference Range Interpretation Comments MCH (test code = MCH) 30.0 pg 27.0-31.0 [facility] HospitalQouelljNKWFMBXXHE8230-77-87 23:00:00 Test Item Value Reference Range Interpretation Comments MCHC (test code = MCHC) 33.7 32.0-36.0 [facility] HospitalOwzazloQDATUTJJCD2340-20-21 23:00:00 Test Item Value Reference Range Interpretation Comments Hct (test code = Hct) 41.2 36.0-48.0 [facility] HospitalAyatdcvBMTZZNUJJD9408-05-24 23:00:00 Test Item Value Reference Range Interpretation Comments MCV (test code = MCV) 89.2 80.0-98.0 [facility] HospitalAsafwveOXHKKIMNNR3513-98-72 23:00:00 Test Item Value Reference Range Interpretation Comments MPV (test code = MPV) 8.0 7.4-10.4 [facility] HospitalAevmpgtSGZJMETUDO6736-09-21 23:00:00 Test Item Value Reference Range Interpretation Comments Hgb (test code = Hgb) 13.9 12.0-16.0 [facility] HospitalDbbpsagYKYDCJUYMU0885-36-78 23:00:00 Test Item Value Reference Range Interpretation Comments RBC (test code = RBC) 4.62 4.20-5.40 [facility] HospitalImspqyhNWVXUGHVUY2655-09-25 23:00:00 Test Item Value Reference Range Interpretation Comments WBC (test code = WBC) 7.0 3.7-10.4 [facility] HospitalGzieoevALTMPWDGFM6604-75-98 23:00:00 Test Item Value Reference Range Interpretation Comments Segs-Bands # (test code = Segs-Bands #) 4.9 1.5-8.1 [facility] HospitalIxvhgewINAGTHEZGR9230-55-26 23:00:00 Test Item Value Reference Range Interpretation Comments Eosinophils (test code = 2.2 See_Comment [A utomated message] The Eosinophils) system which ge nerated this result tra nsmitted reference range : <=4.0. The reference r rob was not used to int erpret this result as normal/abnormal . [facility] HospitalWclwmkeCWEGLVUPJC5978-71-93 23:00:00 Test Item Value Reference Range Interpretation Comments Basophils (test code = 0.5 See_Comment [Aut omated message] The Basophils) system which ge nerated this result tra nsmitted reference range : <=1.0. The reference r rob was not used to int erpret this result as normal/abnormal . [facility] HospitalUypqvxsJBQQPJJRUT8897-07-17 23:00:00 Test Item Value Reference Range Interpretation Comments Eosinophils # (test code 0.2 See_Comment [A utomated message] The = Eosinophils #) system whic h generated this result tra nsmitted reference range : <=0.5. The reference r rob was not used to int erpret this result as normal/abnormal . [facility] HospitalFmreiajXJAKATQHQE4989-69-15 23:00:00 Test Item Value Reference Range Interpretation Comments Basophils # (test code 0.0 See_Comment [Aut omated message] The = Basophils #) system which generated this result tra nsmitted reference range : <=0.2. The reference r rob was not used to int erpret this result as normal/abnormal . [facility] ElmqidjFONGGADTLZ4670-65-32 23:00:00 Test Item Value Reference Range Interpretation Comments Monocytes # (test code 0.6 See_Comment [Aut omated message] The = Monocytes #) system which generated this result tra nsmitted reference range : <=0.8. The reference r rob was not used to int erpret this result as normal/abnormal . [facility] VpnneqiQATKAVIUQW5788-77-53 23:00:00 Test Item Value Reference Range Interpretation Comments Lymphocytes (test code = Lymphocytes) 19.2 20.0-40.0 [facility] BrwujjiSCZUQDXDLQ1500-29-89 23:00:00 Test Item Value Reference Range Interpretation Comments Monocytes (test code = Monocytes) 8.0 2.0-12.0 [facility] GombmsdFZGYPQYMJM6946-85-24 23:00:00 Test Item Value Reference Range Interpretation Comments Lymphocytes # (test code = Lymphocytes 1.3 1.0-5.5 #) [facility] MdebbyvUTNLRZKMBQ2556-88-78 23:00:00 Test Item Value Reference Range Interpretation Comments Segs (test code = Segs) 70.1 45.0-75.0 [facility] ISORG EETBJAZ3700-25-43 23:00:00 Test Item Value Reference Range Interpretation Comments BNP (test code = BNP) 86 [facility] [employer] CXDKJSY3495-93-95 23:00:00 Test Item Value Reference Range Interpretation Comments Troponin-I (test code = Troponin-I) no gt <=0.40 [facility] [employer] JRLMBPR0896-71-42 23:00:00 Test Item Value Reference Range Interpretation Comments CK MB (test code = CK MB) no gt 0.5-3.6 [facility] [employer] OEJWHOE2657-35-64 23:00:00 Test Item Value Reference Range Interpretation Comments Total CK (test code = Total CK) 46 12-191 [facility] [employer] The[employer]CARSustaining TechnologiesAC [id number] 23:00:00 Test Item Value Reference Range Interpretation Comments CK MB Index (test code = CK MB Index) no gt <=2.5 [facility]2015-06-08 23:00:00 Test Item Value Reference Range Interpretation Comments Phosphorus (test code = Phosphorus) 2.7 2.5-4.5 [facility]2015-06-08 23:00:00 Test Item Value Reference Range Interpretation Comments Magnesium Lvl (test code = Magnesium 1.8 1.8-2.4 Lvl) [facility]2015-06-08 23:00:00 Test Item Value Reference Range Interpretation Comments BUN (test code = BUN) 13 7-22 [facility]2015-06-08 23:00:00 Test Item Value Reference Range Interpretation Comments ALT (test code = ALT) 26 <=65 [facility]2015-06-08 23:00:00 Test Item Value Reference Range Interpretation Comments CO2 (test code = CO2) 27 24-32 [facility]2015-06-08 23:00:00 Test Item Value Reference Range Interpretation Comments Glucose Lvl (test code = Glucose Lvl) 270 70-99 [facility]2015-06-08 23:00:00 Test Item Value Reference Range Interpretation Comments AGAP (test code = AGAP) 11.5 10.0-20.0 [facility]2015-06-08 23:00:00 Test Item Value Reference Range Interpretation Comments B/C Ratio (test code = B/C Ratio) 19 6-25 [facility]2015-06-08 23:00:00 Test Item Value Reference Range Interpretation Comments AST (test code = AST) 17 <=37 [facility]2015-06-08 23:00:00 Test Item Value Reference Range Interpretation Comments eGFR (test code = eGFR) 85 [facility]2015-06-08 23:00:00 Test Item Value Reference Range Interpretation Comments Sodium Lvl (test code = Sodium Lvl) 134 135-145 [facility]2015-06-08 23:00:00 Test Item Value Reference Range Interpretation Comments Creatinine Lvl (test code = Creatinine 0.7 0.5-1.4 Lvl) [facility]2015-06-08 23:00:00 Test Item Value Reference Range Interpretation Comments Potassium Lvl (test code = Potassium 4.5 3.5-5.1 Lvl) [facility]2015-06-08 23:00:00 Test Item Value Reference Range Interpretation Comments Chloride Lvl (test code = Chloride Lvl) 100 95-109 [facility]2015-06-08 23:00:00 Test Item Value Reference Range Interpretation Comments Calcium Lvl (test code = Calcium Lvl) 8.8 8.5-10.5 [facility]2015-06-08 23:00:00 Test Item Value Reference Range Interpretation Comments Albumin Lvl (test code = Albumin Lvl) 3.2 3.5-5.0 [facility]2015-06-08 23:00:00 Test Item Value Reference Range Interpretation Comments A/G Ratio (test code = A/G Ratio) 0.9 0.7-1.6 [facility]2015-06-08 23:00:00 Test Item Value Reference Range Interpretation Comments Bili Total (test code = Bili Total) 0.9 0.2-1.3 [facility]2015-06-08 23:00:00 Test Item Value Reference Range Interpretation Comments Alk Phos (test code = Alk Phos) 96 39-136 [facility]2015-06-08 23:00:00 Test Item Value Reference Range Interpretation Comments Globulin (test code = Globulin) 3.6 2.0-4.0 [facility]2015-06-08 23:00:00 Test Item Value Reference Range Interpretation Comments Total Protein (test code = Total 6.8 6.4-8.4 Protein) [facility] HospitalVarypruVNSSLDDUAK7784-84-48 23:00:00 Test Item Value Reference Range Interpretation Comments RDW (test code = RDW) 13.5 11.5-14.5 [facility] HospitalGuyytddHTWISBHACK8106-01-82 23:00:00 Test Item Value Reference Range Interpretation Comments Platelet (test code = Platelet) 197 133-450 [facility] HospitalQrwnbhkURJMDFOZJO5960-44-50 23:00:00 Test Item Value Reference Range Interpretation Comments MCH (test code = MCH) 30.0 pg 27.0-31.0 [facility] HospitalFlbszacZKVBDUNUEP1920-86-17 23:00:00 Test Item Value Reference Range Interpretation Comments MCHC (test code = MCHC) 33.7 32.0-36.0 [facility] HospitalXrhhhtrUGDHEACBHF0927-12-80 23:00:00 Test Item Value Reference Range Interpretation Comments Hct (test code = Hct) 41.2 36.0-48.0 [facility] HospitalMzflopxCADTGBDRVX6296-22-45 23:00:00 Test Item Value Reference Range Interpretation Comments MCV (test code = MCV) 89.2 80.0-98.0 [facility] HospitalPiglbriWSWCTWJYVX6582-42-23 23:00:00 Test Item Value Reference Range Interpretation Comments MPV (test code = MPV) 8.0 7.4-10.4 [facility] HospitalPccenroHNQELMHKZY9794-65-91 23:00:00 Test Item Value Reference Range Interpretation Comments Hgb (test code = Hgb) 13.9 12.0-16.0 [facility] HospitalLioyegnZVZRJGYNVY5020-13-14 23:00:00 Test Item Value Reference Range Interpretation Comments RBC (test code = RBC) 4.62 4.20-5.40 [facility] HospitalCkontcjQHBSLCWSWH4550-31-91 23:00:00 Test Item Value Reference Range Interpretation Comments WBC (test code = WBC) 7.0 3.7-10.4 [facility] HospitalDenoqzpRGKZJHSXPE9941-98-48 23:00:00 Test Item Value Reference Range Interpretation Comments Segs-Bands # (test code = Segs-Bands #) 4.9 1.5-8.1 [facility] HospitalJatplzpDKGMZHIDEW0729-70-67 23:00:00 Test Item Value Reference Range Interpretation Comments Eosinophils (test code = Eosinophils) 2.2 <=4.0 [facility] HospitalEhjrxywRHYFPQSEHV9111-95-30 23:00:00 Test Item Value Reference Range Interpretation Comments Basophils (test code = Basophils) 0.5 <=1.0 [facility] HospitalGftptveQMYEKIRHXI9773-52-54 23:00:00 Test Item Value Reference Range Interpretation Comments Eosinophils # (test code = Eosinophils 0.2 <=0.5 #) [facility] HospitalHnrywrjCKTYUBLXKY1739-33-67 23:00:00 Test Item Value Reference Range Interpretation Comments Basophils # (test code = Basophils #) 0.0 <=0.2 [facility] HospitalRcgrcwgKTHVQEGMLC9904-91-55 23:00:00 Test Item Value Reference Range Interpretation Comments Monocytes # (test code = Monocytes #) 0.6 <=0.8 [facility] BvgzxyuZYTTLJWLIK0562-51-80 23:00:00 Test Item Value Reference Range Interpretation Comments Lymphocytes (test code = Lymphocytes) 19.2 20.0-40.0 [facility] IxrgpriVZSXLRDQAD2342-00-00 23:00:00 Test Item Value Reference Range Interpretation Comments Monocytes (test code = Monocytes) 8.0 2.0-12.0 [facility] NabpzqhPXWDKSPALT8870-72-62 23:00:00 Test Item Value Reference Range Interpretation Comments Lymphocytes # (test code = Lymphocytes 1.3 1.0-5.5 #) [facility] XeexeymXPQSJCBEEY9084-33-64 23:00:00 Test Item Value Reference Range Interpretation Comments Segs (test code = Segs) 70.1 45.0-75.0 [facility] EferioannCARDIAC EIWBURK7110-76-79 23:00:00 Test Item Value Reference Range Interpretation Comments BNP (test code = BNP) 86 [facility] EferioannCARDIAC [id number] 23:00:00 Test Item Value Reference Range Interpretation Comments Troponin-I (test code = Troponin-I) no gt <=0.40 [facility] EferioannCARDIAC MQWJQMH4579-53-16 23:00:00 Test Item Value Reference Range Interpretation Comments CK MB (test code = CK MB) no gt 0.5-3.6 [facility] EferioannCARDIAC LLPICNO5429-05-11 23:00:00 Test Item Value Reference Range Interpretation Comments Total CK (test code = Total CK) 46 12-191 [facility] EferioannLuckyPennieAC DJMWDNQ9831-01-56 23:00:00 Test Item Value Reference Range Interpretation Comments CK MB Index (test code = CK MB Index) no gt <=2.5 [facility] [employer] [id number] 23:00:00 Test Item Value Reference Range Interpretation Comments Phosphorus (test code = Phosphorus) 2.7 2.5-4.5 [facility] EferioannCHEM [id number] 23:00:00 Test Item Value Reference Range Interpretation Comments Magnesium Lvl (test code = Magnesium 1.8 1.8-2.4 Lvl) [facility] [id number] 23:00:00 Test Item Value Reference Range Interpretation Comments BUN (test code = BUN) 13 7-22 [facility] [employer] [id number] 23:00:00 Test Item Value Reference Range Interpretation Comments ALT (test code = ALT) 26 <=65 [facility]2015-06-08 23:00:00 Test Item Value Reference Range Interpretation Comments CO2 (test code = CO2) 27 24-32 [facility]2015-06-08 23:00:00 Test Item Value Reference Range Interpretation Comments Glucose Lvl (test code = Glucose Lvl) 270 70-99 [facility]2015-06-08 23:00:00 Test Item Value Reference Range Interpretation Comments AGAP (test code = AGAP) 11.5 10.0-20.0 [facility]2015-06-08 23:00:00 Test Item Value Reference Range Interpretation Comments B/C Ratio (test code = B/C Ratio) 19 6-25 [facility]2015-06-08 23:00:00 Test Item Value Reference Range Interpretation Comments AST (test code = AST) 17 <=37 [facility]2015-06-08 23:00:00 Test Item Value Reference Range Interpretation Comments eGFR (test code = eGFR) 85 [facility]2015-06-08 23:00:00 Test Item Value Reference Range Interpretation Comments Sodium Lvl (test code = Sodium Lvl) 134 135-145 [facility]2015-06-08 23:00:00 Test Item Value Reference Range Interpretation Comments Creatinine Lvl (test code = Creatinine 0.7 0.5-1.4 Lvl) [facility]2015-06-08 23:00:00 Test Item Value Reference Range Interpretation Comments Potassium Lvl (test code = Potassium 4.5 3.5-5.1 Lvl) [facility]2015-06-08 23:00:00 Test Item Value Reference Range Interpretation Comments Chloride Lvl (test code = Chloride Lvl) 100 95-109 [facility]2015-06-08 23:00:00 Test Item Value Reference Range Interpretation Comments Calcium Lvl (test code = Calcium Lvl) 8.8 8.5-10.5 [facility]2015-06-08 23:00:00 Test Item Value Reference Range Interpretation Comments Albumin Lvl (test code = Albumin Lvl) 3.2 3.5-5.0 [facility]2015-06-08 23:00:00 Test Item Value Reference Range Interpretation Comments A/G Ratio (test code = A/G Ratio) 0.9 0.7-1.6 [facility]2015-06-08 23:00:00 Test Item Value Reference Range Interpretation Comments Bili Total (test code = Bili Total) 0.9 0.2-1.3 [facility]2015-06-08 23:00:00 Test Item Value Reference Range Interpretation Comments Alk Phos (test code = Alk Phos) 96 39-136 [facility]2015-06-08 23:00:00 Test Item Value Reference Range Interpretation Comments Globulin (test code = Globulin) 3.6 2.0-4.0 [facility]2015-06-08 23:00:00 Test Item Value Reference Range Interpretation Comments Total Protein (test code = Total 6.8 6.4-8.4 Protein) [facility] HospitalOtsbynsRFWVDPOMSQ0356-84-33 23:00:00 Test Item Value Reference Range Interpretation Comments RDW (test code = RDW) 13.5 11.5-14.5 [facility] HospitalMpnazaeTKWPOJQCLJ8875-07-63 23:00:00 Test Item Value Reference Range Interpretation Comments Platelet (test code = Platelet) 197 133-450 [facility] HospitalNvwllxzEDHHDRDWWD7727-39-67 23:00:00 Test Item Value Reference Range Interpretation Comments MCH (test code = MCH) 30.0 pg 27.0-31.0 [facility] HospitalPecpwdiCCMZGSCQQC6437-05-91 23:00:00 Test Item Value Reference Range Interpretation Comments MCHC (test code = MCHC) 33.7 32.0-36.0 [facility] HospitalNphfsqwCJXYXLYDPB5341-62-58 23:00:00 Test Item Value Reference Range Interpretation Comments Hct (test code = Hct) 41.2 36.0-48.0 [facility] HospitalRwrhnlaMBYJXVMDBC6616-11-41 23:00:00 Test Item Value Reference Range Interpretation Comments MCV (test code = MCV) 89.2 80.0-98.0 [facility] HospitalImvhtlcWVFPUOKTGN8548-84-88 23:00:00 Test Item Value Reference Range Interpretation Comments MPV (test code = MPV) 8.0 7.4-10.4 [facility] HospitalEfmvstiLQFWWRXWZI5753-98-11 23:00:00 Test Item Value Reference Range Interpretation Comments Hgb (test code = Hgb) 13.9 12.0-16.0 [facility] HospitalCnvsiiaMJRCDBVUTY7250-28-97 23:00:00 Test Item Value Reference Range Interpretation Comments RBC (test code = RBC) 4.62 4.20-5.40 [facility] HospitalBcajptdNRCYCUWPFJ3884-20-40 23:00:00 Test Item Value Reference Range Interpretation Comments WBC (test code = WBC) 7.0 3.7-10.4 [facility] HospitalDtemjjzRIZNYURNJR8605-92-08 23:00:00 Test Item Value Reference Range Interpretation Comments Segs-Bands # (test code = Segs-Bands #) 4.9 1.5-8.1 [facility] HospitalBvygjwpXMTDLRWMDX0081-36-01 23:00:00 Test Item Value Reference Range Interpretation Comments Eosinophils (test code = Eosinophils) 2.2 <=4.0 [facility] HospitalYzscpxbLAVOVLQQBL0432-79-51 23:00:00 Test Item Value Reference Range Interpretation Comments Basophils (test code = Basophils) 0.5 <=1.0 [facility] HospitalHnsrxgrSJNPMLWOHM1830-55-74 23:00:00 Test Item Value Reference Range Interpretation Comments Eosinophils # (test code = Eosinophils 0.2 <=0.5 #) [facility] HospitalZuyxkupZAOXBMQKDI3529-37-28 23:00:00 Test Item Value Reference Range Interpretation Comments Basophils # (test code = Basophils #) 0.0 <=0.2 [facility] HospitalEbfrogzYEDIJQKJBS4686-28-96 23:00:00 Test Item Value Reference Range Interpretation Comments Monocytes # (test code = Monocytes #) 0.6 <=0.8 [facility] HospitalTvsuioaDQOKOQWATZ5906-02-64 23:00:00 Test Item Value Reference Range Interpretation Comments Lymphocytes (test code = Lymphocytes) 19.2 20.0-40.0 [facility] HospitalNwikkhtZSTBFXSJZJ5137-49-06 23:00:00 Test Item Value Reference Range Interpretation Comments Monocytes (test code = Monocytes) 8.0 2.0-12.0 [facility] HospitalAidohtrPAKBCIJSOZ9682-17-80 23:00:00 Test Item Value Reference Range Interpretation Comments Lymphocytes # (test code = Lymphocytes 1.3 1.0-5.5 #) [facility] HospitalDancitlWNRXABGBBE6805-78-55 23:00:00 Test Item Value Reference Range Interpretation Comments Segs (test code = Segs) 70.1 45.0-75.0 [facility] AND [id number] 21:45:00 Test Item Value Reference Range Interpretation Comments UA Urobilinogen (test code = UA <=1.0 mg/dL 0.1-1.0 Urobilinogen) [facility] AND [id number] 21:45:00 Test Item Value Reference Range Interpretation Comments UA Blood (test code = Negative (02/18/15 4:45 UA Blood) PM) [facility] AND [id number] 21:45:00 Test Item Value Reference Range Interpretation Comments UA Nitrite (test code Negative (02/18/15 4:45 = UA Nitrite) PM) [facility] AND [id number] 21:45:00 Test Item Value Reference Range Interpretation Comments UA Glucose (test code = UA >=1000 mg/dL Glucose) [facility] AND [id number] 21:45:00 Test Item Value Reference Range Interpretation Comments UA Bili (test code = Negative *NA*(02/18/15 UA Bili) 4:45 PM) [facility] AND [id number] 21:45:00 Test Item Value Reference Range Interpretation Comments UA Ketones (test code = UA Negative mg/dL Ketones) [facility] AND [id number] 21:45:00 Test Item Value Reference Range Interpretation Comments UA WBC (test code = no gt See_Comment [Automa gustavo message] The UA WBC) system which ge nerated this result transmit gustavo reference range : <=5. The reference range was not used to interpr et this result as layton l/abnormal. [facility] AND [id number] 21:45:00 Test Item Value Reference Range Interpretation Comments UA Leuk Est (test Negative (02/18/15 4:45 code = UA Leuk Est) PM) [facility] AND [id number] 21:45:00 Test Item Value Reference Range Interpretation Comments UA Sq Epi (test code = UA Sq Moderate /LPF Epi) [facility] AND [id number] 21:45:00 Test Item Value Reference Range Interpretation Comments UA Protein (test code = UA Protein) 20 mg/dL [facility] AND [id number] 21:45:00 Test Item Value Reference Range Interpretation Comments UA Turbidity (test code Slight *ABN*(02/18/15 = UA Turbidity) 4:45 PM) [facility] AND [id number] 21:45:00 Test Item Value Reference Range Interpretation Comments UA Color (test code = Yellow *NA*(02/18/15 4:45 UA Color) PM) [facility] AND [id number] 21:45:00 Test Item Value Reference Range Interpretation Comments UA Spec Grav (test code = UA Spec Grav) 1.017 [facility] AND [id number] 21:45:00 Test Item Value Reference Range Interpretation Comments UA pH (test code = UA pH) 8.0 5.0-8.0 [facility] AND [id number] 21:45:00 Test Item Value Reference Range Interpretation Comments UA Urobilinogen (test code = UA <=1.0 mg/dL 0.1-1.0 Urobilinogen) [facility] AND [id number] 21:45:00 Test Item Value Reference Range Interpretation Comments UA Blood (test code = Negative (02/18/15 4:45 UA Blood) PM) [facility] AND [id number] 21:45:00 Test Item Value Reference Range Interpretation Comments UA Nitrite (test code Negative (02/18/15 4:45 = UA Nitrite) PM) [facility] AND [id number] 21:45:00 Test Item Value Reference Range Interpretation Comments UA Glucose (test code = UA >=1000 mg/dL Glucose) [facility] AND [id number] 21:45:00 Test Item Value Reference Range Interpretation Comments UA Bili (test code = Negative *NA*(02/18/15 UA Bili) 4:45 PM) [facility] AND [id number] 21:45:00 Test Item Value Reference Range Interpretation Comments UA Ketones (test code = UA Negative mg/dL Ketones) [facility] AND [id number] 21:45:00 Test Item Value Reference Range Interpretation Comments UA WBC (test code = no gt See_Comment [Automa gustavo message] The UA WBC) system which ge nerated this result transmit gustavo reference range : <=5. The reference range was not used to interpr et this result as layton l/abnormal. [facility] AND [id number] 21:45:00 Test Item Value Reference Range Interpretation Comments UA Leuk Est (test Negative (02/18/15 4:45 code = UA Leuk Est) PM) [facility] AND [id number] 21:45:00 Test Item Value Reference Range Interpretation Comments UA Sq Epi (test code = UA Sq Moderate /LPF Epi) [facility] AND [id number] 21:45:00 Test Item Value Reference Range Interpretation Comments UA Protein (test code = UA Protein) 20 mg/dL [facility] AND [id number] 21:45:00 Test Item Value Reference Range Interpretation Comments UA Turbidity (test code Slight *ABN*(02/18/15 = UA Turbidity) 4:45 PM) [facility] AND [id number] 21:45:00 Test Item Value Reference Range Interpretation Comments UA Color (test code = Yellow *NA*(02/18/15 4:45 UA Color) PM) [facility] AND [id number] 21:45:00 Test Item Value Reference Range Interpretation Comments UA Spec Grav (test code = UA Spec Grav) 1.017 [facility] AND [id number] 21:45:00 Test Item Value Reference Range Interpretation Comments UA pH (test code = UA pH) 8.0 5.0-8.0 [facility] AND [id number] 21:45:00 Test Item Value Reference Range Interpretation Comments UA Urobilinogen (test code = UA <=1.0 mg/dL 0.1-1.0 Urobilinogen) [facility] AND [id number] 21:45:00 Test Item Value Reference Range Interpretation Comments UA Blood (test code = Negative (02/18/15 4:45 UA Blood) PM) [facility] AND [id number] 21:45:00 Test Item Value Reference Range Interpretation Comments UA Nitrite (test code Negative (02/18/15 4:45 = UA Nitrite) PM) [facility] AND [id number] 21:45:00 Test Item Value Reference Range Interpretation Comments UA Glucose (test code = UA >=1000 mg/dL Glucose) [facility] AND [id number] 21:45:00 Test Item Value Reference Range Interpretation Comments UA Bili (test code = Negative *NA*(02/18/15 UA Bili) 4:45 PM) [facility] AND [id number] 21:45:00 Test Item Value Reference Range Interpretation Comments UA Ketones (test code = UA Negative mg/dL Ketones) [facility] AND [id number] 21:45:00 Test Item Value Reference Range Interpretation Comments UA WBC (test code = no gt See_Comment [Automa gustavo message] The UA WBC) system which ge nerated this result transmit gustavo reference range : <=5. The reference range was not used to interpr et this result as layton l/abnormal. [facility] AND [id number] 21:45:00 Test Item Value Reference Range Interpretation Comments UA Leuk Est (test Negative (02/18/15 4:45 code = UA Leuk Est) PM) [facility] AND [id number] 21:45:00 Test Item Value Reference Range Interpretation Comments UA Sq Epi (test code = UA Sq Moderate /LPF Epi) [facility] AND [id number] 21:45:00 Test Item Value Reference Range Interpretation Comments UA Protein (test code = UA Protein) 20 mg/dL [facility] AND [id number] 21:45:00 Test Item Value Reference Range Interpretation Comments UA Turbidity (test code Slight *ABN*(02/18/15 = UA Turbidity) 4:45 PM) [facility] AND [id number] 21:45:00 Test Item Value Reference Range Interpretation Comments UA Color (test code = Yellow *NA*(02/18/15 4:45 UA Color) PM) [facility] AND [id number] 21:45:00 Test Item Value Reference Range Interpretation Comments UA Spec Grav (test code = UA Spec Grav) 1.017 [facility] AND [id number] 21:45:00 Test Item Value Reference Range Interpretation Comments UA pH (test code = UA pH) 8.0 5.0-8.0 [facility] AND [id number] 21:45:00 Test Item Value Reference Range Interpretation Comments UA Urobilinogen (test code = UA <=1.0 mg/dL 0.1-1.0 Urobilinogen) [facility] AND [id number] 21:45:00 Test Item Value Reference Range Interpretation Comments UA Blood (test code = Negative (02/18/15 4:45 UA Blood) PM) [facility] AND [id number] 21:45:00 Test Item Value Reference Range Interpretation Comments UA Nitrite (test code Negative (02/18/15 4:45 = UA Nitrite) PM) [facility] AND [id number] 21:45:00 Test Item Value Reference Range Interpretation Comments UA Glucose (test code = UA >=1000 mg/dL Glucose) [facility] AND [id number] 21:45:00 Test Item Value Reference Range Interpretation Comments UA Bili (test code = Negative *NA*(02/18/15 UA Bili) 4:45 PM) [facility] AND [id number] 21:45:00 Test Item Value Reference Range Interpretation Comments UA Ketones (test code = UA Negative mg/dL Ketones) [facility] AND [id number] 21:45:00 Test Item Value Reference Range Interpretation Comments UA WBC (test code = no gt See_Comment [Automa gustavo message] The UA WBC) system which ge nerated this result transmit gustavo reference range : <=5. The reference range was not used to interpr et this result as layton l/abnormal. [facility] AND [id number] 21:45:00 Test Item Value Reference Range Interpretation Comments UA Leuk Est (test Negative (02/18/15 4:45 code = UA Leuk Est) PM) [facility] AND [id number] 21:45:00 Test Item Value Reference Range Interpretation Comments UA Sq Epi (test code = UA Sq Moderate /LPF Epi) [facility] AND [id number] 21:45:00 Test Item Value Reference Range Interpretation Comments UA Protein (test code = UA Protein) 20 mg/dL [facility] AND [id number] 21:45:00 Test Item Value Reference Range Interpretation Comments UA Turbidity (test code Slight *ABN*(02/18/15 = UA Turbidity) 4:45 PM) [facility] AND [id number] 21:45:00 Test Item Value Reference Range Interpretation Comments UA Color (test code = Yellow *NA*(02/18/15 4:45 UA Color) PM) [facility] AND [id number] 21:45:00 Test Item Value Reference Range Interpretation Comments UA Spec Grav (test code = UA Spec Grav) 1.017 [facility] AND [id number] 21:45:00 Test Item Value Reference Range Interpretation Comments UA pH (test code = UA pH) 8.0 5.0-8.0 [facility] AND [id number] 21:45:00 Test Item Value Reference Range Interpretation Comments UA Urobilinogen (test code = UA <=1.0 mg/dL 0.1-1.0 Urobilinogen) [facility] AND [id number] 21:45:00 Test Item Value Reference Range Interpretation Comments UA Blood (test code = Negative (02/18/15 4:45 UA Blood) PM) [facility] AND [id number] 21:45:00 Test Item Value Reference Range Interpretation Comments UA Nitrite (test code Negative (02/18/15 4:45 = UA Nitrite) PM) [facility] AND [id number] 21:45:00 Test Item Value Reference Range Interpretation Comments UA Glucose (test code = UA >=1000 mg/dL Glucose) [facility] AND [id number] 21:45:00 Test Item Value Reference Range Interpretation Comments UA Bili (test code = Negative *NA*(02/18/15 UA Bili) 4:45 PM) [facility] AND [id number] 21:45:00 Test Item Value Reference Range Interpretation Comments UA Ketones (test code = UA Negative mg/dL Ketones) [facility] AND [id number] 21:45:00 Test Item Value Reference Range Interpretation Comments UA WBC (test code = no gt See_Comment [Automa gustavo message] The UA WBC) system which ge nerated this result transmit gustavo reference range : <=5. The reference range was not used to interpr et this result as layton l/abnormal. [facility] AND [id number] 21:45:00 Test Item Value Reference Range Interpretation Comments UA Leuk Est (test Negative (02/18/15 4:45 code = UA Leuk Est) PM) [facility] AND [id number] 21:45:00 Test Item Value Reference Range Interpretation Comments UA Sq Epi (test code = UA Sq Moderate /LPF Epi) [facility] AND [id number] 21:45:00 Test Item Value Reference Range Interpretation Comments UA Protein (test code = UA Protein) 20 mg/dL [facility] AND [id number] 21:45:00 Test Item Value Reference Range Interpretation Comments UA Turbidity (test code Slight *ABN*(02/18/15 = UA Turbidity) 4:45 PM) [facility] AND [id number] 21:45:00 Test Item Value Reference Range Interpretation Comments UA Color (test code = Yellow *NA*(02/18/15 4:45 UA Color) PM) [facility] AND [id number] 21:45:00 Test Item Value Reference Range Interpretation Comments UA Spec Grav (test code = UA Spec Grav) 1.017 [facility] AND [id number] 21:45:00 Test Item Value Reference Range Interpretation Comments UA pH (test code = UA pH) 8.0 5.0-8.0 [facility] AND [id number] 21:45:00 Test Item Value Reference Range Interpretation Comments UA Urobilinogen (test code = UA <=1.0 mg/dL 0.1-1.0 Urobilinogen) [facility] AND [id number] 21:45:00 Test Item Value Reference Range Interpretation Comments UA Blood (test code = Negative (02/18/15 4:45 UA Blood) PM) [facility] AND [id number] 21:45:00 Test Item Value Reference Range Interpretation Comments UA Nitrite (test code Negative (02/18/15 4:45 = UA Nitrite) PM) [facility] AND [id number] 21:45:00 Test Item Value Reference Range Interpretation Comments UA Glucose (test code = UA >=1000 mg/dL Glucose) [facility] AND [id number] 21:45:00 Test Item Value Reference Range Interpretation Comments UA Bili (test code = Negative *NA*(02/18/15 UA Bili) 4:45 PM) [facility] AND [id number] 21:45:00 Test Item Value Reference Range Interpretation Comments UA Ketones (test code = UA Negative mg/dL Ketones) [facility] AND [id number] 21:45:00 Test Item Value Reference Range Interpretation Comments UA WBC (test code = no gt See_Comment [Automa gustavo message] The UA WBC) system which ge nerated this result transmit gustavo reference range : <=5. The reference range was not used to interpr et this result as layton l/abnormal. [facility] AND [id number] 21:45:00 Test Item Value Reference Range Interpretation Comments UA Leuk Est (test Negative (02/18/15 4:45 code = UA Leuk Est) PM) [facility] AND [id number] 21:45:00 Test Item Value Reference Range Interpretation Comments UA Sq Epi (test code = UA Sq Moderate /LPF Epi) [facility] AND [id number] 21:45:00 Test Item Value Reference Range Interpretation Comments UA Protein (test code = UA Protein) 20 mg/dL [facility] AND [id number] 21:45:00 Test Item Value Reference Range Interpretation Comments UA Turbidity (test code Slight *ABN*(02/18/15 = UA Turbidity) 4:45 PM) [facility] AND [id number] 21:45:00 Test Item Value Reference Range Interpretation Comments UA Color (test code = Yellow *NA*(02/18/15 4:45 UA Color) PM) [facility] AND [id number] 21:45:00 Test Item Value Reference Range Interpretation Comments UA Spec Grav (test code = UA Spec Grav) 1.017 [facility] AND [id number] 21:45:00 Test Item Value Reference Range Interpretation Comments UA pH (test code = UA pH) 8.0 5.0-8.0 [facility] AND [id number] 21:45:00 Test Item Value Reference Range Interpretation Comments UA Urobilinogen (test code = UA <=1.0 mg/dL 0.1-1.0 Urobilinogen) [facility] AND [id number] 21:45:00 Test Item Value Reference Range Interpretation Comments UA Blood (test code = Negative (02/18/15 4:45 UA Blood) PM) [facility] AND [id number] 21:45:00 Test Item Value Reference Range Interpretation Comments UA Nitrite (test code Negative (02/18/15 4:45 = UA Nitrite) PM) [facility] AND [id number] 21:45:00 Test Item Value Reference Range Interpretation Comments UA Glucose (test code = UA >=1000 mg/dL Glucose) [facility] AND [id number] 21:45:00 Test Item Value Reference Range Interpretation Comments UA Bili (test code = Negative *NA*(02/18/15 UA Bili) 4:45 PM) [facility] AND [id number] 21:45:00 Test Item Value Reference Range Interpretation Comments UA Ketones (test code = UA Negative mg/dL Ketones) [facility] AND [id number] 21:45:00 Test Item Value Reference Range Interpretation Comments UA WBC (test code = no gt See_Comment [Automa gustavo message] The UA WBC) system which ge nerated this result transmit gustavo reference range : <=5. The reference range was not used to interpr et this result as layton l/abnormal. [facility] AND [id number] 21:45:00 Test Item Value Reference Range Interpretation Comments UA Leuk Est (test Negative (02/18/15 4:45 code = UA Leuk Est) PM) [facility] AND [id number] 21:45:00 Test Item Value Reference Range Interpretation Comments UA Sq Epi (test code = UA Sq Moderate /LPF Epi) [facility] AND [id number] 21:45:00 Test Item Value Reference Range Interpretation Comments UA Protein (test code = UA Protein) 20 mg/dL [facility] AND [id number] 21:45:00 Test Item Value Reference Range Interpretation Comments UA Turbidity (test code Slight *ABN*(02/18/15 = UA Turbidity) 4:45 PM) [facility] AND [id number] 21:45:00 Test Item Value Reference Range Interpretation Comments UA Color (test code = Yellow *NA*(02/18/15 4:45 UA Color) PM) [facility] AND [id number] 21:45:00 Test Item Value Reference Range Interpretation Comments UA Spec Grav (test code = UA Spec Grav) 1.017 [facility] AND [id number] 21:45:00 Test Item Value Reference Range Interpretation Comments UA pH (test code = UA pH) 8.0 5.0-8.0 [facility] AND [id number] 21:45:00 Test Item Value Reference Range Interpretation Comments UA Urobilinogen (test code = UA <=1.0 mg/dL 0.1-1.0 Urobilinogen) [facility] AND [id number] 21:45:00 Test Item Value Reference Range Interpretation Comments UA Blood (test code = Negative (02/18/15 4:45 UA Blood) PM) [facility] AND [id number] 21:45:00 Test Item Value Reference Range Interpretation Comments UA Nitrite (test code Negative (02/18/15 4:45 = UA Nitrite) PM) [facility] AND [id number] 21:45:00 Test Item Value Reference Range Interpretation Comments UA Glucose (test code = UA >=1000 mg/dL Glucose) [facility] AND [id number] 21:45:00 Test Item Value Reference Range Interpretation Comments UA Bili (test code = Negative *NA*(02/18/15 UA Bili) 4:45 PM) [facility] AND [id number] 21:45:00 Test Item Value Reference Range Interpretation Comments UA Ketones (test code = UA Negative mg/dL Ketones) [facility] AND [id number] 21:45:00 Test Item Value Reference Range Interpretation Comments UA WBC (test code = no gt See_Comment [Automa gustavo message] The UA WBC) system which ge nerated this result transmit gustavo reference range : <=5. The reference range was not used to interpr et this result as layton l/abnormal. [facility] AND [id number] 21:45:00 Test Item Value Reference Range Interpretation Comments UA Leuk Est (test Negative (02/18/15 4:45 code = UA Leuk Est) PM) [facility] AND [id number] 21:45:00 Test Item Value Reference Range Interpretation Comments UA Sq Epi (test code = UA Sq Moderate /LPF Epi) [facility] AND [id number] 21:45:00 Test Item Value Reference Range Interpretation Comments UA Protein (test code = UA Protein) 20 mg/dL [facility] AND [id number] 21:45:00 Test Item Value Reference Range Interpretation Comments UA Turbidity (test code Slight *ABN*(02/18/15 = UA Turbidity) 4:45 PM) [facility] AND [id number] 21:45:00 Test Item Value Reference Range Interpretation Comments UA Color (test code = Yellow *NA*(02/18/15 4:45 UA Color) PM) [facility] AND [id number] 21:45:00 Test Item Value Reference Range Interpretation Comments UA Spec Grav (test code = UA Spec Grav) 1.017 [facility] AND [id number] 21:45:00 Test Item Value Reference Range Interpretation Comments UA pH (test code = UA pH) 8.0 5.0-8.0 [facility] AND [id number] 21:45:00 Test Item Value Reference Range Interpretation Comments UA Urobilinogen (test code = UA <=1.0 mg/dL 0.1-1.0 Urobilinogen) [facility] AND [id number] 21:45:00 Test Item Value Reference Range Interpretation Comments UA Blood (test code = Negative (02/18/15 4:45 UA Blood) PM) [facility] AND [id number] 21:45:00 Test Item Value Reference Range Interpretation Comments UA Nitrite (test code Negative (02/18/15 4:45 = UA Nitrite) PM) [facility] AND [id number] 21:45:00 Test Item Value Reference Range Interpretation Comments UA Glucose (test code = UA >=1000 mg/dL Glucose) [facility] AND [id number] 21:45:00 Test Item Value Reference Range Interpretation Comments UA Bili (test code = Negative *NA*(02/18/15 UA Bili) 4:45 PM) [facility] AND [id number] 21:45:00 Test Item Value Reference Range Interpretation Comments UA Ketones (test code = UA Negative mg/dL Ketones) [facility] AND [id number] 21:45:00 Test Item Value Reference Range Interpretation Comments UA WBC (test code = no gt See_Comment [Automa gustavo message] The UA WBC) system which ge nerated this result transmit gustavo reference range : <=5. The reference range was not used to interpr et this result as layton l/abnormal. [facility] AND [id number] 21:45:00 Test Item Value Reference Range Interpretation Comments UA Leuk Est (test Negative (02/18/15 4:45 code = UA Leuk Est) PM) [facility] AND [id number] 21:45:00 Test Item Value Reference Range Interpretation Comments UA Sq Epi (test code = UA Sq Moderate /LPF Epi) [facility] AND [id number] 21:45:00 Test Item Value Reference Range Interpretation Comments UA Protein (test code = UA Protein) 20 mg/dL [facility] AND [id number] 21:45:00 Test Item Value Reference Range Interpretation Comments UA Turbidity (test code Slight *ABN*(02/18/15 = UA Turbidity) 4:45 PM) [facility] AND [id number] 21:45:00 Test Item Value Reference Range Interpretation Comments UA Color (test code = Yellow *NA*(02/18/15 4:45 UA Color) PM) [facility] AND [id number] 21:45:00 Test Item Value Reference Range Interpretation Comments UA Spec Grav (test code = UA Spec Grav) 1.017 [facility] AND [id number] 21:45:00 Test Item Value Reference Range Interpretation Comments UA pH (test code = UA pH) 8.0 5.0-8.0 [facility] AND [id number] 21:45:00 Test Item Value Reference Range Interpretation Comments UA Urobilinogen (test code = UA <=1.0 mg/dL 0.1-1.0 Urobilinogen) [facility] AND [id number] 21:45:00 Test Item Value Reference Range Interpretation Comments UA Blood (test code = Negative (02/18/15 4:45 UA Blood) PM) [facility] AND [id number] 21:45:00 Test Item Value Reference Range Interpretation Comments UA Nitrite (test code Negative (02/18/15 4:45 = UA Nitrite) PM) [facility] AND [id number] 21:45:00 Test Item Value Reference Range Interpretation Comments UA Glucose (test code = UA >=1000 mg/dL Glucose) [facility] AND [id number] 21:45:00 Test Item Value Reference Range Interpretation Comments UA Bili (test code = Negative *NA*(02/18/15 UA Bili) 4:45 PM) [facility] AND [id number] 21:45:00 Test Item Value Reference Range Interpretation Comments UA Ketones (test code = UA Negative mg/dL Ketones) [facility] AND [id number] 21:45:00 Test Item Value Reference Range Interpretation Comments UA WBC (test code = UA WBC) no gt <=5 [facility] AND [id number] 21:45:00 Test Item Value Reference Range Interpretation Comments UA Leuk Est (test Negative (02/18/15 4:45 code = UA Leuk Est) PM) [facility] AND [id number] 21:45:00 Test Item Value Reference Range Interpretation Comments UA Sq Epi (test code = UA Sq Moderate /LPF Epi) [facility] AND [id number] 21:45:00 Test Item Value Reference Range Interpretation Comments UA Protein (test code = UA Protein) 20 mg/dL [facility] AND [id number] 21:45:00 Test Item Value Reference Range Interpretation Comments UA Turbidity (test code Slight *ABN*(02/18/15 = UA Turbidity) 4:45 PM) [facility] AND [id number] 21:45:00 Test Item Value Reference Range Interpretation Comments UA Color (test code = Yellow *NA*(02/18/15 4:45 UA Color) PM) [facility] AND [id number] 21:45:00 Test Item Value Reference Range Interpretation Comments UA Spec Grav (test code = UA Spec Grav) 1.017 [facility] AND [id number] 21:45:00 Test Item Value Reference Range Interpretation Comments UA pH (test code = UA pH) 8.0 5.0-8.0 [facility] AND [id number] 21:45:00 Test Item Value Reference Range Interpretation Comments UA Urobilinogen (test code = UA <=1.0 mg/dL 0.1-1.0 Urobilinogen) [facility] AND [id number] 21:45:00 Test Item Value Reference Range Interpretation Comments UA Blood (test code = Negative (02/18/15 4:45 UA Blood) PM) [facility] AND [id number] 21:45:00 Test Item Value Reference Range Interpretation Comments UA Nitrite (test code Negative (02/18/15 4:45 = UA Nitrite) PM) [facility] AND [id number] 21:45:00 Test Item Value Reference Range Interpretation Comments UA Glucose (test code = UA >=1000 mg/dL Glucose) [facility] AND [id number] 21:45:00 Test Item Value Reference Range Interpretation Comments UA Bili (test code = Negative *NA*(02/18/15 UA Bili) 4:45 PM) [facility] AND [id number] 21:45:00 Test Item Value Reference Range Interpretation Comments UA Ketones (test code = UA Negative mg/dL Ketones) [facility] AND [id number] 21:45:00 Test Item Value Reference Range Interpretation Comments UA WBC (test code = UA WBC) no gt <=5 [facility] AND [id number] 21:45:00 Test Item Value Reference Range Interpretation Comments UA Leuk Est (test Negative (02/18/15 4:45 code = UA Leuk Est) PM) [facility] AND [id number] 21:45:00 Test Item Value Reference Range Interpretation Comments UA Sq Epi (test code = UA Sq Moderate /LPF Epi) [facility] AND [id number] 21:45:00 Test Item Value Reference Range Interpretation Comments UA Protein (test code = UA Protein) 20 mg/dL [facility] AND [id number] 21:45:00 Test Item Value Reference Range Interpretation Comments UA Turbidity (test code Slight *ABN*(02/18/15 = UA Turbidity) 4:45 PM) [facility] AND [id number] 21:45:00 Test Item Value Reference Range Interpretation Comments UA Color (test code = Yellow *NA*(02/18/15 4:45 UA Color) PM) [facility] AND [id number] 21:45:00 Test Item Value Reference Range Interpretation Comments UA Spec Grav (test code = UA Spec Grav) 1.017 [facility] AND [id number] 21:45:00 Test Item Value Reference Range Interpretation Comments UA pH (test code = UA pH) 8.0 5.0-8.0 [facility]
[2023-07-16 15:14] LABS: Hematocrit 38.2 % (36.0-45.0); MCV 88.1 fL (80-100); MPV 7.4 fL (7.6-11.3); Platelets 188 thou/uL (152-406); RBC Red Blood Cell Count 4.33 M/uL (3.86-4.86)
[2023-07-16 15:34] LABS: Troponin High Sensitivity 9.4 pg/mL (<58.9)
[2023-07-16 15:35] LABS: Potassium 4.5 mEq/L (3.5-5.1)
--- NOTE | 2023-07-16 15:59 | RAD REPORT ---
EXAM DESCRIPTION: Natanael Single View07/16/2023 3:43 pm CLINICAL HISTORY: Chest pain COMPARISON: March 2023 FINDINGS: The lungs appear grossly clear. The heart is mildly enlarged IMPRESSION: No acute abnormalities displayed
[2023-07-16] MEDS ORDERED: methocarbamoL 500 MG TAB ONE (16:36)
--- NOTE | 2023-07-16 17:41 | RAD REPORT ---
EXAM DESCRIPTION: RAD - Foot Left 2 View - 07/16/2023 5:26 pm CLINICAL HISTORY: Left Foot pain FINDINGS: Osteoporosis. No fracture or dislocation seen. Moderate plantar calcaneal spur. Vascular calcifications. No bony destructive lesion visualized
--- NOTE | 2023-07-16 18:23 | EDPHYS ---
Physician Documentation [facility] Name: Patsy Narvaez Age: 83 yrs Sex: Female : 1940 Arrival Date: 07/16/2023 Time: 14:39 Bed 5 Private MD: ED Physician Lobo Lux HPI: 07/16 18:03 This 83 yrs old Female presents to ER via EMS with complaints of Chest Pain. cp3 21:42 The patient or guardian reports chest pain that is located primarily in the substernal cp3 area. Onset: acutely, 1 hour(s) ago. The pain does not radiate. Associated signs and symptoms: The patient has no apparent associated signs or symptoms. The chest pain is described as aching. Duration: The patient or guardian reports a single episode. Severity of pain: At its worst the pain was moderate. The patient has experienced similar episodes in the past. Historical: - Allergies: 14:51 Ancef; ph 14:51 Codeine; ph 14:51 Darvocet-N 100; ph 14:51 Darvon; ph 14:51 Fentanyl; ph 14:51 Hydrocodone-Acetaminophen; ph 14:51 Percodan; ph 14:51 tramadol; ph - PMHx: 14:51 Atrial Fib; Congestive heart failure; Diabetes - IDDM; diabetes mellitus; Fibromyalgia; ph Myocardial infarction; - Immunization history:: Adult Immunizations unknown. - Social history:: Smoking status: Patient denies any tobacco usage or history of. - Family history:: not pertinent. ROS: 21:42 Constitutional: Negative for fever, chills, and weight loss, Eyes: Negative for injury, cp3 pain, redness, and discharge, ENT: Negative for injury, pain, and discharge, Neck: Negative for injury, pain, and swelling, Respiratory: Negative for shortness of breath, cough, wheezing, and pleuritic chest pain, Abdomen/GI: Negative for abdominal pain, nausea, vomiting, diarrhea, and constipation, Back: Negative for injury and pain, : Negative for injury, bleeding, discharge, and swelling, Skin: Negative for injury, rash, and discoloration, Neuro: Negative for headache, weakness, numbness, tingling, and seizure, Psych: Negative for depression, anxiety, suicide ideation, homicidal ideation, and hallucinations, Allergy/Immunology: Negative for hives, rash, and allergies, Endocrine: Negative for neck swelling, polydipsia, polyuria, polyphagia, and marked weight changes, Hematologic/Lymphatic: Negative for swollen nodes, abnormal bleeding, and unusual bruising, 21:42 Cardiovascular: Positive for chest pain, 21:42 MS/extremity: Positive for contusion, tenderness, left great toe, Exam: 21:42 Constitutional: This is a well developed, well nourished patient who is awake, alert, cp3 and in no acute distress. Head/Face: Normocephalic, atraumatic. Eyes: Pupils equal round and reactive to light, extra-ocular motions intact. Lids and lashes normal. Conjunctiva and sclera are non-icteric and not injected. Cornea within normal limits. Periorbital areas with no swelling, redness, or edema. ENT: Nares patent. No nasal discharge, no septal abnormalities noted. Tympanic membranes are normal and external auditory canals are clear. Oropharynx with no redness, swelling, or masses, exudates, or evidence of obstruction, uvula midline. Mucous membranes moist. Neck: Trachea midline, no thyromegaly or masses palpated, and no cervical lymphadenopathy. Supple, full range of motion without nuchal rigidity, or vertebral point tenderness. No Meningismus. Chest/axilla: Normal chest wall appearance and motion. Nontender with no deformity. No lesions are appreciated. Cardiovascular: Regular rate and rhythm with a normal S1 and S2. No gallops, murmurs, or rubs. Normal PMI, no JVD. No pulse deficits. Respiratory: Lungs have equal breath sounds bilaterally, clear to auscultation and percussion. No rales, rhonchi or wheezes noted. No increased work of breathing, no retractions or nasal flaring. Abdomen/GI: Soft, non-tender, with normal bowel sounds. No distension or tympany. No guarding or rebound. No evidence of tenderness throughout. Back: No spinal tenderness. No costovertebral tenderness. Full range of motion. Female : Normal external genitalia. Skin: Warm, dry with normal turgor. Normal color with no rashes, no lesions, and no evidence of cellulitis. 21:42 Musculoskeletal/extremity: tenderness to left great toe. 21:42 Skin: bilateral lower extremity edema. Vital Signs: 14:48 BP 157 / 80; Pulse 74; Resp 18; Temp 97.7; Pulse Ox 97% on R/A; Weight 174.63 kg; ph Height 5 ft. 5 in. ; 16:01 BP 136 / 75; Pulse 67; Resp 18; Pulse Ox 96% on R/A; ph 17:00 BP 140 / 65; Pulse 64; Resp 16; Pulse Ox 95% on R/A; ph 18:09 BP 135 / 59; Pulse 65; Resp 18; Pulse Ox 97% on R/A; ph 14:48 Body Mass Index 64.07 (174.63 kg, 165.1 cm) ph MDM: 14:54 Patient medically screened. cp3 21:42 Differential diagnosis: abnormal EKG, acute myocardial infarction, congestive heart cp3 failure pleurisy, stable angina, unstable angina, toe fracture. Data reviewed: vital signs, nurses notes, EMS record, lab test result(s), EKG, radiologic studies. Consideration of Admission/Observation Escalation of care including admission/observation considered. patient with resolution in symptoms and declined admission. I considered the following discharge prescriptions or medication management in the emergency department Medications were administered in the Emergency Department. See MAR. Independent interpretation of the following test(s) in the Emergency Department EKG: See my EKG interpretation above X-Ray: My interpretation is ekg interpreted by me- no evidence of acute mi, rate 66, no evidence of acute mi. Response to treatment: the patient's symptoms have markedly improved after treatment. ED course: cxr interpreted by me- no acute cardiopulmonary process. 07/16 14:56 Order name: Basic Metabolic Panel; Complete Time: 16:38 3 07/16 14:56 Order name: CBC with Diff; Complete Time: 16:38 3 07/16 14:56 Order name: Troponin HS; Complete Time: 16:38 3 07/16 16:39 Order name: Troponin High Sensitivity: at 448pm; Complete Time: 18:02 3 07/16 14:56 Order name: XRAY Chest (1 view); Complete Time: 16:38 3 07/16 16:44 Order name: Foot Left 2 View XRAY; Complete Time: 18:02 3 07/16 18:03 Interpretation: Per Radiologist's finding(s): [facility] [address] [id number] RADIOLOGY SERVICES REPORT Name: PATSY NARVAEZ Acct Number: [id number] :1940 Age:83 Sex:F Ord Phys: Lobo Lux MD Unit Number: [id number] [facility] Dr: NONE Status: REG ER ER Exam Date: 07/16/23 EXAM DESCRIPTION: RAD - Foot Left 2 View - 07/16/2023 5:26 pm CLINICAL HISTORY: Left Foot pain FINDINGS: Osteoporosis. No fracture or dislocation seen. Moderate plantar calcaneal spur. Vascular calcifications. No bony destructive lesion visualized Signed By: Jordon Ray MD Signed AT: 07/16/23 1741 . 07/16 14:56 Order name: EKG; Complete Time: 14:57 3 07/16 14:56 Order name: Cardiac monitoring; Complete Time: 15:11 3 07/16 14:56 Order name: EKG - Nurse/Tech; Complete Time: 15:11 3 07/16 14:56 Order name: IV Saline Lock; Complete Time: 15:11 3 07/16 14:56 Order name: Labs collected and sent; Complete Time: 15:10 3 07/16 14:56 Order name: O2 Per Protocol; Complete Time: 15:10 3 07/16 14:56 Order name: O2 Sat Monitoring; Complete Time: 15:10 cp3 Administered Medications: 17:54 Not Given (Patient Refused): [id number] mg PO once ph Disposition Summary: 07/16/23 18:22 Discharge Ordered Notes: Location: Home cp3 Condition: Stable cp3 Diagnosis - Chest pain, unspecified cp3 Discharge Instructions: - Discharge Summary Sheet cp3 - Nonspecific Chest Pain, Adult cp3 Forms: - Medication Reconciliation Form cp3 - Thank You Letter cp3 - Antibiotic Education cp3 - Prescription Opioid Use cp3 - Patient Portal Instructions cp3 - Leadership Thank You Letter cp3 Signatures: Dispatcher [employer] Lobo Rizvi MD MD 3 Ayala Zendejas, RN RN ph
--- NOTE | 2023-07-16 18:23 | ER ---
Nurse's Notes [facility] Name: Patsy Tai Age: 83 yrs Sex: Female : 1940 Arrival Date: 07/16/2023 Time: 14:39 Bed 5 Private MD: Diagnosis: Chest pain, unspecified Presentation: 07/16 14:48 Chief complaint: EMS states: Intermittent chest pain x 2 days, hx of cardiac stents x ph 10, also reports SOB but states that is normal for her. Swelling to bilateral lower extremities which she also states is normal, c/o wound to L great toe. VSS, BGL WNL. Coronavirus screen: Vaccine status: Patient reports being unvaccinated. Ebola Screen: No symptoms or risks identified at this time. Initial Sepsis Screen: Does the patient meet any 2 criteria? No. Patient's initial sepsis screen is negative. Does the patient have a suspected source of infection? No. Patient's initial sepsis screen is negative. Risk Assessment: Do you want to hurt yourself or someone else? Patient reports no desire to harm self or others. Onset of symptoms was July 16, 2023. 14:48 Method Of Arrival: EMS: [facility] ph 14:54 Acuity: VALERIA 3 ph Triage Assessment: 14:52 General: Appears in no apparent distress. obese, Behavior is calm, cooperative, ph appropriate for age, Denies fever, feeling ill. Pain: Complains of pain in chest. Neuro: Level of Consciousness is awake, alert, obeys commands, Oriented to person, place, time, situation. Cardiovascular: Reports chest pain, shortness of breath, Denies nausea, vomiting, Edema is 3+ to left midcalf, left ankle, left foot, right midcalf, right ankle and right foot. Respiratory: Airway is patent Respiratory effort is even, labored, Respiratory pattern is tachypnea. GI: No signs and/or symptoms were reported involving the gastrointestinal system. Derm: Skin is pink, warm \T\ dry. Historical: - Allergies: 14:51 Ancef; ph 14:51 Codeine; ph 14:51 Darvocet-N 100; ph 14:51 Darvon; ph 14:51 Fentanyl; ph 14:51 Hydrocodone-Acetaminophen; ph 14:51 Percodan; ph 14:51 tramadol; ph - PMHx: 14:51 Atrial Fib; Congestive heart failure; Diabetes - IDDM; diabetes mellitus; Fibromyalgia; ph Myocardial infarction; - Immunization history:: Adult Immunizations unknown. - Social history:: Smoking status: Patient denies any tobacco usage or history of. - Family history:: not pertinent. Screenin:53 [facility] ED Fall Risk Assessment (Adult) History of falling in the last 3 months, ph including since admission No falls in past 3 months (0 pts) Confusion or Disorientation No (0 pts) Intoxicated or Sedated No (0 pts) Impaired Gait Yes (1 pt) Mobility Assist Device Used Yes (1 pt) Altered Elimination Yes (1 pt) Score/Fall Risk Level 3 or more points = High Risk Oriented to surroundings, Maintained a safe environment, Hourly rounding (assess needs \T\ fall precautionary measures) done, Used ambulatory aids as needed (educated on \T\ assisted with). Abuse screen: Denies threats or abuse. Denies injuries from another. Nutritional screening: No deficits noted. Tuberculosis screening: No symptoms or risk factors identified. Assessment: 15:12 General: SEE TRIAGE ASSESSMENT. ph Vital Signs: 14:48 BP 157 / 80; Pulse 74; Resp 18; Temp 97.7; Pulse Ox 97% on R/A; Weight 174.63 kg; ph Height 5 ft. 5 in. ; 16:01 BP 136 / 75; Pulse 67; Resp 18; Pulse Ox 96% on R/A; ph 17:00 BP 140 / 65; Pulse 64; Resp 16; Pulse Ox 95% on R/A; ph 18:09 BP 135 / 59; Pulse 65; Resp 18; Pulse Ox 97% on R/A; ph 14:48 Body Mass Index 64.07 (174.63 kg, 165.1 cm) ph ED Course: 14:48 Patient arrived in ED. ph 14:51 Triage completed. ph 14:53 Lobo Lux MD is Attending Physician. cp3 14:53 Arm band placed on Patient placed in an exam room. ph 14:54 Patient has correct armband on for positive identification. Bed in low position. Call ph light in reach. Side rails up X 1. Client placed on continuous cardiac and pulse oximetry monitoring. NIBP monitoring applied. 14:54 Patient maintains SpO2 saturation greater than 95% on room air. ph 14:57 Ayala Zendejas, RN is Primary Nurse. ph 15:11 Basic Metabolic Panel Sent. ph 15:11 CBC with Diff Sent. ph 15:11 Troponin HS Sent. ph 15:12 Maintain EMS IV. Dressing intact. Good blood return noted. Site clean \T\ dry. Gauge \T\ ph site: 20 LAC. 15:45 XRAY Chest (1 view) In Process Unspecified. EDMS 16:02 No provider procedures requiring assistance completed. ph 17:28 Foot Left 2 View XRAY In Process Unspecified. EDMS 18:53 IV discontinued, intact, bleeding controlled, No redness/swelling at site. Pressure ph dressing applied. Administered Medications: 17:54 Not Given (Patient Refused): [id number] mg PO once ph Medication: 14:54 VIS not applicable for this client. ph Outcome: 18:22 Discharge ordered by . jud3 18:53 Discharged to home via wheelchair, with family, ph 18:53 Condition: good 18:53 Discharge instructions given to patient, family, Instructed on discharge instructions, follow up and referral plans. Demonstrated understanding of instructions, follow-up care, 18:53 Patient left the ED. ph Signatures: Dispatcher [employer] Lobo Rizvi MD MD cp3 Ayala Zendejas, RN RN ph Corrections: (The following items were deleted from the chart) 14:55 14:48 Acuity: VALERIA 2 ph ph
[2023-07-16 19:04] VITALS: TEMP 97.7
[2023-07-16 19:06] VITALS: BP 135/59; O2SAT 97
== END 2023-07-16 18:53 | disposition home or self-care (01) ==
LOC: ER 14:39
DX: R07.89 Other chest pain (principal); I50.9 Heart failure, unspecified; I48.91 Unspecified atrial fibrillation; I25.2 Old myocardial infarction; Z95.818 Presence of other cardiac implants and grafts; Z88.1 Allergy status to other antibiotic agents; Z88.5 Allergy status to narcotic agent
CPT/HCPCS: 36415; 71045; 80048; 84484; 85025; 93005; 99284

== ENCOUNTER 2023-08-27 08:47 | Emergency (ER) | payer OTHER ==
[2023-08-27 09:38] LABS: Specific Gravity 1.018 (1.005-1.030); Urine Bacteria None Seen /HPF (<20); Urine Bilirubin NEGATIVE (Negative); Urine Blood Negative (Negative); Urine Clarity Turbid (Clear); Urine Color Light-Yellow (Yellow); Urine Glucose NEGATIVE (Negative); Urine Protein NEGATIVE (Negative); Urine RBC None Seen /HPF (None Seen); Urine Urobilinogen 1+ (Normal); Urine pH 6.5 (5.0-7.0)
--- NOTE | 2023-08-27 09:45 | RAD REPORT ---
EXAM DESCRIPTION: RAD - Chest Single View - 08/27/2023 9:36 am CLINICAL HISTORY: hypoglycemia Chest pain. COMPARISON: Chest Single View dated 07/16/2023; Chest Single View dated 03/16/2023; Chest Single View d ated 01/27/2023 FINDINGS: Portable technique limits examination quality. Moderate bilateral pulmonary opacities are present likely representing pulmonary edema. The heart is significantly enlarged. No displaced fractures. IMPRESSION: Moderate CHF versus volume overload.
[2023-08-27 09:56] LABS: Hematocrit 41.2 % (36.0-45.0); Lymphocytes % 17.1 % (15.3-44.8); MPV 7.3 fL (7.6-11.3); Platelets 187 thou/uL (152-406); RBC Red Blood Cell Count 4.63 M/uL (3.86-4.86)
[2023-08-27 10:21] LABS: Albumin 3.4 g/dL (3.4-5.0); Bilirubin Direct 0.2 mg/dL (0-0.2); Bilirubin Indirect, Calculated 0.4 mg/dL (0.2-0.8); Bilirubin Total 0.6 mg/dL (0.2-1.0); Magnesium 1.8 mg/dL (1.6-2.4); Potassium 4.1 mEq/L (3.5-5.1); Protein, Total 7.3 g/dL (6.4-8.2); Troponin High Sensitivity 9.5 pg/mL (<58.9)
--- NOTE | 2023-08-27 10:46 | EDPHYS ---
Physician Documentation [facility] Name: Patys Tai Age: 83 yrs Sex: Female : 1940 Arrival Date: 08/27/2023 Time: 08:47 Bed 14 Private MD: ED Physician Michele Lopez HPI: 08/27 10:02 This 83 yrs old Female presents to ER via EMS with complaints of Low Blood Sugar. rt 10:02 Patient presents to the ED with low blood sugars down to 53. This was noted on her rt Dexcom starting overnight. Patient did drink juice, eat fries and states that did not significantly improve. She states that she feels weak. Does report pain to her right arm which she does not believe is related. Denies other acute complaints, symptoms are moderate in severity, no other aggravating alleviating factors.. Historical: - Allergies: 08:50 Ancef; ld1 08:50 Codeine; ld1 08:50 Darvocet-N 100; ld1 08:50 Darvon; ld1 08:50 Fentanyl; ld1 08:50 Hydrocodone-Acetaminophen; ld1 08:50 Percodan; ld1 08:50 tramadol; ld1 - PMHx: 08:50 Atrial Fib; Congestive heart failure; Diabetes - IDDM; diabetes mellitus; Fibromyalgia; ld1 Myocardial infarction; - Immunization history:: Adult Immunizations up to date. - Social history:: Smoking status: Patient denies any tobacco usage or history of. Patient/guardian denies using alcohol. - Family history:: not pertinent. ROS: 10:02 Constitutional: Negative for fever, chills, and weight loss, Cardiovascular: Negative rt for chest pain, palpitations, and edema, Respiratory: Negative for shortness of breath, cough, wheezing, and pleuritic chest pain, Abdomen/GI: Negative for abdominal pain, nausea, vomiting, diarrhea, and constipation, Skin: Negative for injury, rash, and discoloration, Neuro: Negative for headache, weakness, numbness, tingling, and seizure, Exam: 10:02 Constitutional: This is a well developed, well nourished patient who is awake, alert, rt and in no acute distress. Head/Face: Normocephalic, atraumatic. Chest/axilla: Normal chest wall appearance and motion. Nontender with no deformity. No lesions are appreciated. Cardiovascular: Regular rate and rhythm with a normal S1 and S2. No gallops, murmurs, or rubs. Normal PMI, no JVD. No pulse deficits. Respiratory: Lungs have equal breath sounds bilaterally, clear to auscultation and percussion. No rales, rhonchi or wheezes noted. No increased work of breathing, no retractions or nasal flaring. Abdomen/GI: Soft, non-tender, with normal bowel sounds. No distension or tympany. No guarding or rebound. No evidence of tenderness throughout. Skin: Warm, dry with normal turgor. Normal color with no rashes, no lesions, and no evidence of cellulitis. MS/ Extremity: Pulses equal, no cyanosis. Neurovascular intact. Full, normal range of motion. Neuro: Awake and alert, GCS 15, oriented to person, place, time, and situation. Cranial nerves II-XII grossly intact. Motor strength 5/5 in all extremities. Sensory grossly intact. Cerebellar exam normal. Normal gait. Psych: Awake, alert, with orientation to person, place and time. Behavior, mood, and affect are within normal limits. 10:02 ECG was reviewed by the Attending Physician. Vital Signs: 09:07 BP 138 / 62; Pulse 75; Resp 18; Temp 98.1(TE); Pulse Ox 97% on R/A; Weight 167.83 kg; ld1 Height 5 ft. 5 in. ; Pain 0/10; 09:49 Pulse 74; Resp 18; Pulse Ox 96% on R/A; ld1 11:04 BP 136 / 72; Pulse 71; Resp 18; Pulse Ox 98% on R/A; ld1 09:07 Body Mass Index 61.57 (167.83 kg, 165.1 cm) ld1 09:07 Pain Scale: Adult ld1 MDM: 08:55 Patient medically screened. rt 14:57 Differential diagnosis: Hypoglycemia, infection, ACS. Data reviewed: vital signs, rt nurses notes, lab test result(s), EKG, radiologic studies. Consideration of Admission/Observation Escalation of care including admission/observation considered. Patient is maintaining her blood sugar, labs are benign, stable for outpatient care. X-ray with mild CHF noted, she is not hypoxic. Offered the patient diuretics, she states that she does not wish to be started on a diuretic, instructed to follow-up as an outpatient.. Independent interpretation of the following test(s) in the Emergency Department X-Ray: My interpretation is Mild edema seen on interpretation of x-ray images. Care significantly affected by the following chronic conditions: Diabetes. Counseling: I had a detailed discussion with the patient and/or guardian regarding the historical points, exam findings, and any diagnostic results supporting the discharge/admit diagnosis, lab results, radiology results, to return to the emergency department if symptoms worsen or persist or if there are any questions or concerns that arise at home. Response to treatment: the patient's symptoms have markedly improved after treatment. 08/27 09:09 Order name: Basic Metabolic Panel; Complete Time: 10:29 rt 08/27 09:09 Order name: CBC with Diff; Complete Time: 10:29 rt 08/27 09:09 Order name: LFT's; Complete Time: 10:29 rt 08/27 09:09 Order name: Magnesium; Complete Time: 10:29 rt 08/27 09:09 Order name: Troponin HS; Complete Time: 10:29 rt 08/27 09:09 Order name: UAM; Complete Time: 09:47 rt 08/27 09:17 Order name: Glucose, Ancillary Testing; Complete Time: 09:47 EDMS 08/27 09:47 Order name: BNP; Complete Time: 10:29 rt 08/27 09:09 Order name: XRAY Chest (1 view); Complete Time: 09:47 rt 08/27 09:09 Order name: EKG; Complete Time: 09:10 rt 08/27 09:09 Order name: Cardiac monitoring; Complete Time: 09:11 rt 08/27 09:09 Order name: EKG - Nurse/Tech; Complete Time: 09:57 rt 08/27 09:09 Order name: IV Saline Lock; Complete Time: 09:47 rt 08/27 09:09 Order name: Labs collected and sent; Complete Time: 09:47 rt 08/27 09:09 Order name: O2 Per Protocol; Complete Time: 09:11 rt 08/27 09:09 Order name: O2 Sat Monitoring; Complete Time: 09:11 rt EC:02 Rate is 67 beats/min. Rhythm is regular, 1st Degree Block with PACs. Left axis rt deviation noted. TX interval is prolonged at 240 msec. QRS interval is normal. QT interval is normal. No Q waves. Administered Medications: No medications were administered Disposition Summary: 08/27/23 10:46 Discharge Ordered Notes: Location: Home rt Problem: new rt Symptoms: have improved rt Condition: Stable rt Diagnosis - Hypoglycemia, unspecified rt Followup: rt - With: Private Physician - When: 2 - 3 days - Reason: Discharge Instructions: - Discharge Summary Sheet rt - Hypoglycemia rt Forms: - Medication Reconciliation Form rt - Thank You Letter rt - Antibiotic Education rt - Prescription Opioid Use rt - Patient Portal Instructions rt - Leadership Thank You Letter rt Signatures: Dispatcher [employer] Nena Stark RN RN ld1 Michele Lopez MD MD rt
--- NOTE | 2023-08-27 10:46 | ER ---
Nurse's Notes [facility] Name: Patsy Tai Age: 83 yrs Sex: Female : 1940 Arrival Date: 08/27/2023 Time: 08:47 Bed 14 Private MD: Diagnosis: Hypoglycemia, unspecified Presentation: 08/27 08:49 Chief complaint: EMS states: toned out to patient home for low blood sugar. Upon ld1 arrival to ER EMS reports BGL of 66. Coronavirus screen: At this time, the client does not indicate any symptoms associated with coronavirus-19. Ebola Screen: No symptoms or risks identified at this time. Risk Assessment: Do you want to hurt yourself or someone else? Patient reports no desire to harm self or others. Onset of symptoms was August 27, 2023. 08:49 Method Of Arrival: EMS: [facility] ld1 08:49 Acuity: VALERIA 3 ld1 09:48 Initial Sepsis Screen: Does the patient meet any 2 criteria? No. Patient's initial ld1 sepsis screen is negative. Does the patient have a suspected source of infection? No. Patient's initial sepsis screen is negative. Triage Assessment: 08:50 General: Appears in no apparent distress. comfortable, Behavior is calm, cooperative, ld1 appropriate for age. Pain: Denies pain. EENT: No signs and/or symptoms were reported regarding the EENT system. Neuro: Level of Consciousness is awake, alert, obeys commands, Oriented to person, place, time, situation. Cardiovascular: Capillary refill < 3 seconds Patient's skin is warm and dry. Respiratory: Airway is patent Respiratory effort is even, unlabored. GI: Abdomen is round obese. : No signs and/or symptoms were reported regarding the genitourinary system. Derm: No signs and/or symptoms reported regarding the dermatologic system. Musculoskeletal: No signs and/or symptoms reported regarding the musculoskeletal system. Historical: - Allergies: 08:50 Ancef; ld1 08:50 Codeine; ld1 08:50 Darvocet-N 100; ld1 08:50 Darvon; ld1 08:50 Fentanyl; ld1 08:50 Hydrocodone-Acetaminophen; ld1 08:50 Percodan; ld1 08:50 tramadol; ld1 - PMHx: 08:50 Atrial Fib; Congestive heart failure; Diabetes - IDDM; diabetes mellitus; Fibromyalgia; ld1 Myocardial infarction; - Immunization history:: Adult Immunizations up to date. - Social history:: Smoking status: Patient denies any tobacco usage or history of. Patient/guardian denies using alcohol. - Family history:: not pertinent. Screenin:08 [facility] ED Fall Risk Assessment (Adult) History of falling in the last 3 months, ld1 including since admission No falls in past 3 months (0 pts). Abuse screen: Denies threats or abuse. Denies injuries from another. Nutritional screening: No deficits noted. Tuberculosis screening: No symptoms or risk factors identified. Assessment: 09:08 Reassessment: See triage assessment. ERP at bedside with patient. BGL 86. ld1 Vital Signs: 09:07 BP 138 / 62; Pulse 75; Resp 18; Temp 98.1(TE); Pulse Ox 97% on R/A; Weight 167.83 kg; ld1 Height 5 ft. 5 in. ; Pain 0/10; 09:49 Pulse 74; Resp 18; Pulse Ox 96% on R/A; ld1 11:04 BP 136 / 72; Pulse 71; Resp 18; Pulse Ox 98% on R/A; ld1 09:07 Body Mass Index 61.57 (167.83 kg, 165.1 cm) ld1 09:07 Pain Scale: Adult ld1 ED Course: 08:49 Patient arrived in ED. ld1 08:50 Triage completed. ld1 08:50 Arm band placed on right wrist. ld1 08:52 Michele Lopez MD is Attending Physician. rt 09:07 Nena Jimenez, SHILOH is Primary Nurse. ld1 09:08 Patient has correct armband on for positive identification. Placed in gown. Bed in low ld1 position. Call light in reach. Side rails up X2. Pulse ox on. NIBP on. Door closed. Noise minimized. Warm blanket given. 09:08 No provider procedures requiring assistance completed. ld1 09:38 XRAY Chest (1 view) In Process Unspecified. EDMS 09:48 Inserted saline lock: 20 gauge in left antecubital area, using aseptic technique. Blood ld1 collected. Missed attempt(s): 20 gauge in left forearm. 09:57 EKG done, by ED staff. aw1 11:05 IV discontinued, intact, bleeding controlled, No redness/swelling at site. ld1 Administered Medications: No medications were administered Medication: 09:08 VIS not applicable for this client. ld1 Outcome: 10:46 Discharge ordered by . rt 11:04 Discharged to home via wheelchair, with family, ld1 11:04 Condition: stable 11:04 Discharge instructions given to patient, family, Instructed on discharge instructions, follow up and referral plans. Demonstrated understanding of instructions, follow-up care, 11:05 Patient left the ED. ld1 Signatures: Dispatcher [employer] EDMS Nena Jimenez, RN RN ld1 Michele Lopez MD MD rt Luz King aw1
[2023-08-27 11:22] VITALS: TEMP 98.1
[2023-08-27 11:32] VITALS: BP 136/72; O2SAT 98
--- NOTE | 2023-08-30 12:34 | EKG ---
Test Date: 2023-08-27 Test Time: 09:54:13 [employer] Superintendent: SHARON MEASUREMENT RESULTS: Intervals: Rate: 67 MA: 240 QRSD: 84 QT: 406 QTc: 429 Widen: P: 24 MA: 240 QRS: -41 T: 93 INTERPRETIVE STATEMENTS: Sinus rhythm with 1st degree AV block with premature atrial complexes Left axis deviation Low voltage QRS Possible Anterolateral infarct, age undetermined Abnormal ECG Compared to ECG 07/16/2023 15:11:14 Atrial premature complex(es) now present Myocardial infarct finding still present Electronically Signed On 08-30-23 12:27:48 [employer]OL[employer]CH by Madhu Shaw
== END 2023-08-27 11:05 | disposition home or self-care (01) ==
LOC: ER 08:47
DX: E11.649 Type 2 diabetes mellitus with hypoglycemia without coma (principal); I50.9 Heart failure, unspecified; I10 Essential (primary) hypertension; Z88.1 Allergy status to other antibiotic agents; Z88.5 Allergy status to narcotic agent
CPT/HCPCS: 36415; 71045; 80048; 80076; 81001; 82947; 83735; 83880; 84484; 85025; 93005; 99284

== ENCOUNTER 2024-05-29 22:46 | Inpatient (IN) | payer OTHER ==
[2024-05-30] MEDS ORDERED: NA CHLORIDE 0.9% 1,000 ML ONE (00:19)
[2024-05-30] MEDS ORDERED: MORPHINE 2 MG/ML SYR ONE (00:19)
[2024-05-30] MEDS ORDERED: IBUPROFEN 400 MG TAB ONE (00:19)
[2024-05-30] MEDS ORDERED: ONDANSETRON 4 MG/2 ML VIAL ONE (00:19)
[2024-05-30 00:34] LABS: Absolute Lymphocytes (CBC) 0.4 K/uL (0.7-4.9); Absolute Monocytes 0.6 K/uL (0.1-1.3); Absolute Neutrophil 1.9 K/uL (1.8-8.0); Basophils % 0.8 % (0-1.3); Eosinophils % 0.2 % (0-4.4); Hematocrit 39.9 % (36.0-45.0); Hemoglobin 13.4 g/dL (12.0-15.0); Lymphocytes % 13.5 % (15.3-44.8); MCH 30.2 pg (27.0-35.0); MCHC 33.4 g/dL (32.0-36.0); MCV 90.3 fL (80-100); Monocytes % 19.9 % (3.3-12.3); Neutrophils % 65.6 % (41.7-73.7); Platelets 129 thou/uL (152-406); RBC Red Blood Cell Count 4.42 M/uL (3.86-4.86); Red Cell Distribution Width 14.1 % (12.1-15.2)
[2024-05-30 00:39] LABS: PT Prothrombin Time 11.9 SECONDS (9.4-12.5); PTT, Activated Partial Thromb 26.5 SECONDS (24.3-36.9); Protime INR 1.06
[2024-05-30 00:48] LABS: Albumin/Globulin Ratio 0.8 (1.1-1.8); Bilirubin Total 0.7 mg/dL (0.2-1.0); Troponin High Sensitivity 13.2 pg/mL (<58.9)
[2024-05-30 00:58] LABS: SARS-CoV-2 Antigen CONTROL BLUE LINE VIS/BG OK
[2024-05-30 00:59] LABS: SARS-CoV-2 Antigen Rapid Res Positive (Negative)
[2024-05-30 01:02] LABS: Band Neutrophils 30 % (0-1); Differential Total Cells Count 100; Lymphocytes 10 % (15-42); Monocytes 8 % (0-10); Reactive Lymphocytes 8 %; Segmented Neutrophils 43 % (40-80)
[2024-05-30 01:03] LABS: Blood Morphology Comment NOT SEEN (NOT SEEN); Platelet Estimate ADEQ
[2024-05-30] MEDS ORDERED: VANCOMYCIN 1 GM/VIAL ONE (01:57)
[2024-05-30] MEDS ORDERED: CEFTRIAXONE 1000 MG/VIAL ONE (01:57)
[2024-05-30] MEDS ORDERED: NA CHLORIDE 0.9% 500 ML ONE (01:58)
[2024-05-30] MEDS ORDERED: NA CHLORIDE 0.9% 0 ML ONE (01:58)
[2024-05-30 02:16] LABS: Specific Gravity >= 1.030 (1.005-1.030); Urine Bilirubin 1+ (Negative); Urine Blood 1+ (Negative); Urine Clarity Clear (Clear); Urine Color Yellow (Yellow); Urine Glucose Negative (Negative); Urine Ketones 2+ (Negative); Urine Nitrite Positive (Negative); Urine Protein Negative (Negative); Urine Urobilinogen 0.2 mg/dL (0.2-1.0); Urine pH 5.5 (5.0-7.0)
[2024-05-30 02:19] LABS: Renal Epithelial <5 /HPF (None Seen); Urine Bacteria <20 /HPF (<20); Urine Culture Reflex Order NOT NEEDED; Urine Microscopic Reflex YN ORDER UMIC; Urine RBC <5 /HPF (None Seen)
--- NOTE | 2024-05-30 02:46 | EDPHYS ---
Physician Documentation [facility] Name: Patsy Tai Age: 84 yrs Sex: Female : 1940 Arrival Date: 05/29/2024 Time: 22:46 Bed 13 Private MD: ED Physician Cosme Gross HPI: 05/29 22:51 This 84 yrs old Female presents to ER via Unassigned with complaints of sp4 complaint . 05/30 22:20 Patient is 84-year-old female with history of multiple medical problems presents with sp4 complaint of acute generalized weakness fever chills nausea and feeling unwell overall. Patient had positive COVID test at home today. Historical: - Allergies: 05/29 22:48 Ancef; ss 22:48 Codeine; ss 22:48 Darvon; ss 22:48 Fentanyl; ss 22:48 Hydrocodone-Acetaminophen; ss 22:48 Darvocet-N 100; ss 22:48 Percodan; ss 22:48 tramadol; ss - PMHx: 22:48 Atrial Fib; Congestive heart failure; Diabetes - IDDM; diabetes mellitus; Fibromyalgia; ss Myocardial infarction; - PSHx: 22:48 None; ss - Immunization history:: Client reports having NOT received the Covid vaccine. - Infectious Disease History:: Denies. - Social history:: Smoking status: Patient denies any tobacco usage or history of. - Family history:: not pertinent. ROS: 05/30 22:20 Constitutional: positive for fever, chills, generalized weakness, today for nausea, sp4 positive for feeling unwell All other systems are negative, Exam: 22:20 Constitutional: This is a well developed, well nourished patient who is awake, alert, sp4 and is morbidly obese female who is febrile on arrival, signs of moderate physical debility and poor mobility. Chronic appearing bilateral lower extremity edema with lymphedema Head/Face: Normocephalic, atraumatic. Eyes: Pupils equal round and reactive to light, extra-ocular motions intact. Lids and lashes normal. Conjunctiva and sclera are not injected. Cornea within normal limits. Periorbital areas with no swelling, redness, or edema. ENT: Nares patent. No nasal discharge, no septal abnormalities noted. Tympanic membranes are normal and external auditory canals are clear. Oropharynx with no redness, swelling, or masses, exudates, or evidence of obstruction, uvula midline. Mucous membranes moist. Neck: Trachea midline, no thyromegaly or masses palpated, and no cervical lymphadenopathy. Supple, full range of motion without nuchal rigidity, or vertebral point tenderness. Chest/axilla: Normal chest wall appearance and motion. Nontender with no deformity. No lesions are appreciated. Cardiovascular: Regular rate and rhythm with a normal S1 and S2. No gallops, murmurs, or rubs. Normal PMI, no JVD. No pulse deficits. Respiratory: Lungs have equal breath sounds bilaterally, clear to auscultation and percussion. No rales, rhonchi or wheezes noted. No increased work of breathing, no retractions or nasal flaring. Abdomen/GI: Soft, with normal bowel sounds. No distension or tympany. No guarding or rebound. No evidence of tenderness throughout. Back: No spinal tenderness. No costovertebral tenderness. Skin: Warm, dry with normal turgor. Normal color with no rashes, no lesions, and no evidence of cellulitis. MS/ Extremity: Pulses equal, no cyanosis. Neurovascular intact. Full, normal range of motion. Neuro: Awake and alert, GCS 15, oriented to person, place, time, and situation. Cranial nerves II-XII grossly intact. Motor strength 5/5 in all extremities. Sensory grossly intact. Psych: Awake, alert, with orientation to person, place and time. Behavior, mood, and affect are within normal limits 22:20 ECG was reviewed by the Attending Physician. EKG - 88 bmp NSR Vital Signs: 05/29 22:50 BP 172 / 75; Pulse 82; Resp 14; Temp 98.8(O); Pulse Ox 90% on R/A; Weight 167.83 kg; vc1 Height 5 ft. 2 in. ; Pain 5/10; 05/30 00:46 Pulse 67; Resp 17; Pulse Ox 97% ; ss 00:49 BP 148 / 86; ss 02:00 BP 138 / 66; Pulse 59; Resp 16; Pulse Ox 97% on 2.5 lpm NC; vc1 04:00 BP 122 / 63; Pulse 67; Resp 14; Pulse Ox 98% on 2.5 lpm NC; vc1 05:00 BP 139 / 52; Pulse 63; Resp 16; Pulse Ox 96% on 2.5 lpm NC; vc1 05/29 22:50 Body Mass Index 67.67 (167.83 kg, 157.48 cm) vc1 05/29 22:50 Pain Scale: Adult vc1 MDM: 05/29 22:59 Patient medically screened. [facility] 05/30 02:37 ED course: EXAM: XR Chest, 1 View CLINICAL HISTORY: The patient is 84 years old and is sp4 Female; CHEST PAIN TECHNIQUE: Frontal view of the chest. COMPARISON: No relevant prior studies available. FINDINGS: Lungs: Mildly prominent interstitial markings. No consolidation. Pleural space: Unremarkable. No pneumothorax. Heart: Unremarkable. Mediastinum: Unremarkable. Normal mediastinal contour. Bones/joints: No acute findings. IMPRESSION: Mildly prominent interstitial markings. No consolidation. . 22:20 Differential Diagnosis altered mental status, sepsis, flu. Data reviewed: vital signs, [facility] nurses notes, lab test result(s), EKG, radiologic studies, plain films. Consideration of Admission/Observation Patient was admitted/placed on observation. Escalation of care including admission/observation considered. Management of patient was discussed with the following: Hospitalist: Danielito CAST . 05/29 22:58 Order name: Blood Culture Adult (2) [facility] 05/29 22:58 Order name: CBC with Diff; Complete Time: 02:36 [facility] 05/29 22:58 Order name: CMP; Complete Time: 02:36 [facility] 05/29 22:58 Order name: Lactate w/ 2H reflex if indic.; Complete Time: 02:36 [facility] 05/29 22:58 Order name: Protime (+inr); Complete Time: 02:36 [facility] 05/29 22:58 Order name: Ptt, Activated; Complete Time: 02:36 [facility] 05/29 22:58 Order name: BNP; Complete Time: 02:36 [facility] 05/29 22:58 Order name: Troponin High Sensitivity; Complete Time: 02:36 [facility] 05/29 22:59 Order name: Influenza Screen (a \T\ B); Complete Time: 02:36 [facility] 05/29 22:59 Order name: SARS RAPID; Complete Time: 02:36 [facility] 05/30 00:41 Order name: Manual Differential; Complete Time: 02:36 EDMS 05/30 02:17 Order name: Urinalysis w/ reflexes; Complete Time: 02:36 EDMS 05/30 03:52 Order name: Urinalysis w/ reflexes EDMS 05/30 03:52 Order name: CBC with Automated Diff EDMS 05/30 03:52 Order name: CBC with Automated Diff EDMS 05/30 03:52 Order name: Comprehensive Metabolic Panel EDMS 05/30 03:52 Order name: Comprehensive Metabolic Panel EDMS 05/30 04:21 Order name: Glucose, Ancillary Testing; Complete Time: 22:25 EDMS 05/30 07:21 Order name: Glucose, Ancillary Testing; Complete Time: 22:25 EDMS 05/29 22:58 Order name: Chest Single View XRAY; Complete Time: 22:25 sp4 05/29 22:58 Order name: EKG; Complete Time: 22:59 sp4 05/29 22:58 Order name: Accucheck; Complete Time: 00:48 sp4 05/29 22:58 Order name: Cardiac monitoring; Complete Time: 00:48 sp4 05/29 22:58 Order name: Cath; Complete Time: 02:20 sp4 05/29 22:58 Order name: EKG - Nurse/Tech; Complete Time: 00:48 sp4 05/29 22:58 Order name: IV Saline Lock - Large Bore; Complete Time: 00:48 sp4 05/29 22:58 Order name: Labs collected and sent; Complete Time: 00:48 sp4 05/29 22:58 Order name: O2 Per Protocol; Complete Time: 00:49 sp4 05/29 22:58 Order name: O2 Sat Monitoring; Complete Time: 00:48 sp4 05/29 22:58 Order name: Vital Signs; Complete Time: 00:48 sp4 EC:20 Rate is 88 beats/min. Rhythm is regular, Normal Sinus Rhythm. QRS [place] is Normal. [place] sp4 interval is normal. QRS interval is normal. QT interval is normal. No Q waves. T waves are Normal. No ST changes noted. Clinical impression: No evidence of ischemia. Interpreted by me. Reviewed by me. Administered Medications: 00:47 Drug: morphine IVP or IV 2 mg IVP once over 4 mins Route: IVP; Infused Over: 4 mins; ss Site: right antecubital; 01:15 Follow up: Response: No adverse reaction; No change in condition vc1 00:48 Drug: Ibuprofen PO 800 mg PO once Route: PO; ss 01:15 Follow up: Response: No adverse reaction; No change in condition vc1 00:48 Drug: NS 0.9% IV 1000 ml IV at 125 ml/hr continuous Route: IV; Rate: 125 ml/hr; Site: ss right antecubital; 06:41 Follow up: IV Status: Infusion continued upon admission vc1 00:48 Drug: Ondansetron IVP 4 mg IVP once; over 2 minutes Route: IVP; Site: right antecubital;ss 01:15 Follow up: Response: No adverse reaction; No change in condition vc1 02:19 Drug: Rocephin - Rocephin (cefTRIAXone) IVPB 1 grams IVPB once over 30 mins; (mix in 50 vc1 mL NS) Route: IVPB; Infused Over: 30 mins; Site: right antecubital; 02:49 Follow up: IV Status: Completed infusion; IV Intake: 50ml vc1 03:22 Drug: vancoMYCIN IVPB 2 grams IVPB at calculated rate once Route: IVPB; Rate: vc1 calculated rate; Site: right antecubital; 05:20 Follow up: IV Status: Completed infusion; IV Intake: 500ml vc1 Point of Care Testing: Blood Glucose: 00:46 Blood Glucose: 216 mg/dL; ss 00:46 has monitor, used pt reading ss Ranges: Critical Glucose Levels:Adult <50 mg/dl or >400 mg/dl <40 mg/dl or >180 mg/dl Disposition Summary: 05/30/24 02:46 Hospitalization Ordered Notes: Hospitalization Status: Observation sp4 Provider: Al Esteves spAlexsandra Condition: Stable sp4 Problem: new sp4 Symptoms: have improved sp4 Bed/Room Type: Standard sp4 Location: Telemetry/MedSurg (observation)(05/30/24 13:55) ja1 Room Assignment: [facility](05/30/24 13:55) [facility] Diagnosis - Acute COVID-19, generalized weakness, moderate dehydration, hypoxemia sp4 Forms: - Medication Reconciliation Form sp4 - SBAR form sp4 - Leadership Thank You Letter sp4 Signatures: Dispatcher [employer] EDHazel Bar Shelby, RN RN Nasima Hernandez RN RN Praveen Nguyen RN RN ja1 Janee Bourgeois, RN RN vc1 Cosme Gross MD MD sp4 Corrections: (The following items were deleted from the chart) 02:22 05/29 22:59 Urinalysis+U.LAB.BRZ ordered. EDMS EDMS 05/30 02:53 02:46 Telemetry/MedSurg (observation) sp4 cg 02:53 02:46 sp4 cg 02:56 02:53 cg cg 12:37 02:53 [facility] ER HOLD cg bd 12:37 02:56 ERHOLD- cg bd 13:05 12:37 Telemetry/MedSurg (observation) bd bd 13:05 12:37 403 bd bd 13:55 13:05 [facility] ER HOLD bd ja1 13:55 13:05 ERHOLD- bd ja1
--- NOTE | 2024-05-30 02:46 | ER ---
Nurse's Notes [facility] Name: Patsy Tai Age: 84 yrs Sex: Female : 1940 Arrival Date: 05/29/2024 Time: 22:46 Bed 13 Private MD: Diagnosis: Acute COVID-19, generalized weakness, moderate dehydration, hypoxemia Presentation: 05/29 22:50 Chief complaint: EMS states: toned out for nausea and fever. Took home covid test today vc1 and tested positive. 22:50 Coronavirus screen: Vaccine status: Patient reports being unvaccinated. Client denies vc1 travel out of the [place] in the last 14 days. chills, cough unrelated to allergies, difficulty breathing, fatigue, fever, headache, muscle pain, nausea, shortness of breath, sore throat, Client presents with at least one sign or symptom that may indicate coronavirus-19. Standard/surgical mask placed on the client. Provider contacted for isolation considerations. Ebola Screen: Patient negative for fever greater than or equal to 101.5 degrees Fahrenheit, and additional compatible Ebola Virus Disease symptoms Patient denies exposure to infectious person. Patient denies travel to an Ebola-affected area in the 21 days before illness onset. No symptoms or risks identified at this time. Initial Sepsis Screen: Does the patient meet any 2 criteria? No. Patient's initial sepsis screen is negative. Does the patient have a suspected source of infection? No. Patient's initial sepsis screen is negative. Risk Assessment: Do you want to hurt yourself or someone else? Patient reports no desire to harm self or others. Onset of symptoms is unknown. Care prior to arrival: Medication(s) given: zofran 4 mg, 1G ofirmev IV initiated. 18 GA, in the left antecubital area. Activity prior to arrival: None. Mechanism of Injury: No Mechanism of Injury. Transition of care: patient was not received from another setting of care. 22:50 Method Of Arrival: [facility] [place]1 22:50 Acuity: VALERIA 3 vc1 Triage Assessment: 23:00 General: Appears distressed, uncomfortable, obese, unkempt, Behavior is cooperative, vc1 fussy. General: Reports chills for fever for feeling ill for fatigue for. Pain: Complains of pain in head and neck Pain does not radiate. Pain currently is 5 out of 10 on a pain scale. EENT: No deficits noted. No signs and/or symptoms were reported regarding the EENT system. Reports pain when swallowing. Neuro: Level of Consciousness is awake, alert, obeys commands, Oriented to person, place, time, situation, Appropriate for age Reports headache. Cardiovascular: Heart tones S1 S2 Capillary refill < 3 seconds Patient's skin is warm and dry. Rhythm is regular. Respiratory: Reports shortness of breath at rest labored breathing Airway is patent Respiratory effort is even, unlabored, Respiratory pattern is regular, symmetrical, Breath sounds are diminished bilaterally. the patient has moderate shortness of breath. GI: Abdomen is round non-distended, obese, Bowel sounds present X 4 quads. Abd is non tender. : No deficits noted. No signs and/or symptoms were reported regarding the genitourinary system. Derm: Skin is moist, Skin is pink, Skin temperature is warm. Musculoskeletal: Swelling present in right foot, left foot, right leg and left leg. Historical: - Allergies: 22:48 Ancef; ss 22:48 Codeine; ss 22:48 Darvon; ss 22:48 Fentanyl; ss 22:48 Hydrocodone-Acetaminophen; ss 22:48 Darvocet-N 100; ss 22:48 Percodan; ss 22:48 tramadol; ss - PMHx: 22:48 Atrial Fib; Congestive heart failure; Diabetes - IDDM; diabetes mellitus; Fibromyalgia; ss Myocardial infarction; - PSHx: 22:48 None; ss - Immunization history:: Client reports having NOT received the Covid vaccine. - Infectious Disease History:: Denies. - Social history:: Smoking status: Patient denies any tobacco usage or history of. - Family history:: not pertinent. Screenin/17 00:44 Abuse screen: Denies threats or abuse. Nutritional screening: No deficits noted. ss Tuberculosis screening: No symptoms or risk factors identified. 00:44 [facility] ED Fall Risk Assessment (Adult) History of falling in the last 3 months, vc1 including since admission No falls in past 3 months (0 pts) Confusion or Disorientation No (0 pts) Intoxicated or Sedated No (0 pts) Impaired Gait Yes (1 pt) Mobility Assist Device Used Yes (1 pt) Altered Elimination Yes (1 pt) Score/Fall Risk Level 3 or more points = High Risk Oriented to surroundings, Maintained a safe environment, Educated pt \\T\\ family on fall prevention, incl call for assistance when getting out of bed, Offered frequent toileting (1:1 observation), Utilized family, sitter, or virtual static balancer as indicated. Assessment: 01:00 Reassessment: Patient appears in no apparent distress at this time. No changes from vc1 previously documented assessment. Patient and/or family updated on plan of care and expected duration. Pain level reassessed. Patient is alert, oriented x 3, equal unlabored respirations, skin warm/dry/pink. 02:00 Reassessment: Patient appears in no apparent distress at this time. No changes from vc1 previously documented assessment. Patient and/or family updated on plan of care and expected duration. Pain level reassessed. Patient is alert, oriented x 3, equal unlabored respirations, skin warm/dry/pink. 03:00 Reassessment: Patient appears in no apparent distress at this time. No changes from vc1 previously documented assessment. Patient and/or family updated on plan of care and expected duration. Pain level reassessed. Patient is alert, oriented x 3, equal unlabored respirations, skin warm/dry/pink. 04:00 Reassessment: Patient appears in no apparent distress at this time. No changes from vc1 previously documented assessment. Patient and/or family updated on plan of care and expected duration. Pain level reassessed. Patient is alert, oriented x 3, equal unlabored respirations, skin warm/dry/pink. 05:00 Reassessment: Patient appears in no apparent distress at this time. No changes from vc1 previously documented assessment. Patient and/or family updated on plan of care and expected duration. Pain level reassessed. Patient is alert, oriented x 3, equal unlabored respirations, skin warm/dry/pink. Vital Signs: 05/29 22:50 BP 172 / 75; Pulse 82; Resp 14; Temp 98.8(O); Pulse Ox 90% on R/A; Weight 167.83 kg; vc1 Height 5 ft. 2 in. ; Pain /10; 05/30 00:46 Pulse 67; Resp 17; Pulse Ox 97% ; ss 00:49 BP 148 / 86; ss 02:00 BP 138 / 66; Pulse 59; Resp 16; Pulse Ox 97% on 2.5 lpm NC; vc1 04:00 BP 122 / 63; Pulse 67; Resp 14; Pulse Ox 98% on 2.5 lpm NC; vc1 05:00 BP 139 / 52; Pulse 63; Resp 16; Pulse Ox 96% on 2.5 lpm NC; vc1 05/29 22:50 Body Mass Index 67.67 (167.83 kg, 157.48 cm) vc1 05/29 22:50 Pain Scale: Adult 1 ED Course: 05/29 22:48 Patient arrived in ED. rv1 22:48 Arm band placed on right wrist. ss 22:48 Patient has correct armband on for positive identification. Bed in low position. Call ss light in reach. Side rails up X2. bus monitor on. Pulse ox on. NIBP on. 22:51 Cosme Gross MD is Attending Physician. sp4 23:21 Chest Single View XRAY In Process Unspecified. EDMS 05/30 00:40 Rosy Newman, SHILOH is Primary Nurse. ss 00:43 Triage completed. ss 00:44 Inserted saline lock: 22 gauge in right antecubital area, using aseptic technique. vc1 Blood collected. Flushed with 10 mL NS. 00:45 Maintain EMS IV. Dressing intact. Good blood return noted. Gauge \\T\\ site: 18 G LAC. vc1 Flushed with 10 mL NS Changed dressing on left antecubital Pt allergic to adhesives, changed to paper tape. 02:45 Al Esteves MD is Hospitalizing Provider. sp4 05:00 Provided Education on: call light. vc1 05:00 No provider procedures requiring assistance completed. Patient admitted, IV remains in vc1 place. 11:43 1143 CM met with patient at the bedside in the ED exam room. Patient identified by name ane and . Patient states she lives in a single story home and her grandson lives with her. She reports there are 2 steps to enter her home, one step up and one step down once inside. states "Someone is supposed to be building me a ramp. DME in the home includes a power chair, wheelchair, walker, and a walk in shower. She states she also has an oxygen concentrator that she uses at night, usually on 3.5 L. Patient states " I have "grabbers" in every room and that she uses a bidet to clean herself, that "it is so much easier than trying to use toilet paper." Patient states she has a nurse that visits once a week and used to have PT, but is unsure of the company these services are through. She also reports she has an aid that prepares meals twice a day. Mrs. Tai states prior to admission, she has difficulty performing ADLs when she is alone. She states a hospital bed is supposed to be delivered as well but she is unsure from who and that her daughter will know what other services she has. 1220 CM spoke to patient's daughter Ely Ortez at [phone]. Demographic sheet confirmed and changes sent to appropriate personnel. Ely confirms that [facility] sent a ramp for patient's home but it was too short and now they are awaiting a new one. She also confirms that there are 2 aids, one in the morning and one in the afternoon that prepare meals and a nurse from [facility] visits once a week. Ely explains that has been been temporarily staying with her because 's home is awaiting repair. There is no running water due to underground pipes being broken. Ely states it has been difficult to help Mrs. Tai, as her wheelchair and power chair do not fit in her bathrooms. Ely reports used to have PT through [facility], and they were going to request it be reordered by Dr. Salas prior to this admission. Ely states she is unsure how safe it is for to be alone and would prefer for her to build up some strength. She explains that Mrs. Tai's is at [facility] and perhaps could rehabilitate at the same place. Ely apologized for being "emotional", that "if she could see him" but was unsure if [facility] could accommodate bariatric patients. CM team will continue to follow and coordinate care. Administered Medications: 00:47 Drug: morphine IVP or IV 2 mg IVP once over 4 mins Route: IVP; Infused Over: 4 mins; ss Site: right antecubital; 01:15 Follow up: Response: No adverse reaction; No change in condition vc1 00:48 Drug: Ibuprofen PO 800 mg PO once Route: PO; ss 01:15 Follow up: Response: No adverse reaction; No change in condition vc1 00:48 Drug: NS 0.9% IV 1000 ml IV at 125 ml/hr continuous Route: IV; Rate: 125 ml/hr; Site: ss right antecubital; 06:41 Follow up: IV Status: Infusion continued upon admission vc1 00:48 Drug: Ondansetron IVP 4 mg IVP once; over 2 minutes Route: IVP; Site: right antecubital;ss 01:15 Follow up: Response: No adverse reaction; No change in condition vc1 02:19 Drug: Rocephin - Rocephin (cefTRIAXone) IVPB 1 grams IVPB once over 30 mins; (mix in 50 vc1 mL NS) Route: IVPB; Infused Over: 30 mins; Site: right antecubital; 02:49 Follow up: IV Status: Completed infusion; IV Intake: 50ml vc1 03:22 Drug: vancoMYCIN IVPB 2 grams IVPB at calculated rate once Route: IVPB; Rate: vc1 calculated rate; Site: right antecubital; 05:20 Follow up: IV Status: Completed infusion; IV Intake: 500ml vc1 Medication: 05:00 VIS not applicable for this client. vc1 Point of Care Testing: Blood Glucose: 00:46 Blood Glucose: 216 mg/dL; ss 00:46 has monitor, used pt reading ss Ranges: Intake: 02:49 IV: 50ml; Total: 50ml. vc1 05:20 IV: 500ml; Total: 550ml. vc1 Outcome: 02:46 Decision to Hospitalize by Provider. sp4 05:00 Admitted to ER Hold. Please see [facility] for further documentation. vc1 05:00 Condition: good 05:00 Instructed on the need for admit, 14:57 Patient left the ED. ph Signatures: Dispatcher [employer] EDMS Rosy Newman RN RN ss Ayala Zendejas RN RN ph Calcote, Vanessa, RN RN vc1 Lakshmi Chavez1 Cosme Gross MD MD sp4 Opal Cheng RN RN ane Corrections: (The following items were deleted from the chart) 06:35 00:44 Inserted saline lock: 22 gauge in right antecubital area, using aseptic vc1 technique. Blood collected. Flushed with 10 mL NS 06: 00:45 Maintain EMS IV. Dressing intact. Good blood return noted. Gauge \\T\\ site: 18 G vc1 LAC. Flushed with 10 mL NS Changed dressing on left antecubital Pt allergic to adhesives, changed to paper tape 05/29 22:50 Chief complaint: EMS states: toned out for nausea and fever. Took home vc1 covid test today and tested positive 05/30 06:05/29 22:50 Coronavirus screen: Vaccine status: Patient reports being unvaccinated. vc1 Client denies travel out of the [place] in the last 14 days. chills, cough unrelated to allergies, difficulty breathing, fatigue, fever, headache, muscle pain, nausea, shortness of breath, sore throat, Client presents with at least one sign or symptom that may indicate coronavirus-19. Standard/surgical mask placed on the client. Provider contacted for isolation considerations. 05/30 06:05/29 22:50 Ebola Screen: Patient negative for fever greater than or equal to 101.5 vc1 degrees Fahrenheit, and additional compatible Ebola Virus Disease symptoms Patient denies exposure to infectious person. Patient denies travel to an Ebola-affected area in the 21 days before illness onset. No symptoms or risks identified at this time. 05/30 06:05/29 22:50 Initial Sepsis Screen: Does the patient meet any 2 criteria? No. Patient's vc1 initial sepsis screen is negative. Does the patient have a suspected source of infection? No. Patient's initial sepsis screen is negative. 05/30 06:05/29 22:50 Risk Assessment: Do you want to hurt yourself or someone else? Patient vc1 reports no desire to harm self or others. 05/30 06:05/29 22:50 Onset of symptoms is unknown. [facility] 05/30 06:05/29 22:50 Care prior to arrival: Medication(s) given: zofran 4 mg, 1G ofirmev IV vc1 initiated. 18 GA, in the left antecubital area, 05/30 06:05/29 22:50 Activity prior to arrival: None. [facility] 05/30 06:05/29 22:50 Mechanism of Injury: No Mechanism of Injury [facility] 05/30 06:36 05/29 22:50 Transition of care: patient was not received from another setting of care. [facility] 05/30 06:05/29 22:50 Method Of Arrival: EMS: [facility] 05/30 06:05/29 22:50 BP 172 / 75; Pulse 82bpm; Resp 14bpm; Pulse Ox 90% RA; Temp 98.8F Oral; vc1 167.83 kg; Height 5 ft. 2 in.; BMI: 67.6; Pain 5/10, Adult; 05/30 06:05/29 22:50 Acuity: VALERIA 3 [facility]
[2024-05-30] MEDS ORDERED: ALBUTEROL 2.5 MG/3 ML NEB SOL NEB PRN (03:47)
[2024-05-30] MEDS ORDERED: ONDANSETRON 4 MG/2 ML VIAL IV PRN (03:47)
[2024-05-30] MEDS ORDERED: IPRATROPIUM BROM 0.5MG/2.5ML NEB PRN (03:47)
--- NOTE | 2024-05-30 03:47 | P.HP ---
Certification for Inpatient Patient admitted to: Inpatient With expected LOS: >2 Midnights Practitioner: I am a practitioner with admitting privileges, knowledge of patient current condition, hospital course, and medical plan of care. Services: Services provided to patient in accordance with Admission requirements found in Title 42 Section 412.3 of the Code of Federal Regulations Patient History Date of Service: 05/31/24 Reason for admission: SOB History of Present Illness: 84 yrs old Female with past medical history of Atrial Fib; Congestive heart failure; Diabetes mellitus; Fibromyalgia; CAD, history of myocardial infarction who was brought to ER with generalized weakness and shortness of breath which has been progressively worsening over the last few days. Associated with subjective fever and chills. Denies any nausea or vomiting. Associated with cough and worsening of shortness of breath. Denies any chest pain. No sick contacts. Patient was assessed in the ER and found to be having COVID 19 positive and was also found to be hypoxic and placed on oxygen supplementation and was admitted for further management. Allergies aspirin [From Percodan] Allergy (Verified 01/08/20 02:05) Anaphylaxis cefazolin [From Ancef] Allergy (Verified 01/08/20 02:05) Anaphylaxis codeine Allergy (Verified 01/08/20 02:05) Anaphylaxis fentanyl Allergy (Verified 01/08/20 02:05) Anaphylaxis hydrocodone Allergy (Verified 01/08/20 02:05) Anaphylaxis oxycodone [From Percodan] Allergy (Verified 01/08/20 02:05) Anaphylaxis propoxyphene [From Darvon] Allergy (Verified 01/08/20 02:05) Anaphylaxis tramadol Allergy (Verified 01/08/20 02:05) Anaphylaxis Home medications list reviewed: Yes Home Medications: Donepezil HCl [Aricept] 10 mg PO DAILY 01/08/20 Ergocalciferol (Vitamin D2) [Vitamin D2] 1,000 unit PO SEECOM 01/08/20 Pramipexole [Mirapex*] 0.5 mg PO PRN PRN 01/08/20 Insulin Lispro [Humalog] See Rx Instructions .ROUTE .COMPLEX 05/30/24 Sacubitril/Valsartan [Entresto 97 mg-103 mg Tablet] 24 mg PO BID 05/30/24 - Past Medical/Surgical History Diabetic: Yes Past Medical History: Reviewed- Non-Contributory -: Type 2 diabetes -: Hypertension -: Restless leg syndrome -: Dementia -: Atrial fibrillation -: Coronary artery disease -: [place] 2000 Past Surgical History: Reviewed- Non-Contributory -: Hysterectomy -: Appendectomy -: Cardiac catheterization with stent placement times 10 - Family History Family History: Reviewed- Non-Contributory - Family History Mother -: Heart disease - Social History Smoking Status: Never smoker Alcohol use: No CD- Drugs: No Caffeine use: Yes Review of Systems 10-point ROS is otherwise unremarkable Physical Examination - Vital Signs Temperature: 98.2 F Blood Pressure: 136/62 Pulse: 76 Respirations: 18 Pulse Ox (%): 94 - Physical Exam General: Alert, Oriented x3, Cooperative, Mild distress HEENT: Atraumatic, Normocephalic Neck: Supple Respiratory: Diminished, Crackles/rales Cardiovascular: No edema, Regular rate/rhythm, Normal S1 S2 Capillary refill: <2 Seconds Gastrointestinal: Soft and benign, W/out hepatosplenomegaly Musculoskeletal: No clubbing, No swelling Integumentary: No rashes, No breakdown Neurological: Normal speech, Normal strength at 5/5 x4 extr Lymphatics: No axilla or inguinal lymphadenopathy - Studies Laboratory Data (last 24 hrs) 05/30/24 05/30/24 05/30/24 00:00 00:00 00:00 WBC 2.90 L Hgb 13.4 Hct 39.9 Plt Count 129 L PT 11.9 INR 1.06 APTT 26.5 Sodium 133 L Potassium 4.0 BUN 12 Creatinine 0.66 Glucose 176 H Total Bilirubin 0.7 AST 37 ALT 29 Alkaline Phosphatase 82 Microbiology Data (last 24 hrs): 05/30/24 00:00 Nasopharnyx Influenza Type A Antigen Screen - Final 05/30/24 00:00 Nasopharnyx Influenza Type B Antigen Screen - Final Assessment and Plan - Plan COVID Multifocal pneumonia Acute hypoxic respiratory failure Obesity UTI Atrial fibrillation Oxygen supplementation Will try to wean down oxygen requirement Continue home medications Titrate as needed Started on steroids Started on IV antibiotic for UTI Monitor closely on telemetry Rate controlled GI/DVT prophylaxis Advanced directive full code Discharge Plan: Home Plan to discharge in: Greater than 2 days - Advance Directives Does patient have a Living Will: No Does patient have a Durable POA for Healthcare: No - Code Status/Comfort Care Code Status: Full Code Time Spent Managing Pts Care (In Minutes): 48
[2024-05-30] MEDS ORDERED: NA CHLORIDE 0.9% 250 ML ONE (08:34)
[2024-05-30] MEDS ORDERED: dexAMETHasone 10 MG/ML VIAL ONE (08:34)
[2024-05-30] MEDS ORDERED: ENOXAPARIN 40 MG/0.4 ML SQ ONE (08:34)
[2024-05-30] MEDS ORDERED: AZITHROMYCIN 500 MG INJ IVPB ONE (08:34)
--- NOTE | 2024-05-30 08:50 | RAD REPORT ---
EXAM: XR Chest, 1 View CLINICAL HISTORY: The patient is 84 years old and is Female; CHEST PAIN TECHNIQUE: Frontal view of the chest. COMPARISON: No relevant prior studies available. FINDINGS: Lungs: Mildly prominent interstitial markings. No consolidation. Pleural space: Unremarkable. No pneumothorax. Heart: Unremarkable. Mediastinum: Unremarkable. Normal mediastinal contour. Bones/joints: No acute findings. IMPRESSION: Mildly prominent interstitial markings. No consolidation. Electronically signed by: Sae Guo MD 05/29/2024 11:43 PM CDT Due to temporary technical issues with PACS / Fluency reporting system, reports are being signed by the in-house radiologist without review as a courtesy to ensure prompt reporting. The interpreting radiologist is fully responsible for the content of the report. Transcribed Date/Time: 05/30/2024 8:49 AM
[2024-05-30] MEDS: ENOXAPARIN 40 MG/0.4 ML SQ SCH (09:00)
[2024-05-30] MEDS: dexAMETHasone 10 MG/ML VIAL IV SCH (09:00)
[2024-05-30] MEDS: AZITHROMYCIN IV 500 MG in NA CHLORIDE 0.9% 250 ML IVPB SCH (09:00)
[2024-05-30] MEDS ORDERED: GLUCAGON 1 MG/VIAL IM PRN (13:43)
[2024-05-30] MEDS ORDERED: D50W 25 GM/50 ML SYRINGE IV PRN (13:43)
[2024-05-30] MEDS ORDERED: D10W 125 ML IV PRN (13:49)
[2024-05-30] MEDS: INSULIN 70/30 100 UNITS/ML SQ SCH ×2 (14:15→16:00)
--- NOTE | 2024-05-30 16:56 | EKG ---
Test Date: 2024-05-29 Test Time: 23:00:58 Risk Adjustment Specialist: GIOVANNA MEASUREMENT RESULTS: Intervals: Rate: 72 WA: 218 QRSD: 86 QT: 398 QTc: 435 [place]: P: -8 WA: 218 QRS: -51 T: 79 INTERPRETIVE STATEMENTS: Sinus rhythm with 1st degree AV block Left axis deviation Anterolateral infarct, age undetermined Abnormal ECG Compared to ECG 08/27/2023 09:54:13 Atrial premature complex(es) no longer present Myocardial infarct finding still present Electronically Signed On 05-30-24 16:54:42 CDT by Madhu Shaw
[2024-05-30] MEDS: HUMALOG MIX SQ SCH (18:07)
[2024-05-30] MEDS: CEFTRIAXONE 1,000 MG in NA CHLORIDE 0.9% 50 ML IVPB SCH (19:49)
[2024-05-30] MEDS: ACETAMINOPHEN 325 MG TABLET PO PRN (19:49)
[2024-05-30] MEDS: NIRMATRELVIR/RITONAVIR TABLET PO SCH (21:10)
[2024-05-31 03:57] VITALS: BMI 67.6
[2024-05-31 04:51] LABS: Absolute Lymphocytes (CBC) 0.5 K/uL (0.7-4.9); Absolute Monocytes 0.5 K/uL (0.1-1.3); Absolute Neutrophil 2.5 K/uL (1.8-8.0); Basophils % 0.3 % (0-1.3); Hematocrit 38.1 % (36.0-45.0); Hemoglobin 12.9 g/dL (12.0-15.0); Lymphocytes % 15.5 % (15.3-44.8); MCH 30.4 pg (27.0-35.0); MCHC 33.9 g/dL (32.0-36.0); MCV 89.5 fL (80-100); MPV 8.2 fL (7.6-11.3); Monocytes % 14.4 % (3.3-12.3); Neutrophils % 69.8 % (41.7-73.7); Nucleated Red Blood Cells % 0.1 % (0-0); Platelets 122 thou/uL (152-406); RBC Red Blood Cell Count 4.26 M/uL (3.86-4.86); Red Cell Distribution Width 13.6 % (12.1-15.2)
[2024-05-31 05:09] LABS: Albumin 2.9 g/dL (3.4-5.0); Albumin/Globulin Ratio 0.7 (1.1-1.8); Bilirubin Total 0.5 mg/dL (0.2-1.0); Globulin 3.9 g/dL (2.3-3.5); Protein, Total 6.8 g/dL (6.4-8.2)
[2024-05-31] MEDS: INSULIN REGULAR (HUMAN) 100 UNIT/ML SQ SCH (08:31)
--- NOTE | 2024-05-31 08:32 | P.PN ---
Date of Service: 05/31/24 Subjective Admitted for COVID-pneumonia, O2 keep sats greater than 92%, no respiratory distress Review of Systems Review of symptoms negative unless listed in HPI Physical Examination - Vital Signs Reviewed - Physical Exam General: Alert, In no apparent distress, Oriented x3 HEENT: Atraumatic, Normocephalic, PERRLA Neck: Supple, 2+ carotid pulse no bruit Respiratory: Crackles, Normal air movement Cardiovascular: No edema, Normal pulses, Regular rate/rhythm, Normal S1 S2 Capillary refill: <2 Seconds Gastrointestinal: Soft, nontender Musculoskeletal: No clubbing, No swelling, No contractures Integumentary: No rashes, No breakdown, No significant lesion Neurological: Normal gait, Normal speech, Normal strength at 5/5 x4 extr Lymphatics: No axilla or inguinal lymphadenopathy Assessment And Plan - Plan Acute COVID Acute multifocal pneumonia Acute hypoxic respiratory failure secondary to COVID, pneumonia Chronic obesity Acute UTI Oxygen supplementation Will try to wean down oxygen requirement Continue home medications Titrate as needed Started on steroids Started on IV antibiotic, azithromycin, ceftriaxone Control Atrial Fib RVR History congestive heart failure; History of CAD, history of MA Resume appropriate home meds, telemetry Diabetes mellitus; Accu-Cheks, sliding scale insulin Thrombocytopenia Trend platelet fibromyalgia; Fall precautions, as needed analgesia GI/DVT prophylaxis Advanced directive full code Dispo: Pending hospital course, Time spent with patient 30 minutes
--- NOTE | 2024-06-01 05:42 | P.PN ---
Date of Service: 06/01/24 Subjective Admitted for COVID-pneumonia, Pending discharge to long term facility Review of Systems Review of symptoms negative unless listed in HPI Physical Examination - Vital Signs Reviewed - Physical Exam General: Alert, oriented x 3, afebrile, obese HEENT: Atraumatic, Normocephalic, PERRLA Neck: Supple, 2+ carotid pulse no bruit Respiratory: Crackles, Normal air movement, unlabored Cardiovascular: No edema, Normal pulses, Regular rate/rhythm, Capillary refill: <2 Seconds Gastrointestinal: Soft, nontender Musculoskeletal: No clubbing, No swelling, No contractures, moderate generalized weak Integumentary: No rashes, No breakdown, No significant lesion Neurological: Normal gait, Normal speech, Normal strength at 5/5 x4 extr Assessment And Plan - Plan Acute COVID Acute multifocal pneumonia Acute hypoxic respiratory failure secondary to COVID, pneumonia Chronic obesity Acute UTI Oxygen supplementation Will try to wean down oxygen requirement Continue home medications Titrate as needed Started on steroids Started on IV antibiotic, azithromycin, ceftriaxone Control Atrial Fib RVR History congestive heart failure; History of CAD, history of [place] Resume appropriate home meds, telemetry Gentle diuretics Diabetes mellitus; Accu-Cheks, sliding scale insulin Thrombocytopenia Platelets fibromyalgia; Fall precautions, as needed analgesia GI/DVT prophylaxis Advanced directive full code Dispo: Pending hospital course, Time spent with patient 20 minutes
[2024-06-02] MEDS: guaiFENesin 100 MG/5 ML UCUP PO PRN (00:50)
--- NOTE | 2024-06-02 05:50 | P.PN ---
Date of Service: 06/02/24 Subjective Pending discharge planning long-term facility authorization Review of Systems Review of symptoms negative unless listed in HPI Physical Examination - Vital Signs Reviewed - Physical Exam General: Alert, In no apparent distress, Oriented x3 HEENT: Atraumatic, Normocephalic, PERRLA Neck: Supple, 2+ carotid pulse no bruit Respiratory: Crackles, Normal air movement Cardiovascular: No edema, Normal pulses, Regular rate/rhythm, Normal S1 S2 Capillary refill: <2 Seconds Gastrointestinal: Soft, nontender Musculoskeletal: No clubbing, No swelling, No contractures Integumentary: No rashes, No breakdown, No significant lesion Neurological: Normal gait, Normal speech, Normal strength at 5/5 x4 extr Lymphatics: No axilla or inguinal lymphadenopathy Assessment And Plan - Plan Acute COVID improved Acute multifocal pneumonia improved Acute hypoxic respiratory failure secondary to COVID, pneumonia Morbid obesity Acute UTI resolved Oxygen supplementation Will try to wean down oxygen requirement Continue home medications Titrate as needed Started on steroids Started on IV antibiotic, azithromycin, ceftriaxone Acute episode of V. tach Acute hypomagnesia Trend electrolytes replace as needed Beta-francisco added Cardiology consulted Control Atrial Fib RVR History congestive heart failure; History of CAD, history of [place] Resume appropriate home meds, telemetry Diabetes mellitus; Accu-Cheks, sliding scale insulin Thrombocytopenia Trend platelet fibromyalgia; Fall precautions, as needed analgesia GI/DVT prophylaxis Advanced directive full code Dispo: Pending hospital course, Time spent with patient 30 minutes
[2024-06-02 08:40] LABS: Absolute Lymphocytes (CBC) 1.1 K/uL (0.7-4.9); Absolute Monocytes 0.6 K/uL (0.1-1.3); Absolute Neutrophil 3.7 K/uL (1.8-8.0); Basophils % 0.4 % (0-1.3); Eosinophils % 0.7 % (0-4.4); Hematocrit 38.8 % (36.0-45.0); Hemoglobin 13.1 g/dL (12.0-15.0); Lymphocytes % 19.5 % (15.3-44.8); MCH 30.2 pg (27.0-35.0); MCHC 33.8 g/dL (32.0-36.0); MCV 89.4 fL (80-100); MPV 8.3 fL (7.6-11.3); Monocytes % 10.4 % (3.3-12.3); Platelets 127 thou/uL (152-406); RBC Red Blood Cell Count 4.34 M/uL (3.86-4.86); Red Cell Distribution Width 13.7 % (12.1-15.2)
[2024-06-02 08:53] LABS: Anion Gap 7.1 mEq/L (5.0-15.0); Potassium 4.1 mEq/L (3.5-5.1)
[2024-06-02] MEDS: KETOROLAC 30 MG/ML INJ IV SCH (10:46)
[2024-06-02] MEDS ORDERED: predniSONE 20 MG TAB PO ONE (10:48)
[2024-06-02] MEDS: Magnesium Sulfate 2gm IVPB 2 G/50 ML BAG IV SCH (13:17)
[2024-06-02] MEDS: METOPROLOL TAR 50 MG TAB PO SCH (13:18)
[2024-06-02] MEDS: predniSONE 20 MG TAB PO SCH (13:18)
[2024-06-02] MEDS: FUROSEMIDE 40 MG/4 ML VIAL IV SCH (17:50)
--- NOTE | 2024-06-02 20:00 | CON ---
Date of Consultation: 06/02/2024 Reason For Consultation: Short run of nonsustained ventricular tachycardia. History Of Present Illness: This is an 84-year-old male with history of atrial fibrillation, congest jade heart failure, diabetes, coronary artery disease, who presented with shortness of breath for a fe w days, cough, and fever, was diagnosed with COVID-19 related pneumonia. While on the telemetry, he had a short run of nonsustained ventricular tachycardia. The patient is asymptomatic with it. Past Medical History: As outlined above in the HPI. Medications: Refer to reconciliation sheet for detailed list. Allergies: LONG LIST OF ALLERGIES WAS REVIEWED INCLUDING THE CEFAZOLIN AND ASPIRIN. Family History: No premature coronary artery disease or cancer. Social History: Does not smoke or drink. Does not use any drugs. Review of Systems: All systems reviewed and they are negative except as mentioned in the HPI. Physical Examination: Vital Signs: Reviewed. Head and Neck: Pupils are equal, reactive to light. Intact eye movements. No JVD. No cervical lym phadenopathy. Neck is supple. Thyroid is not enlarged. Lungs: Rhonchi bilaterally. No accessory muscle use or muscle retraction. Heart: Regular rate and rhythm. No extra sounds. Abdomen: Soft, nontender. Bowel sounds positive. No organomegaly. No masses or hernia. No rigidi ty or rebound. Extremities: Mild edema. No clubbing or cyanosis. Intact pulses. Skin: No rash. No nodule. Neurologic: Alert, awake. No acute focal deficits appreciated. Investigations: BUN 13, creatinine 0.57, magnesium is 1, and hemoglobin is 13.1. Assessment And Recommendations: 1.Ventricular tachycardia, nonsustained, likely due to the current status of infection with COVID-19 plus electrolyte abnormalities. His magnesium is very low. Recommend to replace magnesium to get t he level above 2. Keep monitoring on telemetry. On echo, his ejection fraction is normal. After co rrection of electrolytes if he continues to have short runs of ventricular tachycardia, then recommen d beta-francisco. 2.COVID-19 multifocal pneumonia, on high-flow oxygen and antibiotics. 3.Acute respiratory failure, on IV antibiotics and steroids. 4.Atrial fibrillation. Heart appears to be in sinus rhythm now. Continue home medications. SR/MODL Voice ID: [id number] Report ID: [id number]
[2024-06-03] MEDS: HYDRALAZINE HCL 20 MG/ML VIAL IV PRN (03:36)
--- NOTE | 2024-06-03 06:35 | P.PN ---
Date of Service: 06/03/24 Subjective Hyperglycemia, patient reluctant to take high sliding scale, Encouraged to be out of bed to chair 3 times daily Review of Systems Review of symptoms negative unless listed in HPI Physical Examination - Vital Signs Reviewed - Physical Exam General: Alert, In no apparent distress, Oriented x3 obesity HEENT: Atraumatic, Normocephalic, PERRLA Neck: Supple, 2+ carotid pulse no bruit Respiratory: Crackles, Normal air movement Cardiovascular: No edema, Normal pulses, Regular rate/rhythm, Normal S1 S2 Capillary refill: <2 Seconds Gastrointestinal: Soft, nontender Musculoskeletal: No clubbing, No swelling, No contractures Integumentary: No rashes, No breakdown, No significant lesion Neurological: Normal gait, Normal speech, Normal strength at 5/5 x4 extr Lymphatics: No axilla or inguinal lymphadenopathy Assessment And Plan - Plan Acute COVID Acute multifocal pneumonia Acute hypoxic respiratory failure secondary to COVID, pneumonia Chronic obesity Acute UTI Oxygen supplementation Will try to wean down oxygen requirement Continue home medications Titrate as needed Started on steroids Started on IV antibiotic, azithromycin, ceftriaxone Control Atrial Fib RVR History congestive heart failure; History of CAD, history of [place] Resume appropriate home meds, telemetry Diabetes mellitus with hyperglycemia Accu-Cheks, sliding scale insulin Elected to take sliding scale insulin fibromyalgia; Fall precautions, as needed analgesia GI/DVT prophylaxis Advanced directive full code Dispo: Pending hospital course, Time with patient 35 minutes
[2024-06-03 06:52] LABS: Anion Gap 8.9 mEq/L (5.0-15.0); Magnesium 2.1 mg/dL (1.6-2.4); Potassium 3.9 mEq/L (3.5-5.1)
[2024-06-03] MEDS: POTASSIUM CL SA 10 MEQ TAB PO ONE (08:42)
[2024-06-03] MEDS: DONEPEZIL HCL 5 MG TAB PO SCH (08:42)
[2024-06-03] MEDS: METOPROLOL TARTRATE 5 MG/5 ML INJ IV STA (09:15)
[2024-06-03] MEDS: MAGNESIUM SULFATE 1 gm IVPB 1 GM/100 ML BAG IV ONE (09:15)
[2024-06-03 11:33] LABS: Specific Gravity 1.008 (1.005-1.030); Urine Bilirubin NEGATIVE (Negative); Urine Blood Negative (Negative); Urine Clarity Clear (Clear); Urine Color Colorless (Yellow); Urine Glucose TRACE (Negative); Urine Ketones NEGATIVE (Negative); Urine Microscopic Reflex YN NO UMIC; Urine Nitrite NEGATIVE (Negative); Urine Protein NEGATIVE (Negative); Urine Urobilinogen Normal (Normal)
[2024-06-03] MEDS: ENOXAPARIN 60 MG/0.6 ML SQ SCH (21:00)
[2024-06-04] MEDS: METOPROLOL XL 25 MG TAB PO SCH (05:13)
[2024-06-04 06:40] LABS: Absolute Eosinophils 0.1 K/uL (0-0.5); Absolute Lymphocytes (CBC) 1.4 K/uL (0.7-4.9); Absolute Monocytes 0.7 K/uL (0.1-1.3); Absolute Neutrophil 4.1 K/uL (1.8-8.0); Basophils % 0.4 % (0-1.3); Eosinophils % 2.1 % (0-4.4); Hematocrit 42.5 % (36.0-45.0); Hemoglobin 14.4 g/dL (12.0-15.0); Lymphocytes % 21.8 % (15.3-44.8); MCH 30.3 pg (27.0-35.0); MCV 89.2 fL (80-100); MPV 8.3 fL (7.6-11.3); Monocytes % 11.1 % (3.3-12.3); Neutrophils % 64.6 % (41.7-73.7); Platelets 193 thou/uL (152-406); RBC Red Blood Cell Count 4.76 M/uL (3.86-4.86); Red Cell Distribution Width 13.8 % (12.1-15.2)
[2024-06-04 06:59] LABS: Anion Gap 6.8 mEq/L (5.0-15.0); Potassium 3.8 mEq/L (3.5-5.1)
--- NOTE | 2024-06-04 07:21 | P.PN ---
Date of Service: 06/04/24 Subjective Hyperglycemia, patient reluctant/refusing hospital to take high sliding scale insulin, Encouraged to be out of bed to chair 3 times daily Review of Systems Review of symptoms negative unless listed in HPI Physical Examination - Vital Signs Reviewed - Physical Exam General: Alert, In no apparent distress, Oriented x3 obesity HEENT: Atraumatic, Normocephalic, PERRLA Neck: Supple, 2+ carotid pulse no bruit Respiratory: Crackles, Normal air movement, unlabored Cardiovascular: No edema, Normal pulses, Regular rate/rhythm, Normal S1 S2 Capillary refill: <2 Seconds Gastrointestinal: Soft, nontender Musculoskeletal: No clubbing, No swelling, No contractures Integumentary: No rashes, No breakdown, No significant lesion Neurological: Normal gait, Normal speech, Normal strength at 5/5 x4 extr Lymphatics: No axilla or inguinal lymphadenopathy Assessment And Plan - Plan Acute COVID Acute multifocal pneumonia Acute hypoxic respiratory failure secondary to COVID, pneumonia Chronic obesity Acute UTI Oxygen supplementation Will try to wean down oxygen requirement Continue home medications Titrate as needed Started on steroids Started on IV antibiotic, azithromycin, ceftriaxone Control Atrial Fib RVR History congestive heart failure; History of CAD, history of [place] Resume appropriate home meds, telemetry Diabetes mellitus with hyperglycemia Accu-Cheks, sliding scale insulin Elected to take sliding scale insulin Increased to high sliding scale, A1c Restless leg fibromyalgia; Fall precautions, as needed analgesia GI/DVT prophylaxis Advanced directive full code Dispo: Pending hospital course, Time with patient 35 minutes
[2024-06-04] MEDS: INSULIN REGULAR (HUMAN) 100 UNIT/ML SQ SCH (07:30)
--- NOTE | 2024-06-04 07:52 | RAD REPORT ---
Procedure: Chest Single View History: Chest pain Comparison: May 29, 2024 The lungs appear clear of acute infiltrate. No significant pleural effusion noted. The heart is mildly enlarged IMPRESSION: No acute abnormality is displayed.
[2024-06-04] MEDS: BISACODYL E.C. 5 MG TAB PO ONE (12:10)
[2024-06-04] MEDS: MAGNESIUM SULFATE 1 gm IVPB 1 GM/100 ML BAG IV ONE (12:12)
--- NOTE | 2024-06-05 07:07 | ECHO ---
HEIGHT: 5 ft 2 in WEIGHT: 370 lb 0 oz DATE OF STUDY: 06/02/[address]: Madonna Del Rosario MD 2-DIMENSIONAL: YES M.MODE: YES DOPPLER: YES COLOR FLOW: YES TDS: YES PORTABLE: YS DEFINITY: BUBBLE STUDY: DIAGNOSIS: VENTRICULAR TACHYCARDIA - NON SUSTAINED CARDIAC HISTORY: CATHERIZATION: SURGERY: PROSTHETIC VALVE: PACEMAKER: MEASUREMENTS (cm) DIASTOLIC (NORMALS) SYSTOLIC (NORMALS) IVSd 1.1 (0.6-1.2) LA Diam 3.1 (1.9-4.0) LVEF 55-60% LVIDd 4.5 (3.5-5.7) LVIDs 3.1 (2.0-3.5) %FS 31% LVPWd 1.4 (0.6-1.2) Ao Diam 2.6 (2.0-3.7) 2 DIMENSIONAL ASSESSMENT: RIGHT ATRIUM: NORMAL LEFT ATRIUM: NORMAL RIGHT VENTRICLE: NORMAL LEFT VENTRICLE: NORMAL TRICUSPID VALVE: MILD TRICUSPID REGURGITATION MITRAL VALVE: MILD MITRAL REGURGITATION PULMONIC VALVE: NOT SEEN AORTIC VALVE: NORMAL PERICARDIAL EFFUSION: NONE AORTIC ROOT: NORMAL LEFT VENTRICULAR WALL MOTION: NORMAL DOPPLER/COLOR FLOW: SEE BELOW COMMENTS: 1. NORMAL LEFT VENTRICULAR EJECTION FRACTION 55-60% 2. MODERATE DIASTOLIC DYSFUNCTION 3. MILD MITRAL REGURGITATION 4. MILD TRICUSPID REGURGITATION TECHNOLOGIST: CAMILO ONEIL/ SUKHDEEP COSTA
--- NOTE | 2024-06-05 09:07 | P.PN ---
Date of Service: 06/04/24 Spoke with patient today. She actually is now considering going home and she feels like she has a "over quite significantly. She did work with physical therapy in the morning if she is doing well she will prefer to go home instead of going to a correction facility..
--- NOTE | 2024-06-05 10:15 | P.PN ---
Subjective Date of Service: 06/05/24 Chief Complaint: SOB Subjective: No new changes, No C/O voiced, Tolerating diet, Ambulating, Improving Review of Systems 10-point ROS is otherwise unremarkable Physical Examination - Vital Signs Temperature: 97 F Blood Pressure: 153/60 Pulse: 65 Respirations: 12 Pulse Ox (%): 95 - Physical Exam General: Alert, In no apparent distress HEENT: Atraumatic, PERRLA, EOMI Neck: Supple, JVD not distended Respiratory: Clear to auscultation bilaterally, Normal air movement Cardiovascular: Regular rate/rhythm, Normal S1 S2 Gastrointestinal: Normal bowel sounds, No tenderness Musculoskeletal: No tenderness Integumentary: No rashes Neurological: Normal speech, Normal tone, Normal affect Lymphatics: No axilla or inguinal lymphadenopathy - Studies Medications List Reviewed: Yes Assessment And Plan - Current Problems (Diagnosis) (1) NSVT (nonsustained ventricular tachycardia) Current Visit: Yes Status: Acute Plan: no more arrhythmia seen, occasional PVCs. Increase Toprol XL to 50 mg daily continue to monitor and correct electrolytes (2) Atrial fibrillation Current Visit: No Status: Acute Plan: rate controlled. Eliquis 5 mg po BID Increase Toprol XL to 50 mg daily (3) CHF exacerbation Current Visit: No Status: Acute Plan: can switch to Lasix 40 mg po on discharge.
[2024-06-05] MEDS: PRAMIPEXOLE 0.25 MG TAB PO PRN (10:17)
[2024-06-05 13:24] VITALS: TEMP 97.3; O2SAT 96
--- NOTE | 2024-06-05 13:28 | P.DS ---
Admission Date: 05/30/24 Discharge Date: 06/05/24 Disposition: ROUTINE DISCHARGE Discharge Condition: GOOD Reason for Admission: SOB Brief History of Present Illness: 84 yrs old Female with past medical history of Atrial Fib; Congestive heart failure; Diabetes mellitus; Fibromyalgia; CAD, history of myocardial infarction who was brought to ER with generalized weakness and shortness of breath which has been progressively worsening over the last few days. Associated with subjective fever and chills. Denies any nausea or vomiting. Associated with cough and worsening of shortness of breath. Denies any chest pain. No sick con tacts. Patient was assessed in the ER and found to be having COVID 19 positive and was also found to be hypoxic and placed on oxygen supplementation and was admitted for further management. Hospital Course: Pt is an 84yo female with past medical history of Atrial Fib, Congestive heart failure, Diabetes mellitus, Fibromyalgia, and CAD s/p myocardial infarction who presented with generalized weakness and shortness of breath. The symptoms progressively worsened and became associated with subjective fever and chills. On admission, lab studies showed positive COVID 19. CXR was unremarkable. We gave iv steroid, rocephin, azithro, oxygen and prn duoneb. Pt was weaned off oxygen and the symptoms resolved. She initially wanted to got to SNF but pt changed her mind and requested to be discharged home meds for other chronic medical problems. Pt was in NAD prior to discharge. Vital Signs/Physical Exam: Temp Pulse Resp BP Pulse Ox 97.3 F 59 12 118/65 97 06/05/24 12:00 06/05/24 12:00 06/05/24 12:00 06/05/24 12:00 06/05/24 12:00 Laboratory Data at Discharge: WBC 6.40 thou/uL (4.3-10.9) 06/04/24 06:28 Hgb 14.4 g/dL (12.0-15.0) 06/04/24 06:28 Hct 42.5 % (36.0-45.0) 06/04/24 06:28 Plt Count 193 thou/uL (152-406) 06/04/24 06:28 PT 11.9 SECONDS (9.4-12.5) 05/30/24 00:00 INR 1.06 05/30/24 00:00 APTT 26.5 SECONDS (24.3-36.9) 05/30/24 00:00 Sodium 133 mEq/L (136-145) L 06/04/24 06:28 Potassium 3.8 mEq/L (3.5-5.1) 06/04/24 06:28 BUN 20 mg/dL (7-18) H 06/04/24 06:28 Creatinine 0.65 mg/dL (0.55-1.02) 06/04/24 06:28 Glucose 166 mg/dL (74-106) H 06/04/24 06:28 Magnesium Cancelled 06/04/24 10:37 Total Bilirubin 0.5 mg/dL (0.2-1.0) 05/31/24 04:27 AST 33 U/L (15-37) 05/31/24 04:27 ALT 29 U/L (13-56) 05/31/24 04:27 Alkaline Phosphatase 89 U/L (45-117) 05/31/24 04:27 Home Medications: Donepezil HCl [Aricept] 10 mg PO DAILY 01/08/20 Ergocalciferol (Vitamin D2) [Vitamin D2] 1,000 unit PO SEECOM 01/08/20 Pramipexole [Mirapex*] 0.5 mg PO PRN PRN 01/08/20 Insulin Lispro [Humalog] See Rx Instructions .ROUTE .COMPLEX 05/30/24 Sacubitril/Valsartan [Entresto 97 mg-103 mg Tablet] 24 mg PO BID 05/30/24 Ascorbic Acid/Ascorbate Sodium [Vitamin C 500 mg Tablet Chew] 500 mg PO DAILY 7 Days #7 tab.chew 06/05/24 Zinc Sulfate [Zinc Sulfate*] 220 mg PO BID 7 Days #14 cap 06/05/24 predniSONE [Prednisone*] 20 mg PO BID 7 Days #14 tab 06/05/24 New Medications: predniSONE [Prednisone*] 20 mg PO BID 7 Days #14 tab Ascorbic Acid/Ascorbate Sodium [Vitamin C 500 mg Tablet Chew] 500 mg PO DAILY 7 Days #7 tab.chew Zinc Sulfate [Zinc Sulfate*] 220 mg PO BID 7 Days #14 cap Physician Discharge Instructions: Continue ad li activity as tolerated. Wear mask at home until 06/12/24. Follow up with PCP within 1 - 2 weeks. Diet: AHA Activity: Ad sondra Followup: Isabella Salas [Primary Care Provider] - 1-2 Weeks
[2024-06-05 17:34] VITALS: BP 118/49
== END 2024-06-05 18:10 | disposition home health service (06) | DRG 177 ==
LOC: ER 22:46 → ERHOLD 05-30 03:47 → 2ND 05-30 14:14
PROVIDERS: ADMIT Family Medicine; ATTEND Hospitalist
DX: U07.1 COVID-19 (principal); I50.31 Acute diastolic (congestive) heart failure; J96.01 Acute respiratory failure with hypoxia; J12.82 Pneumonia due to coronavirus disease 2019; Z68.44 Body mass index [BMI] 60.0-69.9, adult; N39.0 Urinary tract infection, site not specified; I47.20 Ventricular tachycardia, unspecified; E66.01 Morbid (severe) obesity due to excess calories; I48.91 Unspecified atrial fibrillation; E86.0 Dehydration; D69.6 Thrombocytopenia, unspecified; I49.3 Ventricular premature depolarization; M79.7 Fibromyalgia; E11.65 Type 2 diabetes mellitus with hyperglycemia; G25.81 Restless legs syndrome; I25.10 Atherosclerotic heart disease of native coronary artery without angina pectoris; F03.90 Unspecified dementia, unspecified severity, without behavioral disturbance, psychotic disturbance, mood disturbance, and anxiety; I25.2 Old myocardial infarction; Z88.5 Allergy status to narcotic agent; Z88.6 Allergy status to analgesic agent; Z95.5 Presence of coronary angioplasty implant and graft; Z88.8 Allergy status to other drugs, medicaments and biological substances; Z79.4 Long term (current) use of insulin; Z79.52 Long term (current) use of systemic steroids; Z90.49 Acquired absence of other specified parts of digestive tract; Z28.310 Unvaccinated for COVID-19; Z79.899 Other long term (current) drug therapy; Z90.710 Acquired absence of both cervix and uterus
CPT/HCPCS: 36415; 71045; 80048; 80053; 81001; 81003; 82947; 83036; 83605; 83735; 83880; 84145; 84484; 85025; 85610; 85730; 87040; 87804; 87811; 93005; 93306; 96361; 96365; 96367; 96375; 97161; 97530; 99285; J0360; J0696; J1100; J1650; J1815; J1940; J2270; J2405; J3475; J7030; J7040; J7050; J7512; J7613; J8499